=== PATIENT | female | born 1960 | race Caucasian/White ===

== ENCOUNTER 2017-06-11 21:09 | Emergency (ER) | payer MEDICAID, SELFPAY ==
[2017-06-11 21:12] VITALS: BP 141/75; PULSE 87; RESP 16; TEMP 37.1; O2SAT 95; BMI 35.2
--- NOTE | 2017-06-11 21:48 | ED.VISSUMM ---
- ER Visit Summary Date of Service: 06/11/17 Chief Complaint: [] Concern for allergic reaction History of Present Illness: The patient is a 56 F [] complaining of concern for allergic reaction to Lyrica for several days to weeks. Patient reports she takes it for fibromyalgia. She reports she is still taking it. She denies chest pain or difficulty swallowing. She has not intact tracheostomy tube that she reports has been in for 2 years. She is speaking full sentences. She has a bizarre affect. Physical Examination: [] Afebrile, vital signs stable. Morbidly obese female no acute distress. HEENT reveals moist mucous membranes without any oropharyngeal erythema or swelling. There is no rash or lesions around the neck or tracheostomy tube. Cardiovascular exam is regular rate and rhythm. Lungs are clear to auscultation. Abdomen is soft and nontender. Test Results: [] None. Emergency Department Course and Treatment: [] I encouraged the patient to discontinue Lyrica if she is concerned that she is allergic to it. She was given a albuterol and DuoNeb aerosol as well as an IM shot of Kenalog. I do not feel any diagnostic or laboratory testing was warranted and I encouraged the patient to follow-up with her primary care physician. Treatment Plan: [] See above. Disposition: [] Discharge, stable. Impression: [] Allergic reaction to medication This note was generated with [employer] dictation software. It may contain incorrect words, spelling, and punctuation that were not noted in review of the chart prior to signing ED Disposition - Plan for ED Patient: Chief Complaint: Allergic Reaction Referrals: Vivian Meyer MD [Primary Care Provider] -
--- NOTE | 2017-06-11 21:53 | ED.DEP ---
ED Disposition - Plan for ED Patient: Disposition: Home or Assisted Living Chief Complaint: Allergic Reaction Instructions: ED Drug React Allergic Referrals: Vivian Meyer MD [Primary Care Provider] -
[2017-06-11] MEDS: Triamcinolone Acetonide 40 MG/ML Vial 80 MG IM (21:58)
[2017-06-11] MEDS: Ipratropium/Albuterol Sulfate 3 ML AMPUL.NEB INHALATION (22:31)
[2017-06-11 22:32] VITALS: PULSE 80; RESP 18
[2017-06-11 22:45] VITALS: BP 115/64; PULSE 81; RESP 21; O2SAT 94
== END 2017-06-11 22:45 | disposition home or self-care (01) ==
PROVIDERS: Emergency Provider Emergency Medicine; Family Provider Internal Medicine; PCP Internal Medicine
DX: R06.00 Dyspnea, unspecified (principal); T42.6X5A Adverse effect of other antiepileptic and sedative-hypnotic drugs, initial encounter; Y92.9 Unspecified place or not applicable; M79.7 Fibromyalgia; E66.01 Morbid (severe) obesity due to excess calories; Z68.35 Body mass index [BMI] 35.0-35.9, adult; Z79.899 Other long term (current) drug therapy
CPT/HCPCS: 94640; 96372; 99282

== ENCOUNTER 2017-08-28 13:11 | Emergency (ER) | payer MEDICAID, SELFPAY ==
[2017-08-28 13:12] VITALS: BP 165/81; PULSE 93; RESP 18; TEMP 36.6; O2SAT 99; BMI 34.7
[2017-08-28 13:36] VITALS: BP 143/72; PULSE 88; RESP 14; O2SAT 95
[2017-08-28] MEDS: Albuterol 2.5 MG/3 ML VIAL.NEB. INHALATION (14:25)
[2017-08-28] MEDS: Ipratropium/Albuterol Sulfate 3 ML AMPUL.NEB INHALATION (14:25)
[2017-08-28 14:26] VITALS: PULSE 95; RESP 18
--- NOTE | 2017-08-28 14:46 | RAD_ITS ---
STUDY: X-RAY CHEST REASON FOR EXAM: Female, 56 years old. Persistent cough and wheezing. COPD. TECHNIQUE: PA and lateral views of the chest. COMPARISON: Comparison is made with prior study dated December 31, 2013. FINDINGS: There is mild elevation of the right hemidiaphragm. Stable blunting of the right costophrenic angle. No acute mouth is seen. There is no demonstrated pleural abnormality. Normal size heart. A loop recorder device is seen. Normal mediastinum and erick. Normal visualized pulmonary arteries. There is atherosclerotic tortuosity of the aortic arch and descending thoracic aorta. There is demineralization of the osseous structures. Increased kyphosis. Normal visualized ribs, clavicles, and shoulders. There is no demonstrated abnormality of the visualized soft tissue structures of the upper abdomen. RAD/Chest PA and Lateral IMPRESSION: No acute abnormality is seen. Electronically Signed: Joshua Cabral MD at 15:17 EDT Tel [phone], Service support ,
--- NOTE | 2017-08-28 15:25 | ED.VISSUMM ---
- ER Visit Summary Date of Service: 08/28/17 Chief Complaint: [cough, wheezing] History of Present Illness: The patient is a 56 F [that cough and wheezing for the last several weeks. She is currently on antibiotics from her [facility] physician. She had her tracheostomy removed 2 weeks ago. No difficulty breathing or shortness of breath. She denies any chest pain. No trach site drainage. She has a history of asthma and COPD. She appears well and in no acute distress. She has no other complaints.] Physical Examination: [General: The patient appears well and in no apparent distress. Patient is resting comfortably on cart. Skin: Warm, dry, no pallor noted. No rash. Head: Normocephalic, atraumatic Neck: Supple, nontender. ENT: Moist mucus membranes, pharynx within normal limits. Prior trach site benign. Cardiovascular: Regular Rate and Rhythm, no gallups or rubs Respiratory: Patient is in no distress, no accessory muscle use, lungs are clear to auscultation, no wheezing, rales or rhonchi Musculoskeletal: normal ROM, no deformity, no tenderness, no swelling. 2+ radial and DP pulses symmetric. GI: No tenderness to palpation, no masses appreciated. No rebound, guarding, or rigidity noted. Neurological: A&O, normal strength and sensation. Psychiatric: Cooperative] Test Results: [Chest x-ray no acute process] Emergency Department Course and Treatment: [She shows no acute process. She was ordered breathing treatments. She requested a decongestant and will be given a dose of Sudafed. I instructed her to finish her course of antibiotics and follow closely with her primary provider. I will write her a prescription for Mucinex. She was instructed to return with any new or worsening symptoms. Patient discharged home in stable condition.] Treatment Plan: [see above] Disposition: [discharge home] Impression: [URI, Cough] This note was generated with [employer] dictation software. It may contain incorrect words, spelling, and punctuation that were not noted in review of the chart prior to signing ED Disposition - Plan for ED Patient: Disposition: Home or Assisted Living Chief Complaint: Cold Sx Instructions: ED Upper Resp Infec Abx Tx Prescriptions: Guaifenesin [Mucinex] 600 mg PO BID #10 tab.er.12h Referrals: Vivian Meyer MD [Primary Care Provider] - Anthony Talavera MD [STAFF PHYSICIAN] -
[2017-08-28 15:37] VITALS: BP 145/77; PULSE 85; RESP 16
== END 2017-08-28 15:41 | disposition home or self-care (01) ==
PROVIDERS: Emergency Provider Emergency Medicine; Family Provider Internal Medicine; PCP Internal Medicine
DX: J06.9 Acute upper respiratory infection, unspecified (principal); J44.9 Chronic obstructive pulmonary disease, unspecified; Z87.891 Personal history of nicotine dependence
CPT/HCPCS: 71046; 94640; 99282

== ENCOUNTER → 2017-11-08 14:30 | Outpatient (CLI) | payer MEDICAID, SELFPAY | PROVIDERS: Family Provider Internal Medicine; PCP Internal Medicine; Visit Provider Internal Medicine Cardiovascular Disease | DX: Z01.810 Encounter for preprocedural cardiovascular examination (principal) | CPT/HCPCS: 93306; Q9957; A4216; C8929 ==

== ENCOUNTER 2017-12-04 06:42 | Day surgery (SDC) | payer MEDICAID, SELFPAY ==
[2017-11-28 15:16] VITALS: BP 140/64; PULSE 83; RESP 16; TEMP 36.5; O2SAT 95; BMI 36.3
[2017-11-28 17:50] LABS: Hematocrit 36.4 % (37-47); Hemoglobin 11.2 g/dl (12.0-15.0); Mean Corp Hgb Conc 30.8 g/gl (32-36); Mean Corpuscular Hgb 28.5 pg (27.0-32.0); Mean Corpuscular Volume 92.6 fL (81-99); Mean Platelet Vol. 10.4 fl (6.2-12.0); Platelet Count 187 K/mm3 (150-450); RBC Distribution Width CV 14.1 % (11.6-14.6); RBC Distribution Width SD 46.4 fl (35.1-43.9); Red Blood Count 3.93 M/mm3 (4.2-5.4); White Blood Count 6.4 K/mm3 (4.4-11.0)
[2017-11-28 17:52] LABS: Scan Indicated on CBC? Y/N NO
[2017-11-28 18:09] LABS: Anion Gap 8 (5-15); BUN 13 mg/dL (7-18); BUN/Creat Ratio 12.4 RATIO (10-20); Calcium,Total 8.7 mg/dL (8.5-10.1); Chloride 107 mmol/L (98-107); Creatinine, Serum 1.05 mg/dL (0.55-1.02); EST Glomerular Filtration Rate 57 mL/min (>60); Est Glom Filt Rate - Afr Amer 69 mL/min (>60); Estimated Creatinine Clearance 51.91 ml/min; Glucose 218 mg/dL (74-106); Potassium 3.9 mmol/L (3.5-5.1); Sodium Level 141 mmol/L (136-145)
--- NOTE | 2017-12-04 06:53 | EKG12_ITS ---
Test Reason : PREOP Blood Pressure : / mmHG Vent. Rate : 079 BPM Atrial Rate : 079 BPM P-R Int : 176 ms QRS Dur : 128 ms QT Int : 414 ms P-R-T Axes : 040 000 018 degrees QTc Int : 474 ms Normal sinus rhythm Right bundle branch block Abnormal ECG When compared with ECG of 16-NOV-2016 20:45, Right bundle branch block is now Present Confirmed by ELVA BLACKWELL, EVENS ([id number]), desk editor ABHISHEK GONZALES ([id number]) on 12/05/2017 2:58:56 PM Referred By: Anthony Talavera Confirmed By:EVENS STEVENSON MD
[2017-12-04 07:16] LABS: Bedside Glucose 333 mg/dL (70-110)
[2017-12-04 07:22] VITALS: BP 150/70; PULSE 81; RESP 16; TEMP 36.6; O2SAT 95; BMI 35.3
--- NOTE | 2017-12-04 09:15 | FIST_PTH ---
PATIENT: CHRISTOPHER HOBSON LOC: [facility] [place] U#:[id number] AGE/SX: 57/F ROOM: RE12/04/[address]: Dr. Anthony Talavera MD : [id number] BED: DIS: 12/04/2017 SPEC #: [id number] RECD: 12/04/17 12:36 STATUS: INA REBrittany #: [id number] PARADISE: 12/04/17 09:[address]: Anthony Talavera DEPT: SURGICAL PATHOLOGY RECD BY: Cristopher Goodson ENTERED: 12/04/17 12:54 SP TYPE: Fistula OTHR DR: Dr. 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 SJ:herman 12/05/17 MICROSCOPIC DESCRIPTION Slides are reviewed. GROSS DESCRIPTION Received in fixative is one container labeled with the patient's name and designated tracheocutaneous fistula. The specimen consists of a piece of pink soft tissue measuring 1.5 x 1 x 0.5 cm. The specimen is serially sectioned and submitted entirely in one cassette. / SJ:rg 12/04/17 TC:3 CPT: 58882
--- NOTE | 2017-12-04 11:37 | DCINST_ITS ---
You will use the following diet at home:: Regular Discharge Activity: May Shower Additional Activity Instructions:: Follow up tomorrow with Dr. Talavera for dressing removal. Keep dressing dry Allergies/Adverse Reactions: Allergies azithromycin Allergy (Verified 11/28/17 14:47) Rash Cephalosporins Allergy (Verified 11/28/17 14:47) Rash codeine Allergy (Verified 11/28/17 14:47) Rash diclofenac [Diclofenac] Allergy (Verified 11/28/17 14:47) Rash hydrocodone bitartrate [From Vicodin] Allergy (Verified 11/28/17 14:47) Rash hydromorphone HCl [From Dilaudid] Allergy (Verified 11/28/17 14:47) Rash Opioids - Morphine Analogues Allergy (Verified 11/28/17 14:47) Rash Penicillins Allergy (Verified 11/28/17 14:47) Anaphylaxis Sulfa (Sulfonamide Antibiotics) Allergy (Verified 11/28/17 14:47) Rash cherries Allergy (Uncoded 11/28/17 14:47) Angioedema philomena Allergy (Uncoded 11/28/17 14:47) Angioedema pears Adverse Reaction (Uncoded 11/28/17 14:47) Unknown soap Adverse Reaction (Uncoded 11/28/17 14:47) Unknown patient states i cannot use hand soap. I have to use body soap. Medications to take at Discharge Topiramate [Topamax] 100 mg PO BID 03/01/17 Guaifenesin [Mucinex] 600 mg PO BID #10 tab.er.12h 08/28/17 hydrocortisone 2.5 % topical cream 1 applic TOPICAL DAILY 30 Days #30 10/31/17 insulin glargine (U-100) 100 unit/mL (3 mL) subcutaneous pen 17 unit SC QHS 10/31/17 ipratropium-albuterol 0.5 mg-3 mg(2.5 mg base)/3 mL nebulization soln 3 ml INHALATION 4X/DAY 10/31/17 magnesium 64 mg (magnesium chloride) tablet,delayed release 64 mg PO BID 30 Days #60 10/31/17 thiothixene 2 mg capsule 2 mg PO DAILY 30 Days #30 10/31/17 trazodone 100 mg tablet 300 mg PO QHS 30 Days #90 10/31/17 glimepiride 4 mg tablet 4 mg PO DAILY 30 Days #30 11/01/17 Amitriptyline HCl [Elavil] 25 mg PO QHS 11/28/17 Melatonin/Pyridoxine [Melatonin 5 mg Tablet] 2 each PO QHS 11/28/17 Omeprazole [Prilosec] 20 mg PO DAILY 12/04/17 Primary Care Physician: Vivian Meyer MD [Primary Care Provider] - Test Results: Test results from this visit will be discussed in further detail at your follow- up appointment, if applicable.
[2017-12-04 11:38] VITALS: BP 150/70; BP 155/78; PULSE 107; RESP 16; TEMP 37; O2SAT 98
--- NOTE | 2017-12-04 11:43 | PCM.OPRPT ---
Report of Operation Date of Procedure: 12/04/17 Pre-Operative Diagnosis: tracheocutaneous fistula Post-Operative Diagnosis: same Surgery/Procedure Performed:: Closure tracheocutaneous fistula Description of Surgical Findings:: as above Type of Anesthesia:: General Anesthesiologist: Solo Sandoval Specimen's removed: fistula Drains: vascular loop Estimated Blood Loss (mL): minimal Description of Procedure: The patient was taken to the OR on 12/04/17. She was placed in the supine position on the OR table. She was given sufficient general endotracheal anesthesia. The neck was extended. The skin of the neck and stoma were prepped and draped steriley. 1% lidocaine with epinephrine (1:[id number]). was injected into the tissue around the skin. I then had anesthesia deflate the balloon to verify that ventilation with a deflated cuff caused air to leak from the stoma. This was indeed the case. Next, I made an elliptical incision with a 15 blade in a horizontal fashion. The incision as carried down through the skin. Hemostasis was achieved with monopolar cautery. I then used cautery and sharp dissection to establish a plane around the fistula tract. The tract was controlled with allis clamps and eventually the dissection was carried down to the front face of the trachea. Next, I dissected out the left and right strap muscles. The right strap muscles were much easier to skeletonize secondary to scarring. I also dissected scar and adipose in a plane superficial to the straps. Then, I placed 3, 3-0 silk retention sutures on the outer aspect of the fistula. Next, I placed a bowen tip suction through fistula and onto the endotracheal tube. The fistula tract was excised superficial to the retention sutures with a 15 blade. I then used 4-0 PDS suture to close the fistula. This was done in an interrupted, vertical mattress fashion to imbricate the lining toward the trachea. Once this was completed, I filled the wound with saline. We closed the patients mouth and nose and hand bagged (ventilated) the patient to a pressure of 30 cm of H2O. No bubbles were visualized in the wound. We repeated this and again saw no bubbles in the wound. Next, I swung the strap flaps medial and tacked them together with interrupted 4-0 vicryl. The retention sutures were removed. The leak test was then repeated with saline in the wound and again there were no bubbles visualized. I then closed the adipose over the midline with 4-0 vicryl. I placed a vascular loop beneath the adipose layer. The subcutaneous tissue was closed with 4-0 vicryl. The skin was closed with 5-0 interrupted Nylon. The drain was sewn to the skin with the nylon. A pressure dressing was applied. The patient was awoken and brought to the recovery room in stable condition. Blood loss minimal, replacement none. Sponge, needle and instrument count were correct at the end of the procedure.
[2017-12-04 11:45] VITALS: BP 150/70; BP 160/86; PULSE 103; RESP 16; O2SAT 96
[2017-12-04 11:57] VITALS: BP 150/70; BP 151/77; PULSE 102; RESP 16; TEMP 36.9; O2SAT 92
[2017-12-04 12:11] LABS: Bedside Glucose 285 mg/dL (70-110)
[2017-12-04 12:30] LABS: Bedside Glucose 267 mg/dL (70-110)
[2017-12-04 12:39] VITALS: BP 148/78; BP 150/70; PULSE 78; RESP 18; TEMP 36.6; O2SAT 97
== END 2017-12-04 12:45 | disposition home or self-care (01) ==
LOC: SDC 06:43 → AC 06:43
PROVIDERS: Family Provider Internal Medicine; PCP Internal Medicine; Visit Provider Otolaryngology
PROC: (CPT 31825; principal; 2017-12-04 09:00)
DX: J95.04 Tracheo-esophageal fistula following tracheostomy (principal); I10 Essential (primary) hypertension; E78.00 Pure hypercholesterolemia, unspecified; F20.9 Schizophrenia, unspecified; K21.9 Gastro-esophageal reflux disease without esophagitis; E11.9 Type 2 diabetes mellitus without complications; Z95.0 Presence of cardiac pacemaker; Z79.4 Long term (current) use of insulin; Z79.899 Other long term (current) drug therapy; Z87.891 Personal history of nicotine dependence
CPT/HCPCS: 31825; 36415; 80048; 82962; 85027; 88304; 93005; J7120; J2405

== ENCOUNTER → 2017-12-11 18:13 | Outpatient (CLI) | payer MEDICAID, SELFPAY | PROVIDERS: Family Provider Internal Medicine; PCP Internal Medicine; Referring Provider Otolaryngology Otolaryngology/Facial Plastic Surgery; Visit Provider Otolaryngology Otolaryngology/Facial Plastic Surgery | DX: J95.09 Other tracheostomy complication (principal) | CPT/HCPCS: 87070; 87186 ==

== ENCOUNTER → 2018-01-10 13:42 | Outpatient (CLI) | payer MEDICAID, SELFPAY ==
[2018-01-10 14:50] LABS: Amphetamine Urine VISTA NEGATIVE (<1000 ng/mL); Barbiturate Urine VISTA NEGATIVE (< 200 ng/mL); Benzodiazepine Urine VISTA NEGATIVE (< 200 ng/mL); Cocaine Urine VISTA NEGATIVE (< 300 ng/mL); Ecstacy Urine VISTA NEGATIVE (< 500 ng/mL); Methadone Urine VISTA NEGATIVE (< 300 ng/mL); PCP Urine VISTA NEGATIVE (< 25 ng/mL); THC Urine VISTA NEGATIVE (< 50 ng/mL); Vista UDS pH Range 6
== END ==
PROVIDERS: Family Provider Internal Medicine; PCP Internal Medicine; Referring Provider Anesthesiology Pain Medicine; Visit Provider Anesthesiology Pain Medicine
DX: F11.20 Opioid dependence, uncomplicated (principal)
CPT/HCPCS: 80307

== ENCOUNTER → 2018-02-22 20:00 | Outpatient (CLI) | payer MEDICAID, SELFPAY | PROVIDERS: Family Provider Internal Medicine; PCP Internal Medicine; Referring Provider Internal Medicine Pulmonary Disease; Visit Provider Internal Medicine Pulmonary Disease | DX: G47.33 Obstructive sleep apnea (adult) (pediatric) (principal) | CPT/HCPCS: 95811 ==

== ENCOUNTER → 2018-03-07 10:52 | Outpatient (CLI) | payer MEDICAID, SELFPAY ==
--- NOTE | 2018-03-07 11:30 | MRI_ITS ---
STUDY: MRI LUMBAR SPINE WITHOUT CONTRAST REASON FOR EXAM: Female, 57 years old. Back and leg pain. Pain all over x5-6 years. TECHNIQUE: Standardized fat and water weighted pulse sequences were obtained in the sagittal and axial planes. COMPARISON: CT abdomen and pelvis with contrast 09/19/2016. FINDINGS: T11-T12: (Sagittal only). Minimal anterior marginal spurs. Normal endplates. Mild disc space height narrowing. Tiny posterior bulging disc. Normal central canal and bilateral intervertebral neural foramina. T12-L1: (Sagittal only). Normal endplates. Normal disc height, hydration and morphology. Normal central canal and bilateral intervertebral neural foramina. Normal lumbar lordosis. There is no substantial scoliosis. Normal conus medullaris that terminates at the T12-L1 disc level. L1-2: Normal endplates. Normal disc height, hydration and morphology. Normal bilateral facet joints. Normal central canal and bilateral lateral recesses. Normal bilateral intervertebral neural foramina. L2-3: Normal endplates. Normal disc height and morphology. Small posterior bulging disc. Normal central canal and bilateral lateral recesses. Normal facet joints. Normal bilateral intervertebral neural foramina. L3-4: Normal endplates. Normal disc height, hydration and morphology. Normal bilateral facet joints. Normal central canal and bilateral lateral recesses. Normal bilateral intervertebral neural foramina. Bilateral renal cysts are visible at this level. L4-5: Normal endplates. Normal disc height. Small posterior bulging disc. Normal central canal and bilateral lateral recesses. Normal facet joints. Normal bilateral intervertebral neural foramina. L5-S1: Normal endplates. Mild disc space height narrowing. Small posterior bulging disc. Normal central canal and bilateral lateral recesses. Normal facet joints. Normal bilateral intervertebral neural foramina. Normal visualized sacral ala. Normal visualized paraspinous soft tissue structures. MRI/Spine Lumbar (Routine) IMPRESSION: 1. No MRI evidence of lumbar extruded disc fragment, spinal stenosis or nerve root displacement. 2. Small posterior bulging discs at T11-T12, L2-L3, L4-L5 and L5-S1 disc space levels. 3. No significant interval changes when compared to CT of the abdomen and pelvis dated 09/19/2016. Electronically Signed: Addi Collazo MD at 12:23 EST , Service support ,
--- OUTSIDE RECORDS SUMMARY | 2018-05-24 22:26 | XMS RPT_ITS ---
:1960 Author Organization OHIP Support Name Relationship Address Phone D Unavailable Unavailable Unavailable JOCE ALPHONSO Unavailable [id number] + [place] [address] D Unavailable Unavailable Unavailable JOCE ALPHONSO Unavailable [address] + [place] [address] D Unavailable Unavailable Unavailable JOCE, ALPHONSO Unavailable [address] +[phone] [place] [address] D Unavailable Unavailable Unavailable JOCE, ALPHONSO Unavailable [address] + [place] [address] D Unavailable Unavailable Unavailable JOCE, ALPHONSO Unavailable [address] + [place] [address] D Unavailable Unavailable Unavailable JOCE, ALPHONSO Unavailable [address] + [place] [address] D Unavailable Unavailable Unavailable JOCE, ALPHONSO Unavailable [address] + [place] [address] D Unavailable Unavailable Unavailable JOCE, ALPHONSO Unavailable [address] + [place] [address] D Unavailable Unavailable Unavailable JOCE, ALPHONSO Unavailable [address] + [place] [address] D Unavailable Unavailable Unavailable JOCE, ALPHONSO Unavailable [address] + [place] [address] D Unavailable Unavailable Unavailable JOCE, ALPHONSO Unavailable [address] + [place] [address] D Unavailable Unavailable Unavailable JOCE, ALPHONSO Unavailable [address] + [place] [address] D Unavailable Unavailable Unavailable JOCE, ALPHONSO Unavailable [address] + [place] [address] D Unavailable Unavailable Unavailable JOCE, ALPHONSO Unavailable [address] + [place] [address] Care Team Providers Name Role Phone Kg Smalls Attending Unavailable Kg Smalls Referring Unavailable Talampas, Tiff Primary Care Unavailable Basali, Bethanie Attending Unavailable Basali, Ayman Referring Unavailable Talampas, Tiff Primary Care Unavailable Elisabeth Chapman Attending Unavailable Talampas, Tiff Referring Unavailable Talampas, Tiff Primary Care Unavailable Carla Delcid Attending Unavailable Talampas, Tiff Primary Care Unavailable Markus Vega Attending Unavailable Gemini Ramirez Attending Unavailable Spring, Braden Attending Unavailable Talampas, Tiff Referring Unavailable Talampas, Tiff Primary Care Unavailable Spring, Braden Attending Unavailable Spring, Braden Referring Unavailable Talampas, Tiff Primary Care Unavailable Elisabeth Chapman Attending Unavailable Talampas, Tiff Referring Unavailable Talampas, Tiff Primary Care Unavailable SadafAnthony navarro Attending Unavailable Sadaf, Anthony Referring Unavailable Talampas, Tiff Primary Care Unavailable Spring, Braden Attending Unavailable Spring, Braden Referring Unavailable Sadaf, Keyur Attending Unavailable Talampas, Tiff Primary Care Unavailable SadafTenzinun Referring Unavailable BasaliBethanie Attending Unavailable Basali, Ayman Referring Unavailable Talampas, Tiff Primary Care Unavailable Spring, Braden Attending Unavailable Sadaf, Anthony Referring Unavailable KAREL MCNAIR ([place]) Referring Unavailable TARAKJIPROMISE Referring Unavailable SHANT ODELL Referring Unavailable SHEILA MATTHEW (HEAD MILLER) Attending Unavailable SHEILA MATTHEW (HEAD MILLER) Referring Unavailable KG ALVAREZ R Attending Unavailable KG ALVAREZ R Referring Unavailable GILDEKG Tafoya R Attending Unavailable WANDADEKG Tafoya R Referring Unavailable TALAMPAS, TIFF D Attending Unavailable OLDERSHEILA ([facility]) Attending Unavailable SHANT ODELL Referring Unavailable KG SMALLS Attending Unavailable KG SMALLS Referring Unavailable OLDERSHEILA (HEAD M[employer]ER) Attending Unavailable TALAMPAS, TIFF D Referring Unavailable TALAMPAS, TIFF D Referring Unavailable TALAMPAS, TIFF D Referring Unavailable TALAMPAS, TIFF D Referring Unavailable SUZANNA ESCALANTE Attending Unavailable SHEILA MATTHEW ([facility]) Referring Unavailable DEVEN QUINTANA Referring Unavailable MARBIN GRIMES ([facility]) Attending Unavailable TALAMPAS, TIFF D Attending Unavailable TIFF PEARSON Referring Unavailable FORTINO BARTHOLOMEW (PA) Referring Unavailable KG SMALLS Attending Unavailable FORTINO BARTHOLOMEW (PA) Referring Unavailable KG SMALLS Referring Unavailable SHANT ODELL Referring Unavailable PROBLEMS PROBLEMS DATE TYPE CONDITION / CODE ATTENDING STATUS SOURCE 02/01/2018 Active Chronic obstructive NA Active [facility] pulmonary disease, Clinic Main unspecified / [place] J44.9(ICD-10) Repository 01/29/2018 Unknown F11.20 - Opioid Basali, Ayman Active [facility] dependence, Community uncomplicated / Hospital F11.20(ICD-10) Repository 12/20/2017 Active Unknown / UNK(Unknown) TESTRAKE, Active [facility] Main [place] Repository 01/12/2018 Unknown I45.10 - Unspecified [place], [place] Active [facility] right bundle-branch Community block / I45.10(ICD-10) Hospital Repository 01/12/2018 Unknown R94.31 - Abnormal [place], [place] Active [facility] electrocardiogram Community [ECG] [EKG] / Hospital R94.31(ICD-10) Repository 11/15/2017 Active Mastodynia / NA Active [facility] N64.4(ICD-10) Clinic Main [place] Repository 11/14/2017 Active 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 Clinic Main / Z79.899(ICD-10) [place] Repository 11/14/2017 Active Abnormal level of NA Active [facility] blood mineral / Clinic Main R79.0(ICD-10) [place] Repository 11/01/2017 Unknown Z01.810 - Encounter [place], [place] Active [facility] for preprocedural [facility] cardiovascular Hospital examination / Repository Z01.810(ICD-10) 11/01/2017 Unknown Z95.0 - Presence of [place], [place] Active [facility] cardiac pacemaker / Community Z95.0(ICD-10) Hospital Repository 06/14/2017 Active Localized swelling, NA Active [facility] mass and lump, neck / Clinic Main R22.1(ICD-10) [place] Repository 07/06/2017 Unknown T42.6X5A - Adverse Ahmed, Rami Active [facility] effect of other Community antiepileptic and Hospital sedative-hypnotic Repository drugs, initial encounter / T42.6X5A(ICD-10) 06/02/2017 Active Encounter for NA Active [facility] examination for normal [facility] Main [facility] and control [place] in clinical research Repository program / Z00.6(ICD-10) PROCEDURES PROCEDURES No Procedure Records FoundRESULTS RESULTS OBSOLETE Observed: 03/21/2018 Status: COMPLETED Source: [place] 12:00 AM [facility] REPOSITORY Refill (INTMWS) CHRISTOPHER HOBSON ([id number]) 1960 F CHT Date Time Provider Department 03/21/18 TIFF PEARSON INTMWS During your visit today, we recorded the following information about you: Evelia Davison Psr 03/21/2018 1:40 PM Signed Patient has been identified by name and date of : Yes Pending Prescriptions Disp Refills GUAIFENESIN ER 600 MG TABLET, EXTENDED RELEASE 12 HR 60 tablet 1 Sig: Take by mouth twice daily. NUBIA: No RX INSTRUCTIONS: Patient aware RX will be sent to pharmacy. No need to notify patient. Evelia Davison Psr Susan Rosas RN 03/21/2018 1:56 PM Signed Patient has been identified by name and date of : Yes Patient phones for refill(s): Pending Prescriptions Disp Refills GUAIFENESIN ER 600 MG TABLET, EXTENDED RELEASE 12 HR 60 tablet 1 Sig: Take by mouth twice daily. NUBIA: No Date of last office visit in primary care: 01/24/18, future appt. 04/30/18 Last 2 Encounter Wt Readings: Date: Wt: 02/01/2018 100.7 kg (222 lb) 02/01/2018 99.8 kg (220 lb) Previous labs/tests for medication: Blood Pressure: BUN (mg/dL) Date Value 07/24/2017 13 Sodium (mmol/L) Date Value 07/24/2017 136 Last 1 Encounter BP Readings: Date: BP: 02/01/2018 132/68 Please advise. Thank you. Susan Pearson MD 03/21/2018 6:06 PM Signed lisa Murcia LPN 03/22/2018 9:14 AM Signed The following approved medication requests have been transmitted electronically. Signed Prescriptions Disp Refills guaiFENesin (MUCINEX) 600 mg 12 hr tablet 60 tablet 1 Sig: Take 1 tablet by mouth twice daily. NUBIA: No Authorizing Provider: TIFF PEARSON LPN Allergies As of Date: 03/21/2018 Noted Allergy Reaction CEPHALOSPORINS 04/03/2003 Comments: itching Cherries [Other] 04/03/2003 Comments: angioedema and tongue blisters CIPROFLOXACIN 09/11/2016 10 - Anaphylaxis Comments: It was used with flagyl at the same time so uknown which is the cause CODEINE 04/03/2003 Comments: rash swelling DICLOFENAC 08/28/2003 Comments: rash DILAUDID (HYDROMORPHONE (BULK)) 06/10/2015 9 - Itching FLAGYL (METRONIDAZOLE HCL) 09/11/2016 10 - Anaphylaxis Comments: It was used with flagyl at the same time so uknown which is the cause Philomena [Other] 04/03/2003 Comments: angioedematous tongue and blisters LYRICA (PREGABALIN) 07/04/2017 7 - Swelling OPIOIDS - MORPHINE ANALOGUES 08/28/2003 Comments: rash Pears [Other] 10/09/2003 PENICILLINS 04/03/2003 10 - Anaphylaxis Comments: ?anaphylaxis, patient tolerates zosyn PERCOCET (OXYCODONE-ACETAMINOPHEN)08/13/2004 9 - Itching SOAP 05/30/2006 VICODIN (HYDROCODONE-ACETAMINOPHE*05/21/2009 2 - Rash ZITHROMAX (AZITHROMYCIN) 03/24/2016 2 - Rash Date Reviewed: 02/08/2018 Reviewed by: Kg Smalls - Fully Assessed Reason for Visit: Refill Request [94] Order(s):guaiFENesin (MUCINEX) 600 mg 12 hr tabletTake 1 tablet by mouth twice daily.Disp: 60 tabletRfl: 1 Prescriptions as of 03/21/2018 Sig: GUAIFENESIN ER 600 MG TABLET,* Take 1 tablet by mouth twice * METRONIDAZOLE 500 MG TABLET Take 1 tablet by mouth three * COMPOUNDED PRESCRIPTION Diagnostic Polysomnogram. Luna* TAPENTADOL 75 MG TABLET Taking 1 twice a day per Dr B* COMPOUNDED PRESCRIPTION Overnight continuous pulse ox* GLIMEPIRIDE 4 MG TABLET Take 1 tablet by mouth daily * INSULIN GLARGINE (U-100) 100 * Inject 17 Units subcutaneousl* COMPOUNDED PRESCRIPTION Patient is to wear 2 L supple* COMPOUNDED PRESCRIPTION Provide nebulizer kit and becky* AMMONIUM LACTATE 12 % LOTION Apply 1 application to affect* LANCETS Test blood sugar(s) 4 times d* MOMETASONE-FORMOTEROL HFA 200* Inhale 2 Puffs as instructed * MAGNESIUM 71.5 MG (MAGNESIUM * Take 1 tablet by mouth twice * COMPOUNDED PRESCRIPTION Nocturnal oximetry on 2 L. DM* IPRATROPIUM-ALBUTEROL 0.5 MG-* Inhale 3 mL as instructed fou* HYDROCORTISONE 2.5 % TOPICAL * Apply 1 application to affect* TRIAMCINOLONE ACETONIDE 0.1 %* Apply 1 application to affect* ATORVASTATIN 40 MG TABLET Take 1 tablet by mouth once d* BLOOD SUGAR DIAGNOSTIC STRIPS Test blood sugar(s) 4 times d* PEN NEEDLE, DIABETIC 31 GAUGE* Use one needle per dose (Lant* OMEPRAZOLE 20 MG CAPSULE,DARREN* Take 1 capsule by mouth daily* ADHESIVE TAPE 2 X 10 YARD Use for dressings for healing* GUAIFENESIN ER 600 MG TABLET,* Take 1 tablet by mouth twice * MICONAZOLE NITRATE 2 % TOPICA* Apply 1 application to affect* BLOOD SUGAR DIAGNOSTIC STRIPS Test blood sugar(s) 4 times d* ALCOHOL SWABS Test blood sugars 4 x's daily* TRAZODONE 100 MG TABLET Take 3 tablets by mouth daily* TOPIRAMATE 100 MG TABLET Take 1 tablet by mouth once d* MELATONIN 3 MG TABLET Take 2 tablets by mouth daily* THIOTHIXENE 2 MG CAPSULE Take 1 capsule by mouth daily* VRAYLAR 3 MG CAPSULE Take 3 mg by mouth daily at b* WHITE PETROLATUM-MINERAL OIL * Apply 1 application to affect* TRIAMCINOLONE ACETONIDE 0.1 %* Apply 1 application to affect* SODIUM CHLORIDE 0.65 % NASAL * Use 1 [place] in the nose as ne* LUBRICANTS TOPICAL GEL Apply 1 application to affect* Problem List As Of Date 03/21/2018 Noted Resolved SCHIZOPHRENIA NEC [295.8] INVALID FOR* More... More... More... Tobacco use disorder [F17.200] INVALID FOR*11/18/2011 More... Routine general medical examination at a health*INVALID FOR*02/25/2013 More... MACULAR DEGENERATION NOS [H35.30] INVALID FOR* More... Diabetes mellitus type 2, uncontrolled, without*INVALID FOR* More... Class 2 obesity due to excess calories with bod*INVALID FOR*11/08/2016 More... More... Hyperlipidemia [E78.5] INVALID FOR* More... Sleep Apnea [G47.30] INVALID FOR* More... Asthma [J45.909] More... Ventral hernia [K43.9] INVALID FOR* Acute postoperative respiratory insufficiency [*INVALID FOR*07/19/2016 More... More... Electrolyte and fluid disorder [E87.8] INVALID FOR*03/03/2015 More... More... More... More... More... More... Septic shock due to Escherichia coli (HCC) [A41*INVALID FOR*07/19/2016 More... Altered mental status [R41.82] INVALID FOR*12/09/2015 More... Hyperbilirubinemia [E80.6] INVALID FOR*03/08/2015 More... Hypernatremia [E87.0] INVALID FOR*03/14/2015 More... More... More... Electrolyte imbalance [E87.8] INVALID FOR*07/19/2016 More... More... Metabolic acidosis [E87.2] INVALID FOR*03/19/2015 More... Acute kidney injury (HCC) [N17.9] INVALID FOR*03/19/2015 More... Small intestinal anastomotic leak [K91.89] INVALID FOR* More... Hypernatremia [E87.0] INVALID FOR*03/19/2015 More... 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 Medications Discontinued During This Encounter MUCINEX 600 mg 12 hr tablet 60 t* 1 01/09/2018 03/21/2018 Route: ORAL Sig: Take 1 tablet by mouth twice daily. Disc: Reason for discontinue is not on file. Encounter Status:Closed by ARTURO MURCIA LPN on 03/22/18 SPINE LUMBAR Observed: 03/07/2018 Status: F Source: [place] (ROUTINE) 11:13 AM [facility] REPOSITORY [facility] Imaging Services [address] [place] [id number] Spine Lumbar (Routine) MR#: [id number] Acct: [id number] Name: JOCECHRISTOPHER Michelet Rep #: [id number] : 1960 F 57 From: Addi Collazo MD PCP: Mitch BLACKWELL,Tiff Status: REG CLI Study: Spine Lumbar (Routine) Date of Exam: 03/07/18 Exam# [id number] Ordering Dr: Bethanie Trevizo MD STUDY: MRI LUMBAR SPINE WITHOUT CONTRAST REASON FOR EXAM: Female, 57 years old. Back and leg pain. Pain all over x5-6 years. TECHNIQUE: Standardized fat and water weighted pulse sequences were obtained in the sagittal and axial planes. COMPARISON: CT abdomen and pelvis with contrast 09/19/2016. FINDINGS: T11-T12: (Sagittal only). Minimal anterior marginal spurs. Normal endplates. Mild disc space height narrowing. Tiny posterior bulging disc. Normal central canal and bilateral intervertebral neural foramina. T12-L1: (Sagittal only). Normal endplates. Normal disc height, hydration and morphology. Normal central canal and bilateral intervertebral neural foramina. Normal lumbar lordosis. There is no substantial scoliosis. Normal conus medullaris that terminates at the T12-L1 disc level. L1-2: Normal endplates. Normal disc height, hydration and morphology. Normal bilateral facet joints. Normal central canal and bilateral lateral recesses. Normal bilateral intervertebral neural foramina. L2-3: Normal endplates. Normal disc height and morphology. Small posterior bulging disc. Normal central canal and bilateral lateral recesses. Normal facet joints. Normal bilateral intervertebral neural foramina. L3-4: Normal endplates. Normal disc height, hydration and morphology. Normal bilateral facet joints. Normal central canal and bilateral lateral recesses. Normal bilateral intervertebral neural foramina. Bilateral renal cysts are visible at this level. L4-5: Normal endplates. Normal disc height. Small posterior bulging disc. Normal central canal and bilateral lateral recesses. Normal facet joints. Normal bilateral intervertebral neural foramina. L5-S1: Normal endplates. Mild disc space height narrowing. Small posterior bulging disc. Normal central canal and bilateral lateral recesses. Normal facet joints. Normal bilateral intervertebral neural foramina. Normal visualized sacral ala. Normal visualized paraspinous soft tissue structures. MRI/Spine Lumbar (Routine) IMPRESSION: 1. No MRI evidence of lumbar extruded disc fragment, spinal stenosis or nerve root displacement. 2. Small posterior bulging discs at T11-T12, L2-L3, L4-L5 and L5-S1 disc space levels. 3. No significant interval changes when compared to CT of the abdomen and pelvis dated 09/19/2016. Electronically Signed: Addi Collazo MD at 12:23 EST , Service support , CC: Bethanie Trevizo MD; Tiff Pearson MD [employer] Machine Helper: Signed PING Observed: 02/23/2018 Status: COMPLETED Source: [place] 12:00 AM [facility] REPOSITORY Telephone (PULMWS) CHRISTOPHER HOBSON ([id number]) 1960 F T Date Time Provider Department 02/23/18 KG SMALLSWS During your visit today, we recorded the following information about you: Susan Forbes Ma 02/23/2018 11:36 AM Signed Pt's calling to report that pt had sleep study last night and they were told that it was abnormal. He is concerned that she will need Cpap machine CHOLO. Advised that we would route message to provider and nurse and they would contact them to let them know what the next step is. Susan Franklin LPN 02/23/2018 2:14 PM Signed Spoke at length to . Study not yet read, no information available in [facility]. Patient on speakerphone during conversation, it seems that she was never optimized (a split night was attempted) and would need to return for a PAP titration study. Explained to that until PAP titration takes place and her numbers are normalized, we cannot order any PAP for the patient. Patient also told during our phone conversation the nurse told me there that I would need to come back. No further questions at this time. Kendra Forbes Ma 02/28/2018 1:36 PM Signed Pt's calling back to report that he has still not gotten the results of his 's sleep study. Very frustrated. Explained that the [facility] nurse did speak to him Monday (the day after the sleep study) and explained that the results were still pending and that PAP titration would need to be done. did not seem to understand and would like another call back from [facility] nurse. Susan Franklin LPN 03/01/2018 8:35 AM Signed Results still not available in [facility]. Will contact sleep lab. Kendra Franklin LPN Allergies As of Date: 02/23/2018 Noted Allergy Reaction CEPHALOSPORINS 04/03/2003 Comments: itching Cherries [Other] 04/03/2003 Comments: angioedema and tongue blisters CIPROFLOXACIN 09/11/2016 10 - Anaphylaxis Comments: It was used with flagyl at the same time so uknown which is the cause CODEINE 04/03/2003 Comments: rash swelling DICLOFENAC 08/28/2003 Comments: rash DILAUDID (HYDROMORPHONE (BULK)) 06/10/2015 9 - Itching FLAGYL (METRONIDAZOLE HCL) 09/11/2016 10 - Anaphylaxis Comments: It was used with flagyl at the same time so uknown which is the cause Philomena [Other] 04/03/2003 Comments: angioedematous tongue and blisters LYRICA (PREGABALIN) 07/04/2017 7 - Swelling OPIOIDS - MORPHINE ANALOGUES 08/28/2003 Comments: rash Pears [Other] 10/09/2003 PENICILLINS 04/03/2003 10 - Anaphylaxis Comments: ?anaphylaxis, patient tolerates zosyn PERCOCET (OXYCODONE-ACETAMINOPHEN)08/13/2004 9 - Itching SOAP 05/30/2006 VICODIN (HYDROCODONE-ACETAMINOPHE*05/21/2009 2 - Rash ZITHROMAX (AZITHROMYCIN) 03/24/2016 2 - Rash Date Reviewed: 02/08/2018 Reviewed by: Kg Smalls - Fully Assessed Reason for Visit: Patient Update [1234] Prescriptions as of 02/23/2018 Sig: ADHESIVE TAPE 2 X 10 YARD Use for dressings for healing* ALCOHOL SWABS Test blood sugars 4 x's daily* AMMONIUM LACTATE 12 % LOTION Apply 1 application to affect* ATORVASTATIN 40 MG TABLET Take 1 tablet by mouth once d* BLOOD SUGAR DIAGNOSTIC STRIPS Test blood sugar(s) 4 times d* BLOOD SUGAR DIAGNOSTIC STRIPS Test blood sugar(s) 4 times d* COMPOUNDED PRESCRIPTION Nocturnal oximetry on 2 L. DM* COMPOUNDED PRESCRIPTION Patient is to wear 2 L supple* COMPOUNDED PRESCRIPTION Provide nebulizer kit and becky* COMPOUNDED PRESCRIPTION Overnight continuous pulse ox* COMPOUNDED PRESCRIPTION Diagnostic Polysomnogram. Luna* GLIMEPIRIDE 4 MG TABLET Take 1 tablet by mouth daily * GUAIFENESIN ER 600 MG TABLET,* Take 1 tablet by mouth twice * HYDROCORTISONE 2.5 % TOPICAL * Apply 1 application to affect* INSULIN GLARGINE (U-100) 100 * Inject 17 Units subcutaneousl* PEN NEEDLE, DIABETIC 31 GAUGE* Use one needle per dose (Lant* IPRATROPIUM-ALBUTEROL 0.5 MG-* Inhale 3 mL as instructed fou* LANCETS Test blood sugar(s) 4 times d* LUBRICANTS TOPICAL GEL Apply 1 application to affect* MAGNESIUM 71.5 MG (MAGNESIUM * Take 1 tablet by mouth twice * MELATONIN 3 MG TABLET Take 2 tablets by mouth daily* METRONIDAZOLE 500 MG TABLET Take 1 tablet by mouth three * MICONAZOLE NITRATE 2 % TOPICA* Apply 1 application to affect* MOMETASONE-FORMOTEROL HFA 200* Inhale 2 Puffs as instructed * MUCINEX 600 MG TABLET, EXTEND* Take 1 tablet by mouth twice * OMEPRAZOLE 20 MG CAPSULE,DARREN* Take 1 capsule by mouth daily* SODIUM CHLORIDE 0.65 % NASAL * Use 1 [place] in the nose as ne* TAPENTADOL 75 MG TABLET Taking 1 twice a day per Dr B* THIOTHIXENE 2 MG CAPSULE Take 1 capsule by mouth daily* TOPIRAMATE 100 MG TABLET Take 1 tablet by mouth once d* TRAZODONE 100 MG TABLET Take 3 tablets by mouth daily* TRIAMCINOLONE ACETONIDE 0.1 %* Apply 1 application to affect* TRIAMCINOLONE ACETONIDE 0.1 %* Apply 1 application to affect* VRAYLAR 3 MG CAPSULE Take 3 mg by mouth daily at b* WHITE PETROLATUM-MINERAL OIL * Apply 1 application to affect* Problem List As Of Date 02/23/2018 Noted Resolved SCHIZOPHRENIA NEC [295.8] INVALID FOR* More... More... More... Tobacco use disorder [F17.200] INVALID FOR*11/18/2011 More... Routine general medical examination at a health*INVALID FOR*02/25/2013 More... MACULAR DEGENERATION NOS [H35.30] INVALID FOR* More... Diabetes mellitus type 2, uncontrolled, without*INVALID FOR* More... Class 2 obesity due to excess calories with bod*INVALID FOR*11/08/2016 More... More... Hyperlipidemia [E78.5] INVALID FOR* More... Sleep Apnea [G47.30] INVALID FOR* More... Asthma [J45.909] More... Ventral hernia [K43.9] INVALID FOR* Acute postoperative respiratory insufficiency [*INVALID FOR*07/19/2016 More... More... Electrolyte and fluid disorder [E87.8] INVALID FOR*03/03/2015 More... More... More... More... More... More... Septic shock due to Escherichia coli (HCC) [A41*INVALID FOR*07/19/2016 More... Altered mental status [R41.82] INVALID FOR*12/09/2015 More... Hyperbilirubinemia [E80.6] INVALID FOR*03/08/2015 More... Hypernatremia [E87.0] INVALID FOR*03/14/2015 More... More... More... Electrolyte imbalance [E87.8] INVALID FOR*07/19/2016 More... More... Metabolic acidosis [E87.2] INVALID FOR*03/19/2015 More... Acute kidney injury (HCC) [N17.9] INVALID FOR*03/19/2015 More... Small intestinal anastomotic leak [K91.89] INVALID FOR* More... Hypernatremia [E87.0] INVALID FOR*03/19/2015 More... 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 [place] [address] Pacemaker Check Date of Service: 02/21/181513 MR#: [id number] Acct: [id number] Name: CHRISTOPHER HOBSON Rep #: [id number] : 1960 From: Elisabeth Chapman Age/Sex: 57/F [place] [facility] [place]: [place] Billing Codes PM Device Codes: PM Dev Interrogate (Remot 02/21/18 151 <Electronically signed by Elisabeth Chapman > Date Elisabeth Chapman 02/22/18 0727<Electronically signed by Bradne Londono MD> Cosigner Signature: Date (if applicable) Braden Londono MD CC: [email or web address] Observed: 02/20/2018 Status: COMPLETED Source: [place] 12:00 AM [facility] REPOSITORY Patient Outreach (INTMWS) CHRISTOPHER HOBSON ([id number]) 1960 F CHT Date Time Provider Department 02/20/18 ROMI GAONA During your visit today, we recorded the following information about you: Romi Montes RN 03/23/2018 3:01 AM Signed PRIMARY CARE COORDINATION FOLLOW-UP NOTE Provider Action/FYI Patient identified by name and date of . Spoke to Summary: LMOM to call with BS readings and update. 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: Signature Romi Montes RN February 20, 2018 Allergies As of Date: 02/20/2018 Noted Allergy Reaction CEPHALOSPORINS 04/03/2003 Comments: itching Cherries [Other] 04/03/2003 Comments: angioedema and tongue blisters CIPROFLOXACIN 09/11/2016 10 - Anaphylaxis Comments: It was used with flagyl at the same time so uknown which is the cause CODEINE 04/03/2003 Comments: rash swelling DICLOFENAC 08/28/2003 Comments: rash DILAUDID (HYDROMORPHONE (BULK)) 06/10/2015 9 - Itching FLAGYL (METRONIDAZOLE HCL) 09/11/2016 10 - Anaphylaxis Comments: It was used with flagyl at the same time so uknown which is the cause Philomena [Other] 04/03/2003 Comments: angioedematous tongue and blisters LYRICA (PREGABALIN) 07/04/2017 7 - Swelling OPIOIDS - MORPHINE ANALOGUES 08/28/2003 Comments: rash Pears [Other] 10/09/2003 PENICILLINS 04/03/2003 10 - Anaphylaxis Comments: ?anaphylaxis, patient tolerates zosyn PERCOCET (OXYCODONE-ACETAMINOPHEN)08/13/2004 9 - Itching SOAP 05/30/2006 VICODIN (HYDROCODONE-ACETAMINOPHE*05/21/2009 2 - Rash ZITHROMAX (AZITHROMYCIN) 03/24/2016 2 - Rash Date Reviewed: 02/08/2018 Reviewed by: Kg Smalls - Fully Assessed 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 Luna* TAPENTADOL 75 MG TABLET Taking 1 twice a day per Dr B* COMPOUNDED PRESCRIPTION Overnight continuous pulse ox* GLIMEPIRIDE 4 MG TABLET Take 1 tablet by mouth daily * INSULIN GLARGINE (U-100) 100 * Inject 17 Units subcutaneousl* X MUCINEX 600 MG TABLET, EXTEND* Take 1 tablet by mouth twice * COMPOUNDED PRESCRIPTION Patient is to wear 2 L supple* COMPOUNDED PRESCRIPTION Provide nebulizer kit and becky* AMMONIUM LACTATE 12 % LOTION Apply 1 application to affect* LANCETS Test blood sugar(s) 4 times d* MOMETASONE-FORMOTEROL HFA 200* Inhale 2 Puffs as instructed * MAGNESIUM 71.5 MG (MAGNESIUM * Take 1 tablet by mouth twice * COMPOUNDED PRESCRIPTION Nocturnal oximetry on 2 L. DM* IPRATROPIUM-ALBUTEROL 0.5 MG-* Inhale 3 mL as instructed fou* HYDROCORTISONE 2.5 % TOPICAL * Apply 1 application to affect* TRIAMCINOLONE ACETONIDE 0.1 %* Apply 1 application to affect* ATORVASTATIN 40 MG TABLET Take 1 tablet by mouth once d* BLOOD SUGAR DIAGNOSTIC STRIPS Test blood sugar(s) 4 times d* PEN NEEDLE, DIABETIC 31 GAUGE* Use one needle per dose (Lant* OMEPRAZOLE 20 MG CAPSULE,DARREN* Take 1 capsule by mouth daily* ADHESIVE TAPE 2 X 10 YARD Use for dressings for healing* GUAIFENESIN ER 600 MG TABLET,* Take 1 tablet by mouth twice * MICONAZOLE NITRATE 2 % TOPICA* Apply 1 application to affect* BLOOD SUGAR DIAGNOSTIC STRIPS Test blood sugar(s) 4 times d* ALCOHOL SWABS Test blood sugars 4 x's daily* TRAZODONE 100 MG TABLET Take 3 tablets by mouth daily* TOPIRAMATE 100 MG TABLET Take 1 tablet by mouth once d* MELATONIN 3 MG TABLET Take 2 tablets by mouth daily* THIOTHIXENE 2 MG CAPSULE Take 1 capsule by mouth daily* VRAYLAR 3 MG CAPSULE Take 3 mg by mouth daily at b* WHITE PETROLATUM-MINERAL OIL * Apply 1 application to affect* TRIAMCINOLONE ACETONIDE 0.1 %* Apply 1 application to affect* SODIUM CHLORIDE 0.65 % NASAL * Use 1 [place] in the nose as ne* LUBRICANTS TOPICAL GEL Apply 1 application to affect* Problem List As Of Date 02/20/2018 Noted Resolved SCHIZOPHRENIA NEC [295.8] INVALID FOR* More... More... More... Tobacco use disorder [F17.200] INVALID FOR*11/18/2011 More... Routine general medical examination at a health*INVALID FOR*02/25/2013 More... MACULAR DEGENERATION NOS [H35.30] INVALID FOR* More... Diabetes mellitus type 2, uncontrolled, without*INVALID FOR* More... Class 2 obesity due to excess calories with bod*INVALID FOR*11/08/2016 More... More... Hyperlipidemia [E78.5] INVALID FOR* More... Sleep Apnea [G47.30] INVALID FOR* More... Asthma [J45.909] More... Ventral hernia [K43.9] INVALID FOR* Acute postoperative respiratory insufficiency [*INVALID FOR*07/19/2016 More... More... Electrolyte and fluid disorder [E87.8] INVALID FOR*03/03/2015 More... More... More... More... More... More... Septic shock due to Escherichia coli (HCC) [A41*INVALID FOR*07/19/2016 More... Altered mental status [R41.82] INVALID FOR*12/09/2015 More... Hyperbilirubinemia [E80.6] INVALID FOR*03/08/2015 More... Hypernatremia [E87.0] INVALID FOR*03/14/2015 More... More... More... Electrolyte imbalance [E87.8] INVALID FOR*07/19/2016 More... More... Metabolic acidosis [E87.2] INVALID FOR*03/19/2015 More... Acute kidney injury (HCC) [N17.9] INVALID FOR*03/19/2015 More... Small intestinal anastomotic leak [K91.89] INVALID FOR* More... Hypernatremia [E87.0] INVALID FOR*03/19/2015 More... 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] INVALID FOR* Complete heart block (HCC) [I44.2] INVALID FOR* Cardiac pacemaker in situ [Z95.0] INVALID FOR* Right bundle branch block [I45.10] INVALID FOR* Hypoalbuminemia [E88.09] INVALID FOR* Hypoproteinemia (HCC) [E77.8] INVALID FOR* Class 1 obesity due to excess calories with ser*INVALID FOR* Obesity, Class II, BMI 35-39.9 [E66.9] INVALID FOR* Encounter Status:Closed by HiFiKiddo, PRODUSER on 03/23/18 PROGRESS Observed: 02/08/2018 Status: COMPLETED Source: [place] 3:16 PM [facility] [place] REPOSITORY HNO ID: [id number] Author: Kg Smalls Service: (none) Author Type: Physician Type: Progress Notes Filed: 02/08/2018 3:55 PM Note Text: [facility] [place], 02/01/2018: INTERVAL HISTORY: Since the last visit to Pulmonary clinic, [facility] has surgically closed prior tracheostomy site. Daily cough, minimal non-purulent sputum. No hemoptysis. +/- wheezing. Dyspneic with any activities of daily living, yet tries to be active. No local skin issues since closure of tracheostomy. Thus far unable to arrange for overnight oximetry at home. ROS: General: Generally feels poorly. Appetite good. Eyes, Ears, nose, throat: No post nasal drip, rhinorrhea, purulent nasal discharge, epistaxis, hoarseness. Vision stable. Notes increased snoring at night since trach removed Cardiac: D angina, edema, Denies orthopnea, but sleeps more comfortably on side than back. GI: Denies heartburn, dysphagia, diarrhea. Spouse assists with ostomy care. Uro/FOOD TESTER: denies dysuria. denies hesitancy. denies nocturia. Menses: post menopausal Musculoskeletal: denies pain. Neuro: Sleeps poorly, does not wake refreshed. Variable daytime hypersomnolence. Denies headache, focal weakness, tremor. Skin: denies rash. Otherwise negative. Reviewed with patient, confirmed as documented by Kendra Franklin LPN. TO Allergies reviewed and updated, and medications reconciled today. PMH, FAMH, SOCH: Updated with patient today. PHYSICAL EXAMINATION: BP 132/68 Resp 18 Ht 5' 4 (1.63m) Wt 220 lb (99.8kg) SpO2 95% BMI 37.74 kg/(m2). Gen: No acute distress. Cooperative with examination. Obese. Pear shaped torso. ENT: Sclerae clear. Nares clear. Oral hygeine good and pharynx clear. No halitosis. Tracheostomy site well healed in anterior neck. No erythema, induration, fistula. Resp: No stridor, accessory respiratory muscle use, supra- sternal or intercostal retractions. A-P diameter normal. No crackles, wheezes, rubs. CV: Regular rythm. Heart tones normal. Unable to visualize JVP, HJR. No carotid bruit. Radial pulses normal. Abd: Obese, nit distended. MSK: No kyphoscoliosis, joint deformities of the extremities. Ext: Warm and well perfused. No clubbing, cyanosis. Pitting edema both lower legs. Skin: Color normal. Texture normal. No rash, eczema, urticaria, ecchymoses. Lymph: Unable to appreciate adenopathy in neck, supra-clavicular fossae. Endo: Unable to appreciate goiter. No exophthalmos, onycholysis. Neuro: Mental status normal. Affect flat. Muscle strength symmetrically poor. No tremor. DATA REVIEW: Spirometry 02/01/2018 ? Pre ? Pre ? Post ?Post ?Post ? Ref? ? ? Sahil ?% Ref ? ? ? Sahil ?% Ref ? ? % Chg FVC ?Liters ? ? 3.35 ? ? ? 2.06 ? 61 ?2.25 ? 67 ?9 FEV1 ? ? ? Liters ? ? 2.60 ? ? ? 1.57 ? 61 ?1.71 ? 66 ?9 FEV1/FVC ? % ? ? ?0.78 ?0.77 ? 0.76 Ambulatory Oximetry 02/01/2018 InspO2* ? SpO2% ? ? HR Activity ?Feet ?Time ? MPH ?Flag RA ? 96 ? ? 85 resting RA ? 92 ? ? 97 walking, usual pace ? ?399 ?3.00 ?1.51 RA ? 94 ? ? 83 resting ? 1 min. post IMPRESSION AND RECOMMENDATIONS: In light of obesity and history of upper airway obstruction, will test for obstructive sleep apnea with Diagnostic Polysomnogram. Index of suspicion is high. - I am not confident of reliability of in home testing in this very obese patient with history of tracheostomy. - Diagnostic Polysomnogram at [facility]. - Further recommendations to follow. In light of smoking history, dyspnea and cough, test for COPD with Pulmonary Function Testing. - Further recommendations to follow these results. . I addressed questions of patient and spouse, and they expressed understanding of my answers. Kg Smalls MD, [facility] [place] [facility] [place] [id number] P: [phone] F: [phone] [email or web address] CNOV Observed: 02/01/2018 Status: COMPLETED Source: [place] 3:00 PM [facility] REPOSITORY Office Visit (PULMWS) CHRISTOPHER HOBSON ([id number]) 1960 F T Date Time Provider Department 02/01/18 3:00 PM KG SMALLS During your visit today, we recorded the following information about you: Respiration Blood pressure Weight Height 18/minute 132/68 99.8 kg 1.626 m Kendra Franklin LPN 02/01/2018 2:50 PM Signed Intake information documented in the prior visit with Rissa Smith, BIODIESEL PROCESSING TECHNICIAN today. Kendra Roberto KUMAR 02/01/2018 3:04 PM Addendum ROS: General: Generally feels well. Appetite good. Eyes, Ears, nose, throat: denies post nasal drip. denies rhinorrhea. denies purulent nasal discharge. denies epistaxis. denies hoarseness. Vision stable. Cardiac: denies angina, denies edema, denies orthopnea. Notes increased snoring at night since trach removed GI: denies heartburn. denies dysphagia. denies diarrhea. Uro/FOOD TESTER: denies dysuria. denies hesitancy. denies nocturia. Menses: post menopausal Musculoskeletal: denies pain. Neuro: denies headache, denies focal weakness. denies tremor. Skin: denies rash. Otherwise negative. Reviewed with patient, confirmed as documented by Kendra Franklin LPN. TO Kg Smalls MD 02/01/2018 3:19 PM Signed Will test for obstructive sleep apnea with Diagnostic Polysomnogram, usually 1 night stay in sleep lab at [facility]. Will test for COPD with Pulmonary Function Testing here at [facility]. Further recommendations to follow these results. Kg Smalls MD, [facility] [place] [facility] [address] [place], [place] [id number] P: [phone] F: [phone] [email or web address] Kg Smalls MD 02/08/2018 3:55 PM Signed [facility] [place], 02/01/2018: INTERVAL HISTORY: Since the last visit to Pulmonary clinic, [facility] has surgically closed prior tracheostomy site. Daily cough, minimal non-purulent sputum. No hemoptysis. +/- wheezing. Dyspneic with any activities of daily living, yet tries to be active. No local skin issues since closure of tracheostomy. Thus far unable to arrange for overnight oximetry at home. ROS: General: Generally feels poorly. Appetite good. Eyes, Ears, nose, throat: No post nasal drip, rhinorrhea, purulent nasal discharge, epistaxis, hoarseness. Vision stable. Notes increased snoring at night since trach removed Cardiac: D angina, edema, Denies orthopnea, but sleeps more comfortably on side than back. GI: Denies heartburn, dysphagia, diarrhea. Spouse assists with ostomy care. Uro/FOOD TESTER: denies dysuria. denies hesitancy. denies nocturia. Menses: post menopausal Musculoskeletal: denies pain. Neuro: Sleeps poorly, does not wake refreshed. Variable daytime hypersomnolence. Denies headache, focal weakness, tremor. Skin: denies rash. Otherwise negative. Reviewed with patient, confirmed as documented by Kendra Franklin LPN. TO Allergies reviewed and updated, and medications reconciled today. PMH, FAMH, SOCH: Updated with patient today. PHYSICAL EXAMINATION: BP 132/68 Resp 18 Ht 5' 4 (1.63m) Wt 220 lb (99.8kg) SpO2 95% BMI 37.74 kg/(m2). Gen: No acute distress. Cooperative with examination. Obese. Pear shaped torso. ENT: Sclerae clear. Nares clear. Oral hygeine good and pharynx clear. No halitosis. Tracheostomy site well healed in anterior neck. No erythema, induration, fistula. Resp: No stridor, accessory respiratory muscle use, supra- sternal or intercostal retractions. A-P diameter normal. No crackles, wheezes, rubs. CV: Regular rythm. Heart tones normal. Unable to visualize JVP, HJR. No carotid bruit. Radial pulses normal. Abd: Obese, nit distended. MSK: No kyphoscoliosis, joint deformities of the extremities. Ext: Warm and well perfused. No clubbing, cyanosis. Pitting edema both lower legs. Skin: Color normal. Texture normal. No rash, eczema, urticaria, ecchymoses. Lymph: Unable to appreciate adenopathy in neck, supra-clavicular fossae. Endo: Unable to appreciate goiter. No exophthalmos, onycholysis. Neuro: Mental status normal. Affect flat. Muscle strength symmetrically poor. No tremor. DATA REVIEW: Spirometry 02/01/2018 ? Pre ? Pre ? Post ?Post ?Post ? Ref? ? ? Sahil ?% Ref ? ? ? Sahil ?% Ref ? ? % Chg FVC ?Liters ? ? 3.35 ? ? ? 2.06 ? 61 ?2.25 ? 67 ?9 FEV1 ? ? ? Liters ? ? 2.60 ? ? ? 1.57 ? 61 ?1.71 ? 66 ?9 FEV1/FVC ? % ? ? ?0.78 ?0.77 ? 0.76 Ambulatory Oximetry 02/01/2018 InspO2* ? SpO2% ? ? HR Activity ?Feet ?Time ? MPH ?Flag RA ? 96 ? ? 85 resting RA ? 92 ? ? 97 walking, usual pace ? ?399 ?3.00 ?1.51 RA ? 94 ? ? 83 resting ? 1 min. post IMPRESSION AND RECOMMENDATIONS: In light of obesity and history of upper airway obstruction, will test for obstructive sleep apnea with Diagnostic Polysomnogram. Index of suspicion is high. - I am not confident of reliability of in home testing in this very obese patient with history of tracheostomy. - Diagnostic Polysomnogram at [facility]. - Further recommendations to follow. In light of smoking history, dyspnea and cough, test for COPD with Pulmonary Function Testing. - Further recommendations to follow these results. . I addressed questions of patient and spouse, and they expressed understanding of my answers. Kg Smalls MD, [facility] [place] [facility] [address] [place] [id number] P: [phone] F: [phone] Referring Provider: FORTINO BARTHOLOMEW [[id number]] Allergies As of Date: 02/01/2018 Noted Allergy Reaction CEPHALOSPORINS 04/03/2003 Comments: itching Cherries [Other] 04/03/2003 Comments: angioedema and tongue blisters CIPROFLOXACIN 09/11/2016 10 - Anaphylaxis Comments: It was used with flagyl at the same time so uknown which is the cause CODEINE 04/03/2003 Comments: rash swelling DICLOFENAC 08/28/2003 Comments: rash DILAUDID (HYDROMORPHONE (BULK)) 06/10/2015 9 - Itching FLAGYL (METRONIDAZOLE HCL) 09/11/2016 10 - Anaphylaxis Comments: It was used with flagyl at the same time so uknown which is the cause Philomena [Other] 04/03/2003 Comments: angioedematous tongue and blisters LYRICA (PREGABALIN) 07/04/2017 7 - Swelling OPIOIDS - MORPHINE ANALOGUES 08/28/2003 Comments: rash Pears [Other] 10/09/2003 PENICILLINS 04/03/2003 10 - Anaphylaxis Comments: ?anaphylaxis, patient tolerates zosyn PERCOCET (OXYCODONE-ACETAMINOPHEN)08/13/2004 9 - Itching SOAP 05/30/2006 VICODIN (HYDROCODONE-ACETAMINOPHE*05/21/2009 2 - Rash ZITHROMAX (AZITHROMYCIN) 03/24/2016 2 - Rash Date Reviewed: 02/01/2018 Reviewed by: Kendra Franklin LPN - Fully Assessed Reason for Visit: Established Patient [175] Cmt: COPD Primary Visit Diagnosis:YENY (obstructive sleep apnea) [G47.33] Other Visit Diagnoses:Chronic obstructive pulmonary disease, unspecified COPD type (HCC) [J44.9] Obesity, Class II, BMI 35-39.9 [E66.9] Order(s):SPIROMETRY - BASELINE AND POST DILATOR [8380844] Order #: [id number] FUTURE COMPOUNDED PRESCRIPTIONDiagnostic Pol[facility]om[facility]. [facility] EachRfl: 0 Prescriptions as of 02/01/2018 Sig: COMPOUNDED PRESCRIPTION Diagnostic Polysomnogram. Luna* TAPENTADOL 75 MG TABLET Taking 1 twice a day per Dr B* COMPOUNDED PRESCRIPTION Overnight continuous pulse ox* GLIMEPIRIDE 4 MG TABLET Take 1 tablet by mouth daily * INSULIN GLARGINE (U-100) 100 * Inject 17 Units subcutaneousl* MUCINEX 600 MG TABLET, EXTEND* Take 1 tablet by mouth twice * COMPOUNDED PRESCRIPTION Patient is to wear 2 L supple* COMPOUNDED PRESCRIPTION Provide nebulizer kit and becky* AMMONIUM LACTATE 12 % LOTION Apply 1 application to affect* LANCETS Test blood sugar(s) 4 times d* MOMETASONE-FORMOTEROL HFA 200* Inhale 2 Puffs as instructed * MAGNESIUM 71.5 MG (MAGNESIUM * Take 1 tablet by mouth twice * COMPOUNDED PRESCRIPTION Nocturnal oximetry on 2 L. DM* IPRATROPIUM-ALBUTEROL 0.5 MG-* Inhale 3 mL as instructed fou* HYDROCORTISONE 2.5 % TOPICAL * Apply 1 application to affect* TRIAMCINOLONE ACETONIDE 0.1 %* Apply 1 application to affect* BLOOD SUGAR DIAGNOSTIC STRIPS Test blood sugar(s) 4 times d* PEN NEEDLE, DIABETIC 31 GAUGE* Use one needle per dose (Lant* OMEPRAZOLE 20 MG CAPSULE,DARREN* Take 1 capsule by mouth daily* ADHESIVE TAPE 2 X 10 YARD Use for dressings for healing* GUAIFENESIN ER 600 MG TABLET,* Take 1 tablet by mouth twice * MICONAZOLE NITRATE 2 % TOPICA* Apply 1 application to affect* BLOOD SUGAR DIAGNOSTIC STRIPS Test blood sugar(s) 4 times d* ALCOHOL SWABS Test blood sugars 4 x's daily* TRAZODONE 100 MG TABLET Take 3 tablets by mouth daily* TOPIRAMATE 100 MG TABLET Take 1 tablet by mouth once d* MELATONIN 3 MG TABLET Take 2 tablets by mouth daily* THIOTHIXENE 2 MG CAPSULE Take 1 capsule by mouth daily* VRAYLAR 3 MG CAPSULE Take 3 mg by mouth daily at b* WHITE PETROLATUM-MINERAL OIL * Apply 1 application to affect* TRIAMCINOLONE ACETONIDE 0.1 %* Apply 1 application to affect* SODIUM CHLORIDE 0.65 % NASAL * Use 1 [place] in the nose as ne* LUBRICANTS TOPICAL GEL Apply 1 application to affect* ATORVASTATIN 40 MG TABLET Take 1 tablet by mouth once d* X METRONIDAZOLE 500 MG TABLET Take 1 tablet by mouth three * Problem List As Of Date 02/01/2018 Noted Resolved SCHIZOPHRENIA NEC [295.8] INVALID FOR* More... More... More... Tobacco use disorder [F17.200] INVALID FOR*11/18/2011 More... Routine general medical examination at a health*INVALID FOR*02/25/2013 More... MACULAR DEGENERATION NOS [H35.30] INVALID FOR* More... Diabetes mellitus type 2, uncontrolled, without*INVALID FOR* More... Class 2 obesity due to excess calories with bod*INVALID FOR*11/08/2016 More... More... Hyperlipidemia [E78.5] INVALID FOR* More... Sleep Apnea [G47.30] INVALID FOR* More... Asthma [J45.909] More... Ventral hernia [K43.9] INVALID FOR* Acute postoperative respiratory insufficiency [*INVALID FOR*07/19/2016 More... More... Electrolyte and fluid disorder [E87.8] INVALID FOR*03/03/2015 More... More... More... More... More... More... Septic shock due to Escherichia coli (HCC) [A41*INVALID FOR*07/19/2016 More... Altered mental status [R41.82] INVALID FOR*12/09/2015 More... Hyperbilirubinemia [E80.6] INVALID FOR*03/08/2015 More... Hypernatremia [E87.0] INVALID FOR*03/14/2015 More... More... More... Electrolyte imbalance [E87.8] INVALID FOR*07/19/2016 More... More... Metabolic acidosis [E87.2] INVALID FOR*03/19/2015 More... Acute kidney injury (HCC) [N17.9] INVALID FOR*03/19/2015 More... Small intestinal anastomotic leak [K91.89] INVALID FOR* More... Hypernatremia [E87.0] INVALID FOR*03/19/2015 More... 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 Will test for COPD with Pulmonary Function Testing here at [facility]. Further recommendations to follow these results. Kg Smalls MD, [facility] [place] [facility] [address] [place] [address] P: [phone] F: [phone] [email or web address] Visit Notes: >> Kendra Franklin LPN [facility] Feb 01, 2018 2:50 PM Status: Signed Intake information documented in the prior visit with Rissa Smith CRT today. >> Kendra Franklin LPN [facility] Feb 01, 2018 2:52 PM Status: Addendum ROS: General: Generally feels well. Appetite good. Eyes, Ears, nose, throat: denies post nasal drip. denies rhinorrhea. denies purulent nasal discharge. denies epistaxis. denies hoarseness. Vision stable. Cardiac: denies angina, denies edema, denies orthopnea. Notes increased snoring at night since trach removed GI: denies heartburn. denies dysphagia. denies diarrhea. Uro/FOOD TESTER: denies dysuria. denies hesitancy. denies nocturia. Menses: post menopausal Musculoskeletal: denies pain. Neuro: denies headache, denies focal weakness. denies tremor. Skin: denies rash. Otherwise negative. Reviewed with patient, confirmed as documented by Kendra Franklin LPN. TO Prescriptions ordered this encounter Disp Refills Start End COMPOUNDED PRESCRIPTION 1 Ea* 0 02/01/2018 Class: Print RX Sig: Diagnostic Polysomnogram. [facility] Follow Up: Discussed this visit Follow-up and Disposition History Recorded Encounter Status:Closed by KG SMALLS MD on 02/08/18 PROGRESS Observed: 01/24/2018 Status: COMPLETED Source: [place] 4:21 PM [facility] REPOSITORY HNO ID: [id number] Author: Tiff Pearson Service: (none) Author Type: Physician Type: Progress Notes Filed: 02/06/2018 8:13 AM Note Text: This note was created using [employer]. Subjective Christopher Hobson is a 57 year old female. Overall doing well. Hs some depression symptoms but improving. Still with chronic pain issues, Sees Dr. Trevizo. worried about trach site but they have been told that it would close on its own. Treated for respiratory infection a few days ago by [facility]. Improving with treatment with Doxy and Medrol dosepak. Patient Health Questionnaire (PHQ-9) PHQ-9 Levels: 0 - 4 Minimal depression 5 - 9 Mild depression 10-14 Moderate depression 15-19 Moderately severe depression 20-27 Severe depression PHQ-9 Score: 15 PHQ-2 Score: 4 (0-3) Daily difficulty level due to depression (0-3): 0 1. Little interest or pleasure in doing things?: Nearly every day 2. Feeling down, depressed, or hopeless?: Several days 3. Trouble falling or staying asleep, or sleeping too much?: More than half the days 4. Feeling tired or having little energy?: Nearly every day 5. Poor appetite or overeating?: Not at all 6. Feeling bad about yourself - or that you are a failure or have let yourself or your family down?: Not at all 7. Trouble concentrating on things, such as reading the newspaper or watching television?: Nearly every day 8. Moving or speaking so slowly that other people could have noticed. Or the opposite - being so fidgety or restless that you have been moving around a lot more than usual?: Nearly every day 9. Thoughts that you would be better off , or of hurting yourself in some way?: Not at all 10. If you checked off any problems, how difficult have these problems made it for you to do your work, take care of things at home, or get along with other people?: Not difficult at all Review of Systems Constitutional: Negative. Respiratory: Negative. Endocrine: Sugars running high Psychiatric/Behavioral: Noted depression symptoms but seems better than at prior appointments even though PHQ9 was 15. Objective BP 134/50 (BP Site: Left Arm, BP Position: Sitting, BP Cuff Size: Large Adult) Pulse 84 Temp 36.8 ?C (98.2 ?F) (Left Tympanic) Resp 12 Wt 99.8 kg (220 lb) SpO2 96% BMI 37.76 kg/m? Physical Exam Constitutional: She is oriented to person, place, and time. She appears well-developed and well-nourished. Obese HENT: Head: Normocephalic and atraumatic. Eyes: Conjunctivae are normal. No scleral icterus. Cardiovascular: Normal rate, regular rhythm and normal heart sounds. Pulmonary/Chest: Effort normal and breath sounds normal. Neurological: She is alert and oriented to person, place, and time. Skin: Skin is warm and dry. Psychiatric: Mildly depressed affect but reactive. Normal behavior Component Latest Ref Rng AND Units 11/14/2017 Creatinine, Ur Random (UCRR) 20 - 300 mg/dL 68.4 Albumin, Urine Random 0.0 - 23.0 mg/L <12.0 Albumin/Creat Ratio 0 - 30 mg/g Not calculated Hemoglobin A1C 4.3 - 5.6 % 9.2 (H) Estimated Average Glucose mg/dL 217 Magnesium 1.7 - 2.3 mg/dL 1.5 (L) Reviewed prior labs as well. Assessment and Plan Encounter Diagnosis ICD-10-CM 1. Uncontrolled type 2 diabetes mellitus without complication, with long-term current use of insulin (HCC) E11.65 glimepiride (AMARYL) 4 mg tablet Z79.4 HGB A1C COMP METABOLIC PANEL 2. Chronic, continuous use of opioids F11.90 tapentadol (NUCYNTA) 75 mg tab 3. Class 2 obesity due to excess calories without serious comorbidity with body mass index (BMI) of 37.0 to 37.9 in adult E66.09 Z68.37 4. Intermittent asthma without complication, unspecified asthma severity J45.20 5. Hypoalbuminemia E88.09 COMP METABOLIC PANEL 6. Hypomagnesemia E83.42 MAGNESIUM BLD 7. Encounter for long-term current use of medication Z79.899 COMP METABOLIC PANEL CBC 8. Diarrhea, unspecified type R19.7 metroNIDAZOLE (FLAGYL) 500 mg tablet 9. Recurrent major depressive disorder, in partial remission (HCC) F33.41 HgA1C high. Discussed adjusting meds and improving diet and activity level as able given chronic pain issues. Continues to follow up with Dr. Trevizo. Need to increase protein intake. Treating for asthma exacerbation as noted in HPI. Will see Dr. Smalls. Further evaluation and treatment as indicated. Continue following at [facility] for meds for anxiety, depression, etc. Though PHQ9 in moderate severe range of depression, clinically appears better than at prior appointments. Flagyl given for treating diarrhea issue--effective in the past as discussed. Above issues addressed with patient. Patient involved in shared decision making for management of medical issues. History and medications reviewed. Epic updated as needed Refills taken care of and meds adjusted as indicated after reviewed history, exam and labs. Health Maintenance reviewed. Updated record and/or ordered tests as recorded. Encouraged on efforts at healthy diet and regular exercise and adequate sleep. Needs to keep working on diet and exercise with lifestyle changes for effective weight loss. The majority of the visit was spent counseling and/or coordinating care for the patient. Hrem-ar-yjye time was at least 25 minutes. Tiff Pearson MD CNOV Observed: 01/24/2018 Status: COMPLETED Source: [place] 3:40 PM [facility] REPOSITORY Office Visit (INTMWS) CHRISTOPHER HOBSON ([id number]) 1960 F [facility] Date Time Provider Department 01/24/18 3:40 PM TIFF PEARSON INTMWS During your visit today, we recorded the following information about you: Temperature Pulse Respiration Blood pressure 98.2 degrees 84/minute 12/minute 134/50 Weight 99.8 kg Tiff Pearson MD 02/06/2018 8:13 AM Signed This note was created using NoteWriter. Subjective Christopher Hobson is a 57 year old female. Overall doing well. Hs some depression symptoms but improving. Still with chronic pain issues, Sees Dr. Trevizo. worried about trach site but they have been told that it would close on its own. Treated for respiratory infection a few days ago by [facility]. Improving with treatment with Doxy and Medrol dosepak. Patient Health Questionnaire (PHQ-9) PHQ-9 Levels: 0 - 4 Minimal depression 5 - 9 Mild depression 10-14 Moderate depression 15-19 Moderately severe depression 20-27 Severe depression PHQ-9 Score: 15 PHQ-2 Score: 4 (0-3) Daily difficulty level due to depression (0-3): 0 1. Little interest or pleasure in doing things?: Nearly every day 2. Feeling down, depressed, or hopeless?: Several days 3. Trouble falling or staying asleep, or sleeping too much?: More than half the days 4. Feeling tired or having little energy?: Nearly every day 5. Poor appetite or overeating?: Not at all 6. Feeling bad about yourself - or that you are a failure or have let yourself or your family down?: Not at all 7. Trouble concentrating on things, such as reading the newspaper or watching television?: Nearly every day 8. Moving or speaking so slowly that other people could have noticed. Or the opposite - being so fidgety or restless that you have been moving around a lot more than usual?: Nearly every day 9. Thoughts that you would be better off , or of hurting yourself in some way?: Not at all 10. If you checked off any problems, how difficult have these problems made it for you to do your work, take care of things at home, or get along with other people?: Not difficult at all Review of Systems Constitutional: Negative. Respiratory: Negative. Endocrine: Sugars running high Psychiatric/Behavioral: Noted depression symptoms but seems better than at prior appointments even though PHQ9 was 15. Objective BP 134/50 (BP Site: Left Arm, BP Position: Sitting, BP Cuff Size: Large Adult) Pulse 84 Temp 36.8 ?C (98.2 ?F) (Left Tympanic) Resp 12 Wt 99.8 kg (220 lb) SpO2 96% BMI 37.76 kg/m? Physical Exam Constitutional: She is oriented to person, place, and time. She appears well-developed and well-nourished. Obese HENT: Head: Normocephalic and atraumatic. Eyes: Conjunctivae are normal. No scleral icterus. Cardiovascular: Normal rate, regular rhythm and normal heart sounds. Pulmonary/Chest: Effort normal and breath sounds normal. Neurological: She is alert and oriented to person, place, and time. Skin: Skin is warm and dry. Psychiatric: Mildly depressed affect but reactive. Normal behavior Component Latest Ref Rng AND Units 11/14/2017 Creatinine, Ur Random (UCRR) 20 - 300 mg/dL 68.4 Albumin, Urine Random 0.0 - 23.0 mg/L <12.0 Albumin/Creat Ratio 0 - 30 mg/g Not calculated Hemoglobin A1C 4.3 - 5.6 % 9.2 (H) Estimated Average Glucose mg/dL 217 Magnesium 1.7 - 2.3 mg/dL 1.5 (L) Reviewed prior labs as well. Assessment and Plan Encounter Diagnosis ICD-10-CM 1. Uncontrolled type 2 diabetes mellitus without complication, with long-term current use of insulin ([facility]) E11.65 glimepiride (AMARYL) 4 mg tablet Z79.4 HGB A1C COMP METABOLIC PANEL 2. Chronic, continuous use of opioids F11.90 tapentadol (NUCYNTA) 75 mg tab 3. Class 2 obesity due to excess calories without serious comorbidity with body mass index (BMI) of 37.0 to 37.9 in adult E66.09 Z68.37 4. Intermittent asthma without complication, unspecified asthma severity J45.20 5. Hypoalbuminemia E88.09 COMP METABOLIC PANEL 6. Hypomagnesemia E83.42 MAGNESIUM BLD 7. Encounter for long-term current use of medication Z79.899 COMP METABOLIC PANEL CBC 8. Diarrhea, unspecified type R19.7 metroNIDAZOLE (FLAGYL) 500 mg tablet 9. Recurrent major depressive disorder, in partial remission ([facility]) F33.41 HgA1C high. Discussed adjusting meds and improving diet and activity level as able given chronic pain issues. Continues to follow up with Dr. Trevizo. Need to increase protein intake. Treating for asthma exacerbation as noted in HPI. Will see Dr. Smalls. Further evaluation and treatment as indicated. [facility] for [facility], depression, etc. Though PHQ9 in moderate severe range of depression, clinically appears better than at prior appointments. Flagyl given for treating diarrhea issue--effective in the past as discussed. Above issues addressed with patient. Patient involved in shared decision making for management of medical issues. History and medications reviewed. Epic updated as needed Refills taken care of and meds adjusted as indicated after reviewed history, exam and labs. Health Maintenance reviewed. Updated record and/or ordered tests as recorded. Encouraged on efforts at healthy diet and regular exercise and adequate sleep. Needs to keep working on diet and exercise with lifestyle changes for effective weight loss. The majority of the visit was spent counseling and/or coordinating care for the patient. Ndpf-gc-hhxj time was at least 25 minutes. MD Mariann Lara 01/24/2018 4:56 PM Signed Orders for overnight pulse ox faxed to [facility]. Referring Provider: TIFF PEARSON [[id number]] Allergies As of Date: 01/24/2018 Noted Allergy Reaction CEPHALOSPORINS 04/03/2003 Comments: itching Cherries [Other] 04/03/2003 Comments: angioedema and tongue blisters CIPROFLOXACIN 09/11/2016 10 - Anaphylaxis Comments: It was used with flagyl at the same time so uknown which is the cause CODEINE 04/03/2003 Comments: rash swelling DICLOFENAC 08/28/2003 Comments: rash DILAUDID (HYDROMORPHONE (BULK)) 06/10/2015 9 - Itching FLAGYL (METRONIDAZOLE HCL) 09/11/2016 10 - Anaphylaxis Comments: It was used with flagyl at the same time so uknown which is the cause Philomena [Other] 04/03/2003 Comments: angioedematous tongue and blisters LYRICA (PREGABALIN) 07/04/2017 7 - Swelling OPIOIDS - MORPHINE ANALOGUES 08/28/2003 Comments: rash Pears [Other] 10/09/2003 PENICILLINS 04/03/2003 10 - Anaphylaxis Comments: ?anaphylaxis, patient tolerates zosyn PERCOCET (OXYCODONE-ACETAMINOPHEN)08/13/2004 9 - Itching SOAP 05/30/2006 VICODIN (HYDROCODONE-ACETAMINOPHE*05/21/2009 2 - Rash ZITHROMAX (AZITHROMYCIN) 03/24/2016 2 - Rash Date Reviewed: 01/24/2018 Reviewed by: Mariann Bush - Fully Assessed Reason for Visit: Surgical Followup [104] Primary Visit Diagnosis:Uncontrolled type 2 diabetes mellitus without complication, with long-term current use of insulin (HCC) [E11.65, Z79.4] Other Visit Diagnoses:Chronic, continuous use of opioids [F11.90] Class 2 obesity due to excess calories without serious comorbidity with body mass index (BMI) of 37.0 to 37.9 in adult [E66.09, Z68.37] Intermittent asthma without complication, unspecified asthma severity [J45.20] Hypoalbuminemia [E88.09] Hypomagnesemia [E83.42] Encounter for long-term current use of medication [Z79.899] Diarrhea, unspecified type [R19.7] Recurrent major depressive disorder, in partial remission (HCC) [F33.41] Order(s):COMPOUNDED PRESCRIPTIONOvernight continuous pulse oximetry on room air. ([facility] supplier) Please do in the next weekDisp: 1 EachRfl: 0 glimepiride (AMARYL) 4 mg tabletTake 1 tablet by mouth daily with breakfast.Disp: 30 tabletRfl: 11 insulin glargine (BASAGLAR KWIKPEN U-100 INSULIN) 100 unit/mL (3 mL) inpnInject 17 Units subcutaneously daily at bedtime.Disp: 5 PenRfl: 11 HGB A1C [HWVSE9K] Order #: [id number] FUTURE COMP METABOLIC PANEL [SQCMP] Order #: [id number] FUTURE CBC [SQCBC] Order #: [id number] FUTURE MAGNESIUM BLD [SQMG1] Order #: [id number] FUTURE metroNIDAZOLE (FLAGYL) 500 mg tabletTake 1 tablet by mouth three times daily. Take for recurrent infectionDisp: 30 tabletRfl: 0 Prescriptions as of 01/24/2018 Sig: METRONIDAZOLE 500 MG TABLET Take 1 tablet by mouth three * INSULIN GLARGINE (U-100) 100 * Inject 17 Units subcutaneousl* METHYLPREDNISOLONE 4 MG TABLE* Follow dosing instructions, t* DOXYCYCLINE HYCLATE 100 MG TA* Take 1 tablet by mouth twice * MUCINEX 600 MG TABLET, EXTEND* Take 1 tablet by mouth twice * COMPOUNDED PRESCRIPTION Patient is to wear 2 L supple* COMPOUNDED PRESCRIPTION Provide nebulizer kit and becky* AMMONIUM LACTATE 12 % LOTION Apply 1 application to affect* LANCETS Test blood sugar(s) 4 times d* MOMETASONE-FORMOTEROL HFA 200* Inhale 2 Puffs as instructed * MAGNESIUM 71.5 MG (MAGNESIUM * Take 1 tablet by mouth twice * COMPOUNDED PRESCRIPTION Nocturnal oximetry on 2 L. DM* IPRATROPIUM-ALBUTEROL 0.5 MG-* Inhale 3 mL as instructed fou* HYDROCORTISONE 2.5 % TOPICAL * Apply 1 application to affect* TRIAMCINOLONE ACETONIDE 0.1 %* Apply 1 application to affect* ATORVASTATIN 40 MG TABLET Take 1 tablet by mouth once d* BLOOD SUGAR DIAGNOSTIC STRIPS Test blood sugar(s) 4 times d* PEN NEEDLE, DIABETIC 31 GAUGE* Use one needle per dose (Lant* OMEPRAZOLE 20 MG CAPSULE,DARREN* Take 1 capsule by mouth daily* ADHESIVE TAPE 2 X 10 YARD Use for dressings for healing* GUAIFENESIN ER 600 MG TABLET,* Take 1 tablet by mouth twice * MICONAZOLE NITRATE 2 % TOPICA* Apply 1 application to affect* BLOOD SUGAR DIAGNOSTIC STRIPS Test blood sugar(s) 4 times d* ALCOHOL SWABS Test blood sugars 4 x's daily* TRAZODONE 100 MG TABLET Take 3 tablets by mouth daily* TOPIRAMATE 100 MG TABLET Take 1 tablet by mouth once d* MELATONIN 3 MG TABLET Take 2 tablets by mouth daily* THIOTHIXENE 2 MG CAPSULE Take 1 capsule by mouth daily* VRAYLAR 3 MG CAPSULE Take 3 mg by mouth daily at b* WHITE PETROLATUM-MINERAL OIL * Apply 1 application to affect* TRIAMCINOLONE ACETONIDE 0.1 %* Apply 1 application to affect* SODIUM CHLORIDE 0.65 % NASAL * Use 1 [place] in the nose as ne* LUBRICANTS TOPICAL GEL Apply 1 application to affect* TAPENTADOL 75 MG TABLET Taking 1 twice a day per Dr B* COMPOUNDED PRESCRIPTION Overnight continuous pulse ox* GLIMEPIRIDE 4 MG TABLET Take 1 tablet by mouth daily * Medication notes this encounter MOMETASONE-FORMOTEROL HFA 200 MCG-5 MCG/ACTUATION AEROSOL INHALER >> Tiff Pearson MD 01/24/2018 4:45 PM >> TIFF PEARSON MD MonJan 24, 2018 4:45 PM Not using routinely MAGNESIUM 71.5 MG (MAGNESIUM CHLORIDE) TABLET,DELAYED RELEASE >> Mariann Bush 01/24/2018 3:34 PM >> MARIANN BUSH MonJan 24, 2018 3:34 PM Takes 2 per day GLIMEPIRIDE 4 MG TABLET >> Tiff Pearson MD 02/06/2018 8:01 AM >> TIFF PEARSON MD MonFeb 06, 2018 8:01 AM Taking 1 daily METRONIDAZOLE 500 MG TABLET >> Mariann Woodhall 01/24/2018 3:35 PM >> SAMSONL MARIANN MonJan 24, 2018 3:35 PM Finished. DULOXETINE 60 MG CAPSULE,DELAYED RELEASE >> Mariann Woodhall 01/24/2018 3:35 PM >> PATRICIOTREVONL MARIANN MonJan 24, 2018 3:35 PM No longer taking. BUTRANS 15 MCG/HOUR TRANSDERMAL PATCH >> Mariann Woodhall 01/24/2018 3:36 PM >> SAMSONL MARIANN MonJan 24, 2018 3:36 PM No longer using. Problem List As Of Date 01/24/2018 Noted Resolved SCHIZOPHRENIA NEC [295.8] INVALID FOR* More... More... More... Tobacco use disorder [F17.200] INVALID FOR*11/18/2011 More... Routine general medical examination at a [facility]*INVALID FOR*02/25/2013 More... MACULAR DEGENERATION NOS [H35.30] INVALID FOR* More... Diabetes mellitus type 2, uncontrolled, without*INVALID FOR* More... Class 2 obesity due to excess calories with bod*INVALID FOR*11/08/2016 More... More... Hyperlipidemia [E78.5] INVALID FOR* More... Sleep Apnea [G47.30] INVALID FOR* More... Asthma [J45.909] More... Ventral hernia [K43.9] INVALID FOR* Acute postoperative respiratory insufficiency [*INVALID FOR*07/19/2016 More... More... Electrolyte and fluid disorder [E87.8] INVALID FOR*03/03/2015 More... More... More... More... More... More... Septic shock due to Escherichia coli (HCC) [A41*INVALID FOR*07/19/2016 More... Altered mental status [R41.82] INVALID FOR*12/09/2015 More... Hyperbilirubinemia [E80.6] INVALID FOR*03/08/2015 More... Hypernatremia [E87.0] INVALID FOR*03/14/2015 More... More... More... Electrolyte imbalance [E87.8] INVALID FOR*07/19/2016 More... More... Metabolic acidosis [E87.2] INVALID FOR*03/19/2015 More... Acute kidney injury (HCC) [N17.9] INVALID FOR*03/19/2015 More... Small intestinal anastomotic leak [K91.89] INVALID FOR* More... Hypernatremia [E87.0] INVALID FOR*03/19/2015 More... 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 Prescriptions ordered this encounter Disp Refills Start End COMPOUNDED PRESCRIPTION 1 Ea* 0 01/24/2018 Class: Print RX Sig: Overnight continuous pulse oximetry on room air. ([facility] supplier) Please do in the next week GLIMEPIRIDE 4 MG TABLET 30 t* 11 01/24/2018 Route: ORAL Sig: Take 1 tablet by mouth daily with breakfast. INSULIN GLARGINE (U-100) 100 UNIT/ML* 5 Pen 01/24/2018 Route: SUBCUTANEOUS Sig: Inject 17 Units subcutaneously daily at bedtime. METRONIDAZOLE 500 MG TABLET 30 t* 0 02/06/2018 Route: ORAL Sig: Take 1 tablet by mouth three times daily. Take for recurrent infection Medications Discontinued During This Encounter DULoxetine (CYMBALTA) 60 mg capsule 07/04/2017 01/24/2018 Class: Historical Med Route: ORAL Sig: Take 1 capsule by mouth once daily. Disc: Reason for discontinue is not on file. glimepiride (AMARYL) 2 mg tablet 60 t* 11 10/23/2017 01/24/2018 Route: ORAL Sig: Take 2 tablets by mouth daily with breakfast. Disc: Reason for discontinue is not on file. insulin glargine (BASAGLAR KWIKPEN U* 5 Pen 5 09/05/2017 01/24/2018 Route: SUBCUTANEOUS Sig: Inject 17 Units subcutaneously daily at bedtime. Disc: Reason for discontinue is not on file. BUTRANS 15 mcg/hour ptwk 0 09/18/2016 01/24/2018 Class: Med Update Route: TRANSDERMAL Sig: Apply 1 Patch as directed every Monday. Per Dr. Trevizo Disc: Reason for discontinue is not on file. metroNIDAZOLE (FLAGYL) 500 mg tablet 30 t* 0 07/24/2017 02/06/2018 Route: ORAL Sig: Take 1 tablet by mouth three times daily. Disc: Reason for discontinue is not on file. Encounter Status:Closed by TIFF PEARSON MD on 02/06/18 PROGRESS Observed: 01/19/2018 Status: COMPLETED Source: [place] 2:06 PM [facility] [place] REPOSITORY HNO ID: [id number] Author: Marbin Grimes Service: (none) Author Type: Nurse Practitioner Type: Progress Notes Filed: 01/19/2018 2:43 PM Note Text: CC: Patient presents with: Cough: Cough and wheezing x 2 days HPI: Christopher Hobson is a 57 year old female who presents to the office with for complaint of sinus symptoms for 2 days. Symptoms started with rhinorrhea. Today associated symptoms includes sneezing, nasal congestion, rhinorrhea- described as scant amount of clear secretions, facial pain/pressure maxillary, headache, ear pain left , wheezing and fatigue. She denies sore throat, hoarse voice, swollen glands, fever, nausea, vomiting and diarrhea. Treatments tried include Acetaminophen and Guaifenesin/Mucinex with minor relief of symptoms. Also using breathing tx 4x a day. Oxygen at 2/L at night only. Pulse ox at home 97-100%. Recently had trach removal ~2 weeks ago with ENT. was concerned she might get worse if not seen today. Patient indicates that she didn't think she needed to be seen. Sick contacts: unknown. Patient confirms a history of asthma. Ex-smoker and without a history of seasonal allergies. The ROS is otherwise negative. The patient's pmh, medications, allergies, and past visits are reviewed. PHYSICAL EXAM: BP 138/80 Pulse 76 Temp 36.8 ?C (98.2 ?F) (Temporal Artery) Resp 16 Wt 101.2 kg (223 lb) SpO2 97% BMI 38.28 kg/m? General appearance: alert, cooperative, pleasant, in no acute distress Head: Normocephalic Eyes: conjunctiva pink and moist, no icterus, sclera white, non-injected Ears: Right ear: Normal, TM - clear with good landmarks. Left ear: Normal, TM - clear with good landmarks Nose: clear rhinorrhea, mild erythema, maxillary sinus tenderness. Oropharynx:moist without lesions Neck:supple and no adenopathy Heart: Negative. RRR without obvious murmur, gallop, or rubs. No ectopy. Lungs: clear to auscultation, good air exchange, pulse ox 97%, faint wheeze noted upper airway cleared with cough ASSESSMENT/PLAN: 1. Viral URI with cough - ICD9: 465.9, ICD10: J06.9, B97.89 - Discussed viral etiology and rationale for treatment. - Symptomatic treatment with prn analgesia - Supportive care with fluids and rest - The patient may also use OTC cough and cold meds as needed and nasal saline gtts and suction prn. - Follow up in 5 days if symptoms persist or sooner if worsening of symptoms - METHYLPREDNISOLONE 4 MG TABLETS IN A DOSE PACK- Now - DOXYCYCLINE HYCLATE 100 MG TABLET if no better in 3-5 days Prescription instructions reviewed with patient as applicable. Potential red flag symptoms discussed with the patient. Reviewed appropriate action plan to take if red flag symptoms occur. Patient agreeable to treatment plan. Marbin Grimes APRN.DORY CNOV Observed: 01/19/2018 Status: COMPLETED Source: [place] 2:00 PM [facility] REPOSITORY Office Visit (INTMWS) CHRISTOPHER HOBSON ([id number]) 1960 F [facility] Date Time Provider Department 01/19/18 2:00 PM MARBIN GRIMES ([facility]) INTMWS During your visit today, we recorded the following information about you: Temperature Pulse Respiration Blood pressure 98.2 degrees 76/minute 16/minute 138/80 Weight 101.2 kg Marbin Grimes APRN.CNP 01/19/2018 2:43 PM Signed CC: Patient presents with: Cough: Cough and wheezing x 2 days HPI: Christopher Hobson is a 57 year old female who presents to the office with for complaint of sinus symptoms for 2 days. Symptoms started with rhinorrhea. Today associated symptoms includes sneezing, nasal congestion, rhinorrhea- described as scant amount of clear secretions, facial pain/pressure maxillary, headache, ear pain left , wheezing and fatigue. She denies sore throat, hoarse voice, swollen glands, fever, nausea, vomiting and diarrhea. Treatments tried include Acetaminophen and Guaifenesin/Mucinex with minor relief of symptoms. Also using breathing tx 4x a day. Oxygen at 2/L at night only. Pulse ox at home 97-100%. Recently had trach removal ~2 weeks ago with ENT. was concerned she might get worse if not seen today. Patient indicates that she didn't think she needed to be seen. Sick contacts: unknown. Patient confirms a history of asthma. Ex-smoker and without a history of seasonal allergies. The ROS is otherwise negative. The patient's pmh, medications, allergies, and past visits are reviewed. PHYSICAL EXAM: BP 138/80 Pulse 76 Temp 36.8 ?C (98.2 ?F) (Temporal Artery) Resp 16 Wt 101.2 kg (223 lb) SpO2 97% BMI 38.28 kg/m? General appearance: alert, cooperative, pleasant, in no acute distress Head: Normocephalic Eyes: conjunctiva pink and moist, no icterus, sclera white, non-injected Ears: Right ear: Normal, TM - clear with good landmarks. Left ear: Normal, TM - clear with good landmarks Nose: clear rhinorrhea, mild erythema, maxillary sinus tenderness. Oropharynx:moist without lesions Neck:supple and no adenopathy Heart: Negative. RRR without obvious murmur, gallop, or rubs. No ectopy. Lungs: clear to auscultation, good air exchange, pulse ox 97%, faint wheeze noted upper airway cleared with cough ASSESSMENT/PLAN: 1. Viral URI with cough - ICD9: 465.9, ICD10: J06.9, B97.89 - Discussed viral etiology and rationale for treatment. - Symptomatic treatment with prn analgesia - Supportive care with fluids and rest - The patient may also use OTC cough and cold meds as needed and nasal saline gtts and suction prn. - Follow up in 5 days if symptoms persist or sooner if worsening of symptoms - METHYLPREDNISOLONE 4 MG TABLETS IN A DOSE PACK- Now - DOXYCYCLINE HYCLATE 100 MG TABLET if no better in 3-5 days Prescription instructions reviewed with patient as applicable. Potential red flag symptoms discussed with the patient. Reviewed appropriate action plan to take if red flag symptoms occur. Patient agreeable to treatment plan. Marbin Grimes APRN.[employer] Referring Provider: SELF [[id number]] Allergies As of Date: 01/19/2018 Noted Allergy Reaction CEPHALOSPORINS 04/03/2003 Comments: itching Cherries [Other] 04/03/2003 Comments: angioedema and tongue blisters CIPROFLOXACIN 09/11/2016 10 - Anaphylaxis Comments: It was used with flagyl at the same time so uknown which is the cause CODEINE 04/03/2003 Comments: rash swelling DICLOFENAC 08/28/2003 Comments: rash DILAUDID (HYDROMORPHONE (BULK)) 06/10/2015 9 - Itching FLAGYL (METRONIDAZOLE HCL) 09/11/2016 10 - Anaphylaxis Comments: It was used with flagyl at the same time so uknown which is the cause Philomena [Other] 04/03/2003 Comments: angioedematous tongue and blisters LYRICA (PREGABALIN) 07/04/2017 7 - Swelling OPIOIDS - MORPHINE ANALOGUES 08/28/2003 Comments: rash Pears [Other] 10/09/2003 PENICILLINS 04/03/2003 10 - Anaphylaxis Comments: ?anaphylaxis, patient tolerates zosyn PERCOCET (OXYCODONE-ACETAMINOPHEN)08/13/2004 9 - Itching SOAP 05/30/2006 VICODIN (HYDROCODONE-ACETAMINOPHE*05/21/2009 2 - Rash ZITHROMAX (AZITHROMYCIN) 03/24/2016 2 - Rash Date Reviewed: 01/19/2018 Reviewed by: Armida Bruce Ma - Fully Assessed Reason for Visit: Cough [28] Cmt: Cough and wheezing x 2 days Primary Visit Diagnosis:Viral URI with cough [J06.9, B97.89] Order(s):methylPREDNISolone (MEDROL, HARRIS,) 4 mg Dose-PackFollow dosing instructions, take with food.Disp: 1 PackageRfl: 0 [START ON 01/24/2018] doxycycline (VIBRA-TABS) 100 mg tabletTake 1 tablet by mouth twice daily for 7 days. Do not fill after 02/02/18Disp: 14 tabletRfl: 0 Prescriptions as of 01/19/2018 Sig: METHYLPREDNISOLONE 4 MG TABLE* Follow dosing instructions, t* DOXYCYCLINE HYCLATE 100 MG TA* Take 1 tablet by mouth twice * MUCINEX 600 MG TABLET, EXTEND* Take 1 tablet by mouth twice * COMPOUNDED PRESCRIPTION Patient is to wear 2 L supple* COMPOUNDED PRESCRIPTION Provide nebulizer kit and becky* AMMONIUM LACTATE 12 % LOTION Apply 1 application to affect* LANCETS Test blood sugar(s) 4 times d* MOMETASONE-FORMOTEROL HFA 200* Inhale 2 Puffs as instructed * MAGNESIUM 71.5 MG (MAGNESIUM * Take 1 tablet by mouth twice * COMPOUNDED PRESCRIPTION Nocturnal oximetry on 2 L. DM* GLIMEPIRIDE 2 MG TABLET Take 2 tablets by mouth daily* IPRATROPIUM-ALBUTEROL 0.5 MG-* Inhale 3 mL as instructed fou* INSULIN GLARGINE (U-100) 100 * Inject 17 Units subcutaneousl* HYDROCORTISONE 2.5 % TOPICAL * Apply 1 application to affect* TRIAMCINOLONE ACETONIDE 0.1 %* Apply 1 application to affect* ATORVASTATIN 40 MG TABLET Take 1 tablet by mouth once d* BLOOD SUGAR DIAGNOSTIC STRIPS Test blood sugar(s) 4 times d* PEN NEEDLE, DIABETIC 31 GAUGE* Use one needle per dose (Lant* OMEPRAZOLE 20 MG CAPSULE,DARREN* Take 1 capsule by mouth daily* ADHESIVE TAPE 2 X 10 YARD Use for dressings for healing* METRONIDAZOLE 500 MG TABLET Take 1 tablet by mouth three * DULOXETINE 60 MG CAPSULE,DARREN* Take 1 capsule by mouth once * GUAIFENESIN ER 600 MG TABLET,* Take 1 tablet by mouth twice * MICONAZOLE NITRATE 2 % TOPICA* Apply 1 application to affect* BLOOD SUGAR DIAGNOSTIC STRIPS Test blood sugar(s) 4 times d* ALCOHOL SWABS Test blood sugars 4 x's daily* TRAZODONE 100 MG TABLET Take 3 tablets by mouth daily* TOPIRAMATE 100 MG TABLET Take 1 tablet by mouth once d* BUTRANS 15 MCG/HOUR TRANSDERM* Apply 1 Patch as directed daniela* MELATONIN 3 MG TABLET Take 2 tablets by mouth daily* THIOTHIXENE 2 MG CAPSULE Take 1 capsule by mouth daily* VRAYLAR 3 MG CAPSULE Take 3 mg by mouth daily at b* WHITE PETROLATUM-MINERAL OIL * Apply 1 application to affect* TRIAMCINOLONE ACETONIDE 0.1 %* Apply 1 application to affect* SODIUM CHLORIDE 0.65 % NASAL * Use 1 [place] in the nose as ne* LUBRICANTS TOPICAL GEL Apply 1 application to affect* Problem List As Of Date 01/19/2018 Noted Resolved SCHIZOPHRENIA NEC [295.8] INVALID FOR* More... More... More... Tobacco use disorder [F17.200] INVALID FOR*11/18/2011 More... Routine general medical examination at a health*INVALID FOR*02/25/2013 More... MACULAR DEGENERATION NOS [H35.30] INVALID FOR* More... Diabetes mellitus type 2, uncontrolled, without*INVALID FOR* Priority: G More... Class 2 obesity due to excess calories with bod*INVALID FOR*11/08/2016 Priority: H More... More... Hyperlipidemia [E78.5] INVALID FOR* More... Sleep Apnea [G47.30] INVALID FOR* More... Asthma [J45.909] Priority: D More... Ventral hernia [K43.9] INVALID FOR* Acute postoperative respiratory insufficiency [*INVALID FOR*07/19/2016 Priority: C More... More... Electrolyte and fluid disorder [E87.8] INVALID FOR*03/03/2015 Priority: I More... More... More... More... More... More... Septic shock due to Escherichia coli (HCC) [A41*INVALID FOR*07/19/2016 Priority: B More... Altered mental status [R41.82] INVALID FOR*12/09/2015 Priority: D More... Hyperbilirubinemia [E80.6] INVALID FOR*03/08/2015 More... Hypernatremia [E87.0] INVALID FOR*03/14/2015 Priority: K More... More... More... Electrolyte imbalance [E87.8] INVALID FOR*07/19/2016 Priority: J More... More... Metabolic acidosis [E87.2] INVALID FOR*03/19/2015 More... Acute kidney injury (HCC) [N17.9] INVALID FOR*03/19/2015 More... Small intestinal anastomotic leak [K91.89] INVALID FOR* More... Hypernatremia [E87.0] INVALID FOR*03/19/2015 More... 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 DOXYCYCLINE HYCLATE 100 MG TABLET 14 t* 0 01/24/2018 01/19/2018 Class: Print RX Route: ORAL Sig: Take 1 tablet by mouth twice daily for 7 days. Do not fill after 02/02/18 DOXYCYCLINE HYCLATE 100 MG TABLET 14 t* 0 01/24/2018 01/31/2018 Route: ORAL Sig: Take 1 tablet by mouth twice daily for 7 days. Do not fill after 02/02/18 Medications Discontinued During This Encounter doxycycline (VIBRA-TABS) 100 mg tabl* 14 t* 0 01/24/2018 01/19/2018 Class: Print RX Route: ORAL Sig: Take 1 tablet by mouth twice daily for 7 days. Do not fill after 02/02/18 Disc: Reason for discontinue is not on file. Encounter Status:Closed by MARBIN GRIMES CNP on 01/19/18 URINE DRUG SCREEN Collected: 01/10/2018 Status: F Source: [place] ([place]) 1:46 PM [facility] REPOSITORY Order Comment: List of Drugs Taken or Suspected? UNK TYPE CODE TESTS RESULT OUT OF RANGE REFERENCE UNITS LAB L505.0075 TO BE Normal CONFIRMED Result Comment: CONFIRMATORY TESTING FOR ALL POSITIVE URINE DRUG SCREEN RESULTS WILL ONLY BE SENT OUT UPON PHYSICIAN ORDER. VISTA Urine Drug Screen methods provide only preliminary analytical test results. A more specific alternate chemical method must be used in order to obtain a confirmed analytical result. Gas chromatography/mass spectrometery (GC/MS) is the preferred confirmatory method. Clinical consideration and professional judgement should be applied to any drug of abuse test result, particularly when preliminary positive results are used. URINE TCA TESTING MUST BE ORDERED SEPARATELY. USE TEST MNEMONIC: [facility] LAB L505.5005 VISTA UDS PH 6 Normal LAB L505.5015 <1000 ng/mL AMPHETAMINES Normal NEGATIVE LAB L505.5025 < 200 ng/mL BARBITIURATES Normal NEGATIVE LAB L505.5035 < 200 ng/mL BENZODIAZIPINE Normal NEGATIVE LAB L505.5045 < 300 ng/mL COCAINE Normal NEGATIVE LAB L505.5055 < 500 ng/mL ECSTACY Normal NEGATIVE LAB L505.5065 < 300 ng/mL METHADONE Normal NEGATIVE LAB L505.5075 < 300 ng/mL OPIATES Normal NEGATIVE LAB L505.5085 < 25 ng/mL PCP Normal NEGATIVE LAB L505.5095 < 50 ng/mL THC Normal NEGATIVE Performed By: #### L505.5000 #### [facility] [address] [place], [address] [facility] Collected: 01/10/2018 Status: F Source: [place] PROCEDURE 2 1:46 PM [facility] REPOSITORY Order Comment: List Test(s) Ordered by Physician: [id number] TAPENTADOL TYPE CODE TESTS RESULT OUT OF RANGE REFERENCE UNITS LAB L801.[address] [facility] LAB TEST 2 Result Comment: TEST RESULT UNITS REFERENCE INTERVAL Tapentadol, Urine Tapentadol Positive Ppulkh=462 Tapentadol Confirm 74769 ng/mL Syfzhk=465 Tapentadol detected; this finding is consistent with use of medication Nucynta, or generic formulations. TESTING PERFORMED AT [facility]. ORIGINAL REPORT ON FILE IN LAB CONTAINS ADDITIONAL TEST SITE INFORMATION. Performed By: #### L801.1543 #### [facility] [address] [place], [address] [facility] Collected: 01/10/2018 Status: F Source: [place] PROCEDURE 1:46 PM [facility] REPOSITORY Order Comment: Test(s) Ordered: [id number] URINE DRUG SCREEN TYPE CODE TESTS RESULT OUT OF RANGE REFERENCE UNITS LAB L801.[address] [facility] LAB TEST Result Comment: TEST RESULT UNITS REF INTERVAL [id number] 6+OXYCODONE-BUND (ng/mL) DRUG RESULT SCREEN CUTOFF ____ Amphetamines,Urine Negative ng/mL 1000 Amphetamine test includes Amphetamine and Methamphetamine. Barbiturates Negative ng/mL 200 Benzodiazepines Negative ng/mL 200 Cannabinoid Negative ng/mL 20 Cocaine (Metab) Negative ng/mL 300 Opiates Negative ng/mL 300 Opiates test includes Codeine, Morphine, Hydromorphone, Hydrocodone. Oxycodone/Oxymorphone,Urine Negative ng/mL 300 Test includes Oxydodone and Oxymorphone. TESTING PERFORMED AT [facility]. ORIGINAL REPORT ON FILE IN LAB CONTAINS ADDITIONAL TEST SITE INFORMATION. Performed By: #### L801.1541 #### [facility] [address] [place], [address] PROGRESS Observed: 01/05/2018 Status: COMPLETED Source: [place] 2:50 PM [facility] [place] REPOSITORY O ID: [id number] Author: Zenaida Donnelly Ma Service: (none) Author Type: (none) Type: Progress Notes Filed: 01/05/2018 3:14 PM Note Text: 57 year old female here for INACTIVATED INFLUENZA VACCINE. 2949-1039 Season Patient is identified by name and date of : Yes [] CONTRAINDICATIONS color enhanced section Age less than 6 months? No Allergy to eggs, chicken, chicken feathers, or chicken dander? No Allergy to thimerosal (a preservative) or formaldehyde, gelatin? No History of severe reaction to any vaccine component or a previous dose of influenza vaccination? No History of Guillain-Wedowee Syndrome within 6 weeks after a previous influenza vaccine? No Patient is not moderately or severely ill? No Current temperature greater or equal to 100.4F? No History of Bone Marrow Transplant prior 6 months or solid organ transplant in the past 3 months ? No History of fainting after a prior injection or medical procedure? No- ? If patient has fainted in the past, the CDC recommends sitting or lying down for 15 minutes after the vaccination. [] VERIFICATION color enhanced section Was the answer Yes for any of the above contraindications? No contraindications present. Acceptable to proceed with vaccine. Patient/guardian agrees the above answers are true to the best of their knowledge? Yes Flu vaccine information sheet given? Yes See immunization activity in [facility] for details of immunizations adminstered today. Patient age: [age] year old For The 8928-6554 Flu Season 6-35 months old: Fluzone 0.25 ml - IM (Preservative Free) 3 years of age: Fluzone 0.5 ml - IM (Preservative Free) 3 years and older: Fluzone 0.5 ml- IM-(with Preservatives) 65+ years old: 2-49 years old Fluzone High-Dose 0.5 ml - IM (Preservative Free) FLUMIST- intranasal REMEMBER: If patient is less than 9 years of age and this is the first vaccine of Influenza to be received in any flu season, they should receive a second dose in one months time. CNNURSE Observed: 01/05/2018 Status: COMPLETED Source: [place] 2:50 PM [facility] REPOSITORY Nurse Visit (FAMPWS) CHRISTOPHER HOBSON ([id number]) 1960 F CHT Date Time Provider Department 01/05/18 2:50 PM [facility] NURSE FAMPWS During your visit today, we recorded the following information about you: Zenaida Donnelly Ma 01/05/2018 3:14 PM Signed 57 year old female here for INACTIVATED INFLUENZA VACCINE. Season Patient is identified by name and date of : Yes [] CONTRAINDICATIONS color enhanced section Age less than 6 months? No Allergy to eggs, chicken, chicken feathers, or chicken dander? No Allergy to thimerosal (a preservative) or formaldehyde, gelatin? No History of severe reaction to any vaccine component or a previous dose of influenza vaccination? No History of Guillain-Wedowee Syndrome within 6 weeks after a previous influenza vaccine? No Patient is not moderately or severely ill? No Current temperature greater or equal to 100.4F? No History of Bone Marrow Transplant prior 6 months or solid organ transplant in the past 3 months ? No History of fainting after a prior injection or medical procedure? No- ? If patient has fainted in the past, the CDC recommends sitting or lying down for 15 minutes after the vaccination. [] VERIFICATION color enhanced section Was the answer Yes for any of the above contraindications? No contraindications present. Acceptable to proceed with vaccine. Patient/guardian agrees the above answers are true to the best of their knowledge? Yes Flu vaccine information sheet given? Yes See immunization activity in [facility] for details of immunizations adminstered today. Patient age: [age] year old For The 2351-2548 Flu Season 6-35 months old: Fluzone 0.25 ml - IM (Preservative Free) 3 years of age: Fluzone 0.5 ml - IM (Preservative Free) 3 years and older: Fluzone 0.5 ml- IM-(with Preservatives) 65+ years old: 2-49 years old Fluzone High-Dose 0.5 ml - IM (Preservative Free) FLUMIST- intranasal REMEMBER: If patient is less than 9 years of age and this is the first vaccine of Influenza to be received in any flu season, they should receive a second dose in one months time. Referring Provider: DEVEN QUINTANA [[id number]] Allergies As of Date: 01/05/2018 Noted Allergy Reaction CEPHALOSPORINS 04/03/2003 Comments: itching Cherries [Other] 04/03/2003 Comments: angioedema and tongue blisters CIPROFLOXACIN 09/11/2016 10 - Anaphylaxis Comments: It was used with flagyl at the same time so uknown which is the cause CODEINE 04/03/2003 Comments: rash swelling DICLOFENAC 08/28/2003 Comments: rash DILAUDID (HYDROMORPHONE (BULK)) 06/10/2015 9 - Itching FLAGYL (METRONIDAZOLE HCL) 09/11/2016 10 - Anaphylaxis Comments: It was used with flagyl at the same time so uknown which is the cause Philomena [Other] 04/03/2003 Comments: angioedematous tongue and blisters LYRICA (PREGABALIN) 07/04/2017 7 - Swelling OPIOIDS - MORPHINE ANALOGUES 08/28/2003 Comments: rash Pears [Other] 10/09/2003 PENICILLINS 04/03/2003 10 - Anaphylaxis Comments: ?anaphylaxis, patient tolerates zosyn PERCOCET (OXYCODONE-ACETAMINOPHEN)08/13/2004 9 - Itching SOAP 05/30/2006 VICODIN (HYDROCODONE-ACETAMINOPHE*05/21/2009 2 - Rash ZITHROMAX (AZITHROMYCIN) 03/24/2016 2 - Rash Date Reviewed: 12/20/2017 Reviewed by: Samaria Gil RN - Fully Assessed Reason for Visit: Imm/Inj [58] Cmt: Flu Vaccine Primary Visit Diagnosis:Need for vaccination [Z23] Order(s):INFLUENZA VACCINE QUADRIVALENT AGE 3 YRS PLUS + IM [[id number]] Order #: [id number] Prescriptions as of 01/05/2018 Sig: COMPOUNDED PRESCRIPTION Patient is to wear 2 L supple* COMPOUNDED PRESCRIPTION Provide nebulizer kit and becky* AMMONIUM LACTATE 12 % LOTION Apply 1 application to affect* LANCETS Test blood sugar(s) 4 times d* MOMETASONE-FORMOTEROL HFA 200* Inhale 2 Puffs as instructed * MAGNESIUM 71.5 MG (MAGNESIUM * Take 1 tablet by mouth twice * COMPOUNDED PRESCRIPTION Nocturnal oximetry on 2 L. DM* DEXTROMETHORPHAN-GUAIFENESIN * Take 1 tablet by mouth twice * GLIMEPIRIDE 2 MG TABLET Take 2 tablets by mouth daily* IPRATROPIUM-ALBUTEROL 0.5 MG-* Inhale 3 mL as instructed fou* INSULIN GLARGINE (U-100) 100 * Inject 17 Units subcutaneousl* HYDROCORTISONE 2.5 % TOPICAL * Apply 1 application to affect* TRIAMCINOLONE ACETONIDE 0.1 %* Apply 1 application to affect* ATORVASTATIN 40 MG TABLET Take 1 tablet by mouth once d* BLOOD SUGAR DIAGNOSTIC STRIPS Test blood sugar(s) 4 times d* PEN NEEDLE, DIABETIC 31 GAUGE* Use one needle per dose (Lant* OMEPRAZOLE 20 MG CAPSULE,DARREN* Take 1 capsule by mouth daily* ADHESIVE TAPE 2 X 10 YARD Use for dressings for healing* METRONIDAZOLE 500 MG TABLET Take 1 tablet by mouth three * DULOXETINE 60 MG CAPSULE,DARREN* Take 1 capsule by mouth once * GUAIFENESIN ER 600 MG TABLET,* Take 1 tablet by mouth twice * MICONAZOLE NITRATE 2 % TOPICA* Apply 1 application to affect* BLOOD SUGAR DIAGNOSTIC STRIPS Test blood sugar(s) 4 times d* ALCOHOL SWABS Test blood sugars 4 x's daily* TRAZODONE 100 MG TABLET Take 3 tablets by mouth daily* TOPIRAMATE 100 MG TABLET Take 1 tablet by mouth once d* BUTRANS 15 MCG/HOUR TRANSDERM* Apply 1 Patch as directed daniela* MELATONIN 3 MG TABLET Take 2 tablets by mouth daily* THIOTHIXENE 2 MG CAPSULE Take 1 capsule by mouth daily* VRAYLAR 3 MG CAPSULE Take 3 mg by mouth daily at b* WHITE PETROLATUM-MINERAL OIL * Apply 1 application to affect* TRIAMCINOLONE ACETONIDE 0.1 %* Apply 1 application to affect* SODIUM CHLORIDE 0.65 % NASAL * Use 1 [place] in the nose as ne* LUBRICANTS TOPICAL GEL Apply 1 application to affect* Problem List As Of Date 01/05/2018 Noted Resolved SCHIZOPHRENIA NEC [295.8] INVALID FOR* More... More... More... Tobacco use disorder [F17.200] INVALID FOR*11/18/2011 More... Routine general medical examination at a [facility]*INVALID FOR*02/25/2013 More... MACULAR DEGENERATION NOS [H35.30] INVALID FOR* More... Diabetes mellitus type 2, uncontrolled, without*INVALID FOR* Priority: G More... Class 2 obesity due to excess calories with bod*INVALID FOR*11/08/2016 Priority: H More... More... Hyperlipidemia [E78.5] INVALID FOR* More... Sleep Apnea [G47.30] INVALID FOR* More... Asthma [J45.909] Priority: D More... Ventral hernia [K43.9] INVALID FOR* Acute postoperative respiratory insufficiency [*INVALID FOR*07/19/2016 Priority: C More... More... Electrolyte and fluid disorder [E87.8] INVALID FOR*03/03/2015 Priority: I More... More... More... More... More... More... Septic shock due to Escherichia coli (HCC) [A41*INVALID FOR*07/19/2016 Priority: B More... Altered mental status [R41.82] INVALID FOR*12/09/2015 Priority: D More... Hyperbilirubinemia [E80.6] INVALID FOR*03/08/2015 More... Hypernatremia [E87.0] INVALID FOR*03/14/2015 Priority: K More... More... More... Electrolyte imbalance [E87.8] INVALID FOR*07/19/2016 Priority: J More... More... Metabolic acidosis [E87.2] INVALID FOR*03/19/2015 More... Acute kidney injury (HCC) [N17.9] INVALID FOR*03/19/2015 More... Small intestinal anastomotic leak [K91.89] INVALID FOR* More... Hypernatremia [E87.0] INVALID FOR*03/19/2015 More... 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] INVALID FOR* Complete heart block (HCC) [I44.2] INVALID FOR* Cardiac pacemaker in situ [Z95.0] INVALID FOR* Right bundle branch block [I45.10] INVALID FOR* Hypoalbuminemia [E88.09] INVALID FOR* Hypoproteinemia (HCC) [E77.8] INVALID FOR* Class 1 obesity due to excess calories with ser*INVALID FOR* Follow-up and Disposition History Recorded Encounter Status:Closed by ZENAIDA DONNELLY MA on 01/05/18 PROGRESS Observed: 12/20/2017 Status: COMPLETED Source: [place] 1:42 PM [facility] REPOSITORY HNO ID: [id number] Author: Suzanna Escalante Service: (none) Author Type: Physician Type: Progress Notes Filed: 12/21/2017 1:26 PM Note Text: Initial Office Visit Subjective: This 57 year old female presents to clinic for diabetic foot check. Patient has the following complaints: burning in b/l feet. Patient states her feet have been burning for her the past 2-3 years. Patient admits to being diabetic for 20+ years now and states that their blood sugar was 300 mg/dL yesterday AM. Patient + B/T/N in feet at this time. Patient -pain in legs when walking. No other pedal complaints at this time. No change in medications or medical history since last visit. PAIN EVALUATION 12/20/2017 Pain Score: 10 Pain Location: Other: See Comment bilateral feet Description: Sore Duration Amount of Time: 1 Duration Units: Years Frequency: Continuous Intervention: Reposition;Relaxation;Other: See comment switching shoes Hemoglobin A1C (%) Date Value 11/14/2017 9.2 07/24/2017 9.0 08/26/2016 8.5 05/23/2016 8.9 02/09/2016 8.2 PCP: Tiff Pearson MD PAST MEDICAL HISTORY Diagnosis Date - Acute anaphylaxis 09/15/2016 - Acute peptic ulcer, unspecified site, without mention of hemorrhage, perforation, or obstruction 1999 - Asthma - Bowel disease Colon polyps - Bowel obstruction (HCC) 02/24/2015 Presented to hospital with obstruction, now status post exploratory laparotomy on Feb 23, 2015 with resection of small bowel, and ventral hernia repair, left with fascia open but skin closed History of multiple abdominal surgeries making case very difficult, now with 2 anastamosis sites, unable to close fascia Enteric contents from midline incision 03/06/2015 CT abd 03/[address] abd 03/11 unchanged, persistent but stable enteric leak -- continue medical management of leak with antibiotics, NPO, drain, and TPN on transfer to [facility] - Chronic obstructive pulmonary disease (COPD) ([facility]) - Dermatophytosis of nail 02/05/2010 - Diabetes ([facility]) 1999 On insulin 2015 - Dyslipidemia - Encephalopathy in sepsis 02/28/2015 CT head and EEG done to confirm - Hematoma 06/17/2016 - Hematuria, unspecified 04/09/2008 UA with blood in 04-14: need to repeat as cloudy with protein as well - Hypotension 02/25/2015 Hypotensive despite fluid resuscitation, remains on pressors. Secondary to E.coli bactremia -- continue norepinephrine and vasopressin to maintain MAP 65 - Lunate fracture, closed 11/22/2012 - MALIGNANT NEOPLASM COLON NOS(aka COLON) 10/09/2003 Ostomy in Q since surgical intervention in 2004 per pt Reviewed eval with Dr. Hunter in 07: suspected leakage through the rectal area - Mild protein-calorie malnutrition (HCC) 03/09/2015 Secondary to small bowel obstruction requiring surgical intervention, 2 anastomosis sites, with continued enteric leak and stool from incision -- NPO for enteric leak -- Nutrition via parenteral route with daily adjustment of lytes - On total parenteral nutrition (TPN) 04/22/2015 - Other specified disorders of pancreatic internal secretion 04/1999 Diabetes on metformin - Pain in limb 02/05/2010 - Paranoid schizophrenia, chronic condition ([facility]) 1985 - Peptic ulcer, unspecified site, unspecified as acute or chronic, without mention of hemorrhage, perforation, or obstruction 10/11/2004 - Personal history of colonic polyps 2000 - Physical deconditioning 03/14/2015 Due to prolonged ICU stay -- PT/OT consulted -- lift OOB today with lift team - Post-op pain 02/25/2015 Fentanyl PRN - Postoperative anemia due to acute blood loss 02/25/2015 Hgb 8.8 today, no active bleeding Last transfused 03/14 -- follow daily CBC and coags - S/P colostomy ([facility]) - SBO (small bowel obstruction) ([facility]) 09/11/2016 - Skin lesion 03/09/2015 Skin sloughing on LEs with blisters, indeterminate purple lesions on back -> now improving Per Dermatology consult: linear erosions are most likely irritant contact dermatitis or pressure induced erosions. In addition there are small edema bullae on the abdominal wall Both require gentle wound care and emollients such as aquaphor or petroleum jelly -- monitor - Tracheostomy in place (HCC) Placed 2015 after prolonged respiratory failure, unable to liberate from vent. - Unspecified migraine 1998 - Ventral hernia with bowel obstruction 09/10/2016 Added automatically from request for surgery [id number] - VRE bacteremia 09/29/2016 Current Outpatient Prescriptions: Lancets lancets Test blood sugar(s) 4 times daily as directed. Dx: Type 2 DM - Uncontrolled E11.65 Insulin: Yes mometasone-formoterol (DULERA) 200-5 mcg/actuation inhaler Inhale 2 Puffs as instructed twice daily. Magnesium Chloride (SLOW-MAG) 71.5 mg TbEC Take 1 tablet by mouth twice daily. COMPOUNDED PRESCRIPTION Nocturnal oximetry on 2 L. DME: [facility] ([place]) dextromethorphan-guaiFENesin (MUCINEX DM) 30-600 mg per tablet Take 1 tablet by mouth twice daily. glimepiride (AMARYL) 2 mg tablet Take 2 tablets by mouth daily with breakfast. ipratropium-albuterol (DUONEB) 0.5 mg-3 mg(2.5 mg base)/3 mL nebu Inhale 3 mL as instructed four times daily as needed (wheezing). Use over 5-15minutes per nebulizer. insulin glargine (BASAGLAR KWIKPEN U-100 INSULIN) 100 unit/mL (3 mL) inpn Inject 17 Units subcutaneously daily at bedtime. hydrocortisone 2.5 % cream Apply 1 application to affected area twice daily as needed. Location: neck (reaction to tape adhesive) May also use for poison tania. triamcinolone acetonide (KENALOG) 0.1 % cream Apply 1 application to affected area twice daily. Apply to affected area. Location: arms atorvastatin (LIPITOR) 40 mg tablet Take 1 tablet by mouth once daily. blood sugar diagnostic (FREESTYLE INSULINX) test strip Test blood sugar(s) 4 times daily and as needed. Dx: Type 2 DM - Uncontrolled E11.65 Insulin: Yes insulin needles, DISPOSABLE, (PEN NEEDLE) 31 gauge x 16 ndle Use one needle per dose (Lantus and Humalog). 5 per day. omeprazole (PRILOSEC) 20 mg capsule Take 1 capsule by mouth daily before breakfast. 1/2 hr before meal. Adhesive Tape (DURAPORE SURGICAL) 2 X 10 -yard tape Use for dressings for healing tracheostomy site. metroNIDAZOLE (FLAGYL) 500 mg tablet Take 1 tablet by mouth three times daily. DULoxetine (CYMBALTA) 60 mg capsule Take 1 capsule by mouth once daily. guaiFENesin (MUCINEX) 600 mg 12 hr tablet Take 1 tablet by mouth twice daily. miconazole (CADENCE ANTIFUNGAL) 2 % cream Apply 1 application to affected area twice daily. To perirectal and buttocks area blood sugar diagnostic (BLOOD GLUCOSE TEST) test strip Test blood sugar(s) 4 times daily and as needed as directed. Dx: Type 2 DM - Uncontrolled E11.65 Insulin: Yes alcohol swabs (SURE-PREP ALCHOLOL PREP PADS) padm Test blood sugars 4 x's daily. Dx: E11.65 Insulin: Yes traZODone (DESYREL) 100 mg tablet Take 3 tablets by mouth daily at bedtime. [facility] topiramate (TOPAMAX) 100 mg tablet Take 1 tablet by mouth once daily. Per psychiatrist MONIQUE 15 mcg/hour ptwk Apply 1 Patch as directed every Monday. Per Dr. Trevizo melatonin 3 mg Take 2 tablets by mouth daily at bedtime. thiothixene (NAVANE) 2 mg capsule Take 1 capsule by mouth daily at bedtime. Per psychiatryLorene NP VRAYLAR 3 mg cap Take 3 mg by mouth daily at bedtime. white petrolatum-mineral oil (EUCERIN) cream Apply 1 application to affected area as needed for Dry Skin (all dry skin areas). triamcinolone acetonide (KENALOG) 0.1 % cream Apply 1 application to affected area three times daily. Apply sparingly to area for rash/itching till rash resolves. For contact dermatitis sodium chloride (SALINE MIST) 0.65 % nasal spray Use 1 [place] in the nose as needed for Cold/Allergy Symptoms. Dispense 1 bottle (not 1 ml) Lubricants (K-Y LUBRICATING) gel Apply 1 application to affected area as needed (Use as needed for Tracheostomy changes). No current facility-administered medications for this visit. ALLERGIES Allergen Reactions - Cephalosporins itching - Cherries [Other] angioedema and tongue blisters - Ciprofloxacin Anaphylaxis It was used with flagyl at the same time so uknown which is the cause - Codeine rash swelling - Diclofenac rash - Dilaudid [Hydromorp* Itching - Flagyl [Metronidazo* Anaphylaxis It was used with flagyl at the same time so uknown which is the cause - Philomena [Other] angioedematous tongue and blisters - Lyrica [Pregabalin] Swelling - Opioids - Morphine * rash - Pears [Other] - Penicillins Anaphylaxis ?anaphylaxis, patient tolerates zosyn - Percocet [Oxycodone* Itching - Soap - Vicodin [Hydrocodon* Rash - Zithromax [Azithrom* Rash PAST SURGICAL HISTORY Procedure Laterality Date - ANESTH,VAGINAL DELIVERY 1977,1979,1985, 1986 w/ episiotomies - APPENDECTOMY - DANDC, DIAG AND/OR THERAPEUTIC 1977 Dilation AND curettage - INDUCED ABORTN BY DANDC - LIGATE FALLOPIAN TUBE Tubal ligation - PAST SURGICAL HISTORY OF 2004 Abdominal surgeries for hernia repairs - PAST SURGICAL HISTORY OF 2008 Ileostomy - PAST SURGICAL HISTORY OF 09/12/2016 Underwent ex lap, takedown of prior ostomy, RONEY and creation of new end ileostomy on 09/12/16 for parastomal hernia with closed loop hernia - PAST SURGICAL HISTORY OF 09/28/2016 Permanent Pacemaker Placement for complete heart block - REDUCE BOWEL OBSTRUCTION Late February 2015 acute bowel obstruction. SB resection. - REMOVAL OF TONSILS,10+ Y/O - [facility] N/CARPAL TUNNEL SURG 2006 Carpal tunnel decomp right - [facility] N/CARPAL TUNNEL SURG Carpal tunnel decomp left - REVISION OF COLOSTOMY,COMPLICATED 2000 3-4 surgeries - TRACHEOSTOMY HX 03/12/2015 protracted critical stay, failure to wean after bowel obtruction FAMILY HISTORY Problem Relation Age of Onset - other (Pneumonia) Mother - Heart Father - Thyroid Daughter - Thyroid Daughter - Asthma No Family History - Cancer No Family History No lung cancer. - COPD No Family History Social History Marital status: Spouse name: Alphonso Years of education: Number of children: 4 Social History Main Topics Smoking status: Former Smoker Packs/day: 2.00 Years: 45.00 Types: Cigarettes Start date: 1965 Quit date: 08/27/2010 Smokeless tobacco: Never Used Alcohol use: No Drug use: Yes Comment: Cocaine abuse, quit before 1999. Sexual activity: Yes Partners with: Male REVIEW OF SYSTEMS GENERAL: Negative for Malaise, significant weight loss, fever RESPIRATORY: Negative for cough, wheezing and shortness of breath CARDIOVASCULAR: Negative for chest pain, leg swelling and palpitations GI: Negative for abdominal discomfort, blood in stools or black stools and change in bowel habits : Negative for dysuria, frequency and incontinence MUSCULOSKELETAL: Negative for joint pain or swelling, back pain, and muscle pain. SKIN: Negative for lesions, rash, and itching. HEMATOLOGY/LYMPHOLOGY Negative for prolonged bleeding, bruising easily, and swollen nodes. ENDOCRINE: Negative for cold or heat intolerance, polyuria, polydipsia and goiter. NEURO: Positive for burning in b/l feet The remainder of the review of systems is noncontributory. Objective: Constitutional: Pt is a well developed 57 year old female who is alert, oriented, cooperative and in no apparent distress. Eyes: Following during examination. No redness or drainage. Respiratory: RR normal and nonlabored. Even breathing. No evidence of distress. Psychology: Patient is engaged during conversation. Normal affect and mood. Does not appear depressed or anxious. Vasc: DP and PT pulses are faintly palpable bilateral. CFT is less than 5 seconds bilateral. Skin temperature is warm to warm proximal to distal bilateral. There is mild edema or varicosities noted. Hair growth present. Neuro: Protective sensation is decreased to the foot and toes when tested with the 5.07 SWM bilateral. Vibratory sensation is absent at the hallux bilateral. + Significant neurological defecits. Derm: Inspection and palpation performed. Nails 1-5 b/l are normal in length and thickness. Skin is dry and scaly b/l. Hyperkeratosis noted to not present. NO ulcerations, scars, verruca or other lesions noted. Ortho: Ankle joint DF is full with the knee extended and full with knee flexed. No pain or crepitus noted. STJ, MTJ ROM are full and free of pain or crepitus. Muscle strength is 5/5 for dorsiflexors, plantarflexors, inverters, everters. Assessment: (E11.49) Other diabetic neurological complication associated with type 2 diabetes mellitus (HCC) (primary encounter diagnosis) (R09.89) Diminished pulses in lower extremity (L85.3) Xerosis cutis Plan: 1. Patient was seen and evaluated. 2. Patient was instructed on the continued importance of diabetic foot care along with proper diet and keeping their blood sugar under control to prevent complications. Instructions given both oral and written. 3. Discussed burning in feet. Likely that of neuropathy. Continue control of A1c. Diet and exercise discussed. 4. Discussed faint pulses in lower extremity. Recommend baseline pvr 5 . Discussed dryness of b/l feet. Recommend use of lotion to feet daily. 6 . F/u in 3 months Suzanna Escalante DPM CNOV Observed: 12/20/2017 Status: COMPLETED Source: [place] 1:40 PM [facility] REPOSITORY Office Visit (PODIWS) CHRISTOPHER HOBSON ([id number]) 1960 F T Date Time Provider Department 12/20/17 1:40 PM SUZANNA ESCALANTE PODSERGIO During your visit today, we recorded the following information about you: Samaria Gil RN 12/21/2017 1:26 PM Signed AMB ROOMING INTAKE FLOWSHEET DATA Risk Screening Do you have concerns about personal safety or safety in the home?: No Pain Pain Score: 10/10 Pain Location: Other: See Comment (bilateral feet) Description: Sore Duration Amount of Time: 1 Duration Units: Years Frequency: Continuous Intervention: Reposition, Relaxation, Other: See comment (switching shoes) New patient presents for a diabetic foot exam. Pt states her blood sugar was 300 mg/dL yesterday at bedtime. Pt c/o constant soreness to the bottoms of both feet. She has tried rest, elevation and even switching shoes but nothing so far has helped. She is also requesting an order for diabetic shoes. Suzanna Escalante DPM 12/21/2017 1:26 PM Signed Initial Office Visit Subjective: This 57 year old female presents to clinic for diabetic foot check. Patient has the following complaints: burning in b/l feet. Patient states her feet have been burning for her the past 2-3 years. Patient admits to being diabetic for 20+ years now and states that their blood sugar was 300 mg/dL yesterday AM. Patient + B/T/N in feet at this time. Patient -pain in legs when walking. No other pedal complaints at this time. No change in medications or medical history since last visit. PAIN EVALUATION 12/20/2017 Pain Score: 10 Pain Location: Other: See Comment bilateral feet Description: Sore Duration Amount of Time: 1 Duration Units: Years Frequency: Continuous Intervention: Reposition;Relaxation;Other: See comment switching shoes Hemoglobin A1C (%) Date Value 11/14/2017 9.2 07/24/2017 9.0 08/26/2016 8.5 05/23/2016 8.9 02/09/2016 8.2 PCP: Tiff Pearson MD PAST MEDICAL HISTORY Diagnosis Date - Acute anaphylaxis 09/15/2016 - Acute peptic ulcer, unspecified site, without mention of hemorrhage, perforation, or obstruction 1999 - Asthma - Bowel disease Colon polyps - Bowel obstruction (HCC) 02/24/2015 Presented to hospital with obstruction, now status post exploratory laparotomy on Feb 23, 2015 with resection of small bowel, and ventral hernia repair, left with fascia open but skin closed History of multiple abdominal surgeries making case very difficult, now with 2 anastamosis sites, unable to close fascia Enteric contents from midline incision 03/06/2015 CT abd 03/[address] abd 03/11 unchanged, persistent but stable enteric leak -- continue medical management of leak with antibiotics, NPO, drain, and TPN on transfer to [facility] - Chronic obstructive pulmonary disease (COPD) ([facility]) - Dermatophytosis of nail 02/05/2010 - Diabetes ([facility]) 2000 On insulin 2015 - Dyslipidemia - Encephalopathy in sepsis 02/28/2015 CT head and EEG done to confirm - Hematoma 06/17/2016 - Hematuria, unspecified 04/09/2008 UA with blood in 2-09: need to repeat as cloudy with protein as well - Hypotension 02/25/2015 Hypotensive despite fluid resuscitation, remains on pressors. Secondary to E.coli bactremia -- continue norepinephrine and vasopressin to maintain MAP 65 - Lunate fracture, closed 11/22/2012 - MALIGNANT NEOPLASM COLON NOS(aka COLON) 10/09/2003 Ostomy in LLQ since surgical intervention in 2004 per pt Reviewed eval with Dr. 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/1999 Diabetes on metformin - Pain in limb 02/05/2010 - Paranoid schizophrenia, chronic condition ([facility]) 1985 - Peptic ulcer, unspecified site, unspecified as acute or chronic, without mention of hemorrhage, perforation, or obstruction 10/11/2004 - Personal history of colonic polyps 2000 - Physical deconditioning 03/14/2015 Due to prolonged ICU stay -- PT/OT consulted -- lift OOB today with lift team - Post-op pain 02/25/2015 Fentanyl PRN - Postoperative anemia due to acute blood loss 02/25/2015 Hgb 8.8 today, no active bleeding Last transfused 03/14 -- follow daily CBC and coags - S/P colostomy ([facility]) - SBO (small bowel obstruction) ([facility]) 09/11/2016 - Skin lesion 03/09/2015 Skin sloughing on LEs with blisters, indeterminate purple lesions on back -> now improving Per Dermatology consult: linear erosions are most likely irritant contact dermatitis or pressure induced erosions. In addition there are small edema bullae on the abdominal wall Both require gentle wound care and emollients such as aquaphor or petroleum jelly -- monitor - Tracheostomy in place ([facility]) Placed 2015 after prolonged respiratory failure, unable to liberate from vent. - Unspecified migraine 1998 - Ventral hernia with bowel obstruction 09/10/2016 Added automatically from request for surgery [id number] - VRE bacteremia 09/29/2016 Current Outpatient Prescriptions: Lancets lancets Test blood sugar(s) 4 times daily as directed. Dx: Type 2 DM - Uncontrolled E11.65 Insulin: Yes mometasone-formoterol (DULERA) 200-5 mcg/actuation inhaler Inhale 2 Puffs as instructed twice daily. Magnesium Chloride (SLOW-MAG) 71.5 mg TbEC Take 1 tablet by mouth twice daily. COMPOUNDED PRESCRIPTION Nocturnal oximetry on 2 L. DME: [facility] ([place]) dextromethorphan-guaiFENesin (MUCINEX DM) 30-600 mg per tablet Take 1 tablet by mouth twice daily. glimepiride (AMARYL) 2 mg tablet Take 2 tablets by mouth daily with breakfast. ipratropium-albuterol (DUONEB) 0.5 mg-3 mg(2.5 mg base)/3 mL nebu Inhale 3 mL as instructed four times daily as needed (wheezing). Use over 5-15minutes per nebulizer. insulin glargine (BASAGLAR KWIKPEN U-100 INSULIN) 100 unit/mL (3 mL) inpn Inject 17 Units subcutaneously daily at bedtime. hydrocortisone 2.5 % cream Apply 1 application to affected area twice daily as needed. Location: neck (reaction to tape adhesive) May also use for poison tania. triamcinolone acetonide (KENALOG) 0.1 % cream Apply 1 application to affected area twice daily. Apply to affected area. Location: arms atorvastatin (LIPITOR) 40 mg tablet Take 1 tablet by mouth once daily. blood sugar diagnostic (FREESTYLE INSULINX) test strip Test blood sugar(s) 4 times daily and as needed. Dx: Type 2 DM - Uncontrolled E11.65 Insulin: Yes insulin needles, DISPOSABLE, (PEN NEEDLE) 31 gauge x 5/16 ndle Use one needle per dose (Lantus and Humalog). 5 per day. omeprazole (PRILOSEC) 20 mg capsule Take 1 capsule by mouth daily before breakfast. 1/2 hr before meal. Adhesive Tape (DURAPORE SURGICAL) 2 X 10 -yard tape Use for dressings for healing tracheostomy site. metroNIDAZOLE (FLAGYL) 500 mg tablet Take 1 tablet by mouth three times daily. DULoxetine (CYMBALTA) 60 mg capsule Take 1 capsule by mouth once daily. guaiFENesin (MUCINEX) 600 mg 12 hr tablet Take 1 tablet by mouth twice daily. miconazole (CADENCE ANTIFUNGAL) 2 % cream Apply 1 application to affected area twice daily. To perirectal and buttocks area blood sugar diagnostic (BLOOD GLUCOSE TEST) test strip Test blood sugar(s) 4 times daily and as needed as directed. Dx: Type 2 DM - Uncontrolled E11.65 Insulin: Yes alcohol swabs (SURE-PREP ALCHOLOL PREP PADS) padm Test blood sugars 4 x's daily. Dx: E11.65 Insulin: Yes traZODone (DESYREL) 100 mg tablet Take 3 tablets by mouth daily at bedtime. [facility] topiramate (TOPAMAX) 100 mg tablet Take 1 tablet by mouth once daily. Per psychiatrist MONIQUE 15 mcg/hour ptwk Apply 1 Patch as directed every Monday. Per Dr. Trevizo melatonin 3 mg Take 2 tablets by mouth daily at bedtime. thiothixene (NAVANE) 2 mg capsule Take 1 capsule by mouth daily at bedtime. Per psychiatry, Lorene Dupree NP VRAYLAR 3 mg cap Take 3 mg by mouth daily at bedtime. white petrolatum-mineral oil (EUCERIN) cream Apply 1 application to affected area as needed for Dry Skin (all dry skin areas). triamcinolone acetonide (KENALOG) 0.1 % cream Apply 1 application to affected area three times daily. Apply sparingly to area for rash/itching till rash resolves. For contact dermatitis sodium chloride (SALINE MIST) 0.65 % nasal spray Use 1 [place] in the nose as needed for Cold/Allergy Symptoms. Dispense 1 bottle (not 1 ml) Lubricants (K-Y LUBRICATING) gel Apply 1 application to affected area as needed (Use as needed for Tracheostomy changes). No current facility-administered medications for this visit. ALLERGIES Allergen Reactions - Cephalosporins itching - Cherries [Other] angioedema and tongue blisters - Ciprofloxacin Anaphylaxis It was used with flagyl at the same time so uknown which is the cause - Codeine rash swelling - Diclofenac rash - Dilaudid [Hydromorp* Itching - Flagyl [Metronidazo* Anaphylaxis It was used with flagyl at the same time so uknown which is the cause - Philomena [Other] angioedematous tongue and blisters - Lyrica [Pregabalin] Swelling - Opioids - Morphine * rash - Pears [Other] - Penicillins Anaphylaxis ?anaphylaxis, patient tolerates zosyn - Percocet [Oxycodone* Itching - Soap - Vicodin [Hydrocodon* Rash - Zithromax [Azithrom* Rash PAST SURGICAL HISTORY Procedure Laterality Date - ANESTH,VAGINAL DELIVERY 1977,1979,1985, 1986 w/ episiotomies - APPENDECTOMY - DANMARISA, DIAG AND/OR THERAPEUTIC 1977 Dilation AND curettage - INDUCED ABORTN BY GARCIA - LIGATE FALLOPIAN TUBE Tubal ligation - PAST SURGICAL HISTORY OF 2004 Abdominal surgeries for hernia repairs - PAST SURGICAL HISTORY OF 2008 Ileostomy - PAST SURGICAL HISTORY OF 09/12/2016 Underwent ex lap, takedown of prior ostomy, RONEY and creation of new end ileostomy on 09/12/16 for parastomal hernia with closed loop hernia - PAST SURGICAL HISTORY OF 09/28/2016 Permanent Pacemaker Placement for complete heart block - REDUCE BOWEL OBSTRUCTION Late February 2015 acute bowel obstruction. SB resection. - REMOVAL OF TONSILS,10+ Y/O - [facility] N/CARPAL TUNNEL SURG 2005 Carpal tunnel decomp right - [facility] N/CARPAL TUNNEL SURG Carpal tunnel decomp left - REVISION OF COLOSTOMY,COMPLICATED 2000 3-4 surgeries - TRACHEOSTOMY HX 03/12/2015 protracted critical stay, failure to wean after bowel obtruction FAMILY HISTORY Problem Relation Age of Onset - other (Pneumonia) Mother - Heart Father - Thyroid Daughter - Thyroid Daughter - Asthma No Family History - Cancer No Family History No lung cancer. - COPD No Family History Social History Marital status: Spouse name: Alphonso Years of education: Number of children: 4 Social History Main Topics Smoking status: Former Smoker Packs/day: 2.00 Years: 45.00 Types: Cigarettes Start date: 1965 Quit date: 08/27/2010 Smokeless tobacco: Never Used Alcohol use: No Drug use: Yes Comment: Cocaine abuse, quit before 1999. Sexual activity: Yes Partners with: Male REVIEW OF SYSTEMS GENERAL: Negative for Malaise, significant weight loss, fever RESPIRATORY: Negative for cough, wheezing and shortness of breath CARDIOVASCULAR: Negative for chest pain, leg swelling and palpitations GI: Negative for abdominal discomfort, blood in stools or black stools and change in bowel habits : Negative for dysuria, frequency and incontinence MUSCULOSKELETAL: Negative for joint pain or swelling, back pain, and muscle pain. SKIN: Negative for lesions, rash, and itching. HEMATOLOGY/LYMPHOLOGY Negative for prolonged bleeding, bruising easily, and swollen nodes. ENDOCRINE: Negative for cold or heat intolerance, polyuria, polydipsia and goiter. NEURO: Positive for burning in b/l feet The remainder of the review of systems is noncontributory. Objective: Constitutional: Pt is a well developed 57 year old female who is alert, oriented, cooperative and in no apparent distress. Eyes: Following during examination. No redness or drainage. Respiratory: RR normal and nonlabored. Even breathing. No evidence of distress. Psychology: Patient is engaged during conversation. Normal affect and mood. Does not appear depressed or anxious. Vasc: DP and PT pulses are faintly palpable bilateral. CFT is less than 5 seconds bilateral. Skin temperature is warm to warm proximal to distal bilateral. There is mild edema or varicosities noted. Hair growth present. Neuro: Protective sensation is decreased to the foot and toes when tested with the 5.07 SWM bilateral. Vibratory sensation is absent at the hallux bilateral. + Significant neurological defecits. Derm: Inspection and palpation performed. Nails 1-5 b/l are normal in length and thickness. Skin is dry and scaly b/l. Hyperkeratosis noted to not present. NO ulcerations, scars, verruca or other lesions noted. Ortho: Ankle joint DF is full with the knee extended and full with knee flexed. No pain or crepitus noted. STJ, MTJ ROM are full and free of pain or crepitus. Muscle strength is 5/5 for dorsiflexors, plantarflexors, inverters, everters. Assessment: (E11.49) Other diabetic neurological complication associated with type 2 diabetes mellitus (HCC) (primary encounter diagnosis) (R09.89) Diminished pulses in lower extremity (L85.3) Xerosis cutis Plan: 1. Patient was seen and evaluated. 2. Patient was instructed on the continued importance of diabetic foot care along with proper diet and keeping their blood sugar under control to prevent complications. Instructions given both oral and written. 3. Discussed burning in feet. Likely that of neuropathy. Continue control of A1c. Diet and exercise discussed. 4. Discussed faint pulses in lower extremity. Recommend baseline pvr 5 . Discussed dryness of b/l feet. Recommend use of lotion to feet daily. 6 . F/u in 3 months PETRA Richardson RN 12/20/2017 1:49 PM Signed FANCRU Please call to schedule appointment [place] [address], [facility] [address] PH: [phone] [place] [address], [place] [address] PH: [phone] [place] [address], [place] [address] PH: [phone] [place] [address], [place] [address] PH: [phone] or [phone] [place] [id number] Daryn Churchill, [facility] [address] PH: [phone] [place] [address], [facility] [address] PH: [phone] Referring Provider: SHEILA MATTHEW ([facility]) [[id number]] Allergies As of Date: 12/20/2017 Noted Allergy Reaction CEPHALOSPORINS 04/03/2003 Comments: itching Cherries [Other] 04/03/2003 Comments: angioedema and tongue blisters CIPROFLOXACIN 09/11/2016 10 - Anaphylaxis Comments: It was used with flagyl at the same time so uknown which is the cause CODEINE 04/03/2003 Comments: rash swelling DICLOFENAC 08/28/2003 Comments: rash DILAUDID (HYDROMORPHONE (BULK)) 06/10/2015 9 - Itching FLAGYL (METRONIDAZOLE HCL) 09/11/2016 10 - Anaphylaxis Comments: It was used with flagyl at the same time so uknown which is the cause Philomena [Other] 04/03/2003 Comments: angioedematous tongue and blisters LYRICA (PREGABALIN) 07/04/2017 7 - Swelling OPIOIDS - MORPHINE ANALOGUES 08/28/2003 Comments: rash Pears [Other] 10/09/2003 PENICILLINS 04/03/2003 10 - Anaphylaxis Comments: ?anaphylaxis, patient tolerates zosyn PERCOCET (OXYCODONE-ACETAMINOPHEN)08/13/2004 9 - Itching SOAP 05/30/2006 VICODIN (HYDROCODONE-ACETAMINOPHE*05/21/2009 2 - Rash ZITHROMAX (AZITHROMYCIN) 03/24/2016 2 - Rash Date Reviewed: 12/20/2017 Reviewed by: Samaria Gil RN - Fully Assessed Reason for Visit: New Patient [172] Primary Visit Diagnosis: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 DM* DEXTROMETHORPHAN-GUAIFENESIN * Take 1 tablet by mouth twice * GLIMEPIRIDE 2 MG TABLET Take 2 tablets by mouth daily* IPRATROPIUM-ALBUTEROL 0.5 MG-* Inhale 3 mL as instructed fou* INSULIN GLARGINE (U-100) 100 * Inject 17 Units subcutaneousl* HYDROCORTISONE 2.5 % TOPICAL * Apply 1 application to affect* TRIAMCINOLONE ACETONIDE 0.1 %* Apply 1 application to affect* ATORVASTATIN 40 MG TABLET Take 1 tablet by mouth once d* BLOOD SUGAR DIAGNOSTIC STRIPS Test blood sugar(s) 4 times d* PEN NEEDLE, DIABETIC 31 GAUGE* Use one needle per dose (Lant* OMEPRAZOLE 20 MG CAPSULE,DARREN* Take 1 capsule by mouth daily* ADHESIVE TAPE 2 X 10 YARD Use for dressings for healing* METRONIDAZOLE 500 MG TABLET Take 1 tablet by mouth three * DULOXETINE 60 MG CAPSULE,DARREN* Take 1 capsule by mouth once * GUAIFENESIN ER 600 MG TABLET,* Take 1 tablet by mouth twice * MICONAZOLE NITRATE 2 % TOPICA* Apply 1 application to affect* BLOOD SUGAR DIAGNOSTIC STRIPS Test blood sugar(s) 4 times d* ALCOHOL SWABS Test blood sugars 4 x's daily* TRAZODONE 100 MG TABLET Take 3 tablets by mouth daily* TOPIRAMATE 100 MG TABLET Take 1 tablet by mouth once d* BUTRANS 15 MCG/HOUR TRANSDERM* Apply 1 Patch as directed daniela* MELATONIN 3 MG TABLET Take 2 tablets by mouth daily* THIOTHIXENE 2 MG CAPSULE Take 1 capsule by mouth daily* VRAYLAR 3 MG CAPSULE Take 3 mg by mouth daily at b* WHITE PETROLATUM-MINERAL OIL * Apply 1 application to affect* TRIAMCINOLONE ACETONIDE 0.1 %* Apply 1 application to affect* SODIUM CHLORIDE 0.65 % NASAL * Use 1 [place] in the nose as ne* LUBRICANTS TOPICAL GEL Apply 1 application to affect* AMMONIUM LACTATE 12 % LOTION Apply 1 application to affect* Problem List As Of Date 12/20/2017 Noted Resolved SCHIZOPHRENIA NEC [295.8] INVALID FOR* More... More... More... Tobacco use disorder [F17.200] INVALID FOR*11/18/2011 More... Routine general medical examination at a [facility]*INVALID FOR*02/25/2013 More... MACULAR DEGENERATION NOS [H35.30] INVALID FOR* More... Diabetes mellitus type 2, uncontrolled, without*INVALID FOR* Priority: G More... Class 2 obesity due to excess calories with bod*INVALID FOR*11/08/2016 Priority: H More... More... Hyperlipidemia [E78.5] INVALID FOR* More... Sleep Apnea [G47.30] INVALID FOR* More... Asthma [J45.909] Priority: D More... Ventral hernia [K43.9] INVALID FOR* Acute postoperative respiratory insufficiency [*INVALID FOR*07/19/2016 Priority: C More... More... Electrolyte and fluid disorder [E87.8] INVALID FOR*03/03/2015 Priority: I More... More... More... More... More... More... Septic shock due to Escherichia coli (HCC) [A41*INVALID FOR*07/19/2016 Priority: B More... Altered mental status [R41.82] INVALID FOR*12/09/2015 Priority: D More... Hyperbilirubinemia [E80.6] INVALID FOR*03/08/2015 More... Hypernatremia [E87.0] INVALID FOR*03/14/2015 Priority: K More... More... More... Electrolyte imbalance [E87.8] INVALID FOR*07/19/2016 Priority: J More... More... Metabolic acidosis [E87.2] INVALID FOR*03/19/2015 More... Acute kidney injury (HCC) [N17.9] INVALID FOR*03/19/2015 More... Small intestinal anastomotic leak [K91.89] INVALID FOR* More... Hypernatremia [E87.0] INVALID FOR*03/19/2015 More... 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] INVALID FOR* Complete heart block (HCC) [I44.2] INVALID FOR* Cardiac pacemaker in situ [Z95.0] INVALID FOR* Right bundle branch block [I45.10] INVALID FOR* Hypoalbuminemia [E88.09] INVALID FOR* Hypoproteinemia (HCC) [E77.8] INVALID FOR* Class 1 obesity due to excess calories with ser*INVALID FOR* Other instructions from your clinician: [facility] [employer] Please call to schedule appointment [place] [address] [facility], [facility] [address] PH: [phone] [place] [address] [facility] [address] [address] PH: [phone] [place] [id number] [facility] [address] PH: [phone] [place] [address] [facility] [address] PH: [phone] or [phone] [place] [address] [facility] [address] PH: [phone] [place] [address] [facility] [address] PH: [phone] Prescriptions ordered this encounter Disp Refills Start End AMMONIUM LACTATE 12 % LOTION 500 g 5 12/20/2017 12/20/2018 Route: TOPICAL Sig: Apply 1 application to affected area as needed. Disposition: Return in about 3 months (around 03/22/2018) for nail care. Follow-up and Disposition History Recorded Encounter Status:Closed by SUZANNA ESCALANTE DPM on 12/21/17 PROGRESS Observed: 12/20/2017 Status: COMPLETED Source: [place] 1:28 PM [facility] RE[facility]IT[facility] HNO ID: [id number] Author: Samaria Gil RN Service: (none) Author Type: (none) Type: Progress Notes Filed: 12/21/2017 1:26 PM Note Text: AMB ROOMING INTAKE FLOWSHEET DATA Risk Screening Do you have concerns about personal safety or safety in the home?: No Pain Pain Score: 10/10 Pain Location: Other: See Comment (bilateral feet) Description: Sore Duration Amount of Time: 1 Duration Units: Years Frequency: Continuous Intervention: Reposition, Relaxation, Other: See comment (switching shoes) New patient presents for a diabetic foot exam. Pt states her blood sugar was 300 mg/dL yesterday at bedtime. Pt c/o constant soreness to the bottoms of both feet. She has tried rest, elevation and even switching shoes but nothing so far has helped. She is also requesting an order for diabetic shoes. Observed: 12/11/2017 Status: F Source: [place] CULTURE, THROAT 3:48 PM [facility] REPOSITORY [place] CLOSURE Culture, Throat ORGANISM 1: Staphylococcus aureus Amount Growth 3+ Staphylococcus aureus: REACTION Benzylpenicillin NF >=0.5 R Cefoxitin *NF - Clindamycin $$ >=8 R Inducable Clindamycin Resistan - Erythromycin $ >=8 R Gentamicin $ <=0.5 S Levofloxacin $ >=8 R Linezolid $$$$ 2 S Moxifloxicin *NF >=8 R Oxacillin NF <=0.25 S Tigecycline $$$$ 0.25 S Rifampin $$ <=0.5 S Tetracycline NF <=1 S Trimethoprim/Sulfametho $ <=10 S Vancomycin $ 1 S (NF) indicates non-formulary drug at [facility]. Approval by Infectious Disease Specialist required before non-formulary drugs may be ordered and/or dispensed. * CLSI guidelines does not recommend testing of cephalosporins. This interpretation is deduced from Beta-lactam/penicillin results. Performed By: #### M100.1000 #### [facility] [address] [place], [address] 12 LEAD ELECTROCARDIOGRAM Observed: 12/05/2017 Status: F Source: [place] 2:59 PM [facility] REPOSITORY [facility] Cardiovascular Services [address] [place] [address] 12 Lead EKG 12/04/17 0720 MR#: [id number] Acct: [id number] Name: CHRISTOPHER HOBSON Rep #: [id number] : 1960 57 From: Braden Londono MD Attending Dr: Anthony Talavera MD Status: DEP [facility] Ordering Dr: Anthony Talavera MD Date: 12/04/17 Location: [facility] Sex: F C Admitted: Test Reason : PREOP Blood Pressure : / mmHG Vent. Rate : 079 BPM Atrial Rate : 079 BPM P-R Int : 176 ms QRS Dur : 128 ms QT Int : 414 ms P-R-T Axes : 040 000 018 degrees QTc Int : 474 ms Normal sinus rhythm Right bundle branch block Abnormal ECG When compared with ECG of 16-NOV-2016 20:45, Right bundle branch block is now Present Confirmed by SPRING BLACKWELL, BRADEN ([id number]), non linear editor ABHISHEK GONZALES ([id number]) on 12/05/2017 2:58:56 PM Referred By: Anthony Talavera Confirmed By:BRADEN LONDONO MD 12/05/17 1459 Date Braden Londono MD CC: Anthony Talavera MD; Tiff Pearson MD Signed BEDSIDE GLUCOSE Collected: 12/04/2017 Status: F Source: [place] 12:24 PM [facility] REPOSITORY TYPE CODE TESTS RESULT OUT OF REFERENCE UNITS RANGE LAB L501.080 70-110 mg/dL High BEDSIDE GLU 267 Result Comment: MANAGEMENT OF PATIENT CARE PER NURSING PROTOCOL Performed By: #### L501.080 #### [facility] Point of Care [address] [place] [address] BEDSIDE GLUCOSE Collected: 12/04/2017 Status: F Source: [place] 12:06 PM [facility] REPOSITORY TYPE CODE TESTS RESULT OUT OF REFERENCE UNITS RANGE LAB L501.080 70-110 mg/dL High BEDSIDE GLU 285 Result Comment: MANAGEMENT OF PATIENT CARE PER NURSING PROTOCOL Performed By: #### L501.080 #### [facility] Point of Care [address] [place] [address] OPERATIVE REPORT Observed: 12/04/2017 Status: F Source: [place] 12:02 PM [facility] REPOSITORY [facility] Medical Records Department [address] [place] [address] Operative Report 12/04/17 1143 MR#: [id number] Acct: [id number] Name: CHRISTOPHER HOBSON Rep #: [id number] : 1960 57 From: Anthony Talavera MD PCP: Tiff Pearson MD Status: [facility] Y Location: [place] [address] Report of Operation Date of Procedure: 12/04/17 Pre-Operative Diagnosis: tracheocutaneous fistula Post-Operative Diagnosis: same Surgery/Procedure Performed:: Closure tracheocutaneous fistula Description of Surgical Findings:: as above Type of Anesthesia:: General Anesthesiologist: Solo Sandoval Specimen's removed: fistula Drains: vascular loop Estimated Blood Loss (mL): minimal Description of Procedure: The patient was taken to the OR on 12/04/17. She was placed in the supine position on the OR table. She was given sufficient general endotracheal anesthesia. The neck was extended. The skin of the neck and stoma were prepped and draped steriley. 1% lidocaine with epinephrine (1:152735). was injected into the tissue around the skin. I then had anesthesia deflate the balloon to verify that ventilation with a deflated cuff caused air to leak from the stoma. This was indeed the case. Next, I made an elliptical incision with a 15 blade in a horizontal fashion. The incision as carried down through the skin. Hemostasis was achieved with monopolar cautery. I then used cautery and sharp dissection to establish a plane around the fistula tract. The tract was controlled with allis clamps and eventually the dissection was carried down to the front face of the trachea. Next, I dissected out the left and right strap muscles. The right strap muscles were much easier to skeletonize secondary to scarring. I also dissected scar and adipose in a plane superficial to the straps. Then, I placed 3, 3-0 silk retention sutures on the outer aspect of the fistula. Next, I placed a bowen tip suction through fistula and onto the endotracheal tube. The fistula tract was excised superficial to the retention sutures with a 15 blade. I then used 4-0 PDS suture to close the fistula. This was done in an interrupted, vertical mattress fashion to imbricate the lining toward the trachea. Once this was completed, I filled the wound with saline. We closed the patients mouth and nose and hand bagged (ventilated) the patient to a pressure of 30 cm of H2O. No bubbles were visualized in the wound. We repeated this and again saw no bubbles in the wound. Next, I swung the strap flaps medial and tacked them together with interrupted 4-0 vicryl. The retention sutures were removed. The leak test was then repeated with saline in the wound and again there were no bubbles visualized. I then closed the adipose over the midline with 4-0 vicryl. I placed a vascular loop beneath the adipose layer. The subcutaneous tissue was closed with 4-0 vicryl. The skin was closed with 5-0 interrupted Nylon. The drain was sewn to the skin with the nylon. A pressure dressing was applied. The patient was awoken and brought to the recovery room in stable condition. Blood loss minimal, replacement none. Sponge, needle and instrument count were correct at the end of the procedure. 12/04/17 1202 <Electronically signed by Anthony Talavera MD> Date Anthony Talavera MD CC: Anthony Talavera MD; Tiff Pearson MD Signed DISCHARGE INSTRUCTION Observed: 12/04/2017 Status: F Source: [place] 11:37 AM [facility] REPOSITORY [facility] Medical Records Department [address] [place] [address] Instructions for Home/Discharge Instructions 12/04/17 1137 MR#: [id number] Acct: [id number] Name: CHRISTOPHER HOBSON Rep #: [id number] : 1960 57 From: Anthony Talavera MD PCP: Tiff Pearson MD Status: [place] [facility] You will use the following diet at home:: Regular Discharge Activity: May Shower Additional Activity Instructions:: Follow up tomorrow with Dr. Talavera for dressing removal. Keep dressing dry Allergies/Adverse Reactions: Allergies azithromycin Allergy (Verified 11/28/17 14:47) Rash Cephalosporins Allergy (Verified 11/28/17 14:47) Rash codeine Allergy (Verified 11/28/17 14:47) Rash diclofenac [Diclofenac] Allergy (Verified 11/28/17 14:47) Rash hydrocodone bitartrate [From Vicodin] Allergy (Verified 11/28/17 14:47) Rash hydromorphone HCl [From Dilaudid] Allergy (Verified 11/28/17 14:47) Rash Opioids - Morphine Analogues Allergy (Verified 11/28/17 14:47) Rash Penicillins Allergy (Verified 11/28/17 14:47) Anaphylaxis Sulfa (Sulfonamide Antibiotics) Allergy (Verified 11/28/17 14:47) Rash cherries Allergy (Uncoded 11/28/17 14:47) Angioedema philomena Allergy (Uncoded 11/28/17 14:47) Angioedema pears Adverse Reaction (Uncoded 11/28/17 14:47) Unknown soap Adverse Reaction (Uncoded 11/28/17 14:47) Unknown patient states i cannot use hand soap. I have to use body soap. Medications to take at Discharge Topiramate [Topamax] 100 mg PO BID 03/01/17 Guaifenesin [Mucinex] 600 mg PO BID #10 tab.er.12h 08/28/17 hydrocortisone 2.5 % topical cream 1 applic TOPICAL DAILY 30 Days #30 10/31/17 insulin glargine (U-100) 100 unit/mL (3 mL) subcutaneous pen 17 unit SC QHS 10/31/17 ipratropium-albuterol 0.5 mg-3 mg(2.5 mg base)/3 mL nebulization soln 3 ml INHALATION 4X/DAY 10/31/17 magnesium 64 mg (magnesium chloride) tablet,delayed release 64 mg PO BID 30 Days #60 10/31/17 thiothixene 2 mg capsule 2 mg PO DAILY 30 Days #30 10/31/17 trazodone 100 mg tablet 300 mg PO QHS 30 Days #90 10/31/17 glimepiride 4 mg tablet 4 mg PO DAILY 30 Days #30 11/01/17 Amitriptyline HCl [Elavil] 25 mg PO QHS 11/28/17 Melatonin/Pyridoxine [Melatonin 5 mg Tablet] 2 each PO QHS 11/28/17 Omeprazole [Prilosec] 20 mg PO DAILY 12/04/17 Primary Care Physician: Tiff Pearson MD [Primary Care Provider] - Test Results: Test results from this visit will be discussed in further detail at your follow-up appointment, if applicable. 12/04/17 1137 <Electronically signed by Anthony Talavera MD> Date Anthony Talavera MD CC: Tiff Pearson MD FISTULA Observed: 12/04/2017 Status: F Source: [place] 9:15 AM [facility] REPOSITORY Patient: CHRISTOPHER HOBSON : 1960 (57/F) Acct Num: [id number] Phys: Anthony Talavera MD Unit Num: [id number] Loc: [facility] Specimen: [id number] Received: 12/04/17 - 1236 Spec Type: Fistula TISSUES 1 TISSUES: Trachea, NOS GROSS DESCRIPTION Received in fixative is one container labeled with the patient's name and designated tracheocutaneous fistula. The specimen consists of a piece of pink soft tissue measuring 1.5 x 1 x 0.5 cm. The specimen is serially sectioned and submitted entirely in one cassette. / CHRISTO:herman 12/04/17 TC:3 CPT: 03547 HEADER OPERATION: Closure tracheocutaneous fistula PRE-OP DIAGNOSIS: Tracheocutaneous fistula TISSUE SUBMITTED: Tracheocutaneous fistula MICROSCOPIC DESCRIPTION Slides are reviewed. MICROSCOPIC DIAGNOSIS Tracheocutaneous fistula: A piece of skin with underlying tissue with mild chronic inflammation, clinically tracheocutaneous fistula. CHRISTO:herman 12/05/17 Signed Filemon Mcdowell 12/05/17 <signature on file> Performed By: #### PFIST #### [facility] [address] [place], [place], [address] BEDSIDE GLUCOSE Collected: 12/04/2017 Status: F Source: [place] 7:10 AM [facility] REPOSITORY TYPE CODE TESTS RESULT OUT OF REFERENCE UNITS RANGE LAB L501.080 70-110 mg/dL High BEDSIDE GLU 333 Result Comment: MANAGEMENT OF PATIENT CARE PER NURSING PROTOCOL Performed By: #### L501.080 #### [facility] Point of Care [address] [place], [place] [address] CBC-COMPLETE BLOOD CNT Collected: 11/28/2017 Status: F Source: [place] NO DIFF 3:34 PM [facility] REPOSITORY TYPE CODE TESTS RESULT OUT OF RANGE REFERENCE UNITS LAB L100.1000 4.4-11.0 K/mm3 Normal WBC 6.4 LAB L100.1200 4.2-5.4 M/mm3 Low RBC 3.93 LAB L100.1300 12.0-15.0 g/dl Low HGB 11.2 LAB L100.1400 37-47 % Low HCT 36.4 LAB L100.1500 81-99 fL Normal MCV 92.6 LAB L100.1600 27.0-32.0 pg Normal MCH 28.5 LAB L100.1700 32-36 g/gl Low MCHC 30.8 LAB L100.1810 11.6-14.6 % Normal RDW CV 14.1 LAB L100.1820 35.1-43.9 fl High RDW SD 46.4 LAB L100.1900 150-450 K/mm3 Normal PLT 187 LAB L100.2000 6.2-12.0 fl Normal MPV 10.4 Performed By: #### L100.0500 #### [facility] [address] [place], [place], [address] BASIC METABOLIC Collected: 11/28/2017 Status: F Source: [place] PROFILE (BMP) 3:34 PM [facility] REPOSITORY TYPE CODE TESTS RESULT OUT OF RANGE REFERENCE UNITS LAB L501.0100 74-106 mg/dL High GLU 218 Result Comment: Glucose result greater than or equal to 200 mg/dL suggests DIABETES MELLITUS per A.D.A. criteria. Please note revised GLUCOSE reference range effective 2017. LAB L501.1000 7-18 mg/dL Normal BUN 13 LAB L501.1100 0.55-1.02 mg/dL High CREAT,SERUM 1.05 Result Comment: The validity of the calculated GFR AND GFRAA in patients over 70 years has not been determined. Clinical correlation is essential. LAB L501.1110 >60 mL/min Low EST GFR 57 Result Comment: Non- GFR Calc LAB L501.1115 >60 mL/min Normal EST GFR - AA 69 Result Comment: GFR Calc LAB L501.1255 ml/min Normal Estimated CRCL 51.91 LAB L501.1300 10-20 RATIO Normal BUN/CRE 12.4 LAB L501.2200 8.5-10 mg/dL Normal .1 CA 8.7 LAB L501.5300 136-14 mmol/L Normal 5 NA 141 LAB L501.5600 3.5-5. mmol/L Normal 1 K 3.9 LAB L501.5900 98-107 mmol/L Normal CL 107 LAB L501.6100 21.0-3 mmol/L Normal 2.0 CO2 26.0 LAB L501.6200 5-15 Normal GAP 8 Performed By: #### L500.2500 #### [facility] [address] [facility] [place], [address] PACEMAKER CHECK Observed: 11/23/2017 Status: F Source: [place] 5:09 [facility] REPOSITORY [facility] [facility] [place] [address] Pacemaker Check Date of Service: 11/20/17 162 MR#: [id number] Acct: [id number] Name: JOCECHRISTOPHER DE LA CRUZ [place] Rep #: [id number] : 1960 From: Elisabeth Chapman Age/Sex: 57/F [place] [facility] [place]: Signed Billing Codes PM Device Codes: PM Dev Prog Eval, Single 11/20/17 1626 <Electronically signed by Elisabeth Chapman > Date Elisabeth Chapman 11/23/17 1709<Electronically signed by Braden Londono MD> Josafat Signature: Date (if applicable) Braden Londono MD CC: PROGRESS Observed: 11/17/2017 Status: COMPLETED Source: [place] 10:16 AM [facility] REPOSITORY HNO ID: [id number] Author: Romi Chavez Service: (none) Author Type: Registered Nurse Type: Progress Notes Filed: 11/20/2017 11:53 AM Note Text: PRIMARY CARE COORDINATION FOLLOW-UP NOTE Provider Action/FYI: Pt scheduled to see LDT 11/27 prior to surgery. Patient identified by name and date of . YES Spoke to spouse Summary: was concerned about pt not being seen by PCP prior to surgery on trach on Dec 04. I discussed at length with him and sched her prior to that. He was appreciative. Concerns: Pt has multiple issues and is sched for surgery early Dec and wants medical clearance from PCP prior. 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 plan for next outreach: Will follow up at appt Signature Romi Chavez medical legal investigator [employer] [facility] Observed: 11/17/2017 Status: COMPLETED Source: [place] 12:00 AM [facility] REPOSITORY Patient Outreach (INTMWS) CHRISTOPHER HOBSON ([id number]) 1960 F T Date Time Provider Department 11/17/17 ROMI GAONA During your visit today, we recorded the following information about you: Romi Montes RN 11/20/2017 11:53 AM Signed PRIMARY CARE COORDINATION FOLLOW-UP NOTE Provider Action/FYI: Pt scheduled to see LDT 11/27 prior to surgery. Patient identified by name and date of . YES Spoke to spouse Summary: was concerned about pt not being seen by PCP prior to surgery on trach on Dec 04. I discussed at length with him and sched her prior to that. He was appreciative. Concerns: Pt has multiple issues and is sched for surgery early Dec and wants medical clearance from PCP prior. 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 plan for next outreach: Will follow up at appt Signature Romi Chavez RN Ambulatory Wool Fleece Sorter Internal Medicine [facility] November 17, 2017 Allergies As of Date: 11/17/2017 Noted Allergy Reaction CEPHALOSPORINS 04/03/2003 Comments: itching Cherries [Other] 04/03/2003 Comments: angioedema and tongue blisters CIPROFLOXACIN 09/11/2016 10 - Anaphylaxis Comments: It was used with flagyl at the same time so uknown which is the cause CODEINE 04/03/2003 Comments: rash swelling DICLOFENAC 08/28/2003 Comments: rash DILAUDID (HYDROMORPHONE (BULK)) 06/10/2015 9 - Itching FLAGYL (METRONIDAZOLE HCL) 09/11/2016 10 - Anaphylaxis Comments: It was used with flagyl at the same time so uknown which is the cause Philomena [Other] 04/03/2003 Comments: angioedematous tongue and blisters LYRICA (PREGABALIN) 07/04/2017 7 - Swelling OPIOIDS - MORPHINE ANALOGUES 08/28/2003 Comments: rash Pears [Other] 10/09/2003 PENICILLINS 04/03/2003 10 - Anaphylaxis Comments: ?anaphylaxis, patient tolerates zosyn PERCOCET (OXYCODONE-ACETAMINOPHEN)08/13/2004 9 - Itching SOAP 05/30/2006 VICODIN (HYDROCODONE-ACETAMINOPHE*05/21/2009 2 - Rash ZITHROMAX (AZITHROMYCIN) 03/24/2016 2 - Rash Date Reviewed: 11/13/2017 Reviewed by: Francis Taylor Pneumatic Systems Operator - Fully Assessed Reason for Visit: Wool Fleece Sorter Chronic Care [5446] Prescriptions as of 11/17/2017 Sig: MAGNESIUM 71.5 MG (MAGNESIUM * Take 1 tablet by mouth twice * BUDESONIDE-FORMOTEROL HFA 160* Inhale 2 Puffs as instructed * COMPOUNDED PRESCRIPTION Nocturnal oximetry on 2 L. DM* DEXTROMETHORPHAN-GUAIFENESIN * Take 1 tablet by mouth twice * GLIMEPIRIDE 2 MG TABLET Take 2 tablets by mouth daily* IPRATROPIUM-ALBUTEROL 0.5 MG-* Inhale 3 mL as instructed fou* INSULIN GLARGINE (U-100) 100 * Inject 17 Units subcutaneousl* HYDROCORTISONE 2.5 % TOPICAL * Apply 1 application to affect* TRIAMCINOLONE ACETONIDE 0.1 %* Apply 1 application to affect* ATORVASTATIN 40 MG TABLET Take 1 tablet by mouth once d* BLOOD SUGAR DIAGNOSTIC STRIPS Test blood sugar(s) 4 times d* PEN NEEDLE, DIABETIC 31 GAUGE* Use one needle per dose (Lant* OMEPRAZOLE 20 MG CAPSULE,DARREN* Take 1 capsule by mouth daily* ADHESIVE TAPE 2 X 10 YARD Use for dressings for healing* METRONIDAZOLE 500 MG TABLET Take 1 tablet by mouth three * DULOXETINE 60 MG CAPSULE,DARREN* Take 1 capsule by mouth once * GUAIFENESIN ER 600 MG TABLET,* Take 1 tablet by mouth twice * MICONAZOLE NITRATE 2 % TOPICA* Apply 1 application to affect* BLOOD SUGAR DIAGNOSTIC STRIPS Test blood sugar(s) 4 times d* LANCETS Test blood sugar(s) 4 times d* ALCOHOL SWABS Test blood sugars 4 x's daily* TRAZODONE 100 MG TABLET Take 3 tablets by mouth daily* TOPIRAMATE 100 MG TABLET Take 1 tablet by mouth once d* BUTRANS 15 MCG/HOUR TRANSDERM* Apply 1 Patch as directed daniela* MELATONIN 3 MG TABLET Take 2 tablets by mouth daily* THIOTHIXENE 2 MG CAPSULE Take 1 capsule by mouth daily* VRAYLAR 3 MG CAPSULE Take 3 mg by mouth daily at b* WHITE PETROLATUM-MINERAL OIL * Apply 1 application to affect* TRIAMCINOLONE ACETONIDE 0.1 %* Apply 1 application to affect* SODIUM CHLORIDE 0.65 % NASAL * Use 1 [place] in the nose as ne* LUBRICANTS TOPICAL GEL Apply 1 application to affect* Problem List As Of Date 11/17/2017 Noted Resolved SCHIZOPHRENIA NEC [295.8] INVALID FOR* More... More... More... Tobacco use disorder [F17.200] INVALID FOR*11/18/2011 More... Routine general medical examination at a health*INVALID FOR*02/25/2013 More... MACULAR DEGENERATION NOS [H35.30] INVALID FOR* More... Diabetes mellitus type 2, uncontrolled, without*INVALID FOR* Priority: G More... Class 2 obesity due to excess calories with bod*INVALID FOR*11/08/2016 Priority: H More... More... Hyperlipidemia [E78.5] INVALID FOR* More... Sleep Apnea [G47.30] INVALID FOR* More... Asthma [J45.909] Priority: D More... Ventral hernia [K43.9] INVALID FOR* Acute postoperative respiratory insufficiency [*INVALID FOR*07/19/2016 Priority: C More... More... Electrolyte and fluid disorder [E87.8] INVALID FOR*03/03/2015 Priority: I More... More... More... More... More... More... Septic shock due to Escherichia coli (HCC) [A41*INVALID FOR*07/19/2016 Priority: B More... Altered mental status [R41.82] INVALID FOR*12/09/2015 Priority: D More... Hyperbilirubinemia [E80.6] INVALID FOR*03/08/2015 More... Hypernatremia [E87.0] INVALID FOR*03/14/2015 Priority: K More... More... More... Electrolyte imbalance [E87.8] INVALID FOR*07/19/2016 Priority: J More... More... Metabolic acidosis [E87.2] INVALID FOR*03/19/2015 More... Acute kidney injury (HCC) [N17.9] INVALID FOR*03/19/2015 More... Small intestinal anastomotic leak [K91.89] INVALID FOR* More... Hypernatremia [E87.0] INVALID FOR*03/19/2015 More... 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] INVALID FOR* Complete heart block (HCC) [I44.2] INVALID FOR* Cardiac pacemaker in situ [Z95.0] INVALID FOR* Right bundle branch block [I45.10] INVALID FOR* Hypoalbuminemia [E88.09] INVALID FOR* Hypoproteinemia (HCC) [E77.8] INVALID FOR* Class 1 obesity due to excess calories with ser*INVALID FOR* Encounter Status:Closed by ROMI CHAVEZ on 11/20/17 PROGRESS Observed: 11/15/2017 Status: COMPLETED Source: [place] 2:42 PM [facility] REPOSITORY HNO ID: [id number] Author: Thu Kessler Service: (none) Author Type: Electronic Warfare Operator Type: Progress Notes Filed: 11/15/2017 2:42 PM Note Text: Radiology Service Progress Note PATIENT NAME: Christopher Hobson DATE OF SERVICE: November 15, 2017 TIME: 2:42 PM PATIENT IDENTITY VERIFICATION COMPLETED USING TWO (2) METHODS: Patient confirmed name verbally and Date of . PATIENT GENDER DATA: Female. status: : No status: N/A PATIENT RELEVANT IMPLANT DATA REVIEWED: Not Applicable RADIOLOGY DEPARTMENT: Ultrasound PERIPHERAL IV DATA: Not applicable SIGNED BY: THU KESSLER RDMS RVBrandon November 15, 2017 2:42 PM CNCO Observed: 11/15/2017 Status: COMPLETED Source: [place] 2:39 PM [facility] REPOSITORY HNO ID: [id number] Author: Mammography Coordinator Service: (none) Author Type: Physician Type: Letter Filed: 11/16/2017 11:32 PM Note Text: November 15, 2017 PID: [id number] Christopher Hobson [address] [address] [place] [address] Dear Ms. Hobson, We are pleased to inform you that the results of your recent breast imaging exam on 11/15/2017 are normal and we recommend that you return to your annual screening Mammography schedule. Early detection of cancer is very important. We also understand recommendations regarding breast cancer screening are controversial. Please discuss with your primary care provider which strategy is best for you and whether a mammogram is right for you. Your imaging studies and report will be kept on file at [facility] as part of your permanent medical record and are available for your continuing care. Thank you for allowing us to help in meeting your health care needs. Sincerely, Dr. Delgado Interpreting Radiologist [facility] (Return to Annual Mammogram schedule) CNCO Observed: 11/15/2017 Status: COMPLETED Source: [place] 2:38 PM [facility] REPOSITORY HNO ID: [id number] Author: Mammography Coordinator Service: (none) Author Type: Physician Type: Letter Filed: 11/16/2017 11:32 PM Note Text: November 15, 2017 PID: [id number] Christopher Hobson [address] [address] [place] [address] Dear Ms. Hobson, We are pleased to inform you that the results of your recent breast imaging exam on 11/15/2017 are normal and we recommend that you return to your annual screening Mammography schedule. Early detection of cancer is very important. We also understand recommendations regarding breast cancer screening are controversial. Please discuss with your primary care provider which strategy is best for you and whether a mammogram is right for you. Your imaging studies and report will be kept on file at [facility] as part of your permanent medical record and are available for your continuing care. Thank you for allowing us to help in meeting your health care needs. Sincerely, Dr. Delgado Interpreting Radiologist [facility] (Return to Annual Mammogram schedule) CNCO Observed: 11/15/2017 Status: COMPLETED Source: [place] 2:38 PM [facility] REPOSITORY HNO ID: [id number] Author: Mammography Coordinator Service: (none) Author Type: Physician Type: Letter Filed: 11/16/2017 11:32 PM Note Text: November 15, 2017 PID: [id number] Christopher Hobson [address] [address] [place] [address] Dear Ms. Hobson, We are pleased to inform you that the results of your recent breast imaging exam on 11/15/2017 are normal and we recommend that you return to your annual screening Mammography schedule. Early detection of cancer is very important. We also understand recommendations regarding breast cancer screening are controversial. Please discuss with your primary care provider which strategy is best for you and whether a mammogram is right for you. Your imaging studies and report will be kept on file at [facility] as part of your permanent medical record and are available for your continuing care. Thank you for allowing us to help in meeting your health care needs. Sincerely, Dr. Delgado Interpreting Radiologist [facility] (Return to Annual Mammogram schedule) URI[facility] US BREAST LTD Observed: 11/15/2017 Status: F Source: [place] RT 2:34 PM [facility] REPOSITORY * * *Final Report* * * DATE OF EXAM: Nov 15 2017 2:34PM U [id number] - [facility] US BREAST LTD RT / PROCEDURE REASON: Mastodynia * * * * Physician Interpretation * * * * #[id number] - [facility] US BREAST LTD RT ULTRASOUND OF RIGHT BREAST: 11/15/2017 HISTORY: Mastodynia. RESULT: No prior exams were available for comparison. Real-time ultrasound of the right breast was performed. IMPRESSION: NEGATIVE There is no sonographic evidence of malignancy. There is no abnormality seen in the right breast to correspond with the pain, however, clinical correlation is recommended. Return to annual mammogram screening schedule is recommended. Chanel dowd/lara:11/15/2017 14:38:50 Beater Lead: Thu Kessler, [facility] letter sent: Return to Annual Ultrasound BI-RADS: 1 Negative Alodize Machine Helper: Lara Transcribe Date/Time: Nov 15 2017 1:52P Dictated by : CHANEL DELGADO MD This examination was interpreted and the report reviewed and electronically signed by: CHANEL DELGADO MD on Nov 15 2017 2:38PM EST [id number] URI[facility] US BREAST LTD Observed: 11/15/2017 Status: F Source: [place] LT 2:34 PM [facility] REPOSITORY * * *Final Report* * * DATE OF EXAM: Nov 15 2017 2:34PM WRU [id number] - [facility] US BREAST LTD LT / PROCEDURE REASON: Mastodynia * * * * Physician Interpretation * * * * #[id number] - [facility] US BREAST LTD LT ULTRASOUND OF LEFT BREAST: 11/15/2017 HISTORY: Mastodynia. RESULT: No prior exams were available for comparison. Real-time ultrasound of the left breast was performed. IMPRESSION: NEGATIVE There is no sonographic evidence of malignancy. There is no abnormality seen in the left breast to correspond with the pain, however, clinical correlation is recommended. Return to annual mammogram screening schedule is recommended. Chanel dowd/lara:11/15/2017 14:39:15 Beater Lead: Thu Kessler, [facility] letter sent: Return to Annual Ultrasound BI-RADS: 1 Negative Alodize Machine Helper: Lara Transcribe Date/Time: Nov 15 2017 1:52P Dictated by : CHANEL DELGADO MD This examination was interpreted and the report reviewed and electronically signed by: CHANEL DELGADO MD on Nov 15 2017 2:39PM EST [id number] PROGRESS Observed: 11/15/2017 Status: COMPLETED Source: [place] 2:01 PM [facility] REPOSIT[facility] HNO ID: [id number] Author: Pari Reno Service: (none) Author Type: (none) Type: Progress Notes Filed: 11/15/2017 2:01 PM Note Text: Radiology Service Progress Note PATIENT NAME: Christopher Hobson DATE OF SERVICE: November 15, 2017 TIME: 2:01 PM PATIENT IDENTITY VERIFICATION COMPLETED USING TWO (2) METHODS: Patient confirmed name verbally and Date of . PATIENT GENDER DATA: Female. status: : No status: NO. PATIENT RELEVANT IMPLANT DATA REVIEWED: Not Applicable RADIOLOGY DEPARTMENT: Women's Health bilateral diagnostic mammogram PERIPHERAL IV DATA: Not applicable SIGNED BY: Pari Reno November 15, 2017 2:01 PM [facility] DIAGNOSTIC [facility] Observed: 11/15/2017 Status: F Source: [place] 1:37 PM [facility] MAIN CAMP[facility] REPOSITORY * * *Final Report* * * DATE OF EXAM: Nov 15 2017 1:37PM [facility] 0620 - [facility] DIAGNOSTIC SCOTT / PROCEDURE REASON: Mastodynia * * * * Physician Interpretation * * * * RESULT: #[id number] - [facility] DIAGNOSTIC [facility] BILATERAL DIGITAL DIAGNOSTIC MAMMOGRAM WITH CAD: 11/15/2017 HISTORY: Mastodynia /Bilateral Diagnostic Mammogram /Focal pain bilateral breasts /Abnormal Mammogram. RESULT: TECHNIQUE: The study was acquired using full field digital technology and interpreted from soft copy. Current study was also evaluated with a Computer Aided Detection (CAD). Comparison is made to exams dated: 04/26/2016 mammogram - [facility] and 11/20/2014 mammogram - [facility]. There are scattered fibroglandular elements in both breasts. No significant masses, calcifications, or other findings are seen in either breast. IMPRESSION: NEGATIVE There is no abnormality seen in either breast to correspond with the pain, however, clinical correlation is recommended. There is no mammographic evidence of malignancy. Return to annual mammogram screening schedule is recommended. Chanel dowd/lara:11/15/2017 14:38:19 Beater Lead: Pari DENT (R)), [facility] letter sent: Return to Annual Mammogram BI-RADS: 1 Negative Alodize Machine Helper: Lara Transcribe Date/Time: Nov 15 2017 12:52P Dictated by: CHANEL DELGADO MD This examination was interpreted and the report reviewed and electronically signed by: CHANEL DELGADO MD on Nov 15 2017 2:38PM EST [id number] ALBUMIN/CREAT RATIO Collected: 11/14/2017 Status: F Source: [place] 3:08 PM [facility] REPOSITORY TYPE CODE TESTS RESULT OUT OF REFERENCE UNITS RANGE LAB UCRR 20-300 mg/dL 68.4 Creatinine,Ur ine,Ran LAB UALBR 0.0-23.0 mg/L <12.0 Albumin Urine Random LAB UALBCR 0-30 mg/g Not Albumin/Creat calculated Ratio Performed By: #### UACR #### [facility] [address] [place], [place] [address] HEMOGLOBIN A1C Collected: 11/14/2017 Status: F Source: [place] 3:04 PM [facility] REPOSITORY TYPE CODE TESTS RESULT OUT OF REFERENCE UNITS RANGE LAB HGBA1C 4.3-5.6 % High Hemoglobin A1c 9.2 LAB HBA0 mg/dL Est. Average Glucose 217 Result Comment: eAG: (Estimated average glucose) is a calculated value from HgbA1c and is dental sales representative of the average blood glucose level in the last 2-3 month period. Performed By: #### HBA1C #### [facility] [address] [place], [place] [address] MAGNESIUM Collected: 11/14/2017 Status: F Source: [place] 3:04 PM [facility] REPOSITORY TYPE CODE TESTS RESULT OUT OF REFERENCE UNITS RANGE LAB MG 1.7-2.3 mg/dL Low Magnesium 1.5 Performed By: #### MG1 #### [facility] [address] [place], [place] [address] PROGRESS Observed: 11/13/2017 Status: COMPLETED Source: [place] 11:05 AM [facility] REPOSITORY HNO ID: [id number] Author: Sheila (Sports Physician) Older Service: (none) Author Type: Nurse Practitioner Type: Progress Notes Filed: 11/13/2017 3:18 PM Note Text: CC: follow-up HPI Christopher Hobson is a 57 year old female who presents today for routine follow-up. Denies any concerns or issues today. Diabetes: She reports checking her glucose on a once a day schedule at night with sugars in the < 250 range. Hypoglycemia: No She is compliant with medication(s) and is tolerating med(s) without any side effects. Excessive thirst, urinary frequency, numbness, tingling or pain in extremities, new or unusual visual symptoms, weight loss/gain or fatigue: Yes burning pain bottom of both feet Last Ophthalmology exam was over 3 years ago Patient's last HgA1C was Hemoglobin A1C (%) Date Value 07/24/2017 9.0 08/26/2016 8.5 ) REVIEW OF SYSTEMS General: no fevers, no chills, no night sweats, no recurrent infections, no change in appetite, no change in energy and no significant changes in weight Respiratory: no hemoptysis. History of asthma and trach. Reports occasional cough with clear sputum and wheezing. Denies SOB. Using Duoneb aerosol 4 times daily. Needs refill on Symbicort, has not used in months Cardiovascular: no chest pain, no chest pressure, no palpitations and no swelling PAST MEDICAL HISTORY Diagnosis Date - Acute peptic ulcer, unspecified site, without mention of hemorrhage, perforation, or obstruction 1999 - Asthma - Bowel disease Colon polyps - Chronic obstructive pulmonary disease (COPD) ([facility]) - Diabetes ([facility]) 1999 On insulin 2015 - Dyslipidemia - Lunate fracture, closed 11/22/2012 - Other specified disorders of pancreatic internal secretion 04/1999 Diabetes on metformin - Paranoid schizophrenia, chronic condition ([facility]) 1985 - Personal history of colonic polyps 2000 - S/P colostomy ([facility]) - Tracheostomy in place ([facility]) Placed 2015 after prolonged respiratory failure, unable to liberate from vent. - Unspecified migraine 1998 PAST SURGICAL HISTORY Procedure Laterality Date - ANESTH,VAGINAL DELIVERY 1977,1979,1985, 1986 w/ episiotomies - APPENDECTOMY - DANMARISA, DIAG AND/OR THERAPEUTIC 1977 Dilation AND curettage - INDUCED ABORTN BY DANOR - LIGATE FALLOPIAN TUBE Tubal ligation - PAST SURGICAL HISTORY OF 2004 Abdominal surgeries for hernia repairs - PAST SURGICAL HISTORY OF 2008 Ileostomy - PAST SURGICAL HISTORY OF 09/12/2016 Underwent ex lap, takedown of prior ostomy, RONEY and creation of new end ileostomy on 09/12/16 for parastomal hernia with closed loop hernia - PAST SURGICAL HISTORY OF 09/28/2016 Permanent Pacemaker Placement for complete heart block - REDUCE BOWEL OBSTRUCTION Late February 2015 acute bowel obstruction. SB resection. - REMOVAL OF TONSILS,10+ Y/O - REVISE MEDIAN N/CARPAL TUNNEL SURG 2005 Carpal tunnel decomp right - REVISE MEDIAN N/CARPAL TUNNEL SURG Carpal tunnel decomp left - REVISION OF COLOSTOMY,COMPLICATED 2000 3-4 surgeries - TRACHEOSTOMY HX 03/12/2015 protracted critical stay, failure to wean after bowel obtruction ALLERGIES Cephalosporins; Cherries [Other]; Ciprofloxacin; Codeine; Diclofenac; Dilaudid [Hydromorphone (Bulk)]; Flagyl [Metronidazole Hcl]; Philomena [Other]; Lyrica [Pregabalin]; Opioids - Morphine Analogues; Pears [Other]; Penicillins; Percocet [Oxycodone-Acetaminophen]; Soap; Vicodin [Hydrocodone-Acetaminophen]; Zithromax [Azithromycin] MEDICATIONS Magnesium Chloride (SLOW-MAG) 71.5 mg TbEC Take 1 tablet by mouth twice daily. COMPOUNDED PRESCRIPTION Nocturnal oximetry on 2 L. DME: [facility] ([place]) dextromethorphan-guaiFENesin (MUCINEX DM) 30-600 mg per tablet Take 1 tablet by mouth twice daily. glimepiride (AMARYL) 2 mg tablet Take 2 tablets by mouth daily with breakfast. ipratropium-albuterol (DUONEB) 0.5 mg-3 mg(2.5 mg base)/3 mL nebu Inhale 3 mL as instructed four times daily as needed (wheezing). Use over 5-15minutes per nebulizer. insulin glargine (BASAGLAR KWIKPEN U-100 INSULIN) 100 unit/mL (3 mL) inpn Inject 17 Units subcutaneously daily at bedtime. hydrocortisone 2.5 % cream Apply 1 application to affected area twice daily as needed. Location: neck (reaction to tape adhesive) May also use for poison tania. triamcinolone acetonide (KENALOG) 0.1 % cream Apply 1 application to affected area twice daily. Apply to affected area. Location: arms atorvastatin (LIPITOR) 40 mg tablet Take 1 tablet by mouth once daily. blood sugar diagnostic (FREESTYLE INSULINX) test strip Test blood sugar(s) 4 times daily and as needed. Dx: Type 2 DM - Uncontrolled Insulin: Yes insulin needles, DISPOSABLE, (PEN NEEDLE) 31 gauge x 5/16 ndle Use one needle per dose (Lantus and Humalog). 5 per day. omeprazole (PRILOSEC) 20 mg capsule Take 1 capsule by mouth daily before breakfast. 1/2 hr before meal. Adhesive Tape (DURAPORE SURGICAL) 2 X 10 -yard tape Use for dressings for healing tracheostomy site. metroNIDAZOLE (FLAGYL) 500 mg tablet Take 1 tablet by mouth three times daily. DULoxetine (CYMBALTA) 60 mg capsule Take 1 capsule by mouth once daily. guaiFENesin (MUCINEX) 600 mg 12 hr tablet Take 1 tablet by mouth twice daily. miconazole (CADENCE ANTIFUNGAL) 2 % cream Apply 1 application to affected area twice daily. To perirectal and buttocks area blood sugar diagnostic (BLOOD GLUCOSE TEST) test strip Test blood sugar(s) 4 times daily and as needed as directed. Dx: Type 2 DM - Uncontrolled . Insulin: Yes Lancets lancets Test blood sugar(s) 4 times daily as directed. Dx: Type 2 DM - Uncontrolled . Insulin: Yes alcohol swabs (SURE-PREP ALCHOLOL PREP PADS) padm Test blood sugars 4 x's daily. Dx: E11.65 Insulin: Yes traZODone (DESYREL) 100 mg tablet Take 3 tablets by mouth daily at bedtime. ([facility]) topiramate (TOPAMAX) 100 mg tablet Take 1 tablet by mouth once daily. Per psychiatrist BUTRANS 15 mcg/hour ptwk Apply 1 Patch as directed every Monday. Per Dr. Trevizo melatonin 3 mg Take 2 tablets by mouth daily at bedtime. thiothixene (NAVANE) 2 mg capsule Take 1 capsule by mouth daily at bedtime. Per psychiatry, Lorene Dupree, ENTERER budesonide-formoterol (SYMBICORT) 160-4.5 mcg/actuation inhaler Inhale 2 Puffs as instructed twice daily. VRAYLAR 3 mg cap Take 3 mg by mouth daily at bedtime. white petrolatum-mineral oil (EUCERIN) cream Apply 1 application to affected area as needed for Dry Skin (all dry skin areas). triamcinolone acetonide (KENALOG) 0.1 % cream Apply 1 application to affected area three times daily. Apply sparingly to area for rash/itching till rash resolves. For contact dermatitis sodium chloride (SALINE MIST) 0.65 % nasal spray Use 1 [place] in the nose as needed for Cold/Allergy Symptoms. Dispense 1 bottle (not 1 ml) Lubricants (K-Y LUBRICATING) gel Apply 1 application to affected area as needed (Use as needed for Tracheostomy changes). amantadine HCl (SYMMETREL) 100 mg capsule Take 2 capsules by mouth twice daily. (Dr. Dupree) FAMILY HISTORY Problem Relation Age of Onset - other (Pneumonia) Mother - Heart Father - Thyroid Daughter - Thyroid Daughter - Asthma No Family History - Cancer No Family History No lung cancer. - COPD No Family History Social History Substance Use Topics - Smoking status: Former Smoker Packs/day: 2.00 Years: 45.00 Types: Cigarettes Start date: 1965 Quit date: 08/27/2010 - Smokeless tobacco: Never Used - Alcohol use No PHYSICAL EXAM BP 130/80 Pulse 76 Temp 36.7 ?C (98.1 ?F) (Temporal Artery) Wt 97.3 kg (214 lb 9.6 oz) SpO2 97% BMI 36.84 kg/m? General Appearance: well appearing, in no acute distress, alert Lungs: Lungs clear to auscultation. No wheezing, rhonchi, rales Heart: RRR without murmur, gallop, or rubs. No ectopy Feet:Shoes and socks removed, No deformities, ulcers, calluses, trace DP distal pulses, sensitive to 10 gm monofilament and vibratory perception normal ASSESSMENT/PLAN: 1. Diabetic peripheral neuropathy associated with type 2 diabetes mellitus (HCC) - ICD9: 250.60, 357.2, ICD10: E11.42 (primary diagnosis) Uncontrolled - Continue current medications - Check HgA1C and Urine for albumin/creatinine ratio - Blood glucose monitoring on a fasting and two hours after largest meal daily schedule - Ophthalmology referral for eval/management of diabetic eye changes - Podiatry referral for diabetic shoes per patient request - Encouraged regular aerobic exercise and weight loss - CONSULT TO PODIATRY 2. Intermittent asthma without complication, unspecified asthma severity - ICD9: 493.90, ICD10: J45.20 Mild intermittent Asthma stable - Continue current meds - Avoidance of triggers recommended 3. Magnesium deficiency - ICD9: 275.2, ICD10: E61.2 - MAGNESIUM 71.5 MG (MAGNESIUM CHLORIDE) TABLET,DELAYED RELEASE Prescription instructions reviewed with patient as applicable. Potential red flag symptoms discussed with the patient. Reviewed appropriate action plan to take if red flag symptoms occur. Patient agreeable to treatment plan. Sheila Matthew APRN.CNP CNOV Observed: 11/13/2017 Status: COMPLETED Source: [place] 11:00 AM [facility] REPOSITORY Office Visit (INTMWS) CHRISTOPHER HOBSON ([id number]) 1960 F T Date Time Provider Department 11/13/17 11:00 AM SHEILA MATTHEW (DORY) INTMWS During your visit today, we recorded the following information about you: Temperature Pulse Blood pressure Weight 98.1 degrees 76/minute 130/80 97.3 kg Sheila Matthew APRN.CNP 11/13/2017 3:18 PM Signed CC: follow-up HPI Christopher Hobson is a 57 year old female who presents today for routine follow-up. Denies any concerns or issues today. Diabetes: She reports checking her glucose on a once a day schedule at night with sugars in the < 250 range. Hypoglycemia: No She is compliant with medication(s) and is tolerating med(s) without any side effects. Excessive thirst, urinary frequency, numbness, tingling or pain in extremities, new or unusual visual symptoms, weight loss/gain or fatigue: Yes burning pain bottom of both feet Last Ophthalmology exam was over 3 years ago Patient's last HgA1C was Hemoglobin A1C (%) Date Value 07/24/2017 9.0 08/26/2016 8.5 ) REVIEW OF SYSTEMS General: no fevers, no chills, no night sweats, no recurrent infections, no change in appetite, no change in energy and no significant changes in weight Respiratory: no hemoptysis. History of asthma and trach. Reports occasional cough with clear sputum and wheezing. Denies SOB. Using Duoneb aerosol 4 times daily. Needs refill on Symbicort, has not used in months Cardiovascular: no chest pain, no chest pressure, no palpitations and no swelling PAST MEDICAL HISTORY Diagnosis Date - Acute peptic ulcer, unspecified site, without mention of hemorrhage, perforation, or obstruction 1999 - Asthma - Bowel disease Colon polyps - Chronic obstructive pulmonary disease (COPD) ([facility]) - Diabetes ([facility]) 1999 On insulin 2015 - Dyslipidemia - Lunate fracture, closed 11/22/2012 - Other specified disorders of pancreatic internal secretion 04/1999 Diabetes on metformin - Paranoid schizophrenia, chronic condition ([facility]) 1985 - Personal history of colonic polyps 2000 - S/P colostomy ([facility]) - Tracheostomy in place ([facility]) Placed 2015 after prolonged respiratory failure, unable to liberate from vent. 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 SB resection. - REMOVAL OF TONSILS,10+ Y/O - REVISE MEDIAN N/CARPAL TUNNEL SURG 2005 Carpal tunnel decomp right - REVISE MEDIAN N/CARPAL TUNNEL SURG Carpal tunnel decomp left - REVISION OF COLOSTOMY,COMPLICATED 2000 3-4 surgeries - TRACHEOSTOMY HX 03/12/2015 protracted critical stay, failure to wean after bowel obtruction ALLERGIES Cephalosporins; Cherries [Other]; Ciprofloxacin; Codeine; Diclofenac; Dilaudid [Hydromorphone (Bulk)]; Flagyl [Metronidazole Hcl]; Philomena [Other]; Lyrica [Pregabalin]; Opioids - Morphine Analogues; Pears [Other]; Penicillins; Percocet [Oxycodone-Acetaminophen]; Soap; Vicodin [Hydrocodone-Acetaminophen]; Zithromax [Azithromycin] MEDICATIONS Magnesium Chloride (SLOW-MAG) 71.5 mg TbEC Take 1 tablet by mouth twice daily. COMPOUNDED PRESCRIPTION Nocturnal oximetry on 2 L. DME: [facility] ([place]) dextromethorphan-guaiFENesin (MUCINEX DM) 30-600 mg per tablet Take 1 tablet by mouth twice daily. glimepiride (AMARYL) 2 mg tablet Take 2 tablets by mouth daily with breakfast. ipratropium-albuterol (DUONEB) 0.5 mg-3 mg(2.5 mg base)/3 mL nebu Inhale 3 mL as instructed four times daily as needed (wheezing). Use over 5-15minutes per nebulizer. insulin glargine (BASAGLAR KWIKPEN U-100 INSULIN) 100 unit/mL (3 mL) inpn Inject 17 Units subcutaneously daily at bedtime. hydrocortisone 2.5 % cream Apply 1 application to affected area twice daily as needed. Location: neck (reaction to tape adhesive) May also use for poison tania. triamcinolone acetonide (KENALOG) 0.1 % cream Apply 1 application to affected area twice daily. Apply to affected area. Location: arms atorvastatin (LIPITOR) 40 mg tablet Take 1 tablet by mouth once daily. blood sugar diagnostic (FREESTYLE INSULINX) test strip Test blood sugar(s) 4 times daily and as needed. Dx: Type 2 DM - Uncontrolled E11.65 Insulin: Yes insulin needles, DISPOSABLE, (PEN NEEDLE) 31 gauge x 5/16 ndle Use one needle per dose (Lantus and Humalog). 5 per day. omeprazole (PRILOSEC) 20 mg capsule Take 1 capsule by mouth daily before breakfast. 1/2 hr before meal. Adhesive Tape (DURAPORE SURGICAL) 2 X 10 -yard tape Use for dressings for healing tracheostomy site. metroNIDAZOLE (FLAGYL) 500 mg tablet Take 1 tablet by mouth three times daily. DULoxetine (CYMBALTA) 60 mg capsule Take 1 capsule by mouth once daily. guaiFENesin (MUCINEX) 600 mg 12 hr tablet Take 1 tablet by mouth twice daily. miconazole (CADENCE ANTIFUNGAL) 2 % cream Apply 1 application to affected area twice daily. To perirectal and buttocks area blood sugar diagnostic (BLOOD GLUCOSE TEST) test strip Test blood sugar(s) 4 times daily and as needed as directed. Dx: Type 2 DM - Uncontrolled E11.65 Insulin: Yes Lancets lancets Test blood sugar(s) 4 times daily as directed. Dx: Type 2 DM - Uncontrolled E11.65 Insulin: Yes alcohol swabs (SURE-PREP ALCHOLOL PREP PADS) padm Test blood sugars 4 x's daily. Dx: E11.65 Insulin: Yes traZODone (DESYREL) 100 mg tablet Take 3 tablets by mouth daily at bedtime. ([facility]) topiramate (TOPAMAX) 100 mg tablet Take 1 tablet by mouth once daily. Per psychiatrist MONIQUE 15 mcg/hour ptwk Apply 1 Patch as directed every Monday. Per Dr. Trevizo melatonin 3 mg Take 2 tablets by mouth daily at bedtime. thiothixene (NAVANE) 2 mg capsule Take 1 capsule by mouth daily at bedtime. Per psychiatryLorene NP budesonide-formoterol (SYMBICORT) 160-4.5 mcg/actuation inhaler Inhale 2 Puffs as instructed twice daily. VRAYLAR 3 mg cap Take 3 mg by mouth daily at bedtime. white petrolatum-mineral oil (EUCERIN) cream Apply 1 application to affected area as needed for Dry Skin (all dry skin areas). triamcinolone acetonide (KENALOG) 0.1 % cream Apply 1 application to affected area three times daily. Apply sparingly to area for rash/itching till rash resolves. For contact dermatitis sodium chloride (SALINE MIST) 0.65 % nasal spray Use 1 [place] in the nose as needed for Cold/Allergy Symptoms. Dispense 1 bottle (not 1 ml) Lubricants (K-Y LUBRICATING) gel Apply 1 application to affected area as needed (Use as needed for Tracheostomy changes). amantadine HCl (SYMMETREL) 100 mg capsule Take 2 capsules by mouth twice daily. (Dr. Dupree) FAMILY HISTORY Problem Relation Age of Onset - other (Pneumonia) Mother - Heart Father - Thyroid Daughter - Thyroid Daughter - Asthma No Family History - Cancer No Family History No lung cancer. - COPD No Family History Social History Substance Use Topics - Smoking status: Former Smoker Packs/day: 2.00 Years: 45.00 Types: Cigarettes Start date: 1965 Quit date: 08/27/2010 - Smokeless tobacco: Never Used - Alcohol use No PHYSICAL EXAM BP 130/80 Pulse 76 Temp 36.7 ?C (98.1 ?F) (Temporal Artery) Wt 97.3 kg (214 lb 9.6 oz) SpO2 97% BMI 36.84 kg/m? General Appearance: well appearing, in no acute distress, alert Lungs: Lungs clear to auscultation. No wheezing, rhonchi, rales Heart: RRR without murmur, gallop, or rubs. No ectopy Feet:Shoes and socks removed, No deformities, ulcers, calluses, trace DP distal pulses, sensitive to 10 gm monofilament and vibratory perception normal ASSESSMENT/PLAN: 1. Diabetic peripheral neuropathy associated with type 2 diabetes mellitus (HCC) - ICD9: 250.60, 357.2, ICD10: E11.42 (primary diagnosis) Uncontrolled - Continue current medications - Check HgA1C and Urine for albumin/creatinine ratio - Blood glucose monitoring on a fasting and two hours after largest meal daily schedule - Ophthalmology referral for eval/management of diabetic eye changes - Podiatry referral for diabetic shoes per patient request - Encouraged regular aerobic exercise and weight loss - CONSULT TO PODIATRY 2. Intermittent asthma without complication, unspecified asthma severity - ICD9: 493.90, ICD10: J45.20 Mild intermittent Asthma stable - Continue current meds - Avoidance of triggers recommended 3. Magnesium deficiency - ICD9: 275.2, ICD10: E61.2 - MAGNESIUM 71.5 MG (MAGNESIUM CHLORIDE) TABLET,DELAYED RELEASE Prescription instructions reviewed with patient as applicable. Potential red flag symptoms discussed with the patient. Reviewed appropriate action plan to take if red flag symptoms occur. Patient agreeable to treatment plan. ALICIA Shah APRN.CNP 11/13/2017 11:17 AM Signed Have labs done today Call [facility] to schedule for diabetic eye exam Referring Provider: TIFF PEARSON [[id number]] Allergies As of Date: 11/13/2017 Noted Allergy Reaction CEPHALOSPORINS 04/03/2003 Comments: itching Cherries [Other] 04/03/2003 Comments: angioedema and tongue blisters CIPROFLOXACIN 09/11/2016 10 - Anaphylaxis Comments: It was used with flagyl at the same time so uknown which is the cause CODEINE 04/03/2003 Comments: rash swelling DICLOFENAC 08/28/2003 Comments: rash DILAUDID (HYDROMORPHONE (BULK)) 06/10/2015 9 - Itching FLAGYL (METRONIDAZOLE HCL) 09/11/2016 10 - Anaphylaxis Comments: It was used with flagyl at the same time so uknown which is the cause Philomena [Other] 04/03/2003 Comments: angioedematous tongue and blisters LYRICA (PREGABALIN) 07/04/2017 7 - Swelling OPIOIDS - MORPHINE ANALOGUES 08/28/2003 Comments: rash Pears [Other] 10/09/2003 PENICILLINS 04/03/2003 10 - Anaphylaxis Comments: ?anaphylaxis, patient tolerates zosyn PERCOCET (OXYCODONE-ACETAMINOPHEN)08/13/2004 9 - Itching SOAP 05/30/2006 VICODIN (HYDROCODONE-ACETAMINOPHE*05/21/2009 2 - Rash ZITHROMAX (AZITHROMYCIN) 03/24/2016 2 - Rash Date Reviewed: 11/13/2017 Reviewed by: Francis Taylor Pneumatic Systems Operator - Fully Assessed Primary Visit Diagnosis:Diabetic peripheral neuropathy associated with type 2 diabetes mellitus (HCC) [E11.42] Other Visit Diagnoses:Intermittent asthma without complication, unspecified asthma severity [J45.20] Magnesium deficiency [E61.2] Order(s):Magnesium Chloride (SLOW-MAG) 71.5 mg TbECTake 1 tablet by mouth twice daily.Disp: 60 tabletRfl: 11 CONSULT TO PODIATRY [0093] Order #: [id number]: 1 budesonide-formoterol (SYMBICORT) 160-4.5 mcg/actuation inhalerInhale 2 Puffs as instructed twice daily.Disp: 1 InhalerRfl: 11 Prescriptions as of 11/13/2017 Sig: BUDESONIDE-FORMOTEROL HFA 160* Inhale 2 Puffs as instructed * COMPOUNDED PRESCRIPTION Nocturnal oximetry on 2 L. DM* DEXTROMETHORPHAN-GUAIFENESIN * Take 1 tablet by mouth twice * GLIMEPIRIDE 2 MG TABLET Take 2 tablets by mouth daily* IPRATROPIUM-ALBUTEROL 0.5 MG-* Inhale 3 mL as instructed fou* INSULIN GLARGINE (U-100) 100 * Inject 17 Units subcutaneousl* HYDROCORTISONE 2.5 % TOPICAL * Apply 1 application to affect* TRIAMCINOLONE ACETONIDE 0.1 %* Apply 1 application to affect* ATORVASTATIN 40 MG TABLET Take 1 tablet by mouth once d* BLOOD SUGAR DIAGNOSTIC STRIPS Test blood sugar(s) 4 times d* PEN NEEDLE, DIABETIC 31 GAUGE* Use one needle per dose (Lant* OMEPRAZOLE 20 MG CAPSULE,DARREN* Take 1 capsule by mouth daily* ADHESIVE TAPE 2 X 10 YARD Use for dressings for healing* METRONIDAZOLE 500 MG TABLET Take 1 tablet by mouth three * DULOXETINE 60 MG CAPSULE,DARREN* Take 1 capsule by mouth once * GUAIFENESIN ER 600 MG TABLET,* Take 1 tablet by mouth twice * MICONAZOLE NITRATE 2 % TOPICA* Apply 1 application to affect* BLOOD SUGAR DIAGNOSTIC STRIPS Test blood sugar(s) 4 times d* LANCETS Test blood sugar(s) 4 times d* ALCOHOL SWABS Test blood sugars 4 x's daily* TRAZODONE 100 MG TABLET Take 3 tablets by mouth daily* TOPIRAMATE 100 MG TABLET Take 1 tablet by mouth once d* BUTRANS 15 MCG/HOUR TRANSDERM* Apply 1 Patch as directed daniela* MELATONIN 3 MG TABLET Take 2 tablets by mouth daily* THIOTHIXENE 2 MG CAPSULE Take 1 capsule by mouth daily* VRAYLAR 3 MG CAPSULE Take 3 mg by mouth daily at b* WHITE PETROLATUM-MINERAL OIL * Apply 1 application to affect* TRIAMCINOLONE ACETONIDE 0.1 %* Apply 1 application to affect* SODIUM CHLORIDE 0.65 % NASAL * Use 1 [place] in the nose as ne* LUBRICANTS TOPICAL GEL Apply 1 application to affect* MAGNESIUM 71.5 MG (MAGNESIUM * Take 1 tablet by mouth twice * Problem List As Of Date 11/13/2017 Noted Resolved SCHIZOPHRENIA NEC [295.8] INVALID FOR* More... More... More... Tobacco use disorder [F17.200] INVALID FOR*11/18/2011 More... Routine general medical examination at [facility]*INVALID FOR*02/25/2013 More... MACULAR DEGENERATION NOS [H35.30] INVALID FOR* More... Diabetes mellitus type 2, uncontrolled, without*INVALID FOR* Priority: G More... Class 2 obesity due to excess calories with bod*INVALID FOR*11/08/2016 Priority: H More... More... Hyperlipidemia [E78.5] INVALID FOR* More... Sleep Apnea [G47.30] INVALID FOR* More... Asthma [J45.909] Priority: D More... Ventral hernia [K43.9] INVALID FOR* Acute postoperative respiratory insufficiency [*INVALID FOR*07/19/2016 Priority: C More... More... Electrolyte and fluid disorder [E87.8] INVALID FOR*03/03/2015 Priority: I More... More... More... More... More... More... Septic shock due to Escherichia coli (HCC) [A41*INVALID FOR*07/19/2016 Priority: B More... Altered mental status [R41.82] INVALID FOR*12/09/2015 Priority: D More... Hyperbilirubinemia [E80.6] INVALID FOR*03/08/2015 More... Hypernatremia [E87.0] INVALID FOR*03/14/2015 Priority: K More... More... More... Electrolyte imbalance [E87.8] INVALID FOR*07/19/2016 Priority: J More... More... Metabolic acidosis [E87.2] INVALID FOR*03/19/2015 More... Acute kidney injury (HCC) [N17.9] INVALID FOR*03/19/2015 More... Small intestinal anastomotic leak [K91.89] INVALID FOR* More... Hypernatremia [E87.0] INVALID FOR*03/19/2015 More... 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 BUDESONIDE-FORMOTEROL HFA 160 MCG-4.* 1 In* 11 11/13/2017 Route: INHALATION Sig: Inhale 2 Puffs as instructed twice daily. Medications Discontinued During This Encounter amantadine HCl (SYMMETREL) 100 mg ca* 06/10/2015 11/13/2017 Class: Med Update Route: ORAL Sig: Take 2 capsules by mouth twice daily. (Dr. Dupree) Disc: Discontinued by another Health Care Provider Magnesium Chloride (SLOW-MAG) 71.5 m* 10 t* 0 11/09/2017 11/13/2017 Route: ORAL Sig: Take 1 tablet by mouth twice daily. Disc: Reason for discontinue is not on file. budesonide-formoterol (SYMBICORT) 16* 1 In* 5 07/19/2016 11/13/2017 Route: INHALATION Sig: Inhale 2 Puffs as instructed twice daily. Disc: Reason for discontinue is not on file. Encounter Status:Closed by SHEILA MATTHEW CNP on 11/13/17 ECHO, COMPLETE W/ Observed: 11/13/2017 Status: F Source: [place] 8:41 AM [facility] REPOSITORY [facility] Cardiovascular Services [address] [place] [address] Echo Complete W/ Contrast 11/08/17 1441 MR#: [id number] Acct: [id number] Name: CHRISTOPHER HOBSNO Rep #: [id number] : 1960 57 From: Braden Londono MD Attending Dr: Braden Londono MD Status: REG CLI Ordering Dr: Barden Londono MD Date: 11/08/17 Location: [facility] Sex: F C Admitted: Reason For Study: Arrhythmia Procedure This was a 2D Doppler, Color Flow transthoracic echocardiogram. The study was technically difficult. Contrast injection was performed. Exam performed in department. Left Ventricle Normal LV size. Left ventricular systolic function is normal. The estimated ejection fraction is 65 %. Transmitral and pulmonary venous doppler flow suggestive of impaired relaxation of left ventricle. Stage 1 diastolic dysfunction. No regional wall motion abnormalities noted. Right Ventricle Normal RV size. Normal systolic function. Atria Normal left atrium. Normal right atrium. Mitral Valve Normal mitral valve. Tricuspid Valve The tricuspid valve is not well visualized. Mild to moderate (1-2+) tricuspid valve insufficiency. Pulmonary artery systolic pressure is 40 mmHg. Mild pulmonary hypertension. Aortic Valve The aortic valve is not well visualized. Pulmonic Valve The pulmonic valve is not well visualized. Great Vessels Normal aortic root. The pulmonary artery is normal size. Normal inferior vena cava. Pericardium/Pleural No pericardial effusion. Medication 22 gauge I.V. with prn adaptor inserted into right arm. Diluted definity 2ml given slow IV push to enhance endocardial definition. MMode/2D Measurements AND Calculations LVIDd: 4.2 cm IVSd: 1.8 cm Ao root diam: 3.5 cm LVIDs: 2.9 cm LVPWd: 1.2 cm LA dimension: 4.4 cm FS: 32.6 % LVAd ap4: 24.9 cm2 SV(MOD-sp4): 46.2 ml SV(sp4-el): 48.4 ml EDV(MOD-sp4): 73.0 ml EDV(sp4-el): 75.3 ml LVAs ap4: 13.3 cm2 ESV(MOD-sp4): 26.8 ml ESV(sp4-el): 26.9 ml EF(MOD-sp4): 63.2 % EF(sp4-el): 64.3 % Time Measurements MV dec time: 0.16 sec Doppler Measurements AND Calculations MV E max tesfaye: 76.8 cm/sec Lat Peak E' Tesfaye: 11.4 cm/sec Med Peak E' Tesfaye: 7.7 cm/sec MV A max tesfaye: 116.2 cm/sec E/E' lat: 6.7 E/E' med: 10.0 MV E/A: 0.66 MV V2 max: 123.3 cm/sec MV P1/2t max tesfaye: 80.9 cm/sec Ao V2 max: 167.6 cm/sec MV max P.1 mmHg MV P1/2t: 54.2 msec Ao max P.2 mmHg MV V2 mean: 66.6 cm/sec MV dec slope: 437.4 cm/sec2 Ao V2 mean: 108.9 cm/sec MV mean P.0 mmHg MVA(P1/2t): 4.1 cm2 Ao mean P.5 mmHg MV V2 VTI: 27.5 cm Ao V2 VTI: 31.4 cm LV V1 max: 111.8 cm/sec PA V2 max: 144.5 cm/sec TR max tesfaye: 298.1 cm/sec LV V1 max P.0 mmHg TR max P.5 mmHg LV V1 mean P.3 mmHg LV V1 mean: 68.4 cm/sec LV V1 VTI: 23.0 cm Interpretation Summary Normal LV size. Left ventricular systolic function is normal. The estimated ejection fraction is 65 %. Stage 1 diastolic dysfunction. Pulmonary artery systolic pressure is 40 mmHg. Mild pulmonary hypertension. Contrast injection was performed. Ordering Physician: Braden Londono Referring Physician: Braden Londono Performed By: Emiliano Griffin RCS 11/13/17839 Date Braden Londono MD CC: Braden Londono MD; Tiff Pearson MD Date Dictated: 11/08/17 1441 Date Transcribed: 11/13/17839 Alodize Machine Helper: Светлана FENG Observed: 11/09/2017 Status: COMPLETED Source: [place] 12:00 AM [facility] REPOSITORY Telephone (FAMPWS) CHRISTOPHER HOBSON ([id number]) 1960 F CHT Date Time Provider Department 11/09/17 TIFF PEARSON During your visit today, we recorded the following information about you: Gaye Eid LPN 11/09/2017 9:07 AM Signed Pt's calling regarding medication problem. Copied message from 11/01/17 phone encounter. Pt had appt scheduled 11/07/[address] Pearson but cancelled appt. Pt is seeing Sheila Matthew 11/13/17. Note Patient's is calling to see what dose she should be taking on her Magnesium Slow Mag. He has been giving her 1 in the am and 1 in the pm for for a while. Prescription reads 1 per day. Please review and advise the patient on what dose she should be taking and a new prescription to the pharmacy if 2 per day is correct. PH: [phone] Susan Freitas LPN states rx was originally prescribed as two times daily by Dr Pearson. States pt had labs done last time se saw Sheila (09/05/17) but they never heard the results. questioning if magnesium level is better and this is why rx now says only one tablet daily? Pt will need refills either way only has 4 tablets. Please advise and return call to . Sheila Matthew APRN.CNP 11/09/2017 9:36 AM Signed The only lab that was done at 09/05 visit was wound culture. They were not called with the results because the bacteria was sensitive to the antibiotic she was prescribed. No other labs were done. I don't have any recent magnesium levels, she has labs that need drawn and we can check then. Continue with once daily. Sheila Matthew APRN.CNP I am not sure why patient is scheduled with me, she is a [facility] patient and should be seeing Rupal Gabriel. She has plenty of openings on the . Francis Taylor Cma 11/09/2017 10:36 AM Signed Patient refuses to see Rupal Matthew CNP is aware. Left message for patient's to call office back and speak with a nurse. Nay Strange LPN 11/09/2017 12:45 PM Signed Pt.s calls back. reports pt needs her medication and it's the drWaynes fault that pt wasn't told earlier that pt needed a lab to check level. reports that no one told them the dose was changed from twice daily to once a day either. reports pt cannot go without medication. Pt has an appt 11/13 with Sheila Matthew cnp because pt cancelled 11/07 appt with pcp because of the heat. Nay Matthew PLANNER.DORY 11/09/2017 2:16 PM Signed I am not sure why they are almost out, this was refilled on 09/05/17 and prescription says once daily because this was how they reported she was taking. I will give them enough for her to take twice a day until her appointment 11/13 if that is what they would like to do. Sheila Matthew APRN.DORY Taylor Cma 11/09/2017 2:21 PM Signed Patient is notified of all information and verbalizes understanding. Francis Taylor Cma Allergies As of Date: 11/09/2017 Noted Allergy Reaction CEPHALOSPORINS 04/03/2003 Comments: itching Cherries [Other] 04/03/2003 Comments: angioedema and tongue blisters CIPROFLOXACIN 09/11/2016 10 - Anaphylaxis Comments: It was used with flagyl at the same time so uknown which is the cause CODEINE 04/03/2003 Comments: rash swelling DICLOFENAC 08/28/2003 Comments: rash DILAUDID (HYDROMORPHONE (BULK)) 06/10/2015 9 - Itching FLAGYL (METRONIDAZOLE HCL) 09/11/2016 10 - Anaphylaxis Comments: It was used with flagyl at the same time so uknown which is the cause Philomena [Other] 04/03/2003 Comments: angioedematous tongue and blisters LYRICA (PREGABALIN) 07/04/2017 7 - Swelling OPIOIDS - MORPHINE ANALOGUES 08/28/2003 Comments: rash Pears [Other] 10/09/2003 PENICILLINS 04/03/2003 10 - Anaphylaxis Comments: ?anaphylaxis, patient tolerates zosyn PERCOCET (OXYCODONE-ACETAMINOPHEN)08/13/2004 9 - Itching SOAP 05/30/2006 VICODIN (HYDROCODONE-ACETAMINOPHE*05/21/2009 2 - Rash ZITHROMAX (AZITHROMYCIN) 03/24/2016 2 - Rash Date Reviewed: 11/01/2017 Reviewed by: Kg Smalls - Fully Assessed Reason for Visit: Medication Problem [65] Primary Visit Diagnosis:Low magnesium level [R79.0] Other Visit Diagnosis:Magnesium deficiency [E61.2] Order(s):MAGNESIUM BLD [SQMG1] Order #: [id number] FUTURE Magnesium Chloride (SLOW-MAG) 71.5 mg TbECTake 1 tablet by mouth once daily.Disp: 10 tabletRfl: 0 Prescriptions as of 11/09/2017 Sig: MAGNESIUM 71.5 MG (MAGNESIUM * Take 1 tablet by mouth once d* COMPOUNDED PRESCRIPTION Nocturnal oximetry on 2 L. DM* DEXTROMETHORPHAN-GUAIFENESIN * Take 1 tablet by mouth twice * GLIMEPIRIDE 2 MG TABLET Take 2 tablets by mouth daily* IPRATROPIUM-ALBUTEROL 0.5 MG-* Inhale 3 mL as instructed fou* INSULIN GLARGINE (U-100) 100 * Inject 17 Units subcutaneousl* HYDROCORTISONE 2.5 % TOPICAL * Apply 1 application to affect* TRIAMCINOLONE ACETONIDE 0.1 %* Apply 1 application to affect* ATORVASTATIN 40 MG TABLET Take 1 tablet by mouth once d* BLOOD SUGAR DIAGNOSTIC STRIPS Test blood sugar(s) 4 times d* PEN NEEDLE, DIABETIC 31 GAUGE* Use one needle per dose (Lant* OMEPRAZOLE 20 MG CAPSULE,DARREN* Take 1 capsule by mouth daily* ADHESIVE TAPE 2 X 10 YARD Use for dressings for healing* METRONIDAZOLE 500 MG TABLET Take 1 tablet by mouth three * DULOXETINE 60 MG CAPSULE,DARREN* Take 1 capsule by mouth once * GUAIFENESIN ER 600 MG TABLET,* Take 1 tablet by mouth twice * MICONAZOLE NITRATE 2 % TOPICA* Apply 1 application to affect* BLOOD SUGAR DIAGNOSTIC STRIPS Test blood sugar(s) 4 times d* LANCETS Test blood sugar(s) 4 times d* ALCOHOL SWABS Test blood sugars 4 x's daily* TRAZODONE 100 MG TABLET Take 3 tablets by mouth daily* TOPIRAMATE 100 MG TABLET Take 1 tablet by mouth once d* BUTRANS 15 MCG/HOUR TRANSDERM* Apply 1 Patch as directed daniela* MELATONIN 3 MG TABLET Take 2 tablets by mouth daily* THIOTHIXENE 2 MG CAPSULE Take 1 capsule by mouth daily* BUDESONIDE-FORMOTEROL HFA 160* Inhale 2 Puffs as instructed * VRAYLAR 3 MG CAPSULE Take 3 mg by mouth daily at b* WHITE PETROLATUM-MINERAL OIL * Apply 1 application to affect* TRIAMCINOLONE ACETONIDE 0.1 %* Apply 1 application to affect* SODIUM CHLORIDE 0.65 % NASAL * Use 1 [place] in the nose as ne* LUBRICANTS TOPICAL GEL Apply 1 application to affect* AMANTADINE HCL 100 MG CAPSULE Take 2 capsules by mouth twic* Problem List As Of Date 11/09/2017 Noted Resolved DEPRESSIVE DISORDER NEC(aka DEPRESSION) [F32.9] INVALID FOR* SCHIZOPHRENIA NEC [295.8] INVALID FOR* More... MALIGNANT NEOPLASM COLON NOS(aka COLON) [C18.9] INVALID FOR* More... More... PEPTIC ULCER NOS [K27.9] INVALID FOR* Tobacco use disorder [F17.200] INVALID FOR*11/18/2011 More... Routine general medical examination at a health*INVALID FOR*02/25/2013 More... MACULAR DEGENERATION NOS [H35.30] INVALID FOR* More... Diabetes mellitus type 2, uncontrolled, without*INVALID FOR* Priority: G More... Class 2 obesity due to excess calories with bod*INVALID FOR*11/08/2016 Priority: H More... HEMATURIA NOS [R31.9] INVALID FOR* More... Hyperlipidemia [E78.5] INVALID FOR* More... HEADACHE [R51] INVALID FOR* Sleep Apnea [G47.30] INVALID FOR* More... Asthma [J45.909] Priority: D More... DM w/o complication type II [E11.9] INVALID FOR* Pain in soft tissues of limb [M79.609] INVALID FOR* Dermatophytosis of nail [B35.1] INVALID FOR* Ventral hernia [K43.9] INVALID FOR* Lunate fracture, closed [S62.123A] INVALID FOR* Acute postoperative respiratory insufficiency [*INVALID FOR*07/19/2016 Priority: C More... Bowel obstruction (HCC) [K56.609] INVALID FOR* Priority: A More... Electrolyte and fluid disorder [E87.8] INVALID FOR*03/03/2015 Priority: I More... Post-op pain [G89.18] INVALID FOR* Priority: G More... Postoperative anemia due to acute blood loss [D*INVALID FOR* Priority: F More... H/O schizophrenia [Z86.59] INVALID FOR* Priority: E More... Hypotension [I95.9] INVALID FOR* Priority: E More... Fever [R50.9] INVALID FOR* Priority: F More... Septic shock due to Escherichia coli (HCC) [A41*INVALID FOR*07/19/2016 Priority: B More... Altered mental status [R41.82] INVALID FOR*12/09/2015 Priority: D More... Hyperbilirubinemia [E80.6] INVALID FOR*03/08/2015 More... Hypernatremia [E87.0] INVALID FOR*03/14/2015 Priority: K More... Skin lesion [L98.9] INVALID FOR* Priority: I More... Mild protein-calorie malnutrition (HCC) [E44.1] INVALID FOR* Priority: K More... Electrolyte imbalance [E87.8] INVALID FOR*07/19/2016 Priority: J More... Physical deconditioning [R53.81] INVALID FOR* Priority: L More... Metabolic acidosis [E87.2] INVALID FOR*03/19/2015 Encephalopathy in sepsis [G93.41] INVALID FOR* More... Acute kidney injury (HCC) [N17.9] INVALID FOR*03/19/2015 More... Small intestinal anastomotic leak [K91.89] INVALID FOR* More... Hypernatremia [E87.0] INVALID FOR*03/19/2015 More... Fistula [L98.8] INVALID FOR* On total parenteral nutrition (TPN) [Z78.9] INVALID FOR* Scruggs catheter dysfunction (HCC) [T82.514A] INVALID FOR* Tracheostomy care (HCC) [Z43.0] INVALID FOR* Magnesium deficiency [E61.2] INVALID FOR* Tracheostomy present (HCC) [Z93.0] INVALID FOR*07/24/2017 Hypomagnesemia [E83.42] INVALID FOR* Hematoma [T14.8XXA] INVALID FOR* SBO (small bowel obstruction) (HCC) [K56.609] INVALID FOR* Ventral hernia with bowel obstruction [K43.6] INVALID FOR* More... 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 Medications Discontinued During This Encounter Magnesium Chloride (SLOW-MAG) 71.5 m* 30 t* 5 09/05/2017 11/09/2017 Route: ORAL Sig: Take 1 tablet by mouth once daily. Disc: Reason for discontinue is not on file. Encounter Status:Closed by FRANCIS TAYLOR CMA on 11/09/17 CARDIOLOGY VISIT Observed: 11/01/2017 Status: F Source: [place] RE[place] 11:41 AM [facility] REPOSITORY [facility] [address] [place] [address] OFFICE VISIT Date of Service: 11/01/17 MR#: [id number] Acct: [id number] Name: CHRISTOPHER HOBSON Rep #: [id number] : 1960 Provider: Braden Londono MD Age/Sex: 56/F [place] [facility] [place] Signed HPI HPI Chief Complaint: Initial evaluation Details: CHRISTOPHER HOBSON, is a 56 F who presents to the office today for an initial visit. 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 She tells me that she is here for preoperative evaluation to have her tracheostomy site closed. She has been using oxygen 2 L mostly at night as needed. She has not had any neck arm or jaw discomfort suggest angina no dizziness or diaphoresis no near syncope or syncope. She did have a permanent ventricular pacemaker placed in 2016 for reasons that are not entirely clear to me likely secondary to bradycardia arrhythmia. She does not appear to have had any further cardiac issues. Her physical exam demonstrates clear lung brown regular rate and rhythm and no pedal edema. Electrocardiogram from November 2016 demonstrated sinus rhythm with a rate of 71 bpm and no acute changes. Intake Vital Signs11/01/17 Height 5 ft 6 in 11/01/17 Weight: 218 lb 11/01/17 Body Mass Index (BMI) 35.2 11/01/17 Blood Pressure 140/80 11/01/17 Respiratory Rate 18 11/01/17 Pulse Rate 72 Intake Visit Reasons: ENT ref'd for surgery clearance, has pacemaker Allergies azithromycin Allergy (Verified 11/01/17 10:40) Rash Cephalosporins Allergy (Verified 11/01/17 10:40) Rash codeine Allergy (Verified 11/01/17 10:40) Rash diclofenac [Diclofenac] Allergy (Verified 11/01/17 10:40) Rash hydrocodone bitartrate [From Vicodin] Allergy (Verified 11/01/17 10:40) Rash hydromorphone HCl [From Dilaudid] Allergy (Verified 11/01/17 10:40) Rash Opioids - Morphine Analogues Allergy (Verified 11/01/17 10:40) Rash Penicillins Allergy (Verified 11/01/17 10:40) Anaphylaxis Sulfa (Sulfonamide Antibiotics) Allergy (Verified 11/01/17 10:40) Rash cherries Allergy (Uncoded 11/01/17 10:40) Angioedema philomena Allergy (Uncoded 11/01/17 10:40) Angioedema pears Adverse Reaction (Uncoded 11/01/17 10:40) Unknown soap Adverse Reaction (Uncoded 11/01/17 10:40) Unknown Medications Topiramate [Topamax] 100 mg PO DAILY 03/01/17 [History Confirmed 11/01/17] Guaifenesin [Mucinex] 600 mg PO BID #10 tab.er.12h 08/28/17 [Rx Confirmed 11/01/17] atorvastatin 40 mg tablet 40 mg PO QHS 30 Days #30 tab 10/31/17 [History Confirmed 11/01/17] budesonide-formoterol HFA 160 mcg-4.5 mcg/actuation aerosol inhaler 2 puff INHALATION BID 10/31/17 [History Confirmed 10/31/17] duloxetine 60 mg capsule,delayed release PO 30 Days #30 10/31/17 [History Confirmed 11/01/17] fluticasone 50 mcg/actuation nasal spray,suspension 2 spray INTRANASAL DAILY 10/31/17 [History Confirmed 10/31/17] hydrocortisone 2.5 % topical cream TOPICAL 30 Days #30 10/31/17 [History Confirmed 11/01/17] insulin glargine (U-100) 100 unit/mL (3 mL) subcutaneous pen 15 unit SC DAILY 10/31/17 [History Confirmed 11/01/17] ipratropium-albuterol 0.5 mg-3 mg(2.5 mg base)/3 mL nebulization soln 3 ml INHALATION Q8H 10/31/17 [History Confirmed 11/01/17] magnesium 64 mg (magnesium chloride) tablet,delayed release PO 30 Days #60 10/31/17 [History Confirmed 11/01/17] thiothixene 2 mg capsule PO 30 Days #30 10/31/17 [History Confirmed 11/01/17] trazodone 100 mg tablet PO 30 Days #90 10/31/17 [History Confirmed 11/01/17] triamcinolone acetonide 0.1 % topical cream TOPICAL 10 Days #15 10/31/17 [History Confirmed 10/31/17] cariprazine 3 mg capsule 3 mg PO DAILY 11/01/17 [History Confirmed 11/01/17] glimepiride 4 mg tablet PO 30 Days #30 11/01/17 [History Confirmed 11/01/17] omeprazole 20 mg capsule,delayed release 20 mg PO TID 30 Days #90 cap 11/01/17 [History Confirmed 11/01/17] [facility] Medical History Bradycardia (Chronic) Obesity (BMI 30.0-34.9) (Chronic) Type I diabetes mellitus (Chronic) Hyperlipidemia (Chronic) Hypertension (Chronic) Anemia (Chronic) Anxiety and depression (Chronic) Asthma (Chronic) COPD (chronic obstructive pulmonary disease) (Chronic) Colon cancer (Chronic) GERD (gastroesophageal reflux disease) (Chronic) Paranoid schizophrenia (Chronic) Tracheitis (Chronic) Surgical History Presence of cardiac pacemaker (Chronic 09/28/16) Colostomy in place (Chronic) History of colectomy (Resolved) Tracheostomy in place (Resolved) Family History Father Heart disease Other Thyroid disorder Social History Smoking Status: Former smoker quit date: 08/27/10 pack-years: 45 ROS Const Const: Negative for fatigue, weakness, difficulty sleeping, frequent falls, excessive sweating or headache(s) Eyes Eyes: Negative for loss of peripheral vision, transient loss of vision, blurry vision, tunnel vision or double vision ENT ENT: Negative for headache(s), dizziness, Nosebleed/epistaxis or balance problems Cardio Chest Pain: No Palpitations: No Edema: None Muscle aches with walking: None Resp Respiratory: Negative for SOB with activity, SOB at rest, SOB orthopnea\SOB lying down, paroxysmal nocturnal dyspnea or Cough GI GI: Negative nausea, heartburn, black,tarry stools or vomiting : Negative for hematuria Musc Musc: Negative for balance problems, muscle aches/ myalgia, muscle weakness or joint pain Skin Skin: Negative non-healing lesions, unusual bruising or rash Neuro Neuro: Negative for weakness, frequent falls, headache(s), blurry vision, double vision, dizziness, lightheadedness, orthostatic symptoms, near syncope, syncope or lack of coordination Andrew Hematologic/Lymphatic: Negative for easy bruising or easy bleeding Endo Endo: Negative for fatigue, excessive sweating or increased thirst/drinking Psych Psych: Negative for anxiety or depression Allergy Allergy/Immunology: Negative for hives, Negative for rash Cardiology Exam Const Appearance: cooperative, healthy appearing, well developed, well groomed and no acute distress Nutritional Appearance: well nourished and average body habitus Orientation: alert, awake and oriented x3 Head Head: normal to inspection, normocephalic and atraumatic Ears: hearing grossly normal bilaterally and external ears normal Nose: external nose normal, nasal mucous membranes and turbinates normal, nares normal, septum normal, no nasal discharge Face and Sinus: face symmetric Mouth: oral mucosae normal, tongue normal, oropharynx normal and moist mucous membranes Teeth and gingiva: dentition normal Throat: posterior oropharynx normal, tonsils normal and uvula midline Eyes General: appearance normal, both eyes and all related structures Eyelids: eyelids normal Conjunctivae: conjunctivae normal Pupils: PERRL, normal by confrontation and accommodation normal EOM: EOM intact bilaterally Neck Neck: normal visual inspection, trachea midline and no JVD JVD: +5 Carotids: normal carotid upstroke and bounding pulses tracheostomy site patent Chest Chest inspection: normal inspection of the chest, symmetric chest movement and normal respiratory effort Auscultation: Bilateral: Clear to Auscultation Cardio Palpation: normal PMI Rate: regular rate Rhythm: regular rhythm Heart sounds: S1 normal, S2 normal and normal, physiologic split S2; negative rub, gallop or murmur GI GI: normal to inspection, soft, no hepatosplenomegaly and bowel sounds present Neuro General: alert, awake, oriented x3, no focal sensory deficit, gait normal and moves all extremities Skin Skin: no rashes or lesions noted Extremities Pulses: Normal: Right Femoral Pulse, Left Femoral Pulse, Right Dorsalis Pedis Pulse, Left Dorsalis Pedis Pulse, Right Posterior Tibial Pulse, Left Posterior Tibial Pulse, Right Radial Pulse, Left Radial Pulse Lower Extremity Edema: None: Bilateral Musculoskel Musculoskeletal: No joint tenderness Psych Psychological: normal affect Assessment AND Plan 1. Preop cardiovascular exam Z01.810 Plan In terms of her preoperative cardiovascular exam she appears to be stable at this particular time I would only suggest that we obtain an echocardiogram to assess her left ventricular function. I would not make any medication changes in order no other testing. From my standpoint she can proceed with this surgery with no other cardiac precautions. Orders Orders: 2. Presence of cardiac pacemaker Z95.0 Medtronic Micra [id number] Plan She does have a Medtronic micro-which appears to be functioning well currently follow-up with the above at the [facility] I have offered them that we could potentially follow it up here this will be reconsidered after her surgery. Plan Detail Other Medications Discontinued: metronidazole Discontinued Reason: Discontinued by PCP/ot500 mg PO Q8H Gemini Ramirez her physicians Follow Up prn Coding Level of Care Code Off vis,new,level 4 Diagnoses Preop cardiovascular exam Z01.810 Presence of cardiac pacemaker Z95.0 Coding Level of Care Code Off vis,new,level 4 Diagnoses Preop cardiovascular exam Z01.810 Presence of cardiac pacemaker Z95.0 11/01/17 1141 <Electronically signed by Braden Londono MD> Date Braden Londono MD Cosigner Signature: Date (if applicable) CC: Anthony Talavera MD; Tiff Pearson MD CNCO Observed: 11/01/2017 Status: COMPLETED Source: [place] 12:00 AM [facility] [place] REPOSITORY Letter Text Christopher Hobson Kg Smalls MD, [facility] October 27, 2017 [place] [address] RE: Christopher Seamanire : 1960 CC#: [id number] Dear Dr. Talavera, It was my pleasure to evaluate your patient today in the [facility]. I have enclosed a copy of the visit summary for your review and records. If you have any questions regarding this report, please feel free to contact me. Sincerely, Kg Smalls MD, [facility] [address] [id number] P: [phone] F: [phone] [email or web address] Enclosure PROGRESS Observed: 10/27/2017 Status: COMPLETED Source: [place] 3:05 PM [facility] REPOSITORY HNO ID: [id number] Author: Kg Smalls Service: (none) Author Type: Physician Type: Progress Notes Filed: 11/01/2017 6:54 PM Note Text: [facility] [place], 10/27/17: HPI: The patient is here for follow up of COPD and subglottic stenosis, 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 The last Pulmonary Clinic visit was 07/10/[address] Alvarez. Since then the patient was evaluated by PCP office on 09/05/17 for COPD exacerbation. She was treated with Zithromax and Mucinex. Stoma culture positive for pseudomonas aeruginosa. There has been no hospital admission for exacerbation. Has not been treated with prednisone. Patient has not been compliant with Symbicort. She ran out and has not been able to have it refilled. Daily nebulizer treatments at 9 am, 12 pm, 5 pm, 9 pm. Taking Mucinex twice daily. Coughs after using nebulizer. Sputum yellow. No hemoptysis. No pleuritic chest pain. Wheezing well controlled if she is consistent with nebulizer. No dyspnea at rest. Exertional dyspnea with walking long distances, climbing stairs. No issues with ADLs. Currently wearing 2 L supplemental oxygen at night. Some nights she wears it for 1 hour, occasionally for 2-3 hours. Patient checks pulse ox. DME: [facility] ([place]) Patient snores at night since having trach placed. does not appreciate apneas, however, he also snores loudly. Wakes up feeling tired. Daytime fatigue. PMH: Updated with patient today. FAMH: Updated with patient today. SOCH: Updated with patient today. Immunization History Administered Date(s) Administered Influenza Seasonal Inj Age 3+ 12/13/2013 Influenza Seasonal Inj Quadrivalent Age 3+ 12/17/2014 12/15/2015 Influenza Vaccine, Split-Non Spec 01/05/2004 11/25/2008 01/13/2012 11/26/2012 Pneumovax 09/15/2010 TD Adult 12/05/2003 Tdap (Age 7+) 08/06/2012 ROS: General: Generally feels fine. Appetite good. Feels her Oxygen needs are decreasing. Eyes, Ears, nose, throat: denies post nasal drip. denies rhinorrhea. denies purulent nasal discharge. denies epistaxis. denies hoarseness. Vision stable. Cardiac: denies angina, denies edema, denies orthopnea. Notes increased snoring at night since trach removed GI: denies heartburn. denies dysphagia. denies diarrhea. Uro/FOOD TESTER: denies dysuria. denies hesitancy. denies nocturia. Menses: post menopausal Musculoskeletal: denies pain. Neuro: denies headache, denies focal weakness. denies tremor. Skin: denies rash. Otherwise negative. Reviewed with patient, confirmed as documented by Kendra Franklin LPN. TO Allergies were reviewed and updated, and medications were reconciled with the patient. PHYSICAL EXAMINATION: BP 138/80 Pulse 83 Resp 18 Ht 5' 4 (1.63m) Wt 216 lb (98.0kg) SpO2 97% BMI 37.06 kg/(m2). Gen: No acute distress. Cooperative with examination. ENT: Oral hygeine and dentition poor. Trach- dressing clean, dry, intact, though not completely closed. No induration, purulent secretion, odor at site. Resp: No stridor, accessory respiratory muscle use, supra- sternal or intercostal retractions. No wheezes, crackles. CV: Regular rythm. Heart tones normal. Radial pulses normal. Abd: Non distended. MSK: No kyphoscoliosis. Ext: Warm and well perfused. No clubbing, cyanosis, edema. Skin: No rash, ecchymoses. Neuro: Mental status normal. Affect normal. No tremor. DATA REVIEW: CXR, 09/29/16 RESULT: Lines, tubes, and devices: ?Interval removal of left IJ temporary pacemaker lead. ?Stable tracheostomy tube. ?Right IJ CVC noted with tip in the upper right atrium. Lungs and pleura: ?Mild diffuse perihilar reticular opacities in both lungs are most suggestive of pulmonary interstitial edema. ?No consolidations. ?No evidence of pulmonary alveolar edema. ?No pleural effusion or pneumothorax. Cardiomediastinal silhouette: ?Stable cardiomediastinal silhouette. Other: ?No acute chest wall abnormality. I have personally and independently reviewed these CXR images and I concur with the findings as described. TO IMPRESSION/RECOMMEND: 1. Tracheostomy removed. - Site looks very clean. Patient and spouse complimented on their good work keeping it that way. - Patient and spouse directed that large rectangle or Band Aid bandages provided today should be sufficient to protect site. - Change these bandages daily. 2. Agree with plan voiced by Anthony Talavera MD to surgically close tracheostomy. - There is no pulmonary contraindication to the surgery planned, or the use of general anesthesia. 3. After tracheostomy is closed and healed, we will need to do testing for obstructive sleep apnea and COPD. I addressed the questions of the patient and her spouse (the latter of whom told me he cannot read, and informed me he relies on his spouse to read for him), and they expressed understanding and acceptance of my verbal and written answers. Attending Note I have personally performed a face to face assessment of the patient and have reviewed the PA/WELLNESS SPECIALIST note. My serrato findings include: History is as recorded. Exam is as recorded. Assessment/Plan are as edited Other additions or changes: As edited. Signature: Kg Smalls MD Date: 10/27/2017 Kg Smalls MD, [facility] [address] [address] P: [phone] F: [phone] [email or web address] Observed: 10/27/2017 Status: COMPLETED Source: [place] 3:00 PM [facility] REPOSITORY Office Visit (PULMWS) CHRISTOPHER HOBSON ([id number]) 1960 F T Date Time Provider Department 10/27/17 3:00 PM KG SMALLS PULMWS During your visit today, we recorded the following information about you: Pulse Respiration Blood pressure Weight 83/minute 18/minute 138/80 98 kg Height 1.626 m Kendra Franklin STACY 10/27/2017 3:03 PM Addendum ROS: General: Generally feels fine. Appetite good. Oxygen needs decreasing. Eyes, Ears, nose, throat: denies post nasal drip. denies rhinorrhea. denies purulent nasal discharge. denies epistaxis. denies hoarseness. Vision stable. Cardiac: denies angina, denies edema, denies orthopnea. Notes increased snoring at night since trach removed GI: denies heartburn. denies dysphagia. denies diarrhea. Uro/FOOD TESTER: denies dysuria. denies hesitancy. denies nocturia. Menses: post menopausal Musculoskeletal: denies pain. Neuro: denies headache, denies focal weakness. denies tremor. Skin: denies rash. Otherwise negative. Reviewed with patient, confirmed as documented by Kendra Franklin LPN. 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 The last Pulmonary Clinic visit was 07/10/[address] Alvarez. Since then the patient was evaluated by PCP office on 09/05/17 for COPD exacerbation. She was treated with Zithromax and Mucinex. Stoma culture positive for pseudomonas aeruginosa. There has been no hospital admission for exacerbation. Has not been treated with prednisone. Patient has not been compliant with Symbicort. She ran out and has not been able to have it refilled. Daily nebulizer treatments at 9 am, 12 pm, 5 pm, 9 pm. Taking Mucinex twice daily. Coughs after using nebulizer. Sputum yellow. No hemoptysis. No pleuritic chest pain. Wheezing well controlled if she is consistent with nebulizer. No dyspnea at rest. Exertional dyspnea with walking long distances, climbing stairs. No issues with ADLs. Currently wearing 2 L supplemental oxygen at night. Some nights she wears it for 1 hour, occasionally for 2-3 hours. Patient checks pulse ox. DME: [facility] ([place]) Patient snores at night since having trach placed. does not appreciate apneas, however, he also snores loudly. Wakes up feeling tired. Daytime fatigue. PMH: Updated with patient today. FAMH: Updated with patient today. SOCH: Updated with patient today. Immunization History Administered Date(s) Administered Influenza Seasonal Inj Age 3+ 12/13/2013 Influenza Seasonal Inj Quadrivalent Age 3+ 12/17/2014 12/15/2015 Influenza Vaccine, Split-Non Spec 01/05/2004 11/25/2008 01/13/2012 11/26/2012 Pneumovax 09/15/2010 TD Adult 12/05/2003 Tdap (Age 7+) 08/06/2012 ROS: General: Generally feels fine. Appetite good. Feels her Oxygen needs are decreasing. Eyes, Ears, nose, throat: denies post nasal drip. denies rhinorrhea. denies purulent nasal discharge. denies epistaxis. denies hoarseness. Vision stable. Cardiac: denies angina, denies edema, denies orthopnea. Notes increased snoring at night since trach removed GI: denies heartburn. denies dysphagia. denies diarrhea. Uro/FOOD TESTER: denies dysuria. denies hesitancy. denies nocturia. Menses: post menopausal Musculoskeletal: denies pain. Neuro: denies headache, denies focal weakness. denies tremor. Skin: denies rash. Otherwise negative. Reviewed with patient, confirmed as documented by Kendra Franklin LPN. TO Allergies were reviewed and updated, and medications were reconciled with the patient. PHYSICAL EXAMINATION: BP 138/80 Pulse 83 Resp 18 Ht 5' 4 (1.63m) Wt 216 lb (98.0kg) SpO2 97% BMI 37.06 kg/(m2). Gen: No acute distress. Cooperative with examination. ENT: Oral hygeine and dentition poor. Trach- dressing clean, dry, intact, though not completely closed. No induration, purulent secretion, odor at site. Resp: No stridor, accessory respiratory muscle use, supra- sternal or intercostal retractions. No wheezes, crackles. CV: Regular rythm. Heart tones normal. Radial pulses normal. Abd: Non distended. MSK: No kyphoscoliosis. Ext: Warm and well perfused. No clubbing, cyanosis, edema. Skin: No rash, ecchymoses. Neuro: Mental status normal. Affect normal. No tremor. DATA REVIEW: CXR, 09/29/16 RESULT: Lines, tubes, and devices: ?Interval removal of left IJ temporary pacemaker lead. ?Stable tracheostomy tube. ?Right IJ CVC noted with tip in the upper right atrium. Lungs and pleura: ?Mild diffuse perihilar reticular opacities in both lungs are most suggestive of pulmonary interstitial edema. ?No consolidations. ?No evidence of pulmonary alveolar edema. ?No pleural effusion or pneumothorax. Cardiomediastinal silhouette: ?Stable cardiomediastinal silhouette. Other: ?No acute chest wall abnormality. I have personally and independently reviewed these CXR images and I concur with the findings as described. TO IMPRESSION/RECOMMEND: 1. Tracheostomy removed. - Site looks very clean. Patient and spouse complimented on their good work keeping it that way. - Patient and spouse directed that large rectangle or Band Aid bandages provided today should be sufficient to protect site. - Change these bandages daily. 2. Agree with plan voiced by Anthony Talavera MD to surgically close tracheostomy. - There is no pulmonary contraindication to the surgery planned, or the use of general anesthesia. 3. After tracheostomy is closed and healed, we will need to do testing for obstructive sleep apnea and COPD. I addressed the questions of the patient and her spouse (the latter of whom told me he cannot read, and informed me he relies on his spouse to read for him), and they expressed understanding and acceptance of my verbal and written answers. Attending Note I have personally performed a face to face assessment of the patient and have reviewed the PA/WELLNESS SPECIALIST note. My serrato findings include: History is as recorded. Exam is as recorded. Assessment/Plan are as edited Other additions or changes: As edited. Signature: Kg Smalls MD Date: 10/27/2017 Kg Smalls MD, [facility] [address] [place] [id number] P: [phone] F: [phone] [email or web address] Kg Smalls MD 10/27/2017 3:56 PM Signed 1. Tracheostomy site looks very clean. Good work keeping it that way. 2. Band Aid bandages provided today should be sufficient to protect site. - Change daily. 3. Agree with plan to surgically close tracheostomy. - I will send report to Dr. Talavera. 4. After tracheostomy is closed and healed, we will need to do testing for obstructive sleep apnea and COPD. Kg Smalls MD, [facility] [address] [place] [address] P: [phone] F: [phone] [email or web address] Referring Provider: KG SMALLS [[id number]] Allergies As of Date: 10/27/2017 Noted Allergy Reaction CEPHALOSPORINS 04/03/2003 Comments: itching Cherries [Other] 04/03/2003 Comments: angioedema and tongue blisters CIPROFLOXACIN 09/11/2016 10 - Anaphylaxis Comments: It was used with flagyl at the same time so uknown which is the cause CODEINE 04/03/2003 Comments: rash swelling DICLOFENAC 08/28/2003 Comments: rash DILAUDID (HYDROMORPHONE (BULK)) 06/10/2015 9 - Itching FLAGYL (METRONIDAZOLE HCL) 09/11/2016 10 - Anaphylaxis Comments: It was used with flagyl at the same time so uknown which is the cause Philomena [Other] 04/03/2003 Comments: angioedematous tongue and blisters LYRICA (PREGABALIN) 07/04/2017 7 - Swelling OPIOIDS - MORPHINE ANALOGUES 08/28/2003 Comments: rash Pears [Other] 10/09/2003 PENICILLINS 04/03/2003 10 - Anaphylaxis Comments: ?anaphylaxis, patient tolerates zosyn PERCOCET (OXYCODONE-ACETAMINOPHEN)08/13/2004 9 - Itching SOAP 05/30/2006 VICODIN (HYDROCODONE-ACETAMINOPHE*05/21/2009 2 - Rash ZITHROMAX (AZITHROMYCIN) 03/24/2016 2 - Rash Date Reviewed: 10/27/2017 Reviewed by: Kg Smalls - Fully Assessed Reason for Visit: Established Patient [175] Cmt: 3 month follow up- Dr. Alvarez Reason For Visit History Recorded Primary Visit Diagnosis:Mechanical complication of tracheostomy (HCC) [J95.03] Other Visit Diagnoses:Morbid obesity (HCC) [E66.01] YENY (obstructive sleep apnea) [G47.33] Chronic obstructive pulmonary disease, unspecified COPD type (HCC) [J44.9] Order(s):OXIMETRY WITH AMBULATION [[id number]] Order #: [id number] FUTURE COMPOUNDED PRESCRIPTIONNocturnal oximetry on 2 L. DME: [facility] ([place])Disp: 1 EachRfl: 0 Prescriptions as of 10/27/2017 Sig: DEXTROMETHORPHAN-GUAIFENESIN * Take 1 tablet by mouth twice * GLIMEPIRIDE 2 MG TABLET Take 2 tablets by mouth daily* IPRATROPIUM-ALBUTEROL 0.5 MG-* Inhale 3 mL as instructed fou* MAGNESIUM 71.5 MG (MAGNESIUM * Take 1 tablet by mouth once d* INSULIN GLARGINE (U-100) 100 * Inject 17 Units subcutaneousl* HYDROCORTISONE 2.5 % TOPICAL * Apply 1 application to affect* TRIAMCINOLONE ACETONIDE 0.1 %* Apply 1 application to affect* ATORVASTATIN 40 MG TABLET Take 1 tablet by mouth once d* OMEPRAZOLE 20 MG CAPSULE,DARREN* Take 1 capsule by mouth daily* METRONIDAZOLE 500 MG TABLET Take 1 tablet by mouth three * DULOXETINE 60 MG CAPSULE,DARREN* Take 1 capsule by mouth once * GUAIFENESIN ER 600 MG TABLET,* Take 1 tablet by mouth twice * TRAZODONE 100 MG TABLET Take 3 tablets by mouth daily* TOPIRAMATE 100 MG TABLET Take 1 tablet by mouth once d* MELATONIN 3 MG TABLET Take 2 tablets by mouth daily* THIOTHIXENE 2 MG CAPSULE Take 1 capsule by mouth daily* BUDESONIDE-FORMOTEROL HFA 160* Inhale 2 Puffs as instructed * VRAYLAR 3 MG CAPSULE Take 3 mg by mouth daily at b* WHITE PETROLATUM-MINERAL OIL * Apply 1 application to affect* TRIAMCINOLONE ACETONIDE 0.1 %* Apply 1 application to affect* COMPOUNDED PRESCRIPTION Nocturnal oximetry on 2 L. DM* BLOOD SUGAR DIAGNOSTIC STRIPS Test blood sugar(s) 4 times d* PEN NEEDLE, DIABETIC 31 GAUGE* Use one needle per dose (Lant* ADHESIVE TAPE 2 X 10 YARD Use for dressings for healing* MICONAZOLE NITRATE 2 % TOPICA* Apply 1 application to affect* BLOOD SUGAR DIAGNOSTIC STRIPS Test blood sugar(s) 4 times d* LANCETS Test blood sugar(s) 4 times d* ALCOHOL SWABS Test blood sugars 4 x's daily* BUTRANS 15 MCG/HOUR TRANSDERM* Apply 1 Patch as directed daniela* SODIUM CHLORIDE 0.65 % NASAL * Use 1 [place] in the nose as ne* LUBRICANTS TOPICAL GEL Apply 1 application to affect* AMANTADINE HCL 100 MG CAPSULE Take 2 capsules by mouth twic* Problem List As Of Date 10/27/2017 Noted Resolved DEPRESSIVE DISORDER NEC(aka DEPRESSION) [F32.9] INVALID FOR* SCHIZOPHRENIA NEC [295.8] INVALID FOR* More... MALIGNANT NEOPLASM COLON NOS(aka COLON) [C18.9] INVALID FOR* More... More... PEPTIC ULCER NOS [K27.9] INVALID FOR* Tobacco use disorder [F17.200] INVALID FOR*11/18/2011 More... Routine general medical examination at a [facility]*INVALID FOR*02/25/2013 More... MACULAR DEGENERATION NOS [H35.30] INVALID FOR* More... Diabetes mellitus type 2, uncontrolled, without*INVALID FOR* Priority: G More... Class 2 obesity due to excess calories with bod*INVALID FOR*11/08/2016 Priority: H More... HEMATURIA NOS [R31.9] INVALID FOR* More... Hyperlipidemia [E78.5] INVALID FOR* More... HEADACHE [R51] INVALID FOR* Sleep Apnea [G47.30] INVALID FOR* More... Asthma [J45.909] Priority: D More... DM w/o complication type II [E11.9] INVALID FOR* Pain in soft tissues of limb [M79.609] INVALID FOR* Dermatophytosis of nail [B35.1] INVALID FOR* Ventral hernia [K43.9] INVALID FOR* Lunate fracture, closed [S62.123A] INVALID FOR* Acute postoperative respiratory insufficiency [*INVALID FOR*07/19/2016 Priority: C More... Bowel obstruction (HCC) [K56.609] INVALID FOR* Priority: A More... Electrolyte and fluid disorder [E87.8] INVALID FOR*03/03/2015 Priority: I More... Post-op pain [G89.18] INVALID FOR* Priority: G More... Postoperative anemia due to acute blood loss [D*INVALID FOR* Priority: F More... H/O schizophrenia [Z86.59] INVALID FOR* Priority: E More... Hypotension [I95.9] INVALID FOR* Priority: E More... Fever [R50.9] INVALID FOR* Priority: F More... Septic shock due to Escherichia coli (HCC) [A41*INVALID FOR*07/19/2016 Priority: B More... Altered mental status [R41.82] INVALID FOR*12/09/2015 Priority: D More... Hyperbilirubinemia [E80.6] INVALID FOR*03/08/2015 More... Hypernatremia [E87.0] INVALID FOR*03/14/2015 Priority: K More... Skin lesion [L98.9] INVALID FOR* Priority: I More... Mild protein-calorie malnutrition (HCC) [E44.1] INVALID FOR* Priority: K More... Electrolyte imbalance [E87.8] INVALID FOR*07/19/2016 Priority: J More... Physical deconditioning [R53.81] INVALID FOR* Priority: L More... Metabolic acidosis [E87.2] INVALID FOR*03/19/2015 Encephalopathy in sepsis [G93.41] INVALID FOR* More... Acute kidney injury (HCC) [N17.9] INVALID FOR*03/19/2015 More... Small intestinal anastomotic leak [K91.89] INVALID FOR* More... Hypernatremia [E87.0] INVALID FOR*03/19/2015 More... Fistula [L98.8] INVALID FOR* On total parenteral nutrition (TPN) [Z78.9] INVALID FOR* Scruggs catheter dysfunction (HCC) [T82.514A] INVALID FOR* Tracheostomy care (HCC) [Z43.0] INVALID FOR* Magnesium deficiency [E61.2] INVALID FOR* Tracheostomy present (HCC) [Z93.0] INVALID FOR*07/24/2017 Hypomagnesemia [E83.42] INVALID FOR* Hematoma [T14.8XXA] INVALID FOR* SBO (small bowel obstruction) ([facility]) [K56.609] INVALID FOR* Ventral hernia with bowel obstruction [K43.6] INVALID FOR* More... 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 Tracheostomy site looks very clean. Good work keeping it that way. 2. Band Aid bandages provided today should be sufficient to protect site. - Change daily. 3. Agree with plan to surgically close tracheostomy. - I will send report to Dr. Talavera. 4. After tracheostomy is closed and healed, we will need to do testing for obstructive sleep apnea and COPD. Kg Smalls MD, [facility] [address] [place] [id number] P: [phone] F: [phone] [email or web address] Visit Notes: >> Kendra Franklin LPN MonOct 27, 2017 2:43 PM Status: Addendum ROS: General: Generally feels fine. Appetite good. Oxygen needs decreasing. Eyes, Ears, nose, throat: denies post nasal drip. denies rhinorrhea. denies purulent nasal discharge. denies epistaxis. denies hoarseness. Vision stable. Cardiac: denies angina, denies edema, denies orthopnea. Notes increased snoring at night since trach removed GI: denies heartburn. denies dysphagia. denies diarrhea. Uro/FOOD TESTER: denies dysuria. denies hesitancy. denies nocturia. Menses: post menopausal Musculoskeletal: denies pain. Neuro: denies headache, denies focal weakness. denies tremor. Skin: denies rash. Otherwise negative. Reviewed with patient, confirmed as documented by Kendar Franklin LPN. TO Prescriptions ordered this encounter Disp Refills Start End COMPOUNDED PRESCRIPTION 1 Ea* 0 10/27/2017 Class: Print RX Sig: Nocturnal oximetry on 2 L. DME: [facility]) Medications Discontinued During This Encounter meloxicam (MOBIC) 7.5 mg tablet 0 04/11/2017 10/27/2017 Class: Historical Med Sig: TAKE ONE TABLET BY MOUTH EVERY DAY ON a full stomach Disc: Course of therapy completed doxycycline monohydrate (MONODOX) 10* 20 c* 0 03/10/2017 10/27/2017 Route: ORAL Sig: Take 1 capsule by mouth twice daily. Disc: Course of therapy completed cetirizine (ZYRTEC) 10 mg tablet 30 t* 0 02/02/2017 10/27/2017 Route: ORAL Sig: Take 1 tablet by mouth once daily. Disc: Course of therapy completed fluticasone (FLONASE) 50 mcg/actuati* 1 Pj* 1 02/02/2017 10/27/2017 Route: EACH NOSTRIL Sig: Use 2 Sprays in each nostril once daily. Rinse mouth after use. Disc: Course of therapy completed COMPOUNDED PRESCRIPTION 1 Ea* 0 05/30/2015 10/27/2017 Class: Print RX Sig: Hand held shower. Needs to sit while showering and use hand held shower. (R53.81) Physical deconditioning; (R26.89) Difficulty balancing when reaching Disc: Course of therapy completed COMPOUNDED PRESCRIPTION 1 De* 0 06/30/2015 10/27/2017 Class: Med Update Sig: Back to previous mode of oxygen (LOX) 2L daytime, 3L at night. Disc: Course of therapy completed COMPOUNDED PRESCRIPTION 100 * 12 11/18/2015 10/27/2017 Class: Print RX Sig: ADHESIVE REMOVER FOR COLOSTOMY BAG REMOVAL DX Z93.3 Disc: Course of therapy completed COMPOUNDED PRESCRIPTION 1 Ea* 0 02/26/2016 10/27/2017 Class: Print RX Sig: Please perform nocturnal oximetry on 5 lpm O2 via trach mask. Please fax results to [phone]. DX: Chronic hypoxemic respiratory failure, J96.11. Disc: Course of therapy completed COMPOUNDED PRESCRIPTION 1 De* 0 03/17/2016 10/27/2017 Class: Print RX Sig: Bed childs (R26.2) Difficulty ambulating due to knee Disc: Course of therapy completed COMPOUNDED PRESCRIPTION 1 De* 0 03/17/2016 10/27/2017 Class: Print RX Sig: Wheel chair (R26.2) Difficulty ambulating due to knee Disc: Course of therapy completed COMPOUNDED PRESCRIPTION 1 Ea* 0 06/22/2016 10/27/2017 Class: Print RX Sig: Abdominal binder for ventral hernia K43.9 Disc: Course of therapy completed COMPOUNDED PRESCRIPTION 1 Ea* 0 08/26/2016 10/27/2017 Class: Print RX Sig: Home pulse ox J96.11 Disc: Course of therapy completed COMPOUNDED PRESCRIPTION 1 Ea* 0 01/20/2017 10/27/2017 Class: Print RX Sig: Stoma check by [facility] (Z93.2) Ileostomy in place (HCC) Disc: Course of therapy completed Follow Up: Discussed this visit Disposition: Return in about 3 months (around 01/27/2018). Follow-up and Disposition History Recorded Encounter Status:Closed by KG SMALLS MD on 11/01/17 ISIAH Observed: 10/24/2017 Status: COMPLETED Source: [place] 12:00 AM [facility] REPOSITORY Patient Outreach ([facility]AMP[facility]) CHRISTOPHER HOBSON ([id number]) 1960 F CHT Date Time Provider Department 10/24/17 [facility] During your visit today, we recorded the following information about you: Allergies As of Date: 10/24/2017 Noted Allergy Reaction CEPHALOSPORINS 04/03/2003 Comments: itching Cherries [Other] 04/03/2003 Comments: angioedema and tongue blisters CIPROFLOXACIN 09/11/2016 10 - Anaphylaxis Comments: It was used with flagyl at the same time so uknown which is the cause CODEINE 04/03/2003 Comments: rash swelling DICLOFENAC 08/28/2003 Comments: rash DILAUDID (HYDROMORPHONE (BULK)) 06/10/2015 9 - Itching FLAGYL (METRONIDAZOLE HCL) 09/11/2016 10 - Anaphylaxis Comments: It was used with flagyl at the same time so uknown which is the cause Philomena [Other] 04/03/2003 Comments: angioedematous tongue and blisters LYRICA (PREGABALIN) 07/04/2017 7 - Swelling OPIOIDS - MORPHINE ANALOGUES 08/28/2003 Comments: rash Pears [Other] 10/09/2003 PENICILLINS 04/03/2003 10 - Anaphylaxis Comments: ?anaphylaxis, patient tolerates zosyn PERCOCET (OXYCODONE-ACETAMINOPHEN)08/13/2004 9 - Itching SOAP 05/30/2006 VICODIN (HYDROCODONE-ACETAMINOPHE*05/21/2009 2 - Rash ZITHROMAX (AZITHROMYCIN) 03/24/2016 2 - Rash Date Reviewed: 09/05/2017 Reviewed by: Janet Keane Ma - Fully Assessed Visit Diagnosis:Medication management [Z79.899] Order(s):ALBUMIN/CREAT RATIO RND UR [SQUACR] Order #: [id number] FUTURE HGB A1C [DJUHE6A] Order #: [id number] FUTURE Prescriptions as of 10/24/2017 Sig: DEXTROMETHORPHAN-GUAIFENESIN * Take 1 tablet by mouth twice * GLIMEPIRIDE 2 MG TABLET Take 2 tablets by mouth daily* IPRATROPIUM-ALBUTEROL 0.5 MG-* Inhale 3 mL as instructed fou* INSULIN GLARGINE (U-100) 100 * Inject 17 Units subcutaneousl* X MAGNESIUM 71.5 MG (MAGNESIUM * Take 1 tablet by mouth once d* HYDROCORTISONE 2.5 % TOPICAL * Apply 1 application to affect* TRIAMCINOLONE ACETONIDE 0.1 %* Apply 1 application to affect* ATORVASTATIN 40 MG TABLET Take 1 tablet by mouth once d* BLOOD SUGAR DIAGNOSTIC STRIPS Test blood sugar(s) 4 times d* PEN NEEDLE, DIABETIC 31 GAUGE* Use one needle per dose (Lant* OMEPRAZOLE 20 MG CAPSULE,DARREN* Take 1 capsule by mouth daily* ADHESIVE TAPE 2 X 10 YARD Use for dressings for healing* METRONIDAZOLE 500 MG TABLET Take 1 tablet by mouth three * DULOXETINE 60 MG CAPSULE,DARREN* Take 1 capsule by mouth once * X MELOXICAM 7.5 MG TABLET TAKE ONE TABLET BY MOUTH EVER* GUAIFENESIN ER 600 MG TABLET,* Take 1 tablet by mouth twice * X DOXYCYCLINE MONOHYDRATE 100 M* Take 1 capsule by mouth twice* X CETIRIZINE 10 MG TABLET Take 1 tablet by mouth once d* X FLUTICASONE 50 MCG/ACTUATION * Use 2 Sprays in each nostril * X COMPOUNDED PRESCRIPTION Stoma check by [facility] (Z93.2) * MICONAZOLE NITRATE 2 % TOPICA* Apply 1 application to affect* BLOOD SUGAR DIAGNOSTIC STRIPS Test blood sugar(s) 4 times d* ALCOHOL SWABS Test blood sugars 4 x's daily* X LANCETS Test blood sugar(s) 4 times d* TRAZODONE 100 MG TABLET Take 3 tablets by mouth daily* TOPIRAMATE 100 MG TABLET Take 1 tablet by mouth once d* BUTRANS 15 MCG/HOUR TRANSDERM* Apply 1 Patch as directed daniela* MELATONIN 3 MG TABLET Take 2 tablets by mouth daily* THIOTHIXENE 2 MG CAPSULE Take 1 capsule by mouth daily* X COMPOUNDED PRESCRIPTION Home pulse ox J96.11 X BUDESONIDE-FORMOTEROL HFA 160* Inhale 2 Puffs as instructed * X COMPOUNDED PRESCRIPTION Abdominal binder for ventral * VRAYLAR 3 MG CAPSULE Take 3 mg by mouth daily at b* WHITE PETROLATUM-MINERAL OIL * Apply 1 application to affect* X COMPOUNDED PRESCRIPTION Bed childs (R26.2) Difficulty * X COMPOUNDED PRESCRIPTION Wheel chair (R26.2) Difficul* X COMPOUNDED PRESCRIPTION Please perform nocturnal oxim* TRIAMCINOLONE ACETONIDE 0.1 %* Apply 1 application to affect* SODIUM CHLORIDE 0.65 % NASAL * Use 1 [place] in the nose as ne* X COMPOUNDED PRESCRIPTION ADHESIVE REMOVER FOR COLOSTOM* X COMPOUNDED PRESCRIPTION Back to previous mode of oxyg* LUBRICANTS TOPICAL GEL Apply 1 application to affect* X AMANTADINE HCL 100 MG CAPSULE Take 2 capsules by mouth twic* X COMPOUNDED PRESCRIPTION Hand held shower. Needs to s* Problem List As Of Date 10/24/2017 Noted Resolved DEPRESSIVE DISORDER NEC(aka DEPRESSION) [F32.9] INVALID FOR* SCHIZOPHRENIA NEC [295.8] INVALID FOR* More... MALIGNANT NEOPLASM COLON NOS(aka COLON) [C18.9] INVALID FOR* More... More... PEPTIC ULCER NOS [K27.9] INVALID FOR* Tobacco use disorder [F17.200] INVALID FOR*11/18/2011 More... Routine general medical examination at a health*INVALID FOR*02/25/2013 More... MACULAR DEGENERATION NOS [H35.30] INVALID FOR* More... Diabetes mellitus type 2, uncontrolled, without*INVALID FOR* Priority: G More... Class 2 obesity due to excess calories with bod*INVALID FOR*11/08/2016 Priority: H More... HEMATURIA NOS [R31.9] INVALID FOR* More... Hyperlipidemia [E78.5] INVALID FOR* More... HEADACHE [R51] INVALID FOR* Sleep Apnea [G47.30] INVALID FOR* More... Asthma [J45.909] Priority: D More... DM w/o complication type II [E11.9] INVALID FOR* Pain in soft tissues of limb [M79.609] INVALID FOR* Dermatophytosis of nail [B35.1] INVALID FOR* Ventral hernia [K43.9] INVALID FOR* Lunate fracture, closed [S62.123A] INVALID FOR* Acute postoperative respiratory insufficiency [*INVALID FOR*07/19/2016 Priority: C More... Bowel obstruction (HCC) [K56.609] INVALID FOR* Priority: A More... Electrolyte and fluid disorder [E87.8] INVALID FOR*03/03/2015 Priority: I More... Post-op pain [G89.18] INVALID FOR* Priority: G More... Postoperative anemia due to acute blood loss [D*INVALID FOR* Priority: F More... H/O schizophrenia [Z86.59] INVALID FOR* Priority: E More... Hypotension [I95.9] INVALID FOR* Priority: E More... Fever [R50.9] INVALID FOR* Priority: F More... Septic shock due to Escherichia coli (HCC) [A41*INVALID FOR*07/19/2016 Priority: B More... Altered mental status [R41.82] INVALID FOR*12/09/2015 Priority: D More... Hyperbilirubinemia [E80.6] INVALID FOR*03/08/2015 More... Hypernatremia [E87.0] INVALID FOR*03/14/2015 Priority: K More... Skin lesion [L98.9] INVALID FOR* Priority: I More... Mild protein-calorie malnutrition (HCC) [E44.1] INVALID FOR* Priority: K More... Electrolyte imbalance [E87.8] INVALID FOR*07/19/2016 Priority: J More... Physical deconditioning [R53.81] INVALID FOR* Priority: L More... Metabolic acidosis [E87.2] INVALID FOR*03/19/2015 Encephalopathy in sepsis [G93.41] INVALID FOR* More... Acute kidney injury (HCC) [N17.9] INVALID FOR*03/19/2015 More... Small intestinal anastomotic leak [K91.89] INVALID FOR* More... Hypernatremia [E87.0] INVALID FOR*03/19/2015 More... Fistula [L98.8] INVALID FOR* On total parenteral nutrition (TPN) [Z78.9] INVALID FOR* Scruggs catheter dysfunction (HCC) [T82.514A] INVALID FOR* Tracheostomy care (HCC) [Z43.0] INVALID FOR* Magnesium deficiency [E61.2] INVALID FOR* Tracheostomy present (HCC) [Z93.0] INVALID FOR*07/24/2017 Hypomagnesemia [E83.42] INVALID FOR* Hematoma [T14.8XXA] INVALID FOR* SBO (small bowel obstruction) (HCC) [K56.609] INVALID FOR* Ventral hernia with bowel obstruction [K43.6] INVALID FOR* More... 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] INVALID FOR* Complete heart block (HCC) [I44.2] INVALID FOR* Cardiac pacemaker in situ [Z95.0] INVALID FOR* Right bundle branch block [I45.10] INVALID FOR* Hypoalbuminemia [E88.09] INVALID FOR* Hypoproteinemia (HCC) [E77.8] INVALID FOR* VRE bacteremia [R78.81, Z16.21] INVALID FOR* Class 1 obesity due to excess calories with ser*INVALID FOR* Encounter Status:Closed by ISSAC, PRODUSER on 12/15/17 PROGRESS Observed: 09/05/2017 Status: COMPLETED Source: [place] 2:26 PM [facility] REPOSITORY HNO ID: [id number] Author: Sheila (Dory) Older Service: (none) Author Type: Nurse Practitioner Type: Progress Notes Filed: 09/07/2017 7:48 AM Note Text: CC: Patient presents with: Chest Congestion HPI: Christopher Hobson is a 56 year old female who presents to the office with complaint of respiratory symptoms for 2.5 weeks. Symptoms are worsening Associated symptoms includes nasal congestion, facial pain/pressure, tactile temperature elevation, left ear pressure . Worsening cough with dark green sputum, wheezing, dyspnea. Denies nausea, vomiting and diarrhea. Treatments tried include Mucinex with no relief of symptoms. Has also been treated with 10 day course of doxycycline without any improvement. Sick contacts: no. History of asthma, frequent episodes of bronchitis, chronic bronchitis, bronchiectasis or COPD: Yes COPD. Patient also had trach that was removed. Reports hole has not closed up yet and has a lot of thick, green drainage from stoma. Denies redness, swelling or pain. She was told by surgeon if hole doesn't close she will need to have it sutured. She does report it is getting smaller though. Smoker: No, quit in 2010 Seasonal/environmental allergies: Yes REVIEW OF SYSTEMS Cardiovascular: no chest pain, no chest pressure, no palpitations and no swelling PAST MEDICAL HISTORY Diagnosis Date - Acute peptic ulcer, unspecified site, without mention of hemorrhage, perforation, or obstruction 1999 - Asthma - Bowel disease Colon polyps - Chronic obstructive pulmonary disease (COPD) ([facility]) - Diabetes ([facility]) 1999 On insulin 2015 - Dyslipidemia - Lunate fracture, closed 11/22/2012 - Other specified disorders of pancreatic internal secretion 04/1999 Diabetes on metformin - Paranoid schizophrenia, chronic condition ([facility]) 1985 - Personal history of colonic polyps 2000 - S/P colostomy ([facility]) - Tracheostomy in place ([facility]) Placed 2015 after prolonged respiratory failure, unable to liberate from vent. - Unspecified migraine 1998 PAST SURGICAL HISTORY Procedure Laterality Date - ANESTH,VAGINAL DELIVERY 1977,1979,1985, 1986 w/ episiotomies - APPENDECTOMY - DANDC, DIAG AND/OR THERAPEUTIC 1977 Dilation AND curettage - INDUCED ABORTN BY DANDC - LIGATE FALLOPIAN TUBE Tubal ligation - PAST SURGICAL HISTORY OF 2004 Abdominal surgeries for hernia repairs - PAST SURGICAL HISTORY OF 2008 Ileostomy - PAST SURGICAL HISTORY OF 09/12/2016 Underwent ex lap, takedown of prior ostomy, RONEY and creation of new end ileostomy on 09/12/16 for parastomal hernia with closed loop hernia - PAST SURGICAL HISTORY OF 09/28/2016 Permanent Pacemaker Placement for complete heart block - REDUCE BOWEL OBSTRUCTION Late February 2015 acute bowel obstruction. SB resection. - REMOVAL OF TONSILS,10+ Y/O - REVISE MEDIAN N/CARPAL TUNNEL SURG 2005 Carpal tunnel decomp right - REVISE MEDIAN N/CARPAL TUNNEL SURG Carpal tunnel decomp left - REVISION OF COLOSTOMY,COMPLICATED 2000 3-4 surgeries - TRACHEOSTOMY HX 03/12/2015 protracted critical stay, failure to wean after bowel obtruction ALLERGIES Cephalosporins; Cherries [Other]; Ciprofloxacin; Codeine; Diclofenac; Dilaudid [Hydromorphone (Bulk)]; Flagyl [Metronidazole Hcl]; Philomena [Other]; Lyrica [Pregabalin]; Opioids - Morphine Analogues; Pears [Other]; Penicillins; Percocet [Oxycodone-Acetaminophen]; Soap; Vicodin [Hydrocodone-Acetaminophen]; Zithromax [Azithromycin] MEDICATIONS Magnesium Chloride (SLOW-MAG) 71.5 mg TbEC Take 1 tablet by mouth once daily. hydrocortisone 2.5 % cream Apply 1 application to affected area twice daily as needed. Location: neck (reaction to tape adhesive) May also use for poison tania. triamcinolone acetonide (KENALOG) 0.1 % cream Apply 1 application to affected area twice daily. Apply to affected area. Location: arms atorvastatin (LIPITOR) 40 mg tablet Take 1 tablet by mouth once daily. omeprazole (PRILOSEC) 20 mg capsule Take 1 capsule by mouth daily before breakfast. 1/2 hr before meal. metroNIDAZOLE (FLAGYL) 500 mg tablet Take 1 tablet by mouth three times daily. DULoxetine (CYMBALTA) 60 mg capsule Take 1 capsule by mouth once daily. meloxicam (MOBIC) 7.5 mg tablet TAKE ONE TABLET BY MOUTH EVERY DAY ON a full stomach guaiFENesin (MUCINEX) 600 mg 12 hr tablet Take 1 tablet by mouth twice daily. doxycycline monohydrate (MONODOX) 100 mg capsule Take 1 capsule by mouth twice daily. cetirizine (ZYRTEC) 10 mg tablet Take 1 tablet by mouth once daily. fluticasone (FLONASE) 50 mcg/actuation nasal spray Use 2 Sprays in each nostril once daily. Rinse mouth after use. miconazole (CADENCE ANTIFUNGAL) 2 % cream Apply 1 application to affected area twice daily. To perirectal and buttocks area glimepiride (AMARYL) 2 mg tablet Take 2 tablets by mouth daily with breakfast. traZODone (DESYREL) 100 mg tablet Take 3 tablets by mouth daily at bedtime. [facility] topiramate (TOPAMAX) 100 mg tablet Take 1 tablet by mouth once daily. Per psychiatrist melatonin 3 mg Take 2 tablets by mouth daily at bedtime. thiothixene (NAVANE) 2 mg capsule Take 1 capsule by mouth daily at bedtime. Per psychiatry, Lorene Dupree, MARY ipratropium-albuterol (DUONEB) 0.5 mg-3 mg(2.5 mg base)/3 mL nebu Inhale 3 mL as instructed four times daily as needed (wheezing). Use over 5-15minutes per nebulizer. budesonide-formoterol (SYMBICORT) 160-4.5 mcg/actuation inhaler Inhale 2 Puffs as instructed twice daily. VRAYLAR 3 mg cap Take 3 mg by mouth daily at bedtime. white petrolatum-mineral oil (EUCERIN) cream Apply 1 application to affected area as needed for Dry Skin (all dry skin areas). triamcinolone acetonide (KENALOG) 0.1 % cream Apply 1 application to affected area three times daily. Apply sparingly to area for rash/itching till rash resolves. For contact dermatitis sodium chloride (SALINE MIST) 0.65 % nasal spray Use 1 [place] in the nose as needed for Cold/Allergy Symptoms. Dispense 1 bottle (not 1 ml) Lubricants (K-Y LUBRICATING) gel Apply 1 application to affected area as needed (Use as needed for Tracheostomy changes). azithromycin (ZITHROMAX Z-HARRIS) 250 mg tablet Take 2 tablets day one, then, 1 tablet daily until gone. dextromethorphan-guaiFENesin (MUCINEX DM) 30-600 mg per tablet Take 1 tablet by mouth twice daily. insulin glargine (BASAGLAR KWIKPEN U-100 INSULIN) 100 unit/mL (3 mL) inpn Inject 17 Units subcutaneously daily at bedtime. blood sugar diagnostic (FREESTYLE INSULINX) test strip Test blood sugar(s) 4 times daily and as needed. Dx: Type 2 DM - Uncontrolled Insulin: Yes insulin needles, DISPOSABLE, (PEN NEEDLE) 31 gauge x 5/16 ndle Use one needle per dose (Lantus and Humalog). 5 per day. Adhesive Tape (DURAPORE SURGICAL) 2 X 10 -yard tape Use for dressings for healing tracheostomy site. COMPOUNDED PRESCRIPTION Stoma check by [facility] (Z93.2) Ileostomy in place (HCC) blood sugar diagnostic (BLOOD GLUCOSE TEST) test strip Test blood sugar(s) 4 times daily and as needed as directed. Dx: Type 2 DM - Uncontrolled Insulin: Yes Lancets lancets Test blood sugar(s) 4 times daily as directed. Dx: Type 2 DM - Uncontrolled Insulin: Yes alcohol swabs (SURE-PREP ALCHOLOL PREP PADS) padm Test blood sugars 4 x's daily. Dx: Insulin: Yes BUTRANS 15 mcg/hour ptwk Apply 1 Patch as directed every Monday. Per Dr. Trevizo COMPOUNDED PRESCRIPTION Home pulse ox J96.11 COMPOUNDED PRESCRIPTION Abdominal binder for ventral hernia K43.9 COMPOUNDED PRESCRIPTION Bed childs (R26.2) Difficulty ambulating due to knee COMPOUNDED PRESCRIPTION Wheel chair (R26.2) Difficulty ambulating due to knee COMPOUNDED PRESCRIPTION Please perform nocturnal oximetry on 5 lpm O2 via trach mask. Please fax results to [phone]. DX: Chronic hypoxemic respiratory failure, J96.11. COMPOUNDED PRESCRIPTION ADHESIVE REMOVER FOR COLOSTOMY BAG REMOVAL DX Z93.3 COMPOUNDED PRESCRIPTION Back to previous mode of oxygen (LOX) 2L daytime, 3L at night. amantadine HCl (SYMMETREL) 100 mg capsule Take 2 capsules by mouth twice daily. (Dr. Dupree) COMPOUNDED PRESCRIPTION Hand held shower. Needs to sit while showering and use hand held shower. (R53.81) Physical deconditioning; (R26.89) Difficulty balancing when reaching FAMILY HISTORY Problem Relation Age of Onset - Pneumonia [OTHER] Mother - Heart Father - Thyroid Daughter - Thyroid Daughter Social History Substance Use Topics - Smoking status: Former Smoker Packs/day: 2.00 Years: 45.00 Types: Cigarettes Start date: 1965 Quit date: 08/27/2010 - Smokeless tobacco: Never Used - Alcohol use No PHYSICAL EXAM: BP 132/80 Pulse 72 Temp 36.1 ?C (96.9 ?F) (Temporal Artery) Resp 10 Wt 95.3 kg (210 lb) SpO2 96% BMI 38.41 kg/m? General appearance: alert, cooperative, pleasant, in no acute distress Head: Normocephalic Eyes: conjunctiva pink and moist, no icterus, sclera white, non-injected Ears: Right ear: External ear/canal- Normal, TM - clear with good landmarks. Left ear: External ear/canal- Normal, TM - clear with good landmarks Nose: mucosa erythematous and swollen, no sinus tenderness Oropharynx :moist without lesions Neck: Trach stoma- dressing removed, small opening without any surrounding erythema or edema. Light yellow mucus from inside stoma. Culture obtained and redressed. Neck supple and no adenopathy Heart: Negative. RRR without obvious murmur, gallop, or rubs. No ectopy. Lungs: clear to auscultation, without rales or wheeze, diminished breath sounds ASSESSMENT/PLAN: 1. COPD with exacerbation ([facility]) - ICD9: 491.21, ICD10: J44.1 (primary diagnosis) No alarm symptoms or exam findings today. Patient has multiple antibiotic allergies. Start Zithromax Can also use Mucinex DM as needed for cough Follow-up in 3-5 days if no improvement in symptoms 2. History of tracheostomy - ICD9: V44.0, ICD10: Z98.890 No signs of infection at stoma. No drainage from stoma but does have yellow mucus. - WOUND CULTURE AND GRAM STAIN of sputum from stoma per patient request Rest of plan as above 3. Uncontrolled type 2 diabetes mellitus without complication, with long-term current use of insulin ([facility]) - ICD9: 250.02, V58.67, ICD10: E11.65, Z79.4 - INSULIN GLARGINE (U-100) 100 UNIT/ML (3 ML) SUBCUTANEOUS PEN refilled 4. Magnesium deficiency - ICD9: 275.2, ICD10: E61.2 - MAGNESIUM 71.5 MG (MAGNESIUM CHLORIDE) TABLET,DELAYED RELEASE refilled Prescription instructions reviewed with patient as applicable. Potential red flag symptoms discussed with the patient. Reviewed appropriate action plan to take if red flag symptoms occur. Patient agreeable to treatment plan. ALICIA ShahOV Observed: 09/05/2017 Status: COMPLETED Source: [place] 2:00 PM [facility] REPOSITORY Office Visit ([facility]) CHRISTOPHER HOBSON ([id number]) 1960 F T Date Time Provider Department 09/05/17 2:00 PM SHEILA MATTHEW (DORY) [facility] During your visit today, we recorded the following information about you: Temperature Pulse Respiration Blood pressure 96.9 degrees 72/minute 10/minute 132/80 Weight 95.3 kg Sheila Matthew APRN.CNP 09/07/2017 7:48 AM Signed CC: Patient presents with: Chest Congestion HPI: Christopher Hobson is a 56 year old female who presents to the office with complaint of respiratory symptoms for 2.5 weeks. Symptoms are worsening Associated symptoms includes nasal congestion, facial pain/pressure, tactile temperature elevation, left ear pressure . Worsening cough with dark green sputum, wheezing, dyspnea. Denies nausea, vomiting and diarrhea. Treatments tried include Mucinex with no relief of symptoms. Has also been treated with 10 day course of doxycycline without any improvement. Sick contacts: no. History of asthma, frequent episodes of bronchitis, chronic bronchitis, bronchiectasis or COPD: Yes COPD. Patient also had trach that was removed. Reports hole has not closed up yet and has a lot of thick, green drainage from stoma. Denies redness, swelling or pain. She was told by surgeon if hole doesn't close she will need to have it sutured. She does report it is getting smaller though. Smoker: No, quit in 2010 Seasonal/environmental allergies: Yes REVIEW OF SYSTEMS Cardiovascular: no chest pain, no chest pressure, no palpitations and no swelling PAST MEDICAL HISTORY Diagnosis Date - Acute peptic ulcer, unspecified site, without mention of hemorrhage, perforation, or obstruction 1999 - Asthma - Bowel disease Colon polyps - Chronic obstructive pulmonary disease (COPD) ([facility]) - Diabetes ([facility]) 1999 On insulin 2015 - Dyslipidemia - Lunate fracture, closed 11/22/2012 - Other specified disorders of pancreatic internal secretion 04/1999 Diabetes on metformin - Paranoid schizophrenia, chronic condition ([facility]) 1985 - Personal history of colonic polyps 2000 - S/P colostomy ([facility]) - Tracheostomy in place ([facility]) Placed 2015 after prolonged respiratory failure, unable to liberate from vent. - Unspecified migraine 1998 PAST SURGICAL HISTORY Procedure Laterality Date - ANESTH,VAGINAL DELIVERY 1977,1979,1985, 1986 w/ episiotomies - APPENDECTOMY - DANMARISA, DIAG AND/OR THERAPEUTIC 1977 Dilation AND curettage - INDUCED ABORTN BY TEODORAOR - LIGATE FALLOPIAN TUBE Tubal ligation - PAST SURGICAL HISTORY OF 2004 Abdominal surgeries for hernia repairs - PAST SURGICAL HISTORY OF 2008 Ileostomy - PAST SURGICAL HISTORY OF 09/12/2016 Underwent ex lap, takedown of prior ostomy, RONEY and creation of new end ileostomy on 09/12/16 for parastomal hernia with closed loop hernia - PAST SURGICAL HISTORY OF 09/28/2016 Permanent Pacemaker Placement for complete heart block - REDUCE BOWEL OBSTRUCTION Late February 2015 acute bowel obstruction. SB resection. - REMOVAL OF TONSILS,10+ Y/O - REVISE MEDIAN N/CARPAL TUNNEL SURG 2005 Carpal tunnel decomp right - REVISE MEDIAN N/CARPAL TUNNEL SURG Carpal tunnel decomp left - REVISION OF COLOSTOMY,COMPLICATED 2000 3-4 surgeries - TRACHEOSTOMY HX 03/12/2015 protracted critical stay, failure to wean after bowel obtruction ALLERGIES Cephalosporins; Cherries [Other]; Ciprofloxacin; Codeine; Diclofenac; Dilaudid [Hydromorphone (Bulk)]; Flagyl [Metronidazole Hcl]; Philomena [Other]; Lyrica [Pregabalin]; Opioids - Morphine Analogues; Pears [Other]; Penicillins; Percocet [Oxycodone-Acetaminophen]; Soap; Vicodin [Hydrocodone-Acetaminophen]; Zithromax [Azithromycin] MEDICATIONS Magnesium Chloride (SLOW-MAG) 71.5 mg TbEC Take 1 tablet by mouth once daily. hydrocortisone 2.5 % cream Apply 1 application to affected area twice daily as needed. Location: neck (reaction to tape adhesive) May also use for poison tania. triamcinolone acetonide (KENALOG) 0.1 % cream Apply 1 application to affected area twice daily. Apply to affected area. Location: arms atorvastatin (LIPITOR) 40 mg tablet Take 1 tablet by mouth once daily. omeprazole (PRILOSEC) 20 mg capsule Take 1 capsule by mouth daily before breakfast. 1/2 hr before meal. metroNIDAZOLE (FLAGYL) 500 mg tablet Take 1 tablet by mouth three times daily. DULoxetine (CYMBALTA) 60 mg capsule Take 1 capsule by mouth once daily. meloxicam (MOBIC) 7.5 mg tablet TAKE ONE TABLET BY MOUTH EVERY DAY ON a full stomach guaiFENesin (MUCINEX) 600 mg 12 hr tablet Take 1 tablet by mouth twice daily. doxycycline monohydrate (MONODOX) 100 mg capsule Take 1 capsule by mouth twice daily. cetirizine (ZYRTEC) 10 mg tablet Take 1 tablet by mouth once daily. fluticasone (FLONASE) 50 mcg/actuation nasal spray Use 2 Sprays in each nostril once daily. Rinse mouth after use. miconazole (CADENCE ANTIFUNGAL) 2 % cream Apply 1 application to affected area twice daily. To perirectal and buttocks area glimepiride (AMARYL) 2 mg tablet Take 2 tablets by mouth daily with breakfast. traZODone (DESYREL) 100 mg tablet Take 3 tablets by mouth daily at bedtime. ([facility]) topiramate (TOPAMAX) 100 mg tablet Take 1 tablet by mouth once daily. Per psychiatrist melatonin 3 mg Take 2 tablets by mouth daily at bedtime. thiothixene (NAVANE) 2 mg capsule Take 1 capsule by mouth daily at bedtime. Per psychiatryLorene NP ipratropium-albuterol (DUONEB) 0.5 mg-3 mg(2.5 mg base)/3 mL nebu Inhale 3 mL as instructed four times daily as needed (wheezing). Use over 5-15minutes per nebulizer. budesonide-formoterol (SYMBICORT) 160-4.5 mcg/actuation inhaler Inhale 2 Puffs as instructed twice daily. VRAYLAR 3 mg cap Take 3 mg by mouth daily at bedtime. white petrolatum-mineral oil (EUCERIN) cream Apply 1 application to affected area as needed for Dry Skin (all dry skin areas). triamcinolone acetonide (KENALOG) 0.1 % cream Apply 1 application to affected area three times daily. Apply sparingly to area for rash/itching till rash resolves. For contact dermatitis sodium chloride (SALINE MIST) 0.65 % nasal spray Use 1 [place] in the nose as needed for Cold/Allergy Symptoms. Dispense 1 bottle (not 1 ml) Lubricants (K-Y LUBRICATING) gel Apply 1 application to affected area as needed (Use as needed for Tracheostomy changes). azithromycin (ZITHROMAX Z-HARRIS) 250 mg tablet Take 2 tablets day one, then, 1 tablet daily until gone. dextromethorphan-guaiFENesin (MUCINEX DM) 30-600 mg per tablet Take 1 tablet by mouth twice daily. insulin glargine (BASAGLAR KWIKPEN U-100 INSULIN) 100 unit/mL (3 mL) inpn Inject 17 Units subcutaneously daily at bedtime. blood sugar diagnostic (FREESTYLE INSULINX) test strip Test blood sugar(s) 4 times daily and as needed. Dx: Type 2 DM - Uncontrolled Insulin: Yes insulin needles, DISPOSABLE, (PEN NEEDLE) 31 gauge x 5/16 ndle Use one needle per dose (Lantus and Humalog). 5 per day. Adhesive Tape (DURAPORE SURGICAL) 2 X 10 -yard tape Use for dressings for healing tracheostomy site. COMPOUNDED PRESCRIPTION Stoma check by [facility] (Z93.2) Ileostomy in place (HCC) blood sugar diagnostic (BLOOD GLUCOSE TEST) test strip Test blood sugar(s) 4 times daily and as needed as directed. Dx: Type 2 DM - Uncontrolled Insulin: Yes Lancets lancets Test blood sugar(s) 4 times daily as directed. Dx: Type 2 DM - Uncontrolled Insulin: Yes alcohol swabs (SURE-PREP ALCHOLOL PREP PADS) padm Test blood sugars 4 x's daily. Dx: Insulin: Yes BUTRANS 15 mcg/hour ptwk Apply 1 Patch as directed every Monday. Per Dr. Trevizo COMPOUNDED PRESCRIPTION Home pulse ox J96.11 COMPOUNDED PRESCRIPTION Abdominal binder for ventral hernia K43.9 COMPOUNDED PRESCRIPTION Bed childs (R26.2) Difficulty ambulating due to knee COMPOUNDED PRESCRIPTION Wheel chair (R26.2) Difficulty ambulating due to knee COMPOUNDED PRESCRIPTION Please perform nocturnal oximetry on 5 lpm O2 via trach mask. Please fax results to [phone]. DX: Chronic hypoxemic respiratory failure, J96.11. COMPOUNDED PRESCRIPTION ADHESIVE REMOVER FOR COLOSTOMY BAG REMOVAL DX Z93.3 COMPOUNDED PRESCRIPTION Back to previous mode of oxygen (LOX) 2L daytime, 3L at night. amantadine HCl (SYMMETREL) 100 mg capsule Take 2 capsules by mouth twice daily. (Dr. Dupree) COMPOUNDED PRESCRIPTION Hand held shower. Needs to sit while showering and use hand held shower. (R53.81) Physical deconditioning; (R26.89) Difficulty balancing when reaching FAMILY HISTORY Problem Relation Age of Onset - Pneumonia [OTHER] Mother - Heart Father - Thyroid Daughter - Thyroid Daughter Social History Substance Use Topics - Smoking status: Former Smoker Packs/day: 2.00 Years: 45.00 Types: Cigarettes Start date: 1965 Quit date: 08/27/2010 - Smokeless tobacco: Never Used - Alcohol use No PHYSICAL EXAM: BP 132/80 Pulse 72 Temp 36.1 ?C (96.9 ?F) (Temporal Artery) Resp 10 Wt 95.3 kg (210 lb) SpO2 96% BMI 38.41 kg/m? General appearance: alert, cooperative, pleasant, in no acute distress Head: Normocephalic Eyes: conjunctiva pink and moist, no icterus, sclera white, non-injected Ears: Right ear: External ear/canal- Normal, TM - clear with good landmarks. Left ear: External ear/canal- Normal, TM - clear with good landmarks Nose: mucosa erythematous and swollen, no sinus tenderness Oropharynx :moist without lesions Neck: Trach stoma- dressing removed, small opening without any surrounding erythema or edema. Light yellow mucus from inside stoma. Culture obtained and redressed. Neck supple and no adenopathy Heart: Negative. RRR without obvious murmur, gallop, or rubs. No ectopy. Lungs: clear to auscultation, without rales or wheeze, diminished breath sounds ASSESSMENT/PLAN: 1. COPD with exacerbation (HCC) - ICD9: 491.21, ICD10: J44.1 (primary diagnosis) No alarm symptoms or exam findings today. Patient has multiple antibiotic allergies. Start Zithromax Can also use Mucinex DM as needed for cough Follow-up in 3-5 days if no improvement in symptoms 2. History of tracheostomy - ICD9: V44.0, ICD10: Z98.890 No signs of infection at stoma. No drainage from stoma but does have yellow mucus. - WOUND CULTURE AND GRAM STAIN of sputum from stoma per patient request Rest of plan as above 3. Uncontrolled type 2 diabetes mellitus without complication, with long-term current use of insulin (HCC) - ICD9: 250.02, V58.67, ICD10: E11.65, Z79.4 - INSULIN GLARGINE (U-100) 100 UNIT/ML (3 ML) SUBCUTANEOUS PEN refilled 4. Magnesium deficiency - ICD9: 275.2, ICD10: E61.2 - MAGNESIUM 71.5 MG (MAGNESIUM CHLORIDE) TABLET,DELAYED RELEASE refilled Prescription instructions reviewed with patient as applicable. Potential red flag symptoms discussed with the patient. Reviewed appropriate action plan to take if red flag symptoms occur. Patient agreeable to treatment plan. Sheila Matthew APRN.HEAD MILLER Referring Provider: SELF [[id number]] Allergies As of Date: 09/05/2017 Noted Allergy Reaction CEPHALOSPORINS 04/03/2003 Comments: itching Cherries [Other] 04/03/2003 Comments: angioedema and tongue blisters CIPROFLOXACIN 09/11/2016 10 - Anaphylaxis Comments: It was used with flagyl at the same time so uknown which is the cause CODEINE 04/03/2003 Comments: rash swelling DICLOFENAC 08/28/2003 Comments: rash DILAUDID (HYDROMORPHONE (BULK)) 06/10/2015 9 - Itching FLAGYL (METRONIDAZOLE HCL) 09/11/2016 10 - Anaphylaxis Comments: It was used with flagyl at the same time so uknown which is the cause Philomena [Other] 04/03/2003 Comments: angioedematous tongue and blisters LYRICA (PREGABALIN) 07/04/2017 7 - Swelling OPIOIDS - MORPHINE ANALOGUES 08/28/2003 Comments: rash Pears [Other] 10/09/2003 PENICILLINS 04/03/2003 10 - Anaphylaxis Comments: ?anaphylaxis, patient tolerates zosyn PERCOCET (OXYCODONE-ACETAMINOPHEN)08/13/2004 9 - Itching SOAP 05/30/2006 VICODIN (HYDROCODONE-ACETAMINOPHE*05/21/2009 2 - Rash ZITHROMAX (AZITHROMYCIN) 03/24/2016 2 - Rash Date Reviewed: 09/05/2017 Reviewed by: Janet Keane Ma - Fully Assessed Reason for Visit: Chest Congestion [[id number]] Primary Visit Diagnosis:COPD with exacerbation (HCC) [J44.1] Other Visit Diagnoses:History of tracheostomy [Z98.890] Uncontrolled type 2 diabetes mellitus without complication, with long-term current use of insulin (HCC) [E11.65, Z79.4] Magnesium deficiency [E61.2] Order(s):Magnesium Chloride (SLOW-MAG) 71.5 mg TbECTake 1 tablet by mouth once daily.Disp: 30 tabletRfl: 5 azithromycin (ZITHROMAX Z-HARRIS) 250 mg tabletTake 2 tablets day one, then, 1 tablet daily until gone.Disp: 1 PackageRfl: 0 dextromethorphan-guaiFENesin (MUCINEX DM) 30-600 mg per tabletTake 1 tablet by mouth twice daily.Disp: 60 tabletRfl: 2 WOUND CULTURE AND GRAM STAIN [SQWCUL] Order #: [id number]. #:[id number] Prescriptions as of 09/05/2017 Sig: MAGNESIUM 71.5 MG (MAGNESIUM * Take 1 tablet by mouth once d* X INSULIN GLARGINE (U-100) 100 * Inject 17 Units subcutaneousl* HYDROCORTISONE 2.5 % TOPICAL * Apply 1 application to affect* TRIAMCINOLONE ACETONIDE 0.1 %* Apply 1 application to affect* ATORVASTATIN 40 MG TABLET Take 1 tablet by mouth once d* OMEPRAZOLE 20 MG CAPSULE,DARREN* Take 1 capsule by mouth daily* METRONIDAZOLE 500 MG TABLET Take 1 tablet by mouth three * DULOXETINE 60 MG CAPSULE,DARREN* Take 1 capsule by mouth once * MELOXICAM 7.5 MG TABLET TAKE ONE TABLET BY MOUTH EVER* GUAIFENESIN ER 600 MG TABLET,* Take 1 tablet by mouth twice * DOXYCYCLINE MONOHYDRATE 100 M* Take 1 capsule by mouth twice* CETIRIZINE 10 MG TABLET Take 1 tablet by mouth once d* FLUTICASONE 50 MCG/ACTUATION * Use 2 Sprays in each nostril * MICONAZOLE NITRATE 2 % TOPICA* Apply 1 application to affect* GLIMEPIRIDE 2 MG TABLET Take 2 tablets by mouth daily* TRAZODONE 100 MG TABLET Take 3 tablets by mouth daily* TOPIRAMATE 100 MG TABLET Take 1 tablet by mouth once d* MELATONIN 3 MG TABLET Take 2 tablets by mouth daily* THIOTHIXENE 2 MG CAPSULE Take 1 capsule by mouth daily* IPRATROPIUM-ALBUTEROL 0.5 MG-* Inhale 3 mL as instructed fou* BUDESONIDE-FORMOTEROL HFA 160* Inhale 2 Puffs as instructed * VRAYLAR 3 MG CAPSULE Take 3 mg by mouth daily at b* WHITE PETROLATUM-MINERAL OIL * Apply 1 application to affect* TRIAMCINOLONE ACETONIDE 0.1 %* Apply 1 application to affect* SODIUM CHLORIDE 0.65 % NASAL * Use 1 [place] in the nose as ne* LUBRICANTS TOPICAL GEL Apply 1 application to affect* AZITHROMYCIN 250 MG TABLET Take 2 tablets day one, then,* DEXTROMETHORPHAN-GUAIFENESIN * Take 1 tablet by mouth twice * BLOOD SUGAR DIAGNOSTIC STRIPS Test blood sugar(s) 4 times d* PEN NEEDLE, DIABETIC 31 GAUGE* Use one needle per dose (Lant* ADHESIVE TAPE 2 X 10 YARD Use for dressings for healing* COMPOUNDED PRESCRIPTION Stoma check by [facility] (Z93.2) * BLOOD SUGAR DIAGNOSTIC STRIPS Test blood sugar(s) 4 times d* LANCETS Test blood sugar(s) 4 times d* ALCOHOL SWABS Test blood sugars 4 x's daily* BUTRANS 15 MCG/HOUR TRANSDERM* Apply 1 Patch as directed daniela* COMPOUNDED PRESCRIPTION Home pulse ox J96.11 COMPOUNDED PRESCRIPTION Abdominal binder for ventral * COMPOUNDED PRESCRIPTION Bed childs (R26.2) Difficulty * COMPOUNDED PRESCRIPTION Wheel chair (R26.2) Difficul* COMPOUNDED PRESCRIPTION Please perform nocturnal oxim* COMPOUNDED PRESCRIPTION ADHESIVE REMOVER FOR COLOSTOM* COMPOUNDED PRESCRIPTION Back to previous mode of oxyg* AMANTADINE HCL 100 MG CAPSULE Take 2 capsules by mouth twic* COMPOUNDED PRESCRIPTION Hand held shower. Needs to s* Problem List As Of Date 09/05/2017 Noted Resolved DEPRESSIVE DISORDER NEC(aka DEPRESSION) [F32.9] INVALID FOR* SCHIZOPHRENIA NEC [295.8] INVALID FOR* More... MALIGNANT NEOPLASM COLON NOS(aka COLON) [C18.9] INVALID FOR* More... More... PEPTIC ULCER NOS [K27.9] INVALID FOR* Tobacco use disorder [F17.200] INVALID FOR*11/18/2011 More... Routine general medical examination at a health*INVALID FOR*02/25/2013 More... MACULAR DEGENERATION NOS [H35.30] INVALID FOR* More... Diabetes mellitus type 2, uncontrolled, without*INVALID FOR* Priority: G More... Class 2 obesity due to excess calories with bod*INVALID FOR*11/08/2016 Priority: H More... HEMATURIA NOS [R31.9] INVALID FOR* More... Hyperlipidemia [E78.5] INVALID FOR* More... HEADACHE [R51] INVALID FOR* Sleep Apnea [G47.30] INVALID FOR* More... Asthma [J45.909] Priority: D More... DM w/o complication type II [E11.9] INVALID FOR* Pain in soft tissues of limb [M79.609] INVALID FOR* Dermatophytosis of nail [B35.1] INVALID FOR* Ventral hernia [K43.9] INVALID FOR* Lunate fracture, closed [S62.123A] INVALID FOR* Acute postoperative respiratory insufficiency [*INVALID FOR*07/19/2016 Priority: C More... Bowel obstruction (HCC) [K56.609] INVALID FOR* Priority: A More... Electrolyte and fluid disorder [E87.8] INVALID FOR*03/03/2015 Priority: I More... Post-op pain [G89.18] INVALID FOR* Priority: G More... Postoperative anemia due to acute blood loss [D*INVALID FOR* Priority: F More... H/O schizophrenia [Z86.59] INVALID FOR* Priority: E More... Hypotension [I95.9] INVALID FOR* Priority: E More... Fever [R50.9] INVALID FOR* Priority: F More... Septic shock due to Escherichia coli (HCC) [A41*INVALID FOR*07/19/2016 Priority: B More... Altered mental status [R41.82] INVALID FOR*12/09/2015 Priority: D More... Hyperbilirubinemia [E80.6] INVALID FOR*03/08/2015 More... Hypernatremia [E87.0] INVALID FOR*03/14/2015 Priority: K More... Skin lesion [L98.9] INVALID FOR* Priority: I More... Mild protein-calorie malnutrition (HCC) [E44.1] INVALID FOR* Priority: K More... Electrolyte imbalance [E87.8] INVALID FOR*07/19/2016 Priority: J More... Physical deconditioning [R53.81] INVALID FOR* Priority: L More... Metabolic acidosis [E87.2] INVALID FOR*03/19/2015 Encephalopathy in sepsis [G93.41] INVALID FOR* More... Acute kidney injury (HCC) [N17.9] INVALID FOR*03/19/2015 More... Small intestinal anastomotic leak [K91.89] INVALID FOR* More... Hypernatremia [E87.0] INVALID FOR*03/19/2015 More... Fistula [L98.8] INVALID FOR* On total parenteral nutrition (TPN) [Z78.9] INVALID FOR* Scruggs catheter dysfunction ([facility]) [T82.514A] INVALID FOR* Tracheostomy care ([facility]) [Z43.0] INVALID FOR* Magnesium deficiency [E61.2] INVALID FOR* Tracheostomy present ([facility]) [Z93.0] INVALID FOR*07/24/2017 Hypomagnesemia [E83.42] INVALID FOR* Hematoma [T14.8XXA] INVALID FOR* SBO (small bowel obstruction) ([facility]) [K56.609] INVALID FOR* Ventral hernia with bowel obstruction [K43.6] INVALID FOR* More... 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 MAGNESIUM 71.5 MG (MAGNESIUM CHLORID* 30 t* 5 09/05/2017 Route: ORAL Sig: Take 1 tablet by mouth once daily. AZITHROMYCIN 250 MG TABLET 1 Pa* 0 09/05/2017 09/10/2017 Sig: Take 2 tablets day one, then, 1 tablet daily until gone. DEXTROMETHORPHAN-GUAIFENESIN 30 MG-6* 60 t* 2 09/05/2017 Route: ORAL Sig: Take 1 tablet by mouth twice daily. Medications Discontinued During This Encounter benzonatate (TESSALON PERLES) 100 mg* 30 c* 0 09/04/2017 09/05/2017 Route: ORAL Sig: Take 1 capsule by mouth three times daily as needed for Cough. Disc: Reason for discontinue is not on file. insulin glargine (LANTUS SOLOSTAR) 1* 0 10/17/2016 09/05/2017 Class: Med Update Route: SUBCUTANEOUS Sig: Inject 17 Units subcutaneously daily at bedtime. (patient instructed to increase dose, but as of October 17, 2016, had not yet increased) Disc: Reason for discontinue is not on file. Magnesium Chloride (SLOW-MAG) 71.5 m* 10/21/2016 09/05/2017 Class: Med Update Cmt: This replaces previous Mg dose Route: ORAL Sig: Take 1 tablet by mouth once daily. Disc: Reason for discontinue is not on file. Encounter Status:Closed by SHEILA MATTHEW CNP on 09/07/17 WOUND Observed: 09/05/2017 Status: F Source: [place] CULTURE/STAIN 2:16 AM [facility] REPOSITORY Sp. Request/Comment: - Swab Smear Result - Rare Gram positive cocci --> ABNORMAL ALERT Rare --> ABNORMAL ALERT Gram negative bacilli --> ABNORMAL ALERT No Polymorphonuclear leukocytes Culture Result - Moderate Pseudomonas aeruginosa --> ABNORMAL ALERT Rare skin maryanne ORGANISM: Pseudomonas aeruginosa METHOD: Minimum inhibitory concentration(Vitek) Antibiotic Interp AURELIA Status Gentamicin SUSCEPTIBLE <=1 F Ciprofloxacin SUSCEPTIBLE <=0.25 F Cefepime SUSCEPTIBLE 2 F Piperacillin/Tazobac SUSCEPTIBLE 8 F Meropenem SUSCEPTIBLE <=0.25 F Performed By: #### WCUL #### [facility] [address] [place], [place] [address] EMERGENCY DEPARTMENT Observed: 08/28/2017 Status: F Source: [place] SUMMARY 3:29 PM [facility] REPOSITORY [facility] Medical Records Department [address] [place] [address] Emergency Department Summary 08/28/17 1525 MR#: [id number] Acct: [id number] Name: CHRISTOPHER HOBSON Rep #: [id number] : 1960 56 From: Grant Vega MD PCP: Tiff Pearson MD Status: REG ER - ER Visit Summary Date of Service: 08/28/17 Chief Complaint: [cough, wheezing] History of Present Illness: The patient is a 56 F [that cough and wheezing for the last several weeks. She is currently on antibiotics from her [facility] physician. She had her tracheostomy removed 2 weeks ago. No difficulty breathing or shortness of breath. She denies any chest pain. No trach site drainage. She has a history of asthma and COPD. She appears well and in no acute distress. She has no other complaints.] Physical Examination: [General: The patient appears well and in no apparent distress. Patient is resting comfortably on cart. Skin: Warm, dry, no pallor noted. No rash. Head: Normocephalic, atraumatic Neck: Supple, nontender. ENT: Moist mucus membranes, pharynx within normal limits. Prior trach site benign. Cardiovascular: Regular Rate and Rhythm, no gallups or rubs Respiratory: Patient is in no distress, no accessory muscle use, lungs are clear to auscultation, no wheezing, rales or rhonchi Musculoskeletal: normal ROM, no deformity, no tenderness, no swelling. 2+ radial and DP pulses symmetric. GI: No tenderness to palpation, no masses appreciated. No rebound, guarding, or rigidity noted. Neurological: A AND O, normal strength and sensation. Psychiatric: Cooperative] Test Results: [Chest x-ray no acute process] Emergency Department Course and Treatment: [She shows no acute process. She was ordered breathing treatments. She requested a decongestant and will be given a dose of Sudafed. I instructed her to finish her course of antibiotics and follow closely with her primary provider. I will write her a prescription for Mucinex. She was instructed to return with any new or worsening symptoms. Patient discharged home in stable condition.] Treatment Plan: [see above] Disposition: [discharge home] Impression: [URI, Cough] This note was generated with [employer] dictation software. It may contain incorrect words, spelling, and punctuation that were not noted in review of the chart prior to signing ED Disposition - Plan for ED Patient: Disposition: Home or Assisted Living Chief Complaint: Cold Sx Instructions: ED Upper Resp Infec Abx Tx Prescriptions: Guaifenesin [Mucinex] 600 mg PO BID #10 [id number] Referrals: Tiff Pearson MD [Primary Care Provider] - Anthony Talavera MD [STAFF PHYSICIAN] - What to do if you have Problems For any increased pain, shortness of breath, bleeding, nausea or vomiting, chest pain, or any unexpected problems, contact your Primary Care Provider. Call [facility] ([phone]) or report to the closest Emergency Room. Call 911 if necessary. 08/28/17 1529 <Electronically signed by Grant Vega MD> Date Grant Vega MD Cosigner Signature (If Indicated): Date CC: Tiff Pearson MD CHEST PA AND LATERAL Observed: 08/28/2017 Status: F Source: [place] 2:14 PM [facility] REPOSITORY [facility] Imaging Services [facility] [place] [address] Chest PA and Lateral MR#: [id number] Acct: [id number] Name: CHRISTOPHER HOBSON Michelet Rep #: [id number] : 1960 F 56 From: Joshua Cabral MD PCP: Tiff Pearson MD Status: REG ER Study: Chest PA and Lateral Date of Exam: 08/28/17 Exam# [id number] Ordering Dr: Grant Vega MD STUDY: X-RAY CHEST REASON FOR EXAM: Female, 56 years old. Persistent cough and wheezing. COPD. TECHNIQUE: PA and lateral views of the chest. COMPARISON: Comparison is made with prior study dated December 31, 2013. FINDINGS: There is mild elevation of the right hemidiaphragm. Stable blunting of the right costophrenic angle. No acute mouth is seen. There is no demonstrated pleural abnormality. Normal size heart. A loop recorder device is seen. Normal mediastinum and erick. Normal visualized pulmonary arteries. There is atherosclerotic tortuosity of the aortic arch and descending thoracic aorta. There is demineralization of the osseous structures. Increased kyphosis. Normal visualized ribs, clavicles, and shoulders. There is no demonstrated abnormality of the visualized soft tissue structures of the upper abdomen. RAD/Chest PA and Lateral IMPRESSION: No acute abnormality is seen. Electronically Signed: Joshua Cabral MD at 15:17 EDT Tel [phone], Service support , CC: Markus Vega MD; Tiff Pearson MD Alodize Machine Helper: Signed GROUP A STREP BY Collected: 08/23/2017 Status: F Source: [place] PCR 10:15 PM [facility] REPOSITORY TYPE CODE TESTS RESULT OUT OF REFERENCE UNITS RANGE LAB GASSRC Throat Swab GAS Specimen Source LAB PCRGAS Negative for Group A Strep Group A PCR Streptococcus by PCR. Result Comment: This test was developed and its performance characteristics determined by [facility] Alphonso [facility] [place] ([facility]). It has not been cleared or approved by the FDA. -[facility] is regulated under CLIA as qualified to perform high-complexity testing. This test is used for clinical purposes. It should not be regarded as inv estigational or for research. Performed By: #### GASPCR #### [facility] [address] [place], [place] [address] PROGRESS Observed: 08/23/2017 Status: COMPLETED Source: [place] 10:09 AM [facility] REPOSITORY HNO ID: [id number] Author: Lisa Sotomayor) Zena Service: (none) Author Type: Physician Hay Rake Operator Type: Progress Notes Filed: 08/23/2017 11:40 AM Note Text: Subjective HPI Pt presents with a sore throat and congestion for 2 days. Her has similar symptoms. No fever or chills. Slight cough. No CP or SOB. She had her trach removed 2-3 months ago per the patient and it is healing up. No fever. No nvd. Review of Systems Constitutional: Negative. HENT: Positive for congestion and sore throat. Eyes: Negative. Respiratory: Positive for cough. Negative for sputum production, shortness of breath and wheezing. Cardiovascular: Negative. Gastrointestinal: Negative. Genitourinary: Negative. Musculoskeletal: Negative. Skin: Negative. All other systems reviewed and are negative. 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 - Unspecified migraine 1998 Current Outpatient Prescriptions: hydrocortisone 2.5 % cream Apply 1 application to affected area twice daily as needed. Location: neck (reaction to tape adhesive) May also use for poison tania. Disp: 28 g Rfl: 0 triamcinolone acetonide (KENALOG) 0.1 % cream Apply 1 application to affected area twice daily. Apply to affected area. Location: arms Disp: 30 g Rfl: 0 atorvastatin (LIPITOR) 40 mg tablet Take 1 tablet by mouth once daily. Disp: 30 tablet Rfl: 11 blood sugar diagnostic (FREESTYLE INSULINX) test strip Test blood sugar(s) 4 times daily and as needed. Dx: Type 2 DM - Uncontrolled E11.65 Insulin: Yes Disp: 150 Strip Rfl: 11 insulin needles, DISPOSABLE, (PEN NEEDLE) 31 gauge x 5/16 ndle Use one needle per dose (Lantus and Humalog). 5 per day. Disp: 150 Each Rfl: 11 omeprazole (PRILOSEC) 20 mg capsule Take 1 capsule by mouth daily before breakfast. 1/2 hr before meal. Disp: 90 capsule Rfl: 3 Adhesive Tape (DURAPORE SURGICAL) 2 X 10 -yard tape Use for dressings for healing tracheostomy site. Disp: 1 Each Rfl: 1 metroNIDAZOLE (FLAGYL) 500 mg tablet Take 1 tablet by mouth three times daily. Disp: 30 tablet Rfl: 0 DULoxetine (CYMBALTA) 60 mg capsule Take 1 capsule by mouth once daily. Disp: Rfl: meloxicam (MOBIC) 7.5 mg tablet TAKE ONE TABLET BY MOUTH EVERY DAY ON a full stomach Disp: Rfl: 0 guaiFENesin (MUCINEX) 600 mg 12 hr tablet Take 1 tablet by mouth twice daily. Disp: 60 tablet Rfl: 5 doxycycline monohydrate (MONODOX) 100 mg capsule Take 1 capsule by mouth twice daily. Disp: 20 capsule Rfl: 0 Benzonatate (TESSALON) 200 mg capsule Take 1 capsule by mouth twice daily as needed for Cough. Disp: 30 capsule Rfl: 0 cetirizine (ZYRTEC) 10 mg tablet Take 1 tablet by mouth once daily. Disp: 30 tablet Rfl: 0 fluticasone (FLONASE) 50 mcg/actuation nasal spray Use 2 Sprays in each nostril once daily. Rinse mouth after use. Disp: 1 Bottle Rfl: 1 COMPOUNDED PRESCRIPTION Stoma check by [facility] (Z93.2) Ileostomy in place (HCC) Disp: 1 Each Rfl: 0 miconazole (CADENCE ANTIFUNGAL) 2 % cream Apply 1 application to affected area twice daily. To perirectal and buttocks area Disp: 92 g Rfl: 2 blood sugar diagnostic (BLOOD GLUCOSE TEST) test strip Test blood sugar(s) 4 times daily and as needed as directed. Dx: Type 2 DM - Uncontrolled E11.65 Insulin: Yes Disp: 150 Strip Rfl: 11 Lancets lancets Test blood sugar(s) 4 times daily as directed. Dx: Type 2 DM - Uncontrolled E11.65 Insulin: Yes Disp: 100 Each Rfl: 11 alcohol swabs (SURE-PREP ALCHOLOL PREP PADS) padm Test blood sugars 4 x's daily. Dx: E11.65 Insulin: Yes Disp: 200 Each Rfl: 11 glimepiride (AMARYL) 2 mg tablet Take 2 tablets by mouth daily with breakfast. Disp: 60 tablet Rfl: 11 traZODone (DESYREL) 100 mg tablet Take 3 tablets by mouth daily at bedtime. ([facility]) Disp: Rfl: Magnesium Chloride (SLOW-MAG) 71.5 mg TbEC Take 1 tablet by mouth once daily. Disp: Rfl: insulin glargine (LANTUS SOLOSTAR) 100 unit/mL (3 mL) inpn Inject 17 Units subcutaneously daily at bedtime. (patient instructed to increase dose, but as of October 17, 2016, had not yet increased) Disp: Rfl: 0 topiramate (TOPAMAX) 100 mg tablet Take 1 tablet by mouth once daily. Per psychiatrist Disp: Rfl: BUTRANS 15 mcg/hour ptwk Apply 1 Patch as directed every Monday. Per Dr. Trevizo Disp: Rfl: 0 melatonin 3 mg Take 2 tablets by mouth daily at bedtime. Disp: Rfl: 0 thiothixene (NAVANE) 2 mg capsule Take 1 capsule by mouth daily at bedtime. Per psychiatryLorene, MARY Disp: Rfl: ipratropium-albuterol (DUONEB) 0.5 mg-3 mg(2.5 mg base)/3 mL nebu Inhale 3 mL as instructed four times daily as needed (wheezing). Use over 5-15minutes per nebulizer. Disp: 120 Vial Rfl: 11 COMPOUNDED PRESCRIPTION Home pulse ox J96.11 Disp: 1 Each Rfl: 0 budesonide-formoterol (SYMBICORT) 160-4.5 mcg/actuation inhaler Inhale 2 Puffs as instructed twice daily. Disp: 1 Inhaler Rfl: 5 COMPOUNDED PRESCRIPTION Abdominal binder for ventral hernia K43.9 Disp: 1 Each Rfl: 0 VRAYLAR 3 mg cap Take 3 mg by mouth daily at bedtime. Disp: Rfl: white petrolatum-mineral oil (EUCERIN) cream Apply 1 application to affected area as needed for Dry Skin (all dry skin areas). Disp: 120 g Rfl: 1 COMPOUNDED PRESCRIPTION Bed childs (R26.2) Difficulty ambulating due to knee Disp: 1 Device Rfl: 0 COMPOUNDED PRESCRIPTION Wheel chair (R26.2) Difficulty ambulating due to knee Disp: 1 Device Rfl: 0 COMPOUNDED PRESCRIPTION Please perform nocturnal oximetry on 5 lpm O2 via trach mask. Please fax results to [phone]. DX: Chronic hypoxemic respiratory failure, J96.11. Disp: 1 Each Rfl: 0 triamcinolone acetonide (KENALOG) 0.1 % cream Apply 1 application to affected area three times daily. Apply sparingly to area for rash/itching till rash resolves. For contact dermatitis Disp: 15 g Rfl: 1 sodium chloride (SALINE MIST) 0.65 % nasal spray Use 1 [place] in the nose as needed for Cold/Allergy Symptoms. Dispense 1 bottle (not 1 ml) Disp: 1 mL Rfl: 11 COMPOUNDED PRESCRIPTION ADHESIVE REMOVER FOR COLOSTOMY BAG REMOVAL DX Z93.3 Disp: 100 Box Rfl: 12 COMPOUNDED PRESCRIPTION Back to previous mode of oxygen (LOX) 2L daytime, 3L at night. Disp: 1 Device Rfl: 0 Lubricants (K-Y LUBRICATING) gel Apply 1 application to affected area as needed (Use as needed for Tracheostomy changes). Disp: 1 Tube Rfl: 11 amantadine HCl (SYMMETREL) 100 mg capsule Take 2 capsules by mouth twice daily. (Dr. Dupree) Disp: Rfl: COMPOUNDED PRESCRIPTION Hand held shower. Needs to sit while showering and use hand held shower. (R53.81) Physical deconditioning; (R26.89) Difficulty balancing when reaching Disp: 1 Each Rfl: 0 benzonatate (TESSALON PERLES) 100 mg capsule Take 2 capsules by mouth three times daily as needed. Disp: 30 capsule Rfl: 0 No current facility-administered medications for this visit. PAST SURGICAL HISTORY Procedure Laterality Date - ANESTH,VAGINAL DELIVERY 1977,1979,1985, 1986 w/ episiotomies - APPENDECTOMY - [facility], DIAG AND/OR THERAPEUTIC 1977 Dilation AND curettage - INDUCED ABORTN BY [facility] - LIGATE FALLOPIAN TUBE Tubal ligation - PAST SURGICAL HISTORY OF 2004 Abdominal surgeries for hernia repairs - PAST SURGICAL HISTORY OF 2008 Ileostomy - PAST SURGICAL HISTORY OF 09/12/2016 Underwent ex lap, takedown of prior ostomy, RONEY and creation of new end ileostomy on 09/12/16 for parastomal hernia with closed loop hernia - PAST SURGICAL HISTORY OF 09/28/2016 Permanent Pacemaker Placement for complete heart block - REDUCE BOWEL OBSTRUCTION Late February 2015 acute bowel obstruction. SB resection. - REMOVAL OF TONSILS,10+ Y/O - REVISE MEDIAN N/CARPAL TUNNEL SURG 2006 Carpal tunnel decomp right - REVISE MEDIAN N/CARPAL TUNNEL SURG Carpal tunnel decomp left - REVISION OF COLOSTOMY,COMPLICATED 2000 3-4 surgeries - TRACHEOSTOMY HX 03/12/2015 protracted critical stay, failure to wean after bowel obtruction FAMILY HISTORY Problem Relation Age of Onset - Pneumonia [OTHER] Mother - Heart Father - Thyroid Daughter - Thyroid Daughter Social History Substance Use Topics - Smoking status: Former Smoker Packs/day: 2.00 Years: 45.00 Types: Cigarettes Start date: 1965 Quit date: 08/27/2010 - Smokeless tobacco: Never Used - Alcohol use No BP 130/80 Pulse 74 Temp 36.3 ?C (97.3 ?F) (Tympanic) Resp 16 Wt 95.5 kg (210 lb 9.6 oz) BMI 38.52 kg/m? Pulse ox 96% Objective Physical Exam Constitutional: She is oriented to person, place, and time and well-developed, well-nourished, and in no distress. HENT: Head: Normocephalic and atraumatic. Right Ear: Tympanic membrane, external ear and ear canal normal. Left Ear: Tympanic membrane, external ear and ear canal normal. Nose: Rhinorrhea present. Mouth/Throat: Uvula is midline and mucous membranes are normal. No oropharyngeal exudate, posterior oropharyngeal edema, posterior oropharyngeal erythema or tonsillar abscesses. Eyes: Conjunctivae are normal. Neck: Normal range of motion. Neck supple. Cardiovascular: Normal rate, regular rhythm and normal heart sounds. Pulmonary/Chest: Effort normal and breath sounds normal. Neurological: She is alert and oriented to person, place, and time. Skin: Skin is warm and dry. Psychiatric: Affect and judgment normal. Nursing note and vitals reviewed. ASSESSMENT/PLAN: 1. Sore throat - ICD9: 462, ICD10: J02.9 - Rapid Strep negative in the office today and Throat culture pending - Discussed supportive care treatment with fluids, rest and analgesia. - The patient should follow up in one week if symptoms persist or worsen - Call back if drooling, increased temperature, symptoms of dehydration and/or still sick in one week - RAPID STREP TEST B/O - GROUP A STREPTOCOCCUS BY PCR Lisa Tinoco PA-C CNOV Observed: 08/23/2017 Status: COMPLETED Source: [place] 9:45 AM [facility] REPOSITORY Office Visit (WSTR) CHRISTOPHER HOBSON ([id number]) 1960 F CHT Date Time Provider Department 08/23/17 9:45 AM LISA TINOCO) [facility] During your visit today, we recorded the following information about you: Temperature Pulse Respiration Blood pressure 97.3 degrees 74/minute 16/minute 130/80 Weight 95.5 kg Lisa Tinoco PA-C 08/23/2017 11:40 AM Addendum Subjective HPI Pt presents with a sore throat and congestion for 2 days. Her has similar symptoms. No fever or chills. Slight cough. No CP or SOB. She had her trach removed 2-3 months ago per the patient and it is healing up. No fever. No nvd. Review of Systems Constitutional: Negative. HENT: Positive for congestion and sore throat. Eyes: Negative. Respiratory: Positive for cough. Negative for sputum production, shortness of breath and wheezing. Cardiovascular: Negative. Gastrointestinal: Negative. Genitourinary: Negative. Musculoskeletal: Negative. Skin: Negative. All other systems reviewed and are negative. 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 - Unspecified migraine 1998 Current Outpatient Prescriptions: hydrocortisone 2.5 % cream Apply 1 application to affected area twice daily as needed. Location: neck (reaction to tape adhesive) May also use for poison tania. Disp: 28 g Rfl: 0 triamcinolone acetonide (KENALOG) 0.1 % cream Apply 1 application to affected area twice daily. Apply to affected area. Location: arms Disp: 30 g Rfl: 0 atorvastatin (LIPITOR) 40 mg tablet Take 1 tablet by mouth once daily. Disp: 30 tablet Rfl: 11 blood sugar diagnostic (FREESTYLE INSULINX) test strip Test blood sugar(s) 4 times daily and as needed. Dx: Type 2 DM - Uncontrolled E11.65 Insulin: Yes Disp: 150 Strip Rfl: 11 insulin needles, DISPOSABLE, (PEN NEEDLE) 31 gauge x 5/16 ndle Use one needle per dose (Lantus and Humalog). 5 per day. Disp: 150 Each Rfl: 11 omeprazole (PRILOSEC) 20 mg capsule Take 1 capsule by mouth daily before breakfast. 1/2 hr before meal. Disp: 90 capsule Rfl: 3 Adhesive Tape (DURAPORE SURGICAL) 2 X 10 -yard tape Use for dressings for healing tracheostomy site. Disp: 1 Each Rfl: 1 metroNIDAZOLE (FLAGYL) 500 mg tablet Take 1 tablet by mouth three times daily. Disp: 30 tablet Rfl: 0 DULoxetine (CYMBALTA) 60 mg capsule Take 1 capsule by mouth once daily. Disp: Rfl: meloxicam (MOBIC) 7.5 mg tablet TAKE ONE TABLET BY MOUTH EVERY DAY ON a full stomach Disp: Rfl: 0 guaiFENesin (MUCINEX) 600 mg 12 hr tablet Take 1 tablet by mouth twice daily. Disp: 60 tablet Rfl: 5 doxycycline monohydrate (MONODOX) 100 mg capsule Take 1 capsule by mouth twice daily. Disp: 20 capsule Rfl: 0 Benzonatate (TESSALON) 200 mg capsule Take 1 capsule by mouth twice daily as needed for Cough. Disp: 30 capsule Rfl: 0 cetirizine (ZYRTEC) 10 mg tablet Take 1 tablet by mouth once daily. Disp: 30 tablet Rfl: 0 fluticasone (FLONASE) 50 mcg/actuation nasal spray Use 2 Sprays in each nostril once daily. Rinse mouth after use. Disp: 1 Bottle Rfl: 1 COMPOUNDED PRESCRIPTION Stoma check by [facility] (Z93.2) Ileostomy in place (HCC) Disp: 1 Each Rfl: 0 miconazole (CADENCE ANTIFUNGAL) 2 % cream Apply 1 application to affected area twice daily. To perirectal and buttocks area Disp: 92 g Rfl: 2 blood sugar diagnostic (BLOOD GLUCOSE TEST) test strip Test blood sugar(s) 4 times daily and as needed as directed. Dx: Type 2 DM - Uncontrolled E11.65 Insulin: Yes Disp: 150 Strip Rfl: 11 Lancets lancets Test blood sugar(s) 4 times daily as directed. Dx: Type 2 DM - Uncontrolled E11.65 Insulin: Yes Disp: 100 Each Rfl: 11 alcohol swabs (SURE-PREP ALCHOLOL PREP PADS) padm Test blood sugars 4 x's daily. Dx: E11.65 Insulin: Yes Disp: 200 Each Rfl: 11 glimepiride (AMARYL) 2 mg tablet Take 2 tablets by mouth daily with breakfast. Disp: 60 tablet Rfl: 11 traZODone (DESYREL) 100 mg tablet Take 3 tablets by mouth daily at bedtime. ([facility]) Disp: Rfl: Magnesium Chloride (SLOW-MAG) 71.5 mg TbEC Take 1 tablet by mouth once daily. Disp: Rfl: insulin glargine (LANTUS SOLOSTAR) 100 unit/mL (3 mL) inpn Inject 17 Units subcutaneously daily at bedtime. (patient instructed to increase dose, but as of October 17, 2016, had not yet increased) Disp: Rfl: 0 topiramate (TOPAMAX) 100 mg tablet Take 1 tablet by mouth once daily. Per psychiatrist Disp: Rfl: BUTRANS 15 mcg/hour ptwk Apply 1 Patch as directed every Monday. Per Dr. Trevizo Disp: Rfl: 0 melatonin 3 mg Take 2 tablets by mouth daily at bedtime. Disp: Rfl: 0 thiothixene (NAVANE) 2 mg capsule Take 1 capsule by mouth daily at bedtime. Per psychiatryLorene NP Disp: Rfl: ipratropium-albuterol (DUONEB) 0.5 mg-3 mg(2.5 mg base)/3 mL nebu Inhale 3 mL as instructed four times daily as needed (wheezing). Use over 5-15minutes per nebulizer. Disp: 120 Vial Rfl: 11 COMPOUNDED PRESCRIPTION Home pulse ox J96.11 Disp: 1 Each Rfl: 0 budesonide-formoterol (SYMBICORT) 160-4.5 mcg/actuation inhaler Inhale 2 Puffs as instructed twice daily. Disp: 1 Inhaler Rfl: 5 COMPOUNDED PRESCRIPTION Abdominal binder for ventral hernia K43.9 Disp: 1 Each Rfl: 0 VRAYLAR 3 mg cap Take 3 mg by mouth daily at bedtime. Disp: Rfl: white petrolatum-mineral oil (EUCERIN) cream Apply 1 application to affected area as needed for Dry Skin (all dry skin areas). Disp: 120 g Rfl: 1 COMPOUNDED PRESCRIPTION Bed childs (R26.2) Difficulty ambulating due to knee Disp: 1 Device Rfl: 0 COMPOUNDED PRESCRIPTION Wheel chair (R26.2) Difficulty ambulating due to knee Disp: 1 Device Rfl: 0 COMPOUNDED PRESCRIPTION Please perform nocturnal oximetry on 5 lpm O2 via trach mask. Please fax results to [phone]. DX: Chronic hypoxemic respiratory failure, J96.11. Disp: 1 Each Rfl: 0 triamcinolone acetonide (KENALOG) 0.1 % cream Apply 1 application to affected area three times daily. Apply sparingly to area for rash/itching till rash resolves. For contact dermatitis Disp: 15 g Rfl: 1 sodium chloride (SALINE MIST) 0.65 % nasal spray Use 1 [place] in the nose as needed for Cold/Allergy Symptoms. Dispense 1 bottle (not 1 ml) Disp: 1 mL Rfl: 11 COMPOUNDED PRESCRIPTION ADHESIVE REMOVER FOR COLOSTOMY BAG REMOVAL DX Z93.3 Disp: 100 Box Rfl: 12 COMPOUNDED PRESCRIPTION Back to previous mode of oxygen (LOX) 2L daytime, 3L at night. Disp: 1 Device Rfl: 0 Lubricants (K-Y LUBRICATING) gel Apply 1 application to affected area as needed (Use as needed for Tracheostomy changes). Disp: 1 Tube Rfl: 11 amantadine HCl (SYMMETREL) 100 mg capsule Take 2 capsules by mouth twice daily. (Dr. Dupree) Disp: Rfl: COMPOUNDED PRESCRIPTION Hand held shower. Needs to sit while showering and use hand held shower. (R53.81) Physical deconditioning; (R26.89) Difficulty balancing when reaching Disp: 1 Each Rfl: 0 benzonatate (TESSALON PERLES) 100 mg capsule Take 2 capsules by mouth three times daily as needed. Disp: 30 capsule Rfl: 0 No current facility-administered medications for this visit. PAST SURGICAL HISTORY Procedure Laterality Date - ANESTH,VAGINAL DELIVERY 1977,1979,1985, 1986 w/ episiotomies - APPENDECTOMY - DANDC, DIAG AND/OR THERAPEUTIC 1977 Dilation AND curettage - INDUCED ABORTN BY GARCIA - LIGATE FALLOPIAN TUBE Tubal ligation - PAST SURGICAL HISTORY OF 2004 Abdominal surgeries for hernia repairs - PAST SURGICAL HISTORY OF 2008 Ileostomy - PAST SURGICAL HISTORY OF 09/12/2016 Underwent ex lap, takedown of prior ostomy, RONEY and creation of new end ileostomy on 09/12/16 for parastomal hernia with closed loop hernia - PAST SURGICAL HISTORY OF 09/28/2016 Permanent Pacemaker Placement for complete heart block - REDUCE BOWEL OBSTRUCTION Late February 2015 acute bowel obstruction. SB resection. - REMOVAL OF TONSILS,10+ Y/O - REVISE MEDIAN N/CARPAL TUNNEL SURG 2006 Carpal tunnel decomp right - REVISE MEDIAN N/CARPAL TUNNEL SURG Carpal tunnel decomp left - REVISION OF COLOSTOMY,COMPLICATED 2000 3-4 surgeries - TRACHEOSTOMY HX 03/12/2015 protracted critical stay, failure to wean after bowel obtruction FAMILY HISTORY Problem Relation Age of Onset - Pneumonia [OTHER] Mother - Heart Father - Thyroid Daughter - Thyroid Daughter Social History Substance Use Topics - Smoking status: Former Smoker Packs/day: 2.00 Years: 45.00 Types: Cigarettes Start date: 1965 Quit date: 08/27/2010 - Smokeless tobacco: Never Used - Alcohol use No BP 130/80 Pulse 74 Temp 36.3 ?C (97.3 ?F) (Tympanic) Resp 16 Wt 95.5 kg (210 lb 9.6 oz) BMI 38.52 kg/m? Pulse ox 96% Objective Physical Exam Constitutional: She is oriented to person, place, and time and well-developed, well-nourished, and in no distress. HENT: Head: Normocephalic and atraumatic. Right Ear: Tympanic membrane, external ear and ear canal normal. Left Ear: Tympanic membrane, external ear and ear canal normal. Nose: Rhinorrhea present. Mouth/Throat: Uvula is midline and mucous membranes are normal. No oropharyngeal exudate, posterior oropharyngeal edema, posterior oropharyngeal erythema or tonsillar abscesses. Eyes: Conjunctivae are normal. Neck: Normal range of motion. Neck supple. Cardiovascular: Normal rate, regular rhythm and normal heart sounds. Pulmonary/Chest: Effort normal and breath sounds normal. Neurological: She is alert and oriented to person, place, and time. Skin: Skin is warm and dry. Psychiatric: Affect and judgment normal. Nursing note and vitals reviewed. ASSESSMENT/PLAN: 1. Sore throat - ICD9: 462, ICD10: J02.9 - Rapid Strep negative in the office today and Throat culture pending - Discussed supportive care treatment with fluids, rest and analgesia. - The patient should follow up in one week if symptoms persist or worsen - Call back if drooling, increased temperature, symptoms of dehydration and/or still sick in one week - RAPID STREP TEST B/O - GROUP A STREPTOCOCCUS BY PCR Lisa Tinoco PA-C Referring Provider: SELF [200] Allergies As of Date: 08/23/2017 Noted Allergy Reaction CEPHALOSPORINS 04/03/2003 Comments: itching Cherries [Other] 04/03/2003 Comments: angioedema and tongue blisters CIPROFLOXACIN 09/11/2016 10 - Anaphylaxis Comments: It was used with flagyl at the same time so uknown which is the cause CODEINE 04/03/2003 Comments: rash swelling DICLOFENAC 08/28/2003 Comments: rash DILAUDID (HYDROMORPHONE (BULK)) 06/10/2015 9 - Itching FLAGYL (METRONIDAZOLE HCL) 09/11/2016 10 - Anaphylaxis Comments: It was used with flagyl at the same time so uknown which is the cause Philomena [Other] 04/03/2003 Comments: angioedematous tongue and blisters LYRICA (PREGABALIN) 07/04/2017 7 - Swelling OPIOIDS - MORPHINE ANALOGUES 08/28/2003 Comments: rash Pears [Other] 10/09/2003 PENICILLINS 04/03/2003 10 - Anaphylaxis Comments: ?anaphylaxis, patient tolerates zosyn PERCOCET (OXYCODONE-ACETAMINOPHEN)08/13/2004 9 - Itching SOAP 05/30/2006 VICODIN (HYDROCODONE-ACETAMINOPHE*05/21/2009 2 - Rash ZITHROMAX (AZITHROMYCIN) 03/24/2016 2 - Rash Date Reviewed: 08/23/2017 Reviewed by: Zenaida Donnelly Ma - Fully Assessed Reason for Visit: Sore Throat [200] Primary Visit Diagnosis:Sore throat [J02.9] Order(s):RAPID STREP TEST B/O [[id number]] Order #: [id number] GROUP A STREPTOCOCCUS BY PCR [SQGASPCR] Order #: [id number] benzonatate (TESSALON PERLES) 100 mg capsuleTake 2 capsules by mouth three times daily as needed.Disp: 30 capsuleRfl: 0 Prescriptions as of 08/23/2017 Sig: HYDROCORTISONE 2.5 % TOPICAL * Apply 1 application to affect* TRIAMCINOLONE ACETONIDE 0.1 %* Apply 1 application to affect* ATORVASTATIN 40 MG TABLET Take 1 tablet by mouth once d* BLOOD SUGAR DIAGNOSTIC STRIPS Test blood sugar(s) 4 times d* PEN NEEDLE, DIABETIC 31 GAUGE* Use one needle per dose (Lant* OMEPRAZOLE 20 MG CAPSULE,DARREN* Take 1 capsule by mouth daily* ADHESIVE TAPE 2 X 10 YARD Use for dressings for healing* METRONIDAZOLE 500 MG TABLET Take 1 tablet by mouth three * DULOXETINE 60 MG CAPSULE,DARREN* Take 1 capsule by mouth once * MELOXICAM 7.5 MG TABLET TAKE ONE TABLET BY MOUTH EVER* GUAIFENESIN ER 600 MG TABLET,* Take 1 tablet by mouth twice * DOXYCYCLINE MONOHYDRATE 100 M* Take 1 capsule by mouth twice* BENZONATATE 200 MG CAPSULE Take 1 capsule by mouth twice* CETIRIZINE 10 MG TABLET Take 1 tablet by mouth once d* FLUTICASONE 50 MCG/ACTUATION * Use 2 Sprays in each nostril * COMPOUNDED PRESCRIPTION Stoma check by [facility] (Z93.2) * MICONAZOLE NITRATE 2 % TOPICA* Apply 1 application to affect* BLOOD SUGAR DIAGNOSTIC STRIPS Test blood sugar(s) 4 times d* LANCETS Test blood sugar(s) 4 times d* ALCOHOL SWABS Test blood sugars 4 x's daily* GLIMEPIRIDE 2 MG TABLET Take 2 tablets by mouth daily* TRAZODONE 100 MG TABLET Take 3 tablets by mouth daily* MAGNESIUM 71.5 MG (MAGNESIUM * Take 1 tablet by mouth once d* INSULIN GLARGINE (U-100) 100 * Inject 17 Units subcutaneousl* TOPIRAMATE 100 MG TABLET Take 1 tablet by mouth once d* BUTRANS 15 MCG/HOUR TRANSDERM* Apply 1 Patch as directed daniela* MELATONIN 3 MG TABLET Take 2 tablets by mouth daily* THIOTHIXENE 2 MG CAPSULE Take 1 capsule by mouth daily* IPRATROPIUM-ALBUTEROL 0.5 MG-* Inhale 3 mL as instructed fou* COMPOUNDED PRESCRIPTION Home pulse ox J96.11 BUDESONIDE-FORMOTEROL HFA 160* Inhale 2 Puffs as instructed * COMPOUNDED PRESCRIPTION Abdominal binder for ventral * VRAYLAR 3 MG CAPSULE Take 3 mg by mouth daily at b* WHITE PETROLATUM-MINERAL OIL * Apply 1 application to affect* COMPOUNDED PRESCRIPTION Bed childs (R26.2) Difficulty * COMPOUNDED PRESCRIPTION Wheel chair (R26.2) Difficul* COMPOUNDED PRESCRIPTION Please perform nocturnal oxim* TRIAMCINOLONE ACETONIDE 0.1 %* Apply 1 application to affect* SODIUM CHLORIDE 0.65 % NASAL * Use 1 [place] in the nose as ne* COMPOUNDED PRESCRIPTION ADHESIVE REMOVER FOR COLOSTOM* COMPOUNDED PRESCRIPTION Back to previous mode of oxyg* LUBRICANTS TOPICAL GEL Apply 1 application to affect* AMANTADINE HCL 100 MG CAPSULE Take 2 capsules by mouth twic* COMPOUNDED PRESCRIPTION Hand held shower. Needs to s* BENZONATATE 100 MG CAPSULE Take 2 capsules by mouth thre* Problem List As Of Date 08/23/2017 Noted Resolved DEPRESSIVE DISORDER NEC(aka DEPRESSION) [F32.9] INVALID FOR* SCHIZOPHRENIA NEC [295.8] INVALID FOR* More... MALIGNANT NEOPLASM COLON NOS(aka COLON) [C18.9] INVALID FOR* More... More... PEPTIC ULCER NOS [K27.9] INVALID FOR* Tobacco use disorder [F17.200] INVALID FOR*11/18/2011 More... Routine general medical examination at a health*INVALID FOR*02/25/2013 More... MACULAR DEGENERATION NOS [H35.30] INVALID FOR* More... Diabetes mellitus type 2, uncontrolled, without*INVALID FOR* Priority: G More... Class 2 obesity due to excess calories with bod*INVALID FOR*11/08/2016 Priority: H More... HEMATURIA NOS [R31.9] INVALID FOR* More... Hyperlipidemia [E78.5] INVALID FOR* More... HEADACHE [R51] INVALID FOR* Sleep Apnea [G47.30] INVALID FOR* More... Asthma [J45.909] Priority: D More... DM w/o complication type II [E11.9] INVALID FOR* Pain in soft tissues of limb [M79.609] INVALID FOR* Dermatophytosis of nail [B35.1] INVALID FOR* Ventral hernia [K43.9] INVALID FOR* Lunate fracture, closed [S62.123A] INVALID FOR* Acute postoperative respiratory insufficiency [*INVALID FOR*07/19/2016 Priority: C More... Bowel obstruction (HCC) [K56.609] INVALID FOR* Priority: A More... Electrolyte and fluid disorder [E87.8] INVALID FOR*03/03/2015 Priority: I More... Post-op pain [G89.18] INVALID FOR* Priority: G More... Postoperative anemia due to acute blood loss [D*INVALID FOR* Priority: F More... H/O schizophrenia [Z86.59] INVALID FOR* Priority: E More... Hypotension [I95.9] INVALID FOR* Priority: E More... Fever [R50.9] INVALID FOR* Priority: F More... Septic shock due to Escherichia coli (HCC) [A41*INVALID FOR*07/19/2016 Priority: B More... Altered mental status [R41.82] INVALID FOR*12/09/2015 Priority: D More... Hyperbilirubinemia [E80.6] INVALID FOR*03/08/2015 More... Hypernatremia [E87.0] INVALID FOR*03/14/2015 Priority: K More... Skin lesion [L98.9] INVALID FOR* Priority: I More... Mild protein-calorie malnutrition (HCC) [E44.1] INVALID FOR* Priority: K More... Electrolyte imbalance [E87.8] INVALID FOR*07/19/2016 Priority: J More... Physical deconditioning [R53.81] INVALID FOR* Priority: L More... Metabolic acidosis [E87.2] INVALID FOR*03/19/2015 Encephalopathy in sepsis [G93.41] INVALID FOR* More... Acute kidney injury (HCC) [N17.9] INVALID FOR*03/19/2015 More... Small intestinal anastomotic leak [K91.89] INVALID FOR* More... Hypernatremia [E87.0] INVALID FOR*03/19/2015 More... Fistula [L98.8] INVALID FOR* On total parenteral nutrition (TPN) [Z78.9] INVALID FOR* Scruggs catheter dysfunction (HCC) [T82.514A] INVALID FOR* Tracheostomy care (HCC) [Z43.0] INVALID FOR* Magnesium deficiency [E61.2] INVALID FOR* Tracheostomy present (HCC) [Z93.0] INVALID FOR*07/24/2017 Hypomagnesemia [E83.42] INVALID FOR* Hematoma [T14.8XXA] INVALID FOR* SBO (small bowel obstruction) (HCC) [K56.609] INVALID FOR* Ventral hernia with bowel obstruction [K43.6] INVALID FOR* More... 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 Encounter Status:Closed by LISA TINOCO PA-C on 08/23/17 PING Observed: 08/23/2017 Status: COMPLETED Source: [place] 12:00 AM [facility] REPOSITORY Telephone ([place]) JOCECHRISTOPHER DE LA CRUZ ([id number]) 1960 F [facility] Date Time Provider Department 08/23/17 QUIANA ADAME (PA) During your visit today, we recorded the following information about you: Mirna Moreno [facility] 08/23/2017 10:54 AM Signed Pt has a horrible sore throat, bringing up green stuff. Would like something prescribed for sore throat. Can be reached at: [phone] Mirna Moreno [facility] [place] 08/23/2017 11:42 AM Signed Pt called back asking if someone tried to reach them, they missed the call. He is very anxious to get some relief for her sore throat. They can be reached at: [phone] Quiana Adame PA-C 08/23/2017 1:53 PM Signed Patient seen by local [facility] earlier today. Strep test was negative. They were attempting to contact patient but no answer and no room on VM. Recommendations for care were dispensed and other provider is will to give something for cough as well. [place] Garcia [facility] 08/24/2017 8:14 AM Signed Pt called again for something for her throat. I told her that Quiana will call them later today. No message can be left, their box is full and they don't know how to empty it. She would a call back on her cell: [phone]. Quiana Adame PA-C 08/24/2017 12:33 PM Addendum Called both numbers as left in encounters below multiple times. The first has a VM that is full, the second has a VM that has not been set up yet. Called again with success. Pt diagnosed per Lambert with virus. She and her are feeling ill (he has fever, chills, aches, pains, cough while she has sore throat, rapid strep was neg) Would recommend saline rinse for sore throat. May use OTC numbing spray or lozenges. May take OTC NSAID. Pt and state she has green discharge from trach stoma that has not yet closed. Doxycycline x 10 day e-scripted and recommendation to see local surgeon for closure of tracheostomy stoma. [place] [facility] 2[facility]13 PM Signed called back about Christopher's symptoms. Hard time coughing up the phlegm Allergies As of Date: 08/23/2017 Noted Allergy Reaction CEPHALOSPORINS 04/03/2003 Comments: itching Cherries [Other] 04/03/2003 Comments: angioedema and tongue blisters CIPROFLOXACIN 09/11/2016 10 - Anaphylaxis Comments: It was used with flagyl at the same time so uknown which is the cause CODEINE 04/03/2003 Comments: rash swelling DICLOFENAC 08/28/2003 Comments: rash DILAUDID (HYDROMORPHONE (BULK)) 06/10/2015 9 - Itching FLAGYL (METRONIDAZOLE HCL) 09/11/2016 10 - Anaphylaxis Comments: It was used with flagyl at the same time so uknown which is the cause Philomena [Other] 04/03/2003 Comments: angioedematous tongue and blisters LYRICA (PREGABALIN) 07/04/2017 7 - Swelling OPIOIDS - MORPHINE ANALOGUES 08/28/2003 Comments: rash Pears [Other] 10/09/2003 PENICILLINS 04/03/2003 10 - Anaphylaxis Comments: ?anaphylaxis, patient tolerates zosyn PERCOCET (OXYCODONE-ACETAMINOPHEN)08/13/2004 9 - Itching SOAP 05/30/2006 VICODIN (HYDROCODONE-ACETAMINOPHE*05/21/2009 2 - Rash ZITHROMAX (AZITHROMYCIN) 03/24/2016 2 - Rash Date Reviewed: 08/23/2017 Reviewed by: Zenaida Donnelly Ma - Fully Assessed Reason for Visit: Cough [28] Order(s):[] doxycycline (VIBRA-TABS) 100 mg tabletTake 1 tablet by mouth twice daily for 10 days.Disp: 20 tabletRfl: 0 Prescriptions as of 08/23/2017 Sig: DOXYCYCLINE HYCLATE 100 MG TA* Take 1 tablet by mouth twice * BENZONATATE 100 MG CAPSULE Take 2 capsules by mouth thre* HYDROCORTISONE 2.5 % TOPICAL * Apply 1 application to affect* TRIAMCINOLONE ACETONIDE 0.1 %* Apply 1 application to affect* ATORVASTATIN 40 MG TABLET Take 1 tablet by mouth once d* BLOOD SUGAR DIAGNOSTIC STRIPS Test blood sugar(s) 4 times d* PEN NEEDLE, DIABETIC 31 GAUGE* Use one needle per dose (Lant* OMEPRAZOLE 20 MG CAPSULE,DARREN* Take 1 capsule by mouth daily* ADHESIVE TAPE 2 X 10 YARD Use for dressings for healing* METRONIDAZOLE 500 MG TABLET Take 1 tablet by mouth three * DULOXETINE 60 MG CAPSULE,DARREN* Take 1 capsule by mouth once * MELOXICAM 7.5 MG TABLET TAKE ONE TABLET BY MOUTH EVER* GUAIFENESIN ER 600 MG TABLET,* Take 1 tablet by mouth twice * DOXYCYCLINE MONOHYDRATE 100 M* Take 1 capsule by mouth twice* BENZONATATE 200 MG CAPSULE Take 1 capsule by mouth twice* CETIRIZINE 10 MG TABLET Take 1 tablet by mouth once d* FLUTICASONE 50 MCG/ACTUATION * Use 2 Sprays in each nostril * COMPOUNDED PRESCRIPTION Stoma check by [facility] (Z93.2) * MICONAZOLE NITRATE 2 % TOPICA* Apply 1 application to affect* BLOOD SUGAR DIAGNOSTIC STRIPS Test blood sugar(s) 4 times d* LANCETS Test blood sugar(s) 4 times d* ALCOHOL SWABS Test blood sugars 4 x's daily* GLIMEPIRIDE 2 MG TABLET Take 2 tablets by mouth daily* TRAZODONE 100 MG TABLET Take 3 tablets by mouth daily* MAGNESIUM 71.5 MG (MAGNESIUM * Take 1 tablet by mouth once d* INSULIN GLARGINE (U-100) 100 * Inject 17 Units subcutaneousl* TOPIRAMATE 100 MG TABLET Take 1 tablet by mouth once d* BUTRANS 15 MCG/HOUR TRANSDERM* Apply 1 Patch as directed daniela* MELATONIN 3 MG TABLET Take 2 tablets by mouth daily* THIOTHIXENE 2 MG CAPSULE Take 1 capsule by mouth daily* IPRATROPIUM-ALBUTEROL 0.5 MG-* Inhale 3 mL as instructed fou* COMPOUNDED PRESCRIPTION Home pulse ox J96.11 BUDESONIDE-FORMOTEROL HFA 160* Inhale 2 Puffs as instructed * COMPOUNDED PRESCRIPTION Abdominal binder for ventral * VRAYLAR 3 MG CAPSULE Take 3 mg by mouth daily at b* WHITE PETROLATUM-MINERAL OIL * Apply 1 application to affect* COMPOUNDED PRESCRIPTION Bed childs (R26.2) Difficulty * COMPOUNDED PRESCRIPTION Wheel chair (R26.2) Difficul* COMPOUNDED PRESCRIPTION Please perform nocturnal oxim* TRIAMCINOLONE ACETONIDE 0.1 %* Apply 1 application to affect* SODIUM CHLORIDE 0.65 % NASAL * Use 1 [place] in the nose as ne* COMPOUNDED PRESCRIPTION ADHESIVE REMOVER FOR COLOSTOM* COMPOUNDED PRESCRIPTION Back to previous mode of oxyg* LUBRICANTS TOPICAL GEL Apply 1 application to affect* AMANTADINE HCL 100 MG CAPSULE Take 2 capsules by mouth twic* COMPOUNDED PRESCRIPTION Hand held shower. Needs to s* Problem List As Of Date 08/23/2017 Noted Resolved DEPRESSIVE DISORDER NEC(aka DEPRESSION) [F32.9] INVALID FOR* SCHIZOPHRENIA NEC [295.8] INVALID FOR* More... MALIGNANT NEOPLASM COLON NOS(aka COLON) [C18.9] INVALID FOR* More... More... PEPTIC ULCER NOS [K27.9] INVALID FOR* Tobacco use disorder [F17.200] INVALID FOR*11/18/2011 More... Routine general medical examination at a health*INVALID FOR*02/25/2013 More... MACULAR DEGENERATION NOS [H35.30] INVALID FOR* More... Diabetes mellitus type 2, uncontrolled, without*INVALID FOR* Priority: G More... Class 2 obesity due to excess calories with bod*INVALID FOR*11/08/2016 Priority: H More... HEMATURIA NOS [R31.9] INVALID FOR* More... Hyperlipidemia [E78.5] INVALID FOR* More... HEADACHE [R51] INVALID FOR* Sleep Apnea [G47.30] INVALID FOR* More... Asthma [J45.909] Priority: D More... DM w/o complication type II [E11.9] INVALID FOR* Pain in soft tissues of limb [M79.609] INVALID FOR* Dermatophytosis of nail [B35.1] INVALID FOR* Ventral hernia [K43.9] INVALID FOR* Lunate fracture, closed [S62.123A] INVALID FOR* Acute postoperative respiratory insufficiency [*INVALID FOR*07/19/2016 Priority: C More... Bowel obstruction (HCC) [K56.609] INVALID FOR* Priority: A More... Electrolyte and fluid disorder [E87.8] INVALID FOR*03/03/2015 Priority: I More... Post-op pain [G89.18] INVALID FOR* Priority: G More... Postoperative anemia due to acute blood loss [D*INVALID FOR* Priority: F More... H/O schizophrenia [Z86.59] INVALID FOR* Priority: E More... Hypotension [I95.9] INVALID FOR* Priority: E More... Fever [R50.9] INVALID FOR* Priority: F More... Septic shock due to Escherichia coli (HCC) [A41*INVALID FOR*07/19/2016 Priority: B More... Altered mental status [R41.82] INVALID FOR*12/09/2015 Priority: D More... Hyperbilirubinemia [E80.6] INVALID FOR*03/08/2015 More... Hypernatremia [E87.0] INVALID FOR*03/14/2015 Priority: K More... Skin lesion [L98.9] INVALID FOR* Priority: I More... Mild protein-calorie malnutrition (HCC) [E44.1] INVALID FOR* Priority: K More... Electrolyte imbalance [E87.8] INVALID FOR*07/19/2016 Priority: J More... Physical deconditioning [R53.81] INVALID FOR* Priority: L More... Metabolic acidosis [E87.2] INVALID FOR*03/19/2015 Encephalopathy in sepsis [G93.41] INVALID FOR* More... Acute kidney injury (HCC) [N17.9] INVALID FOR*03/19/2015 More... Small intestinal anastomotic leak [K91.89] INVALID FOR* More... Hypernatremia [E87.0] INVALID FOR*03/19/2015 More... Fistula [L98.8] INVALID FOR* On total parenteral nutrition (TPN) [Z78.9] INVALID FOR* Scruggs catheter dysfunction (HCC) [T82.514A] INVALID FOR* Tracheostomy care (HCC) [Z43.0] INVALID FOR* Magnesium deficiency [E61.2] INVALID FOR* Tracheostomy present (HCC) [Z93.0] INVALID FOR*07/24/2017 Hypomagnesemia [E83.42] INVALID FOR* Hematoma [T14.8XXA] INVALID FOR* SBO (small bowel obstruction) (HCC) [K56.609] INVALID FOR* Ventral hernia with bowel obstruction [K43.6] INVALID FOR* More... 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 Encounter Status:Closed by QUIANA ADAME PA-C on 08/24/17 PROGRESS Observed: 08/15/2017 Status: COMPLETED Source: [place] 5:41 PM [facility] REPOSITORY O ID: [id number] Author: Lisa Tinoco (Pa) Service: (none) Author Type: Physician Hay Rake Operator Type: Progress Notes Filed: 08/15/2017 5:44 PM Note Text: Subjective HPI Pt presents with a rash for 3-4 days. Her is here for poison tania and she thinks she has it as well. No fever or chills. No new soaps or detergents. She has been picking and scratching at the pool on her arms. Review of Systems Skin: Positive for itching and rash. All other systems reviewed and are negative. PAST MEDICAL HISTORY Diagnosis Date - Acute peptic ulcer, unspecified site, without mention of hemorrhage, perforation, or obstruction 1999 - Asthma - Bowel disease Colon polyps - Chronic obstructive pulmonary disease (COPD) (HCC) - Diabetes (HCC) 1999 On insulin 2015 - Dyslipidemia - Lunate fracture, closed 11/22/2012 - Other specified disorders of pancreatic internal secretion 04/1999 Diabetes on metformin - Paranoid schizophrenia, chronic condition ([facility]) 1985 - Personal history of colonic polyps 2000 - S/P colostomy ([facility]) - Tracheostomy in place ([facility]) Placed 2015 after prolonged respiratory failure, unable to liberate from vent. - Unspecified migraine 1998 Current Outpatient Prescriptions: atorvastatin (LIPITOR) 40 mg tablet Take 1 tablet by mouth once daily. Disp: 30 tablet Rfl: 11 blood sugar diagnostic (FREESTYLE INSULINX) test strip Test blood sugar(s) 4 times daily and as needed. Dx: Type 2 DM - Uncontrolled E11.65 Insulin: Yes Disp: 150 Strip Rfl: 11 insulin needles, DISPOSABLE, (PEN NEEDLE) 31 gauge x 5/16 ndle Use one needle per dose (Lantus and Humalog). 5 per day. Disp: 150 Each Rfl: 11 Adhesive Tape (DURAPORE SURGICAL) 2 X 10 -yard tape Use for dressings for healing tracheostomy site. Disp: 1 Each Rfl: 1 metroNIDAZOLE (FLAGYL) 500 mg tablet Take 1 tablet by mouth three times daily. Disp: 30 tablet Rfl: 0 DULoxetine (CYMBALTA) 60 mg capsule Take 1 capsule by mouth once daily. Disp: Rfl: meloxicam (MOBIC) 7.5 mg tablet TAKE ONE TABLET BY MOUTH EVERY DAY ON a full stomach Disp: Rfl: 0 guaiFENesin (MUCINEX) 600 mg 12 hr tablet Take 1 tablet by mouth twice daily. Disp: 60 tablet Rfl: 5 COMPOUNDED PRESCRIPTION Stoma check by [facility] (Z93.2) Ileostomy in place ([facility]) Disp: 1 Each Rfl: 0 blood sugar diagnostic (BLOOD GLUCOSE TEST) test strip Test blood sugar(s) 4 times daily and as needed as directed. Dx: Type 2 DM - Uncontrolled E11.65 Insulin: Yes Disp: 150 Strip Rfl: 11 Lancets lancets Test blood sugar(s) 4 times daily as directed. Dx: Type 2 DM - Uncontrolled E11.65 Insulin: Yes Disp: 100 Each Rfl: 11 alcohol swabs (SURE-PREP ALCHOLOL PREP PADS) padm Test blood sugars 4 x's daily. Dx: E11.65 Insulin: Yes Disp: 200 Each Rfl: 11 glimepiride (AMARYL) 2 mg tablet Take 2 tablets by mouth daily with breakfast. Disp: 60 tablet Rfl: 11 Magnesium Chloride (SLOW-MAG) 71.5 mg TbEC Take 1 tablet by mouth once daily. Disp: Rfl: insulin glargine (LANTUS SOLOSTAR) 100 unit/mL (3 mL) inpn Inject 17 Units subcutaneously daily at bedtime. (patient instructed to increase dose, but as of October 17, 2016, had not yet increased) Disp: Rfl: 0 melatonin 3 mg Take 2 tablets by mouth daily at bedtime. Disp: Rfl: 0 ipratropium-albuterol (DUONEB) 0.5 mg-3 mg(2.5 mg base)/3 mL nebu Inhale 3 mL as instructed four times daily as needed (wheezing). Use over 5-15minutes per nebulizer. Disp: 120 Vial Rfl: 11 COMPOUNDED PRESCRIPTION Home pulse ox J96.11 Disp: 1 Each Rfl: 0 budesonide-formoterol (SYMBICORT) 160-4.5 mcg/actuation inhaler Inhale 2 Puffs as instructed twice daily. Disp: 1 Inhaler Rfl: 5 COMPOUNDED PRESCRIPTION Abdominal binder for ventral hernia K43.9 Disp: 1 Each Rfl: 0 VRAYLAR 3 mg cap Take 3 mg by mouth daily at bedtime. Disp: Rfl: COMPOUNDED PRESCRIPTION Bed childs (R26.2) Difficulty ambulating due to knee Disp: 1 Device Rfl: 0 COMPOUNDED PRESCRIPTION Wheel chair (R26.2) Difficulty ambulating due to knee Disp: 1 Device Rfl: 0 COMPOUNDED PRESCRIPTION Please perform nocturnal oximetry on 5 lpm O2 via trach mask. Please fax results to [phone]. DX: Chronic hypoxemic respiratory failure, J96.11. Disp: 1 Each Rfl: 0 triamcinolone acetonide (KENALOG) 0.1 % cream Apply 1 application to affected area three times daily. Apply sparingly to area for rash/itching till rash resolves. For contact dermatitis Disp: 15 g Rfl: 1 COMPOUNDED PRESCRIPTION ADHESIVE REMOVER FOR COLOSTOMY BAG REMOVAL DX Z93.3 Disp: 100 Box Rfl: 12 COMPOUNDED PRESCRIPTION Back to previous mode of oxygen (LOX) 2L daytime, 3L at night. Disp: 1 Device Rfl: 0 Lubricants (K-Y LUBRICATING) gel Apply 1 application to affected area as needed (Use as needed for Tracheostomy changes). Disp: 1 Tube Rfl: 11 COMPOUNDED PRESCRIPTION Hand held shower. Needs to sit while showering and use hand held shower. (R53.81) Physical deconditioning; (R26.89) Difficulty balancing when reaching Disp: 1 Each Rfl: 0 hydrocortisone 2.5 % cream Apply 1 application to affected area twice daily as needed. Location: neck (reaction to tape adhesive) May also use for poison tania. (Patient not taking: Reported on 08/15/2017 ) Disp: 28 g Rfl: 0 triamcinolone acetonide (KENALOG) 0.1 % cream Apply 1 application to affected area twice daily. Apply to affected area. Location: arms Disp: 30 g Rfl: 0 omeprazole (PRILOSEC) 20 mg capsule Take 1 capsule by mouth daily before breakfast. 1/2 hr before meal. Disp: 90 capsule Rfl: 3 doxycycline monohydrate (MONODOX) 100 mg capsule Take 1 capsule by mouth twice daily. (Patient not taking: Reported on 08/15/2017 ) Disp: 20 capsule Rfl: 0 Benzonatate (TESSALON) 200 mg capsule Take 1 capsule by mouth twice daily as needed for Cough. (Patient not taking: Reported on 08/15/2017 ) Disp: 30 capsule Rfl: 0 cetirizine (ZYRTEC) 10 mg tablet Take 1 tablet by mouth once daily. (Patient not taking: Reported on 08/15/2017 ) Disp: 30 tablet Rfl: 0 fluticasone (FLONASE) 50 mcg/actuation nasal spray Use 2 Sprays in each nostril once daily. Rinse mouth after use. (Patient not taking: Reported on 08/15/2017 ) Disp: 1 Bottle Rfl: 1 miconazole (CADENCE ANTIFUNGAL) 2 % cream Apply 1 application to affected area twice daily. To perirectal and buttocks area (Patient not taking: Reported on 08/15/2017 ) Disp: 92 g Rfl: 2 traZODone (DESYREL) 100 mg tablet Take 3 tablets by mouth daily at bedtime. ([facility]) Disp: Rfl: topiramate (TOPAMAX) 100 mg tablet Take 1 tablet by mouth once daily. Per psychiatrist Disp: Rfl: BUTRANS 15 mcg/hour ptwk Apply 1 Patch as directed every Monday. Per Dr. Trevizo (Patient not taking: Reported on 08/15/2017 ) Disp: Rfl: 0 thiothixene (NAVANE) 2 mg capsule Take 1 capsule by mouth daily at bedtime. Per psychiatry, Lorene Dupree NP Disp: Rfl: white petrolatum-mineral oil (EUCERIN) cream Apply 1 application to affected area as needed for Dry Skin (all dry skin areas). (Patient not taking: Reported on 08/15/2017 ) Disp: 120 g Rfl: 1 sodium chloride (SALINE MIST) 0.65 % nasal spray Use 1 [place] in the nose as needed for Cold/Allergy Symptoms. Dispense 1 bottle (not 1 ml) Disp: 1 mL Rfl: 11 amantadine HCl (SYMMETREL) 100 mg capsule Take 2 capsules by mouth twice daily. (Dr. Dupree) Disp: Rfl: No current facility-administered medications for this visit. PAST SURGICAL HISTORY Procedure Laterality Date - ANESTH,VAGINAL DELIVERY 1977,1979,1985, 1986 w/ episiotomies - APPENDECTOMY - DANMARISA, DIAAntonette AND/OR THERAPEUTIC 1977 Dilation AND curettage - INDUCED ABORTN BY [facility] - LIGATE FALLOPIAN TUBE Tubal ligation - PAST SURGICAL HISTORY OF 2004 Abdominal surgeries for hernia repairs - PAST SURGICAL HISTORY OF 2008 Ileostomy - PAST SURGICAL HISTORY OF 09/12/2016 Underwent ex lap, takedown of prior ostomy, RONEY and creation of new end ileostomy on 09/12/16 for parastomal hernia with closed loop hernia - PAST SURGICAL HISTORY OF 09/28/2016 Permanent Pacemaker Placement for complete heart block - REDUCE BOWEL OBSTRUCTION Late February 2015 acute bowel obstruction. SB resection. - REMOVAL OF TONSILS,10+ Y/O - [facility] N/CARPAL TUNNEL SURG 2005 Carpal tunnel decomp right - [facility] N/CARPAL TUNNEL SURG Carpal tunnel decomp left - REVISION OF COLOSTOMY,COMPLICATED 2000 3-4 surgeries - TRACHEOSTOMY HX 03/12/2015 protracted critical stay, failure to wean after bowel obtruction FAMILY HISTORY Problem Relation Age of Onset - Pneumonia [OTHER] Mother - Heart Father - Thyroid Daughter - Thyroid Daughter Social History Substance Use Topics - Smoking status: Former Smoker Packs/day: 2.00 Years: 45.00 Types: Cigarettes Start date: 1965 Quit date: 08/27/2010 - Smokeless tobacco: Never Used - Alcohol use No BP 122/68 Pulse 88 Temp 36.5 ?C (97.7 ?F) (Tympanic) Resp 18 Wt 95.3 kg (210 lb) BMI 38.41 kg/m? Objective Physical Exam Constitutional: She is oriented to person, place, and time and well-developed, well-nourished, and in no distress. HENT: Head: Normocephalic and atraumatic. Cardiovascular: Normal rate and regular rhythm. Pulmonary/Chest: Effort normal and breath sounds normal. Neurological: She is alert and oriented to person, place, and time. Skin: Pt has a few small scattered scabs on her forearms. No vesicles or signs of infection. No petechiae or purpura. Nursing note and vitals reviewed. ASSESSMENT/PLAN: 1. Contact dermatitis, unspecified contact dermatitis type, unspecified trigger - ICD9: 692.9, ICD10: L25.9 - Topical steriod tx with triamcinolone - Anti itch therapy of Oral Benydryl recommended prn - discussed skin care of rash - follow up if symptoms persist or worsen. Lisa Tinoco PA-C CNOV Observed: 08/15/2017 Status: COMPLETED Source: [place] 5:00 PM [facility] REPOSITORY Office Visit ([facility]) CHRISTOPHER HOBSON ([id number]) 1960 F T Date Time Provider Department 08/15/17 5:00 PM LISA TINOCO) [facility] During your visit today, we recorded the following information about you: Temperature Pulse Respiration Blood pressure 97.7 degrees 88/minute 18/minute 122/68 Weight 95.3 kg Lisa Tinoco PA-C 08/15/2017 5:44 PM Signed Subjective HPI Pt presents with a rash for 3-4 days. Her is here for poison tania and she thinks she has it as well. No fever or chills. No new soaps or detergents. She has been picking and scratching at the pool on her arms. Review of Systems Skin: Positive for itching and rash. All other systems reviewed and are negative. 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 - Unspecified migraine 1998 Current Outpatient Prescriptions: atorvastatin (LIPITOR) 40 mg tablet Take 1 tablet by mouth once daily. Disp: 30 tablet Rfl: 11 blood sugar diagnostic (FREESTYLE INSULINX) test strip Test blood sugar(s) 4 times daily and as needed. Dx: Type 2 DM - Uncontrolled E11.65 Insulin: Yes Disp: 150 Strip Rfl: 11 insulin needles, DISPOSABLE, (PEN NEEDLE) 31 gauge x 5/16 ndle Use one needle per dose (Lantus and Humalog). 5 per day. Disp: 150 Each Rfl: 11 Adhesive Tape (DURAPORE SURGICAL) 2 X 10 -yard tape Use for dressings for healing tracheostomy site. Disp: 1 Each Rfl: 1 metroNIDAZOLE (FLAGYL) 500 mg tablet Take 1 tablet by mouth three times daily. Disp: 30 tablet Rfl: 0 DULoxetine (CYMBALTA) 60 mg capsule Take 1 capsule by mouth once daily. Disp: Rfl: meloxicam (MOBIC) 7.5 mg tablet TAKE ONE TABLET BY MOUTH EVERY DAY ON a full stomach Disp: Rfl: 0 guaiFENesin (MUCINEX) 600 mg 12 hr tablet Take 1 tablet by mouth twice daily. Disp: 60 tablet Rfl: 5 COMPOUNDED PRESCRIPTION Stoma check by [facility] (Z93.2) Ileostomy in place ([facility]) Disp: 1 Each Rfl: 0 blood sugar diagnostic (BLOOD GLUCOSE TEST) test strip Test blood sugar(s) 4 times daily and as needed as directed. Dx: Type 2 DM - Uncontrolled E11.65 Insulin: Yes Disp: 150 Strip Rfl: 11 Lancets lancets Test blood sugar(s) 4 times daily as directed. Dx: Type 2 DM - Uncontrolled E11.65 Insulin: Yes Disp: 100 Each Rfl: 11 alcohol swabs (SURE-PREP ALCHOLOL PREP PADS) padm Test blood sugars 4 x's daily. Dx: E11.65 Insulin: Yes Disp: 200 Each Rfl: 11 glimepiride (AMARYL) 2 mg tablet Take 2 tablets by mouth daily with breakfast. Disp: 60 tablet Rfl: 11 Magnesium Chloride (SLOW-MAG) 71.5 mg TbEC Take 1 tablet by mouth once daily. Disp: Rfl: insulin glargine (LANTUS SOLOSTAR) 100 unit/mL (3 mL) inpn Inject 17 Units subcutaneously daily at bedtime. (patient instructed to increase dose, but as of October 17, 2016, had not yet increased) Disp: Rfl: 0 melatonin 3 mg Take 2 tablets by mouth daily at bedtime. Disp: Rfl: 0 ipratropium-albuterol (DUONEB) 0.5 mg-3 mg(2.5 mg base)/3 mL nebu Inhale 3 mL as instructed four times daily as needed (wheezing). Use over 5-15minutes per nebulizer. Disp: 120 Vial Rfl: 11 COMPOUNDED PRESCRIPTION Home pulse ox J96.11 Disp: 1 Each Rfl: 0 budesonide-formoterol (SYMBICORT) 160-4.5 mcg/actuation inhaler Inhale 2 Puffs as instructed twice daily. Disp: 1 Inhaler Rfl: 5 COMPOUNDED PRESCRIPTION Abdominal binder for ventral hernia K43.9 Disp: 1 Each Rfl: 0 VRAYLAR 3 mg cap Take 3 mg by mouth daily at bedtime. Disp: Rfl: COMPOUNDED PRESCRIPTION Bed childs (R26.2) Difficulty ambulating due to knee Disp: 1 Device Rfl: 0 COMPOUNDED PRESCRIPTION Wheel chair (R26.2) Difficulty ambulating due to knee Disp: 1 Device Rfl: 0 COMPOUNDED PRESCRIPTION Please perform nocturnal oximetry on 5 lpm O2 via trach mask. Please fax results to [phone]. DX: Chronic hypoxemic respiratory failure, J96.11. Disp: 1 Each Rfl: 0 triamcinolone acetonide (KENALOG) 0.1 % cream Apply 1 application to affected area three times daily. Apply sparingly to area for rash/itching till rash resolves. For contact dermatitis Disp: 15 g Rfl: 1 COMPOUNDED PRESCRIPTION ADHESIVE REMOVER FOR COLOSTOMY BAG REMOVAL DX Z93.3 Disp: 100 Box Rfl: 12 COMPOUNDED PRESCRIPTION Back to previous mode of oxygen (LOX) 2L daytime, 3L at night. Disp: 1 Device Rfl: 0 Lubricants (K-Y LUBRICATING) gel Apply 1 application to affected area as needed (Use as needed for Tracheostomy changes). Disp: 1 Tube Rfl: 11 COMPOUNDED PRESCRIPTION Hand held shower. Needs to sit while showering and use hand held shower. (R53.81) Physical deconditioning; (R26.89) Difficulty balancing when reaching Disp: 1 Each Rfl: 0 hydrocortisone 2.5 % cream Apply 1 application to affected area twice daily as needed. Location: neck (reaction to tape adhesive) May also use for poison tania. (Patient not taking: Reported on 08/15/2017 ) Disp: 28 g Rfl: 0 triamcinolone acetonide (KENALOG) 0.1 % cream Apply 1 application to affected area twice daily. Apply to affected area. Location: arms Disp: 30 g Rfl: 0 omeprazole (PRILOSEC) 20 mg capsule Take 1 capsule by mouth daily before breakfast. 1/2 hr before meal. Disp: 90 capsule Rfl: 3 doxycycline monohydrate (MONODOX) 100 mg capsule Take 1 capsule by mouth twice daily. (Patient not taking: Reported on 08/15/2017 ) Disp: 20 capsule Rfl: 0 Benzonatate (TESSALON) 200 mg capsule Take 1 capsule by mouth twice daily as needed for Cough. (Patient not taking: Reported on 08/15/2017 ) Disp: 30 capsule Rfl: 0 cetirizine (ZYRTEC) 10 mg tablet Take 1 tablet by mouth once daily. (Patient not taking: Reported on 08/15/2017 ) Disp: 30 tablet Rfl: 0 fluticasone (FLONASE) 50 mcg/actuation nasal spray Use 2 Sprays in each nostril once daily. Rinse mouth after use. (Patient not taking: Reported on 08/15/2017 ) Disp: 1 Bottle Rfl: 1 miconazole (CADENCE ANTIFUNGAL) 2 % cream Apply 1 application to affected area twice daily. To perirectal and buttocks area (Patient not taking: Reported on 08/15/2017 ) Disp: 92 g Rfl: 2 traZODone (DESYREL) 100 mg tablet Take 3 tablets by mouth daily at bedtime. ([facility]) Disp: Rfl: topiramate (TOPAMAX) 100 mg tablet Take 1 tablet by mouth once daily. Per psychiatrist Disp: Rfl: BUTRANS 15 mcg/hour ptwk Apply 1 Patch as directed every Monday. Per Dr. Trevizo (Patient not taking: Reported on 08/15/2017 ) Disp: Rfl: 0 thiothixene (NAVANE) 2 mg capsule Take 1 capsule by mouth daily at bedtime. Per psychiatryLorene NP Disp: Rfl: white petrolatum-mineral oil (EUCERIN) cream Apply 1 application to affected area as needed for Dry Skin (all dry skin areas). (Patient not taking: Reported on 08/15/2017 ) Disp: 120 g Rfl: 1 sodium chloride (SALINE MIST) 0.65 % nasal spray Use 1 [place] in the nose as needed for Cold/Allergy Symptoms. Dispense 1 bottle (not 1 ml) Disp: 1 mL Rfl: 11 amantadine HCl (SYMMETREL) 100 mg capsule Take 2 capsules by mouth twice daily. (Dr. Dupree) Disp: Rfl: No current facility-administered medications for this visit. PAST SURGICAL HISTORY Procedure Laterality Date - ANESTH,VAGINAL DELIVERY 1977,1979,1985, 1986 w/ episiotomies - APPENDECTOMY - DANOR, DIA AND/OR THERAPEUTIC 1977 Dilation AND curettage - INDUCED ABORTN BY [facility] - LIGATE FALLOPIAN TUBE Tubal ligation - PAST SURGICAL HISTORY OF 2004 Abdominal surgeries for hernia repairs - PAST SURGICAL HISTORY OF 2008 Ileostomy - PAST SURGICAL HISTORY OF 09/12/2016 Underwent ex lap, takedown of prior ostomy, RONEY and creation of new end ileostomy on 09/12/16 for parastomal hernia with closed loop hernia - PAST SURGICAL HISTORY OF 09/28/2016 Permanent Pacemaker Placement for complete heart block - REDUCE BOWEL OBSTRUCTION Late February 2015 acute bowel obstruction. SB resection. - REMOVAL OF TONSILS,10+ Y/O - [facility] N/CARPAL TUNNEL SURG 2006 Carpal tunnel decomp right - [facility] N/CARPAL TUNNEL SURG Carpal tunnel decomp left - REVISION OF COLOSTOMY,COMPLICATED 2000 3-4 surgeries - TRACHEOSTOMY HX 03/12/2015 protracted critical stay, failure to wean after bowel obtruction FAMILY HISTORY Problem Relation Age of Onset - Pneumonia [OTHER] Mother - Heart Father - Thyroid Daughter - Thyroid Daughter Social History Substance Use Topics - Smoking status: Former Smoker Packs/day: 2.00 Years: 45.00 Types: Cigarettes Start date: 1965 Quit date: 08/27/2010 - Smokeless tobacco: Never Used - Alcohol use No BP 122/68 Pulse 88 Temp 36.5 ?C (97.7 ?F) (Tympanic) Resp 18 Wt 95.3 kg (210 lb) BMI 38.41 kg/m? Objective Physical Exam Constitutional: She is oriented to person, place, and time and well-developed, well-nourished, and in no distress. HENT: Head: Normocephalic and atraumatic. Cardiovascular: Normal rate and regular rhythm. Pulmonary/Chest: Effort normal and breath sounds normal. Neurological: She is alert and oriented to person, place, and time. Skin: Pt has a few small scattered scabs on her forearms. No vesicles or signs of infection. No petechiae or purpura. Nursing note and vitals reviewed. ASSESSMENT/PLAN: 1. Contact dermatitis, unspecified contact dermatitis type, unspecified trigger - ICD9: 692.9, ICD10: L25.9 - Topical steriod tx with triamcinolone - Anti itch therapy of Oral Benydryl recommended prn - discussed skin care of rash - follow up if symptoms persist or worsen. Lisa Tinoco PA-C Referring Provider: SELF [[id number]] Allergies As of Date: 08/15/2017 Noted Allergy Reaction CEPHALOSPORINS 04/03/2003 Comments: itching Cherries [Other] 04/03/2003 Comments: angioedema and tongue blisters CIPROFLOXACIN 09/11/2016 10 - Anaphylaxis Comments: It was used with flagyl at the same time so uknown which is the cause CODEINE 04/03/2003 Comments: rash swelling DICLOFENAC 08/28/2003 Comments: rash DILAUDID (HYDROMORPHONE (BULK)) 06/10/2015 9 - Itching FLAGYL (METRONIDAZOLE HCL) 09/11/2016 10 - Anaphylaxis Comments: It was used with flagyl at the same time so uknown which is the cause Philomena [Other] 04/03/2003 Comments: angioedematous tongue and blisters LYRICA (PREGABALIN) 07/04/2017 7 - Swelling OPIOIDS - MORPHINE ANALOGUES 08/28/2003 Comments: rash Pears [Other] 10/09/2003 PENICILLINS 04/03/2003 10 - Anaphylaxis Comments: ?anaphylaxis, patient tolerates zosyn PERCOCET (OXYCODONE-ACETAMINOPHEN)08/13/2004 9 - Itching SOAP 05/30/2006 VICODIN (HYDROCODONE-ACETAMINOPHE*05/21/2009 2 - Rash ZITHROMAX (AZITHROMYCIN) 03/24/2016 2 - Rash Date Reviewed: 07/24/2017 Reviewed by: Nargis Jennings Pneumatic Systems Operator - Fully Assessed Reason for Visit: Rash [1087] Cmt: on chest AND arms X 2 days Primary Visit Diagnosis:Contact dermatitis, unspecified contact dermatitis type, unspecified trigger [L25.9] Order(s):triamcinolone acetonide (KENALOG) 0.1 % creamApply 1 application to affected area twice daily. Apply to affected area. Location: armsDisp: 30 gRfl: 0 Prescriptions as of 08/15/2017 Sig: ATORVASTATIN 40 MG TABLET Take 1 tablet by mouth once d* BLOOD SUGAR DIAGNOSTIC STRIPS Test blood sugar(s) 4 times d* PEN NEEDLE, DIABETIC 31 GAUGE* Use one needle per dose (Lant* ADHESIVE TAPE 2 X 10 YARD Use for dressings for healing* METRONIDAZOLE 500 MG TABLET Take 1 tablet by mouth three * DULOXETINE 60 MG CAPSULE,DARREN* Take 1 capsule by mouth once * MELOXICAM 7.5 MG TABLET TAKE ONE TABLET BY MOUTH EVER* GUAIFENESIN ER 600 MG TABLET,* Take 1 tablet by mouth twice * COMPOUNDED PRESCRIPTION Stoma check by [facility] (Z93.2) * BLOOD SUGAR DIAGNOSTIC STRIPS Test blood sugar(s) 4 times d* LANCETS Test blood sugar(s) 4 times d* ALCOHOL SWABS Test blood sugars 4 x's daily* GLIMEPIRIDE 2 MG TABLET Take 2 tablets by mouth daily* MAGNESIUM 71.5 MG (MAGNESIUM * Take 1 tablet by mouth once d* INSULIN GLARGINE (U-100) 100 * Inject 17 Units subcutaneousl* MELATONIN 3 MG TABLET Take 2 tablets by mouth daily* IPRATROPIUM-ALBUTEROL 0.5 MG-* Inhale 3 mL as instructed fou* COMPOUNDED PRESCRIPTION Home pulse ox J96.11 BUDESONIDE-FORMOTEROL HFA 160* Inhale 2 Puffs as instructed * COMPOUNDED PRESCRIPTION Abdominal binder for ventral * VRAYLAR 3 MG CAPSULE Take 3 mg by mouth daily at b* COMPOUNDED PRESCRIPTION Bed childs (R26.2) Difficulty * COMPOUNDED PRESCRIPTION Wheel chair (R26.2) Difficul* COMPOUNDED PRESCRIPTION Please perform nocturnal oxim* TRIAMCINOLONE ACETONIDE 0.1 %* Apply 1 application to affect* COMPOUNDED PRESCRIPTION ADHESIVE REMOVER FOR COLOSTOM* COMPOUNDED PRESCRIPTION Back to previous mode of oxyg* LUBRICANTS TOPICAL GEL Apply 1 application to affect* COMPOUNDED PRESCRIPTION Hand held shower. Needs to s* TRIAMCINOLONE ACETONIDE 0.1 %* Apply 1 application to affect* OMEPRAZOLE 20 MG CAPSULE,DARREN* Take 1 capsule by mouth daily* DOXYCYCLINE MONOHYDRATE 100 M* Take 1 capsule by mouth twice* Patient not taking: Reported on 08/15/2017 BENZONATATE 200 MG CAPSULE Take 1 capsule by mouth twice* Patient not taking: Reported on 08/15/2017 CETIRIZINE 10 MG TABLET Take 1 tablet by mouth once d* Patient not taking: Reported on 08/15/2017 FLUTICASONE 50 MCG/ACTUATION * Use 2 Sprays in each nostril * Patient not taking: Reported on 08/15/2017 MICONAZOLE NITRATE 2 % TOPICA* Apply 1 application to affect* Patient not taking: Reported on 08/15/2017 TRAZODONE 100 MG TABLET Take 3 tablets by mouth daily* TOPIRAMATE 100 MG TABLET Take 1 tablet by mouth once d* BUTRANS 15 MCG/HOUR TRANSDERM* Apply 1 Patch as directed daniela* Patient not taking: Reported on 08/15/2017 THIOTHIXENE 2 MG CAPSULE Take 1 capsule by mouth daily* WHITE PETROLATUM-MINERAL OIL * Apply 1 application to affect* Patient not taking: Reported on 08/15/2017 SODIUM CHLORIDE 0.65 % NASAL * Use 1 [place] in the nose as ne* AMANTADINE HCL 100 MG CAPSULE Take 2 capsules by mouth twic* Problem List As Of Date 08/15/2017 Noted Resolved DEPRESSIVE DISORDER NEC(aka DEPRESSION) [F32.9] INVALID FOR* SCHIZOPHRENIA NEC [295.8] INVALID FOR* More... MALIGNANT NEOPLASM COLON NOS(aka COLON) [C18.9] INVALID FOR* More... More... PEPTIC ULCER NOS [K27.9] INVALID FOR* Tobacco use disorder [F17.200] INVALID FOR*11/18/2011 More... Routine general medical examination at a health*INVALID FOR*02/25/2013 More... MACULAR DEGENERATION NOS [H35.30] INVALID FOR* More... Diabetes mellitus type 2, uncontrolled, without*INVALID FOR* Priority: G More... Class 2 obesity due to excess calories with bod*INVALID FOR*11/08/2016 Priority: H More... HEMATURIA NOS [R31.9] INVALID FOR* More... Hyperlipidemia [E78.5] INVALID FOR* More... HEADACHE [R51] INVALID FOR* Sleep Apnea [G47.30] INVALID FOR* More... Asthma [J45.909] Priority: D More... DM w/o complication type II [E11.9] INVALID FOR* Pain in soft tissues of limb [M79.609] INVALID FOR* Dermatophytosis of nail [B35.1] INVALID FOR* Ventral hernia [K43.9] INVALID FOR* Lunate fracture, closed [S62.123A] INVALID FOR* Acute postoperative respiratory insufficiency [*INVALID FOR*07/19/2016 Priority: C More... Bowel obstruction (HCC) [K56.609] INVALID FOR* Priority: A More... Electrolyte and fluid disorder [E87.8] INVALID FOR*03/03/2015 Priority: I More... Post-op pain [G89.18] INVALID FOR* Priority: G More... Postoperative anemia due to acute blood loss [D*INVALID FOR* Priority: F More... H/O schizophrenia [Z86.59] INVALID FOR* Priority: E More... Hypotension [I95.9] INVALID FOR* Priority: E More... Fever [R50.9] INVALID FOR* Priority: F More... Septic shock due to Escherichia coli (HCC) [A41*INVALID FOR*07/19/2016 Priority: B More... Altered mental status [R41.82] INVALID FOR*12/09/2015 Priority: D More... Hyperbilirubinemia [E80.6] INVALID FOR*03/08/2015 More... Hypernatremia [E87.0] INVALID FOR*03/14/2015 Priority: K More... Skin lesion [L98.9] INVALID FOR* Priority: I More... Mild protein-calorie malnutrition (HCC) [E44.1] INVALID FOR* Priority: K More... Electrolyte imbalance [E87.8] INVALID FOR*07/19/2016 Priority: J More... Physical deconditioning [R53.81] INVALID FOR* Priority: L More... Metabolic acidosis [E87.2] INVALID FOR*03/19/2015 Encephalopathy in sepsis [G93.41] INVALID FOR* More... Acute kidney injury (HCC) [N17.9] INVALID FOR*03/19/2015 More... Small intestinal anastomotic leak [K91.89] INVALID FOR* More... Hypernatremia [E87.0] INVALID FOR*03/19/2015 More... Fistula [L98.8] INVALID FOR* On total parenteral nutrition (TPN) [Z78.9] INVALID FOR* Scruggs catheter dysfunction (HCC) [T82.514A] INVALID FOR* Tracheostomy care (HCC) [Z43.0] INVALID FOR* Magnesium deficiency [E61.2] INVALID FOR* Tracheostomy present (HCC) [Z93.0] INVALID FOR*07/24/2017 Hypomagnesemia [E83.42] INVALID FOR* Hematoma [T14.8XXA] INVALID FOR* SBO (small bowel obstruction) (HCC) [K56.609] INVALID FOR* Ventral hernia with bowel obstruction [K43.6] INVALID FOR* More... 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 Apply to affected area. Location: arms TRIAMCINOLONE ACETONIDE 0.1 % TOPICA* 30 g 0 08/15/2017 Route: TOPICAL Sig: Apply 1 application to affected area twice daily. Apply to affected area. Location: arms Medications Discontinued During This Encounter triamcinolone acetonide (KENALOG) 0.* 15 g 0 08/15/2017 08/15/2017 Route: TOPICAL Sig: Apply 1 application to affected area twice daily. Apply to affected area. Location: arms Disc: Reason for discontinue is not on file. Encounter Status:Closed by LISA TINOCO PA-C on 08/15/17 DORYN Observed: 08/10/2017 Status: COMPLETED Source: [place] 12:00 AM [facility] REPOSITORY Telephone (PULMMN) CHRISTOPHER HOBSON ([id number]) 1960 F [facility] Date Time Provider Department 08/10/17 KAREL MCNAIR) CHACE During your visit today, we recorded the following information about you: Karel Mcnair PA-C 08/10/2017 12:04 PM Signed I spoke with the patient. She continues to do well s/p decannulation of tracheostomy tube. The stoma continues to heal and is now the size of the the tip of a pen per patient. She denies any SOB or wheezing. She notes having occasional green mucous from opening at the stoma. Plan: Recommend sleep study to assess for YENY. Patient with difficulty with travel/financial hardship. Dr. Alvarez and I suggest she re-establish with a pulmonary provider closer to her residence (seen by Dr. Smalls in the past) for followup. We can still see her for any airway issues that arise. Patient agreeable to this plan. Janel Weathers 10/04/2017 2:17 PM Signed Pt scheduled 10/27/17.Janel Weathers Allergies As of Date: 08/10/2017 Noted Allergy Reaction CEPHALOSPORINS 04/03/2003 Comments: itching Cherries [Other] 04/03/2003 Comments: angioedema and tongue blisters CIPROFLOXACIN 09/11/2016 10 - Anaphylaxis Comments: It was used with flagyl at the same time so uknown which is the cause CODEINE 04/03/2003 Comments: rash swelling DICLOFENAC 08/28/2003 Comments: rash DILAUDID (HYDROMORPHONE (BULK)) 06/10/2015 9 - Itching FLAGYL (METRONIDAZOLE HCL) 09/11/2016 10 - Anaphylaxis Comments: It was used with flagyl at the same time so uknown which is the cause Philomena [Other] 04/03/2003 Comments: angioedematous tongue and blisters LYRICA (PREGABALIN) 07/04/2017 7 - Swelling OPIOIDS - MORPHINE ANALOGUES 08/28/2003 Comments: rash Pears [Other] 10/09/2003 PENICILLINS 04/03/2003 10 - Anaphylaxis Comments: ?anaphylaxis, patient tolerates zosyn PERCOCET (OXYCODONE-ACETAMINOPHEN)08/13/2004 9 - Itching SOAP 05/30/2006 VICODIN (HYDROCODONE-ACETAMINOPHE*05/21/2009 2 - Rash ZITHROMAX (AZITHROMYCIN) 03/24/2016 2 - Rash Date Reviewed: 07/24/2017 Reviewed by: Nargis Jennings Pneumatic Systems Operator - Fully Assessed Reason for Visit: Recheck [92] Prescriptions as of 08/10/2017 Sig: ATORVASTATIN 40 MG TABLET Take 1 tablet by mouth once d* BLOOD SUGAR DIAGNOSTIC STRIPS Test blood sugar(s) 4 times d* PEN NEEDLE, DIABETIC 31 GAUGE* Use one needle per dose (Lant* OMEPRAZOLE 20 MG CAPSULE,DARREN* Take 1 capsule by mouth daily* ADHESIVE TAPE 2 X 10 YARD Use for dressings for healing* METRONIDAZOLE 500 MG TABLET Take 1 tablet by mouth three * X HYDROCORTISONE 2.5 % TOPICAL * Apply 1 application to affect* DULOXETINE 60 MG CAPSULE,DARREN* Take 1 capsule by mouth once * MELOXICAM 7.5 MG TABLET TAKE ONE TABLET BY MOUTH EVER* GUAIFENESIN ER 600 MG TABLET,* Take 1 tablet by mouth twice * DOXYCYCLINE MONOHYDRATE 100 M* Take 1 capsule by mouth twice* X BENZONATATE 200 MG CAPSULE Take 1 capsule by mouth twice* CETIRIZINE 10 MG TABLET Take 1 tablet by mouth once d* FLUTICASONE 50 MCG/ACTUATION * Use 2 Sprays in each nostril * COMPOUNDED PRESCRIPTION Stoma check by [facility] (Z93.2) * MICONAZOLE NITRATE 2 % TOPICA* Apply 1 application to affect* BLOOD SUGAR DIAGNOSTIC STRIPS Test blood sugar(s) 4 times d* LANCETS Test blood sugar(s) 4 times d* ALCOHOL SWABS Test blood sugars 4 x's daily* GLIMEPIRIDE 2 MG TABLET Take 2 tablets by mouth daily* TRAZODONE 100 MG TABLET Take 3 tablets by mouth daily* X MAGNESIUM 71.5 MG (MAGNESIUM * Take 1 tablet by mouth once d* X INSULIN GLARGINE (U-100) 100 * Inject 17 Units subcutaneousl* TOPIRAMATE 100 MG TABLET Take 1 tablet by mouth once d* BUTRANS 15 MCG/HOUR TRANSDERM* Apply 1 Patch as directed daniela* MELATONIN 3 MG TABLET Take 2 tablets by mouth daily* THIOTHIXENE 2 MG CAPSULE Take 1 capsule by mouth daily* COMPOUNDED PRESCRIPTION Home pulse ox J96.11 X IPRATROPIUM-ALBUTEROL 0.5 MG-* Inhale 3 mL as instructed fou* BUDESONIDE-FORMOTEROL HFA 160* Inhale 2 Puffs as instructed * COMPOUNDED PRESCRIPTION Abdominal binder for ventral * VRAYLAR 3 MG CAPSULE Take 3 mg by mouth daily at b* WHITE PETROLATUM-MINERAL OIL * Apply 1 application to affect* COMPOUNDED PRESCRIPTION Bed childs (R26.2) Difficulty * COMPOUNDED PRESCRIPTION Wheel chair (R26.2) Difficul* COMPOUNDED PRESCRIPTION Please perform nocturnal oxim* TRIAMCINOLONE ACETONIDE 0.1 %* Apply 1 application to affect* SODIUM CHLORIDE 0.65 % NASAL * Use 1 [place] in the nose as ne* COMPOUNDED PRESCRIPTION ADHESIVE REMOVER FOR COLOSTOM* COMPOUNDED PRESCRIPTION Back to previous mode of oxyg* LUBRICANTS TOPICAL GEL Apply 1 application to affect* AMANTADINE HCL 100 MG CAPSULE Take 2 capsules by mouth twic* COMPOUNDED PRESCRIPTION Hand held shower. Needs to s* Problem List As Of Date 08/10/2017 Noted Resolved DEPRESSIVE DISORDER NEC(aka DEPRESSION) [F32.9] INVALID FOR* SCHIZOPHRENIA NEC [295.8] INVALID FOR* More... MALIGNANT NEOPLASM COLON NOS(aka COLON) [C18.9] INVALID FOR* More... More... PEPTIC ULCER NOS [K27.9] INVALID FOR* Tobacco use disorder [F17.200] INVALID FOR*11/18/2011 More... Routine general medical examination at a health*INVALID FOR*02/25/2013 More... MACULAR DEGENERATION NOS [H35.30] INVALID FOR* More... Diabetes mellitus type 2, uncontrolled, without*INVALID FOR* Priority: G More... Class 2 obesity due to excess calories with bod*INVALID FOR*11/08/2016 Priority: H More... HEMATURIA NOS [R31.9] INVALID FOR* More... Hyperlipidemia [E78.5] INVALID FOR* More... HEADACHE [R51] INVALID FOR* Sleep Apnea [G47.30] INVALID FOR* More... Asthma [J45.909] Priority: D More... DM w/o complication type II [E11.9] INVALID FOR* Pain in soft tissues of limb [M79.609] INVALID FOR* Dermatophytosis of nail [B35.1] INVALID FOR* Ventral hernia [K43.9] INVALID FOR* Lunate fracture, closed [S62.123A] INVALID FOR* Acute postoperative respiratory insufficiency [*INVALID FOR*07/19/2016 Priority: C More... Bowel obstruction (HCC) [K56.609] INVALID FOR* Priority: A More... Electrolyte and fluid disorder [E87.8] INVALID FOR*03/03/2015 Priority: I More... Post-op pain [G89.18] INVALID FOR* Priority: G More... Postoperative anemia due to acute blood loss [D*INVALID FOR* Priority: F More... H/O schizophrenia [Z86.59] INVALID FOR* Priority: E More... Hypotension [I95.9] INVALID FOR* Priority: E More... Fever [R50.9] INVALID FOR* Priority: F More... Septic shock due to Escherichia coli (HCC) [A41*INVALID FOR*07/19/2016 Priority: B More... Altered mental status [R41.82] INVALID FOR*12/09/2015 Priority: D More... Hyperbilirubinemia [E80.6] INVALID FOR*03/08/2015 More... Hypernatremia [E87.0] INVALID FOR*03/14/2015 Priority: K More... Skin lesion [L98.9] INVALID FOR* Priority: I More... Mild protein-calorie malnutrition (HCC) [E44.1] INVALID FOR* Priority: K More... Electrolyte imbalance [E87.8] INVALID FOR*07/19/2016 Priority: J More... Physical deconditioning [R53.81] INVALID FOR* Priority: L More... Metabolic acidosis [E87.2] INVALID FOR*03/19/2015 Encephalopathy in sepsis [G93.41] INVALID FOR* More... Acute kidney injury (HCC) [N17.9] INVALID FOR*03/19/2015 More... Small intestinal anastomotic leak [K91.89] INVALID FOR* More... Hypernatremia [E87.0] INVALID FOR*03/19/2015 More... Fistula [L98.8] INVALID FOR* On total parenteral nutrition (TPN) [Z78.9] INVALID FOR* Scruggs catheter dysfunction (HCC) [T82.514A] INVALID FOR* Tracheostomy care (HCC) [Z43.0] INVALID FOR* Magnesium deficiency [E61.2] INVALID FOR* Tracheostomy present ([facility]) [Z93.0] INVALID FOR*07/24/2017 Hypomagnesemia [E83.42] INVALID FOR* Hematoma [T14.8XXA] INVALID FOR* SBO (small bowel obstruction) ([facility]) [K56.609] INVALID FOR* Ventral hernia with bowel obstruction [K43.6] INVALID FOR* More... 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] INVALID FOR* Complete heart block (HCC) [I44.2] INVALID FOR* Cardiac pacemaker in situ [Z95.0] INVALID FOR* Right bundle branch block [I45.10] INVALID FOR* Hypoalbuminemia [E88.09] INVALID FOR* Hypoproteinemia (HCC) [E77.8] INVALID FOR* VRE bacteremia [R78.81, Z16.21] INVALID FOR* Class 1 obesity due to excess calories with ser*INVALID FOR* Follow-up and Disposition History Recorded Encounter Status:Closed by KAREL MCNAIR PA-C on 08/10/17 CNPN Observed: 07/28/2017 Status: COMPLETED Source: [place] 12:00 AM [facility] REPOSITORY Telephone (PULMMN) CHRISTOPHER HOBSON ([id number]) 1960 F T Date Time Provider Department 07/28/17 KAREL MCNAIR) PULN During your visit today, we recorded the following information about you: Karel Mcnair PA-C 07/28/2017 10:17 AM Signed All of the patient's and husbands questions answered (see previous phone encounters, same questions being asked) since his office visit on 07/10/17 Allergies As of Date: 07/28/2017 Noted Allergy Reaction CEPHALOSPORINS 04/03/2003 Comments: itching Cherries [Other] 04/03/2003 Comments: angioedema and tongue blisters CIPROFLOXACIN 09/11/2016 10 - Anaphylaxis Comments: It was used with flagyl at the same time so uknown which is the cause CODEINE 04/03/2003 Comments: rash swelling DICLOFENAC 08/28/2003 Comments: rash DILAUDID (HYDROMORPHONE (BULK)) 06/10/2015 9 - Itching FLAGYL (METRONIDAZOLE HCL) 09/11/2016 10 - Anaphylaxis Comments: It was used with flagyl at the same time so uknown which is the cause Philomena [Other] 04/03/2003 Comments: angioedematous tongue and blisters LYRICA (PREGABALIN) 07/04/2017 7 - Swelling OPIOIDS - MORPHINE ANALOGUES 08/28/2003 Comments: rash Pears [Other] 10/09/2003 PENICILLINS 04/03/2003 10 - Anaphylaxis Comments: ?anaphylaxis, patient tolerates zosyn PERCOCET (OXYCODONE-ACETAMINOPHEN)08/13/2004 9 - Itching SOAP 05/30/2006 VICODIN (HYDROCODONE-ACETAMINOPHE*05/21/2009 2 - Rash ZITHROMAX (AZITHROMYCIN) 03/24/2016 2 - Rash Date Reviewed: 07/24/2017 Reviewed by: Nargis Jennings Pneumatic Systems Operator - Fully Assessed Reason for Visit: Question [1327] Prescriptions as of 07/28/2017 Sig: ATORVASTATIN 40 MG TABLET Take 1 tablet by mouth once d* BLOOD SUGAR DIAGNOSTIC STRIPS Test blood sugar(s) 4 times d* PEN NEEDLE, DIABETIC 31 GAUGE* Use one needle per dose (Lant* OMEPRAZOLE 20 MG CAPSULE,DARREN* Take 1 capsule by mouth daily* ADHESIVE TAPE 2 X 10 YARD Use for dressings for healing* HYDROCORTISONE 2.5 % TOPICAL * Apply 1 application to affect* METRONIDAZOLE 500 MG TABLET Take 1 tablet by mouth three * DULOXETINE 60 MG CAPSULE,DARREN* Take 1 capsule by mouth once * MELOXICAM 7.5 MG TABLET TAKE ONE TABLET BY MOUTH EVER* GUAIFENESIN ER 600 MG TABLET,* Take 1 tablet by mouth twice * DOXYCYCLINE MONOHYDRATE 100 M* Take 1 capsule by mouth twice* BENZONATATE 200 MG CAPSULE Take 1 capsule by mouth twice* CETIRIZINE 10 MG TABLET Take 1 tablet by mouth once d* FLUTICASONE 50 MCG/ACTUATION * Use 2 Sprays in each nostril * COMPOUNDED PRESCRIPTION Stoma check by [facility] (Z93.2) * MICONAZOLE NITRATE 2 % TOPICA* Apply 1 application to affect* BLOOD SUGAR DIAGNOSTIC STRIPS Test blood sugar(s) 4 times d* LANCETS Test blood sugar(s) 4 times d* ALCOHOL SWABS Test blood sugars 4 x's daily* GLIMEPIRIDE 2 MG TABLET Take 2 tablets by mouth daily* TRAZODONE 100 MG TABLET Take 3 tablets by mouth daily* MAGNESIUM 71.5 MG (MAGNESIUM * Take 1 tablet by mouth once d* INSULIN GLARGINE (U-100) 100 * Inject 17 Units subcutaneousl* TOPIRAMATE 100 MG TABLET Take 1 tablet by mouth once d* BUTRANS 15 MCG/HOUR TRANSDERM* Apply 1 Patch as directed daniela* MELATONIN 3 MG TABLET Take 2 tablets by mouth daily* THIOTHIXENE 2 MG CAPSULE Take 1 capsule by mouth daily* IPRATROPIUM-ALBUTEROL 0.5 MG-* Inhale 3 mL as instructed fou* COMPOUNDED PRESCRIPTION Home pulse ox J96.11 BUDESONIDE-FORMOTEROL HFA 160* Inhale 2 Puffs as instructed * COMPOUNDED PRESCRIPTION Abdominal binder for ventral * VRAYLAR 3 MG CAPSULE Take 3 mg by mouth daily at b* WHITE PETROLATUM-MINERAL OIL * Apply 1 application to affect* COMPOUNDED PRESCRIPTION Bed childs (R26.2) Difficulty * COMPOUNDED PRESCRIPTION Wheel chair (R26.2) Difficul* COMPOUNDED PRESCRIPTION Please perform nocturnal oxim* TRIAMCINOLONE ACETONIDE 0.1 %* Apply 1 application to affect* SODIUM CHLORIDE 0.65 % NASAL * Use 1 [place] in the nose as ne* COMPOUNDED PRESCRIPTION ADHESIVE REMOVER FOR COLOSTOM* COMPOUNDED PRESCRIPTION Back to previous mode of oxyg* LUBRICANTS TOPICAL GEL Apply 1 application to affect* AMANTADINE HCL 100 MG CAPSULE Take 2 capsules by mouth twic* COMPOUNDED PRESCRIPTION Hand held shower. Needs to s* Problem List As Of Date 07/28/2017 Noted Resolved DEPRESSIVE DISORDER NEC(aka DEPRESSION) [F32.9] INVALID FOR* SCHIZOPHRENIA NEC [295.8] INVALID FOR* More... MALIGNANT NEOPLASM COLON NOS(aka COLON) [C18.9] INVALID FOR* More... More... PEPTIC ULCER NOS [K27.9] INVALID FOR* Tobacco use disorder [F17.200] INVALID FOR*11/18/2011 More... Routine general medical examination at a health*INVALID FOR*02/25/2013 More... MACULAR DEGENERATION NOS [H35.30] INVALID FOR* More... Diabetes mellitus type 2, uncontrolled, without*INVALID FOR* Priority: G More... Class 2 obesity due to excess calories with bod*INVALID FOR*11/08/2016 Priority: H More... HEMATURIA NOS [R31.9] INVALID FOR* More... Hyperlipidemia [E78.5] INVALID FOR* More... HEADACHE [R51] INVALID FOR* Sleep Apnea [G47.30] INVALID FOR* More... Asthma [J45.909] Priority: D More... DM w/o complication type II [E11.9] INVALID FOR* Pain in soft tissues of limb [M79.609] INVALID FOR* Dermatophytosis of nail [B35.1] INVALID FOR* Ventral hernia [K43.9] INVALID FOR* Lunate fracture, closed [S62.123A] INVALID FOR* Acute postoperative respiratory insufficiency [*INVALID FOR*07/19/2016 Priority: C More... Bowel obstruction (HCC) [K56.609] INVALID FOR* Priority: A More... Electrolyte and fluid disorder [E87.8] INVALID FOR*03/03/2015 Priority: I More... Post-op pain [G89.18] INVALID FOR* Priority: G More... Postoperative anemia due to acute blood loss [D*INVALID FOR* Priority: F More... H/O schizophrenia [Z86.59] INVALID FOR* Priority: E More... Hypotension [I95.9] INVALID FOR* Priority: E More... Fever [R50.9] INVALID FOR* Priority: F More... Septic shock due to Escherichia coli (HCC) [A41*INVALID FOR*07/19/2016 Priority: B More... Altered mental status [R41.82] INVALID FOR*12/09/2015 Priority: D More... Hyperbilirubinemia [E80.6] INVALID FOR*03/08/2015 More... Hypernatremia [E87.0] INVALID FOR*03/14/2015 Priority: K More... Skin lesion [L98.9] INVALID FOR* Priority: I More... Mild protein-calorie malnutrition (HCC) [E44.1] INVALID FOR* Priority: K More... Electrolyte imbalance [E87.8] INVALID FOR*07/19/2016 Priority: J More... Physical deconditioning [R53.81] INVALID FOR* Priority: L More... Metabolic acidosis [E87.2] INVALID FOR*03/19/2015 Encephalopathy in sepsis [G93.41] INVALID FOR* More... Acute kidney injury (HCC) [N17.9] INVALID FOR*03/19/2015 More... Small intestinal anastomotic leak [K91.89] INVALID FOR* More... Hypernatremia [E87.0] INVALID FOR*03/19/2015 More... Fistula [L98.8] INVALID FOR* On total parenteral nutrition (TPN) [Z78.9] INVALID FOR* Scruggs catheter dysfunction (HCC) [T82.514A] INVALID FOR* Tracheostomy care (HCC) [Z43.0] INVALID FOR* Magnesium deficiency [E61.2] INVALID FOR* Tracheostomy present (HCC) [Z93.0] INVALID FOR*07/24/2017 Hypomagnesemia [E83.42] INVALID FOR* Hematoma [T14.8XXA] INVALID FOR* SBO (small bowel obstruction) (HCC) [K56.609] INVALID FOR* Ventral hernia with bowel obstruction [K43.6] INVALID FOR* More... 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] INVALID FOR* Complete heart block (HCC) [I44.2] INVALID FOR* Cardiac pacemaker in situ [Z95.0] INVALID FOR* Right bundle branch block [I45.10] INVALID FOR* Hypoalbuminemia [E88.09] INVALID FOR* Hypoproteinemia (HCC) [E77.8] INVALID FOR* VRE bacteremia [R78.81, Z16.21] INVALID FOR* Class 1 obesity due to excess calories with ser*INVALID FOR* Follow-up and Disposition History Recorded Encounter Status:Closed by KAREL MCNAIR PA-C on 07/28/17 BASIC METABOLIC PANL Collected: 07/24/2017 Status: F Source: [facility] 1:46 PM [facility] REPOSITORY TYPE CODE TESTS RESULT OUT OF REFERENCE UNITS RANGE LAB GLU 74-99 mg/dL High Glucose 202 Result Comment: The [place] [employer] (ADA) provides guidance for cutoff values for fasting glucose and random glucose. The ADA defines fasting as no caloric intake for at least 8 hours. Fas ting plasma glucose results between 100 to 125 mg/dL indicate increased risk for diabetes (prediabetes). Fasting plasma glucose results greater than or equal to 126 mg/dL meet the criteria for diagnosis of diabetes. In the absence of unequivocal hyperglycemia, results should be confirmed by repeat testing. In a patient with classic symptoms of hyperglycemia or hyperglycemic crisis, random plasma glucose results greater than or equal to 200 mg/dL meet the criteria for diagnosis of diabetes. Reference: Standards of Medical Care in Diabetes 2016, [place] [employer]. Diabetes Care. 2016.39(Suppl 1). LAB BUN 7-21 mg/dL BUN 13 LAB CRET 0.58-0.96 mg/dL Creatinine 0.95 LAB NA 136-144 mmol/L Sodium 136 LAB K 3.7-5.1 mmol/L Potassium 4.8 LAB CL 97-105 mmol/L Chloride 99 LAB CO2 22-30 mmol/L CO2 Low 20 LAB AGAP 9-18 mmol/L Anion Gap 17 LAB CA 8.5-10.2 mg/dL Calcium, Total 9.2 LAB GFRAA eGFR- Amer. >60 LAB GFRNAA . eGFR-All Other Races >60 Result Comment: eGFR (Estimated GFR) Units of measure: mL/min/1.73 meters squared eGFR is derived from the reexpressed MDRD Study equation using the following parameters: serum creatinine, age, gender and race. The creatinine assay has been calibrated to be traceable to IDMS. An eGFR <60 mL/min/1.73m2 for >3 months is consistent with chronic kidney disease. Refer to KDOQI guidelines for clinical interpretation. In patients with unstable renal function, e.g. those with acute kidney injury, the eGFR may not accurately reflect actual GFR. Performed By: #### BMP, LIPB, HBA1C #### [facility] [address] [address] LIPID PANEL, BASIC Collected: 07/24/2017 Status: F Source: [facility] 1:46 PM [facility] REPOSITORY TYPE CODE TESTS RESULT OUT OF REFERENCE UNITS RANGE LAB CHOL <200 mg/dL Cholesterol 136 Result Comment: <200 mg/dL, Desirable 200-239 mg/dL, Borderline high >239 mg/dL, High LAB TRIGLY <150 mg/dL Triglyceride 99 Result Comment: <150 mg/dL, Normal 150-199 mg/dL, Borderline high 200-499 mg/dL, High >499 mg/dL, Very high LAB HDL >39 mg/dL HDL-Cholesterol 77 Result Comment: 40-59 mg/dL, Acceptable >59 mg/dL, High: Negative risk factor for coronary heart disease <40 mg/dL, Low: Positive risk factor for coronary heart disease LAB LDL <100 mg/dL LDL-Cholesterol 39 Result Comment: <100 mg/dL, Optimal 100-129 mg/dL, Near optimal/above optimal 130-159 mg/dL, Borderline high 160-189 mg/dL, High >189 mg/dL, Very high Secondary prevention optimal LDL Cholesterol levels are recommended to be < 70 mg/dL LAB NONHDL <130 mg/dL Non HDL Cholesterol 59 Result Comment: <130 mg/dL, Optimal 130-159 mg/dL, Near optimal/above optimal 160-189 mg/dL, Borderline high 190-219 mg/dL, High >219 mg/dL, Very high Secondary prevention optimal non HDL Cholesterol levels are recommended to be < 100 mg/dL LAB FT hrs Fasting Time 18 LAB VLDL <30 mg/dL VLDL Cholesterol 20 LAB TCHDL <5.10 TC:HDL Ratio 1.77 LAB LDLHDL <2.54 LDL:HDL Ratio 0.51 Result Comment: Reference: 1. National Cholesterol Education Program ATP III Guideline At-A-Glance Quick Desk Reference: National Heart, Lung, and Blood [place]. National Institutes of Health. 2001: NIH Publication No. 01-3305. 2. An International Atherosclerosis Society position paper: global recommendations for the management of dyslipidemia: executive summary, Atherosclerosis. 2014: 232(2):410-413. Performed By: #### BMP, LIPB, HBA1C #### [facility] [address], [place] [address] HEMOGLOBIN A1C Collected: 07/24/2017 Status: F Source: [facility] 1:46 PM [facility] REPOSITORY TYPE CODE TESTS RESULT OUT OF REFERENCE UNITS RANGE LAB HGBA1C 4.3-5.6 % High Hemoglobin A1c 9.0 LAB HBA0 mg/dL Est. Average Glucose 212 Result Comment: eAG: (Estimated average glucose) is a calculated value from HgbA1c and is dental sales representative of the average blood glucose level in the last 2-3 month period. Performed By: #### BMP, LIPB, HBA1C #### [facility] [address] [place], [place] [address] PROGRESS Observed: 07/24/2017 Status: COMPLETED Source: [facility] 12:52 PM [facility] REPOSITORY HNO ID: [id number] Author: Tiff Pearson Service: (none) Author Type: Physician Type: Progress Notes Filed: 08/05/2017 8:32 PM Note Text: Patient presents with: Recheck SUBJECTIVE: Christopher Hobson is a 56 year old year old lady here today for follow up appointment for review of medical conditions. Was booked for follow up on removal of trach but had several concerns to address. S/p trach removal. healing well. Not needing oxygen. Sore from tape. Using paper tape now. Had tried a different tape at [facility]--had tolerated well. Told to keep covered till hole closed. Need for refill of Flagyl for recurrence of diarrhea and vaginal irritation discussed. 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 - Unspecified migraine 1998 Current Outpatient Prescriptions: atorvastatin (LIPITOR) 40 mg tablet Take 1 tablet by mouth once daily. blood sugar diagnostic (FREESTYLE INSULINX) test strip Test blood sugar(s) 4 times daily and as needed. Dx: Type 2 DM - Uncontrolled E11.65 Insulin: Yes insulin needles, DISPOSABLE, (PEN NEEDLE) 31 gauge x 5/16 ndle Use one needle per dose (Lantus and Humalog). 5 per day. omeprazole (PRILOSEC) 20 mg capsule Take 1 capsule by mouth daily before breakfast. 1/2 hr before meal. Adhesive Tape (DURAPORE SURGICAL) 2 X 10 -yard tape Use for dressings for healing tracheostomy site. hydrocortisone 2.5 % cream Apply 1 application to affected area twice daily as needed. Location: neck (reaction to tape adhesive) metroNIDAZOLE (FLAGYL) 500 mg tablet Take 1 tablet by mouth three times daily. DULoxetine (CYMBALTA) 60 mg capsule Take 1 capsule by mouth once daily. meloxicam (MOBIC) 7.5 mg tablet TAKE ONE TABLET BY MOUTH EVERY DAY ON a full stomach guaiFENesin (MUCINEX) 600 mg 12 hr tablet Take 1 tablet by mouth twice daily. doxycycline monohydrate (MONODOX) 100 mg capsule Take 1 capsule by mouth twice daily. Benzonatate (TESSALON) 200 mg capsule Take 1 capsule by mouth twice daily as needed for Cough. cetirizine (ZYRTEC) 10 mg tablet Take 1 tablet by mouth once daily. fluticasone (FLONASE) 50 mcg/actuation nasal spray Use 2 Sprays in each nostril once daily. Rinse mouth after use. COMPOUNDED PRESCRIPTION Stoma check by [facility] (Z93.2) Ileostomy in place ([facility]) miconazole (CADENCE ANTIFUNGAL) 2 % cream Apply 1 application to affected area twice daily. To perirectal and buttocks area blood sugar diagnostic (BLOOD GLUCOSE TEST) test strip Test blood sugar(s) 4 times daily and as needed as directed. Dx: Type 2 DM - Uncontrolled E11.65 Insulin: Yes Lancets lancets Test blood sugar(s) 4 times daily as directed. Dx: Type 2 DM - Uncontrolled E11.65 Insulin: Yes alcohol swabs (SURE-PREP ALCHOLOL PREP PADS) padm Test blood sugars 4 x's daily. Dx: E11.65 Insulin: Yes glimepiride (AMARYL) 2 mg tablet Take 2 tablets by mouth daily with breakfast. traZODone (DESYREL) 100 mg tablet Take 3 tablets by mouth daily at bedtime. ([facility]) Magnesium Chloride (SLOW-MAG) 71.5 mg TbEC Take 1 tablet by mouth once daily. insulin glargine (LANTUS SOLOSTAR) 100 unit/mL (3 mL) inpn Inject 17 Units subcutaneously daily at bedtime. (patient instructed to increase dose, but as of October 17, 2016, had not yet increased) topiramate (TOPAMAX) 100 mg tablet Take 1 tablet by mouth once daily. Per psychiatrist MONIQUE 15 mcg/hour ptwk Apply 1 Patch as directed every Monday. Per Dr. Trevizo melatonin 3 mg Take 2 tablets by mouth daily at bedtime. thiothixene (NAVANE) 2 mg capsule Take 1 capsule by mouth daily at bedtime. Per psychiatryLorene NP ipratropium-albuterol (DUONEB) 0.5 mg-3 mg(2.5 mg base)/3 mL nebu Inhale 3 mL as instructed four times daily as needed (wheezing). Use over 5-15minutes per nebulizer. COMPOUNDED PRESCRIPTION Home pulse ox J96.11 budesonide-formoterol (SYMBICORT) 160-4.5 mcg/actuation inhaler Inhale 2 Puffs as instructed twice daily. COMPOUNDED PRESCRIPTION Abdominal binder for ventral hernia K43.9 VRAYLAR 3 mg cap Take 3 mg by mouth daily at bedtime. white petrolatum-mineral oil (EUCERIN) cream Apply 1 application to affected area as needed for Dry Skin (all dry skin areas). COMPOUNDED PRESCRIPTION Bed childs (R26.2) Difficulty ambulating due to knee COMPOUNDED PRESCRIPTION Wheel chair (R26.2) Difficulty ambulating due to knee COMPOUNDED PRESCRIPTION Please perform nocturnal oximetry on 5 lpm O2 via trach mask. Please fax results to [phone]. DX: Chronic hypoxemic respiratory failure, J96.11. triamcinolone acetonide (KENALOG) 0.1 % cream Apply 1 application to affected area three times daily. Apply sparingly to area for rash/itching till rash resolves. For contact dermatitis sodium chloride (SALINE MIST) 0.65 % nasal spray Use 1 [place] in the nose as needed for Cold/Allergy Symptoms. Dispense 1 bottle (not 1 ml) COMPOUNDED PRESCRIPTION ADHESIVE REMOVER FOR COLOSTOMY BAG REMOVAL DX Z93.3 COMPOUNDED PRESCRIPTION Back to previous mode of oxygen (LOX) 2L daytime, 3L at night. Lubricants (K-Y LUBRICATING) gel Apply 1 application to affected area as needed (Use as needed for Tracheostomy changes). amantadine HCl (SYMMETREL) 100 mg capsule Take 2 capsules by mouth twice daily. (Dr. Dupree) COMPOUNDED PRESCRIPTION Hand held shower. Needs to sit while showering and use hand held shower. (R53.81) Physical deconditioning; (R26.89) Difficulty balancing when reaching No current facility-administered medications for this visit. OBJECTIVE: BP 138/80 Pulse 77 Resp 16 Wt 93 kg (205 lb) SpO2 97% BMI 37.49 kg/m? Patient is alert, oriented times 3, no apparent distress, affect is bright, reactive. Neck: trach site clean and no signs of infection; tiny amount of drainage on the gauze; just a little bit of clear drainage noted in site; dressing with gauze and [place] tape used instead of paper tape. Skin red where tape applied. Some signs of contact dermatitis but also skin irritation from pulling of tape Heart: Regular rate, rhythm, no murmurs, gallops, rubs. Lungs: Clear to auscultation, bilaterally, breathing non labored. Ext: No cyanosis, clubbing, or edema. Component Latest Ref Rng AND Units 06/14/2017 WBC 3.70 - 11.00 k/uL 7.01 RBC 3.90 - 5.20 m/uL 4.28 Hemoglobin 11.5 - 15.5 g/dL 11.8 Hematocrit 36.0 - 46.0 % 39.6 MCV 80.0 - 100.0 fL 92.5 MCH 26.0 - 34.0 pG 27.6 MCHC 30.5 - 36.0 g/dL 29.8 (L) RDW-CV 11.5 - 15.0 % 14.4 Platelet Count 150 - 400 k/uL 162 MPV 9.0 - 12.7 fL 11.6 Neut% % 72.9 Abs Neut (ANC) 1.45 - 7.50 k/uL 5.11 Lymph% % 20.5 Abs Lymph 1.00 - 4.00 k/uL 1.44 Clare% % 5.0 Abs Clare <0.87 k/uL 0.35 Eosin% % 1.3 Abs Eosin <0.46 k/uL 0.09 Baso% % 0.3 Abs Baso <0.11 k/uL <0.03 Nucleated Reds 0 /100 WBC 0.0 Absolute nRBC <0.01 k/uL <0.01 Diff Type Auto Diff Protein, Total 6.3 - 8.0 g/dL 7.4 Albumin 3.9 - 4.9 g/dL 4.2 Calcium 8.5 - 10.2 mg/dL 9.9 Bilirubin, Total 0.2 - 1.3 mg/dL 0.5 Alkaline Phosphatase 32 - 117 U/L 85 AST 13 - 35 U/L 22 Glucose 74 - 99 mg/dL 335 (H) BUN 7 - 21 mg/dL 21 Creatinine 0.58 - 0.96 mg/dL 0.93 Sodium 136 - 144 mmol/L 136 Potassium 3.7 - 5.1 mmol/L 4.3 Chloride 97 - 105 mmol/L 100 CO2 22 - 30 mmol/L 20 (L) Anion Gap 9 - 18 mmol/L 16 ALT 7 - 38 U/L 23 eGFR- >60 eGFR-All Other Races . >60 TSH 0.400 - 5.500 uU/mL 2.980 Component Latest Ref Rng AND Units 06/09/2015 10/14/2015 02/09/2016 05/23/2016 08/26/2016 Hemoglobin A1C 4.3 - 5.6 % 7.3 (H) 6.9 (H) 8.2 (H) 8.9 (H) 8.5 (H) Estimated Average Glucose mg/dL 163 151 189 209 197 ASSESSMENT AND PLAN: Encounter Diagnosis ICD-10-CM 1. Contact dermatitis due to adhesive bandage L25.8 hydrocortisone 2.5 % cream 2. History of tracheostomy Z98.890 3. Snoring R06.83 since trach removed; sleep study after tracheostomy closed 4. Uncontrolled type 2 diabetes mellitus without complication, with long-term current use of insulin (HCC) E11.65 LIPID PANEL BASIC Z79.4 HGB A1C blood sugar diagnostic (FREESTYLE INSULINX) test strip insulin needles, DISPOSABLE, (PEN NEEDLE) 31 gauge x 5/16 ndle BASIC METABOLIC PNL 5. Diarrhea, unspecified type R19.7 metroNIDAZOLE (FLAGYL) 500 mg tablet 6. Visit for screening mammogram Z12.31 URIEL SCREENING Doing well s/p removal of trach tube. Hole closing without signs of infection. Just has contact dermatitis to adhesive used for holding dressing in place to help seal trach site. Bandage placed with silk tape in office and tape given since cannot afford out of pocket expense. Will follow up at main campus as instructed. Continue present management. Need RX for test strips and pen needles. Flagyl still effective if gets recurrent infection (vaginitis and bowels). Requested for recurrence of symptoms. Above issues addressed with patient. Patient involved in shared decision making for management of her medical issues. History and medications reviewed. Epic updated as needed Refills taken care of and meds adjusted as indicated after reviewed history, exam and labs. Health Maintenance reviewed. Updated record and/or ordered tests as recorded. Encouraged on efforts at healthy diet and regular exercise and adequate sleep. The majority of the visit was spent counseling and/or coordinating care for the patient. [id number] time was at least minutes. Tiff Pearson MD CNOV Observed: 07/24/2017 Status: COMPLETED Source: [facility] 11:20 AM [facility] REPOSITORY Office Visit ([facility]) CHRISTOPHER HOBSON ([id number]) 1960 F [facility] Date Time Provider Department 07/24/17 11:20 AM [facility] During your visit today, we recorded the following information about you: Pulse Respiration Blood pressure Weight 77/minute 16/minute 138/80 93 kg Tiff Pearson MD 08/05/2017 8:32 PM Signed Patient presents with: Recheck SUBJECTIVE: Christopher Hobson is a 56 year old year old lady here today for follow up appointment for review of medical conditions. Was booked for follow up on removal of trach but had several concerns to address. S/p trach removal. healing well. Not needing oxygen. Sore from tape. Using paper tape now. Had tried a different tape at [facility]--had tolerated well. Told to keep covered till hole closed. Need for refill of Flagyl for recurrence of diarrhea and vaginal irritation discussed. 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 - Unspecified migraine 1998 Current Outpatient Prescriptions: atorvastatin (LIPITOR) 40 mg tablet Take 1 tablet by mouth once daily. blood sugar diagnostic (FREESTYLE INSULINX) test strip Test blood sugar(s) 4 times daily and as needed. Dx: Type 2 DM - Uncontrolled . Insulin: Yes insulin needles, DISPOSABLE, (PEN NEEDLE) 31 gauge x 5/16 ndle Use one needle per dose (Lantus and Humalog). 5 per day. omeprazole (PRILOSEC) 20 mg capsule Take 1 capsule by mouth daily before breakfast. 1/2 hr before meal. Adhesive Tape (DURAPORE SURGICAL) 2 X 10 -yard tape Use for dressings for healing tracheostomy site. hydrocortisone 2.5 % cream Apply 1 application to affected area twice daily as needed. Location: neck (reaction to tape adhesive) metroNIDAZOLE (FLAGYL) 500 mg tablet Take 1 tablet by mouth three times daily. DULoxetine (CYMBALTA) 60 mg capsule Take 1 capsule by mouth once daily. meloxicam (MOBIC) 7.5 mg tablet TAKE ONE TABLET BY MOUTH EVERY DAY ON a full stomach guaiFENesin (MUCINEX) 600 mg 12 hr tablet Take 1 tablet by mouth twice daily. doxycycline monohydrate (MONODOX) 100 mg capsule Take 1 capsule by mouth twice daily. Benzonatate (TESSALON) 200 mg capsule Take 1 capsule by mouth twice daily as needed for Cough. cetirizine (ZYRTEC) 10 mg tablet Take 1 tablet by mouth once daily. fluticasone (FLONASE) 50 mcg/actuation nasal spray Use 2 Sprays in each nostril once daily. Rinse mouth after use. COMPOUNDED PRESCRIPTION Stoma check by [facility] (Z93.2) Ileostomy in place (HCC) miconazole (CADENCE ANTIFUNGAL) 2 % cream Apply 1 application to affected area twice daily. To perirectal and buttocks area blood sugar diagnostic (BLOOD GLUCOSE TEST) test strip Test blood sugar(s) 4 times daily and as needed as directed. Dx: Type 2 DM - Uncontrolled . Insulin: Yes Lancets lancets Test blood sugar(s) 4 times daily as directed. Dx: Type 2 DM - Uncontrolled .65 Insulin: Yes alcohol swabs (SURE-PREP ALCHOLOL PREP PADS) padm Test blood sugars 4 x's daily. Dx: E11.65 Insulin: Yes glimepiride (AMARYL) 2 mg tablet Take 2 tablets by mouth daily with breakfast. traZODone (DESYREL) 100 mg tablet Take 3 tablets by mouth daily at bedtime. ([facility]) Magnesium Chloride (SLOW-MAG) 71.5 mg TbEC Take 1 tablet by mouth once daily. insulin glargine (LANTUS SOLOSTAR) 100 unit/mL (3 mL) inpn Inject 17 Units subcutaneously daily at bedtime. (patient instructed to increase dose, but as of October 17, 2016, had not yet increased) topiramate (TOPAMAX) 100 mg tablet Take 1 tablet by mouth once daily. Per psychiatrist MONIQUE 15 mcg/hour ptwk Apply 1 Patch as directed every Monday. Per Dr. Trevizo melatonin 3 mg Take 2 tablets by mouth daily at bedtime. thiothixene (NAVANE) 2 mg capsule Take 1 capsule by mouth daily at bedtime. Per psychiatry, Lorene Dupree, MARY ipratropium-albuterol (DUONEB) 0.5 mg-3 mg(2.5 mg base)/3 mL nebu Inhale 3 mL as instructed four times daily as needed (wheezing). Use over 5-15minutes per nebulizer. COMPOUNDED PRESCRIPTION Home pulse ox J96.11 budesonide-formoterol (SYMBICORT) 160-4.5 mcg/actuation inhaler Inhale 2 Puffs as instructed twice daily. COMPOUNDED PRESCRIPTION Abdominal binder for ventral hernia K43.9 VRAYLAR 3 mg cap Take 3 mg by mouth daily at bedtime. white petrolatum-mineral oil (EUCERIN) cream Apply 1 application to affected area as needed for Dry Skin (all dry skin areas). COMPOUNDED PRESCRIPTION Bed childs (R26.2) Difficulty ambulating due to knee COMPOUNDED PRESCRIPTION Wheel chair (R26.2) Difficulty ambulating due to knee COMPOUNDED PRESCRIPTION Please perform nocturnal oximetry on 5 lpm O2 via trach mask. Please fax results to [phone]. DX: Chronic hypoxemic respiratory failure, J96.11. triamcinolone acetonide (KENALOG) 0.1 % cream Apply 1 application to affected area three times daily. Apply sparingly to area for rash/itching till rash resolves. For contact dermatitis sodium chloride (SALINE MIST) 0.65 % nasal spray Use 1 [place] in the nose as needed for Cold/Allergy Symptoms. Dispense 1 bottle (not 1 ml) COMPOUNDED PRESCRIPTION ADHESIVE REMOVER FOR COLOSTOMY BAG REMOVAL DX Z93.3 COMPOUNDED PRESCRIPTION Back to previous mode of oxygen (LOX) 2L daytime, 3L at night. Lubricants (K-Y LUBRICATING) gel Apply 1 application to affected area as needed (Use as needed for Tracheostomy changes). amantadine HCl (SYMMETREL) 100 mg capsule Take 2 capsules by mouth twice daily. (Dr. Dupree) COMPOUNDED PRESCRIPTION Hand held shower. Needs to sit while showering and use hand held shower. (R53.81) Physical deconditioning; (R26.89) Difficulty balancing when reaching No current facility-administered medications for this visit. OBJECTIVE: BP 138/80 Pulse 77 Resp 16 Wt 93 kg (205 lb) SpO2 97% BMI 37.49 kg/m? Patient is alert, oriented times 3, no apparent distress, affect is bright, reactive. Neck: trach site clean and no signs of infection; tiny amount of drainage on the gauze; just a little bit of clear drainage noted in site; dressing with gauze and [place] tape used instead of paper tape. Skin red where tape applied. Some signs of contact dermatitis but also skin irritation from pulling of tape Heart: Regular rate, rhythm, no murmurs, gallops, rubs. Lungs: Clear to auscultation, bilaterally, breathing non labored. Ext: No cyanosis, clubbing, or edema. Component Latest Ref Rng AND Units 06/14/2017 WBC 3.70 - 11.00 k/uL 7.01 RBC 3.90 - 5.20 m/uL 4.28 Hemoglobin 11.5 - 15.5 g/dL 11.8 Hematocrit 36.0 - 46.0 % 39.6 MCV 80.0 - 100.0 fL 92.5 MCH 26.0 - 34.0 pG 27.6 MCHC 30.5 - 36.0 g/dL 29.8 (L) RDW-CV 11.5 - 15.0 % 14.4 Platelet Count 150 - 400 k/uL 162 MPV 9.0 - 12.7 fL 11.6 Neut% % 72.9 Abs Neut (ANC) 1.45 - 7.50 k/uL 5.11 Lymph% % 20.5 Abs Lymph 1.00 - 4.00 k/uL 1.44 Clare% % 5.0 Abs Clare <0.87 k/uL 0.35 Eosin% % 1.3 Abs Eosin <0.46 k/uL 0.09 Baso% % 0.3 Abs Baso <0.11 k/uL <0.03 Nucleated Reds 0 /100 WBC 0.0 Absolute nRBC <0.01 k/uL <0.01 Diff Type Auto Diff Protein, Total 6.3 - 8.0 g/dL 7.4 Albumin 3.9 - 4.9 g/dL 4.2 Calcium 8.5 - 10.2 mg/dL 9.9 Bilirubin, Total 0.2 - 1.3 mg/dL 0.5 Alkaline Phosphatase 32 - 117 U/L 85 AST 13 - 35 U/L 22 Glucose 74 - 99 mg/dL 335 (H) BUN 7 - 21 mg/dL 21 Creatinine 0.58 - 0.96 mg/dL 0.93 Sodium 136 - 144 mmol/L 136 Potassium 3.7 - 5.1 mmol/L 4.3 Chloride 97 - 105 mmol/L 100 CO2 22 - 30 mmol/L 20 (L) Anion Gap 9 - 18 mmol/L 16 ALT 7 - 38 U/L 23 eGFR- >60 eGFR-All Other Races . >60 TSH 0.400 - 5.500 uU/mL 2.980 Component Latest Ref Rng AND Units 06/09/2015 10/14/2015 02/09/2016 05/23/2016 08/26/2016 Hemoglobin A1C 4.3 - 5.6 % 7.3 (H) 6.9 (H) 8.2 (H) 8.9 (H) 8.5 (H) Estimated Average Glucose mg/dL 163 151 189 209 197 ASSESSMENT AND PLAN: Encounter Diagnosis ICD-10-CM 1. Contact dermatitis due to adhesive bandage L25.8 hydrocortisone 2.5 % cream 2. History of tracheostomy Z98.890 3. Snoring R06.83 since trach removed; sleep study after tracheostomy closed 4. Uncontrolled type 2 diabetes mellitus without complication, with long-term current use of insulin (HCC) E11.65 LIPID PANEL BASIC Z79.4 HGB A1C blood sugar diagnostic (FREESTYLE INSULINX) test strip insulin needles, DISPOSABLE, (PEN NEEDLE) 31 gauge x 5/16 ndle BASIC METABOLIC PNL 5. Diarrhea, unspecified type R19.7 metroNIDAZOLE (FLAGYL) 500 mg tablet 6. Visit for screening mammogram Z12.31 URIEL SCREENING Doing well s/p removal of trach tube. Hole closing without signs of infection. Just has contact dermatitis to adhesive used for holding dressing in place to help seal trach site. Bandage placed with silk tape in office and tape given since cannot afford out of pocket expense. Will follow up at main campus as instructed. Continue present management. Need RX for test strips and pen needles. Flagyl still effective if gets recurrent infection (vaginitis and bowels). Requested for recurrence of symptoms. Above issues addressed with patient. Patient involved in shared decision making for management of her medical issues. History and medications reviewed. Epic updated as needed Refills taken care of and meds adjusted as indicated after reviewed history, exam and labs. Health Maintenance reviewed. Updated record and/or ordered tests as recorded. Encouraged on efforts at healthy diet and regular exercise and adequate sleep. The majority of the visit was spent counseling and/or coordinating care for the patient. Lvdt-[id number] time was at least minutes. Tiff Pearson MD Referring Provider: SELF [[id number]] Allergies As of Date: 07/24/2017 Noted Allergy Reaction CEPHALOSPORINS 04/03/2003 Comments: itching Cherries [Other] 04/03/2003 Comments: angioedema and tongue blisters CIPROFLOXACIN 09/11/2016 10 - Anaphylaxis Comments: It was used with flagyl at the same time so uknown which is the cause CODEINE 04/03/2003 Comments: rash swelling DICLOFENAC 08/28/2003 Comments: rash DILAUDID (HYDROMORPHONE (BULK)) 06/10/2015 9 - Itching FLAGYL (METRONIDAZOLE HCL) 09/11/2016 10 - Anaphylaxis Comments: It was used with flagyl at the same time so uknown which is the cause Philomena [Other] 04/03/2003 Comments: angioedematous tongue and blisters LYRICA (PREGABALIN) 07/04/2017 7 - Swelling OPIOIDS - MORPHINE ANALOGUES 08/28/2003 Comments: rash Pears [Other] 10/09/2003 PENICILLINS 04/03/2003 10 - Anaphylaxis Comments: ?anaphylaxis, patient tolerates zosyn PERCOCET (OXYCODONE-ACETAMINOPHEN)08/13/2004 9 - Itching SOAP 05/30/2006 VICODIN (HYDROCODONE-ACETAMINOPHE*05/21/2009 2 - Rash ZITHROMAX (AZITHROMYCIN) 03/24/2016 2 - Rash Date Reviewed: 07/24/2017 Reviewed by: Nargis Jennings Pneumatic Systems Operator - Fully Assessed Reason for Visit: Recheck [92] Primary Visit Diagnosis:Contact dermatitis due to adhesive bandage [L25.8] Other Visit Diagnoses:History of tracheostomy [Z98.890] Snoring [R06.83] Comment:since trach removed; sleep study after tracheostomy closed Uncontrolled type 2 diabetes mellitus without complication, with long-term current use of insulin (HCC) [E11.65, Z79.4] Diarrhea, unspecified type [R19.7] Visit for screening mammogram [Z12.31] Order(s):LIPID PANEL BASIC [SQLIPB] Order #: [id number]. #:[id number] HGB A1C [ESNQA8R] Order #: [id number]. #:[id number] URIEL SCREENING [[id number]] Order #: [id number] FUTURE atorvastatin (LIPITOR) 40 mg tabletTake 1 tablet by mouth once daily.Disp: 30 tabletRfl: 11 blood sugar diagnostic (FREESTYLE INSULINX) test stripTest blood sugar(s) 4 times daily and as needed. Dx: Type 2 DM - Uncontrolled E11.65 Insulin: YesDisp: 150 StripRfl: 11 insulin needles, DISPOSABLE, (PEN NEEDLE) 31 gauge x 5/16 ndleUse one needle per dose (Lantus and Humalog). 5 per day.Disp: 150 EachRfl: 11 omeprazole (PRILOSEC) 20 mg capsuleTake 1 capsule by mouth daily before breakfast. 1/2 hr before meal.Disp: 90 capsuleRfl: 3 Adhesive Tape ([employer]) 2 X 10 -yard tapeUse for dressings for healing tracheostomy site.Disp: 1 EachRfl: 1 BASIC METABOLIC PNL [SQBMP] Order #: [id number]. #:[id number] hydrocortisone 2.5 % creamApply 1 application to affected area twice daily as needed. Location: neck (reaction to tape adhesive)Disp: 28 gRfl: 0 metroNIDAZOLE (FLAGYL) 500 mg tabletTake 1 tablet by mouth three times daily.Disp: 30 tabletRfl: 0 Prescriptions as of 07/24/2017 Sig: ATORVASTATIN 40 MG TABLET Take 1 tablet by mouth once d* BLOOD SUGAR DIAGNOSTIC STRIPS Test blood sugar(s) 4 times d* PEN NEEDLE, DIABETIC 31 GAUGE* Use one needle per dose (Lant* OMEPRAZOLE 20 MG CAPSULE,DARREN* Take 1 capsule by mouth daily* ADHESIVE TAPE 2 X 10 YARD Use for dressings for healing* HYDROCORTISONE 2.5 % TOPICAL * Apply 1 application to affect* METRONIDAZOLE 500 MG TABLET Take 1 tablet by mouth three * DULOXETINE 60 MG CAPSULE,DARREN* Take 1 capsule by mouth once * MELOXICAM 7.5 MG TABLET TAKE ONE TABLET BY MOUTH EVER* GUAIFENESIN ER 600 MG TABLET,* Take 1 tablet by mouth twice * DOXYCYCLINE MONOHYDRATE 100 M* Take 1 capsule by mouth twice* BENZONATATE 200 MG CAPSULE Take 1 capsule by mouth twice* CETIRIZINE 10 MG TABLET Take 1 tablet by mouth once d* FLUTICASONE 50 MCG/ACTUATION * Use 2 Sprays in each nostril * COMPOUNDED PRESCRIPTION Stoma check by [facility] (Z93.2) * MICONAZOLE NITRATE 2 % TOPICA* Apply 1 application to affect* BLOOD SUGAR DIAGNOSTIC STRIPS Test blood sugar(s) 4 times d* LANCETS Test blood sugar(s) 4 times d* ALCOHOL SWABS Test blood sugars 4 x's daily* GLIMEPIRIDE 2 MG TABLET Take 2 tablets by mouth daily* TRAZODONE 100 MG TABLET Take 3 tablets by mouth daily* MAGNESIUM 71.5 MG (MAGNESIUM * Take 1 tablet by mouth once d* INSULIN GLARGINE (U-100) 100 * Inject 17 Units subcutaneousl* TOPIRAMATE 100 MG TABLET Take 1 tablet by mouth once d* BUTRANS 15 MCG/HOUR TRANSDERM* Apply 1 Patch as directed daniela* MELATONIN 3 MG TABLET Take 2 tablets by mouth daily* THIOTHIXENE 2 MG CAPSULE Take 1 capsule by mouth daily* IPRATROPIUM-ALBUTEROL 0.5 MG-* Inhale 3 mL as instructed fou* COMPOUNDED PRESCRIPTION Home pulse ox J96.11 BUDESONIDE-FORMOTEROL HFA 160* Inhale 2 Puffs as instructed * COMPOUNDED PRESCRIPTION Abdominal binder for ventral * VRAYLAR 3 MG CAPSULE Take 3 mg by mouth daily at b* WHITE PETROLATUM-MINERAL OIL * Apply 1 application to affect* COMPOUNDED PRESCRIPTION Bed childs (R26.2) Difficulty * COMPOUNDED PRESCRIPTION Wheel chair (R26.2) Difficul* COMPOUNDED PRESCRIPTION Please perform nocturnal oxim* TRIAMCINOLONE ACETONIDE 0.1 %* Apply 1 application to affect* SODIUM CHLORIDE 0.65 % NASAL * Use 1 [place] in the nose as ne* COMPOUNDED PRESCRIPTION ADHESIVE REMOVER FOR COLOSTOM* COMPOUNDED PRESCRIPTION Back to previous mode of oxyg* LUBRICANTS TOPICAL GEL Apply 1 application to affect* AMANTADINE HCL 100 MG CAPSULE Take 2 capsules by mouth twic* COMPOUNDED PRESCRIPTION Hand held shower. Needs to s* Problem List As Of Date 07/24/2017 Noted Resolved DEPRESSIVE DISORDER NEC(aka DEPRESSION) [F32.9] INVALID FOR* SCHIZOPHRENIA NEC [295.8] INVALID FOR* More... MALIGNANT NEOPLASM COLON NOS(aka COLON) [C18.9] INVALID FOR* More... More... PEPTIC ULCER NOS [K27.9] INVALID FOR* Tobacco use disorder [F17.200] INVALID FOR*11/18/2011 More... Routine general medical examination at a health*INVALID FOR*02/25/2013 More... MACULAR DEGENERATION NOS [H35.30] INVALID FOR* More... Diabetes mellitus type 2, uncontrolled, without*INVALID FOR* Priority: G More... Class 2 obesity due to excess calories with bod*INVALID FOR*11/08/2016 Priority: H More... HEMATURIA NOS [R31.9] INVALID FOR* More... Hyperlipidemia [E78.5] INVALID FOR* More... HEADACHE [R51] INVALID FOR* Sleep Apnea [G47.30] INVALID FOR* More... Asthma [J45.909] Priority: D More... DM w/o complication type II [E11.9] INVALID FOR* Pain in soft tissues of limb [M79.609] INVALID FOR* Dermatophytosis of nail [B35.1] INVALID FOR* Ventral hernia [K43.9] INVALID FOR* Lunate fracture, closed [S62.123A] INVALID FOR* Acute postoperative respiratory insufficiency [*INVALID FOR*07/19/2016 Priority: C More... Bowel obstruction (HCC) [K56.609] INVALID FOR* Priority: A More... Electrolyte and fluid disorder [E87.8] INVALID FOR*03/03/2015 Priority: I More... Post-op pain [G89.18] INVALID FOR* Priority: G More... Postoperative anemia due to acute blood loss [D*INVALID FOR* Priority: F More... H/O schizophrenia [Z86.59] INVALID FOR* Priority: E More... Hypotension [I95.9] INVALID FOR* Priority: E More... Fever [R50.9] INVALID FOR* Priority: F More... Septic shock due to Escherichia coli (HCC) [A41*INVALID FOR*07/19/2016 Priority: B More... Altered mental status [R41.82] INVALID FOR*12/09/2015 Priority: D More... Hyperbilirubinemia [E80.6] INVALID FOR*03/08/2015 More... Hypernatremia [E87.0] INVALID FOR*03/14/2015 Priority: K More... Skin lesion [L98.9] INVALID FOR* Priority: I More... Mild protein-calorie malnutrition (HCC) [E44.1] INVALID FOR* Priority: K More... Electrolyte imbalance [E87.8] INVALID FOR*07/19/2016 Priority: J More... Physical deconditioning [R53.81] INVALID FOR* Priority: L More... Metabolic acidosis [E87.2] INVALID FOR*03/19/2015 Encephalopathy in sepsis [G93.41] INVALID FOR* More... Acute kidney injury (HCC) [N17.9] INVALID FOR*03/19/2015 More... Small intestinal anastomotic leak [K91.89] INVALID FOR* More... Hypernatremia [E87.0] INVALID FOR*03/19/2015 More... Fistula [L98.8] INVALID FOR* On total parenteral nutrition (TPN) [Z78.9] INVALID FOR* Scruggs catheter dysfunction (HCC) [T82.514A] INVALID FOR* Tracheostomy care (HCC) [Z43.0] INVALID FOR* Magnesium deficiency [E61.2] INVALID FOR* Tracheostomy present (HCC) [Z93.0] INVALID FOR*07/24/2017 Hypomagnesemia [E83.42] INVALID FOR* Hematoma [T14.8XXA] INVALID FOR* SBO (small bowel obstruction) (HCC) [K56.609] INVALID FOR* Ventral hernia with bowel obstruction [K43.6] INVALID FOR* More... 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 BLOOD SUGAR DIAGNOSTIC STRIPS 150 * 11 07/24/2017 Sig: Test blood sugar(s) 4 times daily and as needed. Dx: Type 2 DM - Uncontrolled E11.65 Insulin: Yes PEN NEEDLE, DIABETIC 31 GAUGE X 5/16 150 * 11 07/24/2017 Sig: Use one needle per dose (Lantus and Humalog). 5 per day. OMEPRAZOLE 20 MG CAPSULE,DELAYED REL* 90 c* 3 07/24/2017 Route: ORAL Sig: Take 1 capsule by mouth daily before breakfast. 1/2 hr before meal. ADHESIVE TAPE 2 X 10 YARD 1 Ea* 1 07/24/2017 Class: Print RX Sig: Use for dressings for healing tracheostomy site. HYDROCORTISONE 2.5 % TOPICAL CREAM 28 g 0 07/24/2017 Route: TOPICAL Sig: Apply 1 application to affected area twice daily as needed. Location: neck (reaction to tape adhesive) METRONIDAZOLE 500 MG TABLET 30 t* 0 07/24/2017 Route: ORAL Sig: Take 1 tablet by mouth three times daily. Medications Discontinued During This Encounter atorvastatin (LIPITOR) 40 mg tablet 30 t* 11 08/26/2016 07/24/2017 Route: ORAL Sig: Take 1 tablet by mouth once daily. Disc: Reason for discontinue is not on file. blood sugar diagnostic (FREESTYLE IN* 150 * 11 05/23/2016 07/24/2017 Sig: Test blood sugar(s) 4 times daily and as needed. Dx: Type 2 DM - Uncontrolled E11.65 Insulin: Yes Disc: Reason for discontinue is not on file. insulin needles, DISPOSABLE, (PEN NE* 150 * 11 05/23/2016 07/24/2017 Sig: Use one needle per dose (Lantus and Humalog). 5 per day. Disc: Reason for discontinue is not on file. omeprazole (PRILOSEC) 20 mg capsule 90 c* 3 05/12/2016 07/24/2017 Route: ORAL Sig: Take 1 capsule by mouth daily before breakfast. 1/2 hr before meal. Disc: Reason for discontinue is not on file. metroNIDAZOLE (FLAGYL) 500 mg tablet 30 t* 0 03/17/2017 07/24/2017 Route: ORAL Sig: Take 1 tablet by mouth three times daily. Disc: Reason for discontinue is not on file. COMPOUNDED PRESCRIPTION 1 Ea* 0 08/26/2016 07/24/2017 Class: Print RX Sig: Please perform nocturnal oximetry on 6 lpm trach mask. Dx: chronic hypoxemic respiratory failure J96.11. Please fax results to [phone]. Disc: Reason for discontinue is not on file. COMPOUNDED PRESCRIPTION 1 Kit 0 02/11/2016 07/24/2017 Class: Print RX Sig: Please perform nocturnal pulse oximetry on 3 lpm O2 via trach collar. DX: Chronic hypoxemic respiratory failure, trach dependence Disc: Reason for discontinue is not on file. COMPOUNDED PRESCRIPTION 1 De* 0 09/11/2015 07/24/2017 Class: Print RX Sig: Portable suction device Diagnoses: (Z93.0) Tracheostomy status (HCC);(Z43.0) Tracheostomy care (HCC); (J39.8) Increased tracheal secretions Disc: Reason for discontinue is not on file. COMPOUNDED PRESCRIPTION 1 Ea* 0 06/03/2015 07/24/2017 Class: Print RX Sig: Perform Tracheostomy Care with provided Tracheostomy Kit once daily or as needed for irritated stoma. May change split guaze sponge dressing as needed. Disc: Reason for discontinue is not on file. Foam Bandage (ALLEVYN TRACHEOSTOMY D* 100 * 0 05/28/2015 07/24/2017 Route: TOPICAL Sig: Apply 1 application to affected area twice daily. Disc: Reason for discontinue is not on file. Encounter Status:Closed by TIFF PEARSON MD on 08/05/17 CNPN Observed: 07/24/2017 Status: COMPLETED Source: [place] 12:00 AM [facility] REPOSITORY Telephone ([facility]) CHRISTOPHER HOBSON ([id number]) 1960 F CHT Date Time Provider Department 07/24/17 [facility] During your visit today, we recorded the following information about you: Nick Wright RN 07/24/2017 8:58 AM Signed Patient's calls stating patient got her trach removed 2 weeks ago and is to follow up with you. Would like you to see her for follow- up today or in the next few days. States patient is not on O2 anymore and she needs evaluated to see how she is tolerating that. Please advise. Nick Wright RN Anny Vazquez, RN, RN 07/24/2017 10:48 AM Signed Pt's calling back to check the status of request below. Informed that provider was seeing pts and that he might not receive a call until the end of the day. Tried to make appt with [facility] but insisted that pt see PCP. Mariann Bush 07/24/2017 11:08 AM Signed Same day appointment scheduled. Tiff Pearson MD 07/24/2017 11:32 AM Signed Noted Allergies As of Date: 07/24/2017 Noted Allergy Reaction CEPHALOSPORINS 04/03/2003 Comments: itching Cherries [Other] 04/03/2003 Comments: angioedema and tongue blisters CIPROFLOXACIN 09/11/2016 10 - Anaphylaxis Comments: It was used with flagyl at the same time so uknown which is the cause CODEINE 04/03/2003 Comments: rash swelling DICLOFENAC 08/28/2003 Comments: rash DILAUDID (HYDROMORPHONE (BULK)) 06/10/2015 9 - Itching FLAGYL (METRONIDAZOLE HCL) 09/11/2016 10 - Anaphylaxis Comments: It was used with flagyl at the same time so uknown which is the cause Philomena [Other] 04/03/2003 Comments: angioedematous tongue and blisters LYRICA (PREGABALIN) 07/04/2017 7 - Swelling OPIOIDS - MORPHINE ANALOGUES 08/28/2003 Comments: rash Pears [Other] 10/09/2003 PENICILLINS 04/03/2003 10 - Anaphylaxis Comments: ?anaphylaxis, patient tolerates zosyn PERCOCET (OXYCODONE-ACETAMINOPHEN)08/13/2004 9 - Itching SOAP 05/30/2006 VICODIN (HYDROCODONE-ACETAMINOPHE*05/21/2009 2 - Rash ZITHROMAX (AZITHROMYCIN) 03/24/2016 2 - Rash Date Reviewed: 07/24/2017 Reviewed by: Nargis Jennings Pneumatic Systems Operator - Fully Assessed Reason for Visit: Appointment [186] Prescriptions as of 07/24/2017 Sig: DULOXETINE 60 MG CAPSULE,DARREN* Take 1 capsule by mouth once * MELOXICAM 7.5 MG TABLET TAKE ONE TABLET BY MOUTH EVER* GUAIFENESIN ER 600 MG TABLET,* Take 1 tablet by mouth twice * X METRONIDAZOLE 500 MG TABLET Take 1 tablet by mouth three * DOXYCYCLINE MONOHYDRATE 100 M* Take 1 capsule by mouth twice* BENZONATATE 200 MG CAPSULE Take 1 capsule by mouth twice* CETIRIZINE 10 MG TABLET Take 1 tablet by mouth once d* FLUTICASONE 50 MCG/ACTUATION * Use 2 Sprays in each nostril * COMPOUNDED PRESCRIPTION Stoma check by [facility] (Z93.2) * MICONAZOLE NITRATE 2 % TOPICA* Apply 1 application to affect* BLOOD SUGAR DIAGNOSTIC STRIPS Test blood sugar(s) 4 times d* LANCETS Test blood sugar(s) 4 times d* ALCOHOL SWABS Test blood sugars 4 x's daily* GLIMEPIRIDE 2 MG TABLET Take 2 tablets by mouth daily* TRAZODONE 100 MG TABLET Take 3 tablets by mouth daily* MAGNESIUM 71.5 MG (MAGNESIUM * Take 1 tablet by mouth once d* INSULIN GLARGINE (U-100) 100 * Inject 17 Units subcutaneousl* TOPIRAMATE 100 MG TABLET Take 1 tablet by mouth once d* BUTRANS 15 MCG/HOUR TRANSDERM* Apply 1 Patch as directed daniela* MELATONIN 3 MG TABLET Take 2 tablets by mouth daily* THIOTHIXENE 2 MG CAPSULE Take 1 capsule by mouth daily* IPRATROPIUM-ALBUTEROL 0.5 MG-* Inhale 3 mL as instructed fou* COMPOUNDED PRESCRIPTION Home pulse ox J96.11 X ATORVASTATIN 40 MG TABLET Take 1 tablet by mouth once d* X COMPOUNDED PRESCRIPTION Please perform nocturnal oxim* BUDESONIDE-FORMOTEROL HFA 160* Inhale 2 Puffs as instructed * COMPOUNDED PRESCRIPTION Abdominal binder for ventral * X PEN NEEDLE, DIABETIC 31 GAUGE* Use one needle per dose (Lant* X BLOOD SUGAR DIAGNOSTIC STRIPS Test blood sugar(s) 4 times d* X OMEPRAZOLE 20 MG CAPSULE,DARREN* Take 1 capsule by mouth daily* VRAYLAR 3 MG CAPSULE Take 3 mg by mouth daily at b* WHITE PETROLATUM-MINERAL OIL * Apply 1 application to affect* COMPOUNDED PRESCRIPTION Bed childs (R26.2) Difficulty * COMPOUNDED PRESCRIPTION Wheel chair (R26.2) Difficul* COMPOUNDED PRESCRIPTION Please perform nocturnal oxim* X COMPOUNDED PRESCRIPTION Please perform nocturnal puls* TRIAMCINOLONE ACETONIDE 0.1 %* Apply 1 application to affect* SODIUM CHLORIDE 0.65 % NASAL * Use 1 [place] in the nose as ne* COMPOUNDED PRESCRIPTION ADHESIVE REMOVER FOR COLOSTOM* X COMPOUNDED PRESCRIPTION Portable suction device Diag* COMPOUNDED PRESCRIPTION Back to previous mode of oxyg* LUBRICANTS TOPICAL GEL Apply 1 application to affect* AMANTADINE HCL 100 MG CAPSULE Take 2 capsules by mouth twic* X COMPOUNDED PRESCRIPTION Perform Tracheostomy Care wit* COMPOUNDED PRESCRIPTION Hand held shower. Needs to s* X FOAM BANDAGE 3.5 X 3.5 Apply 1 application to affect* Problem List As Of Date 07/24/2017 Noted Resolved DEPRESSIVE DISORDER NEC(aka DEPRESSION) [F32.9] INVALID FOR* SCHIZOPHRENIA NEC [295.8] INVALID FOR* More... MALIGNANT NEOPLASM COLON NOS(aka COLON) [C18.9] INVALID FOR* More... More... PEPTIC ULCER NOS [K27.9] INVALID FOR* Tobacco use disorder [F17.200] INVALID FOR*11/18/2011 More... Routine general medical examination at a health*INVALID FOR*02/25/2013 More... MACULAR DEGENERATION NOS [H35.30] INVALID FOR* More... Diabetes mellitus type 2, uncontrolled, without*INVALID FOR* Priority: G More... Class 2 obesity due to excess calories with bod*INVALID FOR*11/08/2016 Priority: H More... HEMATURIA NOS [R31.9] INVALID FOR* More... Hyperlipidemia [E78.5] INVALID FOR* More... HEADACHE [R51] INVALID FOR* Sleep Apnea [G47.30] INVALID FOR* More... Asthma [J45.909] Priority: D More... DM w/o complication type II [E11.9] INVALID FOR* Pain in soft tissues of limb [M79.609] INVALID FOR* Dermatophytosis of nail [B35.1] INVALID FOR* Ventral hernia [K43.9] INVALID FOR* Lunate fracture, closed [S62.123A] INVALID FOR* Acute postoperative respiratory insufficiency [*INVALID FOR*07/19/2016 Priority: C More... Bowel obstruction (HCC) [K56.609] INVALID FOR* Priority: A More... Electrolyte and fluid disorder [E87.8] INVALID FOR*03/03/2015 Priority: I More... Post-op pain [G89.18] INVALID FOR* Priority: G More... Postoperative anemia due to acute blood loss [D*INVALID FOR* Priority: F More... H/O schizophrenia [Z86.59] INVALID FOR* Priority: E More... Hypotension [I95.9] INVALID FOR* Priority: E More... Fever [R50.9] INVALID FOR* Priority: F More... Septic shock due to Escherichia coli (HCC) [A41*INVALID FOR*07/19/2016 Priority: B More... Altered mental status [R41.82] INVALID FOR*12/09/2015 Priority: D More... Hyperbilirubinemia [E80.6] INVALID FOR*03/08/2015 More... Hypernatremia [E87.0] INVALID FOR*03/14/2015 Priority: K More... Skin lesion [L98.9] INVALID FOR* Priority: I More... Mild protein-calorie malnutrition (HCC) [E44.1] INVALID FOR* Priority: K More... Electrolyte imbalance [E87.8] INVALID FOR*07/19/2016 Priority: J More... Physical deconditioning [R53.81] INVALID FOR* Priority: L More... Metabolic acidosis [E87.2] INVALID FOR*03/19/2015 Encephalopathy in sepsis [G93.41] INVALID FOR* More... Acute kidney injury (HCC) [N17.9] INVALID FOR*03/19/2015 More... Small intestinal anastomotic leak [K91.89] INVALID FOR* More... Hypernatremia [E87.0] INVALID FOR*03/19/2015 More... Fistula [L98.8] INVALID FOR* On total parenteral nutrition (TPN) [Z78.9] INVALID FOR* Scruggs catheter dysfunction ([facility]) [T82.514A] INVALID FOR* Tracheostomy care ([facility]) [Z43.0] INVALID FOR* Magnesium deficiency [E61.2] INVALID FOR* Tracheostomy present ([facility]) [Z93.0] INVALID FOR*07/24/2017 Hypomagnesemia [E83.42] INVALID FOR* Hematoma [T14.8XXA] INVALID FOR* SBO (small bowel obstruction) ([facility]) [K56.609] INVALID FOR* Ventral hernia with bowel obstruction [K43.6] INVALID FOR* More... 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] INVALID FOR* Complete heart block (HCC) [I44.2] INVALID FOR* Cardiac pacemaker in situ [Z95.0] INVALID FOR* Right bundle branch block [I45.10] INVALID FOR* Hypoalbuminemia [E88.09] INVALID FOR* Hypoproteinemia (HCC) [E77.8] INVALID FOR* VRE bacteremia [R78.81, Z16.21] INVALID FOR* Class 1 obesity due to excess calories with ser*INVALID FOR* Encounter Status:Closed by TIFF PEARSON MD on 07/24/17 DORYN Observed: 07/20/2017 Status: COMPLETED Source: [place] 12:00 AM [facility] REPOSITORY Telephone ([place]) CHRISTOPHER HOBSON ([id number]) 1960 F CHT Date Time Provider Department 07/20/17 KAREL MCNAIR) [place] During your visit today, we recorded the following information about you: Mirna Moreno [facility] 07/20/2017 2:18 PM Signed called asking about some kind of tesst that the pt is supposed to be scheduled to do and he is not quite sure what it is all about. He would like a call back at: [phone] to discuss the test. Karel Mcnair PA-C 07/20/2017 2:32 PM Signed I spoke with him about this issue several times already. Plan for home sleep study once her stoma has healed up in the next few weeks. Allergies As of Date: 07/20/2017 Noted Allergy Reaction CEPHALOSPORINS 04/03/2003 Comments: itching Cherries [Other] 04/03/2003 Comments: angioedema and tongue blisters CIPROFLOXACIN 09/11/2016 10 - Anaphylaxis Comments: It was used with flagyl at the same time so uknown which is the cause CODEINE 04/03/2003 Comments: rash swelling DICLOFENAC 08/28/2003 Comments: rash DILAUDID (HYDROMORPHONE (BULK)) 06/10/2015 9 - Itching FLAGYL (METRONIDAZOLE HCL) 09/11/2016 10 - Anaphylaxis Comments: It was used with flagyl at the same time so uknown which is the cause Philomena [Other] 04/03/2003 Comments: angioedematous tongue and blisters LYRICA (PREGABALIN) 07/04/2017 7 - Swelling OPIOIDS - MORPHINE ANALOGUES 08/28/2003 Comments: rash Pears [Other] 10/09/2003 PENICILLINS 04/03/2003 10 - Anaphylaxis Comments: ?anaphylaxis, patient tolerates zosyn PERCOCET (OXYCODONE-ACETAMINOPHEN)08/13/2004 9 - Itching SOAP 05/30/2006 VICODIN (HYDROCODONE-ACETAMINOPHE*05/21/2009 2 - Rash ZITHROMAX (AZITHROMYCIN) 03/24/2016 2 - Rash Date Reviewed: 07/10/2017 Reviewed by: Karel Deal) Tracee - Fully Assessed Reason for Visit: O2 study [Other] Prescriptions as of 07/20/2017 Sig: DULOXETINE 60 MG CAPSULE,DARREN* Take 1 capsule by mouth once * MELOXICAM 7.5 MG TABLET TAKE ONE TABLET BY MOUTH EVER* GUAIFENESIN ER 600 MG TABLET,* Take 1 tablet by mouth twice * METRONIDAZOLE 500 MG TABLET Take 1 tablet by mouth three * DOXYCYCLINE MONOHYDRATE 100 M* Take 1 capsule by mouth twice* BENZONATATE 200 MG CAPSULE Take 1 capsule by mouth twice* CETIRIZINE 10 MG TABLET Take 1 tablet by mouth once d* FLUTICASONE 50 MCG/ACTUATION * Use 2 Sprays in each nostril * COMPOUNDED PRESCRIPTION Stoma check by [facility] (Z93.2) * MICONAZOLE NITRATE 2 % TOPICA* Apply 1 application to affect* BLOOD SUGAR DIAGNOSTIC STRIPS Test blood sugar(s) 4 times d* LANCETS Test blood sugar(s) 4 times d* ALCOHOL SWABS Test blood sugars 4 x's daily* GLIMEPIRIDE 2 MG TABLET Take 2 tablets by mouth daily* TRAZODONE 100 MG TABLET Take 3 tablets by mouth daily* MAGNESIUM 71.5 MG (MAGNESIUM * Take 1 tablet by mouth once d* INSULIN GLARGINE (U-100) 100 * Inject 17 Units subcutaneousl* TOPIRAMATE 100 MG TABLET Take 1 tablet by mouth once d* BUTRANS 15 MCG/HOUR TRANSDERM* Apply 1 Patch as directed daniela* MELATONIN 3 MG TABLET Take 2 tablets by mouth daily* THIOTHIXENE 2 MG CAPSULE Take 1 capsule by mouth daily* ATORVASTATIN 40 MG TABLET Take 1 tablet by mouth once d* IPRATROPIUM-ALBUTEROL 0.5 MG-* Inhale 3 mL as instructed fou* COMPOUNDED PRESCRIPTION Please perform nocturnal oxim* COMPOUNDED PRESCRIPTION Home pulse ox J96.11 BUDESONIDE-FORMOTEROL HFA 160* Inhale 2 Puffs as instructed * COMPOUNDED PRESCRIPTION Abdominal binder for ventral * PEN NEEDLE, DIABETIC 31 GAUGE* Use one needle per dose (Lant* BLOOD SUGAR DIAGNOSTIC STRIPS Test blood sugar(s) 4 times d* OMEPRAZOLE 20 MG CAPSULE,DARREN* Take 1 capsule by mouth daily* VRAYLAR 3 MG CAPSULE Take 3 mg by mouth daily at b* WHITE PETROLATUM-MINERAL OIL * Apply 1 application to affect* COMPOUNDED PRESCRIPTION Bed childs (R26.2) Difficulty * COMPOUNDED PRESCRIPTION Wheel chair (R26.2) Difficul* COMPOUNDED PRESCRIPTION Please perform nocturnal oxim* COMPOUNDED PRESCRIPTION Please perform nocturnal puls* TRIAMCINOLONE ACETONIDE 0.1 %* Apply 1 application to affect* SODIUM CHLORIDE 0.65 % NASAL * Use 1 [place] in the nose as ne* COMPOUNDED PRESCRIPTION ADHESIVE REMOVER FOR COLOSTOM* COMPOUNDED PRESCRIPTION Portable suction device Diag* COMPOUNDED PRESCRIPTION Back to previous mode of oxyg* LUBRICANTS TOPICAL GEL Apply 1 application to affect* AMANTADINE HCL 100 MG CAPSULE Take 2 capsules by mouth twic* COMPOUNDED PRESCRIPTION Perform Tracheostomy Care wit* COMPOUNDED PRESCRIPTION Hand held shower. Needs to s* FOAM BANDAGE 3.5 X 3.5 Apply 1 application to affect* Problem List As Of Date 07/20/2017 Noted Resolved DEPRESSIVE DISORDER NEC(aka DEPRESSION) [F32.9] INVALID FOR* SCHIZOPHRENIA NEC [295.8] INVALID FOR* More... MALIGNANT NEOPLASM COLON NOS(aka COLON) [C18.9] INVALID FOR* More... More... PEPTIC ULCER NOS [K27.9] INVALID FOR* Tobacco use disorder [F17.200] INVALID FOR*11/18/2011 More... Routine general medical examination at a health*INVALID FOR*02/25/2013 More... MACULAR DEGENERATION NOS [H35.30] INVALID FOR* More... Diabetes mellitus type 2, uncontrolled, without*INVALID FOR* Priority: G More... Class 2 obesity due to excess calories with bod*INVALID FOR*11/08/2016 Priority: H More... HEMATURIA NOS [R31.9] INVALID FOR* More... Hyperlipidemia [E78.5] INVALID FOR* More... HEADACHE [R51] INVALID FOR* Sleep Apnea [G47.30] INVALID FOR* More... Asthma [J45.909] Priority: D More... DM w/o complication type II [E11.9] INVALID FOR* Pain in soft tissues of limb [M79.609] INVALID FOR* Dermatophytosis of nail [B35.1] INVALID FOR* Ventral hernia [K43.9] INVALID FOR* Lunate fracture, closed [S62.123A] INVALID FOR* Acute postoperative respiratory insufficiency [*INVALID FOR*07/19/2016 Priority: C More... Bowel obstruction (HCC) [K56.609] INVALID FOR* Priority: A More... Electrolyte and fluid disorder [E87.8] INVALID FOR*03/03/2015 Priority: I More... Post-op pain [G89.18] INVALID FOR* Priority: G More... Postoperative anemia due to acute blood loss [D*INVALID FOR* Priority: F More... H/O schizophrenia [Z86.59] INVALID FOR* Priority: E More... Hypotension [I95.9] INVALID FOR* Priority: E More... Fever [R50.9] INVALID FOR* Priority: F More... Septic shock due to Escherichia coli (HCC) [A41*INVALID FOR*07/19/2016 Priority: B More... Altered mental status [R41.82] INVALID FOR*12/09/2015 Priority: D More... Hyperbilirubinemia [E80.6] INVALID FOR*03/08/2015 More... Hypernatremia [E87.0] INVALID FOR*03/14/2015 Priority: K More... Skin lesion [L98.9] INVALID FOR* Priority: I More... Mild protein-calorie malnutrition (HCC) [E44.1] INVALID FOR* Priority: K More... Electrolyte imbalance [E87.8] INVALID FOR*07/19/2016 Priority: J More... Physical deconditioning [R53.81] INVALID FOR* Priority: L More... Metabolic acidosis [E87.2] INVALID FOR*03/19/2015 Encephalopathy in sepsis [G93.41] INVALID FOR* More... Acute kidney injury (HCC) [N17.9] INVALID FOR*03/19/2015 More... Small intestinal anastomotic leak [K91.89] INVALID FOR* More... Hypernatremia [E87.0] INVALID FOR*03/19/2015 More... Fistula [L98.8] INVALID FOR* On total parenteral nutrition (TPN) [Z78.9] INVALID FOR* Scruggs catheter dysfunction (HCC) [T82.514A] INVALID FOR* Tracheostomy care (HCC) [Z43.0] INVALID FOR* Magnesium deficiency [E61.2] INVALID FOR* Tracheostomy present (HCC) [Z93.0] INVALID FOR* Hypomagnesemia [E83.42] INVALID FOR* Hematoma [T14.8XXA] INVALID FOR* SBO (small bowel obstruction) (HCC) [K56.609] INVALID FOR* Ventral hernia with bowel obstruction [K43.6] INVALID FOR* More... 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] INVALID FOR* Complete heart block (HCC) [I44.2] INVALID FOR* Cardiac pacemaker in situ [Z95.0] INVALID FOR* Right bundle branch block [I45.10] INVALID FOR* Hypoalbuminemia [E88.09] INVALID FOR* Hypoproteinemia (HCC) [E77.8] INVALID FOR* VRE bacteremia [R78.81, Z16.21] INVALID FOR* Class 1 obesity due to excess calories with ser*INVALID FOR* Follow-up and Disposition History Recorded Encounter Status:Closed by KAREL MCNAIR PA-C on 07/20/17 PROGRESS Observed: 07/10/2017 Status: COMPLETED Source: [place] 1:41 PM [facility] [place] REPOSITORY O ID: [id number] Author: Karel Mcnair ([place]) Service: (none) Author Type: Physician Hay Rake Operator Type: Progress Notes Filed: 07/10/2017 3:58 PM Note Text: Pulmonary Medicine Progress Note: Christopher Hobson [id number] Chief Complaint: Subglottic stenosis, tracheal malacia s/p tracheostomy tube placement. Reason for Visit: Subglottic stenosis, tracheal malacia s/p tracheostomy tube placement. HPI: Christopher Hobson is a 56 year old female former smoker with a history of subglottic stenosis, tracheal malacia s/p tracheostomy tube placement, who presents today for follow-up. Interval Events: -Seen on 07/04/17 and her tracheostomy tube was downsized to a #4 Airlon tracheostomy tube. -She endorses doing well since she the #4 airlon was placed. -She endorses having a cough producing yellow/clear sputum with occasional blood tinged secretions. -She keeps the tracheostomy capped during the day. She is uncapping at night, for humidification. Using 2-3 liters of home oxygen via nasal cannula as needed. -Denies any pain or edema at the stoma site. 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 - Unspecified migraine 1998 FAMILY HISTORY Problem Relation Age of Onset - Pneumonia [OTHER] Mother - Heart Father - Thyroid Daughter - Thyroid Daughter ALLERGIES Allergen Reactions - Cephalosporins itching - Cherries [Other] angioedema and tongue blisters - Ciprofloxacin Anaphylaxis It was used with flagyl at the same time so uknown which is the cause - Codeine rash swelling - Diclofenac rash - Dilaudid [Hydromorp* Itching - Flagyl [Metronidazo* Anaphylaxis It was used with flagyl at the same time so uknown which is the cause - Philomena [Other] angioedematous tongue and blisters - Lyrica [Pregabalin] Swelling - Opioids - Morphine * rash - Pears [Other] - Penicillins Anaphylaxis ?anaphylaxis, patient tolerates zosyn - Percocet [Oxycodone* Itching - Soap - Vicodin [Hydrocodon* Rash - Zithromax [Azithrom* Rash Social History Marital status: Spouse name: Alphonso Years of education: Number of children: 4 Social History Main Topics Smoking status: Former Smoker Packs/day: 2.00 Years: 45.00 Types: Cigarettes Start date: 1965 Quit date: 08/27/2010 Smokeless tobacco: Never Used Alcohol use: No Drug use: Yes Comment: Cocaine abuse, quit before 1999. Sexual activity: Yes Partners with: Male DULoxetine (CYMBALTA) 60 mg capsule Take 1 capsule by mouth once daily. meloxicam (MOBIC) 7.5 mg tablet TAKE ONE TABLET BY MOUTH EVERY DAY ON a full stomach guaiFENesin (MUCINEX) 600 mg 12 hr tablet Take 1 tablet by mouth twice daily. metroNIDAZOLE (FLAGYL) 500 mg tablet Take 1 tablet by mouth three times daily. doxycycline monohydrate (MONODOX) 100 mg capsule Take 1 capsule by mouth twice daily. Benzonatate (TESSALON) 200 mg capsule Take 1 capsule by mouth twice daily as needed for Cough. cetirizine (ZYRTEC) 10 mg tablet Take 1 tablet by mouth once daily. fluticasone (FLONASE) 50 mcg/actuation nasal spray Use 2 Sprays in each nostril once daily. Rinse mouth after use. COMPOUNDED PRESCRIPTION Stoma check by [facility] (Z93.2) Ileostomy in place (HCC) miconazole (CADENCE ANTIFUNGAL) 2 % cream Apply 1 application to affected area twice daily. To perirectal and buttocks area blood sugar diagnostic (BLOOD GLUCOSE TEST) test strip Test blood sugar(s) 4 times daily and as needed as directed. Dx: Type 2 DM - Uncontrolled E11.65 Insulin: Yes Lancets lancets Test blood sugar(s) 4 times daily as directed. Dx: Type 2 DM - Uncontrolled E11.65 Insulin: Yes alcohol swabs (SURE-PREP ALCHOLOL PREP PADS) padm Test blood sugars 4 x's daily. Dx: E11.65 Insulin: Yes glimepiride (AMARYL) 2 mg tablet Take 2 tablets by mouth daily with breakfast. traZODone (DESYREL) 100 mg tablet Take 3 tablets by mouth daily at bedtime. ([facility]) Magnesium Chloride (SLOW-MAG) 71.5 mg TbEC Take 1 tablet by mouth once daily. insulin glargine (LANTUS SOLOSTAR) 100 unit/mL (3 mL) inpn Inject 17 Units subcutaneously daily at bedtime. (patient instructed to increase dose, but as of October 17, 2016, had not yet increased) topiramate (TOPAMAX) 100 mg tablet Take 1 tablet by mouth once daily. Per psychiatrist BUTRANAmilcar 15 mcg/hour ptwk Apply 1 Patch as directed every Monday. Per Dr. Trevizo melatonin 3 mg Take 2 tablets by mouth daily at bedtime. thiothixene (NAVANE) 2 mg capsule Take 1 capsule by mouth daily at bedtime. Per psychiatry, Lorene Dupree NP atorvastatin (LIPITOR) 40 mg tablet Take 1 tablet by mouth once daily. ipratropium-albuterol (DUONEB) 0.5 mg-3 mg(2.5 mg base)/3 mL nebu Inhale 3 mL as instructed four times daily as needed (wheezing). Use over 5-15minutes per nebulizer. COMPOUNDED PRESCRIPTION Please perform nocturnal oximetry on 6 lpm trach mask. Dx: chronic hypoxemic respiratory failure J96.11. Please fax results to [phone]. COMPOUNDED PRESCRIPTION Home pulse ox J96.11 budesonide-formoterol (SYMBICORT) 160-4.5 mcg/actuation inhaler Inhale 2 Puffs as instructed twice daily. COMPOUNDED PRESCRIPTION Abdominal binder for ventral hernia K43.9 insulin needles, DISPOSABLE, (PEN NEEDLE) 31 gauge x 5/16 ndle Use one needle per dose (Lantus and Humalog). 5 per day. blood sugar diagnostic (FREESTYLE INSULINX) test strip Test blood sugar(s) 4 times daily and as needed. Dx: Type 2 DM - Uncontrolled E11.65 Insulin: Yes omeprazole (PRILOSEC) 20 mg capsule Take 1 capsule by mouth daily before breakfast. 1/2 hr before meal. VRAYLAR 3 mg cap Take 3 mg by mouth daily at bedtime. white petrolatum-mineral oil (EUCERIN) cream Apply 1 application to affected area as needed for Dry Skin (all dry skin areas). COMPOUNDED PRESCRIPTION Bed childs (R26.2) Difficulty ambulating due to knee COMPOUNDED PRESCRIPTION Wheel chair (R26.2) Difficulty ambulating due to knee COMPOUNDED PRESCRIPTION Please perform nocturnal oximetry on 5 lpm O2 via trach mask. Please fax results to [phone]. DX: Chronic hypoxemic respiratory failure, J96.11. COMPOUNDED PRESCRIPTION Please perform nocturnal pulse oximetry on 3 lpm O2 via trach collar.DX: Chronic hypoxemic respiratory failure, trach dependence triamcinolone acetonide (KENALOG) 0.1 % cream Apply 1 application to affected area three times daily. Apply sparingly to area for rash/itching till rash resolves. For contact dermatitis sodium chloride (SALINE MIST) 0.65 % nasal spray Use 1 [place] in the nose as needed for Cold/Allergy Symptoms. Dispense 1 bottle (not 1 ml) COMPOUNDED PRESCRIPTION ADHESIVE REMOVER FOR COLOSTOMY BAG REMOVAL DX Z93.3 COMPOUNDED PRESCRIPTION Portable suction device Diagnoses: (Z93.0) Tracheostomy status (HCC);(Z43.0) Tracheostomy care (HCC);(J39.8) Increased tracheal secretions COMPOUNDED PRESCRIPTION Back to previous mode of oxygen (LOX) 2L daytime, 3L at night. Lubricants (K-Y LUBRICATING) gel Apply 1 application to affected area as needed (Use as needed for Tracheostomy changes). amantadine HCl (SYMMETREL) 100 mg capsule Take 2 capsules by mouth twice daily. (Dr. Dupree) COMPOUNDED PRESCRIPTION Perform Tracheostomy Care with provided Tracheostomy Kit once daily or as needed for irritated stoma. May change split guaze sponge dressing as needed. COMPOUNDED PRESCRIPTION Hand held shower. Needs to sit while showering and use hand held shower. (R53.81) Physical deconditioning; (R26.89) Difficulty balancing when reaching Foam Bandage (ALLEVYN TRACHEOSTOMY DRESSING) 3.5 X 3.5 bndg Apply 1 application to affected area twice daily. Labs: Hemoglobin (g/dL) Date Value 06/14/2017 11.8 Hematocrit (%) Date Value 06/14/2017 39.6 WBC (k/uL) Date Value 06/14/2017 7.01 Platelet Count (k/uL) Date Value 06/14/2017 162 CMP: Glucose 335 06/14/2017 BUN 21 06/14/2017 Creatinine, Whole Blood (iSTAT) 0.93 06/14/2017 Sodium 136 06/14/2017 Potassium 4.3 06/14/2017 Chloride 100 06/14/2017 CO2 Content, Venous 20 06/14/2017 Protein, Total 7.4 06/14/2017 Albumin 4.2 06/14/2017 Calcium 9.9 06/14/2017 Alkaline Phosphatase 85 06/14/2017 Bilirubin, Total 0.5 06/14/2017 AST 22 06/14/2017 ALT 23 06/14/2017 This SmartLink requires a parameter for processing. Parameters are variables which can be added to the original SmartLink name. This allows the user to request specific information by giving the SmartLink precise direction. The procedure result smartlink accepts one parameter. This parameter tells the SmartLink how many results to return. Example: .linkname[3 will return the last three results for a given procedure. Imaging: no imaging to review REVIEW OF SYSTEMS PAIN ASSESSMENT: Negative for pain, history of chronic pain, or current treatment for a chronic pain condition. GENERAL: No weight loss, malaise or fevers HEENT: Negative for frequent or significant headaches, No changes in hearing or vision, no nose bleeds or other nasal problems NECK: Negative for lumps, goiter, pain and significant neck swelling RESPIRATORY: See HPI CARDIOVASCULAR: Negative for chest pain, leg swelling, hypertension, CHF or palpitations GI: No nausea, vomiting, or diarrhea MUSCULOSKELETAL: Negative for joint pain or swelling, back pain or muscle pain SKIN: Negative for lesions, rash, and itching HEMATOLOGY/LYMPHOLOGY: Negative for prolonged bleeding, bruising easily or swollen nodes ENDOCRINE: Negative for cold or heat intolerance, polyuria, polydipsia and goiter NEURO: No history of headaches, syncope, paralysis, seizures or tremors BP 138/64 Pulse 82 Temp 36.7 ?C (98 ?F) (Oral) Resp 20 SpO2 95% General Appearance: Well appearing, alert, in no acute distress, well-hydrated, well nourished., Overweight. Skin: Pale appearing female in NAD. Head: Normocephalic, no masses, lesions, tenderness or abnormalities. Eyes: Anicteric sclera. Pupils are equally round and reactive to light. Extraocular movements are intact. . Nose/Sinuses: Nares normal, septum midline, mucosa normal, no drainage or sinus tenderness. Oropharynx: Lips, mucosa, and tongue normal, teeth and gums normal, oropharynx normal. Neck: Supple, no adenopathy; thyroid symmetric, normal size, no bruits. Lungs: Lungs clear to auscultation. No wheezing, rhonchi, rales. Heart: RRR without murmur, gallop, or rubs. No ectopy. Abdomen: Normal abdominal exam, Abdomen soft, non-tender. Bowel sounds normal. No masses, organomegaly. Extremities: No deformities, edema, skin discoloration, clubbing or cyanosis. Good capillary refill. . Musculoskeletal: No joint swelling, deformity, or tenderness. Peripheral Pulses: Normal. Neurologic: Patient sitting in a wheelchair. She is able to walk to the exam table without assistance. Oriented X 3. Impression/Plan: (Z93.0) Tracheostomy tube present (HCC) (primary encounter diagnosis) Comment: The patient tolerated downsizing and capping of a number 4 Airlon tracheostomy tube since 07/04/2017. She denies any increased shortness of breath, cough or wheezing. Saturating well on room air. Plan: the tracheostomy tube was decannulated in the office today. Patient was observed and her SPO2 in percent on room air in a position and lying flat. Once the stoma site is closed, plan to obtain home sleep study to assess for nocturnal desaturation/YENY. For now, use the home oxygen on a when necessary basis. They stated that they had a home pulse oximeter, and they will continue to monitor her SPO2. Patient was advised to present to her local emergency department if she developed worsening pulmonary signs or symptoms. Patient and were agreeable to this plan. 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 The patient is tolerating current trach well able to cap the tracheostomy tube throughout the day. We'll follow up with a home sleep study. Procedure note: The old tracheostomy tube was removed. Dry secretions were removed. Steri-Strips were applied over the stoma. Gauze and silk tape used as dressing. Patient able to phonate well. Assessment and plan were discussed with Dr. Alvarez Signature: Karel Mcnair PA-C Date: July 10, 2017 Time: 1:41 PM CNOV Observed: 07/10/2017 Status: COMPLETED Source: [place] 1:30 PM [facility] REPOSITORY Office Visit ([place]) CHRISTOPHER HOBSON ([id number]) 1960 F [facility] Date Time Provider Department 07/10/17 1:30 PM KG ALVAREZ During your visit today, we recorded the following information about you: Temperature Pulse Respiration Blood pressure 98 degrees 82/minute 20/minute 138/64 Karel Mcnair ([place]) 07/10/2017 3:58 PM Signed Pulmonary Medicine Progress Note: Christopher Hobson [id number] Chief Complaint: Subglottic stenosis, tracheal malacia s/p tracheostomy tube placement. Reason for Visit: Subglottic stenosis, tracheal malacia s/p tracheostomy tube placement. HPI: Christopher Hobson is a 56 year old female former smoker with a history of subglottic stenosis, tracheal malacia s/p tracheostomy tube placement, who presents today for follow-up. Interval Events: -Seen on 07/04/17 and her tracheostomy tube was downsized to a #4 Airlon tracheostomy tube. -She endorses doing well since she the #4 airlon was placed. -She endorses having a cough producing yellow/clear sputum with occasional blood tinged secretions. -She keeps the tracheostomy capped during the day. She is uncapping at night, for humidification. Using 2-3 liters of home oxygen via nasal cannula as needed. -Denies any pain or edema at the stoma site. 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 - Unspecified migraine 1998 FAMILY HISTORY Problem Relation Age of Onset - Pneumonia [OTHER] Mother - Heart Father - Thyroid Daughter - Thyroid Daughter ALLERGIES Allergen Reactions - Cephalosporins itching - Cherries [Other] angioedema and tongue blisters - Ciprofloxacin Anaphylaxis It was used with flagyl at the same time so uknown which is the cause - Codeine rash swelling - Diclofenac rash - Dilaudid [Hydromorp* Itching - Flagyl [Metronidazo* Anaphylaxis It was used with flagyl at the same time so uknown which is the cause - Philomena [Other] angioedematous tongue and blisters - Lyrica [Pregabalin] Swelling - Opioids - Morphine * rash - Pears [Other] - Penicillins Anaphylaxis ?anaphylaxis, patient tolerates zosyn - Percocet [Oxycodone* Itching - Soap - Vicodin [Hydrocodon* Rash - Zithromax [Azithrom* Rash Social History Marital status: Spouse name: Alphonso Years of education: Number of children: 4 Social History Main Topics Smoking status: Former Smoker Packs/day: 2.00 Years: 45.00 Types: Cigarettes Start date: 1965 Quit date: 08/27/2010 Smokeless tobacco: Never Used Alcohol use: No Drug use: Yes Comment: Cocaine abuse, quit before 1999. Sexual activity: Yes Partners with: Male DULoxetine (CYMBALTA) 60 mg capsule Take 1 capsule by mouth once daily. meloxicam (MOBIC) 7.5 mg tablet TAKE ONE TABLET BY MOUTH EVERY DAY ON a full stomach guaiFENesin (MUCINEX) 600 mg 12 hr tablet Take 1 tablet by mouth twice daily. metroNIDAZOLE (FLAGYL) 500 mg tablet Take 1 tablet by mouth three times daily. doxycycline monohydrate (MONODOX) 100 mg capsule Take 1 capsule by mouth twice daily. Benzonatate (TESSALON) 200 mg capsule Take 1 capsule by mouth twice daily as needed for Cough. cetirizine (ZYRTEC) 10 mg tablet Take 1 tablet by mouth once daily. fluticasone (FLONASE) 50 mcg/actuation nasal spray Use 2 Sprays in each nostril once daily. Rinse mouth after use. COMPOUNDED PRESCRIPTION Stoma check by [facility] (Z93.2) Ileostomy in place (HCC) miconazole (CADENCE ANTIFUNGAL) 2 % cream Apply 1 application to affected area twice daily. To perirectal and buttocks area blood sugar diagnostic (BLOOD GLUCOSE TEST) test strip Test blood sugar(s) 4 times daily and as needed as directed. Dx: Type 2 DM - Uncontrolled E11. Insulin: Yes Lancets lancets Test blood sugar(s) 4 times daily as directed. Dx: Type 2 DM - Uncontrolled . Insulin: Yes alcohol swabs (SURE-PREP ALCHOLOL PREP PADS) padm Test blood sugars 4 x's daily. Dx: E11. Insulin: Yes glimepiride (AMARYL) 2 mg tablet Take 2 tablets by mouth daily with breakfast. traZODone (DESYREL) 100 mg tablet Take 3 tablets by mouth daily at bedtime. ([facility] Magnesium Chloride (SLOW-MAG) 71.5 mg TbEC Take 1 tablet by mouth once daily. insulin glargine (LANTUS SOLOSTAR) 100 unit/mL (3 mL) inpn Inject 17 Units subcutaneously daily at bedtime. (patient instructed to increase dose, but as of October 17, 2016, had not yet increased) topiramate (TOPAMAX) 100 mg tablet Take 1 tablet by mouth once daily. Per psychiatrist KACIERANAmilcar 15 mcg/hour ptwk Apply 1 Patch as directed every Monday. Per Dr. Trevizo melatonin 3 mg Take 2 tablets by mouth daily at bedtime. thiothixene (NAVANE) 2 mg capsule Take 1 capsule by mouth daily at bedtime. Per psychiatryLorene, MARY atorvastatin (LIPITOR) 40 mg tablet Take 1 tablet by mouth once daily. ipratropium-albuterol (DUONEB) 0.5 mg-3 mg(2.5 mg base)/3 mL nebu Inhale 3 mL as instructed four times daily as needed (wheezing). Use over 5-15minutes per nebulizer. COMPOUNDED PRESCRIPTION Please perform nocturnal oximetry on 6 lpm trach mask. Dx: chronic hypoxemic respiratory failure J96.11. Please fax results to [phone]. COMPOUNDED PRESCRIPTION Home pulse ox J96.11 budesonide-formoterol (SYMBICORT) 160-4.5 mcg/actuation inhaler Inhale 2 Puffs as instructed twice daily. COMPOUNDED PRESCRIPTION Abdominal binder for ventral hernia K43.9 insulin needles, DISPOSABLE, (PEN NEEDLE) 31 gauge x 5/16 ndle Use one needle per dose (Lantus and Humalog). 5 per day. blood sugar diagnostic (FREESTYLE INSULINX) test strip Test blood sugar(s) 4 times daily and as needed. Dx: Type 2 DM - Uncontrolled E11.65 Insulin: Yes omeprazole (PRILOSEC) 20 mg capsule Take 1 capsule by mouth daily before breakfast. 1/2 hr before meal. VRAYLAR 3 mg cap Take 3 mg by mouth daily at bedtime. white petrolatum-mineral oil (EUCERIN) cream Apply 1 application to affected area as needed for Dry Skin (all dry skin areas). COMPOUNDED PRESCRIPTION Bed childs (R26.2) Difficulty ambulating due to knee COMPOUNDED PRESCRIPTION Wheel chair (R26.2) Difficulty ambulating due to knee COMPOUNDED PRESCRIPTION Please perform nocturnal oximetry on 5 lpm O2 via trach mask. Please fax results to [phone]. DX: Chronic hypoxemic respiratory failure, J96.11. COMPOUNDED PRESCRIPTION Please perform nocturnal pulse oximetry on 3 lpm O2 via trach collar.DX: Chronic hypoxemic respiratory failure, trach dependence triamcinolone acetonide (KENALOG) 0.1 % cream Apply 1 application to affected area three times daily. Apply sparingly to area for rash/itching till rash resolves. For contact dermatitis sodium chloride (SALINE MIST) 0.65 % nasal spray Use 1 [place] in the nose as needed for Cold/Allergy Symptoms. Dispense 1 bottle (not 1 ml) COMPOUNDED PRESCRIPTION ADHESIVE REMOVER FOR COLOSTOMY BAG REMOVAL DX Z93.3 COMPOUNDED PRESCRIPTION Portable suction device Diagnoses: (Z93.0) Tracheostomy status (HCC);(Z43.0) Tracheostomy care (HCC);(J39.8) Increased tracheal secretions COMPOUNDED PRESCRIPTION Back to previous mode of oxygen (LOX) 2L daytime, 3L at night. Lubricants (K-Y LUBRICATING) gel Apply 1 application to affected area as needed (Use as needed for Tracheostomy changes). amantadine HCl (SYMMETREL) 100 mg capsule Take 2 capsules by mouth twice daily. (Dr. Dupree) COMPOUNDED PRESCRIPTION Perform Tracheostomy Care with provided Tracheostomy Kit once daily or as needed for irritated stoma. May change split guaze sponge dressing as needed. COMPOUNDED PRESCRIPTION Hand held shower. Needs to sit while showering and use hand held shower. (R53.81) Physical deconditioning; (R26.89) Difficulty balancing when reaching Foam Bandage (ALLEVYN TRACHEOSTOMY DRESSING) 3.5 X 3.5 bndg Apply 1 application to affected area twice daily. Labs: Hemoglobin (g/dL) Date Value 06/14/2017 11.8 Hematocrit (%) Date Value 06/14/2017 39.6 WBC (k/uL) Date Value 06/14/2017 7.01 Platelet Count (k/uL) Date Value 06/14/2017 162 CMP: Glucose 335 06/14/2017 BUN 21 06/14/2017 Creatinine, Whole Blood (iSTAT) 0.93 06/14/2017 Sodium 136 06/14/2017 Potassium 4.3 06/14/2017 Chloride 100 06/14/2017 CO2 Content, Venous 20 06/14/2017 Protein, Total 7.4 06/14/2017 Albumin 4.2 06/14/2017 Calcium 9.9 06/14/2017 Alkaline Phosphatase 85 06/14/2017 Bilirubin, Total 0.5 06/14/2017 AST 22 06/14/2017 ALT 23 06/14/2017 This SmartLink requires a parameter for processing. Parameters are variables which can be added to the original SmartLink name. This allows the user to request specific information by giving the SmartLink precise direction. The procedure result smartlink accepts one parameter. This parameter tells the SmartLink how many results to return. Example: .linkname[3 will return the last three results for a given procedure. Imaging: no imaging to review REVIEW OF SYSTEMS PAIN ASSESSMENT: Negative for pain, history of chronic pain, or current treatment for a chronic pain condition. GENERAL: No weight loss, malaise or fevers HEENT: Negative for frequent or significant headaches, No changes in hearing or vision, no nose bleeds or other nasal problems NECK: Negative for lumps, goiter, pain and significant neck swelling RESPIRATORY: See HPI CARDIOVASCULAR: Negative for chest pain, leg swelling, hypertension, CHF or palpitations GI: No nausea, vomiting, or diarrhea MUSCULOSKELETAL: Negative for joint pain or swelling, back pain or muscle pain SKIN: Negative for lesions, rash, and itching HEMATOLOGY/LYMPHOLOGY: Negative for prolonged bleeding, bruising easily or swollen nodes ENDOCRINE: Negative for cold or heat intolerance, polyuria, polydipsia and goiter NEURO: No history of headaches, syncope, paralysis, seizures or tremors BP 138/64 Pulse 82 Temp 36.7 ?C (98 ?F) (Oral) Resp 20 SpO2 95% General Appearance: Well appearing, alert, in no acute distress, well-hydrated, well nourished., Overweight. Skin: Pale appearing female in NAD. Head: Normocephalic, no masses, lesions, tenderness or abnormalities. Eyes: Anicteric sclera. Pupils are equally round and reactive to light. Extraocular movements are intact. . Nose/Sinuses: Nares normal, septum midline, mucosa normal, no drainage or sinus tenderness. Oropharynx: Lips, mucosa, and tongue normal, teeth and gums normal, oropharynx normal. Neck: Supple, no adenopathy; thyroid symmetric, normal size, no bruits. Lungs: Lungs clear to auscultation. No wheezing, rhonchi, rales. Heart: RRR without murmur, gallop, or rubs. No ectopy. Abdomen: Normal abdominal exam, Abdomen soft, non-tender. Bowel sounds normal. No masses, organomegaly. Extremities: No deformities, edema, skin discoloration, clubbing or cyanosis. Good capillary refill. . Musculoskeletal: No joint swelling, deformity, or tenderness. Peripheral Pulses: Normal. Neurologic: Patient sitting in a wheelchair. She is able to walk to the exam table without assistance. Oriented X 3. Impression/Plan: (Z93.0) Tracheostomy tube present ([facility]) (primary encounter diagnosis) Comment: The patient tolerated downsizing and capping of a number 4 Airlon tracheostomy tube since 07/04/2017. She denies any increased shortness of breath, cough or wheezing. Saturating well on room air. Plan: the tracheostomy tube was decannulated in the office today. Patient was observed and her SPO2 in percent on room air in a position and lying flat. Once the stoma site is closed, plan to obtain home sleep study to assess for nocturnal desaturation/YENY. For now, use the home oxygen on a when necessary basis. They stated that they had a home pulse oximeter, and they will continue to monitor her SPO2. Patient was advised to present to her local emergency department if she developed worsening pulmonary signs or symptoms. Patient and were agreeable to this plan. 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 The patient is tolerating current trach well able to cap the tracheostomy tube throughout the day. We'll follow up with a home sleep study. Procedure note: The old tracheostomy tube was removed. Dry secretions were removed. Steri-Strips were applied over the stoma. Gauze and silk tape used as dressing. Patient able to phonate well. Assessment and plan were discussed with Dr. Alvarez Signature: Karel Mcnair PA-C Date: July 10, 2017 Time: 1:41 PM Karel Mcnair ([place]) 07/10/2017 2:09 PM Signed Keep the dressing dry for the first 24 hours. Then change the outside dressing every day with gauze and tape. Home pulse oximetry should read 92% or higher. Use home oxgen via nasal cannula at 2 liters if pulse oximetry is less than 92%. Will send order for home sleep study to [facility] in [place] per patient request. Referring Provider: KG ALVAREZ [[id number]] Allergies As of Date: 07/10/2017 Noted Allergy Reaction CEPHALOSPORINS 04/03/2003 Comments: itching Cherries [Other] 04/03/2003 Comments: angioedema and tongue blisters CIPROFLOXACIN 09/11/2016 10 - Anaphylaxis Comments: It was used with flagyl at the same time so uknown which is the cause CODEINE 04/03/2003 Comments: rash swelling DICLOFENAC 08/28/2003 Comments: rash DILAUDID (HYDROMORPHONE (BULK)) 06/10/2015 9 - Itching FLAGYL (METRONIDAZOLE HCL) 09/11/2016 10 - Anaphylaxis Comments: It was used with flagyl at the same time so uknown which is the cause Philomena [Other] 04/03/2003 Comments: angioedematous tongue and blisters LYRICA (PREGABALIN) 07/04/2017 7 - Swelling OPIOIDS - MORPHINE ANALOGUES 08/28/2003 Comments: rash Pears [Other] 10/09/2003 PENICILLINS 04/03/2003 10 - Anaphylaxis Comments: ?anaphylaxis, patient tolerates zosyn PERCOCET (OXYCODONE-ACETAMINOPHEN)08/13/2004 9 - Itching SOAP 05/30/2006 VICODIN (HYDROCODONE-ACETAMINOPHE*05/21/2009 2 - Rash ZITHROMAX (AZITHROMYCIN) 03/24/2016 2 - Rash Date Reviewed: 07/10/2017 Reviewed by: Karel Mcnair ([place]) - Fully Assessed Primary Visit Diagnosis:Tracheostomy tube present ([facility]) [Z93.0] Other Visit Diagnosis: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] Prescriptions as of 07/10/2017 Sig: DULOXETINE 60 MG CAPSULE,DARREN* Take 1 capsule by mouth once * MELOXICAM 7.5 MG TABLET TAKE ONE TABLET BY MOUTH EVER* GUAIFENESIN ER 600 MG TABLET,* Take 1 tablet by mouth twice * METRONIDAZOLE 500 MG TABLET Take 1 tablet by mouth three * DOXYCYCLINE MONOHYDRATE 100 M* Take 1 capsule by mouth twice* BENZONATATE 200 MG CAPSULE Take 1 capsule by mouth twice* CETIRIZINE 10 MG TABLET Take 1 tablet by mouth once d* FLUTICASONE 50 MCG/ACTUATION * Use 2 Sprays in each nostril * COMPOUNDED PRESCRIPTION Stoma check by [facility] (Z93.2) * MICONAZOLE NITRATE 2 % TOPICA* Apply 1 application to affect* BLOOD SUGAR DIAGNOSTIC STRIPS Test blood sugar(s) 4 times d* LANCETS Test blood sugar(s) 4 times d* ALCOHOL SWABS Test blood sugars 4 x's daily* GLIMEPIRIDE 2 MG TABLET Take 2 tablets by mouth daily* TRAZODONE 100 MG TABLET Take 3 tablets by mouth daily* MAGNESIUM 71.5 MG (MAGNESIUM * Take 1 tablet by mouth once d* INSULIN GLARGINE (U-100) 100 * Inject 17 Units subcutaneousl* TOPIRAMATE 100 MG TABLET Take 1 tablet by mouth once d* BUTRANS 15 MCG/HOUR TRANSDERM* Apply 1 Patch as directed daniela* MELATONIN 3 MG TABLET Take 2 tablets by mouth daily* THIOTHIXENE 2 MG CAPSULE Take 1 capsule by mouth daily* ATORVASTATIN 40 MG TABLET Take 1 tablet by mouth once d* IPRATROPIUM-ALBUTEROL 0.5 MG-* Inhale 3 mL as instructed fou* COMPOUNDED PRESCRIPTION Please perform nocturnal oxim* COMPOUNDED PRESCRIPTION Home pulse ox J96.11 BUDESONIDE-FORMOTEROL HFA 160* Inhale 2 Puffs as instructed * COMPOUNDED PRESCRIPTION Abdominal binder for ventral * PEN NEEDLE, DIABETIC 31 GAUGE* Use one needle per dose (Lant* BLOOD SUGAR DIAGNOSTIC STRIPS Test blood sugar(s) 4 times d* OMEPRAZOLE 20 MG CAPSULE,DARREN* Take 1 capsule by mouth daily* VRAYLAR 3 MG CAPSULE Take 3 mg by mouth daily at b* WHITE PETROLATUM-MINERAL OIL * Apply 1 application to affect* COMPOUNDED PRESCRIPTION Bed childs (R26.2) Difficulty * COMPOUNDED PRESCRIPTION Wheel chair (R26.2) Difficul* COMPOUNDED PRESCRIPTION Please perform nocturnal oxim* COMPOUNDED PRESCRIPTION Please perform nocturnal puls* TRIAMCINOLONE ACETONIDE 0.1 %* Apply 1 application to affect* SODIUM CHLORIDE 0.65 % NASAL * Use 1 [place] in the nose as ne* COMPOUNDED PRESCRIPTION ADHESIVE REMOVER FOR COLOSTOM* COMPOUNDED PRESCRIPTION Portable suction device Diag* COMPOUNDED PRESCRIPTION Back to previous mode of oxyg* LUBRICANTS TOPICAL GEL Apply 1 application to affect* AMANTADINE HCL 100 MG CAPSULE Take 2 capsules by mouth twic* COMPOUNDED PRESCRIPTION Perform Tracheostomy Care wit* COMPOUNDED PRESCRIPTION Hand held shower. Needs to s* FOAM BANDAGE 3.5 X 3.5 Apply 1 application to affect* Problem List As Of Date 07/10/2017 Noted Resolved DEPRESSIVE DISORDER NEC(aka DEPRESSION) [F32.9] INVALID FOR* SCHIZOPHRENIA NEC [295.8] INVALID FOR* More... MALIGNANT NEOPLASM COLON NOS(aka COLON) [C18.9] INVALID FOR* More... More... PEPTIC ULCER NOS [K27.9] INVALID FOR* Tobacco use disorder [F17.200] INVALID FOR*11/18/2011 More... Routine general medical examination at a health*INVALID FOR*02/25/2013 More... MACULAR DEGENERATION NOS [H35.30] INVALID FOR* More... Diabetes mellitus type 2, uncontrolled, without*INVALID FOR* Priority: G More... Class 2 obesity due to excess calories with bod*INVALID FOR*11/08/2016 Priority: H More... HEMATURIA NOS [R31.9] INVALID FOR* More... Hyperlipidemia [E78.5] INVALID FOR* More... HEADACHE [R51] INVALID FOR* Sleep Apnea [G47.30] INVALID FOR* More... Asthma [J45.909] Priority: D More... DM w/o complication type II [E11.9] INVALID FOR* Pain in soft tissues of limb [M79.609] INVALID FOR* Dermatophytosis of nail [B35.1] INVALID FOR* Ventral hernia [K43.9] INVALID FOR* Lunate fracture, closed [S62.123A] INVALID FOR* Acute postoperative respiratory insufficiency [*INVALID FOR*07/19/2016 Priority: C More... Bowel obstruction (HCC) [K56.609] INVALID FOR* Priority: A More... Electrolyte and fluid disorder [E87.8] INVALID FOR*03/03/2015 Priority: I More... Post-op pain [G89.18] INVALID FOR* Priority: G More... Postoperative anemia due to acute blood loss [D*INVALID FOR* Priority: F More... H/O schizophrenia [Z86.59] INVALID FOR* Priority: E More... Hypotension [I95.9] INVALID FOR* Priority: E More... Fever [R50.9] INVALID FOR* Priority: F More... Septic shock due to Escherichia coli (HCC) [A41*INVALID FOR*07/19/2016 Priority: B More... Altered mental status [R41.82] INVALID FOR*12/09/2015 Priority: D More... Hyperbilirubinemia [E80.6] INVALID FOR*03/08/2015 More... Hypernatremia [E87.0] INVALID FOR*03/14/2015 Priority: K More... Skin lesion [L98.9] INVALID FOR* Priority: I More... Mild protein-calorie malnutrition (HCC) [E44.1] INVALID FOR* Priority: K More... Electrolyte imbalance [E87.8] INVALID FOR*07/19/2016 Priority: J More... Physical deconditioning [R53.81] INVALID FOR* Priority: L More... Metabolic acidosis [E87.2] INVALID FOR*03/19/2015 Encephalopathy in sepsis [G93.41] INVALID FOR* More... Acute kidney injury (HCC) [N17.9] INVALID FOR*03/19/2015 More... Small intestinal anastomotic leak [K91.89] INVALID FOR* More... Hypernatremia [E87.0] INVALID FOR*03/19/2015 More... Fistula [L98.8] INVALID FOR* On total parenteral nutrition (TPN) [Z78.9] INVALID FOR* Scruggs catheter dysfunction (HCC) [T82.514A] INVALID FOR* Tracheostomy care (HCC) [Z43.0] INVALID FOR* Magnesium deficiency [E61.2] INVALID FOR* Tracheostomy present (HCC) [Z93.0] INVALID FOR* Hypomagnesemia [E83.42] INVALID FOR* Hematoma [T14.8XXA] INVALID FOR* SBO (small bowel obstruction) ([facility]) [K56.609] INVALID FOR* Ventral hernia with bowel obstruction [K43.6] INVALID FOR* More... 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 Then change the outside dressing every day with gauze and tape. Home pulse oximetry should read 92% or higher. Use home oxgen via nasal cannula at 2 liters if pulse oximetry is less than 92%. Will send order for home sleep study to [facility] in [place] per patient request. Follow-up and Disposition History Recorded Encounter Status:Closed by KAREL MCNAIR PA-C on 07/10/17 PING Observed: 07/05/2017 Status: COMPLETED Source: [facility] 12:00 AM [facility] REPOSITORY Telephone ([place]) CHRISTOPHER HOBSON ([id number]) 1960 F CHT Date Time Provider Department 07/05/17 KAREL MCNAIR PA-C During your visit today, we recorded the following information about you: Hanny Loydgraciela [facility] 07/05/2017 3:49 PM Signed called asking how to clean her new smaller placement PH: [phone] Karel Mcnair PA-C 07/05/2017 3:55 PM Signed Justus Vinesty, Please let him know I'm in clinic today and not able to call back. He should clean it the same way they cleaned the prior tracheostomy, with sterile water/saline using the tracheostomy care kits. Hanny Marcano [facility] [place] 07/06/2017 8:49 AM Signed Patient notified. Allergies As of Date: 07/05/2017 Noted Allergy Reaction CEPHALOSPORINS 04/03/2003 Comments: itching Cherries [Other] 04/03/2003 Comments: angioedema and tongue blisters CIPROFLOXACIN 09/11/2016 10 - Anaphylaxis Comments: It was used with flagyl at the same time so uknown which is the cause CODEINE 04/03/2003 Comments: rash swelling DICLOFENAC 08/28/2003 Comments: rash DILAUDID (HYDROMORPHONE (BULK)) 06/10/2015 9 - Itching FLAGYL (METRONIDAZOLE HCL) 09/11/2016 10 - Anaphylaxis Comments: It was used with flagyl at the same time so uknown which is the cause Philomena [Other] 04/03/2003 Comments: angioedematous tongue and blisters LYRICA (PREGABALIN) 07/04/2017 7 - Swelling OPIOIDS - MORPHINE ANALOGUES 08/28/2003 Comments: rash Pears [Other] 10/09/2003 PENICILLINS 04/03/2003 10 - Anaphylaxis Comments: ?anaphylaxis, patient tolerates zosyn PERCOCET (OXYCODONE-ACETAMINOPHEN)08/13/2004 9 - Itching SOAP 05/30/2006 VICODIN (HYDROCODONE-ACETAMINOPHE*05/21/2009 2 - Rash ZITHROMAX (AZITHROMYCIN) 03/24/2016 2 - Rash Date Reviewed: 07/04/2017 Reviewed by: Karel Deal) Tracee - Fully Assessed Reason for Visit: Question [1327] Prescriptions as of 07/05/2017 Sig: DULOXETINE 60 MG CAPSULE,DARREN* Take 1 capsule by mouth once * MELOXICAM 7.5 MG TABLET TAKE ONE TABLET BY MOUTH EVER* GUAIFENESIN ER 600 MG TABLET,* Take 1 tablet by mouth twice * METRONIDAZOLE 500 MG TABLET Take 1 tablet by mouth three * DOXYCYCLINE MONOHYDRATE 100 M* Take 1 capsule by mouth twice* BENZONATATE 200 MG CAPSULE Take 1 capsule by mouth twice* CETIRIZINE 10 MG TABLET Take 1 tablet by mouth once d* FLUTICASONE 50 MCG/ACTUATION * Use 2 Sprays in each nostril * COMPOUNDED PRESCRIPTION Stoma check by [facility] (Z93.2) * MICONAZOLE NITRATE 2 % TOPICA* Apply 1 application to affect* BLOOD SUGAR DIAGNOSTIC STRIPS Test blood sugar(s) 4 times d* LANCETS Test blood sugar(s) 4 times d* ALCOHOL SWABS Test blood sugars 4 x's daily* GLIMEPIRIDE 2 MG TABLET Take 2 tablets by mouth daily* TRAZODONE 100 MG TABLET Take 3 tablets by mouth daily* MAGNESIUM 71.5 MG (MAGNESIUM * Take 1 tablet by mouth once d* INSULIN GLARGINE (U-100) 100 * Inject 17 Units subcutaneousl* TOPIRAMATE 100 MG TABLET Take 1 tablet by mouth once d* BUTRANS 15 MCG/HOUR TRANSDERM* Apply 1 Patch as directed daniela* MELATONIN 3 MG TABLET Take 2 tablets by mouth daily* THIOTHIXENE 2 MG CAPSULE Take 1 capsule by mouth daily* ATORVASTATIN 40 MG TABLET Take 1 tablet by mouth once d* IPRATROPIUM-ALBUTEROL 0.5 MG-* Inhale 3 mL as instructed fou* COMPOUNDED PRESCRIPTION Please perform nocturnal oxim* COMPOUNDED PRESCRIPTION Home pulse ox J96.11 BUDESONIDE-FORMOTEROL HFA 160* Inhale 2 Puffs as instructed * COMPOUNDED PRESCRIPTION Abdominal binder for ventral * PEN NEEDLE, DIABETIC 31 GAUGE* Use one needle per dose (Lant* BLOOD SUGAR DIAGNOSTIC STRIPS Test blood sugar(s) 4 times d* OMEPRAZOLE 20 MG CAPSULE,DARREN* Take 1 capsule by mouth daily* VRAYLAR 3 MG CAPSULE Take 3 mg by mouth daily at b* WHITE PETROLATUM-MINERAL OIL * Apply 1 application to affect* COMPOUNDED PRESCRIPTION Bed childs (R26.2) Difficulty * COMPOUNDED PRESCRIPTION Wheel chair (R26.2) Difficul* COMPOUNDED PRESCRIPTION Please perform nocturnal oxim* COMPOUNDED PRESCRIPTION Please perform nocturnal puls* TRIAMCINOLONE ACETONIDE 0.1 %* Apply 1 application to affect* SODIUM CHLORIDE 0.65 % NASAL * Use 1 [place] in the nose as ne* COMPOUNDED PRESCRIPTION ADHESIVE REMOVER FOR COLOSTOM* COMPOUNDED PRESCRIPTION Portable suction device Diag* COMPOUNDED PRESCRIPTION Back to previous mode of oxyg* LUBRICANTS TOPICAL GEL Apply 1 application to affect* AMANTADINE HCL 100 MG CAPSULE Take 2 capsules by mouth twic* COMPOUNDED PRESCRIPTION Perform Tracheostomy Care wit* COMPOUNDED PRESCRIPTION Hand held shower. Needs to s* FOAM BANDAGE 3.5 X 3.5 Apply 1 application to affect* Problem List As Of Date 07/05/2017 Noted Resolved DEPRESSIVE DISORDER NEC(aka DEPRESSION) [F32.9] INVALID FOR* SCHIZOPHRENIA NEC [295.8] INVALID FOR* More... MALIGNANT NEOPLASM COLON NOS(aka COLON) [C18.9] INVALID FOR* More... More... PEPTIC ULCER NOS [K27.9] INVALID FOR* Tobacco use disorder [F17.200] INVALID FOR*11/18/2011 More... Routine general medical examination at a health*INVALID FOR*02/25/2013 More... MACULAR DEGENERATION NOS [H35.30] INVALID FOR* More... Diabetes mellitus type 2, uncontrolled, without*INVALID FOR* Priority: G More... Class 2 obesity due to excess calories with bod*INVALID FOR*11/08/2016 Priority: H More... HEMATURIA NOS [R31.9] INVALID FOR* More... Hyperlipidemia [E78.5] INVALID FOR* More... HEADACHE [R51] INVALID FOR* Sleep Apnea [G47.30] INVALID FOR* More... Asthma [J45.909] Priority: D More... DM w/o complication type II [E11.9] INVALID FOR* Pain in soft tissues of limb [M79.609] INVALID FOR* Dermatophytosis of nail [B35.1] INVALID FOR* Ventral hernia [K43.9] INVALID FOR* Lunate fracture, closed [S62.123A] INVALID FOR* Acute postoperative respiratory insufficiency [*INVALID FOR*07/19/2016 Priority: C More... Bowel obstruction (HCC) [K56.609] INVALID FOR* Priority: A More... Electrolyte and fluid disorder [E87.8] INVALID FOR*03/03/2015 Priority: I More... Post-op pain [G89.18] INVALID FOR* Priority: G More... Postoperative anemia due to acute blood loss [D*INVALID FOR* Priority: F More... H/O schizophrenia [Z86.59] INVALID FOR* Priority: E More... Hypotension [I95.9] INVALID FOR* Priority: E More... Fever [R50.9] INVALID FOR* Priority: F More... Septic shock due to Escherichia coli (HCC) [A41*INVALID FOR*07/19/2016 Priority: B More... Altered mental status [R41.82] INVALID FOR*12/09/2015 Priority: D More... Hyperbilirubinemia [E80.6] INVALID FOR*03/08/2015 More... Hypernatremia [E87.0] INVALID FOR*03/14/2015 Priority: K More... Skin lesion [L98.9] INVALID FOR* Priority: I More... Mild protein-calorie malnutrition (HCC) [E44.1] INVALID FOR* Priority: K More... Electrolyte imbalance [E87.8] INVALID FOR*07/19/2016 Priority: J More... Physical deconditioning [R53.81] INVALID FOR* Priority: L More... Metabolic acidosis [E87.2] INVALID FOR*03/19/2015 Encephalopathy in sepsis [G93.41] INVALID FOR* More... Acute kidney injury (HCC) [N17.9] INVALID FOR*03/19/2015 More... Small intestinal anastomotic leak [K91.89] INVALID FOR* More... Hypernatremia [E87.0] INVALID FOR*03/19/2015 More... Fistula [L98.8] INVALID FOR* On total parenteral nutrition (TPN) [Z78.9] INVALID FOR* Scruggs catheter dysfunction (HCC) [T82.514A] INVALID FOR* Tracheostomy care (HCC) [Z43.0] INVALID FOR* Magnesium deficiency [E61.2] INVALID FOR* Tracheostomy present (HCC) [Z93.0] INVALID FOR* Hypomagnesemia [E83.42] INVALID FOR* Hematoma [T14.8XXA] INVALID FOR* SBO (small bowel obstruction) (HCC) [K56.609] INVALID FOR* Ventral hernia with bowel obstruction [K43.6] INVALID FOR* More... 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] INVALID FOR* Complete heart block (HCC) [I44.2] INVALID FOR* Cardiac pacemaker in situ [Z95.0] INVALID FOR* Right bundle branch block [I45.10] INVALID FOR* Hypoalbuminemia [E88.09] INVALID FOR* Hypoproteinemia (HCC) [E77.8] INVALID FOR* VRE bacteremia [R78.81, Z16.21] INVALID FOR* Class 1 obesity due to excess calories with ser*INVALID FOR* Follow-up and Disposition History Recorded Encounter Status:Closed by KAREL MCNAIR PA-C on 07/05/17 PROGRESS Observed: 07/04/2017 Status: COMPLETED Source: [place] 10:20 AM [facility] REPOSITORY O ID: [id number] Author: Kg Alvarez Service: (none) Author Type: Physician Type: Progress Notes Filed: 07/05/2017 12:22 PM Note Text: Pulmonary Medicine Progress Note: Christopher Hobson [id number] Chief Complaint: Tracheostomy tube. Reason for Visit: Tracheostomy tube. HPI: Christopher Hobson is a 56 year old female former smoker with a history of tracheostomy tube, who presents today for follow-up. Past medical history of obesity, abdominal surgery status post colostomy bag, paranoid schizophrenia, dyslipidemia, diabetes, peptic ulcer disease, respiratory failure status post tracheostomy placement, subglottic stenosis, tracheal malacia. At the last office visit on 04/17/2017, the plan was to have the patient cap her #4 cuffless Shiley tracheostomy tube as tolerated throughout the day. Interval Events: She endorses having an overall p improvement in her pulmonary signs/symptoms. For example, she is now able to perform light housework. She has been capping her tracheostomy tube everyday from morning until nighttime. She has been requiring less suctioning. Endorses having occasional brown secretions had stoma. Denies increased redness or pain at the stoma site at this time. She notes having swelling of her neck approximately two weeks ago, now resolved which she attributes to Lyrica-discontinued by patient. She denies any CP, palpitations or lower extremity edema. She has a pacemaker in place. Patient using home oxygen only on a when necessary basis. 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 - Unspecified migraine 1998 FAMILY HISTORY Problem Relation Age of Onset - Pneumonia [OTHER] Mother - Heart Father - Thyroid Daughter - Thyroid Daughter ALLERGIES Allergen Reactions - Cephalosporins itching - Cherries [Other] angioedema and tongue blisters - Ciprofloxacin Anaphylaxis It was used with flagyl at the same time so uknown which is the cause - Codeine rash swelling - Diclofenac rash - Dilaudid [Hydromorp* Itching - Flagyl [Metronidazo* Anaphylaxis It was used with flagyl at the same time so uknown which is the cause - Philomena [Other] angioedematous tongue and blisters - Lyrica [Pregabalin] Swelling - Opioids - Morphine * rash - Pears [Other] - Penicillins Anaphylaxis ?anaphylaxis, patient tolerates zosyn - Percocet [Oxycodone* Itching - Soap - Vicodin [Hydrocodon* Rash - Zithromax [Azithrom* Rash Social History Marital status: Spouse name: Alphonso Years of education: Number of children: 4 Social History Main Topics Smoking status: Former Smoker Packs/day: 2.00 Years: 45.00 Types: Cigarettes Start date: 1965 Quit date: 08/27/2010 Smokeless tobacco: Never Used Alcohol use: No Drug use: Yes Comment: Cocaine abuse, quit before 1999. Sexual activity: Yes Partners with: Male DULoxetine (CYMBALTA) 60 mg capsule Take 1 capsule by mouth once daily. meloxicam (MOBIC) 7.5 mg tablet TAKE ONE TABLET BY MOUTH EVERY DAY ON a full stomach guaiFENesin (MUCINEX) 600 mg 12 hr tablet Take 1 tablet by mouth twice daily. metroNIDAZOLE (FLAGYL) 500 mg tablet Take 1 tablet by mouth three times daily. doxycycline monohydrate (MONODOX) 100 mg capsule Take 1 capsule by mouth twice daily. Benzonatate (TESSALON) 200 mg capsule Take 1 capsule by mouth twice daily as needed for Cough. cetirizine (ZYRTEC) 10 mg tablet Take 1 tablet by mouth once daily. fluticasone (FLONASE) 50 mcg/actuation nasal spray Use 2 Sprays in each nostril once daily. Rinse mouth after use. COMPOUNDED PRESCRIPTION Stoma check by [facility] (Z93.2) Ileostomy in place (HCC) miconazole (CADENCE ANTIFUNGAL) 2 % cream Apply 1 application to affected area twice daily. To perirectal and buttocks area blood sugar diagnostic (BLOOD GLUCOSE TEST) test strip Test blood sugar(s) 4 times daily and as needed as directed. Dx: Type 2 DM - Uncontrolled E11.65 Insulin: Yes Lancets lancets Test blood sugar(s) 4 times daily as directed. Dx: Type 2 DM - Uncontrolled E11.65 Insulin: Yes alcohol swabs (SURE-PREP ALCHOLOL PREP PADS) padm Test blood sugars 4 x's daily. Dx: E11.65 Insulin: Yes glimepiride (AMARYL) 2 mg tablet Take 2 tablets by mouth daily with breakfast. traZODone (DESYREL) 100 mg tablet Take 3 tablets by mouth daily at bedtime. ([facility]) Magnesium Chloride (SLOW-MAG) 71.5 mg TbEC Take 1 tablet by mouth once daily. insulin glargine (LANTUS SOLOSTAR) 100 unit/mL (3 mL) inpn Inject 17 Units subcutaneously daily at bedtime. (patient instructed to increase dose, but as of October 17, 2016, had not yet increased) topiramate (TOPAMAX) 100 mg tablet Take 1 tablet by mouth once daily. Per psychiatrist BUTRANS 15 mcg/hour ptwk Apply 1 Patch as directed every Monday. Per Dr. Trevizo melatonin 3 mg Take 2 tablets by mouth daily at bedtime. thiothixene (NAVANE) 2 mg capsule Take 1 capsule by mouth daily at bedtime. Per psychiatry, Lorene Dupree NP atorvastatin (LIPITOR) 40 mg tablet Take 1 tablet by mouth once daily. ipratropium-albuterol (DUONEB) 0.5 mg-3 mg(2.5 mg base)/3 mL nebu Inhale 3 mL as instructed four times daily as needed (wheezing). Use over 5-15minutes per nebulizer. COMPOUNDED PRESCRIPTION Please perform nocturnal oximetry on 6 lpm trach mask. Dx: chronic hypoxemic respiratory failure J96.11. Please fax results to [phone]. COMPOUNDED PRESCRIPTION Home pulse ox J96.11 budesonide-formoterol (SYMBICORT) 160-4.5 mcg/actuation inhaler Inhale 2 Puffs as instructed twice daily. COMPOUNDED PRESCRIPTION Abdominal binder for ventral hernia K43.9 insulin needles, DISPOSABLE, (PEN NEEDLE) 31 gauge x 5/16 ndle Use one needle per dose (Lantus and Humalog). 5 per day. blood sugar diagnostic (FREESTYLE INSULINX) test strip Test blood sugar(s) 4 times daily and as needed. Dx: Type 2 DM - Uncontrolled E11.65 Insulin: Yes omeprazole (PRILOSEC) 20 mg capsule Take 1 capsule by mouth daily before breakfast. 1/2 hr before meal. VRAYLAR 3 mg cap Take 3 mg by mouth daily at bedtime. white petrolatum-mineral oil (EUCERIN) cream Apply 1 application to affected area as needed for Dry Skin (all dry skin areas). COMPOUNDED PRESCRIPTION Bed childs (R26.2) Difficulty ambulating due to knee COMPOUNDED PRESCRIPTION Wheel chair (R26.2) Difficulty ambulating due to knee COMPOUNDED PRESCRIPTION Please perform nocturnal oximetry on 5 lpm O2 via trach mask. Please fax results to [phone]. DX: Chronic hypoxemic respiratory failure, J96.11. COMPOUNDED PRESCRIPTION Please perform nocturnal pulse oximetry on 3 lpm O2 via trach collar.DX: Chronic hypoxemic respiratory failure, trach dependence triamcinolone acetonide (KENALOG) 0.1 % cream Apply 1 application to affected area three times daily. Apply sparingly to area for rash/itching till rash resolves. For contact dermatitis sodium chloride (SALINE MIST) 0.65 % nasal spray Use 1 [place] in the nose as needed for Cold/Allergy Symptoms. Dispense 1 bottle (not 1 ml) COMPOUNDED PRESCRIPTION ADHESIVE REMOVER FOR COLOSTOMY BAG REMOVAL DX Z93.3 COMPOUNDED PRESCRIPTION Portable suction device Diagnoses: (Z93.0) Tracheostomy status (HCC);(Z43.0) Tracheostomy care (HCC);(J39.8) Increased tracheal secretions COMPOUNDED PRESCRIPTION Back to previous mode of oxygen (LOX) 2L daytime, 3L at night. Lubricants (K-Y LUBRICATING) gel Apply 1 application to affected area as needed (Use as needed for Tracheostomy changes). amantadine HCl (SYMMETREL) 100 mg capsule Take 2 capsules by mouth twice daily. (Dr. Dupree) COMPOUNDED PRESCRIPTION Perform Tracheostomy Care with provided Tracheostomy Kit once daily or as needed for irritated stoma. May change split guaze sponge dressing as needed. COMPOUNDED PRESCRIPTION Hand held shower. Needs to sit while showering and use hand held shower. (R53.81) Physical deconditioning; (R26.89) Difficulty balancing when reaching Foam Bandage (ALLEVYN TRACHEOSTOMY DRESSING) 3.5 X 3.5 bndg Apply 1 application to affected area twice daily. Labs: Hemoglobin (g/dL) Date Value 06/14/2017 11.8 Hematocrit (%) Date Value 06/14/2017 39.6 WBC (k/uL) Date Value 06/14/2017 7.01 Platelet Count (k/uL) Date Value 06/14/2017 162 CMP: Glucose 335 06/14/2017 BUN 21 06/14/2017 Creatinine, Whole Blood (iSTAT) 0.93 06/14/2017 Sodium 136 06/14/2017 Potassium 4.3 06/14/2017 Chloride 100 06/14/2017 CO2 Content, Venous 20 06/14/2017 Protein, Total 7.4 06/14/2017 Albumin 4.2 06/14/2017 Calcium 9.9 06/14/2017 Alkaline Phosphatase 85 06/14/2017 Bilirubin, Total 0.5 06/14/2017 AST 22 06/14/2017 ALT 23 06/14/2017 Imaging: No recent imaging to review. REVIEW OF SYSTEMS PAIN ASSESSMENT: Positive for chronic lower back pain GENERAL: See history of present illness HEENT: Negative for frequent or significant headaches, No changes in hearing or vision, no nose bleeds or other nasal problems NECK: See HPI RESPIRATORY: See HPI CARDIOVASCULAR: Negative for chest pain, leg swelling, hypertension, CHF or palpitations GI: No nausea, vomiting, or diarrhea MUSCULOSKELETAL: Positive for chronic back pain SKIN: Negative for lesions, rash, and itching HEMATOLOGY/LYMPHOLOGY: Negative for prolonged bleeding, bruising easily or swollen nodes ENDOCRINE: Negative for cold or heat intolerance, polyuria, polydipsia and goiter NEURO: No history of headaches, syncope, paralysis, seizures or tremors Pulse 79 Temp 37 ?C (98.6 ?F) (Oral) Resp 20 SpO2 96% General Appearance: Well appearing, alert, in no acute distress, well-hydrated, well nourished., Obese. Skin: Pale skin noted. Head: Normocephalic, no masses, lesions, tenderness or abnormalities. Eyes: Anicteric sclera. Pupils are equally round and reactive to light. Extraocular movements are intact. . Nose/Sinuses: Nares normal, septum midline, mucosa normal, no drainage or sinus tenderness. Oropharynx: Lips, mucosa, and tongue normal, teeth and gums normal, oropharynx normal. Neck: #4 cuffless Shiley tracheostomy tube in place. No erythema or calor at stoma. Lungs: Lungs clear to auscultation. No wheezing, rhonchi, rales. Heart: RRR without murmur, gallop, or rubs. No ectopy. Abdomen: Obese. Ostomy bag in place.. Extremities: No deformities, edema, skin discoloration, clubbing or cyanosis. Good capillary refill. . Musculoskeletal: No joint swelling, deformity, or tenderness. Peripheral Pulses: Normal. Neurologic: Oriented X 3. Patient sitting in wheelchair distress. Procedure note: The old tracheostomy tube was removed without difficulty. A new #4 Airlon. tracheostomy was placed using inner obturator. This was secured with a velcro tracheostomy tube snell. The tracheostomy tube was capped. Patient tolerated this change and was able to phonate well. Impression/Plan: (Z93.0) Tracheostomy present ([facility]) (primary encounter diagnosis) Comment: Patient has tolerated capping the #4 cuffless Shiley very well over the last 2 months. Plan: Her tracheostomy tube was downsized to a #4 Airlon. She tolerated this well and this was In the office without any respiratory distress. Plan to have the patient return in approximately 1 week, and if doing well would consider decannulation. There was sent home with a prescription for a backup #4 Airlon tracheostomy tube to be filled with their c home care provider. 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 Plan: We'll see the patient back in approximately 1 week time to evaluate for possible decannulation. If able to decannulate, we may need to do a home nocturnal oximetry study as well as a resting and ambulatory oximetry study to see if she still requires home oxygen. She does have obesity, and suspect undiagnosed YENY. Please see Dr. Alvarez's note below for further impression and plan Signature: Karel Mcnair PA-C Date: July 04, 2017 Time: 10:20 AM I have reviewed and verified the serrato elements of the Mr. Mcnair's findings. I have personally performed a face to face diagnostic evaluation on this patient. I have reviewed and agree with the care plan. History and exam by me shows: pt doing very well capped and seems to be ready to progress to decannulation, less secretions, tolerating capping etc. Will down-size today and reassess O2 requirements- little need for supplemental oxygen during the day. Kg Alvarez MD CNOV Observed: 07/04/2017 Status: COMPLETED Source: [place] 10:00 AM [facility] REPOSITORY Office Visit ([place]) CHRISTOPHER HOBSON ([id number]) 1960 F [facility] Date Time Provider Department 07/04/17 10:00 AM KG ALVAREZ During your visit today, we recorded the following information about you: Temperature Pulse Respiration 98.6 degrees 79/minute 20/minute Kg Alvarez MD 07/05/2017 12:22 PM Signed Pulmonary Medicine Progress Note: Christopher Hobson [id number] Chief Complaint: Tracheostomy tube. Reason for Visit: Tracheostomy tube. HPI: Christopher Hobson is a 56 year old female former smoker with a history of tracheostomy tube, who presents today for follow-up. Past medical history of obesity, abdominal surgery status post colostomy bag, paranoid schizophrenia, dyslipidemia, diabetes, peptic ulcer disease, respiratory failure status post tracheostomy placement, subglottic stenosis, tracheal malacia. At the last office visit on 04/17/2017, the plan was to have the patient cap her #4 cuffless Shiley tracheostomy tube as tolerated throughout the day. Interval Events: She endorses having an overall p improvement in her pulmonary signs/symptoms. For example, she is now able to perform light housework. She has been capping her tracheostomy tube everyday from morning until nighttime. She has been requiring less suctioning. Endorses having occasional brown secretions had stoma. Denies increased redness or pain at the stoma site at this time. She notes having swelling of her neck approximately two weeks ago, now resolved which she attributes to Lyrica-discontinued by patient. She denies any CP, palpitations or lower extremity edema. She has a pacemaker in place. Patient using home oxygen only on a when necessary basis. 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 - Unspecified migraine 1998 FAMILY HISTORY Problem Relation Age of Onset - Pneumonia [OTHER] Mother - Heart Father - Thyroid Daughter - Thyroid Daughter ALLERGIES Allergen Reactions - Cephalosporins itching - Cherries [Other] angioedema and tongue blisters - Ciprofloxacin Anaphylaxis It was used with flagyl at the same time so uknown which is the cause - Codeine rash swelling - Diclofenac rash - Dilaudid [Hydromorp* Itching - Flagyl [Metronidazo* Anaphylaxis It was used with flagyl at the same time so uknown which is the cause - Philomena [Other] angioedematous tongue and blisters - Lyrica [Pregabalin] Swelling - Opioids - Morphine * rash - Pears [Other] - Penicillins Anaphylaxis ?anaphylaxis, patient tolerates zosyn - Percocet [Oxycodone* Itching - Soap - Vicodin [Hydrocodon* Rash - Zithromax [Azithrom* Rash Social History Marital status: Spouse name: Alphonso Years of education: Number of children: 4 Social History Main Topics Smoking status: Former Smoker Packs/day: 2.00 Years: 45.00 Types: Cigarettes Start date: 1965 Quit date: 08/27/2010 Smokeless tobacco: Never Used Alcohol use: No Drug use: Yes Comment: Cocaine abuse, quit before 1999. Sexual activity: Yes Partners with: Male DULoxetine (CYMBALTA) 60 mg capsule Take 1 capsule by mouth once daily. meloxicam (MOBIC) 7.5 mg tablet TAKE ONE TABLET BY MOUTH EVERY DAY ON a full stomach guaiFENesin (MUCINEX) 600 mg 12 hr tablet Take 1 tablet by mouth twice daily. metroNIDAZOLE (FLAGYL) 500 mg tablet Take 1 tablet by mouth three times daily. doxycycline monohydrate (MONODOX) 100 mg capsule Take 1 capsule by mouth twice daily. Benzonatate (TESSALON) 200 mg capsule Take 1 capsule by mouth twice daily as needed for Cough. cetirizine (ZYRTEC) 10 mg tablet Take 1 tablet by mouth once daily. fluticasone (FLONASE) 50 mcg/actuation nasal spray Use 2 Sprays in each nostril once daily. Rinse mouth after use. COMPOUNDED PRESCRIPTION Stoma check by [facility] (Z93.2) Ileostomy in place (HCC) miconazole (CADENCE ANTIFUNGAL) 2 % cream Apply 1 application to affected area twice daily. To perirectal and buttocks area blood sugar diagnostic (BLOOD GLUCOSE TEST) test strip Test blood sugar(s) 4 times daily and as needed as directed. Dx: Type 2 DM - Uncontrolled Insulin: Yes Lancets lancets Test blood sugar(s) 4 times daily as directed. Dx: Type 2 DM - Uncontrolled Insulin: Yes alcohol swabs (SURE-PREP ALCHOLOL PREP PADS) padm Test blood sugars 4 x's daily. Dx: Insulin: Yes glimepiride (AMARYL) 2 mg tablet Take 2 tablets by mouth daily with breakfast. traZODone (DESYREL) 100 mg tablet Take 3 tablets by mouth daily at bedtime. ([facility]) Magnesium Chloride (SLOW-MAG) 71.5 mg TbEC Take 1 tablet by mouth once daily. insulin glargine (LANTUS SOLOSTAR) 100 unit/mL (3 mL) inpn Inject 17 Units subcutaneously daily at bedtime. (patient instructed to increase dose, but as of October 17, 2016, had not yet increased) topiramate (TOPAMAX) 100 mg tablet Take 1 tablet by mouth once daily. Per psychiatrist MONIQUE 15 mcg/hour ptwk Apply 1 Patch as directed every Monday. Per Dr. Trevizo melatonin 3 mg Take 2 tablets by mouth daily at bedtime. thiothixene (NAVANE) 2 mg capsule Take 1 capsule by mouth daily at bedtime. Per psychiatryLorene NP atorvastatin (LIPITOR) 40 mg tablet Take 1 tablet by mouth once daily. ipratropium-albuterol (DUONEB) 0.5 mg-3 mg(2.5 mg base)/3 mL nebu Inhale 3 mL as instructed four times daily as needed (wheezing). Use over 5-15minutes per nebulizer. COMPOUNDED PRESCRIPTION Please perform nocturnal oximetry on 6 lpm trach mask. Dx: chronic hypoxemic respiratory failure J96.11. Please fax results to [phone]. COMPOUNDED PRESCRIPTION Home pulse ox J96.11 budesonide-formoterol (SYMBICORT) 160-4.5 mcg/actuation inhaler Inhale 2 Puffs as instructed twice daily. COMPOUNDED PRESCRIPTION Abdominal binder for ventral hernia K43.9 insulin needles, DISPOSABLE, (PEN NEEDLE) 31 gauge x 5/16 ndle Use one needle per dose (Lantus and Humalog). 5 per day. blood sugar diagnostic (FREESTYLE INSULINX) test strip Test blood sugar(s) 4 times daily and as needed. Dx: Type 2 DM - Uncontrolled E11.65 Insulin: Yes omeprazole (PRILOSEC) 20 mg capsule Take 1 capsule by mouth daily before breakfast. 1/2 hr before meal. VRAYLAR 3 mg cap Take 3 mg by mouth daily at bedtime. white petrolatum-mineral oil (EUCERIN) cream Apply 1 application to affected area as needed for Dry Skin (all dry skin areas). COMPOUNDED PRESCRIPTION Bed childs (R26.2) Difficulty ambulating due to knee COMPOUNDED PRESCRIPTION Wheel chair (R26.2) Difficulty ambulating due to knee COMPOUNDED PRESCRIPTION Please perform nocturnal oximetry on 5 lpm O2 via trach mask. Please fax results to [phone]. DX: Chronic hypoxemic respiratory failure, J96.11. COMPOUNDED PRESCRIPTION Please perform nocturnal pulse oximetry on 3 lpm O2 via trach collar.DX: Chronic hypoxemic respiratory failure, trach dependence triamcinolone acetonide (KENALOG) 0.1 % cream Apply 1 application to affected area three times daily. Apply sparingly to area for rash/itching till rash resolves. For contact dermatitis sodium chloride (SALINE MIST) 0.65 % nasal spray Use 1 [place] in the nose as needed for Cold/Allergy Symptoms. Dispense 1 bottle (not 1 ml) COMPOUNDED PRESCRIPTION ADHESIVE REMOVER FOR COLOSTOMY BAG REMOVAL DX Z93.3 COMPOUNDED PRESCRIPTION Portable suction device Diagnoses: (Z93.0) Tracheostomy status (HCC);(Z43.0) Tracheostomy care (HCC);(J39.8) Increased tracheal secretions COMPOUNDED PRESCRIPTION Back to previous mode of oxygen (LOX) 2L daytime, 3L at night. Lubricants (K-Y LUBRICATING) gel Apply 1 application to affected area as needed (Use as needed for Tracheostomy changes). amantadine HCl (SYMMETREL) 100 mg capsule Take 2 capsules by mouth twice daily. (Dr. Dupree) COMPOUNDED PRESCRIPTION Perform Tracheostomy Care with provided Tracheostomy Kit once daily or as needed for irritated stoma. May change split guaze sponge dressing as needed. COMPOUNDED PRESCRIPTION Hand held shower. Needs to sit while showering and use hand held shower. (R53.81) Physical deconditioning; (R26.89) Difficulty balancing when reaching Foam Bandage (ALLEVYN TRACHEOSTOMY DRESSING) 3.5 X 3.5 bndg Apply 1 application to affected area twice daily. Labs: Hemoglobin (g/dL) Date Value 06/14/2017 11.8 Hematocrit (%) Date Value 06/14/2017 39.6 WBC (k/uL) Date Value 06/14/2017 7.01 Platelet Count (k/uL) Date Value 06/14/2017 162 CMP: Glucose 335 06/14/2017 BUN 21 06/14/2017 Creatinine, Whole Blood (iSTAT) 0.93 06/14/2017 Sodium 136 06/14/2017 Potassium 4.3 06/14/2017 Chloride 100 06/14/2017 CO2 Content, Venous 20 06/14/2017 Protein, Total 7.4 06/14/2017 Albumin 4.2 06/14/2017 Calcium 9.9 06/14/2017 Alkaline Phosphatase 85 06/14/2017 Bilirubin, Total 0.5 06/14/2017 AST 22 06/14/2017 ALT 23 06/14/2017 Imaging: No recent imaging to review. REVIEW OF SYSTEMS PAIN ASSESSMENT: Positive for chronic lower back pain GENERAL: See history of present illness HEENT: Negative for frequent or significant headaches, No changes in hearing or vision, no nose bleeds or other nasal problems NECK: See HPI RESPIRATORY: See HPI CARDIOVASCULAR: Negative for chest pain, leg swelling, hypertension, CHF or palpitations GI: No nausea, vomiting, or diarrhea MUSCULOSKELETAL: Positive for chronic back pain SKIN: Negative for lesions, rash, and itching HEMATOLOGY/LYMPHOLOGY: Negative for prolonged bleeding, bruising easily or swollen nodes ENDOCRINE: Negative for cold or heat intolerance, polyuria, polydipsia and goiter NEURO: No history of headaches, syncope, paralysis, seizures or tremors Pulse 79 Temp 37 ?C (98.6 ?F) (Oral) Resp 20 SpO2 96% General Appearance: Well appearing, alert, in no acute distress, well-hydrated, well nourished., Obese. Skin: Pale skin noted. Head: Normocephalic, no masses, lesions, tenderness or abnormalities. Eyes: Anicteric sclera. Pupils are equally round and reactive to light. Extraocular movements are intact. . Nose/Sinuses: Nares normal, septum midline, mucosa normal, no drainage or sinus tenderness. Oropharynx: Lips, mucosa, and tongue normal, teeth and gums normal, oropharynx normal. Neck: #4 cuffless Shiley tracheostomy tube in place. No erythema or calor at stoma. Lungs: Lungs clear to auscultation. No wheezing, rhonchi, rales. Heart: RRR without murmur, gallop, or rubs. No ectopy. Abdomen: Obese. Ostomy bag in place.. Extremities: No deformities, edema, skin discoloration, clubbing or cyanosis. Good capillary refill. . Musculoskeletal: No joint swelling, deformity, or tenderness. Peripheral Pulses: Normal. Neurologic: Oriented X 3. Patient sitting in wheelchair distress. Procedure note: The old tracheostomy tube was removed without difficulty. A new #4 Airlon. tracheostomy was placed using inner obturator. This was secured with a velcro tracheostomy tube snell. The tracheostomy tube was capped. Patient tolerated this change and was able to phonate well. Impression/Plan: (Z93.0) Tracheostomy present (HCC) (primary encounter diagnosis) Comment: Patient has tolerated capping the #4 cuffless Shiley very well over the last 2 months. Plan: Her tracheostomy tube was downsized to a #4 Airlon. She tolerated this well and this was In the office without any respiratory distress. Plan to have the patient return in approximately 1 week, and if doing well would consider decannulation. There was sent home with a prescription for a backup #4 Airlon tracheostomy tube to be filled with their c home care provider. 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 Plan: We'll see the patient back in approximately 1 week time to evaluate for possible decannulation. If able to decannulate, we may need to do a home nocturnal oximetry study as well as a resting and ambulatory oximetry study to see if she still requires home oxygen. She does have obesity, and suspect undiagnosed YENY. Please see Dr. Alvarez's note below for further impression and plan Signature: Karel Mcnair PA-C Date: July 04, 2017 Time: 10:20 AM I have reviewed and verified the serrato elements of the Mr. Mcnair's findings. I have personally performed a face to face diagnostic evaluation on this patient. I have reviewed and agree with the care plan. History and exam by me shows: pt doing very well capped and seems to be ready to progress to decannulation, less secretions, tolerating capping etc. Will down-size today and reassess O2 requirements- little need for supplemental oxygen during the day. Kg Alvarez MD Referring Provider: KG ALVAREZ [[id number]] Allergies As of Date: 07/04/2017 Noted Allergy Reaction CEPHALOSPORINS 04/03/2003 Comments: itching Cherries [Other] 04/03/2003 Comments: angioedema and tongue blisters CIPROFLOXACIN 09/11/2016 10 - Anaphylaxis Comments: It was used with flagyl at the same time so uknown which is the cause CODEINE 04/03/2003 Comments: rash swelling DICLOFENAC 08/28/2003 Comments: rash DILAUDID (HYDROMORPHONE (BULK)) 06/10/2015 9 - Itching FLAGYL (METRONIDAZOLE HCL) 09/11/2016 10 - Anaphylaxis Comments: It was used with flagyl at the same time so uknown which is the cause Philomena [Other] 04/03/2003 Comments: angioedematous tongue and blisters LYRICA (PREGABALIN) 07/04/2017 7 - Swelling OPIOIDS - MORPHINE ANALOGUES 08/28/2003 Comments: rash Pears [Other] 10/09/2003 PENICILLINS 04/03/2003 10 - Anaphylaxis Comments: ?anaphylaxis, patient tolerates zosyn PERCOCET (OXYCODONE-ACETAMINOPHEN)08/13/2004 9 - Itching SOAP 05/30/2006 VICODIN (HYDROCODONE-ACETAMINOPHE*05/21/2009 2 - Rash ZITHROMAX (AZITHROMYCIN) 03/24/2016 2 - Rash Date Reviewed: 07/04/2017 Reviewed by: Karel Mcnair - Fully Assessed Reason for Visit: Breathing Problem [17] Primary Visit Diagnosis:Tracheostomy present (HCC) [Z93.0] Other Visit Diagnosis: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] Prescriptions as of 07/04/2017 Sig: DULOXETINE 60 MG CAPSULE,DARREN* Take 1 capsule by mouth once * MELOXICAM 7.5 MG TABLET TAKE ONE TABLET BY MOUTH EVER* GUAIFENESIN ER 600 MG TABLET,* Take 1 tablet by mouth twice * METRONIDAZOLE 500 MG TABLET Take 1 tablet by mouth three * DOXYCYCLINE MONOHYDRATE 100 M* Take 1 capsule by mouth twice* BENZONATATE 200 MG CAPSULE Take 1 capsule by mouth twice* CETIRIZINE 10 MG TABLET Take 1 tablet by mouth once d* FLUTICASONE 50 MCG/ACTUATION * Use 2 Sprays in each nostril * COMPOUNDED PRESCRIPTION Stoma check by [facility] (Z93.2) * MICONAZOLE NITRATE 2 % TOPICA* Apply 1 application to affect* BLOOD SUGAR DIAGNOSTIC STRIPS Test blood sugar(s) 4 times d* LANCETS Test blood sugar(s) 4 times d* ALCOHOL SWABS Test blood sugars 4 x's daily* GLIMEPIRIDE 2 MG TABLET Take 2 tablets by mouth daily* TRAZODONE 100 MG TABLET Take 3 tablets by mouth daily* MAGNESIUM 71.5 MG (MAGNESIUM * Take 1 tablet by mouth once d* INSULIN GLARGINE (U-100) 100 * Inject 17 Units subcutaneousl* TOPIRAMATE 100 MG TABLET Take 1 tablet by mouth once d* BUTRANS 15 MCG/HOUR TRANSDERM* Apply 1 Patch as directed daniela* MELATONIN 3 MG TABLET Take 2 tablets by mouth daily* THIOTHIXENE 2 MG CAPSULE Take 1 capsule by mouth daily* ATORVASTATIN 40 MG TABLET Take 1 tablet by mouth once d* IPRATROPIUM-ALBUTEROL 0.5 MG-* Inhale 3 mL as instructed fou* COMPOUNDED PRESCRIPTION Please perform nocturnal oxim* COMPOUNDED PRESCRIPTION Home pulse ox J96.11 BUDESONIDE-FORMOTEROL HFA 160* Inhale 2 Puffs as instructed * COMPOUNDED PRESCRIPTION Abdominal binder for ventral * PEN NEEDLE, DIABETIC 31 GAUGE* Use one needle per dose (Lant* BLOOD SUGAR DIAGNOSTIC STRIPS Test blood sugar(s) 4 times d* OMEPRAZOLE 20 MG CAPSULE,DARREN* Take 1 capsule by mouth daily* VRAYLAR 3 MG CAPSULE Take 3 mg by mouth daily at b* WHITE PETROLATUM-MINERAL OIL * Apply 1 application to affect* COMPOUNDED PRESCRIPTION Bed childs (R26.2) Difficulty * COMPOUNDED PRESCRIPTION Wheel chair (R26.2) Difficul* COMPOUNDED PRESCRIPTION Please perform nocturnal oxim* COMPOUNDED PRESCRIPTION Please perform nocturnal puls* TRIAMCINOLONE ACETONIDE 0.1 %* Apply 1 application to affect* SODIUM CHLORIDE 0.65 % NASAL * Use 1 [place] in the nose as ne* COMPOUNDED PRESCRIPTION ADHESIVE REMOVER FOR COLOSTOM* COMPOUNDED PRESCRIPTION Portable suction device Diag* COMPOUNDED PRESCRIPTION Back to previous mode of oxyg* LUBRICANTS TOPICAL GEL Apply 1 application to affect* AMANTADINE HCL 100 MG CAPSULE Take 2 capsules by mouth twic* COMPOUNDED PRESCRIPTION Perform Tracheostomy Care wit* COMPOUNDED PRESCRIPTION Hand held shower. Needs to s* FOAM BANDAGE 3.5 X 3.5 Apply 1 application to affect* Problem List As Of Date 07/04/2017 Noted Resolved DEPRESSIVE DISORDER NEC(aka DEPRESSION) [F32.9] INVALID FOR* SCHIZOPHRENIA NEC [295.8] INVALID FOR* More... MALIGNANT NEOPLASM COLON NOS(aka COLON) [C18.9] INVALID FOR* More... More... PEPTIC ULCER NOS [K27.9] INVALID FOR* Tobacco use disorder [F17.200] INVALID FOR*11/18/2011 More... Routine general medical examination at a [facility]*INVALID FOR*02/25/2013 More... MACULAR DEGENERATION NOS [H35.30] INVALID FOR* More... Diabetes mellitus type 2, uncontrolled, without*INVALID FOR* Priority: G More... Class 2 obesity due to excess calories with bod*INVALID FOR*11/08/2016 Priority: H More... HEMATURIA NOS [R31.9] INVALID FOR* More... Hyperlipidemia [E78.5] INVALID FOR* More... HEADACHE [R51] INVALID FOR* Sleep Apnea [G47.30] INVALID FOR* More... Asthma [J45.909] Priority: D More... DM w/o complication type II [E11.9] INVALID FOR* Pain in soft tissues of limb [M79.609] INVALID FOR* Dermatophytosis of nail [B35.1] INVALID FOR* Ventral hernia [K43.9] INVALID FOR* Lunate fracture, closed [S62.123A] INVALID FOR* Acute postoperative respiratory insufficiency [*INVALID FOR*07/19/2016 Priority: C More... Bowel obstruction (HCC) [K56.609] INVALID FOR* Priority: A More... Electrolyte and fluid disorder [E87.8] INVALID FOR*03/03/2015 Priority: I More... Post-op pain [G89.18] INVALID FOR* Priority: G More... Postoperative anemia due to acute blood loss [D*INVALID FOR* Priority: F More... H/O schizophrenia [Z86.59] INVALID FOR* Priority: E More... Hypotension [I95.9] INVALID FOR* Priority: E More... Fever [R50.9] INVALID FOR* Priority: F More... Septic shock due to Escherichia coli (HCC) [A41*INVALID FOR*07/19/2016 Priority: B More... Altered mental status [R41.82] INVALID FOR*12/09/2015 Priority: D More... Hyperbilirubinemia [E80.6] INVALID FOR*03/08/2015 More... Hypernatremia [E87.0] INVALID FOR*03/14/2015 Priority: K More... Skin lesion [L98.9] INVALID FOR* Priority: I More... Mild protein-calorie malnutrition (HCC) [E44.1] INVALID FOR* Priority: K More... Electrolyte imbalance [E87.8] INVALID FOR*07/19/2016 Priority: J More... Physical deconditioning [R53.81] INVALID FOR* Priority: L More... Metabolic acidosis [E87.2] INVALID FOR*03/19/2015 Encephalopathy in sepsis [G93.41] INVALID FOR* More... Acute kidney injury (HCC) [N17.9] INVALID FOR*03/19/2015 More... Small intestinal anastomotic leak [K91.89] INVALID FOR* More... Hypernatremia [E87.0] INVALID FOR*03/19/2015 More... Fistula [L98.8] INVALID FOR* On total parenteral nutrition (TPN) [Z78.9] INVALID FOR* Scruggs catheter dysfunction (HCC) [T82.514A] INVALID FOR* Tracheostomy care (HCC) [Z43.0] INVALID FOR* Magnesium deficiency [E61.2] INVALID FOR* Tracheostomy present (HCC) [Z93.0] INVALID FOR* Hypomagnesemia [E83.42] INVALID FOR* Hematoma [T14.8XXA] INVALID FOR* SBO (small bowel obstruction) ([facility]) [K56.609] INVALID FOR* Ventral hernia with bowel obstruction [K43.6] INVALID FOR* More... 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 Trevizo Disc: Reason for discontinue is not on file. Follow-up and Disposition History Recorded Encounter Status:Closed by KG ALVAREZ MD on 07/05/17 PING Observed: 07/03/2017 Status: COMPLETED Source: [place] 12:00 AM [facility] REPOSITORY Telephone ([place]) CHRISTOPHER HOBSON ([id number]) 1960 F T Date Time Provider Department 07/03/17 KAREL MCNAIR) VAN During your visit today, we recorded the following information about you: [facility] 07/03/2017 10:26 AM Signed Pt would like a call back. 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 has a question regarding pt's trach. He can be reached at: [phone] Karel Mcnair PA-C 07/03/2017 4:19 PM Signed I spoke with Mr Hobson. Allergies As of Date: 07/03/2017 Noted Allergy Reaction CEPHALOSPORINS 04/03/2003 Comments: itching Cherries [Other] 04/03/2003 Comments: angioedema and tongue blisters CIPROFLOXACIN 09/11/2016 10 - Anaphylaxis Comments: It was used with flagyl at the same time so uknown which is the cause CODEINE 04/03/2003 Comments: rash swelling DICLOFENAC 08/28/2003 Comments: rash DILAUDID (HYDROMORPHONE (BULK)) 06/10/2015 9 - Itching FLAGYL (METRONIDAZOLE HCL) 09/11/2016 10 - Anaphylaxis Comments: It was used with flagyl at the same time so uknown which is the cause Philomena [Other] 04/03/2003 Comments: angioedematous tongue and blisters OPIOIDS - MORPHINE ANALOGUES 08/28/2003 Comments: rash Pears [Other] 10/09/2003 PENICILLINS 04/03/2003 10 - Anaphylaxis Comments: ?anaphylaxis, patient tolerates zosyn PERCOCET (OXYCODONE-ACETAMINOPHEN)08/13/2004 9 - Itching SOAP 05/30/2006 VICODIN (HYDROCODONE-ACETAMINOPHE*05/21/2009 2 - Rash ZITHROMAX (AZITHROMYCIN) 03/24/2016 2 - Rash Date Reviewed: 06/14/2017 Reviewed by: Francis Taylor Pneumatic Systems Operator - Fully Assessed Reason for Visit: Please return [Other] Prescriptions as of 07/03/2017 Sig: PREGABALIN 75 MG CAPSULE 1 capsule every [address]* MELOXICAM 7.5 MG TABLET TAKE ONE TABLET BY MOUTH EVER* GUAIFENESIN ER 600 MG TABLET,* Take 1 tablet by mouth twice * METRONIDAZOLE 500 MG TABLET Take 1 tablet by mouth three * DOXYCYCLINE MONOHYDRATE 100 M* Take 1 capsule by mouth twice* BENZONATATE 200 MG CAPSULE Take 1 capsule by mouth twice* CETIRIZINE 10 MG TABLET Take 1 tablet by mouth once d* FLUTICASONE 50 MCG/ACTUATION * Use 2 Sprays in each nostril * COMPOUNDED PRESCRIPTION Stoma check by [facility] (Z93.2) * MICONAZOLE NITRATE 2 % TOPICA* Apply 1 application to affect* BLOOD SUGAR DIAGNOSTIC STRIPS Test blood sugar(s) 4 times d* LANCETS Test blood sugar(s) 4 times d* ALCOHOL SWABS Test blood sugars 4 x's daily* GLIMEPIRIDE 2 MG TABLET Take 2 tablets by mouth daily* TRAZODONE 100 MG TABLET Take 3 tablets by mouth daily* MAGNESIUM 71.5 MG (MAGNESIUM * Take 1 tablet by mouth once d* INSULIN GLARGINE (U-100) 100 * Inject 17 Units subcutaneousl* TOPIRAMATE 100 MG TABLET Take 1 tablet by mouth once d* BUTRANS 15 MCG/HOUR TRANSDERM* Apply 1 Patch as directed daniela* MELATONIN 3 MG TABLET Take 2 tablets by mouth daily* THIOTHIXENE 2 MG CAPSULE Take 1 capsule by mouth daily* ATORVASTATIN 40 MG TABLET Take 1 tablet by mouth once d* IPRATROPIUM-ALBUTEROL 0.5 MG-* Inhale 3 mL as instructed fou* COMPOUNDED PRESCRIPTION Please perform nocturnal oxim* COMPOUNDED PRESCRIPTION Home pulse ox J96.11 BUDESONIDE-FORMOTEROL HFA 160* Inhale 2 Puffs as instructed * COMPOUNDED PRESCRIPTION Abdominal binder for ventral * PEN NEEDLE, DIABETIC 31 GAUGE* Use one needle per dose (Lant* BLOOD SUGAR DIAGNOSTIC STRIPS Test blood sugar(s) 4 times d* OMEPRAZOLE 20 MG CAPSULE,DARREN* Take 1 capsule by mouth daily* VRAYLAR 3 MG CAPSULE Take 3 mg by mouth daily at b* WHITE PETROLATUM-MINERAL OIL * Apply 1 application to affect* COMPOUNDED PRESCRIPTION Bed childs (R26.2) Difficulty * COMPOUNDED PRESCRIPTION Wheel chair (R26.2) Difficul* COMPOUNDED PRESCRIPTION Please perform nocturnal oxim* COMPOUNDED PRESCRIPTION Please perform nocturnal puls* TRIAMCINOLONE ACETONIDE 0.1 %* Apply 1 application to affect* SODIUM CHLORIDE 0.65 % NASAL * Use 1 [place] in the nose as ne* COMPOUNDED PRESCRIPTION ADHESIVE REMOVER FOR COLOSTOM* COMPOUNDED PRESCRIPTION Portable suction device Diag* COMPOUNDED PRESCRIPTION Back to previous mode of oxyg* LUBRICANTS TOPICAL GEL Apply 1 application to affect* AMANTADINE HCL 100 MG CAPSULE Take 2 capsules by mouth twic* COMPOUNDED PRESCRIPTION Perform Tracheostomy Care wit* COMPOUNDED PRESCRIPTION Hand held shower. Needs to s* FOAM BANDAGE 3.5 X 3.5 Apply 1 application to affect* Problem List As Of Date 07/03/2017 Noted Resolved DEPRESSIVE DISORDER NEC(aka DEPRESSION) [F32.9] INVALID FOR* SCHIZOPHRENIA NEC [295.8] INVALID FOR* More... MALIGNANT NEOPLASM COLON NOS(aka COLON) [C18.9] INVALID FOR* More... More... PEPTIC ULCER NOS [K27.9] INVALID FOR* Tobacco use disorder [F17.200] INVALID FOR*11/18/2011 More... Routine general medical examination at a [facility]*INVALID FOR*02/25/2013 More... MACULAR DEGENERATION NOS [H35.30] INVALID FOR* More... Diabetes mellitus type 2, uncontrolled, without*INVALID FOR* Priority: G More... Class 2 obesity due to excess calories with bod*INVALID FOR*11/08/2016 Priority: H More... HEMATURIA NOS [R31.9] INVALID FOR* More... Hyperlipidemia [E78.5] INVALID FOR* More... HEADACHE [R51] INVALID FOR* Sleep Apnea [G47.30] INVALID FOR* More... Asthma [J45.909] Priority: D More... DM w/o complication type II [E11.9] INVALID FOR* Pain in soft tissues of limb [M79.609] INVALID FOR* Dermatophytosis of nail [B35.1] INVALID FOR* Ventral hernia [K43.9] INVALID FOR* Lunate fracture, closed [S62.123A] INVALID FOR* Acute postoperative respiratory insufficiency [*INVALID FOR*07/19/2016 Priority: C More... Bowel obstruction (HCC) [K56.609] INVALID FOR* Priority: A More... Electrolyte and fluid disorder [E87.8] INVALID FOR*03/03/2015 Priority: I More... Post-op pain [G89.18] INVALID FOR* Priority: G More... Postoperative anemia due to acute blood loss [D*INVALID FOR* Priority: F More... H/O schizophrenia [Z86.59] INVALID FOR* Priority: E More... Hypotension [I95.9] INVALID FOR* Priority: E More... Fever [R50.9] INVALID FOR* Priority: F More... Septic shock due to Escherichia coli (HCC) [A41*INVALID FOR*07/19/2016 Priority: B More... Altered mental status [R41.82] INVALID FOR*12/09/2015 Priority: D More... Hyperbilirubinemia [E80.6] INVALID FOR*03/08/2015 More... Hypernatremia [E87.0] INVALID FOR*03/14/2015 Priority: K More... Skin lesion [L98.9] INVALID FOR* Priority: I More... Mild protein-calorie malnutrition (HCC) [E44.1] INVALID FOR* Priority: K More... Electrolyte imbalance [E87.8] INVALID FOR*07/19/2016 Priority: J More... Physical deconditioning [R53.81] INVALID FOR* Priority: L More... Metabolic acidosis [E87.2] INVALID FOR*03/19/2015 Encephalopathy in sepsis [G93.41] INVALID FOR* More... Acute kidney injury (HCC) [N17.9] INVALID FOR*03/19/2015 More... Small intestinal anastomotic leak [K91.89] INVALID FOR* More... Hypernatremia [E87.0] INVALID FOR*03/19/2015 More... Fistula [L98.8] INVALID FOR* On total parenteral nutrition (TPN) [Z78.9] INVALID FOR* Scruggs catheter dysfunction ([facility]) [T82.514A] INVALID FOR* Tracheostomy care ([facility]) [Z43.0] INVALID FOR* Magnesium deficiency [E61.2] INVALID FOR* Tracheostomy present ([facility]) [Z93.0] INVALID FOR* Hypomagnesemia [E83.42] INVALID FOR* Hematoma [T14.8XXA] INVALID FOR* SBO (small bowel obstruction) ([facility]) [K56.609] INVALID FOR* Ventral hernia with bowel obstruction [K43.6] INVALID FOR* More... 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] INVALID FOR* Complete heart block (HCC) [I44.2] INVALID FOR* Cardiac pacemaker in situ [Z95.0] INVALID FOR* Right bundle branch block [I45.10] INVALID FOR* Hypoalbuminemia [E88.09] INVALID FOR* Hypoproteinemia (HCC) [E77.8] INVALID FOR* VRE bacteremia [R78.81, Z16.21] INVALID FOR* Class 1 obesity due to excess calories with ser*INVALID FOR* Follow-up and Disposition History Recorded Encounter Status:Closed by KAREL MCNAIR PA-C on 07/03/17 PROGRESS Observed: 06/14/2017 Status: COMPLETED Source: [place] 1:47 PM [facility] [place] REPOSITORY HNO ID: [id number] Author: Sheila Howell) Older Service: (none) Author Type: Nurse Practitioner Type: Progress Notes Filed: 06/14/2017 2:04 PM Note Text: CC: Patient presents with: [facility] ER Follow Up HPI Christopher Hobson is a 56 year old female who presents today for ER follow-up. Reason for visit: possible allergic reaction to Lyrica Which facility: [facility] Date of visit: 06/11 Diagnosis: Allergic reaction to medication undetermined Testing done: None indicated per ER report Treatment given: Albuterol nebulizer and Kenalog IM Current symptoms: Patient reports ever since she started Lyrica 5 months ago she feels that her throat has been swollen. Has continued to take Lyrica and has not gotten any worse. She addressed these concerns with pain management and he recommended she go down to one capsule every 3 days. Patient states last dose was Monday, still feels as if throat is swollen. Denies dysphagia, odynophagia, drooling/trouble handling secretions, vomiting, heartburn/reflux symptoms. Also reports lately she has to sleep in recliner because she feels SOB when she lays back all the way. Has tracheostomy, denies any issues. Suctioned a few times a day, mucus is clear to white. No drainage from around trach, just moist all the time. REVIEW OF SYSTEMS General: no fevers, no chills, no night sweats, no change in appetite, no change in energy. 15 lb weight gain since starting Lyrica HEENT: no frequent or significant headaches, no sinus or nasal problems Respiratory: no cough, no wheezing, no hemoptysis Cardiovascular: no chest pain, no chest pressure, no palpitations, no swelling and no decrease in exercise tolerance PAST MEDICAL HISTORY Diagnosis Date - Acute peptic ulcer, unspecified site, without mention of hemorrhage, perforation, or obstruction 1999 - Asthma - Bowel disease Colon polyps - Chronic obstructive pulmonary disease (COPD) ([facility]) - Diabetes ([facility]) 1999 On insulin 2015 - Dyslipidemia - Lunate fracture, closed 11/22/2012 - Other specified disorders of pancreatic internal secretion 04/1999 Diabetes on metformin - Paranoid schizophrenia, chronic condition ([facility]) 1985 - Personal history of colonic polyps 2000 - S/P colostomy ([facility]) - Tracheostomy in place ([facility]) Placed 2015 after prolonged respiratory failure, unable to liberate from vent. - Unspecified migraine 1998 PAST SURGICAL HISTORY Procedure Laterality Date - ANESTH,VAGINAL DELIVERY 1977,1979,1985, 1986 w/ episiotomies - APPENDECTOMY - GARCIA, TANGELA AND/OR THERAPEUTIC 1977 Dilation AND curettage - INDUCED ABORTN BY TEODORAOR - LIGATE FALLOPIAN TUBE Tubal ligation - PAST SURGICAL HISTORY OF 2004 Abdominal surgeries for hernia repairs - PAST SURGICAL HISTORY OF 2008 Ileostomy - PAST SURGICAL HISTORY OF 09/12/2016 Underwent ex lap, takedown of prior ostomy, RONEY and creation of new end ileostomy on 09/12/16 for parastomal hernia with closed loop hernia - PAST SURGICAL HISTORY OF 09/28/2016 Permanent Pacemaker Placement for complete heart block - REDUCE BOWEL OBSTRUCTION Late February 2015 acute bowel obstruction. SB resection. - REMOVAL OF TONSILS,10+ Y/O - REVISE MEDIAN N/CARPAL TUNNEL SURG 2006 Carpal tunnel decomp right - REVISE MEDIAN N/CARPAL TUNNEL SURG Carpal tunnel decomp left - REVISION OF COLOSTOMY,COMPLICATED 2000 3-4 surgeries - TRACHEOSTOMY HX 03/12/2015 protracted critical stay, failure to wean after bowel obtruction ALLERGIES Cephalosporins; Ciprofloxacin; Codeine; Cherries [Other]; Diclofenac; Dilaudid [Hydromorphone (Bulk)]; Flagyl [Metronidazole Hcl]; Philomena [Other]; Opioids - Morphine Analogues; Penicillins; Percocet [Oxycodone-Acetaminophen]; Pears [Other]; Soap; Vicodin [Hydrocodone-Acetaminophen]; Zithromax [Azithromycin] MEDICATIONS pregabalin (LYRICA) 75 mg capsule 1 capsule every [address] Trevizo meloxicam (MOBIC) 7.5 mg tablet TAKE ONE TABLET BY MOUTH EVERY DAY ON a full stomach guaiFENesin (MUCINEX) 600 mg 12 hr tablet Take 1 tablet by mouth twice daily. metroNIDAZOLE (FLAGYL) 500 mg tablet Take 1 tablet by mouth three times daily. doxycycline monohydrate (MONODOX) 100 mg capsule Take 1 capsule by mouth twice daily. Benzonatate (TESSALON) 200 mg capsule Take 1 capsule by mouth twice daily as needed for Cough. cetirizine (ZYRTEC) 10 mg tablet Take 1 tablet by mouth once daily. fluticasone (FLONASE) 50 mcg/actuation nasal spray Use 2 Sprays in each nostril once daily. Rinse mouth after use. COMPOUNDED PRESCRIPTION Stoma check by [facility] (Z93.2) Ileostomy in place (HCC) miconazole (CADENCE ANTIFUNGAL) 2 % cream Apply 1 application to affected area twice daily. To perirectal and buttocks area blood sugar diagnostic (BLOOD GLUCOSE TEST) test strip Test blood sugar(s) 4 times daily and as needed as directed. Dx: Type 2 DM - Uncontrolled E11.65 Insulin: Yes Lancets lancets Test blood sugar(s) 4 times daily as directed. Dx: Type 2 DM - Uncontrolled E11.65 Insulin: Yes alcohol swabs (SURE-PREP ALCHOLOL PREP PADS) padm Test blood sugars 4 x's daily. Dx: E11.65 Insulin: Yes glimepiride (AMARYL) 2 mg tablet Take 2 tablets by mouth daily with breakfast. Magnesium Chloride (SLOW-MAG) 71.5 mg TbEC Take 1 tablet by mouth once daily. insulin glargine (LANTUS SOLOSTAR) 100 unit/mL (3 mL) inpn Inject 17 Units subcutaneously daily at bedtime. (patient instructed to increase dose, but as of October 17, 2016, had not yet increased) topiramate (TOPAMAX) 100 mg tablet Take 1 tablet by mouth once daily. Per psychiatrist MONIQUE 15 mcg/hour ptwk Apply 1 Patch as directed every Monday. Per Dr. Trevizo melatonin 3 mg Take 2 tablets by mouth daily at bedtime. thiothixene (NAVANE) 2 mg capsule Take 1 capsule by mouth daily at bedtime. Per psychiatry, Lorene Dupree NP atorvastatin (LIPITOR) 40 mg tablet Take 1 tablet by mouth once daily. ipratropium-albuterol (DUONEB) 0.5 mg-3 mg(2.5 mg base)/3 mL nebu Inhale 3 mL as instructed four times daily as needed (wheezing). Use over 5-15minutes per nebulizer. COMPOUNDED PRESCRIPTION Please perform nocturnal oximetry on 6 lpm trach mask. Dx: chronic hypoxemic respiratory failure J96.11. Please fax results to [phone]. COMPOUNDED PRESCRIPTION Home pulse ox J96.11 budesonide-formoterol (SYMBICORT) 160-4.5 mcg/actuation inhaler Inhale 2 Puffs as instructed twice daily. COMPOUNDED PRESCRIPTION Abdominal binder for ventral hernia K43.9 insulin needles, DISPOSABLE, (PEN NEEDLE) 31 gauge x 5/16 ndle Use one needle per dose (Lantus and Humalog). 5 per day. blood sugar diagnostic (FREESTYLE INSULINX) test strip Test blood sugar(s) 4 times daily and as needed. Dx: Type 2 DM - Uncontrolled E11.65 Insulin: Yes omeprazole (PRILOSEC) 20 mg capsule Take 1 capsule by mouth daily before breakfast. 1/2 hr before meal. VRAYLAR 3 mg cap Take 3 mg by mouth daily at bedtime. white petrolatum-mineral oil (EUCERIN) cream Apply 1 application to affected area as needed for Dry Skin (all dry skin areas). COMPOUNDED PRESCRIPTION Bed childs (R26.2) Difficulty ambulating due to knee COMPOUNDED PRESCRIPTION Wheel chair (R26.2) Difficulty ambulating due to knee COMPOUNDED PRESCRIPTION Please perform nocturnal oximetry on 5 lpm O2 via trach mask. Please fax results to [phone]. DX: Chronic hypoxemic respiratory failure, J96.11. COMPOUNDED PRESCRIPTION Please perform nocturnal pulse oximetry on 3 lpm O2 via trach collar.DX: Chronic hypoxemic respiratory failure, trach dependence triamcinolone acetonide (KENALOG) 0.1 % cream Apply 1 application to affected area three times daily. Apply sparingly to area for rash/itching till rash resolves. For contact dermatitis sodium chloride (SALINE MIST) 0.65 % nasal spray Use 1 [place] in the nose as needed for Cold/Allergy Symptoms. Dispense 1 bottle (not 1 ml) COMPOUNDED PRESCRIPTION ADHESIVE REMOVER FOR COLOSTOMY BAG REMOVAL DX Z93.3 COMPOUNDED PRESCRIPTION Portable suction device Diagnoses: (Z93.0) Tracheostomy status (HCC);(Z43.0) Tracheostomy care (HCC);(J39.8) Increased tracheal secretions COMPOUNDED PRESCRIPTION Back to previous mode of oxygen (LOX) 2L daytime, 3L at night. Lubricants (K-Y LUBRICATING) gel Apply 1 application to affected area as needed (Use as needed for Tracheostomy changes). amantadine HCl (SYMMETREL) 100 mg capsule Take 2 capsules by mouth twice daily. (Dr. Dupree) COMPOUNDED PRESCRIPTION Perform Tracheostomy Care with provided Tracheostomy Kit once daily or as needed for irritated stoma. May change split guaze sponge dressing as needed. COMPOUNDED PRESCRIPTION Hand held shower. Needs to sit while showering and use hand held shower. (R53.81) Physical deconditioning; (R26.89) Difficulty balancing when reaching Foam Bandage (ALLEVYN TRACHEOSTOMY DRESSING) 3.5 X 3.5 bndg Apply 1 application to affected area twice daily. traZODone (DESYREL) 100 mg tablet Take 3 tablets by mouth daily at bedtime. ([facility]) FAMILY HISTORY Problem Relation Age of Onset - Pneumonia [OTHER] Mother - Heart Father - Thyroid Daughter - Thyroid Daughter Social History Substance Use Topics - Smoking status: Former Smoker Packs/day: 2.00 Years: 45.00 Types: Cigarettes Start date: 1965 Quit date: 08/27/2010 - Smokeless tobacco: Never Used - Alcohol use No PHYSICAL EXAM BP 120/80 Pulse 75 Temp 37.3 ?C (99.1 ?F) (Temporal Artery) Resp 16 Wt 95.3 kg (210 lb) SpO2 94% BMI 38.41 kg/m2 General Appearance: in no acute distress, alert, obese Pysch: Flat affect Ears: external ears normal to inspection and palpation, canals clear, Left tympanic membrane normal. , Right tympanic membrane normal Nose/sinus: Nares normal. Septum midline. Mucosa normal. No drainage., No sinus tenderness Neck: Thyroid normal size and symmetric without palpable nodules, Neck supple, No adenopathy, Trach in place. No swelling, redness or drainage around insertion Oropharynx: lips normal without lesions, tongue midline and normal, soft palate, uvula, and tonsils normal Lungs: Lungs clear to auscultation. No wheezing, rhonchi, rales Heart: RRR without murmur, gallop, or rubs. No ectopy Abdomen: Abdomen soft, non-tender. Bowel sounds normal. Ext: no edema in LE bilaterally, good distal pulses ASSESSMENT/PLAN: 1. Neck swelling - ICD9: 784.2, ICD10: R22.1 (primary diagnosis) Patient advised this is likely not due to Lyrica since she has been taking consistently despite neck swelling and it has not gotten any worse. Reassurance given. No improvement since last dose on Monday. No alarm symptoms or exam findings. Will work-up with labs for other causes: - CBC + DIFF - TSH BLD - COMP METABOLIC PANEL Patient requesting sales promotion manager be made aware of issues and ER visit. Will forward chart. Follow-up pending recommendations 2. Tracheostomy present (HCC) - ICD9: V44.0, ICD10: Z93.0 As above 3. Fibromyalgia - ICD9: 729.1, ICD10: M79.7 Follow pain management instructions to continue with Lyrica but decrease to one every 3 days. Patient has appointment on 06/20 with pain management and can discuss further whether to continue Lyrica or change to another medication at that time. - PREGABALIN 75 MG CAPSULE Prescription instructions reviewed with patient as applicable. Potential red flag symptoms discussed with the patient. Reviewed appropriate action plan to take if red flag symptoms occur. Patient agreeable to treatment plan. Sheila Matthew APRN.HEAD M[employer]ER CBC AND DIFFERENTIAL Collected: 06/14/2017 Status: F Source: [place] 12:02 PM [facility] [place] REPOSITORY TYPE CODE TESTS RESULT OUT OF REFERENCE UNITS RANGE LAB WBC 3.70-11.00 k/uL WBC 7.01 LAB RBC 3.90-5.20 m/uL RBC 4.28 LAB HGB 11.5-15.5 g/dL Hemoglobin 11.8 LAB HCT 36.0-46.0 % Hematocrit 39.6 LAB MCV 80.0-100.0 fL MCV 92.5 LAB MCH 26.0-34.0 pG MCH 27.6 LAB MCHC 30.5-36.0 g/dL Low MCHC 29.8 LAB RDWCV 11.5-15.0 % RDW-CV 14.4 LAB PLTCT 150-400 k/uL Platelet Count 162 LAB MPV 9.0-12.7 fL MPV 11.6 LAB ANEUT % Neut% 72.9 LAB AANEUT 1.45-7.50 k/uL Abs Neut 5.11 LAB ALYMP % Lymph% 20.5 LAB AALYMP 1.00-4.00 k/uL Abs Lymph 1.44 LAB AMONO % Clare% 5.0 LAB AAMONO <0.87 k/uL Abs Clare 0.35 LAB AEOS % Eosin% 1.3 LAB AAEOS <0.46 k/uL Abs Eosin 0.09 LAB ABASO % Baso% 0.3 LAB AABASO <0.11 k/uL Abs Baso <0.03 LAB AUNRBC 0 /100 WBC NRBCs 0.0 LAB ABNRBC <0.01 k/uL Absolute nRBC <0.01 LAB DTYP DTYPE Auto Diff Performed By: #### CBCDIF, CMP, TSH #### [facility] [address] [place], [place] [address] COMP METABOLIC PANEL Collected: 06/14/2017 Status: F Source: [place] 12:02 [facility] MA[facility] [place] REPOSITORY TYPE CODE TESTS RESULT OUT OF REFERENCE UNITS RANGE LAB TP 6.3-8.0 g/dL Protein, Total 7.4 LAB ALB 3.9-4.9 g/dL Albumin 4.2 LAB CA 8.5-10.2 mg/dL Calcium, Total 9.9 LAB TBIL 0.2-1.3 mg/dL Bilirubin, Total 0.5 LAB ALKP 32-117 U/L Alkaline Phosphatase 85 LAB AST 13-35 U/L AST 22 LAB GLU 74-99 mg/dL Glucose High 335 Result Comment: The [place] [employer] (ADA) provides guidance for cutoff values for fasting glucose and random glucose. The ADA defines fasting as no caloric intake for at least 8 hours. Fas ting plasma glucose results between 100 to 125 mg/dL indicate increased risk for diabetes (prediabetes). Fasting plasma glucose results greater than or equal to 126 mg/dL meet the criteria for diagnosis of diabetes. In the absence of unequivocal hyperglycemia, results should be confirmed by repeat testing. In a patient with classic symptoms of hyperglycemia or hyperglycemic crisis, random plasma glucose results greater than or equal to 200 mg/dL meet the criteria for diagnosis of diabetes. Reference: Standards of Medical Care in Diabetes 2016, [place] [employer]. Diabetes Care. 2016.39(Suppl 1). LAB BUN 7-21 mg/dL BUN 21 LAB CRET 0.58-0.96 mg/dL Creatinine 0.93 LAB NA 136-144 mmol/L Sodium 136 LAB K 3.7-5.1 mmol/L Potassium 4.3 LAB CL 97-105 mmol/L Chloride 100 LAB CO2 22-30 mmol/L CO2 Low 20 LAB AGAP 9-18 mmol/L Anion Gap 16 LAB ALT 7-38 U/L ALT 23 LAB GFRAA eGFR- Amer. >60 LAB GFRNAA . eGFR-All Other Races >60 Result Comment: eGFR (Estimated GFR) Units of measure: mL/min/1.73 meters squared eGFR is derived from the reexpressed MDRD Study equation using the following parameters: serum creatinine, age, gender and race. The creatinine assay has been calibrated to be traceable to IDMS. An eGFR <60 mL/min/1.73m2 for >3 months is consistent with chronic kidney disease. Refer to KDOQI guidelines for clinical interpretation. In patients with unstable renal function, e.g. those with acute kidney injury, the eGFR may not accurately reflect actual GFR. Performed By: #### CBCDIF, CMP, TSH #### [facility] [address] [place] [id number] TSH Collected: 06/14/2017 Status: F Source: [place] 12:02 PM [facility] REPOSITORY TYPE CODE TESTS RESULT OUT OF RANGE REFERENCE UNITS LAB TSH 0.400-5.500 uU/mL TSH 2.980 Performed By: #### CBCDIF, CMP, TSH #### [facility] [address] [place] [id number] CNOV Observed: 06/14/2017 Status: COMPLETED Source: [place] 11:20 AM [facility] REPOSITORY Office Visit (INTMWS) CHRISTOPHER HOBSON ([id number]) 1960 F [facility] Date Time Provider Department 06/14/17 11:20 AM OLDER, SHEILA (DORY) INTMWS During your visit today, we recorded the following information about you: Temperature Pulse Respiration Blood pressure 99.1 degrees 75/minute 16/minute 120/80 Weight 95.3 kg Sheila Matthew, PLANNERARI 06/14/2017 2:04 PM Signed CC: Patient presents with: [facility] ER Follow Up HPI Christopher Hobson is a 56 year old female who presents today for ER follow-up. Reason for visit: possible allergic reaction to Lyrica Which facility: [facility] Date of visit: 06/11 Diagnosis: Allergic reaction to medication undetermined Testing done: None indicated per ER report Treatment given: Albuterol nebulizer and Kenalog IM Current symptoms: Patient reports ever since she started Lyrica 5 months ago she feels that her throat has been swollen. Has continued to take Lyrica and has not gotten any worse. She addressed these concerns with pain management and he recommended she go down to one capsule every 3 days. Patient states last dose was Monday, still feels as if throat is swollen. Denies dysphagia, odynophagia, drooling/trouble handling secretions, vomiting, heartburn/reflux symptoms. Also reports lately she has to sleep in recliner because she feels SOB when she lays back all the way. Has tracheostomy, denies any issues. Suctioned a few times a day, mucus is clear to white. No drainage from around trach, just moist all the time. REVIEW OF SYSTEMS General: no fevers, no chills, no night sweats, no change in appetite, no change in energy. 15 lb weight gain since starting Lyrica HEENT: no frequent or significant headaches, no sinus or nasal problems Respiratory: no cough, no wheezing, no hemoptysis Cardiovascular: no chest pain, no chest pressure, no palpitations, no swelling and no decrease in exercise tolerance PAST MEDICAL HISTORY Diagnosis Date - Acute peptic ulcer, unspecified site, without mention of hemorrhage, perforation, or obstruction 1999 - Asthma - Bowel disease Colon polyps - Chronic obstructive pulmonary disease (COPD) ([facility]) - Diabetes ([facility]) 1999 On insulin 2015 - Dyslipidemia - Lunate fracture, closed 11/22/2012 - Other specified disorders of pancreatic internal secretion 04/1999 Diabetes on metformin - Paranoid schizophrenia, chronic condition ([facility]) 1985 - Personal history of colonic polyps 2000 - S/P colostomy ([facility]) - Tracheostomy in place ([facility]) Placed 2015 after prolonged respiratory failure, unable to liberate from vent. - Unspecified migraine 1998 PAST SURGICAL HISTORY Procedure Laterality Date - ANESTH,VAGINAL DELIVERY 1977,1979,1985, 1986 w/ episiotomies - APPENDECTOMY - DANDamp;C, DIAG AND/OR THERAPEUTIC 1977 Dilation ANDamp; curettage - INDUCED ABORTN BY DANDamp;C - LIGATE FALLOPIAN TUBE Tubal ligation - PAST SURGICAL HISTORY OF 2004 Abdominal surgeries for hernia repairs - PAST SURGICAL HISTORY OF 2008 Ileostomy - PAST SURGICAL HISTORY OF 09/12/2016 Underwent ex lap, takedown of prior ostomy, RONEY and creation of new end ileostomy on 09/12/16 for parastomal hernia with closed loop hernia - PAST SURGICAL HISTORY OF 09/28/2016 Permanent Pacemaker Placement for complete heart block - REDUCE BOWEL OBSTRUCTION Late February 2015 acute bowel obstruction. SB resection. - REMOVAL OF TONSILS,10+ Y/O - REVISE MEDIAN N/CARPAL TUNNEL SURG 2005 Carpal tunnel decomp right - REVISE MEDIAN N/CARPAL TUNNEL SURG Carpal tunnel decomp left - REVISION OF COLOSTOMY,COMPLICATED 2000 3-4 surgeries - TRACHEOSTOMY HX 03/12/2015 protracted critical stay, failure to wean after bowel obtruction ALLERGIES Cephalosporins; Ciprofloxacin; Codeine; Cherries [Other]; Diclofenac; Dilaudid [Hydromorphone (Bulk)]; Flagyl [Metronidazole Hcl]; Philomena [Other]; Opioids - Morphine Analogues; Penicillins; Percocet [Oxycodone-Acetaminophen]; Pears [Other]; Soap; Vicodin [Hydrocodone-Acetaminophen]; Zithromax [Azithromycin] MEDICATIONS pregabalin (LYRICA) 75 mg capsule 1 capsule every [address] Trevizo meloxicam (MOBIC) 7.5 mg tablet TAKE ONE TABLET BY MOUTH EVERY DAY ON a full stomach guaiFENesin (MUCINEX) 600 mg 12 hr tablet Take 1 tablet by mouth twice daily. metroNIDAZOLE (FLAGYL) 500 mg tablet Take 1 tablet by mouth three times daily. doxycycline monohydrate (MONODOX) 100 mg capsule Take 1 capsule by mouth twice daily. Benzonatate (TESSALON) 200 mg capsule Take 1 capsule by mouth twice daily as needed for Cough. cetirizine (ZYRTEC) 10 mg tablet Take 1 tablet by mouth once daily. fluticasone (FLONASE) 50 mcg/actuation nasal spray Use 2 Sprays in each nostril once daily. Rinse mouth after use. COMPOUNDED PRESCRIPTION Stoma check by [facility] (Z93.2) Ileostomy in place (HCC) miconazole (CADENCE ANTIFUNGAL) 2 % cream Apply 1 application to affected area twice daily. To perirectal and buttocks area blood sugar diagnostic (BLOOD GLUCOSE TEST) test strip Test blood sugar(s) 4 times daily and as needed as directed. Dx: Type 2 DM - Uncontrolled E11.65 Insulin: Yes Lancets lancets Test blood sugar(s) 4 times daily as directed. Dx: Type 2 DM - Uncontrolled E11.65 Insulin: Yes alcohol swabs (SURE-PREP ALCHOLOL PREP PADS) padm Test blood sugars 4 x's daily. Dx: E11.65 Insulin: Yes glimepiride (AMARYL) 2 mg tablet Take 2 tablets by mouth daily with breakfast. Magnesium Chloride (SLOW-MAG) 71.5 mg TbEC Take 1 tablet by mouth once daily. insulin glargine (LANTUS SOLOSTAR) 100 unit/mL (3 mL) inpn Inject 17 Units subcutaneously daily at bedtime. (patient instructed to increase dose, but as of October 17, 2016, had not yet increased) topiramate (TOPAMAX) 100 mg tablet Take 1 tablet by mouth once daily. Per psychiatrist MONIQUE 15 mcg/hour ptwk Apply 1 Patch as directed every Monday. Per Dr. Trevizo melatonin 3 mg Take 2 tablets by mouth daily at bedtime. thiothixene (NAVANE) 2 mg capsule Take 1 capsule by mouth daily at bedtime. Per psychiatryLorene NP atorvastatin (LIPITOR) 40 mg tablet Take 1 tablet by mouth once daily. ipratropium-albuterol (DUONEB) 0.5 mg-3 mg(2.5 mg base)/3 mL nebu Inhale 3 mL as instructed four times daily as needed (wheezing). Use over 5-15minutes per nebulizer. COMPOUNDED PRESCRIPTION Please perform nocturnal oximetry on 6 lpm trach mask. Dx: chronic hypoxemic respiratory failure J96.11. Please fax results to [phone]. COMPOUNDED PRESCRIPTION Home pulse ox J96.11 budesonide-formoterol (SYMBICORT) 160-4.5 mcg/actuation inhaler Inhale 2 Puffs as instructed twice daily. COMPOUNDED PRESCRIPTION Abdominal binder for ventral hernia K43.9 insulin needles, DISPOSABLE, (PEN NEEDLE) 31 gauge x 5/16ANDquot; ndle Use one needle per dose (Lantus and Humalog). 5 per day. blood sugar diagnostic (FREESTYLE INSULINX) test strip Test blood sugar(s) 4 times daily and as needed. Dx: Type 2 DM - Uncontrolled E11.65 Insulin: Yes omeprazole (PRILOSEC) 20 mg capsule Take 1 capsule by mouth daily before breakfast. 1/2 hr before meal. VRAYLAR 3 mg cap Take 3 mg by mouth daily at bedtime. white petrolatum-mineral oil (EUCERIN) cream Apply 1 application to affected area as needed for Dry Skin (all dry skin areas). COMPOUNDED PRESCRIPTION Bed childs (R26.2) Difficulty ambulating due to knee COMPOUNDED PRESCRIPTION Wheel chair (R26.2) Difficulty ambulating due to knee COMPOUNDED PRESCRIPTION Please perform nocturnal oximetry on 5 lpm O2 via trach mask. Please fax results to [phone]. DX: Chronic hypoxemic respiratory failure, J96.11. COMPOUNDED PRESCRIPTION Please perform nocturnal pulse oximetry on 3 lpm O2 via trach collar.DX: Chronic hypoxemic respiratory failure, trach dependence triamcinolone acetonide (KENALOG) 0.1 % cream Apply 1 application to affected area three times daily. Apply sparingly to area for rash/itching till rash resolves. For contact dermatitis sodium chloride (SALINE MIST) 0.65 % nasal spray Use 1 [place] in the nose as needed for Cold/Allergy Symptoms. Dispense 1 bottle (not 1 ml) COMPOUNDED PRESCRIPTION ADHESIVE REMOVER FOR COLOSTOMY BAG REMOVAL DX Z93.3 COMPOUNDED PRESCRIPTION Portable suction device Diagnoses: (Z93.0) Tracheostomy status (HCC);(Z43.0) Tracheostomy care (HCC);(J39.8) Increased tracheal secretions COMPOUNDED PRESCRIPTION Back to previous mode of oxygen (LOX) 2L daytime, 3L at night. Lubricants (K-Y LUBRICATING) gel Apply 1 application to affected area as needed (Use as needed for Tracheostomy changes). amantadine HCl (SYMMETREL) 100 mg capsule Take 2 capsules by mouth twice daily. (Dr. Dupree) COMPOUNDED PRESCRIPTION Perform Tracheostomy Care with provided Tracheostomy Kit once daily or as needed for irritated stoma. May change split guaze sponge dressing as needed. COMPOUNDED PRESCRIPTION Hand held shower. Needs to sit while showering and use hand held shower. (R53.81) Physical deconditioning; (R26.89) Difficulty balancing when reaching Foam Bandage (ALLEVYN TRACHEOSTOMY DRESSING) 3.5 X 3.5 ANDquot; bndg Apply 1 application to affected area twice daily. traZODone (DESYREL) 100 mg tablet Take 3 tablets by mouth daily at bedtime. ([facility]) FAMILY HISTORY Problem Relation Age of Onset - Pneumonia [OTHER] Mother - Heart Father - Thyroid Daughter - Thyroid Daughter Social History Substance Use Topics - Smoking status: Former Smoker Packs/day: 2.00 Years: 45.00 Types: Cigarettes Start date: 1965 Quit date: 08/27/2010 - Smokeless tobacco: Never Used - Alcohol use No PHYSICAL EXAM BP 120/80 Pulse 75 Temp 37.3 ?C (99.1 ?F) (Temporal Artery) Resp 16 Wt 95.3 kg (210 lb) SpO2 94% BMI 38.41 kg/m2 General Appearance: in no acute distress, alert, obese Pysch: Flat affect Ears: external ears normal to inspection and palpation, canals clear, Left tympanic membrane normal. , Right tympanic membrane normal Nose/sinus: Nares normal. Septum midline. Mucosa normal. No drainage., No sinus tenderness Neck: Thyroid normal size and symmetric without palpable nodules, Neck supple, No adenopathy, Trach in place. No swelling, redness or drainage around insertion Oropharynx: lips normal without lesions, tongue midline and normal, soft palate, uvula, and tonsils normal Lungs: Lungs clear to auscultation. No wheezing, rhonchi, rales Heart: RRR without murmur, gallop, or rubs. No ectopy Abdomen: Abdomen soft, non-tender. Bowel sounds normal. Ext: no edema in LE bilaterally, good distal pulses ASSESSMENT/PLAN: 1. Neck swelling - ICD9: 784.2, ICD10: R22.1 (primary diagnosis) Patient advised this is likely not due to Lyrica since she has been taking consistently despite neck swelling and it has not gotten any worse. Reassurance given. No improvement since last dose on Monday. No alarm symptoms or exam findings. Will work-up with labs for other causes: - CBC + DIFF - TSH BLD - COMP METABOLIC PANEL Patient requesting sales promotion manager be made aware of issues and ER visit. Will forward chart. Follow-up pending recommendations 2. Tracheostomy present (HCC) - ICD9: V44.0, ICD10: Z93.0 As above 3. Fibromyalgia - ICD9: 729.1, ICD10: M79.7 Follow pain management instructions to continue with Lyrica but decrease to one every 3 days. Patient has appointment on 06/20 with pain management and can discuss further whether to continue Lyrica or change to another medication at that time. - PREGABALIN 75 MG CAPSULE Prescription instructions reviewed with patient as applicable. Potential red flag symptoms discussed with the patient. Reviewed appropriate action plan to take if red flag symptoms occur. Patient agreeable to treatment plan. Sheila Matthew APRN.HEAD MILLER Referring Provider: SELF [[id number]] Allergies As of Date: 06/14/2017 Noted Allergy Reaction CEPHALOSPORINS 04/03/2003 Comments: itching CIPROFLOXACIN 09/11/2016 10 - Anaphylaxis Comments: It was used with flagyl at the same time so uknown which is the cause CODEINE 04/03/2003 Comments: rash swelling Cherries [Other] 04/03/2003 Comments: angioedema and tongue blisters DICLOFENAC 08/28/2003 Comments: rash DILAUDID (HYDROMORPHONE (BULK)) 06/10/2015 9 - Itching FLAGYL (METRONIDAZOLE HCL) 09/11/2016 10 - Anaphylaxis Comments: It was used with flagyl at the same time so uknown which is the cause Philomena [Other] 04/03/2003 Comments: angioedematous tongue and blisters OPIOIDS - MORPHINE ANALOGUES 08/28/2003 Comments: rash PENICILLINS 04/03/2003 10 - Anaphylaxis Comments: ?anaphylaxis, patient tolerates zosyn PERCOCET (OXYCODONE-ACETAMINOPHEN)08/13/2004 9 - Itching Pears [Other] 10/09/2003 SOAP 05/30/2006 VICODIN (HYDROCODONE-ACETAMINOPHE*05/21/2009 2 - Rash ZITHROMAX (AZITHROMYCIN) 03/24/2016 2 - Rash Date Reviewed: 06/14/2017 Reviewed by: Francis Taylor Pneumatic Systems Operator - Fully Assessed Reason for Visit: [facility] ER Follow Up [Other] Primary Visit Diagnosis:Neck swelling [R22.1] Other Visit Diagnoses:Tracheostomy present (HCC) [Z93.0] Fibromyalgia [M79.7] Order(s):CBC + DIFF [SQCBCDIF] Order #: [id number] FUTURE TSH BLD [SQTS] Order #: [id number] FUTURE COMP METABOLIC PANEL [SQCMP] Order #: [id number] FUTURE Prescriptions as of 06/14/2017 Sig: PREGABALIN 75 MG CAPSULE 1 capsule every [address]* MELOXICAM 7.5 MG TABLET TAKE ONE TABLET BY MOUTH EVER* GUAIFENESIN ER 600 MG TABLET,* Take 1 tablet by mouth twice * METRONIDAZOLE 500 MG TABLET Take 1 tablet by mouth three * DOXYCYCLINE MONOHYDRATE 100 M* Take 1 capsule by mouth twice* BENZONATATE 200 MG CAPSULE Take 1 capsule by mouth twice* CETIRIZINE 10 MG TABLET Take 1 tablet by mouth once d* FLUTICASONE 50 MCG/ACTUATION * Use 2 Sprays in each nostril * COMPOUNDED PRESCRIPTION Stoma check by [facility] (Z93.2) * MICONAZOLE NITRATE 2 % TOPICA* Apply 1 application to affect* BLOOD SUGAR DIAGNOSTIC STRIPS Test blood sugar(s) 4 times d* LANCETS Test blood sugar(s) 4 times d* ALCOHOL SWABS Test blood sugars 4 x's daily* GLIMEPIRIDE 2 MG TABLET Take 2 tablets by mouth daily* MAGNESIUM 71.5 MG (MAGNESIUM * Take 1 tablet by mouth once d* INSULIN GLARGINE (U-100) 100 * Inject 17 Units subcutaneousl* TOPIRAMATE 100 MG TABLET Take 1 tablet by mouth once d* BUTRANS 15 MCG/HOUR TRANSDERM* Apply 1 Patch as directed daniela* MELATONIN 3 MG TABLET Take 2 tablets by mouth daily* THIOTHIXENE 2 MG CAPSULE Take 1 capsule by mouth daily* ATORVASTATIN 40 MG TABLET Take 1 tablet by mouth once d* IPRATROPIUM-ALBUTEROL 0.5 MG-* Inhale 3 mL as instructed fou* COMPOUNDED PRESCRIPTION Please perform nocturnal oxim* COMPOUNDED PRESCRIPTION Home pulse ox J96.11 BUDESONIDE-FORMOTEROL HFA 160* Inhale 2 Puffs as instructed * COMPOUNDED PRESCRIPTION Abdominal binder for ventral * PEN NEEDLE, DIABETIC 31 GAUGE* Use one needle per dose (Lant* BLOOD SUGAR DIAGNOSTIC STRIPS Test blood sugar(s) 4 times d* OMEPRAZOLE 20 MG CAPSULE,DARREN* Take 1 capsule by mouth daily* VRAYLAR 3 MG CAPSULE Take 3 mg by mouth daily at b* WHITE PETROLATUM-MINERAL OIL * Apply 1 application to affect* COMPOUNDED PRESCRIPTION Bed childs (R26.2) Difficulty * COMPOUNDED PRESCRIPTION Wheel chair (R26.2) Difficul* COMPOUNDED PRESCRIPTION Please perform nocturnal oxim* COMPOUNDED PRESCRIPTION Please perform nocturnal puls* TRIAMCINOLONE ACETONIDE 0.1 %* Apply 1 application to affect* SODIUM CHLORIDE 0.65 % NASAL * Use 1 [place] in the nose as ne* COMPOUNDED PRESCRIPTION ADHESIVE REMOVER FOR COLOSTOM* COMPOUNDED PRESCRIPTION Portable suction device Diag* COMPOUNDED PRESCRIPTION Back to previous mode of oxyg* LUBRICANTS TOPICAL GEL Apply 1 application to affect* AMANTADINE HCL 100 MG CAPSULE Take 2 capsules by mouth twic* COMPOUNDED PRESCRIPTION Perform Tracheostomy Care wit* COMPOUNDED PRESCRIPTION Hand held shower. Needs to s* FOAM BANDAGE 3.5 X 3.5 Apply 1 application to affect* TRAZODONE 100 MG TABLET Take 3 tablets by mouth daily* Problem List As Of Date 06/14/2017 Noted Resolved DEPRESSIVE DISORDER NEC(aka DEPRESSION) [F32.9] INVALID FOR* SCHIZOPHRENIA NEC [295.8] INVALID FOR* More... MALIGNANT NEOPLASM COLON NOS(aka COLON) [C18.9] INVALID FOR* More... More... PEPTIC ULCER NOS [K27.9] INVALID FOR* Tobacco use disorder [F17.200] INVALID FOR*11/18/2011 More... Routine general medical examination at a health*INVALID FOR*02/25/2013 More... MACULAR DEGENERATION NOS [H35.30] INVALID FOR* More... Diabetes mellitus type 2, uncontrolled, without*INVALID FOR* Priority: G More... Class 2 obesity due to excess calories with bod*INVALID FOR*11/08/2016 Priority: H More... HEMATURIA NOS [R31.9] INVALID FOR* More... Hyperlipidemia [E78.5] INVALID FOR* More... HEADACHE [R51] INVALID FOR* Sleep Apnea [G47.30] INVALID FOR* More... Asthma [J45.909] Priority: D More... DM w/o complication type II [E11.9] INVALID FOR* Pain in soft tissues of limb [M79.609] INVALID FOR* Dermatophytosis of nail [B35.1] INVALID FOR* Ventral hernia [K43.9] INVALID FOR* Lunate fracture, closed [S62.123A] INVALID FOR* Acute postoperative respiratory insufficiency [*INVALID FOR*07/19/2016 Priority: C More... Bowel obstruction (HCC) [K56.609] INVALID FOR* Priority: A More... Electrolyte and fluid disorder [E87.8] INVALID FOR*03/03/2015 Priority: I More... Post-op pain [G89.18] INVALID FOR* Priority: G More... Postoperative anemia due to acute blood loss [D*INVALID FOR* Priority: F More... H/O schizophrenia [Z86.59] INVALID FOR* Priority: E More... Hypotension [I95.9] INVALID FOR* Priority: E More... Fever [R50.9] INVALID FOR* Priority: F More... Septic shock due to Escherichia coli (HCC) [A41*INVALID FOR*07/19/2016 Priority: B More... Altered mental status [R41.82] INVALID FOR*12/09/2015 Priority: D More... Hyperbilirubinemia [E80.6] INVALID FOR*03/08/2015 More... Hypernatremia [E87.0] INVALID FOR*03/14/2015 Priority: K More... Skin lesion [L98.9] INVALID FOR* Priority: I More... Mild protein-calorie malnutrition (HCC) [E44.1] INVALID FOR* Priority: K More... Electrolyte imbalance [E87.8] INVALID FOR*07/19/2016 Priority: J More... Physical deconditioning [R53.81] INVALID FOR* Priority: L More... Metabolic acidosis [E87.2] INVALID FOR*03/19/2015 Encephalopathy in sepsis [G93.41] INVALID FOR* More... Acute kidney injury (HCC) [N17.9] INVALID FOR*03/19/2015 More... Small intestinal anastomotic leak [K91.89] INVALID FOR* More... Hypernatremia [E87.0] INVALID FOR*03/19/2015 More... Fistula [L98.8] INVALID FOR* On total parenteral nutrition (TPN) [Z78.9] INVALID FOR* Scruggs catheter dysfunction (HCC) [T82.514A] INVALID FOR* Tracheostomy care ([facility]) [Z43.0] INVALID FOR* Magnesium deficiency [E61.2] INVALID FOR* Tracheostomy present ([facility]) [Z93.0] INVALID FOR* Hypomagnesemia [E83.42] INVALID FOR* Hematoma [T14.8XXA] INVALID FOR* SBO (small bowel obstruction) ([facility]) [K56.609] INVALID FOR* Ventral hernia with bowel obstruction [K43.6] INVALID FOR* More... 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 Follow-up and Disposition History Recorded Encounter Status:Closed by SHEILA MATTHEW CNP on 06/14/17 EMERGENCY DEPARTMENT Observed: 06/11/2017 Status: F Source: [place] SUMMARY 11:10 PM [facility] REPOSITORY [facility] Medical Records Department [address] [place] [address] Emergency Department Summary 06/11/17 2148 MR#: [id number] Acct: [id number] Name: CHRISTOPHER HOBSON Rep #: [id number] : 1960 56 From: Carla Delcid DO PCP: Tiff Pearson MD Status: DEP ER - ER Visit Summary Date of Service: 06/11/17 Chief Complaint: [] Concern for allergic reaction History of Present Illness: The patient is a 56 F [] complaining of concern for allergic reaction to Lyrica for several days to weeks. Patient reports she takes it for fibromyalgia. She reports she is still taking it. She denies chest pain or difficulty swallowing. She has not intact tracheostomy tube that she reports has been in for 2 years. She is speaking full sentences. She has a bizarre affect. Physical Examination: [] Afebrile, vital signs stable. Morbidly obese female no acute distress. HEENT reveals moist mucous membranes without any oropharyngeal erythema or swelling. There is no rash or lesions around the neck or tracheostomy tube. Cardiovascular exam is regular rate and rhythm. Lungs are clear to auscultation. Abdomen is soft and nontender. Test Results: [] None. Emergency Department Course and Treatment: [] I encouraged the patient to discontinue Lyrica if she is concerned that she is allergic to it. She was given a albuterol and DuoNeb aerosol as well as an IM shot of Kenalog. I do not feel any diagnostic or laboratory testing was warranted and I encouraged the patient to follow-up with her primary care physician. Treatment Plan: [] See above. Disposition: [] Discharge, stable. Impression: [] Allergic reaction to medication This note was generated with [employer] dictation software. It may contain incorrect words, spelling, and punctuation that were not noted in review of the chart prior to signing ED Disposition - Plan for ED Patient: Chief Complaint: Allergic Reaction Referrals: Tiff Pearson MD [Primary Care Provider] - What to do if you have Problems For any increased pain, shortness of breath, bleeding, nausea or vomiting, chest pain, or any unexpected problems, contact your Primary Care Provider. Call [facility] ([phone]) or report to the closest Emergency Room. Call 911 if necessary. 06/11/17 2310 <Electronically signed by Carla Delcid DO> Date Carla Delcid DO Cosigner Signature (If Indicated): Date CC: Tiff Pearson MD DISCHARGE INSTRUCTION Observed: 06/11/2017 Status: F Source: [place] 9:53 PM [facility] REPOSITORY [facility] Medical Records Department [address] [place] [id number] Discharge Instruction 06/11/172152 MR#: [id number] Acct: [id number] Name: JOCECHRISTOPHER A Rep #: [id number] : 1960 56 From: Carla Delcid DO PCP: Tiff Pearson MD Status: REG ER ED Disposition - Plan for ED Patient: Disposition: Home or Assisted Living Chief Complaint: Allergic Reaction Instructions: ED Drug React Allergic Referrals: Tiff Pearson MD [Primary Care Provider] - What to do if you have Problems For any increased pain, shortness of breath, bleeding, nausea or vomiting, chest pain, or any unexpected problems, contact your Primary Care Provider. Call [facility] ([phone]) or report to the closest Emergency Room. Call 911 if necessary. 06/11/172152 <Electronically signed by Carla Delcid DO> Date Carla Delcid DO Cosigner Signature (If Indicated): Date CC: Tiff Pearson MD PROGRESS Observed: 06/02/2017 Status: COMPLETED Source: [place] 10:57 AM [facility] REPOSITORY HNO ID: [id number] Author: Sylvester Holcomb Service: (none) Author Type: (none) Type: Progress Notes Filed: 06/02/2017 10:59 AM Note Text: IRB # [id number]: [employer] SLS Registry (System Longevity Study) PI: Shant Odell MD Chart review done today through last study visit / chart review on [id number]. Sylvester Holcomb Pager: [phone] CNNURSE Observed: 06/02/2017 Status: COMPLETED Source: [place] 7:00 AM [facility] REPOSITORY Nurse Visit (CARDMN) CHRISTOPHER HOBSON ([id number]) 1960 F T Date Time Provider Department 06/02/17 7:00 AM [facility]EARCH NURSE CARD SHANIA WILLIS During your visit today, we recorded the following information about you: Sylvester Holcomb 06/02/2017 10:59 AM Signed IRB # [id number]: [employer] SLS Registry (System Longevity Study) PI: Shant Odell MD Chart review done today through last study visit / chart review on [id number]. Sylvester Holcomb Pager: [phone] Referring Provider: SHANT ODELL [[id number]] Allergies As of Date: 06/02/2017 Noted Allergy Reaction CEPHALOSPORINS 04/03/2003 Comments: itching CIPROFLOXACIN 09/11/2016 10 - Anaphylaxis Comments: It was used with flagyl at the same time so uknown which is the cause CODEINE 04/03/2003 Comments: rash swelling Cherries [Other] 04/03/2003 Comments: angioedema and tongue blisters DICLOFENAC 08/28/2003 Comments: rash DILAUDID (HYDROMORPHONE (BULK)) 06/10/2015 9 - Itching FLAGYL (METRONIDAZOLE HCL) 09/11/2016 10 - Anaphylaxis Comments: It was used with flagyl at the same time so uknown which is the cause Philomena [Other] 04/03/2003 Comments: angioedematous tongue and blisters OPIOIDS - MORPHINE ANALOGUES 08/28/2003 Comments: rash PENICILLINS 04/03/2003 10 - Anaphylaxis Comments: ?anaphylaxis, patient tolerates zosyn PERCOCET (OXYCODONE-ACETAMINOPHEN)08/13/2004 9 - Itching Pears [Other] 10/09/2003 SOAP 05/30/2006 VICODIN (HYDROCODONE-ACETAMINOPHE*05/21/2009 2 - Rash ZITHROMAX (AZITHROMYCIN) 03/24/2016 2 - Rash Date Reviewed: 04/17/2017 Reviewed by: Karel Tafoya ([place]) Tracee - Fully Assessed Reason for Visit: Research F/U [778] Cmt: [facility] [id number] [facility] Registry Primary Visit Diagnosis:IRB [id number] [facility] Registry [Z00.6] Prescriptions as of 06/02/2017 Sig: MELOXICAM 7.5 MG TABLET TAKE ONE TABLET BY MOUTH EVER* GUAIFENESIN ER 600 MG TABLET,* Take 1 tablet by mouth twice * PREGABALIN 75 MG CAPSULE 1 in the morning and 2 in the* METRONIDAZOLE 500 MG TABLET Take 1 tablet by mouth three * DOXYCYCLINE MONOHYDRATE 100 M* Take 1 capsule by mouth twice* BENZONATATE 200 MG CAPSULE Take 1 capsule by mouth twice* CETIRIZINE 10 MG TABLET Take 1 tablet by mouth once d* FLUTICASONE 50 MCG/ACTUATION * Use 2 Sprays in each nostril * COMPOUNDED PRESCRIPTION Stoma check by [facility] (Z93.2) * MICONAZOLE NITRATE 2 % TOPICA* Apply 1 application to affect* BLOOD SUGAR DIAGNOSTIC STRIPS Test blood sugar(s) 4 times d* LANCETS Test blood sugar(s) 4 times d* ALCOHOL SWABS Test blood sugars 4 x's daily* GLIMEPIRIDE 2 MG TABLET Take 2 tablets by mouth daily* TRAZODONE 100 MG TABLET Take 3 tablets by mouth daily* MAGNESIUM 71.5 MG (MAGNESIUM * Take 1 tablet by mouth once d* INSULIN GLARGINE (U-100) 100 * Inject 17 Units subcutaneousl* TOPIRAMATE 100 MG TABLET Take 1 tablet by mouth once d* BUTRANS 15 MCG/HOUR TRANSDERM* Apply 1 Patch as directed daniela* MELATONIN 3 MG TABLET Take 2 tablets by mouth daily* THIOTHIXENE 2 MG CAPSULE Take 1 capsule by mouth daily* ATORVASTATIN 40 MG TABLET Take 1 tablet by mouth once d* IPRATROPIUM-ALBUTEROL 0.5 MG-* Inhale 3 mL as instructed fou* COMPOUNDED PRESCRIPTION Please perform nocturnal oxim* COMPOUNDED PRESCRIPTION Home pulse ox J96.11 BUDESONIDE-FORMOTEROL HFA 160* Inhale 2 Puffs as instructed * COMPOUNDED PRESCRIPTION Abdominal binder for ventral * PEN NEEDLE, DIABETIC 31 GAUGE* Use one needle per dose (Lant* BLOOD SUGAR DIAGNOSTIC STRIPS Test blood sugar(s) 4 times d* OMEPRAZOLE 20 MG CAPSULE,DARREN* Take 1 capsule by mouth daily* VRAYLAR 3 MG CAPSULE Take 3 mg by mouth daily at b* WHITE PETROLATUM-MINERAL OIL * Apply 1 application to affect* COMPOUNDED PRESCRIPTION Bed childs (R26.2) Difficulty * COMPOUNDED PRESCRIPTION Wheel chair (R26.2) Difficul* COMPOUNDED PRESCRIPTION Please perform nocturnal oxim* COMPOUNDED PRESCRIPTION Please perform nocturnal puls* TRIAMCINOLONE ACETONIDE 0.1 %* Apply 1 application to affect* SODIUM CHLORIDE 0.65 % NASAL * Use 1 [place] in the nose as ne* COMPOUNDED PRESCRIPTION ADHESIVE REMOVER FOR COLOSTOM* COMPOUNDED PRESCRIPTION Portable suction device Diag* COMPOUNDED PRESCRIPTION Back to previous mode of oxyg* LUBRICANTS TOPICAL GEL Apply 1 application to affect* AMANTADINE HCL 100 MG CAPSULE Take 2 capsules by mouth twic* COMPOUNDED PRESCRIPTION Perform Tracheostomy Care wit* COMPOUNDED PRESCRIPTION Hand held shower. Needs to s* FOAM BANDAGE 3.5 X 3.5 Apply 1 application to affect* Problem List As Of Date 06/02/2017 Noted Resolved DEPRESSIVE DISORDER NEC(aka DEPRESSION) [F32.9] INVALID FOR* SCHIZOPHRENIA NEC [295.8] INVALID FOR* More... MALIGNANT NEOPLASM COLON NOS(aka COLON) [C18.9] INVALID FOR* More... More... PEPTIC ULCER NOS [K27.9] INVALID FOR* Tobacco use disorder [F17.200] INVALID FOR*11/18/2011 More... Routine general medical examination at a health*INVALID FOR*02/25/2013 More... MACULAR DEGENERATION NOS [H35.30] INVALID FOR* More... Diabetes mellitus type 2, uncontrolled, without*INVALID FOR* Priority: G More... Class 2 obesity due to excess calories with bod*INVALID FOR*11/08/2016 Priority: H More... HEMATURIA NOS [R31.9] INVALID FOR* More... Hyperlipidemia [E78.5] INVALID FOR* More... HEADACHE [R51] INVALID FOR* Sleep Apnea [G47.30] INVALID FOR* More... Asthma [J45.909] Priority: D More... DM w/o complication type II [E11.9] INVALID FOR* Pain in soft tissues of limb [M79.609] INVALID FOR* Dermatophytosis of nail [B35.1] INVALID FOR* Ventral hernia [K43.9] INVALID FOR* Lunate fracture, closed [S62.123A] INVALID FOR* Acute postoperative respiratory insufficiency [*INVALID FOR*07/19/2016 Priority: C More... Bowel obstruction (HCC) [K56.609] INVALID FOR* Priority: A More... Electrolyte and fluid disorder [E87.8] INVALID FOR*03/03/2015 Priority: I More... Post-op pain [G89.18] INVALID FOR* Priority: G More... Postoperative anemia due to acute blood loss [D*INVALID FOR* Priority: F More... H/O schizophrenia [Z86.59] INVALID FOR* Priority: E More... Hypotension [I95.9] INVALID FOR* Priority: E More... Fever [R50.9] INVALID FOR* Priority: F More... Septic shock due to Escherichia coli (HCC) [A41*INVALID FOR*07/19/2016 Priority: B More... Altered mental status [R41.82] INVALID FOR*12/09/2015 Priority: D More... Hyperbilirubinemia [E80.6] INVALID FOR*03/08/2015 More... Hypernatremia [E87.0] INVALID FOR*03/14/2015 Priority: K More... Skin lesion [L98.9] INVALID FOR* Priority: I More... Mild protein-calorie malnutrition (HCC) [E44.1] INVALID FOR* Priority: K More... Electrolyte imbalance [E87.8] INVALID FOR*07/19/2016 Priority: J More... Physical deconditioning [R53.81] INVALID FOR* Priority: L More... Metabolic acidosis [E87.2] INVALID FOR*03/19/2015 Encephalopathy in sepsis [G93.41] INVALID FOR* More... Acute kidney injury (HCC) [N17.9] INVALID FOR*03/19/2015 More... Small intestinal anastomotic leak [K91.89] INVALID FOR* More... Hypernatremia [E87.0] INVALID FOR*03/19/2015 More... Fistula [L98.8] INVALID FOR* On total parenteral nutrition (TPN) [Z78.9] INVALID FOR* Scruggs catheter dysfunction (HCC) [T82.514A] INVALID FOR* Tracheostomy care (HCC) [Z43.0] INVALID FOR* Magnesium deficiency [E61.2] INVALID FOR* Tracheostomy present (HCC) [Z93.0] INVALID FOR* Hypomagnesemia [E83.42] INVALID FOR* Hematoma [T14.8XXA] INVALID FOR* SBO (small bowel obstruction) (HCC) [K56.609] INVALID FOR* Ventral hernia with bowel obstruction [K43.6] INVALID FOR* More... 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] INVALID FOR* Complete heart block (HCC) [I44.2] INVALID FOR* Cardiac pacemaker in situ [Z95.0] INVALID FOR* Right bundle branch block [I45.10] INVALID FOR* Hypoalbuminemia [E88.09] INVALID FOR* Hypoproteinemia (HCC) [E77.8] INVALID FOR* VRE bacteremia [R78.81, Z16.21] INVALID FOR* Class 1 obesity due to excess calories with ser*INVALID FOR* Encounter Status:Closed by SYLVESTER HOLCOMB on 06/02/17 PROGRESS Observed: 04/17/2017 Status: COMPLETED Source: [place] 9:44 AM [facility] [place] REPOSITORY O ID: [id number] Author: Karel Mcnair Service: (none) Author Type: Physician Hay Rake Operator Type: Progress Notes Filed: 04/17/2017 1:56 PM Note Text: Pulmonary Medicine Progress Note: Christopher Hobson [id number] Chief Complaint: Subglottic stenosis, tracheal malacia. Reason for Visit: Subglottic stenosis, tracheal malacia. HPI: Christopher Hobson is a 56 year old female former smoker with a history of subglottic stenosis, tracheal malacia, who presents today for follow-up. Past medical history of obesity, abdominal surgery status post colostomy, paranoid schizophrenia, dyslipidemia, diabetes, peptic ulcer disease, respiratory failure status post tracheostomy, subglottic stenosis, tracheal malacia. Last bronchoscopy on 07/07/15: Findings: ? ? ?GA onset via trach- one under GA a iGel LMA was place. Bronchoscopy ? ? ?performed via the LMA. The larynx is normal once below the cords there ? ? ?was only mild stenosis of the subglottic space but more malacia and some ? ? ?beefy red inflammation but no exudates/secretions- the fenstration was ? ? ?in good positon and not causing granulation. Below the trach tube- ? ? ?(scope easily passed the trach while in place) there was some mild ? ? ?scaring associated with the distal end of the tracheostomy tube. ? ? ?Down sized to a 4 Aerlon with ease and ventilating from above with the ? ? ?tube capped but already noted some malacia meeting the outside of the ? ? ?smaller tube.Lower airways normal. ? ? ?Will assess if this is tolerable- Will likely need surgical evaluation ? ? ?for resection of malacia or t-tube as retirement stratedgy. Impression: ? - No specimens collected. ? - Trach downsized to #4 Aerlon ? - consider steroid and surgical eval Recommendation: ? ? ? - Discharge patient to home (via wheelchair). Interval Events: -Now using [employer] for tracheostomy home supplies. Requesting new tracheostomy supply orders to be sent. They will call the office with contact phone/fax number. -Currently the patient has a #4 CFS shiley (this was placed approximately [address] Hernandez-local ENT). -Overall improved. Capping tracheostomy tube for majority of the day over the last few weeks. For example, on 04/12/17-2 hours, 04/13/17- 7 hours, 04/14/17-10 hours, 04/15/17-15 hours capped. -The patient requires suctioning approximately 8 times a day. Not able to cough up all of her secretions. Due to insurance/out of pocket costs the patient is re-using suction catheters (on average each catheter is used for 3-4 days per patient/). Not using saline lavage-insurance. Pulmonary secretions are occasionally brown/green in color. Pseudomonas Aeroginosa was cultured at stoma site on 03/09/17. This was sensitive to Cefepime, Ceftazidime, Gentamicin, Peperacillin/Tazobactam and Tobramycin. Patient wasn't treated with antibiotics. Performing tracheostomy care with hydrogen peroxide/saline BID and alcohol swabs in-between. -Patient doesn't require supplemental oxygen therapy. Likely has YENY, but hasn't undergone a sleep study. Not sleeping well at night. She has been diagnosed with Fibromylagia, and notes having generalized arthralgia/myalgia. -Able to walk approximately 50 feet on a flat surface. Has intermittent wheezing. -No recent fever, chills or night sweats. -Appetite and weight are stable. Patient taking glycerna three times a day. -Denies any CP, palpitations or lower extremity edema. Patient to have pacemaker check today. 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 - Unspecified migraine 1998 FAMILY HISTORY Problem Relation Age of Onset - Pneumonia [OTHER] Mother - Heart Father - Thyroid Daughter - Thyroid Daughter ALLERGIES Allergen Reactions - Cephalosporins itching - Ciprofloxacin Anaphylaxis It was used with flagyl at the same time so uknown which is the cause - Codeine rash swelling - Cherries [Other] angioedema and tongue blisters - Diclofenac rash - Dilaudid [H[employer]romorp* Itching - Flagyl [Metronidazo* Anaphylaxis It was used with flagyl at the same time so uknown which is the cause - Philomena [Other] angioedematous tongue and blisters - Opioids - Morphine * rash - Penicillins Anaphylaxis ?anaphylaxis, patient tolerates zosyn - Percocet [Oxycodone* Itching - Pears [Other] - Soap - Vicodin [Hydrocodon* Rash - Zithromax [Azithrom* Rash Social History Marital status: Spouse name: Alphonso Years of education: Number of children: 4 Social History Main Topics Smoking status: Former Smoker Packs/day: 2.00 Years: 45.00 Types: Cigarettes Start date: 1965 Quit date: 08/27/2010 Smokeless status: Never Used Alcohol use: No Drug use: Yes Comment: Cocaine abuse, quit before 1999. Sexual activity: Yes Partners with: Male meloxicam (MOBIC) 7.5 mg tablet TAKE ONE TABLET BY MOUTH EVERY DAY ON a full stomach guaiFENesin (MUCINEX) 600 mg 12 hr tablet Take 1 tablet by mouth twice daily. pregabalin (LYRICA) 75 mg capsule 1 in the morning and 2 in the evening metroNIDAZOLE (FLAGYL) 500 mg tablet Take 1 tablet by mouth three times daily. doxycycline monohydrate (MONODOX) 100 mg capsule Take 1 capsule by mouth twice daily. Benzonatate (TESSALON) 200 mg capsule Take 1 capsule by mouth twice daily as needed for Cough. cetirizine (ZYRTEC) 10 mg tablet Take 1 tablet by mouth once daily. fluticasone (FLONASE) 50 mcg/actuation nasal spray Use 2 Sprays in each nostril once daily. Rinse mouth after use. COMPOUNDED PRESCRIPTION Stoma check by [facility] (Z93.2) Ileostomy in place (HCC) miconazole (CADENCE ANTIFUNGAL) 2 % cream Apply 1 application to affected area twice daily. To perirectal and buttocks area blood sugar diagnostic (BLOOD GLUCOSE TEST) test strip Test blood sugar(s) 4 times daily and as needed as directed. Dx: Type 2 DM - Uncontrolled E11.65 Insulin: Yes Lancets lancets Test blood sugar(s) 4 times daily as directed. Dx: Type 2 DM - Uncontrolled E11.65 Insulin: Yes alcohol swabs (SURE-PREP ALCHOLOL PREP PADS) padm Test blood sugars 4 x's daily. Dx: E11.65 Insulin: Yes glimepiride (AMARYL) 2 mg tablet Take 2 tablets by mouth daily with breakfast. traZODone (DESYREL) 100 mg tablet Take 3 tablets by mouth daily at bedtime. ([facility]) Magnesium Chloride (SLOW-MAG) 71.5 mg TbEC Take 1 tablet by mouth once daily. insulin glargine (LANTUS SOLOSTAR) 100 unit/mL (3 mL) inpn Inject 17 Units subcutaneously daily at bedtime. (patient instructed to increase dose, but as of October 17, 2016, had not yet increased) topiramate (TOPAMAX) 100 mg tablet Take 1 tablet by mouth once daily. Per psychiatrist MONIQUE 15 mcg/hour ptwk Apply 1 Patch as directed every Monday. Per Dr. Trevizo melatonin 3 mg Take 2 tablets by mouth daily at bedtime. thiothixene (NAVANE) 2 mg capsule Take 1 capsule by mouth daily at bedtime. Per psychiatryLorene, MARY atorvastatin (LIPITOR) 40 mg tablet Take 1 tablet by mouth once daily. ipratropium-albuterol (DUONEB) 0.5 mg-3 mg(2.5 mg base)/3 mL nebu Inhale 3 mL as instructed four times daily as needed (wheezing). Use over 5-15minutes per nebulizer. COMPOUNDED PRESCRIPTION Please perform nocturnal oximetry on 6 lpm trach mask. Dx: chronic hypoxemic respiratory failure J96.11. Please fax results to [phone]. COMPOUNDED PRESCRIPTION Home pulse ox J96.11 budesonide-formoterol (SYMBICORT) 160-4.5 mcg/actuation inhaler Inhale 2 Puffs as instructed twice daily. COMPOUNDED PRESCRIPTION Abdominal binder for ventral hernia K43.9 insulin needles, DISPOSABLE, (PEN NEEDLE) 31 gauge x 5/16 ndle Use one needle per dose (Lantus and Humalog). 5 per day. blood sugar diagnostic (FREESTYLE INSULINX) test strip Test blood sugar(s) 4 times daily and as needed. Dx: Type 2 DM - Uncontrolled E11.65 Insulin: Yes omeprazole (PRILOSEC) 20 mg capsule Take 1 capsule by mouth daily before breakfast. 1/2 hr before meal. VRAYLAR 3 mg cap Take 3 mg by mouth daily at bedtime. white petrolatum-mineral oil (EUCERIN) cream Apply 1 application to affected area as needed for Dry Skin (all dry skin areas). COMPOUNDED PRESCRIPTION Bed childs (R26.2) Difficulty ambulating due to knee COMPOUNDED PRESCRIPTION Wheel chair (R26.2) Difficulty ambulating due to knee COMPOUNDED PRESCRIPTION Please perform nocturnal oximetry on 5 lpm O2 via trach mask. Please fax results to [phone]. DX: Chronic hypoxemic respiratory failure, J96.11. COMPOUNDED PRESCRIPTION Please perform nocturnal pulse oximetry on 3 lpm O2 via trach collar.DX: Chronic hypoxemic respiratory failure, trach dependence triamcinolone acetonide (KENALOG) 0.1 % cream Apply 1 application to affected area three times daily. Apply sparingly to area for rash/itching till rash resolves. For contact dermatitis sodium chloride (SALINE MIST) 0.65 % nasal spray Use 1 [place] in the nose as needed for Cold/Allergy Symptoms. Dispense 1 bottle (not 1 ml) COMPOUNDED PRESCRIPTION ADHESIVE REMOVER FOR COLOSTOMY BAG REMOVAL DX Z93.3 COMPOUNDED PRESCRIPTION Portable suction device Diagnoses: (Z93.0) Tracheostomy status (HCC);(Z43.0) Tracheostomy care (HCC);(J39.8) Increased tracheal secretions COMPOUNDED PRESCRIPTION Back to previous mode of oxygen (LOX) 2L daytime, 3L at night. Lubricants (K-Y LUBRICATING) gel Apply 1 application to affected area as needed (Use as needed for Tracheostomy changes). amantadine HCl (SYMMETREL) 100 mg capsule Take 2 capsules by mouth twice daily. (Dr. Dupree) COMPOUNDED PRESCRIPTION Perform Tracheostomy Care with provided Tracheostomy Kit once daily or as needed for irritated stoma. May change split guaze sponge dressing as needed. COMPOUNDED PRESCRIPTION Hand held shower. Needs to sit while showering and use hand held shower. (R53.81) Physical deconditioning; (R26.89) Difficulty balancing when reaching Foam Bandage (ALLEVYN TRACHEOSTOMY DRESSING) 3.5 X 3.5 bndg Apply 1 application to affected area twice daily. Labs: Hemoglobin (g/dL) Date Value 09/29/2016 8.7 Hematocrit (%) Date Value 09/29/2016 28.2 WBC (k/uL) Date Value 09/29/2016 7.81 Platelet Count (k/uL) Date Value 09/29/2016 269 CMP: Glucose 243 09/29/2016 BUN 18 09/29/2016 Creatinine, Whole Blood (iSTAT) 1.22 09/29/2016 Sodium 136 09/29/2016 Potassium 4.2 09/29/2016 Chloride 99 09/29/2016 CO2 Content, Venous 25 09/29/2016 Protein, Total 6.2 09/22/2016 Albumin 3.3 09/22/2016 Calcium 9.2 09/29/2016 Alkaline Phosphatase 63 09/22/2016 Bilirubin, Total 0.6 09/22/2016 AST 9 09/22/2016 ALT 6 09/22/2016 Imaging: No recent imaging is available for review. REVIEW OF SYSTEMS PAIN ASSESSMENT: Negative for pain, history of chronic pain, or current treatment for a chronic pain condition. GENERAL: No weight loss, malaise or fevers HEENT: Negative for frequent or significant headaches, No changes in hearing or vision, no nose bleeds or other nasal problems NECK: See HPI RESPIRATORY: See HPI CARDIOVASCULAR: Negative for chest pain, leg swelling, hypertension, CHF or palpitations GI: Positive for colostomy bag in place. MUSCULOSKELETAL: See HPI SKIN: Negative for lesions, rash, and itching HEMATOLOGY/LYMPHOLOGY: Negative for prolonged bleeding, bruising easily or swollen nodes ENDOCRINE: Negative for cold or heat intolerance, polyuria, polydipsia and goiter NEURO: No history of headaches, syncope, paralysis, seizures or tremors BP 134/61 Pulse 83 Temp 36.8 ?C (98.2 ?F) (Oral) Resp 20 SpO2 95% General Appearance: Well appearing, alert, in no acute distress, well-hydrated, well nourished. Sitting in a wheelchair. Skin: Skin color, texture, turgor normal, no suspicious rashes or lesions. Head: Normocephalic, no masses, lesions, tenderness or abnormalities. Eyes: Anicteric sclera. Pupils are equally round and reactive to light. Extraocular movements are intact. . Nose/Sinuses: Nares normal, septum midline, mucosa normal, no drainage or sinus tenderness. Oropharynx: Lips, mucosa, and tongue normal, teeth and gums normal, oropharynx normal. Neck: #[address] Lungs: Lungs clear to auscultation. Diminished bilateral. Heart: RRR without murmur, gallop, or rubs. No ectopy. Abdomen: Normal abdominal exam, Abdomen soft, non-tender. Bowel sounds normal. No masses, organomegaly. Extremities: No deformities, edema, skin discoloration, clubbing or cyanosis. Good capillary refill. . Musculoskeletal: No joint swelling, deformity, or tenderness. Peripheral Pulses: Normal. Neurologic: Oriented X 3. Impression/Plan: The patient is a 56-year-old female with a past medical history of obesity, small bowel resection status post colostomy, paranoid schizophrenia, dyslipidemia, diabetes, peptic ulcer disease, respiratory failure status post tracheostomy placement, subglottic stenosis, tracheomalacia, likely obstructive sleep apnea. (Z93.0) Tracheostomy present (HCC) (primary encounter diagnosis) Comment: Patient has been capping her tracheostomy for up to 15 hours a day. Currently has a #4 CFS Shiley tracheostomy. Plan: I asked her to continue capping the tracheostomy during the day for as long as tolerated. She can uncap her tracheostomy tube at night, to apply humidified oxygen. I asked her to try to cough/mobilize her secretions and to use normal saline lavage to help thin and loosen secretions. I suggested that the patient follow-up with Dr. Alvarez in approximately 2-3 months for a tracheostomy tube change/consider changing to #4 Airlon tracheostomy if she continues to tolerate capping and able to manage/mobilize her secretions. She also is seen by Dr. Hernandez- [facility] who had changed her tracheostomy in the past. The patient resides in [place], [place] and has difficulty with transportation. (J39.8) Tracheal stenosis Comment: Patient phonating well with tracheostomy capped. Up to 15 hours daily. No SOB in office. Not on home oxygen. Plan: See above. (J39.8) Tracheomalacia, acquired Comment: She likely has YENY based on BMI, body habitus and patient complaint of insomnia. No sleep study has been performed. Plan: Discussed plan for weight loss and increase exercise as tolerated to help with tracheomalacia. (A49.8) Pseudomonas aeruginosa infection Comment: Pseudomonas was cultured from the stoma site in March of this year. Plan: No evidence of active infection at this time. Upon further questioning, the patient was reusing suction catheters for approximately 32 uses before disposing of it. I asked the patient to try to mobilize her own secretions, using saline lavage (some were given to patient/), and to prevent infection, use new suction catheter kits everytime she requires suctioning. Signature: Karel Mcnair PA-C Date: April 17, 2017 Time: 9:44 AM OBSOLETE Observed: 03/31/2017 Status: COMPLETED Source: [place] 12:00 AM [facility] REPOSITORY Refill (INTMWS) CHRISTOPHER HOBSON ([id number]) 1960 F [facility] Date Time Provider Department 03/31/17 TIFF PEARSON INTMWS During your visit today, we recorded the following information about you: Linda Platt LPN 03/31/2017 4:52 PM Signed Patient is completely out of medication. Asking for this to be done today. Also requesting a call when it is completed. Patient has been identified by name and date of : Yes Patient phones for refill(s): Pending Prescriptions Disp Refills PSEUDOEPHEDRINE-GUAIFENESIN ER 120 MG-1,200 MG TAB,EXTEND RELEASE 12HR 20 tablet 0 Sig: Take 1 tablet by mouth twice daily as needed (congestion) for up to 10 days. NUBIA: No Date of last office visit in primary care: 03/03/17 Last 2 Encounter Wt Readings: Date: Wt: 03/10/2017 88 kg (194 lb) 02/02/2017 86.9 kg (191 lb 9.6 oz) Previous labs/tests for medication: Not applicable Please advise. Thank you. Linda Pearson MD 03/31/2017 8:14 PM Signed Okayed Allergies As of Date: 03/31/2017 Noted Allergy Reaction CEPHALOSPORINS 04/03/2003 Comments: itching CIPROFLOXACIN 09/11/2016 10 - Anaphylaxis Comments: It was used with flagyl at the same time so uknown which is the cause CODEINE 04/03/2003 Comments: rash swelling Cherries [Other] 04/03/2003 Comments: angioedema and tongue blisters DICLOFENAC 08/28/2003 Comments: rash DILAUDID (HYDROMORPHONE (BULK)) 06/10/2015 9 - Itching FLAGYL (METRONIDAZOLE HCL) 09/11/2016 10 - Anaphylaxis Comments: It was used with flagyl at the same time so uknown which is the cause Philomena [Other] 04/03/2003 Comments: angioedematous tongue and blisters OPIOIDS - MORPHINE ANALOGUES 08/28/2003 Comments: rash PENICILLINS 04/03/2003 10 - Anaphylaxis Comments: ?anaphylaxis, patient tolerates zosyn PERCOCET (OXYCODONE-ACETAMINOPHEN)08/13/2004 9 - Itching Pears [Other] 10/09/2003 SOAP 05/30/2006 VICODIN (HYDROCODONE-ACETAMINOPHE*05/21/2009 2 - Rash ZITHROMAX (AZITHROMYCIN) 03/24/2016 2 - Rash Date Reviewed: 03/16/2017 Reviewed by: Lorena (Enrique) Wren - Fully Assessed Reason for Visit: Refill Request [94] Visit Diagnosis:Nasal congestion [R09.81] Order(s):Pseudoephedrine-guaiFENesin (MUCINEX D MAXIMUM STRENGTH) 120-1,200 mg [id number] 1 tablet by mouth twice daily as needed (congestion) for up to 10 days.Disp: 20 tabletRfl: 0 Prescriptions as of 03/31/2017 Sig: PSEUDOEPHEDRINE-GUAIFENESIN E* Take 1 tablet by mouth twice * PREGABALIN 75 MG CAPSULE 1 in the morning and 2 in the* METRONIDAZOLE 500 MG TABLET Take 1 tablet by mouth three * DOXYCYCLINE MONOHYDRATE 100 M* Take 1 capsule by mouth twice* BENZONATATE 200 MG CAPSULE Take 1 capsule by mouth twice* CETIRIZINE 10 MG TABLET Take 1 tablet by mouth once d* FLUTICASONE 50 MCG/ACTUATION * Use 2 Sprays in each nostril * COMPOUNDED PRESCRIPTION Stoma check by [facility] (Z93.2) * MICONAZOLE NITRATE 2 % TOPICA* Apply 1 application to affect* BLOOD SUGAR DIAGNOSTIC STRIPS Test blood sugar(s) 4 times d* LANCETS Test blood sugar(s) 4 times d* ALCOHOL SWABS Test blood sugars 4 x's daily* GLIMEPIRIDE 2 MG TABLET Take 2 tablets by mouth daily* TRAZODONE 100 MG TABLET Take 3 tablets by mouth daily* MAGNESIUM 71.5 MG (MAGNESIUM * Take 1 tablet by mouth once d* INSULIN GLARGINE 100 UNIT/ML * Inject 17 Units subcutaneousl* TOPIRAMATE 100 MG TABLET Take 1 tablet by mouth once d* BUTRANS 15 MCG/HOUR TRANSDERM* Apply 1 Patch as directed daniela* MELATONIN 3 MG TABLET Take 2 tablets by mouth daily* THIOTHIXENE 2 MG CAPSULE Take 1 capsule by mouth daily* ATORVASTATIN 40 MG TABLET Take 1 tablet by mouth once d* IPRATROPIUM-ALBUTEROL 0.5 MG-* Inhale 3 mL as instructed fou* COMPOUNDED PRESCRIPTION Please perform nocturnal oxim* COMPOUNDED PRESCRIPTION Home pulse ox J96.11 BUDESONIDE-FORMOTEROL HFA 160* Inhale 2 Puffs as instructed * COMPOUNDED PRESCRIPTION Abdominal binder for ventral * PEN NEEDLE, DIABETIC 31 GAUGE* Use one needle per dose (Lant* BLOOD SUGAR DIAGNOSTIC STRIPS Test blood sugar(s) 4 times d* OMEPRAZOLE 20 MG CAPSULE,DARREN* Take 1 capsule by mouth daily* VRAYLAR 3 MG CAPSULE Take 3 mg by mouth daily at b* WHITE PETROLATUM-MINERAL OIL * Apply 1 application to affect* COMPOUNDED PRESCRIPTION Bed childs (R26.2) Difficulty * COMPOUNDED PRESCRIPTION Wheel chair (R26.2) Difficul* COMPOUNDED PRESCRIPTION Please perform nocturnal oxim* COMPOUNDED PRESCRIPTION Please perform nocturnal puls* TRIAMCINOLONE ACETONIDE 0.1 %* Apply 1 application to affect* SODIUM CHLORIDE 0.65 % NASAL * Use 1 [place] in the nose as ne* COMPOUNDED PRESCRIPTION ADHESIVE REMOVER FOR COLOSTOM* COMPOUNDED PRESCRIPTION Portable suction device Diag* COMPOUNDED PRESCRIPTION Back to previous mode of oxyg* LUBRICANTS TOPICAL GEL Apply 1 application to affect* AMANTADINE HCL 100 MG CAPSULE Take 2 capsules by mouth twic* COMPOUNDED PRESCRIPTION Perform Tracheostomy Care wit* COMPOUNDED PRESCRIPTION Hand held shower. Needs to s* FOAM BANDAGE 3.5 X 3.5 Apply 1 application to affect* Problem List As Of Date 03/31/2017 Noted Resolved DEPRESSIVE DISORDER NEC(aka DEPRESSION) [F32.9] INVALID FOR* SCHIZOPHRENIA NEC [295.8] INVALID FOR* More... MALIGNANT NEOPLASM COLON NOS(aka COLON) [C18.9] INVALID FOR* More... More... PEPTIC ULCER NOS [K27.9] INVALID FOR* Tobacco use disorder [F17.200] INVALID FOR*11/18/2011 More... Routine general medical examination at a [facility]*INVALID FOR*02/25/2013 More... MACULAR DEGENERATION NOS [H35.30] INVALID FOR* More... Diabetes mellitus type 2, uncontrolled, without*INVALID FOR* Priority: G More... Class 2 obesity due to excess calories with bod*INVALID FOR*11/08/2016 Priority: H More... HEMATURIA NOS [R31.9] INVALID FOR* More... Hyperlipidemia [E78.5] INVALID FOR* More... HEADACHE [R51] INVALID FOR* Sleep Apnea [G47.30] INVALID FOR* More... Asthma [J45.909] Priority: D More... DM w/o complication type II [E11.9] INVALID FOR* Pain in soft tissues of limb [M79.609] INVALID FOR* Dermatophytosis of nail [B35.1] INVALID FOR* Ventral hernia [K43.9] INVALID FOR* Lunate fracture, closed [S62.123A] INVALID FOR* Acute postoperative respiratory insufficiency [*INVALID FOR*07/19/2016 Priority: C More... Bowel obstruction (HCC) [K56.609] INVALID FOR* Priority: A More... Electrolyte and fluid disorder [E87.8] INVALID FOR*03/03/2015 Priority: I More... Post-op pain [G89.18] INVALID FOR* Priority: G More... Postoperative anemia due to acute blood loss [D*INVALID FOR* Priority: F More... H/O schizophrenia [Z86.59] INVALID FOR* Priority: E More... Hypotension [I95.9] INVALID FOR* Priority: E More... Fever [R50.9] INVALID FOR* Priority: F More... Septic shock due to Escherichia coli (HCC) [A41*INVALID FOR*07/19/2016 Priority: B More... Altered mental status [R41.82] INVALID FOR*12/09/2015 Priority: D More... Hyperbilirubinemia [E80.6] INVALID FOR*03/08/2015 More... Hypernatremia [E87.0] INVALID FOR*03/14/2015 Priority: K More... Skin lesion [L98.9] INVALID FOR* Priority: I More... Mild protein-calorie malnutrition (HCC) [E44.1] INVALID FOR* Priority: K More... Electrolyte imbalance [E87.8] INVALID FOR*07/19/2016 Priority: J More... Physical deconditioning [R53.81] INVALID FOR* Priority: L More... Metabolic acidosis [E87.2] INVALID FOR*03/19/2015 Encephalopathy in sepsis [G93.41] INVALID FOR* More... Acute kidney injury (HCC) [N17.9] INVALID FOR*03/19/2015 More... Small intestinal anastomotic leak [K91.89] INVALID FOR* More... Hypernatremia [E87.0] INVALID FOR*03/19/2015 More... Fistula [L98.8] INVALID FOR* On total parenteral nutrition (TPN) [Z78.9] INVALID FOR* Scruggs catheter dysfunction ([facility]) [T82.514A] INVALID FOR* Tracheostomy care ([facility]) [Z43.0] INVALID FOR* Magnesium deficiency [E61.2] INVALID FOR* Tracheostomy present ([facility]) [Z93.0] INVALID FOR* Hypomagnesemia [E83.42] INVALID FOR* Hematoma [T14.8XXA] INVALID FOR* SBO (small bowel obstruction) ([facility]) [K56.609] INVALID FOR* Ventral hernia with bowel obstruction [K43.6] INVALID FOR* More... 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 Medications Discontinued During This Encounter Pseudoephedrine-guaiFENesin (MUCINEX* 20 t* 0 03/17/2017 03/31/2017 Route: ORAL Sig: Take 1 tablet by mouth twice daily as needed (congestion) for up to 10 days. Disc: Reason for discontinue is not on file. Encounter Status:Closed by NARGIS JENNINGS CMA on 04/03/17 ALLERGIES ALLERGIES DATE TYPE / CODE NAME / CODE REACTION SEVERITY SOURCE Drug hydromorphone Rash Unknown [place] 8 Allergy/[id number] HCl/[id number](RXN [facility] (SNOMED [facility]) ORM) [facility] Repository Drug hydrocodone Rash Unknown [place] 8 Allergy/[id number] bitartrate/T777470 [facility] (SNOMED [facility]) 555(RXNORM) Hospital Repository Drug Opioids - Morphine Rash Unknown [place] Allergy/038885790 Analogues/Z2553112 [facility] (SNOMED CT) 68(RXNORM) Hospital Repository Drug Penicillins/E21176 Anaphylaxis Unknown [place] 8 Allergy/075429508 0476(RXNORM) [facility]SNOM[facility] Repository Drug Cephalosporins/F00 Rash Unknown [place] Allergy/107657451 7855445(RXNORM) [facility] (SNOMED [facility] Hospital Repository Drug Sulfa (Sulfonamide Rash Unknown [place] Allergy/878757142 Antibiotics)/F0010 [facility] (SNOMED CT) 96313(RXNORM) Hospital Repository Drug codeine/[id number] Rash Unknown [place] 8 Allergy/251138999 (RXNORM) [facility] (SNOMED [facility] Hospital Repository Drug azithromycin/F0060 Rash Unknown [place] 8 Allergy/275013570 20792(RXNORM) [facility] (SNOMED [facility] Hospital Repository Drug diclofenac/D285885 Rash Unknown [place] 8 Allergy/058229990 409(RXNORM) [facility] (SNOMED [facility] Hospital Repository Miscellaneous cherries Angioedema Unknown [place] [facility] Allergy/325209207 [facility] (SNOMED CT) Hospital Repository Miscellaneous philomena Angioedema Unknown [place] 8 Allergy/649003433 [facility] (SNOMED [facility]) Hospital Repository Miscellaneous pears Unknown Unknown [place] 8 Allergy/546833701 [facility] (SNOMED [facility]) Hospital Repository Miscellaneous soap Unknown Unknown [place] 8 Allergy/406477845 [facility] (SNOMED CT) Hospital Repository DRUG PREGABALIN SWELLING [place] INGREDI/503935164 [facility] (SNOMED CT) [place] Repository DRUG CIPROFLOXACIN ANAPHYLAXIS [place] INGREDI/293342548 [facility] (SNOMED CT) [place] Repository DRUG METRONIDAZOLE HCL ANAPHYLAXIS [place] INGREDI/562642232 [facility] (SNOMED CT) [place] Repository DRUG AZITHROMYCIN RASH [place] INGREDI/553747000 [facility] (SNOMED CT) [place] Repository DRUG/[id number](SN HYDROMORPHONE ITCHING [place] [address]) (BULK) Clinic Main [place] Repository DRUG/[id number](SN HYDROCODONE-ACETAM RASH [place] [address]) INOPHEN [facility] [place] Repository DRUG SOAP [place] INGREDI/092163590 [facility] (SNOMED CT) [place] Repository DRUG/[id number](SN OXYCODONE-ACETAMIN ITCHING [place] [address]) OPHEN [facility] Main [place] Repository Miscellaneous OTHER [place] 4 Allergy/933436826 [facility] (SNOMED CT) [place] Repository DRUG DICLOFENAC [place] INGREDI/533825991 [facility] (SNOMED CT) [place] Repository Drug OPIOIDS - MORPHINE [place] Class/886855394(S ANALOGUES [facility] NOMED [facility]) [place] Repository Drug CEPHALOSPORINS [place] 4 Class/301625282(S [facility] NOMED [facility]) [place] Repository DRUG CODEINE [place] 4 INGREDI/812774247 [facility] (SNOMED CT) [place] Repository Drug PENICILLINS ANAPHYLAXIS [place] 4 Class/958943518(S [facility] Main NOMED CT) [place] Repository ENCOUNTERS ENCOUNTERS ADMIT/DISCHARGE ACCOUNT ADMITTING ENCOUNTER LOCATION SOURCE NUMBER CLASS 03/15/2018/03/15/19 [id number] Ambulatory [address] [place] Repository 03/07/2018 [id number] [facility] ing:MRI Repository 02/22/2018 [id number] [facility] ing:SL Repository 02/21/2018/02/22/20 [id number] Ambulatory BMSBuilding:B [place] [address] [place].[facility] Repository 02/01/2018/02/13/20 [id number] Ambulatory [address] [place] Repository 02/01/2018/02/06/20 [id number] Ambulatory [address] [place] Repository 02/01/2018/02/06/20 [id number] Ambulatory [address] [place] Repository 01/24/2018/02/08/20 [id number] Ambulatory [address] Main [place] Repository 01/19/2018/01/23/20 [id number] Ambulatory [address] [place] Repository 01/10/2018 [id number] [facility] ing:LAB Repository 01/05/2018/03/28/19 [id number] Ambulatory [address] Main [place] Repository 12/20/2017/12/21/19 [id number] Ambulatory [address] [place] Repository 12/11/2017 [id number] [facility] Repository 12/04/2017/12/05/19 [id number] Ambulatory [address] [facility] ing:SDCRoom: Repository AC01 12/04/2017 [id number] Ambulatory BMSBuilding:W [facility] Repository 11/20/2017/11/21/19 [id number] Ambulatory BMSBuilding:Carie Shafer 18 [place].[facility] Repository 11/15/2017/11/16/19 [id number] Ambulatory [address] Repository 11/15/2017/11/16/19 [id number] Ambulatory [address] Repository 11/14/2017/11/15/19 [id number] Ambulatory [address] Repository 11/13/2017/11/15/19 [id number] Ambulatory [address] Repository 11/08/2017 [id number] [facility] 11/08/2017 [id number] Ambulatory BMSBuilding:W [facility] Repository 11/01/2017/11/02/19 [id number] Ambulatory BMSBuilding:B [place] [address] [place] Repository 10/31/2017 [id number] Ambulatory BMSBuilding:Carie Shafer MS.[facility] Repository 10/27/2017/11/03/19 [id number] Ambulatory [address] Repository 09/27/2017/09/28/19 [id number] Ambulatory [address] Repository 09/05/2017/09/09/19 [id number] Ambulatory [address] Repository 08/28/2017/08/29/19 [id number] Emergency [address] [facility] ing:ED Repository 08/23/2017/08/26/19 [id number] Ambulatory [address] Repository 08/15/2017/08/17/19 [id number] Ambulatory [address] Repository 07/24/2017/08/09/19 [id number] Ambulatory [address] [place] Repository 07/10/2017/07/12/19 [id number] Ambulatory [address] Repository 07/04/2017/07/05/19 [id number] Ambulatory [address] Repository 06/14/2017 [id number] Ambulatory [facility] Repository 06/14/2017/06/17/19 [id number] Ambulatory [address] Repository 06/11/2017/06/12/19 [id number] Emergency [place] [facility] [address] [place] [address] ing:ED Repository 06/02/2017/06/03/19 [id number] Ambulatory [address] Repository 04/17/2017/04/17/19 [id number] Ambulatory [address] Repository 04/17/2017/04/18/19 [id number] Ambulatory [address] Repository PAYERS PAYERS ENCOUNTER GUARANTOR PAYER SUBSCRIBER SOURCE 03/07/2018 CHRISTOPHER A Primary CHRISTOPHER A [place] [id number] TR Insurance:CARESOURCEP MCINTIREDOB: [address] Number: [id number] [facility] [address]Kiv: 330 [id number] Repository [phone] () Date:2018-02-13 [address]ATTN: [place] [address]JI: 03/07/2018 Secondary NOT GIVENUNK [place] Insurance:SELF PAY [facility] Number: Effective Repository Date:2018-02-20 02/22/2018 CHRISTOPHER A Primary CHRISTOPHER A [place] [id number] TR Insurance:CARESOURCEP MCINTIREDOB: [address] Number: [id number] [facility] [address]Rrm: 330 [id number] Repository [phone] () Date:2018-02-02[address]ATTN: [place] [address]OZ: 02/22/2018 Secondary NOT GIVENUNK [place] Insurance:SELF PAY [facility] Number: Effective Repository Date:2018-02-02 02/21/2018 CHRISTOPHER A Primary CHRISTOPHER A [place] [id number] TR Insurance:CARESOURCEP MCINTIREDOB: [address] Number: [id number] Hospital [address]Nyr: [phone]) [id number] Repository [phone] () Date:2018-01-29P [address]ATTN: [place] [address]CS: 02/21/2018 Secondary NOT GIVENUNK [place] Insurance:SELF PAY [facility] Number: Effective Repository Date:2018-02-21 01/10/2018 CHRISTOPHER A Primary CHRISTOPHER A [place] [id number] TR Insurance:CARESOURCEP MCINTIREDOB: [address] Number: [id number] Hospital [address]Izw: [phone]) [id number] Repository [phone] () Date:2018-01-10[address]ATTN: [place] [address]CF: 01/10/2018 Secondary NOT GIVENUNK [place] Insurance:SELF PAY [facility] Number: Effective Repository Date:2018-01-10 12/11/2017 CHRISTOPHER A Primary CHRISTOPHER A [place] [id number] TR Insurance:CARESOURCEP MCINTIREDOB: [address] Number: [id number] [facility] [address]Ytb: [phone]) [id number] Repository [phone] () Date:2017-12-11[address]ATTN: [place] [address]IL: 12/11/2017 Secondary NOT GIVENUNK [place] Insurance:SELF PAY [facility] Number: Effective Repository Date:2017-12-11 12/04/2017 CHRISTOPHER A Primary CHRISTOPHER A [place] [id number] TR Insurance:CARESOURCEP MCINTIREDOB: [address] Number: [id number] Hospital [address]Jhf: [phone] [id number] Repository [phone] () Date:2017-10-12P [address]ATTN: [place] [address]MA: 12/04/2017 Secondary NOT GIVENUNK [place] Insurance:SELF PAY [facility] Number: Effective Repository Date:2017-10-12 12/04/2017 CHRISTOPHER A Primary CHRISTOPHER A [place] [id number] TR Insurance:CARESOURCEP MCINTIREDOB: [address] Number: [id number] Hospital [address]Wch: 330 [id number] Repository [phone] () Date:2017-10-12P [address]ATTN: [place] [address]BJ: 12/04/2017 Secondary NOT GIVENUNK [place] Insurance:SELF PAY [facility] Number: Effective Repository Date:2017-12-04 11/20/2017 CHRISTOPHER A Primary CHRISTOPHER A [place] [id number] TR Insurance:CARESOURCEP MCINTIREDOB: [address] Number: [id number] [facility] [address]Sma: ([phone]) [id number] Repository [phone] () Date:2017-10-25P [address]ATTN: [place] [address]II: 11/20/2017 Secondary NOT GIVENUNK [place] Insurance:SELF PAY [facility] Number: Effective Repository Date:2017-11-17 11/08/2017 CHRISTOPHER A Primary CHRISTOPHER A [place] [id number] TR Insurance:CARESOURCEP MCINTIREDOB: [address] Number: [id number] Hospital [address]Hsi: [phone]) [id number] Repository [phone] () Date:2017-11-01P [address]ATTN: [place] [address]CS: 11/08/2017 Secondary NOT GIVENUNK [place] Insurance:SELF PAY [facility] Number: Effective Repository Date:2017-11-01 11/08/2017 CHRISTOPHER A Primary CHRISTOPHER A [place] [id number] TR Insurance:CARESOURCEP [address]OB: [address] Number: [id number] Hospital [address]Qln: [phone]) [id number] Repository [phone] () Date:2017-11-01P [address]ATTN: [place] [address]QT: 11/08/2017 Secondary NOT GIVENUNK [place] Insurance:SELF PAY [facility] Number: Effective Repository Date:2017-11-08 11/01/2017 CHRISTOPHER A Primary CHRISTOPHER A [place] [id number] Insurance:CARESOURCEP MCINTIREDOB: [facility] Number: [id number] [id number] Repository [phone]: [phone]) Date:2017-10-25P O [phone] () [address]ATTN: [place] [address]WK: 11/01/2017 Secondary NOT GIVENUNK [place] Insurance:SELF PAY [facility] Number: Effective Repository Date:2017-11-01 10/31/2017 CHRISTOPHER A Primary NOT GIVENUNK [place] [id number] Insurance:SELF PAY [address] Number: Effective Repository [phone]: ([phone]) Date:2017-10-31 [phone] () 08/28/2017 CHRISTOPHER A Primary CHRISTOPHER A [place] [id number] TR Insurance:CARESOURCEP MCINTIREDOB: [address] Number: [id number] Hospital [address]Fkc: [phone]) [id number] Repository [phone] () Date:2017-08-28[address]ATTN: [place] [address]RB: 08/28/2017 Secondary NOT GIVENUNK [place] Insurance:SELF PAY [facility] Number: Effective Repository Date:2017-08-28 06/11/2017 CHRISTOPHER A Primary CHRISTOPHER A [place] [id number] TR [facility] [address] Number: [id number] Hospital [address]Rzq: [phone]) [id number] Repository [phone] () Date:2017-06-11P [address]ATTN: [place] [address]UQ: 06/11/2017 Secondary NOT GIVENUNK [place] Insurance:SELF PAY [facility] Number: Effective Repository Date:2017-06-11
== END ==
PROVIDERS: Family Provider Internal Medicine; PCP Internal Medicine; Referring Provider Anesthesiology Pain Medicine; Visit Provider Anesthesiology Pain Medicine
DX: M54.9 Dorsalgia, unspecified (principal); M79.606 Pain in leg, unspecified
CPT/HCPCS: 72148

== ENCOUNTER 2018-04-27 15:14 | Emergency (ER) | payer MEDICAID, SELFPAY ==
[2018-04-27 15:14] VITALS: BP 168/84; PULSE 97; RESP 16; TEMP 37.2; O2SAT 97; BMI 35.2
--- NOTE | 2018-04-27 15:30 | CT_ITS ---
We are attempting to reach Joseph Ramesh to discuss findings. An addendum with communication details will be sent when the communication is complete. STUDY: CT ABDOMEN AND PELVIS WITHOUT CONTRAST REASON FOR EXAM: Female, 57 years old. Abdominal pain, poor output. Colostomy, history of cancer RADIATION DOSAGE (If Supplied By Facility): CTDIvol = ( 26.29 ) mGy, DLP = ( 1418.95 ) mGycm TECHNIQUE: Transaxial images were obtained from the dome of the diaphragm to the symphysis pubis without oral contrast, and without intravenous contrast. Sagittal and coronal images were reconstructed. Individualized dose optimization techniques were used for this CT. COMPARISON: September 19, 2016 CT scan abdomen and pelvis FINDINGS: There is a small focus of scarring right lower lobe atelectasis. Is a focus of radiopaque material within the anterior aspect of the chest which on maintenance mechanic view appears to be a quality assurance monitor chassis device. Normal liver. Normal gallbladder and extrahepatic biliary system. Is a well-circumscribed partially calcified cystic structure within the spleen stable since prior study measuring 2.7 x 2.4 cm. Normal pancreas. Normal bilateral adrenal glands. There is a right renal cyst measuring 2.3 x 2.3 cm. Is stable when compared to prior study. There is a left renal cyst measuring 1.6 x 1.8 cm. Normal left kidney. Normal visualized stomach. The small bowel is mildly distended and may be adhesed to the underside of the fascia or the failed hernia mesh. There is a visualize colostomy with a small amount of stool within the exiting bowel. Proximal to that there is a herniation or bulge into the subcutaneous tissue where a prior fistula was on the prior. Peripheral to this there is a small amount of material which may be leaking from the colostomy or potentially extending out of the skin covered bowel image #137 axial views. There is a wide diastases of the rectus muscle with atrophy fat covered with what appears to be a large failed hernia mesh into which there are multiple pockets of fat and pinched off areas of herniation. To the right to midline there is a focus of distended bowel in the anastomosis also coming in close proximity to this scan without herniation but there is peripheral clips that may be adhesed to the underside of the fascia or mesh. On the left of midline side, at the level of the pelvis there is a loop of bowel within a herniation. Centrally there is a distended fluid filled loop of bowel with peripheral gas which appears to be the remaining featureless bowel which has an anastomosis in the right lower quadrant. The aorta partially calcified. Normal inferior vena cava. Normal retroperitoneum. Normal urinary bladder. Normal visualized uterus. There are diffuse degenerative changes of the visualized lumbar spine. CT/Abdomen/Pelvis without Cont IMPRESSION: There is a wide diastases of the abdominal wall into which relatively featureless bowel and small bowel herniate into multiple pockets of fat. In left to midline abdomen there is a colostomy. There appears to be exiting fecal matter however approximately 6 to 10 cm proximal to that area the bowel herniates into a opening that may or may not have a true opening to the outside. Recommend direct visualization. There is external matter adjacent to this area. There is no visualized tract through the minimal skin covering the area. This is an area where there is a prior fistula or infection on prior study. In addition there are multiple areas of herniation probable adhesions about to the underside of the fascia. There are multiple areas of anastomosis. Centrally, There is a atypical appearing bowel loop which appears to be distended featureless and appears to represent a loop of bowel extending to the rectum. This this is likely from a re-anastomosis procedure. The bowel loop appears distended, partially obstructed and potentially necrotic pending on symptoms. Potentially an oral contrast study may be helpful. Stable splenic cyst. Electronically Signed: Fernanda Morris MD at 18:18 EST Tel , Service support ,
--- NOTE | 2018-04-27 15:36 | ED.DCSUM_ITS ---
- ER Visit Summary Date of Service: 04/27/18 Chief Complaint: Abdominal pain History of Present Illness: The patient is a 57 F who presents with lower abdominal pain that began last night. Patient states the pain is gradually gotten worse. Patient states pain is worse over her lower abdomen. Patient states nothing makes it better or worse. Patient states she has not had any stool in her colostomy bag today. Patient admits to some nausea but denies any vomiting. Patient denies any melena or hematochezia. Patient denies any urinary complaints. Patient states her pain does radiate into her back a little bit. Physical Examination: Vital signs are stable. Patient is afebrile. Patient is in no acute distress. Oral mucosa is pink and moist. Neck is supple. Trachea is midline. There is no JVD noted. Heart was regular rate and rhythm. Lungs are clear and equal bilateral. He is not abdomen is soft. There is mild diffuse tenderness. There is no rebound or guarding noted. Cranial nerves II through XII are intact. There are no focal motor or sensory deficits noted. The remaining physical exam is within normal limits. Test Results: CBC, comprehensive metabolic profile, lipase, and urinalysis were obtained and were all essentially within normal limits. CT scan of the abdomen and pelvis was obtained. There were adhesions but no definite bowel obstruction. Emergency Department Course and Treatment: Patient states she was able to have a bowel movement into her colostomy bag while she was here in the emergency department. I discussed the possibility of transfer to [facility] for francisco javier luation by her surgeons with the patient and her . They do not want to be transferred at this time. They want to go home. Since the patient is now having bowel movements, and she is not having any nausea or vomiting, I feel that the patient is safe to go home. Patient was instructed to follow-up with her primary care physician in 5-7 days. Patient was instructed to return if worse in any way. Patient and her understood and were agreeable with the plan. All questions were answered. Disposition: Discharge home Impression: Abdominal pain This note was generated with [employer] dictation software. It may contain incorrect words, spelling, and punctuation that were not noted in review of the chart prior to signing ED Disposition - Plan for ED Patient: Disposition: Home or Assisted Living Diagnosis: Abdominal pain Instructions: ED Abdominal Pain Unkn Cause Referrals: Vivian Meyer MD [Primary Care Provider] -
[2018-04-27 16:01] VITALS: BP 148/68; PULSE 87; RESP 16; O2SAT 95
[2018-04-27] MEDS: 0.9% Normal Saline 1,000 ML 1000 ML IV (16:02)
[2018-04-27 16:08] LABS: Absolute Neutrophil Count 2.8 X10^3/uL (2.0-7.7); Basophil# 0.01 X10^3/uL; Basophil% 0.2 % (0-1); Eosinophil# 0.03 X10^3/uL; Eosinophils% 0.7 % (0-5); Hematocrit 39.4 % (37-47); Hemoglobin 11.8 g/dl (12.0-15.0); Mean Corp Hgb Conc 29.9 g/gl (32-36); Mean Corpuscular Hgb 28.2 pg (27.0-32.0); Mean Corpuscular Volume 94.3 fL (81-99); Mean Platelet Vol. 9.6 fl (6.2-12.0); Monocyte# 0.58 X10^3/uL; Monocyte% 14.1 % (0-10); Neutrophil # 2.79 X10^3/uL (2.7-7.7); Neutrophil % 67.8 % (47-70); Platelet Count 170 K/mm3 (150-450); RBC Distribution Width CV 14.1 % (11.6-14.6); RBC Distribution Width SD 48.5 fl (35.1-43.9); Red Blood Count 4.18 M/mm3 (4.2-5.4); White Blood Count 4.1 K/mm3 (4.4-11.0)
[2018-04-27 16:10] LABS: POSITIVE COUNT NO; POSITIVE DIFFERENTIAL NO; POSITIVE MORPHOLOGY NO
[2018-04-27 16:13] LABS: ALB/GLOB Ratio 0.9 RATIO (0.9-2.4); AST(SGOT) 12 U/L (15-37); Alanine Aminotransfer ALT/SGPT 19 U/L (13-56); Albumin, Serum 3.3 g/dL (3.2-5.0); Alkaline Phosphatase 106 U/L (45-117); Anion Gap 8 (5-15); BUN 10 mg/dL (7-18); BUN/Creat Ratio 9.2 RATIO (10-20); Calcium,Total 8.5 mg/dL (8.5-10.1); Chloride 106 mmol/L (98-107); Creatinine, Serum 1.09 mg/dL (0.55-1.02); EST Glomerular Filtration Rate 55 mL/min (>60); Est Glom Filt Rate - Afr Amer 66 mL/min (>60); Estimated Creatinine Clearance 52.02 ml/min; Globulin 3.8 g/dL (2.2-4.2); Glucose 337 mg/dL (74-106); Lipase 55 U/L (73-393); Potassium 3.9 mmol/L (3.5-5.1); Protein, Total 7.1 g/dL (6.4-8.2); Sodium Level 137 mmol/L (136-145)
[2018-04-27 16:46] LABS: Bacteria 0 SEEN /hpf (None Seen); Mucous, Urine 0 SEEN /hpf (<or=2+); Red Blood Cells-Urine 0 SEEN /hpf (0-5); White Blood Cells 0 SEEN /hpf (0-5)
[2018-04-27 16:53] LABS: Color, Urine Yellow (Yellow); Glucose, Dipstick 1000 mg/dl (Normal); Ketone-Dipstick Negative (Negative); Leukocyte Esterase-Dipstick Negative /ul (Negative); Nitrite-Dipstick Negative (Negative); Occult Blood-Urine Negative /ul (Negative); Protein-Dipstick Negative (Negative); Urine Bilirubin Dipstick Negative (Negative); Urine Clarity Clear (Clear); Urine Urobilinogen Normal (Normal)
[2018-04-27 17:03] LABS: Squamous Epithelial Cells - UA 0-5 SEEN /hpf (5-10)
[2018-04-27 18:07] VITALS: BP 148/53; PULSE 85; RESP 17; O2SAT 96
[2018-04-27] MEDS: Morphine 2 MG/ML Syringe IV (20:09)
[2018-04-27 20:11] VITALS: BP 139/95; PULSE 94; RESP 16; O2SAT 99
== END 2018-04-27 20:50 | disposition home or self-care (01) ==
PROVIDERS: Emergency Provider Emergency Medicine; Family Provider Internal Medicine; PCP Internal Medicine
DX: R10.9 Unspecified abdominal pain (principal)
CPT/HCPCS: 74176; 80053; 81001; 83690; 85025; 96361; 96374; 99283; J7030; A4216

== ENCOUNTER 2018-05-03 12:47 | Emergency (ER) | payer MEDICAID, SELFPAY ==
[2018-05-03 12:48] VITALS: BP 147/87; PULSE 95; RESP 17; TEMP 36.7; O2SAT 92; BMI 40.3
--- NOTE | 2018-05-03 13:23 | RAD_ITS ---
STUDY: X-RAY CHEST REASON FOR EXAM: Female, 57 years old. SOBSShort of Breath/DyspneaSRAD - Chest TECHNIQUE: PA and lateral views of the chest. COMPARISON: August 28, 2017 FINDINGS: There is a loop recorder projecting over the heart. There is new mild atelectasis in the periphery of the right lower lobe since prior study otherwise lungs are clear. There is no demonstrated pleural abnormality. Heart size is top normal, stable in size. Normal mediastinum and erick. Normal visualized pulmonary arteries. Normal visualized aortic arch and descending thoracic aorta. Normal visualized thoracic spine. Normal visualized ribs, clavicles, and shoulders. There is no demonstrated abnormality of the visualized soft tissue structures of the upper abdomen. RAD/Chest PA and Lateral IMPRESSION: Mild but new platelike atelectasis inferior and lateral in association with the right lung otherwise no acute intrathoracic process or interval change. Electronically Signed: Jami Phillips MD at 13:49 EST , Service support ,
[2018-05-03 13:47] VITALS: BP 150/93; PULSE 73; RESP 18; O2SAT 92
[2018-05-03 13:48] VITALS: O2SAT 92
--- NOTE | 2018-05-03 15:00 | ED.DCSUM_ITS ---
- ER Visit Summary Date of Service: 05/03/18 Chief Complaint: Cold History of Present Illness: The patient is a 57 F with cold symptoms. They have been going on for about 3 days. She reports runny nose and dry cough. She denies fevers or chills. Denies sore throat. Denies chest pain or GI symptoms. Denies urinary symptoms. Physical Examination: Afebrile and vital signs unremarkable. 92% on room air. HEENT exam unremarkable. Neck is nontender. Lungs show wheezing in all brown. Abdomen soft and nontender. Extremities nontender with no edema. Skin appears normal. Test Results: Patient had an x-ray which showed atelectasis but no other acute issues. Emergency Department Course and Treatment: Patient treated with DuoNeb and doxycycline. Her chest x-ray was reassuring. Oxygen 94% on room air. Patient will be discharged to follow-up as an outpatient. She has breathing treatments at home. We will not treat with prednisone because of her history of diabetes. All questions were answered. Patient is tolerating p.o. Discharged home. Treatment Plan: As above Disposition: Discharge Impression: 1. Acute bronchitis This note was generated with [employer] dictation software. It may contain incorrect words, spelling, and punctuation that were not noted in review of the chart prior to signing ED Disposition - Plan for ED Patient: Referrals: Vivian Meyer MD [Primary Care Provider] -
--- NOTE | 2018-05-03 15:00 | ED.DEP ---
ED Disposition - Plan for ED Patient: Instructions: ED Bronchitis Asthmatic Prescriptions: Doxycycline 100 mg PO BID 10 Days #20 cap Referrals: Vivian Meyer MD [Primary Care Provider] -
[2018-05-03] MEDS: Ipratropium/Albuterol Sulfate 3 ML AMPUL.NEB INHALATION (15:05)
[2018-05-03 15:06] VITALS: PULSE 88; RESP 22
[2018-05-03 15:27] VITALS: BP 141/48; PULSE 92; RESP 16; RESP 17; O2SAT 94
[2018-05-03] MEDS: Doxycycline 100 MG CAPSULE PO (15:27)
== END 2018-05-03 15:32 | disposition home or self-care (01) ==
LOC: ED 14:12
PROVIDERS: Emergency Provider Emergency Medicine; Family Provider Internal Medicine; PCP Internal Medicine
DX: J20.9 Acute bronchitis, unspecified (principal); I10 Essential (primary) hypertension; E11.9 Type 2 diabetes mellitus without complications; Z79.4 Long term (current) use of insulin; Z99.81 Dependence on supplemental oxygen; Z79.899 Other long term (current) drug therapy; Z87.891 Personal history of nicotine dependence
CPT/HCPCS: 71046; 94640; 94760; 99282

== ENCOUNTER 2018-11-07 10:24 | Emergency (ER) | payer MEDICAID, SELFPAY ==
[2018-11-07 10:25] VITALS: BP 104/71; PULSE 100; RESP 20; TEMP 36.4; O2SAT 96; BMI 37.1
[2018-11-07 10:53] VITALS: BP 106/56; PULSE 90; RESP 16; O2SAT 94
[2018-11-07 12:00] LABS: Absolute Lymphocyte Count 0.44 X10^3/uL (0.83-4.51); Absolute Neutrophil Count 4.3 X10^3/uL (2.0-7.7); Basophil# 0.02 X10^3/uL; Basophil% 0.4 % (0-1); Eosinophil# 0.04 X10^3/uL; Eosinophils% 0.8 % (0-5); Hematocrit 41.9 % (37-47); Hemoglobin 13.2 g/dL (12.0-15.0); Lymphocyte # 0.44 X10^3/ul (4.0); Lymphocyte % 8.8 % (19-41); Mean Corp Hgb Conc 31.5 g/dL (32-36); Mean Corpuscular Hgb 28.3 pg (27.0-32.0); Mean Corpuscular Volume 89.7 fL (81-99); Mean Platelet Vol. 9.4 fl (6.2-12.0); Monocyte# 0.15 X10^3/uL; NRBC Flagged by Analyzer 0 % (0-5); Neutrophil # 4.34 X10^3/uL (2.7-7.7); Neutrophil % 86.4 % (47-70); POSITIVE DIFFERENTIAL YES; Platelet Count 171 K/mm3 (150-450); RBC Distribution Width CV 13.6 % (11.6-14.6); RBC Distribution Width SD 44.4 fl (35.1-43.9); Red Blood Count 4.67 M/mm3 (4.2-5.4)
[2018-11-07] MEDS: 0.9% Normal Saline 1,000 ML 1000 ML IV (12:00)
[2018-11-07] MEDS: Ondansetron 4 MG/2 ML Vial IV (12:00)
[2018-11-07 12:03] LABS: Differential Indicated SCAN CRITERIA MET
[2018-11-07 12:11] LABS: ALB/GLOB Ratio 0.9 RATIO (0.9-2.4); AST(SGOT) 21 U/L (15-37); Alanine Aminotransfer ALT/SGPT 21 U/L (13-56); Albumin, Serum 3.5 g/dL (3.2-5.0); Alkaline Phosphatase 84 U/L (45-117); Anion Gap 6 (5-15); BUN 17 mg/dL (7-18); BUN/Creat Ratio 13.1 RATIO (10-20); Calcium,Total 8.4 mg/dL (8.5-10.1); Chloride 106 mmol/L (98-107); EST Glomerular Filtration Rate 44 mL/min (>60); Est Glom Filt Rate - Afr Amer 54 mL/min (>60); Estimated Creatinine Clearance 43.08 ml/min; Globulin 3.9 g/dL (2.2-4.2); Glucose 273 mg/dL (74-106); Potassium 4.1 mmol/L (3.5-5.1); Protein, Total 7.4 g/dL (6.4-8.2); Sodium Level 137 mmol/L (136-145)
--- NOTE | 2018-11-07 13:32 | ED.VIS.GI ---
History of Present Illness Chief Complaint: Nausea/Vomiting/Diarrhea Narrative: Patient presenting for evaluation secondary to concern for a food poisoning episode. Patient states that for the last 3 days she has had profuse nausea vomiting and diarrhea. Patient states that she ate a hamburger at a restaurant, and she and her came down with the similar illness of the similar time. Patient states that she has had significant nausea and vomiting with difficulty with keeping down fluids. She has a colostomy, and states that she has been having profuse watery output from this. She endorses that she has been having generalized body aches and myalgias and subjective fevers associated with this. No blood in her vomit no blood in her stool. Review of systems otherwise negative. Past Medical History - Allergies and Home Meds Allergies/Adverse Reactions: Allergies azithromycin Allergy (Verified 11/07/18 10:27) Rash Cephalosporins Allergy (Verified 11/07/18 10:27) Rash codeine Allergy (Verified 11/07/18 10:27) Rash diclofenac [Diclofenac] Allergy (Verified 11/07/18 10:27) Rash hydrocodone bitartrate [From Vicodin] Allergy (Verified 11/07/18 10:27) Rash hydromorphone HCl [From Dilaudid] Allergy (Verified 11/07/18 10:27) Rash Opioids - Morphine Analogues Allergy (Verified 11/07/18 10:27) Rash Penicillins Allergy (Verified 11/07/18 10:27) Anaphylaxis Sulfa (Sulfonamide Antibiotics) Allergy (Verified 11/07/18 10:27) Rash cherries Allergy (Uncoded 11/07/18 10:27) Angioedema philomena Allergy (Uncoded 11/07/18 10:27) Angioedema pears Adverse Reaction (Uncoded 11/07/18 10:27) Unknown soap Adverse Reaction (Uncoded 11/07/18 10:27) Unknown patient states i cannot use hand soap. I have to use body soap. Primary Care Physician: Vivian Meyer MD [Primary Care Provider] - Past Medical History: - - Type 1 diabetes, COPD, hypertension Surgical History: appendectomy, tonsillectomy, - - Cataract surgery colon surgery for colon cancer, ileostomy, hernia repair. Smoking Status: Former smoker - Family History Maternal Family History: Family History (Last Reviewed 11/01/17 @ 11:34 by Braden Londono MD) Father Heart disease Other Thyroid disorder Family History: Reports: No pertinent history Paternal Family History: Family History (Last Reviewed 11/01/17 @ 11:34 by Braden Londono MD) Father Heart disease Other Thyroid disorder Family History: Reports: No pertinent history Review of Systems All systems negative except as indicated General: Reports: Fever, Malaise, Subjective Cardiovascular: Denies: Chest pain Respiratory: Denies: Dyspnea Gastrointestinal: Reports: Abdominal pain, Nausea, Vomiting, Diarrhea Musculoskeletal: Reports: Myalgias Physical Exam Vital Signs/Narrative: Vital Signs Temp Pulse Resp BP Pulse Ox 11/07/18 10:53 90 16 106/56 L 94 11/07/18 10:25 97.6 F L 100 20 H 104/71 96 Inital Vital Signs reviewed: Yes General: Well nourished, Well developed, No Acute Distress Head: Normocephalic, Atraumatic Eyes: Perrl, EOMI. Negative for: Pale conjunctiva, Scleral icterus ENT: Moist mucous membranes, No rhinorrhea Neck: Supple, Nontender Cardiovascular: Regular rate, Regular rhythm, No murmurs Respiratory: No distress, CTA bilaterally, Chest nontender Abdomen: - - Abdomen is nondistended. Ostomy appears pink and nontender. Normal bowel sounds. Mild diffuse nonlocalizing tenderness. Back: Nontender, Normal Inspection Extremities: Nontender Skin: Normal color, No rash Neurological: Alert, Oriented x3, Cranial nerves II-XII grossly intact, Normal Strength, Normal Sensation Psychological: Normal affect, Normal Mood Diagnostic/Tx/Re-eval - Medical Decision Making Patient presented for evaluation due to a GI illness. IV was established patient was given Zofran and fluids. CBC unremarkable, chemistry shows mild elevation of the patient's baseline creatinine from 1.0-1.3. Patient had symptomatic improvement on repeat evaluation. At this point the patient likely has an element of gastroenteritis, she has no evidence of acidosis or elevated anion gap. She was mildly hyperglycemic. Patient at this point I believe is stable and appropriate for discharge with outpatient treatment with Zofran. She was recommended aggressive hydration. All questions were answered and the patient was discharged. Disposition: Home ED Disposition - Plan for ED Patient: Disposition: Home or Assisted Living Diagnosis: Gastroenteritis Instructions: GASTROENTERITIS, Viral (4y-Adult) Prescriptions: Ondansetron [Zofran Odt] 4 mg PO Q8H PRN PRN #10 tab PRN Reason: Nausea Prescription Printed Referrals: Vivian Meyer MD [Primary Care Provider] -
[2018-11-07 13:44] VITALS: BP 125/64; PULSE 83; RESP 19; O2SAT 100
== END 2018-11-07 13:45 | disposition home or self-care (01) ==
PROVIDERS: Emergency Provider Emergency Medicine; Family Provider Internal Medicine; PCP Internal Medicine
DX: K52.9 Noninfective gastroenteritis and colitis, unspecified (principal); E10.9 Type 1 diabetes mellitus without complications; J44.9 Chronic obstructive pulmonary disease, unspecified; I10 Essential (primary) hypertension; Z87.891 Personal history of nicotine dependence
CPT/HCPCS: 80053; 85025; 96361; 96374; 99283; J7030; A4216; J2405

== ENCOUNTER 2018-12-06 11:57 | Day surgery (SDC) | payer MEDICAID, SELFPAY ==
[2018-12-06 13:31] VITALS: BP 134/48; PULSE 65; RESP 16; TEMP 36.8; O2SAT 92; BMI 39.2
[2018-12-06] MEDS: Lactated Ringers 1,000 ML 100 ML IV (13:45)
[2018-12-06 14:06] LABS: Bedside Glucose 183 mg/dL (70-110)
--- NOTE | 2018-12-06 15:10 | RAD_ITS ---
STUDY: X-RAY - CERVICAL SPINE REASON FOR EXAM: Female, 58 years old. EPIDURAL, BLOCK C6-C7 TECHNIQUE: Single frontal C-arm view from the OR. 4.7 seconds fluoroscopy time. COMPARISON: None FINDINGS: The single image shows a needle positioned in the midline at appears to be the C7-T1 level. Correlate with procedure note. Electronically Signed: Jerson Ríos MD at 16:19 EDT , Service support , RAD/Spine 1 View Any Level
[2018-12-06] MEDS: Triamcinolone Acetonide 40 MG/ML Vial (15:14)
[2018-12-06 15:24] VITALS: BP 119/47; BP 134/48; PULSE 62; RESP 16; TEMP 36.7; O2SAT 95
[2018-12-06 15:29] VITALS: BP 124/60; BP 134/48; PULSE 61; RESP 16; O2SAT 93
[2018-12-06 15:34] VITALS: BP 119/57; BP 134/48; PULSE 63; RESP 16; O2SAT 92
[2018-12-06 15:39] VITALS: BP 134/47; BP 134/48; PULSE 63; RESP 16; TEMP 36.7; O2SAT 95
[2018-12-06 16:09] VITALS: BP 134/48
== END 2018-12-06 16:11 | disposition home or self-care (01) ==
LOC: SDC 11:58 → AC 12:32
PROVIDERS: Family Provider Internal Medicine; PCP Internal Medicine; Referring Provider Anesthesiology Pain Medicine; Visit Provider Anesthesiology Pain Medicine
PROC: 3E0S3BZ Introduction of Anesthetic Agent into Epidural Space, Percutaneous Approach (ICD-10-PCS; CPT 62320; principal; 2018-12-06 13:45)
DX: M54.13 Radiculopathy, cervicothoracic region (principal); M47.812 Spondylosis without myelopathy or radiculopathy, cervical region; G89.4 Chronic pain syndrome; I10 Essential (primary) hypertension; I45.10 Unspecified right bundle-branch block; E11.9 Type 2 diabetes mellitus without complications; K21.9 Gastro-esophageal reflux disease without esophagitis; F20.9 Schizophrenia, unspecified; F31.9 Bipolar disorder, unspecified; F44.81 Dissociative identity disorder; J44.9 Chronic obstructive pulmonary disease, unspecified; Z99.81 Dependence on supplemental oxygen; Z79.4 Long term (current) use of insulin; Z79.84 Long term (current) use of oral hypoglycemic drugs; Z79.899 Other long term (current) drug therapy; Z87.891 Personal history of nicotine dependence
CPT/HCPCS: 62321; 64490; 72020; 72040; 82962; J7120; J3490

== ENCOUNTER 2019-01-01 15:59 | Emergency (ER) | payer MEDICAID, SELFPAY ==
[2019-01-01 16:00] VITALS: BP 109/61; PULSE 88; RESP 16; TEMP 36.7; O2SAT 98; BMI 40.6
--- NOTE | 2019-01-01 17:02 | ED.DEP ---
ED Disposition - Plan for ED Patient: Instructions: Treating Insomnia Referrals: Vivian Meyer MD [Primary Care Provider] -
--- NOTE | 2019-01-01 17:08 | ED.DCSUM_ITS ---
- ER Visit Summary Date of Service: 01/01/19 Chief Complaint: Insomnia History of Present Illness: The patient is a 58 F presenting with insomnia. Patient states she has not been able to sleep for the past 5 days. She states she is having difficulty falling asleep. She feels tired. She takes trazodone and melatonin. She denies suicidal thoughts or plan. She has a history of schizophrenia and bipolar disorder. She states she has had insomnia in the past. She denies manic symptoms. Denies other complaints. Physical Examination: Vitals are stable. Patient is afebrile. Alert no acute distress. HEENT exam is unremarkable. Neck is supple. Lungs are clear and equal bilaterally. Heart is regular rate and rhythm. Abdomen is soft nontender nondistended. Extremities are unremarkable. Skin is warm and dry. No focal neurologic deficit. Remainder of exam is unremarkable. Emergency Department Course and Treatment: Patient states she has been to the ED before for insomnia and was given IM medication which helped. She does not recall what medication she was given. She was given 1 dose of p.o. Ativan. She will follow-up with her psychiatrist. She is advised to return to ED if worsening complaints. Disposition: Discharge home Impression: Insomnia This note was generated with [employer] dictation software. It may contain incorrect words, spelling, and punctuation that were not noted in review of the chart prior to signing ED Disposition - Plan for ED Patient: Disposition: Home or Assisted Living Instructions: Treating Insomnia Referrals: Vivian Meyer MD [Primary Care Provider] -
[2019-01-01 17:14] VITALS: PULSE 82; RESP 17; O2SAT 98
[2019-01-01] MEDS: LORazepam 1 MG Tablet PO (17:16)
[2019-01-01 18:08] VITALS: BP 124/73; PULSE 61; RESP 15; O2SAT 97
== END 2019-01-01 18:09 | disposition home or self-care (01) ==
PROVIDERS: Emergency Provider Emergency Medicine; Family Provider Internal Medicine; PCP Internal Medicine
DX: G47.00 Insomnia, unspecified (principal); F31.9 Bipolar disorder, unspecified; F20.9 Schizophrenia, unspecified; E11.9 Type 2 diabetes mellitus without complications; Z79.4 Long term (current) use of insulin; Z79.84 Long term (current) use of oral hypoglycemic drugs; Z79.899 Other long term (current) drug therapy
CPT/HCPCS: 99283

== ENCOUNTER 2019-04-16 12:56 | Emergency (ER) | payer MEDICAID, SELFPAY ==
[2019-04-16 12:56] VITALS: BP 148/70; PULSE 71; RESP 16; TEMP 36.8; O2SAT 98; BMI 39.5
--- NOTE | 2019-04-16 13:03 | EKG12_ITS ---
Test Reason : REPEAT EKG Blood Pressure : / mmHG Vent. Rate : 083 BPM Atrial Rate : 083 BPM P-R Int : 196 ms QRS Dur : 130 ms QT Int : 428 ms P-R-T Axes : 037 -03 008 degrees QTc Int : 502 ms Normal sinus rhythm Right bundle branch block Abnormal ECG Confirmed by GUERLINE CALDERON ([id number]), videotape editor ABHISHEK GONZALES ([id number]) on 04/18/2019 3:16:34 PM Referred By: APOLINAR Confirmed By:GUERLINE CALDERON
--- NOTE | 2019-04-16 13:05 | RAD_ITS ---
STUDY: X-RAY CHEST REASON FOR EXAM: Female, 58 years old. CHEST PAIN TECHNIQUE: Single AP portable view of the chest. COMPARISON: Comparison is made with prior study dated May 03, 2018. FINDINGS: EKG electrodes are seen. The lungs are clear and expanded. There is no demonstrated pleural abnormality. Normal size heart. Normal mediastinum and erick. Normal visualized pulmonary arteries. Normal visualized aortic arch and descending thoracic aorta. Normal visualized thoracic spine. Normal visualized ribs, clavicles, and shoulders. There is no demonstrated abnormality of the visualized soft tissue structures of the upper abdomen. RAD/Chest 1 View (Portable) IMPRESSION: Normal x-ray examination of the chest. Electronically Signed: Joshua Cabral, at 13:38 EST , Service support ,
[2019-04-16] MEDS: Aspirin 81 MG TAB.CHEW 324 MG PO (13:15)
[2019-04-16 13:17] LABS: Absolute Lymphocyte Count 1.04 X10^3/uL (0.83-4.51); Absolute Neutrophil Count 3.7 X10^3/uL (2.0-7.7); Basophil# 0.02 X10^3/uL; Basophil% 0.4 % (0-1); Eosinophil# 0.11 X10^3/uL; Eosinophils% 2.2 % (0-5); Hematocrit 36.2 % (37-47); Hemoglobin 11.2 g/dL (12.0-15.0); Lymphocyte # 1.04 X10^3/ul (4.0); Lymphocyte % 20.4 % (19-41); Mean Corp Hgb Conc 30.9 g/dL (32-36); Mean Corpuscular Hgb 26.9 pg (27.0-32.0); Mean Corpuscular Volume 86.8 fL (81-99); Mean Platelet Vol. 9.2 fl (6.2-12.0); Monocyte# 0.24 X10^3/uL; Monocyte% 4.7 % (0-10); NRBC Flagged by Analyzer 0 % (0-5); Neutrophil # 3.67 X10^3/uL (2.7-7.7); Neutrophil % 71.9 % (47-70); Platelet Count 189 K/mm3 (150-450); RBC Distribution Width CV 13.4 % (11.6-14.6); RBC Distribution Width SD 42.5 fl (35.1-43.9); Red Blood Count 4.17 M/mm3 (4.2-5.4); White Blood Count 5.1 K/mm3 (4.4-11.0)
--- NOTE | 2019-04-16 13:26 | ED.VISSUMM ---
- ER Visit Summary Date of Service: 04/16/19 Chief Complaint: Sternal chest pain History of Present Illness: The patient is a 58 F history of diabetes, chronic back pain, pacemaker for bradycardia placed 2 years ago. Prior colon cancer with colectomy and colostomy. Patient states around 10 AM this morning after getting up she had sternal chest pain. At times dull and aching and no times it stabbing. She denies any associated diaphoresis, nausea or shortness of breath. Not exertional. She has had no recent exertional chest pain or shortness of breath. She denies any known coronary disease. Denies any prior heart cath. No recent travel, surgery or immobilization. Is not pleuritic. No hemoptysis. No leg pain or swelling. Physical Examination: Next middle-aged female no acute distress. Vital signs stable afebrile. H EENT exam unremarkable. Neck nontender no JVD. No lymphadenopathy. Lungs clear to auscultation bilaterally. Heart regular rhythm no murmur. Chest wall mild reproducible sternal tenderness. No redness or warmth. No bruising. No signs of trauma. No crepitance. Abdomen soft nontender normal bowel sounds no peritoneal signs. Patient moving all 4 extremities. Neurovascular intact. Calves are nontender without edema or cords. Back nontender. Neurologically she is awake alert with no focal motor deficits. Test Results: EKG shows a normal sinus rhythm rate of 72 with a right bundle branch block. No signs of OH or ischemia. Unchanged from prior EKG from December 2017. CBC shows normal white count of 5. Hemoglobin 11 which is her baseline chronic anemia. Chemistries unremarkable normal creatinine and gap. Glucose of 215. Troponin normal at 0.015. Chest x-ray portable 1 view shows no acute abnormality. Normal cardiac silhouette mediastinum. Read both myself and radiologist. A repeat EKG was done at 1551 and showed a normal sinus rhythm rate of 83 with the same right bundle branch block and no change from the previous today or prior. Emergency Department Course and Treatment: Patient with sternal chest pain. Cardiac work-up with p.o. aspirin. Repeat exam patient is doing well at 1548. I discussed with her and her I did not feel this was cardiac. I did recommend to do a second troponin III hours after the first which they both deferred. states they are hungry and ages 1 to go home. Treatment Plan: Follow-up with her primary care physician. Return if she is feeling worse. Disposition: Discharge Impression: Acute chest pain of uncertain etiology This note was generated with [employer] dictation software. It may contain incorrect words, spelling, and punctuation that were not noted in review of the chart prior to signing ED Disposition - Plan for ED Patient: Referrals: Vivian Meyer MD [Primary Care Provider] -
[2019-04-16 13:28] VITALS: O2SAT 97
[2019-04-16 13:33] LABS: Anion Gap 4 (5-15); BUN 15 mg/dL (7-18); BUN/Creat Ratio 12.8 RATIO (10-20); Chloride 106 mmol/L (98-107); Creatinine, Serum 1.17 mg/dL (0.55-1.02); EST Glomerular Filtration Rate 50 mL/min (>60); Est Glom Filt Rate - Afr Amer 61 mL/min (>60); Estimated Creatinine Clearance 36.73 ml/min; Glucose 215 mg/dL (74-106); Potassium 3.9 mmol/L (3.5-5.1); Sodium Level 138 mmol/L (136-145)
[2019-04-16 13:56] VITALS: PULSE 75; RESP 16; O2SAT 98
[2019-04-16 14:00] VITALS: PULSE 75; RESP 20; O2SAT 97
[2019-04-16 15:00] VITALS: PULSE 81; RESP 20; O2SAT 93
--- NOTE | 2019-04-16 15:44 | EKG12_ITS ---
Test Reason : CP Blood Pressure : / mmHG Vent. Rate : 072 BPM Atrial Rate : 072 BPM P-R Int : 188 ms QRS Dur : 128 ms QT Int : 450 ms P-R-T Axes : 033 -09 006 degrees QTc Int : 492 ms Normal sinus rhythm Right bundle branch block Abnormal ECG Confirmed by GUERLINE CALDERON ([id number]), tape editor ABHISHEK GONZALES ([id number]) on 04/18/2019 3:16:48 PM Referred By: GLORIA Confirmed By:GUERLINE CALDERON
--- NOTE | 2019-04-16 15:56 | ED.DEP ---
ED Disposition - Plan for ED Patient: Disposition: Home or Assisted Living Instructions: CHEST PAIN, Uncertain Cause Referrals: Vivian Meyer MD [Primary Care Provider] - 3-5 Days if not improving Additional Instructions: Return if feeling worse. Follow-up with your doctor if not improving.
[2019-04-16 16:02] VITALS: BP 167/77; PULSE 76; RESP 16; O2SAT 94
--- NOTE | 2019-04-16 16:03 | ED.RN ---
REVIEWED D/C INSTRUCTIONS, FOLLOW UP CARE, AND S/S THAT WOULD WARRANT A RETURN TO THE ED WITH PT. PT VERBALIZED AN UNDERSTANDING AND DENIES FURTHER QUESTIONS FOR THIS RN. PT SKIN P/W/D, RESP EVEN AND UNLABORED, PT A&O X 3, NO DISTRESS NOTED. PT AMBULATED OUT OF ED, GAIT STEADY.
== END 2019-04-16 16:04 | disposition home or self-care (01) ==
PROVIDERS: Emergency Provider Emergency Medicine; PCP Internal Medicine
DX: R07.9 Chest pain, unspecified (principal); I45.10 Unspecified right bundle-branch block; E11.9 Type 2 diabetes mellitus without complications; Z85.038 Personal history of other malignant neoplasm of large intestine; Z93.3 Colostomy status; Z95.0 Presence of cardiac pacemaker; Z79.4 Long term (current) use of insulin; Z79.84 Long term (current) use of oral hypoglycemic drugs
CPT/HCPCS: 71045; 80048; 84484; 85025; 93005; 99285

== ENCOUNTER → 2019-05-06 15:53 | Outpatient (CLI) | payer MEDICAID, SELFPAY ==
[2019-04-16 12:56] VITALS: BMI 39.5
[2019-05-06 17:36] LABS: Amphetamine Urine VISTA NEGATIVE (<1000 ng/mL); Barbiturate Urine VISTA NEGATIVE (< 200 ng/mL); Benzodiazepine Urine VISTA NEGATIVE (< 200 ng/mL); Cocaine Urine VISTA NEGATIVE (< 300 ng/mL); Ecstacy Urine VISTA NEGATIVE (< 500 ng/mL); Methadone Urine VISTA NEGATIVE (< 300 ng/mL); PCP Urine VISTA NEGATIVE (< 25 ng/mL); THC Urine VISTA NEGATIVE (< 50 ng/mL); Vista UDS pH Range 6
== END ==
PROVIDERS: PCP Internal Medicine; Referring Provider Anesthesiology Pain Medicine; Visit Provider Anesthesiology Pain Medicine
DX: F11.20 Opioid dependence, uncomplicated (principal)
CPT/HCPCS: 80307

== ENCOUNTER 2021-01-05 01:35 | Emergency (ER) | payer MEDICAID, SELFPAY ==
[2021-01-05 01:37] VITALS: BP 178/74; PULSE 92; RESP 16; TEMP 36; O2SAT 95; BMI 32.5
--- NOTE | 2021-01-05 01:47 | EKG12_ITS ---
Test Reason : WEAKNESS Blood Pressure : / mmHG Vent. Rate : 080 BPM Atrial Rate : 080 BPM P-R Int : 192 ms QRS Dur : 146 ms QT Int : 436 ms P-R-T Axes : 042 005 015 degrees QTc Int : 502 ms Normal sinus rhythm Right bundle branch block Abnormal ECG Confirmed by ZAIDA BLACKWELL, STACEY ([id number]), metropolitan editor MICHAEL MAURER ([id number]) on 01/06/2021 8:46:12 AM Referred By: Confirmed By:STACEY CERDA MD
--- NOTE | 2021-01-05 01:47 | RAD_ITS ---
STUDY: X-RAY CHEST REASON FOR EXAM: Female, 60 years old. chest pain TECHNIQUE: Single AP portable view of the chest. COMPARISON: 04/16/2019. FINDINGS: The lungs are clear and expanded. There is no demonstrated pleural abnormality. Normal size heart. Normal mediastinum and erick. Normal visualized pulmonary arteries. Normal visualized aortic arch and descending thoracic aorta. Normal visualized thoracic spine. Normal visualized ribs, clavicles, and shoulders. There is no demonstrated abnormality of the visualized soft tissue structures of the upper abdomen. IMPRESSION:. No acute cardiopulmonary disease. Electronically Signed: Lesa Dodson MD at 2:23 EDT , Service support , RAD/Chest 1 View (Portable)
--- NOTE | 2021-01-05 01:47 | EDS_ITS ---
HPI History of Present Illness Chief Complaint: Upper Extremity Injury Informant: patient and spouse/S.O. Narrative Narrative: 60-year-old female presents the emergency department with left shoulder pain. States sometimes it hurts in her shoulder sometimes it hurts the left side of her chest and radiates down into her hand. She notes that she can reproduce the pain by rubbing the anterior aspect of the left shoulder. Patient has a history of diabetes hypertension and hyperlipidemia. States that she has a pacemaker due to a slow heart rate. States she has not been to a diamond grinder in over 2 years because he has not made an appointment for me. She has also not called the diamond grinder office to see when she is to be seen. Patient states that she is here just to make sure I am okay. [facility] Medical History Anemia Anxiety and depression Asthma Bradycardia Colon cancer COPD (chronic obstructive pulmonary disease) GERD (gastroesophageal reflux disease) Hyperlipidemia Hypertension Obesity (BMI 30.0-34.9) Paranoid schizophrenia Secondary pulmonary arterial hypertension Tracheitis Type I diabetes mellitus Home Medications topiramate 100 mg PO BID 03/01/17 [History Last Taken 12/06/18 09:00] hydrocortisone 2.5 % topical cream 1 applic TOPICAL DAILY 30 Days #30 10/31/17 [History Last Taken Unknown] insulin glargine 100 unit/mL (3 mL) subcutaneous pen 17 unit SC QHS 10/31/17 [History Last Taken Unknown] ipratropium 0.5 mg-albuterol 3 mg (2.5 mg base)/3 mL nebulization soln 3 ml INHALATION 4X/DAY 10/31/17 [History Last Taken Unknown] thiothixene 2 mg capsule 2 mg PO DAILY 30 Days #30 10/31/17 [History Last Taken 12/04/17 05:30] trazodone 100 mg tablet 300 mg PO QHS 30 Days #90 10/31/17 [History Last Taken Unknown] glimepiride 4 mg tablet 4 mg PO DAILY 30 Days #30 11/01/17 [History Last Taken Unknown] amitriptyline 25 mg PO QHS 11/28/17 [History Last Taken Unknown] melatonin-pyridoxine (vit B6) [Melatonin 5 mg Tablet] 2 ea PO QHS 11/28/17 [History Last Taken Unknown] omeprazole 20 mg PO DAILY 12/04/17 [History Last Taken 12/06/18 09:00] cariprazine 3 mg PO QHS 12/04/18 [History Last Taken Unknown] fluphenazine HCl 1 mg PO QHS 12/04/18 [History Last Taken Unknown] guaifenesin 600 mg PO TID 12/04/18 [History Last Taken 12/06/18 09:00] pravastatin 40 mg PO DAILY 12/04/18 [History Last Taken Unknown] tapentadol 75 mg PO TID 12/04/18 [History Last Taken 12/06/18 09:00] magnesium oxide 400 mg PO DAILY 04/16/19 [History Last Taken Unknown] Allergy/AdvReac Type Severity Reaction Status Date / Time azithromycin Allergy Rash Verified 01/05/21 01:39 Cephalosporins Allergy Rash Verified 01/05/21 01:39 codeine Allergy Rash Verified 01/05/21 01:39 diclofenac [Diclofenac] Allergy Rash Verified 01/05/21 01:39 hydrocodone bitartrate Allergy Rash Verified 01/05/21 01:39 [From Vicodin] hydromorphone HCl Allergy Rash Verified 01/05/21 01:39 [From Dilaudid] Opioids - Morphine Analogues Allergy Rash Verified 01/05/21 01:39 Penicillins Allergy Anaphylaxis Verified 01/05/21 01:39 Sulfa (Sulfonamide Allergy Rash Verified 01/05/21 01:39 Antibiotics) cherries Allergy Angioedema Uncoded 01/05/21 01:39 philomena Allergy Angioedema Uncoded 01/05/21 01:39 pears AdvReac Unknown Uncoded 01/05/21 01:39 soap AdvReac Unknown Uncoded 01/05/21 01:39 Family History Father Heart disease Other Thyroid disorder Surgical History Colostomy in place History of colectomy Presence of cardiac pacemaker (09/28/16) Tracheostomy in place Social History (Updated 01/05/21 @ 01:[address] Artem Dinero DO) Smoking Status: Former smoker quit date: 08/27/10 pack-years: 45 substance use type: does not use ROS ROS ED Constitutional Constitutional ED: Denies chills or weight loss Eyes Eyes: Denies change in vision or diplopia ENT ENT ED: Denies ear pain, rhinorrhea or sore throat Cardiovascular Cardiovascular: Reports chest pain; Denies orthopnea, palpitations or racing heartbeat Respiratory/Chest Respiratory/Chest: Denies cough, dyspnea or orthopnea Gastrointestinal Gastrointestinal: Denies abdominal pain, diarrhea, nausea or vomiting Genitourinary Genitourinary ED: Denies dysuria, hematuria or urinary frequency Musculoskeletal Musculoskeletal: Reports other Details: Left shoulder pain ; Denies arthralgias, back pain, myalgias or neck pain Integumentary Denies abscess or rash Neurologic Neurologic: Denies headache(s) or weakness Psychiatric Psychiatric: Denies anxiety, depression, suicidal ideation or suicidal thoughts Endocrine Endocrinology: Denies polydipsia, polyphagia or polyuria Allergic/Immunologic Allergic/Immunologic ED: Denies mouth swelling, tongue swelling or urticaria EXAM Physical Exam Const Vital Signs: 01/05/21 01:37 Temperature 96.8 F L Temperature Source Temporal Pulse Rate 92 Respiratory Rate 16 Blood Pressure 178/74 H Blood Pressure Mean 108 Pulse Ox 95 Positive well nourished, well developed and obese General Appearance ED: well developed Nutritional Appearance: obese HEENT Reports normocephalic, head/scalp atraumatic and moist mucous membranes normocephalic and atraumatic Eyes PERRL and EOMs intact bilaterally Neck no lymphadenopathy, supple and no JVD Resp normal respiratory effort and clear to auscultation bilaterally Cardio regular rate, regular rhythm and no murmurs GI normal to inspection, nondistended, normoactive bowel sounds and non-tender Palpation: soft Back/Spine no CVA tenderness and normal ROM Extremity Extremity Narrative: Patient has tenderness to palpation over the biceps tendon in the left shoulder General Extremety ED: Negative for edema General Extremity: Negative for edema Neuro oriented x3 and CN's II-XII intact bilaterally Sensorium / Orientation: alert Motor Exam: strength 5/5 throughout Psych mental status grossly normal Mood & Affect: Negative for depressed or tearful Skin no rashes or lesions noted and no wounds MDM MDM MDM Narrative Medical decision making narrative: My interpretation of the chest x-ray is no acute process. Patient's troponin is within normal limits. She had no events on the monitor. I do not think this represents ACS or coronary artery disease. The patient should follow-up with cardiology and their primary care physician. Lab Data Attestation: I reviewed the patient's lab results. EKG Initial EKG: Attestation: I personally reviewed and interpreted this EKG as follows: Comments: Normal sinus rhythm with a ventricular rate of 80 bpm. Noted right bundle branch block Discharge Plan Triage Chief Complaint: Upper Extremity Injury ED Provider: Artem Dinero Dx/Rx/DC Orders Clinical Impression: Chest pain, Acute pain of left shoulder Instructions: ED Chest Pain, Uncertain Cause Prescriptions: No Action glimepiride 4 mg tablet 4 mg PO DAILY 30 Days Qty: 30 RF: 0 hydrocortisone 2.5 % cream 1 applic TOPICAL DAILY 30 Days Qty: 30 RF: 0 thiothixene 2 mg capsule 2 mg PO DAILY 30 Days Qty: 30 RF: 0 trazodone 100 mg tablet 300 mg PO QHS 30 Days Qty: 90 RF: 0 insulin glargine [Lantus Solostar U-100 Insulin] 100 unit/mL (3 mL) insulin pen 17 unit SC QHS RF: 0 ipratropium-albuterol 0.5 mg-3 mg(2.5 mg base)/3 mL solution for nebulization 3 ml INHALATION 4X/DAY RF: 0 topiramate 100 mg tablet 100 mg PO BID RF: 0 melatonin-pyridoxine (vit B6) [Melatonin (with B6)] 1 EACH tablet 2 ea PO QHS RF: 0 amitriptyline 25 MG tablet 25 mg PO QHS RF: 0 omeprazole 20 MG capsule 20 mg PO DAILY RF: 0 pravastatin 40 MG tablet 40 mg PO DAILY RF: 0 fluphenazine HCl 1 MG tablet 1 mg PO QHS RF: 0 tapentadol 75 MG tablet 75 mg PO TID RF: 0 cariprazine 3 MG capsule 3 mg PO QHS RF: 0 guaifenesin 600 MG tablet extended release 12hr 600 mg PO TID RF: 0 magnesium oxide 400 MG tablet 400 mg PO DAILY RF: 0 Primary Care Provider: Vivian Meyer Referrals: Vivian Meyer MD [Primary Care Provider] - As soon as possible Activity Restrictions/Additional Instructions: If it has been a couple years since you have last seen your diamond grinder I think you should call the office and arrange a follow-up appointment. Disposition Disposition: Home, Self Care
[2021-01-05 02:24] LABS: Absolute Lymphocyte Count 1.08 X10^3/uL (0.83-4.51); Absolute Neutrophil Count 3.3 X10^3/uL (2.0-7.7); Basophil# 0.02 X10^3/uL; Basophil% 0.4 % (0-1); Eosinophil# 0.17 X10^3/uL; Eosinophils% 3.4 % (0-5); Hematocrit 35.4 % (37-47); Hemoglobin 10.7 g/dL (12.0-15.0); Lymphocyte # 1.08 X10^3/ul (0.83-4.51); Lymphocyte % 21.7 % (19-41); Mean Corp Hgb Conc 30.2 g/dL (32-36); Mean Corpuscular Hgb 26.7 pg (27.0-32.0); Mean Corpuscular Volume 88.3 fL (81-99); Mean Platelet Vol. 10.1 fl (6.2-12.0); Monocyte# 0.42 X10^3/uL; Monocyte% 8.4 % (0-10); NRBC Flagged by Analyzer 0 % (0-5); Neutrophil # 3.27 X10^3/uL (2.7-7.7); Neutrophil % 65.7 % (47-70); Platelet Count 179 K/mm3 (150-450); RBC Distribution Width CV 14.1 % (11.6-14.6); RBC Distribution Width SD 45.2 fl (35.1-43.9); Red Blood Count 4.01 M/mm3 (4.2-5.4)
[2021-01-05 02:48] LABS: Anion Gap 3 (5-15); BUN 10 mg/dL (7-18); BUN/Creat Ratio 8.2 RATIO (10-20); Calcium,Total 8.7 mg/dL (8.5-10.1); Chloride 99 mmol/L (98-107); Creatinine, Serum 1.22 mg/dL (0.55-1.02); EST Glomerular Filtration Rate 47 mL/min (>60); Est Glom Filt Rate - Afr Amer 57 mL/min (>60); Estimated Creatinine Clearance 44.76 ml/min; Glucose 275 mg/dL (74-106); Potassium 4.9 mmol/L (3.5-5.1); Sodium Level 126 mmol/L (136-145); Troponin-I HS 8 pg/mL (3.0-54.0)
[2021-01-05 03:03] VITALS: PULSE 75; RESP 17; O2SAT 98
== END 2021-01-05 03:12 | disposition home or self-care (01) ==
PROVIDERS: Emergency Provider Emergency Medicine; PCP Internal Medicine
DX: M25.512 Pain in left shoulder (principal); R07.9 Chest pain, unspecified; I10 Essential (primary) hypertension; I27.21 Secondary pulmonary arterial hypertension; J44.9 Chronic obstructive pulmonary disease, unspecified; E10.9 Type 1 diabetes mellitus without complications; E78.5 Hyperlipidemia, unspecified; K21.9 Gastro-esophageal reflux disease without esophagitis; E66.9 Obesity, unspecified; Z68.32 Body mass index [BMI] 32.0-32.9, adult; Z95.0 Presence of cardiac pacemaker; Z79.84 Long term (current) use of oral hypoglycemic drugs; Z79.4 Long term (current) use of insulin; Z79.899 Other long term (current) drug therapy; Z87.891 Personal history of nicotine dependence
CPT/HCPCS: 71045; 80048; 84484; 85025; 93005; 99285

== ENCOUNTER 2021-03-09 13:06 | Outpatient (CLI) | payer MEDICAID, SELFPAY ==
[2021-03-09 14:31] LABS: Amphetamine Urine VISTA NEGATIVE (<1000 ng/mL); Barbiturate Urine VISTA NEGATIVE (< 200 ng/mL); Benzodiazepine Urine VISTA NEGATIVE (< 200 ng/mL); Cocaine Urine VISTA NEGATIVE (< 300 ng/mL); Ecstacy Urine VISTA POSITIVE (< 500 ng/mL); Methadone Urine VISTA NEGATIVE (< 300 ng/mL); PCP Urine VISTA NEGATIVE (< 25 ng/mL); THC Urine VISTA NEGATIVE (< 50 ng/mL); Vista UDS pH Range 6
== END 2021-03-09 23:59 | disposition short-term general hospital (02) ==
PROVIDERS: PCP Internal Medicine; Referring Provider Anesthesiology Pain Medicine; Visit Provider Anesthesiology Pain Medicine
DX: F11.20 Opioid dependence, uncomplicated (principal)
CPT/HCPCS: 80307

== ENCOUNTER 2021-05-16 23:18 | Emergency (ER) | payer MEDICAID, SELFPAY ==
[2021-05-16 23:19] VITALS: BP 151/61; PULSE 80; RESP 16; TEMP 36.6; O2SAT 98; BMI 34.7
[2021-05-17] MEDS: fentaNYL 100 MCG/2 ML Ampul IM (00:35)
--- NOTE | 2021-05-17 01:41 | EDS_ITS ---
HPI History of Present Illness Chief Complaint: Other, Pain/Inj Narrative Narrative: Patient is a 60-year-old female with past medical history of multiple abdominal surgeries and hernias leading to need for colostomy. She also states that she has a history of fistulas. She reports that over the last few weeks she has felt like down in the rectal region there is been small lumps that are related to her fistula formation and this has been causing increased pain. She states she is talked to her general surgeon who prescribed her topical cream. She states she has been using this along with her other medication without symptom improvement and therefore comes in for evaluation [facility] Medical History Anemia Anxiety and depression Asthma Bradycardia Colon cancer COPD (chronic obstructive pulmonary disease) GERD (gastroesophageal reflux disease) Hyperlipidemia Hypertension Obesity (BMI 30.0-34.9) Paranoid schizophrenia Secondary pulmonary arterial hypertension Tracheitis Type I diabetes mellitus Home Medications topiramate 100 mg PO BID 03/01/17 [History Last Taken 12/06/18 09:00] hydrocortisone 2.5 % topical cream 1 applic TOPICAL DAILY 30 Days #30 10/31/17 [History Last Taken Unknown] insulin glargine 100 unit/mL (3 mL) subcutaneous pen 17 unit SC QHS 10/31/17 [History Last Taken Unknown] ipratropium 0.5 mg-albuterol 3 mg (2.5 mg base)/3 mL nebulization soln 3 ml INHALATION 4X/DAY 10/31/17 [History Last Taken Unknown] thiothixene 2 mg capsule 2 mg PO DAILY 30 Days #30 10/31/17 [History Last Taken 12/04/17 05:30] trazodone 100 mg tablet 300 mg PO QHS 30 Days #90 10/31/17 [History Last Taken Unknown] glimepiride 4 mg tablet 4 mg PO DAILY 30 Days #30 11/01/17 [History Last Taken Unknown] amitriptyline 25 mg PO QHS 11/28/17 [History Last Taken Unknown] melatonin-pyridoxine (vit B6) [Melatonin 5 mg Tablet] 2 ea PO QHS 11/28/17 [History Last Taken Unknown] omeprazole 20 mg PO DAILY 12/04/17 [History Last Taken 12/06/18 09:00] cariprazine 3 mg PO QHS 12/04/18 [History Last Taken Unknown] fluphenazine HCl 1 mg PO QHS 12/04/18 [History Last Taken Unknown] guaifenesin 600 mg PO TID 12/04/18 [History Last Taken 12/06/18 09:00] pravastatin 40 mg PO DAILY 12/04/18 [History Last Taken Unknown] tapentadol 75 mg PO TID 12/04/18 [History Last Taken 12/06/18 09:00] magnesium oxide 400 mg PO DAILY 04/16/19 [History Last Taken Unknown] hydrocortisone-pramoxine [Proctofoam HC] 1 applic [place] DAILY 14 Days #10 g 05/17/21 [Rx Last Taken Unknown] Allergy/AdvReac Type Severity Reaction Status Date / Time azithromycin Allergy Rash Verified 01/05/21 01:39 Cephalosporins Allergy Rash Verified 01/05/21 01:39 codeine Allergy Rash Verified 01/05/21 01:39 diclofenac [Diclofenac] Allergy Rash Verified 01/05/21 01:39 hydrocodone bitartrate Allergy Rash Verified 01/05/21 01:39 [From Vicodin] hydromorphone HCl Allergy Rash Verified 01/05/21 01:39 [From Dilaudid] Opioids - Morphine Analogues Allergy Rash Verified 01/05/21 01:39 Penicillins Allergy Anaphylaxis Verified 01/05/21 01:39 Sulfa (Sulfonamide Allergy Rash Verified 01/05/21 01:39 Antibiotics) cherries Allergy Angioedema Uncoded 01/05/21 01:39 philomena Allergy Angioedema Uncoded 01/05/21 01:39 pears AdvReac Unknown Uncoded 01/05/21 01:39 soap AdvReac Unknown Uncoded 01/05/21 01:39 Family History Father Heart disease Other Thyroid disorder Surgical History Colostomy in place History of colectomy Presence of cardiac pacemaker (09/28/16) Tracheostomy in place Social History (Updated 01/05/21 @ 01:[address] Artem Dinero DO) Smoking Status: Former smoker quit date: 08/27/10 pack-years: 45 substance use type: does not use ROS ROS ED Constitutional Constitutional ED: Denies chills or fever(s) ENT ENT ED: Denies sore throat Cardiovascular Cardiovascular: Denies chest pain Respiratory/Chest Respiratory/Chest: Denies cough or dyspnea Gastrointestinal Gastrointestinal: Denies abdominal pain, nausea or vomiting Genitourinary Genitourinary ED: Reports other Details: Positive rectal pain ; Denies dysuria Musculoskeletal Musculoskeletal: Denies myalgias Integumentary Denies rash Neurologic Neurologic: Denies headache(s) Hematologic/Lymphatic Hematologic/Lymphatic: Denies easy bleeding or easy bruising EXAM Physical Exam Const Vital Signs: 05/16/21 23:19 05/17/21 02:19 Temperature 98 F Temperature Source Temporal Pulse Rate 80 78 Respiratory Rate 16 18 Blood Pressure 151/61 H Blood Pressure Mean 91 Pulse Ox 98 98 Oxygen Delivery Method Room Air Positive well nourished, well developed and obese General Appearance ED: well developed Nutritional Appearance: obese HEENT Reports dry mucous membranes Mouth ED: Yes dry mucous membranes Mouth: dry mucous membranes Eyes PERRL and EOMs intact bilaterally Neck supple Resp normal respiratory effort and clear to auscultation bilaterally Cardio regular rate and regular rhythm Rate: other Other Details: Radial pulses are +2-4 bilaterally are equal and symmetric GI non-tender and non-distended GI Narrative: Patient has colostomy in place in the left mid abdomen. She has chronic abdominal wall hernias all which are reducible in nature. There is no pain on palpation over top the abdomen no voluntary guarding or rigidity. No pulsatile mass. No secondary soft tissue changes to suggest infection around the colostomy site Auscultation: normoactive bowel sounds Palpation: soft Narrative: Rectal exam shows nonbleeding nonthrombosed external hemorrhoid that are painful to palpation. No obvious perirectal abscess formation noted Extremity normal to inspection Neuro oriented x3 and CN's II-XII intact bilaterally Sensorium / Orientation: alert Motor Exam: strength 5/5 throughout Psych mental status grossly normal Skin Skin Narrative: Soft tissue changes around the rectum consistent with thrombosed hemorrhoid as documented below MDM MDM MDM Narrative Medical decision making narrative: Patient presented to the ER afebrile and complained of pain in the rectal region. On exam she has 2 areas that appear to be thrombosed hemorrhoids. There is no obvious surrounding secondary changes to suggest infection such as peritonsillar abscess or cellulitis. Her abdomen has chronic changes but no secondary findings to suggest underlying intestinal infection or incarcerated hernia or bowel obstruction. Therefore do not feel there is need for imaging or laboratory studies. The patient underwent incision and drainage of the thrombosed hemorrhoids as documented below. Following this she can be kept on Proctofoam to help further prevent any return of the hemorrhoid and is otherwise safe for discharge Patient had the rectum cleaned with chlorhexidine. The thrombosed hemorrhoids were anesthetized using 2% lidocaine with epinephrine in local fashion. A #11 blade was then used to make a 1 cm incision over top each thrombosed hemorrhoid for a total of 2 incision. Pressure was applied and there was a moderate amount of blood expressed. No purulent material noted to suggest underlying abscess. Patient tolerated procedure well without complication. Discharge Plan Triage Chief Complaint: Other, Pain/Inj ED Provider: Emerson Bhatia Dx/Rx/DC Orders Clinical Impression: External thrombosed hemorrhoids Instructions: Thrombosed Hemorrhoids, ED Hemorrhoids Prescriptions: New Proctofoam HC 1-1 % foam 1 applic [place] DAILY 14 Days Qty: 10 RF: 0 No Action glimepiride 4 mg tablet 4 mg PO DAILY 30 Days Qty: 30 RF: 0 hydrocortisone 2.5 % cream 1 applic TOPICAL DAILY 30 Days Qty: 30 RF: 0 thiothixene 2 mg capsule 2 mg PO DAILY 30 Days Qty: 30 RF: 0 trazodone 100 mg tablet 300 mg PO QHS 30 Days Qty: 90 RF: 0 insulin glargine [Lantus Solostar U-100 Insulin] 100 unit/mL (3 mL) insulin pen 17 unit SC QHS RF: 0 ipratropium-albuterol 0.5 mg-3 mg(2.5 mg base)/3 mL solution for nebulization 3 ml INHALATION 4X/DAY RF: 0 topiramate 100 mg tablet 100 mg PO BID RF: 0 melatonin-pyridoxine (vit B6) [Melatonin (with B6)] 1 EACH tablet 2 ea PO QHS RF: 0 amitriptyline 25 MG tablet 25 mg PO QHS RF: 0 omeprazole 20 MG capsule 20 mg PO DAILY RF: 0 pravastatin 40 MG tablet 40 mg PO DAILY RF: 0 fluphenazine HCl 1 MG tablet 1 mg PO QHS RF: 0 tapentadol 75 MG tablet 75 mg PO TID RF: 0 cariprazine 3 MG capsule 3 mg PO QHS RF: 0 guaifenesin 600 MG tablet extended release 12hr 600 mg PO TID RF: 0 magnesium oxide 400 MG tablet 400 mg PO DAILY RF: 0 Primary Care Provider: Vivian Meyer Referrals: Vivian Meyer MD [Primary Care Provider] - Activity Restrictions/Additional Instructions: Please use the Proctofoam once daily as directed to help resolve any further hemorrhoids and continue to use the [id number] cream to help with irritation as well Disposition Disposition: Home, Self Care Discharge Date/Time: 05/17/21 02:19
[2021-05-17] MEDS: Lidocaine 2% /Epi 1:100 (20ml) 20 ML VIAL INFILT (02:13)
[2021-05-17 02:19] VITALS: PULSE 78; RESP 18; O2SAT 98
== END 2021-05-17 02:19 | disposition home or self-care (01) ==
PROVIDERS: Emergency Provider Emergency Medicine; PCP Internal Medicine; Visit Provider Emergency Medicine
DX: K64.5 Perianal venous thrombosis (principal); Z93.3 Colostomy status; Z79.4 Long term (current) use of insulin; K21.9 Gastro-esophageal reflux disease without esophagitis; F32.A Depression, unspecified; F41.9 Anxiety disorder, unspecified; E66.9 Obesity, unspecified; Z68.34 Body mass index [BMI] 34.0-34.9, adult; Z79.84 Long term (current) use of oral hypoglycemic drugs; Z79.899 Other long term (current) drug therapy; Z87.891 Personal history of nicotine dependence
CPT/HCPCS: 46083 ×2; 96372; 99283; A4216

== ENCOUNTER 2021-06-10 17:18 | Emergency (ER) | payer MEDICAID, SELFPAY ==
[2021-06-10 17:20] VITALS: BP 123/58; PULSE 100; RESP 18; TEMP 36.3; O2SAT 98; BMI 32.3
--- NOTE | 2021-06-10 17:42 | CT_ITS ---
INDICATION: rectal abscess/ fistula EXAMINATION: CT Abdomen And Pelvis W/ Contrast Injection TECHNIQUE: Helically acquired images were obtained of the abdomen and pelvis after IV contrast. A radiation dose optimization technique was used for this scan. IV Contrast dosage and agent: IV 100mL [id number]-370 Oral contrast: None. COMPARISON: 04/27/2018. FINDINGS: Visualized lung bases: Unremarkable Liver: Unremarkable Gallbladder: Unremarkable Spleen: Well-circumscribed partially calcified cystic structure within the spleen stable since prior study measuring 2.5 x 2.5 cm. Pancreas: Unremarkable Adrenal Glands: Unremarkable Kidneys: Stable bilateral renal cysts. Vasculature: Moderate aortoiliac atherosclerotic disease. GI Tract: There are postsurgical changes of the bowel with a left lower quadrant colostomy. There is fat stranding surrounding the rectum. No focal fluid collection. Lymphadenopathy: None Peritoneum: No ascites. Bladder: Unremarkable Reproductive organs: Unremarkable Bones/Soft tissues: Wide diastases of the abdominal wall. Multiple fat and bowel containing anterior abdominal wall hernias. CT/Abdomen/Pelvis W IV Cont ONLY IMPRESSION: Inflammatory changes surrounding the rectum could represent proctitis. No evidence of abscess or fistula. Wide diastases of the abdominal wall with multiple fat and bowel containing anterior abdominal wall hernias. Stable splenic cyst. Electronically Signed: Markus Adrian MD at 19:23 EDT ,
--- NOTE | 2021-06-10 17:43 | EDS_ITS ---
HPI History of Present Illness Chief Complaint: Other, Pain/Inj Detail of Chief Complaint: Rectal pain x3 months Informant: patient Narrative Narrative: Patient presents to the emergency department complaint of rectal pain x3 months. Patient states that she saw a surgeon Dr. Hunter who is treating her for a rectal fissure. Patient states that once a day she has purulent drainage it comes out her vagina and out of her rectum. 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 Patient denies any fevers or chills or sweats. She denies dysuria. Patient was treated with lidocaine topical as well as Butt paste. [facility] Medical History Anemia Anxiety and depression Asthma Bradycardia Colon cancer COPD (chronic obstructive pulmonary disease) GERD (gastroesophageal reflux disease) Hyperlipidemia Hypertension Obesity (BMI 30.0-34.9) Paranoid schizophrenia Secondary pulmonary arterial hypertension Tracheitis Type I diabetes mellitus Home Medications topiramate 100 mg PO BID 03/01/17 [History Last Taken 12/06/18 09:00] hydrocortisone 2.5 % topical cream 1 applic TOPICAL DAILY 30 Days #30 10/31/17 [History Last Taken Unknown] insulin glargine 100 unit/mL (3 mL) subcutaneous pen 12 unit SC QHS 10/31/17 [History Last Taken Unknown] ipratropium 0.5 mg-albuterol 3 mg (2.5 mg base)/3 mL nebulization soln 3 ml INHALATION 4X/DAY 10/31/17 [History Last Taken Unknown] thiothixene 2 mg capsule 2 mg PO DAILY 30 Days #30 10/31/17 [History Last Taken 12/04/17 05:30] trazodone 100 mg tablet 300 mg PO QHS 30 Days #90 10/31/17 [History Last Taken Unknown] glimepiride 4 mg tablet 4 mg PO DAILY 30 Days #30 11/01/17 [History Last Taken Unknown] amitriptyline 25 mg PO QHS 11/28/17 [History Last Taken Unknown] melatonin-pyridoxine (vit B6) [Melatonin 5 mg Tablet] 2 ea PO QHS 11/28/17 [History Last Taken Unknown] omeprazole 20 mg PO DAILY 12/04/17 [History Last Taken 12/06/18 09:00] cariprazine 3 mg PO QHS 12/04/18 [History Last Taken Unknown] fluphenazine HCl 1 mg PO QHS 12/04/18 [History Last Taken Unknown] guaifenesin 600 mg PO TID 12/04/18 [History Last Taken 12/06/18 09:00] pravastatin 40 mg PO DAILY 12/04/18 [History Last Taken Unknown] tapentadol 75 mg PO TID 12/04/18 [History Last Taken 12/06/18 09:00] magnesium oxide 400 mg PO DAILY 04/16/19 [History Last Taken Unknown] hydrocortisone 1 applic [place] QHS PRN #30 g 05/17/21 [Rx Last Taken Unknown] ciprofloxacin HCl 500 mg PO BID #14 tablet 06/10/21 [Rx Last Taken Unknown] Allergy/AdvReac Type Severity Reaction Status Date / Time azithromycin Allergy Rash Verified 06/10/21 17:22 Cephalosporins Allergy Rash Verified 06/10/21 17:22 codeine Allergy Rash Verified 06/10/21 17:22 diclofenac [Diclofenac] Allergy Rash Verified 06/10/21 17:22 hydrocodone bitartrate Allergy Rash Verified 06/10/21 17:22 [From Vicodin] hydromorphone HCl Allergy Rash Verified 06/10/21 17:22 [From Dilaudid] Opioids - Morphine Analogues Allergy Rash Verified 06/10/21 17:22 Penicillins Allergy Anaphylaxis Verified 06/10/21 17:22 Sulfa (Sulfonamide Allergy Rash Verified 06/10/21 17:22 Antibiotics) cherries Allergy Angioedema Uncoded 06/10/21 17:22 philomena Allergy Angioedema Uncoded 06/10/21 17:22 pears AdvReac Unknown Uncoded 06/10/21 17:22 soap AdvReac Unknown Uncoded 06/10/21 17:22 Family History Father Heart disease Other Thyroid disorder Surgical History Colostomy in place History of colectomy Presence of cardiac pacemaker (09/28/16) Tracheostomy in place Social History (Updated 01/05/21 @ 01:[address] Artem Dinero DO) Smoking Status: Former smoker quit date: 08/27/10 pack-years: 45 substance use type: does not use ROS ROS ED Constitutional Constitutional ED: Reports systems reviewed and no addt'l complaints, except as documented; Denies body ache(s), change in weight or chills Eyes Eyes: Denies acute decrease in peripheral vision, change in vision, double vision or loss of vision ENT ENT ED: Reports none; Denies ear pain, lip swelling, loss taste/smell, neck pain, otalgia or sore throat Cardiovascular Cardiovascular: Reports none; Denies abdominal pain, chest pain with activity, leg edema, lightheadedness, palpitations, rapid heart rate or syncope Respiratory/Chest Respiratory/Chest: Reports none; Denies change in mental status, dry cough, dyspnea, hemoptysis, shortness of breath at rest or shortness of breath with exertion Gastrointestinal Gastrointestinal: Reports none; Denies abdominal pain, change in stool character, diarrhea, hematemesis, hematochezia, melena, rectal bleeding or vomiting Genitourinary Genitourinary ED: Reports none and other Details: Rectal pain ; Denies abdominal discomfort, anuria, dysuria, genital pain or polyuria Musculoskeletal Musculoskeletal: Reports none; Denies arthralgias, back pain, difficulty walking, extremity pain, muscle weakness or myalgias Integumentary Reports none; Denies abscess or rash Neurologic Neurologic: Reports none; Denies abnormal gait, confusion, focal weakness, frequent falls, headache(s), loss of vision, numbness, paresthesias, radicular pain, vertigo or weakness Psychiatric Psychiatric: Reports systems reviewed and no addt'l complaints, except as documented and none; Denies behavioral changes, confusion, difficulty concentrating, hallucinations, suicidal ideation, tactile hallucinations or visual hallucinations Endocrine Endocrinology: Denies none, cold intolerance, excessive sweating, fatigue or heat intolerance Hematologic/Lymphatic Hematologic/Lymphatic: Reports none; Denies anemia, easy bleeding or easy bruising Allergic/Immunologic Allergic/Immunologic ED: Denies as per HPI, none, lip swelling, mouth swelling, throat swelling, tongue swelling or hives EXAM Physical Exam Const Vital Signs: 06/10/21 17:20 06/10/21 20:17 Temperature 97.3 F L Temperature Source Temporal Pulse Rate 100 Respiratory Rate 18 Blood Pressure 123/58 H 151/65 H Blood Pressure Mean 79 Pulse Ox 98 Oxygen Delivery Method Room Air Positive well nourished and well developed General Appearance ED: well developed and NAD HEENT Reports TM's clear and moist mucous membranes normocephalic and atraumatic; Negative for trauma or tenderness Tympanic Membrane ED: Yes TM's clear Eyes PERRL and EOMs intact bilaterally General Eye ED: Negative for pale conjunctiva or scleral icterus Neck no lymphadenopathy, supple and no JVD General: Negative for tenderness Chest Wall inspection of chest normal and palpation of chest normal Chest: Negative for tenderness Resp normal respiratory effort and clear to auscultation bilaterally Effort and Inspection: Negative for respiratory distress or pain with movement Auscultation: Negative for rhonchi, wheezes or diminished lung sounds Cardio regular rate, regular rhythm, S1 normal heart sound, S2 normal heart sound and no murmurs Peripheral Pulses: pulses 2+ throughout GI normal to inspection, nondistended, normoactive bowel sounds, soft to palpation, non-tender, non-distended and no masses GI Narrative: Patient has purulent drainage from her rectum. Do not appreciate any bleeding or hemorrhoids or fissures. Back/Spine no CVA tenderness and no thoracic nor lumbar tenderness Extremity normal to inspection General Extremety ED: Negative for edema General Extremity: Negative for edema Neuro oriented x3, CN's II-XII intact bilaterally, no sensory deficits noted and gait normal Sensorium / Orientation: awake, alert, oriented to person, oriented to place and oriented to time Motor Exam: strength 5/5 throughout and strength abnormal Psych mental status grossly normal Skin no rashes or lesions noted and no wounds MDM MDM MDM Narrative Medical decision making narrative: After examination patient I was concerned might have a fistula from the rectum to the vagina. An IV line established. Lab work obtained was unremarkable. Lactate was normal. Urine Alysis was deferred fracture. Urine culture was sent. Patient was started on Cipro p.o. I did do a CT scan of the abdomen pelvis with IV contrast that showed some inflammatory changes around the rectum but they did not see any obvious fistula. I discussed case with general surgeon on-call Dr. Sabina Hernandez who asked that patient follow-up with Dr. Hunter in the office as she does have an appointment in 5 days. I will start patient on Cipro. I will give patient a Duragesic patch. Patient also was given fentanyl 25 mcg IV x2 in the department she had did have good pain relief with that. Lab Data Attestation: I reviewed the patient's lab results. Labs: Laboratory Results - last 24 hr 06/10/21 06/10/21 06/10/21 17:55 17:55 17:55 WBC 6.6 RBC 3.61 L Hgb 9.3 L Hct 31.2 L MCV 86.4 MCH 25.8 L MCHC 29.8 L RDW Std Deviation 51.9 H RDW Coeff of Gali 16.5 H Plt Count 359 MPV 9.0 Immature Gran % (Auto) 0.300 Neut % (Auto) 76.2 H Lymph % (Auto) 14.9 L [place] % (Auto) 7.6 Eos % (Auto) 0.5 Baso % (Auto) 0.5 Absolute Neuts (auto) 5.0 Absolute Lymphs (auto) 0.98 Nucleated RBC % 0 Sodium 134 L Potassium 4.0 Chloride 106 Carbon Dioxide 21.0 Anion Gap 7 BUN 15 Creatinine 1.28 H Estim Creat Clear Calc 42.66 Est GFR (MDRD) Af Amer 54 L Est GFR (MDRD) Non-Af 45 L BUN/Creatinine Ratio 11.7 Glucose 274 H Lactic Acid 1.1 Calcium 8.2 L Urine Color Urine Clarity Urine pH Ur Specific [place] Urine Protein Urine Glucose (UA) Urine Ketones Urine Occult Blood Urine Nitrite Urine Bilirubin Urine Urobilinogen Ur Leukocyte Esterase Urine RBC Urine WBC Ur Squamous Epith Cells Urine Bacteria Urine Mucus 06/10/21 18:30 WBC RBC Hgb Hct MCV MCH MCHC RDW Std Deviation RDW Coeff of Gali Plt Count MPV Immature Gran % (Auto) Neut % (Auto) Lymph % (Auto) [place] % (Auto) Eos % (Auto) Baso % (Auto) Absolute Neuts (auto) Absolute Lymphs (auto) Nucleated RBC % Sodium Potassium Chloride Carbon Dioxide Anion Gap BUN Creatinine Estim Creat Clear Calc Est GFR (MDRD) Af Amer Est GFR (MDRD) Non-Af BUN/Creatinine Ratio Glucose Lactic Acid Calcium Urine Color Yellow Urine Clarity Sl. Cloudy Urine pH 5.0 Ur Specific [place] 1.010 Urine Protein 30 H Urine Glucose (UA) Normal Urine Ketones Negative Urine Occult Blood 25 H Urine Nitrite Negative Urine Bilirubin Negative Urine Urobilinogen Normal Ur Leukocyte Esterase 500 H Urine RBC 0-5 SEEN Urine WBC >100 SEEN Ur Squamous Epith Cells 0-5 SEEN Urine Bacteria 1+ Urine Mucus 0 SEEN Radiography Diagnostic Testing: Clinical Impression(s) from Imaging Studies Abdomen/Pelvis CT 06/10/21 17:42 IMPRESSION: Inflammatory changes surrounding the rectum could represent proctitis. No evidence of abscess or fistula. Wide diastases of the abdominal wall with multiple fat and bowel containing anterior abdominal wall hernias. Stable splenic cyst. Electronically Signed: Markus Adrian MD at 19:23 EDT , Discharge Plan Triage Chief Complaint: Other, Pain/Inj ED Provider: Bouchra Vidal Dx/Rx/DC Orders Clinical Impression: Anal or rectal pain, UTI (urinary tract infection) Instructions: ED Understanding Anal Fissures, Taking a Sitz Bath, ED Pain, Acute, Uncertain Cause, ED CYSTITIS Female Adult Prescriptions: New ciprofloxacin HCl [ciprofloxacin HCl] 500 MG tablet 500 mg PO BID Qty: 14 RF: 0 No Action glimepiride 4 mg tablet 4 mg PO DAILY 30 Days Qty: 30 RF: 0 hydrocortisone 2.5 % cream 1 applic TOPICAL DAILY 30 Days Qty: 30 RF: 0 thiothixene 2 mg capsule 2 mg PO DAILY 30 Days Qty: 30 RF: 0 trazodone 100 mg tablet 300 mg PO QHS 30 Days Qty: 90 RF: 0 insulin glargine [Lantus Solostar U-100 Insulin] 100 unit/mL (3 mL) insulin pen 12 unit SC QHS RF: 0 ipratropium-albuterol 0.5 mg-3 mg(2.5 mg base)/3 mL solution for nebulization 3 ml INHALATION 4X/DAY RF: 0 topiramate 100 mg tablet 100 mg PO BID RF: 0 melatonin-pyridoxine (vit B6) [Melatonin (with B6)] 1 EACH tablet 2 ea PO QHS RF: 0 amitriptyline 25 MG tablet 25 mg PO QHS RF: 0 omeprazole 20 MG capsule 20 mg PO DAILY RF: 0 pravastatin 40 MG tablet 40 mg PO DAILY RF: 0 fluphenazine HCl 1 MG tablet 1 mg PO QHS RF: 0 tapentadol 75 MG tablet 75 mg PO TID RF: 0 cariprazine 3 MG capsule 3 mg PO QHS RF: 0 guaifenesin 600 MG tablet extended release 12hr 600 mg PO TID RF: 0 magnesium oxide 400 MG tablet 400 mg PO DAILY RF: 0 hydrocortisone 2.5 % cream with perineal applicator 1 applic [place] QHS PRN (Reason: hemorrhoids) Qty: 30 RF: 0 Primary Care Provider: Vivian Meyer Referrals: Artem Hunter MD [STAFF PHYSICIAN] - 3-5 Days Vivian Meyer MD [Primary Care Provider] - Disposition Disposition: Home, Self Care Discharge Date/Time: 06/10/21 20:23
[2021-06-10 18:02] LABS: Absolute Lymphocyte Count 0.98 X10^3/uL (0.83-4.51); Basophil# 0.03 X10^3/uL; Basophil% 0.5 % (0-1); Eosinophil# 0.03 X10^3/uL; Eosinophils% 0.5 % (0-5); Hematocrit 31.2 % (37-47); Hemoglobin 9.3 g/dL (12.0-15.0); Lymphocyte # 0.98 X10^3/ul (0.83-4.51); Lymphocyte % 14.9 % (19-41); Mean Corp Hgb Conc 29.8 g/dL (32-36); Mean Corpuscular Hgb 25.8 pg (27.0-32.0); Mean Corpuscular Volume 86.4 fL (81-99); Monocyte% 7.6 % (0-10); NRBC Flagged by Analyzer 0 % (0-5); Neutrophil # 5.02 X10^3/uL (2.7-7.7); Neutrophil % 76.2 % (47-70); Platelet Count 359 K/mm3 (150-450); RBC Distribution Width CV 16.5 % (11.6-14.6); RBC Distribution Width SD 51.9 fl (35.1-43.9); Red Blood Count 3.61 M/mm3 (4.2-5.4); White Blood Count 6.6 K/mm3 (4.4-11.0)
[2021-06-10] MEDS: fentaNYL 100 MCG/2 ML Ampul 25 MCG IV ×2 (18:04→19:28)
[2021-06-10] MEDS: Ondansetron 4 MG/2 ML Vial IV (18:04)
[2021-06-10] MEDS: 0.9% Normal Saline 1,000 ML 150 ML IV (18:05)
[2021-06-10 18:17] LABS: Anion Gap 7 (5-15); BUN 15 mg/dL (7-18); BUN/Creat Ratio 11.7 RATIO (10-20); Calcium,Total 8.2 mg/dL (8.5-10.1); Chloride 106 mmol/L (98-107); Creatinine, Serum 1.28 mg/dL (0.55-1.02); EST Glomerular Filtration Rate 45 mL/min (>60); Est Glom Filt Rate - Afr Amer 54 mL/min (>60); Estimated Creatinine Clearance 42.66 ml/min; Glucose 274 mg/dL (74-106); Sodium Level 134 mmol/L (136-145)
[2021-06-10 18:30] LABS: Lactic Acid 1.1 mmol/L (0.4-1.9)
[2021-06-10 18:41] LABS: Mucous, Urine 0 SEEN /hpf (<or=2+)
[2021-06-10 18:42] LABS: Color, Urine Yellow (Yellow); Glucose, Dipstick Normal (Normal); Ketone-Dipstick Negative (Negative); Leukocyte Esterase-Dipstick 500 /ul (Negative); Nitrite-Dipstick Negative (Negative); Occult Blood-Urine 25 /ul (Negative); Protein-Dipstick 30 mg/dl (Negative); Urine Bilirubin Dipstick Negative (Negative); Urine Clarity Sl. Cloudy (Clear); Urine Urobilinogen Normal (Normal)
[2021-06-10 18:50] LABS: White Blood Cells >100 SEEN /hpf (0-5)
[2021-06-10 18:51] LABS: Bacteria 1+ /hpf (None Seen); Red Blood Cells-Urine 0-5 SEEN /hpf (0-5); Squamous Epithelial Cells - UA 0-5 SEEN /hpf (5-10)
[2021-06-10] MEDS: Ciprofloxacin 500 MG Tablet PO (20:10)
[2021-06-10 20:17] VITALS: BP 151/65
== END 2021-06-10 20:23 | disposition home or self-care (01) ==
PROVIDERS: Emergency Provider Emergency Medicine; PCP Internal Medicine; Visit Provider Emergency Medicine
DX: K62.89 Other specified diseases of anus and rectum (principal); Z93.0 Tracheostomy status; J44.9 Chronic obstructive pulmonary disease, unspecified; E10.9 Type 1 diabetes mellitus without complications; Z79.4 Long term (current) use of insulin; N39.0 Urinary tract infection, site not specified; I10 Essential (primary) hypertension; E78.5 Hyperlipidemia, unspecified; K21.9 Gastro-esophageal reflux disease without esophagitis; F32.A Depression, unspecified; F41.9 Anxiety disorder, unspecified; E66.9 Obesity, unspecified; Z68.32 Body mass index [BMI] 32.0-32.9, adult; Z95.0 Presence of cardiac pacemaker; Z79.84 Long term (current) use of oral hypoglycemic drugs; Z79.899 Other long term (current) drug therapy; Z87.891 Personal history of nicotine dependence
CPT/HCPCS: 74177; 80048; 81001; 83605; 85025; 96361; 96374; 96375; 96376; 99285; J7030; Q9967; A4216; J2405

== ENCOUNTER 2021-06-12 12:56 | Emergency (ER) | payer MEDICAID, SELFPAY ==
[2021-06-12 12:58] VITALS: BP 114/61; PULSE 103; RESP 17; TEMP 36.4; O2SAT 95; BMI 29.7
--- NOTE | 2021-06-12 13:23 | ED.RN ---
patient and have vocalized there expectation for pain medication. pt was given fentanyl in multiple dosed last visit and sent home with a fentanyl patch per pt. pt and family were educated that the medications that the patient would receive today are based on dr judgement and evaluation. pt was asked what her expectations of care were and her response was to be pain free. dr informed about patient expectations and communication while in the patient room. jr sims rn [id number]
--- NOTE | 2021-06-12 13:45 | EDS_ITS ---
HPI History of Present Illness Chief Complaint: Other, Pain/Inj Narrative Narrative: Patient presents with because of rectal pain. She was seen in the emergency department on June 10, 3 days ago, because of rectal pain. She has a known rectal fissure for which she has been applying lidocaine cream without relief. She states she has an appointment with her surgeon, Dr. Hunter on the , 3 days from now. 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 She has a colostomy bag that she states she recently emptied this morning. Her states that she was crying because she was having rectal pain so he presents her to the emergency department for pain control. [facility] Medical History Anxiety and depression Asthma Bradycardia Colon cancer COPD (chronic obstructive pulmonary disease) GERD (gastroesophageal reflux disease) Hyperlipidemia Hypertension Obesity (BMI 30.0-34.9) Paranoid schizophrenia Secondary pulmonary arterial hypertension Tracheitis Type I diabetes mellitus Home Medications topiramate 100 mg PO BID 03/01/17 [History Last Taken 12/06/18 09:00] hydrocortisone 2.5 % topical cream 1 applic TOPICAL DAILY 30 Days #30 10/31/17 [History Last Taken Unknown] insulin glargine 100 unit/mL (3 mL) subcutaneous pen 12 unit SC QHS 10/31/17 [History Last Taken Unknown] ipratropium 0.5 mg-albuterol 3 mg (2.5 mg base)/3 mL nebulization soln 3 ml INHALATION 4X/DAY 10/31/17 [History Last Taken Unknown] thiothixene 2 mg capsule 2 mg PO DAILY 30 Days #30 10/31/17 [History Last Taken 12/04/17 05:30] trazodone 100 mg tablet 300 mg PO QHS 30 Days #90 10/31/17 [History Last Taken Unknown] glimepiride 4 mg tablet 4 mg PO DAILY 30 Days #30 11/01/17 [History Last Taken Unknown] amitriptyline 25 mg PO QHS 11/28/17 [History Last Taken Unknown] melatonin-pyridoxine (vit B6) [Melatonin 5 mg Tablet] 2 ea PO QHS 11/28/17 [History Last Taken Unknown] omeprazole 20 mg PO DAILY 12/04/17 [History Last Taken 12/06/18 09:00] cariprazine 3 mg PO QHS 12/04/18 [History Last Taken Unknown] fluphenazine HCl 1 mg PO QHS 12/04/18 [History Last Taken Unknown] guaifenesin 600 mg PO TID 12/04/18 [History Last Taken 12/06/18 09:00] pravastatin 40 mg PO DAILY 12/04/18 [History Last Taken Unknown] tapentadol 75 mg PO TID 12/04/18 [History Last Taken 12/06/18 09:00] magnesium oxide 400 mg PO DAILY 04/16/19 [History Last Taken Unknown] hydrocortisone 1 applic [place] QHS PRN #30 g 05/17/21 [Rx Last Taken Unknown] ciprofloxacin HCl 500 mg PO BID #14 tablet 06/10/21 [Rx Last Taken Unknown] Allergy/AdvReac Type Severity Reaction Status Date / Time azithromycin Allergy Rash Verified 06/12/21 12:57 Cephalosporins Allergy Rash Verified 06/12/21 12:57 codeine Allergy Rash Verified 06/12/21 12:57 diclofenac [Diclofenac] Allergy Rash Verified 06/12/21 12:57 hydrocodone bitartrate Allergy Rash Verified 06/12/21 12:57 [From Vicodin] hydromorphone HCl Allergy Rash Verified 06/12/21 12:57 [From Dilaudid] Opioids - Morphine Analogues Allergy Rash Verified 06/12/21 12:57 Penicillins Allergy Anaphylaxis Verified 06/12/21 12:57 Sulfa (Sulfonamide Allergy Rash Verified 06/12/21 12:57 Antibiotics) cherries Allergy Angioedema Uncoded 06/12/21 12:57 philomena Allergy Angioedema Uncoded 06/12/21 12:57 pears AdvReac Unknown Uncoded 06/12/21 12:57 soap AdvReac Unknown Uncoded 06/12/21 12:57 Family History Father Heart disease Other Thyroid disorder Surgical History Colostomy in place History of colectomy Presence of cardiac pacemaker (09/28/16) Tracheostomy in place Social History Smoking Status: Former smoker quit date: 08/27/10 pack-years: 45 substance use type: does not use ROS ROS ED ROS Narrative Constitutional: No fever, no chills. HEENT: No sore throat. No neck pain. No loss of vision. No rhinorrhea. Cardiovascular: No chest pain. No palpitations. No pedal edema. Respiratory: No cough, no shortness of breath. Abdominal: No abdominal pain. No nausea. No vomiting. Rectal pain from fissure. Genitourinary: No dysuria. No hematuria. Musculoskeletal: No myalgias. No arthralgias. Neurologic: No headaches. No dizziness. No lightheadedness. Skin: No rash. No change in color. Psychiatric: No depression. No anxiety. EXAM Physical Exam Narrative Exam Narrative: Afebrile. Vital signs noted. HEENT: Normocephalic. Atraumatic. PERRL, EOMI. Neck soft and supple. No point tenderness or step off. Cardiovascular: Regular rate and rhythm. No murmurs, rubs, or gallops appreciated. Respiratory: No tachypnea. Lungs clear to auscultation bilaterally. Gastrointestinal: Abdomen obese, soft, nontender, with normoactive bowel sounds. Positive colostomy bag with air and closed within. No rebound or guarding. Neurological: Awake. Alert. Nonfocal, nonlateralizing. Skin: No rash. Normal color. No pallor. Musculoskeletal: No pedal edema. Full range of motion extremities. Const Vital Signs: 06/12/21 12:58 06/12/21 13:11 Temperature 97.5 F L Temperature Source Temporal Pulse Rate 103 H Respiratory Rate 17 Respiratory Effort Normal Respiratory Pattern Normal Blood Pressure 114/61 Blood Pressure Mean 78 Pulse Ox 95 Oxygen Delivery Method Room Air MDM MDM MDM Narrative Medical decision making narrative: I reviewed her prior records from 3 days ago. She had a CT scan which did not show fistula. She had normal white count. I do not feel any laboratory work or imaging bears repeating. I did discuss patient with Dr. Hernandez on-call for Dr. Hunter. She agrees with Duragesic patch for pain control. I am hesitant to give her a large amount of narcotic pain medication so as to cause constipation or opiate bowel syndrome. At this point in time, she was given a Duragesic 25 mcg patch from the emergency department and told to keep her follow-up appointment with her surgeon in 3 days. I feel she be discharged safely home with follow-up. They will continue lidocaine ointment to the area to her rectal fissure. Disposition is discharged home in stable condition. Discharge Plan Triage Chief Complaint: Other, Pain/Inj ED Provider: Addi Catherine Dx/Rx/DC Orders Clinical Impression: History of rectal fissure, Anal or rectal pain Instructions: ED Pain Management: Chronic Prescriptions: No Action glimepiride 4 mg tablet 4 mg PO DAILY 30 Days Qty: 30 RF: 0 hydrocortisone 2.5 % cream 1 applic TOPICAL DAILY 30 Days Qty: 30 RF: 0 thiothixene 2 mg capsule 2 mg PO DAILY 30 Days Qty: 30 RF: 0 trazodone 100 mg tablet 300 mg PO QHS 30 Days Qty: 90 RF: 0 insulin glargine [Lantus Solostar U-100 Insulin] 100 unit/mL (3 mL) insulin pen 12 unit SC QHS RF: 0 ipratropium-albuterol 0.5 mg-3 mg(2.5 mg base)/3 mL solution for nebulization 3 ml INHALATION 4X/DAY RF: 0 topiramate 100 mg tablet 100 mg PO BID RF: 0 melatonin-pyridoxine (vit B6) [Melatonin (with B6)] 1 EACH tablet 2 ea PO QHS RF: 0 amitriptyline 25 MG tablet 25 mg PO QHS RF: 0 omeprazole 20 MG capsule 20 mg PO DAILY RF: 0 pravastatin 40 MG tablet 40 mg PO DAILY RF: 0 fluphenazine HCl 1 MG tablet 1 mg PO QHS RF: 0 tapentadol 75 MG tablet 75 mg PO TID RF: 0 cariprazine 3 MG capsule 3 mg PO QHS RF: 0 guaifenesin 600 MG tablet extended release 12hr 600 mg PO TID RF: 0 magnesium oxide 400 MG tablet 400 mg PO DAILY RF: 0 hydrocortisone 2.5 % cream with perineal applicator 1 applic [place] QHS PRN (Reason: hemorrhoids) Qty: 30 RF: 0 ciprofloxacin HCl [ciprofloxacin HCl] 500 MG tablet 500 mg PO BID Qty: 14 RF: 0 Primary Care Provider: Vivian Meyer Referrals: Vivian Meyer MD [Primary Care Provider] - Activity Restrictions/Additional Instructions: Follow-up with Dr. Hunter as scheduled on 15 June. Disposition Disposition: Home, Self Care
[2021-06-12] MEDS: fentaNYL 25 MCG Patch TD (14:24)
[2021-06-12 14:32] VITALS: PULSE 97; RESP 17; O2SAT 95
--- NOTE | 2021-06-12 14:35 | ED.RN ---
While discharging the patient this nurse attempted to educate the patient and on pain management. This nurse suggested that if her pain continued to be a problem even after her scheduled appointment with the surgeon this week to reach out to her PCP. kept repeating himself and becoming upset regarding coming back for another pain patch. This nurse stated that she can not speak for the previous MD that saw them but reinforced that the ED can not be used for chronic pain management and once again made the suggestion that if the patient's pain continues follow up with her PCP.
--- NOTE | 2021-06-12 14:45 | ED.RN ---
upset with nurse that discharged them. He stated that they were told by the dr to come back in 3 days to get more pain medication to get through until they see the dr on the . stated that the nurse told them that they couldn't keep using the ER for pain medication and that they should look into getting set up with pain management. stated that he has been dealing with her pain and trying to take care of her at home. He stated that he doesn't want to be here because he is tired but they were following drs orders. Pt and felt like they were being accused of misusing the ER to manage her pain. and pt were apologized to and they were offered the patient advocates card. declined to take the card as long as I agreed to speak to the nurse. had lost his phone and was looking for it. I went back to the room and spoke to the discharging nurse on the way out. Nurse stated that she did tell them not to use the ER for pain management and to follow up with them. I told the that I spoke to the nurse and they were ok and going home. Pt and ambulated out of the department without diffiuculty.
--- NOTE | 2021-06-12 16:48 | ED.RN ---
Pt called and stated that she is having a lot of pain. Pt wanted to know what the patch was that we gave her and why it wasn't working. Pt also wanted to know what they gave her 3 days ago that worked so well. Pt was advised that she had a 25mcg fentanyl patch on and that she had a 12 mcg patch along with 2 does of 25mcg of iv fentanyl. Pt asked what she was supposed to do because she is having so much pain. She was advised to take tylenol 650mg along with it. Pt stated that Dr Hunter told her to take 3 650mg tabs. I told her if thats what Dr Hunter said than take what he said.
== END 2021-06-12 14:53 | disposition home or self-care (01) ==
PROVIDERS: Emergency Provider Emergency Medicine; PCP Internal Medicine; Visit Provider Emergency Medicine
DX: K60.2 Anal fissure, unspecified (principal); Z93.3 Colostomy status; J44.9 Chronic obstructive pulmonary disease, unspecified; E10.9 Type 1 diabetes mellitus without complications; Z79.4 Long term (current) use of insulin; I10 Essential (primary) hypertension; K21.9 Gastro-esophageal reflux disease without esophagitis; E78.5 Hyperlipidemia, unspecified; E66.9 Obesity, unspecified; Z68.29 Body mass index [BMI] 29.0-29.9, adult; Z79.84 Long term (current) use of oral hypoglycemic drugs; Z79.899 Other long term (current) drug therapy; Z87.891 Personal history of nicotine dependence
CPT/HCPCS: 99283

== ENCOUNTER 2021-08-01 05:07 | Emergency (ER) | payer MEDICAID, SELFPAY ==
[2021-08-01 05:10] VITALS: BP 182/60; PULSE 74; RESP 16; TEMP 37.1; O2SAT 98; BMI 29.2
--- NOTE | 2021-08-01 05:29 | EX.ED.VIS.EY ---
HPI <Dr. Han Hooks MD - Last Filed: 08/01/21 07:09> History of Present Illness Chief Complaint: Eye Problem Informant: patient and spouse/S.O. Narrative Narrative: Patient's been having a little over 2 weeks of right eye symptoms. She states it is red. It itches reyes. Its been matting and crusting and having more discharge. She states the vision is getting progressively worse. She is to the point she cannot see much out of it. She also has been developing a headache. But she states it is all around the eye. She does have a history of migraines. She has not been having nausea and vomiting. She has been eating normally. She denies anything makes it better or worse. When I specifically asked if light bothers her, she states that it does. She denies any history of glaucoma. She does not wear contact lenses. She has not had any numbness tingling weakness or neurologic symptoms other than the visual loss. [facility] <Dr. Han Hooks MD - Last Filed: 08/01/21 07:09> [facility] Medical History Anxiety Anxiety and depression Asthma Bradycardia Colon cancer COPD (chronic obstructive pulmonary disease) Depression Diabetes Former smoker GERD (gastroesophageal reflux disease) Hyperlipidemia Hypertension Migraines Obesity (BMI 30.0-34.9) Paranoid schizophrenia Schizophrenia Secondary pulmonary arterial hypertension Tracheitis Type I diabetes mellitus Home Medications topiramate 100 mg PO BID 03/01/17 [History Last Taken 12/06/18 09:00] hydrocortisone 2.5 % topical cream 1 applic TOPICAL DAILY 30 Days #30 10/31/17 [History Last Taken Unknown] insulin glargine 100 unit/mL (3 mL) subcutaneous pen 12 unit SC QHS 10/31/17 [History Last Taken Unknown] thiothixene 2 mg capsule 2 mg PO DAILY 30 Days #30 10/31/17 [History Last Taken 12/04/17 05:30] trazodone 100 mg tablet 300 mg PO QHS 30 Days #90 10/31/17 [History Last Taken Unknown] glimepiride 4 mg tablet 4 mg PO DAILY 30 Days #30 11/01/17 [History Last Taken Unknown] amitriptyline 25 mg PO QHS 11/28/17 [History Last Taken Unknown] melatonin-pyridoxine (vit B6) [Melatonin 5 mg Tablet] 2 ea PO QHS 11/28/17 [History Last Taken Unknown] omeprazole 20 mg PO DAILY 12/04/17 [History Last Taken 12/06/18 09:00] cariprazine 3 mg PO QHS 12/04/18 [History Last Taken Unknown] fluphenazine HCl 1 mg PO QHS 12/04/18 [History Last Taken Unknown] guaifenesin 600 mg PO TID 12/04/18 [History Last Taken 12/06/18 09:00] pravastatin 40 mg PO DAILY 12/04/18 [History Last Taken Unknown] tapentadol 75 mg PO TID 12/04/18 [History Last Taken 12/06/18 09:00] magnesium oxide 400 mg PO DAILY 04/16/19 [History Last Taken Unknown] hydrocortisone 1 applic [place] QHS PRN #30 g 05/17/21 [Rx Last Taken Unknown] Allergy/AdvReac Type Severity Reaction Status Date / Time azithromycin Allergy Rash Verified 06/12/21 12:57 Cephalosporins Allergy Rash Verified 06/12/21 12:57 codeine Allergy Rash Verified 06/12/21 12:57 diclofenac [Diclofenac] Allergy Rash Verified 06/12/21 12:57 hydrocodone bitartrate Allergy Rash Verified 06/12/21 12:57 [From Vicodin] hydromorphone HCl Allergy Rash Verified 06/12/21 12:57 [From Dilaudid] Opioids - Morphine Analogues Allergy Rash Verified 06/12/21 12:57 Penicillins Allergy Anaphylaxis Verified 06/12/21 12:57 Sulfa (Sulfonamide Allergy Rash Verified 06/12/21 12:57 Antibiotics) cherries Allergy Angioedema Uncoded 06/12/21 12:57 philomena Allergy Angioedema Uncoded 06/12/21 12:57 pears AdvReac Unknown Uncoded 06/12/21 12:57 soap AdvReac Unknown Uncoded 06/12/21 12:57 Family History Father Heart disease Other Thyroid disorder Surgical History Colostomy in place History of appendectomy History of colectomy History of partial colectomy Presence of cardiac pacemaker (07/26/17) Tracheostomy in place Social History Smoking Status: Former smoker quit date: 08/27/10 pack-years: 45 substance use type: does not use ROS <Dr. Han Hooks MD - Last Filed: 08/01/21 07:09> ROS ED Constitutional Constitutional ED: Denies fever(s) or subjective Eyes Eyes: Reports blurry vision, change in vision and other Details: See history of present ; Denies diplopia ENT ENT ED: Denies ear pain, rhinorrhea or sore throat Cardiovascular Cardiovascular: Denies chest pain or palpitations Respiratory/Chest Respiratory/Chest: Denies cough or dyspnea Gastrointestinal Gastrointestinal: Denies nausea or vomiting Musculoskeletal Musculoskeletal: Denies arthralgias or neck pain Integumentary Denies rash Neurologic Neurologic: Reports headache(s); Denies paresthesias or weakness Psychiatric Psychiatric: Reports other Details: History of schizophrenia Endocrine Endocrinology: Denies polydipsia or polyuria Hematologic/Lymphatic Hematologic/Lymphatic: Denies easy bleeding or easy bruising Allergic/Immunologic Allergic/Immunologic ED: Denies urticaria EXAM <Dr. Han Hooks MD - Last Filed: 08/01/21 07:09> Physical Exam Const Vital Signs: 08/01/21 05:10 Temperature 98.7 F Temperature Source Oral Pulse Rate 74 Respiratory Rate 16 Blood Pressure 182/60 H Blood Pressure Mean 100 Pulse Ox 98 Oxygen Delivery Method Room Air Positive well nourished and well developed General Appearance ED: well developed and NAD HEENT HEENT Narrative: No facial rash. No notable temporal artery tenderness. atraumatic Eyes Eyes Narrative: Eyelids are not notably swollen. The eye obviously is injected on that side. She has crusting and matting and discharge in the eye. Range of motion is actually preserved. No pain with range of motion. No notable pain with light from ophthalmoscope. Neck supple Resp normal respiratory effort Cardio regular rate GI non-tender Palpation: soft Neuro Sensorium / Orientation: alert Psych Mood & Affect: Negative for depressed or tearful Skin Skin Narrative: No vesicles or facial rash Rashes: no rashes MDM <Dr. Han Hooks MD - Last Filed: 08/01/21 07:09> MDM MDM Narrative Medical decision making narrative: Slit-lamp exam shows a little haziness toward the lateral aspect of the cornea. We did do fluorescein staining that shows what appears to be a corneal ulcer over that area. Negative Rowena sign. We attempted to use the Toan-Pen. However, we are not able to get it to function. We went through its checks. We tried compressed clean air. We changed its batteries. We cannot get it to calibrate or to read at all. Patient has a visual acuity of 2070 OU. But she states she cannot see at all out of the right eye. We then find out she does also have a history of macular degeneration and has had this for years slowly worsening. However, she states her eyes are equally affected. She has had intraocular lens implants somewhere in the past but she cannot recall exactly when. Patient could see a motion and light out of her right eye. She could tell I had a hand in front of her but could not count or see distinct finger numbers. Therefore, I do believe she has significant reduction of vision. This is occurred over 2-week period. I discussed the case with Dr. Mars. I find out that the patient had actually called him this morning about 4:00 about coming in. She does have an appointment with them on Monday. He is going to come in and take a look at her. Disposition is pending that. <Dr. Lyndsey Josue MD - Last Filed: 08/01/21 09:42> [facility] Treatment and Re-Evaluation Narrative: Addendum: Patient signed out to me pending ophthalmology exam. Ophthalmology feels there is an eyelash that is embedded in the eye and that caused the ulcer. At this time he is unable to remove the eyelash. Patient has evidence of diffuse inflammation consistent with endophthalmitis. He spoke with the retina specialist in [place] who feels patient should probably be treated at [facility]. Lab work has been ordered and a dose of IV Levaquin has been ordered. I spoke with the transfer line at [facility] along with hospitalist and ophthalmology resident. Patient will be transferred to the ER for good eye exam and determination will be made at that time whether this can be treated inpatient or outpatient. Discharge Plan Triage Chief Complaint: Eye Problem ED Provider: Han Hooks Dx/Rx/DC Orders Clinical Impression: Corneal ulcer of right eye, Visual loss, right eye, Acute endophthalmitis Instructions: ED Corneal Ulcer Prescriptions: No Action glimepiride 4 mg tablet 4 mg PO DAILY 30 Days Qty: 30 RF: 0 hydrocortisone 2.5 % cream 1 applic TOPICAL DAILY 30 Days Qty: 30 RF: 0 thiothixene 2 mg capsule 2 mg PO DAILY 30 Days Qty: 30 RF: 0 trazodone 100 mg tablet 300 mg PO QHS 30 Days Qty: 90 RF: 0 insulin glargine [Lantus Solostar U-100 Insulin] 100 unit/mL (3 mL) insulin pen 12 unit SC QHS RF: 0 topiramate 100 mg tablet 100 mg PO BID RF: 0 melatonin-pyridoxine (vit B6) [Melatonin (with B6)] 1 EACH tablet 2 ea PO QHS RF: 0 amitriptyline 25 MG tablet 25 mg PO QHS RF: 0 omeprazole 20 MG capsule 20 mg PO DAILY RF: 0 pravastatin 40 MG tablet 40 mg PO DAILY RF: 0 fluphenazine HCl 1 MG tablet 1 mg PO QHS RF: 0 tapentadol 75 MG tablet 75 mg PO TID RF: 0 cariprazine 3 MG capsule 3 mg PO QHS RF: 0 guaifenesin 600 MG tablet extended release 12hr 600 mg PO TID RF: 0 magnesium oxide 400 MG tablet 400 mg PO DAILY RF: 0 hydrocortisone 2.5 % cream with perineal applicator 1 applic [place] QHS PRN (Reason: hemorrhoids) Qty: 30 RF: 0 Primary Care Provider: Vivian Meyer Referrals: Vivian Meyer MD [Primary Care Provider] - Cristopher Mars MD [STAFF PHYSICIAN] - [facility] appointment Disposition Disposition: Acute Care Hospital Discharge Location: [facility]
[2021-08-01] MEDS: Tetracaine 0.5% Ophthalmic Bottle OPHTHALMIC (06:15)
[2021-08-01] MEDS: Fluorescein 1 MG STRIP 1 STRIP OPHTHALMIC (06:16)
[2021-08-01] MEDS: Acetaminophen 325 MG Tablet 650 MG PO (07:09)
--- NOTE | 2021-08-01 08:26 | ED.RN ---
pt aware dr ellis is making calls to [place] to see if pt needs to go there to have the eye lash removed emergently. Pt and very anxious to get out of here. Both pt and have been told multiple times what they are waiting on
--- NOTE | 2021-08-01 08:47 | NURSING ---
CALLED [facility] TRANSFER LINE, TALKED TO MONICA. FAXED FACESHEET
--- NOTE | 2021-08-01 09:47 | NURSING ---
CALLED [facility], ETA IS WITHIN THE HOUR
[2021-08-01 09:50] LABS: Erythrocyte Sedimentation Rate 72 mm/hr (0-30)
[2021-08-01 09:51] LABS: Absolute Lymphocyte Count 0.96 X10^3/uL (0.83-4.51); Absolute Neutrophil Count 7.4 X10^3/uL (2.0-7.7); Basophil# 0.02 X10^3/uL; Basophil% 0.2 % (0-1); Eosinophil# 0.05 X10^3/uL; Eosinophils% 0.6 % (0-5); Hematocrit 32.4 % (37-47); Hemoglobin 9.6 g/dL (12.0-15.0); Lymphocyte # 0.96 X10^3/ul (0.83-4.51); Lymphocyte % 10.8 % (19-41); Mean Corp Hgb Conc 29.6 g/dL (32-36); Mean Corpuscular Hgb 26.7 pg (27.0-32.0); Mean Corpuscular Volume 90.3 fL (81-99); Mean Platelet Vol. 9.3 fl (6.2-12.0); Monocyte# 0.37 X10^3/uL; Monocyte% 4.2 % (0-10); NRBC Flagged by Analyzer 0 % (0-5); Neutrophil # 7.43 X10^3/uL (2.7-7.7); Platelet Count 245 K/mm3 (150-450); RBC Distribution Width SD 53.2 fl (35.1-43.9); Red Blood Count 3.59 M/mm3 (4.2-5.4); White Blood Count 8.9 K/mm3 (4.4-11.0)
[2021-08-01] MEDS: levoFLOXacin IV 500 MG/100 ML BAG 100 MG IV (09:51)
[2021-08-01 09:55] VITALS: BP 148/56; PULSE 75; RESP 18; TEMP 36.4; O2SAT 95
[2021-08-01 10:03] LABS: Anion Gap 6 (5-15); BUN 11 mg/dL (7-18); BUN/Creat Ratio 10.3 RATIO (10-20); Calcium,Total 8.6 mg/dL (8.5-10.1); Chloride 108 mmol/L (98-107); Creatinine, Serum 1.07 mg/dL (0.55-1.02); EST Glomerular Filtration Rate 55 mL/min (>60); Est Glom Filt Rate - Afr Amer 67 mL/min (>60); Estimated Creatinine Clearance 51.03 ml/min; Glucose 305 mg/dL (74-106); Potassium 3.9 mmol/L (3.5-5.1); Sodium Level 138 mmol/L (136-145)
--- NOTE | 2021-08-01 10:28 | ED.RN ---
attempted to call report on pt. phone busy
[2021-08-01 10:38] VITALS: BP 146/47; PULSE 78; RESP 16; O2SAT 95
== END 2021-08-01 11:21 | disposition short-term general hospital (02) ==
PROVIDERS: Emergency Medicine; Emergency Provider Emergency Medicine; PCP Internal Medicine; Visit Provider Emergency Medicine
DX: H16.001 Unspecified corneal ulcer, right eye (principal); Z93.0 Tracheostomy status; F20.9 Schizophrenia, unspecified; J44.9 Chronic obstructive pulmonary disease, unspecified; E10.9 Type 1 diabetes mellitus without complications; Z79.4 Long term (current) use of insulin; H44.001 Unspecified purulent endophthalmitis, right eye; H35.30 Unspecified macular degeneration; X58.XXXA Exposure to other specified factors, initial encounter; I10 Essential (primary) hypertension; E78.5 Hyperlipidemia, unspecified; E66.9 Obesity, unspecified; K21.9 Gastro-esophageal reflux disease without esophagitis; F32.A Depression, unspecified; F41.9 Anxiety disorder, unspecified; Z68.29 Body mass index [BMI] 29.0-29.9, adult; Z79.84 Long term (current) use of oral hypoglycemic drugs; Z79.899 Other long term (current) drug therapy; Z87.891 Personal history of nicotine dependence
CPT/HCPCS: 80048; 85025; 85652; 86140; 96365; 99285; J7050; A4216

== ENCOUNTER 2021-08-08 19:31 | Emergency (ER) | payer MEDICAID, SELFPAY ==
--- NOTE | 2021-08-08 19:34 | ED.RN ---
AND WANTED TO BE NEAR EACH OTHER AND WAS UNABLE SO LEFT WITHOUT BEING SEEN.
== END 2021-08-08 19:52 | disposition left against medical advice (07) ==
LOC: ED 19:40
PROVIDERS: PCP Internal Medicine
DX: J02.9 Acute pharyngitis, unspecified (principal); Z53.21 Procedure and treatment not carried out due to patient leaving prior to being seen by health care provider

== ENCOUNTER 2021-10-26 02:49 | Emergency (ER) | payer MEDICAID, SELFPAY ==
[2021-10-26 02:49] VITALS: BP 153/89; PULSE 85; RESP 16; TEMP 36.6; O2SAT 96; BMI 28.2
--- NOTE | 2021-10-26 03:38 | EDS_ITS ---
HPI History of Present Illness Chief Complaint: Other, Pain/Inj Informant: patient Onset/Context/Timing Onset: Weeks (2) Context: Gradual Onset Timing: Continuous Quality: Sharp Location: Generalized Worsened by: Nothing Relieved by: Nothing Narrative Narrative: Patient presents with flareup of her chronic fibromyalgia pain that has been constant for the past 2 weeks. Patient states she saw her pain management physician earlier today but she was unable to get her pain medication refilled because it requires a prior authorization. Patient states her pain is generalized. Patient states it is sharp. Patient states nothing makes it worse. Patient states nothing makes it better. Patient states it is constant. [facility] Medical History Anxiety Anxiety and depression Asthma Bradycardia Colon cancer COPD (chronic obstructive pulmonary disease) Depression Diabetes Former smoker GERD (gastroesophageal reflux disease) Hyperlipidemia Hypertension Migraines Obesity (BMI 30.0-34.9) Paranoid schizophrenia Schizophrenia Secondary pulmonary arterial hypertension Tracheitis Type I diabetes mellitus Home Medications topiramate 100 mg tablet 100 mg PO BID 03/01/17 [History Last Taken 12/06/18 09:00] hydrocortisone 2.5 % topical cream 1 applic topical DAILY 30 days ##30 10/31/17 [History Last Taken Unknown] insulin glargine 100 unit/mL (3 mL) subcutaneous pen (Lantus Solostar U-100 Insulin) 12 unit subcut QHS 10/31/17 [History Last Taken Unknown] thiothixene 2 mg capsule 2 mg PO DAILY 30 days ##30 10/31/17 [History Last Taken 12/04/17 05:30] trazodone 100 mg tablet 300 mg PO QHS 30 days ##90 10/31/17 [History Last Taken Unknown] glimepiride 4 mg tablet 4 mg PO DAILY 30 days ##30 11/01/17 [History Last Taken Unknown] amitriptyline 25 mg tablet 25 mg PO QHS 11/28/17 [History Last Taken Unknown] melatonin 5 mg-pyridoxine (vitamin B6) 1 mg tablet (Melatonin (with B6)) 2 ea PO QHS 11/28/17 [History Last Taken Unknown] omeprazole 20 mg capsule,delayed release 20 mg PO DAILY 12/04/17 [History Last Taken 12/06/18 09:00] cariprazine 3 mg capsule 3 mg PO QHS mental status 12/04/18 [History Last Taken Unknown] fluphenazine HCl 1 mg tablet 1 mg PO QHS 12/04/18 [History Last Taken Unknown] guaifenesin 600 mg tablet, extended release 12 hr 600 mg PO TID 12/04/18 [History Last Taken 12/06/18 09:00] pravastatin 40 mg tablet 40 mg PO DAILY 12/04/18 [History Last Taken Unknown] tapentadol 75 mg tablet 75 mg PO TID pain 12/04/18 [History Last Taken 12/06/18 09:00] magnesium oxide 400 mg (241.3 mg magnesium) tablet 400 mg PO DAILY 04/16/19 [History Last Taken Unknown] hydrocortisone 2.5 % topical cream with perineal applicator 1 applic [place] QHS PRN hemorrhoids #30 grams 05/17/21 [Rx Last Taken Unknown] Allergy/AdvReac Type Severity Reaction Status Date / Time azithromycin Allergy Rash Verified 06/12/21 12:57 Cephalosporins Allergy Rash Verified 06/12/21 12:57 codeine Allergy Rash Verified 06/12/21 12:57 diclofenac [Diclofenac] Allergy Rash Verified 06/12/21 12:57 hydrocodone bitartrate Allergy Rash Verified 06/12/21 12:57 [From Vicodin] hydromorphone HCl Allergy Rash Verified 06/12/21 12:57 [From Dilaudid] Opioids - Morphine Analogues Allergy Rash Verified 06/12/21 12:57 Penicillins Allergy Anaphylaxis Verified 06/12/21 12:57 Sulfa (Sulfonamide Allergy Rash Verified 06/12/21 12:57 Antibiotics) cherries Allergy Angioedema Uncoded 06/12/21 12:57 philomena Allergy Angioedema Uncoded 06/12/21 12:57 pears AdvReac Unknown Uncoded 06/12/21 12:57 soap AdvReac Unknown Uncoded 06/12/21 12:57 Family History Father Heart disease Other Thyroid disorder Surgical History Colostomy in place History of appendectomy History of colectomy History of partial colectomy Presence of cardiac pacemaker (09/28/16) Tracheostomy in place Social History Smoking Status: Former smoker quit date: 08/27/10 pack-years: 45 substance use type: does not use ROS ROS ED Constitutional Constitutional ED: Denies chills or fever(s) Eyes Eyes: Denies blurry vision or change in vision ENT ENT ED: Reports rhinorrhea; Denies sore throat Cardiovascular Cardiovascular: Denies chest pain or palpitations Respiratory/Chest Respiratory/Chest: Denies cough or dyspnea Gastrointestinal Gastrointestinal: Denies nausea or vomiting Genitourinary Genitourinary ED: Denies dysuria or hematuria Musculoskeletal Musculoskeletal: Reports back pain and myalgias Integumentary Denies abscess or rash Neurologic Neurologic: Denies headache(s) or weakness Allergic/Immunologic Allergic/Immunologic ED: Denies mouth swelling or urticaria EXAM Physical Exam Const Vital Signs: 10/26/21 02:49 Temperature 97.8 F Temperature Source Temporal Pulse Rate 85 Respiratory Rate 16 Blood Pressure 153/89 H Blood Pressure Mean 110 Pulse Ox 96 Oxygen Delivery Method Room Air Positive well nourished and well developed General Appearance ED: well developed and NAD HEENT Reports moist mucous membranes Neck supple and no JVD Resp normal respiratory effort and clear to auscultation bilaterally Cardio regular rate, regular rhythm and no murmurs GI normal to inspection, nondistended, normoactive bowel sounds and non-tender Palpation: soft Extremity normal to inspection General Extremety ED: Negative for edema General Extremity: Negative for edema Neuro oriented x3, CN's II-XII intact bilaterally and no sensory deficits noted Sensorium / Orientation: alert Motor Exam: strength 5/5 throughout Psych mental status grossly normal Skin no rashes or lesions noted MDM MDM MDM Narrative Medical decision making narrative: Patient was given an injection of fentanyl here. Patient was instructed to follow-up with her pain management physician for further management of her chronic pain. Patient understood and was agreeable with the plan. All questions were answered. Discharge Plan Triage Chief Complaint: Other, Pain/Inj ED Provider: Joseph Ramesh Dx/Rx/DC Orders Clinical Impression: Chronic pain, History of fibromyalgia Instructions: ED Chronic Pain, ED Pain Management: Chronic Prescriptions: No Action glimepiride 4 mg tablet 4 mg PO DAILY 30 Days Qty: 30 Label Comments: hydrocortisone 2.5 % cream 1 applic TOPICAL DAILY 30 Days Qty: 30 Label Comments: thiothixene 2 mg capsule 2 mg PO DAILY 30 Days Qty: 30 Label Comments: trazodone 100 mg tablet 300 mg PO QHS 30 Days Qty: 90 Label Comments: insulin glargine [Lantus Solostar U-100 Insulin] 100 unit/mL (3 mL) insulin pen 12 unit SC QHS topiramate 100 mg tablet 100 mg PO BID Label Comments: 1 tablet every morning melatonin-pyridoxine (vit B6) [Melatonin (with B6)] 1 EACH tablet 2 ea PO QHS amitriptyline 25 MG tablet 25 mg PO QHS omeprazole 20 MG capsule 20 mg PO DAILY pravastatin 40 MG tablet 40 mg PO DAILY fluphenazine HCl 1 MG tablet 1 mg PO QHS tapentadol 75 MG tablet 75 mg PO TID cariprazine 3 MG capsule 3 mg PO QHS guaifenesin 600 MG tablet extended release 12hr 600 mg PO TID magnesium oxide 400 MG tablet 400 mg PO DAILY Label Comments: TAKE 1 TABLET BY MOUTH EVERY DAY hydrocortisone 2.5 % cream with perineal applicator 1 applic [place] QHS PRN (Reason: hemorrhoids) Qty: 30 0RF Primary Care Provider: Vivian Meyer Referrals: Bethanie Trevizo MD [Med Staff - Active Staff] - As soon as possible Vivian Meyer MD [Primary Care Provider] - 3-5 Days Disposition Disposition: Home, Self Care
[2021-10-26] MEDS: fentaNYL 100 MCG/2 ML Ampul 25 MCG IM (03:46)
[2021-10-26 04:09] VITALS: RESP 18
== END 2021-10-26 04:10 | disposition home or self-care (01) ==
PROVIDERS: Emergency Provider Emergency Medicine; PCP Internal Medicine; Visit Provider Emergency Medicine
DX: M79.7 Fibromyalgia (principal); J44.9 Chronic obstructive pulmonary disease, unspecified; E10.9 Type 1 diabetes mellitus without complications; Z79.4 Long term (current) use of insulin; G89.29 Other chronic pain; I10 Essential (primary) hypertension; E78.5 Hyperlipidemia, unspecified; Z79.84 Long term (current) use of oral hypoglycemic drugs; Z79.899 Other long term (current) drug therapy; Z87.891 Personal history of nicotine dependence
CPT/HCPCS: 96372; 99282

== ENCOUNTER → 2021-11-18 | Outpatient (CLI) | payer MEDICAID, SELFPAY ==
[2021-11-18 15:54] LABS: Amphetamine Urine VISTA NEGATIVE (<1000 ng/mL); Barbiturate Urine VISTA NEGATIVE (< 200 ng/mL); Benzodiazepine Urine VISTA NEGATIVE (< 200 ng/mL); Cocaine Urine VISTA NEGATIVE (< 300 ng/mL); Ecstacy Urine VISTA NEGATIVE (< 500 ng/mL); Methadone Urine VISTA NEGATIVE (< 300 ng/mL); PCP Urine VISTA NEGATIVE (< 25 ng/mL); THC Urine VISTA NEGATIVE (< 50 ng/mL); Vista UDS pH Range 5
== END | disposition home or self-care (01) ==
PROVIDERS: PCP Internal Medicine; Referring Provider Anesthesiology Pain Medicine; Visit Provider Anesthesiology Pain Medicine
DX: F11.20 Opioid dependence, uncomplicated (principal)
CPT/HCPCS: 80307

== ENCOUNTER 2022-03-02 17:16 | Emergency (ER) | payer MEDICAID, SELFPAY ==
[2022-03-02 17:17] VITALS: BP 132/56; PULSE 68; RESP 16; TEMP 36.4; O2SAT 98; BMI 30.4
--- NOTE | 2022-03-02 17:21 | RAD_ITS ---
STUDY: X-RAY - LEFT HAND REASON FOR EXAM: Female, 61 years old. Pain in left hand beginning when she woke up. TECHNIQUE: 3 view(s) of the hand. COMPARISON: None. FINDINGS: There is mild joint space narrowing of the radiocarpal articulation consistent with degenerative arthrosis. Normal distal radioulnar joint. Small cyst within the body of the scaphoid. Otherwise normal visualized carpal bones. Normal carpal articulations There is minimal degenerative arthrosis of the carpometacarpal (CMC) articulation of the thumb. Normal second through fifth carpometacarpal joints. Normal metacarpi. Normal metacarpophalangeal joint of the thumb. Normal interphalangeal joint of the thumb. Normal proximal and distal phalanges of the thumb. Normal metacarpophalangeal joints of the second through fifth fingers. Normal proximal and distal interphalangeal joints of the second through fifth fingers. Normal phalanges of the second through fifth fingers. The soft tissue structures are unremarkable. RAD/Hand Min 3 Views IMPRESSION: Minimal arthrosis of the wrist. There is no acute abnormality. Electronically Signed: Kings Rivas DO at 18:04 EST ,
--- NOTE | 2022-03-02 19:14 | EDS_ITS ---
HPI History of Present Illness HPI Narrative: Patient presents with left wrist pain that began 3 days ago. Patient states she woke up and had pain in her left wrist. Patient denies any trauma or injury. Patient denies any fevers or chills. Patient denies any paresthesias or weakness. Patient describes her pain as sharp. Patient states it is worse with certain movements. Patient states the pain radiates up her arm. Patient states nothing seems to help with the pain. Chief Complaint: Upper Extremity Injury Informant: patient Onset/Context/Timing Onset: Days (3) Context: Sudden Onset Timing: Continuous Quality of Pain: Sharp Location: Left wrist Worsened by: Movement Relieved by: Rest Associated Symptoms Associated Symptoms: Negative for Parasthesia, Weakness or Loss of Funtion PFSH [facility] Medical History Anxiety Anxiety and depression Asthma Bradycardia Colon cancer COPD (chronic obstructive pulmonary disease) Depression Diabetes Former smoker GERD (gastroesophageal reflux disease) Hyperlipidemia Hypertension Migraines Obesity (BMI 30.0-34.9) Paranoid schizophrenia Schizophrenia Secondary pulmonary arterial hypertension Tracheitis Type I diabetes mellitus Home Medications topiramate 100 mg tablet 100 mg PO BID 03/01/17 [History Last Taken 12/06/18 09:00] hydrocortisone 2.5 % topical cream 1 applic topical DAILY 30 days ##30 10/31/17 [History Last Taken Unknown] insulin glargine 100 unit/mL (3 mL) subcutaneous pen (Lantus Solostar U-100 Insulin) 12 unit subcut QHS 10/31/17 [History Last Taken Unknown] thiothixene 2 mg capsule 2 mg PO DAILY 30 days ##30 10/31/17 [History Last Taken 12/04/17 05:30] trazodone 100 mg tablet 300 mg PO QHS 30 days ##90 10/31/17 [History Last Taken Unknown] glimepiride 4 mg tablet 4 mg PO DAILY 30 days ##30 11/01/17 [History Last Taken Unknown] amitriptyline 25 mg tablet 25 mg PO QHS 11/28/17 [History Last Taken Unknown] melatonin 5 mg-pyridoxine (vitamin B6) 1 mg tablet (Melatonin (with B6)) 2 ea PO QHS 11/28/17 [History Last Taken Unknown] omeprazole 20 mg capsule,delayed release 20 mg PO DAILY 12/04/17 [History Last Taken 12/06/18 09:00] cariprazine 3 mg capsule 3 mg PO QHS mental status 12/04/18 [History Last Taken Unknown] fluphenazine HCl 1 mg tablet 1 mg PO QHS 12/04/18 [History Last Taken Unknown] guaifenesin 600 mg tablet, extended release 12 hr 600 mg PO TID 12/04/18 [History Last Taken 12/06/18 09:00] pravastatin 40 mg tablet 40 mg PO DAILY 12/04/18 [History Last Taken Unknown] tapentadol 75 mg tablet 75 mg PO TID pain 12/04/18 [History Last Taken 12/06/18 09:00] magnesium oxide 400 mg (241.3 mg magnesium) tablet 400 mg PO DAILY 04/16/19 [History Last Taken Unknown] hydrocortisone 2.5 % topical cream with perineal applicator 1 applic ID QHS PRN hemorrhoids #30 grams 05/17/21 [Rx Last Taken Unknown] Allergy/AdvReac Type Severity Reaction Status Date / Time azithromycin Allergy Rash Verified 03/02/22 17:20 Cephalosporins Allergy Rash Verified 03/02/22 17:20 mahoney [cherries] Allergy Angioedema Verified 03/02/22 17:20 codeine Allergy Rash Verified 03/02/22 17:20 diclofenac [Diclofenac] Allergy Rash Verified 03/02/22 17:20 hydrocodone bitartrate Allergy Rash Verified 03/02/22 17:20 [From Vicodin] hydromorphone HCl Allergy Rash Verified 03/02/22 17:20 [From Dilaudid] lemon Allergy Angioedema Verified 03/02/22 17:20 Opioids - Morphine Analogues Allergy Rash Verified 03/02/22 17:20 Penicillins Allergy Anaphylaxis Verified 03/02/22 17:20 Sulfa (Sulfonamide Allergy Rash Verified 03/02/22 17:20 Antibiotics) pear AdvReac NEEDS Verified 03/02/22 17:20 FOLLOW-UP soap AdvReac NEEDS Verified 03/02/22 17:20 FOLLOW-UP Family History Father Heart disease Other Thyroid disorder Surgical History Colostomy in place History of appendectomy History of colectomy History of partial colectomy Presence of cardiac pacemaker (09/28/16) Tracheostomy in place Social History Smoking Status: Former smoker quit date: 08/27/10 pack-years: 45 substance use type: does not use ROS ROS ED Constitutional Constitutional ED: Denies chills or fever(s) Eyes Eyes: Denies blurry vision or change in vision ENT ENT ED: Denies rhinorrhea or sore throat Cardiovascular Cardiovascular: Denies chest pain or palpitations Respiratory/Chest Respiratory/Chest: Reports cough; Denies dyspnea Gastrointestinal Gastrointestinal: Denies nausea or vomiting Genitourinary Genitourinary ED: Denies dysuria or hematuria Musculoskeletal Musculoskeletal: Denies back pain or neck pain Integumentary Denies abscess or rash Neurologic Neurologic: Denies headache(s) or weakness Allergic/Immunologic Allergic/Immunologic ED: Denies mouth swelling or urticaria EXAM Physical Exam Const Vital Signs: 03/02/22 17:17 Temperature 97.6 F L Temperature Source Temporal Pulse Rate 68 Respiratory Rate 16 Blood Pressure 132/56 H Blood Pressure Mean 81 Pulse Ox 98 Oxygen Delivery Method Room Air Positive well nourished, well developed and obese General Appearance ED: well developed and NAD Nutritional Appearance: obese HEENT Reports moist mucous membranes Extremity Extremity Narrative: There is diffuse tenderness over the left wrist. There is some mild edema. There is no ecchymosis. There is no bony crepitance or step-off. There is no deformity noted. Range of motion was limited in all motions of the left wrist secondary to pain. There is a positive Catarino's test. Radial pulses are equal bilaterally. Sensation was intact to light touch in the radial, median, and ulnar areas. Strength is 5/5 in the radial, median, and ulnar areas. Neuro oriented x3, CN's II-XII intact bilaterally, moves all extremities, no focal motor deficits and no sensory deficits noted Sensorium / Orientation: alert Motor Exam: strength 5/5 throughout MDM MDM MDM Narrative Medical decision making narrative: X-rays of the left hand were obtained. There are 3 views. On my interpretation, there is no acute fracture. There is no dislocation. There is no soft tissue swelling. Radiologist also interpreted the x-rays and agrees. Patient was given a thumb spica splint. Patient was instructed to ice and elevate the left wrist. Patient was instructed to take Tylenol or ibuprofen as needed for any pain. Patient was instructed to follow-up with her primary care physician in 5 to 7 days. Patient understood and was agreeable with the plan. All questions were answered. Radiography Diagnostic Testing: Clinical Impression(s) from Imaging Studies Hand X-Ray 03/02/22 17:21 IMPRESSION: Minimal arthrosis of the wrist. There is no acute abnormality. Electronically Signed: Kings Rivas DO at 18:04 EST Reading Location ID and State: [address] [place] [address] Tel [phone], Service support , Discharge Plan Triage Chief Complaint: Upper Extremity Injury ED Provider: Joseph Ramesh Dx/Rx/DC Orders Clinical Impression: Left wrist tendinitis, Hypertension, Obesity (BMI 30.0-34.9) Instructions: ED Tendonitis Prescriptions: No Action glimepiride 4 mg tablet 4 mg PO DAILY 30 Days Qty: 30 Label Comments: hydrocortisone 2.5 % cream 1 applic TOPICAL DAILY 30 Days Qty: 30 Label Comments: thiothixene 2 mg capsule 2 mg PO DAILY 30 Days Qty: 30 Label Comments: trazodone 100 mg tablet 300 mg PO QHS 30 Days Qty: 90 Label Comments: insulin glargine [Lantus Solostar U-100 Insulin] 100 unit/mL (3 mL) insulin pen 12 unit SC QHS topiramate 100 mg tablet 100 mg PO BID Label Comments: 1 tablet every morning melatonin-pyridoxine (vit B6) [Melatonin (with B6)] 1 EACH tablet 2 ea PO QHS amitriptyline 25 MG tablet 25 mg PO QHS omeprazole 20 MG capsule 20 mg PO DAILY pravastatin 40 MG tablet 40 mg PO DAILY fluphenazine HCl 1 MG tablet 1 mg PO QHS tapentadol 75 MG tablet 75 mg PO TID cariprazine 3 MG capsule 3 mg PO QHS guaifenesin 600 MG tablet extended release 12hr 600 mg PO TID magnesium oxide 400 MG tablet 400 mg PO DAILY Label Comments: TAKE 1 TABLET BY MOUTH EVERY DAY hydrocortisone 2.5 % cream with perineal applicator 1 applic ID QHS PRN (Reason: hemorrhoids) Qty: 30 0RF Primary Care Provider: Vivian Meyer Referrals: Vivian Meyer MD [Primary Care Provider] - 5-7 Days Disposition Disposition: Home, Self Care
== END 2022-03-02 19:30 | disposition home or self-care (01) ==
PROVIDERS: Emergency Provider Emergency Medicine; PCP Internal Medicine; Visit Provider Emergency Medicine
DX: M77.9 Enthesopathy, unspecified (principal); I10 Essential (primary) hypertension; E66.9 Obesity, unspecified; Z95.0 Presence of cardiac pacemaker; Z87.891 Personal history of nicotine dependence
CPT/HCPCS: 73130; 99283

== ENCOUNTER 2022-06-01 15:49 | Emergency (ER) | payer MEDICAID, SELFPAY ==
[2022-06-01 15:50] VITALS: BP 159/71; PULSE 99; RESP 18; TEMP 36.6; O2SAT 77; BMI 33.4
--- NOTE | 2022-06-01 16:40 | EDS_ITS ---
HPI History of Present Illness Chief Complaint: Other, Pain/Inj Detail of Chief Complaint: Pain preventing me from sleeping and I need fentanyl Informant: patient, spouse/S.O. and other (Spoke with Dr. Paz since she just left his office.) Onset/Context/Timing Onset: Days (4 days) Context: Sudden Onset Timing: Continuous Quality: Patient states he has not slept in 4 days because of pain. Location: Generalized total body Current Severity: Severe Maximum Severity: Severe Worsened by: Nothing specific Relieved by: Nothing Associated Symptoms Associated Symptoms: Change in appetite as well as sleep. There is a difference regarding may Narrative Narrative: Patient is a 61-year-old woman. She has history of fibromyalgia, secondary pulmonary hypertension, type 1 diabetes, hyperlipidemia and hypertension who presented from Dr. Trevizo's office requesting fentanyl because she has not slept for the past 4 days. I informed the patient that fentanyl is not used for sleep.. The states she has received fentanyl in the past when she is come to the emergency department. I question if she was given fentanyl for sleep and his response was she has received fentanyl last time she was here. I informed patient and her that fentanyl is not used for sleep and that she would not receive fentanyl. His response was that does not seem to be fair . I informed it is a pain medicine. And the patient informing that she is not sleeping because she is in pain. I informed her that is why she sees Dr. Feldman and was this addressed with Dr. Feldman since she came from his office. Their response was no. Patient denies depression. Patient denies being sad. She states there has been a change in her appetite. She states she is not eating. states she eats everything. They both agree that she is not sleeping. They both states she has not slept in 4 days. Patient has no constitutional, ocular, visual, auditory, cardiac, respiratory, GI or neurologic symptoms. Since they presented from Dr. Paz's office he was contacted. He informed me that did ask unusual questions during her office visit. He does see her for chronic pain. Prior similar symptoms: Yes Recent Illness/Hospitalization: No [facility] Medical History Anxiety Anxiety and depression Asthma Bradycardia Colon cancer COPD (chronic obstructive pulmonary disease) Depression Diabetes Former smoker GERD (gastroesophageal reflux disease) Hyperlipidemia Hypertension Migraines Obesity (BMI 30.0-34.9) Paranoid schizophrenia Schizophrenia Secondary pulmonary arterial hypertension Tracheitis Type I diabetes mellitus Home Medications topiramate 100 mg tablet 100 mg PO BID 03/01/17 [History Last Taken 12/06/18 09 :00] hydrocortisone 2.5 % topical cream 1 applic topical DAILY 30 days ##30 10/31/17 [History Last Taken Unknown] insulin glargine 100 unit/mL (3 mL) subcutaneous pen (Lantus Solostar U-100 Insulin) 12 unit subcut QHS 10/31/17 [History Last Taken Unknown] thiothixene 2 mg capsule 2 mg PO DAILY 30 days ##30 10/31/17 [History Last Taken 12/04/17 05:30] trazodone 100 mg tablet 300 mg PO QHS 30 days ##90 10/31/17 [History Last Taken Unknown] glimepiride 4 mg tablet 4 mg PO DAILY 30 days ##30 11/01/17 [History Last Taken Unknown] amitriptyline 25 mg tablet 25 mg PO QHS 11/28/17 [History Last Taken Unknown] melatonin 5 mg-pyridoxine (vitamin B6) 1 mg tablet (Melatonin (with B6)) 2 ea PO QHS 11/28/17 [History Last Taken Unknown] omeprazole 20 mg capsule,delayed release 20 mg PO DAILY 12/04/17 [History Last Taken 12/06/18 09:00] cariprazine 3 mg capsule 3 mg PO QHS mental status 12/04/18 [History Last Taken Unknown] fluphenazine HCl 1 mg tablet 1 mg PO QHS 12/04/18 [History Last Taken Unknown] guaifenesin 600 mg tablet, extended release 12 hr 600 mg PO TID 12/04/18 [History Last Taken 12/06/18 09:00] pravastatin 40 mg tablet 40 mg PO DAILY 12/04/18 [History Last Taken Unknown] tapentadol 75 mg tablet 75 mg PO TID pain 12/04/18 [History Last Taken 12/06/18 09:00] magnesium oxide 400 mg (241.3 mg magnesium) tablet 400 mg PO DAILY 04/16/19 [History Last Taken Unknown] hydrocortisone 2.5 % topical cream with perineal applicator 1 applic [place] QHS PRN hemorrhoids #30 grams 05/17/21 [Rx Last Taken Unknown] Allergy/AdvReac Type Severity Reaction Status Date / Time azithromycin Allergy Rash Verified 06/01/22 15:53 Cephalosporins Allergy Rash Verified 06/01/22 15:53 mahoney [cherries] Allergy Angioedema Verified 06/01/22 15:53 codeine Allergy Rash Verified 06/01/22 15:53 diclofenac [Diclofenac] Allergy Rash Verified 06/01/22 15:53 hydrocodone bitartrate Allergy Rash Verified 06/01/22 15:53 [From Vicodin] hydromorphone HCl Allergy Rash Verified 06/01/22 15:53 [From Dilaudid] lemon Allergy Angioedema Verified 06/01/22 15:53 Penicillins Allergy Anaphylaxis Verified 06/01/22 15:53 Sulfa (Sulfonamide Allergy Rash Verified 06/01/22 15:53 Antibiotics) pear AdvReac NEEDS Verified 06/01/22 15:53 FOLLOW-UP soap AdvReac NEEDS Verified 06/01/22 15:53 FOLLOW-UP Family History Father Heart disease Other Thyroid disorder Surgical History Colostomy in place History of appendectomy History of colectomy History of partial colectomy Presence of cardiac pacemaker (09/28/16) Tracheostomy in place Social History (Updated 06/01/22 @ 16:[address] Jas Nunez MD) household members: spouse Smoking Status: Former smoker quit date: 08/27/10 pack-years: 45 substance use type: does not use and marijuana ROS ROS ED Constitutional Constitutional ED: Denies chills, fever(s), subjective or sweats Eyes Eyes: Denies blurry vision, change in vision or diplopia ENT ENT ED: Denies ear pain, rhinorrhea or sore throat Cardiovascular Cardiovascular: Denies chest pain or palpitations Respiratory/Chest Respiratory/Chest: Denies cough, dyspnea or dyspnea on exertion Gastrointestinal Gastrointestinal: Denies abdominal pain, nausea or vomiting Genitourinary Genitourinary ED: Denies dysuria, hematuria or urinary frequency Musculoskeletal Musculoskeletal: Denies arthralgias, back pain, myalgias or neck pain Integumentary Reports rash; Denies Abrasions Neurologic Neurologic: Denies headache(s), paresthesias or weakness Psychiatric Psychiatric: Denies anxiety or depression Endocrine Endocrinology: Reports cold intolerance and heat intolerance Hematologic/Lymphatic Hematologic/Lymphatic: Reports systems reviewed and no addt'l complaints, except as documented EXAM Physical Exam Const Vital Signs: 06/01/22 15:50 06/01/22 16:30 Temperature 98 F Temperature Source Temporal Pulse Rate 99 Respiratory Rate 18 Respiratory Effort Normal Respiratory Pattern Normal Blood Pressure 159/71 H Blood Pressure Mean 100 Pulse Ox 77 Oxygen Delivery Method Room Air Positive well nourished, well developed, obese and unkempt General Appearance ED: unkempt, well developed and NAD; Negative for cyanotic or diaphoretic Nutritional Appearance: obese HEENT Reports moist mucous membranes HEENT Narrative: Atraumatic normocephalic. Ears normal. Posterior pharynx normal. Eyes PERRL and EOMs intact bilaterally Neck no lymphadenopathy, supple and no JVD Chest Wall inspection of chest normal and palpation of chest normal Resp normal respiratory effort and clear to auscultation bilaterally Cardio regular rate, regular rhythm, S1 normal heart sound, S2 normal heart sound and no murmurs GI normal to inspection, nondistended, normoactive bowel sounds Extremity normal to inspection Neuro oriented x3, CN's II-XII intact bilaterally and no sensory deficits noted Sensorium / Orientation: alert Psych Appearance: unkempt Mood & Affect: depressed Skin Skin Narrative: There is a correlation. 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 MDM MDM MDM Narrative Medical decision making narrative: We will assess if patient has hypothyroidism. Suspect patient's chronic pain is related to affective disorder, depression. History & Record Review Discussion w/independent historian: Patient Additional record(s) reviewed:: Prior ED visit and Prior labs Lab Data Attestation: I reviewed the patient's lab results. Lab results narrative: CBC is unremarkable. Basic metabolic panel is marked for sodium of 131. Potassium is 5.9. Creatinine is 1.09. With a GFR of 54. Glucose is elevated 243 with a CO2 and anion gap. Comment noted regarding elevated potassium. There was moderate hemolysis. Therefore no further testing is warranted. TSH is normal. Labs: Laboratory Results - last 24 hr 06/01/22 06/01/22 16:30 16:30 WBC 7.4 RBC 4.58 Hgb 12.6 Hct 43.1 MCV 94.1 MCH 27.5 MCHC 29.2 L RDW Std Deviation 47.3 H RDW Coeff of Gali 13.7 Plt Count 124 L MPV 10.3 Immature Gran % (Auto) 0.500 Neut % (Auto) 76.9 H Lymph % (Auto) 14.2 L Jackson % (Auto) 7.2 Eos % (Auto) 0.9 Baso % (Auto) 0.3 Absolute Neuts (auto) 5.7 Absolute Lymphs (auto) 1.05 Nucleated RBC % 0 Sodium 131 L Potassium 5.9 H Chloride 106 Carbon Dioxide 22.0 Anion Gap 3 L BUN 14 Creatinine 1.09 H Estim Creat Clear Calc 47.54 Est GFR (MDRD) Af Amer 65 Est GFR (MDRD) Non-Af 54 L BUN/Creatinine Ratio 12.8 Glucose 243 H Calcium 8.8 TSH 2.37 Management Discussion w/another healthcare provider: corrections caseworker/Case management (Talked with patient regarding her chronic pain and depression and care plan for administration of opiates. Case management informed me that she does not wish to talk to her regarding any affective disorder. I have been told by several nurses that wants to leave because the pharmacy her pre) Discharge Plan Triage Chief Complaint: Other, Pain/Inj ED Provider: Jas Nunez Dx/Rx/DC Orders Clinical Impression: Chronic pain disorder, Hypertension, History of fibromyalgia, Type 1 diabetes mellitus with hyperglycemia, Depression Instructions: Managing Chronic Pain Prescriptions: No Action glimepiride 4 mg tablet 4 mg PO DAILY 30 Days Qty: 30 Label Comments: hydrocortisone 2.5 % cream 1 applic TOPICAL DAILY 30 Days Qty: 30 Label Comments: thiothixene 2 mg capsule 2 mg PO DAILY 30 Days Qty: 30 Label Comments: trazodone 100 mg tablet 300 mg PO QHS 30 Days Qty: 90 Label Comments: insulin glargine [Lantus Solostar U-100 Insulin] 100 unit/mL (3 mL) insulin pen 12 unit SC QHS topiramate 100 mg tablet 100 mg PO BID Label Comments: 1 tablet every morning melatonin-pyridoxine (vit B6) [Melatonin (with B6)] 1 EACH tablet 2 ea PO QHS amitriptyline 25 MG tablet 25 mg PO QHS omeprazole 20 MG capsule 20 mg PO DAILY pravastatin 40 MG tablet 40 mg PO DAILY fluphenazine HCl 1 MG tablet 1 mg PO QHS tapentadol 75 MG tablet 75 mg PO TID cariprazine 3 MG capsule 3 mg PO QHS guaifenesin 600 MG tablet extended release 12hr 600 mg PO TID magnesium oxide 400 MG tablet 400 mg PO DAILY Label Comments: TAKE 1 TABLET BY MOUTH EVERY DAY hydrocortisone 2.5 % cream with perineal applicator 1 applic [place] QHS PRN (Reason: hemorrhoids) Qty: 30 0RF Primary Care Provider: Vivian Meyer Referrals: Vivian Meyer MD [Primary Care Provider] - 3-5 Days Disposition Disposition: Home, Self Care
[2022-06-01 16:43] LABS: Absolute Lymphocyte Count 1.05 X10^3/uL (0.83-4.51); Absolute Neutrophil Count 5.7 X10^3/uL (2.0-7.7); Basophil# 0.02 X10^3/uL; Basophil% 0.3 % (0-1); Eosinophil# 0.07 X10^3/uL; Eosinophils% 0.9 % (0-5); Hematocrit 43.1 % (37-47); Hemoglobin 12.6 g/dL (12.0-15.0); Lymphocyte # 1.05 X10^3/ul (0.83-4.51); Lymphocyte % 14.2 % (19-41); Mean Corp Hgb Conc 29.2 g/dL (32-36); Mean Corpuscular Hgb 27.5 pg (27.0-32.0); Mean Corpuscular Volume 94.1 fL (81-99); Mean Platelet Vol. 10.3 fl (6.2-12.0); Monocyte# 0.53 X10^3/uL; Monocyte% 7.2 % (0-10); NRBC Flagged by Analyzer 0 % (0-5); Neutrophil # 5.67 X10^3/uL (2.7-7.7); Neutrophil % 76.9 % (47-70); Platelet Count 124 K/mm3 (150-450); RBC Distribution Width CV 13.7 % (11.6-14.6); RBC Distribution Width SD 47.3 fl (35.1-43.9); Red Blood Count 4.58 M/mm3 (4.2-5.4); White Blood Count 7.4 K/mm3 (4.4-11.0)
[2022-06-01 17:03] LABS: Anion Gap 3 (5-15); BUN 14 mg/dL (7-18); BUN/Creat Ratio 12.8 RATIO (10-20); Calcium,Total 8.8 mg/dL (8.5-10.1); Chloride 106 mmol/L (98-107); Creatinine, Serum 1.09 mg/dL (0.55-1.02); EST Glomerular Filtration Rate 54 mL/min (>60); Est Glom Filt Rate - Afr Amer 65 mL/min (>60); Estimated Creatinine Clearance 47.54 ml/min; Glucose 243 mg/dL (74-106); Potassium 5.9 mmol/L (3.5-5.1); Sodium Level 131 mmol/L (136-145); Thyroid Stim Hormone (TSH) 2.37 uIU/mL (0.358-3.74)
--- NOTE | 2022-06-01 17:20 | CM.ED ---
Social Work Note Referral Source: MD Nunez Referral Reason: care plan/ MH concerns MD Nunez met with SW and reviewed concerns as patient/patient's is requesting fentanyl for patient's pain and reports patient has been given it previously. MD Nunez reports patient would not make eye contact and appears depressed. SW to follow up with patient and lead SW regarding possible care plan. SW met with patient and patient's and introduced herself and role as [facility] SW. Patient's states why does she need social work. SW explained MD Nunez was consulting with SW to discuss current needs and assist with care. Patient's reports patient doesn't need social service assistant, patient needs something to help her sleep as she hasn't slept in four days. SW looked directly at the patient and inquired if SW would have a conversation with her to get to know her and how she might be able to help. Patient shakes her head no. Patient's states patient doesn't need to talk with social work but the doctor needs to get in here and do his job or we can go somewhere else for help. SW informed patient was declining to speak with SW and patient's was requesting the MD return to the room to assist patient with pain. MD to follow up. Carlotta Aragon CHIEF RELAY TESTER, [place]
== END 2022-06-01 17:38 | disposition home or self-care (01) ==
PROVIDERS: Emergency Provider Emergency Medicine; PCP Internal Medicine; Visit Provider Emergency Medicine
DX: M79.7 Fibromyalgia (principal); J44.9 Chronic obstructive pulmonary disease, unspecified; E10.65 Type 1 diabetes mellitus with hyperglycemia; Z79.4 Long term (current) use of insulin; G89.4 Chronic pain syndrome; E78.5 Hyperlipidemia, unspecified; I10 Essential (primary) hypertension; F32.A Depression, unspecified; E66.9 Obesity, unspecified; Z68.33 Body mass index [BMI] 33.0-33.9, adult; Z79.84 Long term (current) use of oral hypoglycemic drugs; Z79.899 Other long term (current) drug therapy; Z87.891 Personal history of nicotine dependence
CPT/HCPCS: 80048; 84443; 85025; 99283; A4216

== ENCOUNTER 2022-06-06 02:47 | Emergency (ER) | payer MEDICAID, SELFPAY ==
[2022-06-06 02:48] VITALS: BP 144/56; PULSE 77; RESP 19; TEMP 36.4; O2SAT 94; BMI 33.0
--- NOTE | 2022-06-06 03:05 | EDS_ITS ---
HPI History of Present Illness Chief Complaint: Other, Pain/Inj Detail of Chief Complaint: Acute on chronic pain. Informant: patient Onset/Context/Timing Onset: Days Context: Gradual Onset Timing: Continuous Current Severity: Mild Maximum Severity: Mild Narrative Narrative: 61-year-old female history of chronic pain, anxiety and depression, COPD, diabetes, hypertension, schizophrenia. She sees Dr. Paz for pain management. He has her on chronic pain meds. Recently decreased the dose and they had increased again to help control her pain. She is complaining of diffuse joint pain. Denies any fever or chills. Denies any nausea, vomiting, diarrhea or dysuria. Denies any recent hospitalization. Denies any falls or trauma. She was actually seen in the emergency department 4 days ago or so. Was requesting pain medication at that time. She is screening labs are unremarkable. Prior similar symptoms: Yes Recent Illness/Hospitalization: No [facility] Medical History Anxiety Anxiety and depression Asthma Bradycardia Colon cancer COPD (chronic obstructive pulmonary disease) Depression Diabetes Former smoker GERD (gastroesophageal reflux disease) Hyperlipidemia Hypertension Migraines Obesity (BMI 30.0-34.9) Paranoid schizophrenia Schizophrenia Secondary pulmonary arterial hypertension Tracheitis Type I diabetes mellitus Home Medications topiramate 100 mg tablet 100 mg PO BID 03/01/17 [History Last Taken 12/06/18 09:00] hydrocortisone 2.5 % topical cream 1 applic topical DAILY 30 days ##30 10/31/17 [History Last Taken Unknown] insulin glargine 100 unit/mL (3 mL) subcutaneous pen (Lantus Solostar U-100 Insulin) 12 unit subcut QHS 10/31/17 [History Last Taken Unknown] thiothixene 2 mg capsule 2 mg PO DAILY 30 days ##30 10/31/17 [History Last Taken 12/04/17 05:30] trazodone 100 mg tablet 300 mg PO QHS 30 days ##90 10/31/17 [History Last Taken Unknown] glimepiride 4 mg tablet 4 mg PO DAILY 30 days ##30 11/01/17 [History Last Taken Unknown] amitriptyline 25 mg tablet 25 mg PO QHS 11/28/17 [History Last Taken Unknown] melatonin 5 mg-pyridoxine (vitamin B6) 1 mg tablet (Melatonin (with B6)) 2 ea PO QHS 11/28/17 [History Last Taken Unknown] omeprazole 20 mg capsule,delayed release 20 mg PO DAILY 12/04/17 [History Last Taken 12/06/18 09:00] cariprazine 3 mg capsule 3 mg PO QHS mental status 12/04/18 [History Last Taken Unknown] fluphenazine HCl 1 mg tablet 1 mg PO QHS 12/04/18 [History Last Taken Unknown] guaifenesin 600 mg tablet, extended release 12 hr 600 mg PO TID 12/04/18 [History Last Taken 12/06/18 09:00] pravastatin 40 mg tablet 40 mg PO DAILY 12/04/18 [History Last Taken Unknown] tapentadol 75 mg tablet 75 mg PO TID pain 12/04/18 [History Last Taken 12/06/18 09:00] magnesium oxide 400 mg (241.3 mg magnesium) tablet 400 mg PO DAILY 04/16/19 [History Last Taken Unknown] hydrocortisone 2.5 % topical cream with perineal applicator 1 applic NC QHS PRN hemorrhoids #30 grams 05/17/21 [Rx Last Taken Unknown] Allergy/AdvReac Type Severity Reaction Status Date / Time azithromycin Allergy Rash Verified 06/06/22 02:52 Cephalosporins Allergy Rash Verified 06/06/22 02:52 mahoney [cherries] Allergy Angioedema Verified 06/06/22 02:52 codeine Allergy Rash Verified 06/06/22 02:52 diclofenac [Diclofenac] Allergy Rash Verified 06/06/22 02:52 hydrocodone bitartrate Allergy Rash Verified 06/06/22 02:52 [From Vicodin] hydromorphone HCl Allergy Rash Verified 06/06/22 02:52 [From Dilaudid] lemon Allergy Angioedema Verified 06/06/22 02:52 Penicillins Allergy Anaphylaxis Verified 06/06/22 02:52 Sulfa (Sulfonamide Allergy Rash Verified 06/06/22 02:52 Antibiotics) pear AdvReac NEEDS Verified 06/06/22 02:52 FOLLOW-UP soap AdvReac NEEDS Verified 06/06/22 02:52 FOLLOW-UP Family History Father Heart disease Other Thyroid disorder Surgical History Colostomy in place History of appendectomy History of colectomy History of partial colectomy Presence of cardiac pacemaker (09/28/16) Tracheostomy in place Social History household members: spouse Smoking Status: Former smoker quit date: 08/27/10 pack-years: 45 substance use type: does not use and marijuana ROS ROS ED ROS Narrative History of chronic pain. Denies recent illness. Denies fever. Denies cough. Denies nausea, vomiting, diarrhea or dysuria. Review of Systems ROS Unobtainable: Denies due to encephalopathy Constitutional Constitutional ED: Denies chills or fever(s) Eyes Eyes: Denies blurry vision ENT ENT ED: Denies ear pain Cardiovascular Cardiovascular: Denies chest pain Respiratory/Chest Respiratory/Chest: Denies cough or dyspnea Gastrointestinal Gastrointestinal: Denies abdominal pain Genitourinary Genitourinary ED: Denies dysuria or hematuria Musculoskeletal Musculoskeletal: Reports arthralgias Integumentary Denies abscess or Abrasions Neurologic Neurologic: Denies headache(s) Psychiatric Psychiatric: Denies anxiety Endocrine Endocrinology: Denies cold intolerance Hematologic/Lymphatic Hematologic/Lymphatic: Reports none Allergic/Immunologic Allergic/Immunologic ED: Denies mouth swelling or tongue swelling EXAM Physical Exam Narrative Exam Narrative: 61-year-old female vital signs are stable afebrile. She does not look septic or toxic or in any distress. at bedside. H EENT exam unremarkable atraumatic. Pupils round reactive light. Moist mucous membranes. Neck nontender. No lymphadenopathy. Lungs clear to auscultation bilaterally. Heart regular rhythm no murmur. Abdomen soft nontender. Morbidly obese. No peritoneal signs. Moving all 4 extremities. Nontender. No deformity. No edema. No bruising. Normal hospice volunteer coordinator strength bilaterally. Normal dorsi plantarflexion. Nontender. No ecchymosis or bruising. Neurologically patient is awake and alert without focal motor deficits. Const Vital Signs: 06/06/22 02:48 Temperature 97.5 F L Temperature Source Temporal Pulse Rate 77 Respiratory Rate 19 H Blood Pressure 144/56 H Blood Pressure Mean 85 Pulse Ox 94 Oxygen Delivery Method Room Air Positive well nourished, well developed and obese; Negative for cachectic, contractures or unkempt General Appearance ED: well developed and NAD; Negative for unkempt, cachectic, contractures, cyanotic, diaphoretic or pallor Nutritional Appearance: obese; Negative for cachectic HEENT Reports moist mucous membranes; Denies dry mucous membranes Negative for trauma or tenderness Mouth ED: No dry mucous membranes Mouth: No dry mucous membranes Eyes PERRL and EOMs intact bilaterally General Eye ED: Negative for pale conjunctiva or scleral icterus Neck no lymphadenopathy, supple and no JVD General: Negative for tenderness Lymph Lymphatic: Negative for other Chest Wall inspection of chest normal and palpation of chest normal Chest: Negative for other Resp normal respiratory effort and clear to auscultation bilaterally Effort and Inspection: Negative for retractions Auscultation: Negative for rales, rhonchi or wheezes Cardio regular rate, regular rhythm, S1 normal heart sound, S2 normal heart sound and no murmurs Rhythm: Negative for abnormal rhythm GI normal to inspection, nondistended, normoactive bowel sounds, non-tender, non- distended and no masses Inspection: Negative for abdominal distention Auscultation: normoactive bowel sounds Palpation: soft; Negative for tender or guarding Back/Spine no CVA tenderness General Back: Negative for CVA tenderness Cervical Spine: Negative for cervical spine tenderness Thoracic Spine / Upper Back: Negative for thoracic spinal tenderness Lumbar Spine / Lower Back: Negative for lumbar spinal tenderness Extremity normal to inspection General Extremety ED: Negative for edema or tenderness General Extremity: Negative for edema Neuro oriented x3 and CN's II-XII intact bilaterally Sensorium / Orientation: alert; Negative for orientation impaired, lethargic or stuporous Motor Exam: strength 5/5 throughout; Negative for general weakness or strength abnormal Psych Appearance: Negative for unkempt Attitude: No agitated Mood & Affect: Negative for depressed, anxious or tearful Skin no rashes or lesions noted, no wounds and skin turgor normal General Skin Exam: elasticity normal; Negative for jaundice or pallor Lesions: No lesion noted Rashes: No rashes noted Trauma: Negative for abrasion Wounds: Negative for wounds noted MDM MDM MDM Narrative Medical decision making narrative: 61-year-old female chronic pain. Exam benign. Was seen 4 days ago had unremarkable labs at that time. She has normal vital signs. She is not complaining of any illness. I do not think she needs any further testing or imaging. She has had no falls or trauma. I explained to both her and her that we do not really give narcotic pain medication for chronic pain through the emergency department. This is not verifiable pain. Her exam is benign. She was offered an IM injection of Toradol which she will do. And she will be discharged home to follow-up with her pain management doctor for medication adjustments. As needed. History & Record Review Discussion w/independent historian: Patient and Family Discharge Plan Triage Chief Complaint: Other, Pain/Inj ED Provider: Gaetano Doyle Dx/Rx/DC Orders Clinical Impression: Chronic pain, Type I diabetes mellitus, Chronic pain disorder, History of fibromyalgia Instructions: ED Chronic Pain Prescriptions: No Action glimepiride 4 mg tablet 4 mg PO DAILY 30 Days Qty: 30 Label Comments: hydrocortisone 2.5 % cream 1 applic TOPICAL DAILY 30 Days Qty: 30 Label Comments: thiothixene 2 mg capsule 2 mg PO DAILY 30 Days Qty: 30 Label Comments: trazodone 100 mg tablet 300 mg PO QHS 30 Days Qty: 90 Label Comments: insulin glargine [Lantus Solostar U-100 Insulin] 100 unit/mL (3 mL) insulin pen 12 unit SC QHS topiramate 100 mg tablet 100 mg PO BID Label Comments: 1 tablet every morning melatonin-pyridoxine (vit B6) [Melatonin (with B6)] 1 EACH tablet 2 ea PO QHS amitriptyline 25 MG tablet 25 mg PO QHS omeprazole 20 MG capsule 20 mg PO DAILY pravastatin 40 MG tablet 40 mg PO DAILY fluphenazine HCl 1 MG tablet 1 mg PO QHS tapentadol 75 MG tablet 75 mg PO TID cariprazine 3 MG capsule 3 mg PO QHS guaifenesin 600 MG tablet extended release 12hr 600 mg PO TID magnesium oxide 400 MG tablet 400 mg PO DAILY Label Comments: TAKE 1 TABLET BY MOUTH EVERY DAY hydrocortisone 2.5 % cream with perineal applicator 1 applic NC QHS PRN (Reason: hemorrhoids) Qty: 30 0RF Primary Care Provider: Vivian Meyer Referrals: Bethanie Trevizo MD [Med Staff - Active Staff] - As soon as possible Vivian Meyer MD [Primary Care Provider] - As soon as possible Activity Restrictions/Additional Instructions: Call and follow-up with your pain management doctor that discussed with them having your meds adjusted. Disposition Disposition: Home, Self Care
[2022-06-06] MEDS: Ketorolac 30 MG/ML Syringe IM (03:12)
== END 2022-06-06 04:35 | disposition home or self-care (01) ==
PROVIDERS: Emergency Provider Emergency Medicine; PCP Internal Medicine; Visit Provider Emergency Medicine
DX: M79.7 Fibromyalgia (principal); F20.0 Paranoid schizophrenia; J44.9 Chronic obstructive pulmonary disease, unspecified; E66.01 Morbid (severe) obesity due to excess calories; E10.9 Type 1 diabetes mellitus without complications; Z79.4 Long term (current) use of insulin; G89.4 Chronic pain syndrome; I10 Essential (primary) hypertension; F41.9 Anxiety disorder, unspecified; E78.5 Hyperlipidemia, unspecified; Z68.33 Body mass index [BMI] 33.0-33.9, adult; Z79.84 Long term (current) use of oral hypoglycemic drugs; Z79.899 Other long term (current) drug therapy; Z87.891 Personal history of nicotine dependence
CPT/HCPCS: 96372; 99285

== ENCOUNTER → 2022-06-29 | Outpatient (CLI) | payer MEDICAID, SELFPAY ==
[2022-06-29 12:57] LABS: Amphetamine Urine VISTA NEGATIVE (<1000 ng/mL); Barbiturate Urine VISTA NEGATIVE (< 200 ng/mL); Benzodiazepine Urine VISTA NEGATIVE (< 200 ng/mL); Cocaine Urine VISTA NEGATIVE (< 300 ng/mL); Ecstacy Urine VISTA NEGATIVE (< 500 ng/mL); Methadone Urine VISTA NEGATIVE (< 300 ng/mL); PCP Urine VISTA NEGATIVE (< 25 ng/mL); THC Urine VISTA POSITIVE (< 50 ng/mL); Vista UDS pH Range 6
== END | disposition home or self-care (01) ==
PROVIDERS: PCP Internal Medicine; Referring Provider Anesthesiology Pain Medicine; Visit Provider Anesthesiology Pain Medicine
DX: F11.20 Opioid dependence, uncomplicated (principal)
CPT/HCPCS: 80307

== ENCOUNTER 2022-11-13 13:25 | Emergency (ER) | payer MEDICAID, SELFPAY ==
[2022-11-13 13:25] VITALS: BP 129/54; PULSE 70; RESP 16; TEMP 36.5; O2SAT 97
--- NOTE | 2022-11-13 13:55 | RAD_ITS ---
EXAM: XR LEFT HIP WITH PELVIS WHEN PERFORMED, 2 OR 3 VIEWS CLINICAL INDICATION: Trauma TECHNIQUE: Two or three views of the left hip with pelvis when performed. COMPARISON: No relevant prior studies available. FINDINGS: BONES/JOINTS: Unremarkable. No displaced fracture. No destructive or sclerotic lesions. Note that overlapping bowel shadows may however obscure fine detail. Sacroiliac joint is unremarkable. No widening of the pubic symphysis. The articular structures are unremarkable. SOFT TISSUES: Unremarkable. No soft tissue swelling or gas. RAD/HIP, UNI W/ Pelvis 2-3 Views IMPRESSION: No evidence of displaced pelvic or hip fracture. Electronically Signed: Schuyler Brown MD at 14:16 EDT ,
--- NOTE | 2022-11-13 13:58 | EX.ED.DYSGE1 ---
HPI History of Present Illness Chief Complaint: Sore Throat Informant: patient and spouse/S.O. Narrative Narrative: Patient presents with a sore left hip and a sore throat. Patient states that she was walking the bathroom the other morning. It was dark. She was not paying attention. She missed stepped and fell backwards into a wall and then slid down the wall landing on her left buttock/hip area. It has been sore ever since. She saw chiropractor 2 days ago but it is still sore. Of note she is already on Nucynta and gabapentin for chronic arthritic pains but not pain specifically related to the hip. She never hit her head. No headache. She is not on blood thinners. Patient also has a complaint of a sore throat. This has been going on a few days. Its not unilateral. She is able to eat and drink. No fevers or chills. No coughing. No bleeding. No epistaxis. No nasal drainage. No facial pain. Her primary reason for coming here is the sore hip but she mention the sore throat to have it evaluated also. [facility] Medical History Anxiety Anxiety and depression Asthma Bradycardia Colon cancer COPD (chronic obstructive pulmonary disease) Depression Diabetes Former smoker GERD (gastroesophageal reflux disease) Hyperlipidemia Hypertension Migraines Obesity (BMI 30.0-34.9) Paranoid schizophrenia Schizophrenia Secondary pulmonary arterial hypertension Tracheitis Type I diabetes mellitus Home Medications topiramate 100 mg tablet 100 mg PO BID 03/01/17 [History Last Taken 12/06/18 09:00] hydrocortisone 2.5 % topical cream 1 applic topical DAILY 30 days ##30 10/31/17 [History Last Taken Unknown] insulin glargine 100 unit/mL (3 mL) subcutaneous pen (Lantus Solostar U-100 Insulin) 12 unit subcut QHS 10/31/17 [History Last Taken Unknown] thiothixene 2 mg capsule 2 mg PO DAILY 30 days ##30 10/31/17 [History Last Taken 12/04/17 05:30] trazodone 100 mg tablet 300 mg PO QHS 30 days ##90 10/31/17 [History Last Taken Unknown] glimepiride 4 mg tablet 4 mg PO DAILY 30 days ##30 11/01/17 [History Last Taken Unknown] amitriptyline 25 mg tablet 25 mg PO QHS 11/28/17 [History Last Taken Unknown] melatonin 5 mg-pyridoxine (vitamin B6) 1 mg tablet (Melatonin (with B6)) 2 ea PO QHS 11/28/17 [History Last Taken Unknown] omeprazole 20 mg capsule,delayed release 20 mg PO DAILY 12/04/17 [History Last Taken 12/06/18 09:00] cariprazine 3 mg capsule 3 mg PO QHS mental status 12/04/18 [History Last Taken Unknown] fluphenazine HCl 1 mg tablet 1 mg PO QHS 12/04/18 [History Last Taken Unknown] guaifenesin 600 mg tablet, extended release 12 hr 600 mg PO TID 12/04/18 [History Last Taken 12/06/18 09:00] pravastatin 40 mg tablet 40 mg PO DAILY 12/04/18 [History Last Taken Unknown] tapentadol 75 mg tablet 75 mg PO TID pain 12/04/18 [History Last Taken 12/06/18 09:00] magnesium oxide 400 mg (241.3 mg magnesium) tablet 400 mg PO DAILY 04/16/19 [History Last Taken Unknown] hydrocortisone 2.5 % topical cream with perineal applicator 1 applic MT QHS PRN hemorrhoids #30 grams 05/17/21 [Rx Last Taken Unknown] Allergy/AdvReac Type Severity Reaction Status Date / Time azithromycin Allergy Rash Verified 11/13/22 13:28 Cephalosporins Allergy Rash Verified 11/13/22 13:28 mahoney [cherries] Allergy Angioedema Verified 11/13/22 13:28 codeine Allergy Rash Verified 11/13/22 13:28 diclofenac [Diclofenac] Allergy Rash Verified 11/13/22 13:28 hydrocodone bitartrate Allergy Rash Verified 11/13/22 13:28 [From Vicodin] hydromorphone HCl Allergy Rash Verified 11/13/22 13:28 [From Dilaudid] lemon Allergy Angioedema Verified 11/13/22 13:28 Penicillins Allergy Anaphylaxis Verified 11/13/22 13:28 Sulfa (Sulfonamide Allergy Rash Verified 11/13/22 13:28 Antibiotics) pear AdvReac NEEDS Verified 11/13/22 13:28 FOLLOW-UP soap AdvReac NEEDS Verified 11/13/22 13:28 FOLLOW-UP Family History Father Heart disease Other Thyroid disorder Surgical History Colostomy in place History of appendectomy History of colectomy History of partial colectomy Presence of cardiac pacemaker (09/28/16) Tracheostomy in place Social History household members: spouse Smoking Status: Former smoker quit date: 08/27/10 pack-years: 45 substance use type: does not use and marijuana ROS ROS ED Constitutional Constitutional ED: Denies chills, fever(s), subjective or sweats Eyes Eyes: Denies change in vision ENT ENT ED: Reports sore throat; Denies ear pain or rhinorrhea Cardiovascular Cardiovascular: Denies chest pain or palpitations Respiratory/Chest Respiratory/Chest: Denies cough or dyspnea Gastrointestinal Gastrointestinal: Denies abdominal pain, nausea or vomiting Genitourinary Genitourinary ED: Denies dysuria or hematuria Musculoskeletal Musculoskeletal: Reports arthralgias and other Details: See history of present illness. ; Denies back pain, myalgias or neck pain Integumentary Denies Abrasions or rash Neurologic Neurologic: Denies headache(s), paresthesias or weakness Hematologic/Lymphatic Hematologic/Lymphatic: Denies easy bleeding or easy bruising Allergic/Immunologic Allergic/Immunologic ED: Denies urticaria EXAM Physical Exam Narrative Exam Narrative: Patient is awake alert sitting comfortably in bed. No acute distress. She actually looks a little bit sleepy. HEENT shows no external trauma. No facial tenderness. Tympanic membranes are clear. No sign of notable erythema. Her voice sounds normal to me and her . I see no exudate. I see no thrush. Neck is supple. No lymphadenopathy. No JVD. Lungs are clear bilaterally. Saturations are normal at 97% on room air showing no hypoxia. Heart is regular. There is no murmur gallop or rub that I hear. Abdomen is obese but otherwise benign. No tenderness. There is no cervical thoracic or lumbar area tenderness. No tenderness in the sacrum. Extremity: She does have a little bit of tenderness in the buttock posterior to the greater trochanter area. But I am not seeing any bruising in that area at this point. Her leg is not shortened. Is not rotated. No tenderness lower down in the legs. Const Vital Signs: 11/13/22 13:25 Temperature 97.7 F L Temperature Source Temporal Pulse Rate 70 Respiratory Rate 16 Blood Pressure 129/54 H Blood Pressure Mean 79 Pulse Ox 97 Oxygen Delivery Method Room Air MDM MDM MDM Narrative Medical decision making narrative: Interpretation of the patient's three-view x-ray of the left hip shows no acute process. Final reading is no evidence of displaced pelvic or hip fracture. Patient's rapid strep is negative. I discussed options with the patient. She states she is just very sore in her buttock. There is no sign of bruising. There is no sign of fracture. I explained that she is beyond the [facility] and Nucynta as an outpatient. I cannot prescribe further controlled substances. I will give her dose of medicine here. Although Dilaudid is listed as a rash she states she can have that without a problem. She is allergic to hydrocodone, oxycodone morphine codeine and most nonsteroidals. She swears Dilaudid is the one medicine that she can take that does not cause a rash. I think her sore throat is likely viral. I do not think these 2 issues are related. Radiography Diagnostic Testing: Clinical Impression(s) from Imaging Studies Hip/Pelvis X-Ray 11/13/22 13:55 IMPRESSION: No evidence of displaced pelvic or hip fracture. Electronically Signed: Schuyler Brown MD at 14:16 EDT Reading Location ID and State: [facility] / [place] , Service support , Discharge Plan Triage Chief Complaint: Sore Throat ED Provider: Han Hooks Dx/Rx/DC Orders Clinical Impression: Fall at home, Acute sore throat, Contusion of hip, left Instructions: ED Hip Contusion Prescriptions: No Action glimepiride 4 mg tablet 4 mg PO DAILY 30 Days Qty: 30 Patient Comments: hydrocortisone 2.5 % cream 1 applic TOPICAL DAILY 30 Days Qty: 30 Patient Comments: thiothixene 2 mg capsule 2 mg PO DAILY 30 Days Qty: 30 Patient Comments: trazodone 100 mg tablet 300 mg PO QHS 30 Days Qty: 90 Patient Comments: insulin glargine [Lantus Solostar U-100 Insulin] 100 unit/mL (3 mL) insulin pen 12 unit SC QHS topiramate 100 mg tablet 100 mg PO BID Patient Comments: 1 tablet every morning melatonin-pyridoxine (vit B6) [Melatonin (with B6)] 1 EACH tablet 2 ea PO QHS amitriptyline 25 MG tablet 25 mg PO QHS omeprazole 20 MG capsule 20 mg PO DAILY pravastatin 40 MG tablet 40 mg PO DAILY fluphenazine HCl 1 MG tablet 1 mg PO QHS tapentadol 75 MG tablet 75 mg PO TID cariprazine 3 MG capsule 3 mg PO QHS guaifenesin 600 MG tablet extended release 12hr 600 mg PO TID magnesium oxide 400 MG tablet 400 mg PO DAILY Patient Comments: TAKE 1 TABLET BY MOUTH EVERY DAY hydrocortisone 2.5 % cream with perineal applicator 1 applic MT QHS PRN (Reason: hemorrhoids) Qty: 30 0RF Primary Care Provider: Vivian Meyer Referrals: Vivian Meyer MD [Primary Care Provider] - 3-5 Days Activity Restrictions/Additional Instructions: Follow-up with Dr. Trevizo for further pain management. Disposition Disposition: Home, Self Care
[2022-11-13] MEDS: HYDROmorphone 0.5 MG/0.5 ML SYRINGE IM (14:55)
[2022-11-13 15:12] VITALS: BP 134/69; PULSE 72; RESP 15; O2SAT 98
== END 2022-11-13 15:13 | disposition home or self-care (01) ==
PROVIDERS: Emergency Provider Emergency Medicine; PCP Internal Medicine; Visit Provider Emergency Medicine
DX: J02.9 Acute pharyngitis, unspecified (principal); S70.02XA Contusion of left hip, initial encounter; Z87.891 Personal history of nicotine dependence; Z95.0 Presence of cardiac pacemaker; W19.XXXA Unspecified fall, initial encounter
CPT/HCPCS: 73502; 87880; 99284

== ENCOUNTER 2023-04-08 17:39 | Emergency (ER) | payer MEDICAID, SELFPAY ==
[2023-04-08] VITALS (31 sets, daily range): BP systolic 100–157; BP diastolic 42–116; PULSE 58–104; RESP 0–27; TEMP 36.8; O2SAT 91–97; BMI 30.1
--- NOTE | 2023-04-08 18:00 | ED.VIS.CHEST ---
HPI History of Present Illness Chief Complaint: Chest Pain Informant: patient Narrative Narrative: Patient states she has been having intermittent sharp sometimes pleuritic left-sided chest discomfort for the past 3 days. When it is there he can last for couple hours. Today she did not have any symptoms until about an hour ago when she was walking in a store. It is still there. Makes her little short of breath because it hurts to breathe. No palpitations or syncope/near syncope. No recent edema in her legs. She has had a cough for about a month that is occasionally productive of clear sputum but no blood. No history of DVT or PE. No anticoagulants. Takes no aspirin or other antiplatelet medications. She has a pacemaker but no stents in her heart, she does not know specifics about her medical history. [facility] Medical History Anxiety Anxiety and depression Asthma Bradycardia Colon cancer COPD (chronic obstructive pulmonary disease) Depression Diabetes Former smoker GERD (gastroesophageal reflux disease) Hyperlipidemia Hypertension Migraines Obesity (BMI 30.0-34.9) Paranoid schizophrenia Schizophrenia Secondary pulmonary arterial hypertension Tracheitis Type I diabetes mellitus Home Medications topiramate 100 mg tablet 100 mg PO BID 03/01/17 [History Last Taken 12/06/18 09:00] hydrocortisone 2.5 % topical cream 1 applic topical DAILY 30 days ##30 10/31/17 [History Last Taken Unknown] insulin glargine 100 unit/mL (3 mL) subcutaneous pen (Lantus Solostar U-100 Insulin) 12 unit subcut QHS 10/31/17 [History Last Taken Unknown] thiothixene 2 mg capsule 2 mg PO DAILY 30 days ##30 10/31/17 [History Last Taken 12/04/17 05:30] trazodone 100 mg tablet 300 mg PO QHS 30 days ##90 10/31/17 [History Last Taken Unknown] glimepiride 4 mg tablet 4 mg PO DAILY 30 days ##30 11/01/17 [History Last Taken Unknown] amitriptyline 25 mg tablet 25 mg PO QHS 11/28/17 [History Last Taken Unknown] melatonin 5 mg-pyridoxine (vitamin B6) 1 mg tablet (Melatonin (with B6)) 2 ea PO QHS 11/28/17 [History Last Taken Unknown] omeprazole 20 mg capsule,delayed release 20 mg PO DAILY 10/01/18 [History Last Taken 12/06/18 09:00] cariprazine 3 mg capsule 3 mg PO QHS mental status 12/04/18 [History Last Taken Unknown] fluphenazine HCl 1 mg tablet 1 mg PO QHS 12/04/18 [History Last Taken Unknown] guaifenesin 600 mg tablet, extended release 12 hr 600 mg PO TID 12/04/18 [History Last Taken 12/06/18 09:00] pravastatin 40 mg tablet 40 mg PO DAILY 12/04/18 [History Last Taken Unknown] tapentadol 75 mg tablet 75 mg PO TID pain 12/04/18 [History Last Taken 12/06/18 09:00] magnesium oxide 400 mg (241.3 mg magnesium) tablet 400 mg PO DAILY 04/16/19 [History Last Taken Unknown] hydrocortisone 2.5 % topical cream with perineal applicator 1 applic [place] QHS PRN hemorrhoids #30 grams 05/17/21 [Rx Last Taken Unknown] hyoscyamine sulfate 0.125 mg sublingual tablet 0.25 mg (2 x 0.125 mg) PO Q6H PRN epigastric discomfort #12 tabs 04/08/23 [Rx Last Taken Unknown] Allergy/AdvReac Type Severity Reaction Status Date / Time azithromycin Allergy Rash Verified 04/08/23 17:39 Cephalosporins Allergy Rash Verified 04/08/23 17:39 mahoney [cherries] Allergy Angioedema Verified 04/08/23 17:39 codeine Allergy Rash Verified 04/08/23 17:39 diclofenac [Diclofenac] Allergy Rash Verified 04/08/23 17:39 hydrocodone bitartrate Allergy Rash Verified 04/08/23 17:39 [From Vicodin] hydromorphone HCl Allergy Rash Verified 04/08/23 17:39 [From Dilaudid] lemon Allergy Angioedema Verified 04/08/23 17:39 Penicillins Allergy Anaphylaxis Verified 04/08/23 17:39 Sulfa (Sulfonamide Allergy Rash Verified 04/08/23 17:39 Antibiotics) pear AdvReac NEEDS Verified 04/08/23 17:39 FOLLOW-UP soap AdvReac NEEDS Verified 04/08/23 17:39 FOLLOW-UP Family History Father Heart disease Other Thyroid disorder Surgical History Colostomy in place History of appendectomy History of colectomy History of partial colectomy Presence of cardiac pacemaker (09/28/16) Tracheostomy in place Social History household members: spouse Smoking Status: Former smoker quit date: 08/27/10 pack-years: 45 substance use type: does not use and marijuana ROS ROS ED Constitutional Constitutional ED: Denies chills or fever(s) Eyes Eyes: Denies change in vision or diplopia ENT ENT ED: Denies rhinorrhea or sore throat Cardiovascular Cardiovascular: Reports as per HPI and chest pain; Denies leg edema or palpitations Respiratory/Chest Respiratory/Chest: Reports cough and dyspnea Gastrointestinal Gastrointestinal: Denies abdominal pain, diarrhea, nausea or vomiting Genitourinary Genitourinary ED: Denies dysuria or hematuria Musculoskeletal Musculoskeletal: Denies back pain or neck pain Integumentary Denies abscess or rash Neurologic Neurologic: Denies headache(s), paresthesias or weakness Psychiatric Psychiatric: Denies anxiety or suicidal thoughts EXAM Physical Exam Const Vital Signs: 04/08/23 17:40 04/08/23 17:47 04/08/23 18:17 Temperature 98.2 F Temperature Source Oral Pulse Rate 58 L Respiratory Rate 16 Respiratory Pattern Normal Blood Pressure 122/51 H Blood Pressure Mean 74 Pulse Ox 97 Oxygen Delivery Method Room Air Room Air 04/08/23 18:58 04/08/23 19:00 04/08/23 19:10 Temperature Temperature Source Pulse Rate 65 Respiratory Rate 0 L 20 H Respiratory Pattern Blood Pressure 138/44 H Blood Pressure Mean 68 Pulse Ox Oxygen Delivery Method 04/08/23 19:15 04/08/23 19:20 04/08/23 19:30 Temperature Temperature Source Pulse Rate 65 97 92 Respiratory Rate 20 H 21 H 19 H Respiratory Pattern Blood Pressure 122/67 H Blood Pressure Mean 80 Pulse Ox 97 96 Oxygen Delivery Method Room Air 04/08/23 19:40 04/08/23 19:45 04/08/23 19:50 Temperature Temperature Source Pulse Rate 85 61 104 H Respiratory Rate 18 21 H 19 H Respiratory Pattern Blood Pressure 141/68 H Blood Pressure Mean 87 Pulse Ox Oxygen Delivery Method 04/08/23 20:00 04/08/23 20:10 04/08/23 20:15 Temperature Temperature Source Pulse Rate 66 96 95 Respiratory Rate 23 H 20 H 20 H Respiratory Pattern Blood Pressure 126/74 H 130/74 H Blood Pressure Mean 90 92 Pulse Ox Oxygen Delivery Method Room Air 04/08/23 20:20 04/08/23 20:30 04/08/23 20:40 Temperature Temperature Source Pulse Rate 89 87 90 Respiratory Rate 18 22 H 22 H Respiratory Pattern Blood Pressure 123/76 H Blood Pressure Mean 92 Pulse Ox Oxygen Delivery Method 04/08/23 20:45 04/08/23 20:50 04/08/23 21:08 Temperature Temperature Source Pulse Rate 89 92 Respiratory Rate 25 H 20 H Respiratory Pattern Blood Pressure 133/116 H Blood Pressure Mean 121 Pulse Ox 94 Oxygen Delivery Method Room Air 04/08/23 21:10 04/08/23 21:15 04/08/23 21:20 Temperature Temperature Source Pulse Rate 98 Respiratory Rate 15 Respiratory Pattern Blood Pressure 157/76 H Blood Pressure Mean 99 Pulse Ox 94 Oxygen Delivery Method 04/08/23 21:30 04/08/23 21:40 Temperature Temperature Source Pulse Rate 97 92 Respiratory Rate 26 H 21 H Respiratory Pattern Blood Pressure 121/85 H Blood Pressure Mean 96 Pulse Ox 93 94 Oxygen Delivery Method Room Air Positive well nourished, well developed and obese General Appearance ED: well developed and NAD Nutritional Appearance: obese HEENT Reports moist mucous membranes normocephalic and atraumatic Eyes PERRL and EOMs intact bilaterally Neck full ROM, supple and no JVD Resp normal respiratory effort and clear to auscultation bilaterally Cardio regular rate, regular rhythm and no murmurs GI non-tender and non-distended Auscultation: normoactive bowel sounds Palpation: soft Back/Spine no CVA tenderness General Back: other FROM Extremity normal to inspection General Extremety ED: Negative for edema, pulses abnormal or tenderness General Extremity: Negative for edema or pulses abnormal Neuro oriented x3, CN's II-XII intact bilaterally and no sensory deficits noted Sensorium / Orientation: awake and alert Motor Exam: strength 5/5 throughout Psych Psych Narrative: Flat affect Skin no rashes or lesions noted and no wounds Heart Score History: Slightly/Non-Suspicious ECG: Normal Age: >45 - <65 years Risk Factors: 1 or 2 Risk Factors Score: 2 MDM MDM MDM Narrative Medical decision making narrative: Patient was initially given Mylanta but it did not make her pain go away although it seemed to improve a little. She was then given fentanyl while she was waiting for labs to return because she was asking for more pain medication. She is mild leukocytosis but no sign of a pneumonia on 1 view chest x-ray my interpretation. EKG similar to baseline, no acute injury pattern troponin 6. Repeated it 2 hours later, it is 6 again for a delta of 0. Her D-dimer is normal, ruling out pulmonary embolus. She does not appear to have a widened mediastinum on a chest x-ray to suggest an aortic dissection here. I gave her hyoscyamine she said that really helped but she still has some mild pain. I am giving her prescription for that to use as needed if she has pain that persist longer than a couple days she should follow-up with her doctor sooner than later, she should do that regardless. She is comfortable with that plan. Lab Data Attestation: I reviewed the patient's lab results. Labs: Laboratory Results - last 24 hr 04/08/23 04/08/23 04/08/23 19:10 19:35 21:15 WBC 13.9 H RBC 3.33 L Hgb 8.6 L Hct 29.6 L MCV 88.9 MCH 25.8 L MCHC 29.1 L RDW Std Deviation 56.2 H RDW Coeff of Gali 17.4 H Plt Count 335 MPV 8.4 Immature Gran % (Auto) 0.400 Neut % (Auto) 88.3 H Lymph % (Auto) 5.3 L [place] % (Auto) 5.8 Eos % (Auto) 0.1 Baso % (Auto) 0.1 Absolute Neuts (auto) 12.3 H Absolute Lymphs (auto) 0.74 L Nucleated RBC % 0 D-Dimer Quant (PE/DVT) < 0.27 L Sodium 128 L Potassium 4.2 Chloride 105 Carbon Dioxide 17.0 L Anion Gap 6 BUN 9 Creatinine 1.16 H Estim Creat Clear Calc 51.88 Est GFR (MDRD) Af Amer 60 Est GFR (MDRD) Non-Af 50 L BUN/Creatinine Ratio 7.8 L Glucose 331 H Calcium 8.4 L Troponin I High Sens 6 6 Radiography Diagnostic Testing: Clinical Impression(s) from Imaging Studies Chest X-Ray 04/08/23 18:38 IMPRESSION: 1. Cardiomegaly, intracardiac pacer is noted. No evidence of congestive failure. 2. Shallow inspiration with crowding of bronchovascular markings, no focal infiltrate consolidation. Electronically Signed: Jaylen Hart MD at 19:02 EST , Rhythm Strip Rhythm Strip: Sinus Rhythm Rate: 60 Ectopy: None EKG Initial EKG: Attestation: I personally reviewed and interpreted this EKG as follows: Interpretation: Sinus Rhythm, No Acute Injury Pattern and RBBB Prior EKG tracings: available for review Prior: Unchanged Discharge Plan Triage Chief Complaint: Chest Pain ED Provider: Sean Craig Dx/Rx/DC Orders Clinical Impression: Chest pain, unspecified Instructions: ED Chest Pain, Noncardiac Prescriptions: New hyoscyamine sulfate 0.125 mg tablet, sublingual 0.25 mg PO Q6H PRN (Reason: epigastric discomfort) Qty: 12 0RF No Action glimepiride 4 mg tablet 4 mg PO DAILY 30 Days Qty: 30 Patient Comments: hydrocortisone 2.5 % cream 1 applic TOPICAL DAILY 30 Days Qty: 30 Patient Comments: thiothixene 2 mg capsule 2 mg PO DAILY 30 Days Qty: 30 Patient Comments: trazodone 100 mg tablet 300 mg PO QHS 30 Days Qty: 90 Patient Comments: insulin glargine [Lantus Solostar U-100 Insulin] 100 unit/mL (3 mL) insulin pen 12 unit [place] QHS topiramate 100 mg tablet 100 mg PO BID Patient Comments: 1 tablet every morning melatonin-pyridoxine (vit B6) [Melatonin (with B6)] 1 EACH tablet 2 ea PO QHS amitriptyline 25 MG tablet 25 mg PO QHS omeprazole 20 MG capsule 20 mg PO DAILY pravastatin 40 MG tablet 40 mg PO DAILY fluphenazine HCl 1 MG tablet 1 mg PO QHS tapentadol 75 MG tablet 75 mg PO TID cariprazine 3 MG capsule 3 mg PO QHS guaifenesin 600 MG tablet extended release 12hr 600 mg PO TID magnesium oxide 400 MG tablet 400 mg PO DAILY Patient Comments: TAKE 1 TABLET BY MOUTH EVERY DAY hydrocortisone 2.5 % cream with perineal applicator 1 applic [place] QHS PRN (Reason: hemorrhoids) Qty: 30 0RF Primary Care Provider: Vivian Meyer Referrals: Vivian Meyer MD [Primary Care Provider] - As soon as possible Disposition Disposition: Home, Self Care
--- OUTSIDE RECORDS SUMMARY | 2023-04-08 18:15 | XMS RPT_ITS | CCD ---
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 Name Role Phone Tiff Pearson MD Primary Care Provider ELOISE PEDERSEN DO Admitting Unavailable ELOISE PEDERSEN DO Attending Unavailable ELOISE PEDERSEN DO Primary Care Unavailable TIFF PEARSON MD Referring Unavailable TIFF PEARSON MD Consulting Unavailable PROVIDER, UNKNOWN Consulting Unavailable RAMONITA, DR CHRISTEL Bryant Admitting Unavaila william SHIPMAN, DR CHRISTEL Bryant Attending Unavaila ble RAMONITA, DR CHRISTEL Bryant Primary Care Unavaila TIFF Rutherford MD Consulting Unavailable TIFF PEARSON MD Referring Unavailable PROVIDER, UNKNOWN Consulting Unavailable Quiana Lara RPh Unavailable Fredo RN, Fernanda Unavailable Unavailable Fredo RN, Fernanda Unavailable Unavailable Tiff Pearson MD Primary Care Provider Tiff Pearson MD Primary Care Provider MICHEL TIFF D Primary Care Unavailable SUZANNA ESCALANTE Attending Unavailable TALAMPAS, TIFF D Primary Care Unavailable TALAMPAS, TIFF D Primary Care Unavailable TALAMPAS, TIFF D Attending Unavailable MAGALIEAMPMELISSA, TIFF D Primary Care Unavailable TALAMPAS, TIFF D Primary Care Unavailable SHAWN VERONICA Attending Unavailable TALAMPMELISSA, TIFF D Primary Care Unavailable TALAMPAS, TIFF D Primary Care Unavailable LISA TINOCO Referring Unavailable TALAMPAS, TIFF D Primary Care Unavailable TALAMPAS, TIFF D Attending Unavailable TALAMPAS, TIFF D Primary Care Unavailable TALAMPMELISSA, TIFF D Attending Unavailable TALAMPAS, TIFF D Primary Care Unavailable TALAMPAS, TIFF D Primary Care Unavailable LISA TINOCO Referring Unavailable TESTRAKE, SUZANNA Referring Unavailable TESTRAKE, SUZANNA Attending Unavailable TALAMPAS, TIFF D Primary Care Unavailable TALAMPAS, TIFF D Primary Care Unavailable TESTRAKE, SUZANNA Referring Unavailable TESTRAKE, SUZANNA Attending Unavailable TALAMPAS, TIFF D Primary Care Unavailable TALAMPAS, TIFF D Primary Care Unavailable TALAMPAS, TIFF D Primary Care Unavailable TALAMPAS, TIFF D Referring Unavailable SHAWN VERONICA Attending Unavailable TALAMPAS, TIFF D Primary Care Unavailable TESTRAKE, SUZANNA Attending Unavailable TALAMPAS, TIFF D Primary Care Unavailable TALAMPAS, TIFF D Primary Care Unavailable TALAMPAS, TIFF D Primary Care Unavailable NASIMA HUNTER Referring Unavailable TALAMPAS, TIFF D Primary Care Unavailable SHAWN VERONICA Attending Unavailable TALAMPAS, TIFF D Primary Care Unavailable Allergies Allergy Classification Reported Allergen(s) Allergy Type Date of Onset Reaction(s) Facility (20 sources) Acetaminophen / HYDROcodone; Translations: [HYDROCODONE-ACETA MINOPHEN] Drug Allergy 05-22-[address] [facility] Work Phone: (20 sources) Acetaminophen / oxyCODONE; Translations: [OXYCODONE-ACETAMI NOPHEN] Drug Allergy 08-14-[address] [facility] (20 sources) atorvastatin; Translations: [ATORVASTATIN CALCIUM] Drug Allergy 05-08-[address] [facility] Work Phone: (20 sources) Azithromycin; Translations: [AZITHROMYCIN] Drug Allergy 03-24-[address] [facility] Work Phone: (20 sources) Cephalosporins (Antibiotic); Translations: [CEPHALOSPORINS] Propensity to adverse reactions 04-03-[address] [facility] (20 sources) Ciprofloxacin; Translations: [CIPROFLOXACIN] Drug Allergy 09-12-[address] [facility] Work Phone: (20 sources) Codeine; Translations: [CODEINE] Drug Allergy 04-03-[address] [facility] (20 sources) Diclofenac; Translations: [DICLOFENAC] Drug Allergy 08-28-[address] [facility] (20 sources) HYDROmorphone; Translations: [HYDROMORPHONE (BULK)] Drug Allergy 06-10-[address] [facility] (20 sources) Morphinan opioid; Translations: [OPIOIDS - MORPHINE ANALOGUES] Propensity to adverse reactions 08-28-[address] [facility] (20 sources) Penicillins; Translations: [PENICILLINS] Drug Allergy 04-03-[address] [facility] (20 sources) pregabalin; Translations: [PREGABALIN] Drug Allergy 07-05-[address] [facility] Work Phone: (8 sources) Cherries [Other] Propensity to adverse reactions 04-03-[address] [facility] (8 sources) Jennyfer [Other] Propensity to adverse reactions 04-03-[address] [facility] (8 sources) Pears [Other] Propensity to adverse reactions 10-09-[address] [facility] (20 sources) Soap; Translations: [SOAP] Propensity to adverse reactions 05-31-[address] [facility] Work Phone: (1 source) Acetaminophen / HYDROcodone Drug Allergy [facility] (1 source) Aspirin Drug Allergy [facility] (1 source) Cephalexin Drug Allergy [facility] (1 source) Codeine Drug Allergy [facility] (1 source) Morphine Drug Allergy [facility] (1 source) Penicillins Drug allergy (disorder) [facility] (20 sources) goss allergenic extract; Translations: [GOSS] Drug Allergy 08-02-19 Other: See Comments [facility] (20 sources) Lemon extract; Translations: [LEMON] Drug Allergy 08-02-19 Other: See Comments [facility] (20 sources) Pears; Translations: [PEARS] Drug Allergy 08-02-[address] [facility] (20 sources) Cephalosporins (Antibiotic) Propensity to adverse reactions 04-03-[address] [facility] (20 sources) Penicillins Drug Allergy 04-03-[address] [facility] (20 sources) Sulfonamides (Antibiotic); Translations: [SULFA (SULFONAMIDE ANTIBIOTICS)] Drug Allergy 12-05-[address] [facility] Medications Current Medications Medication Drug Class(es) Dates Sig (Normalized) Sig (Original) cephalexin 500 mg oral capsule (5 sources) Cephalosporin Antibacterial Start: 08-05-2021 End: 08-13-2021 take 1 capsule by mouth four times daily cephALEXin (KEFLEX) 500 mg capsule Take 1 capsule by mouth four times daily for 7 days. 28 capsule 0 08/05/2021 08/13/2021 Active Completed/Discontinued Medications Medication Drug Class(es) Dates Sig (Normalized) Sig (Original) Adhesive Tape ([employer]) 2 X 10 -yard tape (20 sources) Start: 07-24-2017 Adhesive Tape ([employer]) 2 X 10 -yard tape Use for dressings for healing tracheostomy site. 1 Each 1 07/24/2017 Suspended Problems Active Problems Problem Classification Problem Date Documented Da te Episodic/Chronic Acquired foot deformities (1 source) Hammer toe; Translations: [Other hammer toe(s) (acquired), left foot] Chronic Allergic reactions (10 sources) Contact dermatitis caused by adhesive bandage; Translations: [Allergic contact dermatitis due to adhesives] Onset: 2 Episodic Anal and rectal conditions (4 sources) Anal cellulitis; Translations: [Anal abscess] Onset: 2 Episodic Asthma (20 sources) Asthma; Translations: [Unspecified asthma, uncomplicated] 03-01-2021 Chronic Cancer of colon (1 source) Personal history of other malignant neoplasm of large intestine; Translations: [Personal history of other malignant neoplasm of large intestine] Onset: 2 Episodic Chronic obstructive pulmonary disease and bronchiectasis (20 sources) Chronic obstructive lung disease; Translations: [Chronic obstructive pulmonary disease, unspecified] 01-29-2019 Chronic Conduction disorders (20 sources) Complete atrioventricular block; Translations: [Atrioventricular block, complete] Onset: 7 09-29-2016 Chronic Diabetes mellitus with complications (20 sources) Peripheral neuropathy due to type 2 diabetes mellitus; Translations: [Type 2 diabetes mellitus with diabetic polyneuropathy] Onset: 1 06-14-2020 Chronic Diseases of mouth; excluding dental (1 source) Oral lesion; Translations: [Other lesions of oral mucosa] Episodic Disorders of lipid metabolism (20 sources) Hyperlipidemia; Translations: [Hyperlipidemia, unspecified] Onset: 9 12-16-2014 Chronic Genitourinary symptoms and ill-defined conditions (3 sources) Personal history of urinary (tract) infections; Translations: [Scalding pain on urination ] Onset: 2 Episodic Inflammation; infection of eye (except that caused by tuberculosis or sexually transmitteddisease) (20 sources) Endogenous endophthalmitis; 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] Onset: 2 08-02-2021 Chronic Inflammatory diseases of female pelvic organs (1 source) Bacterial vaginosis; Translations: [Acute vaginitis] 11-16-2022 Episodic Mycoses (4 sources) Onychomycosis; Translations: [Tinea unguium] Episodic Other aftercare (2 sources) Other fdc (current) drug therapy; Translations: [Other fdc (current) drug therapy] Onset: 2 Episodic Other connective tissue disease (4 sources) Pain of toe of right foot; Translations: [Pain in right toe(s)] Episodic Other connective tissue disease (4 sources) Pain of toe of left foot; Translations: [Pain in left toe(s)] Episodic Other diseases of veins and lymphatics (1 source) Vascular insufficiency; Translations: [Venous insufficiency (chronic) (peripheral)] Episodic Other eye disorders (2 sources) Hypopyon ulcer; Translations: [Corneal ulcer with hypopyon, right eye] Episodic Other gastrointestinal disorders (20 sources) Ileostomy present; Translations: [Ileostomy status] Onset: 7 09-29-2016 Chronic Other gastrointestinal disorders (3 sources) Diarrhea of presumed infectious origin; Translations: [Diarrhea, unspecified] Episodic Other lower respiratory disease (6 sources) Cough; Translations: [Cough] Episodic Other lower respiratory disease (2 sources) Wheezing; Translations: [Wheezing] 11-01-2022 Episodic Other nervous system disorders (1 source) Other chronic pain; Translations: [Other chronic pain] Onset: 2 Chronic Other non-traumatic joint disorders (1 source) Acute ankle pain; Translations: [Pain in right ankle and joints of right foot] Episodic Other non-traumatic joint disorders (1 source) Hip pain; Translations: [Pain in left hip] 11-16-2022 Episodic Other nutritional; endocrine; and metabolic disorders (20 sources) Hypomagnesemia; Translations: [Hypomagnesemia] Onset: 6 09-29-2016 Chronic Other nutritional; endocrine; and metabolic disorders (20 sources) Hypoalbuminemia; Translations: [Other disorders of plasma-protein metabolism, not elsewhere classified] Onset: 7 09-29-2016 Chronic Other nutritional; endocrine; and metabolic disorders (20 sources) Hypoproteinemia; Translations: [Other disorders of glycoprotein metabolism] Onset: 7 09-29-2016 Chronic Other nutritional; endocrine; and metabolic disorders (20 sources) Obesity; Translations: [Other obesity due to excess calories] Onset: 7 11-08-2016 Chronic Other nutritional; endocrine; and metabolic disorders (20 sources) Obese class II; Translations: [Obesity, unspecified] Onset: 8 02-01-2018 Chronic Other nutritional; endocrine; and metabolic disorders (20 sources) Obesity caused by energy imbalance; Translations: [Other obesity due to excess calories] Onset: 7 11-08-2016 Chronic Other screening for suspected conditions (not mental disorders or infectious disease) (1 source) Patient encounter status; Translations: [Encounter for screening mammogram for malignant neoplasm of breast] Episodic Other skin disorders (1 source) Eruption; Translations: [Rash and other nonspecific skin eruption] Episodic Other upper respiratory disease (20 sources) Finding of respiratory device; Translations: [Encounter for attention to tracheostomy] Onset: 6 09-15-2016 Chronic Other upper respiratory infections (1 source) Chronic sinusitis; Translations: [Chronic sinusitis, unspecified] Chronic Other upper respiratory infections (3 sources) Sore throat symptom; Translations: [Acute pharyngitis, unspecified] 10-07-2022 Episodic Poisoning by nonmedicinal substances (3 sources) Toxic effect of carbon monoxide from other source, undetermined, initial encounter; Translations: [Toxic effect of carbon monoxide from other source, undetermined, initial encounter] Onset: 2 Episodic Residual codes; unclassified (20 sources) Sleep apnea; Translations: [Sleep apnea, unspecified] Onset: 9 11-25-2008 Chronic Retinal detachments; defects; vascular occlusion; and retinopathy (20 sources) Age related macular degeneration; Translations: [Unspecified macular degeneration] Onset: 8 12-18-2007 Chronic Schizophrenia and other psychotic disorders (20 sources) Schizophrenia; Translations: [Other specified types of schizophrenia] Onset: 4 05-02-2008 Chronic Skin and subcutaneous tissue infections (3 sources) Paronychia of finger of left hand; Translations: [Cellulitis of left finger] Onset: 3 01-08-2023 Episodic Unclassified (20 sources) Type 2 diabetes mellitus without complication; Translations: [Diabetes mellitus type 2, uncontrolled, without complications] Onset: 8 03-01-2021 Unclassified (1 source) Subacute cough; Translations: [Subacute cough] Onset: 3 Unclassified (1 source) Acute cough; Translations: [Acute cough] Onset: 3 Viral infection (1 source) Viral disease; Translations: [Viral infection, unspecified] 01-09-2023 Episodic Past or Other Problems Problem Classification Problem Date Documented Da te Episodic/Chronic Abdominal hernia (20 sources) Hernia of anterior abdominal wall; Translations: [Ventral hernia without obstruction or gangrene] Onset: 10-06-2011 09-15-2016 Episodic Abdominal pain (1 source) Right lower quadrant pain; Translations: [Groin pain, right] Onset: 06-28-2022 Episodic Complication of device; implant or graft (20 sources) Mechanical complication of [place]; Translations: [Breakdown (mechanical) of infusion catheter, initial encounter] Onset: 04-22-2015 04-22-2015 Episodic Complications of surgical procedures or medical care (20 sources) Small intestine anastomotic leak; Translations: [Other postprocedural complications and disorders of digestive system] Onset: 03-06-2015 03-01-2021 Episodic Inflammation; infection of eye (except that caused by tuberculosis or sexually transmitteddisease) (20 sources) Conjunctivitis; Translations: [Unspecified conjunctivitis] Onset: 08-01-2021 08-02-2021 Episodic Nutritional deficiencies (20 sources) Magnesium deficiency; Translations: [Magnesium deficiency] Onset: 06-14-2020 06-14-2020 Episodic Other gastrointestinal disorders (20 sources) Disorder of abdomen; Translations: [Peritoneal adhesions (postprocedural) (postinfection)] Onset: 09-15-2016 09-15-2016 Episodic Other gastrointestinal disorders (20 sources) Enterocutaneous fistula; 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] Onset: 09-20-2016 09-20-2016 Episodic Other lower respiratory disease (20 sources) H/O: respiratory disease; Translations: [Personal history of other diseases of the respiratory system] Onset: 09-15-2016 09-15-2016 Episodic Other lower respiratory disease (1 source) Wheezing; Translations: [Wheezing] Onset: 11-01-2022 Episodic Other non-traumatic joint disorders (1 source) Other instability, right hip; Translations: [Hip instability, right] Onset: 06-28-2022 Episodic Other skin disorders (20 sources) Fistula; Translations: [Other specified disorders of the skin and subcutaneous tissue] Onset: 04-01-2015 04-01-2015 Episodic Substance-related disorders (20 sources) Continuous opioid dependence; Translations: [Opioid use, unspecified, uncomplicated] Onset: 09-15-2016 09-15-2016 Episodic Results Test Name Value Interpretation Reference Range Facil ity Vital Signs Date Time Vital Sign Value Performing Clinician Faci lity 02-13-2023 15:50-0500 Body temperature 97.2 [degF] Krislyn Aberegg PA Work Phone: [facility] 02-13-2023 15:50-0500 Body weight 86.18 kg Krislyn Aberegg PA Work Phone: [facility] 02-13-2023 15:50-0500 Diastolic blood pressure 82 mm[Hg] Krislyn Aberegg PA Work Phone: [facility] 02-13-2023 15:50-0500 Heart rate 72 /min Krislyn Aberegg PA Work Phone: [facility] 02-13-2023 15:50-0500 Respiratory rate 16 /min Krislyn Aberegg PA Work Phone: [facility] 02-13-2023 15:50-0500 SaO2% (BldA) [Mass fraction] 97 % Krislyn Aberegg PA Work Phone: [facility] 02-13-2023 15:50-0500 Systolic blood pressure 132 mm[Hg] Krislyn Aberegg PA Work Phone: [facility] 02-08-2023 13:11-0500 Body temperature 99.5 [degF] Shawn Yann KNOCKOUT MAN.MEDICAL RECORDS CUSTODIAN Work Phone: [facility] 02-08-2023 13:11-0500 Body weight 83.46 kg Shawn Yann KNOCKOUT MAN.MEDICAL RECORDS CUSTODIAN Work Phone: [facility] 02-08-2023 13:11-0500 Diastolic blood pressure 72 mm[Hg] Shawn Yann KNOCKOUT MAN.MEDICAL RECORDS CUSTODIAN Work Phone: [facility] 02-08-2023 13:11-0500 Heart rate 79 /min Shawn Yann KNOCKOUT MAN.MEDICAL RECORDS CUSTODIAN Work Phone: [facility] 02-08-2023 13:11-0500 SaO2% (BldA) [Mass fraction] 95 % Shawn Yann KNOCKOUT MAN.MEDICAL RECORDS CUSTODIAN Work Phone: [facility] 02-08-2023 13:11-0500 Systolic blood pressure 104 mm[Hg] Shawn Yann KNOCKOUT MAN.MEDICAL RECORDS CUSTODIAN Work Phone: [facility] 01-12-2023 13:31-0500 Body temperature 98.1 [degF] Annmarie Jonathan KNOCKOUT MAN.MEDICAL RECORDS CUSTODIAN Work Phone: [facility] 01-12-2023 13:31-0500 Body weight 87.09 kg Annmarie Jonathan KNOCKOUT MAN.MEDICAL RECORDS CUSTODIAN Work Phone: [facility] 01-12-2023 13:31-0500 Diastolic blood pressure 61 mm[Hg] Annmarie Jonathan KNOCKOUT MAN.MEDICAL RECORDS CUSTODIAN Work Phone: [facility] 01-12-2023 13:31-0500 Heart rate 82 /min Annmarie Jonathan KNOCKOUT MAN.MEDICAL RECORDS CUSTODIAN Work Phone: [facility] 01-12-2023 13:31-0500 Respiratory rate 20 /min Annmarie Jonathan KNOCKOUT MAN.MEDICAL RECORDS CUSTODIAN Work Phone: [facility] 01-12-2023 13:31-0500 SaO2% (BldA) [Mass fraction] 95 % Annmarie Jonathan KNOCKOUT MAN.MEDICAL RECORDS CUSTODIAN Work Phone: [facility] 01-12-2023 13:31-0500 Systolic blood pressure 119 mm[Hg] Annmarie Castillo KNOCKOUT MAN.MEDICAL RECORDS CUSTODIAN Work Phone: [facility] 01-09-2023 15:14-0500 Body temperature 97.5 [degF] [facility]OUT [facility].MEDICAL RECORDS CUSTODIAN Work Phone: [facility] 01-09-2023 15:14-0500 Body weight 87.54 [facility] K[facility]OUT MAN.MEDICAL RECORDS CUSTODIAN Work Phone: [facility] 01-09-2023 15:14-0500 Diastolic blood pressure 60 mm[Hg] [facility] KNOCKOUT MAN.MEDICAL RECORDS CUSTODIAN Work Phone: [facility] 01-09-2023 15:14-0500 Heart rate 76 /min [facility] KNOCKOUT MAN.MEDICAL RECORDS CUSTODIAN Work Phone: [facility] 01-09-2023 15:14-0500 Respiratory rate 16 /min [facility] KN[facility]OUT MAN.MEDICAL RECORDS CUSTODIAN Work Phone: [facility] 01-09-2023 15:14-0500 SaO2% (BldA) [Mass fraction] 98 % [facility] KNOCKOUT MAN.MEDICAL RECORDS CUSTODIAN Work Phone: [facility] 01-09-2023 15:14-0500 Systolic blood pressure 132 mm[Hg] [facility] KNOCKOUT MAN.MEDICAL RECORDS CUSTODIAN Work Phone: [facility] 01-08-2023 13:08-0500 Body temperature 97.7 [degF] Lisa Athy PA-C Work Phone: [facility] 01-08-2023 13:08-0500 Body weight 88.54 kg Lisa Athy PA-C Work Phone: [facility] 01-08-2023 13:08-0500 Diastolic blood pressure 85 mm[Hg] Lisa Athy PA-C Work Phone: [facility] 01-08-2023 13:08-0500 Heart rate 75 /min Lisa Athy PA-C Work Phone: [facility] 01-08-2023 13:08-0500 Respiratory rate 18 /min Lisa Athy PA-C Work Phone: [facility] 01-08-2023 13:08-0500 SaO2% (BldA) [Mass fraction] 94 % Lisa Athy PA-C Work Phone: [facility] 01-08-2023 13:08-0500 Systolic blood pressure 140 mm[Hg] Lisa Athy PA-C Work Phone: [facility] 11-16-2022 15:11-0400 Body weight 86.64 kg Shawn Yann KNOCKOUT MAN.MEDICAL RECORDS CUSTODIAN Work Phone: [facility] 11-16-2022 15:11-0400 Diastolic blood pressure 50 mm[Hg] Shawn Yann KNOCKOUT MAN.MEDICAL RECORDS CUSTODIAN Work Phone: [facility] 11-16-2022 15:11-0400 Heart rate 71 /min Shawn Yann KNOCKOUT MAN.MEDICAL RECORDS CUSTODIAN Work Phone: [facility] 11-16-2022 15:11-0400 SaO2% (BldA) [Mass fraction] 97 % Shawn Yann KNOCKOUT MAN.MEDICAL RECORDS CUSTODIAN Work Phone: [facility] 11-16-2022 15:11-0400 Systolic blood pressure 100 mm[Hg] Shawn Yann KNOCKOUT MAN.MEDICAL RECORDS CUSTODIAN Work Phone: [facility] 11-01-2022 11:47-0400 Body temperature 98.4 [degF] Nasima Bogner PA-C Work Phone: [facility] 11-01-2022 11:47-0400 Body weight 88.54 kg Nasima Bogner PA-C Work Phone: [facility] 11-01-2022 11:47-0400 Diastolic blood pressure 80 mm[Hg] Nasima Bogner PA-C Work Phone: [facility] 11-01-2022 11:47-0400 Heart rate 75 /min Nasima Bogner PA-C Work Phone: [facility] 11-01-2022 11:47-0400 Respiratory rate 18 /min Nasima Bogner PA-C Work Phone: [facility] 11-01-2022 11:47-0400 SaO2% (BldA) [Mass fraction] 93 % Nasima Bogner PA-C Work Phone: [facility] 11-01-2022 11:47-0400 Systolic blood pressure 122 mm[Hg] Nasima Bogner PA-C Work Phone: [facility] 10-07-2022 11:32-0400 Body temperature 98.1 [degF] Anthony Lizarraga MD Work Phone: [facility] 10-07-2022 11:32-0400 Body weight 88.91 kg Anthony Lizarraga MD Work Phone: [facility] 10-07-2022 11:32-0400 Diastolic blood pressure 76 mm[Hg] Anthony Lizarraga MD Work Phone: [facility] 10-07-2022 11:32-0400 Heart rate 90 /min Anthony Lizarraga MD Work Phone: [facility] 10-07-2022 11:32-0400 Respiratory rate 18 /min Anthony Lizarraga MD Work Phone: [facility] 10-07-2022 11:32-0400 SaO2% (BldA) [Mass fraction] 95 % Anthony Lizarraga MD Work Phone: [facility] 10-07-2022 11:32-0400 Systolic blood pressure 118 mm[Hg] Anthony Lizarraga MD Work Phone: [facility] 06-23-2022 15:52-0400 Body temperature 98.8 [degF] Steve Kenny APRN.MEDICAL RECORDS CUSTODIAN Work Phone: [facility] 06-23-2022 15:52-0400 Body weight 88.36 kg Steve Kenny APRN.MEDICAL RECORDS CUSTODIAN Work Phone: [facility] 06-23-2022 15:52-0400 Diastolic blood pressure 72 mm[Hg] Steve Kenny KNOCKOUT MAN.MEDICAL RECORDS CUSTODIAN Work Phone: [facility] 06-23-2022 15:52-0400 Heart rate 84 /min Steve Kenny KNOCKOUT MAN.MEDICAL RECORDS CUSTODIAN Work Phone: [facility] 06-23-2022 15:52-0400 Respiratory rate 16 /min Steve Kenny KNOCKOUT MAN.MEDICAL RECORDS CUSTODIAN Work Phone: [facility] [facility] 06-23-2022 15:52-0400 SaO2% (BldA) [Mass fraction] 95 % Steve Kenny KNOCKOUT MAN.MEDICAL RECORDS CUSTODIAN Work Phone: [facility] 06-23-2022 15:52-0400 Systolic blood pressure 132 mm[Hg] Steve Kenny KNOCKOUT MAN.MEDICAL RECORDS CUSTODIAN Work Phone: [facility] 04-30-2022 12:34-0500 Body temperature 99.5 [degF] Lisa Athy PA-C Work Phone: [facility] 04-30-2022 12:34-0500 Body weight 86.27 kg Lisa Athy PA-C Work Phone: [facility] 04-30-2022 12:34-0500 Diastolic blood pressure 82 mm[Hg] Lisa Athy PA-C Work Phone: [facility] 04-30-2022 12:34-0500 Heart rate 84 /min Lisa Athy PA-C Work Phone: [facility] 04-30-2022 12:34-0500 Respiratory rate 20 /min Lisa Athy PA-C Work Phone: [facility] 04-30-2022 12:34-0500 SaO2% (BldA) [Mass fraction] 96 % Lisa Athy PA-C Work Phone: [facility] 04-30-2022 12:34-0500 Systolic blood pressure 128 mm[Hg] Lisa Athy PA-C Work Phone: [facility] 01-06-2022 16:03-0400 Body temperature 98.1 [degF] Cathy Lawler VIRIDIANA.MEDICAL RECORDS CUSTODIAN Work Phone: [facility] 01-06-2022 16:03-0400 Body weight 79.38 kg Cathy Lawler VIRIDIANA.MEDICAL RECORDS CUSTODIAN Work Phone: [facility] 01-06-2022 16:03-0400 Diastolic blood pressure 78 mm[Hg] Cathy Bucky KEMP.MEDICAL RECORDS CUSTODIAN Work Phone: [facility] 01-06-2022 16:03-0400 Heart rate 74 /min Cathymagdy Lawler APRN.MEDICAL RECORDS CUSTODIAN Work Phone: [facility] 01-06-2022 16:03-0400 Respiratory rate 16 /min Cathy Lawler VIRIDIANA.MEDICAL RECORDS CUSTODIAN Work Phone: [facility] 01-06-2022 16:03-0400 SaO2% (BldA) [Mass fraction] 97 % Cathymagdy Lawler APRN.MEDICAL RECORDS CUSTODIAN Work Phone: [facility] 01-06-2022 16:03-0400 Systolic blood pressure 134 mm[Hg] Cathy Lawler VIRIDIANA.MEDICAL RECORDS CUSTODIAN Work Phone: [facility] 08-09-2021 13:14-0400 Body temperature 98.1 [degF] Nasima Bogner PA-C Work Phone: [facility] 08-09-2021 13:14-0400 Body weight 79.83 kg Nasima Bogner PA-C Work Phone: [facility] 08-09-2021 13:14-0400 Diastolic blood pressure 74 mm[Hg] Nasima Bogner PA-C Work Phone: [facility] 08-09-2021 13:14-0400 Heart rate 87 /min Nasima Bogner PA-C Work Phone: [facility] 08-09-2021 13:14-0400 Respiratory rate 20 /min Nasima Bogner PA-C Work Phone: [facility] 08-09-2021 13:14-0400 SaO2% (BldA) [Mass fraction] 93 % Nasima Hunter PA-C Work Phone: [facility] 08-09-2021 13:14 Systolic blood pressure 122 mm[Hg] Nasima Hunter PA-C Work Phone: [facility] Encounters Encounter Date Encounter Type Care Provider Facility Start: 03-31-2023 End: 03-31-2023 ambulatory SUZANNA ESCALANTE Facility: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 Work Phone: Start: 01-09-2023 COVID & INFLUENZA A/ B & RSV NAAT, ROUTINE Arvind Mcleod KNOCKOUT MAN.MEDICAL RECORDS CUSTODIAN Work Phone: Start: 01-09-2023 Iadna respiratry pro be & rev trnscr 3-5 targets Arvind Mcleod KNOCKOUT MAN.MEDICAL RECORDS CUSTODIAN Work Phone: Start: 01-09-2023 Sars-cov-2 detection by dna/rna Arvind Mcleod KNOCKOUT MAN.MEDICAL RECORDS CUSTODIAN Work Phone: Start: 01-08-2023 Cul bact xcpt urine blood/stool aerobic isol Lisa Maria De Jesus Tinoco PA-C Work Phone: Start: 06-23-2022 Urnls dip stick/tabl et rgnt auto w/o microscopy Cathy Lawler KNOCKOUT MAN.MEDICAL RECORDS CUSTODIAN Work Phone: Start: 08-06-2021 Xtrnl ocular photog w/i&r docmt medical progre Marisol Fry MD Work Phone: Start: 08-03-2021 Ophthalmic ultrasoun d dx b-scan w/wo a-scan Marisol Fry MD Work Phone: Start: 01-24-2018 Adult depression scr eening assessment Artem Hunter MD Work Phone: Start: 11-20-2014 Mammography Artem devi MD Work Phone: Start: 03-06-1999 Colonoscopy Artem devi MD Work Phone: Plan of Treatment Date Care Activity Detail Author Start: 03-27-2024 Annual PCP Team Hand Striper robel Disease Visit Annual PCP Team Chronic Disease Visit [facility] Start: 03-10-2024 Glaucoma screening Dilated Retinal E xam [facility] Start: 02-09-2024 Annual PCP Team Hand Striper robel Disease Visit Annual PCP Team Chronic Disease Visit [facility] Start: 12-23-2023 3 comp foot exam completed Diabetic Foot Exam [facility] Start: 12-23-2023 Diabetic foot examination Diabetic Foot Exam [facility] Start: 11-17-2023 Annual PCP Team Hand Striper robel Disease Visit Annual PCP Team Chronic Disease Visit [facility] Start: 06-29-2023 ANNUAL PCP TEAM SUPERVISOR CELLARS ROBEL DISEASE VISIT ANNUAL PCP TEAM CHRONIC DISEASE VISIT [facility] Start: 06-08-2023 ANNUAL PCP TEAM SUPERVISOR CELLARS ROBEL DISEASE VISIT ANNUAL PCP TEAM CHRONIC DISEASE VISIT [facility] Start: 06-08-2023 BP CONTROLLED (<130/80) BP CON TROLLED (<130/80) [facility] Start: 03-06-2023 Depression Assessment Depression Ass essment [facility] Start: 11-16-2022 End: 01-16-2023 Bacteria identified in Throat by Culture [facility] Work Phone: Immunizations Immunization Date Immunization Notes Care Provider Fa yobanity 12-22-2020 influenza, injectabl e, quadrivalent, contains preservative Artem Hunter MD Work Phone: [facility] 12-22-2020 influenza virus vacc ine, unspecified formulation Shawn Veronica APRN.CNP Work Phone: [facility] 04-17-2020 influenza, injectabl e, quadrivalent, contains preservative Artem Hunter MD Work Phone: [facility] 12-07-2018 influenza, injectabl e, quadrivalent, contains preservative Artem Hunter MD Work Phone: [facility] 01-05-2018 influenza, injectabl e, quadrivalent, contains preservative Artem Hunter MD Work Phone: [facility] 12-15-2015 influenza, injectabl e, quadrivalent, contains preservative Artem Hunter MD Work Phone: [facility] 12-17-2014 influenza, injectabl e, quadrivalent, contains preservative Artem Hunter MD Work Phone: [facility] 12-13-2013 influenza, seasonal, injectable Artem Hunter MD Work Phone: [facility] 11-26-2012 influenza virus vacc ine, unspecified formulation Artem Hunter MD Work Phone: [facility] 08-06-2012 tetanus toxoid, redu xavier diphtheria toxoid, and acellular pertussis vaccine, adsorbed Artem Hunter MD Work Phone: [facility] Work Phone: 01-13-2012 influenza virus vacc ine, unspecified formulation Artem Hunter MD Work Phone: [facility] 09-15-2010 pneumococcal polysaccharide vaccine, 23 valent Artem Hunter MD Work Phone: [facility] 03-06-2010 pneumococcal polysaccharide vaccine, 23 valent Artem Hunter MD Work Phone: [facility] 03-06-2010 pneumococcal vaccine , unspecified formulation Tiff Pearson MD Work Phone: [facility] 11-25-2008 influenza virus vacc ine, unspecified formulation Artem Hunter MD Work Phone: [facility] 03-06-2007 pneumococcal polysaccharide vaccine, 23 valent Artem Hunter MD Work Phone: [facility] 03-06-2007 pneumococcal vaccine , unspecified formulation Tiff Pearson MD Work Phone: [facility] 01-05-2004 influenza virus vacc ine, unspecified formulation Artme Hunter MD Work Phone: [facility] 12-05-2003 tetanus and diphther ia toxoids, adsorbed, preservative free, for adult use (2 Lf of tetanus toxoid and 2 Lf of diphtheria toxoid) Artem Hunter MD Work Phone: [facility] Payers Date Payer Category Payer Private Health Insurance [id number] 2022 Private Health Insurance [id number] 2020 Medicaid [facility] MEDICAID [facility] [employer] MEDICAID [id number] 2020-Present [phone] [address] [place] [address] Medicaid [id number] 2020 Medicaid [id number] 1958 Unknown [id number] 1958 Unknown [id number] Social History Date Type Detail Facility Start: 09-14-2010 End: 04-30-2022 Tobacco smoking status NHIS Ex-smoker [facility] Start: 1965 End: 08-27-2010 History of tobacco use Current smoker [facility] Start: 1965 End: 08-27-2010 History of tobacco use Cigarette Smoker [facility] Start: 09-14-2010 End: 09-21-2022 Cigarettes smoked current (pack per day) - Reported 2 [facility] Work Phone: Start: 09-14-2010 End: 01-06-2022 Tobacco use and exposure Smokeless tobacco non-user [facility] Start: 05-19-2021 End: 03-31-2023 Alcohol intake Current non-drinker of alcohol (finding) [facility] Start: 1960 Sex Assigned At Not on file [facility] Start: 05-21-2021 End: 01-06-2022 Exposure to SARS-CoV-2 (event) Not sure [facility] Start: 08-03-2021 History SDOH Financial 5 [facility] Start: 08-03-2021 History SDOH Food Worry 1 [facility] Start: 08-03-2021 History SDOH Transpo rt Med 2 [facility] Start: 04-30-2022 Tobacco use and exposure User of smokeless tobacco [facility] Start: 04-30-2022 Tobacco Comment Medical [facility] Start: 08-03-2021 End: 09-21-[address] [facility] Work Phone: How hard is it for y ou to pay for the very basics like food, housing, medical care, and heating Not hard at all [facility] Work Phone: (I/We) worried wheth er (my/our) food would run out before (I/we) got money to buy more. Never true [facility] Work Phone: In the past 12 month s, was there a time when you were not able to pay the mortgage or rent on time? No [facility] Work Phone: Medical Equipment Procedure Code Equipment Code Equipment Origin al Text Equipment Identifier Dates Tube 76mm 6.4mm 10.8mm Lp Cuf - [id number] Start: 03-12-2015 Tube Shiley 10.8 mm 15mm 6.4mm 6 Green 76mm Tracheostomy Cuffless Inner - [id number] Start: 04-22-2015 Start: 07-24-2017 End: 11-23-2022 Goals Date Patient Goal Desired Activity /State Personal health goal Personal health goal Clinical Notes 07-01-2015 to 04-02-2023 Telephone Encounter - Tiff Pearson MD - 04/02/2023 8:23 PM ESTTelephone Encounter - Destiny Veloz RN - 03/31/2023 4:52 PM Orestes Alonzo PA - 02/13/2023 4:11 PM EST Note Date & Type Note Facility 04-02-2023 Miscellaneous Notes There is another telephone encounter about this. See that one too Pt called in and was asking for the results of her pain panel and tox panel. I told her it looked like they were both negative, but I would have Dr Pearson look at them as well. 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 documented in this encounter [facility] 02-13-2023 History of Presen t illness Narrative This note was created using eVestment. Subjective Christopher Hobson is a 62 year old female. HPI 62-year-old female presents for cough x 1 month since getting COVID. She did take Paxlovid. She states she is coughing up some phlegm. She has history of asthma. She has been using her inhalers at home. No increase in shortness of breath. No chest pain. Patient did have COVID 1 month ago and has continued with cough since then. She denies any fevers. She does occasionally get some chills. No congestion. No vomiting or diarrhea. No other complaints. PAST MEDICAL HISTORY Diagnosis Date Acute anaphylaxis 09/15/2016 Acute peptic ulcer, unspecified site, without mention of hemorrhage, perforation, or obstruction 1999 Asthma Bowel disease Colon polyps Bowel obstruction (HCC) 02/24/2015 Presented to hospital [...] drain, and TPN on transfer to [facility] Chronic obstructive pulmonary disease (COPD) ([facility]) 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 02/05/2010 Diabetes (HCC) 2000 On insulin 2015 Dyslipidemia Encephalopathy in sepsis 02/28/2015 CT head and EEG done to confirm Endogenous endophthalmitis Hematoma 06/17/2016 Hematuria, unspecified 04/09/2008 UA with blood in 2-09: need to repeat as cloudy with protein as well Hypotension 02/25/2015 Hypotensive despite fluid resuscitation, remains on pressors. Secondary to E.coli bactremia -- continue norepinephrine and vasopressin to maintain MAP 65 Lunate fracture, closed 11/22/2012 MALIGNANT NEOPLASM COLON NOS(aka COLON) 10/09/2003 Ostomy in LLQ since surgical intervention in 2004 per pt Reviewed eval with Dr. 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 Diabetes on metformin Pain in limb 02/05/2010 Paranoid schizophrenia, chronic condition ([facility]) 1985 Peptic ulcer, unspecified site, unspecified as acute or chronic, without mention of hemorrhage, perforation, or obstruction 10/11/2004 Personal history of colonic polyps 2000 Physical deconditioning 03/14/2015 Due to prolonged ICU stay -- PT/OT consulted -- lift OOB today with lift team Post-op pain 02/25/2015 Fentanyl PRN Postoperative anemia due to acute blood loss 02/25/2015 Hgb 8.8 today, no active bleeding Last transfused 03/14 -- follow daily CBC and coags S/P colostomy ([facility]) SBO (small bowel obstruction) ([facility]) 09/11/2016 Skin lesion 03/09/2015 Skin sloughing on LEs with blisters, indeterminate purple lesions on back -> now improving Per Dermatology consult: linear erosions are most likely irritant contact dermatitis or pressure induced erosions. In addition there are small edema bullae on the abdominal wall Both require gentle wound care and emollients such as aquaphor or petroleum jelly -- monitor Tracheostomy in place ([facility]) Placed 2015 after prolonged respiratory failure, unable to liberate from vent. 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 PAST SURGICAL HISTORY Procedure Laterality Date ANESTH,VAGINAL DELIVERY 1977,1979,1985, 1986 w/ episiotomies APPENDECTOMY DILATION & CURETTAGE DX&/THER NONOBSTETRIC 1978 Dilation & curettage INDUCED DILATION AND CURETTAGE LIG/TRNSXJ FLP TUBE ABDL/VAG APPR UNI/BI Tubal ligation NEUROPLASTY &/TRANSPOS MEDIAN NRV CARPAL TUNNE 2006 Carpal tunnel decomp right NEUROPLASTY &/TRANSPOS MEDIAN NRV CARPAL TUNNE Carpal tunnel decomp left PAST SURGICAL HISTORY OF 2004 Abdominal surgeries for hernia repairs PAST SURGICAL HISTORY OF 2008 Ileostomy PAST SURGICAL HISTORY OF 09/12/2016 Underwent ex lap, takedown of prior ostomy, RONEY and creation of new end ileostomy on 09/12/16 for parastomal hernia with closed loop hernia PAST SURGICAL HISTORY OF 09/28/2016 Permanent Pacemaker Placement for complete heart block REDUCE BOWEL OBSTRUCTION Late February 2015 acute bowel obstruction. SB resection. REVJ COLOSTOMY COMP RCNSTJ IN-DEPTH SPX 2000 3-4 surgeries TONSILLECTOMY PRIMARY/SECONDARY AGE 10/> TRACHEOSTOMY HX 03/12/2015 protracted critical stay, failure to wean after bowel obtruction ALLERGIES Goss, Lemon, Pears, Cephalosporins, Ciprofloxacin, Codeine, Diclofenac, Dilaudid [Hydromorphone (Bulk)], Lipitor [Atorvastatin Calcium], Lyrica [Pregabalin], Opioids - Morphine Analogues, Penicillins, Percocet [Oxycodone-Acetaminophen], Soap, Sulfa (Sulfonamide Antibiotics), Vicodin [Hydrocodone-Acetaminophen], and Zithromax [Azithromycin] MEDICATIONS doxycycline (VIBRA-TABS) 100 mg tablet Take 1 tablet by mouth two times a day for 14 days. nystatin (MYCOSTATIN) powder Apply 1 application to affected area four times daily. melatonin 10 mg tab Take 1 tablet by mouth at bedtime as needed for insomnia. pravastatin (PRAVACHOL) 40 mg tablet Take 1 tablet by mouth once daily. [facility] 1. Convatec Flanges Ref# [id number] 10 to a box, 3 boxes 2. Allkare Protective Barrier Wipes Ref # [id number] 1 box = 50 wipes, 3 boxes 3. Convatec Adhesive Glue Ref # [id number] 2 oz tube, 3 tubes 4. Convatec Stoma Adhesive Powder Ref # [id number] 1 oz bottle, 3 bottles 5. Convatec Stoma Bags Ref # [id number] 10 in a box, 3 boxes benzonatate (TESSALON PERLE) 100 mg capsule Take 2 capsules by mouth three times a day as needed. fluticasone-salmeterol (ADVAIR DISKUS) 100-50 mcg/dose inhaler Inhale 1 Puff as instructed two times a day. Rinse mouth out after use with water. omeprazole (PRILOSEC) 20 mg capsule TAKE ONE CAPSULE BY MOUTH EVERY DAY 30 MINUTES BEFORE breakfast NUCYNTA 50 mg three times a day. gabapentin (NEURONTIN) 300 mg capsule blood sugar diagnostic (BLOOD GLUCOSE TEST) test strip Test blood sugar(s) 4 times daily and as needed as directed. Dx: Type 2 DM - Uncontrolled . Insulin: Yes ketoconazole (NIZORAL) 2 % cream Apply 1 application to affected area once daily. as needed hydrocortisone 2.5 % cream Apply 1 application to affected area twice daily as needed. Location: neck (reaction to tape adhesive) May also use for poison tania. Use up to 14 days per episode of rash. triamcinolone acetonide (KENALOG) 0.1 % cream Apply 1 application to affected area three times daily. Apply sparingly to area for rash/itching till rash resolves. For contact dermatitis Lancets lancets Test blood sugar(s) 1 times daily and as needed. Dx: Type 2 DM - Uncontrolled Insulin: Yes alcohol swabs (SURE-PREP ALCHOLOL PREP PADS) Test blood sugars 4 x's daily. Dx: E11. Insulin: Yes insulin glargine (LANTUS SOLOSTAR U-100 INSULIN) 100 unit/mL (3 mL) Inject 18 Units subcutaneously daily at bedtime AND 2 Units daily at bedtime. Adjust as directed (2 units to prime pen needle. miconazole (CADENCE ANTIFUNGAL) 2 % cream Apply 1 application to affected area twice daily. To perirectal and buttocks area clotrimazole (LOTRIMIN) 1 % cream Apply to affected area twice daily. guaiFENesin (MUCINEX) 600 mg 12 hr tablet Take 2 tablets by mouth twice daily. INGREZZA 80 mg capsule Take 1 tablet by mouth once daily. glimepiride (AMARYL) 4 mg tablet Take 1 tablet by mouth daily with breakfast. Patient may take an extra half pill once a day for blood sugars over 200. diclofenac (VOLTAREN ARTHRITIS PAIN) 1 % topical gel Apply 2 g to affected area four times daily. magnesium oxide (MAG-OX) 400 mg (241.3 mg magnesium) tablet Take 1 tablet by mouth once daily. fluticasone (FLONASE) 50 mcg/actuation nasal spray Use 2 Sprays in each nostril once daily. Rinse mouth after use. ipratropium-albuterol (DUONEB) 0.5 mg-3 mg(2.5 mg base)/3 mL nebu Inhale 3 mL as instructed four times daily as needed (wheezing). Use over 5-15minutes per nebulizer. insulin needles, DISPOSABLE, (PEN NEEDLE) 31 gauge x 5/16 Use one needle per dose (Lantus and Humalog). 5 per day. Nebulizer and Compressor For Neb 1 Each as needed (Use as directed for treatment of asthma). Nebulizer Accessories [facility] Ne[place] new nebulizer mask, hose and supplies. (J45.20) Intermittent asthma without complication prednisoLONE acetate (PRED FORTE) 1 % ophthalmic suspension Use 1 Drop in the right eye four times daily. blood sugar diagnostic (TRUE METRIX GLUCOSE TEST STRIP) test strip Check blood sugar 4 times daily. DX: E11.65. Insulin : yes vancomycin 25 mg/mL ophthalmic drops ([facility]) Use 1 Drop in the right eye every 2 hours. cefTAZidime ophthalmic solution 2.5% (25 mg/mL) (IP-CPD) Use 1 Drop in the right eye every 4 hours while awake. albuterol HFA (PROVENTIL HFA, VENTOLIN HFA) 90 mcg/actuation inhaler Inhale 2 Puffs as instructed every 4 hours as needed. Blood-Glucose Meter (TRUE METRIX GLUCOSE METER) Testing one time daily and as needed DX E11.65 Insulin YES Blood-Glucose Meter (ONETOUCH VERIO METER) Test blood sugar 4 times daily. Dx: Type 2 DM. Uncontrolled E11.65. Insulin: yes. blood sugar diagnostic (ONETOUCH VERIO TEST STRIPS) test strip Test blood sugar 4 times daily. Dx: Type 2 DM. Uncontrolled E11.65. Insulin: yes Zinc Oxide 40 % oint Apply to affected area as needed. Ostomy Supplies (ADHESIVE REMOVER WIPES) swab All Care brand. Use as directed fluPHENAZine (PROLIXIN) 1 mg tablet Take 3 mg by mouth once daily. blood sugar diagnostic (BLOOD GLUCOSE TEST) test strip Test blood sugar(s) 1 times daily and as needed. Dx: Type 2 DM - Uncontrolled E11.65 Insulin: Yes Nebulizer Accessories [facility] [place] Needs new nebulizer mask, hose and supplies. (J45.20) Intermittent asthma without complication phenazopyridine (PYRIDIUM) 100 mg tablet Take 1 tablet by mouth three times daily as needed. Nebulizer New (not refurbished) NEBULIZER FOR HOME USE with Duoneb 4 x a day. DX: J45.909, Z87.09. Lifetime supplies of mask/tubing, patient has tracheostomy. tapentadol (NUCYNTA) 75 mg tab Take 50 mg by mouth three times daily. Taking 1 three times a day per Dr Trevizo. blood sugar diagnostic (FREESTYLE INSULINX) test strip Test blood sugar(s) 4 times daily and as needed. Dx: Type 2 DM - Uncontrolled E11.65 Insulin: Yes Adhesive Tape (DUR[employer]ORE [employer]GICAL) 2 X 10 -yard tape Use for dressings for healing tracheostomy site. traZODone (DESYREL) 100 mg tablet Take 3 tablets by mouth daily at bedtime. ([facility]) topiramate (TOPAMAX) 100 mg tablet Take 1 tablet by mouth once daily. Per psychiatrist (Patient taking differently: Take 300 mg by mouth daily at bedtime. Per psychiatrist) VRAYLAR 3 mg cap Take 3 mg by mouth daily at bedtime. white petrolatum-mineral oil (EUCERIN) cream Apply 1 application to affected area as needed for Dry Skin (all dry skin areas). Lidocaine-Hydrocortisone Ac 3-0.5 % crea by RECTAL route twice daily for 14 days. FAMILY HISTORY Problem Relation Age of Onset other (Pneumonia) Mother Heart Father Thyroid Daughter Thyroid Daughter Asthma No Family History Cancer No Family History No lung cancer. COPD No Family History Social History Tobacco Use Smoking status: Former Packs/day: 2.00 Years: 45.00 Additional pack years: 0.00 Total pack years: 90.00 Types: Cigarettes Start date: 1965 Quit date: 08/27/2010 Years since quittin.4 Smokeless tobacco: Current Tobacco comments: Medical Vaping Use Vaping Use: Never used Substance Use Topics Alcohol use: No Drug use: Not Currently Types: Marijuana Comment: Cocaine abuse, quit before 1999. Medical Marijuana Review of Systems Constitutional: Positive for chills. Negative for fever. HENT: Negative for congestion, ear pain and sore throat. Respiratory: Positive for cough. Negative for shortness of breath. Cardiovascular: Negative for chest pain. Gastrointestinal: Negative for diarrhea and vomiting. Objective BP 132/82 Pulse 72 Temp 36.2 C (97.2 F) Resp 16 Wt 86.2 kg (190 lb) SpO2 97% BMI 30.67 kg/m Physical Exam Vitals and nursing note reviewed. Constitutional: General: She is not in acute distress. Appearance: Normal appearance. She is not toxic-appearing. HENT: Right Ear: Tympanic membrane and ear canal normal. Left Ear: Tympanic membrane and ear canal normal. Nose: Nose normal. Mouth/Throat: Mouth: Mucous membranes are moist. Pharynx: No oropharyngeal exudate or posterior oropharyngeal erythema. Eyes: Conjunctiva/sclera: Conjunctivae normal. Cardiovascular: Rate and Rhythm: Normal rate and regular rhythm. Pulmonary: Effort: Pulmonary effort is normal. Breath sounds: Normal breath sounds. No wheezing, rhonchi or rales. Neurological: Mental Status: She is alert. Assessment and Plan ASSESSMENT/PLAN: 1. Subacute cough - ICD9: 786.2, ICD10: R05.2 -Cough x 1 month since having COVID. Will get CXR to rule out post COVID-pneumonia. Lungs clear on exam. No wheezing. Pulse ox normal. - XR CHEST 2V FRONTAL/LAT -Chest x-ray reveals no acute abnormality. -Suspect lingering cough from COVID. -Continue inhalers and cough suppressants at home. -Follow-up with PCP if no improvement. Diagnosis and treatment plan were discussed and questions were answered to the patient's satisfaction. Pt acknowledged understanding of concepts and follow up plan. Specific signs and symptoms that would indicate the need for higher level of care were discussed in detail warranting prompt ER evaluation. PEG Dyer documented in this encounter [facility] 02-10-2023 Miscellaneous Notes Faxed. Zenaida Donnelly Ma Form signed, please fax back. Thank you! Type of letter/form/fax request - ostomy supply order form Form received from fax on 1 floor and placed on MD desk (Shawn Veronica's) for completion. Completed form needs to be faxed to [facility]. Route to CT when form completed for processing documented in this encounter [facility] 02-08-2023 Instructions Shawn Veronica APRN.CNP - 02/08/2023 1:30 PM EST Hold magnesium while on the antibiotic. documented in this encounter [facility] 02-08-2023 History of Presen t illness Narrative SUBJECTIVE Christopher Hobson is a 62 year old female here today for acute concern. Chief Complaint Patient presents with: Rectal Problem: on right cheek and very sore has been treated with Butt Paste HPI Christopher Hobson is a 62 year old female. Here today acutely for concerns of a lump on her butt cheek area. Onset was about 3 weeks ago. Sore. Putting cream on this. Located near her rectum. Her medications were reviewed today and her list is now up to date. Medications Current Outpatient Medications Medication Sig melatonin 10 mg tab Take 1 tablet by mouth at bedtime as needed for insomnia. pravastatin (PRAVACHOL) 40 mg tablet Take 1 tablet by mouth once daily. benzonatate (TESSALON PERLE) 100 mg capsule Take 2 capsules by mouth three times a day as needed. fluticasone-salmeterol (ADVAIR DISKUS) 100-50 mcg/dose inhaler Inhale 1 Puff as instructed two times a day. Rinse mouth out after use with water. omeprazole (PRILOSEC) 20 mg capsule TAKE ONE CAPSULE BY MOUTH EVERY DAY 30 MINUTES BEFORE breakfast gabapentin (NEURONTIN) 300 mg capsule ketoconazole (NIZORAL) 2 % cream Apply 1 application to affected area once daily. as needed hydrocortisone 2.5 % cream Apply 1 application to affected area twice daily as needed. Location: neck (reaction to tape adhesive) May also use for poison tania. Use up to 14 days per episode of rash. triamcinolone acetonide (KENALOG) 0.1 % cream Apply 1 application to affected area three times daily. Apply sparingly to area for rash/itching till rash resolves. For contact dermatitis insulin glargine (LANTUS SOLOSTAR U-100 INSULIN) 100 unit/mL (3 mL) Inject 18 Units subcutaneously daily at bedtime AND 2 Units daily at bedtime. Adjust as directed (2 units to prime pen needle. miconazole (CADENCE ANTIFUNGAL) 2 % cream Apply 1 application to affected area twice daily. To perirectal and buttocks area clotrimazole (LOTRIMIN) 1 % cream Apply to affected area twice daily. guaiFENesin (MUCINEX) 600 mg 12 hr tablet Take 2 tablets by mouth twice daily. INGREZZA 80 mg capsule Take 1 tablet by mouth once daily. glimepiride (AMARYL) 4 mg tablet Take 1 tablet by mouth daily with breakfast. Patient may take an extra half pill once a day for blood sugars over 200. magnesium oxide (MAG-OX) 400 mg (241.3 mg magnesium) tablet Take 1 tablet by mouth once daily. fluticasone (FLONASE) 50 mcg/actuation nasal spray Use 2 Sprays in each nostril once daily. Rinse mouth after use. ipratropium-albuterol (DUONEB) 0.5 mg-3 mg(2.5 mg base)/3 mL nebu Inhale 3 mL as instructed four times daily as needed (wheezing). Use over 5-15minutes per nebulizer. albuterol HFA (PROVENTIL HFA, VENTOLIN HFA) 90 mcg/actuation inhaler Inhale 2 Puffs as instructed every 4 hours as needed. Zinc Oxide 40 % oint Apply to affected area as needed. fluPHENAZine (PROLIXIN) 1 mg tablet Take 3 mg by mouth once daily. tapentadol (NUCYNTA) 75 mg tab Take 50 mg by mouth three times daily. Taking 1 three times a day per Dr Trevizo. traZODone (DESYREL) 100 mg tablet Take 3 tablets by mouth daily at bedtime. ([facility]) topiramate (TOPAMAX) 100 mg tablet Take 1 tablet by mouth once daily. Per psychiatrist (Patient taking differently: Take 300 mg by mouth daily at bedtime. Per psychiatrist) VRAYLAR 3 mg cap Take 3 mg by mouth daily at bedtime. white petrolatum-mineral oil (EUCERIN) cream Apply 1 application to affected area as needed for Dry Skin (all dry skin areas). doxycycline (VIBRA-TABS) 100 mg tablet Take 1 tablet by mouth two times a day for 14 days. nystatin (MYCOSTATIN) powder Apply 1 application to affected area four times daily. Ostomy Supplies [facility] [place] 1. Convatec Flanges Ref# [id number] 10 to a box, 3 boxes 2. Allkare Protective Barrier Wipes Ref # [id number] 1 box = 50 wipes, 3 boxes 3. Convatec Adhesive Glue Ref # [id number] 2 oz tube, 3 tubes 4. Convate Stoma Adhesive Powder Ref # [id number] 1 oz bottle, 3 bottles 5. Convate Stoma Bags Ref # [id number] 10 in a box, 3 boxes NUCYNTA 50 mg three times a day. (Patient not taking: Reported on 02/08/2023) blood sugar diagnostic (BLOOD GLUCOSE TEST) test strip Test blood sugar(s) 4 times daily and as needed as directed. Dx: Type 2 DM - Uncontrolled E11.65 Insulin: Yes Lancets lancets Test blood sugar(s) 1 times daily and as needed. Dx: Type 2 DM - Uncontrolled E11.65 Insulin: Yes alcohol swabs (SURE-PREP ALCHOLOL PREP PADS) Test blood sugars 4 x's daily. Dx: E11.65 Insulin: Yes diclofenac (VOLTAREN ARTHRITIS PAIN) 1 % topical gel Apply 2 g to affected area four times daily. (Patient not taking: Reported on 02/08/2023) insulin needles, DISPOSABLE, (PEN NEEDLE) 31 gauge x 07/19 Use one needle per dose (Lantus and Humalog). 5 per day. Nebulizer and Compressor For Neb 1 Each as needed (Use as directed for treatment of asthma). Nebulizer Accessories [facility] [place] Needs new nebulizer mask, hose and supplies. (J45.20) Intermittent asthma without complication prednisoLONE acetate (PRED FORTE) 1 % ophthalmic suspension Use 1 Drop in the right eye four times daily. (Patient not taking: Reported on 02/08/2023) blood sugar diagnostic (TRUE METRIX GLUCOSE TEST STRIP) test strip Check blood sugar 4 times daily. DX: E11.65. Insulin : yes vancomycin 25 mg/mL ophthalmic drops ([facility]) Use 1 Drop in the right eye every 2 hours. (Patient not taking: Reported on 02/08/2023) cefTAZidime ophthalmic solution 2.5% (25 mg/mL) (IP-CPD) Use 1 Drop in the right eye every 4 hours while awake. (Patient not taking: Reported on 02/08/2023) Blood-Glucose Meter (TRUE METRIX GLUCOSE METER) Testing one time daily and as needed DX E11.65 Insulin YES Lidocaine-Hydrocortisone Ac 3-0.5 % crea by RECTAL route twice daily for 14 days. Blood-Glucose Meter (ONETOUCH VERIO METER) Test blood sugar 4 times daily. Dx: Type 2 DM. Uncontrolled E11.65. Insulin: yes. blood sugar diagnostic (ONETOUCH VERIO TEST STRIPS) test strip Test blood sugar 4 times daily. Dx: Type 2 DM. Uncontrolled E11.. Insulin: yes Ostomy Supplies (ADHESIVE REMOVER WIPES) swab All Care brand. Use as directed blood sugar diagnostic (BLOOD GLUCOSE TEST) test strip Test blood sugar(s) 1 times daily and as needed. Dx: Type 2 DM - Uncontrolled Insulin: Yes Nebulizer Accessories [facility] [place] Needs new nebulizer mask, hose and supplies. (J45.20) Intermittent asthma without complication phenazopyridine (PYRIDIUM) 100 mg tablet Take 1 tablet by mouth three times daily as needed. (Patient not taking: Reported on 02/08/2023) Nebulizer New (not refurbished) NEBULIZER FOR HOME USE with Duoneb 4 x a day. DX: J45.909, Z87.09. Lifetime supplies of mask/tubing, patient has tracheostomy. blood sugar diagnostic (FREESTYLE INSULINX) test strip Test blood sugar(s) 4 times daily and as needed. Dx: Type 2 DM - Uncontrolled . Insulin: Yes Adhesive Tape (DURAPORE SURGICAL) 2 X 10 -yard tape Use for dressings for healing tracheostomy site. No current facility-administered medications for this visit. ALLERGIES Allergen Reactions Goss Other: See Comments Tongue blisters Lemon Other: See Comments Tongue blisters. Pears Unknown Cephalosporins itching Ciprofloxacin Anaphylaxis It was used with flagyl at the same time so uknown which is the cause Codeine rash swelling Diclofenac rash Dilaudid [Hydromorp* Itching Lipitor [Atorvastat* Itching Lyrica [Pregabalin] Swelling Opioids - Morphine * rash Penicillins Anaphylaxis ?anaphylaxis, patient tolerates zosyn Percocet [Oxycodone* Itching Soap Sulfa (Sulfonamide * Rash Vicodin [Hydrocodon* Rash Zithromax [Azithrom* Rash ACTIVE PROBLEM LIST Asthma (D priority) Comment: No wheezing on exam -- continue scheduled Duonebs Diabetes Mellitus Type 2, Uncontrolled, Without Complications - 12/18/2007 (G priority) Comment: Type 2 DM, uncontrolled at baseline -- lantus 10 units QD -- Continue TPN with 100 units of insulin in bag -- Continue SSI 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 Magnesium Deficiency - 06/14/2020 Comment: Replacement discussed. Continue Chronic Obstructive Pulmonary Disease (Copd) ([facility]) Obesity, Class II, Bmi 35-39.9 - 02/01/2018 Class 1 Obesity Due to Excess Calories With Serious Comorbidity and Body Mass Index (Bmi) of 33.0 to 33.9 in Adult - 11/08/2016 Complete Heart Block (Hcc) - 09/29/2016 Cardiac Pacemaker in Situ - 09/29/2016 Right Bundle Branch Block - 09/29/2016 Hypoalbuminemia - 09/29/2016 Hypoproteinemia ([facility]) - 09/29/2016 Enterocutaneous Fistula - 09/20/2016 Abdominal Adhesions - 09/15/2016 Chronic, Continuous Use of Opioids - 09/15/2016 History of Tracheal Stenosis - 09/15/[address] ([facility]) - 09/14/2016 Hypomagnesemia - 08/27/2015 Scruggs Catheter Dysfunction ([facility]) - 04/22/2015 Tracheostomy Care ([facility]) - 04/22/2015 Fistula - 04/01/2015 Small Intestinal Anastomotic Leak - 03/06/2015 Comment: Now controlled fistula. Pouched. Ventral Hernia - 10/06/2011 Sleep Apnea - 11/25/2008 Comment: Declines testing for cost issues Hyperlipidemia - 05/07/2008 Comment: LDL 121, HDL 52, TG 240 in 05-12: rec Pravastatin 20 mg TG 482, HDL 44 in 08-12 LDL 122, HDL 51, TG 286 in 11-12: likely NC as same level prior to rec in 05-12 with Pravastatin Macular Degeneration (Senile) of Retina, Unspecified - 12/18/2007 Comment: Sees Dr. Guy as needed as of 12-11 Other Specified Types of Schizophrenia - 10/09/2003 Comment: Not seeing a Psychiatrist for cost issues as of 12-11 Will fill Abilify until 08-12 as pt has appt with psychiatry Social History Tobacco Use Smoking status: Former Packs/day: 2.00 Years: 45.00 Additional pack years: 0.00 Total pack years: 90.00 Types: Cigarettes Start date: 1965 Quit date: 08/27/2010 Years since quittin.4 Smokeless tobacco: Current Tobacco comments: Medical Vaping Use Vaping Use: Never used Substance Use Topics Alcohol use: No Drug use: Not Currently Types: Marijuana Comment: Cocaine abuse, quit before 1999. Medical Marijuana Review of Systems Constitutional: Negative. Respiratory: Negative. Cardiovascular: Negative. OBJECTIVE BP 104/72 Pulse 79 Temp (Src) 99.5 (Temporal) Wt 184 lb (83.5kg) SpO2 95% Physical Exam Vitals and nursing note reviewed. Constitutional: General: She is awake. She is not in acute distress. Appearance: Normal appearance. She is well-developed and well-groomed. She is not ill-appearing, toxic-appearing or diaphoretic. HENT: Head: Normocephalic. Right Ear: External ear normal. Left Ear: External ear normal. Nose: Nose normal. Eyes: General: Vision grossly intact. Conjunctiva/sclera: Conjunctivae normal. Pupils: Pupils are equal, round, and reactive to light. Neck: Vascular: No JVD. Trachea: Trachea normal. Pulmonary: Effort: No accessory muscle usage or prolonged expiration. Genitourinary: Comments: Rectum with copious amount of purulent drainage, unable to make a clear visualization of the area. Skin: General: Skin is warm and dry. Capillary Refill: Capillary refill takes less than 2 seconds. Neurological: General: No focal deficit present. Mental Status: She is alert and oriented to person, place, and time. Mental status is at baseline. Psychiatric: Attention and Perception: Attention and perception normal. Mood and Affect: Mood and affect normal. Speech: Speech normal. Behavior: Behavior normal. Behavior is cooperative. Thought Content: Thought content normal. Cognition and Memory: Cognition and memory normal. Judgment: Judgment normal. ASSESSMENT/PLAN: 1. Abscess - ICD9: 682.9, ICD10: L02.91 - Begin treatment with doxy, keep area clean and dry as much as possible - Follow up with general surgery - DOXYCYCLINE HYCLATE 100 MG TABLET Portions of this note have been entered by ancillary staff. I have reviewed and when necessary edited, so that they are an adequate record of my encounter with this patient Please note that parts of this document were created using voice recognition software and therefore may contain grammatical errors. Patient verbalizes understanding of instructions from today's visit and in agreement with treatment plan. Questions answered. Agrees to call the office if questions, concerns of issues with acute symptoms not improving or if they worsen. See diagnoses and orders for additional plan(s). Allergies and medications were reviewed, list was updated, and refills given if needed. Past medical, surgical, social, and family history reviewed and updated as appropriate. Encouraged proper diet & exercise as well as compliance with taking medications. Age-appropriate health preventative measures were discussed. Return if symptoms worsen or fail to improve, for Keep next scheduled appointment.. Shawn Veronica APRN-DAVIDE documented in this encounter [facility] 02-03-2023 Miscellaneous Notes Date of last office: 11/16/2022 Date of next office visit: 03/31/2023 Requested Prescriptions Pending Prescriptions Disp Refills melatonin 10 mg tab 30 tablet 3 Sig: Take 1 tablet by mouth at bedtime as needed for insomnia. pravastatin (PRAVACHOL) 40 mg tablet 90 tablet 3 Sig: Take 1 tablet by mouth once daily. Please advise. Thank you. Quiana Jett RN. documented in this encounter [facility] 01-25-2023 Miscellaneous Notes Scripts [place] [facility] I printed scripts for this, please send to the DME provider and see if okay with how we ordered. Spoke with patient and her . For patient's ostomy supplies she is needing the following: Convatec Flanges Ref# [id number] 10 to a box and requesting 3 boxes Allkare Protective Barrier Wipes Ref # [id number] 1 box = 50 wipes Convatec Adhesive Glue Ref # [id number] 2 oz tube Convatec Stoma Adhesive Powder Ref # [id number] 1 oz bottle Convatec Stoma Bags Ref # [id number] 10 in a box Updated office note has been faxed to [facility]. Will leave encounter open until able to talk with patient in regards to ostomy supplies. I did update her most recent office note with this info, also I placed an order for ostomy supplies but I am not sure what specifics [facility] needs. Was able to reach patient at mobil number and she states that the skin condition around her Ileostomy is red and rash like and does itch at times. She did ask that we take over ordering her ostomy supplies and requested that the quantity of supplies be increased. Did explain to patient that we can write orders and increase the quantity but that insurance may dictate how many they will pay for/provide. Is provider willing to write for ostomy supplies? Patient states she is changing the phalang every 2-3 days and sometimes daily as they do not seem to be sticking as well. Patient did confirm they are washing around the Ileostomy with Dial antibacterial soap. being sure to let dry prior to applying the skin prep/barrier. Then are letting the skin prep dry prior to applying the phalang. Dr. Pearson did suggest Ivory Soap and did encourage patient to switch to Ivory soap if phalang continues not to stick. [address] [place] [address] sent a fax requesting documentation for insurance purposes asking: Type of Ostomy and was able to find that on the problem list as an Ileostomy Condition of skin surrounding the Ostomy Message left for patient to return call. Please inquire to the skin condition around her Ileostomy. Once addressed forward telephone encounter to Shawn Veronica. documented in this encounter [facility] 01-17-2023 Miscellaneous Notes Printed positive COVID results and faxed to Dr. Trevizo's office as pt requested. Pt needs written proofe sent over to her pain management provider stating she tested positive for COVID. They do not believe her and feel she is not wanting to come to her appointment for no reason. Dr. Trevizo, Fax is [phone] documented in this encounter [facility] 01-12-2023 Note HNO ID: [id number] Author: Annmarie Castillo APRN.MEDICAL RECORDS CUSTODIAN Service: ? Author Type: Nurse Practitioner Type: Progress Notes Filed: 01/12/2023 2:21 PM Note Text: Subjective The history is provided by the patient. No power generation turbine room operator was used. HPI Christopher Hobson is a 62 year old female who presents today for CC of sinus congestion, runny nose. The patient is not a good historian, so difficult to follow time line. Patient was seen here on 01/09, tested for covid, that was negative, she return on Wednesday 01/10 and had a paronychia drained and placed on doxycycline, which has improved, but in the past 5 days states her uri syptoms have worsened. BP 119/61 Pulse 82 Temp 36.7 ?C (98.1 ?F) Resp 20 Wt 87.1 kg (192 lb) SpO2 95% BMI 30.99 kg/m? Social History Tobacco Use Smoking status: Former Packs/day: 2.00 Years: 45.00 Additional pack years: 0.00 Total pack years: 90.00 Types: Cigarettes Start date: 1965 Quit date: 08/27/2010 Years since quittin.3 Smokeless tobacco: Current Tobacco comments: Medical Vaping Use Vaping Use: Never used Substance Use Topics Alcohol use: No Drug use: Not Currently Types: Marijuana Comment: Cocaine abuse, quit before 1999. Medical Marijuana PAST MEDICAL HISTORY Diagnosis Date Acute anaphylaxis 09/15/2016 Acute peptic ulcer, unspecified site, without mention of hemorrhage, perforation, or obstruction 1999 Asthma Bowel disease Colon polyps Bowel obstruction (HCC) 02/24/2015 Presented to hospital [...] drain, and TPN on transfer to LTACH Chronic obstructive pulmonary disease (COPD) ([facility]) 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 02/05/2010 Diabetes ([facility]) 1999 On insulin 2015 Dyslipidemia Encephalopathy in sepsis 02/28/2015 CT head and EEG done to confirm Endogenous endophthalmitis Hematoma 06/17/2016 Hematuria, unspecified 04/09/2008 UA with blood in 2-09: need to repeat as cloudy with protein as well Hypotension 02/25/2015 Hypotensive despite fluid resuscitation, remains on pressors. Secondary to E.coli bactremia -- continue norepinephrine and vasopressin to maintain MAP 65 Lunate fracture, closed 11/22/2012 MALIGNANT NEOPLASM COLON NOS(aka COLON) 10/09/2003 Ostomy in LLQ since surgical intervention in 2004 per pt Reviewed eval with Dr. 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/1999 Diabetes on metformin Pain in limb 02/05/2010 Paranoid schizophrenia, chronic condition ([facility]) 1985 Peptic ulcer, unspecified site, unspecified as acute or chronic, without mention of hemorrhage, perforation, or obstruction 10/11/2004 Personal history of colonic polyps 2000 Physical deconditioning 03/14/2015 Due to prolonged ICU stay -- PT/OT consulted -- lift OOB today with lift team Post-op pain 02/25/2015 Fentanyl PRN Postoperative anemia due to acute blood loss 02/25/2015 Hgb 8.8 today, no active bleeding Last transfused 03/14 -- follow daily CBC and coags S/P colostomy ([facility]) SBO (small bowel obstruction) ([facility]) 09/11/2016 Skin lesion 03/09/2015 Skin sloughing on LEs with blisters, indeterminate purple lesions on back -> now improving Per Dermatology consult: linear erosions are most likely irritant contact dermatitis or pressure induced erosions. In addition there are small edema bullae on the abdominal wall Both require gentle wound care and emollients such as aquaphor or petroleum jelly -- monitor Tracheostomy in place ([facility]) Placed 2015 after prolonged respiratory failure, unable to liberate from vent. Unspecified migraine 1998 Ventral hernia with bowel obstruction 09/10/2016 Added automatically from request for surgery [id number] VRE bacteremia 09/29/2016 I have confirmed and edited as necessary, the [facility] Review of Systems Constitutional: Negative for chills, fever and malaise/fatigue. HENT: Positive for congestion and sinus pain. Negative for ear pain and sore throat. Respiratory: Positive for cough and wheezing. Negative for sputum production and shortness of breath. Cardiovascular: Nega (more content not included)... [facility] 01-12-2023 History of Presen t illness Narrative Subjective The history is provided by the patient. No power generation turbine room operator was used. HPI Christopher Hobson is a 62 year old female who presents today for CC of sinus congestion, runny nose. The patient is not a good historian, so difficult to follow time line. Patient was seen here on 01/09, tested for covid, that was negative, she return on Wednesday 01/10 and had a paronychia drained and placed on doxycycline, which has improved, but in the past 5 days states her uri syptoms have worsened. BP 119/61 Pulse 82 Temp 36.7 C (98.1 F) Resp 20 Wt 87.1 kg (192 lb) SpO2 95% BMI 30.99 kg/m Social History Tobacco Use Smoking status: Former Packs/day: 2.00 Years: 45.00 Additional pack years: 0.00 Total pack years: 90.00 Types: Cigarettes Start date: 1965 Quit date: 08/27/2010 Years since quittin.3 Smokeless tobacco: Current Tobacco comments: Medical Vaping Use Vaping Use: Never used Substance Use Topics Alcohol use: No Drug use: Not Currently Types: Marijuana Comment: Cocaine abuse, quit before 1999. 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 Secondary to E.coli bactremia -- continue norepinephrine and vasopressin to maintain MAP 65 Lunate fracture, closed 11/22/2012 MALIGNANT NEOPLASM COLON NOS(aka COLON) 10/09/2003 Ostomy in LLQ since surgical intervention in 2004 per pt Reviewed eval with Dr. 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 Diabetes on metformin Pain in limb 02/05/2010 Paranoid schizophrenia, chronic condition ([facility]) 1985 Peptic ulcer, unspecified site, unspecified as acute or chronic, without mention of hemorrhage, perforation, or obstruction 10/11/2004 Personal history of colonic polyps 2000 Physical deconditioning 03/14/2015 Due to prolonged ICU stay -- PT/OT consulted -- lift OOB today with lift team Post-op pain 02/25/2015 Fentanyl PRN Postoperative anemia due to acute blood loss 02/25/2015 Hgb 8.8 today, no active bleeding Last transfused 03/14 -- follow daily CBC and coags S/P colostomy ([facility]) SBO (small bowel obstruction) ([facility]) 09/11/2016 Skin lesion 03/09/2015 Skin sloughing on LEs with blisters, indeterminate purple lesions on back -> now improving Per Dermatology consult: linear erosions are most likely irritant contact dermatitis or pressure induced erosions. In addition there are small edema bullae on the abdominal wall Both require gentle wound care and emollients such as aquaphor or petroleum jelly -- monitor Tracheostomy in place ([facility]) Placed 2015 after prolonged respiratory failure, unable to liberate from vent. Unspecified migraine 1998 Ventral hernia with bowel obstruction 09/10/2016 Added automatically from request for surgery [id number] VRE bacteremia 09/29/2016 I have confirmed and edited as necessary, the [facility] Review of Systems Constitutional: Negative for chills, fever and malaise/fatigue. HENT: Positive for congestion and sinus pain. Negative for ear pain and sore throat. Respiratory: Positive for cough and wheezing. Negative for sputum production and shortness of breath. Cardiovascular: Negative for chest pain. Gastrointestinal: Negative for abdominal pain, diarrhea, nausea and vomiting. Musculoskeletal: Negative for myalgias. Neurological: Negative for headaches. Objective Physical Exam Vitals and nursing note reviewed. HENT: Head: Normocephalic and atraumatic. Right Ear: Tympanic membrane, ear canal and external ear normal. Left Ear: Tympanic membrane, ear canal and external ear normal. Nose: Rhinorrhea present. No mucosal edema or congestion. Right Sinus: No maxillary sinus tenderness or frontal sinus tenderness. Left Sinus: No maxillary sinus tenderness or frontal sinus tenderness. Mouth/Throat: Pharynx: Uvula midline. No oropharyngeal exudate or posterior oropharyngeal erythema. Cardiovascular: Rate and Rhythm: Normal rate and regular rhythm. Heart sounds: Normal heart sounds. Pulmonary: Effort: Pulmonary effort is normal. Breath sounds: Normal breath sounds. Lymphadenopathy: Head: Right side of head: No submental, submandibular or tonsillar adenopathy. Left side of head: No submental, submandibular or tonsillar adenopathy. Cervical: No cervical adenopathy. Skin: General: Skin is warm and dry. Neurological: Mental Status: She is alert. Psychiatric: Mood and Affect: Affect normal. ASSESSMENT/PLAN: 1. URI with cough and congestion - ICD9: 465.9, ICD10: J06.9 - Discussed viral etiology and rationale for treatment. - Symptomatic treatment with prn analgesia - Supportive care with fluids and rest Nebulizer every 4 hours Benzonatate mucinex Home isolation Testing ordered Comfort measures discussed - see patient instructions. When to seek higher level of care Notified in 12-24 hours with results, available on mychart - COVID & INFLUENZA A/B & RSV NAAT, ROUTINE Diagnosis and treatment plan were discussed and questions were answered to the patient's satisfaction. Pt acknowledged understanding of concepts and follow up plan. Specific signs and symptoms that would indicate the need for higher level of care were discussed in detail warranting prompt ER evaluation. Annmarie Castillo APRN.MEDICAL RECORDS CUSTODIAN documented in this encounter [facility] 01-10-2023 Miscellaneous Notes Spouse and patient returned call together, and given provider's message below. Yanna Sequeira RN LEFT MESSAGE FOR PATIENT TO CALL BACK /ISABELLA KUMAR COVID-19, influenza A, and influenza B PCR test are negative. Continue supportive therapies as discussed during visit. Follow-up with PCP if symptoms are not improving. Arvind Mcleod APRN.MEDICAL RECORDS CUSTODIAN documented in this encounter [facility] 01-09-2023 Note HNO ID: [id number] Author: Arvind Mcleod APRN.MEDICAL RECORDS CUSTODIAN Service: ? Author Type: Nurse Practitioner Type: Progress Notes Filed: 01/09/2023 3:40 PM Note Text: Subjective HPI Nontoxic-appearing female presents urgent care chief complaint COVID-19 concerns. Duration of symptoms 2 days. Associated symptoms nasal congestion and headache. Presents today for COVID-19 testing. States tested positive for COVID-19 today. His symptoms started before hers. Has not use any OTC medications. Denies any other concerns. Denies any fever body aches chills productive cough chest pain shortness of breath pleuritic pain hemoptysis nausea vomiting abdominal pain change in bowel or bladder habits. Past medical history prescription medication use and allergies reviewed. 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 Secondary to E.coli bactremia -- continue norepinephrine and vasopressin to maintain MAP 65 Lunate fracture, closed 11/22/2012 MALIGNANT NEOPLASM COLON NOS(aka COLON) 10/09/2003 Ostomy in LLQ since surgical intervention in 2004 per pt Reviewed eval with Dr. 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 Diabetes on metformin Pain in limb 02/05/2010 Paranoid schizophrenia, chronic condition ([facility]) 1985 Peptic ulcer, unspecified site, unspecified as acute or chronic, without mention of hemorrhage, perforation, or obstruction 10/11/2004 Personal history of colonic polyps 2000 Physical deconditioning 03/14/2015 Due to prolonged ICU stay -- PT/OT consulted -- lift OOB today with lift team Post-op pain 02/25/2015 Fentanyl PRN Postoperative anemia due to acute blood loss 02/25/2015 Hgb 8.8 today, no active bleeding Last transfused 03/14 -- follow daily CBC and coags S/P colostomy ([facility]) SBO (small bowel obstruction) ([facility]) 09/11/2016 Skin lesion 03/09/2015 Skin sloughing on LEs with blisters, indeterminate purple lesions on back -> now improving Per Dermatology consult: linear erosions are most likely irritant contact dermatitis or pressure induced erosions. In addition there are small edema bullae on the abdominal wall Both require gentle wound care and emollients such as aquaphor or petroleum jelly -- monitor Tracheostomy in place (HCC) Placed 2015 after prolonged respiratory failure, unable to liberate from vent. Unspecified migraine 1998 Ventral hernia with bowel obstruction 09/10/2016 Added automatically from request for surgery [id number] VRE bacteremia 09/29/2016 PAST SURGICAL HISTORY Procedure Laterality Date ANESTH,VAGINAL DELIVERY 1977,1979,1985, 1986 w/ episiotomies APPENDECTOMY DILATION AND CURETTAGE DXAND/THER NONOBSTETRIC 1977 Dilation AND curettage INDUCED DILATION AND CURETTAGE LIG/TRNSXJ FLP TUBE ABDL/VAG APPR UNI/BI Tubal ligation NEUROPLASTY AND/TRANSPOS MEDIAN NRV CARPAL TUNNE 2006 Carpal tunnel decomp right NEUROPLASTY AND/TRANSPOS MEDIAN NRV CARPAL TUNNE Carpal tunnel decomp left PAST SURGICAL HISTORY OF 2004 Abdominal surgeries for hernia repairs PAST SURGICAL HISTORY OF 2008 Ileostomy PAST SURGICAL HISTORY OF 09/12/2016 Underwent ex lap, takedown of prior ostomy, RONEY and creation of new end ileostomy on 09/12/16 for parastomal hernia (more content not included)... [facility] 01-09-2023 Note HNO ID: [id number] Author: Mansi Varela RT(R) Service: Radiology Author Type: Technologist Type: Progress Notes Filed: 01/09/2023 3:21 PM Note Text: Radiology Service Progress Note PATIENT NAME: Christopher Hobson DATE OF SERVICE: January 09, 2023 TIME: 3:06 PM PATIENT IDENTITY VERIFICATION COMPLETED USING TWO (2) IDENTIFIERS: Name and Date of confirmed by patient verbally. FALL SCREENING: Has the patient had 2 falls in the last year or 1 fall with injury or currently using an Ambulatory Assistive Device (Walker, Cane, Wheelchair, Crutches, etc.)? No PATIENT GENDER DATA: Female. status: : No status: NO. PATIENT RELEVANT IMPLANT DATA REVIEWED: Not Applicable RADIOLOGY DEPARTMENT: General X-ray: Exam(s) Completed: Upper Extremity X-Ray(s): Fingers/Thumb, left PERIPHERAL IV DATA: Not applicable SIGNED BY: RT Brittany(R) January 09, 2023 3:06 PM [facility] 01-09-2023 Instructions Arvind Mcleod APRN.MEDICAL RECORDS CUSTODIAN - 01/09/2023 3:22 PM EST How to Manage Common Symptoms Associated with COVID for Adults Fever- Fever is a temperature over 100.4 F and can occur when the body is fighting an infection. To help treat a fever: Drink plenty of fluids and stay well hydrated. Eat small amounts of easy to digest food. Rest. Your body needs rest to recover, but getting up and moving around the house frequently is a good idea. You should try to continue doing your normal daily activities (bathing, toileting, grooming, cooking), though you will probably feel tired, and need to rest often. Avoid any heavy activity or exercise, as this will increase your body temperature. Dress in light clothing and stay covered in a light sheet. Keep the room temperature cool. Take a slightly warm (not cold or cool) bath, or apply damp washcloths to the forehead and wrists. Cough- Cough is a common symptom associated with COVID and can be bothersome. To help treat a cough: Stay well hydrated. Try warm water or tea with lemon and/or honey to help soothe the cough. Use a humidifier to add moisture to the air. Try a product with menthol, like a cough drop or a rub for your chest such as Vicks, which can help reduce cough. Try cough drops. Avoid smoking and other strong odors or perfumes. Try breathing exercises to keep your lungs open and clear. Take a big deep breath through your nose and hold for 5 seconds before slowly releasing. Repeat frequently, while you are awake. Congestion- Runny nose or nasal congestion can occur with COVID. Treatment can help relieve symptoms: Try OTC nasal saline spray, or nasal saline rinse to relieve mucus congestion. Nasal strips can help keep nasal passages open, to increase airflow. Elevating your head with an extra pillow in bed can help reduce congestion. Using a humidifier can increase moisture in the air, and make breathing easier. Sore Throat- Another common symptom with COVID, can be managed at home by: Stay well hydrated. Gargle with salt water - mix teaspoon salt with 1 cup of warm water and gargle. This helps to loosen mucus in the back of the throat and may reduce discomfort. Try ice chips, popsicles or lozenges to soothe the throat. Nausea/Vomiting/Diarrhea- These are common symptoms, and staying hydrated is most important. If you are nauseous or vomiting, start with small sips of water every 10-15 minutes and increase as tolerated. You can try sucking an ice cube too. If tolerating, you can try pedialyte or Gatorade, or flat sprite or navin-anton. Start slowly and increase as you are able to. Instead of meals, try smaller, more frequent snacks. Try eating bland foods like crackers, toast, rice, and applesauce. Avoid spicy, greasy or fried foods and dairy containing foods. Even if you aren't feeling hungry due to lack of smell or taste, it is important to try to take in some food when you are able. After drinking and eating, rest in an upright position for up to two hours as needed to help decrease nauseous feelings. Try closing your eyes, avoid moving and watching TV. Avoid strong odors that can make you feel more nauseated. When to seek emergency medical attention Look for emergency warning signs for COVID-19. If having any of these symptoms, seek emergency medical care immediately: Trouble breathing Persistent pain or pressure in the chest New confusion Inability to wake or stay awake Bluish lips or face *This list is not all possible symptoms. Please call your medical provider for any other symptoms that are severe or concerning to you. documented in this encounter [facility] 01-09-2023 History of Presen t illness Narrative Subjective HPI Nontoxic-appearing female presents urgent care chief complaint COVID-19 concerns. Duration of symptoms 2 days. Associated symptoms nasal congestion and headache. Presents today for COVID-19 testing. States tested positive for COVID-19 today. His symptoms started before hers. Has not use any OTC medications. Denies any other concerns. Denies any fever body aches chills productive cough chest pain shortness of breath pleuritic pain hemoptysis nausea vomiting abdominal pain change in bowel or bladder habits. Past medical history prescription medication use and allergies reviewed. 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 Secondary to E.coli bactremia -- continue norepinephrine and vasopressin to maintain MAP 65 Lunate fracture, closed 11/22/2012 MALIGNANT NEOPLASM COLON NOS(aka COLON) 10/09/2003 Ostomy in LLQ since surgical intervention in 2004 per pt Reviewed eval with Dr. 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 Diabetes on metformin Pain in limb 02/05/2010 Paranoid schizophrenia, chronic condition ([facility]) 1985 Peptic ulcer, unspecified site, unspecified as acute or chronic, without mention of hemorrhage, perforation, or obstruction 10/11/2004 Personal history of colonic polyps 2000 Physical deconditioning 03/14/2015 Due to prolonged ICU stay -- PT/OT consulted -- lift OOB today with lift team Post-op pain 02/25/2015 Fentanyl PRN Postoperative anemia due to acute blood loss 02/25/2015 Hgb 8.8 today, no active bleeding Last transfused 03/14 -- follow daily CBC and coags S/P colostomy ([facility]) SBO (small bowel obstruction) ([facility]) 09/11/2016 Skin lesion 03/09/2015 Skin sloughing on LEs with blisters, indeterminate purple lesions on back -> now improving Per Dermatology consult: linear erosions are most likely irritant contact dermatitis or pressure induced erosions. In addition there are small edema bullae on the abdominal wall Both require gentle wound care and emollients such as aquaphor or petroleum jelly -- monitor Tracheostomy in place ([facility]) Placed 2015 after prolonged respiratory failure, unable to liberate from vent. Unspecified migraine 1998 Ventral hernia with bowel obstruction 09/10/2016 Added automatically from request for surgery [id number] VRE bacteremia 09/29/2016 PAST SURGICAL HISTORY Procedure Laterality Date ANESTH,VAGINAL DELIVERY 1977,1979,1985, 1986 w/ episiotomies APPENDECTOMY DILATION & CURETTAGE DX&/THER NONOBSTETRIC 1977 Dilation & curettage INDUCED DILATION AND CURETTAGE LIG/TRNSXJ FLP TUBE ABDL/VAG APPR UNI/BI Tubal ligation NEUROPLASTY &/TRANSPOS MEDIAN NRV CARPAL TUNNE 2006 Carpal tunnel decomp right NEUROPLASTY &/TRANSPOS MEDIAN NRV CARPAL TUNNE Carpal tunnel decomp left PAST SURGICAL HISTORY OF 2004 Abdominal surgeries for hernia repairs PAST SURGICAL HISTORY OF 2008 Ileostomy PAST SURGICAL HISTORY OF 09/12/2016 Underwent ex lap, takedown of prior ostomy, RONEY and creation of new end ileostomy on 09/12/16 for parastomal hernia with closed loop hernia PAST SURGICAL HISTORY OF 09/28/2016 Permanent Pacemaker Placement for complete heart block REDUCE BOWEL OBSTRUCTION Late February 2015 acute bowel obstruction. SB resection. REVJ COLOSTOMY COMP RCNSTJ IN-DEPTH SPX 2000 3-4 surgeries TONSILLECTOMY PRIMARY/SECONDARY AGE 10/> TRACHEOSTOMY HX 03/12/2015 protracted critical stay, failure to wean after bowel obtruction ALLERGIES Goss, Lemon, Pears, Cephalosporins, Ciprofloxacin, Codeine, Diclofenac, Dilaudid [Hydromorphone (Bulk)], Lipitor [Atorvastatin Calcium], Lyrica [Pregabalin], Opioids - Morphine Analogues, Penicillins, Percocet [Oxycodone-Acetaminophen], Soap, Sulfa (Sulfonamide Antibiotics), Vicodin [Hydrocodone-Acetaminophen], and Zithromax [Azithromycin] MEDICATIONS fluticasone-salmeterol (ADVAIR DISKUS) 100-50 mcg/dose inhaler Inhale 1 Puff as instructed two times a day. Rinse mouth out after use with water. doxycycline (VIBRA-TABS) 100 mg tablet Take 1 tablet by mouth two times a day for 7 days. omeprazole (PRILOSEC) 20 mg capsule TAKE ONE CAPSULE BY MOUTH EVERY DAY 30 MINUTES BEFORE breakfast NUCYNTA 50 mg three times a day. gabapentin (NEURONTIN) 300 mg capsule blood sugar diagnostic (BLOOD GLUCOSE TEST) test strip Test blood sugar(s) 4 times daily and as needed as directed. Dx: Type 2 DM - Uncontrolled Insulin: Yes ketoconazole (NIZORAL) 2 % cream Apply 1 application to affected area once daily. as needed hydrocortisone 2.5 % cream Apply 1 application to affected area twice daily as needed. Location: neck (reaction to tape adhesive) May also use for poison tania. Use up to 14 days per episode of rash. triamcinolone acetonide (KENALOG) 0.1 % cream Apply 1 application to affected area three times daily. Apply sparingly to area for rash/itching till rash resolves. For contact dermatitis Lancets lancets Test blood sugar(s) 1 times daily and as needed. Dx: Type 2 DM - Uncontrolled Insulin: Yes alcohol swabs (SURE-PREP ALCHOLOL PREP PADS) Test blood sugars 4 x's daily. Dx: E11.65 Insulin: Yes insulin glargine (LANTUS SOLOSTAR U-100 INSULIN) 100 unit/mL (3 mL) Inject 18 Units subcutaneously daily at bedtime AND 2 Units daily at bedtime. Adjust as directed (2 units to prime pen needle. miconazole (CADENCE ANTIFUNGAL) 2 % cream Apply 1 application to affected area twice daily. To perirectal and buttocks area clotrimazole (LOTRIMIN) 1 % cream Apply to affected area twice daily. benzonatate (TESSALON PERLES) 100 mg capsule Take 1-2 capsules by mouth three times daily as needed. (Patient not taking: Reported on 11/16/2022) pravastatin (PRAVACHOL) 40 mg tablet Take 1 tablet by mouth once daily. melatonin 10 mg tab Take 1 tablet by mouth at bedtime as needed for for insomnia. guaiFENesin (MUCINEX) 600 mg 12 hr tablet Take 2 tablets by mouth twice daily. INGREZZA 80 mg capsule Take 1 tablet by mouth once daily. glimepiride (AMARYL) 4 mg tablet Take 1 tablet by mouth daily with breakfast. Patient may take an extra half pill once a day for blood sugars over 200. diclofenac (VOLTAREN ARTHRITIS PAIN) 1 % topical gel Apply 2 g to affected area four times daily. magnesium oxide (MAG-OX) 400 mg (241.3 mg magnesium) tablet Take 1 tablet by mouth once daily. fluticasone (FLONASE) 50 mcg/actuation nasal spray Use 2 Sprays in each nostril once daily. Rinse mouth after use. xdznyamfhlYTCWZ-mialdx-obhdypbxv (BMX 1:1:1) 1:1:1 liqd Mix in equal amounts - 1 T every 2hrs as needed for mouth pain, Swish/swallow or expectorate. (8oz) ipratropium-albuterol (DUONEB) 0.5 mg-3 mg(2.5 mg base)/3 mL nebu Inhale 3 mL as instructed four times daily as needed (wheezing). Use over 5-15minutes per nebulizer. insulin needles, DISPOSABLE, (PEN NEEDLE) 31 gauge x 5/16 Use one needle per dose (Lantus and Humalog). 5 per day. Nebulizer and Compressor For Neb 1 Each as needed (Use as directed for treatment of asthma). Nebulizer Accessories [facility] [place] new nebulizer mask, hose and supplies. (J45.20) Intermittent asthma without complication prednisoLONE acetate (PRED FORTE) 1 % ophthalmic suspension Use 1 Drop in the right eye four times daily. (Patient not taking: Reported on 11/16/2022) blood sugar diagnostic (TRUE METRIX GLUCOSE TEST STRIP) test strip Check blood sugar 4 times daily. DX: E11.65. Insulin : yes vancomycin 25 mg/mL ophthalmic drops ([facility]) Use 1 Drop in the right eye every 2 hours. (Patient not taking: Reported on 11/16/2022) cefTAZidime ophthalmic solution 2.5% (25 mg/mL) (IP-CPD) Use 1 Drop in the right eye every 4 hours while awake. (Patient not taking: Reported on 11/16/2022) albuterol HFA (PROVENTIL HFA, VENTOLIN HFA) 90 mcg/actuation inhaler Inhale 2 Puffs as instructed every 4 hours as needed. Blood-Glucose Meter (TRUE METRIX GLUCOSE METER) Testing one time daily and as needed DX E11. Insulin YES Lidocaine-Hydrocortisone Ac 3-0.5 % crea by RECTAL route twice daily for 14 days. Blood-Glucose Meter (ONETOUCH VERIO METER) Test blood sugar 4 times daily. Dx: Type 2 DM. Uncontrolled . Insulin: yes. blood sugar diagnostic (ONETOUCH VERIO TEST STRIPS) test strip Test blood sugar 4 times daily. Dx: Type 2 DM. Uncontrolled . Insulin: yes Zinc Oxide 40 % oint Apply to affected area as needed. Ostomy Supplies (ADHESIVE REMOVER WIPES) swab All Care brand. Use as directed fluPHENAZine (PROLIXIN) 1 mg tablet Take 3 mg by mouth once daily. blood sugar diagnostic (BLOOD GLUCOSE TEST) test strip Test blood sugar(s) 1 times daily and as needed. Dx: Type 2 DM - Uncontrolled Insulin: Yes Nebulizer Accessories [facility] [place] new nebulizer mask, hose and supplies. (J45.20) Intermittent asthma without complication phenazopyridine (PYRIDIUM) 100 mg tablet Take 1 tablet by mouth three times daily as needed. Nebulizer New (not refurbished) NEBULIZER FOR HOME USE with Duoneb 4 x a day. DX: J45.909, Z87.09. Lifetime supplies of mask/tubing, patient has tracheostomy. tapentadol (NUCYNTA) 75 mg tab Take 50 mg by mouth three times daily. Taking 1 three times a day per Dr Trevizo. blood sugar diagnostic (FREESTYLE INSULINX) test strip Test blood sugar(s) 4 times daily and as needed. Dx: Type 2 DM - Uncontrolled Insulin: Yes Adhesive Tape (DURAPORE SURGICAL) 2 X 10 -yard tape Use for dressings for healing tracheostomy site. traZODone (DESYREL) 100 mg tablet Take 3 tablets by mouth daily at bedtime. ([facility]) topiramate (TOPAMAX) 100 mg tablet Take 1 tablet by mouth once daily. Per psychiatrist (Patient taking differently: Take 300 mg by mouth daily at bedtime. Per psychiatrist) VRAYLAR 3 mg cap Take 3 mg by mouth daily at bedtime. white petrolatum-mineral oil (EUCERIN) cream Apply 1 application to affected area as needed for Dry Skin (all dry skin areas). FAMILY HISTORY Problem Relation Age of Onset other (Pneumonia) Mother Heart Father Thyroid Daughter Thyroid Daughter Asthma No Family History Cancer No Family History No lung cancer. COPD No Family History Social History Tobacco Use Smoking status: Former Packs/day: 2.00 Years: 45.00 Additional pack years: 0.00 Total pack years: 90.00 Types: Cigarettes Start date: 1965 Quit date: 08/27/2010 Years since quittin.3 Smokeless tobacco: Current Tobacco comments: Medical Vaping Use Vaping Use: Never used Substance Use Topics Alcohol use: No Drug use: Not Currently Types: Marijuana Comment: Cocaine abuse, quit before 1999. Medical Marijuana BP 132/60 Pulse 76 Temp 36.4 C (97.5 F) Resp 16 Wt 87.5 kg (193 lb) SpO2 98% BMI 31.15 kg/m Review of Systems Constitutional: Negative for chills, fever and malaise/fatigue. HENT: Positive for congestion. Negative for ear discharge, ear pain, sinus pain and sore throat. Eyes: Negative for blurred vision, pain, discharge and redness. Respiratory: Negative for cough, hemoptysis, sputum production, shortness of breath, wheezing and stridor. Cardiovascular: Negative for chest pain. Gastrointestinal: Negative for abdominal pain, diarrhea, nausea and vomiting. Musculoskeletal: Negative for myalgias. Skin: Negative for itching and rash. Neurological: Positive for headaches. Negative for dizziness. Objective Physical Exam Constitutional: General: She is not in acute distress. Appearance: She is not diaphoretic. HENT: Head: Normocephalic. Jaw: No trismus, tenderness, swelling or pain on movement. Nose: Congestion present. Eyes: Conjunctiva/sclera: Conjunctivae normal. Pupils: Pupils are equal, round, and reactive to light. Cardiovascular: Rate and Rhythm: Normal rate and regular rhythm. Heart sounds: Normal heart sounds. Pulmonary: Effort: Pulmonary effort is normal. No tachypnea, accessory muscle usage or respiratory distress. Breath sounds: Normal breath sounds. No stridor. No wheezing, rhonchi or rales. Abdominal: General: There is no distension. Palpations: Abdomen is soft. Tenderness: There is no abdominal tenderness. There is no guarding or rebound. Musculoskeletal: Cervical back: Normal range of motion and neck supple. No edema, erythema, rigidity or tenderness. No pain with movement. Normal range of motion. Lymphadenopathy: Cervical: No cervical adenopathy. Skin: General: Skin is warm and dry. Neurological: Mental Status: She is alert and oriented to person, place, and time. ASSESSMENT/PLAN: 1. Viral illness - ICD9: 079.99, ICD10: B34.9 - COVID & INFLUENZA A/B & RSV NAAT, ROUTINE Patient nontoxic-appearing. Test for COVID-19 do with positive exposure. If positive recommended antiviral therapy. Patient will contact PCP office if COVID-19 positive. Patient was educated on supportive therapies. Patient will follow up with primary care provider as needed. Patient was instructed to immediately proceed to emergency room for any new, worsening, or symptoms lasting longer than anticipated. The patient's clinical presentation is otherwise unremarkable at this time. Based on exam and clinical finding, the patient is stable for discharge. Plan of care was discussed with patient. Patient verbalizes understanding and agrees to plan of care. This note was generated using [employer] software. It may contain errors in wording, punctuation, or spelling. Arvind Mcleod APRN.DAVIDE documented in this encounter [facility] 01-09-2023 Miscellaneous Notes Date of last office: 11/16/2022 Date of next office visit: 03/31/2023 Requested Prescriptions Pending Prescriptions Disp Refills fluticasone-salmeterol (ADVAIR DISKUS) 100-50 mcg/dose inhaler 1 Each 2 Sig: Inhale 1 Puff as instructed two times a day. Rinse mouth out after use with water. Please advise. Thank you. Quiana Jett RN. documented in this encounter [facility] 01-08-2023 Note HNO ID: [id number] Author: Lisa Tinoco PA-C Service: ? Author Type: Physician Pyridine Recovery Operator Type: Progress Notes Filed: 01/08/2023 1:48 PM Note Text: This note was created using Telismar[employer]. Subjective Christopher Hobson is a 62 year old female. HPI Presents with left middle finger pain. She has had pain in the finger for 5 days. She had smashed it in a door, she is not exactly sure what day that was. She has some pus on the side of the finger. She is diabetic. She does not chew her fingernails. Pain had increased so she came in for evaluation. Review of Systems Musculoskeletal: Left third finger pain All other systems reviewed and are negative. 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 Secondary to E.coli bactremia -- continue norepinephrine and vasopressin to maintain MAP 65 Lunate fracture, closed 11/22/2012 MALIGNANT NEOPLASM COLON NOS(aka COLON) 10/09/2003 Ostomy in LLQ since surgical intervention in 2004 per pt Reviewed eval with Dr. 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 Diabetes on metformin Pain in limb 02/05/2010 Paranoid schizophrenia, chronic condition ([facility]) 1985 Peptic ulcer, unspecified site, unspecified as acute or chronic, without mention of hemorrhage, perforation, or obstruction 10/11/2004 Personal history of colonic polyps 2000 Physical deconditioning 03/14/2015 Due to prolonged ICU stay -- PT/OT consulted -- lift OOB today with lift team Post-op pain 02/25/2015 Fentanyl PRN Postoperative anemia due to acute blood loss 02/25/2015 Hgb 8.8 today, no active bleeding Last transfused 03/14 -- follow daily CBC and coags S/P colostomy ([facility]) SBO (small bowel obstruction) ([facility]) 09/11/2016 Skin lesion 03/09/2015 Skin sloughing on LEs with blisters, indeterminate purple lesions on back -> now improving Per Dermatology consult: linear erosions are most likely irritant contact dermatitis or pressure induced erosions. In addition there are small edema bullae on the abdominal wall Both require gentle wound care and emollients such as aquaphor or petroleum jelly -- monitor Tracheostomy in place ([facility]) Placed 2015 after prolonged respiratory failure, unable to liberate from vent. Unspecified migraine 1998 Ventral hernia with bowel obstruction 09/10/2016 Added automatically from request for surgery [id number] VRE bacteremia 09/29/2016 Current Outpatient Medications Medication Sig Dispense Refill doxycycline (VIBRA-TABS) 100 mg tablet Take 1 tablet by mouth two times a day for 7 days. 14 tablet 0 omeprazole (PRILOSEC) 20 mg capsule TAKE ONE CAPSULE BY MOUTH EVERY DAY 30 MINUTES BEFORE breakfast 90 capsule 1 NUCYNTA 50 mg three times a day. gabapentin (NEURONTIN) 300 mg capsule blood sugar diagnostic (BLOOD GLUCOSE TEST) test strip Test blood sugar(s) 4 times daily and as needed as directed. Dx: Type 2 DM - Uncontrolled E11.65 Insulin: Yes 150 Strip 11 ketoconazole (NIZORAL) 2 % cream Apply 1 application to affected area once daily. as needed 30 g 2 hydrocortisone 2.5 % cream Apply 1 application to affected area twice daily as needed. Location: neck (reaction to tape adhesive) May also use for poison tania. Use up to 14 days per episode of rash. 28 g 2 triamcinolone acetonide (KENALOG) 0.1 % cream Apply 1 application to a (more content not included)... [facility] 01-08-2023 History of Presen t illness Narrative Images from the original note were not included. This note was created using [employer]. Subjective Christopher Hobson is a 62 year old female. HPI Presents with left middle finger pain. She has had pain in the finger for 5 days. She had smashed it in a door, she is not exactly sure what day that was. She has some pus on the side of the finger. She is diabetic. She does not chew her fingernails. Pain had increased so she came in for evaluation. Review of Systems Musculoskeletal: Left third finger pain All other systems reviewed and are negative. PAST MEDICAL HISTORY Diagnosis Date Acute anaphylaxis 09/15/2016 Acute peptic ulcer, unspecified site, without mention of hemorrhage, perforation, or obstruction 1999 Asthma Bowel disease Colon polyps Bowel obstruction (HCC) 02/24/2015 Presented to hospital [...] drain, and TPN on transfer to [facility] Chronic obstructive pulmonary disease (COPD) ([facility]) 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 02/05/2010 Diabetes (HCC) 1999 On insulin 2015 Dyslipidemia Encephalopathy in sepsis 02/28/2015 CT head and EEG done to confirm Endogenous endophthalmitis Hematoma 06/17/2016 Hematuria, unspecified 04/09/2008 UA with blood in 04-14: need to repeat as cloudy with protein as well Hypotension 02/25/2015 Hypotensive despite fluid resuscitation, remains on pressors. Secondary to E.coli bactremia -- continue norepinephrine and vasopressin to maintain MAP 65 Lunate fracture, closed 11/22/2012 MALIGNANT NEOPLASM COLON NOS(aka COLON) 10/09/2003 Ostomy in LLQ since surgical intervention in 2004 per pt Reviewed eval with Dr. 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 Diabetes on metformin Pain in limb 02/05/2010 Paranoid schizophrenia, chronic condition ([facility]) 1985 Peptic ulcer, unspecified site, unspecified as acute or chronic, without mention of hemorrhage, perforation, or obstruction 10/11/2004 Personal history of colonic polyps 2000 Physical deconditioning 03/14/2015 Due to prolonged ICU stay -- PT/OT consulted -- lift OOB today with lift team Post-op pain 02/25/2015 Fentanyl PRN Postoperative anemia due to acute blood loss 02/25/2015 Hgb 8.8 today, no active bleeding Last transfused 03/14 -- follow daily CBC and coags S/P colostomy ([facility]) SBO (small bowel obstruction) ([facility]) 09/11/2016 Skin lesion 03/09/2015 Skin sloughing on LEs with blisters, indeterminate purple lesions on back -> now improving Per Dermatology consult: linear erosions are most likely irritant contact dermatitis or pressure induced erosions. In addition there are small edema bullae on the abdominal wall Both require gentle wound care and emollients such as aquaphor or petroleum jelly -- monitor Tracheostomy in place ([facility]) Placed 2015 after prolonged respiratory failure, unable to liberate from vent. Unspecified migraine 1998 Ventral hernia with bowel obstruction 09/10/2016 Added automatically from request for surgery [id number] VRE bacteremia 09/29/2016 Current Outpatient Medications Medication Sig Dispense Refill doxycycline (VIBRA-TABS) 100 mg tablet Take 1 tablet by mouth two times a day for 7 days. 14 tablet 0 omeprazole (PRILOSEC) 20 mg capsule TAKE ONE CAPSULE BY MOUTH EVERY DAY 30 MINUTES BEFORE breakfast 90 capsule 1 NUCYNTA 50 mg three times a day. gabapentin (NEURONTIN) 300 mg capsule blood sugar diagnostic (BLOOD GLUCOSE TEST) test strip Test blood sugar(s) 4 times daily and as needed as directed. Dx: Type 2 DM - Uncontrolled E11. Insulin: Yes 150 Strip 11 ketoconazole (NIZORAL) 2 % cream Apply 1 application to affected area once daily. as needed 30 g 2 hydrocortisone 2.5 % cream Apply 1 application to affected area twice daily as needed. Location: neck (reaction to tape adhesive) May also use for poison tania. Use up to 14 days per episode of rash. 28 g 2 triamcinolone acetonide (KENALOG) 0.1 % cream Apply 1 application to affected area three times daily. Apply sparingly to area for rash/itching till rash resolves. For contact dermatitis 30 g 1 Lancets lancets Test blood sugar(s) 1 times daily and as needed. Dx: Type 2 DM - Uncontrolled Insulin: Yes 100 Each 11 alcohol swabs (SURE-PREP ALCHOLOL PREP PADS) Test blood sugars 4 x's daily. Dx: E11. Insulin: Yes 200 Each 11 insulin glargine (LANTUS SOLOSTAR U-100 INSULIN) 100 unit/mL (3 mL) Inject 18 Units subcutaneously daily at bedtime AND 2 Units daily at bedtime. Adjust as directed (2 units to prime pen needle. 5 Each 4 miconazole (CADENCE ANTIFUNGAL) 2 % cream Apply 1 application to affected area twice daily. To perirectal and buttocks area 42.5 g 11 clotrimazole (LOTRIMIN) 1 % cream Apply to affected area twice daily. 28 g 2 fluticasone-salmeterol (ADVAIR DISKUS) 100-50 mcg/dose inhaler Inhale 1 Puff as instructed twice daily. Rinse mouth out after use with water. 1 Each 2 benzonatate (TESSALON PERLES) 100 mg capsule Take 1-2 capsules by mouth three times daily as needed. (Patient not taking: Reported on 11/16/2022) 30 capsule 0 pravastatin (PRAVACHOL) 40 mg tablet Take 1 tablet by mouth once daily. 90 tablet 3 melatonin 10 mg tab Take 1 tablet by mouth at bedtime as needed for for insomnia. 30 tablet 3 guaiFENesin (MUCINEX) 600 mg 12 hr tablet Take 2 tablets by mouth twice daily. 60 tablet 11 INGREZZA 80 mg capsule Take 1 tablet by mouth once daily. glimepiride (AMARYL) 4 mg tablet Take 1 tablet by mouth daily with breakfast. Patient may take an extra half pill once a day for blood sugars over 200. 45 tablet 11 diclofenac (VOLTAREN ARTHRITIS PAIN) 1 % topical gel Apply 2 g to affected area four times daily. 20 g 0 magnesium oxide (MAG-OX) 400 mg (241.3 mg magnesium) tablet Take 1 tablet by mouth once daily. 30 tablet 11 fluticasone (FLONASE) 50 mcg/actuation nasal spray Use 2 Sprays in each nostril once daily. Rinse mouth after use. 1 Each 0 enfgenovinBBYOQ-prwhdq-xdtpwdlgw (BMX 1:1:1) 1:1:1 liqd Mix in equal amounts - 1 T every 2hrs as needed for mouth pain, Swish/swallow or expectorate. (8oz) 240 mL 0 ipratropium-albuterol (DUONEB) 0.5 mg-3 mg(2.5 mg base)/3 mL nebu Inhale 3 mL as instructed four times daily as needed (wheezing). Use over 5-15minutes per nebulizer. 380 Vial 3 insulin needles, DISPOSABLE, (PEN NEEDLE) 31 gauge x 5/16 Use one needle per dose (Lantus and Humalog). 5 per day. 150 Each 11 Nebulizer and Compressor For Neb 1 Each as needed (Use as directed for treatment of asthma). 1 Each 0 Nebulizer Accessories [facility] [place] new nebulizer mask, hose and supplies. (J45.20) Intermittent asthma without complication 1 Each 0 prednisoLONE acetate (PRED FORTE) 1 % ophthalmic suspension Use 1 Drop in the right eye four times daily. (Patient not taking: Reported on 11/16/2022) 15 mL 0 blood sugar diagnostic (TRUE METRIX GLUCOSE TEST STRIP) test strip Check blood sugar 4 times daily. DX: E11.65. Insulin : yes 150 Each 11 vancomycin 25 mg/mL ophthalmic drops ([facility]) Use 1 Drop in the right eye every 2 hours. (Patient not taking: Reported on 11/16/2022) 15 mL 0 cefTAZidime ophthalmic solution 2.5% (25 mg/mL) (IP-CPD) Use 1 Drop in the right eye every 4 hours while awake. (Patient not taking: Reported on 11/16/2022) 15 mL 0 albuterol HFA (PROVENTIL HFA, VENTOLIN HFA) 90 mcg/actuation inhaler Inhale 2 Puffs as instructed every 4 hours as needed. 18 g 1 Blood-Glucose Meter (TRUE METRIX GLUCOSE METER) Testing one time daily and as needed DX E11.65 Insulin YES 1 Each 0 Lidocaine-Hydrocortisone Ac 3-0.5 % crea by RECTAL route twice daily for 14 days. 28.3 g 1 Blood-Glucose Meter (ONETOUCH VERIO METER) Test blood sugar 4 times daily. Dx: Type 2 DM. Uncontrolled E11.65. Insulin: yes. 1 Each 0 blood sugar diagnostic (ONETOUCH VERIO TEST STRIPS) test strip Test blood sugar 4 times daily. Dx: Type 2 DM. Uncontrolled E11.65. Insulin: yes 150 Strip 11 Zinc Oxide 40 % oint Apply to affected area as needed. 57 g 3 Ostomy Supplies (ADHESIVE REMOVER WIPES) swab All Care brand. Use as directed 100 Each 5 fluPHENAZine (PROLIXIN) 1 mg tablet Take 3 mg by mouth once daily. blood sugar diagnostic (BLOOD GLUCOSE TEST) test strip Test blood sugar(s) 1 times daily and as needed. Dx: Type 2 DM - Uncontrolled E1165 Insulin: Yes 50 Strip 11 Nebulizer Accessories [facility] [place]eds new nebulizer mask, hose and supplies. (J45.20) Intermittent asthma without complication 1 Each 0 phenazopyridine (PYRIDIUM) 100 mg tablet Take 1 tablet by mouth three times daily as needed. 12 tablet 0 Nebulizer New (not refurbished) NEBULIZER FOR HOME USE with Duoneb 4 x a day. DX: J45.909, Z87.09. Lifetime supplies of mask/tubing, patient has tracheostomy. 1 Kit 1 tapentadol (NUCYNTA) 75 mg tab Take 50 mg by mouth three times daily. Taking 1 three times a day per Dr Trevizo. 0 blood sugar diagnostic (FREESTYLE INSULINX) test strip Test blood sugar(s) 4 times daily and as needed. Dx: Type 2 DM - Uncontrolled E11.65 Insulin: Yes 150 Strip 11 Adhesive Tape (DURAPORE SURGICAL) 2 X 10 -yard tape Use for dressings for healing tracheostomy site. 1 Each 1 traZODone (DESYREL) 100 mg tablet Take 3 tablets by mouth daily at bedtime. ([facility]) topiramate (TOPAMAX) 100 mg tablet Take 1 tablet by mouth once daily. Per psychiatrist (Patient taking differently: Take 300 mg by mouth daily at bedtime. Per psychiatrist) VRAYLAR 3 mg cap Take 3 mg by mouth daily at bedtime. white petrolatum-mineral oil (EUCERIN) cream Apply 1 application to affected area as needed for Dry Skin (all dry skin areas). 120 g 1 No current facility-administered medications for this visit. PAST SURGICAL HISTORY Procedure Laterality Date ANESTH,VAGINAL DELIVERY 1977,1979,1985, 1986 w/ episiotomies APPENDECTOMY DILATION & CURETTAGE DX&/THER NONOBSTETRIC 1977 Dilation & curettage INDUCED DILATION AND CURETTAGE LIG/TRNSXJ FLP TUBE ABDL/VAG APPR UNI/BI Tubal ligation NEUROPLASTY &/TRANSPOS MEDIAN NRV CARPAL TUNNE 2006 Carpal tunnel decomp right NEUROPLASTY &/TRANSPOS MEDIAN NRV CARPAL TUNNE Carpal tunnel decomp left PAST SURGICAL HISTORY OF 2004 Abdominal surgeries for hernia repairs PAST SURGICAL HISTORY OF 2008 Ileostomy PAST SURGICAL HISTORY OF 09/12/2016 Underwent ex lap, takedown of prior ostomy, RONEY and creation of new end ileostomy on 09/12/16 for parastomal hernia with closed loop hernia PAST SURGICAL HISTORY OF 09/28/2016 Permanent Pacemaker Placement for complete heart block REDUCE BOWEL OBSTRUCTION Late February 2015 acute bowel obstruction. SB resection. REVJ COLOSTOMY COMP RCNSTJ IN-DEPTH SPX 2000 3-4 surgeries TONSILLECTOMY PRIMARY/SECONDARY AGE 10/> TRACHEOSTOMY HX 03/12/2015 protracted critical stay, failure to wean after bowel obtruction FAMILY HISTORY Problem Relation Age of Onset other (Pneumonia) Mother Heart Father Thyroid Daughter Thyroid Daughter Asthma No Family History Cancer No Family History No lung cancer. COPD No Family History Social History Tobacco Use Smoking status: Former Packs/day: 2.00 Years: 45.00 Additional pack years: 0.00 Total pack years: 90.00 Types: Cigarettes Start date: 1965 Quit date: 08/27/2010 Years since quittin.3 Smokeless tobacco: Current Tobacco comments: Medical Vaping Use Vaping Use: Never used Substance Use Topics Alcohol use: No Drug use: Not Currently Types: Marijuana Comment: Cocaine abuse, quit before 1999. Medical Marijuana Objective BP 140/85 Pulse 75 Temp 36.5 C (97.7 F) Resp 18 Wt 88.5 kg (195 lb 3.2 oz) SpO2 94% BMI 31.51 kg/m Physical Exam Vitals reviewed. Constitutional: Appearance: Normal appearance. HENT: Head: Normocephalic and atraumatic. Musculoskeletal: Hands: Comments: Patient has erythema of the distal phalanx with paronychia present. Fairly large pus pocket adjacent to the nail visualized. No sign of a felon. This was needle drained and moderate purulent discharge expressed. Covered with bandage. Also placed in a finger splint. Skin: General: Skin is warm and dry. Neurological: Mental Status: She is alert. Assessment and Plan ASSESSMENT/PLAN: 1. Paronychia of finger, left - ICD9: 681.02, ICD10: L03.012 I did drain the paronychia here. X-ray is not available today and due to her smashing in the car door I did feel that this was indicated. She will come back tomorrow to have x-ray. If she has a fracture on top of the paronychia I would recommend she see orthopedics. Recommended warm soaks. Doxycycline sent due to multiple allergies. Wound culture also pending. - ABSCESS AND WOUND CULTURE WITH GRAM STAIN - XR DIGIT GENERAL 3V FRONTAL/LAT/OBL LEFT Lisa Tinoco PA-C documented in this encounter [facility] 01-08-2023 Instructions Lisa Tinoco PA-C - 01/08/2023 1:20 PM EST Soak the finger in warm water several times a day. If not improving follow-up with PCP. documented in this encounter [facility] 01-03-2023 Miscellaneous Notes Patient is changing pharmacy. Patient has been identified by name and date of : Yes Patient phones for refill(s): Requested Prescriptions Pending Prescriptions Disp Refills omeprazole (PRILOSEC) 20 mg capsule [Pharmacy Med Name: omeprazole 20 mg capsule,delayed release] 90 capsule 1 Sig: TAKE ONE CAPSULE BY MOUTH EVERY DAY 30 MINUTES BEFORE breakfast Date of last office visit in primary care: 11/16/2022 Date of next office visit in primary care: 03/31/2023 Last 2 Encounter Wt Readings: Date: Wt: 11/16/2022 86.6 kg (191 lb) 11/01/2022 88.5 kg (195 lb 3.2 oz) Previous labs/tests for medication: Not applicable Please advise. Thank you. Jessica Dominguez LPN. documented in this encounter [facility] 12-22-2022 History of Presen t illness Narrative Last saw pcp: 11/16/22 Subjective: Patient presents to clinic c/o painful toenails. They state that the nails are especially painful with shoe gear and pressure. Patient states that nails 1-5 b/l are painful. Patient admits to being diabetic and states that their blood sugar was 400 mg/dL yesterday. No other pedal complaints at this time. Patient states no change in medications or medical history since last visit. Objective: Patient presents to clinic ambulating in [facility] Vasc: DP and PT pulses are palpable bilateral. CFT is less than 5 seconds bilateral. Skin temperature is warm to cool proximal to distal bilateral. There is mild edema or varicosities noted. Neuro: Protective sensation is intact to the foot and toes when tested with the 5.07 SWM bilateral. Vibratory sensation is absent at the hallux IPJ bilateral. The hallux is downgoing bilateral. Derm: Nails 1-5 b/l are painful, discolored-yellow, thick, crumbly, dystrophic and with subungal debris. Skin is of normal turgor, texture and hair growth is present bilateral. There are no hyperkeratosis, ulcerations, scars, verruca or other lesions noted. Ortho: Muscle strength is 5/5 for all pedal groups tested. Ankle joint DF is full with the knee extended with no pain or crepitus noted. 1st MPJ ROM is full bilateral. 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 Nails 1-5 bilateral were debrided in length and thickness. Patient was instructed on the continued importance of diabetic foot care along with proper diet and keeping their blood sugar under control to prevent complications. Patient informed that diet and exercise is necessary for better control of sugars Patient is to RTC in 3-4 months. Suzanna Escalante DPM AMB ROOMING INTAKE FLOWSHEET DATA Some tingling in feet but no pain. documented in this encounter [facility] 12-22-2022 Instructions Suzanna Escalante - 12/22/2022 1:45 PM EDT Diabetes Foot Care Instructions When you have diabetes, proper foot care is very important. Poor foot care may lead to amputation of a foot or leg. As a person with diabetes, you are more vulnerable to foot problems, because diabetes can damage your nerves and reduce blood flow to your feet. Here are some diabetes foot care tips to follow: Wash and Dry Your Feet Daily Use mild soaps Use warm water Pat your skin dry; do not rub. Thoroughly dry your feet. After washing, use lotion on your feet to prevent cracking. Do not put lotion between your toes. Examine Your Feet Each Day Check the tops and bottoms of your feet. Have someone else look at your feet if you cannot see them. Check for dry, cracked skin. Look for blisters, cuts, scratches, or other sores. Check for redness, increased warmth, or tenderness when touching any area of your feet. Check for ingrown toenails, corns, and calluses. If you get a blister or sore from your shoes, do not pop it. Apply a bandage and wear a different pair of shoes. Take Care of Your Toenails Cut toenails after bathing, when they are soft. Cut toenails straight across and smooth with a nail file. Avoid cutting into the corners of toes. Do not cut cuticles. If you have neuropathy (or decreased sensation in your feet) a sports analyst should always cut your toenails. Be Careful When Exercising Walk and exercise in comfortable shoes. Do not exercise when you have open sores on your feet. Protect Your Feet With Shoes and Socks Never go barefoot. Always protect your feet by wearing shoes or hard-soled slippers or footwear. Avoid shoes with high heels and pointed toes. Avoid shoes that expose your toes or heels (such as open-toed shoes or sandals). These types of shoes increase your risk for injury and potential infections. Try on new footwear with the type of socks you usually wear. Do not wear new shoes for more than an hour at a time. Change your socks daily. Look and feel inside your shoes before putting them on to make sure there are no foreign objects or rough areas. Avoid tight socks. Wear natural-fiber socks (cotton, wool, or a cotton-wool blend). Wear special shoes if your health care provider recommends them. Wear shoes/boots that will protect your feet from various weather conditions (cold, moisture, etc.). Make sure your shoes fit properly. If you have neuropathy (nerve damage), you may not notice that your shoes are too tight. Perform the footwear test described below. Footwear Test Use this simple test to see if your shoes fit correctly: Stand on a piece of paper. (Make sure you are standing and not sitting, because your foot changes shape when you stand.) Trace the outline of your foot. Trace the outline of your shoe. Compare the tracings: Is the shoe too narrow? Is your foot crammed into the shoe? The shoe should be at least 1/2 inch longer than your longest toe and as wide as your foot. Proper Shoe Choices The following types of shoes are best for people with diabetes Closed toes and heels Leather uppers without a seam inside At least 1/2 inch extra space at the end of your longest toe Inside of shoe should be soft with no rough areas Outer sole should be made of stiff material Shoes should be at least as wide as your feet Tips for Foot Care in Diabetes Don't wait to treat a minor foot problem if you have diabetes. Follow your health care provider's guidelines and first aid guidelines. Report foot injuries and infections to your health care provider immediately. Check water temperature with your elbow, not your foot. Do not use a heating pad on your feet. Do not cross your legs. Do not self-treat your corns, calluses, or other foot problems. Go to your health care provider or sports analyst to treat these conditions. documented in this encounter [facility] 11-24-2022 Miscellaneous Notes Okayed Patient has been identified by name and date of : Yes Last office visit in this department: 11/16/2022 RX INSTRUCTIONS: Patient aware RX will be sent to pharmacy. No need to notify patient. Patient phones requesting refills as follows: Requested Prescriptions Pending Prescriptions Disp Refills blood sugar diagnostic (BLOOD GLUCOSE TEST) test strip 150 Strip 11 Sig: Test blood sugar(s) 4 times daily and as needed as directed. Dx: Type 2 DM - Uncontrolled E11.65 Insulin: Yes Please review and advise. Shelly Anglin documented in this encounter [facility] 11-18-2022 Miscellaneous Notes Patient calling with request for lab result. Patient denies any new or worsening symptoms of which a provider is not aware: Yes. Pt stated she miss a call regarding lab result. Informed pt that the strep culture can take up to 72 hours and she should call back in the morning. She stated understanding. Conference pt to the appt center to make sooner f/u appt. . documented in this encounter [facility] 11-18-2022 Miscellaneous Notes Last Office Visit: 11/16/2022 Future Office Visit: 12/26/2022 Requested Prescriptions Pending Prescriptions Disp Refills ketoconazole (NIZORAL) 2 % cream 30 g 2 Sig: Apply 1 application to affected area once daily. as needed hydrocortisone 2.5 % cream 28 g 2 Sig: Apply 1 application to affected area twice daily as needed. Location: neck (reaction to tape adhesive) May also use for poison tania. Use up to 14 days per episode of rash. triamcinolone acetonide (KENALOG) 0.1 % cream 30 g 1 Sig: Apply 1 application to affected area three times daily. Apply sparingly to area for rash/itching till rash resolves. For contact dermatitis Lancets lancets 100 Each 11 Sig: Test blood sugar(s) 1 times daily and as needed. Dx: Type 2 DM - Uncontrolled E11.65 Insulin: Yes alcohol swabs (SURE-PREP ALCHOLOL PREP PADS) 200 Each 11 Sig: Test blood sugars 4 x's daily. Dx: E11.65 Insulin: Yes insulin glargine (LANTUS SOLOSTAR U-100 INSULIN) 100 unit/mL (3 mL) 5 Each 4 Sig: Inject 18 Units subcutaneously daily at bedtime AND 2 Units daily at bedtime. Adjust as directed (2 units to prime pen needle. miconazole (CADENCE ANTIFUNGAL) 2 % cream 42.5 g 11 Sig: Apply 1 application to affected area twice daily. To perirectal and buttocks area documented in this encounter [facility] 11-16-2022 Note HNO ID: [id number] Author: Shawn Veronica APRN.MEDICAL RECORDS CUSTODIAN Service: ? Author Type: Nurse Practitioner Type: Progress Notes Filed: 01/10/2023 2:34 PM Note Text: SUBJECTIVE Christopher Hobson is a 62 year old female here today for an ER follow up. Chief Complaint Patient presents with: ER F/U: [facility] ER 11/13/22 from a fall with left hip pain Vaginal Problem: complaints of yellow discharge with a smell and burning with urination HPI Christopher Hobson is a 62 year old female established patient. Presents with concerns of ER follow up. Seen in the ER at [facility] on 11/13/2022. Records available for review in Care Everywhere. She had a fall with subsequent left hip pain. XR of hip without evidence of displaced pelvic or hip fracture. Also seen in ER at the same time for a sore throat. Rapid strep negative. Suspected viral. Hip is still sore, bruising not visible. Feels unsteady. Uncomfortable to put weight on her leg. Not better but not worse, staying the same. No increased swelling. Sees pain management. Appointment this week. Sore throat still off and on. Today she also reports yellow vaginal discharge with odor and burning with urination. Onset a few weeks ago. Burning started after the vaginal pain. No vaginal itching or pain but does have burning. Has had yeast infections in the past but did not feel like this. She does note also having an anal fissure/fistula. Her medications were reviewed today and her list is now up to date. Medications Current Outpatient Medications Medication Sig fluticasone-salmeterol (ADVAIR DISKUS) 100-50 mcg/dose inhaler Inhale 1 Puff as instructed twice daily. Rinse mouth out after use with water. pravastatin (PRAVACHOL) 40 mg tablet Take 1 tablet by mouth once daily. melatonin 10 mg tab Take 1 tablet by mouth at bedtime as needed for for insomnia. guaiFENesin (MUCINEX) 600 mg 12 hr tablet Take 2 tablets by mouth twice daily. INGREZZA 80 mg capsule Take 1 tablet by mouth once daily. triamcinolone acetonide (KENALOG) 0.1 % cream Apply 1 application to affected area three times daily. Apply sparingly to area for rash/itching till rash resolves. For contact dermatitis glimepiride (AMARYL) 4 mg tablet Take 1 tablet by mouth daily with breakfast. Patient may take an extra half pill once a day for blood sugars over 200. diclofenac (VOLTAREN ARTHRITIS PAIN) 1 % topical gel Apply 2 g to affected area four times daily. omeprazole (PRILOSEC) 20 mg capsule Take 1 capsule by mouth daily before breakfast. 1/2 hr before meal. magnesium oxide (MAG-OX) 400 mg (241.3 mg magnesium) tablet Take 1 tablet by mouth once daily. fluticasone (FLONASE) 50 mcg/actuation nasal spray Use 2 Sprays in each nostril once daily. Rinse mouth after use. hydrocortisone 2.5 % cream Apply 1 application to affected area twice daily as needed. Location: neck (reaction to tape adhesive) May also use for poison tania. Use up to 14 days per episode of rash. insulin glargine (LANTUS SOLOSTAR U-100 INSULIN) 100 unit/mL (3 mL) Inject 18 Units subcutaneously daily at bedtime AND 2 Units daily at bedtime. Adjust as directed (2 units to prime pen needle. ipratropium-albuterol (DUONEB) 0.5 mg-3 mg(2.5 mg base)/3 mL nebu Inhale 3 mL as instructed four times daily as needed (wheezing). Use over 5-15minutes per nebulizer. albuterol HFA (PROVENTIL HFA, VENTOLIN HFA) 90 mcg/actuation inhaler Inhale 2 Puffs as instructed every 4 hours as needed. miconazole (CADENCE ANTIFUNGAL) 2 % cream Apply 1 application to affected area twice daily. To perirectal and buttocks area ketoconazole (NIZORAL) 2 % cream Apply 1 application to affected area once daily. as needed fluPHENAZine (PROLIXIN) 1 mg tablet Take 3 mg by mouth once daily. phenazopyridine (PYRIDIUM) 100 mg tablet Take 1 tablet by mouth three times daily as needed. tapentadol (NUCYNTA) 75 mg tab Take 50 mg by mouth three times daily. Taking 1 three times a day per Dr Trevizo. traZODone (DESYREL) 100 mg tablet Take 3 tablets by mouth daily at bedtime. ([facility]) topiramate (TOPAMAX) 100 mg tablet Take 1 tablet by mouth once daily. Per psychiatrist (Patient taking differently: Take 300 mg by mouth daily at bedtime. Per psychiatrist) VRAYLAR 3 mg cap Take 3 mg by mouth daily at bedtime. predniSONE (DELTASONE) 10 mg tablet Take 2 tabs po BID for 2 days then 1 tab po BID for 2 days then 1/2 tab po BID for 2 days then 1/2 tab daily for 2 days then stop metroNIDAZOLE (FLAGYL) 500 mg tablet Take 1 tablet by mouth twice daily for 7 days. clotrimazole (LOTRIMIN) 1 % cream Apply to affected area twice daily. benzonatate (TESSALON PERLES) 100 mg capsule Take 1-2 capsules by mouth three times daily as needed. (Patient not taking: Reported on 11/16/2022) zcznybuxapQRAWT-sqmbkk-pwyayztpf (BMX 1:1:1) 1:1:1 liqd Mix in equal amounts - 1 T every 2hrs as needed for mouth pain, Swish/swallow or expectorate. (8oz) (Patient not taking: Reported (more content not included)... [facility] 11-16-2022 History of Presen t illness Narrative SUBJECTIVE Christopher Hobson is a 62 year old female here today for an ER follow up. Chief Complaint Patient presents with: ER F/U: [facility] ER 11/13/22 from a fall with left hip pain Vaginal Problem: complaints of yellow discharge with a smell and burning with urination HPI Christopher Hobson is a 62 year old female established patient. Presents with concerns of ER follow up. Seen in the ER at [facility] on 11/13/2022. Records available for review in Care Everywhere. She had a fall with subsequent left hip pain. XR of hip without evidence of displaced pelvic or hip fracture. Also seen in ER at the same time for a sore throat. Rapid strep negative. Suspected viral. Hip is still sore, bruising not visible. Feels unsteady. Uncomfortable to put weight on her leg. Not better but not worse, staying the same. No increased swelling. Sees pain management. Appointment this week. Sore throat still off and on. Today she also reports yellow vaginal discharge with odor and burning with urination. Onset a few weeks ago. Burning started after the vaginal pain. No vaginal itching or pain but does have burning. Has had yeast infections in the past but did not feel like this. She does note also having an anal fissure/fistula. Her medications were reviewed today and her list is now up to date. Medications Current Outpatient Medications Medication Sig fluticasone-salmeterol (ADVAIR DISKUS) 100-50 mcg/dose inhaler Inhale 1 Puff as instructed twice daily. Rinse mouth out after use with water. pravastatin (PRAVACHOL) 40 mg tablet Take 1 tablet by mouth once daily. melatonin 10 mg tab Take 1 tablet by mouth at bedtime as needed for for insomnia. guaiFENesin (MUCINEX) 600 mg 12 hr tablet Take 2 tablets by mouth twice daily. INGREZZA 80 mg capsule Take 1 tablet by mouth once daily. triamcinolone acetonide (KENALOG) 0.1 % cream Apply 1 application to affected area three times daily. Apply sparingly to area for rash/itching till rash resolves. For contact dermatitis glimepiride (AMARYL) 4 mg tablet Take 1 tablet by mouth daily with breakfast. Patient may take an extra half pill once a day for blood sugars over 200. diclofenac (VOLTAREN ARTHRITIS PAIN) 1 % topical gel Apply 2 g to affected area four times daily. omeprazole (PRILOSEC) 20 mg capsule Take 1 capsule by mouth daily before breakfast. 1/2 hr before meal. magnesium oxide (MAG-OX) 400 mg (241.3 mg magnesium) tablet Take 1 tablet by mouth once daily. fluticasone (FLONASE) 50 mcg/actuation nasal spray Use 2 Sprays in each nostril once daily. Rinse mouth after use. hydrocortisone 2.5 % cream Apply 1 application to affected area twice daily as needed. Location: neck (reaction to tape adhesive) May also use for poison tania. Use up to 14 days per episode of rash. insulin glargine (LANTUS SOLOSTAR U-100 INSULIN) 100 unit/mL (3 mL) Inject 18 Units subcutaneously daily at bedtime AND 2 Units daily at bedtime. Adjust as directed (2 units to prime pen needle. ipratropium-albuterol (DUONEB) 0.5 mg-3 mg(2.5 mg base)/3 mL nebu Inhale 3 mL as instructed four times daily as needed (wheezing). Use over 5-15minutes per nebulizer. albuterol HFA (PROVENTIL HFA, VENTOLIN HFA) 90 mcg/actuation inhaler Inhale 2 Puffs as instructed every 4 hours as needed. miconazole (CADENCE ANTIFUNGAL) 2 % cream Apply 1 application to affected area twice daily. To perirectal and buttocks area ketoconazole (NIZORAL) 2 % cream Apply 1 application to affected area once daily. as needed fluPHENAZine (PROLIXIN) 1 mg tablet Take 3 mg by mouth once daily. phenazopyridine (PYRIDIUM) 100 mg tablet Take 1 tablet by mouth three times daily as needed. tapentadol (NUCYNTA) 75 mg tab Take 50 mg by mouth three times daily. Taking 1 three times a day per Dr Trevizo. traZODone (DESYREL) 100 mg tablet Take 3 tablets by mouth daily at bedtime. ([facility]) topiramate (TOPAMAX) 100 mg tablet Take 1 tablet by mouth once daily. Per psychiatrist (Patient taking differently: Take 300 mg by mouth daily at bedtime. Per psychiatrist) VRAYLAR 3 mg cap Take 3 mg by mouth daily at bedtime. predniSONE (DELTASONE) 10 mg tablet Take 2 tabs po BID for 2 days then 1 tab po BID for 2 days then 1/2 tab po BID for 2 days then 1/2 tab daily for 2 days then stop metroNIDAZOLE (FLAGYL) 500 mg tablet Take 1 tablet by mouth twice daily for 7 days. clotrimazole (LOTRIMIN) 1 % cream Apply to affected area twice daily. benzonatate (TESSALON PERLES) 100 mg capsule Take 1-2 capsules by mouth three times daily as needed. (Patient not taking: Reported on 11/16/2022) xpmzquegqsGWSZV-foknsm-ozoyodxli (BMX 1:1:1) 1:1:1 liqd Mix in equal amounts - 1 T every 2hrs as needed for mouth pain, Swish/swallow or expectorate. (8oz) (Patient not taking: Reported on 11/16/2022) alcohol swabs (SURE-PREP ALCHOLOL PREP PADS) Test blood sugars 4 x's daily. Dx: E11.65 Insulin: Yes insulin needles, DISPOSABLE, (PEN NEEDLE) 31 gauge x 07/19 Use one needle per dose (Lantus and Humalog). 5 per day. Lancets lancets Test blood sugar(s) 1 times daily and as needed. Dx: Type 2 DM - Uncontrolled E11.65 Insulin: Yes Nebulizer and Compressor For Neb 1 Each as needed (Use as directed for treatment of asthma). Nebulizer [place] [facility] [place] new nebulizer mask, hose and supplies. (J45.20) Intermittent asthma without complication prednisoLONE acetate (PRED FORTE) 1 % ophthalmic suspension Use 1 Drop in the right eye four times daily. (Patient not taking: Reported on 11/16/2022) blood sugar diagnostic (TRUE METRIX GLUCOSE TEST STRIP) test strip Check blood sugar 4 times daily. DX: E11.65. Insulin : yes vancomycin 25 mg/mL ophthalmic drops ([facility]) Use 1 Drop in the right eye every 2 hours. (Patient not taking: Reported on 11/16/2022) cefTAZidime ophthalmic solution 2.5% (25 mg/mL) (IP-CPD) Use 1 Drop in the right eye every 4 hours while awake. (Patient not taking: Reported on 11/16/2022) Blood-Glucose Meter (TRUE METRIX GLUCOSE METER) Testing one time daily and as needed DX E11.65 Insulin YES Lidocaine-Hydrocortisone Ac 3-0.5 % crea by RECTAL route twice daily for 14 days. Blood-Glucose Meter (ONETOUCH VERIO METER) Test blood sugar 4 times daily. Dx: Type 2 DM. Uncontrolled E11.. Insulin: yes. blood sugar diagnostic (ONETOUCH VERIO TEST STRIPS) test strip Test blood sugar 4 times daily. Dx: Type 2 DM. Uncontrolled E11.. Insulin: yes Zinc Oxide 40 % oint Apply to affected area as needed. Ostomy Supplies (ADHESIVE REMOVER WIPES) swab [employer] brand. Use as directed blood sugar diagnostic (BLOOD GLUCOSE TEST) test strip Test blood sugar(s) 1 times daily and as needed. Dx: Type 2 DM - Uncontrolled . Insulin: Yes blood sugar diagnostic (BLOOD GLUCOSE TEST) test strip Test blood sugar(s) 4 times daily and as needed as directed. Dx: Type 2 DM - Uncontrolled E11. Insulin: Yes Nebulizer Accessories [facility] [place] Needs new nebulizer mask, hose and supplies. (J45.20) Intermittent asthma without complication Nebulizer New (not refurbished) NEBULIZER FOR HOME USE with Duoneb 4 x a day. DX: J45.909, Z87.09. Lifetime supplies of mask/tubing, patient has tracheostomy. blood sugar diagnostic (FREESTYLE INSULINX) test strip Test blood sugar(s) 4 times daily and as needed. Dx: Type 2 DM - Uncontrolled E11.65 Insulin: Yes Adhesive Tape ([employer]) 2 X 10 -yard tape Use for dressings for healing tracheostomy site. white petrolatum-mineral oil (EUCERIN) cream Apply 1 application to affected area as needed for Dry Skin (all dry skin areas). No current facility-administered medications for this visit. ALLERGIES Allergen Reactions Goss Other: See Comments Tongue blisters Lemon Other: See Comments Tongue blisters. Pears Unknown Cephalosporins itching Ciprofloxacin Anaphylaxis It was used with flagyl at the same time so uknown which is the cause Codeine rash swelling Diclofenac rash Dilaudid [Hydromorp* Itching Lipitor [Atorvastat* Itching Lyrica [Pregabalin] Swelling Opioids - Morphine * rash Penicillins Anaphylaxis ?anaphylaxis, patient tolerates zosyn Percocet [Oxycodone* Itching Soap Sulfa (Sulfonamide * Rash Vicodin [Hydrocodon* Rash Zithromax [Azithrom* Rash ACTIVE PROBLEM LIST Asthma (D priority) Comment: No wheezing on exam -- continue scheduled Duonebs Diabetes Mellitus Type 2, Uncontrolled, Without Complications - 12/18/2007 (G priority) Comment: Type 2 DM, uncontrolled at baseline -- lantus 10 units QD -- Continue TPN with 100 units of insulin in bag -- Continue SSI 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 Magnesium Deficiency - 06/14/2020 Comment: Replacement discussed. 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 Pouched. Ventral Hernia - 10/06/2011 Sleep Apnea - 11/25/2008 Comment: Declines testing for cost issues Hyperlipidemia - 05/07/2008 Comment: LDL 121, HDL 52, TG 240 in 05-12: rec Pravastatin 20 mg TG 482, HDL 44 in 08-12 LDL 122, HDL 51, TG 286 in 11-12: likely NC as same level prior to rec in 05-12 with Pravastatin Macular Degeneration (Senile) of Retina, Unspecified - 12/18/2007 Comment: Sees Dr. Guy as needed as of 12-11 Other Specified Types of Schizophrenia - 10/09/2003 Comment: Not seeing a Psychiatrist for cost issues as of 12-11 Will fill Abilify until 08-12 as pt has appt with psychiatry Social History Tobacco Use Smoking status: Former Packs/day: 2.00 Years: 45.00 Additional pack years: 0.00 Total pack years: 90.00 Types: Cigarettes Start date: 1965 Quit date: 08/27/2010 Years since quittin.2 Smokeless tobacco: Current Tobacco comments: Medical Vaping Use Vaping Use: Never used Substance Use Topics Alcohol use: No Drug use: Not Currently Types: Marijuana Comment: Cocaine abuse, quit before 1999. Medical Marijuana Review of Systems Respiratory: Negative. Cardiovascular: Negative. Genitourinary: Positive for dysuria and vaginal discharge. Negative for decreased urine volume, genital sores, hematuria, urgency and vaginal bleeding. Musculoskeletal: Positive for arthralgias, gait problem and myalgias. Negative for joint swelling. OBJECTIVE BP 100/50 Pulse 71 Wt 191 lb (86.6kg) SpO2 97% Physical Exam Vitals and nursing note reviewed. Constitutional: General: She is awake. She is not in acute distress. Appearance: Normal appearance. She is well-developed and well-groomed. She is not ill-appearing, toxic-appearing or diaphoretic. HENT: Head: Normocephalic. Right Ear: External ear normal. Left Ear: External ear normal. Nose: Nose normal. Mouth/Throat: Palate: Lesions present. Pharynx: Posterior oropharyngeal erythema present. No pharyngeal swelling or oropharyngeal exudate. Comments: Posterior palate with fine white dots Eyes: General: Vision grossly intact. Conjunctiva/sclera: Conjunctivae normal. Pupils: Pupils are equal, round, and reactive to light. Neck: Vascular: No JVD. Trachea: Trachea normal. Cardiovascular: Rate and Rhythm: Normal rate and regular rhythm. Pulses: Normal pulses. Heart sounds: Normal heart sounds. No murmur heard. Pulmonary: Effort: Pulmonary effort is normal. No accessory muscle usage, prolonged expiration or respiratory distress. Breath sounds: Normal breath sounds. Musculoskeletal: Cervical back: Neck supple. Left hip: Tenderness (around trochanteric bursa and distal to that landmark) present. No deformity, lacerations, bony tenderness or crepitus. Decreased range of motion. Normal strength. Skin: General: Skin is warm and dry. Capillary Refill: Capillary refill takes less than 2 seconds. Neurological: General: No focal deficit present. Mental Status: She is alert and oriented to person, place, and time. Mental status is at baseline. Psychiatric: Attention and Perception: Attention and perception normal. Mood and Affect: Mood and affect normal. Speech: Speech normal. Behavior: Behavior normal. Behavior is cooperative. Thought Content: Thought content normal. Cognition and Memory: Cognition and memory normal. Judgment: Judgment normal. ASSESSMENT/PLAN: 1. Left hip pain - ICD9: 719.45, ICD10: M25.552 (primary diagnosis) Reviewed ER note, no fractures. Suspect she is having some muscle soreness and suspect a trochanteric bursitis. Can try prednisone taper to help improve pain since options are limited. Discuss pain with pain management provider tomorrow. - PREDNISONE 10 MG TABLET 2. Pharyngitis, unspecified etiology - ICD9: 462, ICD10: J02.9 Rapid strep negative in ER but she does have some erythema and dots so we will culture to be sure antibiotics are not needed. - THROAT CULTURE - PREDNISONE 10 MG TABLET 3. BV (bacterial vaginosis) - ICD9: 616.10, 041.9, ICD10: N76.0, B96.89 Her symptoms are definitely consistent with BV, will start flagyl. Opted not to do a pelvic exam and send swabs given her hip pain and concern of getting on the exam table and being able to get in to a position appropriate for pelvic exam. - METRONIDAZOLE 500 MG TABLET 4. Dysuria - ICD9: 788.1, ICD10: R30.0 Suspect this is from irritation secondary to vaginitis. 5. Anal fissure - ICD9: 565.0, ICD10: K60.2 Reviewed general surgery note, this is an anal fissure, not rectovaginal fistula/fissure. Portions of this note have been entered by ancillary staff. I have reviewed and when necessary edited, so that they are an adequate record of my encounter with this patient Please note that parts of this document were created using voice recognition software and therefore may contain grammatical errors. Patient verbalizes understanding of instructions from today's visit and in agreement with treatment plan. Questions answered. Agrees to call the office if questions, concerns of issues with acute symptoms not improving or if they worsen. See diagnoses and orders for additional plan(s). Allergies and medications were reviewed, list was updated, and refills given if needed. Past medical, surgical, social, and family history reviewed and updated as appropriate. Encouraged proper diet & exercise as well as compliance with taking medications. Age-appropriate health preventative measures were discussed. Return if symptoms worsen or fail to improve, for Keep next scheduled appointment.. Shawn Veronica APRN-DAVIDE documented in this encounter [facility] 11-01-2022 Note HNO ID: [id number] Author: Carmen Avitia RT(R) Service: ? Author Type: Front Desk Supervisor Type: Progress Notes Filed: 11/01/2022 12:16 PM Note Text: Radiology Service Progress Note PATIENT NAME: Christopher Hobson DATE OF SERVICE: November 01, 2022 TIME: 12:08 PM PATIENT IDENTITY VERIFICATION COMPLETED USING TWO (2) IDENTIFIERS: Name and Date of confirmed by patient verbally. FALL SCREENING: Has the patient had 2 falls in the last year or 1 fall with injury or currently using an Ambulatory Assistive Device (Walker, Cane, Wheelchair, Crutches, etc.)? No PATIENT GENDER DATA: Female. status: : No status: NO. PATIENT RELEVANT IMPLANT DATA REVIEWED: Yes RADIOLOGY DEPARTMENT: General X-ray: Exam(s) Completed: Chest X-Ray PERIPHERAL IV DATA: Not applicable SIGNED BY: Carmen Avitia, RT(R) November 01, 2022 12:08 PM [facility] 11-01-2022 Note HNO ID: [id number] Author: Nasima Hunter PA-C Service: ? Author Type: Physician Pyridine Recovery Operator Type: Progress Notes Filed: 11/01/2022 3:04 PM Note Text: 11/01/2022 Patient presents with: Cough: Cough, chest congestion and SOB x 1 month SUBJECTIVE: This is a 61 year old PMH COPD and asthma that is here today for Complaint(s) of cough and chest congestion x 1 month. + intermittent SOB and wheezing. was sick with similar symptoms. She does have an albuterol nebulizer at home that she is using 4 x a day daily. Denies fever/chills, vomiting, diarrhea. Not on maintenance inhaler. Previously on Advair, reports she ran out of the medication. Former smoker. No chest pain. 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 Secondary to E.coli bactremia -- continue norepinephrine and vasopressin to maintain MAP 65 Lunate fracture, closed 11/22/2012 MALIGNANT NEOPLASM COLON NOS(aka COLON) 10/09/2003 Ostomy in LLQ since surgical intervention in 2004 per pt Reviewed eval with Dr. 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 Diabetes on metformin Pain in limb 02/05/2010 Paranoid schizophrenia, chronic condition ([facility]) 1985 Peptic ulcer, unspecified site, unspecified as acute or chronic, without mention of hemorrhage, perforation, or obstruction 10/11/2004 Personal history of colonic polyps 2000 Physical deconditioning 03/14/2015 Due to prolonged ICU stay -- PT/OT consulted -- lift OOB today with lift team Post-op pain 02/25/2015 Fentanyl PRN Postoperative anemia due to acute blood loss 02/25/2015 Hgb 8.8 today, no active bleeding Last transfused 03/14 -- follow daily CBC and coags S/P colostomy ([facility]) SBO (small bowel obstruction) ([facility]) 09/11/2016 Skin lesion 03/09/2015 Skin sloughing on LEs with blisters, indeterminate purple lesions on back -> now improving Per Dermatology consult: linear erosions are most likely irritant contact dermatitis or pressure induced erosions. In addition there are small edema bullae on the abdominal wall Both require gentle wound care and emollients such as aquaphor or petroleum jelly -- monitor Tracheostomy in place ([facility]) Placed 2015 after prolonged respiratory failure, unable to liberate from vent. Unspecified migraine 1998 Ventral hernia with bowel obstruction 09/10/2016 Added automatically from request for surgery [id number] VRE bacteremia 09/29/2016 ALLERGIES Goss, Lemon, Pears, Cephalosporins, Ciprofloxacin, Codeine, Diclofenac, Dilaudid [Hydromorphone (Bulk)], Lipitor [Atorvastatin Calcium], Lyrica [Pregabalin], Opioids - Morphine Analogues, Penicillins, Percocet [Oxycodone-Acetaminophen], Soap, Sulfa (Sulfonamide Antibiotics), Vicodin [Hydrocodone-Acetaminophen], and Zithromax [Azithromycin] MEDICATIONS Current Outpatient Medications Medication Sig pravastatin (PRAVACHOL) 40 mg tablet Take 1 tablet by mouth once daily. melatonin 10 mg tab Take 1 tablet by mouth at bedtime as needed for for insomnia. guaiFENesin (MUCINEX) 600 mg 12 hr tablet Take 2 tablets by mouth twice daily. INGREZZA 80 mg capsule Take 1 tablet by mouth once daily. triamcinolone acetonide (KENALOG) 0.1 % cream Apply 1 application to affected area three times daily. Apply sparingly to area for rash/itching till rash resolves. For contact (more content not included)... [facility] 11-01-2022 Nurse Note 2.5 solution aerosol treatment given per provider's orders. Prior to treatment O2 sat is 93. Treatment completed. O2 sat is 92 Tolerated well. Telma Billings LPN documented in this encounter [facility] 11-01-2022 History of Presen t illness Narrative 11/01/2022 Patient presents with: Cough: Cough, chest congestion and SOB x 1 month SUBJECTIVE: This is a 61 year old H COPD and asthma that is here today for Complaint(s) of cough and chest congestion x 1 month. + intermittent SOB and wheezing. was sick with similar symptoms. She does have an albuterol nebulizer at home that she is using 4 x a day daily. Denies fever/chills, vomiting, diarrhea. Not on maintenance inhaler. Previously on Advair, reports she ran out of the medication. Former smoker. No chest pain. 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 Secondary to E.coli bactremia -- continue norepinephrine and vasopressin to maintain MAP 65 Lunate fracture, closed 11/22/2012 MALIGNANT NEOPLASM COLON NOS(aka COLON) 10/09/2003 Ostomy in LLQ since surgical intervention in 2004 per pt Reviewed eval with Dr. 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 Diabetes on metformin Pain in limb 02/05/2010 Paranoid schizophrenia, chronic condition ([facility]) 1985 Peptic ulcer, unspecified site, unspecified as acute or chronic, without mention of hemorrhage, perforation, or obstruction 10/11/2004 Personal history of colonic polyps 2000 Physical deconditioning 03/14/2015 Due to prolonged ICU stay -- PT/OT consulted -- lift OOB today with lift team Post-op pain 02/25/2015 Fentanyl PRN Postoperative anemia due to acute blood loss 02/25/2015 Hgb 8.8 today, no active bleeding Last transfused 03/14 -- follow daily CBC and coags S/P colostomy ([facility]) SBO (small bowel obstruction) ([facility]) 09/11/2016 Skin lesion 03/09/2015 Skin sloughing on LEs with blisters, indeterminate purple lesions on back -> now improving Per Dermatology consult: linear erosions are most likely irritant contact dermatitis or pressure induced erosions. In addition there are small edema bullae on the abdominal wall Both require gentle wound care and emollients such as aquaphor or petroleum jelly -- monitor Tracheostomy in place (HCC) Placed 2015 after prolonged respiratory failure, unable to liberate from vent. Unspecified migraine 1998 Ventral hernia with bowel obstruction 09/10/2016 Added automatically from request for surgery [id number] VRE bacteremia 09/29/2016 ALLERGIES Goss, Lemon, Pears, Cephalosporins, Ciprofloxacin, Codeine, Diclofenac, Dilaudid [Hydromorphone (Bulk)], Lipitor [Atorvastatin Calcium], Lyrica [Pregabalin], Opioids - Morphine Analogues, Penicillins, Percocet [Oxycodone-Acetaminophen], Soap, Sulfa (Sulfonamide Antibiotics), Vicodin [Hydrocodone-Acetaminophen], and Zithromax [Azithromycin] MEDICATIONS Current Outpatient Medications Medication Sig pravastatin (PRAVACHOL) 40 mg tablet Take 1 tablet by mouth once daily. melatonin 10 mg tab Take 1 tablet by mouth at bedtime as needed for for insomnia. guaiFENesin (MUCINEX) 600 mg 12 hr tablet Take 2 tablets by mouth twice daily. INGREZZA 80 mg capsule Take 1 tablet by mouth once daily. triamcinolone acetonide (KENALOG) 0.1 % cream Apply 1 application to affected area three times daily. Apply sparingly to area for rash/itching till rash resolves. For contact dermatitis metroNIDAZOLE (FLAGYL) 500 mg tablet Take 1 tablet by mouth three times daily. May extend course as directed or take for recurrent infection as directed glimepiride (AMARYL) 4 mg tablet Take 1 tablet by mouth daily with breakfast. Patient may take an extra half pill once a day for blood sugars over 200. diclofenac (VOLTAREN ARTHRITIS PAIN) 1 % topical gel Apply 2 g to affected area four times daily. omeprazole (PRILOSEC) 20 mg capsule Take 1 capsule by mouth daily before breakfast. 1/2 hr before meal. magnesium oxide (MAG-OX) 400 mg (241.3 mg magnesium) tablet Take 1 tablet by mouth once daily. fluticasone (FLONASE) 50 mcg/actuation nasal spray Use 2 Sprays in each nostril once daily. Rinse mouth after use. hydrocortisone 2.5 % cream Apply 1 application to affected area twice daily as needed. Location: neck (reaction to tape adhesive) May also use for poison tania. Use up to 14 days per episode of rash. lutttzzewoQGZAK-iyuieq-uuhjltgrc (BMX 1:1:1) 1:1:1 liqd Mix in equal amounts - 1 T every 2hrs as needed for mouth pain, Swish/swallow or expectorate. (8oz) insulin glargine (LANTUS SOLOSTAR U-100 INSULIN) 100 unit/mL (3 mL) Inject 18 Units subcutaneously daily at bedtime AND 2 Units daily at bedtime. Adjust as directed (2 units to prime pen needle. alcohol swabs (SURE-PREP ALCHOLOL PREP PADS) Test blood sugars 4 x's daily. Dx: E11.65 Insulin: Yes ipratropium-albuterol (DUONEB) 0.5 mg-3 mg(2.5 mg base)/3 mL nebu Inhale 3 mL as instructed four times daily as needed (wheezing). Use over 5-15minutes per nebulizer. insulin needles, DISPOSABLE, (PEN NEEDLE) 31 gauge x 5/16 Use one needle per dose (Lantus and Humalog). 5 per day. Lancets lancets Test blood sugar(s) 1 times daily and as needed. Dx: Type 2 DM - Uncontrolled E11.65 Insulin: Yes Nebulizer and Compressor For Neb 1 Each as needed (Use as directed for treatment of asthma). Nebulizer Accessories [facility] [place] new nebulizer mask, hose and supplies. (J45.20) Intermittent asthma without complication prednisoLONE acetate (PRED FORTE) 1 % ophthalmic suspension Use 1 Drop in the right eye four times daily. blood sugar diagnostic (TRUE METRIX GLUCOSE TEST STRIP) test strip Check blood sugar 4 times daily. DX: E11.65. Insulin : yes vancomycin 25 mg/mL ophthalmic drops ([facility]) Use 1 Drop in the right eye every 2 hours. cefTAZidime ophthalmic solution 2.5% (25 mg/mL) (IP-CPD) Use 1 Drop in the right eye every 4 hours while awake. albuterol HFA (PROVENTIL HFA, VENTOLIN HFA) 90 mcg/actuation inhaler Inhale 2 Puffs as instructed every 4 hours as needed. Blood-Glucose Meter (TRUE METRIX GLUCOSE METER) Testing one time daily and as needed DX E11.65 Insulin YES miconazole (CADENCE ANTIFUNGAL) 2 % cream Apply 1 application to affected area twice daily. To perirectal and buttocks area Blood-Glucose Meter (ONETOUCH VERIO METER) Test blood sugar 4 times daily. Dx: Type 2 DM. Uncontrolled E11.. Insulin: yes. blood sugar diagnostic (ONETOUCH VERIO TEST STRIPS) test strip Test blood sugar 4 times daily. Dx: Type 2 DM. Uncontrolled E11.. Insulin: yes Zinc Oxide 40 % oint Apply to affected area as needed. ketoconazole (NIZORAL) 2 % cream Apply 1 application to affected area once daily. as needed Ostomy Supplies (ADHESIVE REMOVER WIPES) swab All Care brand. Use as directed fluPHENAZine (PROLIXIN) 1 mg tablet Take 3 mg by mouth once daily. blood sugar diagnostic (BLOOD GLUCOSE TEST) test strip Test blood sugar(s) 1 times daily and as needed. Dx: Type 2 DM - Uncontrolled Insulin: Yes blood sugar diagnostic (BLOOD GLUCOSE TEST) test strip Test blood sugar(s) 4 times daily and as needed as directed. Dx: Type 2 DM - Uncontrolled . Insulin: Yes Nebulizer Accessories [facility] [place]eds new nebulizer mask, hose and supplies. (J45.20) Intermittent asthma without complication phenazopyridine (PYRIDIUM) 100 mg tablet Take 1 tablet by mouth three times daily as needed. Nebulizer New (not refurbished) NEBULIZER FOR HOME USE with Duoneb 4 x a day. DX: J45.909, Z87.09. Lifetime supplies of mask/tubing, patient has tracheostomy. tapentadol (NUCYNTA) 75 mg tab Take 50 mg by mouth three times daily. Taking 1 three times a day per Dr Trevizo. blood sugar diagnostic (FREESTYLE INSULINX) test strip Test blood sugar(s) 4 times daily and as needed. Dx: Type 2 DM - Uncontrolled E11. Insulin: Yes Adhesive Tape ([employer]) 2 X 10 -yard tape Use for dressings for healing tracheostomy site. traZODone (DESYREL) 100 mg tablet Take 3 tablets by mouth daily at bedtime. ([facility]) topiramate (TOPAMAX) 100 mg tablet Take 1 tablet by mouth once daily. Per psychiatrist (Patient taking differently: Take 300 mg by mouth daily at bedtime. Per psychiatrist) VRAYLAR 3 mg cap Take 3 mg by mouth daily at bedtime. white petrolatum-mineral oil (EUCERIN) cream Apply 1 application to affected area as needed for Dry Skin (all dry skin areas). Lidocaine-Hydrocortisone Ac 3-0.5 % crea by RECTAL route twice daily for 14 days. No current facility-administered medications for this visit. SOCIAL HISTORY Social History Tobacco Use Smoking status: Former Packs/day: 2.00 Years: 45.00 Additional pack years: 0.00 Total pack years: 90.00 Types: Cigarettes Start date: 1965 Quit date: 08/27/2010 Years since quittin.1 Smokeless tobacco: Current Tobacco comments: Medical Vaping Use Vaping Use: Never used Substance Use Topics Alcohol use: No Drug use: Not Currently Types: Marijuana Comment: Cocaine abuse, quit before 1999. Medical Marijuana REVIEW OF SYSTEMS See HPI OBJECTIVE: BP 122/80 Pulse 75 Temp 36.9 C (98.4 F) (Tympanic) Resp 18 Wt 88.5 kg (195 lb 3.2 oz) SpO2 93% BMI 31.51 kg/m APPEARANCE alert, in no acute distress, well-hydrated, well nourished. EYES PERRLA, conjunctiva and sclera normal. EARS External ears normal, canals clear. TMs normal NOSE/SINUS Nares normal. Septum midline. Mucosa normal. No drainage or sinus tenderness. THROAT normal, no erythema NECK Supple, no adenopathy; HEART RRR with normal S1 and S2 LUNG scattered expiratory wheezes, no rhonchi, rales. Equal breath sounds SCOTT. EXTREMITIES no calf pain. Nebulizer-Albuterol treatment in office Pre SpO2: 93% [id number]%, wheezing slightly improved. ASSESSMENT/PLAN: 1. Wheezing - ICD9: 786.07, ICD10: R06.2 (primary diagnosis) - ALBUTEROL SULFATE 2.5 MG/3 ML (0.083 %) SOLUTION FOR NEBULIZATION - XR CHEST 2V FRONTAL/LAT - FLUTICASONE 100 MCG-SALMETEROL 50 MCG/DOSE BLISTR POWDR FOR INHALATION - DOXYCYCLINE HYCLATE 100 MG TABLET 2. Acute cough - ICD9: 786.2, ICD10: R05.1 CXR unremarkable. - ALBUTEROL SULFATE 2.5 MG/3 ML (0.083 %) SOLUTION FOR NEBULIZATION - XR CHEST 2V FRONTAL/LAT - FLUTICASONE 100 MCG-SALMETEROL 50 MCG/DOSE BLISTR POWDR FOR INHALATION - DOXYCYCLINE HYCLATE 100 MG TABLET 3. Chronic obstructive pulmonary disease, unspecified COPD type (HCC) - ICD9: 496, ICD10: J44.9 Advise f/u with pulmonary Has f/u with PCP office in a few weeks. Restart advair. - FLUTICASONE 100 MCG-SALMETEROL 50 MCG/DOSE BLISTR POWDR FOR INHALATION 4. Asthma with COPD with exacerbation (HCC) - ICD9: 493.22, ICD10: J44.1, J45.901 Avoid prednisone with uncontrolled DM. Albuterol and neb treatment at home prn - FLUTICASONE 100 MCG-SALMETEROL 50 MCG/DOSE BLISTR POWDR FOR INHALATION F/u if not improving, sooner if worsening. F/u scheduled next week for recheck. Reviewed red flags and when to seek care sooner. Re The patient indicates understanding of these issues and agrees with the plan. Nasima Hunter PA-C documented in this encounter [facility] 10-24-2022 Miscellaneous Notes Okayed Last Office Visit 06/28/2022 Future Office Visit: 12/26/2022 Requested Prescriptions Pending Prescriptions Disp Refills pravastatin (PRAVACHOL) 40 mg tablet 90 tablet 3 Sig: Take 1 tablet by mouth once daily. melatonin 10 mg tab 30 tablet 3 Sig: Take 1 tablet by mouth at bedtime as needed for for insomnia. documented in this encounter [facility] 10-08-2022 Miscellaneous Notes Left detailed message on a secured voicemail. Jenny Pedraza You tested negative for COVID. If you were tested because you were having symptoms, please monitor these symptoms and for any worrisome symptoms, please call your primary care provider or schedule a visit with [facility]. Annmarie Castillo APRN.CNP documented in this encounter [facility] 10-07-2022 Note HNO ID: [id number] Author: Anthony Lizarraga MD Service: ? Author Type: Physician Type: Progress Notes Filed: 10/07/2022 12:07 PM Note Text: Patient presents with: Sore Throat: Cough x1 day, bodyaches HPI: Feeling sick for 1 day. Her is sick with URI symptoms. She is not feeling too bad yet. Positive symptoms: Cough (throat phlegm), Sore throat, Body Aches, Negative symptoms: Nasal Congestion, Rhinorrhea, Vomiting, Diarrhea, MEDICATIONS: Current Outpatient Medications Medication Sig guaiFENesin (MUCINEX) 600 mg 12 hr tablet Take 2 tablets by mouth twice daily. INGREZZA 80 mg capsule Take 1 tablet by mouth once daily. triamcinolone acetonide (KENALOG) 0.1 % cream Apply 1 application to affected area three times daily. Apply sparingly to area for rash/itching till rash resolves. For contact dermatitis metroNIDAZOLE (FLAGYL) 500 mg tablet Take 1 tablet by mouth three times daily. May extend course as directed or take for recurrent infection as directed glimepiride (AMARYL) 4 mg tablet Take 1 tablet by mouth daily with breakfast. Patient may take an extra half pill once a day for blood sugars over 200. melatonin 10 mg tab Take 1 tablet by mouth at bedtime as needed for for insomnia. diclofenac (VOLTAREN ARTHRITIS PAIN) 1 % topical gel Apply 2 g to affected area four times daily. omeprazole (PRILOSEC) 20 mg capsule Take 1 capsule by mouth daily before breakfast. 1/2 hr before meal. magnesium oxide (MAG-OX) 400 mg (241.3 mg magnesium) tablet Take 1 tablet by mouth once daily. fluticasone (FLONASE) 50 mcg/actuation nasal spray Use 2 Sprays in each nostril once daily. Rinse mouth after use. hydrocortisone 2.5 % cream Apply 1 application to affected area twice daily as needed. Location: neck (reaction to tape adhesive) May also use for poison tania. Use up to 14 days per episode of rash. cvzilunlntBWEJO-eyeryx-yowhjmhcl (BMX 1:1:1) 1:1:1 liqd Mix in equal amounts - 1 T every 2hrs as needed for mouth pain, Swish/swallow or expectorate. (8oz) (Patient not taking: Reported on 06/07/2022) pravastatin (PRAVACHOL) 40 mg tablet Take 1 tablet by mouth once daily. insulin glargine (LANTUS SOLOSTAR U-100 INSULIN) 100 unit/mL (3 mL) Inject 18 Units subcutaneously daily at bedtime AND 2 Units daily at bedtime. Adjust as directed (2 units to prime pen needle. alcohol swabs (SURE-PREP ALCHOLOL PREP PADS) Test blood sugars 4 x's daily. Dx: E11.65 Insulin: Yes ipratropium-albuterol (DUONEB) 0.5 mg-3 mg(2.5 mg base)/3 mL nebu Inhale 3 mL as instructed four times daily as needed (wheezing). Use over 5-15minutes per nebulizer. insulin needles, DISPOSABLE, (PEN NEEDLE) 31 gauge x 5/16 Use one needle per dose (Lantus and Humalog). 5 per day. Lancets lancets Test blood sugar(s) 1 times daily and as needed. Dx: Type 2 DM - Uncontrolled E11.65 Insulin: Yes Nebulizer and Compressor For Neb 1 Each as needed (Use as directed for treatment of asthma). Nebulizer [place] [facility] [place] nebulizer mask, hose and supplies. (J45.20) Intermittent asthma without complication prednisoLONE acetate (PRED FORTE) 1 % ophthalmic suspension Use 1 Drop in the right eye four times daily. (Patient not taking: Reported on 06/07/2022) blood sugar diagnostic (TRUE METRIX GLUCOSE TEST STRIP) test strip Check blood sugar 4 times daily. DX: E11.65. Insulin : yes vancomycin 25 mg/mL ophthalmic drops ([facility]) Use 1 Drop in the right eye every 2 hours. (Patient not taking: Reported on 05/31/2022) cefTAZidime ophthalmic solution 2.5% (25 mg/mL) (IP-CPD) Use 1 Drop in the right eye every 4 hours while awake. (Patient not taking: Reported on 04/30/2022) albuterol HFA (PROVENTIL HFA, VENTOLIN HFA) 90 mcg/actuation inhaler Inhale 2 Puffs as instructed every 4 hours as needed. Blood-Glucose Meter (TRUE METRIX GLUCOSE METER) Testing one time daily and as needed DX E11.65 Insulin YES Lidocaine-Hydrocortisone Ac 3-0.5 % crea by RECTAL route twice daily for 14 days. miconazole (CADENCE ANTIFUNGAL) 2 % cream Apply 1 application to affected area twice daily. To perirectal and buttocks area Blood-Glucose Meter (ONETOUCH VERIO METER) Test blood sugar 4 times daily. Dx: Type 2 DM. Uncontrolled E11.65. Insulin: yes. blood sugar diagnostic (ONETOUCH VERIO TEST STRIPS) test strip Test blood sugar 4 times daily. Dx: Type 2 DM. Uncontrolled E11.65. Insulin: yes Zinc Oxide 40 % oint Apply to affected area as needed. ketoconazole (NIZORAL) 2 % cream Apply 1 application to affected area once daily. as needed Ostomy Supplies (ADHESIVE REMOVER WIPES) swab All Care brand. Use as directed fluPHENAZine (PROLIXIN) 1 mg tablet Take 3 mg by mouth once daily. blood sugar diagnostic (BLOOD GLUCOSE TEST) test strip Test blood sugar(s) 1 times daily and as needed. Dx: Type 2 DM - Uncontrolled E11.65 Insulin: Yes blood sugar diagnostic (BLOOD GLUCOSE TEST) test strip Test blood sugar(s) 4 times daily a (more content not included)... [facility] 10-07-2022 History of Presen t illness Narrative Patient presents with: Sore Throat: Cough x1 day, bodyaches HPI: Feeling sick for 1 day. Her is sick with URI symptoms. She is not feeling too bad yet. Positive symptoms: Cough (throat phlegm), Sore throat, Body Aches, Negative symptoms: Nasal Congestion, Rhinorrhea, Vomiting, Diarrhea, MEDICATIONS: Current Outpatient Medications Medication Sig guaiFENesin (MUCINEX) 600 mg 12 hr tablet Take 2 tablets by mouth twice daily. INGREZZA 80 mg capsule Take 1 tablet by mouth once daily. triamcinolone acetonide (KENALOG) 0.1 % cream Apply 1 application to affected area three times daily. Apply sparingly to area for rash/itching till rash resolves. For contact dermatitis metroNIDAZOLE (FLAGYL) 500 mg tablet Take 1 tablet by mouth three times daily. May extend course as directed or take for recurrent infection as directed glimepiride (AMARYL) 4 mg tablet Take 1 tablet by mouth daily with breakfast. Patient may take an extra half pill once a day for blood sugars over 200. melatonin 10 mg tab Take 1 tablet by mouth at bedtime as needed for for insomnia. diclofenac (VOLTAREN ARTHRITIS PAIN) 1 % topical gel Apply 2 g to affected area four times daily. omeprazole (PRILOSEC) 20 mg capsule Take 1 capsule by mouth daily before breakfast. 1/2 hr before meal. magnesium oxide (MAG-OX) 400 mg (241.3 mg magnesium) tablet Take 1 tablet by mouth once daily. fluticasone (FLONASE) 50 mcg/actuation nasal spray Use 2 Sprays in each nostril once daily. Rinse mouth after use. hydrocortisone 2.5 % cream Apply 1 application to affected area twice daily as needed. Location: neck (reaction to tape adhesive) May also use for poison tania. Use up to 14 days per episode of rash. vfuhfvvqhwVRFRX-wddliu-ljcmcegsi (BMX 1:1:1) 1:1:1 liqd Mix in equal amounts - 1 T every 2hrs as needed for mouth pain, Swish/swallow or expectorate. (8oz) (Patient not taking: Reported on 06/07/2022) pravastatin (PRAVACHOL) 40 mg tablet Take 1 tablet by mouth once daily. insulin glargine (LANTUS SOLOSTAR U-100 INSULIN) 100 unit/mL (3 mL) Inject 18 Units subcutaneously daily at bedtime AND 2 Units daily at bedtime. Adjust as directed (2 units to prime pen needle. alcohol swabs (SURE-PREP ALCHOLOL PREP PADS) Test blood sugars 4 x's daily. Dx: E11.65 Insulin: Yes ipratropium-albuterol (DUONEB) 0.5 mg-3 mg(2.5 mg base)/3 mL nebu Inhale 3 mL as instructed four times daily as needed (wheezing). Use over 5-15minutes per nebulizer. insulin needles, DISPOSABLE, (PEN NEEDLE) 31 gauge x 5/16 Use one needle per dose (Lantus and Humalog). 5 per day. Lancets lancets Test blood sugar(s) 1 times daily and as needed. Dx: Type 2 DM - Uncontrolled E11.65 Insulin: Yes Nebulizer and Compressor For Neb 1 Each as needed (Use as directed for treatment of asthma). Nebulizer Accessories [facility] [place] new nebulizer mask, hose and supplies. (J45.20) Intermittent asthma without complication prednisoLONE acetate (PRED FORTE) 1 % ophthalmic suspension Use 1 Drop in the right eye four times daily. (Patient not taking: Reported on 06/07/2022) blood sugar diagnostic (TRUE METRIX GLUCOSE TEST STRIP) test strip Check blood sugar 4 times daily. DX: E11.65. Insulin : yes vancomycin 25 mg/mL ophthalmic drops ([facility]) Use 1 Drop in the right eye every 2 hours. (Patient not taking: Reported on 05/31/2022) cefTAZidime ophthalmic solution 2.5% (25 mg/mL) (IP-CPD) Use 1 Drop in the right eye every 4 hours while awake. (Patient not taking: Reported on 04/30/2022) albuterol HFA (PROVENTIL HFA, VENTOLIN HFA) 90 mcg/actuation inhaler Inhale 2 Puffs as instructed every 4 hours as needed. Blood-Glucose Meter (TRUE METRIX GLUCOSE METER) Testing one time daily and as needed DX E11.65 Insulin YES Lidocaine-Hydrocortisone Ac 3-0.5 % crea by RECTAL route twice daily for 14 days. miconazole (CADENCE ANTIFUNGAL) 2 % cream Apply 1 application to affected area twice daily. To perirectal and buttocks area Blood-Glucose Meter (ONETOUCH VERIO METER) Test blood sugar 4 times daily. Dx: Type 2 DM. Uncontrolled E11.65. Insulin: yes. blood sugar diagnostic (ONETOUCH VERIO TEST STRIPS) test strip Test blood sugar 4 times daily. Dx: Type 2 DM. Uncontrolled E11.65. Insulin: yes Zinc Oxide 40 % oint Apply to affected area as needed. ketoconazole (NIZORAL) 2 % cream Apply 1 application to affected area once daily. as needed Ostomy Supplies (ADHESIVE REMOVER WIPES) swab All Care brand. Use as directed fluPHENAZine (PROLIXIN) 1 mg tablet Take 3 mg by mouth once daily. blood sugar diagnostic (BLOOD GLUCOSE TEST) test strip Test blood sugar(s) 1 times daily and as needed. Dx: Type 2 DM - Uncontrolled Insulin: Yes blood sugar diagnostic (BLOOD GLUCOSE TEST) test strip Test blood sugar(s) 4 times daily and as needed as directed. Dx: Type 2 DM - Uncontrolled Insulin: Yes Nebulizer Accessories [facility] [place] new nebulizer mask, hose and supplies. (J45.20) Intermittent asthma without complication phenazopyridine (PYRIDIUM) 100 mg tablet Take 1 tablet by mouth three times daily as needed. (Patient not taking: Reported on 06/28/2022) Nebulizer New (not refurbished) NEBULIZER FOR HOME USE with Duoneb 4 x a day. DX: J45.909, Z87.09. Lifetime supplies of mask/tubing, patient has tracheostomy. tapentadol (NUCYNTA) 75 mg tab Take 50 mg by mouth three times daily. Taking 1 three times a day per Dr Trevizo. blood sugar diagnostic (FREESTYLE INSULINX) test strip Test blood sugar(s) 4 times daily and as needed. Dx: Type 2 DM - Uncontrolled Insulin: Yes Adhesive Tape ([employer]) 2 X 10 -yard tape Use for dressings for healing tracheostomy site. traZODone (DESYREL) 100 mg tablet Take 3 tablets by mouth daily at bedtime. ([facility]) topiramate (TOPAMAX) 100 mg tablet Take 1 tablet by mouth once daily. Per psychiatrist (Patient taking differently: Take 300 mg by mouth daily at bedtime. Per psychiatrist) VRAYLAR 3 mg cap Take 3 mg by mouth daily at bedtime. white petrolatum-mineral oil (EUCERIN) cream Apply 1 application to affected area as needed for Dry Skin (all dry skin areas). No current facility-administered medications for this visit. ALLERGIES: ALLERGIES Allergen Reactions Goss Other: See Comments Tongue blisters Lemon Other: See Comments Tongue blisters. Pears Unknown Cephalosporins itching Ciprofloxacin Anaphylaxis It was used with flagyl at the same time so uknown which is the cause Codeine rash swelling Diclofenac rash Dilaudid [Hydromorp* Itching Lipitor [Atorvastat* Itching Lyrica [Pregabalin] Swelling Opioids - Morphine * rash Penicillins Anaphylaxis ?anaphylaxis, patient tolerates zosyn Percocet [Oxycodone* Itching Soap Sulfa (Sulfonamide * Rash Vicodin [Hydrocodon* Rash Zithromax [Azithrom* Rash VITALS: BP 118/76 Pulse 90 Temp 36.7 C (98.1 F) Resp 18 Wt 88.9 kg (196 lb) SpO2 95% BMI 31.64 kg/m PHYSICAL EXAM: GEN: mildly ill appearing. Accompanied by her HEENT: PERRL, EOMI, conjunctiva clear Ears: canals clear. TMs without erythema, bulge, or effusion Sinuses: non-tender frontal sinus, non-tender maxillary sinuses Throat: moist mucous membranes, mild erythema, no exudate Neck: supple, no thyromegaly, no lymphadenopathy HEART: regular rate and rhythm, no murmurs LUNGS: transmitted upper airway sounds, no increased WOB ASSESSMENT/PLAN: 1. Sore throat - ICD9: 462, ICD10: J02.9 - suspect viral URI, differential includes COVID-19. - Discussed supportive care treatment with rest, cold medicine, and analgesia. - Red flags to seek further treatment include chest pain, shortness of breath, and lethargy; in the ER if severe. - 2019 CORONAVIRUS Anthony Lizarraga MD documented in this encounter [facility] 09-21-2022 Note HNO ID: [id number] Author: Suzanna Escalante Service: ? Author Type: Physician Type: Progress Notes Filed: 09/21/2022 2:10 PM Note Text: Last saw pcp: 06/28/22 Subjective: Patient presents to clinic c/o painful toenails. They state that the nails are especially painful with shoe gear and pressure. Patient states that nails 1-5 b/l are painful. Patient admits to being diabetic. No other pedal complaints at this time. Patient states no change in medications or medical history since last visit. Objective: Patient presents to clinic ambulating in [place] Vasc: DP and PT pulses are palpable bilateral. CFT is less than 5 seconds bilateral. Skin temperature is warm to cool proximal to distal bilateral. There is mild edema or varicosities noted. Neuro: Protective sensation is intact to the foot and toes when tested with the 5.07 SWM bilateral. Vibratory sensation is decreased at the hallux IPJ bilateral. The hallux is downgoing bilateral. Derm: Nails 1-5 b/l are painful, discolored-yellow, thick, crumbly, dystrophic and with subungal debris. Skin is of normal turgor, texture and hair growth is present bilateral. There are no hyperkeratosis, ulcerations, scars, verruca or other lesions noted. Ortho: Muscle strength is 5/5 for all pedal groups tested. Ankle joint DF is full with the knee extended with no pain or crepitus noted. 1st MPJ ROM is full bilateral. 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 Nails 1-5 bilateral were debrided in length and thickness. Patient was instructed on the continued importance of diabetic foot care along with proper diet and keeping their blood sugar under control to prevent complications. Patient is to RTC in 3-4 months. Suzanna Escalante DPM [facility] 09-21-2022 Note HNO ID: [id number] Author: Destiny Sandoval RN Service: ? Author Type: Registered Nurse Type: Progress Notes Filed: 09/21/2022 2:10 PM Note Text: AMB ROOMING INTAKE FLOWSHEET DATA Pain Pain Location: Foot-Right Description: Numbness, Tingling Duration Amount of Time: 4 Duration Units: Months Frequency: Continuous Intervention/Comfort measure: Relaxation Patient presents with: Left Foot - Established Patient, Follow Up, Diabetic Foot Check Right Foot - Established Patient, Follow Up, Diabetic Foot Check Patient presents for diabetic foot check. Patient states that her right foot has been tingling for the last few months. [facility] 09-21-2022 Instructions Suzanna Escalante - 09/21/2022 1:39 PM EDT Diabetes Foot Care Instructions When you have diabetes, proper foot care is very important. Poor foot care may lead to amputation of a foot or leg. As a person with diabetes, you are more vulnerable to foot problems, because diabetes can damage your nerves and reduce blood flow to your feet. Here are some diabetes foot care tips to follow: Wash and Dry Your Feet Daily Use mild soaps Use warm water Pat your skin dry; do not rub. Thoroughly dry your feet. After washing, use lotion on your feet to prevent cracking. Do not put lotion between your toes. Examine Your Feet Each Day Check the tops and bottoms of your feet. Have someone else look at your feet if you cannot see them. Check for dry, cracked skin. Look for blisters, cuts, scratches, or other sores. Check for redness, increased warmth, or tenderness when touching any area of your feet. Check for ingrown toenails, corns, and calluses. If you get a blister or sore from your shoes, do not pop it. Apply a bandage and wear a different pair of shoes. Take Care of Your Toenails Cut toenails after bathing, when they are soft. Cut toenails straight across and smooth with a nail file. Avoid cutting into the corners of toes. Do not cut cuticles. If you have neuropathy (or decreased sensation in your feet) a sports analyst should always cut your toenails. Be Careful When Exercising Walk and exercise in comfortable shoes. Do not exercise when you have open sores on your feet. Protect Your Feet With Shoes and Socks Never go barefoot. Always protect your feet by wearing shoes or hard-soled slippers or footwear. Avoid shoes with high heels and pointed toes. Avoid shoes that expose your toes or heels (such as open-toed shoes or sandals). These types of shoes increase your risk for injury and potential infections. Try on new footwear with the type of socks you usually wear. Do not wear new shoes for more than an hour at a time. Change your socks daily. Look and feel inside your shoes before putting them on to make sure there are no foreign objects or rough areas. Avoid tight socks. Wear natural-fiber socks (cotton, wool, or a cotton-wool blend). Wear special shoes if your health care provider recommends them. Wear shoes/boots that will protect your feet from various weather conditions (cold, moisture, etc.). Make sure your shoes fit properly. If you have neuropathy (nerve damage), you may not notice that your shoes are too tight. Perform the footwear test described below. Footwear Test Use this simple test to see if your shoes fit correctly: Stand on a piece of paper. (Make sure you are standing and not sitting, because your foot changes shape when you stand.) Trace the outline of your foot. Trace the outline of your shoe. Compare the tracings: Is the shoe too narrow? Is your foot crammed into the shoe? The shoe should be at least 1/2 inch longer than your longest toe and as wide as your foot. Proper Shoe Choices The following types of shoes are best for people with diabetes Closed toes and heels Leather uppers without a seam inside At least 1/2 inch extra space at the end of your longest toe Inside of shoe should be soft with no rough areas Outer sole should be made of stiff material Shoes should be at least as wide as your feet Tips for Foot Care in Diabetes Don't wait to treat a minor foot problem if you have diabetes. Follow your health care provider's guidelines and first aid guidelines. Report foot injuries and infections to your health care provider immediately. Check water temperature with your elbow, not your foot. Do not use a heating pad on your feet. Do not cross your legs. Do not self-treat your corns, calluses, or other foot problems. Go to your health care provider or sports analyst to treat these conditions. documented in this encounter [facility] 09-21-2022 History of Presen t illness Narrative Last saw pcp: 06/28/22 Subjective: Patient presents to clinic c/o painful toenails. They state that the nails are especially painful with shoe gear and pressure. Patient states that nails 1-5 b/l are painful. Patient admits to being diabetic. No other pedal complaints at this time. Patient states no change in medications or medical history since last visit. Objective: Patient presents to clinic ambulating in [place] Vasc: DP and PT pulses are palpable bilateral. CFT is less than 5 seconds bilateral. Skin temperature is warm to cool proximal to distal bilateral. There is mild edema or varicosities noted. Neuro: Protective sensation is intact to the foot and toes when tested with the 5.07 SWM bilateral. Vibratory sensation is decreased at the hallux IPJ bilateral. The hallux is downgoing bilateral. Derm: Nails 1-5 b/l are painful, discolored-yellow, thick, crumbly, dystrophic and with subungal debris. Skin is of normal turgor, texture and hair growth is present bilateral. There are no hyperkeratosis, ulcerations, scars, verruca or other lesions noted. Ortho: Muscle strength is 5/5 for all pedal groups tested. Ankle joint DF is full with the knee extended with no pain or crepitus noted. 1st MPJ ROM is full bilateral. 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 Nails 1-5 bilateral were debrided in length and thickness. Patient was instructed on the continued importance of diabetic foot care along with proper diet and keeping their blood sugar under control to prevent complications. Patient is to RTC in 3-4 months. Suzanna Escalante DPM AMB ROOMING INTAKE FLOWSHEET DATA Pain Pain Location: Foot-Right Description: Numbness, Tingling Duration Amount of Time: 4 Duration Units: Months Frequency: Continuous Intervention/Comfort measure: Relaxation Patient presents with: Left Foot - Established Patient, Follow Up, Diabetic Foot Check Right Foot - Established Patient, Follow Up, Diabetic Foot Check Patient presents for diabetic foot check. Patient states that her right foot has been tingling for the last few months. documented in this encounter [facility] 08-24-2022 Miscellaneous Notes Spoke with pt and she was at an apt and said to go ahead and book apts and send reminders to her in the mail. If apts do not work she will call in to change them. Mailed. Susan Freitas LPN Needs follow up scheduled--was to get 3 month follow ups scheduled after June appointment with me but nothingin schedule yet. Did see Shawn 06/23. See if she is okay with alternating appointments with Shawn and me. The following approved medication requests have been transmitted electronically. Requested Prescriptions Signed Prescriptions Disp Refills triamcinolone acetonide (KENALOG) 0.1 % cream 30 g 1 Sig: Apply 1 application to affected area three times daily. Apply sparingly to area for rash/itching till rash resolves. For contact dermatitis Authorizing Provider: TIFF PEARSON metroNIDAZOLE (FLAGYL) 500 mg tablet 42 tablet 1 Sig: Take 1 tablet by mouth three times daily. May extend course as directed or take for recurrent infection as directed Authorizing Provider: TIFF PEARSON MD Patient phones requesting refills as follows: Requested Prescriptions Pending Prescriptions Disp Refills triamcinolone acetonide (KENALOG) 0.1 % cream 30 g 1 Sig: Apply 1 application to affected area three times daily. Apply sparingly to area for rash/itching till rash resolves. For contact dermatitis metroNIDAZOLE (FLAGYL) 500 mg tablet 42 tablet 1 Sig: Take 1 tablet by mouth three times daily. May extend course as directed or take for recurrent infection as directed Pt states she uses the kenalog cream for under her breasts, pt sure tis is correct med for breasts. DEISY: 06/28/22 NOV: None scheduled Last Refill: metronidazole 05/27/22 #42 1 refill Kenalog 10/16/20 30g 1 refill Apple Love LPN documented in this encounter [facility] 08-10-2022 Note Patient Outreach (IN [facility]) CHRISTOPHER HOBSON ([id number]) 1960 F CHT Date Time Provider Department 08/10/22 TIFF PEARSON During your visit today, we recorded the following information about you: Allergies As of Date: 08/10/2022 Noted Allergy Reaction GOSS 08/01/2021 14 - Other: See Comments Comments: Tongue blisters LEMON 08/01/2021 14 - Other: See Comments Comments: Tongue blisters. PEARS 08/01/2021 16 - Unknown CEPHALOSPORINS 04/03/2003 Comments: itching CIPROFLOXACIN 09/11/2016 10 - Anaphylaxis Comments: It was used with flagyl at the same time so uknown which is the cause CODEINE 04/03/2003 Comments: rash swelling DICLOFENAC 08/28/2003 Comments: rash DILAUDID (HYDROMORPHONE (BULK)) 06/10/2015 9 - Itching LIPITOR (ATORVASTATIN CALCIUM) 05/07/2018 9 - Itching LYRICA (PREGABALIN) 07/04/2017 7 - Swelling OPIOIDS - MORPHINE ANALOGUES 08/28/2003 Comments: rash PENICILLINS 04/03/2003 10 - Anaphylaxis Comments: ?anaphylaxis, patient tolerates zosyn PERCOCET (OXYCODONE-ACETAMINOPHEN) 005 9 - Itching SOAP 05/30/2006 SULFA (SULFONAMIDE ANTIBIOTICS) 12/04/2018 2 - Rash VICODIN (HYDROCODONE-ACETAMINOPHE*2009 2 - Rash ZITHROMAX (AZITHROMYCIN) 03/24/2016 2 - Rash Date Reviewed: 06/28/2022 Reviewed by: Gwendolyn Lawrence LPN - Fully Assessed Visit Diagnosis:Encounter for screening mammogram for breast cancer [Z12.31] Order(s):URIEL SCREENING [[id number]] Order #: [id number] FUTURE Prescriptions as of 08/15/2022 - glimepiride (AMARYL) 4 mg tablet Take 1 tablet by mouth daily with breakfast. Patient may take an extra half pill once a day for blood sugars over 200. - melatonin 10 mg tab Take 1 tablet by mouth at bedtime as needed for for insomnia. - diclofenac (VOLTAREN ARTHRITIS PAIN) 1 % topical gel Apply 2 g to affected area four times daily. - omeprazole (PRILOSEC) 20 mg capsule Take 1 capsule by mouth daily before breakfast. 1/2 hr before meal. - magnesium oxide (MAG-OX) 400 mg (241.3 mg magnesium) tablet Take 1 tablet by mouth once daily. - metroNIDAZOLE (FLAGYL) 500 mg tablet Take 1 tablet by mouth three times daily. May extend course as directed or take for recurrent infection as directed - fluticasone (FLONASE) 50 mcg/actuation nasal spray Use 2 Sprays in each nostril once daily. Rinse mouth after use. - hydrocortisone 2.5 % cream Apply 1 application to affected area twice daily as needed. Location: neck (reaction to tape adhesive) May also use for poison tania. Use up to 14 days per episode of rash. - guaiFENesin (MUCINEX) 600 mg 12 hr tablet Take 2 tablets by mouth twice daily. - gghwztjnbcGHXCO-osrlch-vtjjiuuak (BMX 1:1:1) 1:1:1 liqd Mix in equal amounts - 1 T every 2hrs as needed for mouth pain, Swish/swallow or expectorate. (8oz) - pravastatin (PRAVACHOL) 40 mg tablet Take 1 tablet by mouth once daily. - insulin glargine (LANTUS SOLOSTAR U-100 INSULIN) 100 unit/mL (3 mL) Inject 18 Units subcutaneously daily at bedtime AND 2 Units daily at bedtime. Adjust as directed (2 units to prime pen needle. - alcohol swabs (SURE-PREP ALCHOLOL PREP PADS) Test blood sugars 4 x's daily. Dx: E11.65 Insulin: Yes - ipratropium-albuterol (DUONEB) 0.5 mg-3 mg(2.5 mg base)/3 mL nebu Inhale 3 mL as instructed four times daily as needed (wheezing). Use over 5-15minutes per nebulizer. - insulin needles, DISPOSABLE, (PEN NEEDLE) 31 gauge x 5/16 Use one needle per dose (Lantus and Humalog). 5 per day. - Lancets lancets Test blood sugar(s) 1 times daily and as needed. Dx: Type 2 DM - Uncontrolled E11.65 Insulin: Yes - Nebulizer and Compressor For Neb 1 Each as needed (Use as directed for treatment of asthma). - Nebulizer Accessories [facility] Needs new nebulizer mask, hose and supplies. (J45.20) Intermittent asthma without complication - prednisoLONE acetate (PRED FORTE) 1 % ophthalmic suspension Use 1 Drop in the right eye four times daily. - blood sugar diagnostic (TRUE METRIX GLUCOSE TEST STRIP) test strip Check blood sugar 4 times daily. DX: E11.65. Insulin : yes - vancomycin 25 mg/mL ophthalmic drops ([facility]) Use 1 Drop in the right eye every 2 hours. - cefTAZidime ophthalmic solution 2.5% (25 mg/mL) (IP-CPD) Use 1 Drop in the right eye every 4 hours while awake. - albuterol HFA (PROVENTIL HFA, VENTOLIN HFA) 90 mcg/actuation inhaler Inhale 2 Puffs as instructed every 4 hours as needed. - Blood-Glucose Meter (TRUE METRIX GLUCOSE METER) Testing one time daily and as needed DX E11.65 Insulin YES - Lidocaine-Hydrocortisone Ac 3-0.5 % crea by RECTAL route twice daily for 14 days. - miconazole (CADENCE ANTIFUNGAL) 2 % cream Apply 1 application to affected area twice daily. To perirectal and buttocks area - triamcinolone acetonide (KENALOG) 0.1 % cream Apply 1 application to affected area three times daily. Apply sparingly to area for rash/itching till r (more content not included)... [facility] 07-20-2022 Miscellaneous Notes 10 mg script sent [facility] pharmacy called to refill melatonin rx for patient. Patient told he her she is taking 10 mg tablets. Rx in Epic says 3 mg. documented in this encounter [facility] 07-06-2022 Miscellaneous Notes Patient reports the office tried to schedule her pain management referral with [facility], reports she was advised to see Dr. Javier in [place]. Gave patient phone number to Dr. Javier, and faxed referral to that office. documented in this encounter [facility] 07-06-2022 Miscellaneous Notes We do not have a Dr Zepeda with our practice [facility] [address] [address] P: [phone] F: [phone] ----- Message from Berta Boone sent at 07/05/2022 4:50 PM EDT ----- Regarding: Medicine l OPEN l New Patient Appointment/Question Subject Line Format: Medicine / [Provider Name] / [Issue] Patient has been identified by name and Date of (Y/N): y Patient: Christopher Hobson Date of : 1960 Provider for this encounter: Tiff Pearson MD Reason for the call/escalation: Patient wanted to get scheduled with pain management but they were interested in scheduling with a Dr. Quintero. They heard he will be a new doctor at the [place] location and wanted to know more information, or to be directed in the right direction to get scheduled Was Patient Referred to [facility]/Seek Emergency Treatment (Y/N): n Did Patient Agree (Y/N): n/a Was An Attempt Made To Transfer The Patient To The Office (Y/N): n Were You Able To Reach Someone At The Office (Y/N): n/a If Yes - Patient Was Transferred To (Caregivers Name): n/a If No - Which [facility] Leadership Test Inspection Engineer Did You Speak With Regarding This Patient: n/a Was an appointment scheduled (Y/N): n Reason patient was requesting visit (RFV/signs and symptoms/diagnosis) : pain management Person calling if other than patient: self Return call to if other than patient: self Best contact number: [phone] Thank you, Berta Boone July 05, 2022 4:50 PM documented in this encounter [facility] 06-29-2022 Miscellaneous Notes Patient's answered call and notified of results. Questions if x-ray was normal why having so much pain. states You guys are the doctors you should be figuring this out. Explain to and while on the phone that it maybe a muscle related issue/pulled muscle and that will not show up on an x-ray. states patient is in no much pain and no one is helping her with the pain and reminded that patient is seeing pain management and did state she seen Dr. Trevizo today and he cut her medicine back but was unable to tell nurse which medication he was talking about. and did agree that the prednisone that Shawn prescribed 06/28/22 is helping with the pain. Did encourage patient to continue with the prednisone and to update office if pain returns after treatment. Please let Christopher know xray of right hip is normal. documented in this encounter [facility] 06-29-2022 Miscellaneous Notes Referral and records faxed as requested. Okay, I placed a referral with her visit from today. No referral to pain management in last year. Gwendolyn, is there a prior referral we can send? Pat from Dr. Quintero's office call regarding message. She can be reached at [phone]. She stated they do treat with oral medications if pt would like to. She was not sure about the specific medication mentioned. Her office indicated it would be best to send the referral and demographics to them along with records from current pain management doctor so the providers there could look at her chart. Fax is [phone] Patient is wanting to switch pain management providers and message left with Dr Quintero's office asking if he treats chronic pain with oral medications such as Nucynta as patient does not want injections. Dr. Clark's office to return call with reply. If not need to check with Dr. Govea's office. documented in this encounter [facility] 06-28-2022 Note HNO ID: [id number] Author: Shawn Veronica APRN.DAVIDE Service: ? Author Type: Nurse Practitioner Type: Progress Notes Filed: 06/28/2022 4:00 PM Note Text: SUBJECTIVE Christopher Hobson is a 61 year old female here today for a check up on her medical problems. Chief Complaint Patient presents with: Recheck: urgent care on 06/23/22 and had x-ray complete today HPI Christopher Hobson is a 61 year old female who presents today for [facility] follow up. She was seen in [facility] on 06/23 with multiple complaints. Had concerns of urinary symptoms, ankle pain, rash and has had additional issues with right groin pain. Previously treated by Tiff Pearson MD with a toradol injection and ordered an xray. Xray done today prior to visit. No results to review at this time. Was seeing Dr. Trevizo but not happy. Wants to transfer to Dr. Quintero. Urine culture was negative for bacterial growth, urine symptoms resolved. Rash on back improving but cream almost out. Issues with back pain, Dr. Trevizo has been adjusting her nucynta. Tried medical marijuana and not helping. Just got her high, too expensive. Back pain not controlled. Wants to see another provider for pain. Her medications were reviewed today and her list is now up to date. Medications Current Outpatient Medications Medication Sig diclofenac (VOLTAREN ARTHRITIS PAIN) 1 % topical gel Apply 2 g to affected area four times daily. omeprazole (PRILOSEC) 20 mg capsule Take 1 capsule by mouth daily before breakfast. 1/2 hr before meal. magnesium oxide (MAG-OX) 400 mg (241.3 mg magnesium) tablet Take 1 tablet by mouth once daily. metroNIDAZOLE (FLAGYL) 500 mg tablet Take 1 tablet by mouth three times daily. May extend course as directed or take for recurrent infection as directed fluticasone (FLONASE) 50 mcg/actuation nasal spray Use 2 Sprays in each nostril once daily. Rinse mouth after use. hydrocortisone 2.5 % cream Apply 1 application to affected area twice daily as needed. Location: neck (reaction to tape adhesive) May also use for poison tania. Use up to 14 days per episode of rash. guaiFENesin (MUCINEX) 600 mg 12 hr tablet Take 2 tablets by mouth twice daily. pravastatin (PRAVACHOL) 40 mg tablet Take 1 tablet by mouth once daily. insulin glargine (LANTUS SOLOSTAR U-100 INSULIN) 100 unit/mL (3 mL) Inject 18 Units subcutaneously daily at bedtime AND 2 Units daily at bedtime. Adjust as directed (2 units to prime pen needle. ipratropium-albuterol (DUONEB) 0.5 mg-3 mg(2.5 mg base)/3 mL nebu Inhale 3 mL as instructed four times daily as needed (wheezing). Use over 5-15minutes per nebulizer. glimepiride (AMARYL) 4 mg tablet Take 1 tablet by mouth daily with breakfast. Patient may take an extra half pill once a day for blood sugars over 200. Lidocaine-Hydrocortisone Ac 3-0.5 % crea by RECTAL route twice daily for 14 days. miconazole (CADENCE ANTIFUNGAL) 2 % cream Apply 1 application to affected area twice daily. To perirectal and buttocks area triamcinolone acetonide (KENALOG) 0.1 % cream Apply 1 application to affected area three times daily. Apply sparingly to area for rash/itching till rash resolves. For contact dermatitis Zinc Oxide 40 % oint Apply to affected area as needed. ketoconazole (NIZORAL) 2 % cream Apply 1 application to affected area once daily. as needed fluPHENAZine (PROLIXIN) 1 mg tablet Take 3 mg by mouth once daily. tapentadol (NUCYNTA) 75 mg tab Take 50 mg by mouth three times daily. Taking 1 three times a day per Dr Trevizo. traZODone (DESYREL) 100 mg tablet Take 3 tablets by mouth daily at bedtime. ([facility]) topiramate (TOPAMAX) 100 mg tablet Take 1 tablet by mouth once daily. Per psychiatrist (Patient taking differently: Take 300 mg by mouth daily at bedtime. Per psychiatrist) melatonin 3 mg Take 2 tablets by mouth daily at bedtime. (Patient taking differently: Take 10 mg by mouth daily at bedtime.) VRAYLAR 3 mg cap Take 3 mg by mouth daily at bedtime. white petrolatum-mineral oil (EUCERIN) cream Apply 1 application to affected area as needed for Dry Skin (all dry skin areas). mupirocin (BACTROBAN) 2 % ointment Apply to affected area three times daily for 10 days. methylPREDNISolone (MEDROL, HARRIS,) 4 mg Dose-Pack Follow dosing instructions, take with food. nwanueqyjrTWGOR-mvsvca-fjdizvjef (BMX 1:1:1) 1:1:1 liqd Mix in equal amounts - 1 T every 2hrs as needed for mouth pain, Swish/swallow or expectorate. (8oz) (Patient not taking: Reported on 06/07/2022) alcohol swabs (SURE-PREP ALCHOLOL PREP PADS) Test blood sugars 4 x's daily. Dx: E11.65 Insulin: Yes insulin needles, DISPOSABLE, (PEN NEEDLE) 31 gauge x 07/19 Use one needle per dose (Lantus and Humalog). 5 per day. Lancets lancets Test blood sugar(s) 1 times daily and as needed. Dx: Type 2 DM - Uncontrolled E11.65 Insulin: Yes Nebulizer and Compressor For Neb 1 Each as needed (Use as directed for treatment of asthma). Nebulizer Accessori (more content not included)... [facility] 06-28-2022 Note HNO ID: [id number] Author: RT Nickie(R) Service: Radiology Author Type: Technologist Type: Progress Notes Filed: 06/28/2022 1:45 PM Note Text: Radiology Service Progress Note PATIENT NAME: Christopher Hobson DATE OF SERVICE: June 28, 2022 TIME: 1:33 PM PATIENT IDENTITY VERIFICATION COMPLETED USING TWO (2) IDENTIFIERS: Name and Date of confirmed by patient verbally. FALL SCREENING: Has the patient had 2 falls in the last year or 1 fall with injury or currently using an Ambulatory Assistive Device (Walker, Cane, Wheelchair, Crutches, etc.)? No PATIENT GENDER DATA: Female. status: : No status: NO. PATIENT RELEVANT IMPLANT DATA REVIEWED: Yes RADIOLOGY DEPARTMENT: General X-ray: Exam(s) Completed: Pelvis X-Ray: Pelvis with Hip Right PERIPHERAL IV DATA: Not applicable SIGNED BY: RT Nickie(R) June 28, 2022 1:33 PM [facility] 06-25-2022 Miscellaneous Notes Pt was notified of the results. Pt verbalized understanding. Velia Ritter MA Please let patient know that her urine culture came back revealing contamination. If she is still having symptoms, follow-up with PCP documented in this encounter [facility] 06-23-2022 Note HNO ID: [id number] Author: Steve Kenny APRN.MEDICAL RECORDS CUSTODIAN Service: ? Author Type: Nurse Practitioner Type: Progress Notes Filed: 06/23/2022 5:09 PM Note Text: Subjective HPI HPI Christopher Hobson is a 61 year old female who presents today for CC of multiple complaints, burning with urination for 2 weeks, ankle pain, rash, back pain, hunger after eating, breathing issues, feeling sick. states saw vaginal/groin rash, patient denies. .Patient presents with: Urinary Problem: Pt reported burning with urination x2 wks, Kay, nausea. 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 Secondary to E.coli bactremia -- continue norepinephrine and vasopressin to maintain MAP 65 Lunate fracture, closed 11/22/2012 MALIGNANT NEOPLASM COLON NOS(aka COLON) 10/09/2003 Ostomy in LLQ since surgical intervention in 2004 per pt Reviewed eval with Dr. 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 Diabetes on metformin Pain in limb 02/05/2010 Paranoid schizophrenia, chronic condition ([facility]) 1985 Peptic ulcer, unspecified site, unspecified as acute or chronic, without mention of hemorrhage, perforation, or obstruction 10/11/2004 Personal history of colonic polyps 2000 Physical deconditioning 03/14/2015 Due to prolonged ICU stay -- PT/OT consulted -- lift OOB today with lift team Post-op pain 02/25/2015 Fentanyl PRN Postoperative anemia due to acute blood loss 02/25/2015 Hgb 8.8 today, no active bleeding Last transfused 03/14 -- follow daily CBC and coags S/P colostomy ([facility]) SBO (small bowel obstruction) ([facility]) 09/11/2016 Skin lesion 03/09/2015 Skin sloughing on LEs with blisters, indeterminate purple lesions on back -> now improving Per Dermatology consult: linear erosions are most likely irritant contact dermatitis or pressure induced erosions. In addition there are small edema bullae on the abdominal wall Both require gentle wound care and emollients such as aquaphor or petroleum jelly -- monitor Tracheostomy in place ([facility]) Placed 2015 after prolonged respiratory failure, unable to liberate from vent. Unspecified migraine 1998 Ventral hernia with bowel obstruction 09/10/2016 Added automatically from request for surgery [id number] VRE bacteremia 09/29/2016 PAST SURGICAL HISTORY Procedure Laterality Date ANESTH,VAGINAL DELIVERY 1977,1979,1985, 1986 w/ episiotomies APPENDECTOMY DILATION AND CURETTAGE DXAND/THER NONOBSTETRIC 1977 Dilation AND curettage INDUCED DILATION AND CURETTAGE LIG/TRNSXJ FLP TUBE ABDL/VAG APPR UNI/BI Tubal ligation NEUROPLASTY AND/TRANSPOS MEDIAN NRV CARPAL TUNNE 2006 Carpal tunnel decomp right NEUROPLASTY AND/TRANSPOS MEDIAN NRV CARPAL TUNNE Carpal tunnel decomp left PAST SURGICAL HISTORY OF 2004 Abdominal surgeries for hernia repairs PAST SURGICAL HISTORY OF 2008 Ileostomy PAST SURGICAL HISTORY OF 09/12/2016 Underwent ex lap, takedown of prior ostomy, RONEY and creation of new end ileostomy on 09/12/16 for parastomal hernia with closed loop hernia PAST SURGICAL HISTORY OF 09/28/2016 Permanent Pacemaker Placement for complete heart block REDUCE BOWEL OBSTRUCTION Late February 2015 acute bowel obstruction. SB resection. REVJ COLOSTOMY COMP RCNSTJ IN-DEPTH SPX 2000 3-4 surgeries TONSILLECTOMY PRIMARY/SECONDARY AGE 10/> (more content not included)... [facility] 06-23-2022 History of Presen t illness Narrative Images from the original note were not included. Subjective HPI HPI Christopher Hobson is a 61 year old female who presents today for CC of multiple complaints, burning with urination for 2 weeks, ankle pain, rash, back pain, hunger after eating, breathing issues, feeling sick. states saw vaginal/groin rash, patient denies. .Patient presents with: Urinary Problem: Pt reported burning with urination x2 wks, Kay, nausea. 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 Secondary to E.coli bactremia -- continue norepinephrine and vasopressin to maintain MAP 65 Lunate fracture, closed 11/22/2012 MALIGNANT NEOPLASM COLON NOS(aka COLON) 10/09/2003 Ostomy in LLQ since surgical intervention in 2004 per pt Reviewed eval with Dr. 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 Diabetes on metformin Pain in limb 02/05/2010 Paranoid schizophrenia, chronic condition ([facility]) 1985 Peptic ulcer, unspecified site, unspecified as acute or chronic, without mention of hemorrhage, perforation, or obstruction 10/11/2004 Personal history of colonic polyps 2000 Physical deconditioning 03/14/2015 Due to prolonged ICU stay -- PT/OT consulted -- lift OOB today with lift team Post-op pain 02/25/2015 Fentanyl PRN Postoperative anemia due to acute blood loss 02/25/2015 Hgb 8.8 today, no active bleeding Last transfused 03/14 -- follow daily CBC and coags S/P colostomy ([facility]) SBO (small bowel obstruction) ([facility]) 09/11/2016 Skin lesion 03/09/2015 Skin sloughing on LEs with blisters, indeterminate purple lesions on back -> now improving Per Dermatology consult: linear erosions are most likely irritant contact dermatitis or pressure induced erosions. In addition there are small edema bullae on the abdominal wall Both require gentle wound care and emollients such as aquaphor or petroleum jelly -- monitor Tracheostomy in place ([facility]) Placed 2015 after prolonged respiratory failure, unable to liberate from vent. Unspecified migraine 1998 Ventral hernia with bowel obstruction 09/10/2016 Added automatically from request for surgery [id number] VRE bacteremia 09/29/2016 PAST SURGICAL HISTORY Procedure Laterality Date ANESTH,VAGINAL DELIVERY 1977,1979,1985, 1986 w/ episiotomies APPENDECTOMY DILATION & CURETTAGE DX&/THER NONOBSTETRIC 1977 Dilation & curettage INDUCED DILATION AND CURETTAGE LIG/TRNSXJ FLP TUBE ABDL/VAG APPR UNI/BI Tubal ligation NEUROPLASTY &/TRANSPOS MEDIAN NRV CARPAL TUNNE 2006 Carpal tunnel decomp right NEUROPLASTY &/TRANSPOS MEDIAN NRV CARPAL TUNNE Carpal tunnel decomp left PAST SURGICAL HISTORY OF 2004 Abdominal surgeries for hernia repairs PAST SURGICAL HISTORY OF 2009 Ileostomy PAST SURGICAL HISTORY OF 09/12/2016 Underwent ex lap, takedown of prior ostomy, RONEY and creation of new end ileostomy on 09/12/16 for parastomal hernia with closed loop hernia PAST SURGICAL HISTORY OF 09/28/2016 Permanent Pacemaker Placement for complete heart block REDUCE BOWEL OBSTRUCTION Late February 2015 acute bowel obstruction. SB resection. REVJ COLOSTOMY COMP RCNSTJ IN-DEPTH SPX 2000 3-4 surgeries TONSILLECTOMY PRIMARY/SECONDARY AGE 10/> TRACHEOSTOMY HX 03/12/2015 protracted critical stay, failure to wean after bowel obtruction ALLERGIES Goss, Lemon, Pears, Cephalosporins, Ciprofloxacin, Codeine, Diclofenac, Dilaudid [Hydromorphone (Bulk)], Lipitor [Atorvastatin Calcium], Lyrica [Pregabalin], Opioids - Morphine Analogues, Penicillins, Percocet [Oxycodone-Acetaminophen], Soap, Sulfa (Sulfonamide Antibiotics), Vicodin [Hydrocodone-Acetaminophen], and Zithromax [Azithromycin] MEDICATIONS omeprazole (PRILOSEC) 20 mg capsule Take 1 capsule by mouth daily before breakfast. 1/2 hr before meal. fluticasone (FLONASE) 50 mcg/actuation nasal spray Use 2 Sprays in each nostril once daily. Rinse mouth after use. hydrocortisone 2.5 % cream Apply 1 application to affected area twice daily as needed. Location: neck (reaction to tape adhesive) May also use for poison tania. Use up to 14 days per episode of rash. guaiFENesin (MUCINEX) 600 mg 12 hr tablet Take 2 tablets by mouth twice daily. pravastatin (PRAVACHOL) 40 mg tablet Take 1 tablet by mouth once daily. insulin glargine (LANTUS SOLOSTAR U-100 INSULIN) 100 unit/mL (3 mL) Inject 18 Units subcutaneously daily at bedtime AND 2 Units daily at bedtime. Adjust as directed (2 units to prime pen needle. alcohol swabs (SURE-PREP ALCHOLOL PREP PADS) Test blood sugars 4 x's daily. Dx: E11.65 Insulin: Yes ipratropium-albuterol (DUONEB) 0.5 mg-3 mg(2.5 mg base)/3 mL nebu Inhale 3 mL as instructed four times daily as needed (wheezing). Use over 5-15minutes per nebulizer. insulin needles, DISPOSABLE, (PEN NEEDLE) 31 gauge x 5/16 Use one needle per dose (Lantus and Humalog). 5 per day. Lancets lancets Test blood sugar(s) 1 times daily and as needed. Dx: Type 2 DM - Uncontrolled Insulin: Yes Nebulizer and Compressor For Neb 1 Each as needed (Use as directed for treatment of asthma). Nebulizer Accessories misc Needs new nebulizer mask, hose and supplies. (J45.20) Intermittent asthma without complication blood sugar diagnostic (TRUE METRIX GLUCOSE TEST STRIP) test strip Check blood sugar 4 times daily. DX: E11.. Insulin : yes albuterol HFA (PROVENTIL HFA, VENTOLIN HFA) 90 mcg/actuation inhaler Inhale 2 Puffs as instructed every 4 hours as needed. Blood-Glucose Meter (TRUE METRIX GLUCOSE METER) Testing one time daily and as needed DX E11. Insulin YES glimepiride (AMARYL) 4 mg tablet Take 1 tablet by mouth daily with breakfast. Patient may take an extra half pill once a day for blood sugars over 200. triamcinolone acetonide (KENALOG) 0.1 % cream Apply 1 application to affected area three times daily. Apply sparingly to area for rash/itching till rash resolves. For contact dermatitis Blood-Glucose Meter (ONETOUCH VERIO METER) Test blood sugar 4 times daily. Dx: Type 2 DM. Uncontrolled . Insulin: yes. blood sugar diagnostic (ONETOUCH VERIO TEST STRIPS) test strip Test blood sugar 4 times daily. Dx: Type 2 DM. Uncontrolled . Insulin: yes Zinc Oxide 40 % oint Apply to affected area as needed. ketoconazole (NIZORAL) 2 % cream Apply 1 application to affected area once daily. as needed Ostomy Supplies (ADHESIVE REMOVER WIPES) swab All Care brand. Use as directed blood sugar diagnostic (BLOOD GLUCOSE TEST) test strip Test blood sugar(s) 1 times daily and as needed. Dx: Type 2 DM - Uncontrolled Insulin: Yes blood sugar diagnostic (BLOOD GLUCOSE TEST) test strip Test blood sugar(s) 4 times daily and as needed as directed. Dx: Type 2 DM - Uncontrolled Insulin: Yes Nebulizer Accessories misc Needs new nebulizer mask, hose and supplies. (J45.20) Intermittent asthma without complication phenazopyridine (PYRIDIUM) 100 mg tablet Take 1 tablet by mouth three times daily as needed. Nebulizer New (not refurbished) NEBULIZER FOR HOME USE with Duoneb 4 x a day. DX: J45.909, Z87.09. Lifetime supplies of mask/tubing, patient has tracheostomy. blood sugar diagnostic (FREESTYLE INSULINX) test strip Test blood sugar(s) 4 times daily and as needed. Dx: Type 2 DM - Uncontrolled E11.65 Insulin: Yes Adhesive Tape (DURAPORE SURGICAL) 2 X 10 -yard tape Use for dressings for healing tracheostomy site. traZODone (DESYREL) 100 mg tablet Take 3 tablets by mouth daily at bedtime. ([facility]) VRAYLAR 3 mg cap Take 3 mg by mouth daily at bedtime. white petrolatum-mineral oil (EUCERIN) cream Apply 1 application to affected area as needed for Dry Skin (all dry skin areas). magnesium oxide (MAG-OX) 400 mg (241.3 mg magnesium) tablet Take 1 tablet by mouth once daily. keTORolac (TORADOL) 10 mg tablet Take 1 tablet by mouth every 6 hours as needed. metroNIDAZOLE (FLAGYL) 500 mg tablet Take 1 tablet by mouth three times daily. May extend course as directed or take for recurrent infection as directed benzonatate (TESSALON PERLES) 100 mg capsule Take 2 capsules by mouth three times daily as needed. (Patient not taking: Reported on 06/23/2022) fgkfyiugurWELED-zoqkya-ptwulnykl (BMX 1:1:1) 1:1:1 liqd Mix in equal amounts - 1 T every 2hrs as needed for mouth pain, Swish/swallow or expectorate. (8oz) (Patient not taking: Reported on 06/07/2022) benzonatate (TESSALON PERLES) 100 mg capsule Take 1-2 capsules by mouth three times daily as needed. (Patient not taking: No sig reported) prednisoLONE acetate (PRED FORTE) 1 % ophthalmic suspension Use 1 Drop in the right eye four times daily. (Patient not taking: Reported on 06/07/2022) vancomycin 25 mg/mL ophthalmic drops ([facility]) Use 1 Drop in the right eye every 2 hours. (Patient not taking: No sig reported) cefTAZidime ophthalmic solution 2.5% (25 mg/mL) (IP-CPD) Use 1 Drop in the right eye every 4 hours while awake. (Patient not taking: No sig reported) Lidocaine-Hydrocortisone Ac 3-0.5 % crea by RECTAL route twice daily for 14 days. miconazole (CADENCE ANTIFUNGAL) 2 % cream Apply 1 application to affected area twice daily. To perirectal and buttocks area fluPHENAZine (PROLIXIN) 1 mg tablet Take 3 mg by mouth once daily. tapentadol (NUCYNTA) 75 mg tab Take 50 mg by mouth three times daily. Taking 1 three times a day per Dr Trevizo. topiramate (TOPAMAX) 100 mg tablet Take 1 tablet by mouth once daily. Per psychiatrist (Patient taking differently: Take 300 mg by mouth daily at bedtime. Per psychiatrist) melatonin 3 mg Take 2 tablets by mouth daily at bedtime. (Patient taking differently: Take 10 mg by mouth daily at bedtime.) FAMILY HISTORY Problem Relation Age of Onset other (Pneumonia) Mother Heart Father Thyroid Daughter Thyroid Daughter Asthma No Family History Cancer No Family History No lung cancer. COPD No Family History Social History Tobacco Use Smoking status: Former Packs/day: 2.00 Years: 45.00 Pack years: 90.00 Types: Cigarettes Start date: 1965 Quit date: 08/27/2010 Years since quittin.8 Smokeless tobacco: Current Tobacco comments: Medical Vaping Use Vaping Use: Never used Substance Use Topics Alcohol use: No Drug use: Not Currently Types: Marijuana Comment: Cocaine abuse, quit before 1999. Medical Marijuana Review of Systems Constitutional: Positive for malaise/fatigue. Negative for chills, fever and weight loss. Respiratory: Negative for cough, shortness of breath and wheezing. Cardiovascular: Negative for chest pain and palpitations. Gastrointestinal: Negative for abdominal pain, blood in stool, constipation, diarrhea, heartburn, melena, nausea and vomiting. Genitourinary: Positive for dysuria and frequency. Negative for flank pain, hematuria and urgency. Musculoskeletal: Negative for myalgias. Objective Blood pressure 132/72, pulse 84, temperature 37.1 C (98.8 F), temperature source Tympanic, resp. rate 16, weight 88.4 kg (194 lb 12.8 oz), SpO2 95 %. Physical Exam Constitutional: General: She is not in acute distress. Appearance: Normal appearance. She is not toxic-appearing. Cardiovascular: Rate and Rhythm: Normal rate and regular rhythm. Heart sounds: Normal heart sounds. Pulmonary: Effort: Pulmonary effort is normal. Breath sounds: Normal breath sounds. Abdominal: General: Bowel sounds are normal. Palpations: Abdomen is soft. Tenderness: There is no abdominal tenderness. There is no right CVA tenderness or left CVA tenderness. Genitourinary: Comments: No rash of groin or external genitalia noted. Musculoskeletal: Feet: Skin: General: Skin is warm and dry. ASSESSMENT/PLAN: 1. Burning with urination - ICD9: 788.1, ICD10: R30.0 (primary diagnosis) acute - UA positive for zahraa esterase - Send urine for culture - no medication ordered, treat per culture - UA DIP, URINE (POC) - URINE CULTURE 2. Acute right ankle pain - ICD9: 719.47, 338.19, ICD10: M25.571 Try diclofenac gel F/u for continued s/s - DICLOFENAC 1 % TOPICAL GEL 3. Rash - ICD9: 782.1, ICD10: R21 Cover with mupirocin F/u for continued s/s. - MUPIROCIN 2 % TOPICAL OINTMENT Steve Kenny APRN.MEDICAL RECORDS CUSTODIAN documented in this encounter [facility] 06-13-2022 Miscellaneous Notes [facility] calling asking for copy of medication list and diagnosis list for patient to be faxed to [phone]. Printed last office visit 06/07/2022 and copy of snap shot and faxed as requested. documented in this encounter [facility] 06-09-2022 Miscellaneous Notes Medication refill requested by Pharmacy Please review and advise. Requested Prescriptions Pending Prescriptions Disp Refills omeprazole (PRILOSEC) 20 mg capsule 90 capsule 3 Sig: Take 1 capsule by mouth daily before breakfast. 1/2 hr before meal. magnesium oxide (MAG-OX) 400 mg (241.3 mg magnesium) tablet 30 tablet 11 Sig: Take 1 tablet by mouth once daily. Last encounter with this provider: 06/07/2022 Next appt: Visit date not found Last 1 Encounter BP Readings: Date: BP: 06/07/2022 120/68 WBC (k/uL) Date Value 08/05/2021 4.60 Hemoglobin (g/dL) Date Value 08/05/2021 9.0 (L) Platelet Count (k/uL) Date Value 08/05/2021 199 Glucose (mg/dL) Date Value 08/05/2021 235 (H) BUN (mg/dL) Date Value 08/05/2021 11 Creatinine (mg/dL) Date Value 08/05/2021 1.08 (H) Sodium (mmol/L) Date Value 08/05/2021 138 Potassium (mmol/L) Date Value 08/05/2021 4.5 Calcium, Total (mg/dL) Date Value 08/05/2021 9.2 Alkaline Phosphatase (U/L) Date Value 06/09/2020 67 Bilirubin, Total (mg/dL) Date Value 06/09/2020 0.3 AST (U/L) Date Value 06/09/2020 13 ALT (U/L) Date Value 06/09/2020 10 Cholesterol, Total (mg/dL) Date Value 06/09/2020 154 Triglyceride (mg/dL) Date Value 06/09/2020 106 TSH (uU/mL) Date Value 06/14/2017 2.980 Darcy Sequeira RN documented in this encounter [facility] 06-07-2022 Note HNO ID: [id number] Author: Tiff Pearson MD Service: ? Author Type: Physician Type: Progress Notes Filed: 07/10/2022 11:28 PM Note Text: This note was created using Telismariter. Subjective Christopher Hobson is a 61 year old female. No chief complaint on file. SUBJECTIVE: Christopher Hobson is a 61 year old year old lady here today for follow up appointment for review of medical conditions: sciatica. Has been to Dr. Trevizo Also to ER 2 times--06/01 and yesterday. Went by squad one time. Toradol shot with relief for 1 day. Given yesterday. Nothing was given first time in ER. Tried medical marijuana through another doctor because cost less to go to other provider. Just made her high. Bought some back in March. States that Dr. Trevizo wanted her to try again. Does not want to go back to Dr. Trevizo. Shots in back and neck--states that just gets numbness but no pain. Noted that Nucynta was dropped from 100 to 50 mg dose of Nucynta twice daily then recently was pushed up to three times a day. States that cannot afford gas to get to PT. States that pain control was adequate for pain when Dr. Trevizo had her on Nucynta 100mg three times daily. He apparently lowered the dose since was on medical marijuana. Seems he does not want to increase dose back up and wants her to keep going to medical marijuana provider. States is tired of the shots. Did get new bed since last saw me, so this has helped. Noted cough and wheezing more lately. Using nebulizer--does help. Needs to use nebulizer 4 times day. Pain shoots to groin area--medial groin crease near privates but not affecting vaginal area. This groin pain is new. Hears cracking sound groin area on right . Has had injections in lower back tailborn area. Right arm is numb and cannot reach above head. Left limited as well. Was given neck injections before. Sees chiropractor. For adjustment. Due for follow up. 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 Secondary to E.coli bactremia -- continue norepinephrine and vasopressin to maintain MAP 65 Lunate fracture, closed 11/22/2012 MALIGNANT NEOPLASM COLON NOS(aka COLON) 10/09/2003 Ostomy in LLQ since surgical intervention in 2004 per pt Reviewed eval with Dr. 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 Diabetes on metformin Pain in limb 02/05/2010 Paranoid schizophrenia, chronic condition ([facility]) 1985 Peptic ulcer, unspecified site, unspecified as acute or chronic, without mention of hemorrhage, perforation, or obstruction 10/11/2004 Personal history of colonic polyps 2000 Physical deconditioning 03/14/2015 Due to prolonged ICU stay -- PT/OT consulted -- lift OOB today with lift team Post-op pain 02/25/2015 Fentanyl PRN Postoperative anemia due to acute blood loss 02/25/2015 Hgb 8.8 today, no active bleeding Last transfused 03/14 -- follow daily CBC and coags S/P colostomy ([facility]) SBO (small bowel obstruction) ([facility]) 09/11/2016 Skin lesion 03/09/2015 Skin sloughing on LEs with blisters, indeterminate purple lesions on back -> now improving Per Dermatology consult: linear erosions are most likely irritant contact dermatitis or pressure induced erosions. In addition there are small edema bullae on the abdominal wall Both require gentle wound care and em (more content not included)... [facility] 06-07-2022 Miscellaneous Notes Agree with her being seen today to decide on treatment plan/next steps. Pts called in and reports Pt is in pain and she went to the ER twice and they did nothing for her. He wanted to know if I could speed up her appointment. I told him that there weren't any earlier appointments that they could make it to and he was not happy. He said the one time in the ER they gave her a shot of something. I told him that provider cannot prescribe pain medication without seeing the Pt. He asked what she could do. I told him they could try Tylenol or Ibuprofen, ice or heat, OTC rubs, or OTC lidocaine patch. They reported that they had most of these and they didn't work, or just more money they would have to spend. Then they said she didn't want to go to Dr Trevizo any more and wanted an order to go to Dr Javier. Pts said Dr Trevizo wanted the Pt to take medical marijuana and the Pt did not want to take it. I told them that they could go over this with the provider when they came in. documented in this encounter [facility] 06-03-2022 Miscellaneous Notes TC to patient who verbalizes understanding. Pt was in car and unable to schedule physical at this time. Pt will call back once she returns home to schedule. PATRICIA Brito LEFT MESSAGE FOR PATIENT TO CALL OFFICE to scheduled an appointment. Not seen since 2020. Needs appointment for follow up--offer to have her see Shawn if not able to find slot that works for them in my schedule. I can pop over and say Hi if needed. Okayed this RX but needs seen The following approved medication requests have been transmitted electronically. Requested Prescriptions Signed Prescriptions Disp Refills metroNIDAZOLE (FLAGYL) 500 mg tablet 42 tablet 1 Sig: Take 1 tablet by mouth three times daily. May extend course as directed or take for recurrent infection as directed Authorizing Provider: TIFF PEARSON MD Last Office Visit: 08/17/2021 Future Office Visit: None Requested Prescriptions Pending Prescriptions Disp Refills metroNIDAZOLE (FLAGYL) 500 mg tablet 42 tablet 1 Sig: Take 1 tablet by mouth three times daily. May extend course as directed or take for recurrent infection as directed Date of Last Labs: 08/05/2021 documented in this encounter [facility] 05-31-2022 Note HNO ID: [id number] Author: Suzanna Escalante Service: ? Author Type: Physician Type: Progress Notes Filed: 05/31/2022 2:52 PM Note Text: Last saw pcp: March 2022 Subjective: Patient presents to clinic c/o painful toenails. They state that the nails are especially painful with shoe gear and pressure. Patient states that nails 1-5 b/l are painful. Patient admits to being diabetic. No other pedal complaints at this time. Patient states no change in medications or medical history since last visit. Objective: Patient presents to clinic ambulating in [facility] Vasc: DP and PT pulses are palpable bilateral. CFT is less than 5 seconds bilateral. Skin temperature is warm to cool proximal to distal bilateral. There is no edema or varicosities noted. Neuro: Protective sensation is intact to the foot and toes when tested with the 5.07 SWM bilateral. Vibratory sensation is decreased at the hallux IPJ bilateral. The hallux is downgoing bilateral. Derm: Nails 1-5 b/l are painful, discolored-yellow, thick, crumbly, dystrophic and with subungal debris. Skin is of normal turgor, texture and hair growth is present bilateral. There are no hyperkeratosis, ulcerations, scars, verruca or other lesions noted. Ortho: Muscle strength is 5/5 for all pedal groups tested. Ankle joint DF is full with the knee extended with no pain or crepitus noted. 1st MPJ ROM is full bilateral. 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 Nails 1-5 bilateral were debrided in length and thickness. Patient was instructed on the continued importance of diabetic foot care along with proper diet and keeping their blood sugar under control to prevent complications. Patient is to RTC in 3-4 months. Suzanna Escalante DPM [facility] 05-31-2022 Note HNO ID: [id number] Author: Destiny Sandoval RN Service: ? Author Type: Registered Nurse Type: Progress Notes Filed: 05/31/2022 2:52 PM Note Text: Patient presents with: Left Foot - Established Patient, Follow Up, Diabetic Foot Care Right Foot - Established Patient, Follow Up, Diabetic Foot Care Patient presents for follow up for nail care. States has some pain but it is mostly at night. [facility] 05-31-2022 History of Presen t illness Narrative Last saw pcp: March 2022 Subjective: Patient presents to clinic c/o painful toenails. They state that the nails are especially painful with shoe gear and pressure. Patient states that nails 1-5 b/l are painful. Patient admits to being diabetic. No other pedal complaints at this time. Patient states no change in medications or medical history since last visit. Objective: Patient presents to clinic ambulating in sneakers Vasc: DP and PT pulses are palpable bilateral. CFT is less than 5 seconds bilateral. Skin temperature is warm to cool proximal to distal bilateral. There is no edema or varicosities noted. Neuro: Protective sensation is intact to the foot and toes when tested with the 5.07 SWM bilateral. Vibratory sensation is decreased at the hallux IPJ bilateral. The hallux is downgoing bilateral. Derm: Nails 1-5 b/l are painful, discolored-yellow, thick, crumbly, dystrophic and with subungal debris. Skin is of normal turgor, texture and hair growth is present bilateral. There are no hyperkeratosis, ulcerations, scars, verruca or other lesions noted. Ortho: Muscle strength is 5/5 for all pedal groups tested. Ankle joint DF is full with the knee extended with no pain or crepitus noted. 1st MPJ ROM is full bilateral. 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 Nails 1-5 bilateral were debrided in length and thickness. Patient was instructed on the continued importance of diabetic foot care along with proper diet and keeping their blood sugar under control to prevent complications. Patient is to RTC in 3-4 months. Suzanna Escalante DPM Patient presents with: Left Foot - Established Patient, Follow Up, Diabetic Foot Care Right Foot - Established Patient, Follow Up, Diabetic Foot Care Patient presents for follow up for nail care. States has some pain but it is mostly at night. documented in this encounter [facility] 05-31-2022 Instructions Suzanna Escalante - 05/31/2022 2:44 PM EDT Diabetes Foot Care Instructions When you have diabetes, proper foot care is very important. Poor foot care may lead to amputation of a foot or leg. As a person with diabetes, you are more vulnerable to foot problems, because diabetes can damage your nerves and reduce blood flow to your feet. Here are some diabetes foot care tips to follow: Wash and Dry Your Feet Daily Use mild soaps Use warm water Pat your skin dry; do not rub. Thoroughly dry your feet. After washing, use lotion on your feet to prevent cracking. Do not put lotion between your toes. Examine Your Feet Each Day Check the tops and bottoms of your feet. Have someone else look at your feet if you cannot see them. Check for dry, cracked skin. Look for blisters, cuts, scratches, or other sores. Check for redness, increased warmth, or tenderness when touching any area of your feet. Check for ingrown toenails, corns, and calluses. If you get a blister or sore from your shoes, do not pop it. Apply a bandage and wear a different pair of shoes. Take Care of Your Toenails Cut toenails after bathing, when they are soft. Cut toenails straight across and smooth with a nail file. Avoid cutting into the corners of toes. Do not cut cuticles. If you have neuropathy (or decreased sensation in your feet) a sports analyst should always cut your toenails. Be Careful When Exercising Walk and exercise in comfortable shoes. Do not exercise when you have open sores on your feet. Protect Your Feet With Shoes and Socks Never go barefoot. Always protect your feet by wearing shoes or hard-soled slippers or footwear. Avoid shoes with high heels and pointed toes. Avoid shoes that expose your toes or heels (such as open-toed shoes or sandals). These types of shoes increase your risk for injury and potential infections. Try on new footwear with the type of socks you usually wear. Do not wear new shoes for more than an hour at a time. Change your socks daily. Look and feel inside your shoes before putting them on to make sure there are no foreign objects or rough areas. Avoid tight socks. Wear natural-fiber socks (cotton, wool, or a cotton-wool blend). Wear special shoes if your health care provider recommends them. Wear shoes/boots that will protect your feet from various weather conditions (cold, moisture, etc.). Make sure your shoes fit properly. If you have neuropathy (nerve damage), you may not notice that your shoes are too tight. Perform the footwear test described below. Footwear Test Use this simple test to see if your shoes fit correctly: Stand on a piece of paper. (Make sure you are standing and not sitting, because your foot changes shape when you stand.) Trace the outline of your foot. Trace the outline of your shoe. Compare the tracings: Is the shoe too narrow? Is your foot crammed into the shoe? The shoe should be at least 1/2 inch longer than your longest toe and as wide as your foot. Proper Shoe Choices The following types of shoes are best for people with diabetes Closed toes and heels Leather uppers without a seam inside At least 1/2 inch extra space at the end of your longest toe Inside of shoe should be soft with no rough areas Outer sole should be made of stiff material Shoes should be at least as wide as your feet Tips for Foot Care in Diabetes Don't wait to treat a minor foot problem if you have diabetes. Follow your health care provider's guidelines and first aid guidelines. Report foot injuries and infections to your health care provider immediately. Check water temperature with your elbow, not your foot. Do not use a heating pad on your feet. Do not cross your legs. Do not self-treat your corns, calluses, or other foot problems. Go to your health care provider or sports analyst to treat these conditions. documented in this encounter [facility] 04-30-2022 Note HNO ID: [id number] Author: Lisa Tinoco PA-C Service: ? Author Type: Physician Pyridine Recovery Operator Type: Progress Notes Filed: 04/30/2022 1:00 PM Note Text: This note was created using LC [email or web address]. Subjective Christopher Hobson is a 61 year old female. HPI Patient presents with the chief complaint of cough and congestion since this morning. She has felt short of breath and wheezy. She has a history of COPD, diabetes, heart block, previous tracheostomy. No temp taken at home. She is 99.5 here. She did not take any fever reducers today. is sick with similar symptoms. Her chest does hurt from coughing. No vomiting or diarrhea. Review of Systems Constitutional: Positive for fatigue. HENT: Positive for congestion and rhinorrhea. Negative for ear pain. Respiratory: Positive for cough, shortness of breath and wheezing. Cardiovascular: Negative. Gastrointestinal: Negative. Genitourinary: Negative. Musculoskeletal: Negative. All other systems reviewed and are negative. 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 Secondary to E.coli bactremia -- continue norepinephrine and vasopressin to maintain MAP 65 Lunate fracture, closed 11/22/2012 MALIGNANT NEOPLASM COLON NOS(aka COLON) 10/09/2003 Ostomy in LLQ since surgical intervention in 2004 per pt Reviewed eval with Dr. 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 Diabetes on metformin Pain in limb 02/05/2010 Paranoid schizophrenia, chronic condition ([facility]) 1985 Peptic ulcer, unspecified site, unspecified as acute or chronic, without mention of hemorrhage, perforation, or obstruction 10/11/2004 Personal history of colonic polyps 2000 Physical deconditioning 03/14/2015 Due to prolonged ICU stay -- PT/OT consulted -- lift OOB today with lift team Post-op pain 02/25/2015 Fentanyl PRN Postoperative anemia due to acute blood loss 02/25/2015 Hgb 8.8 today, no active bleeding Last transfused 03/14 -- follow daily CBC and coags S/P colostomy ([facility]) SBO (small bowel obstruction) ([facility]) 09/11/2016 Skin lesion 03/09/2015 Skin sloughing on LEs with blisters, indeterminate purple lesions on back -> now improving Per Dermatology consult: linear erosions are most likely irritant contact dermatitis or pressure induced erosions. In addition there are small edema bullae on the abdominal wall Both require gentle wound care and emollients such as aquaphor or petroleum jelly -- monitor Tracheostomy in place ([facility]) Placed 2015 after prolonged respiratory failure, unable to liberate from vent. Unspecified migraine 1998 Ventral hernia with bowel obstruction 09/10/2016 Added automatically from request for surgery [id number] VRE bacteremia 09/29/2016 Current Outpatient Medications Medication Sig Dispense Refill guaiFENesin (MUCINEX) 600 mg 12 hr tablet Take 2 tablets by mouth twice daily. 60 tablet 11 pravastatin (PRAVACHOL) 40 mg tablet Take 1 tablet by mouth once daily. 90 tablet 3 insulin glargine (LANTUS SOLOSTAR U-100 INSULIN) 100 unit/mL (3 mL) Inject 18 Units subcutaneously daily at bedtime AND 2 Units daily at bedtime. Adjust as directed (2 units to prime pen needle. 5 Pen 4 alcohol swabs (SURE-PREP ALCHOLOL PREP PADS) Test blood sugars 4 x's daily. Dx: E11.65 Insulin: Yes 200 Each 11 ipratropium-albuterol (DUON (more content not included)... [facility] 04-30-2022 History of Presen t illness Narrative This note was created using Telismariter. Subjective Christopher Hobson is a 61 year old female. HPI Patient presents with the chief complaint of cough and congestion since this morning. She has felt short of breath and wheezy. She has a history of COPD, diabetes, heart block, previous tracheostomy. No temp taken at home. She is 99.5 here. She did not take any fever reducers today. is sick with similar symptoms. Her chest does hurt from coughing. No vomiting or diarrhea. Review of Systems Constitutional: Positive for fatigue. HENT: Positive for congestion and rhinorrhea. Negative for ear pain. Respiratory: Positive for cough, shortness of breath and wheezing. Cardiovascular: Negative. Gastrointestinal: Negative. Genitourinary: Negative. Musculoskeletal: Negative. All other systems reviewed and are negative. 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 Secondary to E.coli bactremia -- continue norepinephrine and vasopressin to maintain MAP 65 Lunate fracture, closed 11/22/2012 MALIGNANT NEOPLASM COLON NOS(aka COLON) 10/09/2003 Ostomy in LLQ since surgical intervention in 2004 per pt Reviewed eval with Dr. 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 Diabetes on metformin Pain in limb 02/05/2010 Paranoid schizophrenia, chronic condition ([facility]) 1985 Peptic ulcer, unspecified site, unspecified as acute or chronic, without mention of hemorrhage, perforation, or obstruction 10/11/2004 Personal history of colonic polyps 2000 Physical deconditioning 03/14/2015 Due to prolonged ICU stay -- PT/OT consulted -- lift OOB today with lift team Post-op pain 02/25/2015 Fentanyl PRN Postoperative anemia due to acute blood loss 02/25/2015 Hgb 8.8 today, no active bleeding Last transfused 03/14 -- follow daily CBC and coags S/P colostomy ([facility]) SBO (small bowel obstruction) ([facility]) 09/11/2016 Skin lesion 03/09/2015 Skin sloughing on LEs with blisters, indeterminate purple lesions on back -> now improving Per Dermatology consult: linear erosions are most likely irritant contact dermatitis or pressure induced erosions. In addition there are small edema bullae on the abdominal wall Both require gentle wound care and emollients such as aquaphor or petroleum jelly -- monitor Tracheostomy in place ([facility]) Placed 2015 after prolonged respiratory failure, unable to liberate from vent. Unspecified migraine 1998 Ventral hernia with bowel obstruction 09/10/2016 Added automatically from request for surgery [id number] VRE bacteremia 09/29/2016 Current Outpatient Medications Medication Sig Dispense Refill guaiFENesin (MUCINEX) 600 mg 12 hr tablet Take 2 tablets by mouth twice daily. 60 tablet 11 pravastatin (PRAVACHOL) 40 mg tablet Take 1 tablet by mouth once daily. 90 tablet 3 insulin glargine (LANTUS SOLOSTAR U-100 INSULIN) 100 unit/mL (3 mL) Inject 18 Units subcutaneously daily at bedtime AND 2 Units daily at bedtime. Adjust as directed (2 units to prime pen needle. 5 Pen 4 alcohol swabs (SURE-PREP ALCHOLOL PREP PADS) Test blood sugars 4 x's daily. Dx: E11.65 Insulin: Yes 200 Each 11 ipratropium-albuterol (DUONEB) 0.5 mg-3 mg(2.5 mg base)/3 mL nebu Inhale 3 mL as instructed four times daily as needed (wheezing). Use over 5-15minutes per nebulizer. 380 Vial 3 insulin needles, DISPOSABLE, (PEN NEEDLE) 31 gauge x 5/16 Use one needle per dose (Lantus and Humalog). 5 per day. 150 Each 11 Lancets lancets Test blood sugar(s) 1 times daily and as needed. Dx: Type 2 DM - Uncontrolled E11.65 Insulin: Yes 100 Each 11 Nebulizer and Compressor For Neb 1 Each as needed (Use as directed for treatment of asthma). 1 Each 0 Nebulizer Accessories [facility] [place] new nebulizer mask, hose and supplies. (J45.20) Intermittent asthma without complication 1 Each 0 prednisoLONE acetate (PRED FORTE) 1 % ophthalmic suspension Use 1 Drop in the right eye four times daily. 15 mL 0 blood sugar diagnostic (TRUE METRIX GLUCOSE TEST STRIP) test strip Check blood sugar 4 times daily. DX: E11.65. Insulin : yes 150 Each 11 albuterol HFA (PROVENTIL HFA, VENTOLIN HFA) 90 mcg/actuation inhaler Inhale 2 Puffs as instructed every 4 hours as needed. 18 g 1 magnesium oxide (MAG-OX) 400 mg (241.3 mg magnesium) tablet Take 1 tablet by mouth once daily. 30 tablet 11 omeprazole (PRILOSEC) 20 mg capsule Take 1 capsule by mouth daily before breakfast. 1/2 hr before meal. 90 capsule 3 glimepiride (AMARYL) 4 mg tablet Take 1 tablet by mouth daily with breakfast. Patient may take an extra half pill once a day for blood sugars over 200. 45 tablet 11 Blood-Glucose Meter (ONETOUCH VERIO METER) Test blood sugar 4 times daily. Dx: Type 2 DM. Uncontrolled E11. Insulin: yes. 1 Each 0 blood sugar diagnostic (ONETOUCH VERIO TEST STRIPS) test strip Test blood sugar 4 times daily. Dx: Type 2 DM. Uncontrolled E11.. Insulin: yes 150 Strip 11 Zinc Oxide 40 % oint Apply to affected area as needed. 57 g 3 Ostomy Supplies (ADHESIVE REMOVER WIPES) swab All Care brand. Use as directed 100 Each 5 fluPHENAZine (PROLIXIN) 1 mg tablet Take 3 mg by mouth once daily. blood sugar diagnostic (BLOOD GLUCOSE TEST) test strip Test blood sugar(s) 1 times daily and as needed. Dx: Type 2 DM - Uncontrolled Insulin: Yes 50 Strip 11 blood sugar diagnostic (BLOOD GLUCOSE TEST) test strip Test blood sugar(s) 4 times daily and as needed as directed. Dx: Type 2 DM - Uncontrolled Insulin: Yes 150 Strip 11 Nebulizer Accessories [facility] [place]eds new nebulizer mask, hose and supplies. (J45.20) Intermittent asthma without complication 1 Each 0 Nebulizer New (not refurbished) NEBULIZER FOR HOME USE with Duoneb 4 x a day. DX: J45.909, Z87.09. Lifetime supplies of mask/tubing, patient has tracheostomy. 1 Kit 1 blood sugar diagnostic (FREESTYLE INSULINX) test strip Test blood sugar(s) 4 times daily and as needed. Dx: Type 2 DM - Uncontrolled E11.65 Insulin: Yes 150 Strip 11 melatonin 3 mg Take 2 tablets by mouth daily at bedtime. (Patient taking differently: Take 10 mg by mouth daily at bedtime.) 0 VRAYLAR 3 mg cap Take 3 mg by mouth daily at bedtime. white petrolatum-mineral oil (EUCERIN) cream Apply 1 application to affected area as needed for Dry Skin (all dry skin areas). 120 g 1 doxycycline (VIBRA-TABS) 100 mg tablet Take 1 tablet by mouth twice daily for 7 days. 14 tablet 0 benzonatate (TESSALON PERLES) 100 mg capsule Take 2 capsules by mouth three times daily as needed. 30 capsule 0 fluticasone (FLONASE) 50 mcg/actuation nasal spray Use 2 Sprays in each nostril once daily. Rinse mouth after use. 1 Each 0 hydrocortisone 2.5 % cream Apply 1 application to affected area twice daily as needed. Location: neck (reaction to tape adhesive) May also use for poison tania. Use up to 14 days per episode of rash. 28 g 2 nnwyimoafgGFADG-pdhfgw-nyzfdasjy (BMX 1:1:1) 1:1:1 liqd Mix in equal amounts - 1 T every 2hrs as needed for mouth pain, Swish/swallow or expectorate. (8oz) 240 mL 0 metroNIDAZOLE (FLAGYL) 500 mg tablet Take 1 tablet by mouth three times daily. May extend course as directed or take for recurrent infection as directed 42 tablet 1 benzonatate (TESSALON PERLES) 100 mg capsule Take 1-2 capsules by mouth three times daily as needed. (Patient not taking: Reported on 04/30/2022) 30 capsule 0 vancomycin 25 mg/mL ophthalmic drops ([facility]) Use 1 Drop in the right eye every 2 hours. 15 mL 0 cefTAZidime ophthalmic solution 2.5% (25 mg/mL) (IP-CPD) Use 1 Drop in the right eye every 4 hours while awake. (Patient not taking: Reported on 04/30/2022) 15 mL 0 Blood-Glucose Meter (TRUE METRIX GLUCOSE METER) Testing one time daily and as needed DX E11.65 Insulin YES 1 Each 0 Lidocaine-Hydrocortisone Ac 3-0.5 % crea by RECTAL route twice daily for 14 days. 28.3 g 1 miconazole (CADENCE ANTIFUNGAL) 2 % cream Apply 1 application to affected area twice daily. To perirectal and buttocks area 42.5 g 11 triamcinolone acetonide (KENALOG) 0.1 % cream Apply 1 application to affected area three times daily. Apply sparingly to area for rash/itching till rash resolves. For contact dermatitis 30 g 1 ketoconazole (NIZORAL) 2 % cream Apply 1 application to affected area once daily. as needed 30 g 2 phenazopyridine (PYRIDIUM) 100 mg tablet Take 1 tablet by mouth three times daily as needed. 12 tablet 0 tapentadol (NUCYNTA) 75 mg tab Taking 1 twice a day per Dr Trevizo. Earliest Fill Date: 01/24/18 0 Adhesive Tape ([facility]) 2 X 10 -yard tape Use for dressings for healing tracheostomy site. 1 Each 1 traZODone (DESYREL) 100 mg tablet Take 3 tablets by mouth daily at bedtime. ([facility]) topiramate (TOPAMAX) 100 mg tablet Take 1 tablet by mouth once daily. Per psychiatrist (Patient taking differently: Take 100 mg by mouth three times daily. Per psychiatrist) No current facility-administered medications for this visit. PAST SURGICAL HISTORY Procedure Laterality Date ANESTH,VAGINAL DELIVERY 1977,1979,1985, 1986 w/ episiotomies APPENDECTOMY DILATION & CURETTAGE DX&/THER NONOBSTETRIC 1977 Dilation & curettage INDUCED DILATION AND CURETTAGE LIG/TRNSXJ FLP TUBE ABDL/VAG APPR UNI/BI Tubal ligation NEUROPLASTY &/TRANSPOS MEDIAN NRV CARPAL TUNNE 2006 Carpal tunnel decomp right NEUROPLASTY &/TRANSPOS MEDIAN NRV CARPAL TUNNE Carpal tunnel decomp left PAST SURGICAL HISTORY OF 2004 Abdominal surgeries for hernia repairs PAST SURGICAL HISTORY OF 2008 Ileostomy PAST SURGICAL HISTORY OF 09/12/2016 Underwent ex lap, takedown of prior ostomy, RONEY and creation of new end ileostomy on 09/12/16 for parastomal hernia with closed loop hernia PAST SURGICAL HISTORY OF 09/28/2016 Permanent Pacemaker Placement for complete heart block REDUCE BOWEL OBSTRUCTION Late February 2015 acute bowel obstruction. SB resection. REVJ COLOSTOMY COMP RCNSTJ IN-DEPTH SPX 2000 3-4 surgeries TONSILLECTOMY PRIMARY/SECONDARY AGE 10/> TRACHEOSTOMY HX 03/12/2015 protracted critical stay, failure to wean after bowel obtruction FAMILY HISTORY Problem Relation Age of Onset other (Pneumonia) Mother Heart Father Thyroid Daughter Thyroid Daughter Asthma No Family History Cancer No Family History No lung cancer. COPD No Family History Social History Tobacco Use Smoking status: Former Packs/day: 2.00 Years: 45.00 Pack years: 90.00 Types: Cigarettes Start date: 1965 Quit date: 08/27/2010 Years since quittin.6 Smokeless tobacco: Current Tobacco comments: Medical Vaping Use Vaping Use: Never used Substance Use Topics Alcohol use: No Drug use: Yes Comment: Cocaine abuse, quit before 1999. Objective BP 128/82 Pulse 84 Temp 37.5 C (99.5 F) (Temporal) Resp 20 Wt 86.3 kg (190 lb 3.2 oz) SpO2 96% BMI 30.70 kg/m Physical Exam Vitals reviewed. Constitutional: Appearance: Normal appearance. HENT: Head: Normocephalic and atraumatic. Right Ear: Tympanic membrane, ear canal and external ear normal. Left Ear: Tympanic membrane, ear canal and external ear normal. Nose: Congestion present. Mouth/Throat: Mouth: Mucous membranes are moist. Pharynx: Oropharynx is clear. Cardiovascular: Rate and Rhythm: Normal rate and regular rhythm. Heart sounds: Normal heart sounds. Pulmonary: Effort: Pulmonary effort is normal. Breath sounds: Normal breath sounds. Musculoskeletal: Cervical back: Neck supple. Skin: General: Skin is warm and dry. Neurological: Mental Status: She is alert. Assessment and Plan ASSESSMENT/PLAN: 1. COPD (chronic obstructive pulmonary disease) with acute bronchitis (HCC) - ICD9: 491.22, ICD10: J44.0, J20.9 Recommended COVID/flu testing, patient and declined. We will treat with Tessalon, use albuterol inhalers/nebulizer at home. Given Flonase for the nasal congestion. Patient and insist on antibiotic despite trying to educate them the 3 hours of symptoms doesn't warrant one. Doxycycline rx as safety net. Lisa Tinoco PA-C documented in this encounter [facility] 04-26-2022 Miscellaneous Notes Patient has been identified by name and date of : Yes, Provider Dr Pearson Date 04/26/22 Time 1235. Patient phones for refill(s): Requested Prescriptions Pending Prescriptions Disp Refills hydrocortisone 2.5 % cream 28 g 2 Sig: Apply 1 application to affected area twice daily as needed. Location: neck (reaction to tape adhesive) May also use for poison tania. Use up to 14 days per episode of rash. guaiFENesin (MUCINEX) 600 mg 12 hr tablet 60 tablet 11 Sig: Take 2 tablets by mouth twice daily. Date of last office visit in primary care: 08/17/21 Future visit: none Last 2 Encounter Wt Readings: Date: Wt: 01/06/2022 79.4 kg (175 lb) 08/09/2021 79.8 kg (176 lb) Previous labs/tests for medication: Blood Pressure: BUN (mg/dL) Date Value 08/05/2021 11 06/09/2020 13 Sodium (mmol/L) Date Value 08/05/2021 138 06/09/2020 134 Last 1 Encounter BP Readings: Date: BP: 01/06/2022 134/78 Liver Function: ALT (U/L) Date Value 06/09/2020 10 AST (U/L) Date Value 06/09/2020 13 Please advise. Thank you. Destiny Veloz RN documented in this encounter [facility] 01-06-2022 Miscellaneous Notes Patient calling to ask about the med she was prescribed at [facility] today. Patient denies any new or worsening symptoms of which a provider is not aware: Yes. Pt states, I was prescribed a medicine for mouth pain. It was sent over to the [facility]'s pharmacy, but their computers are down. We're at the [facility] now, and we need to know the name of the medicine. Informed pt that the med sent over to the [facility] pharmacy today is BMX. Pt talking with Sera Barnes pharmacist while control systems engineer with Nurse radio communications superintendent. Pharmacist stated, we will get the prescription transfer from the [facility] pharmacy. documented in this encounter [facility] 01-06-2022 History of Presen t illness Narrative Images from the original note were not included. Subjective Patient came in with complaints of sores on the roof of her mouth. Patient says its only been there about 3 days. Patient is not sure if she burned it or injured it with food. Patient does not wear any dentures. Patient says she is never had this before. Patient denies any other symptoms with it. The history is provided by the patient. No power generation turbine room operator was used. Review of Systems Constitutional: Negative. Skin: Negative. Objective Physical Exam Constitutional: Appearance: Normal appearance. HENT: Mouth/Throat: Comments: Patient does have several overall areas as indicated above. No signs of infection or drainage at this time. No swelling or erythema noted. No white coating. Pulmonary: Effort: Pulmonary effort is normal. Neurological: Mental Status: She is alert. PAST MEDICAL HISTORY Diagnosis Date Acute anaphylaxis 09/15/2016 Acute peptic ulcer, unspecified site, without mention of hemorrhage, perforation, or obstruction 1999 Asthma Bowel disease Colon polyps Bowel obstruction ([facility]) 02/24/2015 Presented to hospital with obstruction, now [...] drain, and TPN on transfer to [facility] Chronic obstructive pulmonary disease (COPD) ([facility]) 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 02/05/2010 Diabetes ([facility]) 1999 On insulin 2015 Dyslipidemia Encephalopathy in sepsis 02/28/2015 CT head and EEG done to confirm Endogenous endophthalmitis Hematoma 06/17/2016 Hematuria, unspecified 04/09/2008 UA with blood in 04-14: need to repeat as cloudy with protein as well Hypotension 02/25/2015 Hypotensive despite fluid resuscitation, remains on pressors. Secondary to E.coli bactremia -- continue norepinephrine and vasopressin to maintain MAP 65 Lunate fracture, closed 11/22/2012 MALIGNANT NEOPLASM COLON NOS(aka COLON) 10/09/2003 Ostomy in LLQ since surgical intervention in 2004 per pt Reviewed eval with Dr. 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 Diabetes on metformin Pain in limb 02/05/2010 Paranoid schizophrenia, chronic condition ([facility]) 1985 Peptic ulcer, unspecified site, unspecified as acute or chronic, without mention of hemorrhage, perforation, or obstruction 10/11/2004 Personal history of colonic polyps 2000 Physical deconditioning 03/14/2015 Due to prolonged ICU stay -- PT/OT consulted -- lift OOB today with lift team Post-op pain 02/25/2015 Fentanyl PRN Postoperative anemia due to acute blood loss 02/25/2015 Hgb 8.8 today, no active bleeding Last transfused 03/14 -- follow daily CBC and coags S/P colostomy ([facility]) SBO (small bowel obstruction) ([facility]) 09/11/2016 Skin lesion 03/09/2015 Skin sloughing on LEs with blisters, indeterminate purple lesions on back -> now improving Per Dermatology consult: linear erosions are most likely irritant contact dermatitis or pressure induced erosions. In addition there are small edema bullae on the abdominal wall Both require gentle wound care and emollients such as aquaphor or petroleum jelly -- monitor Tracheostomy in place ([facility]) Placed 2015 after prolonged respiratory failure, unable to liberate from vent. Unspecified migraine 1998 Ventral hernia with bowel obstruction 09/10/2016 Added automatically from request for surgery [id number] VRE bacteremia 09/29/2016 PAST SURGICAL HISTORY Procedure Laterality Date ANESTH,VAGINAL DELIVERY 1977,1979,1985, 1986 w/ episiotomies APPENDECTOMY DILATION & CURETTAGE DX&/THER NONOBSTETRIC 1977 Dilation & curettage INDUCED DILATION AND CURETTAGE LIG/TRNSXJ FLP TUBE ABDL/VAG APPR UNI/BI Tubal ligation NEUROPLASTY &/TRANSPOS MEDIAN NRV CARPAL TUNNE 2006 Carpal tunnel decomp right NEUROPLASTY &/TRANSPOS MEDIAN NRV CARPAL TUNNE Carpal tunnel decomp left PAST SURGICAL HISTORY OF 2004 Abdominal surgeries for hernia repairs PAST SURGICAL HISTORY OF 2008 Ileostomy PAST SURGICAL HISTORY OF 09/12/2016 Underwent ex lap, takedown of prior ostomy, RONEY and creation of new end ileostomy on 09/12/16 for parastomal hernia with closed loop hernia PAST SURGICAL HISTORY OF 09/28/2016 Permanent Pacemaker Placement for complete heart block REDUCE BOWEL OBSTRUCTION Late February 2015 acute bowel obstruction. SB resection. REVJ COLOSTOMY COMP RCNSTJ IN-DEPTH SPX 2000 3-4 surgeries TONSILLECTOMY PRIMARY/SECONDARY AGE 10/> TRACHEOSTOMY HX 03/12/2015 protracted critical stay, failure to wean after bowel obtruction ALLERGIES Goss, Lemon, Pears, Cephalosporins, Ciprofloxacin, Codeine, Diclofenac, Dilaudid [Hydromorphone (Bulk)], Lipitor [Atorvastatin Calcium], Lyrica [Pregabalin], Opioids - Morphine Analogues, Penicillins, Percocet [Oxycodone-Acetaminophen], Soap, Vicodin [Hydrocodone-Acetaminophen], and Zithromax [Azithromycin] MEDICATIONS pravastatin (PRAVACHOL) 40 mg tablet Take 1 tablet by mouth once daily. metroNIDAZOLE (FLAGYL) 500 mg tablet Take 1 tablet by mouth three times daily. May extend course as directed or take for recurrent infection as directed insulin glargine (LANTUS SOLOSTAR U-100 INSULIN) 100 unit/mL (3 mL) Inject 18 Units subcutaneously daily at bedtime AND 2 Units daily at bedtime. Adjust as directed (2 units to prime pen needle. alcohol swabs (SURE-PREP ALCHOLOL PREP PADS) Test blood sugars 4 x's daily. Dx: E11.65 Insulin: Yes ipratropium-albuterol (DUONEB) 0.5 mg-3 mg(2.5 mg base)/3 mL nebu Inhale 3 mL as instructed four times daily as needed (wheezing). Use over 5-15minutes per nebulizer. hydrocortisone 2.5 % cream Apply 1 application to affected area twice daily as needed. Location: neck (reaction to tape adhesive) May also use for poison tania. Use up to 14 days per episode of rash. insulin needles, DISPOSABLE, (PEN NEEDLE) 31 gauge x 5/16 Use one needle per dose (Lantus and Humalog). 5 per day. Lancets lancets Test blood sugar(s) 1 times daily and as needed. Dx: Type 2 DM - Uncontrolled E11.65 Insulin: Yes Nebulizer and Compressor For Neb 1 Each as needed (Use as directed for treatment of asthma). Nebulizer [place] [facility] [place] new nebulizer mask, hose and supplies. (J45.20) Intermittent asthma without complication benzonatate (TESSALON PERLES) 100 mg capsule Take 1-2 capsules by mouth three times daily as needed. prednisoLONE acetate (PRED FORTE) 1 % ophthalmic suspension Use 1 Drop in the right eye four times daily. blood sugar diagnostic (TRUE METRIX GLUCOSE TEST STRIP) test strip Check blood sugar 4 times daily. DX: E11.65. Insulin : yes vancomycin 25 mg/mL ophthalmic drops ([facility]) Use 1 Drop in the right eye every 2 hours. cefTAZidime ophthalmic solution 2.5% (25 mg/mL) (IP-CPD) Use 1 Drop in the right eye every 4 hours while awake. albuterol HFA (PROVENTIL HFA, VENTOLIN HFA) 90 mcg/actuation inhaler Inhale 2 Puffs as instructed every 4 hours as needed. magnesium oxide (MAG-OX) 400 mg (241.3 mg magnesium) tablet Take 1 tablet by mouth once daily. Blood-Glucose Meter (TRUE METRIX GLUCOSE METER) Testing one time daily and as needed DX E11.65 Insulin YES omeprazole (PRILOSEC) 20 mg capsule Take 1 capsule by mouth daily before breakfast. 1/2 hr before meal. glimepiride (AMARYL) 4 mg tablet Take 1 tablet by mouth daily with breakfast. Patient may take an extra half pill once a day for blood sugars over 200. miconazole (CADENCE ANTIFUNGAL) 2 % cream Apply 1 application to affected area twice daily. To perirectal and buttocks area guaiFENesin (MUCINEX) 600 mg 12 hr tablet Take 2 tablets by mouth twice daily. triamcinolone acetonide (KENALOG) 0.1 % cream Apply 1 application to affected area three times daily. Apply sparingly to area for rash/itching till rash resolves. For contact dermatitis Blood-Glucose Meter (ONETOUCH VERIO METER) Test blood sugar 4 times daily. Dx: Type 2 DM. Uncontrolled . Insulin: yes. blood sugar diagnostic (ONETOUCH VERIO TEST STRIPS) test strip Test blood sugar 4 times daily. Dx: Type 2 DM. Uncontrolled . Insulin: yes Zinc Oxide 40 % oint Apply to affected area as needed. ketoconazole (NIZORAL) 2 % cream Apply 1 application to affected area once daily. as needed Ostomy Supplies (ADHESIVE REMOVER WIPES) swab All Care brand. Use as directed fluPHENAZine (PROLIXIN) 1 mg tablet Take 3 mg by mouth once daily. blood sugar diagnostic (BLOOD GLUCOSE TEST) test strip Test blood sugar(s) 1 times daily and as needed. Dx: Type 2 DM - Uncontrolled Insulin: Yes blood sugar diagnostic (BLOOD GLUCOSE TEST) test strip Test blood sugar(s) 4 times daily and as needed as directed. Dx: Type 2 DM - Uncontrolled Insulin: Yes Nebulizer Accessories [facility] [place] new nebulizer mask, hose and supplies. (J45.20) Intermittent asthma without complication phenazopyridine (PYRIDIUM) 100 mg tablet Take 1 tablet by mouth three times daily as needed. Nebulizer New (not refurbished) NEBULIZER FOR HOME USE with Duoneb 4 x a day. DX: J45.909, Z87.09. Lifetime supplies of mask/tubing, patient has tracheostomy. tapentadol (NUCYNTA) 75 mg tab Taking 1 twice a day per Dr Trevizo. Earliest Fill Date: 01/24/18 blood sugar diagnostic (FREESTYLE INSULINX) test strip Test blood sugar(s) 4 times daily and as needed. Dx: Type 2 DM - Uncontrolled Insulin: Yes Adhesive Tape ([employer]) 2 X 10 -yard tape Use for dressings for healing tracheostomy site. traZODone (DESYREL) 100 mg tablet Take 3 tablets by mouth daily at bedtime. ([facility]) topiramate (TOPAMAX) 100 mg tablet Take 1 tablet by mouth once daily. Per psychiatrist (Patient taking differently: Take 100 mg by mouth three times daily. Per psychiatrist) melatonin 3 mg Take 2 tablets by mouth daily at bedtime. (Patient taking differently: Take 10 mg by mouth daily at bedtime.) VRAYLAR 3 mg cap Take 3 mg by mouth daily at bedtime. white petrolatum-mineral oil (EUCERIN) cream Apply 1 application to affected area as needed for Dry Skin (all dry skin areas). xmqguvualzONEDQ-nxrfbx-npiulirfh (BMX 1:1:1) 1:1:1 liqd Mix in equal amounts - 1 T every 2hrs as needed for mouth pain, Swish/swallow or expectorate. (8oz) Lidocaine-Hydrocortisone Ac 3-0.5 % crea by RECTAL route twice daily for 14 days. FAMILY HISTORY Problem Relation Age of Onset other (Pneumonia) Mother Heart Father Thyroid Daughter Thyroid Daughter Asthma No Family History Cancer No Family History No lung cancer. COPD No Family History Social History Tobacco Use Smoking status: Former Packs/day: 2.00 Years: 45.00 Pack years: 90.00 Types: Cigarettes Start date: 1965 Quit date: 08/27/2010 Years since quittin.3 Smokeless tobacco: Never Vaping Use Vaping Use: Never used Substance Use Topics Alcohol use: No Drug use: Yes Comment: Cocaine abuse, quit before 1999. ASSESSMENT/PLAN: 1. Mouth sore - ICD9: 528.9, ICD10: K13.79 BMX solution prescribed patient educated about proper use of medication and supportive therapies. Patient will follow-up in about a week if signs and symptoms seem to be getting worse not better. Patient was okay with this care plan. Cathy Lawler APRN.CNP documented in this encounter [facility] 12-28-2021 Miscellaneous Notes Last Appointment: 02/15/2021 Future Appt: None Requested Prescriptions Pending Prescriptions Disp Refills pravastatin (PRAVACHOL) 40 mg tablet 90 tablet 3 Sig: Take 1 tablet by mouth once daily. Previous labs/tests for medication: Cholesterol: HDL Cholesterol (mg/dL) Date Value 06/09/2020 64 LDL Cholesterol (mg/dL) Date Value 06/09/2020 69 ALT (U/L) Date Value 06/09/2020 10 Non HDL Cholesterol (mg/dL) Date Value 06/09/2020 90 Please advise. Thank you. Quiana Jett RN documented in this encounter [facility] 10-28-2021 History of Presen t illness Narrative Last saw Ousmane Smith 08/17/21 Subjective: Patient presents to clinic c/o painful toenails. They state that the nails are especially painful with shoe gear and pressure. Patient states that nails 1-5 b/l are painful. Patient admits to being diabetic. No other pedal complaints at this time. Patient states no change in medications or medical history since last visit. Objective: Patient presents to clinic ambulating in diabetic shoes Vasc: DP and PT pulses are palpable bilateral. CFT is less than 5 seconds bilateral. Skin temperature is warm to cool proximal to distal bilateral. There is mild edema or varicosities noted. Neuro: Protective sensation is intact to the foot and toes when tested with the 5.07 SWM bilateral. Vibratory sensation is decreased at the hallux IPJ bilateral. The hallux is downgoing bilateral. Derm: Nails 1-5 b/l are painful, discolored-yellow, thick, crumbly, dystrophic and with subungal debris. Skin is of normal turgor, texture and hair growth is present bilateral. There are no hyperkeratosis, ulcerations, scars, verruca or other lesions noted. Ortho: Muscle strength is 5/5 for all pedal groups tested. Ankle joint DF is full with the knee extended with no pain or crepitus noted. 1st MPJ ROM is full bilateral. Assessment: (B35.1) Onychomycosis (primary encounter diagnosis) (M79.674) Pain in toe of right foot (M79.675) Pain in toe of left foot (E11.49) Other diabetic neurological complication associated with type 2 diabetes mellitus (HCC) (M20.42) Hammer toe of left jayesh (I87.2) Venous insufficiency Plan: Patient was seen and evaluated. Nails 1-5 bilateral were debrided in length and thickness. Patient was instructed on the continued importance of diabetic foot care along with proper diet and keeping their blood sugar under control to prevent complications. Compression stockings ordered for lower extremity swelling. Patient is to RTC in 3-4 months. Suzanna Escalante DPM AMB ROOMING INTAKE FLOWSHEET DATA Risk Screening Do you have concerns about personal safety or safety in the home?: No Patient presents with: Left Foot - Established Patient, Diabetic Foot Care Right Foot - Established Patient, Diabetic Foot Care documented in this encounter [facility] 10-28-2021 Instructions Suzanna Escalante - 10/28/2021 1:37 PM EDT Diabetes Foot Care Instructions When you have diabetes, proper foot care is very important. Poor foot care may lead to amputation of a foot or leg. As a person with diabetes, you are more vulnerable to foot problems, because diabetes can damage your nerves and reduce blood flow to your feet. Here are some diabetes foot care tips to follow: Wash and Dry Your Feet Daily Use mild soaps Use warm water Pat your skin dry; do not rub. Thoroughly dry your feet. After washing, use lotion on your feet to prevent cracking. Do not put lotion between your toes. Examine Your Feet Each Day Check the tops and bottoms of your feet. Have someone else look at your feet if you cannot see them. Check for dry, cracked skin. Look for blisters, cuts, scratches, or other sores. Check for redness, increased warmth, or tenderness when touching any area of your feet. Check for ingrown toenails, corns, and calluses. If you get a blister or sore from your shoes, do not pop it. Apply a bandage and wear a different pair of shoes. Take Care of Your Toenails Cut toenails after bathing, when they are soft. Cut toenails straight across and smooth with a nail file. Avoid cutting into the corners of toes. Do not cut cuticles. If you have neuropathy (or decreased sensation in your feet) a sports analyst should always cut your toenails. Be Careful When Exercising Walk and exercise in comfortable shoes. Do not exercise when you have open sores on your feet. Protect Your Feet With Shoes and Socks Never go barefoot. Always protect your feet by wearing shoes or hard-soled slippers or footwear. Avoid shoes with high heels and pointed toes. Avoid shoes that expose your toes or heels (such as open-toed shoes or sandals). These types of shoes increase your risk for injury and potential infections. Try on new footwear with the type of socks you usually wear. Do not wear new shoes for more than an hour at a time. Change your socks daily. Look and feel inside your shoes before putting them on to make sure there are no foreign objects or rough areas. Avoid tight socks. Wear natural-fiber socks (cotton, wool, or a cotton-wool blend). Wear special shoes if your health care provider recommends them. Wear shoes/boots that will protect your feet from various weather conditions (cold, moisture, etc.). Make sure your shoes fit properly. If you have neuropathy (nerve damage), you may not notice that your shoes are too tight. Perform the footwear test described below. Footwear Test Use this simple test to see if your shoes fit correctly: Stand on a piece of paper. (Make sure you are standing and not sitting, because your foot changes shape when you stand.) Trace the outline of your foot. Trace the outline of your shoe. Compare the tracings: Is the shoe too narrow? Is your foot crammed into the shoe? The shoe should be at least 1/2 inch longer than your longest toe and as wide as your foot. Proper Shoe Choices The following types of shoes are best for people with diabetes Closed toes and heels Leather uppers without a seam inside At least 1/2 inch extra space at the end of your longest toe Inside of shoe should be soft with no rough areas Outer sole should be made of stiff material Shoes should be at least as wide as your feet Tips for Foot Care in Diabetes Don't wait to treat a minor foot problem if you have diabetes. Follow your health care provider's guidelines and first aid guidelines. Report foot injuries and infections to your health care provider immediately. Check water temperature with your elbow, not your foot. Do not use a heating pad on your feet. Do not cross your legs. Do not self-treat your corns, calluses, or other foot problems. Go to your health care provider or sports analyst to treat these conditions. documented in this encounter [facility] 10-14-2021 Miscellaneous Notes Okayed Patient calling to check on status of request from yesterday. Asking if message can be sent to Rupal Gabriel for possible review. Patient states I have to have that medicine . Please call patient with update. Thank you. Patient calling and reports having anal leakage since yesterday, which she states she has at times and that Dr. Pearson knows about this. She is requesting a refill of her Flagyl which she states is usually ordered for her when she has this issue. Script pended for review. Please update patient. Thank you. documented in this encounter [facility] 10-14-2021 Miscellaneous Notes They had also asked about Flagyl, but it is already pended in another encounter. Patient has been identified by name and date of : Yes Pharmacy phones for refill(s): Requested Prescriptions Pending Prescriptions Disp Refills insulin glargine (LANTUS SOLOSTAR U-100 INSULIN) 100 unit/mL (3 mL) 5 Pen 4 Sig: Inject 18 Units subcutaneously daily at bedtime AND 2 Units daily at bedtime. Adjust as directed (2 units to prime pen needle. alcohol swabs (SURE-PREP ALCHOLOL PREP PADS) 200 Each 11 Sig: Test blood sugars 4 x's daily. Dx: E11.65 Insulin: Yes ipratropium-albuterol (DUONEB) 0.5 mg-3 mg(2.5 mg base)/3 mL nebu 380 Vial 3 Sig: Inhale 3 mL as instructed four times daily as needed (wheezing). Use over 5-15minutes per nebulizer. Date of last office visit in primary care: 08/17/21 Future visit: none Last 2 Encounter Wt Readings: Date: Wt: 08/09/2021 79.8 kg (176 lb) 08/01/2021 81.4 kg (179 lb 7.3 oz) Previous labs/tests for medication: Diabetes: Hemoglobin A1C (%) Date Value 06/09/2020 8.3 11/14/2017 9.2 Hemoglobin A1C (POCT) (%) Date Value 07/27/2018 8.0 Blood Pressure: BUN (mg/dL) Date Value 08/05/2021 11 06/09/2020 13 Sodium (mmol/L) Date Value 08/05/2021 138 06/09/2020 134 Last 1 Encounter BP Readings: Date: BP: 08/09/2021 122/74 Liver Function: ALT (U/L) Date Value 06/09/2020 10 AST (U/L) Date Value 06/09/2020 13 Please advise. Thank you. Destiny Veloz RN documented in this encounter [facility] 09-03-2021 History of Presen t illness Narrative [facility] CD[facility] Enrollment Provider Action/FYI: Call to Pt left a message related to COPD Chronic Disease Management Enrollment. called back, was not available to talk, he will call [facility] for transportation services for Appt and provided phone number for [facility] if needed. Patient referred by: TCM Contact made with patient: No - 2nd attempt to reach patient, left another message: Hi my name is Mansi Rose RN and I am calling from the [facility] on behalf of your PCP, Tiff Pearson MD. We are excited to share with you a new program to help you manage your health. Please call me back at [phone]. I hope you can take the time to speak with me. (Keep encounter open for additional two business days in case patient calls back. Close encounter if no response by end of second business day) Closing: Could not reach the patient after two attempted outreaches. Transformer Builder to retry patient in one week. END OUTREACH Mansi Rose RN September 03, 2021 4:02 PM [facility] Enrollment Provider Action/FYI: Call to Pt left a message related to COPD Chronic Disease Management Enrollment Patient referred by: TCM Contact made with patient: No - Left Message: Hi my name is Mansi Rose RN and I am calling from the [facility] on behalf of your PCP, Tiff Pearson MD. We are excited to share with you a new program to help you manage your health. Please call me back at [phone] between the hours of 8am-5pm Monday-Monday. You will receive another phone call from me within the next two business days. I hope you can take the time to speak with me. (Keep encounter open and attempt 2nd outreach in two business days from today) END OUTREACH Mansi Rose RN September 02, 2021 12:37 PM documented in this encounter [facility] 09-01-2021 History of Presen t illness Narrative TRANSITION CARE MANAGEMENT (TCM) FOLLOW-UP NOTE Provider Action/FYI Chart reviewed. Spoke with patient, denies pain, denies sob, no N/V/D, no fever or chills, states she did not follow-up with ophthalmology appts due to not having a ride-lives in [place]. Gave patient number to eye clinic to schedule appt. Order placed for CDM to follow patient for COPD. Patient identified by name and date of : YES Spoke to patient Summary: Pt discharged from [facility] on 08/05/21. Admitted for: right eye pain and redness PMH: diabetes, COPD, dyslipidemia, complex abdominal surgical history, schizophrenia, GERD Transformer Builder plan for next outreach: No further follow up needed at this time Signature Fernanda Yoo, RN September 01, 2021 documented in this encounter [facility] 08-30-2021 Miscellaneous Notes The following approved medication requests have been transmitted electronically. Signed Prescriptions Disp Refills hydrocortisone 2.5 % cream 28 g 2 Sig: Apply 1 application to affected area twice daily as needed. Location: neck (reaction to tape adhesive) May also use for poison tania. Use up to 14 days per episode of rash. NUBIA: No Authorizing Provider: TIFF PEARSON insulin needles, DISPOSABLE, (PEN NEEDLE) 31 gauge x 5/16 150 Each 11 Sig: Use one needle per dose (Lantus and Humalog). 5 per day. NUBIA: No Authorizing Provider: TIFF PEARSON Lancets lancets 100 Each 11 Sig: Test blood sugar(s) 1 times daily and as needed. Dx: Type 2 DM - Uncontrolled E11.65 Insulin: Yes NUBIA: No Authorizing Provider: TIFF PEARSON MD Patient has been identified by name and date of : Yes Pharmacy phones for refill(s): Pending Prescriptions Disp Refills HYDROCORTISONE 2.5 % TOPICAL CREAM 28 g 2 Sig: Apply 1 application to affected area twice daily as needed. Location: neck (reaction to tape adhesive) May also use for poison tania. NUBIA: No PEN NEEDLE, DIABETIC 31 GAUGE X 5/16 150 Each 11 Sig: Use one needle per dose (Lantus and Humalog). 5 per day. NUBIA: No LANCETS 100 Each 11 Sig: Test blood sugar(s) 1 times daily and as needed. Dx: Type 2 DM - Uncontrolled E11.65 Insulin: Yes NUBIA: No Date of last office visit in primary care: 08/17/21 Future visit: none Last 2 Encounter Wt Readings: Date: Wt: 08/09/2021 79.8 kg (176 lb) 08/01/2021 81.4 kg (179 lb 7.3 oz) Previous labs/tests for medication: Diabetes: Hemoglobin A1C (%) Date Value 06/09/2020 8.3 11/14/2017 9.2 Hemoglobin A1C (POCT) (%) Date Value 07/27/2018 8.0 Blood Pressure: BUN (mg/dL) Date Value 08/05/2021 11 06/09/2020 13 Sodium (mmol/L) Date Value 08/05/2021 138 06/09/2020 134 Last 1 Encounter BP Readings: Date: BP: 08/09/2021 122/74 Liver Function: ALT (U/L) Date Value 06/09/2020 10 AST (U/L) Date Value 06/09/2020 13 Please advise. Thank you. Destiny Veloz RN documented in this encounter [facility] 08-23-2021 History of Presen t illness Narrative TRANSITION CARE MANAGEMENT (TCM) FOLLOW-UP NOTE Provider Action/FYI Chart reviewed. Spoke with patient, denies pain, denies sob, tolerating diet, no dizziness/lightheadedness, no N/V/D, states she feels good. Will continue to follow. Patient identified by name and date of : YES Spoke to patient Summary: Pt discharged from [facility] on 08[facility]. Admitted for: right eye pain and redness PMH: diabetes, COPD, dyslipidemia, complex abdominal surgical history, schizophrenia, GERD Transformer Builder plan for next outreach: Will continue to follow. Signature Tamela Yoo RN, BSN, [facility] Derrick Follower [facility] Hub August 23, 2021 documented in this encounter [facility] 08-18-2021 Miscellaneous Notes Pt notified and voiced understanding. Zenaida Donnelly Ma ----- Message from Ousmane Smith APRN.MEDICAL RECORDS CUSTODIAN sent at 08/17/2021 4:16 PM EDT ----- Please inform the patient that her chest x-ray was normal, no evidence of pneumonia. Ousmane Smith CNP documented in this encounter [facility] 08-17-2021 History of Presen t illness Narrative Telemedicine Visit - Distance Health Virtual Visit Note Patient seen on Telephone platform due to lack of power at facility or power at the patient's residence. Patient stating a tree is in their driveway. Location of patient: [place] Tiff Pearson MD History of Present Illness Christopher Hobson is a 60 year old year old female who presents for follow up. Patient presented to the medical center on 08/09/2021 for 3 days of cough, Sore throat, runny nose. Also had a low grade fever. Had negative flu/covid testing. He was given 7 days of doxycyline and tessalon pearls which concluded yesterday. At this time, the cough is continuing to be present. It is wet/moist. No fevers or chills. She no longer has a headache. No more sore throat. No chest pain, shortness of breath or syncope. Patient does have multiple allergies to antibiotics. 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 Secondary to E.coli bactremia -- continue norepinephrine and vasopressin to maintain MAP 65 Lunate fracture, closed 11/22/2012 MALIGNANT NEOPLASM COLON NOS(aka COLON) 10/09/2003 Ostomy in LLQ since surgical intervention in 2004 per pt Reviewed eval with Dr. 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 Diabetes on metformin Pain in limb 02/05/2010 Paranoid schizophrenia, chronic condition ([facility]) 1985 Peptic ulcer, unspecified site, unspecified as acute or chronic, without mention of hemorrhage, perforation, or obstruction 10/11/2004 Personal history of colonic polyps 2000 Physical deconditioning 03/14/2015 Due to prolonged ICU stay -- PT/OT consulted -- lift OOB today with lift team Post-op pain 02/25/2015 Fentanyl PRN Postoperative anemia due to acute blood loss 02/25/2015 Hgb 8.8 today, no active bleeding Last transfused 03/14 -- follow daily CBC and coags S/P colostomy ([facility]) SBO (small bowel obstruction) ([facility]) 09/11/2016 Skin lesion 03/09/2015 Skin sloughing on LEs with blisters, indeterminate purple lesions on back -> now improving Per Dermatology consult: linear erosions are most likely irritant contact dermatitis or pressure induced erosions. In addition there are small edema bullae on the abdominal wall Both require gentle wound care and emollients such as aquaphor or petroleum jelly -- monitor Tracheostomy in place ([facility]) Placed 2015 after prolonged respiratory failure, unable to liberate from vent. Unspecified migraine 1998 Ventral hernia with bowel obstruction 09/10/2016 Added automatically from request for surgery [id number] VRE bacteremia 09/29/2016 PAST SURGICAL HISTORY Procedure Laterality Date ANESTH,VAGINAL DELIVERY 1977,1979,1985, 1986 w/ episiotomies APPENDECTOMY DILATION & CURETTAGE DX&/THER NONOBSTETRIC 1977 Dilation & curettage INDUCED DILATION AND CURETTAGE LIG/TRNSXJ FLP TUBE ABDL/VAG APPR UNI/BI Tubal ligation NEUROPLASTY &/TRANSPOS MEDIAN NRV CARPAL TUNNE 2006 Carpal tunnel decomp right NEUROPLASTY &/TRANSPOS MEDIAN NRV CARPAL TUNNE Carpal tunnel decomp left PAST SURGICAL HISTORY OF 2004 Abdominal surgeries for hernia repairs PAST SURGICAL HISTORY OF 2008 Ileostomy PAST SURGICAL HISTORY OF 09/12/2016 Underwent ex lap, takedown of prior ostomy, RONEY and creation of new end ileostomy on 09/12/16 for parastomal hernia with closed loop hernia PAST SURGICAL HISTORY OF 09/28/2016 Permanent Pacemaker Placement for complete heart block REDUCE BOWEL OBSTRUCTION Late February 2015 acute bowel obstruction. SB resection. REVJ COLOSTOMY COMP RCNSTJ IN-DEPTH SPX 2000 3-4 surgeries TONSILLECTOMY PRIMARY/SECONDARY AGE 10/> TRACHEOSTOMY HX 03/12/2015 protracted critical stay, failure to wean after bowel obtruction FAMILY HISTORY Problem Relation Age of Onset other (Pneumonia) Mother Heart Father Thyroid Daughter Thyroid Daughter Asthma No Family History Cancer No Family History No lung cancer. COPD No Family History Social History Tobacco Use Smoking status: Former Smoker Packs/day: 2.00 Years: 45.00 Pack years: 90.00 Types: Cigarettes Start date: 1965 Quit date: 08/27/2010 Years since quittin.9 Smokeless tobacco: Never Used Vaping Use Vaping Use: Never used Substance Use Topics Alcohol use: No Drug use: Yes Comment: Cocaine abuse, quit before 1999. Current Outpatient Medications Medication Sig Nebulizer and Compressor For Neb 1 Each as needed (Use as directed for treatment of asthma). Nebul[place] [facility] [place] new nebulizer mask, hose and supplies. (J45.20) Intermittent asthma without complication ipratropium-albuterol (DUONEB) 0.5 mg-3 mg(2.5 mg base)/3 mL nebu Inhale 3 mL as instructed four times daily as needed (wheezing). Use over 5-15minutes per nebulizer. benzonatate (TESSALON PERLES) 100 mg capsule Take 1-2 capsules by mouth three times daily as needed. prednisoLONE acetate (PRED FORTE) 1 % ophthalmic suspension Use 1 Drop in the right eye four times daily. blood sugar diagnostic (TRUE METRIX GLUCOSE TEST STRIP) test strip Check blood sugar 4 times daily. DX: E11.65. Insulin : yes vancomycin 25 mg/mL ophthalmic drops ([facility]) Use 1 Drop in the right eye every 2 hours. cefTAZidime ophthalmic solution 2.5% (25 mg/mL) (IP-CPD) Use 1 Drop in the right eye every 4 hours while awake. hydrocortisone 2.5 % cream Apply 1 application to affected area twice daily as needed. Location: neck (reaction to tape adhesive) May also use for poison tania. albuterol HFA (PROVENTIL HFA, VENTOLIN HFA) 90 mcg/actuation inhaler Inhale 2 Puffs as instructed every 4 hours as needed. magnesium oxide (MAG-OX) 400 mg (241.3 mg magnesium) tablet Take 1 tablet by mouth once daily. Blood-Glucose Meter (TRUE METRIX GLUCOSE METER) Testing one time daily and as needed DX E11.65 Insulin YES omeprazole (PRILOSEC) 20 mg capsule Take 1 capsule by mouth daily before breakfast. 1/2 hr before meal. glimepiride (AMARYL) 4 mg tablet Take 1 tablet by mouth daily with breakfast. Patient may take an extra half pill once a day for blood sugars over 200. Lidocaine-Hydrocortisone Ac 3-0.5 % crea by RECTAL route twice daily for 14 days. miconazole (CADENCE ANTIFUNGAL) 2 % cream Apply 1 application to affected area twice daily. To perirectal and buttocks area guaiFENesin (MUCINEX) 600 mg 12 hr tablet Take 2 tablets by mouth twice daily. pravastatin (PRAVACHOL) 40 mg tablet Take 1 tablet by mouth once daily. insulin glargine (LANTUS SOLOSTAR U-100 INSULIN) 100 unit/mL (3 mL) Inject 18 Units subcutaneously daily at bedtime AND 2 Units daily at bedtime. Adjust as directed (2 units to prime pen needle. triamcinolone acetonide (KENALOG) 0.1 % cream Apply 1 application to affected area three times daily. Apply sparingly to area for rash/itching till rash resolves. For contact dermatitis alcohol swabs (SURE-PREP ALCHOLOL PREP PADS) Test blood sugars 4 x's daily. Dx: E11.65 Insulin: Yes insulin needles, DISPOSABLE, (PEN NEEDLE) 31 gauge x 16 Use one needle per dose (Lantus and Humalog). 5 per day. Blood-Glucose Meter (ONETOUCH VERIO METER) Test blood sugar 4 times daily. Dx: Type 2 DM. Uncontrolled . Insulin: yes. blood sugar diagnostic (ONETOUCH VERIO TEST STRIPS) test strip Test blood sugar 4 times daily. Dx: Type 2 DM. Uncontrolled . Insulin: yes Lancets (ONETOUCH ULTRASOFT LANCETS) lancets Test blood sugar(s) 4 times daily. Dx: Type 2 DM - Uncontrolled , Insulin: Yes Zinc Oxide 40 % oint Apply to affected area as needed. Lancets lancets Test blood sugar(s) 1 times daily and as needed. Dx: Type 2 DM - Uncontrolled Insulin: Yes ketoconazole (NIZORAL) 2 % cream Apply 1 application to affected area once daily. as needed Ostomy Supplies (ADHESIVE REMOVER WIPES) swab All Care brand. Use as directed fluPHENAZine (PROLIXIN) 1 mg tablet Take 3 mg by mouth once daily. blood sugar diagnostic (BLOOD GLUCOSE TEST) test strip Test blood sugar(s) 1 times daily and as needed. Dx: Type 2 DM - Uncontrolled Insulin: Yes blood sugar diagnostic (BLOOD GLUCOSE TEST) test strip Test blood sugar(s) 4 times daily and as needed as directed. Dx: Type 2 DM - Uncontrolled Insulin: Yes Nebulizer Accessories [facility] [place]eds new nebulizer mask, hose and supplies. (J45.20) Intermittent asthma without complication phenazopyridine (PYRIDIUM) 100 mg tablet Take 1 tablet by mouth three times daily as needed. Nebulizer New (not refurbished) NEBULIZER FOR HOME USE with Duoneb 4 x a day. DX: J45.909, Z87.09. Lifetime supplies of mask/tubing, patient has tracheostomy. tapentadol (NUCYNTA) 75 mg tab Taking 1 twice a day per Dr Trevizo. Earliest Fill Date: 01/24/18 blood sugar diagnostic (FREESTYLE INSULINX) test strip Test blood sugar(s) 4 times daily and as needed. Dx: Type 2 DM - Uncontrolled Insulin: Yes Adhesive Tape (DURAPORE SURGICAL) 2 X 10 -yard tape Use for dressings for healing tracheostomy site. traZODone (DESYREL) 100 mg tablet Take 3 tablets by mouth daily at bedtime. ([facility] topiramate (TOPAMAX) 100 mg tablet Take 1 tablet by mouth once daily. Per psychiatrist (Patient taking differently: Take 100 mg by mouth three times daily. Per psychiatrist ) melatonin 3 mg Take 2 tablets by mouth daily at bedtime. (Patient taking differently: Take 10 mg by mouth daily at bedtime. ) VRAYLAR 3 mg cap Take 3 mg by mouth daily at bedtime. white petrolatum-mineral oil (EUCERIN) cream Apply 1 application to affected area as needed for Dry Skin (all dry skin areas). No current facility-administered medications for this visit. ALLERGIES Allergen Reactions Goss Other: See Comments Tongue blisters Lemon Other: See Comments Tongue blisters. Pears Unknown Cephalosporins itching Ciprofloxacin Anaphylaxis It was used with flagyl at the same time so uknown which is the cause Codeine rash swelling Diclofenac rash Dilaudid [Hydromorp* Itching Lipitor [Atorvastat* Itching Lyrica [Pregabalin] Swelling Opioids - Morphine * rash Penicillins Anaphylaxis ?anaphylaxis, patient tolerates zosyn Percocet [Oxycodone* Itching Soap Vicodin [Hydrocodon* Rash Zithromax [Azithrom* Rash Telephone Encounter General appearance: Alert, oriented, pleasant, in NAD :Yes Respiratory: Patient speaking in full sentences. No audibile wheezing. A harsh cough is present. ASSESSMENT/PLAN: 1. Sinobronchitis - ICD9: 473.9, 490, ICD10: J32.9, J40 - Supportive care with plenty of fluids, rest, and analgesia prn. - Extend doxycycline 5 days due to multiple allergies to other respiratory antibiotics. Check chest xray. Push fluids. - DOXYCYCLINE HYCLATE 100 MG TABLET - XR CHEST 2V FRONTAL/LAT PLAN: - Red flags discussed for need for in person care - All questions answered I spent a total of 20 minutes on the date of the service which included preparing to see the patient, completing clinical documentation, obtaining and/or reviewing separately obtained history, counseling and educating the patient/family/caregiver and ordering medications, tests, or procedures. Ousmane Smith APRN.MEDICAL RECORDS CUSTODIAN If you let us know who your primary care provider is, we will send them a notification of today's visit through our electronic medical records system. Since not all providers have access to our notifications, we strongly encourage you to share the following record of today's visit with your primary care provider at your next visit. This will help in providing you the best care. If you do not have an established Primary Care physician and would like to continue care with a [facility] Virtual Primary Care physician, please ask your provider to place a Establish Primary Care order. Use [employer] to manage your care, wherever you are, 26/09, on your mobile device or computer. [employer] connects you to [employer] so you can access all your health information in one place and also schedule and request virtual appointments with primary care providers. documented in this encounter [facility] 08-16-2021 Miscellaneous Notes Order faxed, patient notified Filed order Pt called and states where she was living before ants got into her nebulizer and destroyed it. Requesting a new nebulizer to be sent to [facility]. Pt has the solution and supplies. documented in this encounter [facility] 08-10-2021 Miscellaneous Notes Patient notified of results. Patient verbalizes understanding. Quiana eJtt RN Left message for patient with results.Ariane Asencio LPN Negative for covid and flu please notify thank you documented in this encounter [facility] 08-09-2021 History of Presen t illness Narrative 08/09/2021 Patient presents with: Cough: fever, chills, runnynose, KAY, body aches x3 days SUBJECTIVE: This is a 60 year old that is here today for Complaint(s) of cough and rhinorrhea x 3 days. Having a KAY and body aches associated. Having some SOB and wheezing. PMH asthma and questionable COPD. She has a nebulizer at home, but tells me she cannot use hers because it was ruined by ants crawling into the machine. Denies fever/chills, chest pain, vomiting, diarrhea. She was at [facility] ED for eye infection, states she got sick after being in ER. Treated for eye infection. 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 Secondary to E.coli bactremia -- continue norepinephrine and vasopressin to maintain MAP 65 Lunate fracture, closed 11/22/2012 MALIGNANT NEOPLASM COLON NOS(aka COLON) 10/09/2003 Ostomy in LLQ since surgical intervention in 2004 per pt Reviewed eval with Dr. 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 Diabetes on metformin Pain in limb 02/05/2010 Paranoid schizophrenia, chronic condition ([facility]) 1985 Peptic ulcer, unspecified site, unspecified as acute or chronic, without mention of hemorrhage, perforation, or obstruction 10/11/2004 Personal history of colonic polyps 2000 Physical deconditioning 03/14/2015 Due to prolonged ICU stay -- PT/OT consulted -- lift OOB today with lift team Post-op pain 02/25/2015 Fentanyl PRN Postoperative anemia due to acute blood loss 02/25/2015 Hgb 8.8 today, no active bleeding Last transfused 03/14 -- follow daily CBC and coags S/P colostomy ([facility]) SBO (small bowel obstruction) ([facility]) 09/11/2016 Skin lesion 03/09/2015 Skin sloughing on LEs with blisters, indeterminate purple lesions on back -> now improving Per Dermatology consult: linear erosions are most likely irritant contact dermatitis or pressure induced erosions. In addition there are small edema bullae on the abdominal wall Both require gentle wound care and emollients such as aquaphor or petroleum jelly -- monitor Tracheostomy in place ([facility]) Placed 2015 after prolonged respiratory failure, unable to liberate from vent. Unspecified migraine 1998 Ventral hernia with bowel obstruction 09/10/2016 Added automatically from request for surgery [id number] VRE bacteremia 09/29/2016 ALLERGIES Goss, Lemon, Pears, Cephalosporins, Ciprofloxacin, Codeine, Diclofenac, Dilaudid [Hydromorphone (Bulk)], Lipitor [Atorvastatin Calcium], Lyrica [Pregabalin], Opioids - Morphine Analogues, Penicillins, Percocet [Oxycodone-Acetaminophen], Soap, Vicodin [Hydrocodone-Acetaminophen], and Zithromax [Azithromycin] MEDICATIONS Current Outpatient Medications Medication Sig prednisoLONE acetate (PRED FORTE) 1 % ophthalmic suspension Use 1 Drop in the right eye four times daily. cephALEXin (KEFLEX) 500 mg capsule Take 1 capsule by mouth four times daily for 7 days. (Patient not taking: Reported on 08/06/2021 ) blood sugar diagnostic (TRUE METRIX GLUCOSE TEST STRIP) test strip Check blood sugar 4 times daily. DX: E11.65. Insulin : yes vancomycin 25 mg/mL ophthalmic drops ([facility]) Use 1 Drop in the right eye every 2 hours. cefTAZidime ophthalmic solution 2.5% (25 mg/mL) (IP-CPD) Use 1 Drop in the right eye every 4 hours while awake. hydrocortisone 2.5 % cream Apply 1 application to affected area twice daily as needed. Location: neck (reaction to tape adhesive) May also use for poison tania. albuterol HFA (PROVENTIL HFA, VENTOLIN HFA) 90 mcg/actuation inhaler Inhale 2 Puffs as instructed every 4 hours as needed. Nebulizer and Compressor For Neb 1 Each as needed (Use as directed for treatment of asthma). Nebulizer Accessories [facility] [place]eds new nebulizer mask, hose and supplies. (J45.20) Intermittent asthma without complication magnesium oxide (MAG-OX) 400 mg (241.3 mg magnesium) tablet Take 1 tablet by mouth once daily. Blood-Glucose Meter (TRUE METRIX GLUCOSE METER) Testing one time daily and as needed DX E11.65 Insulin YES omeprazole (PRILOSEC) 20 mg capsule Take 1 capsule by mouth daily before breakfast. 1/2 hr before meal. glimepiride (AMARYL) 4 mg tablet Take 1 tablet by mouth daily with breakfast. Patient may take an extra half pill once a day for blood sugars over 200. Lidocaine-Hydrocortisone Ac 3-0.5 % crea by RECTAL route twice daily for 14 days. miconazole (CADENCE ANTIFUNGAL) 2 % cream Apply 1 application to affected area twice daily. To perirectal and buttocks area guaiFENesin (MUCINEX) 600 mg 12 hr tablet Take 2 tablets by mouth twice daily. pravastatin (PRAVACHOL) 40 mg tablet Take 1 tablet by mouth once daily. insulin glargine (LANTUS SOLOSTAR U-100 INSULIN) 100 unit/mL (3 mL) Inject 18 Units subcutaneously daily at bedtime AND 2 Units daily at bedtime. Adjust as directed (2 units to prime pen needle. triamcinolone acetonide (KENALOG) 0.1 % cream Apply 1 application to affected area three times daily. Apply sparingly to area for rash/itching till rash resolves. For contact dermatitis ipratropium-albuterol (DUONEB) 0.5 mg-3 mg(2.5 mg base)/3 mL nebu Inhale 3 mL as instructed four times daily as needed (wheezing). Use over 5-15minutes per nebulizer. alcohol swabs (SURE-PREP ALCHOLOL PREP PADS) Test blood sugars 4 x's daily. Dx: E11 Insulin: Yes insulin needles, DISPOSABLE, (PEN NEEDLE) 31 gauge x 5/16 Use one needle per dose (Lantus and Humalog). 5 per day. Blood-Glucose Meter (ONETOUCH VERIO METER) Test blood sugar 4 times daily. Dx: Type 2 DM. Uncontrolled . Insulin: yes. blood sugar diagnostic (ONETOUCH VERIO TEST STRIPS) test strip Test blood sugar 4 times daily. Dx: Type 2 DM. Uncontrolled . Insulin: yes Lancets (ONETOUCH ULTRASOFT LANCETS) lancets Test blood sugar(s) 4 times daily. Dx: Type 2 DM - Uncontrolled , Insulin: Yes Zinc Oxide 40 % oint Apply to affected area as needed. Lancets lancets Test blood sugar(s) 1 times daily and as needed. Dx: Type 2 DM - Uncontrolled Insulin: Yes ketoconazole (NIZORAL) 2 % cream Apply 1 application to affected area once daily. as needed Ostomy Supplies (ADHESIVE REMOVER WIPES) swab All Care brand. Use as directed fluPHENAZine (PROLIXIN) 1 mg tablet Take 3 mg by mouth once daily. blood sugar diagnostic (BLOOD GLUCOSE TEST) test strip Test blood sugar(s) 1 times daily and as needed. Dx: Type 2 DM - Uncontrolled Insulin: Yes blood sugar diagnostic (BLOOD GLUCOSE TEST) test strip Test blood sugar(s) 4 times daily and as needed as directed. Dx: Type 2 DM - Uncontrolled Insulin: Yes Nebulizer Accessories [facility] [place]eds new nebulizer mask, hose and supplies. (J45.20) Intermittent asthma without complication phenazopyridine (PYRIDIUM) 100 mg tablet Take 1 tablet by mouth three times daily as needed. Nebulizer New (not refurbished) NEBULIZER FOR HOME USE with Duoneb 4 x a day. DX: J45.909, Z87.09. Lifetime supplies of mask/tubing, patient has tracheostomy. tapentadol (NUCYNTA) 75 mg tab Taking 1 twice a day per Dr Trevizo. Earliest Fill Date: 01/24/18 blood sugar diagnostic (FREESTYLE INSULINX) test strip Test blood sugar(s) 4 times daily and as needed. Dx: Type 2 DM - Uncontrolled E11.65 Insulin: Yes Adhesive Tape (DURAPORE SURGICAL) 2 X 10 -yard tape Use for dressings for healing tracheostomy site. traZODone (DESYREL) 100 mg tablet Take 3 tablets by mouth daily at bedtime. ([facility]) topiramate (TOPAMAX) 100 mg tablet Take 1 tablet by mouth once daily. Per psychiatrist (Patient taking differently: Take 100 mg by mouth three times daily. Per psychiatrist ) melatonin 3 mg Take 2 tablets by mouth daily at bedtime. (Patient taking differently: Take 10 mg by mouth daily at bedtime. ) VRAYLAR 3 mg cap Take 3 mg by mouth daily at bedtime. white petrolatum-mineral oil (EUCERIN) cream Apply 1 application to affected area as needed for Dry Skin (all dry skin areas). No current facility-administered medications for this visit. SOCIAL HISTORY Social History Tobacco Use Smoking status: Former Smoker Packs/day: 2.00 Years: 45.00 Pack years: 90.00 Types: Cigarettes Start date: 1965 Quit date: 08/27/2010 Years since quittin.9 Smokeless tobacco: Never Used Vaping Use Vaping Use: Never used Substance Use Topics Alcohol use: No Drug use: Yes Comment: Cocaine abuse, quit before 1999. REVIEW OF SYSTEMS See HPI OBJECTIVE: BP 122/74 Pulse 87 Temp 36.7 C (98.1 F) Resp 20 Wt 79.8 kg (176 lb) SpO2 93% BMI 28.41 kg/m APPEARANCE alert, in no acute distress, well-hydrated, well nourished. EYES PERRLA, conjunctiva and sclera normal. EARS External ears normal, canals clear TMs normal SCOTT NOSE/SINUS Nares normal. Septum midline. Mucosa normal. No drainage or sinus tenderness. THROAT normal, no erythema NECK Supple, + SCOTT anterior cervical adenopathy HEART RRR with normal S1 and S2, LUNG + SCOTT coarse breath sounds with expiratory wheezes. ASSESSMENT/PLAN: 1. Cough - ICD9: 786.2, ICD10: R05.9 (primary diagnosis) Supportive care with fluids and rest R/o COVID. Patient requesting new Rx for nebulizer and duoneb Rx -sent to pharmacy Suspect viral etiology vs CAP - COVID WITH FLUA+B, ROUTINE - NEBULIZER AND COMPRESSOR - NEBULIZER ACCESSORIES MISC - IPRATROPIUM 0.5 MG-ALBUTEROL 3 MG (2.5 MG BASE)/3 ML NEBULIZATION SOLN - DOXYCYCLINE HYCLATE 100 MG TABLET - BENZONATATE 100 MG CAPSULE F/u in 5-7 days if not improving, sooner if worsening Reviewed red flags and when to seek care sooner in ER 2. Intermittent asthma without complication, unspecified asthma severity - ICD9: 493.90, ICD10: J45.20 As above - NEBULIZER AND COMPRESSOR - NEBULIZER ACCESSORIES MISC - IPRATROPIUM 0.5 MG-ALBUTEROL 3 MG (2.5 MG BASE)/3 ML NEBULIZATION SOLN The patient indicates understanding of these issues and agrees with the plan. Nasima Hunter PA-C 08/09/2021 documented in this encounter [facility] 08-06-2021 History of Presen t illness Narrative Bscan 08/03/21 with only anterior vitritis, no retinal pathology Likely spill over from anterior inflammation and not a true endophthalmitis However pt s/p tap/inject 08/01/21 vancomycin and ceftazidime Per cornea, has a very inflammatory corneal ulcer Culture positive childs susceptible MSSA positive Systemic workup without endogenous source, not systemically ill at this point Vitreal Tap 08/01 without growth Can likely be followed by Cornea at this point Refer back to Retina if does not improve At this point does not require more intravitreal antibiotics. Janee ASSESSMENT/PLAN: 1. 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 I have seen and examined Christopher Hobson. I have discussed the case and the management of this patient's care with the Resident/Fellow, if applicable. I also have reviewed and agree with the assessment and plan as stated above and agree with all of its relevant components. Marisol Fry MD documented in this encounter [facility] [facility] 08-06-2021 History of Presen t illness Narrative TRANSITIONAL CARE MANAGEMENT (TCM) COMMUNITY MONITORING PROGRAM Provider Action/FYI: PMH: diabetes, COPD, dyslipidemia, complex abdominal surgical history, schizophrenia, GERD START keflex 500mg QID for 14 days -START vancomycin eye drops every 2 hours until follow up with ophtho/ID -START ceftazidime eye drops every 4 hours until follow up with ophtho/ID Appts: Ophthalmology 08/05/21-ID 08/09/21-PCP 08/27/21 Spoke with patient, states she just was at her eye doctor appt this morning and on her way home, denies chest pain, no sob, no N/V/D, no dizziness/lightheadedness, no fever/chills, tolerating diet SUMMARY: Pt discharged from [facility] on 08/05/21. Admitted for: right eye pain and redness Contact made with patient: Yes Hi my name is Fernanda Yoo RN and I am calling from the [facility] on behalf of your PCP, Tiff Pearson MD I understand you were recently in the hospital so I am calling to check in with you to ensure you are feeling well now that you're home. May I ask you a few questions related to your hospital stay and well-being? Yes Contact with patient post discharge, spoke to patient. Patient identified by name and . Do you feel your health is BETTER, WORSE, or the SAME since leaving the hospital? Better ACTION TAKEN: Patient indicated symptoms are better or same, no action required. Continue outreach. MEDICATIONS: Many patients have questions or concerns about their medications once they are home. Do you have any questions about taking your medications or which medication you should be on? No Do you need any medication refills at this time, including any of the medications you might take only when needed? No ACTION TAKEN: No action required For RNs or Pharmacy completing outreach ONLY, was a medication review completed? Yes SOCIAL: We would like to make sure you have what you need so that your basics needs are met - including your personal safety, food, housing and medications. Would you like to speak with a social work steam conditioner operator to help give you support for any of these needs? No It can be normal to feel anxious or down during a time like this. Would you like to talk to a mental health professional about how you have been feeling? No ACTION TAKEN: No action taken DISCHARGE INTRUCTIONS: Your discharge instructions / After Visit Summary (AVS) are important in guiding you through the recovery process. Do you have any questions related to your discharge instructions? No Do you have all the necessary equipment and supplies at home? Yes ACTION TAKEN: No action required I would like to help you schedule a hospital follow-up virtual or telephone visit with your PCP. This is a great way for you to connect with your provider to ensure you have safely transitioned home. If you are agreeable, I will send your request to a phys therapist who will contact and assist you with that appointment. This will give you an opportunity to ask any questions or address any concerns you may have with your PCP. Inform the patient that if they have any questions or concerns prior to that appointment, to call their PCP's office right away. ACTION TAKEN: No action required, patient already has an appointment scheduled. Your doctor would like us to remind you of the recommendations regarding the coronavirus (Covid19) outbreak: Avoid public places as much as possible. Avoid close contact (within 6 feet) with others you don t live with, especially if they are sick. Stay home if you are sick. Wash your hands regularly for at least 20 seconds with soap and water. Wear a cloth mask in public places to help reduce community spread. Do not go to your Doctor s office unless instructed to do so. For any non-emergency symptoms, call your Doctor s office to get instructions on how to manage (we might recommend a telephone or virtual visit). For emergency symptoms, proceed to Emergency Department as usual but inform them of cough and fever symptoms CHOLO if present (or call on the way if possible). TCM Home Visit Referral Source of Stratification: [facility] Hospital Admission Status: Discharged Readmission Risk Score: 36 KELY Score: 5 Program referral criteria met: Does not meet referral criteria Patient does not qualify for High Risk TCM Home Visit program due to: Does not meet referral criteria Patient does not quality for High Risk TCM Home Visit Program due to: Does not meet referral criteria Preferred contact number: [phone] Is patient staying somewhere other than the listed home address: No Dialysis Patient: No documented in this encounter [facility] 08-06-2021 History of Presen t illness Narrative ASSESSMENT/PLAN: 1. 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 I have seen and examined Christopher Hobson. I have discussed the case and the management of this patient's care with the Resident/Fellow, if applicable. I also have reviewed and agree with the assessment and plan as stated above and agree with all of its relevant components. Marisol Fry MD documented in this encounter [facility] 08-06-2021 History of Presen t illness Narrative TRANSITION CARE MANAGEMENT (TCM) PHARMACY CONTACT Provider Action/FYI: Medication reconciliation services declined due to patient preference. TCM medication reconciliation incomplete at this time Patient's states patient never received keflex which was documented as being delivered to bedside. A [facility] and the patient had to pay $15 for it and it should have been no copay. Offered to reach out to [facility] outpatient pharmacy cashier to see if anything can be done for them. Sent email today to [facility] Stella manning pharmacy managers and beside delivery managers. Patient and her are frustrated with her stay in the hospital and voiced multiple complaints. Directed them to contact [facility] office and offered to give them number and they declined stating that is a joke . Initial contact with patient post discharge, spoke to patient and spouse, ,. Patient identified by name and . Summary: -Pt discharged from [facility] on 08/05/21. -Follow up appointment on 08/27. -Medication review done: Declined at this time per patient preference -Admitted for right eye pain and redness Patient was contacted by telephone, identified for pharmacist care from discharge call list, and gave consent to manage medications related to transitional care management pursuant to the consult agreement with the [facility]. Patient Concerns: - see blue box above. Medication review declined. History of Present Illness: The following content has been copied and pasted from patient's discharge summary. If discharge summary unavailable, After Visit Summary or last pertinent inpatient notes are copied and pasted. REASON FOR HOSPITALIZATION: right eye pain and redness DIAGNOSIS: Principal Problem: Endogenous endophthalmitis POA: Yes Resolved Problems: * No resolved hospital problems. * OPERATIONS DURING HOSPITALIZATION: None PROCEDURES DURING HOSPITALIZATION: CT Abdomen/Pelvis IMPRESSION: Partial colectomy and small bowel resection with multiple intact anastomoses. Midline ventral wall diastases with a mildly inflamed abdominal small bowel loop. No upstream dilation to suggest bowel obstruction. Left lower quadrant spigelian hernia. Interval resolution of multiple LEFT lower quadrant intra-abdominal fluid collections and LEFT lower quadrant subcutaneous gas seen on prior CT. No organized collection amenable to percutaneous drain on today's CT. No other interval change. HOSPITAL COURSE: Christopher Hobson ( ) is a 60 year old White female with a PMHx of diabetes, COPD, dyslipidemia, complex abdominal surgical history, schizophrenia, GERD who presented to for concerns of right eye swelling, visual loss. She was seen by ophthalmology in the ED, with concern for endogenous vs exogenous endophthalmitis. Systemic workup including, urine culture, blood culture, chest-xray, CT abdomen/pelvis, and echo was unremarkable. Eye culture (corneal scraping) grew >15 colonies staph. The patient was started on empiric antibiotics as well as antibiotic eye drops and had improvement in her eye pain and vision. She will be discharged on a course of PO keflex as well as vancomycin and ceftazidime eye drops. She will follow up with ophthalmology and infectious disease to monitor treatment response. Transitions of Care Critical Issues: -START keflex 500mg QID for 14 days -START vancomycin eye drops every 2 hours until follow up with ophtho/ID -START ceftazidime eye drops every 4 hours until follow up with ophtho/ID LABS AND PROCEDURES PENDING AT DISCHARGE: No pending results. Medication Reconciliation: Legend: Stopped, New, Changed, Added to list Medication List Medication Directions Comments Action/Plan Adhesive Tape (DURAPORE SURGICAL) 2 X 10 -yard tape Use for dressings for healing tracheostomy site. albuterol HFA (PROVENTIL HFA, VENTOLIN HFA) 90 mcg/actuation inhaler Inhale 2 Puffs as instructed every 4 hours as needed. on pharmacy dispense records with recent fill hx alcohol swabs (SURE-PREP ALCHOLOL PREP PADS) Test blood sugars 4 x's daily. Dx: E11.65 Insulin: Yes blood sugar diagnostic (BLOOD GLUCOSE TEST) test strip Test blood sugar(s) 4 times daily and as needed as directed. Dx: Type 2 DM - Uncontrolled E11.65 Insulin: Yes duplicate blood sugar diagnostic (BLOOD GLUCOSE TEST) test strip Test blood sugar(s) 1 times daily and as needed. Dx: Type 2 DM - Uncontrolled Insulin: Yes blood sugar diagnostic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 Coli in blood resistant to cipro, ampicillin, and gent (patient with PCN and cephalosporin allergy) CT 1/2 with enteric leak and stable fluid collections Remains afebrile -- continue aztreonam, flagyl, and vanco (levels and dosing per pharmacy) per ID recommendations x 3 weeks thru 04/03 -- COPAT Completed Acute kidney injury 02/28/2015 03/19/2015 Overview: Resolved once sepsis resolved Metabolic acidosis 02/26/2015 03/19/2015 Acute postoperative respiratory insufficiency 07/19/2016 Overview: History of smoking, COPD, asthma Intubated for Exlap 02/23- 02/25, required re-intubation x 2 more times Now status post Tracheostomy by ENT on Mar. Tolerated trach collar x 24 hrs -- continue scheduled Duonebs -- continue trach collar during days -- rest on vent overnight Electrolyte and fluid disorder 02/24/2015 1 Overview: Checking lytes daily and replacing as needed. Class 2 obesity due to exces s calories with body mass index (BMI) of 38.0 to 38.9 in adult 12/18/2007 11/08/2016 Overview: Complicating ventilation, and recovery from surgical procedure Routine general medical exam ination at a health care facility 11/14/2006 02/25/2013 Overview: Empiric Bactrim in 12-11: culture showed mixed maryanne CXR negative in 05-12 Tobacco use disorder 10/11/2004 11/18/2011 Overview: Declined assistance with smoking cessation at this time for cost issues as of 12-11 PFTs 05-12: NL ratio, TLC in the 80% range, NL BONITA/VA (restriction secondary to weight) Started patches in 07-12 Quit documented as of this encounter (statuses as of 06/15/2021) [facility] History of Past illness Narrative* Problem Noted Date Resolved Date Tracheostomy present 07/01/2015 07/24/2017 Electrolyte imbalance 03/12/2015 07/19/2016 Overview: --Monitor electrolytes daily and replacing as indicated -- replaced K, Mg Hypernatremia 03/12/2015 03/19/2015 Overview: Patient given free water and sodium removed from TPN Hypernatremia 03/09/2015 03/14/2015 Overview: Sodium up to 156 over the weekend, now down to 144 with increasing free water -- No sodium or chloride in current bag Hyperbilirubinemia 03/03/2015 03/08/2015 Overview: Mostly conjugated. CT af abd 02/28 w/ fluid around gall bladder, some sludge but no dilation. Improved today. 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 Coli in blood resistant to cipro, ampicillin, and gent (patient with PCN and cephalosporin allergy) CT 1/2 with enteric leak and stable fluid collections Remains afebrile -- continue aztreonam, flagyl, and vanco (levels and dosing per pharmacy) per ID recommendations x 3 weeks thru 04/03 -- COPAT Completed Acute kidney injury 02/28/2015 03/19/2015 Overview: Resolved once sepsis resolved Metabolic acidosis 02/26/2015 03/19/2015 Acute postoperative respiratory insufficiency 07/19/2016 Overview: History of smoking, COPD, asthma Intubated for Exlap 02/23- 02/25, required re-intubation x 2 more times Now status post Tracheostomy by ENT on Mar. Tolerated trach collar x 24 hrs -- continue scheduled Duonebs -- continue trach collar during days -- rest on vent overnight Electrolyte and fluid disorder 02/24/2015 1 Overview: Checking lytes daily and replacing as needed. Class 2 obesity due to exces s calories with body mass index (BMI) of 38.0 to 38.9 in adult 12/18/2007 11/08/2016 Overview: Complicating ventilation, and recovery from surgical procedure Routine general medical exam ination at a health care facility 11/14/2006 02/25/2013 Overview: Empiric Bactrim in 12-11: culture showed mixed maryanne CXR negative in 05-12 Tobacco use disorder 10/11/2004 11/18/2011 Overview: Declined assistance with smoking cessation at this time for cost issues as of 12-11 PFTs 05-12: NL ratio, TLC in the 80% range, NL BONITA/[place] (restriction secondary to weight) Started patches in 07-12 Quit documented as of this encounter (statuses as of 06/17/2021) [facility] History of Past illness Narrative* Problem Noted Date Resolved Date Tracheostomy present 07/01/2015 07/24/2017 Electrolyte imbalance 03/12/2015 07/19/2016 Overview: --Monitor electrolytes daily and replacing as indicated -- replaced K, Mg Hypernatremia 03/12/2015 03/19/2015 Overview: Patient given free water and sodium removed from TPN Hypernatremia 03/09/2015 03/14/2015 Overview: Sodium up to 156 over the weekend, now down to 144 with increasing free water -- No sodium or chloride in current bag Hyperbilirubinemia 03/03/2015 03/08/2015 Overview: Mostly conjugated. CT af abd 02/28 w/ fluid around gall bladder, some sludge but no dilation. Improved today. 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 Coli in blood resistant to cipro, ampicillin, and gent (patient with PCN and cephalosporin allergy) CT 1/2 with enteric leak and stable fluid collections Remains afebrile -- continue aztreonam, flagyl, and vanco (levels and dosing per pharmacy) per ID recommendations x 3 weeks thru 04/03 -- COPAT Completed Acute kidney injury 02/28/2015 03/19/2015 Overview: Resolved once sepsis resolved Metabolic acidosis 02/26/2015 03/19/2015 Acute postoperative respiratory insufficiency 07/19/2016 Overview: History of smoking, COPD, asthma Intubated for Exlap 02/23- 02/25, required re-intubation x 2 more times Now status post Tracheostomy by ENT on Mar. Tolerated trach collar x 24 hrs -- continue scheduled Duonebs -- continue trach collar during days -- rest on vent overnight Electrolyte and fluid disorder 02/24/2015 1 Overview: Checking lytes daily and replacing as needed. Class 2 obesity due to exces s calories with body mass index (BMI) of 38.0 to 38.9 in adult 12/18/2007 11/08/2016 Overview: Complicating ventilation, and recovery from surgical procedure Routine general medical exam ination at a [facility] facility 11/14/2006 02/25/2013 Overview: Empiric Bactrim in 12-11: culture showed mixed maryanne CXR negative in 05-12 Tobacco use disorder 10/11/2004 11/18/2011 Overview: Declined assistance with smoking cessation at this time for cost issues as of 12-11 PFTs 05-12: NL ratio, TLC in the 80% range, NL BONITA/[place] (restriction secondary to weight) Started patches in 07-12 Quit documented as of this encounter (statuses as of 06/24/2021) [facility] History of Past illness Narrative* Problem Noted Date Resolved Date Tracheostomy present 07/01/2015 07/24/2017 Electrolyte imbalance 03/12/2015 07/19/2016 Overview: --Monitor electrolytes daily and replacing as indicated -- replaced K, Mg Hypernatremia 03/12/2015 03/19/2015 Overview: Patient given free water and sodium removed from TPN Hypernatremia 03/09/2015 03/14/2015 Overview: Sodium up to 156 over the weekend, now down to 144 with increasing free water -- No sodium or chloride in current bag Hyperbilirubinemia 03/03/2015 03/08/2015 Overview: Mostly conjugated. CT af abd 02/28 w/ fluid around gall bladder, some sludge but no dilation. Improved today. 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 Coli in blood resistant to cipro, ampicillin, and gent (patient with PCN and cephalosporin allergy) CT 1/2 with enteric leak and stable fluid collections Remains afebrile -- continue aztreonam, flagyl, and vanco (levels and dosing per pharmacy) per ID recommendations x 3 weeks thru 04/03 -- COPAT Completed Acute kidney injury 02/28/2015 03/19/2015 Overview: Resolved once sepsis resolved Metabolic acidosis 02/26/2015 03/19/2015 Acute postoperative respiratory insufficiency 07/19/2016 Overview: History of smoking, COPD, asthma Intubated for Exlap 02/23- 02/25, required re-intubation x 2 more times Now status post Tracheostomy by ENT on Mar. Tolerated trach collar x 24 hrs -- continue scheduled Duonebs -- continue trach collar during days -- rest on vent overnight Electrolyte and fluid disorder 02/24/2015 1 Overview: Checking lytes daily and replacing as needed. Class 2 obesity due to exces s calories with body mass index (BMI) of 38.0 to 38.9 in adult 12/18/2007 11/08/2016 Overview: Complicating ventilation, and recovery from surgical procedure Routine general medical exam ination at a health care facility 11/14/2006 02/25/2013 Overview: Empiric Bactrim in 12-11: culture showed mixed maryanne CXR negative in 05-12 Tobacco use disorder 10/11/2004 11/18/2011 Overview: Declined assistance with smoking cessation at this time for cost issues as of 12-11 PFTs 05-12: NL ratio, TLC in the 80% range, NL BONITA/[place] (restriction secondary to weight) Started patches in 07-12 Quit documented as of this encounter (statuses as of 06/25/2021) [facility] History of Past illness Narrative* Problem Noted Date Resolved Date Tracheostomy present 07/01/2015 07/24/2017 Electrolyte imbalance 03/12/2015 07/19/2016 Overview: --Monitor electrolytes daily and replacing as indicated -- replaced K, Mg Hypernatremia 03/12/2015 03/19/2015 Overview: Patient given free water and sodium removed from TPN Hypernatremia 03/09/2015 03/14/2015 Overview: Sodium up to 156 over the weekend, now down to 144 with increasing free water -- No sodium or chloride in current bag Hyperbilirubinemia 03/03/2015 03/08/2015 Overview: Mostly conjugated. CT af abd 02/28 w/ fluid around gall bladder, some sludge but no dilation. Improved today. 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 Coli in blood resistant to cipro, ampicillin, and gent (patient with PCN and cephalosporin allergy) CT 1/2 with enteric leak and stable fluid collections Remains afebrile -- continue aztreonam, flagyl, and vanco (levels and dosing per pharmacy) per ID recommendations x 3 weeks thru 04/03 -- COPAT Completed Acute kidney injury 02/28/2015 03/19/2015 Overview: Resolved once sepsis resolved Metabolic acidosis 02/26/2015 03/19/2015 Acute postoperative respiratory insufficiency 07/19/2016 Overview: History of smoking, COPD, asthma Intubated for Exlap 02/23- 02/25, required re-intubation x 2 more times Now status post Tracheostomy by ENT on Mar. Tolerated trach collar x 24 hrs -- continue scheduled Duonebs -- continue trach collar during days -- rest on vent overnight Electrolyte and fluid disorder 02/24/2015 1 Overview: Checking lytes daily and replacing as needed. Class 2 obesity due to exces s calories with body mass index (BMI) of 38.0 to 38.9 in adult 12/18/2007 11/08/2016 Overview: Complicating ventilation, and recovery from surgical procedure Routine general medical exam ination at a health care facility 11/14/2006 02/25/2013 Overview: Empiric Bactrim in 12-11: culture showed mixed maryanne CXR negative in 05-12 Tobacco use disorder 10/11/2004 11/18/2011 Overview: Declined assistance with smoking cessation at this time for cost issues as of 12-11 PFTs 05-12: NL ratio, TLC in the 80% range, NL BONITA/[place] (restriction secondary to weight) Started patches in 07-12 Quit documented as of this encounter (statuses as of 06/25/2021) [facility]04-27-2016 History of Past illness Narrative* Problem Noted Date Resolved Date Tracheostomy present 07/01/2015 07/24/2017 Electrolyte imbalance 03/12/2015 07/19/2016 Overview: --Monitor electrolytes daily and replacing as indicated -- replaced K, Mg Hypernatremia 03/12/2015 03/19/2015 Overview: Patient given free water and sodium removed from TPN Hypernatremia 03/09/2015 03/14/2015 Overview: Sodium up to 156 over the weekend, now down to 144 with increasing free water -- No sodium or chloride in current bag Hyperbilirubinemia 03/03/2015 03/08/2015 Overview: Mostly conjugated. CT af abd 02/28 w/ fluid around gall bladder, some sludge but no dilation. Improved today. 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 Coli in blood resistant to cipro, ampicillin, and gent (patient with PCN and cephalosporin allergy) CT 1/2 with enteric leak and stable fluid collections Remains afebrile -- continue aztreonam, flagyl, and vanco (levels and dosing per pharmacy) per ID recommendations x 3 weeks thru 04/03 -- COPAT Completed Acute kidney injury 02/28/2015 03/19/2015 Overview: Resolved once sepsis resolved Metabolic acidosis 02/26/2015 03/19/2015 Acute postoperative respiratory insufficiency 07/19/2016 Overview: History of smoking, COPD, asthma Intubated for Exlap 02/23- 02/25, required re-intubation x 2 more times Now status post Tracheostomy by ENT on Mar. Tolerated trach collar x 24 hrs -- continue scheduled Duonebs -- continue trach collar during days -- rest on vent overnight Electrolyte and fluid disorder 02/24/2015 1 Overview: Checking lytes daily and replacing as needed. Class 2 obesity due to exces s calories with body mass index (BMI) of 38.0 to 38.9 in adult 12/18/2007 11/08/2016 Overview: Complicating ventilation, and recovery from surgical procedure Routine general medical exam ination at a health care facility 11/14/2006 02/25/2013 Overview: Empiric Bactrim in 12-11: culture showed mixed maryanne CXR negative in 05-12 Tobacco use disorder 10/11/2004 11/18/2011 Overview: Declined assistance with smoking cessation at this time for cost issues as of 12-11 PFTs 05-12: NL ratio, TLC in the 80% range, NL BONITA/[place] (restriction secondary to weight) Started patches in 07-12 Quit documented as of this encounter (statuses as of 07/20/2021) [facility]04-27-2016 History of Past illness Narrative* Problem Noted Date Resolved Date Tracheostomy present 07/01/2015 07/24/2017 Electrolyte imbalance 03/12/2015 07/19/2016 Overview: --Monitor electrolytes daily and replacing as indicated -- replaced K, Mg Hypernatremia 03/12/2015 03/19/2015 Overview: Patient given free water and sodium removed from TPN Hypernatremia 03/09/2015 03/14/2015 Overview: Sodium up to 156 over the weekend, now down to 144 with increasing free water -- No sodium or chloride in current bag Hyperbilirubinemia 03/03/2015 03/08/2015 Overview: Mostly conjugated. CT af abd 02/28 w/ fluid around gall bladder, some sludge but no dilation. Improved today. 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 Coli in blood resistant to cipro, ampicillin, and gent (patient with PCN and cephalosporin allergy) CT 1/2 with enteric leak and stable fluid collections Remains afebrile -- continue aztreonam, flagyl, and vanco (levels and dosing per pharmacy) per ID recommendations x 3 weeks thru 04/03 -- COPAT Completed Acute kidney injury 02/28/2015 03/19/2015 Overview: Resolved once sepsis resolved Metabolic acidosis 02/26/2015 03/19/2015 Acute postoperative respiratory insufficiency 07/19/2016 Overview: History of smoking, COPD, asthma Intubated for Exlap 02/23- 02/25, required re-intubation x 2 more times Now status post Tracheostomy by ENT on Mar. Tolerated trach collar x 24 hrs -- continue scheduled Duonebs -- continue trach collar during days -- rest on vent overnight Electrolyte and fluid disorder 02/24/2015 1 Overview: Checking lytes daily and replacing as needed. Class 2 obesity due to exces s calories with body mass index (BMI) of 38.0 to 38.9 in adult 12/18/2007 11/08/2016 Overview: Complicating ventilation, and recovery from surgical procedure Routine general medical exam ination at a health care facility 11/14/2006 02/25/2013 Overview: Empiric Bactrim in 12-11: culture showed mixed maryanne CXR negative in 05-12 Tobacco use disorder 10/11/2004 11/18/2011 Overview: Declined assistance with smoking cessation at this time for cost issues as of 12-11 PFTs 3-09: NL ratio, TLC in the 80% range, NL BONIAT/[place] (restriction secondary to weight) Started patches in 07-12 Quit documented as of this encounter (statuses as of 08/03/2021) [facility]04-27-2016 History of Past illness Narrative* Problem Noted Date Resolved Date Tracheostomy present 07/01/2015 07/24/2017 Electrolyte imbalance 03/12/2015 07/19/2016 Overview: --Monitor electrolytes daily and replacing as indicated -- replaced K, Mg Hypernatremia 03/12/2015 03/19/2015 Overview: Patient given free water and sodium removed from TPN Hypernatremia 03/09/2015 03/14/2015 Overview: Sodium up to 156 over the weekend, now down to 144 with increasing free water -- No sodium or chloride in current bag Hyperbilirubinemia 03/03/2015 03/08/2015 Overview: Mostly conjugated. CT af abd 02/28 w/ fluid around gall bladder, some sludge but no dilation. Improved today. 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 Coli in blood resistant to cipro, ampicillin, and gent (patient with PCN and cephalosporin allergy) CT 1/2 with enteric leak and stable fluid collections Remains afebrile -- continue aztreonam, flagyl, and vanco (levels and dosing per pharmacy) per ID recommendations x 3 weeks thru 04/03 -- COPAT Completed Acute kidney injury 02/28/2015 03/19/2015 Overview: Resolved once sepsis resolved Metabolic acidosis 02/26/2015 03/19/2015 Acute postoperative respiratory insufficiency 07/19/2016 Overview: History of smoking, COPD, asthma Intubated for Exlap 02/23- 02/25, required re-intubation x 2 more times Now status post Tracheostomy by ENT on Mar. Tolerated trach collar x 24 hrs -- continue scheduled Duonebs -- continue trach collar during days -- rest on vent overnight Electrolyte and fluid disorder 02/24/2015 1 Overview: Checking lytes daily and replacing as needed. Class 2 obesity due to exces s calories with body mass index (BMI) of 38.0 to 38.9 in adult 12/18/2007 11/08/2016 Overview: Complicating ventilation, and recovery from surgical procedure Routine general medical exam ination at a [facility] facility 11/14/2006 02/25/2013 Overview: Empiric Bactrim in 12-11: culture showed mixed maryanne CXR negative in 05-12 Tobacco use disorder 10/11/2004 11/18/2011 Overview: Declined assistance with smoking cessation at this time for cost issues as of 12-11 PFTs 05-12: NL ratio, TLC in the 80% range, NL BONITA/[place] (restriction secondary to weight) Started patches in 07-12 Quit documented as of this encounter (statuses as of 08/04/2021) [facility]04-[facility]2016 History of Past illness Narrative* Problem Noted Date Resolved Date Tracheostomy present 07/01/2015 07/24/2017 Electrolyte imbalance 03/12/2015 07/19/2016 Overview: --Monitor electrolytes daily and replacing as indicated -- replaced K, Mg Hypernatremia 03/12/2015 03/19/2015 Overview: Patient given free water and sodium removed from TPN Hypernatremia 03/09/2015 03/14/2015 Overview: Sodium up to 156 over the weekend, now down to 144 with increasing free water -- No sodium or chloride in current bag Hyperbilirubinemia 03/03/2015 03/08/2015 Overview: Mostly conjugated. CT af abd 02/28 w/ fluid around gall bladder, some sludge but no dilation. Improved today. 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 Coli in blood resistant to cipro, ampicillin, and gent (patient with PCN and cephalosporin allergy) CT 1/2 with enteric leak and stable fluid collections Remains afebrile -- continue aztreonam, flagyl, and vanco (levels and dosing per pharmacy) per ID recommendations x 3 weeks thru 04/03 -- COPAT Completed Acute kidney injury 02/28/2015 03/19/2015 Overview: Resolved once sepsis resolved Metabolic acidosis 02/26/2015 03/19/2015 Acute postoperative respiratory insufficiency 07/19/2016 Overview: History of smoking, COPD, asthma Intubated for Exlap 02/23- 02/25, required re-intubation x 2 more times Now status post Tracheostomy by ENT on Mar. Tolerated trach collar x 24 hrs -- continue scheduled Duonebs -- continue trach collar during days -- rest on vent overnight Electrolyte and fluid disorder 02/24/2015 1 Overview: Checking lytes daily and replacing as needed. Class 2 obesity due to exces s calories with body mass index (BMI) of 38.0 to 38.9 in adult 12/18/2007 11/08/2016 Overview: Complicating ventilation, and recovery from surgical procedure Routine general medical exam ination at a health care facility 11/14/2006 02/25/2013 Overview: Empiric Bactrim in 12-11: culture showed mixed maryanne CXR negative in 05-12 Tobacco use disorder 10/11/2004 11/18/2011 Overview: Declined assistance with smoking cessation at this time for cost issues as of 12-11 PFTs 05-12: NL ratio, TLC in the 80% range, NL BONITA/[place] (restriction secondary to weight) Started patches in 07-12 Quit documented as of this encounter (statuses as of 08/06/2021) [facility]04-[facility]2016 History of Past illness Narrative* Problem Noted Date Resolved Date Tracheostomy present 07/01/2015 07/24/2017 Electrolyte imbalance 03/12/2015 07/19/2016 Overview: --Monitor electrolytes daily and replacing as indicated -- replaced K, Mg Hypernatremia 03/12/2015 03/19/2015 Overview: Patient given free water and sodium removed from TPN Hypernatremia 03/09/2015 03/14/2015 Overview: Sodium up to 156 over the weekend, now down to 144 with increasing free water -- No sodium or chloride in current bag Hyperbilirubinemia 03/03/2015 03/08/2015 Overview: Mostly conjugated. CT af abd 02/28 w/ fluid around gall bladder, some sludge but no dilation. Improved today. 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 Coli in blood resistant to cipro, ampicillin, and gent (patient with PCN and cephalosporin allergy) CT 1/2 with enteric leak and stable fluid collections Remains afebrile -- continue aztreonam, flagyl, and vanco (levels and dosing per pharmacy) per ID recommendations x 3 weeks thru 04/03 -- COPAT Completed Acute kidney injury 02/28/2015 03/19/2015 Overview: Resolved once sepsis resolved Metabolic acidosis 02/26/2015 03/19/2015 Acute postoperative respiratory insufficiency 07/19/2016 Overview: History of smoking, COPD, asthma Intubated for Exlap 02/23- 02/25, required re-intubation x 2 more times Now status post Tracheostomy by ENT on Mar.12 Tolerated trach collar x 24 hrs -- continue scheduled Duonebs -- continue trach collar during days -- rest on vent overnight Electrolyte and fluid disorder 02/24/2015 1 Overview: Checking lytes daily and replacing as needed. Class 2 obesity due to exces s calories with body mass index (BMI) of 38.0 to 38.9 in adult 12/18/2007 11/08/2016 Overview: Complicating ventilation, and recovery from surgical procedure Routine general medical exam ination at a health care facility 11/14/2006 02/25/2013 Overview: Empiric Bactrim in 12-11: culture showed mixed maryanne CXR negative in 05-12 Tobacco use disorder 10/11/2004 11/18/2011 Overview: Declined assistance with smoking cessation at this time for cost issues as of 12-11 PFTs 05-12: NL ratio, TLC in the 80% range, NL BONITA/[place] (restriction secondary to weight) Started patches in 07-12 Quit documented as of this encounter (statuses as of 08/06/2021) [facility]04[facility]2016 History of Past illness Narrative* Problem Noted Date Resolved Date Tracheostomy present 07/01/2015 07/24/2017 Electrolyte imbalance 03/12/2015 07/19/2016 Overview: --Monitor electrolytes daily and replacing as indicated -- replaced K, Mg Hypernatremia 03/12/2015 03/19/2015 Overview: Patient given free water and sodium removed from TPN Hypernatremia 03/09/2015 03/14/2015 Overview: Sodium up to 156 over the weekend, now down to 144 with increasing free water -- No sodium or chloride in current bag Hyperbilirubinemia 03/03/2015 03/08/2015 Overview: Mostly conjugated. CT af abd 02/28 w/ fluid around gall bladder, some sludge but no dilation. Improved today. 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 Coli in blood resistant to cipro, ampicillin, and gent (patient with PCN and cephalosporin allergy) CT 1/2 with enteric leak and stable fluid collections Remains afebrile -- continue aztreonam, flagyl, and vanco (levels and dosing per pharmacy) per ID recommendations x 3 weeks thru 04/03 -- COPAT Completed Acute kidney injury 02/28/2015 03/19/2015 Overview: Resolved once sepsis resolved Metabolic acidosis 02/26/2015 03/19/2015 Acute postoperative respiratory insufficiency 07/19/2016 Overview: History of smoking, COPD, asthma Intubated for Exlap 02/23- 02/25, required re-intubation x 2 more times Now status post Tracheostomy by ENT on Mar. Tolerated trach collar x 24 hrs -- continue scheduled Duonebs -- continue trach collar during days -- rest on vent overnight Electrolyte and fluid disorder 02/24/2015 1 Overview: Checking lytes daily and replacing as needed. Class 2 obesity due to exces s calories with body mass index (BMI) of 38.0 to 38.9 in adult 12/18/2007 11/08/2016 Overview: Complicating ventilation, and recovery from surgical procedure [facility] 11/14/2006 02/25/2013 Overview: Empiric Bactrim in 12-11: culture showed mixed maryanne CXR negative in 05-12 Tobacco use disorder 10/11/2004 11/18/2011 Overview: Declined assistance with smoking cessation at this time for cost issues as of 12-11 PFTs 05-12: NL ratio, TLC in the 80% range, NL BONITA/[place] (restriction secondary to weight) Started patches in 07-12 Quit documented as of this encounter (statuses as of 08/06/2021) [facility]04-[facility]2016 History of Past illness Narrative* Problem Noted Date Resolved Date Tracheostomy present 07/01/2015 07/24/2017 Electrolyte imbalance 03/12/2015 07/19/2016 Overview: --Monitor electrolytes daily and replacing as indicated -- replaced K, Mg Hypernatremia 03/12/2015 03/19/2015 Overview: Patient given free water and sodium removed from TPN Hypernatremia 03/09/2015 03/14/2015 Overview: Sodium up to 156 over the weekend, now down to 144 with increasing free water -- No sodium or chloride in current bag Hyperbilirubinemia 03/03/2015 03/08/2015 Overview: Mostly conjugated. CT af abd 02/28 w/ fluid around gall bladder, some sludge but no dilation. Improved today. 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 Coli in blood resistant to cipro, ampicillin, and gent (patient with PCN and cephalosporin allergy) CT 1/2 with enteric leak and stable fluid collections Remains afebrile -- continue aztreonam, flagyl, and vanco (levels and dosing per pharmacy) per ID recommendations x 3 weeks thru 04/03 -- COPAT Completed Acute kidney injury 02/28/2015 03/19/2015 Overview: Resolved once sepsis resolved Metabolic acidosis 02/26/2015 03/19/2015 Acute postoperative respiratory insufficiency 07/19/2016 Overview: History of smoking, COPD, asthma Intubated for Exlap 02/23- 02/25, required re-intubation x 2 more times Now status post Tracheostomy by ENT on Mar. Tolerated trach collar x 24 hrs -- continue scheduled Duonebs -- continue trach collar during days -- rest on vent overnight Electrolyte and fluid disorder 02/24/2015 1 Overview: Checking lytes daily and replacing as needed. Class 2 obesity due to exces s calories with body mass index (BMI) of 38.0 to 38.9 in adult 12/18/2007 11/08/2016 Overview: Complicating ventilation, and recovery from surgical procedure Routine general medical exam ination at a health care facility 11/14/2006 02/25/2013 Overview: Empiric Bactrim in 12-11: culture showed mixed maryanne CXR negative in 05-12 Tobacco use disorder 10/11/2004 11/18/2011 Overview: Declined assistance with smoking cessation at this time for cost issues as of 12-11 PFTs 05-12: NL ratio, TLC in the 80% range, NL BONITA/[place] (restriction secondary to weight) Started patches in 07-12 Quit documented as of this encounter (statuses as of 08/09/2021) [facility]04[facility] History of Past illness Narrative* Problem Noted Date Resolved Date Tracheostomy present 07/01/2015 07/24/2017 Electrolyte imbalance 03/12/2015 07/19/2016 Overview: --Monitor electrolytes daily and replacing as indicated -- replaced K, Mg Hypernatremia 03/12/2015 03/19/2015 Overview: Patient given free water and sodium removed from TPN Hypernatremia 03/09/2015 03/14/2015 Overview: Sodium up to 156 over the weekend, now down to 144 with increasing free water -- No sodium or chloride in current bag Hyperbilirubinemia 03/03/2015 03/08/2015 Overview: Mostly conjugated. CT af abd 02/28 w/ fluid around gall bladder, some sludge but no dilation. Improved today. 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 Coli in blood resistant to cipro, ampicillin, and gent (patient with PCN and cephalosporin allergy) CT 1/2 with enteric leak and stable fluid collections Remains afebrile -- continue aztreonam, flagyl, and vanco (levels and dosing per pharmacy) per ID recommendations x 3 weeks thru 04/03 -- COPAT Completed Acute kidney injury 02/28/2015 03/19/2015 Overview: Resolved once sepsis resolved Metabolic acidosis 02/26/2015 03/19/2015 Acute postoperative respiratory insufficiency 07/19/2016 Overview: History of smoking, COPD, asthma Intubated for Exlap 02/23- 02/25, required re-intubation x 2 more times Now status post Tracheostomy by ENT on Mar. Tolerated trach collar x 24 hrs -- continue scheduled Duonebs -- continue trach collar during days -- rest on vent overnight Electrolyte and fluid disorder 02/24/2015 1 Overview: Checking lytes daily and replacing as needed. Class 2 obesity due to exces s calories with body mass index (BMI) of 38.0 to 38.9 in adult 12/18/2007 11/08/2016 Overview: Complicating ventilation, and recovery from surgical procedure Routine general medical exam ination at a health care facility 11/14/2006 02/25/2013 Overview: Empiric Bactrim in 12-11: culture showed mixed maryanne CXR negative in 05-12 Tobacco use disorder 10/11/2004 11/18/2011 Overview: Declined assistance with smoking cessation at this time for cost issues as of 12-11 PFTs 05-12: NL ratio, TLC in the 80% range, NL BONITA/[place] (restriction secondary to weight) Started patches in 07-12 Quit documented as of this encounter (statuses as of 08/10/2021) [facility]04[facility] History of Past illness Narrative* Problem Noted Date Resolved Date Tracheostomy present 07/01/2015 07/24/2017 Electrolyte imbalance 03/12/2015 07/19/2016 Overview: --Monitor electrolytes daily and replacing as indicated -- replaced K, Mg Hypernatremia 03/12/2015 03/19/2015 Overview: Patient given free water and sodium removed from TPN Hypernatremia 03/09/2015 03/14/2015 Overview: Sodium up to 156 over the weekend, now down to 144 with increasing free water -- No sodium or chloride in current bag Hyperbilirubinemia 03/03/2015 03/08/2015 Overview: Mostly conjugated. CT af abd 02/28 w/ fluid around gall bladder, some sludge but no dilation. Improved today. 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 Coli in blood resistant to cipro, ampicillin, and gent (patient with PCN and cephalosporin allergy) CT 1/2 with enteric leak and stable fluid collections Remains afebrile -- continue aztreonam, flagyl, and vanco (levels and dosing per pharmacy) per ID recommendations x 3 weeks thru 04/03 -- COPAT Completed Acute kidney injury 02/28/2015 03/19/2015 Overview: Resolved once sepsis resolved Metabolic acidosis 02/26/2015 03/19/2015 Acute postoperative respiratory insufficiency 07/19/2016 Overview: History of smoking, COPD, asthma Intubated for Exlap 02/23- 02/25, required re-intubation x 2 more times Now status post Tracheostomy by ENT on Mar. Tolerated trach collar x 24 hrs -- continue scheduled Duonebs -- continue trach collar during days -- rest on vent overnight Electrolyte and fluid disorder 02/24/2015 1 Overview: Checking lytes daily and replacing as needed. Class 2 obesity due to exces s calories with body mass index (BMI) of 38.0 to 38.9 in adult 12/18/2007 11/08/2016 Overview: Complicating ventilation, and recovery from surgical procedure Routine general medical exam ination at a [facility] facility 11/14/2006 02/25/2013 Overview: Empiric Bactrim in 12-11: culture showed mixed maryanne CXR negative in 05-12 Tobacco use disorder 10/11/2004 11/18/2011 Overview: Declined assistance with smoking cessation at this time for cost issues as of 12-11 PFTs 05-12: NL ratio, TLC in the 80% range, NL BON[place] (restriction secondary to weight) Started patches in 07-12 Quit documented as of this encounter (statuses as of 08/16/2021) [facility]04-27-2016 History of Past illness Narrative* Problem Noted Date Resolved Date Tracheostomy present 07/01/2015 07/24/2017 Electrolyte imbalance 03/12/2015 07/19/2016 Overview: --Monitor electrolytes daily and replacing as indicated -- replaced K, Mg Hypernatremia 03/12/2015 03/19/2015 Overview: Patient given free water and sodium removed from TPN Hypernatremia 03/09/2015 03/14/2015 Overview: Sodium up to 156 over the weekend, now down to 144 with increasing free water -- No sodium or chloride in current bag Hyperbilirubinemia 03/03/2015 03/08/2015 Overview: Mostly conjugated. CT af abd 02/28 w/ fluid around gall bladder, some sludge but no dilation. Improved today. 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 Coli in blood resistant to cipro, ampicillin, and gent (patient with PCN and cephalosporin allergy) CT 03/07 with enteric leak and stable fluid collections Remains afebrile -- continue aztreonam, flagyl, and vanco (levels and dosing per pharmacy) per ID recommendations x 3 weeks thru 04/03 -- COPAT Completed Acute kidney injury 02/28/2015 03/19/2015 Overview: Resolved once sepsis resolved Metabolic acidosis 02/26/2015 03/19/2015 Acute postoperative respiratory insufficiency 07/19/2016 Overview: History of smoking, COPD, asthma Intubated for Exlap 02/23- 02/25, required re-intubation x 2 more times Now status post Tracheostomy by ENT on Mar. Tolerated trach collar x 24 hrs -- continue scheduled Duonebs -- continue trach collar during days -- rest on vent overnight Electrolyte and fluid disorder 02/24/2015 1 Overview: Checking lytes daily and replacing as needed. Class 2 obesity due to exces s calories with body mass index (BMI) of 38.0 to 38.9 in adult 12/18/2007 11/08/2016 Overview: Complicating ventilation, and recovery from surgical procedure Routine general medical exam ination at a [facility] facility 11/14/2006 02/25/2013 Overview: Empiric Bactrim in 12-11: culture showed mixed maryanne CXR negative in 05-12 Tobacco use disorder 10/11/2004 11/18/2011 Overview: Declined assistance with smoking cessation at this time for cost issues as of 12-11 PFTs 05-12: NL ratio, TLC in the 80% range, NL B[place] (restriction secondary to weight) Started patches in 07-12 Quit documented as of this encounter (statuses as of 08/17/2021) [facility]04-27-2016 History of Past illness Narrative* Problem Noted Date Resolved Date Tracheostomy present 07/01/2015 07/24/2017 Electrolyte imbalance 03/12/2015 07/19/2016 Overview: --Monitor electrolytes daily and replacing as indicated -- replaced K, Mg Hypernatremia 03/12/2015 03/19/2015 Overview: Patient given free water and sodium removed from TPN Hypernatremia 03/09/2015 03/14/2015 Overview: Sodium up to 156 over the weekend, now down to 144 with increasing free water -- No sodium or chloride in current bag Hyperbilirubinemia 03/03/2015 03/08/2015 Overview: Mostly conjugated. CT af abd 02/28 w/ fluid around gall bladder, some sludge but no dilation. Improved today. 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 Coli in blood resistant to cipro, ampicillin, and gent (patient with PCN and cephalosporin allergy) CT 1/2 with enteric leak and stable fluid collections Remains afebrile -- continue aztreonam, flagyl, and vanco (levels and dosing per pharmacy) per ID recommendations x 3 weeks thru 04/03 -- COPAT Completed Acute kidney injury 02/28/2015 03/19/2015 Overview: Resolved once sepsis resolved Metabolic acidosis 02/26/2015 03/19/2015 Acute postoperative respiratory insufficiency 07/19/2016 Overview: History of smoking, COPD, asthma Intubated for Exlap 02/23- 02/25, required re-intubation x 2 more times Now status post Tracheostomy by ENT on Mar. Tolerated trach collar x 24 hrs -- continue scheduled Duonebs -- continue trach collar during days -- rest on vent overnight Electrolyte and fluid disorder 02/24/2015 1 Overview: Checking lytes daily and replacing as needed. Class 2 obesity due to exces s calories with body mass index (BMI) of 38.0 to 38.9 in adult 12/18/2007 11/08/2016 Overview: Complicating ventilation, and recovery from surgical procedure Routine general medical exam ination at a health care facility 11/14/2006 02/25/2013 Overview: Empiric Bactrim in 12-11: culture showed mixed maryanne CXR negative in 05-12 Tobacco use disorder 10/11/2004 11/18/2011 Overview: Declined assistance with smoking cessation at this time for cost issues as of 12-11 PFTs 05-12: NL ratio, TLC in the 80% range, NL [place] (restriction secondary to weight) Started patches in 07-12 Quit documented as of this encounter (statuses as of 08/18/2021) [facility]04-27-2016 History of Past illness Narrative* Problem Noted Date Resolved Date Tracheostomy present 07/01/2015 07/24/2017 Electrolyte imbalance 03/12/2015 07/19/2016 Overview: --Monitor electrolytes daily and replacing as indicated -- replaced K, Mg Hypernatremia 03/12/2015 03/19/2015 Overview: Patient given free water and sodium removed from TPN Hypernatremia 03/09/2015 03/14/2015 Overview: Sodium up to 156 over the weekend, now down to 144 with increasing free water -- No sodium or chloride in current bag Hyperbilirubinemia 03/03/2015 03/08/2015 Overview: Mostly conjugated. CT af abd 02/28 w/ fluid around gall bladder, some sludge but no dilation. Improved today. 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 Coli in blood resistant to cipro, ampicillin, and gent (patient with PCN and cephalosporin allergy) CT 1/2 with enteric leak and stable fluid collections Remains afebrile -- continue aztreonam, flagyl, and vanco (levels and dosing per pharmacy) per ID recommendations x 3 weeks thru 04/03 -- COPAT Completed Acute kidney injury 02/28/2015 03/19/2015 Overview: Resolved once sepsis resolved Metabolic acidosis 02/26/2015 03/19/2015 Acute postoperative respiratory insufficiency 07/19/2016 Overview: History of smoking, COPD, asthma Intubated for Exlap 02/23- 02/25, required re-intubation x 2 more times Now status post Tracheostomy by ENT on Mar.12 Tolerated trach collar x 24 hrs -- continue scheduled Duonebs -- continue trach collar during days -- rest on vent overnight Electrolyte and fluid disorder 02/24/2015 1 Overview: Checking lytes daily and replacing as needed. Class 2 obesity due to exces s calories with body mass index (BMI) of 38.0 to 38.9 in adult 12/18/2007 11/08/2016 Overview: Complicating ventilation, and recovery from surgical procedure [facility]/2006 02/25/2013 Overview: Empiric Bactrim in 12-11: culture showed mixed maryanne CXR negative in 05-12 Tobacco use disorder 10/11/2004 11/18/2011 Overview: Declined assistance with smoking cessation at this time for cost issues as of 12-11 PFTs 05-12: NL ratio, TLC in the 80% range, NL [place] (restriction secondary to weight) Started patches in 07-12 Quit documented as of this encounter (statuses as of 08/23/2021) [facility]04-27-2016 History of Past illness Narrative* Problem Noted Date Resolved Date Tracheostomy present 07/01/2015 07/24/2017 Electrolyte imbalance 03/12/2015 07/19/2016 Overview: --Monitor electrolytes daily and replacing as indicated -- replaced K, Mg Hypernatremia 03/12/2015 03/19/2015 Overview: Patient given free water and sodium removed from TPN Hypernatremia 03/09/2015 03/14/2015 Overview: Sodium up to 156 over the weekend, now down to 144 with increasing free water -- No sodium or chloride in current bag Hyperbilirubinemia 03/03/2015 03/08/2015 Overview: Mostly conjugated. CT af abd 02/28 w/ fluid around gall bladder, some sludge but no dilation. Improved today. 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 Coli in blood resistant to cipro, ampicillin, and gent (patient with PCN and cephalosporin allergy) CT 1/2 with enteric leak and stable fluid collections Remains afebrile -- continue aztreonam, flagyl, and vanco (levels and dosing per pharmacy) per ID recommendations x 3 weeks thru 04/03 -- COPAT Completed Acute kidney injury 02/28/2015 03/19/2015 Overview: Resolved once sepsis resolved Metabolic acidosis 02/26/2015 03/19/2015 Acute postoperative respiratory insufficiency 07/19/2016 Overview: History of smoking, COPD, asthma Intubated for Exlap 02/23- 02/25, required re-intubation x 2 more times Now status post Tracheostomy by ENT on Mar. Tolerated trach collar x 24 hrs -- continue scheduled Duonebs -- continue trach collar during days -- rest on vent overnight Electrolyte and fluid disorder 02/24/2015 1 Overview: Checking lytes daily and replacing as needed. Class 2 obesity due to exces s calories with body mass index (BMI) of 38.0 to 38.9 in adult 12/18/2007 11/08/2016 Overview: Complicating ventilation, and recovery from surgical procedure Routine general medical exam ination at a health care facility 11/14/2006 02/25/2013 Overview: Empiric Bactrim in 12-11: culture showed mixed maryanne CXR negative in 05-12 Tobacco use disorder 10/11/2004 11/18/2011 Overview: Declined assistance with smoking cessation at this time for cost issues as of 12-11 PFTs 05-12: NL ratio, TLC in the 80% range, NL B[place] (restriction secondary to weight) Started patches in 07-12 Quit documented as of this encounter (statuses as of 08/30/2021) [facility]04-[facility]2016 History of Past illness Narrative* Problem Noted Date Resolved Date Tracheostomy present 07/01/2015 07/24/2017 Electrolyte imbalance 03/12/2015 07/19/2016 Overview: --Monitor electrolytes daily and replacing as indicated -- replaced K, Mg Hypernatremia 03/12/2015 03/19/2015 Overview: Patient given free water and sodium removed from TPN Hypernatremia 03/09/2015 03/14/2015 Overview: Sodium up to 156 over the weekend, now down to 144 with increasing free water -- No sodium or chloride in current bag Hyperbilirubinemia 03/03/2015 03/08/2015 Overview: Mostly conjugated. CT af abd 02/28 w/ fluid around gall bladder, some sludge but no dilation. Improved today. 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 Coli in blood resistant to cipro, ampicillin, and gent (patient with PCN and cephalosporin allergy) CT 1/2 with enteric leak and stable fluid collections Remains afebrile -- continue aztreonam, flagyl, and vanco (levels and dosing per pharmacy) per ID recommendations x 3 weeks thru 04/03 -- COPAT Completed Acute kidney injury 02/28/2015 03/19/2015 Overview: Resolved once sepsis resolved Metabolic acidosis 02/26/2015 03/19/2015 Acute postoperative respiratory insufficiency 07/19/2016 Overview: History of smoking, COPD, asthma Intubated for Exlap 02/23- 02/25, required re-intubation x 2 more times Now status post Tracheostomy by ENT on Mar. Tolerated trach collar x 24 hrs -- continue scheduled Duonebs -- continue trach collar during days -- rest on vent overnight Electrolyte and fluid disorder 02/24/2015 1 Overview: Checking lytes daily and replacing as needed. Class 2 obesity due to exces s calories with body mass index (BMI) of 38.0 to 38.9 in adult 12/18/2007 11/08/2016 Overview: Complicating ventilation, and recovery from surgical procedure Routine general medical exam ination at a health care facility 11/14/2006 02/25/2013 Overview: Empiric Bactrim in 12-11: culture showed mixed maryanne CXR negative in 05-12 Tobacco use disorder 10/11/2004 11/18/2011 Overview: Declined assistance with smoking cessation at this time for cost issues as of 12-11 PFTs 05-12: NL ratio, TLC in the 80% range, NL B[place] (restriction secondary to weight) Started patches in 07-12 Quit documented as of this encounter (statuses as of 09/01/2021) [facility]04-[facility]2016 History of Past illness Narrative* Problem Noted Date Resolved Date Tracheostomy present 07/01/2015 07/24/2017 Electrolyte imbalance 03/12/2015 07/19/2016 Overview: --Monitor electrolytes daily and replacing as indicated -- replaced K, Mg Hypernatremia 03/12/2015 03/19/2015 Overview: Patient given free water and sodium removed from TPN Hypernatremia 03/09/2015 03/14/2015 Overview: Sodium up to 156 over the weekend, now down to 144 with increasing free water -- No sodium or chloride in current bag Hyperbilirubinemia 03/03/2015 03/08/2015 Overview: Mostly conjugated. CT af abd 02/28 w/ fluid around gall bladder, some sludge but no dilation. Improved today. 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 Coli in blood resistant to cipro, ampicillin, and gent (patient with PCN and cephalosporin allergy) CT 1/2 with enteric leak and stable fluid collections Remains afebrile -- continue aztreonam, flagyl, and vanco (levels and dosing per pharmacy) per ID recommendations x 3 weeks thru 04/03 -- COPAT Completed Acute kidney injury 02/28/2015 03/19/2015 Overview: Resolved once sepsis resolved Metabolic acidosis 02/26/2015 03/19/2015 Acute postoperative respiratory insufficiency 07/19/2016 Overview: History of smoking, COPD, asthma Intubated for Exlap 02/23- 02/25, required re-intubation x 2 more times Now status post Tracheostomy by ENT on Mar. Tolerated trach collar x 24 hrs -- continue scheduled Duonebs -- continue trach collar during days -- rest on vent overnight Electrolyte and fluid disorder 02/24/2015 1 Overview: Checking lytes daily and replacing as needed. Class 2 obesity due to exces s calories with body mass index (BMI) of 38.0 to 38.9 in adult 12/18/2007 11/08/2016 Overview: Complicating ventilation, and recovery from surgical procedure [facility]/14/2006 02/25/2013 Overview: Empiric Bactrim in 12-11: culture showed mixed maryanne CXR negative in 05-12 Tobacco use disorder 10/11/2004 11/18/2011 Overview: Declined assistance with smoking cessation at this time for cost issues as of 12-11 PFTs 05-12: NL ratio, TLC in the 80% range, NL B[place] (restriction secondary to weight) Started patches in 07-12 Quit documented as of this encounter (statuses as of 09/03/2021) [facility]04-[facility]2016 History of Past illness Narrative* Problem Noted Date Resolved Date Tracheostomy present 07/01/2015 07/24/2017 Electrolyte imbalance 03/12/2015 07/19/2016 Overview: --Monitor electrolytes daily and replacing as indicated -- replaced K, Mg Hypernatremia 03/12/2015 03/19/2015 Overview: Patient given free water and sodium removed from TPN Hypernatremia 03/09/2015 03/14/2015 Overview: Sodium up to 156 over the weekend, now down to 144 with increasing free water -- No sodium or chloride in current bag Hyperbilirubinemia 03/03/2015 03/08/2015 Overview: Mostly conjugated. CT af abd 02/28 w/ fluid around gall bladder, some sludge but no dilation. Improved today. 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 Coli in blood resistant to cipro, ampicillin, and gent (patient with PCN and cephalosporin allergy) CT 1/2 with enteric leak and stable fluid collections Remains afebrile -- continue aztreonam, flagyl, and vanco (levels and dosing per pharmacy) per ID recommendations x 3 weeks thru 04/03 -- COPAT Completed Acute kidney injury 02/28/2015 03/19/2015 Overview: Resolved once sepsis resolved Metabolic acidosis 02/26/2015 03/19/2015 Acute postoperative respiratory insufficiency 07/19/2016 Overview: History of smoking, COPD, asthma Intubated for Exlap 02/23- 02/25, required re-intubation x 2 more times Now status post Tracheostomy by ENT on Mar. Tolerated trach collar x 24 hrs -- continue scheduled Duonebs -- continue trach collar during days -- rest on vent overnight Electrolyte and fluid disorder 02/24/2015 1 Overview: Checking lytes daily and replacing as needed. Class 2 obesity due to exces s calories with body mass index (BMI) of 38.0 to 38.9 in adult 12/18/2007 11/08/2016 Overview: Complicating ventilation, and recovery from surgical procedure Routine general medical exam ination at a health care facility 11/14/2006 02/25/2013 Overview: Empiric Bactrim in 12-11: culture showed mixed maryanne CXR negative in 05-12 Tobacco use disorder 10/11/2004 11/18/2011 Overview: Declined assistance with smoking cessation at this time for cost issues as of 12-11 PFTs 05-12: NL ratio, TLC in the 80% range, NL B[place] (restriction secondary to weight) Started patches in 07-12 Quit documented as of this encounter (statuses as of 09/06/2021) [facility]04[facility]2016 History of Past illness Narrative* Problem Noted Date Resolved Date Tracheostomy present 07/01/2015 07/24/2017 Electrolyte imbalance 03/12/2015 07/19/2016 Overview: --Monitor electrolytes daily and replacing as indicated -- replaced K, Mg Hypernatremia 03/12/2015 03/19/2015 Overview: Patient given free water and sodium removed from TPN Hypernatremia 03/09/2015 03/14/2015 Overview: Sodium up to 156 over the weekend, now down to 144 with increasing free water -- No sodium or chloride in current bag Hyperbilirubinemia 03/03/2015 03/08/2015 Overview: Mostly conjugated. CT af abd 02/28 w/ fluid around gall bladder, some sludge but no dilation. Improved today. 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 Coli in blood resistant to cipro, ampicillin, and gent (patient with PCN and cephalosporin allergy) CT 1/2 with enteric leak and stable fluid collections Remains afebrile -- continue aztreonam, flagyl, and vanco (levels and dosing per pharmacy) per ID recommendations x 3 weeks thru 04/03 -- COPAT Completed Acute kidney injury 02/28/2015 03/19/2015 Overview: Resolved once sepsis resolved Metabolic acidosis 02/26/2015 03/19/2015 Acute postoperative respiratory insufficiency 07/19/2016 Overview: History of smoking, COPD, asthma Intubated for Exlap 02/23- 02/25, required re-intubation x 2 more times Now status post Tracheostomy by ENT on Mar.12 Tolerated trach collar x 24 hrs -- continue scheduled Duonebs -- continue trach collar during days -- rest on vent overnight Electrolyte and fluid disorder 02/24/2015 1 Overview: Checking lytes daily and replacing as needed. Class 2 obesity due to exces s calories with body mass index (BMI) of 38.0 to 38.9 in adult 12/18/2007 11/08/2016 Overview: Complicating ventilation, and recovery from surgical procedure [facility]ine [facility] 11/14/2006 02/25/2013 Overview: Empiric Bactrim in 12-11: culture showed mixed maryanne CXR negative in 05-12 Tobacco use disorder 10/11/2004 11/18/2011 Overview: Declined assistance with smoking cessation at this time for cost issues as of 12-11 PFTs 05-12: NL ratio, TLC in the 80% range, NL BONITA/[place] (restriction secondary to weight) Started patches in 07-12 Quit documented as of this encounter (statuses as of 10/14/2021) [facility]04-27-2016 History of Past illness Narrative* Problem Noted Date Resolved Date Tracheostomy present 07/01/2015 07/24/2017 Electrolyte imbalance 03/12/2015 07/19/2016 Overview: --Monitor electrolytes daily and replacing as indicated -- replaced K, Mg Hypernatremia 03/12/2015 03/19/2015 Overview: Patient given free water and sodium removed from TPN Hypernatremia 03/09/2015 03/14/2015 Overview: Sodium up to 156 over the weekend, now down to 144 with increasing free water -- No sodium or chloride in current bag Hyperbilirubinemia 03/03/2015 03/08/2015 Overview: Mostly conjugated. CT af abd 02/28 w/ fluid around gall bladder, some sludge but no dilation. Improved today. 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 Coli in blood resistant to cipro, ampicillin, and gent (patient with PCN and cephalosporin allergy) CT 1/2 with enteric leak and stable fluid collections Remains afebrile -- continue aztreonam, flagyl, and vanco (levels and dosing per pharmacy) per ID recommendations x 3 weeks thru 04/03 -- COPAT Completed Acute kidney injury 02/28/2015 03/19/2015 Overview: Resolved once sepsis resolved Metabolic acidosis 02/26/2015 03/19/2015 Acute postoperative respiratory insufficiency 07/19/2016 Overview: History of smoking, COPD, asthma Intubated for Exlap 02/23- 02/25, required re-intubation x 2 more times Now status post Tracheostomy by ENT on Mar. Tolerated trach collar x 24 hrs -- continue scheduled Duonebs -- continue trach collar during days -- rest on vent overnight Electrolyte and fluid disorder 02/24/2015 1 Overview: Checking lytes daily and replacing as needed. Class 2 obesity due to exces s calories with body mass index (BMI) of 38.0 to 38.9 in adult 12/18/2007 11/08/2016 Overview: Complicating ventilation, and recovery from surgical procedure Routine general medical exam ination at a health care facility 11/14/2006 02/25/2013 Overview: Empiric Bactrim in 12-11: culture showed mixed maryanne CXR negative in 05-12 Tobacco use disorder 10/11/2004 11/18/2011 Overview: Declined assistance with smoking cessation at this time for cost issues as of 12-11 PFTs 05-12: NL ratio, TLC in the 80% range, NL BON[place] (restriction secondary to weight) Started patches in 07-12 Quit documented as of this encounter (statuses as of 10/14/2021) [facility]04-27-2016 History of Past illness Narrative* Problem Noted Date Resolved Date Tracheostomy present 07/01/2015 07/24/2017 Electrolyte imbalance 03/12/2015 07/19/2016 Overview: --Monitor electrolytes daily and replacing as indicated -- replaced K, Mg Hypernatremia 03/12/2015 03/19/2015 Overview: Patient given free water and sodium removed from TPN Hypernatremia 03/09/2015 03/14/2015 Overview: Sodium up to 156 over the weekend, now down to 144 with increasing free water -- No sodium or chloride in current bag Hyperbilirubinemia 03/03/2015 03/08/2015 Overview: Mostly conjugated. CT af abd 02/28 w/ fluid around gall bladder, some sludge but no dilation. Improved today. 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 Coli in blood resistant to cipro, ampicillin, and gent (patient with PCN and cephalosporin allergy) CT 1/2 with enteric leak and stable fluid collections Remains afebrile -- continue aztreonam, flagyl, and vanco (levels and dosing per pharmacy) per ID recommendations x 3 weeks thru 04/03 -- COPAT Completed Acute kidney injury 02/28/2015 03/19/2015 Overview: Resolved once sepsis resolved Metabolic acidosis 02/26/2015 03/19/2015 Acute postoperative respiratory insufficiency 07/19/2016 Overview: History of smoking, COPD, asthma Intubated for Exlap 02/23- 02/25, required re-intubation x 2 more times Now status post Tracheostomy by ENT on Mar. Tolerated trach collar x 24 hrs -- continue scheduled Duonebs -- continue trach collar during days -- rest on vent overnight Electrolyte and fluid disorder 02/24/2015 1 Overview: Checking lytes daily and replacing as needed. Class 2 obesity due to exces s calories with body mass index (BMI) of 38.0 to 38.9 in adult 12/18/2007 11/08/2016 Overview: Complicating ventilation, and recovery from surgical procedure Routine general medical exam ination at a health care facility 11/14/2006 02/25/2013 Overview: Empiric Bactrim in 12-11: culture showed mixed maryanne CXR negative in 05-12 Tobacco use disorder 10/11/2004 11/18/2011 Overview: Declined assistance with smoking cessation at this time for cost issues as of 12-11 PFTs 3-09: NL ratio, TLC in the 80% range, NL B[place] (restriction secondary to weight) Started patches in 07-12 Quit documented as of this encounter (statuses as of 10/28/2021) [facility]04-[facility]2016 History of Past illness Narrative* Problem Noted Date Resolved Date Tracheostomy present 07/01/2015 07/24/2017 Electrolyte imbalance 03/12/2015 07/19/2016 Overview: --Monitor electrolytes daily and replacing as indicated -- replaced K, Mg Hypernatremia 03/12/2015 03/19/2015 Overview: Patient given free water and sodium removed from TPN Hypernatremia 03/09/2015 03/14/2015 Overview: Sodium up to 156 over the weekend, now down to 144 with increasing free water -- No sodium or chloride in current bag Hyperbilirubinemia 03/03/2015 03/08/2015 Overview: Mostly conjugated. CT af abd 02/28 w/ fluid around gall bladder, some sludge but no dilation. Improved today. 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 Coli in blood resistant to cipro, ampicillin, and gent (patient with PCN and cephalosporin allergy) CT 1/2 with enteric leak and stable fluid collections Remains afebrile -- continue aztreonam, flagyl, and vanco (levels and dosing per pharmacy) per ID recommendations x 3 weeks thru 04/03 -- COPAT Completed Acute kidney injury 02/28/2015 03/19/2015 Overview: Resolved once sepsis resolved Metabolic acidosis 02/26/2015 03/19/2015 Acute postoperative respiratory insufficiency 07/19/2016 Overview: History of smoking, COPD, asthma Intubated for Exlap 02/23- 02/25, required re-intubation x 2 more times Now status post Tracheostomy by ENT on Mar. 7th Tolerated trach collar x 24 hrs -- continue scheduled Duonebs -- continue trach collar during days -- rest on vent overnight Electrolyte and fluid disorder 02/24/2015 1 Overview: Checking lytes daily and replacing as needed. Class 2 obesity due to exces s calories with body mass index (BMI) of 38.0 to 38.9 in adult 12/18/2007 11/08/2016 Overview: Complicating ventilation, and recovery from surgical procedure Routine [facility] 11/14/2006 02/25/2013 Overview: Empiric Bactrim in 12-11: culture showed mixed maryanne CXR negative in 05-12 Tobacco use disorder 10/11/2004 11/18/2011 Overview: Declined assistance with smoking cessation at this time for cost issues as of 12-11 PFTs 05-12: NL ratio, TLC in the 80% range, NL [place] (restriction secondary to weight) Started patches in 07-12 Quit documented as of this encounter (statuses as of 12/28/2021) [facility]04-[facility]2016 History of Past illness Narrative* Problem Noted Date Resolved Date Tracheostomy present 07/01/2015 07/24/2017 Electrolyte imbalance 03/12/2015 07/19/2016 Overview: --Monitor electrolytes daily and replacing as indicated -- replaced K, Mg Hypernatremia 03/12/2015 03/19/2015 Overview: Patient given free water and sodium removed from TPN Hypernatremia 03/09/2015 03/14/2015 Overview: Sodium up to 156 over the weekend, now down to 144 with increasing free water -- No sodium or chloride in current bag Hyperbilirubinemia 03/03/2015 03/08/2015 Overview: Mostly conjugated. CT af abd 02/28 w/ fluid around gall bladder, some sludge but no dilation. Improved today. 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 Coli in blood resistant to cipro, ampicillin, and gent (patient with PCN and cephalosporin allergy) CT 1/2 with enteric leak and stable fluid collections Remains afebrile -- continue aztreonam, flagyl, and vanco (levels and dosing per pharmacy) per ID recommendations x 3 weeks thru 04/03 -- COPAT Completed Acute kidney injury 02/28/2015 03/19/2015 Overview: Resolved once sepsis resolved Metabolic acidosis 02/26/2015 03/19/2015 Acute postoperative respiratory insufficiency 07/19/2016 Overview: History of smoking, COPD, asthma Intubated for Exlap 02/23- 02/25, required re-intubation x 2 more times Now status post Tracheostomy by ENT on Mar. Tolerated trach collar x 24 hrs -- continue scheduled Duonebs -- continue trach collar during days -- rest on vent overnight Electrolyte and fluid disorder 02/24/2015 1 Overview: Checking lytes daily and replacing as needed. Class 2 obesity due to exces s calories with body mass index (BMI) of 38.0 to 38.9 in adult 12/18/2007 11/08/2016 Overview: Complicating ventilation, and recovery from surgical procedure Routine general medical exam ination at a health care facility 11/14/2006 02/25/2013 Overview: Empiric Bactrim in 12-11: culture showed mixed maryanne CXR negative in 05-12 Tobacco use disorder 10/11/2004 11/18/2011 Overview: Declined assistance with smoking cessation at this time for cost issues as of 12-11 PFTs 05-12: NL ratio, TLC in the 80% range, NL B[place] (restriction secondary to weight) Started patches in 07-12 Quit documented as of this encounter (statuses as of 01/06/2022) [facility]04-[facility]2016 History of Past illness Narrative* Problem Noted Date Resolved Date Tracheostomy present 07/01/2015 07/24/2017 Electrolyte imbalance 03/12/2015 07/19/2016 Overview: --Monitor electrolytes daily and replacing as indicated -- replaced K, Mg Hypernatremia 03/12/2015 03/19/2015 Overview: Patient given free water and sodium removed from TPN Hypernatremia 03/09/2015 03/14/2015 Overview: Sodium up to 156 over the weekend, now down to 144 with increasing free water -- No sodium or chloride in current bag Hyperbilirubinemia 03/03/2015 03/08/2015 Overview: Mostly conjugated. CT af abd 02/28 w/ fluid around gall bladder, some sludge but no dilation. Improved today. 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 Coli in blood resistant to cipro, ampicillin, and gent (patient with PCN and cephalosporin allergy) CT 1/2 with enteric leak and stable fluid collections Remains afebrile -- continue aztreonam, flagyl, and vanco (levels and dosing per pharmacy) per ID recommendations x 3 weeks thru 04/03 -- COPAT Completed Acute kidney injury 02/28/2015 03/19/2015 Overview: Resolved once sepsis resolved Metabolic acidosis 02/26/2015 03/19/2015 Acute postoperative respiratory insufficiency 07/19/2016 Overview: History of smoking, COPD, asthma Intubated for Exlap 02/23- 02/25, required re-intubation x 2 more times Now status post Tracheostomy by ENT on Mar.12 Tolerated trach collar x 24 hrs -- continue scheduled Duonebs -- continue trach collar during days -- rest on vent overnight Electrolyte and fluid disorder 02/24/2015 1 Overview: Checking lytes daily and replacing as needed. Class 2 obesity due to exces s calories with body mass index (BMI) of 38.0 to 38.9 in adult 12/18/2007 11/08/2016 Overview: Complicating ventilation, and recovery from surgical procedure Routine general medical exam ination at a health care facility 11/14/2006 02/25/2013 Overview: Empiric Bactrim in 12-11: culture showed mixed maryanne CXR negative in 05-12 Tobacco use disorder 10/11/2004 11/18/2011 Overview: Declined assistance with smoking cessation at this time for cost issues as of 12-11 PFTs 05-12: NL ratio, TLC in the 80% range, NL B[place] (restriction secondary to weight) Started patches in 07-12 Quit documented as of this encounter (statuses as of 01/06/2022) [facility]04[facility]2016 History of Past illness Narrative* Problem Noted Date Resolved Date Tracheostomy present 07/01/2015 07/24/2017 Electrolyte imbalance 03/12/2015 07/19/2016 Overview: --Monitor electrolytes daily and replacing as indicated -- replaced K, Mg Hypernatremia 03/12/2015 03/19/2015 Overview: Patient given free water and sodium removed from TPN Hypernatremia 03/09/2015 03/14/2015 Overview: Sodium up to 156 over the weekend, now down to 144 with increasing free water -- No sodium or chloride in current bag Hyperbilirubinemia 03/03/2015 03/08/2015 Overview: Mostly conjugated. CT af abd 02/28 w/ fluid around gall bladder, some sludge but no dilation. Improved today. 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 Coli in blood resistant to cipro, ampicillin, and gent (patient with PCN and cephalosporin allergy) CT 1/2 with enteric leak and stable fluid collections Remains afebrile -- continue aztreonam, flagyl, and vanco (levels and dosing per pharmacy) per ID recommendations x 3 weeks thru 04/03 -- COPAT Completed Acute kidney injury 02/28/2015 03/19/2015 Overview: Resolved once sepsis resolved Metabolic acidosis 02/26/2015 03/19/2015 Acute postoperative respiratory insufficiency 07/19/2016 Overview: History of smoking, COPD, asthma Intubated for Exlap 02/23- 02/25, required re-intubation x 2 more times Now status post Tracheostomy by ENT on Mar. Tolerated trach collar x 24 hrs -- continue scheduled Duonebs -- continue trach collar during days -- rest on vent overnight Electrolyte and fluid disorder 02/24/2015 1 Overview: Checking lytes daily and replacing as needed. Class 2 obesity due to exces s calories with body mass index (BMI) of 38.0 to 38.9 in adult 12/18/2007 11/08/2016 Overview: Complicating ventilation, and recovery from surgical procedure Routine general medical exam ination at a [facility] facility 11/14/2006 02/25/2013 Overview: Empiric Bactrim in 12-11: culture showed mixed maryanne CXR negative in 05-12 Tobacco use disorder 10/11/2004 11/18/2011 Overview: Declined assistance with smoking cessation at this time for cost issues as of 12-11 PFTs 05-12: NL ratio, TLC in the 80% range, NL B[place] (restriction secondary to weight) Started patches in 07-12 Quit documented as of this encounter (statuses as of 04/26/2022) [facility]04[facility]2016 History of Past illness Narrative* Problem Noted Date Resolved Date Tracheostomy present 07/01/2015 07/24/2017 Electrolyte imbalance 03/12/2015 07/19/2016 Overview: --Monitor electrolytes daily and replacing as indicated -- replaced K, Mg Hypernatremia 03/12/2015 03/19/2015 Overview: Patient given free water and sodium removed from TPN Hypernatremia 03/09/2015 03/14/2015 Overview: Sodium up to 156 over the weekend, now down to 144 with increasing free water -- No sodium or chloride in current bag Hyperbilirubinemia 03/03/2015 03/08/2015 Overview: Mostly conjugated. CT af abd 02/28 w/ fluid around gall bladder, some sludge but no dilation. Improved today. 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 Coli in blood resistant to cipro, ampicillin, and gent (patient with PCN and cephalosporin allergy) CT 1/2 with enteric leak and stable fluid collections Remains afebrile -- continue aztreonam, flagyl, and vanco (levels and dosing per pharmacy) per ID recommendations x 3 weeks thru 04/03 -- COPAT Completed Acute kidney injury 02/28/2015 03/19/2015 Overview: Resolved once sepsis resolved Metabolic acidosis 02/26/2015 03/19/2015 Acute postoperative respiratory insufficiency 07/19/2016 Overview: History of smoking, COPD, asthma Intubated for Exlap 02/23- 02/25, required re-intubation x 2 more times Now status post Tracheostomy by ENT on Mar. Tolerated trach collar x 24 hrs -- continue scheduled Duonebs -- continue trach collar during days -- rest on vent overnight Electrolyte and fluid disorder 02/24/2015 1 Overview: Checking lytes daily and replacing as needed. Class 2 obesity due to exces s calories with body mass index (BMI) of 38.0 to 38.9 in adult 12/18/2007 11/08/2016 Overview: Complicating ventilation, and recovery from surgical procedure Routine general medical exam ination at a health care facility 11/14/2006 02/25/2013 Overview: Empiric Bactrim in 12-11: culture showed mixed maryanne CXR negative in 05-12 Tobacco use disorder 10/11/2004 11/18/2011 Overview: Declined assistance with smoking cessation at this time for cost issues as of 12-11 PFTs 05-12: NL ratio, TLC in the 80% range, NL BON[place] (restriction secondary to weight) Started patches in 07-12 Quit documented as of this encounter (statuses as of 04/30/2022) [facility]04[facility] History of Past illness Narrative* Problem Noted Date Resolved Date Tracheostomy present 07/01/2015 07/24/2017 Electrolyte imbalance 03/12/2015 07/19/2016 Overview: --Monitor electrolytes daily and replacing as indicated -- replaced K, Mg Hypernatremia 03/12/2015 03/19/2015 Overview: Patient given free water and sodium removed from TPN Hypernatremia 03/09/2015 03/14/2015 Overview: Sodium up to 156 over the weekend, now down to 144 with increasing free water -- No sodium or chloride in current bag Hyperbilirubinemia 03/03/2015 03/08/2015 Overview: Mostly conjugated. CT af abd 02/28 w/ fluid around gall bladder, some sludge but no dilation. Improved today. 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 Coli in blood resistant to cipro, ampicillin, and gent (patient with PCN and cephalosporin allergy) CT 1/2 with enteric leak and stable fluid collections Remains afebrile -- continue aztreonam, flagyl, and vanco (levels and dosing per pharmacy) per ID recommendations x 3 weeks thru 04/03 -- COPAT Completed Acute kidney injury 02/28/2015 03/19/2015 Overview: Resolved once sepsis resolved Metabolic acidosis 02/26/2015 03/19/2015 Acute postoperative respiratory insufficiency 07/19/2016 Overview: History of smoking, COPD, asthma Intubated for Exlap 02/23- 02/25, required re-intubation x 2 more times Now status post Tracheostomy by ENT on Mar. Tolerated trach collar x 24 hrs -- continue scheduled Duonebs -- continue trach collar during days -- rest on vent overnight Electrolyte and fluid disorder 02/24/2015 1 Overview: Checking lytes daily and replacing as needed. Class 2 obesity due to exces s calories with body mass index (BMI) of 38.0 to 38.9 in adult 12/18/2007 11/08/2016 Overview: Complicating ventilation, and recovery from surgical procedure Routine general medical exam ination at a health care facility 11/14/2006 02/25/2013 Overview: Empiric Bactrim in 12-11: culture showed mixed maryanne CXR negative in 05-12 Tobacco use disorder 10/11/2004 11/18/2011 Overview: Declined assistance with smoking cessation at this time for cost issues as of 12-11 PFTs 05-12: NL ratio, TLC in the 80% range, NL BON[place] (restriction secondary to weight) Started patches in 07-12 Quit documented as of this encounter (statuses as of 05/31/2022) [facility]04[facility] History of Past illness Narrative* Problem Noted Date Resolved Date Tracheostomy present 07/01/2015 07/24/2017 Electrolyte imbalance 03/12/2015 07/19/2016 Overview: --Monitor electrolytes daily and replacing as indicated -- replaced K, Mg Hypernatremia 03/12/2015 03/19/2015 Overview: Patient given free water and sodium removed from TPN Hypernatremia 03/09/2015 03/14/2015 Overview: Sodium up to 156 over the weekend, now down to 144 with increasing free water -- No sodium or chloride in current bag Hyperbilirubinemia 03/03/2015 03/08/2015 Overview: Mostly conjugated. CT af abd 02/28 w/ fluid around gall bladder, some sludge but no dilation. Improved today. 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 Coli in blood resistant to cipro, ampicillin, and gent (patient with PCN and cephalosporin allergy) CT 1/2 with enteric leak and stable fluid collections Remains afebrile -- continue aztreonam, flagyl, and vanco (levels and dosing per pharmacy) per ID recommendations x 3 weeks thru 04/03 -- COPAT Completed Acute kidney injury 02/28/2015 03/19/2015 Overview: Resolved once sepsis resolved Metabolic acidosis 02/26/2015 03/19/2015 Acute postoperative respiratory insufficiency 07/19/2016 Overview: History of smoking, COPD, asthma Intubated for Exlap 02/23- 02/25, required re-intubation x 2 more times Now status post Tracheostomy by ENT on Mar. Tolerated trach collar x 24 hrs -- continue scheduled Duonebs -- continue trach collar during days -- rest on vent overnight Electrolyte and fluid disorder 02/24/2015 1 Overview: Checking lytes daily and replacing as needed. Class 2 obesity due to exces s calories with body mass index (BMI) of 38.0 to 38.9 in adult 12/18/2007 11/08/2016 Overview: Complicating ventilation, and recovery from surgical procedure Routine general medical exam ination at a health care facility 11/14/2006 02/25/2013 Overview: Empiric Bactrim in 12-11: culture showed mixed maryanne CXR negative in 05-12 Tobacco use disorder 10/11/2004 11/18/2011 Overview: Declined assistance with smoking cessation at this time for cost issues as of 12-11 PFTs 05-12: NL ratio, TLC in the 80% range, NL BON[place] (restriction secondary to weight) Started patches in 07-12 Quit documented as of this encounter (statuses as of 06/07/2022) [facility]04-27-2016 History of Past illness Narrative* Problem Noted Date Resolved Date Tracheostomy present 07/01/2015 07/24/2017 Electrolyte imbalance 03/12/2015 07/19/2016 Overview: --Monitor electrolytes daily and replacing as indicated -- replaced K, Mg Hypernatremia 03/12/2015 03/19/2015 Overview: Patient given free water and sodium removed from TPN Hypernatremia 03/09/2015 03/14/2015 Overview: Sodium up to 156 over the weekend, now down to 144 with increasing free water -- No sodium or chloride in current bag Hyperbilirubinemia 03/03/2015 03/08/2015 Overview: Mostly conjugated. CT af abd 02/28 w/ fluid around gall bladder, some sludge but no dilation. Improved today. 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 Coli in blood resistant to cipro, ampicillin, and gent (patient with PCN and cephalosporin allergy) CT 1/2 with enteric leak and stable fluid collections Remains afebrile -- continue aztreonam, flagyl, and vanco (levels and dosing per pharmacy) per ID recommendations x 3 weeks thru 04/03 -- COPAT Completed Acute kidney injury 02/28/2015 03/19/2015 Overview: Resolved once sepsis resolved Metabolic acidosis 02/26/2015 03/19/2015 Acute postoperative respiratory insufficiency 07/19/2016 Overview: History of smoking, COPD, asthma Intubated for Exlap 02/23- 02/25, required re-intubation x 2 more times Now status post Tracheostomy by ENT on Mar. Tolerated trach collar x 24 hrs -- continue scheduled Duonebs -- continue trach collar during days -- rest on vent overnight Electrolyte and fluid disorder 02/24/2015 1 Overview: Checking lytes daily and replacing as needed. Class 2 obesity due to exces s calories with body mass index (BMI) of 38.0 to 38.9 in adult 12/18/2007 11/08/2016 Overview: Complicating ventilation, and recovery from surgical procedure Routine general medical exam ination at a health care facility 11/14/2006 02/25/2013 Overview: Empiric Bactrim in 12-11: culture showed mixed maryanne CXR negative in 05-12 Tobacco use disorder 10/11/2004 11/18/2011 Overview: Declined assistance with smoking cessation at this time for cost issues as of 12-11 PFTs 05-12: NL ratio, TLC in the 80% range, NL B[place] (restriction secondary to weight) Started patches in 07-12 Quit documented as of this encounter (statuses as of 06/08/2022) [facility]04-27-2016 History of Past illness Narrative* Problem Noted Date Resolved Date Tracheostomy present 07/01/2015 07/24/2017 Electrolyte imbalance 03/12/2015 07/19/2016 Overview: --Monitor electrolytes daily and replacing as indicated -- replaced K, Mg Hypernatremia 03/12/2015 03/19/2015 Overview: Patient given free water and sodium removed from TPN Hypernatremia 03/09/2015 03/14/2015 Overview: Sodium up to 156 over the weekend, now down to 144 with increasing free water -- No sodium or chloride in current bag Hyperbilirubinemia 03/03/2015 03/08/2015 Overview: Mostly conjugated. CT af abd 02/28 w/ fluid around gall bladder, some sludge but no dilation. Improved today. 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 Coli in blood resistant to cipro, ampicillin, and gent (patient with PCN and cephalosporin allergy) CT 1/2 with enteric leak and stable fluid collections Remains afebrile -- continue aztreonam, flagyl, and vanco (levels and dosing per pharmacy) per ID recommendations x 3 weeks thru 04/03 -- COPAT Completed Acute kidney injury 02/28/2015 03/19/2015 Overview: Resolved once sepsis resolved Metabolic acidosis 02/26/2015 03/19/2015 Acute postoperative respiratory insufficiency 07/19/2016 Overview: History of smoking, COPD, asthma Intubated for Exlap 02/23- 02/25, required re-intubation x 2 more times Now status post Tracheostomy by ENT on Mar. Tolerated trach collar x 24 hrs -- continue scheduled Duonebs -- continue trach collar during days -- rest on vent overnight Electrolyte and fluid disorder 02/24/2015 1 Overview: Checking lytes daily and replacing as needed. Class 2 obesity due to exces s calories with body mass index (BMI) of 38.0 to 38.9 in adult 12/18/2007 11/08/2016 Overview: Complicating ventilation, and recovery from surgical procedure Routine general medical exam ination at a health care facility 11/14/2006 02/25/2013 Overview: Empiric Bactrim in 12-11: culture showed mixed maryanne CXR negative in 05-12 Tobacco use disorder 10/11/2004 11/18/2011 Overview: Declined assistance with smoking cessation at this time for cost issues as of 12-11 PFTs 05-12: NL ratio, TLC in the 80% range, NL [place] (restriction secondary to weight) Started patches in 07-12 Quit documented as of this encounter (statuses as of 06/10/2022) [facility]04-27[facility]2016 History of Past illness Narrative* Problem Noted Date Resolved Date Tracheostomy present 07/01/2015 07/24/2017 Electrolyte imbalance 03/12/2015 07/19/2016 Overview: --Monitor electrolytes daily and replacing as indicated -- replaced K, Mg Hypernatremia 03/12/2015 03/19/2015 Overview: Patient given free water and sodium removed from TPN Hypernatremia 03/09/2015 03/14/2015 Overview: Sodium up to 156 over the weekend, now down to 144 with increasing free water -- No sodium or chloride in current bag Hyperbilirubinemia 03/03/2015 03/08/2015 Overview: Mostly conjugated. CT af abd 02/28 w/ fluid around gall bladder, some sludge but no dilation. Improved today. 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 Coli in blood resistant to cipro, ampicillin, and gent (patient with PCN and cephalosporin allergy) CT 1/2 with enteric leak and stable fluid collections Remains afebrile -- continue aztreonam, flagyl, and vanco (levels and dosing per pharmacy) per ID recommendations x 3 weeks thru 04/03 -- COPAT Completed Acute kidney injury 02/28/2015 03/19/2015 Overview: Resolved once sepsis resolved Metabolic acidosis 02/26/2015 03/19/2015 Acute postoperative respiratory insufficiency 07/19/2016 Overview: History of smoking, COPD, asthma Intubated for Exlap 02/23- 02/25, required re-intubation x 2 more times Now status post Tracheostomy by ENT on Mar. Tolerated trach collar x 24 hrs -- continue scheduled Duonebs -- continue trach collar during days -- rest on vent overnight Electrolyte and fluid disorder 02/24/2015 1 Overview: Checking lytes daily and replacing as needed. Class 2 obesity due to exces s calories with body mass index (BMI) of 38.0 to 38.9 in adult 12/18/2007 11/08/2016 Overview: Complicating ventilation, and recovery from surgical procedure Routine general medical exam ination at a [facility] facility 11/14/2006 02/25/2013 Overview: Empiric Bactrim in 12-11: culture showed mixed maryanne CXR negative in 05-12 Tobacco use disorder 10/11/2004 11/18/2011 Overview: Declined assistance with smoking cessation at this time for cost issues as of 12-11 PFTs 05-12: NL ratio, TLC in the 80% range, NL [place] (restriction secondary to weight) Started patches in 07-12 Quit documented as of this encounter (statuses as of 06/13/2022) [facility]04-[facility]2016 History of Past illness Narrative* Problem Noted Date Resolved Date Tracheostomy present 07/01/2015 07/24/2017 Electrolyte imbalance 03/12/2015 07/19/2016 Overview: --Monitor electrolytes daily and replacing as indicated -- replaced K, Mg Hypernatremia 03/12/2015 03/19/2015 Overview: Patient given free water and sodium removed from TPN Hypernatremia 03/09/2015 03/14/2015 Overview: Sodium up to 156 over the weekend, now down to 144 with increasing free water -- No sodium or chloride in current bag Hyperbilirubinemia 03/03/2015 03/08/2015 Overview: Mostly conjugated. CT af abd 02/28 w/ fluid around gall bladder, some sludge but no dilation. Improved today. 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 Coli in blood resistant to cipro, ampicillin, and gent (patient with PCN and cephalosporin allergy) CT 1/2 with enteric leak and stable fluid collections Remains afebrile -- continue aztreonam, flagyl, and vanco (levels and dosing per pharmacy) per ID recommendations x 3 weeks thru 04/03 -- COPAT Completed Acute kidney injury 02/28/2015 03/19/2015 Overview: Resolved once sepsis resolved Metabolic acidosis 02/26/2015 03/19/2015 Acute postoperative respiratory insufficiency 07/19/2016 Overview: History of smoking, COPD, asthma Intubated for Exlap 02/23- 02/25, required re-intubation x 2 more times Now status post Tracheostomy by ENT on Mar. Tolerated trach collar x 24 hrs -- continue scheduled Duonebs -- continue trach collar during days -- rest on vent overnight Electrolyte and fluid disorder 02/24/2015 1 Overview: Checking lytes daily and replacing as needed. Class 2 obesity due to exces s calories with body mass index (BMI) of 38.0 to 38.9 in adult 12/18/2007 11/08/2016 Overview: Complicating ventilation, and recovery from surgical procedure Routine general medical exam ination at a health care facility 11/14/2006 02/25/2013 Overview: Empiric Bactrim in 12-11: culture showed mixed maryanne CXR negative in 05-12 Tobacco use disorder 10/11/2004 11/18/2011 Overview: Declined assistance with smoking cessation at this time for cost issues as of 12-11 PFTs 05-12: NL ratio, TLC in the 80% range, NL B[place] (restriction secondary to weight) Started patches in 07-12 Quit documented as of this encounter (statuses as of 06/14/2022) [facility]04-[facility]2016 History of Past illness Narrative* Problem Noted Date Resolved Date Tracheostomy present 07/01/2015 07/24/2017 Electrolyte imbalance 03/12/2015 07/19/2016 Overview: --Monitor electrolytes daily and replacing as indicated -- replaced K, Mg Hypernatremia 03/12/2015 03/19/2015 Overview: Patient given free water and sodium removed from TPN Hypernatremia 03/09/2015 03/14/2015 Overview: Sodium up to 156 over the weekend, now down to 144 with increasing free water -- No sodium or chloride in current bag Hyperbilirubinemia 03/03/2015 03/08/2015 Overview: Mostly conjugated. CT af abd 02/28 w/ fluid around gall bladder, some sludge but no dilation. Improved today. 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 Coli in blood resistant to cipro, ampicillin, and gent (patient with PCN and cephalosporin allergy) CT 1/2 with enteric leak and stable fluid collections Remains afebrile -- continue aztreonam, flagyl, and vanco (levels and dosing per pharmacy) per ID recommendations x 3 weeks thru 04/03 -- COPAT Completed Acute kidney injury 02/28/2015 03/19/2015 Overview: Resolved once sepsis resolved Metabolic acidosis 02/26/2015 03/19/2015 Acute postoperative respiratory insufficiency 07/19/2016 Overview: History of smoking, COPD, asthma Intubated for Exlap 02/23- 02/25, required re-intubation x 2 more times Now status post Tracheostomy by ENT on Mar. Tolerated trach collar x 24 hrs -- continue scheduled Duonebs -- continue trach collar during days -- rest on vent overnight Electrolyte and fluid disorder 02/24/2015 1 Overview: Checking lytes daily and replacing as needed. Class 2 obesity due to exces s calories with body mass index (BMI) of 38.0 to 38.9 in adult 12/18/2007 11/08/2016 Overview: Complicating ventilation, and recovery from surgical procedure Routine general medical exam ination at a health care facility 11/14/2006 02/25/2013 Overview: Empiric Bactrim in 12-11: culture showed mixed maryanne CXR negative in 05-12 Tobacco use disorder 10/11/2004 11/18/2011 Overview: Declined assistance with smoking cessation at this time for cost issues as of 12-11 PFTs 05-12: NL ratio, TLC in the 80% range, NL B[place] (restriction secondary to weight) Started patches in 07-12 Quit documented as of this encounter (statuses as of 06/24/2022) [facility]04-[facility]2016 History of Past illness Narrative* Problem Noted Date Resolved Date Tracheostomy present 07/01/2015 07/24/2017 Electrolyte imbalance 03/12/2015 07/19/2016 Overview: --Monitor electrolytes daily and replacing as indicated -- replaced K, Mg Hypernatremia 03/12/2015 03/19/2015 Overview: Patient given free water and sodium removed from TPN Hypernatremia 03/09/2015 03/14/2015 Overview: Sodium up to 156 over the weekend, now down to 144 with increasing free water -- No sodium or chloride in current bag Hyperbilirubinemia 03/03/2015 03/08/2015 Overview: Mostly conjugated. CT af abd 02/28 w/ fluid around gall bladder, some sludge but no dilation. Improved today. 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 Coli in blood resistant to cipro, ampicillin, and gent (patient with PCN and cephalosporin allergy) CT 1/2 with enteric leak and stable fluid collections Remains afebrile -- continue aztreonam, flagyl, and vanco (levels and dosing per pharmacy) per ID recommendations x 3 weeks thru 04/03 -- COPAT Completed Acute kidney injury 02/28/2015 03/19/2015 Overview: Resolved once sepsis resolved Metabolic acidosis 02/26/2015 03/19/2015 Acute postoperative respiratory insufficiency 07/19/2016 Overview: History of smoking, COPD, asthma Intubated for Exlap 02/23- 02/25, required re-intubation x 2 more times Now status post Tracheostomy by ENT on Mar. Tolerated trach collar x 24 hrs -- continue scheduled Duonebs -- continue trach collar during days -- rest on vent overnight Electrolyte and fluid disorder 02/24/2015 1 Overview: Checking lytes daily and replacing as needed. Class 2 obesity due to exces s calories with body mass index (BMI) of 38.0 to 38.9 in adult 12/18/2007 11/08/2016 Overview: Complicating ventilation, and recovery from surgical procedure Routine general medical exam ination at a health care facility 11/14/2006 02/25/2013 Overview: Empiric Bactrim in 12-11: culture showed mixed maryanne CXR negative in 05-12 Tobacco use disorder 10/11/2004 11/18/2011 Overview: Declined assistance with smoking cessation at this time for cost issues as of 12-11 PFTs 05-12: NL ratio, TLC in the 80% range, NL B[place] (restriction secondary to weight) Started patches in 07-12 Quit documented as of this encounter (statuses as of 06/25/2022) [facility]04-[facility]2016 History of Past illness Narrative* Problem Noted Date Resolved Date Tracheostomy present 07/01/2015 07/24/2017 Electrolyte imbalance 03/12/2015 07/19/2016 Overview: --Monitor electrolytes daily and replacing as indicated -- replaced K, Mg Hypernatremia 03/12/2015 03/19/2015 Overview: Patient given free water and sodium removed from TPN Hypernatremia 03/09/2015 03/14/2015 Overview: Sodium up to 156 over the weekend, now down to 144 with increasing free water -- No sodium or chloride in current bag Hyperbilirubinemia 03/03/2015 03/08/2015 Overview: Mostly conjugated. CT af abd 02/28 w/ fluid around gall bladder, some sludge but no dilation. Improved today. 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 Coli in blood resistant to cipro, ampicillin, and gent (patient with PCN and cephalosporin allergy) CT 1/2 with enteric leak and stable fluid collections Remains afebrile -- continue aztreonam, flagyl, and vanco (levels and dosing per pharmacy) per ID recommendations x 3 weeks thru 04/03 -- COPAT Completed Acute kidney injury 02/28/2015 03/19/2015 Overview: Resolved once sepsis resolved Metabolic acidosis 02/26/2015 03/19/2015 Acute postoperative respiratory insufficiency 07/19/2016 Overview: History of smoking, COPD, asthma Intubated for Exlap 02/23- 02/25, required re-intubation x 2 more times Now status post Tracheostomy by ENT on Mar. Tolerated trach collar x 24 hrs -- continue scheduled Duonebs -- continue trach collar during days -- rest on vent overnight Electrolyte and fluid disorder 02/24/2015 1 Overview: Checking lytes daily and replacing as needed. Class 2 obesity due to exces s calories with body mass index (BMI) of 38.0 to 38.9 in adult 12/18/2007 11/08/2016 Overview: Complicating ventilation, and recovery from surgical procedure Routine general medical exam ination at a health care facility 11/14/2006 02/25/2013 Overview: Empiric Bactrim in 12-11: culture showed mixed maryanne CXR negative in 05-12 Tobacco use disorder 10/11/2004 11/18/2011 Overview: Declined assistance with smoking cessation at this time for cost issues as of 12-11 PFTs 3: NL ratio, TLC in the 80% range, NL B[place] (restriction secondary to weight) Started patches in 07-12 Quit documented as of this encounter (statuses as of 06/29/2022) [facility]04[facility] History of Past illness Narrative* Problem Noted Date Resolved Date Tracheostomy present 07/01/2015 07/24/2017 Electrolyte imbalance 03/12/2015 07/19/2016 Overview: --Monitor electrolytes daily and replacing as indicated -- replaced K, Mg Hypernatremia 03/12/2015 03/19/2015 Overview: Patient given free water and sodium removed from TPN Hypernatremia 03/09/2015 03/14/2015 Overview: Sodium up to 156 over the weekend, now down to 144 with increasing free water -- No sodium or chloride in current bag Hyperbilirubinemia 03/03/2015 03/08/2015 Overview: Mostly conjugated. CT af abd 02/28 w/ fluid around gall bladder, some sludge but no dilation. Improved today. 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 Coli in blood resistant to cipro, ampicillin, and gent (patient with PCN and cephalosporin allergy) CT 1/2 with enteric leak and stable fluid collections Remains afebrile -- continue aztreonam, flagyl, and vanco (levels and dosing per pharmacy) per ID recommendations x 3 weeks thru 04/03 -- COPAT Completed Acute kidney injury 02/28/2015 03/19/2015 Overview: Resolved once sepsis resolved Metabolic acidosis 02/26/2015 03/19/2015 Acute postoperative respiratory insufficiency 07/19/2016 Overview: History of smoking, COPD, asthma Intubated for Exlap 02/23- 02/25, required re-intubation x 2 more times Now status post Tracheostomy by ENT on Mar. Tolerated trach collar x 24 hrs -- continue scheduled Duonebs -- continue trach collar during days -- rest on vent overnight Electrolyte and fluid disorder 02/24/2015 1 Overview: Checking lytes daily and replacing as needed. Class 2 obesity due to exces s calories with body mass index (BMI) of 38.0 to 38.9 in adult 12/18/2007 11/08/2016 Overview: Complicating ventilation, and recovery from surgical procedure Routine [facility] 11/14/2006 02/25/2013 Overview: Empiric Bactrim in 12-11: culture showed mixed maryanne CXR negative in 05-12 Tobacco use disorder 10/11/2004 11/18/2011 Overview: Declined assistance with smoking cessation at this time for cost issues as of 12-11 PFTs 05-12: NL ratio, TLC in the 80% range, NL [place] (restriction secondary to weight) Started patches in 07-12 Quit documented as of this encounter (statuses as of 07/06/2022) [facility]04-27-2016 History of Past illness Narrative* Problem Noted Date Resolved Date Tracheostomy present 07/01/2015 07/24/2017 Electrolyte imbalance 03/12/2015 07/19/2016 Overview: --Monitor electrolytes daily and replacing as indicated -- replaced K, Mg Hypernatremia 03/12/2015 03/19/2015 Overview: Patient given free water and sodium removed from TPN Hypernatremia 03/09/2015 03/14/2015 Overview: Sodium up to 156 over the weekend, now down to 144 with increasing free water -- No sodium or chloride in current bag Hyperbilirubinemia 03/03/2015 03/08/2015 Overview: Mostly conjugated. CT af abd 02/28 w/ fluid around gall bladder, some sludge but no dilation. Improved today. 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 Coli in blood resistant to cipro, ampicillin, and gent (patient with PCN and cephalosporin allergy) CT 1/2 with enteric leak and stable fluid collections Remains afebrile -- continue aztreonam, flagyl, and vanco (levels and dosing per pharmacy) per ID recommendations x 3 weeks thru 04/03 -- COPAT Completed Acute kidney injury 02/28/2015 03/19/2015 Overview: Resolved once sepsis resolved Metabolic acidosis 02/26/2015 03/19/2015 Acute postoperative respiratory insufficiency 07/19/2016 Overview: History of smoking, COPD, asthma Intubated for Exlap 02/23- 02/25, required re-intubation x 2 more times Now status post Tracheostomy by ENT on Mar. Tolerated trach collar x 24 hrs -- continue scheduled Duonebs -- continue trach collar during days -- rest on vent overnight Electrolyte and fluid disorder 02/24/2015 1 Overview: Checking lytes daily and replacing as needed. Class 2 obesity due to exces s calories with body mass index (BMI) of 38.0 to 38.9 in adult 12/18/2007 11/08/2016 Overview: Complicating ventilation, and recovery from surgical procedure Routine general medical exam [facility]ation [facility] 11/14/2006 02/25/2013 Overview: Empiric Bactrim in 12-11: culture showed mixed maryanne CXR negative in 05-12 Tobacco use disorder 10/11/2004 11/18/2011 Overview: Declined assistance with smoking cessation at this time for cost issues as of 12-11 PFTs 05-12: NL ratio, TLC in the 80% range, NL [place] (restriction secondary to weight) Started patches in 07-12 Quit documented as of this encounter (statuses as of 07/20/2022) [facility]04-27-2016 History of Past illness Narrative* Problem Noted Date Resolved Date Tracheostomy present 07/01/2015 07/24/2017 Electrolyte imbalance 03/12/2015 07/19/2016 Overview: --Monitor electrolytes daily and replacing as indicated -- replaced K, Mg Hypernatremia 03/12/2015 03/19/2015 Overview: Patient given free water and sodium removed from TPN Hypernatremia 03/09/2015 03/14/2015 Overview: Sodium up to 156 over the weekend, now down to 144 with increasing free water -- No sodium or chloride in current bag Hyperbilirubinemia 03/03/2015 03/08/2015 Overview: Mostly conjugated. CT af abd 02/28 w/ fluid around gall bladder, some sludge but no dilation. Improved today. 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 Coli in blood resistant to cipro, ampicillin, and gent (patient with PCN and cephalosporin allergy) CT 1/2 with enteric leak and stable fluid collections Remains afebrile -- continue aztreonam, flagyl, and vanco (levels and dosing per pharmacy) per ID recommendations x 3 weeks thru 04/03 -- COPAT Completed Acute kidney injury 02/28/2015 03/19/2015 Overview: Resolved once sepsis resolved Metabolic acidosis 02/26/2015 03/19/2015 Acute postoperative respiratory insufficiency 07/19/2016 Overview: History of smoking, COPD, asthma Intubated for Exlap 02/23- 02/25, required re-intubation x 2 more times Now status post Tracheostomy by ENT on Mar. Tolerated trach collar x 24 hrs -- continue scheduled Duonebs -- continue trach collar during days -- rest on vent overnight Electrolyte and fluid disorder 02/24/2015 1 Overview: Checking lytes daily and replacing as needed. Class 2 obesity due to exces s calories with body mass index (BMI) of 38.0 to 38.9 in adult 12/18/2007 11/08/2016 Overview: Complicating ventilation, and recovery from surgical procedure Routine general medical exam ination at a health care facility 11/14/2006 02/25/2013 Overview: Empiric Bactrim in 12-11: culture showed mixed maryanne CXR negative in 05-12 Tobacco use disorder 10/11/2004 11/18/2011 Overview: Declined assistance with smoking cessation at this time for cost issues as of 12-11 PFTs 05-12: NL ratio, TLC in the 80% range, NL [place] (restriction secondary to weight) Started patches in 07-12 Quit documented as of this encounter (statuses as of 08/25/2022) [facility]04-27[facility]2016 History of Past illness Narrative* Problem Noted Date Diagnosed Date Resolved Date Tracheostomy present 07/01/2015 018 Electrolyte imbalance 03/12/20152016 Overview: --Monitor electrolytes daily and replacing as indicated -- replaced K, Mg Hypernatremia 03/12/2015 03/19/2015 Overview: Patient given free water and sodium removed from TPN Hypernatremia 03/09/2015 03/14/2015 Overview: Sodium up to 156 over the weekend, now down to 144 with increasing free water -- No sodium or chloride in current bag Hyperbilirubinemia 03/03/2015 6 Overview: Mostly conjugated. CT af abd 02/28 w/ fluid around gall bladder, some sludge but no dilation. Improved today. 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 Coli in blood resistant to cipro, ampicillin, and gent (patient with PCN and cephalosporin allergy) CT 1/2 with enteric leak and stable fluid collections Remains afebrile -- continue aztreonam, flagyl, and vanco (levels and dosing per pharmacy) per ID recommendations x 3 weeks thru 04/03 -- COPAT Completed Acute kidney injury 02/28/2015 03/19/19 16 Overview: Resolved once sepsis resolved Metabolic acidosis 02/26/2015 6 Acute postoperative respiratory insufficiency 02/25/20 15 07/19/2016 Overview: History of smoking, COPD, asthma Intubated for Exlap 02/23- 02/25, required re-intubation x 2 more times Now status post Tracheostomy by ENT on Mar. Tolerated trach collar x 24 hrs -- continue scheduled Duonebs -- continue trach collar during days -- rest on vent overnight Electrolyte and fluid disorder 02/24/2015 03/03/2015 Overview: Checking lytes daily and replacing as needed. Class 2 obesity due to exces s calories with body mass index (BMI) of 38.0 to 38.9 in adult 12/18/2007 11/08/2016 Overview: Complicating ventilation, and recovery from surgical procedure Routine general medical exam ination at [facility] 11/14/2006 02/25/2013 Overview: Empiric Bactrim in 12-11: culture showed mixed maryanne CXR negative in 05-12 Tobacco use disorder 10/11/2004 012 Overview: Declined assistance with smoking cessation at this time for cost issues as of 12-11 PFTs 05-12: NL ratio, TLC in the 80% range, NL [place] (restriction secondary to weight) Started patches in 07-12 Quit documented as of this encounter (statuses as of 09/21/2022) [facility]04-[facility]2016 History of Past illness Narrative* Problem Noted Date Diagnosed Date Resolved Date Tracheostomy present 07/01/2015 018 Electrolyte imbalance 03/12/20152016 Overview: --Monitor electrolytes daily and replacing as indicated -- replaced K, Mg Hypernatremia 03/12/2015 03/19/2015 Overview: Patient given free water and sodium removed from TPN Hypernatremia 03/09/2015 03/14/2015 Overview: Sodium up to 156 over the weekend, now down to 144 with increasing free water -- No sodium or chloride in current bag Hyperbilirubinemia 03/03/2015 6 Overview: Mostly conjugated. CT af abd 02/28 w/ fluid around gall bladder, some sludge but no dilation. Improved today. 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 Coli in blood resistant to cipro, ampicillin, and gent (patient with PCN and cephalosporin allergy) CT 1/2 with enteric leak and stable fluid collections Remains afebrile -- continue aztreonam, flagyl, and vanco (levels and dosing per pharmacy) per ID recommendations x 3 weeks thru 04/03 -- COPAT Completed Acute kidney injury 02/28/2015 03/19/19 16 Overview: Resolved once sepsis resolved Metabolic acidosis 02/26/2015 6 Acute postoperative respiratory insufficiency 02/25/20 15 07/19/2016 Overview: History of smoking, COPD, asthma Intubated for Exlap 02/23- 02/25, required re-intubation x 2 more times Now status post Tracheostomy by ENT on Mar. Tolerated trach collar x 24 hrs -- continue scheduled Duonebs -- continue trach collar during days -- rest on vent overnight Electrolyte and fluid disorder 02/24/2015 03/03/2015 Overview: Checking lytes daily and replacing as needed. Class 2 obesity due to exces s calories with body mass index (BMI) of 38.0 to 38.9 in adult 12/18/2007 11/08/2016 Overview: Complicating ventilation, and recovery from surgical procedure Routine general medical exam ination at a health care facility 11/14/2006 02/25/2013 Overview: Empiric Bactrim in 12-11: culture showed mixed maryanne CXR negative in 05-12 Tobacco use disorder 10/11/2004 012 Overview: Declined assistance with smoking cessation at this time for cost issues as of 12-11 PFTs 05-12: NL ratio, TLC in the 80% range, NL [place] (restriction secondary to weight) Started patches in 07-12 Quit documented as of this encounter (statuses as of 10/07/2022) [facility]04[facility] History of Past illness Narrative* Problem Noted Date Diagnosed Date Resolved Date Tracheostomy present 07/01/2015 018 Electrolyte imbalance 03/12/20152016 Overview: --Monitor electrolytes daily and replacing as indicated -- replaced K, Mg Hypernatremia 03/12/2015 03/19/2015 Overview: Patient given free water and sodium removed from TPN Hypernatremia 03/09/2015 03/14/2015 Overview: Sodium up to 156 over the weekend, now down to 144 with increasing free water -- No sodium or chloride in current bag Hyperbilirubinemia 03/03/201503/08/ 6 Overview: Mostly conjugated. CT af abd 02/28 w/ fluid around gall bladder, some sludge but no dilation. Improved today. 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 Coli in blood resistant to cipro, ampicillin, and gent (patient with PCN and cephalosporin allergy) CT 1/2 with enteric leak and stable fluid collections Remains afebrile -- continue aztreonam, flagyl, and vanco (levels and dosing per pharmacy) per ID recommendations x 3 weeks thru 04/03 -- COPAT Completed Acute kidney injury 02/28/2015 03/19/19 16 Overview: Resolved once sepsis resolved Metabolic acidosis 02/26/2015 6 Acute postoperative respiratory insufficiency 02/25/20 15 07/19/2016 Overview: History of smoking, COPD, asthma Intubated for Exlap 02/23- 02/25, required re-intubation x 2 more times Now status post Tracheostomy by ENT on Mar. Tolerated trach collar x 24 hrs -- continue scheduled Duonebs -- continue trach collar during days -- rest on vent overnight Electrolyte and fluid disorder 02/24/2015 03/03/2015 Overview: Checking lytes daily and replacing as needed. Class 2 obesity due to exces s calories with body mass index (BMI) of 38.0 to 38.9 in adult 12/18/2007 11/08/2016 Overview: Complicating ventilation, and recovery from surgical procedure Routine general medical exam ination at a health care facility 11/14/2006 02/25/2013 Overview: Empiric Bactrim in 12-11: culture showed mixed maryanne CXR negative in 05-12 Tobacco use disorder 10/11/2004 012 Overview: Declined assistance with smoking cessation at this time for cost issues as of 12-11 PFTs 05-12: NL ratio, TLC in the 80% range, NL [place] (restriction secondary to weight) Started patches in 07-12 Quit documented as of this encounter (statuses as of 10/08/2022) [facility]04[facility] History of Past illness Narrative* Problem Noted Date Diagnosed Date Resolved Date Tracheostomy present 07/01/2015 018 Electrolyte imbalance 03/12/20152016 Overview: --Monitor electrolytes daily and replacing as indicated -- replaced K, Mg Hypernatremia 03/12/2015 03/19/2015 Overview: Patient given free water and sodium removed from TPN Hypernatremia 03/09/2015 03/14/2015 Overview: Sodium up to 156 over the weekend, now down to 144 with increasing free water -- No sodium or chloride in current bag Hyperbilirubinemia 03/03/2015 6 Overview: Mostly conjugated. CT af abd 02/28 w/ fluid around gall bladder, some sludge but no dilation. Improved today. 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 Coli in blood resistant to cipro, ampicillin, and gent (patient with PCN and cephalosporin allergy) CT 1/2 with enteric leak and stable fluid collections Remains afebrile -- continue aztreonam, flagyl, and vanco (levels and dosing per pharmacy) per ID recommendations x 3 weeks thru 04/03 -- COPAT Completed Acute kidney injury 02/28/2015 03/19/19 16 Overview: Resolved once sepsis resolved Metabolic acidosis 02/26/2015 6 Acute postoperative respiratory insufficiency 02/25/20 15 07/19/2016 Overview: History of smoking, COPD, asthma Intubated for Exlap 02/23- 02/25, required re-intubation x 2 more times Now status post Tracheostomy by ENT on Mar.12 Tolerated trach collar x 24 hrs -- continue scheduled Duonebs -- continue trach collar during days -- rest on vent overnight Electrolyte and fluid disorder 02/24/2015 03/03/2015 Overview: Checking lytes daily and replacing as needed. Class 2 obesity due to exces s calories with body mass index (BMI) of 38.0 to 38.9 in adult 12/18/2007 11/08/2016 Overview: Complicating ventilation, and recovery from surgical procedure Routine general medical exam [facility] 11/14/2006 02/25/2013 Overview: Empiric Bactrim in 12-11: culture showed mixed maryanne CXR negative in 05-12 Tobacco use disorder 10/11/2004 012 Overview: Declined assistance with smoking cessation at this time for cost issues as of 12-11 PFTs 05-12: NL ratio, TLC in the 80% range, NL [place] (restriction secondary to weight) Started patches in 07-12 Quit documented as of this encounter (statuses as of 10/25/2022) [facility]04[facility] History of Past illness Narrative* Problem Noted Date Diagnosed Date Resolved Date Tracheostomy present 07/01/2015 018 Electrolyte imbalance 03/12/20152016 Overview: --Monitor electrolytes daily and replacing as indicated -- replaced K, Mg Hypernatremia 03/12/2015 03/19/2015 Overview: Patient given free water and sodium removed from TPN Hypernatremia 03/09/2015 03/14/2015 Overview: Sodium up to 156 over the weekend, now down to 144 with increasing free water -- No sodium or chloride in current bag Hyperbilirubinemia 03/03/2015 6 Overview: Mostly conjugated. CT af abd 02/28 w/ fluid around gall bladder, some sludge but no dilation. Improved today. 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 Coli in blood resistant to cipro, ampicillin, and gent (patient with PCN and cephalosporin allergy) CT 1/2 with enteric leak and stable fluid collections Remains afebrile -- continue aztreonam, flagyl, and vanco (levels and dosing per pharmacy) per ID recommendations x 3 weeks thru 04/03 -- COPAT Completed Acute kidney injury 02/28/2015 03/19/19 16 Overview: Resolved once sepsis resolved Metabolic acidosis 02/26/2015 6 Acute postoperative respiratory insufficiency 02/25/20 15 07/19/2016 Overview: History of smoking, COPD, asthma Intubated for Exlap 02/23- 02/25, required re-intubation x 2 more times Now status post Tracheostomy by ENT on Mar. Tolerated trach collar x 24 hrs -- continue scheduled Duonebs -- continue trach collar during days -- rest on vent overnight Electrolyte and fluid disorder 02/24/2015 03/03/2015 Overview: Checking lytes daily and replacing as needed. Class 2 obesity due to exces s calories with body mass index (BMI) of 38.0 to 38.9 in adult 12/18/2007 11/08/2016 Overview: Complicating ventilation, and recovery from surgical procedure Routine general medical exam ination at a health care facility 11/14/2006 02/25/2013 Overview: Empiric Bactrim in 12-11: culture showed mixed maryanne CXR negative in 05-12 Tobacco use disorder 10/11/2004 012 Overview: Declined assistance with smoking cessation at this time for cost issues as of 12-11 PFTs 05-12: NL ratio, TLC in the 80% range, NL [place] (restriction secondary to weight) Started patches in 07-12 Quit documented as of this encounter (statuses as of 11/02/2022) [facility]04[facility] History of Past illness Narrative* Problem Noted Date Diagnosed Date Resolved Date Tracheostomy present 07/01/2015 018 Electrolyte imbalance 03/12/20152016 Overview: --Monitor electrolytes daily and replacing as indicated -- replaced K, Mg Hypernatremia 03/12/2015 03/19/2015 Overview: Patient given free water and sodium removed from TPN Hypernatremia 03/09/2015 03/14/2015 Overview: Sodium up to 156 over the weekend, now down to 144 with increasing free water -- No sodium or chloride in current bag Hyperbilirubinemia 03/03/2015 6 Overview: Mostly conjugated. CT af abd 02/28 w/ fluid around gall bladder, some sludge but no dilation. Improved today. 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 Coli in blood resistant to cipro, ampicillin, and gent (patient with PCN and cephalosporin allergy) CT 1/2 with enteric leak and stable fluid collections Remains afebrile -- continue aztreonam, flagyl, and vanco (levels and dosing per pharmacy) per ID recommendations x 3 weeks thru 04/03 -- COPAT Completed Acute kidney injury 02/28/2015 03/19/19 16 Overview: Resolved once sepsis resolved Metabolic acidosis 02/26/2015 6 Acute postoperative respiratory insufficiency 02/25/20 15 07/19/2016 Overview: History of smoking, COPD, asthma Intubated for Exlap 02/23- 02/25, required re-intubation x 2 more times Now status post Tracheostomy by ENT on Mar. Tolerated trach collar x 24 hrs -- continue scheduled Duonebs -- continue trach collar during days -- rest on vent overnight Electrolyte and fluid disorder 02/24/2015 03/03/2015 Overview: Checking lytes daily and replacing as needed. Class 2 obesity due to exces s calories with body mass index (BMI) of 38.0 to 38.9 in adult 12/18/2007 11/08/2016 Overview: Complicating ventilation, and recovery from surgical procedure Routine general medical exam ination at a health care facility 11/14/2006 02/25/2013 Overview: Empiric Bactrim in 12-11: culture showed mixed maryanne CXR negative in 05-12 Tobacco use disorder 10/11/2004 012 Overview: Declined assistance with smoking cessation at this time for cost issues as of 12-11 PFTs 05-12: NL ratio, TLC in the 80% range, NL [place] (restriction secondary to weight) Started patches in 07-12 Quit documented as of this encounter (statuses as of 11/17/2022) [facility] History of Past illness Narrative* Problem Noted Date Diagnosed Date Resolved Date Tracheostomy present 07/01/2015 018 Electrolyte imbalance 03/12/20152016 Overview: --Monitor electrolytes daily and replacing as indicated -- replaced K, Mg Hypernatremia 03/12/2015 03/19/2015 Overview: Patient given free water and sodium removed from TPN Hypernatremia 03/09/2015 03/14/2015 Overview: Sodium up to 156 over the weekend, now down to 144 with increasing free water -- No sodium or chloride in current bag Hyperbilirubinemia 03/03/2015 6 Overview: Mostly conjugated. CT af abd 02/28 w/ fluid around gall bladder, some sludge but no dilation. Improved today. 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 Coli in blood resistant to cipro, ampicillin, and gent (patient with PCN and cephalosporin allergy) CT 1/2 with enteric leak and stable fluid collections Remains afebrile -- continue aztreonam, flagyl, and vanco (levels and dosing per pharmacy) per ID recommendations x 3 weeks thru 04/03 -- COPAT Completed Acute kidney injury 02/28/2015 03/19/19 16 Overview: Resolved once sepsis resolved Metabolic acidosis 02/26/2015 6 Acute postoperative respiratory insufficiency 02/25/20 15 07/19/2016 Overview: History of smoking, COPD, asthma Intubated for Exlap 02/23- 02/25, required re-intubation x 2 more times Now status post Tracheostomy by ENT on Mar. Tolerated trach collar x 24 hrs -- continue scheduled Duonebs -- continue trach collar during days -- rest on vent overnight Electrolyte and fluid disorder 02/24/2015 03/03/2015 Overview: Checking lytes daily and replacing as needed. Class 2 obesity due to exces s calories with body mass index (BMI) of 38.0 to 38.9 in adult 12/18/2007 11/08/2016 Overview: Complicating ventilation, and recovery from surgical procedure [facility] 11/14/2006 02/25/2013 Overview: Empiric Bactrim in 12-11: culture showed mixed maryanne CXR negative in 05-12 Tobacco use disorder 10/11/2004 012 Overview: Declined assistance with smoking cessation at this time for cost issues as of 12-11 PFTs 05-12: NL ratio, TLC in the 80% range, NL [place] (restriction secondary to weight) Started patches in 07-12 Quit documented as of this encounter (statuses as of 11/18/2022) [facility]04-27-2016 History of Past illness Narrative* Problem Noted Date Diagnosed Date Resolved Date Tracheostomy present 07/01/2015 018 Electrolyte imbalance 03/12/20152016 Overview: --Monitor electrolytes daily and replacing as indicated -- replaced K, Mg Hypernatremia 03/12/2015 03/19/2015 Overview: Patient given free water and sodium removed from TPN Hypernatremia 03/09/2015 03/14/2015 Overview: Sodium up to 156 over the weekend, now down to 144 with increasing free water -- No sodium or chloride in current bag Hyperbilirubinemia 03/03/2015 6 Overview: Mostly conjugated. CT af abd 02/28 w/ fluid around gall bladder, some sludge but no dilation. Improved today. 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 Coli in blood resistant to cipro, ampicillin, and gent (patient with PCN and cephalosporin allergy) CT 1/2 with enteric leak and stable fluid collections Remains afebrile -- continue aztreonam, flagyl, and vanco (levels and dosing per pharmacy) per ID recommendations x 3 weeks thru 04/03 -- COPAT Completed Acute kidney injury 02/28/2015 03/19/19 16 Overview: Resolved once sepsis resolved Metabolic acidosis 02/26/2015 6 Acute postoperative respiratory insufficiency 02/25/20 15 07/19/2016 Overview: History of smoking, COPD, asthma Intubated for Exlap 02/23- 02/25, required re-intubation x 2 more times Now status post Tracheostomy by ENT on Mar. Tolerated trach collar x 24 hrs -- continue scheduled Duonebs -- continue trach collar during days -- rest on vent overnight Electrolyte and fluid disorder 02/24/2015 03/03/2015 Overview: Checking lytes daily and replacing as needed. Class 2 obesity due to exces s calories with body mass index (BMI) of 38.0 to 38.9 in adult 12/18/2007 11/08/2016 Overview: Complicating ventilation, and recovery from surgical procedure Routine general medical exam ination at a health care facility 11/14/2006 02/25/2013 Overview: Empiric Bactrim in 12-11: culture showed mixed maryanne CXR negative in 05-12 Tobacco use disorder 10/11/2004 012 Overview: Declined assistance with smoking cessation at this time for cost issues as of 12-11 PFTs 05-12: NL ratio, TLC in the 80% range, NL [place] (restriction secondary to weight) Started patches in 07-12 Quit documented as of this encounter (statuses as of 11/19/2022) [facility]04-27[facility]2016 History of Past illness Narrative* Problem Noted Date Diagnosed Date Resolved Date Tracheostomy present 07/01/2015 018 Electrolyte imbalance 03/12/20152016 Overview: --Monitor electrolytes daily and replacing as indicated -- replaced K, Mg Hypernatremia 03/12/2015 03/19/2015 Overview: Patient given free water and sodium removed from TPN Hypernatremia 03/09/2015 03/14/2015 Overview: Sodium up to 156 over the weekend, now down to 144 with increasing free water -- No sodium or chloride in current bag Hyperbilirubinemia 03/03/2015 6 Overview: Mostly conjugated. CT af abd 02/28 w/ fluid around gall bladder, some sludge but no dilation. Improved today. 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 Coli in blood resistant to cipro, ampicillin, and gent (patient with PCN and cephalosporin allergy) CT 1/2 with enteric leak and stable fluid collections Remains afebrile -- continue aztreonam, flagyl, and vanco (levels and dosing per pharmacy) per ID recommendations x 3 weeks thru 04/03 -- COPAT Completed Acute kidney injury 02/28/2015 03/19/19 16 Overview: Resolved once sepsis resolved Metabolic acidosis 02/26/2015 6 Acute postoperative respiratory insufficiency 02/25/20 15 07/19/2016 Overview: History of smoking, COPD, asthma Intubated for Exlap 02/23- 02/25, required re-intubation x 2 more times Now status post Tracheostomy by ENT on Mar.12 Tolerated trach collar x 24 hrs -- continue scheduled Duonebs -- continue trach collar during days -- rest on vent overnight Electrolyte and fluid disorder 02/24/2015 03/03/2015 Overview: Checking lytes daily and replacing as needed. Class 2 obesity due to exces s calories with body mass index (BMI) of 38.0 to 38.9 in adult 12/18/2007 11/08/2016 Overview: Complicating ventilation, and recovery from surgical procedure Routine general medical exam ination at a health care facility 11/14/2006 02/25/2013 Overview: Empiric Bactrim in 12-11: culture showed mixed maryanne CXR negative in 05-12 Tobacco use disorder 10/11/2004 012 Overview: Declined assistance with smoking cessation at this time for cost issues as of 12-11 PFTs 05-12: NL ratio, TLC in the 80% range, NL [place] (restriction secondary to weight) Started patches in 07-12 Quit documented as of this encounter (statuses as of 11/25/2022) [facility]04-[facility]2016 History of Past illness Narrative* Problem Noted Date Diagnosed Date Resolved Date Tracheostomy present 07/01/2015 018 Electrolyte imbalance 03/12/20152016 Overview: --Monitor electrolytes daily and replacing as indicated -- replaced K, Mg Hypernatremia 03/12/2015 03/19/2015 Overview: Patient given free water and sodium removed from TPN Hypernatremia 03/09/2015 03/14/2015 Overview: Sodium up to 156 over the weekend, now down to 144 with increasing free water -- No sodium or chloride in current bag Hyperbilirubinemia 03/03/2015 6 Overview: Mostly conjugated. CT af abd 02/28 w/ fluid around gall bladder, some sludge but no dilation. Improved today. 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 Coli in blood resistant to cipro, ampicillin, and gent (patient with PCN and cephalosporin allergy) CT 1/2 with enteric leak and stable fluid collections Remains afebrile -- continue aztreonam, flagyl, and vanco (levels and dosing per pharmacy) per ID recommendations x 3 weeks thru 04/03 -- COPAT Completed Acute kidney injury 02/28/2015 03/19/19 16 Overview: Resolved once sepsis resolved Metabolic acidosis 02/26/2015 6 Acute postoperative respiratory insufficiency 02/25/20 15 07/19/2016 Overview: History of smoking, COPD, asthma Intubated for Exlap 02/23- 02/25, required re-intubation x 2 more times Now status post Tracheostomy by ENT on Mar.12 Tolerated trach collar x 24 hrs -- continue scheduled Duonebs -- continue trach collar during days -- rest on vent overnight Electrolyte and fluid disorder 02/24/2015 03/03/2015 Overview: Checking lytes daily and replacing as needed. Class 2 obesity due to exces s calories with body mass index (BMI) of 38.0 to 38.9 in adult 12/18/2007 11/08/2016 Overview: Complicating ventilation, and recovery from surgical procedure Routine general medical exam ination at a [facility] facility 11/14/2006 02/25/2013 Overview: Empiric Bactrim in 12-11: culture showed mixed maryanne CXR negative in 05-12 Tobacco use disorder 10/11/2004 012 Overview: Declined assistance with smoking cessation at this time for cost issues as of 12-11 PFTs 05-12: NL ratio, TLC in the 80% range, NL [place] (restriction secondary to weight) Started patches in 07-12 Quit documented as of this encounter (statuses as of 12/22/2022) [facility]04-[facility]2016 History of Past illness Narrative* Problem Noted Date Diagnosed Date Resolved Date Tracheostomy present 07/01/2015 018 Electrolyte imbalance 03/12/20152016 Overview: --Monitor electrolytes daily and replacing as indicated -- replaced K, Mg Hypernatremia 03/12/2015 03/19/2015 Overview: Patient given free water and sodium removed from TPN Hypernatremia 03/09/2015 03/14/2015 Overview: Sodium up to 156 over the weekend, now down to 144 with increasing free water -- No sodium or chloride in current bag Hyperbilirubinemia 03/03/2015 01/03/201 6 Overview: Mostly conjugated. CT af abd 02/28 w/ fluid around gall bladder, some sludge but no dilation. Improved today. 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 Coli in blood resistant to cipro, ampicillin, and gent (patient with PCN and cephalosporin allergy) CT 1/2 with enteric leak and stable fluid collections Remains afebrile -- continue aztreonam, flagyl, and vanco (levels and dosing per pharmacy) per ID recommendations x 3 weeks thru 04/03 -- COPAT Completed Acute kidney injury 02/28/2015 03/19/19 16 Overview: Resolved once sepsis resolved Metabolic acidosis 02/26/2015 6 Acute postoperative respiratory insufficiency 02/25/20 15 07/19/2016 Overview: History of smoking, COPD, asthma Intubated for Exlap 02/23- 02/25, required re-intubation x 2 more times Now status post Tracheostomy by ENT on Mar. Tolerated trach collar x 24 hrs -- continue scheduled Duonebs -- continue trach collar during days -- rest on vent overnight Electrolyte and fluid disorder 02/24/2015 03/03/2015 Overview: Checking lytes daily and replacing as needed. Class 2 obesity due to exces s calories with body mass index (BMI) of 38.0 to 38.9 in adult 12/18/2007 11/08/2016 Overview: Complicating ventilation, and recovery from surgical procedure Routine general medical exam ination at a health care facility 11/14/2006 02/25/2013 Overview: Empiric Bactrim in 12-11: culture showed mixed maryanne CXR negative in 05-12 Tobacco use disorder 10/11/2004 012 Overview: Declined assistance with smoking cessation at this time for cost issues as of 12-11 PFTs 05-12: NL ratio, TLC in the 80% range, NL [place] (restriction secondary to weight) Started patches in 07-12 Quit documented as of this encounter (statuses as of 01/04/2023) [facility]04-[facility]2016 History of Past illness Narrative* Problem Noted Date Diagnosed Date Resolved Date Tracheostomy present 07/01/2015 018 Electrolyte imbalance 03/12/20152016 Overview: --Monitor electrolytes daily and replacing as indicated -- replaced K, Mg Hypernatremia 03/12/2015 03/19/2015 Overview: Patient given free water and sodium removed from TPN Hypernatremia 03/09/2015 03/14/2015 Overview: Sodium up to 156 over the weekend, now down to 144 with increasing free water -- No sodium or chloride in current bag Hyperbilirubinemia 03/03/2015 01//201 6 Overview: Mostly conjugated. CT af abd 02/28 w/ fluid around gall bladder, some sludge but no dilation. Improved today. 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 Coli in blood resistant to cipro, ampicillin, and gent (patient with PCN and cephalosporin allergy) CT 1/2 with enteric leak and stable fluid collections Remains afebrile -- continue aztreonam, flagyl, and vanco (levels and dosing per pharmacy) per ID recommendations x 3 weeks thru 04/03 -- COPAT Completed Acute kidney injury 02/28/2015 03/19/19 16 Overview: Resolved once sepsis resolved Metabolic acidosis 02/26/2015 6 Acute postoperative respiratory insufficiency 02/25/20 15 07/19/2016 Overview: History of smoking, COPD, asthma Intubated for Exlap 02/23- 02/25, required re-intubation x 2 more times Now status post Tracheostomy by ENT on Mar.12 Tolerated trach collar x 24 hrs -- continue scheduled Duonebs -- continue trach collar during days -- rest on vent overnight Electrolyte and fluid disorder 02/24/2015 03/03/2015 Overview: Checking lytes daily and replacing as needed. Class 2 obesity due to exces s calories with body mass index (BMI) of 38.0 to 38.9 in adult 12/18/2007 11/08/2016 Overview: Complicating ventilation, and recovery from surgical procedure Routine general medical exam ination at a health care facility 11/14/2006 02/25/2013 Overview: Empiric Bactrim in 12-11: culture showed mixed maryanne CXR negative in 05-12 Tobacco use disorder 10/11/2004 012 Overview: Declined assistance with smoking cessation at this time for cost issues as of 12-11 PFTs 05-12: NL ratio, TLC in the 80% range, NL [place] (restriction secondary to weight) Started patches in 07-12 Quit documented as of this encounter (statuses as of 01/09/2023) [facility]04[facility] History of Past illness Narrative* Problem Noted Date Diagnosed Date Resolved Date Tracheostomy present 07/01/2015 018 Electrolyte imbalance 03/12/20152016 Overview: --Monitor electrolytes daily and replacing as indicated -- replaced K, Mg Hypernatremia 03/12/2015 03/19/2015 Overview: Patient given free water and sodium removed from TPN Hypernatremia 03/09/2015 03/14/2015 Overview: Sodium up to 156 over the weekend, now down to 144 with increasing free water -- No sodium or chloride in current bag Hyperbilirubinemia 03/03/2015 6 Overview: Mostly conjugated. CT af abd 02/28 w/ fluid around gall bladder, some sludge but no dilation. Improved today. 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 Coli in blood resistant to cipro, ampicillin, and gent (patient with PCN and cephalosporin allergy) CT 1/2 with enteric leak and stable fluid collections Remains afebrile -- continue aztreonam, flagyl, and vanco (levels and dosing per pharmacy) per ID recommendations x 3 weeks thru 04/03 -- COPAT Completed Acute kidney injury 02/28/2015 03/19/19 16 Overview: Resolved once sepsis resolved Metabolic acidosis 02/26/2015 6 Acute postoperative respiratory insufficiency 02/25/20 15 07/19/2016 Overview: History of smoking, COPD, asthma Intubated for Exlap 02/23- 02/25, required re-intubation x 2 more times Now status post Tracheostomy by ENT on Mar. Tolerated trach collar x 24 hrs -- continue scheduled Duonebs -- continue trach collar during days -- rest on vent overnight Electrolyte and fluid disorder 02/24/2015 03/03/2015 Overview: Checking lytes daily and replacing as needed. Class 2 obesity due to exces s calories with body mass index (BMI) of 38.0 to 38.9 in adult 12/18/2007 11/08/2016 Overview: Complicating ventilation, and recovery from surgical procedure Routine [facility] 11/14/2006 02/25/2013 Overview: Empiric Bactrim in 12-11: culture showed mixed maryanne CXR negative in 05-12 Tobacco use disorder 10/11/2004 012 Overview: Declined assistance with smoking cessation at this time for cost issues as of 12-11 PFTs 05-12: NL ratio, TLC in the 80% range, NL [place] (restriction secondary to weight) Started patches in 07-12 Quit documented as of this encounter (statuses as of 01/10/2023) [facility]04[facility] History of Past illness Narrative* Problem Noted Date Diagnosed Date Resolved Date Tracheostomy present 07/01/2015 018 Electrolyte imbalance 03/12/20152016 Overview: --Monitor electrolytes daily and replacing as indicated -- replaced K, Mg Hypernatremia 03/12/2015 03/19/2015 Overview: Patient given free water and sodium removed from TPN Hypernatremia 03/09/2015 03/14/2015 Overview: Sodium up to 156 over the weekend, now down to 144 with increasing free water -- No sodium or chloride in current bag Hyperbilirubinemia 03/03/2015 6 Overview: Mostly conjugated. CT af abd 02/28 w/ fluid around gall bladder, some sludge but no dilation. Improved today. 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 Coli in blood resistant to cipro, ampicillin, and gent (patient with PCN and cephalosporin allergy) CT 1/2 with enteric leak and stable fluid collections Remains afebrile -- continue aztreonam, flagyl, and vanco (levels and dosing per pharmacy) per ID recommendations x 3 weeks thru 04/03 -- COPAT Completed Acute kidney injury 02/28/2015 03/19/19 16 Overview: Resolved once sepsis resolved Metabolic acidosis 02/26/2015 6 Acute postoperative respiratory insufficiency 02/25/20 15 07/19/2016 Overview: History of smoking, COPD, asthma Intubated for Exlap 02/23- 02/25, required re-intubation x 2 more times Now status post Tracheostomy by ENT on Mar.12 Tolerated trach collar x 24 hrs -- continue scheduled Duonebs -- continue trach collar during days -- rest on vent overnight Electrolyte and fluid disorder 02/24/2015 03/03/2015 Overview: Checking lytes daily and replacing as needed. Class 2 obesity due to exces s calories with body mass index (BMI) of 38.0 to 38.9 in adult 12/18/2007 11/08/2016 Overview: Complicating ventilation, and recovery from surgical procedure Routine [facility] 11/14/2006 02/25/2013 Overview: Empiric Bactrim in 12-11: culture showed mixed maryanne CXR negative in 05-12 Tobacco use disorder 10/11/2004 012 Overview: Declined assistance with smoking cessation at this time for cost issues as of 12-11 PFTs 05-12: NL ratio, TLC in the 80% range, NL [place] (restriction secondary to weight) Started patches in 07-12 Quit documented as of this encounter (statuses as of 01/10/2023) [facility]04[facility] History of Past illness Narrative* Problem Noted Date Diagnosed Date Resolved Date Tracheostomy present 07/01/2015 018 Electrolyte imbalance 03/12/20152016 Overview: --Monitor electrolytes daily and replacing as indicated -- replaced K, Mg Hypernatremia 03/12/2015 03/19/2015 Overview: Patient given free water and sodium removed from TPN Hypernatremia 03/09/2015 03/14/2015 Overview: Sodium up to 156 over the weekend, now down to 144 with increasing free water -- No sodium or chloride in current bag Hyperbilirubinemia 03/03/2015 01//201 6 Overview: Mostly conjugated. CT af abd 02/28 w/ fluid around gall bladder, some sludge but no dilation. Improved today. 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 Coli in blood resistant to cipro, ampicillin, and gent (patient with PCN and cephalosporin allergy) CT 1/2 with enteric leak and stable fluid collections Remains afebrile -- continue aztreonam, flagyl, and vanco (levels and dosing per pharmacy) per ID recommendations x 3 weeks thru 04/03 -- COPAT Completed Acute kidney injury 02/28/2015 03/19/19 16 Overview: Resolved once sepsis resolved Metabolic acidosis 02/26/2015 6 Acute postoperative respiratory insufficiency 02/25/20 15 07/19/2016 Overview: History of smoking, COPD, asthma Intubated for Exlap 02/23- 02/25, required re-intubation x 2 more times Now status post Tracheostomy by ENT on Mar. Tolerated trach collar x 24 hrs -- continue scheduled Duonebs -- continue trach collar during days -- rest on vent overnight Electrolyte and fluid disorder 02/24/2015 03/03/2015 Overview: Checking lytes daily and replacing as needed. Class 2 obesity due to exces s calories with body mass index (BMI) of 38.0 to 38.9 in adult 12/18/2007 11/08/2016 Overview: Complicating ventilation, and recovery from surgical procedure Routine general medical exam ination at a health care facility 11/14/2006 02/25/2013 Overview: Empiric Bactrim in 12-11: culture showed mixed maryanne CXR negative in 05-12 Tobacco use disorder 10/11/2004 012 Overview: Declined assistance with smoking cessation at this time for cost issues as of 12-11 PFTs 05-12: NL ratio, TLC in the 80% range, NL [place] (restriction secondary to weight) Started patches in 07-12 Quit documented as of this encounter (statuses as of 01/11/2023) [facility]04-27-2016 History of Past illness Narrative* Problem Noted Date Diagnosed Date Resolved Date Tracheostomy present 07/01/201507/24/ 018 Electrolyte imbalance 03/12/20152016 Overview: --Monitor electrolytes daily and replacing as indicated -- replaced K, Mg Hypernatremia 03/12/2015 03/19/2015 Overview: Patient given free water and sodium removed from TPN Hypernatremia 03/09/2015 03/14/2015 Overview: Sodium up to 156 over the weekend, now down to 144 with increasing free water -- No sodium or chloride in current bag Hyperbilirubinemia 03/03/2015 6 Overview: Mostly conjugated. CT af abd 02/28 w/ fluid around gall bladder, some sludge but no dilation. Improved today. 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 Coli in blood resistant to cipro, ampicillin, and gent (patient with PCN and cephalosporin allergy) CT 1/2 with enteric leak and stable fluid collections Remains afebrile -- continue aztreonam, flagyl, and vanco (levels and dosing per pharmacy) per ID recommendations x 3 weeks thru 04/03 -- COPAT Completed Acute kidney injury 02/28/2015 03/19/19 16 Overview: Resolved once sepsis resolved Metabolic acidosis 02/26/2015 6 Acute postoperative respiratory insufficiency 02/25/20 15 07/19/2016 Overview: History of smoking, COPD, asthma Intubated for Exlap 02/23- 02/25, required re-intubation x 2 more times Now status post Tracheostomy by ENT on Mar.12 Tolerated trach collar x 24 hrs -- continue scheduled Duonebs -- continue trach collar during days -- rest on vent overnight Electrolyte and fluid disorder 02/24/2015 03/03/2015 Overview: Checking lytes daily and replacing as needed. Class 2 obesity due to exces s calories with body mass index (BMI) of 38.0 to 38.9 in adult 12/18/2007 11/08/2016 Overview: Complicating ventilation, and recovery from surgical procedure Routine general medical exam ination at a [facility] facility 11/14/2006 02/25/2013 Overview: Empiric Bactrim in 12-11: culture showed mixed maryanne CXR negative in 05-12 Tobacco use disorder 10/11/2004 012 Overview: Declined assistance with smoking cessation at this time for cost issues as of 12-11 PFTs 05-12: NL ratio, TLC in the 80% range, NL [place] (restriction secondary to weight) Started patches in 07-12 Quit documented as of this encounter (statuses as of 01/13/2023) [facility]04-27-2016 History of Past illness Narrative* Problem Noted Date Diagnosed Date Resolved Date Tracheostomy present 07/01/2015 018 Electrolyte imbalance 03/12/20152016 Overview: --Monitor electrolytes daily and replacing as indicated -- replaced K, Mg Hypernatremia 03/12/2015 03/19/2015 Overview: Patient given free water and sodium removed from TPN Hypernatremia 03/09/2015 03/14/2015 Overview: Sodium up to 156 over the weekend, now down to 144 with increasing free water -- No sodium or chloride in current bag Hyperbilirubinemia 03/03/2015 6 Overview: Mostly conjugated. CT af abd 02/28 w/ fluid around gall bladder, some sludge but no dilation. Improved today. 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 Coli in blood resistant to cipro, ampicillin, and gent (patient with PCN and cephalosporin allergy) CT 1/2 with enteric leak and stable fluid collections Remains afebrile -- continue aztreonam, flagyl, and vanco (levels and dosing per pharmacy) per ID recommendations x 3 weeks thru 04/03 -- COPAT Completed Acute kidney injury 02/28/2015 03/19/19 16 Overview: Resolved once sepsis resolved Metabolic acidosis 02/26/2015 6 Acute postoperative respiratory insufficiency 02/25/20 15 07/19/2016 Overview: History of smoking, COPD, asthma Intubated for Exlap 02/23- 02/25, required re-intubation x 2 more times Now status post Tracheostomy by ENT on Mar. Tolerated trach collar x 24 hrs -- continue scheduled Duonebs -- continue trach collar during days -- rest on vent overnight Electrolyte and fluid disorder 02/24/2015 03/03/2015 Overview: Checking lytes daily and replacing as needed. Class 2 obesity due to exces s calories with body mass index (BMI) of 38.0 to 38.9 in adult 12/18/2007 11/08/2016 Overview: Complicating ventilation, and recovery from surgical procedure [facility] 11/14/2006 02/25/2013 Overview: Empiric Bactrim in 12-11: culture showed mixed maryanne CXR negative in 05-12 Tobacco use disorder 10/11/2004 012 Overview: Declined assistance with smoking cessation at this time for cost issues as of 12-11 PFTs 05-12: NL ratio, TLC in the 80% range, NL [place] (restriction secondary to weight) Started patches in 07-12 Quit documented as of this encounter (statuses as of 01/18/2023) [facility]04-27-2016 History of Past illness Narrative* Problem Noted Date Diagnosed Date Resolved Date Tracheostomy present 07/01/2015 018 Electrolyte imbalance 03/12/20152016 Overview: --Monitor electrolytes daily and replacing as indicated -- replaced K, Mg Hypernatremia 03/12/2015 03/19/2015 Overview: Patient given free water and sodium removed from TPN Hypernatremia 03/09/2015 03/14/2015 Overview: Sodium up to 156 over the weekend, now down to 144 with increasing free water -- No sodium or chloride in current bag Hyperbilirubinemia 03/03/2015 01/03/201 6 Overview: Mostly conjugated. CT af abd 02/28 w/ fluid around gall bladder, some sludge but no dilation. Improved today. 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 Coli in blood resistant to cipro, ampicillin, and gent (patient with PCN and cephalosporin allergy) CT 1/2 with enteric leak and stable fluid collections Remains afebrile -- continue aztreonam, flagyl, and vanco (levels and dosing per pharmacy) per ID recommendations x 3 weeks thru 04/03 -- COPAT Completed Acute kidney injury 02/28/2015 03/19/19 16 Overview: Resolved once sepsis resolved Metabolic acidosis 02/26/2015 6 Acute postoperative respiratory insufficiency 02/25/20 15 07/19/2016 Overview: History of smoking, COPD, asthma Intubated for Exlap 02/23- 02/25, required re-intubation x 2 more times Now status post Tracheostomy by ENT on Mar. Tolerated trach collar x 24 hrs -- continue scheduled Duonebs -- continue trach collar during days -- rest on vent overnight Electrolyte and fluid disorder 02/24/2015 03/03/2015 Overview: Checking lytes daily and replacing as needed. Class 2 obesity due to exces s calories with body mass index (BMI) of 38.0 to 38.9 in adult 12/18/2007 11/08/2016 Overview: Complicating ventilation, and recovery from surgical procedure Routine general medical exam ination at a health care facility 11/14/2006 02/25/2013 Overview: Empiric Bactrim in 12-11: culture showed mixed maryanne CXR negative in 05-12 Tobacco use disorder 10/11/2004 012 Overview: Declined assistance with smoking cessation at this time for cost issues as of 12-11 PFTs 05-12: NL ratio, TLC in the 80% range, NL [place] (restriction secondary to weight) Started patches in 07-12 Quit documented as of this encounter (statuses as of 01/25/2023) [facility]04-[facility]2016 History of Past illness Narrative* Problem Noted Date Diagnosed Date Resolved Date Tracheostomy present 07/01/201507/24/ 018 Electrolyte imbalance 03/12/20152016 Overview: --Monitor electrolytes daily and replacing as indicated -- replaced K, Mg Hypernatremia 03/12/2015 03/19/2015 Overview: Patient given free water and sodium removed from TPN Hypernatremia 03/09/2015 03/14/2015 Overview: Sodium up to 156 over the weekend, now down to 144 with increasing free water -- No sodium or chloride in current bag Hyperbilirubinemia 03/03/2015 6 Overview: Mostly conjugated. CT af abd 02/28 w/ fluid around gall bladder, some sludge but no dilation. Improved today. 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 Coli in blood resistant to cipro, ampicillin, and gent (patient with PCN and cephalosporin allergy) CT 1/2 with enteric leak and stable fluid collections Remains afebrile -- continue aztreonam, flagyl, and vanco (levels and dosing per pharmacy) per ID recommendations x 3 weeks thru 04/03 -- COPAT Completed Acute kidney injury 02/28/2015 03/19/19 16 Overview: Resolved once sepsis resolved Metabolic acidosis 02/26/2015 6 Acute postoperative respiratory insufficiency 02/25/20 15 07/19/2016 Overview: History of smoking, COPD, asthma Intubated for Exlap 02/23- 02/25, required re-intubation x 2 more times Now status post Tracheostomy by ENT on Mar. Tolerated trach collar x 24 hrs -- continue scheduled Duonebs -- continue trach collar during days -- rest on vent overnight Electrolyte and fluid disorder 02/24/2015 03/03/2015 Overview: Checking lytes daily and replacing as needed. Class 2 obesity due to exces s calories with body mass index (BMI) of 38.0 to 38.9 in adult 12/18/2007 11/08/2016 Overview: Complicating ventilation, and recovery from surgical procedure Routine general medical exam ination at a health care facility 11/14/2006 02/25/2013 Overview: Empiric Bactrim in 12-11: culture showed mixed maryanne CXR negative in 05-12 Tobacco use disorder 10/11/2004 012 Overview: Declined assistance with smoking cessation at this time for cost issues as of 12-11 PFTs 05-12: NL ratio, TLC in the 80% range, NL [place] (restriction secondary to weight) Started patches in 07-12 Quit documented as of this encounter (statuses as of 02/04/2023) [facility]04-[facility]2016 History of Past illness Narrative* Problem Noted Date Diagnosed Date Resolved Date Tracheostomy present 07/01/2015 018 Electrolyte imbalance 03/12/20152016 Overview: --Monitor electrolytes daily and replacing as indicated -- replaced K, Mg Hypernatremia 03/12/2015 03/19/2015 Overview: Patient given free water and sodium removed from TPN Hypernatremia 03/09/2015 03/14/2015 Overview: Sodium up to 156 over the weekend, now down to 144 with increasing free water -- No sodium or chloride in current bag Hyperbilirubinemia 03/03/2015 6 Overview: Mostly conjugated. CT af abd 02/28 w/ fluid around gall bladder, some sludge but no dilation. Improved today. 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 Coli in blood resistant to cipro, ampicillin, and gent (patient with PCN and cephalosporin allergy) CT 1/2 with enteric leak and stable fluid collections Remains afebrile -- continue aztreonam, flagyl, and vanco (levels and dosing per pharmacy) per ID recommendations x 3 weeks thru 04/03 -- COPAT Completed Acute kidney injury 02/28/2015 03/19/19 16 Overview: Resolved once sepsis resolved Metabolic acidosis 02/26/2015 6 Acute postoperative respiratory insufficiency 02/25/20 15 07/19/2016 Overview: History of smoking, COPD, asthma Intubated for Exlap 02/23- 02/25, required re-intubation x 2 more times Now status post Tracheostomy by ENT on Mar. Tolerated trach collar x 24 hrs -- continue scheduled Duonebs -- continue trach collar during days -- rest on vent overnight Electrolyte and fluid disorder 02/24/2015 03/03/2015 Overview: Checking lytes daily and replacing as needed. Class 2 obesity due to exces s calories with body mass index (BMI) of 38.0 to 38.9 in adult 12/18/2007 11/08/2016 Overview: Complicating ventilation, and recovery from surgical procedure Routine [facility] 11/14/2006 02/25/2013 Overview: Empiric Bactrim in 12-11: culture showed mixed maryanne CXR negative in 05-12 Tobacco use disorder 10/11/2004 012 Overview: Declined assistance with smoking cessation at this time for cost issues as of 12-11 PFTs 05-12: NL ratio, TLC in the 80% range, NL [place] (restriction secondary to weight) Started patches in 07-12 Quit documented as of this encounter (statuses as of 02/08/2023) [facility]04-[facility]2016 History of Past illness Narrative* Problem Noted Date Diagnosed Date Resolved Date Tracheostomy present 07/01/2015 018 Electrolyte imbalance 03/12/20152016 Overview: --Monitor electrolytes daily and replacing as indicated -- replaced K, Mg Hypernatremia 03/12/2015 03/19/2015 Overview: Patient given free water and sodium removed from TPN Hypernatremia 03/09/2015 03/14/2015 Overview: Sodium up to 156 over the weekend, now down to 144 with increasing free water -- No sodium or chloride in current bag Hyperbilirubinemia 03/03/201503/08/ 6 Overview: Mostly conjugated. CT af abd 02/28 w/ fluid around gall bladder, some sludge but no dilation. Improved today. 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 Coli in blood resistant to cipro, ampicillin, and gent (patient with PCN and cephalosporin allergy) CT 1/2 with enteric leak and stable fluid collections Remains afebrile -- continue aztreonam, flagyl, and vanco (levels and dosing per pharmacy) per ID recommendations x 3 weeks thru 04/03 -- COPAT Completed Acute kidney injury 02/28/2015 03/19/19 16 Overview: Resolved once sepsis resolved Metabolic acidosis 02/26/2015 6 Acute postoperative respiratory insufficiency 02/25/20 15 07/19/2016 Overview: History of smoking, COPD, asthma Intubated for Exlap 02/23- 02/25, required re-intubation x 2 more times Now status post Tracheostomy by ENT on Mar. Tolerated trach collar x 24 hrs -- continue scheduled Duonebs -- continue trach collar during days -- rest on vent overnight Electrolyte and fluid disorder 02/24/2015 03/03/2015 Overview: Checking lytes daily and replacing as needed. Class 2 obesity due to exces s calories with body mass index (BMI) of 38.0 to 38.9 in adult 12/18/2007 11/08/2016 Overview: Complicating ventilation, and recovery from surgical procedure Routine general medical exam ination at a health care facility 11/14/2006 02/25/2013 Overview: Empiric Bactrim in 12-11: culture showed mixed maryanne CXR negative in 05-12 Tobacco use disorder 10/11/2004 012 Overview: Declined assistance with smoking cessation at this time for cost issues as of 12-11 PFTs 05-12: NL ratio, TLC in the 80% range, NL [place] (restriction secondary to weight) Started patches in 07-12 Quit documented as of this encounter (statuses as of 02/10/2023) [facility]04[facility]2016 History of Past illness Narrative* Problem Noted Date Diagnosed Date Resolved Date Tracheostomy present 07/01/2015 05/21/2 018 Electrolyte imbalance 03/12/20152016 Overview: --Monitor electrolytes daily and replacing as indicated -- replaced K, Mg Hypernatremia 03/12/2015 03/19/2015 Overview: Patient given free water and sodium removed from TPN Hypernatremia 03/09/2015 03/14/2015 Overview: Sodium up to 156 over the weekend, now down to 144 with increasing free water -- No sodium or chloride in current bag Hyperbilirubinemia 03/03/2015 6 Overview: Mostly conjugated. CT af abd 02/28 w/ fluid around gall bladder, some sludge but no dilation. Improved today. 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 Coli in blood resistant to cipro, ampicillin, and gent (patient with PCN and cephalosporin allergy) CT 1/2 with enteric leak and stable fluid collections Remains afebrile -- continue aztreonam, flagyl, and vanco (levels and dosing per pharmacy) per ID recommendations x 3 weeks thru 04/03 -- COPAT Completed Acute kidney injury 02/28/2015 03/19/19 16 Overview: Resolved once sepsis resolved Metabolic acidosis 02/26/2015 6 Acute postoperative respiratory insufficiency 02/25/20 15 07/19/2016 Overview: History of smoking, COPD, asthma Intubated for Exlap 02/23- 12/23, required re-intubation x 2 more times Now status post Tracheostomy by ENT on Mar. Tolerated trach collar x 24 hrs -- continue scheduled Duonebs -- continue trach collar during days -- rest on vent overnight Electrolyte and fluid disorder 02/24/2015 03/03/2015 Overview: Checking lytes daily and replacing as needed. Class 2 obesity due to exces s calories with body mass index (BMI) of 38.0 to 38.9 in adult 12/18/2007 11/08/2016 Overview: Complicating ventilation, and recovery from surgical procedure Routine [facility] 11/14/2006 02/25/2013 Overview: Empiric Bactrim in 12-11: culture showed mixed maryanne CXR negative in 05-12 Tobacco use disorder 10/11/2004 012 Overview: Declined assistance with smoking cessation at this time for cost issues as of 12-11 PFTs 05-12: NL ratio, TLC in the 80% range, NL [place] (restriction secondary to weight) Started patches in 07-12 Quit documented as of this encounter (statuses as of 02/14/2023) [facility]04[facility] History of Past illness Narrative* Problem Noted Date Diagnosed Date Resolved Date Tracheostomy present 07/01/2015 018 Electrolyte imbalance 03/12/20152016 Overview: --Monitor electrolytes daily and replacing as indicated -- replaced K, Mg Hypernatremia 03/12/2015 03/19/2015 Overview: Patient given free water and sodium removed from TPN Hypernatremia 03/09/2015 03/14/2015 Overview: Sodium up to 156 over the weekend, now down to 144 with increasing free water -- No sodium or chloride in current bag Hyperbilirubinemia 03/03/2015 6 Overview: Mostly conjugated. CT af abd 02/28 w/ fluid around gall bladder, some sludge but no dilation. Improved today. 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 Coli in blood resistant to cipro, ampicillin, and gent (patient with PCN and cephalosporin allergy) CT 1/2 with enteric leak and stable fluid collections Remains afebrile -- continue aztreonam, flagyl, and vanco (levels and dosing per pharmacy) per ID recommendations x 3 weeks thru 04/03 -- COPAT Completed Acute kidney injury 02/28/2015 03/19/19 16 Overview: Resolved once sepsis resolved Metabolic acidosis 02/26/2015 6 Acute postoperative respiratory insufficiency 02/25/20 15 07/19/2016 Overview: History of smoking, COPD, asthma Intubated for Exlap 02/23- 02/25, required re-intubation x 2 more times Now status post Tracheostomy by ENT on Mar. Tolerated trach collar x 24 hrs -- continue scheduled Duonebs -- continue trach collar during days -- rest on vent overnight Electrolyte and fluid disorder 02/24/2015 03/03/2015 Overview: Checking lytes daily and replacing as needed. Class 2 obesity due to exces s calories with body mass index (BMI) of 38.0 to 38.9 in adult 12/18/2007 11/08/2016 Overview: Complicating ventilation, and recovery from surgical procedure Routine general medical exam ination at a health care facility 11/14/2006 02/25/2013 Overview: Empiric Bactrim in 12-11: culture showed mixed maryanne CXR negative in 05-12 Tobacco use disorder 10/11/2004 012 Overview: Declined assistance with smoking cessation at this time for cost issues as of 12-11 PFTs 05-12: NL ratio, TLC in the 80% range, NL [place] (restriction secondary to weight) Started patches in 07-12 Quit documented as of this encounter (statuses as of 02/14/2023) [facility]04[facility] History of Past illness Narrative* Problem Noted Date Diagnosed Date Resolved Date Tracheostomy present 07/01/2015 018 Electrolyte imbalance 03/12/20152016 Overview: --Monitor electrolytes daily and replacing as indicated -- replaced K, Mg Hypernatremia 03/12/2015 03/19/2015 Overview: Patient given free water and sodium removed from TPN Hypernatremia 03/09/2015 03/14/2015 Overview: Sodium up to 156 over the weekend, now down to 144 with increasing free water -- No sodium or chloride in current bag Hyperbilirubinemia 03/03/2015 6 Overview: Mostly conjugated. CT af abd 02/28 w/ fluid around gall bladder, some sludge but no dilation. Improved today. 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 Coli in blood resistant to cipro, ampicillin, and gent (patient with PCN and cephalosporin allergy) CT 1/2 with enteric leak and stable fluid collections Remains afebrile -- continue aztreonam, flagyl, and vanco (levels and dosing per pharmacy) per ID recommendations x 3 weeks thru 04/03 -- COPAT Completed Acute kidney injury 02/28/2015 03/19/19 16 Overview: Resolved once sepsis resolved Metabolic acidosis 02/26/2015 6 Acute postoperative respiratory insufficiency 02/25/20 15 07/19/2016 Overview: History of smoking, COPD, asthma Intubated for Exlap 02/23- 02/25, required re-intubation x 2 more times Now status post Tracheostomy by ENT on Mar. Tolerated trach collar x 24 hrs -- continue scheduled Duonebs -- continue trach collar during days -- rest on vent overnight Electrolyte and fluid disorder 02/24/2015 03/03/2015 Overview: Checking lytes daily and replacing as needed. Class 2 obesity due to exces s calories with body mass index (BMI) of 38.0 to 38.9 in adult 12/18/2007 11/08/2016 Overview: Complicating ventilation, and recovery from surgical procedure Routine general medical exam ination at a health care facility 11/14/2006 02/25/2013 Overview: Empiric Bactrim in 12-11: culture showed mixed maryanne CXR negative in 05-12 Tobacco use disorder 10/11/2004 012 Overview: Declined assistance with smoking cessation at this time for cost issues as of 12-11 PFTs 05-12: NL ratio, TLC in the 80% range, NL BONITA/VA (restriction secondary to weight) Started patches in 07-12 Quit documented as of this encounter (statuses as of 04/03/2023) [facility] Anal cellulitis- Primary Abscess of anal and rectal regions Anal fissure documented [facility] this 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 [facility] Diagnosis 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 [facility]* Diagnosis Cough- Primary Intermittent asthma without complication, unspecified asthma severity [facility] Diagnosis Intermittent asthma without complication, unspecified asthma severity- Primary [facility]* Diagnosis Sinobronchitis- Primary Unspecified sinusitis (chronic) [facility] Diagnosis Contact dermatitis due to adhesive bandage [facility] Diagnosis Acute bronchitis with chronic obstructive pulmonary disease (COPD) (HCC)- Primary Obstructive chronic bronchitis with acute bronchitis [facility] Diagnosis Encounter for screening mammogram for breast cancer [facility] Diagnosis Diarrhea of presumed infectious origin [facility] Diagnosis Cough Intermittent asthma without complication, unspecified asthma severity [facility]* Diagnosis Onychomycosis- Primary Dermatophytosis of nail Pain in toe of right foot Pain in limb Pain in toe of left foot Pain in limb Other diabetic neurological complication associated with type 2 diabetes mellitus (HCC) Hammer toe of left foot Venous insufficiency Unspecified venous (peripheral) insufficiency [facility] Diagnosis Hyperlipidemia associated with type 2 diabetes mellitus (HCC) [facility]* Diagnosis Mouth sore- Primary Other and unspecified diseases of the oral soft tissues [facility] Diagnosis COPD (chronic obstructive pulmonary disease) with acute bronchitis (HCC)- Primary Obstructive chronic bronchitis with acute bronchitis [facility] Diagnosis Onychomycosis- Primary Dermatophytosis of nail Pain in toe of right foot Pain in limb Pain in toe of left foot Pain in limb Other diabetic neurological complication associated with type 2 diabetes mellitus (HCC) [facility] Diagnosis Diarrhea of presumed infectious origin [facility] Diagnosis Contact dermatitis due to adhesive bandage [facility] Diagnosis Burning with urination- Primary Dysuria Acute right ankle pain Rash Rash and other nonspecific skin eruption [facility] Diagnosis Allergic contact dermatitis due to adhesives Contact dermatitis and other eczema due to other chemical products Diarrhea of presumed infectious origin [facility] Diagnosis Onychomycosis- Primary Dermatophytosis of nail Pain in toe of right foot Pain in limb Pain in toe of left foot Pain in limb Other diabetic neurological complication associated with type 2 diabetes mellitus (HCC) [facility] Diagnosis Sore throat- Primary Acute pharyngitis [facility] Diagnosis Hyperlipidemia associated with type 2 diabetes mellitus (HCC) [facility] Diagnosis Wheezing- Primary Acute cough Chronic obstructive pulmonary disease, unspecified COPD type (HCC) Asthma with COPD with exacerbation (HCC) Chronic obstructive asthma with exacerbation [facility] Diagnosis Left hip pain- Primary Pain in joint, pelvic region and thigh Pharyngitis, unspecified etiology BV (bacterial vaginosis) Vaginitis and vulvovaginitis, unspecified Dysuria Anal fissure [facility] Diagnosis Contact dermatitis due to adhesive bandage Allergic contact dermatitis due to adhesives Contact dermatitis and other eczema due to other chemical products [facility] Diagnosis Onychomycosis- Primary Dermatophytosis of nail Pain in toe of right foot Pain in limb Pain in toe of left foot Pain in limb Other diabetic neurological complication associated with type 2 diabetes mellitus (HCC) [facility] Diagnosis Paronychia of finger, left- Primary [facility] Diagnosis Wheezing Acute cough Chronic obstructive pulmonary disease, unspecified COPD type (HCC) Asthma with COPD with exacerbation (HCC) Chronic obstructive asthma with exacerbation documented in this encounter [facility]* Diagnosis Viral illness- Primary Unspecified viral infection, in conditions classified elsewhere and of unspecified site documented in this encounter [facility] note* Diagnosis URI with cough and congestion- Primary documented in this encounter [facility] note* Diagnosis Ileostomy in place (HCC)- Primary Ileostomy status documented in this encounter [facility]* Diagnosis Hyperlipidemia associated with type 2 diabetes mellitus (HCC) documented in this encounter [facility] note* Diagnosis Abscess- Primary Cellulitis and abscess of unspecified site documented in this encounter [facility] note* Diagnosis Subacute cough- Primary Cough documented in this encounter [facility] note* Diagnosis Subacute cough Cough documented in this encounter [facility] for referral (narrative)* Diagnostic Procedure Only (Routine) - Pending Review Specialty Diagnoses / Procedures Referred By Shania rendon Referred To Contact [facility] Diagnoses Encounter for screening mammogram for breast cancer Procedures URIEL SCREENING SCREENING MAMMOGRAPHY BI 2-VIEW BREAST INC CAD Tiff Pearson MD [address] [place] [address] [facility] [address] [place] [address] Referral ID Status Reason Start Date Expiration Date Visits Requested Visits Authorized [id number] Pending Review Auto-Generat ed Referral 09/01/2021 10/01/2022 1 1 [facility] for referral (narrative)* Diagnostic Procedure Only (Urgent) - Pending Review Specialty Diagnoses / Procedures Referred By Contac t Referred To Contact [facility] Diagnoses Paronychia of finger, left Procedures XR DIGIT GENERAL 3V FRONTAL/LAT/OBL LEFT RADEX FINGR MINIMUM 2 VIEWS Lisa Tinoco PA-C [address] [place] [address] [place] [id number] Referral ID Status Reason Start Date Expiration Date Visits Requested Visits Authorized [id number] Pending Review Auto-Generat ed Referral 01/08/2023 02/07/[address] [facility] Advance Directives No Advanced Directives Records FoundDocuments on File Type Date Recorded Patient Fur Dry Cleaner Hand Expl anation Advance Directive(s) Advance Directive(s) 09/22/2016 5:28 PM Advance Directive(s) 09/22/2016 5:38 PM Advance Directive(s) 09/20/2016 8:10 PM Advance Directive(s) 09/11/2016 11:22 AM Advance Directive(s) 12/01/2015 10:35 AM Advance Directive(s) 04/20/2006 12:00 AM Documents on File Type Date Recorded Patient Fur Dry Cleaner Hand Expl anation Advance Directive(s) Advance Directive(s) 09/22/2016 5:28 PM Advance Directive(s) 09/22/2016 5:38 PM Advance Directive(s) 09/20/2016 8:10 PM Advance Directive(s) 09/11/2016 11:22 AM Advance Directive(s) 12/01/2015 10:35 AM Advance Directive(s) 04/20/2006 12:00 AM Documents on File Type Date Recorded Patient Fur Dry Cleaner Hand Expl anation Advance Directive(s) Advance Directive(s) 08/01/2021 12:51 PM Advance Directive(s) 09/22/2016 5:28 PM Advance Directive(s) 09/22/2016 5:38 PM Advance Directive(s) 09/20/2016 8:10 PM Advance Directive(s) 09/11/2016 11:22 AM Advance Directive(s) 12/01/2015 10:35 AM Advance Directive(s) 04/20/2006 12:00 AM Latest Code Status on File Code Status Date Activated Date Inactivated Comments Full Code 08/01/2021 8:18 PM Full Code Order Discussed With: Patient Latest Code Status on File Code Status Date Activated Date Inactivated Comments Full Code 08/01/2021 8:18 PM 08/05/2021 9:22 PM Documents on File Type Date Recorded Patient Fur Dry Cleaner Hand Expl anation Advance Directive(s) Advance Directive(s) 08/01/2021 12:51 PM Advance Directive(s) 09/22/2016 5:28 PM Advance Directive(s) 09/22/2016 5:38 PM Advance Directive(s) 09/20/2016 8:10 PM Advance Directive(s) 09/11/2016 11:22 AM Advance Directive(s) 12/01/2015 10:35 AM Advance Directive(s) 04/20/2006 12:00 AM Latest Code Status on File Code Status Date Activated Date Inactivated Comments Full Code 08/01/2021 8:18 PM 08/05/2021 9:22 PM Documents on File Type Date Recorded Patient Fur Dry Cleaner Hand Expl anation Advance Directive(s) 09/22/2016 5:28 PM Advance Directive(s) 09/22/2016 5:38 PM Advance Directive(s) 04/20/2006 Documents on File Type Date Recorded Patient Fur Dry Cleaner Hand Expl anation Advance Directive(s) 09/22/2016 5:38 PM Advance Directive(s) 09/22/2016 5:28 PM Advance Directive(s) 04/20/2006 Latest Code Status on File Code Status Date Activated Date Inactivated Comments Full Code 08/01/2021 8:18 PM 08/05/2021 9:22 PM Question Answer Comments Full Code Order Discussed With: Patient Documents on File Type Date Recorded Patient Fur Dry Cleaner Hand Expl anation Advance Directive(s) 09/22/2016 5:38 PM Advance Directive(s) 09/22/2016 5:28 PM Advance Directive(s) 04/20/2006 Latest Code Status on File Code Status Date Activated Date Inactivated Comments Full Code 08/01/2021 8:18 PM 08/05/2021 9:22 PM Question Answer Comments Full Code Order Discussed With: Patient Reason for Referral Specialty Diagnoses / Procedures Referred By Shania rendon Referred To Contact Rupal Gabriel APRN.HORIZONTAL DRILL OPERATOR [address] [place] [address] Referral ID Status Reason Start Date Expiration Date Visits Re quested Visits Authorized [id number] Closed 1 1 Specialty Diagnoses / Procedures Referred By Shania t Referred To Contact Diagnoses Cough Intermittent asthma without complication, unspecified asthma severity Nasima Hunter PA-C [address] [place] [address] Referral ID Status Reason Start Date Expiration Date Visits Re quested Visits Authorized [id number] Closed 1 1 Summary Purpose Family History No Family History Records FoundNo Family History Records FoundNo Family History Records FoundNo Family History Records Found Medications Administered Section Inactive Administered Medications - up to 3 most recent administrations Medication Order MAR Action Action Date Dose Rate Site tropicamide 1 % 1 Drop (MYDRIACYL) 1 Drop, BOTH EYES, DIRECTED, Starting on Mon08/03/21 at 1530, Until Mon08/04/21 at 0329, Administer for dilation Given 08/03/2021 3:23 PM EDT 1 Drop Inactive Administered Medications - up to 3 most recent administrations Medication Order MAR Action Action Date Dose Rate Site albuterol 2.5 mg /3 mL (0.083 %) 2.5 mg (PROVENTIL) 2.5 mg, INHALATION, ONCE, 1 dose, On Mon11/01/22 at 1230 Given 11/01/2022 12:44 PM EDT 2.5 mg Health Concerns Infection Onset Date Last Indicated Resolved Time COVID-19 Rule-Out 01/09/2023 01/09/2023 01/10/2023 5:07 AM EST Infection Onset Date Last Indicated Resolved Time COVID-19 Rule-Out 01/12/2023 01/12/2023 01/13/2023 12:58 AM EST Infection Onset Date Last Indicated Resolved Time COVID-19 Confirmed 01/12/2023 01/12/2023 Infection Onset Date Last Indicated Resolved Time COVID-19 Rule-Out 01/09/2023 01/09/2023 01/10/2023 5:07 AM EST COVID-19 Rule-Out 01/12/2023 01/12/2023 01/13/2023 12:58 AM EST COVID-19 Confirmed 01/12/2023 01/12/2023 8:51 PM EST Additional Source Comments Source Comments (unrecognize d section and content) In the event this informatio n is protected by the Federal Confidentiality of Alcohol and Drug Abuse Patient Records regulations: The Federal rules restrict any use of the information to criminally investigate or prosecute any alcohol or drug abuse patient.[facility] the event this information is protected by the Federal Confidentiality of Alcohol and Drug Abuse Patient Records regulations: The Federal rules restrict any use of the information to criminally investigate or prosecute any alcohol or drug abuse patient.[facility] the event this information is protected by the Federal Confidentiality of Alcohol and Drug Abuse Patient Records regulations: The Federal rules restrict any use of the information to criminally investigate or prosecute any alcohol or drug abuse patient.[facility] the event this information is protected by the Federal Confidentiality of Alcohol and Drug Abuse Patient Records regulations: The Federal rules restrict any use of the information to criminally investigate or prosecute any alcohol or drug abuse patient.[facility] the event this information is protected by the Federal Confidentiality of Alcohol and Drug Abuse Patient Records regulations: The Federal rules restrict any use of the information to criminally investigate or prosecute any alcohol or drug abuse patient.[facility] the event this information is protected by the Federal Confidentiality of Alcohol and Drug Abuse Patient Records regulations: The Federal rules restrict any use of the information to criminally investigate or prosecute any alcohol or drug abuse patient.[facility] the event this information is protected by the Federal Confidentiality of Alcohol and Drug Abuse Patient Records regulations: The Federal rules restrict any use of the information to criminally investigate or prosecute any alcohol or drug abuse patient.[facility] the event this information is protected by the Federal Confidentiality of Alcohol and Drug Abuse Patient Records regulations: The Federal rules restrict any use of the information to criminally investigate or prosecute any alcohol or drug abuse patient.[facility] the event this information is protected by the Federal Confidentiality of Alcohol and Drug Abuse Patient Records regulations: The Federal rules restrict any use of the information to criminally investigate or prosecute any alcohol or drug abuse patient.[facility] the event this information is protected by the Federal Confidentiality of Alcohol and Drug Abuse Patient Records regulations: The Federal rules restrict any use of the information to criminally investigate or prosecute any alcohol or drug abuse patient.[facility] the event this information is protected by the Federal Confidentiality of Alcohol and Drug Abuse Patient Records regulations: The Federal rules restrict any use of the information to criminally investigate or prosecute any alcohol or drug abuse patient.[facility] the event this information is protected by the Federal Confidentiality of Alcohol and Drug Abuse Patient Records regulations: The Federal rules restrict any use of the information to criminally investigate or prosecute any alcohol or drug abuse patient.[facility] the event this information is protected by the Federal Confidentiality of Alcohol and Drug Abuse Patient Records regulations: The Federal rules restrict any use of the information to criminally investigate or prosecute any alcohol or drug abuse patient.[facility] the event this information is protected by the Federal Confidentiality of Alcohol and Drug Abuse Patient Records regulations: The Federal rules restrict any use of the information to criminally investigate or prosecute any alcohol or drug abuse patient.[facility] the event this information is protected by the Federal Confidentiality of Alcohol and Drug Abuse Patient Records regulations: The Federal rules restrict any use of the information to criminally investigate or prosecute any alcohol or drug abuse patient.[facility] the event this information is protected by the Federal Confidentiality of Alcohol and Drug Abuse Patient Records regulations: The Federal rules restrict any use of the information to criminally investigate or prosecute any alcohol or drug abuse patient.[facility] the event this information is protected by the Federal Confidentiality of Alcohol and Drug Abuse Patient Records regulations: The Federal rules restrict any use of the information to criminally investigate or prosecute any alcohol or drug abuse patient.[facility] the event this information is protected by the Federal Confidentiality of Alcohol and Drug Abuse Patient Records regulations: The Federal rules restrict any use of the information to criminally investigate or prosecute any alcohol or drug abuse patient.[facility] the event this information is protected by the Federal Confidentiality of Alcohol and Drug Abuse Patient Records regulations: The Federal rules restrict any use of the information to criminally investigate or prosecute any alcohol or drug abuse patient.[facility] the event this information is protected by the Federal Confidentiality of Alcohol and Drug Abuse Patient Records regulations: The Federal rules restrict any use of the information to criminally investigate or prosecute any alcohol or drug abuse patient.[facility] the event this information is protected by the Federal Confidentiality of Alcohol and Drug Abuse Patient Records regulations: The Federal rules restrict any use of the information to criminally investigate or prosecute any alcohol or drug abuse patient.[facility] the event this information is protected by the Federal Confidentiality of Alcohol and Drug Abuse Patient Records regulations: The Federal rules restrict any use of the information to criminally investigate or prosecute any alcohol or drug abuse patient.[facility] the event this information is protected by the Federal Confidentiality of Alcohol and Drug Abuse Patient Records regulations: The Federal rules restrict any use of the information to criminally investigate or prosecute any alcohol or drug abuse patient.[facility] the event this information is protected by the Federal Confidentiality of Alcohol and Drug Abuse Patient Records regulations: The Federal rules restrict any use of the information to criminally investigate or prosecute any alcohol or drug abuse patient.[facility] the event this information is protected by the Federal Confidentiality of Alcohol and Drug Abuse Patient Records regulations: The Federal rules restrict any use of the information to criminally investigate or prosecute any alcohol or drug abuse patient.[facility] the event this information is protected by the Federal Confidentiality of Alcohol and Drug Abuse Patient Records regulations: The Federal rules restrict any use of the information to criminally investigate or prosecute any alcohol or drug abuse patient.[facility] the event this information is protected by the Federal Confidentiality of Alcohol and Drug Abuse Patient Records regulations: The Federal rules restrict any use of the information to criminally investigate or prosecute any alcohol or drug abuse patient.[facility] the event this information is protected by the Federal Confidentiality of Alcohol and Drug Abuse Patient Records regulations: The Federal rules restrict any use of the information to criminally investigate or prosecute any alcohol or drug abuse patient.[facility] the event this information is protected by the Federal Confidentiality of Alcohol and Drug Abuse Patient Records regulations: The Federal rules restrict any use of the information to criminally investigate or prosecute any alcohol or drug abuse patient.[facility] the event this information is protected by the Federal Confidentiality of Alcohol and Drug Abuse Patient Records regulations: The Federal rules restrict any use of the information to criminally investigate or prosecute any alcohol or drug abuse patient.[facility] the event this information is protected by the Federal Confidentiality of Alcohol and Drug Abuse Patient Records regulations: The Federal rules restrict any use of the information to criminally investigate or prosecute any alcohol or drug abuse patient.[facility] CampusIn the event this information is protected by the Federal Confidentiality of Alcohol and Drug Abuse Patient Records regulations: The Federal rules restrict any use of the information to criminally investigate or prosecute any alcohol or drug abuse patient.[facility] CampusIn the event this information is protected by the Federal Confidentiality of Alcohol and Drug Abuse Patient Records regulations: The Federal rules restrict any use of the information to criminally investigate or prosecute any alcohol or drug abuse patient.[facility] CampusIn the event this information is protected by the Federal Confidentiality of Alcohol and Drug Abuse Patient Records regulations: The Federal rules restrict any use of the information to criminally investigate or prosecute any alcohol or drug abuse patient.[facility] [place] CampusIn the event this information is protected by the Federal Confidentiality of Alcohol and Drug Abuse Patient Records regulations: The Federal rules restrict any use of the information to criminally investigate or prosecute any alcohol or drug abuse patient.[facility] [place] CampusIn the event this information is protected by the Federal Confidentiality of Alcohol and Drug Abuse Patient Records regulations: The Federal rules restrict any use of the information to criminally investigate or prosecute any alcohol or drug abuse patient.[facility] [place] CampusIn the event this information is protected by the Federal Confidentiality of Alcohol and Drug Abuse Patient Records regulations: The Federal rules restrict any use of the information to criminally investigate or prosecute any alcohol or drug abuse patient.[facility] [place] CampusIn the event this information is protected by the Federal Confidentiality of Alcohol and Drug Abuse Patient Records regulations: The Federal rules restrict any use of the information to criminally investigate or prosecute any alcohol or drug abuse patient.[facility] [place] CampusIn the event this information is protected by the Federal Confidentiality of Alcohol and Drug Abuse Patient Records regulations: The Federal rules restrict any use of the information to criminally investigate or prosecute any alcohol or drug abuse patient.[facility] [place] CampusIn the event this information is protected by the Federal Confidentiality of Alcohol and Drug Abuse Patient Records regulations: The Federal rules restrict any use of the information to criminally investigate or prosecute any alcohol or drug abuse patient.[facility] [place] CampusIn the event this information is protected by the Federal Confidentiality of Alcohol and Drug Abuse Patient Records regulations: The Federal rules restrict any use of the information to criminally investigate or prosecute any alcohol or drug abuse patient.[facility] [place] CampusIn the event this information is protected by the Federal Confidentiality of Alcohol and Drug Abuse Patient Records regulations: The Federal rules restrict any use of the information to criminally investigate or prosecute any alcohol or drug abuse patient.[facility] [place] CampusIn the event this information is protected by the Federal Confidentiality of Alcohol and Drug Abuse Patient Records regulations: The Federal rules restrict any use of the information to criminally investigate or prosecute any alcohol or drug abuse patient.[facility] [place] CampusIn the event this information is protected by the Federal Confidentiality of Alcohol and Drug Abuse Patient Records regulations: The Federal rules restrict any use of the information to criminally investigate or prosecute any alcohol or drug abuse patient.[facility] [place] CampusIn the event this information is protected by the Federal Confidentiality of Alcohol and Drug Abuse Patient Records regulations: The Federal rules restrict any use of the information to criminally investigate or prosecute any alcohol or drug abuse patient.[facility] [place] CampusIn the event this information is protected by the Federal Confidentiality of Alcohol and Drug Abuse Patient Records regulations: The Federal rules restrict any use of the information to criminally investigate or prosecute any alcohol or drug abuse patient.[facility] [place] CampusIn the event this information is protected by the Federal Confidentiality of Alcohol and Drug Abuse Patient Records regulations: The Federal rules restrict any use of the information to criminally investigate or prosecute any alcohol or drug abuse patient.[facility] [place] CampusIn the event this information is protected by the Federal Confidentiality of Alcohol and Drug Abuse Patient Records regulations: The Federal rules restrict any use of the information to criminally investigate or prosecute any alcohol or drug abuse patient.[facility] [place] CampusIn the event this information is protected by the Federal Confidentiality of Alcohol and Drug Abuse Patient Records regulations: The Federal rules restrict any use of the information to criminally investigate or prosecute any alcohol or drug abuse patient.[facility] [place] CampusIn the event this information is protected by the Federal Confidentiality of Alcohol and Drug Abuse Patient Records regulations: The Federal rules restrict any use of the information to criminally investigate or prosecute any alcohol or drug abuse patient.[facility] [place] CampusIn the event this information is protected by the Federal Confidentiality of Alcohol and Drug Abuse Patient Records regulations: The Federal rules restrict any use of the information to criminally investigate or prosecute any alcohol or drug abuse patient.[facility] [place] CampusIn the event this information is protected by the Federal Confidentiality of Alcohol and Drug Abuse Patient Records regulations: The Federal rules restrict any use of the information to criminally investigate or prosecute any alcohol or drug abuse patient.[facility] [place] CampusIn the event this information is protected by the Federal Confidentiality of Alcohol and Drug Abuse Patient Records regulations: The Federal rules restrict any use of the information to criminally investigate or prosecute any alcohol or drug abuse patient.[facility] [place] CampusIn the event this information is protected by the Federal Confidentiality of Alcohol and Drug Abuse Patient Records regulations: The Federal rules restrict any use of the information to criminally investigate or prosecute any alcohol or drug abuse patient.[facility] [place] CampusIn the event this information is protected by the Federal Confidentiality of Alcohol and Drug Abuse Patient Records regulations: The Federal rules restrict any use of the information to criminally investigate or prosecute any alcohol or drug abuse patient.[facility] ClinicIn the event this information is protected by the Federal Confidentiality of Alcohol and Drug Abuse Patient Records regulations: The Federal rules restrict any use of the information to criminally investigate or prosecute any alcohol or drug abuse patient.[facility] [place] CampusIn the event this information is protected by the Federal Confidentiality of Alcohol and Drug Abuse Patient Records regulations: The Federal rules restrict any use of the information to criminally investigate or prosecute any alcohol or drug abuse patient.[facility] [place] CampusIn the event this information is protected by the Federal Confidentiality of Alcohol and Drug Abuse Patient Records regulations: The Federal rules restrict any use of the information to criminally investigate or prosecute any alcohol or drug abuse patient.[facility] [place] CampusIn the event this information is protected by the Federal Confidentiality of Alcohol and Drug Abuse Patient Records regulations: The Federal rules restrict any use of the information to criminally investigate or prosecute any alcohol or drug abuse patient.[facility] [place] CampusIn the event this information is protected by the Federal Confidentiality of Alcohol and Drug Abuse Patient Records regulations: The Federal rules restrict any use of the information to criminally investigate or prosecute any alcohol or drug abuse patient.[facility] [place] CampusIn the event this information is protected by the Federal Confidentiality of Alcohol and Drug Abuse Patient Records regulations: The Federal rules restrict any use of the information to criminally investigate or prosecute any alcohol or drug abuse patient.[facility] [place] CampusIn the event this information is protected by the Federal Confidentiality of Alcohol and Drug Abuse Patient Records regulations: The Federal rules restrict any use of the information to criminally investigate or prosecute any alcohol or drug abuse patient.[facility] [place] CampusIn the event this information is protected by the Federal Confidentiality of Alcohol and Drug Abuse Patient Records regulations: The Federal rules restrict any use of the information to criminally investigate or prosecute any alcohol or drug abuse patient.[facility] [place] CampusIn the event this information is protected by the Federal Confidentiality of Alcohol and Drug Abuse Patient Records regulations: The Federal rules restrict any use of the information to criminally investigate or prosecute any alcohol or drug abuse patient.[facility] [place] CampusIn the event this information is protected by the Federal Confidentiality of Alcohol and Drug Abuse Patient Records regulations: The Federal rules restrict any use of the information to criminally investigate or prosecute any alcohol or drug abuse patient.[facility] [place] CampusIn the event this information is protected by the Federal Confidentiality of Alcohol and Drug Abuse Patient Records regulations: The Federal rules restrict any use of the information to criminally investigate or prosecute any alcohol or drug abuse patient.[facility] [place] CampusIn the event this information is protected by the Federal Confidentiality of Alcohol and Drug Abuse Patient Records regulations: The Federal rules restrict any use of the information to criminally investigate or prosecute any alcohol or drug abuse patient.[facility] [place] CampusIn the event this information is protected by the Federal Confidentiality of Alcohol and Drug Abuse Patient Records regulations: The Federal rules restrict any use of the information to criminally investigate or prosecute any alcohol or drug abuse patient.[facility] [place] CampusIn the event this information is protected by the Federal Confidentiality of Alcohol and Drug Abuse Patient Records regulations: The Federal rules restrict any use of the information to criminally investigate or prosecute any alcohol or drug abuse patient.[facility] [place] CampusIn the event this information is protected by the Federal Confidentiality of Alcohol and Drug Abuse Patient Records regulations: The Federal rules restrict any use of the information to criminally investigate or prosecute any alcohol or drug abuse patient.[facility] [place] [facility] Reason for Visit (unrecogniz ed section and content) Reason Onset Date Comments Refill Request 06/15/2021 Reason Comments Medication Problem Reason Onset Date Comments Refill Request 06/23/2021 Reason Onset Date Comments Refill Request 06/25/2021 Reason Comments FYI-No Action Needed Reason Onset Date Comments Refill Request 07/20/2021 Reason Comments Opened In Error Reason Onset Date Comments Refill Request 08/04/2021 Reason Onset Date Comments Transition Of Care 08/06/2021 TCM initial o utrmanny[facility] from [facility] 08/05/21 Reason Comments Corneal Ulcer Follow Up Reason Onset Date Comments Transition Of Care 08/06/2021 TCM Pharmacis t hospital discharge 08/05 Reason Comments Eye Pain Both Eyes OD Specialty Diagnoses / Procedures Referred By Contac t Referred To Contact HOSP INPATIENT Diagnoses Endophthalmitis Conjunctivitis endophathalmitis, corneal ulcer Procedures NA Hosp [facility] [address] [place] [address] Referral ID Status Reason Start Date Expiration Date Visits Re quested Visits Authorized [id number] 1 Reason Comments Cough fever, chills, runny nose, KAY, body aches x3 days Reason Comments Results Reason Comments requesting a new nebulizer Reason Comments Follow Up Reason Onset Date Comments Transition Of Care 08/23/2021 TCM follow-up Reason Onset Date Comments Refill Request 08/30/2021 Reason Onset Date Comments Transition Of Care 09/01/2021 TCM follow-up Reason Onset Date Comments Community Monitoring Outreach 09/01/2021 [place] bronchitis with COPD Enrollment Reason Onset Date Comments Refill Request 10/13/2021 Reason Onset Date Comments Refill Request 10/14/2021 Reason Comments Established Patient Diabetic Foot Care Reason Onset Date Comments Refill Request 12/28/2021 Reason Comments Mouth Sores Pt reported sores in mouth pain rated 10, unable to eat x3 days. Reason Comments Medication Question Reason Onset Date Comments Refill Request 04/26/2022 Reason Comments Cough Pt reported chest/na wagner congestion, onset AM Reason Comments Established Patient Follow Up Diabetic Foot Care Reason Onset Date Comments Refill Request 05/27/2022 Reason Comments Patient Update Reason Onset Date Comments Refill Request 06/09/2022 Reason Comments Counseling [facility] requesting records Reason Comments Refill Request Reason Comments Urinary Problem Pt reported burning with urination x2 wks, Kay, nausea. Reason Comments Question Reason Comments New Patient Reason Comments Pain Management Referral Reason Comments Rx refill; dosage question Reason Onset Date Comments Refill Request 08/23/2022 Reason Comments Established Patient Follow Up Diabetic Foot Check Reason Comments Sore Throat Cough x1 day, bodyac hes Reason Onset Date Comments Refill Request 10/24/2022 Reason Comments Cough Cough, chest congest ion and SOB x 1 month Reason Comments ER F/U [facility] ER 11/13/22 from a fall with left hip pain Vaginal Problem complaints of yellow discharge with a smell and burning with urination Reason Onset Date Comments Refill Request 11/18/2022 Reason Comments Lab & Test Results Reason Onset Date Comments Refill Request 11/23/2022 Reason Comments Follow Up Nail Care Diabetic Foot Check Reason Comments Finger Pain L hand middle finger pain and infection x5 days, smashed in door Reason Onset Date Comments Refill Request 01/09/2023 Reason Comments Nasal Congestion drainage, headache x 2 days Reason Comments Cough Headache,congestion, ear pain, runny nose, watery nose x3 days Reason Comments Patient Question Reason Onset Date Comments Refill Request 02/03/2023 Reason Comments Rectal Problem on right cheek and v tiffanie sore has been treated with Butt Paste Reason Comments Forms [employer]-order form for ostomy supplies Reason Comments Cough hot/cold flashes x 1 month Care Teams (unrecognized sec tion and content) Test Inspection Engineer Relationship Specialty Start Date End Date Tiff Pearson MD [address], [place] [phone] PCP - General 04/27/09 [facility] Home Care NA 05/28/15 Medical Services NA 05/28/15 [facility] 06/01/15 Test Inspection Engineer Relationship Specialty Start Date End Date Tiff Pearson MD [address], [place] [phone] PCP - General 04/27/09 [facility] Home Care NA 05/28/15 Medical Services NA 05/28/15 [facility] Casemanager NA 06/01/15 Test Inspection Engineer Relationship Specialty Start Date End Date Tiff Pearson MD [address], [place] [id number] PCP - General 04/27/09 [facility] NA 05/28/15 Medical Services NA 05/28/15 [facility] Casemanager NA 06/01/15 Test Inspection Engineer Relationship Specialty Start Date End Date Tiff Pearson MD [address] [place] [address] PCP - General 04/27/09 [facility] NA 05/28/15 Medical Services NA 05/28/15 [facility] Casemanager NA 06/01/15 Test Inspection Engineer Relationship Specialty Start Date End Date Tiff Pearson MD [address] [place] [address] PCP - General 04/27/09 [facility] NA 05/28/15 Medical Services NA 05/28/15 [facility] NA 06/01/15 Test Inspection Engineer Relationship Specialty Start Date End Date Tiff Pearson MD [address] [place] [address] PCP - General 04/27/09 [facility] NA 05/28/15 Medical Services NA 05/28/15 [facility] NA 06/01/15 Test Inspection Engineer Relationship Specialty Start Date End Date Tiff Pearson MD [address] [place], [place] [address] [phone] PCP - General 04/27/09 [facility] NA 05/28/15 Medical Services NA 05/28/15 [facility] Caseman[facility] NA 06/01/15 Test Inspection Engineer Relationship Specialty Start Date End Date Tiff Pearson MD [address], [place] [phone] PCP - General 04/27/09 Quiana Lara, [facility] [address] [place] [address] Transitional Care Pharmacist Pharmacy 08/06/21 09/04/21 Fernanda 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, 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 Derrick Follower 08/05/21 09/02/21 [facility] Home Care NA 05/28/15 Medical Services NA 05/28/15 [facility] 06/01/15 Test Inspection Engineer Relationship Specialty Start Date End Date Tiff Pearson MD [address], [place] [phone] PCP - General 04/27/09 Fernanda Yoo, 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 Derrick Follower 08/05/21 09/02/21 [facility] Home Care NA 05/28/15 Medical Services NA 05/28/15 [facility] 06/01/15 Test Inspection Engineer Relationship Specialty Start Date End Date Tiff Pearson MD [address], [place] [phone] PCP - General 04/27/09 Fernanda Yoo, 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 Derrick Follower 08/05/21 09/02/21 [facility] Home Care NA 05/28/15 Medical Services NA 05/28/15 [facility] NA 06/01/15 Test Inspection Engineer Relationship Specialty Start Date End Date Tiff Pearson MD [address] [place] [address] PCP - General 04/27/09 [facility] Home Care NA 05/28/15 Medical Services NA 05/28/15 [facility] NA 06/01/15 Test Inspection Engineer Relationship Specialty Start Date End Date Tiff Pearson MD [address] [place] [address] PCP - General 04/27/09 Fernanda Yoo, 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 Derrick Follower 08/05/21 09/02/21 [facility] Care NA 05/28/15 Medical Services NA 05/28/15 [facility] NA 06/01/15 Test Inspection Engineer Relationship Specialty Start Date End Date Tiff Pearson MD [address], [place] [id number] PCP - General 04/27/09 Fernanda Yoo, 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 Derrick Follower 08/05/21 09/02/21 [facility] Home Care NA 05/28/15 Medical Services NA 05/28/15 [facility] NA 06/01/15 Test Inspection Engineer Relationship Specialty Start Date End Date Tiff Pearson MD [address], [place] [id number] PCP - General 04/27/09 Fernanda Yoo, 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 Derrick Follower 08/05/21 09/02/21 [facility] Home Care NA 05/28/15 Medical Services NA 05/28/15 [facility] NA 06/01/15 Test Inspection Engineer Relationship Specialty Start Date End Date Tiff Pearson MD [address], [place] [phone] PCP - General 04/27/09 Fernanda Yoo, 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 Derrick Follower 08/05/21 09/02/21 [facility] Home Care NA 05/28/15 Medical Services NA 05/28/15 [facility] NA 06/01/15 Test Inspection Engineer Relationship Specialty Start Date End Date Tiff Pearson MD [address], [place] [phone] PCP - General 04/27/09 Fernanda Yoo, 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 Derrick Follower 08/05/21 09/01/21 [facility] Home Care NA 05/28/15 Medical Services NA 05/28/15 [facility] 06/01/15 Test Inspection Engineer Relationship Specialty Start Date End Date Tiff Pearson MD [address], [place] [phone] PCP - General 04/27/09 Fernanda Yoo, 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 Derrick Follower 08/05/21 09/01/21 [facility] Care NA 05/28/15 Medical Services NA 05/28/15 [facility] NA 06/01/15 Test Inspection Engineer Relationship Specialty Start Date End Date Tiff Pearson MD [address] [place], [place] [phone] PCP - General 04/27/09 Fernanda Yoo, 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 Derrick Follower 08/05/21 09/01/21 [facility] NA 05/28/15 Medical Services NA 05/28/15 [facility] 06/01/15 Test Inspection Engineer Relationship Specialty Start Date End Date Tiff Pearson MD [address], [place] [phone] PCP - General 04/27/09 [facility] Home Care NA 05/28/15 Medical Services NA 05/28/15 [facility] NA 06/01/15 Test Inspection Engineer Relationship Specialty Start Date End Date Tiff Pearson MD [address], [place] [phone] PCP - General 04/27/09 [facility] Home Care NA 05/28/15 Medical Services NA 05/28/15 [facility] 06/01/15 Test Inspection Engineer Relationship Specialty Start Date End Date Tiff Pearson MD [address] [place] [address] PCP - General 04/27/09 [facility] Home Care 05/28/15 Medical Services 05/28/15 [facility] 06/01/15 Test Inspection Engineer Relationship Specialty Start Date End Date Tiff Pearson MD [address] [place] [address] PCP - General 04/27/09 [facility] NA 05/28/15 Medical Services NA 05/28/15 [facility] NA 06/01/15 Test Inspection Engineer Relationship Specialty Start Date End Date Tiff Pearson MD [address] [place] [address] PCP - General 04/27/09 [facility] NA 05/28/15 Medical Services NA 05/28/15 [facility] NA 06/01/15 Test Inspection Engineer Relationship Specialty Start Date End Date Tiff Pearson MD [address] [place], [place] [address] [phone] PCP - General 04/27/09 [facility] NA 05/28/15 Medical Services NA 05/28/15 [facility] NA 06/01/15 Test Inspection Engineer Relationship Specialty Start Date End Date Tiff Pearson MD [address] [place] [address] PCP - General 04/27/09 [facility] NA 05/28/15 Medical Services NA 05/28/15 [facility] NA 06/01/15 Test Inspection Engineer Relationship Specialty Start Date End Date Tiff Pearson MD [address], [place] [phone] PCP - General 04/27/09 [facility] NA 05/28/15 Medical Services 05/28/15 [facility] 06/01/15 Test Inspection Engineer Relationship Specialty Start Date End Date Tiff Pearson MD [address], [place] [address] PCP - General 04/27/09 [facility] NA 05/28/15 Medical Services 05/28/15 [facility] 06/01/15 Test Inspection Engineer Relationship Specialty Start Date End Date Tiff Pearson MD [address], [place] [phone] PCP - General 04/27/09 [facility] NA 05/28/15 Medical Services 05/28/15 [facility] 06/01/15 Test Inspection Engineer Relationship Specialty Start Date End Date Tiff Pearson MD [address], [place] [phone] PCP - General 04/27/09 [facility] NA 05/28/15 Medical Services 05/28/15 [facility] 06/01/15 Test Inspection Engineer Relationship Specialty Start Date End Date Tiff Pearson MD [address], [place] [address] [phone] PCP - General 04/27/09 [facility] NA 05/28/15 Medical Services 05/28/15 [facility] 06/01/15 Test Inspection Engineer Relationship Specialty Start Date End Date Tiff Pearsno MD [address] [place] [address] PCP - General 04/27/09 [facility] NA 05/28/15 Medical Services 05/28/15 [facility] 06/01/15 Test Inspection Engineer Relationship Specialty Start Date End Date Tiff Pearson MD [address] [place], [place] [address] PCP - General 04/27/09 [facility] NA 05/28/15 Medical Services NA 05/28/15 [employer] Cas[employer] NA 06/01/15 Test Inspection Engineer Relationship Specialty Start Date End Date Tiff Pearson MD [address] [place], [place] [address] PCP - General 04/27/09 [facility] NA 05/28/15 Medical Services NA 05/28/15 [employer] 06/01/15 Test Inspection Engineer Relationship Specialty Start Date End Date Tiff Pearson MD [address] [place] [address] PCP - General 04/27/09 [facility] NA 05/28/15 Medical Services 05/28/15 [employer] 06/01/15 Test Inspection Engineer Relationship Specialty Start Date End Date Tiff Pearson MD [address] [place] [address] PCP - General 04/27/09 [facility] NA 05/28/15 Medical Services 05/28/15 [employer] 06/01/15 Test Inspection Engineer Relationship Specialty Start Date End Date Tiff Pearson MD [address] [place], [place] [address] PCP - General 04/27/09 [facility] NA 05/28/15 Medical Services NA 05/28/15 [employer] NA 06/01/15 Test Inspection Engineer Relationship Specialty Start Date End Date Tiff Pearson MD [address] [place], [place] [id number] PCP - General 04/27/09 [facility] NA 05/28/15 Medical Services NA 05/28/15 [employer] 06/01/15 Test Inspection Engineer Relationship Specialty Start Date End Date Tiff Pearson MD [address] [place] [address] PCP - General 04/27/09 [facility] NA 05/28/15 Medical Services NA 05/28/15 [employer] NA 06/01/15 Test Inspection Engineer Relationship Specialty Start Date End Date Tiff Pearson MD [address] [place] [address] PCP - General 04/27/09 [facility] NA 05/28/15 Medical Services NA 05/28/15 [employer] NA 06/01/15 Test Inspection Engineer Relationship Specialty Start Date End Date Tiff Pearson MD [address] [place], [place] [id number] PCP - General 04/27/09 [facility] NA 05/28/15 Medical Services NA 05/28/15 [employer] NA 06/01/15 Test Inspection Engineer Relationship Specialty Start Date End Date Tiff Pearson MD [address] [place], [place] [address] PCP - General 04/27/09 [facility] NA 05/28/15 Medical Services NA 05/28/15 [employer] NA 06/01/15 INFORMATION SOURCE (unrecogn ized section and content) DATE CREATED AUTHOR AUTHOR'S ORGANIZ ATION 07/07/2022 [facility] DATE CREATED AUTHOR AUTHOR'S ORGANIZ ATION 04/03/2023 [facility] DATE CREATED AUTHOR AUTHOR'S ORGANIZ ATION 04/06/2023 [facility] FOR RECORDS PERTAINING TO PATIENTS WHO ARE OR HAVE BEEN ENROLLED IN A CHEMICAL DEPENDENCY/SUBSTANCEABUSE PROGRAM, SOME INFORMATION MAY BE OMITTED. This clinical summary was aggregated from multiple sources. Caution should be exercised in using it in the provision of clinical care. This summary normalizes information from multiple sources, and as a consequence, information in this document may materially change the coding, format and clinical context of patient data. In addition, data may be omitted in some cases. CLINICAL DECISIONS SHOULD BE BASED ON THE PRIMARY CLINICAL RECORDS. [facility] provides no warranty or guarantee of the accuracy or completeness of information in this document.
[2023-04-08] MEDS: Mag Hydrox/Al Hydrox/Simeth 30 ML UDC PO (18:16)
--- NOTE | 2023-04-08 18:38 | RAD_ITS ---
INDICATION: chest pain EXAMINATION/TECHNIQUE: X-RAY - XR Chest 1 View COMPARISON: 01/05/2021 FINDINGS: LIFE-SUPPORT AND LINES: 1. An intracardiac pacer is present. HEART AND VESSELS: [Cardiac silhouette is large. Intracardiac pacer is noted. No evidence of congestive failure. LUNGS AND PLEURAL SPACES: Lungs are clear. No focal infiltrate, consolidation or effusions. No evidence of pneumothorax. Shallow aspiration crowding of bronchovascular markings. MEDIASTINUM AND HILAR REGIONS: No masses adenopathy noted. No areas of calcification. Visualized upper airway is normal in position. BONY ELEMENTS: No acute bony changes noted. RAD/Chest 1 View (Portable) IMPRESSION: 1. Cardiomegaly, intracardiac pacer is noted. No evidence of congestive failure. 2. Shallow inspiration with crowding of bronchovascular markings, no focal infiltrate consolidation. Electronically Signed: Jaylen Hart MD at 19:02 EST ,
--- NOTE | 2023-04-08 18:55 | ED.RN ---
LAB CALLED FOR SECOND TIME ABOUT STRAIGHT STICK ON PATIENT DUE TO UNABLE TO GET BLOOD WORK OFF OF IV AND 3 ATTEMPTS BY MEDIC AND MYSELF.
[2023-04-08 19:37] LABS: Anion Gap 6 (5-15); BUN 9 mg/dL (7-18); BUN/Creat Ratio 7.8 RATIO (10-20); Calcium,Total 8.4 mg/dL (8.5-10.1); Chloride 105 mmol/L (98-107); Creatinine, Serum 1.16 mg/dL (0.55-1.02); EST Glomerular Filtration Rate 50 mL/min (>60); Est Glom Filt Rate - Afr Amer 60 mL/min (>60); Estimated Creatinine Clearance 51.88 ml/min; Glucose 331 mg/dL (74-106); Potassium 4.2 mmol/L (3.5-5.1); Sodium Level 128 mmol/L (136-145); Troponin-I HS (w/2H Reflex) 6 pg/mL (3.0-54.0)
[2023-04-08 19:40] LABS: Absolute Lymphocyte Count 0.74 X10^3/uL (0.83-4.51); Absolute Neutrophil Count 12.3 X10^3/uL (2.0-7.7); Basophil# 0.02 X10^3/uL; Basophil% 0.1 % (0-1); Eosinophil# 0.01 X10^3/uL; Eosinophils% 0.1 % (0-5); Hematocrit 29.6 % (37-47); Hemoglobin 8.6 g/dL (12.0-15.0); Lymphocyte # 0.74 X10^3/ul (0.83-4.51); Lymphocyte % 5.3 % (19-41); Mean Corp Hgb Conc 29.1 g/dL (32-36); Mean Corpuscular Hgb 25.8 pg (27.0-32.0); Mean Corpuscular Volume 88.9 fL (81-99); Mean Platelet Vol. 8.4 fl (6.2-12.0); Monocyte% 5.8 % (0-10); NRBC Flagged by Analyzer 0 % (0-5); Neutrophil # 12.25 X10^3/uL (2.7-7.7); Neutrophil % 88.3 % (47-70); Platelet Count 335 K/mm3 (150-450); RBC Distribution Width CV 17.4 % (11.6-14.6); RBC Distribution Width SD 56.2 fl (35.1-43.9); Red Blood Count 3.33 M/mm3 (4.2-5.4); White Blood Count 13.9 K/mm3 (4.4-11.0)
[2023-04-08 19:55] LABS: D-Dimer Quantitative (DVT/PE) < 0.27 FEU/ug/m (0.27-0.49)
[2023-04-08] MEDS: fentaNYL 100 MCG/2 ML Ampul 50 MCG IV (19:58)
[2023-04-08 21:12] LABS: Reflex Troponin-HS? (from REC) Y
[2023-04-08] MEDS: Hyoscyamine Sulfate 0.125 MG Tablet 0.25 MG SL (21:19)
[2023-04-08 21:47] LABS: Troponin-I HS 6 pg/mL (3.0-54.0)
== END 2023-04-08 22:41 | disposition home or self-care (01) ==
PROVIDERS: Emergency Provider Emergency Medicine; PCP Internal Medicine; Visit Provider Emergency Medicine
DX: R07.9 Chest pain, unspecified (principal); E10.9 Type 1 diabetes mellitus without complications; Z79.4 Long term (current) use of insulin; I10 Essential (primary) hypertension; E66.9 Obesity, unspecified; Z68.30 Body mass index [BMI] 30.0-30.9, adult; Z95.0 Presence of cardiac pacemaker; Z79.84 Long term (current) use of oral hypoglycemic drugs; Z79.899 Other long term (current) drug therapy; Z87.891 Personal history of nicotine dependence
CPT/HCPCS: 71045; 80048; 84484; 85025; 85379; 93005; 96374; 99283; A4216

== ENCOUNTER 2023-05-11 13:26 | Outpatient (RCR) | payer MEDICAID, SELFPAY ==
[2023-05-11 13:58] VITALS: BP 139/56; PULSE 91; RESP 18; TEMP 36.4
--- NOTE | 2023-05-11 16:09 | PCM.WC.HP ---
History of Present Illness Date of Service: 05/11/23 Chief Complaint: Abdominal wound adjacent to ostomy History of Wound: Chen Kern is a very pleasant 62-year-old female who presents to the wound care center today for evaluation and management of an abdominal wound. She is accompanied to her appointment today by her who assists with her wound care. She has a superficial wound on her abdomen adjacent to her ostomy. The wound is underneath the adhesive of her ostomy appliance when this is in place. She reports it has been there for the last 4 weeks or so. It is also contributing to leaking from her ostomy appliance. It has been difficult for them to manage at home as any dressings they have been applying affects the seal of her ostomy. She has been applying nystatin powder to this area but has not noticed any improvement. She denies any redness, focal swelling, drainage from the wound itself. No recent nausea, vomiting, fevers, chills. She also tells us about what she thinks is a perianal wound. She reports this has been ongoing for a very long time and is quite painful. 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 She was recently on a round of antibiotics for this through her PCP. She does have a very extensive surgical history including initially bowel resection and ostomy creation secondary to colon cancer resection and then followed by a series of complications over the years including bowel obstruction, hernias, peptic ulcers requiring further abdominal surgeries. By report, she has very extensive scar tissue which would make any future surgical interventions exceedingly difficult. Her medical history is otherwise significant for COPD, diabetes, paranoid schizophrenia. [facility] Medical History Anxiety Anxiety and depression Asthma Bradycardia Colon cancer COPD (chronic obstructive pulmonary disease) Depression Diabetes Former smoker GERD (gastroesophageal reflux disease) Hyperlipidemia Hypertension Migraines Obesity (BMI 30.0-34.9) Paranoid schizophrenia Schizophrenia Secondary pulmonary arterial hypertension Tracheitis Type I diabetes mellitus Home Medications topiramate 100 mg tablet 100 mg PO BID 03/01/17 [History Last Taken 12/06/18 09:00] hydrocortisone 2.5 % topical cream 1 applic topical DAILY 30 days ##30 10/31/17 [History Last Taken Unknown] insulin glargine 100 unit/mL (3 mL) subcutaneous pen (Lantus Solostar U-100 Insulin) 12 unit subcut QHS 10/31/17 [History Last Taken Unknown] thiothixene 2 mg capsule 2 mg PO DAILY 30 days ##30 10/31/17 [History Last Taken 12/04/17 05:30] trazodone 100 mg tablet 300 mg PO QHS 30 days ##90 10/31/17 [History Last Taken Unknown] glimepiride 4 mg tablet 4 mg PO DAILY 30 days ##30 11/01/17 [History Last Taken Unknown] amitriptyline 25 mg tablet 25 mg PO QHS 11/28/17 [History Last Taken Unknown] melatonin 5 mg-pyridoxine (vitamin B6) 1 mg tablet (Melatonin (with B6)) 2 ea PO QHS 11/28/17 [History Last Taken Unknown] omeprazole 20 mg capsule,delayed release 20 mg PO DAILY 12/04/17 [History Last Taken 12/06/18 09:00] cariprazine 3 mg capsule 3 mg PO QHS mental status 12/04/18 [History Last Taken Unknown] fluphenazine HCl 1 mg tablet 1 mg PO QHS 12/04/18 [History Last Taken Unknown] guaifenesin 600 mg tablet, extended release 12 hr 600 mg PO TID 12/04/18 [History Last Taken 12/06/18 09:00] pravastatin 40 mg tablet 40 mg PO DAILY 12/04/18 [History Last Taken Unknown] tapentadol 75 mg tablet 75 mg PO TID pain 12/04/18 [History Last Taken 12/06/18 09:00] magnesium oxide 400 mg (241.3 mg magnesium) tablet 400 mg PO DAILY 04/16/19 [History Last Taken Unknown] hydrocortisone 2.5 % topical cream with perineal applicator 1 applic MD QHS PRN hemorrhoids #30 grams 05/17/21 [Rx Last Taken Unknown] hyoscyamine sulfate 0.125 mg sublingual tablet 0.25 mg (2 x 0.125 mg) PO Q6H PRN epigastric discomfort #12 tabs 04/08/23 [Rx Last Taken Unknown] Allergy/AdvReac Type Severity Reaction Status Date / Time azithromycin Allergy Rash Verified 04/08/23 17:39 Cephalosporins Allergy Rash Verified 04/08/23 17:39 mahoney [cherries] Allergy Angioedema Verified 04/08/23 17:39 codeine Allergy Rash Verified 04/08/23 17:39 diclofenac [Diclofenac] Allergy Rash Verified 04/08/23 17:39 hydrocodone bitartrate Allergy Rash Verified 04/08/23 17:39 [From Vicodin] hydromorphone HCl Allergy Rash Verified 04/08/23 17:39 [From Dilaudid] lemon Allergy Angioedema Verified 04/08/23 17:39 Penicillins Allergy Anaphylaxis Verified 04/08/23 17:39 Sulfa (Sulfonamide Allergy Rash Verified 04/08/23 17:39 Antibiotics) pear AdvReac NEEDS Verified 04/08/23 17:39 FOLLOW-UP soap AdvReac NEEDS Verified 04/08/23 17:39 FOLLOW-UP Family History Father Heart disease Other Thyroid disorder Surgical History Colostomy in place History of appendectomy History of colectomy History of partial colectomy Presence of cardiac pacemaker (09/28/16) Tracheostomy in place Social History household members: spouse Smoking Status: Never smoker substance use type: does not use and marijuana Vital Signs Vital Signs Vital Signs: 05/11/23 13:58 Temperature 97.6 F L Temperature Source Temporal Pulse Rate 91 Respiratory Rate 18 Blood Pressure 139/56 H Blood Pressure Mean 83 Blood Pressure Source Monitor Blood Pressure Position Semi-Fowlers Blood Pressure Location Left Arm Physical Exam Const alert, oriented x3 and no apparent distress General Appearance: cooperative and comfortable HEENT normocephalic, head/scalp atraumatic, hearing grossly normal bilaterally, external ears normal and external nose normal Eyes EOMs intact bilaterally General Eye: normal appearance of both eyes Neck full ROM General: normal visual inspection Resp normal respiratory effort, normal air movement and No no retractions Effort and Inspection: able to speak in complete sentences; Negative for labored, stridor or audible wheezes Cardio regular rate and regular rhythm Skin Wounds: wounds noted Wound Narrative: She has a small, wound to the upper abdominal wall adjacent to her ostomy. This wound is underneath the ostomy appliance when in place but not directly associated to the ostomy itself. Subcutaneous in depth with tracking at 3:00 and undermining from 12-2. There is no significant slough appreciated. There is no surrounding erythema, warmth, focal swelling. No drainage is appreciated. Did also examine the perianal area. 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 There was surrounding induration but no fluctuance, warmth, significant erythema. There is some skin discoloration but no apparent skin breakdown or wound. Neuro oriented x3, CN's II-XII intact bilaterally, moves all extremities, no focal motor deficits and no sensory deficits noted Speech: speech normal Psych mental status grossly normal Appearance: grossly normal Attitude: calm and engaged Activity / Motor Behavior: appropriate eye contact Speech: normal speech Mood & Affect: euthymic mood Judgement: judgement good Debridement Note Debridement Note Wound debrided: Upper abdominal wound No debridement was completed: No debridement was completed today Post-Debridement Measurements and Additional Note: Post-Debridement Measurements/Treatment - Nurse 1 - General Ulcer Assessment Start: 05/11/23 13:46 Freq: Status: Active Protocol: YOBANY Activity Type Activity Date Activity User E-sign Co-sign Detail Recorded Client Recorded Date Recorded By Document 05/11/23 13:58 RB Desktop 05/11/23 14:01 RB Edit Result 05/11/23 13:58 RB (1) [id number] 05/11/23 14:20 RB (1) Preferred language => [place] Learning Engineer Required => No Able to Read => No Able to Write => No Communication Tools => None Caregiver Communication Skills => No Impairment Impairment Right Hearing Abillity => Normal Left Hearing Abillity => Normal Visual Assistive Devices => Glasses Preferences => Verbal,Written, => Demonstration Barriers to Learning => None Readiness To Learn => Good Willingness to Engage in Self Management => Med Activies Readiness to Engage in Self Management => Med Activities Anxiety Level => Anxious Cooperation => Cooperative Perception => Coherent Interest in Health Problem => Asks Questions Education Importance => Acknowledges Need Does Patient Smoke tobacco or other => No substances Smoking Status => Never smoker Recent Decline in Ability to Perform => Denies Any => Declines Assistive Device With Patient => No 05/11/23 13:58 - Today's Visit Information Type of service Initial Visit Arrival Mode Ambulatory Transfer Assistance None Patient Identification Verified (Name & Yes ) Patient Requires Transmission-Based No Precautions Vital Signs Temperature (97.8 F-99.1 F) 97.6 F L Temperature Source Temporal Pulse Rate (60-100) 91 Pulse Location Monitor Respiratory Rate (12-18) 18 Respiratory rate source Observation Blood Pressure (90/60-120/80) 139/56 H Blood Pressure Mean 83 Source Monitor Position Semi-Fowlers Blood Pressure Location Left Arm History Since Last Visit- (Skip if this is Patient's initial visit) Have you changed medications since your No last visit? Any new allergies or adverse reactions No Had a fall/change in ADL's that may No increase risk of falls Signs or symptoms of abuse and/or No neglect since last visit Have you been in the hospital since your No last visit? Has dressing in place as prescribed Yes Has compression in place as prescribed No Has offloadiing in place as prescribed No Experienced any changes in pain level or No management Pain Scale: 0-10 Numeric Is Patient Pain Free? Yes Communication Assessment Preferred language [place] Learning Engineer Required No Able to Read No Able to Write No Communication Tools None Caregiver Communication Skills No Impairment Impairment Right Hearing Abillity Normal Left Hearing Abillity Normal Visual Assistive Devices Glasses Teaching Assessment Preferences Verbal,Written, Demonstration Barriers to Learning None Readiness To Learn Good Willingness to Engage in Self Management Med Activies Readiness to Engage in Self Management Med Activities Anxiety Level Anxious Cooperation Cooperative Perception Coherent Interest in Health Problem Asks Questions Education Importance Acknowledges Need Does Patient Smoke tobacco or other No substances Smoking Status Never smoker Functional Assessment Recent Decline in Ability to Perform Denies Any Declines Assistive Device With Patient No WC - Nurse 1 - General Ulcer Measurement Start: 05/11/23 13:46 Freq: Status: Active Protocol: Activity Type Activity Date Activity User E-sign Co-sign Detail Recorded Client Recorded Date Recorded By Document 05/11/23 13:58 RB Desktop 05/11/23 14:01 RB 05/11/23 13:58 Wound Center Nurse 1 1. R abd upper quad -Combined with other wound No -Current Size (cm) - Length 0.6 -Current Size (cm) - Width 1.7 -Current Size (cm) - Depth 0.5 -Total Square Cm 1.02 -Photo Taken Yes -Tunneling Yes -Tunneling Position (O'clock) 3 -Tunneling Distance (cm) 1.5 -Undermining/Tunneling No -Circular Undermining No -Exudate Amt Medium -Exudate Type Serosanguineous -Wound Margin Distinct, Outline Attached -Granulation Amt Medium (34-66%) -Granulation Quality [place] -Slough/Fibrin Yes -Necrosis Amt Medium (34-66%) -Necrotic Tissue Type Adherent Slough -Structure Exposed N/A -Texture (Nuvia-wound Skin Appearance) Assessed -Moisture (Nuvia-wound Skin Appearance) Assessed -Color (Nuvia-wound Skin Appearance) Assessed -Temperature (Nuvia-wound Skin No Abnormality Appearance) (Pt Warm) -Tenderness on Palpation (Nuvia-wound No Skin Appearance) -Ulcer Cleansing Wound Cleanser -Foul Odor after Cleansing No -Anesthetic Used 5% Lidocaine Gel WC - Nurse 2 - General Ulcer CM Notes Start: 05/11/23 13:46 Freq: Status: Active Protocol: Activity Type Activity Date Activity User E-sign Co-sign Detail Recorded Client Recorded Date Recorded By Document 05/11/23 14:04 Desktop 05/11/23 14:21 GM 05/11/23 14:04 Wound Center Nurse 2 #3 Perianal -Time 14:19 -Correct Patient Yes -Correct Side, Site, Position Yes -Wound Comment(s) Area is red and sore, there is a fistula that is considered non-operable. Recommend patient follow up with surgeon . 1. R abd upper quad -Time 14:05 -Correct Patient Yes -Correct Side, Site, Position Yes -Wound/Ulcer Outcome Not Healed -Ulcer Cleansing Rinsed/ Irrigated with Saline -Foul Odor after Cleansing No -Wound Comment(s) wound measured and dressed, no debridement Pain Scale: 0-10 Numeric Is Patient Pain Free? Yes - Nurse 3 - General Ulcer D/C NN Start: 05/11/23 13:46 Freq: Status: Active Protocol: Activity Type Activity Date Activity User E-sign Co-sign Detail Recorded Client Recorded Date Recorded By Document 05/11/23 14:24 GM Desktop 05/11/23 14:25 GM 05/11/23 14:24 Wound Care Center Nurse 3 1. R abd upper quad -Ulcer Cleansing Not Cleansed -Foul Odor after Cleansing No -Primary Dressing Applied Aquacel AG 4x4 -Aquacel AG 4x4 1 Pain Scale: 0-10 Numeric Is Patient Pain Free? Yes WC - Visit Discharge Ambulatory Status Ambulatory Transportation Private Auto Accompanied by Medication Reconcilliation completed & Yes provided to patient/care provider Clinical Summary of Care Provided Yes Charges/Coding Visit Charges Office Visits / Consults: [id number] OV L3 New 30min Assessment/Plan Assessment/Plan (1) Non-pressure chronic ulcer of skin of other sites with fat layer exposed: CODE(S): L98.492 - Non-pressure chronic ulcer of skin of other sites with fat layer exposed PLAN: Patient has a chronic wound to her upper abdomen which appears secondary to excess moisture associated with her ostomy. No debridement was performed today. Sera Sanabria (wound and ostomy nurse from the hospital) was also present as she is familiar with Chen. She assisted with patient's dressings and ostomy, her recommendations and help are very much appreciated. Will apply Aquacel Ag to the wound bed and pack in to the tunneling/undermining. Will apply ComFeel Clear over top which will protect the wound from moisture and still allow for a good seal on the ostomy device. Will change dressings when the ostomy is changed, approx every 3 days. Gently cleanse the area and pat to dry prior to dressing changes. Her was present for wound care instructions. There was no wound identified in the perianal area of concern, only the known fistula. Unfortunately, as long as the fistula is present there really is not much to do to improve the discomfort in this area. I do advise the use of a barrier cream such as Desitin, Triad Cream, Calmoseptine, or other to protect the skin from the associated moisture/drainage and try to prevent skin breakdown. It has been a while since she last saw her colorectal surgeon but she reports they did not seem to feel surgical intervention was possible given her extensive prior history. She may consider reaching back out to them now to confirm there are no feasible surgical treatment options or seek a second opinion. Otherwise, continue to pad the area, manage drainage as best as possible, and protect the skin. She will return to the wound center in 2 weeks or sooner as needed. They understand to call if they do not receive supplies or if they have any questions/concerns.
== END 2023-06-04 23:59 | disposition home or self-care (01) ==
LOC: WC 13:26
PROVIDERS: PCP Internal Medicine; Referring Provider Internal Medicine; Visit Provider Physician Assistant
DX: E11.622 Type 2 diabetes mellitus with other skin ulcer (principal); Z93.3 Colostomy status; L98.492 Non-pressure chronic ulcer of skin of other sites with fat layer exposed; J44.9 Chronic obstructive pulmonary disease, unspecified; Z79.4 Long term (current) use of insulin; I10 Essential (primary) hypertension; E78.5 Hyperlipidemia, unspecified; Z85.038 Personal history of other malignant neoplasm of large intestine
CPT/HCPCS: 99213; G0463

== ENCOUNTER 2023-08-27 18:49 | Emergency (ER) | payer MEDICAID, SELFPAY ==
[2023-08-27 18:50] VITALS: BP 158/67; PULSE 87; RESP 16; TEMP 36.3; O2SAT 99; BMI 24.7
--- NOTE | 2023-08-27 19:37 | EDS_ITS ---
HPI <PEG Sarmiento - Last Filed: 08/27/23 21:17> History of Present Illness Chief Complaint: Wound Narrative Narrative: 62-year-old female with past medical history of colostomy status post colon cancer resection, diabetes states she has had a boil on her buttock for at least 3 months. She is a poor informant but states someone prescribed nystatin powder about a month ago. Her PCP is Dr. Renny Vital but she saw another physician in the office 2 days ago who referred her to Dr. Hunter for surgical evaluation next month. She has not been on any antibiotics. She states it feels like the area is enlarging and it is painful to sit. No fever or chills. PFSH <PEG Sarmiento - Last Filed: 08/27/23 21:17> [facility] Medical History Anxiety Anxiety and depression Asthma Bradycardia Colon cancer COPD (chronic obstructive pulmonary disease) Depression Diabetes Former smoker GERD (gastroesophageal reflux disease) Hyperlipidemia Hypertension Migraines Obesity (BMI 30.0-34.9) Paranoid schizophrenia Schizophrenia Secondary pulmonary arterial hypertension Tracheitis Type I diabetes mellitus Home Medications ?Medication ?Instructions ?Recorded ?Last Taken ?Type topiramate 100 mg tablet 100 mg PO BID 03/01/17 12/06/18 09:00 History hydrocortisone 2.5 % topical cream 1 applic topical DAILY 30 days ##30 10/31/17 Unknown History insulin glargine 100 unit/mL (3 12 unit subcut QHS 10/31/17 Unknown History mL) subcutaneous pen (Lantus Solostar U-100 Insulin) thiothixene 2 mg capsule 2 mg PO DAILY 30 days ##30 10/31/17 12/04/17 05:30 History trazodone 100 mg tablet 300 mg PO QHS 30 days ##90 10/31/17 Unknown History glimepiride 4 mg tablet 4 mg PO DAILY 30 days ##30 11/01/17 Unknown History amitriptyline 25 mg tablet 25 mg PO QHS 11/28/17 Unknown History melatonin 5 mg-pyridoxine (vitamin 2 ea PO QHS 11/28/17 Unknown History B6) 1 mg tablet (Melatonin (with B6)) omeprazole 20 mg capsule,delayed 20 mg PO DAILY 12/04/17 12/06/18 09:00 History release cariprazine 3 mg capsule 3 mg PO QHS mental status 12/04/18 Unknown History fluphenazine HCl 1 mg tablet 1 mg PO QHS 12/04/18 Unknown History guaifenesin 600 mg tablet, 600 mg PO TID 12/04/18 12/06/18 09:00 History extended release 12 hr pravastatin 40 mg tablet 40 mg PO DAILY 12/04/18 Unknown History tapentadol 75 mg tablet 75 mg PO TID pain 12/04/18 12/06/18 09:00 History magnesium oxide 400 mg (241.3 mg 400 mg PO DAILY 04/16/19 Unknown History magnesium) tablet hydrocortisone 2.5 % topical cream 1 applic NC QHS PRN hemorrhoids 05/17/21 Unknown Rx with perineal applicator #30 grams hyoscyamine sulfate 0.125 mg 0.25 mg (2 x 0.125 mg) PO Q6H PRN 04/08/23 Unknown Rx sublingual tablet epigastric discomfort #12 tabs clindamycin HCl 300 mg capsule 300 mg PO Q6H 7 days #28 CAPSULES 08/27/23 Unknown Rx (Cleocin HCl) Allergy/AdvReac Type Severity Reaction Status Date / Time azithromycin Allergy Rash Verified 08/27/23 18:53 Cephalosporins Allergy Rash Verified 08/27/23 18:53 mahoney (cherries) Allergy Angioedema Verified 08/27/23 18:53 codeine Allergy Rash Verified 08/27/23 18:53 diclofenac (Diclofenac) Allergy Rash Verified 08/27/23 18:53 hydrocodone bitartrate (From Allergy Rash Verified 08/27/23 18:53 Vicodin) hydromorphone HCl (From Allergy Rash Verified 08/27/23 18:53 Dilaudid) lemon Allergy Angioedema Verified 08/27/23 18:53 Penicillins Allergy Anaphylaxis Verified 08/27/23 18:53 Sulfa (Sulfonamide Allergy Rash Verified 08/27/23 18:53 Antibiotics) pear AdvReac NEEDS Verified 08/27/23 18:53 FOLLOW-UP soap AdvReac NEEDS Verified 08/27/23 18:53 FOLLOW-UP Family History Father Heart disease Other Thyroid disorder Surgical History Colostomy in place History of appendectomy History of colectomy History of partial colectomy Presence of cardiac pacemaker (09/28/16) Tracheostomy in place Social History household members: spouse Smoking Status: Former smoker quit date: 08/27/10 pack-years: 45 substance use type: does not use and marijuana ROS <PEG Sarmiento - Last Filed: 08/27/23 21:17> ROS ED ROS Narrative Constitutional: Negative for fever, chills, malaise. GI: Negative for abdominal pain, nausea, vomiting. Skin: Positive for swelling/abscess. EXAM <PEG Sarmiento - Last Filed: 08/27/23 21:17> Physical Exam Narrative Exam Narrative: CONST: Patient sitting in no acute distress. EYES: Normal inspection. ENT: Normal inspection, moist mucous membranes. NECK: Normal inspection. RESP: No respiratory distress, CTAB. CVS: Regular rate and rhythm, no murmur, no gallop. ABD: Colostomy bag intact. Abdomen soft and nontender, nondistended. Rectum: 3 x 3 cm area of erythema and induration right medial buttock with no extension to the rectum, no fluctuance or crepitus. Back: Normal inspection, no CVA tenderness. SKIN: Color normal, no rash, warm, dry, intact. EXTREMITIES: Normal appearance, no pedal edema. NEURO: Alert and answering questions appropriately. PSYCH: Normal affect. Const Vital Signs: 08/27/23 18:50 08/27/23 20:32 08/27/23 20:43 Temperature 97.3 F L 97.7 F L 98.2 F Temperature Source Temporal Oral Pulse Rate 87 77 78 Respiratory Rate 16 18 18 Blood Pressure 158/67 H 144/75 H Blood Pressure Mean 97 98 Pulse Ox 99 98 Oxygen Delivery Method Room Air Room Air <Dr. Gaetano Doyle MD - Last Filed: 08/27/23 20:45> Physical Exam Const Vital Signs: 08/27/23 18:50 08/27/23 20:32 08/27/23 20:43 Temperature 97.3 F L 97.7 F L 98.2 F Temperature Source Temporal Oral Pulse Rate 87 77 78 Respiratory Rate 16 18 18 Blood Pressure 158/67 H 144/75 H Blood Pressure Mean 97 98 Pulse Ox 99 98 Oxygen Delivery Method Room Air Room Air [facility] <PEG Sarmiento - Last Filed: 08/27/23 21:17> [facility] Narrative Medical decision making narrative: History from: Patient and spouse Differential: Buttock cellulitis, abscess Patient has a small area of erythema and induration on her right buttock. It does not extend to the rectum. She states it has been there for 3 months. She appears well and nontoxic. Vital signs are stable. I injected a small amount of 1% lidocaine with epinephrine and used an 18-gauge needle to aspirate and there is no pus or fluid. I prescribed clindamycin with first dose given here. She has not been any antibiotics in the past for this. She does have nystatin powder as this may also be fungal in nature as there is a little redness around the anus itself which is separate from the indurated area. She is scheduled to see the general surgeon for evaluation. Return precautions discussed. She was discharged in stable condition. I have personally performed a face to face assessment of the patient and have reviewed the ERIN Note. I performed a substantive portion of the visit including all aspects of the following. My serrato findings include: History is [62-year-old female whose had lesions on her left buttock for months. Was seen by [facility] primary care physician referred to one of the general surgeons for possible I&D. Denies fever. Denies any purulent drainage .] Exam is [62-year-old female no acute distress vital signs stable afebrile. HEENT exam unremarkable. Lungs clear. Heart regular rhythm. Abdomen soft. Colostomy bag in place. Buttocks left buttock cheek she is good several square areas of the lesion that is firm and hard. There is no fluctuance. This is either soft tissue infection or fungal infection. Moving all 4 extremities. Nontender no edema. She is awake and alert. ] Medical Decision Making [left buttock either fungal infection versus cellulitis. We asked. There is no pus. She will be placed on clindamycin 4 times a day f or a week. She has a follow-up appointment to see general surgeon to [facility].] Other additions or changes: [None] <Dr. Gaetano Doyle MD - Last Filed: 08/27/23 20:45> MDM MDM Narrative Medical decision making narrative: I have personally performed a face to face assessment of the patient and have reviewed the ERIN Note. I performed a substantive portion of the visit including all aspects of the following. My serrato findings include: History is [62-year-old female whose had lesions on her left buttock for months. Was seen by [facility] primary care physician referred to one of the general surgeons for possible I&D. Denies fever. Denies any purulent drainage.] Exam is [62-year-old female no acute distress vital signs stable afebrile. HEENT exam unremarkable. Lungs clear. Heart regular rhythm. Abdomen soft. Colostomy bag in place. Buttocks left buttock cheek she is good several square areas of the lesion that is firm and hard. There is no fluctuance. This is either soft tissue infection or fungal infection. Moving all 4 extremities. Nontender no edema. She is awake and alert. ] Medical Decision Making [left buttock either fungal infection versus cellulitis. We asked. There is no pus. She will be placed on clindamycin 4 times a day for a week. She has a follow-up appointment to see general surgeon [facility].] Other additions or changes: [None] History & Record Review Discussion w/independent historian: Patient and Family Discharge Plan Triage Chief Complaint: Wound ED Midlevel Provider: aRma Garvin ED Provider: Gaetano Doyle Dx/Rx/DC Orders Clinical Impression: Cellulitis of buttock, right Instructions: Cellulitis Dc Prescriptions: New clindamycin HCl [Cleocin HCl] 300 mg capsule 300 mg PO Q6H 7 Days Qty: 28 0RF No Action glimepiride 4 mg tablet 4 mg PO DAILY 30 Days Qty: 30 Patient Comments: hydrocortisone 2.5 % cream 1 applic TOPICAL DAILY 30 Days Qty: 30 Patient Comments: thiothixene 2 mg capsule 2 mg PO DAILY 30 Days Qty: 30 Patient Comments: trazodone 100 mg tablet 300 mg PO QHS 30 Days Qty: 90 Patient Comments: insulin glargine [Lantus Solostar U-100 Insulin] 100 unit/mL (3 mL) insulin pen 12 unit SC QHS topiramate 100 mg tablet 100 mg PO BID Patient Comments: 1 tablet every morning melatonin-pyridoxine (vit B6) [Melatonin (with B6)] 1 EACH tablet 2 ea PO QHS amitriptyline 25 MG tablet 25 mg PO QHS omeprazole 20 MG capsule 20 mg PO DAILY pravastatin 40 MG tablet 40 mg PO DAILY fluphenazine HCl 1 MG tablet 1 mg PO QHS tapentadol 75 MG tablet 75 mg PO TID cariprazine 3 MG capsule 3 mg PO QHS guaifenesin 600 MG tablet extended release 12hr 600 mg PO TID magnesium oxide 400 MG tablet 400 mg PO DAILY Patient Comments: TAKE 1 TABLET BY MOUTH EVERY DAY hydrocortisone 2.5 % cream with perineal applicator 1 applic NC QHS PRN (Reason: hemorrhoids) Qty: 30 0RF hyoscyamine sulfate 0.125 mg tablet, sublingual 0.25 mg PO Q6H PRN (Reason: epigastric discomfort) Qty: 12 0RF Primary Care Provider: Vivian Meyer Referrals: Vivian Meyer MD [Primary Care Provider] - Activity Restrictions/Additional Instructions: I did needle aspiration of the area on her buttock and there was no pus present. I prescribed antibiotics. Please follow-up with Dr. Hunter as scheduled. If symptoms worsen or you develop a fever or significant increased pain or swelling please be reevaluated sooner. Print Language: [place] Islander Disposition Disposition: Home, Self Care Discharge Date/Time: 08/27/23 21:04
[2023-08-27] MEDS: Clindamycin HCl 150 MG Capsule 300 MG PO (20:31)
[2023-08-27 20:32] VITALS: PULSE 77; RESP 18; TEMP 36.5
[2023-08-27 20:43] VITALS: BP 144/75; PULSE 78; RESP 18; TEMP 36.8; O2SAT 98
== END 2023-08-27 21:04 | disposition home or self-care (01) ==
PROVIDERS: Emergency Provider Emergency Medicine; PCP Internal Medicine; Visit Provider Emergency Medicine
DX: L03.317 Cellulitis of buttock (principal); Z93.3 Colostomy status; F20.9 Schizophrenia, unspecified; J44.9 Chronic obstructive pulmonary disease, unspecified; E11.9 Type 2 diabetes mellitus without complications; Z79.4 Long term (current) use of insulin; Z87.891 Personal history of nicotine dependence; Z85.038 Personal history of other malignant neoplasm of large intestine; E78.5 Hyperlipidemia, unspecified; I10 Essential (primary) hypertension; Z79.84 Long term (current) use of oral hypoglycemic drugs; K21.9 Gastro-esophageal reflux disease without esophagitis; F32.A Depression, unspecified; Z90.49 Acquired absence of other specified parts of digestive tract; Z95.0 Presence of cardiac pacemaker
CPT/HCPCS: 10060; 99282

== ENCOUNTER 2023-11-05 05:22 | Emergency (ER) | payer MEDICARE, MEDICAID, SELFPAY ==
[2023-11-05 05:23] VITALS: BP 119/34; PULSE 96; RESP 16; TEMP 36.5; O2SAT 99; BMI 26.0
--- NOTE | 2023-11-05 05:41 | EX.ED.DYSGE1 ---
HPI History of Present Illness Chief Complaint: Other, Pain/Inj Informant: patient and spouse/S.O. Narrative Narrative: Presents here with spouse for evaluation. Reports unable to sleep for 8 months now. History of schizophrenia, bipolar, depression, multiple personality disorder. She states most recently 2 weeks ago taken off Ambien stating it was not working well. She states she is started on Cymbalta 10 mg of taking for at least 2 weeks. This was [facility] by [facility]. Previously her psychiatrist had had her on Seroquel and trazodone she states those medications were not working either. She states she tried CBD oil help for 1 night. She currently on melatonin reporting taking 2, 10 mg tablets each night. States still not helping. She denies any suicidal homicidal ideations. Prior similar symptoms: Yes PFSH [facility] Medical History Schizophrenia Anxiety Depression Diabetes Former smoker Migraines Secondary pulmonary arterial hypertension Bradycardia Paranoid schizophrenia COPD (chronic obstructive pulmonary disease) Asthma Tracheitis Anxiety and depression GERD (gastroesophageal reflux disease) Colon cancer Obesity (BMI 30.0-34.9) Type I diabetes mellitus Hyperlipidemia Hypertension Home Medications ?Medication ?Instructions ?Recorded ?Last Taken ?Type topiramate 100 mg tablet 100 mg PO BID 03/01/17 12/06/18 09:00 History hydrocortisone 2.5 % topical cream 1 applic topical DAILY 30 days ##30 10/31/17 Unknown History insulin glargine 100 unit/mL (3 12 unit subcut QHS PRN 10/31/17 Unknown History mL) subcutaneous pen (Lantus hyperglycemia Solostar U-100 Insulin) thiothixene 2 mg capsule 2 mg PO DAILY 30 days ##30 10/31/17 12/04/17 05:30 History glimepiride 4 mg tablet 4 mg PO DAILY 30 days ##30 11/01/17 Unknown History amitriptyline 25 mg tablet 25 mg PO QHS 11/28/17 Unknown History melatonin 5 mg-pyridoxine (vitamin 2 ea PO QHS 11/28/17 Unknown History B6) 1 mg tablet (Melatonin (with B6)) omeprazole 20 mg capsule,delayed 20 mg PO DAILY 12/04/17 12/06/18 09:00 History release cariprazine 3 mg capsule 3 mg PO QHS mental status 12/04/18 Unknown History fluphenazine HCl 1 mg tablet 1 mg PO QHS 12/04/18 Unknown History guaifenesin 600 mg tablet, 600 mg PO TID 12/04/18 12/06/18 09:00 History extended release 12 hr pravastatin 40 mg tablet 40 mg PO DAILY 12/04/18 Unknown History tapentadol 75 mg tablet 75 mg PO TID pain 12/04/18 12/06/18 09:00 History magnesium oxide 400 mg (241.3 mg 400 mg PO DAILY 04/16/19 Unknown History magnesium) tablet hydrocortisone 2.5 % topical cream 1 applic [place] QHS PRN hemorrhoids 05/17/21 Unknown Rx with perineal applicator #30 grams hyoscyamine sulfate 0.125 mg 0.25 mg (2 x 0.125 mg) PO Q6H PRN 04/08/23 Unknown Rx sublingual tablet epigastric discomfort #12 tabs trazodone 50 mg tablet 50 mg PO QHS PRN sleep #10 tabs 11/05/23 Unknown Rx Allergy/AdvReac Type Severity Reaction Status Date / Time azithromycin Allergy Rash Verified 11/05/23 05:24 Cephalosporins Allergy Rash Verified 11/05/23 05:24 mahoney (cherries) Allergy Angioedema Verified 11/05/23 05:24 codeine Allergy Rash Verified 11/05/23 05:24 diclofenac (Diclofenac) Allergy Rash Verified 11/05/23 05:24 hydrocodone bitartrate (From Allergy Rash Verified 11/05/23 05:24 Vicodin) hydromorphone HCl (From Allergy Rash Verified 11/05/23 05:24 Dilaudid) lemon Allergy Angioedema Verified 11/05/23 05:24 Penicillins Allergy Anaphylaxis Verified 11/05/23 05:24 Sulfa (Sulfonamide Allergy Rash Verified 11/05/23 05:24 Antibiotics) pear AdvReac NEEDS Verified 11/05/23 05:24 FOLLOW-UP soap AdvReac NEEDS Verified 11/05/23 05:24 FOLLOW-UP Family History Father Heart disease Other Thyroid disorder Surgical History History of partial colectomy History of appendectomy Presence of cardiac pacemaker (09/28/16) History of colectomy Tracheostomy in place Colostomy in place Social History household members: spouse Smoking Status: Former smoker quit date: 08/27/10 pack-years: 45 substance use type: does not use and marijuana ROS ROS ED Constitutional Constitutional ED: Denies chills, fever(s) or sweats Eyes Eyes: Denies change in vision ENT ENT ED: Denies dysphagia or sore throat Cardiovascular Cardiovascular: Denies chest pain, leg edema, palpitations or racing heartbeat Respiratory/Chest Respiratory/Chest: Denies cough, dyspnea or dyspnea on exertion Gastrointestinal Gastrointestinal: Denies abdominal pain, diarrhea, nausea or vomiting Genitourinary Genitourinary ED: Denies dysuria, hematuria or urinary frequency Musculoskeletal Musculoskeletal: Denies back pain, extremity pain or neck pain Integumentary Denies rash or wounds Neurologic Neurologic: Denies headache(s), paresthesias or weakness Psychiatric Psychiatric: Reports other Details: Insomnia ; Denies suicidal ideation or suicidal thoughts EXAM Physical Exam Const Vital Signs: 11/05/23 05:23 11/05/23 05:25 Temperature 97.7 F L Temperature Source Oral Pulse Rate 96 Respiratory Rate 16 Respiratory Effort Normal Blood Pressure 119/34 L Blood Pressure Mean 62 Pulse Ox 99 Oxygen Delivery Method Room Air Positive well nourished and well developed General Appearance ED: well developed and NAD HEENT Reports moist mucous membranes normocephalic and atraumatic Eyes EOMs intact bilaterally and conjunctivae normal General Eye ED: Yes normal appearance of both eyes Neck no lymphadenopathy and supple General: Negative for tenderness Chest Wall Chest: Negative for tenderness Resp normal respiratory effort and normal air movement Effort and Inspection: symmetric chest movement; Negative for respiratory distress Cardio regular rate, regular rhythm and no murmurs Peripheral Pulses: pulses 2+ throughout GI normal to inspection, nondistended, normoactive bowel sounds and non-tender Palpation: Negative for guarding or rebound tenderness present Back/Spine no CVA tenderness and no thoracic nor lumbar tenderness Extremity normal to inspection General Extremety ED: Negative for edema or tenderness General Extremity: Negative for edema Neuro oriented x3 and no sensory deficits noted Sensorium / Orientation: awake and alert Psych Psych Narrative: Denies suicidal homicidal ideations. Cooperative. In appropriate conversations. Skin no rashes or lesions noted and no wounds MDM MDM MDM Narrative Medical decision making narrative: Interventions / MDM: Differential diagnosis: Insomnia, multiple psychiatric disorders Diagnosis considered but do not suspect: No suicidal or homicidal ideations. My EKG interpretation: N/A Imaging independently reviewed and interpreted by myself: N/A External documents reviewed: N/A Test considered but not ordered:N/A ED course: Patient vital signs stable, nontoxic. Patient has history initially appears she stated Ambien slightly work for 2 weeks. States that might be the best medication for her to retry however she then stated she was on it for a year prior to that. She has not been on trazodone or Seroquel for a while. Discussed options are limited currently with her history reporting multiple medication trials with no relief. This time I offered her dose of trazodone in the ED to try to help her symptoms. She agrees. Prescription for a week supply written. I discussed for her to follow-up with her psychiatry team as they can likely best manage her insomnia symptoms. All questions were answered. Re-evaluation: stable Disposition discussed with patient/family/significant other: Patient and significant other Case discussed with consulting clinician: N/A This note was generated with [employer] dictation software. It may contain incorrect words, spelling, and punctuation that were not noted in checking the note before signing. Discharge Plan Triage Chief Complaint: Other, Pain/Inj ED Provider: Vlad Dia Dx/Rx/DC Orders Clinical Impression: Insomnia, History of schizophrenia, History of bipolar disorder, History of depression Instructions: ED Insomnia Prescriptions: New trazodone 50 mg tablet 50 mg PO QHS PRN (Reason: sleep) Qty: 10 0RF No Action glimepiride 4 mg tablet 4 mg PO DAILY 30 Days Qty: 30 Patient Comments: hydrocortisone 2.5 % cream 1 applic TOPICAL DAILY 30 Days Qty: 30 Patient Comments: thiothixene 2 mg capsule 2 mg PO DAILY 30 Days Qty: 30 Patient Comments: insulin glargine [Lantus Solostar U-100 Insulin] 100 unit/mL (3 mL) insulin pen 12 unit SC QHS PRN (Reason: hyperglycemia) Patient Comments: pt states she is on a sliding scale at home topiramate 100 mg tablet 100 mg PO BID Patient Comments: 1 tablet every morning melatonin-pyridoxine (vit B6) [Melatonin (with B6)] 1 EACH tablet 2 ea PO QHS amitriptyline 25 MG tablet 25 mg PO QHS omeprazole 20 MG capsule 20 mg PO DAILY pravastatin 40 MG tablet 40 mg PO DAILY fluphenazine HCl 1 MG tablet 1 mg PO QHS tapentadol 75 MG tablet 75 mg PO TID cariprazine 3 MG capsule 3 mg PO QHS guaifenesin 600 MG tablet extended release 12hr 600 mg PO TID magnesium oxide 400 MG tablet 400 mg PO DAILY Patient Comments: TAKE 1 TABLET BY MOUTH EVERY DAY hydrocortisone 2.5 % cream with perineal applicator 1 applic UT QHS PRN (Reason: hemorrhoids) Qty: 30 0RF hyoscyamine sulfate 0.125 mg tablet, sublingual 0.25 mg PO Q6H PRN (Reason: epigastric discomfort) Qty: 12 0RF Primary Care Provider: Vivian Meyer Referrals: Vivian Meyer MD [Primary Care Provider] - Activity Restrictions/Additional Instructions: Here we willing to try trazodone should help you sleep. Prescription sent to your pharmacy. I would recommend follow-up with your psychiatry team for discussion for continued treatment or changes in your medications. Print Language: [place] Disposition Disposition: Home, Self Care
[2023-11-05] MEDS: traZODone 50 MG Tablet PO (05:56)
== END 2023-11-05 05:57 | disposition home or self-care (01) ==
LOC: ED 05:56
PROVIDERS: Emergency Provider Emergency Medicine; PCP Internal Medicine; Visit Provider Emergency Medicine
DX: G47.00 Insomnia, unspecified (principal); F20.0 Paranoid schizophrenia; F31.9 Bipolar disorder, unspecified; J44.9 Chronic obstructive pulmonary disease, unspecified; E10.9 Type 1 diabetes mellitus without complications; I10 Essential (primary) hypertension; Z79.84 Long term (current) use of oral hypoglycemic drugs; Z79.899 Other long term (current) drug therapy; Z87.891 Personal history of nicotine dependence
CPT/HCPCS: 99282

== ENCOUNTER 2023-11-20 16:31 | Emergency (ER) | payer MEDICARE, MEDICAID, SELFPAY ==
[2023-11-20 16:31] VITALS: BP 136/65; PULSE 61; RESP 22; TEMP 37; O2SAT 93; BMI 28.0
--- NOTE | 2023-11-20 17:15 | EKG12_ITS ---
Test Reason : CP Blood Pressure : / mmHG Vent. Rate : 061 BPM Atrial Rate : 061 BPM P-R Int : 188 ms QRS Dur : 140 ms QT Int : 448 ms P-R-T Axes : 031 022 017 degrees QTc Int : 450 ms Normal sinus rhythm Right bundle branch block Abnormal ECG When compared with ECG of 08-APR-2023 17:39, No significant change was found Confirmed by Lio Harley ([id number]), sports editor MICHAEL MAURER ([id number]) on 11/27/2023 10:54:32 AM Referred By: Confirmed By:Lio Harley
--- NOTE | 2023-11-20 17:18 | EDS_ITS ---
HPI History of Present Illness Chief Complaint: Chest Pain Informant: patient and spouse/S.O. Narrative Narrative: Patient is a 63-year-old female with history of type 1 diabetes mellitus, hypertension, hyperlipidemia, GERD, anxiety, depression, schizophrenia, multiple personality disorder history of pacemaker and prior colon cancer with resection and colostomy presenting with chest pain and insomnia. Patient states that her chest has been killing her for about 24 hours. Its under her left breast. She thinks it is her pacemaker. She states she has a tiny bullet shaped pacemaker in that area. She states it is a new type from [facility]. She tells me its [employer] and she actually had it interrogated today and they said everything was normal with its function. She states this pain has been constant since Monday (2 days ago) and denies any radiation. She describes it as sharp pressure and achy. She knows she has pain when she takes a deep breath. Does not have any change in her symptoms with movement. Denies any swelling of her legs. Denies any difficulty breathing. No she has had a cough for the past month and a half is been productive of some phlegm. Denies associate abdominal pain, nausea, vomiting or change in her colostomy output. Denies a history of DVT or PE. Does have a history of asthma and COPD but denies any acute respiratory symptoms at this time. Tried taking ibuprofen for her symptoms with no relief. Patient also tells me that she has been doing with insomnia and she has not slept in the past 7 to 8 months. She states she does not sleep at all. She is on Belsomra and that was recently increased to 2 pills at night with no help. She states that she is been on multiple indications for her sleep with no improvement. She states she is sleeping 0 hours a night. She states that she has seen a sleep doctor, primary care doctor and a psychiatrist and they cannot figure it out. No other complaints or concerns reported. No acute change in the symptoms today. wonders if her not sleeping is causing her increased stress which is causing her chest pain today. Patient notes about 6 months ago she was seen for similar episode of chest pain. She states she got a medicine that dissolves under her tongue and did help some. She is not sure what it was. [facility] Medical History Schizophrenia Anxiety Depression Diabetes Former smoker Migraines Secondary pulmonary arterial hypertension Bradycardia Paranoid schizophrenia COPD (chronic obstructive pulmonary disease) Asthma Tracheitis Anxiety and depression GERD (gastroesophageal reflux disease) Colon cancer Obesity (BMI 30.0-34.9) Type I diabetes mellitus Hyperlipidemia Hypertension Home Medications ?Medication ?Instructions ?Recorded ?Last Taken ?Type topiramate 100 mg tablet 100 mg PO BID 03/01/17 12/06/18 09:00 History hydrocortisone 2.5 % topical cream 1 applic topical DAILY 30 days ##30 10/31/17 Unknown History insulin glargine 100 unit/mL (3 12 unit subcut QHS PRN 10/31/17 Unknown History mL) subcutaneous pen (Lantus hyperglycemia Solostar U-100 Insulin) glimepiride 4 mg tablet 4 mg PO DAILY 30 days ##30 11/01/17 Unknown History melatonin 5 mg-pyridoxine (vitamin 2 ea PO QHS 11/28/17 Unknown History B6) 1 mg tablet (Melatonin (with B6)) omeprazole 20 mg capsule,delayed 20 mg PO DAILY 12/04/17 12/06/18 09:00 History release cariprazine 3 mg capsule 3 mg PO QHS mental status 12/04/18 Unknown History fluphenazine HCl 1 mg tablet 1 mg PO QHS 12/04/18 Unknown History guaifenesin 600 mg tablet, 600 mg PO TID 12/04/18 12/06/18 09:00 History extended release 12 hr pravastatin 40 mg tablet 40 mg PO DAILY 12/04/18 Unknown History tapentadol 75 mg tablet 75 mg PO TID pain 12/04/18 12/06/18 09:00 History magnesium oxide 400 mg (241.3 mg 400 mg PO DAILY 04/16/19 Unknown History magnesium) tablet hydrocortisone 2.5 % topical cream 1 applic IN QHS PRN hemorrhoids 05/17/21 Unknown Rx with perineal applicator #30 grams hyoscyamine sulfate 0.125 mg 0.25 mg (2 x 0.125 mg) PO Q6H PRN 04/08/23 Unknown Rx sublingual tablet epigastric discomfort #12 tabs trazodone 50 mg tablet 50 mg PO QHS PRN sleep #10 tabs 11/05/23 Unknown Rx hyoscyamine sulfate 0.125 mg 0.125 mg sublingual Q8H PRN 11/20/23 Unknown Rx sublingual tablet (Levsin/SL) dyspepsia #20 tabs suvorexant 10 mg tablet (Belsomra) 20 mg PO DAILY 11/20/23 Unknown History valbenazine 80 mg capsule 80 mg PO DAILY 11/20/23 Unknown History (Ingrezza) Allergy/AdvReac Type Severity Reaction Status Date / Time azithromycin Allergy Rash Verified 11/20/23 16:40 Cephalosporins Allergy Rash Verified 11/20/23 16:40 mahoney (cherries) Allergy Angioedema Verified 11/20/23 16:40 codeine Allergy Rash Verified 11/20/23 16:40 diclofenac (Diclofenac) Allergy Rash Verified 11/20/23 16:40 hydrocodone bitartrate (From Allergy Rash Verified 11/20/23 16:40 Vicodin) hydromorphone HCl (From Allergy Rash Verified 11/20/23 16:40 Dilaudid) lemon Allergy Angioedema Verified 11/20/23 16:40 Penicillins Allergy Anaphylaxis Verified 11/20/23 16:40 Sulfa (Sulfonamide Allergy Rash Verified 11/20/23 16:40 Antibiotics) pear AdvReac NEEDS Verified 11/20/23 16:40 FOLLOW-UP soap AdvReac NEEDS Verified 11/20/23 16:40 FOLLOW-UP Family History Father Heart disease Other Thyroid disorder Surgical History History of partial colectomy History of appendectomy Presence of cardiac pacemaker (09/28/16) History of colectomy Tracheostomy in place Colostomy in place Social History household members: spouse Smoking Status: Former smoker quit date: 08/27/10 pack-years: 45 substance use type: does not use and marijuana ROS ROS ED Constitutional Constitutional ED: Denies chills, fever(s) or sweats Cardiovascular Cardiovascular: Reports chest pain; Denies palpitations or racing heartbeat Respiratory/Chest Respiratory/Chest: Reports cough and sputum; Denies dyspnea Gastrointestinal Gastrointestinal: Denies abdominal pain, constipation, nausea or vomiting Musculoskeletal Musculoskeletal: Denies arthralgias or myalgias Integumentary Denies rash Neurologic Neurologic: Denies paresthesias or weakness Psychiatric Psychiatric: Reports anxiety and other Details: insomnia Hematologic/Lymphatic Hematologic/Lymphatic: Denies easy bleeding or easy bruising EXAM Physical Exam Const Vital Signs: 11/20/23 16:31 11/20/23 16:36 11/20/23 17:14 Temperature 98.6 F Temperature Source Oral Pulse Rate 61 Respiratory Rate 22 H Respiratory Effort Short of Breath Blood Pressure 136/65 H Blood Pressure Mean 88 Pulse Ox 93 Oxygen Delivery Method Room Air Room Air 11/20/23 17:31 11/20/23 18:00 11/20/23 19:00 Temperature Temperature Source Pulse Rate 87 69 70 Respiratory Rate 16 16 16 Respiratory Effort Blood Pressure 135/70 H 109/65 120/67 Blood Pressure Mean 91 79 84 Pulse Ox 98 99 98 Oxygen Delivery Method Room Air Room Air 11/20/23 20:00 Temperature Temperature Source Pulse Rate 71 Respiratory Rate Respiratory Effort Blood Pressure 112/63 Blood Pressure Mean 79 Pulse Ox 98 Oxygen Delivery Method Room Air Positive well nourished and well developed General Appearance ED: well developed and NAD HEENT Reports moist mucous membranes normocephalic and atraumatic Neck supple and no JVD Chest Wall palpation of chest normal Chest Narrative: Mild TTP of the left anterior chest wall at the costalsternal junction. Chest: tenderness Resp normal respiratory effort and clear to auscultation bilaterally Cardio regular rate and regular rhythm GI normal to inspection, nondistended, normoactive bowel sounds and soft to palpation GI Narrative: Colostomy in place Extremity normal to inspection General Extremety ED: Negative for edema General Extremity: Negative for edema Neuro oriented x3 Sensorium / Orientation: awake and alert Motor Exam: Negative for general weakness Psych mental status grossly normal Mood & Affect: depressed; Negative for tearful Skin no rashes or lesions noted Heart Score History: Slightly/Non-Suspicious ECG: Nonspecific Repolarization Age: >/= 65 years Risk Factors: >/= 3 Risk Factors or History of CAD Troponin: </= Normal Limit Score: 5 MDM MDM MDM Narrative Medical decision making narrative: Patient is evaluated for chest pain. She states she had a prior episode of chest pain. I did review this ER note at that time patient's and pain improved with Levsin. Patient does not have improvement of her pain with nitro. Her lab work is largely stable. Her D-dimer is normal and suspicion for pulmonary emboli. Her hemoglobin is actually uptrending at 9.6. CMP at her baseline with some mild hyperglycemia consistent with history of type 1 diabetes mellitus and creatinine of 1.19 which is her baseline. 2 view chest x-ray viewed by myself as well as radiology does not show any acute process. Patient states she had her pacemaker interrogated today so do not think this needs to be performed. Patient spends more time talking to me about her insomnia. I discussed that I do not feel comfortable prescribing her medication for insomnia especially given that she has failed multiple medications and sees a psychiatrist as well as a sleep specialist. She also has a lot of comorbidities I do not feel comfortable prescribing her sedating medications. I did discuss with her and family that there is no obvious cause for her insomnia on her blood work or workup today and that this needs outpatient specialist follow-up. Will give her referral for different psychiatrist since she is not happy at the one she sees. Will give her prescription for Levsin. She can follow-up outpatient for her chest pain at this time I do not think she requires admission for it as she does not have elevation of troponin, acute EKG changes and clinically of a lower suspicion for an acute cardiac process for the cause of her symptoms. Lab Data Attestation: I reviewed the patient's lab results. Labs: Laboratory Results - last 24 hr 11/20/23 16:06 WBC 6.8 RBC 3.41 L Hgb 9.6 L Hct 32.1 L MCV 94.1 MCH 28.2 MCHC 29.9 L RDW Std Deviation 50.1 H RDW Coeff of Gali 14.6 Plt Count 199 MPV 9.8 Immature Gran % (Auto) 0.400 Neut % (Auto) 78.8 H Lymph % (Auto) 15.2 L [place] % (Auto) 4.4 Eos % (Auto) 0.9 Baso % (Auto) 0.3 Absolute Neuts (auto) 5.3 Absolute Lymphs (auto) 1.03 Nucleated RBC % 0 D-Dimer Quant (PE/DVT) 0.44 Sodium 136 Potassium 4.2 Chloride 104 Carbon Dioxide 23.0 Anion Gap 9 BUN 21 H Creatinine 1.19 H Estim Creat Clear Calc 49.96 Est GFR (MDRD) Af Amer 59 L Est GFR (MDRD) Non-Af 48 L BUN/Creatinine Ratio 17.6 Glucose 178 H Calcium 8.7 Total Bilirubin 0.40 Direct Bilirubin 0.14 AST 13 L ALT 18 Alkaline Phosphatase 64 Troponin I High Sens 7 Total Protein 6.8 Albumin 3.0 L Globulin 3.8 Lipase 25 Radiography Diagnostic Testing: Clinical Impression(s) from Imaging Studies Chest X-Ray 11/20/23 17:32 IMPRESSION: No acute cardiac pulmonary pathology Electronically Signed: Arvind Keys MD at 18:10 EDT Reading Location ID and State: [facility] / [place] Tel , Service support , Rhythm Strip Rhythm Strip: Sinus Rhythm Rate: 61 Ectopy: None EKG Initial EKG: Attestation: I personally reviewed and interpreted this EKG as follows: Interpretation: Sinus Rhythm Comments: Normal sinus rhythm rate of 61 bpm Normal axis Right bundle branch block Normal ST segments with nonspecific T wave version in V1 and V2 which could be normal variants No change to prior EKG on 04/08/2023 Prior EKG tracings: available for review Prior: Unchanged Discharge Plan Triage Chief Complaint: Chest Pain ED Provider: Cynthia Schwarz Dx/Rx/DC Orders Clinical Impression: Chest pain, Presence of cardiac pacemaker, Insomnia Instructions: ED Chest Pain, Uncertain Cause, ED Insomnia Prescriptions: New hyoscyamine sulfate [Levsin/SL] 0.125 mg tablet, sublingual 0.125 mg sublingual Q8H PRN (Reason: dyspepsia) Qty: 20 0RF No Action glimepiride 4 mg tablet 4 mg PO DAILY 30 Days Qty: 30 Patient Comments: hydrocortisone 2.5 % cream 1 applic TOPICAL DAILY 30 Days Qty: 30 Patient Comments: insulin glargine [Lantus Solostar U-100 Insulin] 100 unit/mL (3 mL) insulin pen 12 unit SC QHS PRN (Reason: hyperglycemia) Patient Comments: pt states she is on a sliding scale at home topiramate 100 mg tablet 100 mg PO BID Patient Comments: 1 tablet every morning melatonin-pyridoxine (vit B6) [Melatonin (with B6)] 1 EACH tablet 2 ea PO QHS omeprazole 20 MG capsule 20 mg PO DAILY pravastatin 40 MG tablet 40 mg PO DAILY fluphenazine HCl 1 MG tablet 1 mg PO QHS tapentadol 75 MG tablet 75 mg PO TID cariprazine 3 MG capsule 3 mg PO QHS guaifenesin 600 MG tablet extended release 12hr 600 mg PO TID magnesium oxide 400 MG tablet 400 mg PO DAILY Patient Comments: TAKE 1 TABLET BY MOUTH EVERY DAY hydrocortisone 2.5 % cream with perineal applicator 1 applic IN QHS PRN (Reason: hemorrhoids) Qty: 30 0RF hyoscyamine sulfate 0.125 mg tablet, sublingual 0.25 mg PO Q6H PRN (Reason: epigastric discomfort) Qty: 12 0RF trazodone 50 mg tablet 50 mg PO QHS PRN (Reason: sleep) Qty: 10 0RF Belsomra 10 mg tablet 20 mg PO DAILY Ingrezza 80 mg capsule 80 mg PO DAILY Primary Care Provider: Vivian Meyer Referrals: Vivian Meyer MD [Primary Care Provider] - Shin Garner DO [Med Staff - Firestopper Installer] - As soon as possible Activity Restrictions/Additional Instructions: The cause of your chest pain as well as your continued insomnia is not clear. Your workup was very reassuring today. Please continue to follow-up with your specialist. I given you a referral for new psychiatrist to get a second opinion. Hopefully this medication, Levsin, will help with the pain as it did in the past. Print Language: Slovenian Disposition Disposition: Home, Self Care Discharge Date/Time: 11/20/23 21:59
[2023-11-20 17:31] VITALS: BP 135/70; PULSE 87; RESP 16; O2SAT 98
--- NOTE | 2023-11-20 17:32 | RAD_ITS ---
STUDY: X-RAY CHEST REASON FOR EXAM: Female, 63 years old. chest pain TECHNIQUE: PA and lateral COMPARISON: April 08, 2023 FINDINGS: Minor reticulonodular interstitial thickening in the right lower lobe. Lungs are clear of infiltration. There is no demonstrated pleural abnormality. Normal size heart. Normal mediastinum and erick. Normal visualized pulmonary arteries. Normal visualized aortic arch and descending thoracic aorta. Normal visualized thoracic spine. Normal visualized ribs, clavicles, and shoulders. There is no demonstrated abnormality of the visualized soft tissue structures of the upper abdomen. No significant change since prior exam RAD/Chest PA and Lateral IMPRESSION: No acute cardiac pulmonary pathology Electronically Signed: Arvind Keys MD at 18:10 EDT ,
[2023-11-20 17:33] LABS: Absolute Lymphocyte Count 1.03 X10^3/uL (0.83-4.51); Absolute Neutrophil Count 5.3 X10^3/uL (2.0-7.7); Basophil# 0.02 X10^3/uL; Basophil% 0.3 % (0-1); Eosinophil# 0.06 X10^3/uL; Eosinophils% 0.9 % (0-5); Hematocrit 32.1 % (37-47); Hemoglobin 9.6 g/dL (12.0-15.0); Lymphocyte # 1.03 X10^3/ul (0.83-4.51); Lymphocyte % 15.2 % (19-41); Mean Corp Hgb Conc 29.9 g/dL (32-36); Mean Corpuscular Hgb 28.2 pg (27.0-32.0); Mean Corpuscular Volume 94.1 fL (81-99); Mean Platelet Vol. 9.8 fl (6.2-12.0); Monocyte% 4.4 % (0-10); NRBC Flagged by Analyzer 0 % (0-5); Neutrophil # 5.32 X10^3/uL (2.7-7.7); Neutrophil % 78.8 % (47-70); Platelet Count 199 K/mm3 (150-450); RBC Distribution Width CV 14.6 % (11.6-14.6); RBC Distribution Width SD 50.1 fl (35.1-43.9); Red Blood Count 3.41 M/mm3 (4.2-5.4); White Blood Count 6.8 K/mm3 (4.4-11.0)
[2023-11-20 17:46] LABS: D-Dimer Quantitative (DVT/PE) 0.44 FEU/ug/m (0.27-0.49)
[2023-11-20 17:52] LABS: AST(SGOT) 13 U/L (15-37); Alanine Aminotransfer ALT/SGPT 18 U/L (13-56); Alkaline Phosphatase 64 U/L (45-117); Anion Gap 9 (5-15); BUN 21 mg/dL (7-18); BUN/Creat Ratio 17.6 RATIO (10-20); Bilirubin, Direct 0.14 mg/dL (0.00-0.30); Calcium,Total 8.7 mg/dL (8.5-10.1); Chloride 104 mmol/L (98-107); Creatinine, Serum 1.19 mg/dL (0.55-1.02); EST Glomerular Filtration Rate 48 mL/min (>60); Est Glom Filt Rate - Afr Amer 59 mL/min (>60); Estimated Creatinine Clearance 49.96 ml/min; Globulin 3.8 g/dL (2.2-4.2); Glucose 178 mg/dL (74-106); Lipase 25 U/L (13-75); Potassium 4.2 mmol/L (3.5-5.1); Protein, Total 6.8 g/dL (6.4-8.2); Sodium Level 136 mmol/L (136-145); Troponin-I HS 7 pg/mL (3.0-54.0)
[2023-11-20 18:00] VITALS: BP 109/65; PULSE 69; RESP 16; O2SAT 99
[2023-11-20 19:00] VITALS: BP 120/67; PULSE 70; RESP 16; O2SAT 98
[2023-11-20 20:00] VITALS: BP 112/63; PULSE 71; O2SAT 98
--- NOTE | 2023-11-20 20:21 | ED.RN ---
PATIENTS VISITOR IN [place] ASKING IF HE COULD INTERRUPT US. VISITOR STATES WE HAVE BEEN HERE 6 HOURS AND ARE DONE WAITING. THIS RN INFORMS VISITOR THE DOCTOR IS HELD UP WITH A VERY SICK PATIENT AT THIS TIME. VISITOR STATES YOU GUYS HAVE ALREADY TOLD US THIS. WE HAVE BEEN HERE FOR 6 HOURS. RN STATES YOU HAVE BEEN HERE FOR 3 HOURS 44 MINUTES. VISITOR STATES OK WELL MY WHOLE DAY IS SHOT. RN STATES I AM SORRY YOU HAVE BEEN WAITING AWHILE BUT IF YOU WOULD LIKE US TO TAKE OUT THE IV SO YOU CAN LEAVE WE CAN DO THAT. VISITOR STATES NO, WE WANT OUR RESULTS AND WALKS BACK INTO ROOM
--- NOTE | 2023-11-20 20:25 | ED.RN ---
PTS CAME OUT WANTING TO KNOW HOW MUCH LONGER THEY WERE GOING TO HAVE TO WAIT FOR THE DR. THIS NURSE HAS EXPLAINED TO THE PT AND PT PRIOR THAT THE DR IS IN AN EMERGENT CALL AND WILL TEND TO THEM SOON SHE CAN. PT THEN CAME OUT TO NURSES STATION ASKING SAME THING. THIS NURSE AND NURSE FATOU RESTATED DR. OSBORN IS IN AN EMERGENT CALL AND WILL BE WITH THEM SOON POSSIBLE. PT THEN STATED THEY WERE LEAVING. FATOU RN OFFERED TO TAKE OUT PT IV. PT DECLINED, PT SAID THEY WILL WAIT ONE MORE HOUR THEN THEY WILL LEAVE. DR OSBORN NOTIFIED.
[2023-11-20] MEDS: Hyoscyamine Sulfate 0.125 MG Tablet SL (21:56)
== END 2023-11-20 21:59 | disposition home or self-care (01) ==
PROVIDERS: Emergency Provider Emergency Medicine; PCP Internal Medicine; Visit Provider Emergency Medicine
DX: R07.9 Chest pain, unspecified (principal); J44.9 Chronic obstructive pulmonary disease, unspecified; E10.9 Type 1 diabetes mellitus without complications; Z79.4 Long term (current) use of insulin; G47.00 Insomnia, unspecified; F41.9 Anxiety disorder, unspecified; E78.5 Hyperlipidemia, unspecified; I10 Essential (primary) hypertension; Z79.84 Long term (current) use of oral hypoglycemic drugs; Z79.899 Other long term (current) drug therapy; Z95.0 Presence of cardiac pacemaker; Z87.891 Personal history of nicotine dependence
CPT/HCPCS: 71046; 80048; 80076; 83690; 84484; 85025; 85379; 93005; 99285

== ENCOUNTER 2024-11-28 17:56 | Emergency (ER) | payer MEDICARE, MEDICAID, SELFPAY ==
[2024-11-28 17:57] VITALS: BP 165/67; PULSE 63; RESP 18; TEMP 36.4; O2SAT 97; BMI 27.7
--- OUTSIDE RECORDS SUMMARY | 2024-11-28 19:30 | XMS RPT_ITS | CCD ---
Author Organization [facility] Care Team Providers Care Hired Hand Name Role Phone Tiff Pearson MD Primary Care Provider Dr. Tiff Pearson Primary Care Provider Dr. Tiff Pearson Referring Provider Elisabeth Chapman Attending Provider Unavailable Dr. Braden Londono Attending Provider [phone] Braden Londono Referring Provider [phone] Jane Quiana veronica Unavailable Fredo RN, Fernanda Unavailable Unavailable Fredo RN, Fernanda Unavailable Unavailable Tiff Pearson MD Primary Care Provider Dr. Tiff Pearson Primary Care Provider Dr. Tiff Pearson Referring Provider Dr. Braden Londono Attending Provider [phone] Tiff Pearson MD Primary Care Provider Dr. Tiff Pearson Primary Care Provider Dr. Tiff Pearson Referring Provider Dr. Braden Londono Attending Provider [phone] Elisabeth Chapman Attending Provider Unavailable Dr. Tiff Pearson Primary Care Provider Dr. Tiff Pearson Referring Provider PEG Escobar Attending Provider SELF Referring Unavailable FERNANDA ROSENBAUM Attending Unavailable TIFF PEARSON Primary Care Unavailable Dr. Tiff Pearson Primary Care Provider Dr. Tiff Pearson Referring Provider PEG Escobar Attending Provider Dr. Braden Londono Attending Provider PEG Valente Attending Provider PEG Valente Other Provider Tiff Pearson MD Primary Care Provider Fredo RN, Fernanda Unavailable Gabriel CASING IN LINE FEEDER.METAL MOCKUP MAKER, Esteban Unavailable Yann CASING IN LINE FEEDER.BASKET PATCHER, Shawn Unavailable DORYS AWAD DO Admitting Unavailable DORYS AWAD DO Attending Unavailable DORYS AWAD DO Primary Care Unavailable TIFF PEARSON MD Consulting Unavailable TIFF PEARSON MD Referring Unavailable PROVIDER, UNKNOWN Consulting Unavailable CHRISTEL WARNER Admitting Unavailable CHRISTEL WARNER Attending Unavailable CHRISTEL WARNER Primary Care Unavailable TIFF PEARSON MD Consulting Unavailable TIFF PEARSON MD Referring Unavailable PROVIDER, UNKNOWN Consulting Unavailable Yann CASING IN LINE FEEDER.BASKET PATCHER, Shawn Unavailable Yann CASING IN LINE FEEDER.BASKET PATCHER, Shawn Unavailable Gabriel CASING IN LINE FEEDER.METAL MOCKUP MAKER, Esteban Unavailable Dr. Tiff Pearson MD Primary Care Provider Dr. Braden Londono MD Attending Provider Mitch Tiff Matilde Primary Care Unavailable Spring, Braden Attending Unavailable Spring, Braden Attending Unavailable Talampas, Tiff D Primary Care Unavailable SpringBraden johnston Attending Unavailable Fredampomkar, Tiff D Primary Care Unavailable Spring, Braden Attending Unavailable Talampas, Tiff D Primary Care Unavailable Talampas, Tiff D Primary Care Unavailable Vlad Dia Attending Unavailable Talampas, Tiff D Primary Care Unavailable Cynthia Schwarz Attending Unavailable Spring, Braden Attending Unavailable Talampas, Tiff D Primary Care Unavailable SHAWN VERONICA Attending Unavailable TALAMPAS, TIFF D Primary Care Unavailable SUZANNA ESCALANTE Attending Unavailable TALAMPAS, TIFF D Primary Care Unavailable TALAMPAS, TIFF D Primary Care Unavailable GABRIEL, ESTEBAN Attending Unavailable TALAMPAS, TIFF D Primary Care Unavailable TALAMPAS, TIFF D Referring Unavailable TALAMPAS, TIFF D Primary Care Unavailable TALAMPAS, TIFF D Attending Unavailable SELF Referring Unavailable TALAMPAS, TIFF D Primary Care Unavailable GABRIEL, ESTEBAN Attending Unavailable TALAMPAS, TIFF D Primary Care Unavailable TESTSUZANNA COLLIER Attending Unavailable TALAMPAS, TIFF D Primary Care Unavailable GABRIEL, ESTEBAN Referring Unavailable TALAMPAS, TIFF D Primary Care Unavailable GABRIEL, ESTEBAN Attending Unavailable TALAMPAS, TIFF D Primary Care Unavailable Allergies Allergy Classification Reported Allergen(s) Allergy Type Date of Onset Reaction(s) Facility Acetaminophen / HYDROcodone (1 source) Acetaminophen / HYDROcodone Drug Allergy 05-22-19 10 Rash [facility] Work Phone: Acetaminophen / oxyCODONE (1 source) Acetaminophen / oxyCODONE Drug Allergy 08-14-19 05 Itching [facility] Cephalosporins (antibiotic) (1 source) Cephalosporins (Antibiotic) Drug Allergy 04-03-19 04 [facility] goss allergenic extract (1 source) goss allergenic extract Drug Allergy 08-02-19 22 Other: See Comments [facility] Work Phone: HMG-CoA Reductase Inhibitors (statins) (1 source) atorvastatin Drug Allergy 05-08-19 19 Itching [facility] Lemon extract (1 source) Lemon extract Drug Allergy 08-02-19 22 Other: See Comments [facility] Macrolides (antibiotic) (1 source) Azithromycin Drug Allergy 03-24-19 17 Rash [facility] Work Phone: NSAIDs (1 source) Diclofenac Drug Allergy 08-28-19 04 [facility] Opioid Agonists (2 sources) Codeine Drug Allergy 04-03-19 04 Itching [facility] Penicillins (antibiotic) (1 source) Penicillins Drug Allergy 04-03-19 04 Anaphylaxis [facility] pregabalin (1 source) pregabalin Drug Allergy 07-05-19 18 Swelling [facility] Work Phone: Quinolones (antibiotic) (1 source) Ciprofloxacin Drug Allergy 09-12-19 17 Anaphylaxis [facility] Work Phone: Sulfonamides (antibiotic) (1 source) Sulfonamides (Antibiotic) Drug Allergy 12-05-19 19 [facility] (20 sources) Acetaminophen / HYDROcodone; Translations: [HYDROCODONE-ACETA MINOPHEN] Drug Allergy 05-22-19 10 [facility] Work Phone: (20 sources) Acetaminophen / oxyCODONE; Translations: [OXYCODONE-ACETAMI NOPHEN] Drug Allergy 08-14-19 05 Itching [facility] (20 sources) atorvastatin; Translations: [ATORVASTATIN CALCIUM] [facility] All[facility] ([facility]) Azithromycin; Translations: [AZITHROMYCIN] Drug Allergy 03-24-19 17 [facility] Work Phone: (20 sources) Cephalosporins (Antibiotic); Translations: [CEPHALOSPORINS] Propensity to adverse reactions 04-03-19 04 [facility] (20 sources) Ciprofloxacin; Translations: [CIPROFLOXACIN] Drug Allergy 09-12-19 17 [facility] Work Phone: (20 sources) Codeine; Translations: [CODEINE] Drug Allergy 04-03-19 04 [facility] (20 sources) Diclofenac; Translations: [DICLOFENAC] Drug Allergy 08-28-19 04 [facility] (20 sources) HYDROmorphone; Translations: [HYDROMORPHONE (BULK)] Drug Allergy [facility]-10-[facility] Morphinan opioid; Translations: [OPIOIDS - MORPHINE ANALOGUES] Propensity to adverse reactions 08-28-19 04 [facility] (20 sources) Penicillins; Translations: [PENICILLINS] Drug Allergy 04-03-19 04 Anaphylaxis [facility] (20 sources) pregabalin; Translations: [PREGABALIN] Drug Allergy 07-05-19 18 Swelling [facility] Work Phone: (8 sources) Cherries [Other] Propensity to adverse reactions 04-03-19 04 [facility] (8 sources) Jennyfer [Other] Propensity to adverse reactions 04-03-19 04 [facility] (8 sources) Pears [Other] Propensity to adverse reactions 10-09-19 04 [facility] (20 sources) Soap; Translations: [SOAP] Propensity to adverse reactions 05-31-19 07 Unknown, NEEDS FOLLOW-UP [facility] Work Phone: Comment on above: patient states i ca nnot use hand soap. I have to use body soap. (14 sources) HYDROcodone; Translations: [hydrocodone bitartrate] Drug Allergy 06-11-19 [facility] (14 sources) HYDROmorphone; Translations: [hydromorphone HCl] Drug Allergy 06-11-19 [facility] (20 sources) Sulfonamides (Antibiotic); Translations: [SULFA (SULFONAMIDE ANTIBIOTICS)] Allergy to substance 12-05-19 Rash [facility] (5 sources) cherries Allergy to substance 06-11-19 Angioedema [facility] Work Phone: (5 sources) jennyfer Allergy to substance 06-11-19 Angioedema [facility] Work Phone: (20 sources) pears; Translations: [PEARS] Propensity to adverse reactions 06-11-19 Unknown [facility] (20 sources) goss allergenic extract; Translations: [GOSS] Drug Allergy 08-02-19 Other: See Comments [facility] (20 sources) Lemon extract; Translations: [LEMON] Drug Allergy 08-02-19 Other: See Comments [facility] (20 sources) Cephalosporins (Antibiotic) Propensity to adverse reactions 04-03-19 04 [facility] (20 sources) Penicillins Drug Allergy 04-03-19 04 Anaphylaxis [facility] (8 sources) Cephalosporins (Antibiotic) Allergy to substance 03-02-20 Rash [facility] (8 sources) Pear Preparation Drug Allergy 03-02-20 NEEDS FOLLOW-UP [facility] (8 sources) Penicillins Allergy to substance 03-02-20 22 Anaphylaxis [facility] (1 source) Opioids - Morphine Analogues Allergy to substance 03-02-20 [facility] Work Phone: (1 source) Acetaminophen / HYDROcodone Drug Allergy [facility] (1 source) Aspirin Drug Allergy [facility] (1 source) Cephalexin Drug Allergy [facility] (1 source) Codeine Drug Allergy [facility] (1 source) Morphine Drug Allergy [facility] (1 source) Penicillins Drug allergy (disorder) [facility] (15 sources) Penicillins Drug Allergy 04-03-19 Anaphylaxis [facility] (1 source) Azithromycin Drug Allergy 11-20-19 [facility] (1 source) Cephalosporins (Antibiotic) Drug allergy (disorder) 11-20-19 [facility] (1 source) goss allergenic extract Drug Allergy 11-20-19 [facility] (1 source) Codeine Drug Allergy 11-20-19 [facility] (1 source) Diclofenac Drug Allergy 11-20-19 [facility] (1 source) Lemon extract Drug Allergy 11-20-19 [facility] (1 source) Pear Preparation Drug Allergy 11-20-19 [facility] (1 source) Penicillins Drug allergy (disorder) 11-20-19 [facility] (1 source) soap Drug allergy (disorder) 11-20-19 [facility] Medications Current Medications Medication Drug Class(es) Dates Sig (Normalized) Sig (Original) albuterol 0.833 mg/ml / ipratropium bromide 0.167 mg/ml inhalation solution (20 sources) Anticholinergic, beta2-Adrenergic Agonist Start: 09-29-2020 End: 10-07-2024 take 3 mL by inhalation four times daily as needed for wheezing ipratropium-albuter ol (DUONEB) 0.5 mg-3 mg(2.5 mg base)/3 mL nebu Indications: Intermittent asthma without complication, unspecified asthma severity (HCC) Inhale 3 mL as instructed four times a day as needed (wheezing). Use over 5-15minutes per nebulizer. 380 each 3 10/07/2024 Active Start: 10-31-2017 take 1 mL by inhalat ion four times daily Ipratropium-Albuterol Active 3 ML INHALATION 4 TIMES DAILY October 31, 2017 11:09am Comment on above: Inhale 3 mL as instr ucted four times daily as needed (wheezing). Use over 5-15minutes per nebulizer. Blood-Glucose Meter monitoring kit (1 source) Start: 11-08-19 End: 11-08-19 Blood-Glucose Meter monitoring kit Indications: Type 2 diabetes mellitus without complication, with long-term current use of insulin (HCC) Glucose Meter of Choice - Kit - Dx: Type 2 DM - Uncontrolled E11.65 Insulin Yes Insurance covers One Touch or Accucheck 1 Each 11/08/2023 11/08/2023 Active cariprazine 3 mg oral capsule (20 sources) Atypical Antipsychotic Start: 03-03-20 16 End: 11-01-19 take 1 capsule by mouth once daily at bedtime VRAYLAR 3 mg cap Take 3 mg by mouth daily at bedtime. 03/03/2016 Active Comment on above: Take 3 mg by mouth d aily at bedtime. cephalexin 500 mg oral capsule (5 sources) Cephalosporin Antibacterial Start: 08-06-19 End: 08-14-19 take 1 capsule by mouth four times daily cephALEXin (KEFLEX) 500 mg capsule Take 1 capsule by mouth four times daily for 7 days. 28 capsule 0 08/05/2021 08/13/2021 Active Comment on above: Take 1 capsule by [facility] four times daily for 7 days. ciprofloxacin 500 mg oral tablet (2 sources) Quinolone Antimicrobial Start: 06-11-19 take 500 mg by mouth twice daily Ciprofloxacin Hcl Active 500 MG PO TWICE A DAY June 10, 2021 8:39pm clotrimazole 10 mg/ml topical cream (20 sources) Azole Antifungal Start: 11-17-19 23 End: 08-02-19 24 clotrimazole (LOTRIMIN) 1 % cream Apply to affected area two times a day. 28 g 2 08/02/2023 Active Comment on above: Apply to affected ar ea twice daily. doxycycline hyclate 100 mg oral tablet (20 sources) Tetracycline-class Drug Start: 11-13-19 End: 11-20-19 take 1 tablet by mouth twice daily at mealtime doxycycline (VIBRA-TABS) 100 mg tablet Indications: Labial lesion Take 1 tablet by mouth two times a day for 7 days. Take with food 14 tablet 11/12/2024 11/19/2024 Active Start: 02-08-2023 End: 02-22-2023 take 1 tablet by mouth twice daily doxycycline (VIBRA-TABS) 100 mg tablet Indications: Abscess Take 1 tablet by mouth two times a day for 14 days. 28 tablet 0 02/08/2023 02/22/2023 Active Start: 01-08-2023 End: 01-15-2023 take 1 tablet by mouth twice daily doxycycline (VIBRA-TABS) 100 mg tablet Take 1 tablet by mouth two times a day for 7 days. 14 tablet 01/08/2023 01/15/2023 Start: 11-01-2022 End: 11-11-2022 take 1 tablet by mouth twice daily doxycycline (VIBRA-TABS) 100 mg tablet Indications: Wheezing , Acute cough Take 1 tablet by mouth twice daily for 10 days. 20 tablet 0 11/01/2022 11/11/2022 Active Start: 04-30-2022 End: 05-07-2022 take 1 tablet by mouth twice daily doxycycline (VIBRA-TABS) 100 mg tablet Take 1 tablet by mouth twice daily for 7 days. 14 tablet 0 04/30/2022 05/07/2022 Active Start: 08-09-2021 End: 08-22-2021 take 1 tablet by mouth twice daily doxycycline (VIBRA-TABS) 100 mg tablet Indications: Sinobronchitis Take 1 tablet by mouth twice daily for 5 days. 10 tablet 0 08/17/2021 08/22/2021 Active Start: 07-28-2020 take 1 capsule by [facility] twice daily doxycycline hyclate (VIBRAMYCIN) 100 mg capsule Take 1 capsule by mouth twice daily. 14 capsule 0 07/28/2020 Active Start: 05-03-2018 End: 05-13-2018 take 1 capsule by mouth twice daily Doxycycline Monohydrate 100 MG capsule Discontinued 100 mg PO TWICE A DAY 10 May 03, 2018 1:00am May 12, 2018 1:00am May 13, 2018 1:09am Start: 02-25-2017 End: 10-31-2017 take 1 capsule by mouth twice daily Doxycycline Monohydrate 100 MG capsule Discontinued 100 mg PO TWICE A DAY February 25, 2017 1:00am October 31, 2017 10:44am Comment on above: Take 1 capsule by mo ut twice daily. Take 1 tablet by [facility] twice daily for 7 days. Take 1 tablet by [facility] twice daily for 5 days. Take 1 tablet by [facility] twice daily for 10 days. Take 1 tablet by [facility] two times a day for 7 days. Take 1 tablet by [facility] two times a day for 14 days. fluPHENAZine hydrochloride 1 mg oral tablet (20 sources) Phenothiazine Start: 05-06-19 take 3 tablets by mouth once daily fluPHENAZine (PROLIXIN) 1 mg tablet Take 3 mg by mouth once daily. 05/05/2020 Active Start: 12-04-2018 take 1 tablet by [facility] at bedtime Fluphenazine Hcl 1 MG tablet Active 1 mg PO AT BEDTIME December 04, 2018 12:00am Comment on above: Take 3 mg by mouth o nce daily. fluticasone / salmeterol (20 sources) Corticosteroid, beta2-Adrenergic Agonist Start: 07-21-2023 take 1 puff(s) by mouth twice daily fluticasone-salmetero l (ADVAIR DISKUS) 100-50 mcg/dose inhaler Indications: Wheezing , Acute cough , Chronic obstructive pulmonary disease, unspecified COPD type (HCC) , Asthma with COPD with exacerbation (HCC) Inhale 1 Puff as instructed two times a day. Rinse mouth out after use with water. 1 Each 2 07/21/2023 Active Start: 07-21-2023 take 1 puff(s) by [facility] twice daily fluticasone-salmeterol (ADVAIR DISKUS) 100-50 mcg/dose inhaler Indications: Wheezing , Acute cough , Chronic obstructive pulmonary disease, unspecified COPD type (HCC) , Asthma with COPD with exacerbation (HCC) (HCC) Inhale 1 Puff as instructed two times a day. Rinse mouth out after use with water. 1 Each 2 07/21/2023 Active Start: 04-26-2023 End: 07-21-2023 take 1 puff(s) by mouth twice daily fluticasone-salmeterol (ADVAIR DISKUS) 100-50 mcg/dose inhaler Indications: Wheezing , Acute cough , Chronic obstructive pulmonary disease, unspecified COPD type (HCC) , Asthma with COPD with exacerbation (HCC) (HCC) Inhale 1 Puff as instructed two times a day. Rinse mouth out after use with water. 1 Each 2 04/26/2023 07/21/2023 Discontinued Start: 04-26-2023 take 1 puff(s) by mo [facility] twice daily fluticasone-salmeterol (ADVAIR DISKUS) 100-50 mcg/dose inhaler Indications: Wheezing , Acute cough , Chronic obstructive pulmonary disease, unspecified COPD type (HCC) , Asthma with COPD with exacerbation (HCC) (HCC) Inhale 1 Puff as instructed two times a day. Rinse mouth out after use with water. 1 Each 2 04/26/2023 Active Start: 01-09-2023 End: 04-26-2023 take 1 puff(s) by mouth twice daily fluticasone-salmeterol (ADVAIR DISKUS) 100-50 mcg/dose inhaler Indications: Wheezing , Acute cough , Chronic obstructive pulmonary disease, unspecified COPD type (HCC) , Asthma with COPD with exacerbation (HCC) (HCC) Inhale 1 Puff as instructed two times a day. Rinse mouth out after use with water. 1 Each 2 01/09/2023 04/26/2023 Discontinued Start: 01-09-2023 take 1 puff(s) by mo [facility] twice daily fluticasone-salmeterol (ADVAIR DISKUS) 100-50 mcg/dose inhaler Indications: Wheezing , Acute cough , Chronic obstructive pulmonary disease, unspecified COPD type (HCC) , Asthma with COPD with exacerbation (HCC) (HCC) Inhale 1 Puff as instructed two times a day. Rinse mouth out after use with water. 1 Each 2 01/09/2023 Active Start: 01-09-2023 take 1 puff(s) by mo [facility] twice daily fluticasone-salmeterol (ADVAIR DISKUS) 100-50 mcg/dose inhaler Indications: Wheezing , Acute cough , Chronic obstructive pulmonary disease, unspecified COPD type (HCC) , Asthma with COPD with exacerbation (HCC) Inhale 1 Puff as instructed two times a day. Rinse mouth out after use with water. 1 Each 2 01/09/2023 Active Start: 11-01-2022 End: 01-09-2023 take 1 puff(s) by mouth twice daily fluticasone-salmeterol (ADVAIR DISKUS) 100-50 mcg/dose inhaler Indications: Wheezing , Acute cough , Chronic obstructive pulmonary disease, unspecified COPD type (HCC) , Asthma with COPD with exacerbation (HCC) Inhale 1 Puff as instructed twice daily. Rinse mouth out after use with water. 1 Each 2 11/01/2022 01/09/2023 Discontinued Start: 11-01-2022 take 1 puff(s) by mo ut twice daily fluticasone-salmeterol (ADVAIR DISKUS) 100-50 mcg/dose inhaler Indications: Wheezing , Acute cough , Chronic obstructive pulmonary disease, unspecified COPD type (HCC) , Asthma with COPD with exacerbation (HCC) Inhale 1 Puff as instructed twice daily. Rinse mouth out after use with water. 1 Each 2 11/01/2022 Active Start: 03-24-2013 End: 02-22-2015 take 1 puff(s) by inhalation twice daily Fluticasone Propion-Salmeterol (Advair Diskus) 1 PUFF inhaler Discontinued 1 PUFF INHALATION TWICE A DAY March 24, 2013 11:08am February 22, 2015 2:44pm Start: 03-24-2013 End: 02-22-2015 take 1 puff(s) by inhalation twice daily Fluticasone Propion-Salmeterol (Advair Diskus) 1 PUFF inhaler Discontinued 1 NMA INHALATION TWICE A DAY March 24, 2013 1:00am February 22, 2015 2:44pm Start: 03-24-2013 End: 02-22-2015 take 1 puff(s) by inhalation twice daily Fluticasone Propion-Salmeterol (Advair Diskus) 1 PUFF inhaler Discontinued 1 PUFF INHALATION TWICE A DAY March 24, 2013 12:00am February 22, 2015 1:44pm Start: 03-24-2013 End: 02-22-2015 take 1 puff(s) by inhalation twice daily Fluticasone Propion-Salmeterol (Advair Diskus) 1 PUFF inhaler Discontinued 1 PUFF INHALATION TWICE A DAY March 24, 2013 1:00am February 22, 2015 2:44pm Comment on above: Inhale 1 Puff as ins tructed twice daily. Rinse mouth out after use with water. Inhale 1 Puff as ins tructed two times a day. Rinse mouth out after use with water. glimepiride 4 mg oral tablet (20 sources) Sulfonylurea Start: 8 End: 5 take 1 tablet by mouth once daily at breakfast, then take 0.5 tablet by mouth once daily glimepiride (AMARYL) 4 mg tablet Indications: Diabetic peripheral neuropathy associated with type 2 diabetes mellitus (HCC) Take 1 tablet by mouth daily with breakfast. Patient may take an extra half pill once a day for blood sugars over 200. 45 tablet 11 04/23/2024 Active Start: 10-31-2017 End: 10-31-2017 Glimepiride 4 mg tablet Disc ontinued PO 30 October 31, 2017 12:00am October 31, 2017 10:58am Comment on above: Take 1 tablet by beatriz daily with breakfast. Patient may take an extra half pill once a day for blood sugars over 200. 12 hr guaiFENesin 600 mg extended release oral tablet (20 sources) Start: 2 End: 4 take 2 tablets by mouth twice daily guaiFENesin (MUCINEX) 600 mg 12 hr tablet Take 2 tablets by mouth two times a day. 112 tablet 11 01/29/2024 Active Start: 12-04-2018 take 1 tablet by beatriz three times daily Guaifenesin 600 MG tablet extended release 12hr Active 600 mg PO THREE TIMES A DAY December 04, 2018 11:01am Start: 12-04-2018 take 600 mg by mouth three times daily Guaifenesin Active 600 MG PO THREE TIMES A DAY December 04, 2018 11:01am Start: 08-28-2017 End: 12-04-2018 take 1 tablet by mouth twice daily Guaifenesin 600 MG tablet extended release 12hr Discontinued 600 mg PO TWICE A DAY 10 August 28, 2017 12:00am December 04, 2018 11:01am Comment on above: Take 2 tablets by mo [facility] twice daily. hydrocortisone 25 mg/ml topical cream (20 sources) Corticosteroid Start: 05-17-2021 Hydrocortisone 2.5 % cream with perineal applicator Active 1 NMA RC AT BEDTIME as needed for hemorrhoids May 17, 2021 12:00am Start: 03-31-2021 End: 08-02-2023 hydrocortisone 2.5 % cream I ndications: Contact dermatitis due to adhesive bandage Apply 1 application to affected area two times a day as needed. Location: neck (reaction to tape adhesive) May also use for poison tania. Use up to 14 days per episode of rash. 28 g 2 08/02/2023 Active Start: 10-31-2017 Hydrocortisone 2.5 % cream Active 1 NMA TOPICAL DAILY 0 October 31, 2017 12:00am Comment on above: Apply 1 application to affected area twice daily as needed. Location: neck (reaction to tape adhesive) May also use for poison tania. Apply 1 application to affected area twice daily as needed. Location: neck (reaction to tape adhesive) May also use for poison tania. Use up to 14 days per episode of rash. Apply 1 application to affected area two times a day as needed. Location: neck (reaction to tape adhesive) May also use for poison tania. Use up to 14 days per episode of rash. hyoscyamine sulfate 0.125 mg sublingual tablet (20 sources) Start: take 1 tablet under the tongue every eight hours as needed Hyoscyamine Sulfate (Levsin/Sl) 0.125 mg tablet, sublingual Active 0.125 mg SL Q8H as needed for dyspepsia November 20, 2023 12:00am Start: 04-08-2023 take 2 tablets by mo [facility] every six hours as needed Hyoscyamine Sulfate 0.125 mg tablet, sublingual Active 0.25 mg PO EVERY 6 HOURS as needed for epigastric discomfort April 08, 2023 11:29pm Start: 04-08-2023 [facility] Hyoscyamine Sulfate Active 0.25 MG PO EVERY 6 HOURS April 08, 2023 11:29pm Start: 04-08-2023 End: 11-30-2023 take 0.125 mg under the tongue every six hours as needed hyoscyamine sublingual (LEVSIN SL) 0.125 mg Dissolve 1 tablet under the tongue every 6 hours as needed (epigastric discomfort). 60 tablet 1 11/23/2023 Active Comment on above: TAKE 2 TABLETS BY MO [facility] EVERY 6 HOURS NEEDED for epigastric discomfort Dissolve 1 tablet un will the tongue every 6 hours as needed (epigastric discomfort). Dissolve 1 tablet un will the tongue every 6 hours as needed. Dissolve 2 tablets u nder the tongue every 6 hours as needed. 3 ml insulin glargine 100 unt/ml pen injector (20 sources) Insulin Analog Start: 01-29-2024 insulin glargine (LANTUS SOLOSTAR U-100 INSULIN) 100 unit/mL (3 mL) Inject 16 Units subcutaneously every morning AND 2 Units every morning. Adjust as directed (2 units to prime pen needle) or as directed. 01/29/2024 Active Start: 10-14-2021 End: 11-18-2022 insulin glargine (LANTUS JAQUELINE OSTAR U-100 INSULIN) 100 unit/mL (3 mL) Inject 18 Units subcutaneously daily at bedtime AND 2 Units daily at bedtime. Adjust as directed (2 units to prime pen needle. 5 Each 4 11/18/2022 Active Start: 2020 End: 01-29-2024 insulin glargine (LANTUS JAQUELINE OSTAR U-100 INSULIN) 100 unit/mL (3 mL) Inject 18 Units subcutaneously daily at bedtime AND 2 Units daily at bedtime. Adjust as directed (2 units to prime pen needle. 5 Each 4 11/16/2023 01/29/2024 Discontinued Start: 10-31-2017 Insulin Glargi ne (Lantus Solostar U-100 Insulin) 100 unit/mL (3 mL) insulin pen Active 12 U SC AT BEDTIME as needed for hyperglycemia October 31, 2017 12:00am Start: 03-21-2016 End: 10-21-2016 Insulin Glargine (Lantus) 10 0 UNIT/ML Ml Discontinued 15 U SC AT BEDTIME March 21, 2016 1:00am October 21, 2016 1:41pm Comment on above: Inject 18 Units subc utaneously daily at bedtime AND 2 Units daily at bedtime. Adjust as directed (2 units to prime pen needle. isopropyl alcohol 0.7 ml/ml medicated pad (20 sources) Start: 09-17-19 End: 08-02-19 alcohol swabs (SURE-PREP ALCHOLOL PREP PADS) Test blood sugars 4 x's daily. Dx: E11.65 Insulin: Yes 200 Each 08/02/2023 Active Comment on above: Test blood sugars 4 x's daily. Dx: E11.65 Insulin: Yes ketoconazole 20 mg/ml topical cream (20 sources) Azole Antifungal Start: 06-13-19 End: 11-19-19 ketoconazole (NIZORAL) 2 % cream Apply 1 application to affected area once daily. as needed 30 g 2 11/18/2022 Active Comment on above: Apply 1 application to affected area once daily. as needed lidocaine 40 mg/ml topical cream (20 sources) Antiarrhythmic, Amide Local Anesthetic Start: 03-14-19 24 End: 11-13-19 lidocaine (LMX) 4 % cream Apply to affected area four times a day as needed (for painful sore in rectal area as directed). 28 g 1 11/12/2024 Active Comment on above: Apply to affected ar ea four times a day as needed (for painful sore in rectal area as directed). magnesium oxide 400 mg oral tablet (20 sources) Start: 04-16-19 End: 10-26-19 take 1 tablet by mouth once daily at bedtime magnesium oxide (MAG-OX) 400 mg (241.3 mg magnesium) tablet Take 1 tablet by mouth daily at bedtime. 30 tablet 11 10/25/2024 Active Comment on above: Take 1 tablet by beatriz th once daily. melatonin 10 mg oral tablet (20 sources) Start: 07-21-19 End: 08-02-19 24 take 1 tablet by mouth every twenty-four hours as needed melatonin 10 mg tab Take 1 tablet by mouth at bedtime as needed for insomnia. 30 tablet 3 08/02/2023 Active Start: 09-16-2016 End: 07-20-2022 take 2 tablets by mouth once daily at bedtime melatonin 3 mg Take 2 tablets by mouth daily at bedtime. 0 09/16/2016 07/20/2022 Discontinued Comment on above: Take 2 tablets by mo ut daily at bedtime. Take 1 tablet by beatriz th at bedtime as needed for for insomnia. Take 1 tablet by beatriz th at bedtime as needed for insomnia. melatonin 5 mg / vitamin b6 1 mg oral tablet (13 sources) Start: 2017 take 1 tablet by mouth at bedtime Melatonin-Pyridoxine (Vit B6) (Melatonin 5 Mg Tablet) 1 EACH tablet Active 2 NMA PO AT BEDTIME November 28, 2017 12:00am methylPREDNISolone (2 sources) Corticosteroid Start: 2022 End: 2022 methylPREDNISolone (MEDROL, HARRIS,) 4 mg Dose-Pack Indications: Chronic midline low back pain, unspecified whether sciatica present Follow dosing instructions, take with food. 21 tablet 0 06/28/2022 07/04/2022 Active Comment on above: Follow dosing instru ctions, take with food. metroNIDAZOLE 500 mg oral tablet (20 sources) Nitroimidazole Antimicrobial Start: 2024 End: 2024 take 1 tablet by mouth three times daily metroNIDAZOLE (FLAGYL) 500 mg tablet Indications: Fistula Take 1 tablet by mouth three times a day for 14 days. May extend course as directed or take for recurrent infection as directed 42 tablet 1 05/28/2024 06/11/2024 Active Start: 11-16-2022 End: 11-23-2022 take 1 tablet by mouth twice daily metroNIDAZOLE (FLAGYL) 500 mg tablet Indications: BV (bacterial vaginosis) Take 1 tablet by mouth twice daily for 7 days. 14 tablet 0 11/16/2022 11/23/2022 Active Start: 10-14-2021 End: 11-16-2022 take 1 tablet by mouth three times daily metroNIDAZOLE (FLAGYL) 500 mg tablet Indications: Diarrhea of presumed infectious origin Take 1 tablet by mouth three times daily. May extend course as directed or take for recurrent infection as directed 42 tablet 1 05/27/2022 08/23/2022 Discontinued Start: 03-31-2021 take 1 tablet by beatirz th three times daily metroNIDAZOLE (FLAGYL) 500 mg tablet Indications: Diarrhea of presumed infectious origin Take 1 tablet by mouth three times daily. May extend course as directed or take for recurrent infection as directed 42 tablet 1 03/31/2021 Active Start: 12-31-2016 End: 11-01-2017 take 1 tablet by mouth every eight hours Metronidazole 500 MG tablet Discontinued 500 mg PO Q8H 42 December 31, 2016 12:00am November 01, 2017 10:51am Comment on above: Take 1 tablet by beatriz th three times daily. May extend course as directed or take for recurrent infection as directed Take 1 tablet by beatriz th twice daily for 7 days. miconazole nitrate 20 mg/ml topical cream (20 sources) Azole Antifungal Start: 04-24-19 End: 09-15-20 23 miconazole (CADENCE ANTIFUNGAL) 2 % cream Apply 1 application to affected area twice daily. To perirectal and buttocks area 42.5 g 11 11/18/2022 Active Comment on above: Apply 1 application to affected area twice daily. To perirectal and buttocks area molnupiravir (LAGEVRIO, EUA,) 200 mg capsule (2 sources) Start: 01-14-20 End: 01-19-20 take 4 capsules by mouth twice daily molnupiravir (LAGEVRIO, EUA,) 200 mg capsule Take 4 capsules by mouth two times a day for 5 days. 40 capsule 0 01/13/2023 01/18/2023 Active Comment on above: Take 4 capsules by m outh two times a day for 5 days. molnupiravir 200 mg capsule (1 source) Start: 01-14-20 End: 01-19-20 take 4 capsules by mouth twice daily molnupiravir 200 mg capsule Indications: COVID Take 4 capsules by mouth two times a day for 5 days. 40 capsule 0 01/13/2023 01/18/2023 Active Comment on above: Take 4 capsules by m outh two times a day for 5 days. mupirocin 0.02 mg/mg topical ointment (10 sources) RNA Synthetase Inhibitor Antibacterial Start: 11-13-19 End: 11-23-19 mupirocin (BACTROBAN) 2 % ointment Indications: Labial lesion Apply 1 application to affected area two times a day for 10 days. 15 g 1 11/12/2024 11/22/2024 Active Start: 10-02-2023 End: 10-07-2023 mupirocin (BACTROBAN) 2 % oi ntment Apply to affected area three times a day for 5 days. 30 g 0 10/02/2023 10/07/2023 Active Start: 06-28-2022 End: 07-08-2022 mupirocin (BACTROBAN) 2 % oi ntment Indications: Rash Apply to affected area three times daily for 10 days. 30 g 2 06/28/2022 07/08/2022 Active Start: 06-23-2022 End: 07-03-2022 mupirocin (BACTROBAN) 2 % oi ntment Indications: Rash Apply to affected area three times daily for 10 days. 22 g 06/23/2022 06/28/2022 Discontinued Comment on above: Apply to affected ar ea three times daily for 10 days. Nebulizer (20 sources) Start: 01-21-2019 Nebulizer Indications: Uncomplicated asthma, unspecified asthma severity, unspecified whether persistent (HCC) , History of tracheal stenosis New (not refurbished) NEBULIZER FOR HOME USE with Duoneb 4 x a day. DX: J45.909, Z87.09. Lifetime supplies of mask/tubing, patient has tracheostomy. 1 Kit 1 01/21/2019 Active Start: 01-21-2019 Nebulizer Afsaneh cations: Uncomplicated asthma, unspecified asthma severity, unspecified whether persistent , History of tracheal stenosis New (not refurbished) NEBULIZER FOR HOME USE with Duoneb 4 x a day. DX: J45.909, Z87.09. Lifetime supplies of mask/tubing, patient has tracheostomy. 1 Kit 1 01/21/2019 Suspended Start: 01-21-2019 Nebulizer Afsaneh cations: Uncomplicated asthma, unspecified asthma severity, unspecified whether persistent , History of tracheal stenosis New (not refurbished) NEBULIZER FOR HOME USE with Duoneb 4 x a day. DX: J45.909, Z87.09. Lifetime supplies of mask/tubing, patient has tracheostomy. 1 Kit 1 01/21/2019 Active Comment on above: New (not refurbished ) NEBULIZER FOR HOME USE with Duoneb 4 x a day. DX: J45.909, Z87.09. Lifetime supplies of mask/tubing, patient has tracheostomy. Nebulizer Accessories misc (20 sources) Start: 03-15-2024 Nebulizer Accessories misc Indications: Cough , Intermittent asthma without complication, unspecified asthma severity (HCC) Needs new nebulizer mask (mouthpiece), hose and supplies. (J45.20) Intermittent asthma without complication 1 Each 03/15/2024 Active Start: 03-15-2024 Nebulizer Acce ssories misc Indications: Cough , Intermittent asthma without complication, unspecified asthma severity Needs new nebulizer mask (mouthpiece), hose and supplies. (J45.20) Intermittent asthma without complication 1 Each 03/15/2024 Active Start: 08-09-2021 End: 03-14-2024 Nebulizer Accessories misc I ndications: Cough , Intermittent asthma without complication, unspecified asthma severity Needs new nebulizer mask, hose and supplies. (J45.20) Intermittent asthma without complication 1 Each 08/09/2021 03/14/2024 Discontinued Start: 08-09-2021 Nebulizer Acce ssories misc Indications: Cough , Intermittent asthma without complication, unspecified asthma severity Needs new nebulizer mask, hose and supplies. (J45.20) Intermittent asthma without complication 1 Each 08/09/2021 Active Start: 08-09-2021 Nebulizer Acce ssories misc Indications: Cough , Intermittent asthma without complication, unspecified asthma severity Needs new nebulizer mask, hose and supplies. (J45.20) Intermittent asthma without complication 1 Each 0 08/09/2021 Active Start: 06-17-2021 End: 08-09-2021 Nebulizer Accessories misc I ndications: Intermittent asthma without complication, unspecified asthma severity Needs new nebulizer mask, hose and supplies. (J45.20) Intermittent asthma without complication 1 Each 0 06/17/2021 08/09/2021 Discontinued Start: 06-17-2021 Nebulizer Acce ssories misc Indications: Intermittent asthma without complication, unspecified asthma severity Needs new nebulizer mask, hose and supplies. (J45.20) Intermittent asthma without complication 1 Each 0 06/17/2021 Suspended Start: 06-17-2021 Nebulizer Acce ssories misc Indications: Intermittent asthma without complication, unspecified asthma severity Needs new nebulizer mask, hose and supplies. (J45.20) Intermittent asthma without complication 1 Each 0 06/17/2021 Active Start: 11-15-2019 Nebulizer Acce ssories misc Indications: Intermittent asthma without complication, unspecified asthma severity (HCC) Needs new nebulizer mask, hose and supplies. (J45.20) Intermittent asthma without complication 1 Each 11/15/2019 Active Start: 11-15-2019 Nebulizer Acce ssories misc Indications: Intermittent asthma without complication, unspecified asthma severity Needs new nebulizer mask, hose and supplies. (J45.20) Intermittent asthma without complication 1 Each 11/15/2019 Active Start: 11-15-2019 Nebulizer Acce ssories misc Indications: Intermittent asthma without complication, unspecified asthma severity Needs new nebulizer mask, hose and supplies. (J45.20) Intermittent asthma without complication 1 Each 0 11/15/2019 Suspended Start: 11-15-2019 End: 06-17-2021 Nebulizer Accessories [facility] I ndications: Intermittent asthma without complication, unspecified asthma severity Needs new nebulizer mask, hose and supplies. (J45.20) Intermittent asthma without complication 1 Each 0 11/15/2019 06/17/2021 Discontinued Start: 11-15-2019 Nebulizer Acce ssories [facility] Indications: Intermittent asthma without complication, unspecified asthma severity Needs new nebulizer mask, hose and supplies. (J45.20) Intermittent asthma without complication 1 Each 0 11/15/2019 Active Comment on above: Needs new nebulizer mask, hose and supplies. (J45.20) Intermittent asthma without complication Nebulizer and Compressor For Neb (20 sources) Start: 08-09-2021 Nebulizer and Compressor For Neb Indications: Cough , Intermittent asthma without complication, unspecified asthma severity (HCC) 1 Each as needed (Use as directed for treatment of asthma). 1 Each 08/09/2021 Active Start: 08-09-2021 Nebulizer and Compressor For Neb Indications: Cough , Intermittent asthma without complication, unspecified asthma severity 1 Each as needed (Use as directed for treatment of asthma). 1 Each 08/09/2021 Active Start: 08-09-2021 Nebulizer and Compressor For Neb Indications: Cough , Intermittent asthma without complication, unspecified asthma severity 1 Each as needed (Use as directed for treatment of asthma). 1 Each 0 08/09/2021 Active Start: 06-24-2021 End: 08-09-2021 Nebulizer and Compressor For Neb 1 Each as needed (Use as directed for treatment of asthma). 1 Each 0 06/24/2021 08/09/2021 Discontinued Start: 06-24-2021 Nebulizer and Compressor For Neb 1 Each as needed (Use as directed for treatment of asthma). 1 Each 0 06/24/2021 Suspended Start: 06-24-2021 Nebulizer and Compressor For Neb 1 Each as needed (Use as directed for treatment of asthma). 1 Each 0 06/24/2021 Active Start: 06-23-2021 End: 06-24-2021 Nebulizer and Compressor For Neb 1 Each as needed (Use as directed for treatment of asthma). 1 Each 0 06/23/2021 06/24/2021 Discontinued Comment on above: 1 Each as needed (Us e as directed for treatment of asthma). nystatin 100 unt/mg topical powder (20 sources) Polyene Antifungal Start: 07-05-2023 nystatin (MYCOSTATIN) 100,000 unit/mL suspension Take 5 mL by mouth four times daily. 1tsp swish in mouth for several minutes, then swallow (or expectorate) 4 times daily until gone. 200 mL 07/05/2023 Active Start: 03-27-2023 End: 09-30-2024 nystatin (MYCOSTATIN) powder Apply 1 application to affected area four times a day as needed. 60 g 2 09/30/2024 Active Start: 02-08-2023 End: 03-10-2023 nystatin (MYCOSTATIN) powder Apply 1 application to affected area four times daily. 120 g 2 02/08/2023 03/10/2023 Active Comment on above: Apply 1 application to affected area four times daily. Apply 1 application to affected area four times a day as needed. omeprazole 20 mg delayed release oral capsule (20 sources) Proton Pump Inhibitor Start: End: take 1 capsule by mouth once daily omeprazole (PRILOSEC) 20 mg capsule Take 1 capsule by mouth once daily. 90 capsule 3 06/18/2024 Active Start: 10-31-2017 End: 12-01-2017 take 1 capsule by mouth once daily Omeprazole 20 mg capsule,delayed release(DR/EC) Discontinued 20 mg PO DAILY 90 30 0 November 01, 2017 10:49am November 30, 2017 12:00am December 01, 2017 12:08am Start: 10-31-2017 End: 11-01-2017 Omeprazole 20 mg capsule,del ayed release(DR/EC) Discontinued PO 30 30 0 October 31, 2017 12:00am November 01, 2017 10:51am Comment on above: Take 1 capsule by mo ut daily before breakfast. 1/2 hr before meal. TAKE ONE CAPSULE BY MOUTH EVERY DAY 30 MINUTES BEFORE breakfast Take 1 capsule by mo uth once daily. Ostomy Supplies (ADHESIVE REMOVER WIPES) swab (20 sources) Start: 06-12-2020 Ostomy Supplies (ADHESIVE REMOVER WIPES) swab All Care brand. Use as directed 100 Each 5 06/12/2020 Suspended Start: 06-12-2020 Ostomy Supplie s (ADHESIVE REMOVER WIPES) swab All Care brand. Use as directed 100 Each 5 06/12/2020 Active Comment on above: All Care brand. Use as directed Ostomy Supplies misc (20 sources) Start: 01-26-20 23 Ostomy Supplies misc Indications: Ileostomy in place (HCC) 1. Convatec Flanges Ref# [id number] 10 to a box, 3 boxes 2. Allkare Protective Barrier Wipes Ref # [id number] 1 box = 50 wipes, 3 boxes 3. Convatec Adhesive Glue Ref # [id number] 2 oz tube, 3 tubes 4. Convatec Stoma Adhesive Powder Ref # [id number] 1 oz bottle, 3 bottles 5. Convatec Stoma Bags Ref # [id number] 10 in a box, 3 boxes 3 Each 3 01/25/2023 Active Comment on above: 1. Convatec Flanges Ref# [id number] 10 to a box, 3 boxes 2. Allkare Protective Barrier Wipes Ref # [id number] 1 box = 50 wipes, 3 boxes 3. Convatec Adhesive Glue Ref # [id number] 2 oz tube, 3 tubes 4. Convatec Stoma Adhesive Powder Ref # [id number] 1 oz bottle, 3 bottles 5. Convatec Stoma Bags Ref # [id number] 10 in a box, 3 boxes polysaccharide iron complex 150 mg oral capsule (20 sources) Start: 08-11-19 24 End: 06-19-19 25 take 1 capsule by mouth once iron polysaccharide complex (FERREX 150) 150 mg iron capsule Take 1 capsule by mouth every Monday, Monday, and Monday. 36 capsule 3 06/19/2024 Active pravastatin sodium 40 mg oral tablet (20 sources) HMG-CoA Reductase Inhibitor Start: 12-05-19 19 End: 01-29-20 24 take 1 tablet by mouth once daily pravastatin (PRAVACHOL) 40 mg tablet Indications: Hyperlipidemia associated with type 2 diabetes mellitus (HCC) Take 1 tablet by mouth once daily. 90 tablet 3 01/29/2024 Active Comment on above: Take 1 tablet by beatriz once daily. predniSONE 10 mg oral tablet (9 sources) Start: 04-13-19 End: 04-22-19 predniSONE (DELTASONE) 10 mg tablet Indications: Costochondritis Take 4 tabs daily for 3 days, then 2 tabs daily for 3 days, then 1 tab daily for 3 days with food. 21 tablet 0 04/13/2023 04/22/2023 Active Start: 11-16-2022 predniSONE (DE LTASONE) 10 mg tablet Indications: Left hip pain , Pharyngitis, unspecified etiology Take 2 tabs po BID for 2 days then 1 tab po BID for 2 days then 1/2 tab po BID for 2 days then 1/2 tab daily for 2 days then stop 15 tablet 0 11/16/2022 Active Comment on above: Take 2 tabs po BID f or 2 days then 1 tab po BID for 2 days then 1/2 tab po BID for 2 days then 1/2 tab daily for 2 days then stop Take 4 tabs daily fo r 3 days, then 2 tabs daily for 3 days, then 1 tab daily for 3 days with food. ramelteon 8 mg oral tablet (20 sources) Melatonin Receptor Agonist Start: 5 take 1 tablet by mouth once daily at bedtime ramelteon (ROZEREM) 8 mg tablet Take 8 mg by mouth daily at bedtime. 04/17/2024 Active suvorexant 10 mg oral tablet (2 sources) Orexin Receptor Antagonist Start: 4 take 1 tablet by mouth once daily Suvorexant (Belsomra) 10 mg tablet Active 20 mg PO DAILY November 20, 2023 12:00am tapentadol 75 mg oral tablet (20 sources) Opioid Agonist Start: 5 End: 5 take 1 tablet by mouth twice daily as needed tapentadol (NUCYNTA) 75 mg tab Indications: Fibromyalgia , Chronic, continuous use of opioids , Chronic midline low back pain, unspecified whether sciatica present Take 1 tablet by mouth two times a day as needed for up to 28 days. Patient should start on October 28, 2024. 56 tablet 10/28/2024 11/25/2024 Active Start: 07-04-2023 End: 09-21-2024 take 1 tablet by mouth twice daily as needed tapentadol (NUCYNTA) 75 mg tab Indications: Fibromyalgia , Chronic, continuous use of opioids , Chronic midline low back pain, unspecified whether sciatica present Take 1 tablet by mouth two times a day as needed for up to 28 days. Patient should start on August 22, 2024. 56 tablet 08/22/2024 09/21/2024 Discontinued Start: 06-23-2023 End: 06-30-2023 take 1 tablet by mouth twice daily tapentadol (NUCYNTA) 75 mg tab Indications: Chronic, continuous use of opioids Take 1 tablet by mouth two times a day for 7 days. 14 tablet 0 06/23/2023 06/30/2023 Active Start: 05-17-2023 End: 05-31-2023 take 1 tablet by mouth twice daily tapentadol (NUCYNTA) 75 mg tab Indications: Chronic, continuous use of opioids Take 1 tablet by mouth two times a day for 14 days. Do not start before May 17, 2023. 28 tablet 0 05/17/2023 05/29/2023 Discontinued Start: 10-20-2022 End: 03-29-2023 NUCYNTA 50 mg three times a day. 10/20/2022 03/29/2023 Discontinued Start: 01-24-2018 End: 06-21-2023 take 1 tablet by mouth three times daily Tapentadol 75 MG tablet Active 75 mg PO THREE TIMES A DAY December 04, 2018 12:00am pain Start: 01-24-2018 End: 03-29-2023 tapentadol (NUCYNTA) 75 mg t ab Indications: Chronic, continuous use of opioids Take 50 mg by mouth three times daily. Taking 1 three times a day per Basali. 0 01/24/2018 03/29/2023 Discontinued Comment on above: Taking 1 twice a day per Basali. Earliest Fill Date: 01/24/18 50 mg. Taking 1 twic e a day per Dr Basali. Take 50 mg by mouth three times daily. Taking 1 three times a day per Dr Basali. three times a day. Take 1 tablet by beatriz th three times a day for 14 days. Take 1 tablet by beatriz th two times a day for 14 days. Do not start before May 17, 2023. Take 1 tablet by beatriz th two times a day for 7 days. Take 1 tablet by beatriz th three times a day for 16 days. Do not start before June 05, 2023. traZODone hydrochloride 100 mg oral tablet (20 sources) Serotonin Reuptake Inhibitor Start: take 1 tablet by mouth once daily at bedtime traZODone (DESYREL) 100 mg tablet Take 1 tablet by mouth daily at bedtime. 01/18/2024 Active Start: 11-05-2023 End: 01-18-2024 take 1 tablet by mouth once daily at bedtime traZODone (DESYREL) 50 mg tablet Take 1 tablet by mouth daily at bedtime. 30 tablet 3 01/05/2024 01/18/2024 Discontinued Start: 10-31-2017 take 300 mg by mouth at bedtim e Trazodone Active 300 MG PO AT BEDTIME 90 30 October 31, 2017 12:00am Start: 10-21-2016 End: 11-30-2023 take 3 tablets by mouth at bedtime Trazodone 100 mg tablet Discontinued 300 mg PO AT BEDTIME 90 30 0 October 31, 2017 12:00am November 05, 2023 5:28am Comment on above: Take 3 tablets by mo uth daily at bedtime. ([facility] triamcinolone acetonide 1 mg/ml topical cream (20 sources) Corticosteroid Start: 10-17-19 End: 10-01-19 25 triamcinolone acetonide (KENALOG) 0.1 % cream Apply 1 application to affected area three times a day. Apply sparingly to area for rash/itching till rash resolves. For contact dermatitis 30 g 1 09/30/2024 Active Comment on above: Apply 1 application to affected area three times daily. Apply sparingly to area for rash/itching till rash resolves. For contact dermatitis Apply 1 application to affected area three times a day. Apply sparingly to area for rash/itching till rash resolves. For contact dermatitis valbenazine 80 mg oral capsule (20 sources) Start: 09-09-19 take 1 tablet by mouth once daily INGREZZA 80 mg capsule Take 1 tablet by mouth once daily. 09/08/2022 Active Comment on above: Take 1 tablet by beatriz th once daily. white petrolatum-mineral oil (EUCERIN) cream (20 sources) Start: 03-22-19 white petrolatum-mineral oil (EUCERIN) cream Indications: Pruritus Apply 1 application to affected area as needed for Dry Skin (all dry skin areas). 120 g 1 03/22/2016 Suspended Start: 03-22-2016 white petrolat um-mineral oil (EUCERIN) cream Indications: Pruritus Apply 1 application to affected area as needed for Dry Skin (all dry skin areas). 120 g 1 03/22/2016 Active Comment on above: Apply 1 application to affected area as needed for Dry Skin (all dry skin areas). zinc oxide 0.4 mg/mg topical ointment (20 sources) Start: 06-18-2020 Zinc Oxide 40 % oint Indications: Perianal irritation , Perianal candidiasis , Diarrhea of presumed infectious origin Apply to affected area as needed. 57 g 3 06/18/2020 Active Comment on above: Apply to affected ar ea as needed. Completed/Discontinued Medications Medication Drug Class(es) Dates Sig (Normalized) Sig (Original) Adhesive Tape (DURAPORE SURGICAL) 2 X 10 -yard tape (20 sources) Start: 07-24-2017 End: 11-30-2023 Adhesive Tape (DURAPORE SURGICAL) 2 X 10 -yard tape Use for dressings for healing tracheostomy site. 1 Each 1 07/24/2017 11/30/2023 Discontinued Start: 07-24-2017 Adhesive Tape (DURAPORE SURGICAL) 2 X 10 -yard tape Use for dressings for healing tracheostomy site. 1 Each 1 07/24/2017 Suspended Start: 07-24-2017 Adhesive Tape (DURAPORE SURGICAL) 2 X 10 -yard tape Use for dressings for healing tracheostomy site. 1 Each 1 07/24/2017 Active Comment on above: Use for dressings fo r healing tracheostomy site. albuterol 0.83 mg/ml inhalation solution (20 sources) beta2-Adrenergic Agonist Start: 11-01-2022 End: 11-01-2022 albuterol 2.5 mg /3 mL (0.083 %) 2.5 mg (PROVENTIL) Start: 06-12-2020 End: 05-20-2023 take 2 puff(s) by inhalation every four hours as needed albuterol HFA (PROVENTIL HFA, VENTOLIN HFA) 90 mcg/actuation inhaler Inhale 2 Puffs as instructed every 4 hours as needed. 18 g 1 06/25/2021 05/20/2023 Discontinued Comment on above: Inhale 2 Puffs as in structed every 4 hours as needed. amitriptyline hydrochloride 25 mg oral tablet (13 sources) Tricyclic Antidepressant Start: 11-29-19 18 End: 11-20-19 24 take 1 tablet by mouth at bedtime Amitriptyline 25 MG tablet Discontinued 25 mg PO AT BEDTIME November 28, 2017 12:00am November 20, 2023 4:42pm atorvastatin 40 mg oral tablet (20 sources) HMG-CoA Reductase Inhibitor Start: 11-01-19 18 End: 12-01-19 18 take 1 tablet by mouth at bedtime Atorvastatin 40 mg tablet Discontinued 40 mg PO AT BEDTIME 30 30 0 October 31, 2017 10:55am November 29, 2017 12:00am November 30, 2017 12:08am Start: 10-31-2017 End: 10-31-2017 Atorvastatin 40 mg tablet Di scontinued PO 30 30 0 October 31, 2017 12:00am October 31, 2017 11:09am Start: 10-31-2017 End: 10-31-2017 Atorvastatin Discontinued PO 30 30 October 31, 2017 12:00am October 31, 2017 11:09am azithromycin 250 mg oral tablet (13 sources) Macrolide Antimicrobial Start: 03-21-2013 End: 03-24-2013 Azithromycin (Zithromax Z-Harris) 250 MG tablet Discontinued 250 mg PO DIRECTED March 21, 2013 1:00am March 24, 2013 11:06am benzonatate 100 mg oral capsule (20 sources) Non-narcotic Antitussive Start: 01-12-2023 End: 05-28-2024 take 2 capsules by mouth every eight hours as needed benzonatate (TESSALON PERLE) 100 mg capsule Take 2 capsules by mouth three times a day as needed. 30 capsule 03/05/2024 05/28/2024 Discontinued Start: 11-01-2022 End: 01-12-2023 take 100-200 mg by mouth every eight hours as needed benzonatate (TESSALON PERLES) 100 mg capsule Take 1-2 capsules by mouth three times daily as needed. 30 capsule 11/01/2022 01/12/2023 Discontinued (Course of therapy completed) Start: 04-30-2022 End: 06-28-2022 take 2 capsules by mouth every eight hours as needed benzonatate (TESSALON PERLES) 100 mg capsule Take 2 capsules by mouth three times daily as needed. 30 capsule 04/30/2022 06/28/2022 Discontinued Start: 08-09-2021 End: 06-28-2022 take 100-200 mg by mouth every eight hours as needed for cough and cough benzonatate (TESSALON PERLES) 100 mg capsule Indications: Cough Take 1-2 capsules by mouth three times daily as needed. 30 capsule 08/09/2021 06/28/2022 Discontinued Start: 10-31-2017 End: 10-31-2017 Benzonatate 100 mg capsule Discontinued PO 30 5 0 October 31, 2017 12:00am October 31, 2017 10:56am Start: 10-31-2017 End: 10-31-2017 Benzonatate Discontinued PO 30 5 October 31, 2017 12:00am October 31, 2017 10:56am Comment on above: Take 1-2 capsules by mouth three times daily as needed. Take 2 capsules by m outh three times daily as needed. Take 2 capsules by m outh three times a day as needed. Blood-Glucose Meter (ONETOUCH VERIO METER) (20 sources) Start: 07-27-2020 End: 05-20-2023 Blood-Glucose Meter (ONETOUCH VERIO METER) Test blood sugar 4 times daily. Dx: Type 2 DM. Uncontrolled E11.65. Insulin: yes. 1 Each 07/27/2020 05/20/2023 Discontinued Start: 07-27-2020 End: 05-20-2023 Blood-Glucose Meter (ONETOUC H VERIO METER) Test blood sugar 4 times daily. Dx: Type 2 DM. Uncontrolled E11.65. Insulin: yes. 1 Each 0 07/27/2020 05/20/2023 Discontinued Start: 07-27-2020 Blood-Glucose Meter (ONETOUCH VERIO METER) Test blood sugar 4 times daily. Dx: Type 2 DM. Uncontrolled E11.65. Insulin: yes. 1 Each 0 07/27/2020 Suspended Start: 07-27-2020 Blood-Glucose Meter (ONETOUCH VERIO METER) Test blood sugar 4 times daily. Dx: Type 2 DM. Uncontrolled E11.65. Insulin: yes. 1 Each 0 07/27/2020 Active Comment on above: Test blood sugar 4 t imes daily. Dx: Type 2 DM. Uncontrolled E11.65. Insulin: yes. Blood-Glucose Meter (TRUE METRIX GLUCOSE METER) (20 sources) Start: 06-15-2021 End: 05-20-2023 Blood-Glucose Meter (TRUE METRIX GLUCOSE METER) Indications: Diabetic peripheral neuropathy associated with type 2 diabetes mellitus (HCC) Testing one time daily and as needed DX E11.65 Insulin YES 1 Each 06/15/2021 05/20/2023 Discontinued Start: 06-15-2021 End: 05-20-2023 Blood-Glucose Meter (TRUE ME TRIX GLUCOSE METER) Indications: Diabetic peripheral neuropathy associated with type 2 diabetes mellitus (HCC) Testing one time daily and as needed DX E11.65 Insulin YES 1 Each 0 06/15/2021 05/20/2023 Discontinued Start: 06-15-2021 Blood-Glucose Meter (TRUE METRIX GLUCOSE METER) Indications: Diabetic peripheral neuropathy associated with type 2 diabetes mellitus (HCC) Testing one time daily and as needed DX E11.65 Insulin YES 1 Each 0 06/15/2021 Suspended Start: 06-15-2021 Blood-Glucose Meter (TRUE METRIX GLUCOSE METER) Indications: Diabetic peripheral neuropathy associated with type 2 diabetes mellitus (HCC) Testing one time daily and as needed DX E11.65 Insulin YES 1 Each 0 06/15/2021 Active Comment on above: Testing one time paige ly and as needed DX E11.65 Insulin YES cefTAZidime (20 sources) Cephalosporin Antibacterial Start: End: take 1 drop(s) into the eye(s) every four hours cefTAZidime ophthalmic solution 2.5% (25 mg/mL) (IP-CPD) Use 1 Drop in the right eye every 4 hours while awake. 15 mL 08/04/2021 05/20/2023 Discontinued Start: 08-04-2021 End: 05-20-2023 take 1 drop(s) into the eye(s) every four hours cefTAZidime ophthalmic solution 2.5% (25 mg/mL) (IP-CPD) Use 1 Drop in the right eye every 4 hours while awake. 15 mL 0 08/04/2021 05/20/2023 Discontinued Start: 08-04-2021 take 1 drop(s) into the eye(s) every four hours cefTAZidime ophthalmic solution 2.5% (25 mg/mL) (IP-CPD) Use 1 Drop in the right eye every 4 hours while awake. 15 mL 0 08/04/2021 Active Comment on above: Use 1 Drop in the ri ght eye every 4 hours while awake. cetirizine hydrochloride 10 mg oral tablet (20 sources) Histamine-1 Receptor Antagonist Start: 05-20-19 End: 01-29-20 take 1 tablet by mouth every twenty-four hours as needed cetirizine (ZYRTEC) 10 mg tablet Take 1 tablet by mouth at bedtime as needed for cold/allergy symptoms (itching). 30 tablet 11 08/02/2023 01/29/2024 Discontinued Comment on above: Take 1 tablet by beatriz th at bedtime as needed for cold/allergy symptoms (itching). clindamycin 300 mg oral capsule (2 sources) Lincosamide Antibacterial Start: 08-27-19 End: 11-05-19 take 1 capsule by mouth every six hours Clindamycin Hcl (Cleocin Hcl) 300 mg capsule Discontinued 300 mg PO EVERY 6 HOURS 28 7 0 August 27, 2023 12:00am November 05, 2023 5:27am COMPOUNDED PRESCRIPTION (20 sources) Start: 01-18-20 19 COMPOUNDED PRESCRIPTION Indications: Stage 2 moderate COPD by GOLD classification ([facility]) Provide nebulizer kit and nasal cannula supplies. 1 Each 0 01/17/2019 Active Start: 01-17-2019 COMPOUNDED PRE SCRIPTION Indications: Stage 2 moderate COPD by GOLD classification ([facility]) Please provide a nebulizer. 1 Each 0 01/17/2019 Active Start: 03-29-2018 COMPOUNDED PRE SCRIPTION Cancel BiPAP order. 1 Each 0 03/29/2018 Active Start: 03-29-2018 COMPOUNDED PRE SCRIPTION Overnight oximetry on 2 L NC. 1 Each 0 03/29/2018 Active Start: 02-01-2018 COMPOUNDED PRE SCRIPTION Indications: YENY (obstructive sleep apnea) , Obesity, Class II, BMI 35-39.9 Diagnostic Polysomnogram. [facility] 1 Each 0 02/01/2018 Active Start: 01-24-2018 COMPOUNDED PRE SCRIPTION Overnight continuous pulse oximetry on room air. ([facility] supplier) Please do in the next week 1 Each 0 01/24/2018 Active Start: 12-21-2017 COMPOUNDED PRE SCRIPTION Indications: Nocturnal hypoxemia Patient is to wear 2 L supplemental oxygen at night. DME: [facility] ([place]). 1 Each 0 12/21/2017 Active Start: 10-27-2017 COMPOUNDED PRE SCRIPTION Nocturnal oximetry on 2 L. DME: [facility] ([place]) 1 Each 0 10/27/2017 Active Comment on above: Nocturnal oximetry o n 2 L. DME: [facility] ([place]) Patient is to wear 2 L supplemental oxygen at night. DME: [facility] ([place]). Overnight continuous pulse oximetry on room air. ([facility] supplier) Please do in the next week Diagnostic Polysomno gram. [facility] Cancel BiPAP order. Overnight oximetry o n 2 L NC. Provide nebulizer ki t and nasal cannula supplies. Please provide a neb ulizer. dibucaine 0.01 mg/mg topical ointment (2 sources) Standardized Chemical Allergen Start: 05-19-2021 End: 06-02-2021 dibucaine (NUPERCAINAL) 1 % ointment Indications: Hemorrhoids, unspecified hemorrhoid type Apply to affected area three times daily for 14 days. 28 g 0 05/19/2021 06/02/2021 Comment on above: Apply to affected ar ea three times daily for 14 days. diclofenac sodium 0.01 mg/mg topical gel (20 sources) Nonsteroidal Anti-inflammatory Drug Start: 06-23-2022 End: 01-29-2024 diclofenac (VOLTAREN ARTHRITIS PAIN) 1 % topical gel Apply 2 g to affected area four times daily. 20 g 08/02/2023 01/29/2024 Discontinued Comment on above: Apply 2 g to affecte d area four times daily. diphenhydrAMINE-maalox- lidocaine (BMX 1:1:1) 1:1:1 liqd (20 sources) Start: 01-06-2022 End: 02-08-2023 dhudwllahyFVMBW-hahhyo-e idocaine (BMX 1:1:1) 1:1:1 liqd Mix in equal amounts - 1 T every 2hrs as needed for mouth pain, Swish/swallow or expectorate. (8oz) 240 mL 01/06/2022 02/08/2023 Discontinued Start: 01-06-2022 End: 02-08-2023 myajotjrujLNLQI-xipovu-erjgs rosa (BMX 1:1:1) 1:1:1 liqd Mix in equal amounts - 1 T every 2hrs as needed for mouth pain, Swish/swallow or expectorate. (8oz) 240 mL 0 01/06/2022 02/08/2023 Discontinued Start: 01-06-2022 diphenhydrAMIN T-iagwhy-zfjievnxq (BMX 1:1:1) 1:1:1 liqd Mix in equal amounts - 1 T every 2hrs as needed for mouth pain, Swish/swallow or expectorate. (8oz) 240 mL 0 01/06/2022 Active Comment on above: Mix in equal amounts - 1 T every 2hrs as needed for mouth pain, Swish/swallow or expectorate. (8oz) escitalopram 20 mg oral tablet (13 sources) Serotonin Reuptake Inhibitor Start: 03-01-20 End: 11-01-19 take 1 tablet by mouth once daily Escitalopram Oxalate 20 MG tablet Discontinued 20 mg PO DAILY March 01, 2017 1:00am October 31, 2017 10:41am fluticasone propionate 0.05 mg/actuat metered dose nasal spray (20 sources) Corticosteroid Start: 04-30-19 End: 01-29-20 take 2 spray(s) by mouth once daily fluticasone (FLONASE) 50 mcg/actuation nasal spray Use 2 Sprays in each nostril once daily. Rinse mouth after use. 1 Each 04/30/2022 01/29/2024 Discontinued Comment on above: Use 2 Sprays in each nostril once daily. Rinse mouth after use. gabapentin 300 mg oral capsule (20 sources) Anti-epileptic Agent Start: 11-01-19 End: 11-30-19 24 gabapentin (NEURONTIN) 300 mg capsule 10/31/2022 11/30/2023 Discontinued Start: 10-31-2017 End: 10-31-2017 Gabapentin 300 mg capsule Di scontinued PO 60 30 0 October 31, 2017 12:00am October 31, 2017 10:57am Start: 10-31-2017 End: 10-31-2017 Gabapentin Discontinued PO 6 0 October 31, 2017 12:00am October 31, 2017 10:57am 12 hr guaiFENesin 1200 mg / pseudoephedrine hydrochloride 120 mg extended release oral tablet (13 sources) alpha-Adrenergic Agonist Start: 02-25-2017 End: 10-31-2017 Pseudoephedrine-Guaifenesin 1 EACH tablet extended release 12 hr Discontinued 1 NMA PO TWICE A DAY 14 0 February 25, 2017 1:00am October 31, 2017 10:44am Start: 02-25-2017 End: 10-31-2017 Pseudoephedrine-Guaifenesin Discontinued 1 EACH PO TWICE A DAY February 25, 2017 1:00am October 31, 2017 10:44am hydrocortisone acetate 5 mg/ml / lidocaine hydrochloride 30 mg/ml rectal cream (20 sources) Antiarrhythmic, Corticosteroid, Amide Local Anesthetic Start: 05-25-2021 End: 05-20-2023 Lidocaine-Hydrocortisone Ac 3-0.5 % crea by RECTAL route twice daily for 14 days. 28.3 g 1 06/07/2021 05/20/2023 Discontinued Comment on above: by RECTAL route twic e daily for 14 days. ketorolac tromethamine 10 mg oral tablet (7 sources) Nonsteroidal Anti-inflammatory Drug, Cyclooxygenase Inhibitor Start: 06-07-2022 End: 06-28-2022 take 1 tablet by mouth every six hours as needed keTORolac (TORADOL) 10 mg tablet Take 1 tablet by mouth every 6 hours as needed. 20 tablet 06/07/2022 06/28/2022 Discontinued Comment on above: Take 1 tablet by beatriz every 6 hours as needed. mirtazapine 7.5 mg oral tablet (13 sources) Start: 09-22-2023 End: 11-30-2023 Mirtazapine (REMERON) 7.5 mg tablet 09/22/2023 11/30/2023 Discontinued phenazopyridine hydrochloride 100 mg oral tablet (20 sources) Start: 06-24-2019 End: 05-20-2023 take 1 tablet by mouth every eight hours as needed phenazopyridine (PYRIDIUM) 100 mg tablet Take 1 tablet by mouth three times daily as needed. 12 tablet 06/24/2019 05/20/2023 Discontinued Comment on above: Take 1 tablet by beatriz three times daily as needed. prednisoLONE acetate 10 mg/ml ophthalmic suspension (20 sources) Corticosteroid Start: 08-06-2021 End: 05-20-2023 prednisoLONE acetate (PRED FORTE) 1 % ophthalmic suspension Use 1 Drop in the right eye four times daily. 15 mL 08/06/2021 05/20/2023 Discontinued Start: 08-06-2021 prednisoLONE a cetate (PRED FORTE) 1 % ophthalmic suspension Use 1 Drop in the right eye four times daily. 15 mL 0 08/06/2021 Active Comment on above: Use 1 Drop in the ri ght eye four times daily. sodium chloride 0.111 meq/ml nasal spray (8 sources) Start: 02-09-2016 sodium chloride (SALINE MIST) 0.65 % nasal spray Use 1 Alba in the nose as needed for Cold/Allergy Symptoms. Dispense 1 bottle (not 1 ml) 1 mL 11 02/09/2016 Active Comment on above: Use 1 Alba in the n ose as needed for Cold/Allergy Symptoms. Dispense 1 bottle (not 1 ml) sulfamethoxazole 800 mg / trimethoprim 160 mg oral tablet (13 sources) Dihydrofolate Reductase Inhibitor Antibacterial, Sulfonamide Antimicrobial Start: 03-21-2013 End: 03-24-2013 Sulfamethoxazole-Trime thoprim 1 TABLET tablet Discontinued 1 {tbl} PO TWICE A DAY March 21, 2013 1:00am March 24, 2013 11:06am Start: 03-21-2013 End: 03-24-2013 take 1 tablet by mouth twice daily Sulfamethoxazole-Trimethoprim Discontinu ed 1 TABLET PO TWICE A DAY March 21, 2013 1:00am March 24, 2013 11:06am thiothixene 2 mg oral capsule (20 sources) Typical Antipsychotic Start: 09-16-2016 End: 11-20-2023 take 1 capsule by mouth once daily Thiothixene 2 mg capsule Discontinued 2 mg PO DAILY 30 30 0 October 31, 2017 12:00am November 20, 2023 4:43pm Comment on above: Take 1 capsule by mo [facility] daily at bedtime. Per psychiatry, Lorene Dupree, CABLE [employer]ER topiramate 200 mg oral tablet (20 sources) Start: 11-17-2023 End: 07-06-2024 take 1 tablet by mouth once daily topiramate (TOPAMAX) 200 mg tablet Take 200 mg by mouth once daily. 11/17/2023 07/06/2024 Discontinued Start: 03-01-2017 take 1 tablet by beatriz th twice daily topiramate (TOPAMAX) 100 mg tablet Take 100 mg by mouth two times a day. 03/01/2017 Active Start: 09-16-2016 End: 11-30-2023 take 1 tablet by mouth once topiramate (TOPAMAX) 100 m g tablet Take 1 tablet by mouth once daily. Per psychiatrist 09/16/2016 11/30/2023 Discontinued Comment on above: Take 1 tablet by beatriz th once daily. Per psychiatrist traMADol hydrochloride 50 mg oral tablet (7 sources) Opioid Agonist Start: 11-30-19 End: 12-28-19 take 1 tablet by mouth once for pain traMADol (ULTRAM) 50 mg tablet Indications: Chronic midline low back pain, unspecified whether sciatica present , Fibromyalgia Take 1 tablet by mouth every afternoon for 28 days. For breakthrough pain between doses of Nucynta 28 tablet 11/30/2023 12/28/2023 tropicamide 10 mg/ml ophthalmic solution (1 source) Anticholinergic Start: 08-04-19 End: 08-05-19 tropicamide 1 % 1 Drop (MYDRIACYL) vancomycin 25 mg/mL ophthalmic drops ([facility]) (20 sources) Start: 08-05-19 End: 11-30-19 take 1 drop(s) into the eye(s) every two hours vancomycin 25 mg/mL ophthalmic drops ([facility]) Use 1 Drop in the right eye every 2 hours. 15 mL 08/04/2021 11/30/2023 Discontinued Start: 08-04-2021 take 1 drop(s) into the eye(s) every two hours vancomycin 25 mg/mL ophthalmic drops ([facility]) Use 1 Drop in the right eye every 2 hours. 15 mL 08/04/2021 Active Start: 08-04-2021 take 1 drop(s) into the eye(s) every two hours vancomycin 25 mg/mL ophthalmic drops ([facility]) Use 1 Drop in the right eye every 2 hours. 15 mL 0 08/04/2021 Active Comment on above: Use 1 Drop in the ri ght eye every 2 hours. Problems Active Problems Problem Classification Problem Date Documented Da te Episodic/Chronic Abdominal pain (14 sources) Abdominal pain; Translations: [Unspecified abdominal pain] 04-28-2018 Episodic Acquired foot deformities (5 sources) Hammer toe; Translations: [Other hammer toe(s) (acquired), left foot] Onset: 5 Chronic Acquired foot deformities (2 sources) Hallux valgus (acquired), right foot; Translations: [Hallux valgus (acquired)] Onset: 5 11-01-2024 Chronic Allergic reactions (20 sources) Inflammatory dermatosis; Translations: [Dermatitis, unspecified] Episodic Anxiety disorders (13 sources) Mixed anxiety and depressive disorder; Translations: [Other specified anxiety disorders] 12-04-2017 Chronic Asthma (20 sources) Asthma; Translations: [Unspecified asthma, uncomplicated] 03-01-2021 Chronic Blindness and vision defects (13 sources) Visual impairment; Translations: [Unqualified visual loss, right eye, normal vision left eye] Onset: 5 08-09-2021 Chronic Cardiac dysrhythmias (20 sources) Bradycardia; Translations: [Bradycardia, unspecified] Episodic Chronic obstructive pulmonary disease and bronchiectasis (20 sources) Chronic obstructive lung disease; Translations: [Chronic obstructive pulmonary disease, unspecified] Onset: 4 Resolved: 4 01-29-2019 Chronic Chronic ulcer of skin (4 sources) Chronic ulcer of skin; Translations: [Non-pressure chronic ulcer of skin of other sites with fat layer exposed] 05-12-2023 Chronic Conditions associated with dizziness or vertigo (13 sources) Dizziness; Translations: [Dizziness and giddiness] 11-17-2016 Episodic Conduction disorders (20 sources) Complete atrioventricular block; Translations: [Atrioventricular block, complete] Onset: 7 Resolved: 4 09-29-2016 Chronic Comment on above: [employer] Micra [id number] Deficiency and other anemia (2 sources) Microcytic anemia; Translations: [Iron deficiency anemia, unspecified] 08-10-2023 Episodic Deficiency and other anemia (1 source) Iron deficiency anemia; Translations: [Iron deficiency anemia, unspecified] 05-28-2024 Episodic Diabetes mellitus with complications (20 sources) Peripheral neuropathy due to type 2 diabetes mellitus; Translations: [Type 2 diabetes mellitus with diabetic polyneuropathy] Onset: 1 06-14-2020 Chronic Diabetes mellitus without complication (20 sources) Diabetes mellitus; Translations: [Insulin dependent diabetes mellitus] Onset: 4 12-04-2017 Chronic Diseases of mouth; excluding dental (1 source) Oral lesion; Translations: [Other lesions of oral mucosa] Episodic Disorders of lipid metabolism (20 sources) Hyperlipidemia; Translations: [Hyperlipidemia, unspecified] Onset: 9 12-16-2014 Chronic E Codes: Fall (5 sources) Fall in home; Translations: [Unspecified fall, initial encounter] 11-13-2022 Episodic Essential hypertension (13 sources) Hypertensive disorder; Translations: [Essential (primary) hypertension] 06-01-2022 Chronic Genitourinary symptoms and ill-defined conditions (2 sources) Urinary incontinence; Translations: [Unspecified urinary incontinence] Onset: 5 11-12-2024 Chronic Genitourinary symptoms and ill-defined conditions (2 sources) Scalding pain on urination ; Translations: [Dysuria] Episodic Hemorrhoids (13 sources) Thrombosed external hemorrhoids; Translations: [Perianal venous thrombosis] 05-25-2021 Episodic Inflammation; infection of eye (except that caused by tuberculosis or sexually transmitteddisease) (20 sources) Acute endophthalmitis; Translations: [Unspecified purulent endophthalmitis, unspecified eye] Onset: 2 08-02-2021 Chronic Inflammatory diseases of female pelvic organs (1 source) Bacterial vaginosis; Translations: [Acute vaginitis] 11-16-2022 Episodic Mood disorders (7 sources) Depressive disorder; Translations: [Depression] 06-01-2022 Chronic Mycoses (9 sources) Onychomycosis; Translations: [Tinea unguium] Onset: 5 Episodic Noninfectious gastroenteritis (13 sources) Gastroenteritis; Translations: [Noninfective gastroenteritis and colitis, unspecified] 11-08-2018 Episodic Other bone disease and musculoskeletal deformities (1 source) Costal chondritis; Translations: [Chondrocostal junction syndrome [Tietze]] 04-13-2023 Episodic Other connective tissue disease (16 sources) H/O: musculoskeletal disease; Translations: [Personal history of other diseases of the musculoskeletal system and connective tissue] 06-01-2022 Episodic Other connective tissue disease (7 sources) Pain of toe of right foot; Translations: [Pain in right toe(s)] Episodic Other connective tissue disease (7 sources) Pain of toe of left foot; Translations: [Pain in left toe(s)] Episodic Other connective tissue disease (5 sources) Tendinitis of wrist; Translations: [Other enthesopathies, not elsewhere classified] 03-10-2022 Episodic Other connective tissue disease (3 sources) Tendonitis of left wrist; Translations: [Other enthesopathies, not elsewhere classified] 03-10-2022 Episodic Other connective tissue disease (1 source) Pain in right toe(s); Translations: [Pain in toe of right foot] Onset: Episodic Other connective tissue disease (1 source) Pain in left toe(s); Translations: [Pain in toe of left foot] Onset: 5 Episodic Other diseases of veins and lymphatics (1 source) Vascular insufficiency; Translations: [Venous insufficiency (chronic) (peripheral)] Episodic Other eye disorders (11 sources) Corneal ulcer; Translations: [Unspecified corneal ulcer, right eye] 08-09-2021 Episodic Other eye disorders (2 sources) Hypopyon ulcer; Translations: [Corneal ulcer with hypopyon, right eye] Episodic Other female genital disorders (2 sources) Lesion of labia; Translations: [Other specified noninflammatory disorders of vulva and perineum] 11-12-2024 Episodic Other female genital disorders (1 source) Other specified noninflammatory disorders of vulva and perineum; Translations: [Labial lesion] Onset: 5 Episodic Other gastrointestinal disorders (20 sources) Ileostomy present; Translations: [Ileostomy status] Onset: 7 09-29-2016 Chronic Other gastrointestinal disorders (12 sources) H/O: gastrointestinal disease; Translations: [Personal history of other diseases of the digestive system] 06-20-2021 Episodic Other gastrointestinal disorders (3 sources) Diarrhea of presumed infectious origin; Translations: [Diarrhea, unspecified] Episodic Other inflammatory condition of skin (2 sources) Pruritus ani; Translations: [Pruritus ani] 04-30-2023 Episodic Other lower respiratory disease (10 sources) Cough; Translations: [Cough] Episodic Other lower respiratory disease (5 sources) Wheezing; Translations: [Wheezing] 11-01-2022 Episodic Other nervous system disorders (15 sources) Chronic pain; Translations: [Other chronic pain] 11-03-2021 Chronic Other nervous system disorders (7 sources) Chronic pain syndrome; Translations: [Chronic pain syndrome] 06-01-2022 Chronic Other nervous system disorders (1 source) Other chronic pain; Translations: [Chronic midline low back pain, unspecified whether sciatica present] Onset: Chronic Other non-traumatic joint disorders (8 sources) Shoulder pain; Translations: [Pain in left shoulder] 01-13-2021 Episodic Other non-traumatic joint disorders (1 source) Acute ankle pain; Translations: [Pain in right ankle and joints of right foot] Episodic Other non-traumatic joint disorders (5 sources) Pain in left shoulder; Translations: [Acute pain of left shoulder] 01-13-2021 Episodic Other non-traumatic joint disorders (1 source) Hip pain; Translations: [Pain in left hip] 11-16-2022 Episodic Other non-traumatic joint disorders (1 source) Instability of right hip joint; Translations: [Other instability, right hip] 06-28-2022 Episodic Other nutritional; endocrine; and metabolic disorders [...] Chronic Other nutritional; endocrine; and metabolic disorders (13 sources) Obese class I; Translations: [Obesity, unspecified] 12-04-2017 Chronic Other nutritional; endocrine; and metabolic disorders (20 sources) Obesity caused by energy imbalance; Translations: [Other obesity due to excess calories] Onset: 8 Resolved: 7 11-08-2016 Chronic Other nutritional; endocrine; and metabolic disorders (1 source) Other disorders of plasma-protein metabolism, not elsewhere classified; Translations: [Hypoalbuminemia] Onset: 7 Chronic Other screening for suspected conditions (not mental disorders or infectious disease) (19 sources) Patient encounter status; Translations: [Encounter for screening mammogram for malignant neoplasm of breast] Onset: 4 Episodic Other skin disorders (2 sources) Eruption; Translations: [Rash and other nonspecific skin eruption] Episodic Other upper respiratory infections (2 sources) Chronic sinusitis; Translations: [Chronic sinusitis, unspecified] Chronic Other upper respiratory infections (9 sources) Sore throat symptom; Translations: [Acute pharyngitis, unspecified] 10-07-2022 Episodic Pneumonia (except that caused by tuberculosis or sexually transmitted disease) (13 sources) Community acquired pneumonia; Translations: [Pneumonia, unspecified organism] 12-04-2017 Episodic Pulmonary heart disease (13 sources) Pulmonary arterial hypertension; Translations: [Secondary pulmonary arterial hypertension] 12-04-2017 Chronic Residual codes; unclassified (20 sources) Sleep apnea; Translations: [Sleep apnea, unspecified] Onset: 9 11-25-2008 Chronic Residual codes; unclassified (1 source) Persistent insomnia; Translations: [Insomnia, unspecified] 11-30-2023 Episodic Residual codes; unclassified (1 source) Menopause present; Translations: [Asymptomatic menopausal state] 01-29-2024 Episodic Residual codes; unclassified (4 sources) Insomnia; Translations: [Insomnia, unspecified] 11-13-2023 Episodic Retinal detachments; defects; vascular occlusion; and retinopathy (20 sources) Age related macular degeneration; Translations: [Unspecified macular degeneration] Onset: 8 12-18-2007 Chronic Schizophrenia and other psychotic disorders (20 sources) Schizophrenia; Translations: [Other specified types of schizophrenia] Onset: 4 05-02-2008 Chronic Skin and subcutaneous tissue infections (5 sources) Paronychia of finger of left hand; Translations: [Cellulitis of left finger] 01-08-2023 Episodic Superficial injury; contusion (5 sources) Contusion of hip; Translations: [Contusion of left hip, initial encounter] 11-13-2022 Episodic Unclassified (20 sources) Type 2 diabetes mellitus without complication; Translations: [Diabetes mellitus type 2, uncontrolled, without complications] Onset: 8 03-01-2021 Unclassified (1 source) Chronic midline low back pain, unspecified whether sciatica present; Translations: [Chronic midline low back pain, unspecified whether sciatica present] Onset: Urinary tract infections (14 sources) Urinary tract infectious disease; Translations: [Urinary tract infection, site not specified] 06-18-2021 Episodic Viral infection (1 source) Viral disease; Translations: [Viral infection, unspecified] 01-09-2023 Episodic Past or Other Problems Problem Classification Problem Date Documented Da te Episodic/Chronic Abdominal hernia (20 sources) Hernia of anterior abdominal wall; Translations: [Ventral hernia without obstruction or gangrene] Onset: 10-06-2011 09-15-2016 Episodic Acute and unspecified renal failure (20 sources) Acute renal failure syndrome; Translations: [Acute kidney failure, unspecified] Onset: 02-28-2015 Resolved: 03-19-2015 03-01-2021 Episodic Anal and rectal conditions (20 sources) Anal cellulitis; Translations: [Anal abscess] Onset: 10-10-2023 Episodic Complication of device; implant or graft (20 sources) Mechanical complication of [place]; Translations: [Breakdown (mechanical) of infusion catheter, initial encounter] Onset: 04-22-2015 04-22-2015 Episodic Complications of surgical procedures or medical care (20 sources) Small intestine anastomotic leak; Translations: [Other postprocedural complications and disorders of digestive system] Onset: 02-24-2015 Resolved: 07-19-2016 03-01-2021 Episodic Deficiency and other anemia (20 sources) Anemia; Translations: [Anemia, unspecified] Onset: 04-13-2023 04-13-2023 Episodic Deficiency and other anemia (1 source) Iron deficiency anemia, unspecified; Translations: [Microcytic anemia] Onset: 01-10-2024 Episodic Fluid and electrolyte disorders (20 sources) Hyponatremia; Translations: [Hypo-osmolality and hyponatremia] Onset: 02-24-2015 Resolved: 07-19-2016 12-04-2017 Episodic Immunizations and screening for infectious disease (1 source) Encounter for immunization; Translations: [Encounter for immunization] Onset: 01-29-2024 Episodic Inflammation; infection of eye (except that caused by tuberculosis or sexually transmitteddisease) (20 sources) Conjunctivitis; Translations: [Unspecified conjunctivitis] Onset: 08-01-2021 08-02-2021 Episodic Nonspecific chest pain (20 sources) Chest pain; Translations: [Chest pain, unspecified] Onset: 04-18-2024 01-13-2021 Episodic Nutritional deficiencies (20 sources) Magnesium deficiency; Translations: [Magnesium deficiency] Onset: 06-14-2020 06-14-2020 Episodic Other aftercare (1 source) custodial (current) use of insulin; Translations: [Type 2 diabetes mellitus without complication, with long-term current use of insulin (HCC)] Onset: 01-10-2024 Episodic Other connective tissue disease (20 sources) Fibromyalgia; Translations: [Fibromyalgia] Onset: 07-04-2023 05-04-2023 Episodic Other connective tissue disease (1 source) Fibromyalgia; Translations: [Fibromyalgia] Onset: 07-04-2023 Episodic Other gastrointestinal disorders (20 sources) Disorder of abdomen; Translations: [Peritoneal adhesions (postprocedural) (postinfection)] Onset: 09-15-2016 09-15-2016 Episodic Other gastrointestinal disorders (20 sources) Enterocutaneous fistula; 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] Onset: 09-20-2016 09-20-2016 Episodic Other gastrointestinal disorders (20 sources) Fecal soiling co-occurrent and due to fecal incontinence; Translations: [Full incontinence of feces] Onset: 10-10-2023 10-10-2023 Episodic Other lower respiratory disease (20 sources) H/O: respiratory disease; Translations: [Personal history of other diseases of the respiratory system] Onset: 09-15-2016 09-15-2016 Episodic Other nutritional; endocrine; and metabolic disorders (20 sources) Hypoproteinemia; Translations: [Other disorders of glycoprotein metabolism] Onset: 09-29-2016 Resolved: 11-30-2023 09-29-2016 Chronic Other nutritional; endocrine; and metabolic disorders (20 sources) Hyperbilirubinemia; Translations: [Other disorders of bilirubin metabolism] Onset: 03-03-2015 Resolved: 03-08-2015 03-01-2021 Chronic Other skin disorders (20 sources) Fistula; Translations: [Other specified disorders of the skin and subcutaneous tissue] Onset: 04-01-2015 04-01-2015 Episodic Other upper respiratory disease (20 sources) Finding of respiratory device; Translations: [Encounter for attention to tracheostomy] Onset: 04-22-2015 Resolved: 11-30-2023 09-15-2016 Chronic Other upper respiratory disease (20 sources) Tracheostomy present; Translations: [Tracheostomy status] Onset: 07-01-2015 Resolved: 07-24-2017 07-24-2017 Chronic Residual codes; unclassified (20 sources) Altered mental status; Translations: [Altered mental status, unspecified] Onset: 03-02-2015 Resolved: 12-09-2015 03-01-2021 Episodic Residual codes; unclassified (1 source) Insomnia, unspecified; Translations: [Insomnia, unspecified] Onset: 04-18-2024 Episodic Residual codes; unclassified (1 source) Asymptomatic menopausal state; Translations: [Asymptomatic menopause] Onset: 01-29-2024 Episodic Screening and history of mental health and substance abuse codes (8 sources) H/O: manic depressive disorder; Translations: [Personal history of other mental and behavioral disorders] Onset: 01-29-2024 11-13-2023 Episodic Septicemia (except in labor) (20 sources) Septic shock; Translations: [Sepsis due to Escherichia coli [E. coli]] Onset: 02-28-2015 Resolved: 07-19-2016 03-01-2021 Episodic Spondylosis; intervertebral disc disorders; other back problems (20 sources) Chronic low back pain; Translations: [Chronic midline low back pain, unspecified whether sciatica present] Onset: 07-04-2023 07-03-2023 Episodic Substance-related disorders (20 sources) Tobacco user; Translations: [Nicotine dependence, unspecified, uncomplicated] Onset: 10-11-2004 Resolved: 11-18-2011 03-01-2021 Chronic Substance-related disorders (20 sources) Continuous opioid dependence; Translations: [Opioid use, unspecified, uncomplicated] Onset: 09-15-2016 09-15-2016 Episodic Unclassified (1 source) Patient encounter status 05-28-2024 Results Test Name Value Interpretation Reference Range Facility Lipid 1996 panelon 5 Cholesterol [Mass/Vol] 147 mg/dL NINF - 200 mg/dL [facility] Comment on above: <200 mg/dL, Desirabl e 200-239 mg/dL, Borderline high >239 mg/dL, High Cholesterol in HDL [Mass/Vol] 62 mg/dL 39 - PINF mg/dL [facility] Comment on above: 40-59 mg/dL, Accepta ble >59 mg/dL, High: Negative risk factor for coronary heart disease <40 mg/dL, Low: Positive risk factor for coronary heart disease Cholesterol in LDL [Mass/Vol] 70 mg/dL NINF - 100 mg/dL [facility] Comment on above: <100 mg/dL, Optimal 100-129 mg/dL, Near optimal/above optimal 130-159 mg/dL, Borderline high 160-189 mg/dL, High >189 mg/dL, Very high Secondary prevention optimal LDL Cholesterol levels are recommended to be <70 mg/dL LDL cholesterol is calculated using the Doll-NIH equation. Cholesterol in LDL/Cholesterol in HDL [Mass ratio] 1.13 {ratio} NINF - 2.54 [facility] Comment on above: Reference: 1. National Cholesterol Education Program ATP III Guideline At-A-Glance Quick Desk Reference: National Heart, Lung, and Blood [place]. National Institutes of Health. 2001: NIH Publication No. 01-3305. 2. An International Atherosclerosis Society position paper: global recommendations for the management of dyslipidemia: executive summary, Atherosclerosis. 2014: 232(2):410-413. Cholesterol in VLDL [Mass/Vol] 12 mg/dL NINF - 30 mg/dL [facility] Cholesterol non HDL [Mass/Vol] 85 mg/dL NINF - 130 mg/dL [facility] Comment on above: <130 mg/dL, Optimal 130-159 mg/dL, Near optimal/above optimal 160-189 mg/dL, Borderline high 190-219 mg/dL, High >219 mg/dL, Very high Secondary prevention optimal non HDL Cholesterol levels are recommended to be <100 mg/dL Cholesterol.total/Chol esterol in HDL [Mass ratio] 2.37 {ratio} NINF - 5.10 [facility] Fasting Time 18 hrs [facility] Triglyceride [Mass/Vol] 77 mg/dL NINF - 150 mg/dL [facility] Comment on above: <150 mg/dL, Normal 150-199 mg/dL, Borderline high 200-499 mg/dL, High >499 mg/dL, Very high [facility] CHEST 2 VIEWSon 03-15-2024 CHEST [address] [address] Patient: GUTIERREZ OHBSON Phone#: : 1960 Age: 63 Gender: F Pt. Type: ER Account: [id number] Location: [facility] Ordering: CHRISTEL WARNER Exam Date: 03/15/2024/16:44 Family Phys: MORAIMA Charge Code: 999547 Physician: Wright Order #: [id number] Dose#: PROCEDURE: X-RAY CHEST 2 VIEWS COMPARISON: None. INDICATIONS: Cough. FINDINGS: LUNGS: Elevation the right hemidiaphragm. No significant pulmonary parenchymal abnormalities. VASCULATURE: Normal. Unremarkable pulmonary vasculature. CARDIAC: Normal. No cardiac silhouette abnormality or cardiomegaly. MEDIASTINUM: Normal. No visible mass or adenopathy. PLEURA: Normal. No effusion or pleural thickening. BONES: Normal. No fracture or visible bony lesion. OTHER: Electrode is present overlying the anterior thorax. CONCLUSION: 1. There is no evidence of acute pulmonary abnormality. Dictated by: Jenifer Alberts MD on 03/15/2024 at 16:45 Approved by: Jenifer Alberts MD on 03/15/2024 at 16:50 Normal [facility] CORONAVIRUS (SARS) ANTIGEN T ESTon 03-15-2024 EXTERNAL QC DONE? YES Normal [facility] Comment on above: Performed By: #### [id number] #### [address] [address] INTERNAL CONTROL PASS Normal [facility] Comment on above: Performed By: #### [id number] #### [facility],[address] [place] [id number] SARS ANTIGEN Negative Normal NORMAL: NEGATIVE [facility] Comment on above: Performed By: #### [id number] #### [facility],[address] [place] [address] SEND TO ? NO Normal [facility] Comment on above: Result Comment: SARS -CoV-2 THIS TEST IS BEING USED UNDER THE FDA EUA PROCEDURE. THIS ASSAY HAS BEEN VALIDATED AT [facility] FOR USE WITH NASAL AND NASOPHARYNGEAL SWAB SPECIMENS. INTERPRETIVE DATA TEST RESULTS SHOULD ALWAYS BE CONSIDERED IN THE CONTEXT OF CLINICAL OBSERVATIONS AND EPIDEMIOLOGICAL DATA IN MAKING FINAL DIAGNOSIS AND PATIENT MANAGEMENT DECISIONS. PATIENT MANAGEMENT SHOULD FOLLOW CURRENT CDC GUIDELINES. THE FLOR SARS ANTIGEN GUALBERTO DOES NOT DIFFERENTIATE BETWEEN SARS-CoV & SARS-CoV-2. A POSITIVE TEST RESULT INDICATES THE PRESENCE OF SARS-CoV-2 NUCLEOCAPSID PROTEIN ANTIGEN, AND THE PATIENT IS INFECTED WITH THE VIRUS AND PRESUMED TO BE CONTAGIOUS. A NEGATIVE TEST RESULT FOR THIS TEST MEANS THAT SARS-CoV-2 NUCLEOCAPSID PROTEIN ANTIGEN WAS NOT PRESENT IN THE SPECIMEN ABOVE THE LIMIT OF DETECTION. HOWEVER, A NEGATIVE RESULT DOES NOT RULE OUT COVID-19 AND SHOULD NOT BE USED THE SOLE BASIS FOR TREATMENT OR PATIENT MANAGEMENT DECISIONS. A NEGATIVE RESULT DOES NOT EXCLUDE THE POSSIBILITY OF COVID-19. NEGATIVE RESULTS, FROM PATIENTS WITH SYMPTOM ONSET BEYOND FIVE DAYS, SHOULD BE TREATED PRESUMPTIVE AND CONFIRMATION WITH A MOLECULAR ASSAY, IF NECESSARY, FOR PATIENT MANAGEMENT, MAY BE PERFORMED. WHEN DIAGNOSTIC TESTING IS NEGATIVE, THE POSSIBLILTY OF A FALSE NEGATIVE RESULT SHOULD BE CONSIDERED IN THE CONTEXT OF A PATIENT'S RECENT EXPOSURES AND THE PRESENCE OF CLINICAL SIGNS AND SYMPTOMS CONSISTENT WITH COVID-19. THE POSSIBILITY OF A FALSE NEGATIVE RESULT SHOULD ESPECIALLY BE CONSIDERED IF THE PATIENT'S RECENT EXPOSURES OR CLINICAL PRESENTATION INDICATE THAT COVID-19 IS LIKELY, AND DIAGNOSTIC TESTS FOR OTHER CAUSES OF ILLNESS (e.g., OTHER RESPIRATORY ILLNESS) ARE NEGATIVE. IF COVID-19 IS STILL SUSPECTED BASED ON EXPOSURE HISTORY TOGETHER WITH OTHER CLINICAL FINDINGS, RE-TESTING SHOULD BE CONSIDERED BY HEALTHCARE PROVIDERS IN CONSULTATION WITH PUBLIC HEALTH AUTHORITIES. Performed By: #### [id number] #### [facility],[address] [place] [id number] ED MED ADMINISTRATION DETAIL on 03-15-2024 ED MED ADMINISTRATION DETAIL Uniformer Medication Administration Record [address] [place] [address] [id number] 03/15/2024 Patient: GUTIERREZ HOBSON Sex: Female : 1960 Age: 63y MEASUREMENTS: Wt: 79.8 kg, Ht/Naveen: 66.0 in, BMI: 28.41 ALLERGIES: Keflex, Penicillins, cephalexin, morphine, pt is unable to tell me the rest of her allergies Medication Ordered Medication Administration Date/Time of Normal [facility] ED NURSES CLINICAL NOTEon ED NURSES CLINICAL NOTE Nurse Narrative Nurse Clinical Narrative [facility] [address] [place] [address] [id number] 03/15/2024 Patient: GUTIERREZ HOBSON Sex: Female : 1960 Age: 63y Disposition: Discharge to Home Disposition Decision Time: 17:52 03/15/2024 Departure Time: 17:56 03/15/2024 TRIAGE Arrived by private vehicle, and accompanied by family. Triage time: 16:09 03/15/2024. Acuity: LEVEL 4. Chief Complaint: COUGH and COVID-19 test positive (tested 6 days ago). SEPSIS SCREEN: NEGATIVE. SIRS criteria negative. No possible sources of infection. -- 16:14 03/15/24 MILAGROS Velarde R.N. 16:03/15/24. BP: 151/73 MAP: 99. HR: 64. RR: 18. O2 saturation: 99% Temperature: 98.9 F. Pain level now 0/10. -- 16:14 03/15/24 MILAGROS Velarde R.N. Measurements: 16:13 03/15/24 Wt: 79.8 kg, Ht/Naveen: 66.0 in, BMI: 28.41 -- 16:03/15/24 MILAGROS Velarde R.N. Medications: pravastatin 40 mg tablet -- 16:18 03/15/24 MILAGROS Velarde R.N. fluphenazine 1 mg tablet -- 16:18 03/15/24 MILAGROS Velarde R.N. glimepiride 4 mg tablet -- 16:18 03/15/24 MILAGROS Velarde R.N. omeprazole 20 mg capsule,delayed release -- 16:18 03/15/24 MILAGROS Velarde R.N. hydrocortisone 2.5 % topical cream -- 16:18 03/15/24 MILAGROS Velarde R.N. 1 of 4 Nurse Narrative ondansetron 4 mg disintegrating tablet -- 16:18 03/15/24 MILAGROS Velarde R.N. mupirocin 2 % topical ointment -- 16:18 03/15/24 MILAGROS Velarde R.N. Ferrex 150 mg iron capsule -- 16:18 03/15/24 MILAGROS Velarde R.N. topiramate 100 mg tablet -- 16:18 03/15/24 MILAGROS Velarde R.N. magnesium oxide 400 mg (241.3 mg magnesium) tablet -- 16:18 03/15/24 MILAGROS Velarde R.N. trazodone 100 mg tablet -- 16:18 03/15/24 MILAGROS Velarde R.N. mirtazapine 7.5 mg tablet -- 16:18 03/15/24 MILAGROS Velarde R.N. Nyamyc 100,000 unit/gram topical powder -- 16:18 03/15/24 MILAGROS Velarde R.N. ramelteon 8 mg tablet -- 16:18 03/15/24 MILAGROS Velarde R.N. Nucynta 75 mg tablet -- 16:18 03/15/24 MILAGROS Velarde R.N. Lantus Solostar U-100 Insulin 100 unit/mL (3 mL) subcutaneous pen -- 16:18 03/15/24 MILAGROS Velarde R.N. Ingrezza 80 mg capsule -- 16:18 03/15/24 MILAGROS Velarde R.N. Vraylar 3 mg capsule -- 16:18 03/15/24 MILAGROS Velarde R.N. Allergies: Penicillins -- 16:10 03/15/24 MILAGROS Velarde R.N. morphine -- 16:10 03/15/24 MILAGROS Velarde R.N. Keflex -- 16:10 03/15/24 MILAGROS Velarde R.N. cephalexin -- 16:11 03/15/24 MILAGROS Velarde R.N. pt is unable to tell me the rest of her allergies -- 16:11 03/15/24 MILAGROS Velarde R.N. Problems: Asthma -- 16:11 03/15/24 MILAGROS Velarde R.N. COPD - Chronic Obstructive Pulmonary Disease -- 16:11 03/15/24 MILAGROS Velarde R.N. Diabetes Mellitus -- 16:11 03/15/24 MILAGROS Velarde R.N. bowel cancer -- 16:12 03/15/24 MILAGROS Velarde R.N. ADDITIONAL SURGERIES: Colostomy -- 16:12 03/15/24 MILAGROS Velarde R.N. Dilatation Curettage -- 16:12 03/15/24 MILAGROS Velarde R.N. Appendectomy -- 16:12 03/15/24 MILAGROS Velarde R.N. Carpal Tunnel Surgery -- 16:12 03/15/24 MILAGROS Velarde R.N. History 2 of 4 Nurse Narrative 16:03/15/24. SOCIAL HX: Never smoker. Occasional drug use. (marijuana). No alcohol use. ABUSE ASSESSMENT: Abuse denied. SELF HARM ASSESSMENT: Self harm assessment was performed. The patient answered no to the question(s) Do you have thoughts of harming or killing yourself? and Do you have a plan for harming or killing yourself?. FALL RISK ASSESSMENT: Fall risk assessment completed. No risk factors identified. -- 16:14 03/15/24 MILAGROS Velarde R.N. 16:03/15/24. SOCIAL HX: The patient has not traveled outside the [place] Infectious disease exposure: No infectious disease exposure. -- 16:18 03/15/24 MILAGROS Velarde R.N. Interventions 16:03/15/24. Advanced care plan discussed with patient. Patient has advanced directive. -- 16:14 03/15/24 EST Contreras Velarde R.N. PHYSICAL ASSESSMENT 17:09 03/15/24. ( sitting in bed no distress.). GENERAL / NEURO / PSYCH: Alert. Oriented X 4. RESPIRATORY: Respirations not labored. Chest nontender. Breath sounds within normal limits. SKIN: Skin is warm. -- 17:03/15/24 EST Stephanie Morfin R.N. NURSING PROGRESS NOTES 17:03/15/24. Patient identifiers checked. Call light placed in reach. Side rails up. Bed placed in lowest position. Brakes of bed on. -- 17:03/15/24 EST Stephanie Morfin R.N. DISPOSITION / DISCHARGE Departure time: 17:56 03/15/2024. Condition at departure: unchanged. No learning barriers present. Discharge instructions provided and reviewed with the patient. The patient was discharged home and accompanied by welt drawer. The patient left ambulatory and via private vehicle. Family member driving. -- 17:56 03/15/24 EST Shay Soria (more content not included)... Normal [facility] ED ORDER SHEET (CPOE ONLY)on 03-15-2024 ED ORDER SHEET (CPOE ONLY) Order Sheet Order Sheet [address] [place] [address] [id number] 03/15/2024 Patient: GUTIERREZ HOBSNO Sex: Female : 1960 Age: 63y MEASUREMENTS: Wt: 79.8 kg, Ht/Naveen: 66.0 in, BMI: 28.41 ALLERGIES: Keflex, Penicillins, cephalexin, morphine, pt is unable to tell me the rest of her allergies MEDICATION/IV/DRIP/FLUID ORDERS Order Description Priority Entered Acknowledged Completed LAB ORDERS Order Description Priority Entered Acknowledged Collected Completed Rapid COVID (SARS) Stat 16:32 03/15/2024 16:45 03/15/2024 16:50 03/15/2024 ANTIGEN TEST Stat Stephanie Gallo R.N. Jaci Pierce, R.N. DWayneOWayne DIAGNOSTIC STUDY ORDERS Order Description Priority Entered Acknowledged Completed Chest 2V Stat Stat 16:32 03/15/2024 16:45 Christel Warner 03/15/2024 Temo Morfin R.N. Order Comments: 16:32 03/15/2024: Status: Not . Christel Warner D.O. Reason for Study: Cough STAFF ORDERS 1 of 2 Order Sheet Order Description Priority Entered Acknowledged Collected Completed [Electronically signed by Christel Warner D.O. (03/15/2024 18:17 EST)] 2 of 2 Normal [facility] ED PHYSICIAN CLINICAL REPORT on 03-15-2024 ED PHYSICIAN CLINICAL REPORT Narrative Physician Clinical Narrative [facility] [address] [place] [address] [phone] 03/15/2024 [id number] Sex[facility] Female : 1960 Age: 63y Disposition: Discharge to Home Disposition Decision Time: 17:52 03/15/2024 Departure Time: 17:56 03/15/2024 Measurements Wt: 79.8 kg, Ht/Naveen: 66.0 in, BMI: 28.41 Initial Vital Sign Measured Time BP MAP HR RR O2Sat ETCO2 Temp Pain GCS RTS 16:13 03/15/2024 151/73 99 64 18 99% 98.9 F 0 Time Seen: 16:07 03/15/2024. Arrived- By private vehicle. Historian- patient. Independent historian- family. HISTORY OF PRESENT ILLNESS Chief Complaint: covid. (patient stated last weeks he was not feeling well she went to the her doctor's office he was diagnosed with COVID. And since then she has felt better her cough has decreased she denies any chest pain or shortness of breath or vomiting but was 1 the had another COVID test to see if it would be positive and presents to the emergency department. Her has similar symptoms). The patient has had a cough. No sputum production, fever, sweating episodes, wheezing or dyspnea on exertion. No chest pain or discomfort. REVIEW OF SYSTEMS SKIN: No skin rash. : No difficulty with urination. ENDO/HEME/LYMPH: No enlarged lymph nodes. EYES: No eye irritation. THROAT: No sore throat. NOSE: The patient has had a nasal discharge and sinus drainage. GI: No nausea or vomiting. NEUROLOGICAL: No headache. CONSTITUTIONAL: The patient has not had weight loss. 1 of 7 Narrative Status: Not . PAST HISTORY See nurses notes. Asthma bowel cancer COPD - Chronic Obstructive Pulmonary Disease Diabetes Mellitus Surgeries: Appendectomy Carpal Tunnel Surgery Colostomy Dilatation Curettage Medications: Ferrex 150 mg iron capsule fluphenazine 1 mg tablet glimepiride 4 mg tablet hydrocortisone 2.5 % topical cream Ingrezza 80 mg capsule Lantus Solostar U-100 Insulin 100 unit/mL (3 mL) subcutaneous pen magnesium oxide 400 mg (241.3 mg magnesium) tablet mirtazapine 7.5 mg tablet mupirocin 2 % topical ointment Nucynta 75 mg tablet Nyamyc 100,000 unit/gram topical powder omeprazole 20 mg capsule,delayed release ondansetron 4 mg disintegrating tablet pravastatin 40 mg tablet ramelteon 8 mg tablet topiramate 100 mg tablet trazodone 100 mg tablet Vraylar 3 mg capsule Allergies: cephalexin 2 of 7 Narrative Keflex morphine Penicillins pt is unable to tell me the rest of her allergies SOCIAL HISTORY Former smoker. No alcohol use. ADDITIONAL NOTES The nursing notes have been reviewed. PHYSICAL EXAM Appearance: Alert. No acute distress. Eyes: Pupils equal, round and reactive to light. Eyes normal inspection. ENT: Ears normal. Nose normal. Neck: Normal inspection. No jugular venous distention. CVS: Normal heart rate. Heart sounds normal. Respiratory: No respiratory distress. Painless inspiration. Abdomen: Soft and nontender. Back: Normal inspection. Skin: Skin warm and dry. Normal skin color. Normal skin turgor. Extremities: Extremities exhibit normal ROM. No lower extremity edema. Neuro: Oriented X 3. No motor deficit. LABS, X-RAYS, AND EKG Laboratory Tests: CORONAVIRUS (SARS) ANTIGEN TEST Final [place]ISE: 03/15/2024 16:50:00 EST MsgRcvd: 03/15/2024 17:51 EST Lab Test Result Reference Status Received Comments NORMAL: 03/15/2024 SARS ANTIGEN NEGATIVE Final NEGATIVE 17:51 EST 3 of 7 Narrative INTERNAL 03/15/2024 PASS Final CONTROL 17:51 EST EXTERNAL QC 03/15/2024 YES Final DONE? 17:51 EST 4 of 7 Narrative SARS-CoV-2 THIS TEST IS BEING USED UNDER THE FDA EUA PROCEDURE. THIS ASSAY HAS BEEN VALIDATED AT [facility] FOR USE WITH NASAL AND NASOPHARYNGEAL SWAB SPECIMENS. INTERPRETIVE DATA TEST RESULTS SHOULD ALWAYS BE CONSIDERED IN THE CONTEXT OF CLINICAL OBSERVATIONS AND EPIDEMIOLOGICAL DATA IN MAKING FINAL DIAGNOSIS AND PATIENT MANAGEMENT DECISIONS. PATIENT MANAGEMENT SHOULD FOLLOW CURRENT CDC GUIDELINES. THE FLOR SARS 5 of 7 ANTIGEN GUALBERTO DOES NOT Narrative Diagnostic Study Tests: CHEST 2 VIEWS Final EXAM Date: 03/15/2024 16:45:00 EST MsgRcvd: 03/15/2024 16:[address] [address] Patient: GUTIERREZ HOBSON Phone#: : 1960 Age: 63 Gender: F Pt. Type: ER Account: [id number] Location: [facility] Ordering: CHRISTEL WARNER Exam Date: 03/15/2024/16:44 Family Phys: TALAMYSAS Charge Code: [id number] Physician: Wright Order #: [id number] Dose#: PROCEDURE: X-RAY CHEST 2 VIEWS COMPARISON: None. INDICATIONS: Cough. FINDINGS: LUNGS: Elevation the right hemidiaphragm. No signi (more content not included)... Normal [facility] ED SUPER BILLon 03-15-2024 ED SUPER BILL [address] [address] [id number] 03/15/2024 Patient: GUTIERREZ HOBSON Sex: Female : 1960 Age: 63y Item Professional Category Description Facility Code Code Quantity Fee Total Nurse/E/M EMERGENCY 844525 1 $0.00 $0.00 DEPARTMENT VISIT LIMITED/MINOR PROB (32037-26) Grand Total $0.00 Providers Christel Warner D.O. Chief Complaint covid. Principal Diagnosis COVID-19. ICD-10 Codes 1 of 2 [facility] U07.1: COVID-19 2 of 2 Normal [facility] ED VISIT SUMMARYon ED VISIT SUMMARY Visit Overview Visit Overview [address] [address] [id number] 03/15/2024 Patient: GUTIERREZ HOBSON Sex: Female : 1960 Age: 63y 03/15/2024 06:17 PM EST ED Arrival:15:54 03/15/2024 EST Status:not Recent Travel:no Language:eng Adv Directive:Yes Isolation Status: Ethnicity:N Fall Risk:no risk Infectious Disease Exposure:no Measurements:5'6 / 167.6 Self-Harm Status:no risk Sepsis Screen:negative cm 176.0 lb / 79.8 kg Chief Complaint:COUGH, COVID-19 test positive, tested @6 days ago, and (6 days ago) ALLERGIES cephalexin Keflex morphine Penicillins pt is unable to tell me the rest of her allergies HOME MEDICATIONS Ferrex 150 mg iron capsule fluphenazine 1 mg tablet 1 of 4 Visit Overview glimepiride 4 mg tablet hydrocortisone 2.5 % topical cream Ingrezza 80 mg capsule Lantus Solostar U-100 Insulin 100 unit/mL (3 mL) subcutaneous pen magnesium oxide 400 mg (241.3 mg magnesium) tablet mirtazapine 7.5 mg tablet mupirocin 2 % topical ointment Nucynta 75 mg tablet Nyamyc 100,000 unit/gram topical powder omeprazole 20 mg capsule,delayed release ondansetron 4 mg disintegrating tablet pravastatin 40 mg tablet ramelteon 8 mg tablet topiramate 100 mg tablet trazodone 100 mg tablet Vraylar 3 mg capsule PAST MEDICAL HISTORY / PROBLEMS Asthma bowel cancer COPD - Chronic Obstructive Pulmonary Disease Diabetes Mellitus See nurses notes PAST SURGICAL HISTORY Appendectomy Carpal Tunnel Surgery Colostomy Dilatation Curettage SOCIAL HISTORY Smoking status: No Alcohol use: No Drug use: Yes 2 of 4 Visit Overview ED COURSE MEDICATIONS GIVEN IN EMERGENCY DEPARTMENT IV SITE INFORMATION INTAKE OUTPUT REASSESMENT (most recent) 17:09 03/15/24. ( sitting in bed no distress.). GENERAL / NEURO / PSYCH: Alert. Oriented X 4. RESPIRATORY: Respirations not labored. Chest nontender. Breath sounds within normal limits. SKIN: Skin is warm. VITAL SIGNS First Vitals Last Vitals Temp 16:13 03/15/24 98.9 F Temp 16:13 03/15/24 98.9 F BP 16:13 03/15/24 151/73 BP 16:13 03/15/24 151/73 HR 16:13 03/15/24 64 HR 16:13 03/15/24 64 RR 16:13 03/15/24 18 RR 16:13 03/15/24 18 O2 Sat 16:13 03/15/24 99% O2 Sat 16:13 03/15/24 99% Pain 16:13 03/15/24 0 Pain 16:13 03/15/24 0 ETCO2 16:13 03/15/24 ETCO2 16:13 03/15/24 GCS 16:13 03/15/24 GCS 16:13 03/15/24 RTS 16:13 03/15/24 RTS 16:13 03/15/24 PROCEDURES NURSING INTERVENTIONS LABS / STUDIES LABS / STUDIES ORDERED Chest 2V Rapid COVID (SARS) ANTIGEN TEST CLINICAL IMPRESSION 3 of 4 Visit Overview COVID-19 4 of 4 Normal [facility] ED VITALS FLOW SHEETon 03-15 ED VITALS FLOW SHEET Vitals Vital Sign Flow Sheet [address] [address] [id number] 03/15/2024 Patient: GUTIERREZ HOBSON Sex: Female : 1960 Age: 63y Measurements Wt: 79.8 kg, Ht/Naveen: 66.0 in, BMI: 28.41 Measured Time BP MAP HR RR O2Sat ETCO2 Temp Pain GCS RTS 16:13 03/15/2024 151/73 99 64 18 99% 98.9 F 0 1 of 1 Normal [facility] URINE CULTURE [CCL]on 2023 Bacteria identified Cx Nom (U) URCUL See Results Below See Below CULTURE, URINE NORMAL UROGENITAL LILIA <10,000 CFU/ml Normal urogenital lilia SOURCE: Urine (Nonspecific) [address] [address] Jarad Chapa III, M.D. [id number] SEND TO IC NO Normal [facility] Comment on above: Performed By: #### 2 33988 ####[facility],[address] [place] [address] CBC + DIFFon 11-25-2023 Baso # 0.02 x10EE3/UL Normal 0.00 - 0.10 [facility] Comment on above: Performed By: #### 2 65248 ####[facility],[address] [place] [address]555 Basophils/100 WBC (Bld) 0.2 % Normal 0.0 - 2.0 [facility] Comment on above: Performed By: #### 2 28838 ####[facility],[address] [place] [address] CBC + DIFF Normal [facility] Comment on above: Result Comment: CBC- COMPLETE BLOOD COUNT Performed By: #### 2 27210 ####[facility],[address] [place] [address] EO # 0.09 x10EE3/UL Normal 0.00 - 0.50 [facility] Comment on above: Performed By: #### 2 59623 ####[facility],[address] [place] [address] Eosinophils/100 WBC (Bld) 0.8 % Normal 0.0 - 7.0 [facility] Comment on above: Performed By: #### 2 10940 ####[facility],[address] [place], [place] [id number] Erythrocyte distribution width (RBC) [Ratio] 14.2 % Normal 12.0 - 15.6 [facility] Comment on above: Performed By: #### 2 91443 ####[facility],[address] [place] [address] Hematocrit (Bld) [Volume fraction] 37.6 % Normal 34.0 - 46.0 [facility] Comment on above: Performed By: #### 2 42571 ####[facility],[address] [place] [address] Hemoglobin (Bld) [Mass/Vol] 12.4 g/dL Normal 12.0 - 16.0 [facility] Comment on above: Performed By: #### 2 99714 ####[facility],[address] [place] [address] Lymph # 0.77 x10EE3/UL Low 0.80 - 2.80 [facility] Comment on above: Performed By: #### 2 27463 ####[facility],[address] [place], [place] [phone] Lymphocytes/100 WBC (Bld) 7.1 % Low 20.0 - 45.0 [facility] Comment on above: Performed By: #### 2 53121 ####[facility],[address] [place] [address] 31142 MANUAL DIFF N/A Normal [facility] Comment on above: Performed By: #### 2 68963 ####[facility],[address] [place], [place] [phone] MCH (RBC) [Entitic mass] 29 pg Normal 27 - 33 [facility] Comment on above: Performed By: #### 2 13187 ####[facility],[address] [place] [address] MCHC 33 X10 3 Normal 32 - 36 [facility] Comment on above: Performed By: #### 2 45043 ####[facility],[address] [place] [address]30 MCV (RBC) [Entitic vol] 88 fL Normal 80 - 99 [facility] Comment on above: Performed By: #### 2 63533 ####[facility],[address] [place] [address] Turner # 0.47 x10EE3/UL Normal 0.20 - 1.00 [facility] Comment on above: Performed By: #### 2 21254 ####[facility],[address] [place] [address] 51734 MONOS % 4.3 % Normal 0.0 - 10.0 [facility] Comment on above: Performed By: #### 2 43720 ####[facility],[address] [place] [address] 28833 Morphology Prince (Bld) [Interp] N/A Normal [facility] Comment on above: Performed By: #### 2 79530 ####[facility],[address] [place] [address] Neut # 9.53 x10EE3/UL High 1.50 - 7.10 [facility] Comment on above: Performed By: #### 2 80217 ####[facility],[address] [place] [address] Neutrophils/100 WBC (Bld) 87.6 % High 46.0 - 76.0 [facility] Comment on above: Performed By: #### 2 65620 ####[facility],[address] [place] [address]385 PLATELET 329 x10EE3/UL Normal 150 - 450 [facility] Comment on above: Performed By: #### 2 02555 ####[facility],[address] [place] [address] 31633 Platelet mean volume (Bld) [Entitic vol] 7.0 fL Normal 6.6 - 10.5 [facility] Comment on above: Result Comment: AUTO MATED DIFFERENTIAL Performed By: #### 2 49057 ####[facility],[address] [place] [address] 11830 RBC 4.29 x 10EE6/UL Normal 4.10 - 5.30 [facility] Comment on above: Performed By: #### 2 97601 ####[facility],[address] [place] [address] 15931 WBC 10.9 x 10EE3/UL High 4.5 - 10.8 [facility] Comment on above: Performed By: #### 2 48463 ####[facility],[address] [place] [address]67 CMP with eGFRon 11-25-2023 AGE 63 years Normal [facility] Comment on above: Performed By: #### 2 37594 #### [facility],[address] [place] [address] 66912 Albumin [Mass/Vol] 3.8 g/dL Normal 3.4 - 5.0 [facility] Comment on above: Performed By: #### 2 58108 #### [facility],[address] [place] [address]696 Albumin/Globulin [Mass ratio] 0.9 {ratio} Normal 0.9 - 1.6 [facility] Comment on above: Performed By: #### 2 01245 #### [facility],[address] [place] [address] 61040 ALK PHOS 77 U/L Normal 46 - 116 [facility] Comment on above: Performed By: #### 2 94359 #### [facility],[address] [place] [address] 22079 ALT [Catalytic activity/Vol] 21 U/L Normal 16 - 63 [facility] Comment on above: Performed By: #### 2 47037 #### [facility],[address] [place] [address] 41798 Anion gap [Moles/Vol] 18 mmol/L Normal 10 - 20 [facility] Comment on above: Performed By: #### 2 77467 #### [facility],[address] [place] [address] 73689 AST [Catalytic activity/Vol] 19 U/L Normal 13 - 39 [facility] Comment on above: Performed By: #### 2 62354 #### [facility],[address] [place] [address] 98007 B/C RATIO 15 ratio Normal 0 - 30 [facility] Comment on above: Performed By: #### 2 47262 #### [facility],[address] [place] [address] 39145 Bilirubin [Mass/Vol] 0.3 mg/dL Normal 0.2 - 1.0 [facility] Comment on above: Performed By: #### 2 73896 #### [facility],[address] [place] [address]228 Calcium [Mass/Vol] 9.2 mg/dL Normal 8.5 - 10.1 [facility] Comment on above: Performed By: #### 2 14214 #### [facility],[address] [place], [place] [phone] Chloride [Moles/Vol] 92 mmol/L Low 98 - 107 [facility] Comment on above: Performed By: #### 2 50898 #### [facility],[address] [place], [place] [phone] CMP with eGFR Normal [facility] Comment on above: Result Comment: COMP REHENSIVE METABOLIC PANEL Performed By: #### 2 10199 #### [facility],[address] [place], [place] [phone] CO2 [Moles/Vol] 19.5 mmol/L Low 21.0 - 32.0 [facility] Comment on above: Performed By: #### 2 23289 #### [facility],[address] [place] [address] 26776 Creatinine [Mass/Vol] 2.07 mg/dL High 0.55 - 1.02 [facility] Comment on above: Performed By: #### 2 11534 #### [facility],[address] [place] [address] 49090 eGFR 24 ML/MINUTE Low 60 - 999 [facility] Comment on above: Performed By: #### 2 46190 #### [facility],[address] [place] [address] 75010 eGFR(AA) 29 ML/MINUTE Low 60 - 999 [facility] Comment on above: Result Comment: ACCO RDING TO THE NATIONAL KIDNEY DISEASE EDUCATION PROGRAM(NKDE), A NORMAL eGFR IS A VALUE GREATER THAN OR EQUAL TO 60 ML/MIN/1.73 SQ METERS. CHRONIC KIDNEY DISEASE: <60mL/MIN/1.73 SQ METERS KIDNEY FAILURE: <15mL/MIN/1.73 SQ METERS THIS TEST SHOULD ONLY BE USED FOR PATIENTS 18 YEARS OF AGE AND OLDER. Performed By: #### 2 86772 #### [facility],[address] [place] [address] 10512 Globulin (S) [Mass/Vol] 4.3 g/dL High 1.5 - 3.8 [facility] Comment on above: Performed By: #### 2 63550 #### [facility],[address] [place] [address] 03214 Glucose [Mass/Vol] 167 mg/dL High 74 - 106 [facility] Comment on above: Performed By: #### 2 73359 #### [facility],[address] [place] [address] 46200 Potassium [Moles/Vol] 4.6 mmol/L Normal 3.5 - 5.1 [facility] Comment on above: Performed By: #### 2 82949 #### [facility],[address] [place] [address] 39766 Protein [Mass/Vol] 8.1 g/dL Normal 6.4 - 8.2 [facility] Comment on above: Performed By: #### 2 03602 #### [facility],[address] [place] [address] 05440 Sodium [Moles/Vol] 125 mmol/L Low 136 - 145 [facility] Comment on above: Performed By: #### 2 34040 #### [facility],[address] [place] [address] 76075 Urea nitrogen [Mass/Vol] 32 mg/dL High 7 - 18 [facility] Comment on above: Performed By: #### 2 26256 #### [facility],[address] [place] [address] 79133 CORONAVIRUS (SARS) ANTIGEN T ESTon 11-25-2023 EXTERNAL QC DONE? YES Normal [facility] Comment on above: Performed By: #### 2 20336 #### [facility],[address] [place] [address] 75457 INTERNAL CONTROL PASS Normal [facility] Comment on above: Performed By: #### 2 28106 #### [facility],[address] [place] [address],[facility] [address] SARS ANTIGEN Negative Normal NORMAL: NEGATIVE [facility] Comment on above: Performed By: #### 2 18909 #### [facility],[address] [place] [address],[facility] [address] SEND TO IC? NO Normal [facility] Comment on above: Result Comment: SARS -CoV-2 THIS TEST IS BEING USED UNDER THE FDA EUA PROCEDURE. THIS ASSAY HAS BEEN VALIDATED AT [facility] FOR USE WITH NASAL AND NASOPHARYNGEAL SWAB SPECIMENS. INTERPRETIVE DATA TEST RESULTS SHOULD ALWAYS BE CONSIDERED IN THE CONTEXT OF CLINICAL OBSERVATIONS AND EPIDEMIOLOGICAL DATA IN MAKING FINAL DIAGNOSIS AND PATIENT MANAGEMENT DECISIONS. PATIENT MANAGEMENT SHOULD FOLLOW CURRENT CDC GUIDELINES. THE FLOR SARS ANTIGEN GUALBERTO DOES NOT DIFFERENTIATE BETWEEN SARS-CoV & SARS-CoV-2. A POSITIVE TEST RESULT INDICATES THE PRESENCE OF SARS-CoV-2 NUCLEOCAPSID PROTEIN ANTIGEN, AND THE PATIENT IS INFECTED WITH THE VIRUS AND PRESUMED TO BE CONTAGIOUS. A NEGATIVE TEST RESULT FOR THIS TEST MEANS THAT SARS-CoV-2 NUCLEOCAPSID PROTEIN ANTIGEN WAS NOT PRESENT IN THE SPECIMEN ABOVE THE LIMIT OF DETECTION. HOWEVER, A NEGATIVE RESULT DOES NOT RULE OUT COVID-19 AND SHOULD NOT BE USED THE SOLE BASIS FOR TREATMENT OR PATIENT MANAGEMENT DECISIONS. A NEGATIVE RESULT DOES NOT EXCLUDE THE POSSIBILITY OF COVID-19. NEGATIVE RESULTS, FROM PATIENTS WITH SYMPTOM ONSET BEYOND FIVE DAYS, SHOULD BE TREATED PRESUMPTIVE AND CONFIRMATION WITH A MOLECULAR ASSAY, IF NECESSARY, FOR PATIENT MANAGEMENT, MAY BE PERFORMED. WHEN DIAGNOSTIC TESTING IS NEGATIVE, THE POSSIBLILTY OF A FALSE NEGATIVE RESULT SHOULD BE CONSIDERED IN THE CONTEXT OF A PATIENT'S RECENT EXPOSURES AND THE PRESENCE OF CLINICAL SIGNS AND SYMPTOMS CONSISTENT WITH COVID-19. THE POSSIBILITY OF A FALSE NEGATIVE RESULT SHOULD ESPECIALLY BE CONSIDERED IF THE PATIENT'S RECENT EXPOSURES OR CLINICAL PRESENTATION INDICATE THAT COVID-19 IS LIKELY, AND DIAGNOSTIC TESTS FOR OTHER CAUSES OF ILLNESS (e.g., OTHER RESPIRATORY ILLNESS) ARE NEGATIVE. IF COVID-19 IS STILL SUSPECTED BASED ON EXPOSURE HISTORY TOGETHER WITH OTHER CLINICAL FINDINGS, RE-TESTING SHOULD BE CONSIDERED BY HEALTHCARE PROVIDERS IN CONSULTATION WITH PUBLIC HEALTH AUTHORITIES. Performed By: #### 2 05905 #### [place] [address] INFLUENZA VIRUS RAPID A/Bon 11-25-2023 INFLUENZA VIRUS RAPID A/B INFLUENZA A NEGATIVE INFLUENZA B NEGATIVE INTERNAL NEG QC PASS INTERNAL POS QC PASS EXTERNAL QC DONE? YES SEND TO IC? NO A NEGATIVE TEST RESULT DOES NOT EXCLUDE INFECTION WITH INFLUENZA A OR B. THEREFORE, THE RESULTS OBTAINED FROM THIS FLU TEST SHOULD BE USED IN CONJUCTION WITH CLINICAL FINDINGS TO MAKE AN ACCURATE DIAGNOSIS. A POSITIVE RESULT DOES NOT RULE OUT CO-INFECTIONS WITH OTHER PATHOGENS OR IDENTIFY ANY SPECIFIC INFLUENZA A VIRUS SUBTYPE.CO-INFECTION WITH INFLUENZA A AND B IS RARE. IT IS RECOMMENDED THAT DUAL POSITIVE RESULTS BE CONFIRMED BY VIRAL CULTURE OR AN FDA-CLEARED INFLUENZA A AND B MOLECULAR ASSAY. INDIVIDUALS WHO HAVE RECEIVED NASALLY ADMINISTERED INFLUENZA A VACCINE MAY TEST POSITIVE IN COMMERCIALLY AVAILABLE INFLUENZA RAPID DIAGNOSTIC TESTS FOR UP TO THREE DAYS. RESULT CRITICAL? NO Normal [facility] Comment on above: Performed By: #### 2 21338 #### [place] [address] LIPASEon 11-25-2023 Lipase [Catalytic activity/Vol] 22.0 U/L Normal 15.0 - 78.0 [facility] Comment on above: Result Comment: *PLE ASE NOTE THAT RANGES FOR LIPASE HAVE CHANGED OF 03/03/23 DUE TO AN ASSAY UPDATE BY THE COOKING CASING AND DRYING SUPERVISOR.THE NEW ASSAY RANGE IS 6-250 U/L, WITH A REFERENCE RANGE OF 16-77 U/L. Performed By: #### 2 83837 #### [place] [id number] URINALYSISon 11-25-2023 Amorphous 2+ Normal [facility] Comment on above: Performed By: #### 2 59126 #### [address] [address] Bacteria NONE Normal [facility] Comment on above: Performed By: #### 2 34386 #### [address],[place] [address] Bilirubin Ql (U) Negative Normal NORMAL: NEGATIVE [facility] Comment on above: Performed By: #### 2 95814 #### [facility],[address] [place] [address] Casts SEE BELOW Normal [facility] Comment on above: Performed By: #### 2 46392 #### [facility],[address] [place] [address] Clarity (U) clear Normal NORMAL: CLEAR [facility] Comment on above: Performed By: #### 2 40724 #### [facility],[address] [place] [address] Color (U) yellow Normal NORMAL: YELLOW [facility] Comment on above: Performed By: #### 2 84351 #### [facility],[address] [place] [address] Crystals LM Nom (Urine sed) NONE Normal [facility] Comment on above: Performed By: #### 2 15163 #### [facility],[address] [place], [place] [phone] Epi Cells FEW Normal [facility] Comment on above: Performed By: #### 2 89112 #### [facility],[address] [place] [address] 40988 Glucose Ql (U) NORM Normal NORMAL: NORMAL [facility] Comment on above: Performed By: #### 2 97538 #### [facility],[address] [place] [address] 56102 Hemoglobin Ql (U) 25 Abnormal NORMAL: NEGATIVE [facility] Comment on above: Performed By: #### 2 57084 #### [facility],[address] [place] [address] 38550 Hyaline 1-5 Normal NORMAL: NONE [facility] Comment on above: Performed By: #### 2 01167 #### [facility],[address],[place] [address] Ketone Negative Normal NORMAL: NEGATIVE [facility] Comment on above: Performed By: #### 2 63284 #### [facility],[address] [place] [address] 50334 Leukocytes 500 Abnormal NORMAL: NEGATIVE [facility] Comment on above: Performed By: #### 2 29418 #### [facility],[address] [place] [address] 63462 Mucous 1+ Normal [facility] Comment on above: Performed By: #### 2 27685 #### [facility],[address] [place] [address] Nitrite Ql (U) Negative Normal NORMAL: NEGATIVE [facility] Comment on above: Performed By: #### 2 61053 #### [facility],[address] [place] [address] pH (U) 5 [pH] Normal NORMAL: 5.0-8.0 [facility] Comment on above: Performed By: #### 2 23426 #### [facility],[address] [place] [address] 77474 Protein Ql (U) 15 Abnormal NORMAL: NEGATIVE [facility] Comment on above: Performed By: #### 2 [id number] #### [facility],[address] [place] [address] 92881 Rbc 0-5 Normal 0-3/hpf [facility] Comment on above: Performed By: #### 2 [id number] #### [facility],[address] [place] [address] 35625 Sp [place] 1.025 Normal NORMAL: 1.010-1.030 [facility] Comment on above: Performed By: #### 2 [id number] #### [facility],[address] [place] [address] Specimen Type UNSPECIFIED Normal [facility] Comment on above: Performed By: #### 2 59930 #### [facility],[address] [place] [address] Urinalysis dipstick W Reflex Microscopic panel (U) SEE BELOW Normal [facility] Comment on above: Result Comment: MICR OSCOPIC Performed By: #### 2 [id number] #### [facility],[address] [place] [address] Urobilinog NORM Normal NORMAL: NORMAL [facility] Comment on above: Performed By: #### 2 57308 #### [facility],[address] [place] [address] Wbc 6-10 Normal 0-5/hpf [facility] Comment on above: Performed By: #### 2 [id number] #### [facility],[address] [place] [address] Yeast NONE Normal [facility] Comment on above: Performed By: #### 2 68071 #### [facility],[address] [place] [address] 12 Lead EKGon 11-20-2023 12 Lead EKG [facility] Cardiovascular Services [address] [place] [address] 12 Lead EKG 11/20/23 1705 MR#: [id number] Acct: [id number] Name: GUTIERREZ HOBSON ALL Rep #: [id number] : 1960 63 From: Lio Harley MD Attending Dr: Status: DEP ER Ordering Dr: Cynthia Schwarz DO Date: 11/20/23 Location: ED Sex: F C Admitted: Test Reason : CP Blood Pressure : / mmHG Vent. Rate : 061 BPM Atrial Rate : 061 BPM P-R Int : 188 ms QRS Dur : 140 ms QT Int : 448 ms P-R-T Axes : 031 022 017 degrees QTc Int : 450 ms Normal sinus rhythm Right bundle branch block Abnormal ECG When compared with ECG of 08-APR-2023 17:39, No significant change was found Confirmed by Lio Harley ([id number]), editor index MICHAEL MAURER ([id number]) on 11/27/2023 10:54:32 AM Referred By: Confirmed By:Lio Harley 11/27/23 1054 Date Lio Harley MD CC: Dr. Cynthia Schwarz DO; Dr. Tiff Pearson MD Signed Normal [facility] Basic Metabolic Profile (BMP )on 11-20-2023 BUN/CRE 17.6 RATIO Normal 10-20 [facility] Comment on above: Order Comment: 'TROP ' Serial specimen #1, #2 or #3: 1 Performed By: #### L 501.2450, L501.4020, L500.3400, L500.2500 #### [facility] Laboratory [address] [place], [address] CA,Total 8.7 mg/dL Normal 8.5-10.1 [facility] Comment on above: Order Comment: 'TROP ' Serial specimen #1, #2 or #3: 1 Performed By: #### L 501.2450, L501.4020, L500.3400, L500.2500 #### [facility] [address] [place], [address] Chloride [Moles/Vol] 104 mmol/L Normal 98-107 [facility] Comment on above: Order Comment: 'TROP ' Serial specimen #1, #2 or #3: 1 Performed By: #### L 501.2450, L501.4020, L500.3400, L500.2500 #### [facility] [address] [place], [address] CO2 [Moles/Vol] 23.0 mmol/L Normal 21.0-32.0 [facility] Comment on above: Order Comment: 'TROP ' Serial specimen #1, #2 or #3: 1 Performed By: #### L 501.2450, L501.4020, L500.3400, L500.2500 #### [facility] [address] [place], [address] Creatinine [Mass/Vol] 1.19 mg/dL High 0.55-1.02 [facility] Comment on above: Order Comment: 'TROP ' Serial specimen #1, #2 or #3: 1 Result Comment: The validity of the calculated GFR GFRAA in patients over 70 years has not been determined. Clinical correlation is essential. Performed By: #### L 501.2450, L501.4020, L500.3400, L500.2500 #### [facility] [address] [place], [address] ECRCL 49.96 ml/min Normal [facility] Comment on above: Order Comment: 'TROP ' Serial specimen #1, #2 or #3: 1 Performed By: #### L 501.2450, L501.4020, L500.3400, L500.2500 #### [facility] [address] [place], [address] EST GFR - AA 59 mL/min Low >60 [facility] Comment on above: Order Comment: 'TROP ' Serial specimen #1, #2 or #3: 1 Result Comment: Afri can Indonesian GFR Calc Performed By: #### L 501.2450, L501.4020, L500.3400, L500.2500 #### [facility] [address] [place], [address] GAP 9 Normal 5-15 [facility] Comment on above: Order Comment: 'TROP ' Serial specimen #1, #2 or #3: 1 Performed By: #### L 501.2450, L501.4020, L500.3400, L500.2500 #### [facility] [address] [place], [address] GFR/1.73 sq M.predicted among non-blacks MDRD (S/P/Bld) [Vol rate/Area] 48 mL/min/{1.73_m2} Low >60 [facility] Comment on above: Order Comment: 'TROP ' Serial specimen #1, #2 or #3: 1 Result Comment: Non- GFR Calc Performed By: #### L 501.2450, L501.4020, L500.3400, L500.2500 #### [facility] [address] [place], [address] Glucose [Mass/Vol] 178 mg/dL High 74-106 [facility] Comment on above: Order Comment: 'TROP ' Serial specimen #1, #2 or #3: 1 Result Comment: Fast ing Glucose result greater than or equal to 126 mg/dL suggests DIABETES MELLITUS per A.D.A. criteria. Performed By: #### L 501.2450, L501.4020, L500.3400, L500.2500 #### [facility] [address] [place], [address] Potassium [Moles/Vol] 4.2 mmol/L Normal 3.5-5.1 [facility] Comment on above: Order Comment: 'TROP ' Serial specimen #1, #2 or #3: 1 Performed By: #### L 501.2450, L501.4020, L500.3400, L500.2500 #### [facility] [address] [place], [address] Sodium [Moles/Vol] 136 mmol/L Normal 136-145 [facility] Comment on above: Order Comment: 'TROP ' Serial specimen #1, #2 or #3: 1 Performed By: #### L 501.2450, L501.4020, L500.3400, L500.2500 #### [facility] [address] [place], [address] Urea nitrogen [Mass/Vol] 21 mg/dL High 7-18 [facility] Comment on above: Order Comment: 'TROP ' Serial specimen #1, #2 or #3: 1 Performed By: #### L 501.2450, L501.4020, L500.3400, L500.2500 #### [facility] [address] [place], [address] CBC W/Diff, Automatedon 09-1 6-2024 Absolute Lymph 1.03 X10 3/uL Normal 0.83-4.51 [facility] Comment on above: Performed By: #### L 100.0100, L300.8000 #### [facility] [address] [place], [address] Absolute Neut 5.3 X10 3/uL Normal 2.0-7.7 [facility] Comment on above: Performed By: #### L 100.0100, L300.8000 #### [facility] [address] [place], [address] Basophils/100 WBC (Bld) 0.3 % Normal 0-1 [facility] Comment on above: Performed By: #### L 100.0100, L300.8000 #### [facility] [address] [place], [address] Eosinophils/100 WBC (Bld) 0.9 % Normal 0-5 [facility] Comment on above: Performed By: #### L 100.0100, L300.8000 #### [facility] [address] [place], [address] Erythrocyte distribution width (RBC) [Ratio] 14.6 % Normal 11.6-14.6 [facility] Comment on above: Performed By: #### L 100.0100, L300.8000 #### [facility] [address] [place], [address] Hematocrit (Bld) [Volume fraction] 32.1 % Low 37-47 [facility] Comment on above: Performed By: #### L 100.0100, L300.8000 #### [facility] [address] [place], [address] Hemoglobin (Bld) [Mass/Vol] 9.6 g/dL Low 12.0-15.0 [facility] Comment on above: Performed By: #### L 100.0100, L300.8000 #### [facility] [address] [place], [address] IG% 0.400 Normal 0.0-0.9 [facility] Comment on above: Result Comment: IG% - Immature Granulocytes (promyelocytes, myelocytes and metamyelocytes) > 1% indicates that a LEFT SHIFT is Present. Performed By: #### L 100.0100, L300.8000 #### [facility] [address] [place], [address] Lymphocytes/100 WBC (Bld) 15.2 % Low 19-41 [facility] Comment on above: Performed By: #### L 100.0100, L300.8000 #### [facility] [address] [place], [address] MCH (RBC) [Entitic mass] 28.2 pg Normal 27.0-32.0 [facility] Comment on above: Performed By: #### L 100.0100, L300.8000 #### [facility] [address] [place], [address] MCHC (RBC) [Mass/Vol] 29.9 g/dL Low 32-36 [facility] Comment on above: Performed By: #### L 100.0100, L300.8000 #### [facility] [address] [place], [address] MCV (RBC) [Entitic vol] 94.1 fL Normal 81-99 [facility] Comment on above: Performed By: #### L 100.0100, L300.8000 #### [facility] [address] [place], [address] Monocytes/100 WBC (Bld) 4.4 % Normal 0-10 [facility] Comment on above: Performed By: #### L 100.0100, L300.8000 #### [facility] [address] [place], [address] Neutrophils/100 WBC (Bld) 78.8 % High 47-70 [facility] Comment on above: Performed By: #### L 100.0100, L300.8000 #### [facility] [address] [place], [address] Nucleated RBC (Bld) [#/Vol] 0 10*3/uL Normal 0-5 [facility] Comment on above: Performed By: #### L 100.0100, L300.8000 #### [facility] [address] [place], [address] Platelet mean volume (Bld) [Entitic vol] 9.8 fL Normal 6.2-12.0 [facility] Comment on above: Performed By: #### L 100.0100, L300.8000 #### [facility] [address] [place], [address] Platelets (Bld) [#/Vol] 199 10*3/uL Normal 150-450 [facility] Comment on above: Performed By: #### L 100.0100, L300.8000 #### [facility] [address] [place], [address] RBC (Bld) [#/Vol] 3.41 10*6/uL Low 4.2-5.4 [facility] Comment on above: Performed By: #### L 100.0100, L300.8000 #### [facility] [address] [place], [address] RDW SD 50.1 fl High 35.1-43.9 [facility] Comment on above: Performed By: #### L 100.0100, L300.8000 #### [facility] [address] [place], [address] WBC (Bld) [#/Vol] 6.8 10*3/uL Normal 4.4-11.0 [facility] Comment on above: Performed By: #### L 100.0100, L300.8000 #### [facility] [address] [place], [place], [address] Chest PA and Lateralon 11-19 Chest PA and Lateral [facility] Imaging Services [address] [place] [address] Chest PA and Lateral MR#: [id number] Acct: [id number] Name: GUTIERREZ HOBSON Rep #: [id number] : 1960 F 63 From: Arvind Keys MD PCP: Dr. Tiff Pearson MD Status: REG ER Study: Chest PA and Lateral Date of Exam: 11/20/23 Exam# [id number] Ordering Dr: Cynthia Schwarz DO [id number] STUDY: X-RAY CHEST REASON FOR EXAM: Female, 63 years old. chest pain TECHNIQUE: PA and lateral COMPARISON: April 08, 2023 FINDINGS: Minor reticulonodular interstitial thickening in the right lower lobe. Lungs are clear of infiltration. There is no demonstrated pleural abnormality. Normal size heart. Normal mediastinum and erick. Normal visualized pulmonary arteries. Normal visualized aortic arch and descending thoracic aorta. Normal visualized thoracic spine. Normal visualized ribs, clavicles, and shoulders. There is no demonstrated abnormality of the visualized soft tissue structures of the upper abdomen. No significant change since prior exam RAD/Chest PA and Lateral IMPRESSION: No acute cardiac pulmonary pathology Electronically Signed: Arvind Keys MD at 18:10 EDT , CC: Dr. Cynthia Schwarz DO; Dr. 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 Performed By: #### L 100.0100, L300.8000 #### [facility] Laboratory [address] [place], [address] Emergency Department Summary on 11-20-2023 Emergency Department Summary [facility] Medical Records Department [address] [place] [address] Emergency Department Summary 11/20/23 MR#: [id number] Acct: [id number] Name: GUTIERREZ HOBSON Rep #: [id number] : 1960 63 From: Cynthia Schwarz DO PCP: Dr. Tiff Pearson MD Status:DEP ER Location: ED HPI History of Present Illness Chief Complaint: Chest Pain Informant: patient and spouse/S.O. Narrative Narrative: Patient is a 63-year-old female with history of type 1 diabetes mellitus, hypertension, hyperlipidemia, GERD, anxiety, depression, schizophrenia, multiple personality disorder history of pacemaker and prior colon cancer with resection and colostomy presenting with chest pain and insomnia. Patient states that her chest has been killing her for about 24 hours. Its under her left breast. She thinks it is her pacemaker. She states she has a tiny bullet shaped pacemaker in that area. She states it is a new type from [facility]. She tells me its [employer] and she actually had it interrogated today and they said everything was normal with its function. She states this pain has been constant since Monday (2 days ago) and denies any radiation. She describes it as sharp pressure and achy. She knows she has pain when she takes a deep breath. Does not have any change in her symptoms with movement. Denies any swelling of her legs. Denies any difficulty breathing. No she has had a cough for the past month and a half is been productive of some phlegm. Denies associate abdominal pain, nausea, vomiting or change in her colostomy output. Denies a history of DVT or PE. Does have a history of asthma and COPD but denies any acute respiratory symptoms at this time. Tried taking ibuprofen for her symptoms with no relief. Patient also tells me that she has been doing with insomnia and she has not slept in the past 7 to 8 months. She states she does not sleep at all. She is on Belsomra and that was recently increased to 2 pills at night with no help. She states that she is been on multiple indications for her sleep with no improvement. She states she is sleeping 0 hours a night. She states that she has seen a sleep doctor, primary care doctor and a psychiatrist and they cannot figure it out. No other complaints or concerns reported. No acute change in the symptoms today. wonders if her not sleeping is causing her increased stress which is causing her chest pain today. Patient notes about 6 months ago she was seen for similar episode of chest pain. She states she got a medicine that dissolves under her tongue and did help some. She is not sure what it was. [facility] Medical History Schizophrenia Anxiety Depression Diabetes Former smoker Migraines Secondary pulmonary arterial hypertension Bradycardia Paranoid schizophrenia COPD (chronic obstructive pulmonary disease) Asthma Tracheitis Anxiety and depression GERD (gastroesophageal reflux disease) Colon cancer Obesity (BMI 30.0-34.9) Type I diabetes mellitus Hyperlipidemia Hypertension Home Medications ???Medication ???Instructions ???Recorded ???Last Taken ???Type topiramate 100 mg tablet 100 mg PO BID 03/01/17 12/06/18 09:00 History hydrocortisone 2.5 % topical cream 1 applic topical DAILY 30 days ##30 10/31/17 Unknown History insulin glargine 100 unit/mL (3 12 unit subcut QHS PRN 10/31/17 Unknown History mL) subcutaneous pen (Lantus hyperglycemia Solostar U-100 Insulin) glimepiride 4 mg tablet 4 mg PO DAILY 30 days ##30 11/01/17 Unknown History melatonin 5 mg-pyridoxine (vitamin 2 ea PO QHS 11/28/17 Unknown History B6) 1 mg tablet (Melatonin (with B6)) omeprazole 20 mg capsule,delayed 20 mg PO DAILY 12/04/17 12/06/18 09:00 History release cariprazine 3 mg capsule 3 mg PO QHS mental status 12/04/18 Unknown History fluphenazine HCl 1 mg tablet 1 mg PO QHS 12/04/18 Unknown History guaifenesin 600 mg tablet, 600 mg PO TID 12/04/18 12/06/18 09:00 History extended release 12 hr pravastatin 40 mg tablet 40 mg PO DAILY 12/04/18 Unknown History tapentadol 75 mg tablet 75 mg PO TID pain 12/04/18 12/06/18 09:00 History magnesium oxide 400 mg (241.3 mg 400 mg PO DAILY 04/16/19 Unknown History magnesium) tablet hydrocortisone 2.5 % topical cream 1 applic TN QHS PRN hemorrhoids 05/17/21 Unknown Rx with perineal applicator #30 grams hyoscyamine sulfate 0.125 mg 0.25 mg (2 x 0.125 mg) PO Q6H PRN 04/08/23 Unknown Rx sublingual tablet epigastric discomfort #12 tabs trazodone 50 mg tablet 50 mg PO QHS PRN sleep #10 tabs 11/05/23 Unknown Rx hyoscyamine sulfate 0.125 mg 0.125 mg sublingual Q8H PRN 11/20/23 Unknown Rx sublingual tablet (Levsin/SL) dyspepsia #20 tabs suvorexant 10 mg tablet (Belsomra) 20 mg PO DAILY 11/20/23 Unknown History valbenazine 80 m (more content not included)... Normal [facility] L501.4020on 11-20-2023 TROPONIN-I HS 7 pg/mL Normal 3.0-54.0 [facility] Comment on above: Order Comment: 'TROP ' Serial specimen #1, #2 or #3: 1 Result Comment: Jarrett moses Note: New Test Units and Gender Specific Reference Ranges. For more information see Policy Stat Procedure [place] High Sensitivity Troponin (TNIH) and attachments. Performed By: #### L 501.2450, L501.4020, L500.3400, L500.2500 #### [facility] [address] [place], [address] Lipaseon 11-20-2023 Lipase [Catalytic activity/Vol] 25 U/L Normal 13-75 [facility] Comment on above: Order Comment: 'TROP ' Serial specimen #1, #2 or #3: 1 Result Comment: Jarrett moses note: LIPASE revised reference range effective 22. New Lipase methodology. Expected to produce lower values than the previous assay method. NEW Reference Range: 13 - 75 U/L Performed By: #### L 501.2450, L501.4020, L500.3400, L500.2500 #### [facility] [address] [place], [address] Liver Profileon 11-20-2023 Albumin [Mass/Vol] 3.0 g/dL Low 3.2-5.0 [facility] Comment on above: Order Comment: 'TROP ' Serial specimen #1, #2 or #3: 1 Performed By: #### L 501.2450, L501.4020, L500.3400, L500.2500 #### [facility] [address] [place], [address] ALK P 64 U/L Normal 45-117 [facility] Comment on above: Order Comment: 'TROP ' Serial specimen #1, #2 or #3: 1 Performed By: #### L 501.2450, L501.4020, L500.3400, L500.2500 #### [facility] [address] [place], [address] ALT [Catalytic activity/Vol] 18 U/L Normal 13-56 [facility] Comment on above: Order Comment: 'TROP ' Serial specimen #1, #2 or #3: 1 Performed By: #### L 501.2450, L501.4020, L500.3400, L500.2500 #### [facility] [address] [place], [address] AST [Catalytic activity/Vol] 13 U/L Low 15-37 [facility] Comment on above: Order Comment: 'TROP ' Serial specimen #1, #2 or #3: 1 Performed By: #### L 501.2450, L501.4020, L500.3400, L500.2500 #### [facility] [address] [place], [address] Bilirubin [Mass/Vol] 0.40 mg/dL Normal 0.20-1.00 [facility] Comment on above: Order Comment: 'TROP ' Serial specimen #1, #2 or #3: 1 Result Comment: For patients on eltrombopag therapy, use of Dimension [place] TBIL is not recommended. Performed By: #### L 501.2450, L501.4020, L500.3400, L500.2500 #### [facility] [address] [place], [address] Bilirubin.direct [Mass/Vol] 0.14 mg/dL Normal 0.00-0.30 [facility] Comment on above: Order Comment: 'TROP ' Serial specimen #1, #2 or #3: 1 Performed By: #### L 501.2450, L501.4020, L500.3400, L500.2500 #### [facility] [address] [place], [address] Globulin (S) [Mass/Vol] 3.8 g/dL Normal 2.2-4.2 [facility] Comment on above: Order Comment: 'TROP ' Serial specimen #1, #2 or #3: 1 Performed By: #### L 501.2450, L501.4020, L500.3400, L500.2500 #### [facility] [address] [place], [address] T PROT 6.8 g/dL Normal 6.4-8.2 [facility] Comment on above: Order Comment: 'TROP ' Serial specimen #1, #2 or #3: 1 Performed By: #### L 501.2450, L501.4020, L500.3400, L500.2500 #### [facility] [address] [place], [address] Emergency Department Summary on 11-05-2023 Emergency Department Summary [facility] Medical Records Department [address] [place] [address] Emergency Department Summary 11/05/23 MR#: [id number] Acct: [id number] Name: GUTIERREZ HOBSON Rep #: [id number] : 1960 63 From: Vlad Fischer PCP: Dr. Tiff Pearson MD Status:PRE ER Location: ED HPI History of Present Illness Chief Complaint: Other, Pain/Inj Informant: patient and spouse/S.O. Narrative Narrative: Presents here with spouse for evaluation. Reports unable to sleep for 8 months now. History of schizophrenia, bipolar, depression, multiple personality disorder. She states most recently 2 weeks ago taken off Ambien stating it was not working well. She states she is started on Cymbalta 10 mg of taking for at least 2 weeks. This was changed by the [facility]. Previously her psychiatrist had had her on Seroquel and trazodone she states those medications were not working either. She states she tried CBD oil help for 1 night. She currently on melatonin reporting taking 2, 10 mg tablets each night. States still not helping. She denies any suicidal homicidal ideations. Prior similar symptoms: Yes PFSH PFSH Medical History Schizophrenia Anxiety Depression Diabetes Former smoker Migraines Secondary pulmonary arterial hypertension Bradycardia Paranoid schizophrenia COPD (chronic obstructive pulmonary disease) Asthma Tracheitis Anxiety and depression GERD (gastroesophageal reflux disease) Colon cancer Obesity (BMI 30.0-34.9) Type I diabetes mellitus Hyperlipidemia Hypertension Home Medications ???Medication ???Instructions ???Recorded ???Last Taken ???Type topiramate 100 mg tablet 100 mg PO BID 03/01/17 12/06/18 09:00 History hydrocortisone 2.5 % topical cream 1 applic topical DAILY 30 days ##30 10/31/17 Unknown History insulin glargine 100 unit/mL (3 12 unit subcut QHS PRN 10/31/17 Unknown History mL) subcutaneous pen (Lantus hyperglycemia Solostar U-100 Insulin) thiothixene 2 mg capsule 2 mg PO DAILY 30 days ##30 10/31/17 12/04/17 05:30 History glimepiride 4 mg tablet 4 mg PO DAILY 30 days ##30 11/01/17 Unknown History amitriptyline 25 mg tablet 25 mg PO QHS 11/28/17 Unknown History melatonin 5 mg-pyridoxine (vitamin 2 ea PO QHS 11/28/17 Unknown History B6) 1 mg tablet (Melatonin (with B6)) omeprazole 20 mg capsule,delayed 20 mg PO DAILY 12/04/17 12/06/18 09:00 History release cariprazine 3 mg capsule 3 mg PO QHS mental status 12/04/18 Unknown History fluphenazine HCl 1 mg tablet 1 mg PO QHS 12/04/18 Unknown History guaifenesin 600 mg tablet, 600 mg PO TID 12/04/18 12/06/18 09:00 History extended release 12 hr pravastatin 40 mg tablet 40 mg PO DAILY 12/04/18 Unknown History tapentadol 75 mg tablet 75 mg PO TID pain 12/04/18 12/06/18 09:00 History magnesium oxide 400 mg (241.3 mg 400 mg PO DAILY 04/16/19 Unknown History magnesium) tablet hydrocortisone 2.5 % topical cream 1 applic TN QHS PRN hemorrhoids 05/17/21 Unknown Rx with perineal applicator #30 grams hyoscyamine sulfate 0.125 mg 0.25 mg (2 x 0.125 mg) PO Q6H PRN 04/08/23 Unknown Rx sublingual tablet epigastric discomfort #12 tabs trazodone 50 mg tablet 50 mg PO QHS PRN sleep #10 tabs 11/05/23 Unknown Rx Allergy/AdvReac Type Severity Reaction Status Date / Time azithromycin Allergy Rash Verified 11/05/23 05:24 Cephalosporins Allergy Rash Verified 11/05/23 05:24 goss (cherries) Allergy Angioedema Verified 11/05/23 05:24 codeine Allergy Rash Verified 11/05/23 05:24 diclofenac (Diclofenac) Allergy Rash Verified 11/05/23 05:24 hydrocodone bitartrate (From Allergy Rash Verified 11/05/23 05:24 Vicodin) hydromorphone HCl (From Allergy Rash Verified 11/05/23 05:24 Dilaudid) lemon Allergy Angioedema Verified 11/05/23 05:24 Penicillins Allergy Anaphylaxis Verified 11/05/23 05:24 Sulfa (Sulfonamide Allergy Rash Verified 11/05/23 05:24 Antibiotics) pear AdvReac NEEDS Verified 11/05/23 05:24 FOLLOW-UP soap AdvReac NEEDS Verified 11/05/23 05:24 FOLLOW-UP Family History Father Heart disease Other Thyroid disorder Surgical History History of partial colectomy History of appendectomy Presence of cardiac pacemaker (09/28/16) History of colectomy Tracheostomy in place Colostomy in place Social History household members: spouse Smoking Status: Former smoker quit date: 08/27/10 pack-years: 45 substance use type: does not use and marijuana ROS ROS ED Constitutional Constitutional ED: Denies chills, fever(s) or sweats Eyes Eyes: Denies change in vision ENT ENT ED: Denies dysphagia or sore throat C (more content not included)... Normal [facility] CNOVon 05-04-2023 CNOV Office Visit (SPAGWO ) -------- GUTIERREZ HOBSON ([id number]) 1960 F T Date Time Provider Department 05/04/23 2:30 PM FERNANDA ROSENBAUM During your visit today, we recorded the following information about you: Pulse Respiration 68/minute 18/minute Wali Mitchell LPN 05/04/2023 4:43 PM Signed Review of Systems Constitutional: Positive for activity change and chills. Negative for unexpected weight change. Gastrointestinal: Negative for bowel retention or incontinence Genitourinary: Negative for difficulty urinating. Negative for bladder retention or incontinence Musculoskeletal: Positive for arthralgias, back pain, gait problem, joint swelling, myalgias, neck pain and neck stiffness. Neurological: Positive for weakness and headaches. Negative for numbness. Psychiatric/Behavioral: Positive for dysphoric mood and sleep disturbance. Negative for suicidal ideas. The patient is nervous/anxious. Fernanda Rosenbaum APRN.CNP 05/04/2023 4:43 PM Signed [facility] Today's Date: 05/04/2023 Name: Gutierrez Hobson : 1960 Purpose: New Patient Consultation Chief complaint: fibromyalgia Referring Clinician: Self Pertinent Past Medical History: DM 2, HLD, pacemaker, COPD, ileostomy,colon polyps Pertinent Past Surgeries: multiple bowel surgeries History of Present Illness (HPI): 05/04/2023 - Initial HPI (Obtained by Fernanda Rosenbaum CNP). DURATION AND ONSET: The pain complaint has been present for approximately >20. The pain had a gradual onset. The mechanism of injury is unknown. RED FLAG SYMPTOMS: ever having cancer (colon). PAIN DESCRIPTION: Timing: Constant Character: Aching, Burning, Stabbing Primary Location: entire body Radiation: none Exacerbating factors: Everything Relieving factors: Medications Interferes with: physical activity, cooking, household cleaning, and reaching for shelves This appointment started out with the explaining that his is in constant pain. He stated the patient has been taking Nucynta for years to manage her pain. States she was seeing another pain management doctor he was giving it to her until recently when she was kicked out. States that she was discharged for having methamphetamines heroin and LSD in her system. Patient states she did go get her blood tested and urine tested at 2 other clinics and she came back clean but the doctor would not reconsider his discharge. Patient's pain was not discussed until after the opioid discussion was had. Patient states her pain is from fibromyalgia that her pain is an aching in the entire body. She has not been to physical therapy in years. Patient has not been on Lyrica before has been on gabapentin but had a negative reaction. Patient is not currently on a muscle relaxer. There are no recent x-rays of her spine. Patient states she does not want to do injections if they do not help with her pain. Patient is here to see if this practice will start opioid therapy. Current Pain Medications: Neuropathics: NSAIDS: Muscle Relaxants: Topicals: Lidocaine cream. Other Prescription or OTC Pain Medications: Opioids (when applicable): nucynta Greenlight Questionnaire GREENLIGHT Completed Date 05/04/2023 Opioid Risk Tool Opiod Risk Tool Date Completed 05/04/2023 Comments High Risk 10 THOMAS-7 Anxiety Score 0 Completed Date 05/04/2023 PHQ9P Score 0 Completed Date 05/04/2023 Anti-depressants or Mood-Stabilizers: None Anti-Coagulants: None Therapies Attended (Current or Most Recent): No Current Therapies Treatment History: PAIN PROCEDURES: DATE PROCEDURE IMPROVEMENT To date, no interventional pain management procedures performed at this practice. MEDICATIONS Taken TO DATE (for the chief complaint(s)): Neuropathics: Neurontin (Gabapentin) no relief NSAIDS: Voltaren (Diclofenac)No relief Muscle Relaxants: None Topicals: Lidocaine (Gel, Cream or Ointment) No relief Other Prescription or OTC Pain Medications: None Opioids:Nucynta, takes the edge off. Data Reviewed Today: Allergies: ALLERGIES Allergen Reactions Goss Other: See Comments [...] Sulfa (Sulfonamide * Rash Vicodin [Hydrocodon* Rash Zithrom (more content not included)... Normal [facility] CNPNon 05-02-2023 CNPN Telephone (AGSPINE3) -------- GUTIERREZ HOBSON ([id number]) 1960 F CHT Date Time Provider Department 05/02/23 PREBISHFERNANDA AGSPINE3 During your visit today, we recorded the following information about you: Rose Graff 05/02/2023 8:06 AM Signed Patient left a voicemail that she had received a missed call from our office. I have attempted to contact this patient by phone, Left brief message on home voicemail stating that this was just a reminder call for her upcoming appointment on in [place] with Rose Graff Allergies As of Date: 05/02/2023 Noted Allergy Reaction GOSS 08/01/2021 14 - [...] Anaphylaxis Comments: ?anaphylaxis, patient tolerates zosyn PERCOCET (OXYCODONE-ACETAMINOPHEN )08/13/2004 9 - Itching SOAP 05/30/2006 SULFA (SULFONAMIDE ANTIBIOTICS) 12/04/2018 2 - Rash VICODIN (HYDROCODONE-ACETAMINOPH E*05/21/2009 2 - Rash ZITHROMAX (AZITHROMYCIN) 03/24/2016 2 - Rash Date Reviewed: 04/21/2023 Reviewed by: Chelsea Macias LPN - Fully Assessed Reason for Visit: Returning Patient's Call [408] Prescriptions as of 05/02/2023 - tapentadol (NUCYNTA) 75 mg tab Take 1 tablet by mouth three times a day for 14 days. - fluticasone-salmeterol (ADVAIR DISKUS) 100-50 mcg/dose inhaler Inhale 1 Puff as instructed two times a day. Rinse mouth out after use with water. - hyoscyamine sublingual (LEVSIN SL) 0.125 mg Dissolve 1 tablet under the tongue every 6 hours as needed (epigastric discomfort). - magnesium oxide (MAG-OX) 400 mg (241.3 mg magnesium) tablet Take 1 tablet by mouth once daily. - hydrocortisone 2.5 % cream Apply 1 application to affected area two times a day as needed. Location: neck (reaction to tape adhesive) May also use for poison tania. Use up to 14 days per episode of rash. - nystatin (MYCOSTATIN) powder Apply 1 application to affected area four times a day as needed. - lidocaine (LMX) 4 % cream Apply to affected area four times a day as needed (for painful sore in rectal area as directed). - melatonin 10 mg tab Take 1 tablet by mouth at bedtime as needed for insomnia. - pravastatin (PRAVACHOL) 40 mg tablet Take 1 tablet by mouth once daily. - Ostomy Supplies [facility] 1. Convatec Flanges Ref# [id number] 10 to a box, 3 boxes 2. [employer] Protective Barrier Wipes Ref # [id number] 1 box = 50 wipes, 3 boxes 3. Convatec Adhesive Glue Ref # [id number] 2 oz tube, 3 tubes 4. Convatec Stoma Adhesive Powder Ref # [id number] 1 oz bottle, 3 bottles 5. Convatec Stoma Bags Ref # [id number] 10 in a box, 3 boxes - benzonatate (TESSALON PERLE) 100 mg capsule Take 2 capsules by mouth three times a day as needed. - omeprazole (PRILOSEC) 20 mg capsule TAKE ONE CAPSULE BY MOUTH EVERY DAY 30 MINUTES BEFORE breakfast - gabapentin (NEURONTIN) 300 mg capsule - blood sugar diagnostic (BLOOD GLUCOSE TEST) test strip Test blood sugar(s) 4 times daily and as needed as directed. Dx: Type 2 DM - Uncontrolled Insulin: Yes - ketoconazole (NIZORAL) 2 % cream Apply 1 application to affected area once daily. as needed - triamcinolone acetonide (KENALOG) 0.1 % cream Apply 1 application to affected area three times daily. Apply sparingly to area for rash/itching till rash resolves. For contact dermatitis - Lancets lancets Test blood sugar(s) 1 times daily and as needed. Dx: Type 2 DM - Uncontrolled Insulin: Yes - alcohol swabs (SURE-PREP ALCHOLOL PREP PADS) Test blood sugars 4 x's daily. Dx: Insulin: Yes - insulin glargine (LANTUS SOLOSTAR U-100 INSULIN) 100 unit/mL (3 mL) Inject 18 Units subcutaneously daily at bedtime AND 2 Units daily at bedtime. Adjust as directed (2 units to prime pen needle. - miconazole (CADENCE ANTIFUNGAL) 2 % cream Apply 1 application to affected area twice daily. To perirectal and buttocks area - clotrimazole (LOTRIMIN) 1 % cream Apply to affected area twice daily. - guaiFENesin (MUCINEX) 600 mg 12 hr tablet Take 2 tablets by mouth twice daily. - INGREZZA 80 mg capsule Take 1 tablet by mouth once daily. - glimepiride (AMARYL) 4 mg tablet Take 1 tablet by mouth daily with breakfast. Patient may take an extra half pill once a day for blood sugars over 200. - diclofenac (VOLTAREN ARTHRITIS PAIN) 1 % topical g (more content not included)... [facility]) -------- GUTIERREZ HOBSON ([id number]) 1960 F [facility] Date Time Provider Department 04/27[facility]23 [facility] During your visit today, we recorded the following information about you: Prerna Saleh 04/27/2023 11:54 AM Signed ----- Message from Rodger Dunham sent at 04/27/2023 11:13 AM EST ----- Regarding: Spine and Pain / Govea / Sooner Appointment Subject Line Format: Medicine / [Provider Name] / [Issue] Patient: Gutierrez Hobson Date of : 1960 Primary Care Provider: Tiff Pearson MD Patient has been identified by name and Date of (Y/N): Y Patient: Gutierrez Hobson Date of : 1960 Provider for this encounter: Dhruv Govea MD Reason for the call/escalation: Patient couldn't make it to her appointment because she was sick on 04/27/23. Patient doesn't want to sign up for a My Chart for the waitlist and would like to speak with the office about getting in any sooner at the [place] office. Please reach out to patient for assistance. Was Patient Referred to [facility]/Seek Emergency Treatment (Y/N): N Did Patient Agree (Y/N): N/A Was An Attempt Made To Transfer The Patient To The Office (Y/N): N Were You Able To Reach Someone At The Office (Y/N): N/A If Yes - Patient Was Transferred To (Caregivers Name): N/A If No - Which [facility] Leadership Hired Hand Did You Speak With Regarding This Patient: N/A Was an appointment scheduled (Y/N): N Reason patient was requesting visit (RFV/signs and symptoms/diagnosis) : Back and Neck Pain Person calling if other than patient: Self Return call to if other than patient: Self Best contact number: [phone] Thank you, Rodger Dunham April 27, 2023 11:13 AM Gretta Alcaraz 04/27/2023 12:54 PM Signed LVM for patient to return call to reschedule Rose Wynn 04/27/2023 2:57 PM Signed Patient's has called in and left a voicemail because they had received a missed call from our office. I have returned this call and offered to move this patient up to 05/04/23 with Fernanda in [place]. Patient stated what is she supposed to do about her medication. I stated that there is no guarantee that we will prescribe medications that we do mostly injection based pain management. Patient stated that they won't do the injections and are only looking for medications. Patient did agree to take the appointment with Fernanda. Patient also asked if we had received her records from her other pain management. I did look but it does not look like we have received them. Rose Graff Allergies As of Date: 04/27/2023 Noted Allergy Reaction GOSS 08/01/2021 14 - [...] Anaphylaxis Comments: ?anaphylaxis, patient tolerates zosyn PERCOCET (OXYCODONE-ACETAMINOPHEN )08/13/2004 9 - Itching SOAP 05/30/2006 SULFA (SULFONAMIDE ANTIBIOTICS) 12/04/2018 2 - Rash VICODIN (HYDROCODONE-ACETAMINOPH E*05/21/2009 2 - Rash ZITHROMAX (AZITHROMYCIN) 03/24/2016 2 - Rash Date Reviewed: 04/21/2023 Reviewed by: Chelsea Macias LPN - Fully Assessed Reason for Visit: Patient Question [[id number]] Prescriptions as of 04/27/2023 - fluticasone-salmeterol (ADVAIR DISKUS) 100-50 mcg/dose inhaler Inhale 1 Puff as instructed two times a day. Rinse mouth out after use with water. - tapentadol (NUCYNTA) 75 mg tab Take 1 tablet by mouth three times a day for 14 days. - hyoscyamine sublingual (LEVSIN SL) 0.125 mg Dissolve 1 tablet under the tongue every 6 hours as needed (epigastric discomfort). - magnesium oxide (MAG-OX) 400 mg (241.3 mg magnesium) tablet Take 1 tablet by mouth once daily. - hydrocortisone 2.5 % cream Apply 1 application to affected area two times a day as needed. Location: neck (reaction to tape adhesive) May also use for poison tania. Use up to 14 days per episode of rash. - nystatin (MYCOSTATIN) powder Apply 1 application to affected area four times a day as needed. - lidocaine (LMX) 4 % cream Apply to affected area four times a day as needed (for painful sore in rectal area as directed). - melatonin 10 mg tab Take 1 tablet by mouth at bedtime as needed for insomnia. - pravastat (more content not included)... Normal [facility] CNPN Telephone (AGSPINE3) -------- GUTIERREZ HOBSON ([id number]) 1960 F [facility] Date Time Provider Department 04/27/23 [facility] During your visit today, we recorded the following information about you: Ileana Medeiros LPN 04/27/2023 11:06 AM Signed This nurse returned the voicemail for this patient. They did not leave any reason for their call, I noticed that we attempted to call them yesterday as a reminder for today's appointment. When I called the patient it was 10:55 and their appointment was for 11:00 for a new patient. I tried to contact the [place] office to see if we should just re-schedule was not able to locate a phone number. Sent a message through [employer] to inform them that the patient was on their way. Ileana Medeiros LPN Allergies As of Date: 04/27/2023 Noted Allergy Reaction GOSS 08/01/2021 14 - [...] Anaphylaxis Comments: ?anaphylaxis, patient tolerates zosyn PERCOCET (OXYCODONE-ACETAMINOPHEN )08/13/2004 9 - Itching SOAP 05/30/2006 SULFA (SULFONAMIDE ANTIBIOTICS) 12/04/2018 2 - Rash VICODIN (HYDROCODONE-ACETAMINOPH E*05/21/2009 2 - Rash ZITHROMAX (AZITHROMYCIN) 03/24/2016 2 - Rash Date Reviewed: 04/21/2023 Reviewed by: Chelsea Macias LPN - Fully Assessed Reason for Visit: Returning Patient's Call [408] Prescriptions as of 04/27/2023 - fluticasone-salmeterol (ADVAIR DISKUS) 100-50 mcg/dose inhaler Inhale 1 Puff as instructed two times a day. Rinse mouth out after use with water. - tapentadol (NUCYNTA) 75 mg tab Take 1 tablet by mouth three times a day for 14 days. - hyoscyamine sublingual (LEVSIN SL) 0.125 mg Dissolve 1 tablet under the tongue every 6 hours as needed (epigastric discomfort). - magnesium oxide (MAG-OX) 400 mg (241.3 mg magnesium) tablet Take 1 tablet by mouth once daily. - hydrocortisone 2.5 % cream Apply 1 application to affected area two times a day as needed. Location: neck (reaction to tape adhesive) May also use for poison tania. Use up to 14 days per episode of rash. - nystatin (MYCOSTATIN) powder Apply 1 application to affected area four times a day as needed. - lidocaine (LMX) 4 % cream Apply to affected area four times a day as needed (for painful sore in rectal area as directed). - melatonin 10 mg tab Take 1 tablet by mouth at bedtime as needed for insomnia. - pravastatin (PRAVACHOL) 40 mg tablet Take 1 tablet by mouth once daily. - Ostomy Supplies [facility] 1. Convatec Flanges Ref# [id number] 10 to a box, 3 boxes 2. [employer] Protective Barrier Wipes Ref # [id number] 1 box = 50 wipes, 3 boxes 3. Convatec Adhesive Glue Ref # [id number] 2 oz tube, 3 tubes 4. Convatec Stoma Adhesive Powder Ref # [id number] 1 oz bottle, 3 bottles 5. Convatec Stoma Bags Ref # [id number] 10 in a box, 3 boxes - benzonatate (TESSALON PERLE) 100 mg capsule Take 2 capsules by mouth three times a day as needed. - omeprazole (PRILOSEC) 20 mg capsule TAKE ONE CAPSULE BY MOUTH EVERY DAY 30 MINUTES BEFORE breakfast - gabapentin (NEURONTIN) 300 mg capsule - blood sugar diagnostic (BLOOD GLUCOSE TEST) test strip Test blood sugar(s) 4 times daily and as needed as directed. Dx: Type 2 DM - Uncontrolled Insulin: Yes - ketoconazole (NIZORAL) 2 % cream Apply 1 application to affected area once daily. as needed - triamcinolone acetonide (KENALOG) 0.1 % cream Apply 1 application to affected area three times daily. Apply sparingly to area for rash/itching till rash resolves. For contact dermatitis - Lancets lancets Test blood sugar(s) 1 times daily and as needed. Dx: Type 2 DM - Uncontrolled Insulin: Yes - alcohol swabs (SURE-PREP ALCHOLOL PREP PADS) Test blood sugars 4 x's daily. Dx: . Insulin: Yes - insulin glargine (LANTUS SOLOSTAR U-100 INSULIN) 100 unit/mL (3 mL) Inject 18 Units subcutaneously daily at bedtime AND 2 Units daily at bedtime. Adjust as directed (2 units to prime pen needle. - miconazole (CADENCE ANTIFUNGAL) 2 % cream Apply 1 application to affected area twice daily. To perirectal and buttocks area - clotrimazole (LOTRIMIN) 1 % cream Apply to affected area twice daily. - guaiFENesin (MUCINEX) 600 mg 12 hr tablet Take 2 tablets by mouth twice daily. - INGREZZA 80 mg capsule Take 1 tablet by mouth once daily. (more content not included)... Normal [facility] -------- GUTIERREZ HOBSON ([id number]) 1960 F T Date Time Provider Department 04/25/23 DHRUV GOVEA AGSPINE3 During your visit today, we recorded the following information about you: Rose Graff 04/25/2023 8:26 AM Signed Patient left a voicemail that she had received a missed call from our office. I have attempted to contact this patient by phone, Left brief message on home voicemail stating that this was just a reminder call for her upcoming appointment on in [place] with Dr. Govea. Rose Graff Allergies As of Date: 04/25/2023 Noted Allergy Reaction GOSS 08/01/2021 14 - [...] Anaphylaxis Comments: ?anaphylaxis, patient tolerates zosyn PERCOCET (OXYCODONE-ACETAMINOPHEN )08/13/2004 9 - Itching SOAP 05/30/2006 SULFA (SULFONAMIDE ANTIBIOTICS) 12/04/2018 2 - Rash VICODIN (HYDROCODONE-ACETAMINOPH E*05/21/2009 2 - Rash ZITHROMAX (AZITHROMYCIN) 03/24/2016 2 - Rash Date Reviewed: 04/21/2023 Reviewed by: Chelsea Macias LPN - Fully Assessed Reason for Visit: Returning Patient's Call [408] Prescriptions as of 04/25/2023 - tapentadol (NUCYNTA) 75 mg tab Take 1 tablet by mouth three times a day for 14 days. - hyoscyamine sublingual (LEVSIN SL) 0.125 mg Dissolve 1 tablet under the tongue every 6 hours as needed (epigastric discomfort). - magnesium oxide (MAG-OX) 400 mg (241.3 mg magnesium) tablet Take 1 tablet by mouth once daily. - hydrocortisone 2.5 % cream Apply 1 application to affected area two times a day as needed. Location: neck (reaction to tape adhesive) May also use for poison tania. Use up to 14 days per episode of rash. - nystatin (MYCOSTATIN) powder Apply 1 application to affected area four times a day as needed. - lidocaine (LMX) 4 % cream Apply to affected area four times a day as needed (for painful sore in rectal area as directed). - melatonin 10 mg tab Take 1 tablet by mouth at bedtime as needed for insomnia. - pravastatin (PRAVACHOL) 40 mg tablet Take 1 tablet by mouth once daily. - Ostomy Supplies misc 1. Convatec Flanges Ref# [id number] 10 to a box, 3 boxes 2. [employer] Protective Barrier Wipes Ref # [id number] 1 box = 50 wipes, 3 boxes 3. Convatec Adhesive Glue Ref # [id number] 2 oz tube, 3 tubes 4. Convatec Stoma Adhesive Powder Ref # [id number] 1 oz bottle, 3 bottles 5. Convatec Stoma Bags Ref # [id number] 10 in a box, 3 boxes - benzonatate (TESSALON PERLE) 100 mg capsule Take 2 capsules by mouth three times a day as needed. - fluticasone-salmeterol (ADVAIR DISKUS) 100-50 mcg/dose inhaler Inhale 1 Puff as instructed two times a day. Rinse mouth out after use with water. - omeprazole (PRILOSEC) 20 mg capsule TAKE ONE CAPSULE BY MOUTH EVERY DAY 30 MINUTES BEFORE breakfast - gabapentin (NEURONTIN) 300 mg capsule - blood sugar diagnostic (BLOOD GLUCOSE TEST) test strip Test blood sugar(s) 4 times daily and as needed as directed. Dx: Type 2 DM - Uncontrolled E11.65 Insulin: Yes - ketoconazole (NIZORAL) 2 % cream Apply 1 application to affected area once daily. as needed - triamcinolone acetonide (KENALOG) 0.1 % cream Apply 1 application to affected area three times daily. Apply sparingly to area for rash/itching till rash resolves. For contact dermatitis - Lancets lancets Test blood sugar(s) 1 times daily and as needed. Dx: Type 2 DM - Uncontrolled E11.65 Insulin: Yes - alcohol swabs (SURE-PREP ALCHOLOL PREP PADS) Test blood sugars 4 x's daily. Dx: E11.65 Insulin: Yes - insulin glargine (LANTUS SOLOSTAR U-100 INSULIN) 100 unit/mL (3 mL) Inject 18 Units subcutaneously daily at bedtime AND 2 Units daily at bedtime. Adjust as directed (2 units to prime pen needle. - miconazole (CADENCE ANTIFUNGAL) 2 % cream Apply 1 application to affected area twice daily. To perirectal and buttocks area - clotrimazole (LOTRIMIN) 1 % cream Apply to affected area twice daily. - guaiFENesin (MUCINEX) 600 mg 12 hr tablet Take 2 tablets by mouth twice daily. - INGREZZA 80 mg capsule Take 1 tablet by mouth once daily. - glimepiride (AMARYL) 4 mg tablet Take 1 tablet by mouth daily with breakfast. Patient may take an extra half pill once a day for blood sugars over 200. - diclofenac (VOLTAREN ARTHRITIS PAIN) 1 % topical (more content not included)... Normal [facility] Absolute lymphocyte countOrd ered By: Sean Craig on 04-08-2023 Lymphocytes Auto (Unsp spec) [#/Vol] 0.74 10*3/uL 0.83-4.51 [facility] Automated lymphocyte count a s percentage of total leukocytesOrdered By: Sean Craig on 04-08-2023 Lymphocytes/100 WBC Auto (Unsp spec) 5.3 % 19-41 [facility] Basophil percentageOrdered B y: Sean Craig on 04-08-2023 Basophils/100 WBC (Bld) 0.1 % 0-1 [facility] Eosinophils/100 WBC (Bld) 0.1 % 0-5 [facility] Hemoglobin (Bld) [Mass/Vol] 8.6 g/dL 12.0-15.0 [facility] Monocytes/100 WBC (Bld) 5.8 % 0-10 [facility] Neutrophils (Bld) [#/Vol] 12.3 10*3/uL 2.0-7.7 [facility] Neutrophils/100 WBC (Bld) 88.3 % 47-70 [facility] WBC (Bld) [#/Vol] 13.9 10*3/uL 4.4-11.0 [facility] Chloride [Moles/Vol] 105 mmol/L 98-107 [facility] Glucose [Mass/Vol] 331 mg/dL 74-106 [facility] Comment on above: Glucose result great er than or equal to 200 mg/dLsuggests DIABETES MELLITUS per A.D.A. criteria. Potassium [Moles/Vol] 4.2 mmol/L 3.5-5.1 [facility] Sodium [Moles/Vol] 128 mmol/L 136-145 [facility] Determination of erythrocyte mean corpuscular volume (MCV)Ordered By: Sean Craig on 04-08-2023 MCV (RBC) [Entitic vol] 88.9 fL 81-99 [facility] Erythrocyte distribution wid th ratioOrdered By: Sean Craig on 04-08-2023 Erythrocyte distribution width (RBC) [Ratio] 17.4 % 11.6-14.6 [facility] Erythrocyte distribution wid th standard deviationOrdered By: Sean Craig on 04-08-2023 Erythrocyte distribution width (RBC) [Entitic vol] 56.2 fL 35.1-43.9 [facility] Hematocrit Auto (Bld) [Volum e fraction]Ordered By: Sean Craig on 04-08-2023 Hematocrit (Bld) [Volume fraction] 29.6 % 37-47 [facility] Immature granulocytes/100 WB C Auto (Bld)Ordered By: Sean Craig on 04-08-2023 Immature granulocytes/100 WBC (Bld) 0.400 % 0.0-0.9 [facility] Comment on above: IG% - Immature Granu locytes (promyelocytes, myelocytes and metamyelocytes) > 1% indicates that a LEFT SHIFT is Present. Laboratory - Chemistry and C hemistry - challengeOrdered By: Sean Craig on 04-08-2023 CO2 [Moles/Vol] 17.0 mmol/L 21.0-32.0 [facility] Urea nitrogen/Creatinine [Mass ratio] 7.8 mg/mg 10-20 [facility] Laboratory - Hematology and Cell countsOrdered By: Sean Craig on 04-08-2023 MCH (RBC) [Entitic mass] 25.8 pg 27.0-32.0 [facility] MCHC (RBC) [Mass/Vol] 29.1 g/dL 32-36 [facility] Nucleated RBC/100 WBC (Bld) [Ratio] 0 % 0-5 [facility] Platelets (Bld) [#/Vol] 335 10*3/uL 150-450 [facility] No Panel InformationOrdered By: Sean Craig on 04-08-2023 Troponin I High Sensitivity 6 pg/mL 3.0-54.0 [facility] Comment on above: Please Note: New Andree t Units and Gender Specific Reference Ranges. For more information see Policy Stat Procedure [place] High Sensitivity Troponin (TNIH) and attachments. D-Dimer Quantitative (PE/DVT) < 0.27 FEU/ug/m 0.27-0.49 [facility] Comment on above: NORMAL D-Dimer level (<0.50) indicates no DVT or PE. Estimated Creatinine Clearance Calc 51.88 ml/min [facility] Estimated GFR (MDRD) Amer 60 mL/min >60 [facility] Comment on above: GFR Calc Estimated GFR (MDRD) Non-Af Amer 50 mL/min >60 [facility] Comment on above: Non- GFR Calc Platelet mean volume Ethan-Ec ker (Bld) [Entitic vol]Ordered By: Sean Craig on 04-08-2023 Platelet mean volume (Bld) [Entitic vol] 8.4 fL 6.2-12.0 [facility] RBC Auto (Bld) [#/Vol]Ordere d By: Sean Craig on 04-08-2023 RBC (Bld) [#/Vol] 3.33 10*6/uL 4.2-5.4 [facility] Serum or plasma calcium margarita urement (mass/volume)Ordered By: Sean Craig on 04-08-2023 Calcium [Mass/Vol] 8.4 mg/dL 8.5-10.1 [facility] Serum or plasma creatinine m easurement (mass/volume)Ordered By: Sean Craig on 04-08-2023 Creatinine [Mass/Vol] 1.16 mg/dL 0.55-1.02 [facility] Comment on above: The validity of the calculated GFR & GFRAA in patients over 70 years has not been determined. Clinical correlation is essential. Serum or plasma urea nitroge n measurement (mass/volume)Ordered By: Sean Craig on 04-08-2023 Urea nitrogen [Mass/Vol] 9 mg/dL 7-18 [facility] Thin prep Papanicolaou smear with manual screeningOrdered By: Sean Craig on 04-08-2023 Thin prep Papanicolaou smear with manual screening 6 5-15 [facility] PAIN PANEL, UR QUANTon 03-30 2-Mtpvdandni-6,5-Dimet hyl-3,3-Diphenylpyrrol idine (EDDP) Confirm (U) [Mass/Vol] <6 ng/mL [facility] 6-Monoacetylmorphine (6-URIEL) (U) [Mass/Vol] <5 ng/mL [facility] Amphetamine Confirm (U) [Mass/Vol] <5 ng/mL [facility] Benzoylecgonine Confirm (U) [Mass/Vol] <24 ng/mL [facility] Buprenorphine (U) [Mass/Vol] <20 ng/mL [facility] Cannabinoids Confirm (U) [Mass/Vol] <16 ng/mL [facility] Codeine Confirm (U) [Mass/Vol] <11 ng/mL [facility] Dihydrocodeine Confirm (U) [Mass/Vol] <5 ng/mL [facility] fentaNYL Confirm (U) [Mass/Vol] <6 ng/mL [facility] HYDROcodone Confirm (U) [Mass/Vol] <8 ng/mL [facility] HYDROmorphone Confirm (U) [Mass/Vol] <5 ng/mL [facility] Methadone Confirm (U) [Mass/Vol] <16 ng/mL [facility] Methamphetamine Confirm (U) [Mass/Vol] <8 ng/mL [facility] Morphine Confirm (U) [Mass/Vol] <10 ng/mL [facility] Norbuprenorphine (U) [Mass/Vol] <20 ng/mL [facility] Norfentanyl Confirm (U) [Mass/Vol] <6 ng/mL [facility] Nortramadol (U) [Mass/Vol] <20 ng/mL [facility] Note,Ur Pain Childs [facility] oxyCODONE Confirm (U) [Mass/Vol] <10 ng/mL [facility] oxyMORphone Confirm (U) [Mass/Vol] <5 ng/mL [facility] traMADol Confirm (U) [Mass/Vol] <25 ng/mL [facility] SPECIMEN VALIDITY, URINEon 0 03-30-2023 Specimen Validity Chromate <50 mg/L [facility] Specimen Validity Creatinine 107.1 mg/dL 20.0 - 300.0 mg/dL [facility] Specimen Validity Nitrites <500 mg/L [facility] Specimen Validity Oxidants 153 mg/L <200 mg/L [facility] Specimen Validity PH 5.3 4.5 - 8.0 [facility] Specimen Validity Quality Specimen quality results within acceptable limits [facility] Specimen Validity Specific [place] 1.009 1.003 - 1.035 [facility] CNPBarbara 03-29-2023 PING Telephone (AGSPINE3) -------- GUTIERREZ HOBSON ([id number]) 1960 F CHT Date Time Provider Department 03/29/23 DHRUV GOVEA AGSPINE3 During your visit today, we recorded the following information about you: Prerna Saleh 03/29/2023 3:13 PM Signed ----- Message from Berta oBone sent at 03/29/2023 2:05 PM EST ----- Regarding: Spine OPEN New Patient Spine OPEN New Patient Patient: Gutierrez Hobson Date of : 1960 Primary Care Provider: Tiff Pearson MD Patient has been identified by name and Date of (Y/N): y Patient: Gutierrez Hobson Date of : 1960 Provider for this encounter: Tiff Pearson MD Reason for the call/escalation: Patient called to schedule a new patient appointment but she wanted to know if there was any way she could get in sooner at the [place] location with a doctor. Was Patient Referred to [facility]/Seek Emergency Treatment (Y/N): n Did Patient Agree (Y/N): n/a Was An Attempt Made To Transfer The Patient To The Office (Y/N): n Were You Able To Reach Someone At The Office (Y/N): n/a If Yes - Patient Was Transferred To (Caregivers Name): n/a If No - Which [facility] Leadership Hired Hand Did You Speak With Regarding This Patient: n/a Was an appointment scheduled (Y/N): y Reason patient was requesting visit (RFV/signs and symptoms/diagnosis) : new patient/back and neck pain Person calling if other than patient: self Return call to if other than patient: self or Best contact number: [phone] Thank you, Berta Boone March 29, 2023 2:05 PM Arley Koroma 03/30/2023 3:41 PM Signed Talked to patient and advised she has been placed on the cancellation Max Allergies As of Date: 03/29/2023 Noted Allergy Reaction GOSS 08/01/2021 14 - [...] Anaphylaxis Comments: ?anaphylaxis, patient tolerates zosyn PERCOCET (OXYCODONE-ACETAMINOPHEN )08/13/2004 9 - Itching SOAP 05/30/2006 SULFA (SULFONAMIDE ANTIBIOTICS) 12/04/2018 2 - Rash VICODIN (HYDROCODONE-ACETAMINOPH E*05/21/2009 2 - Rash ZITHROMAX (AZITHROMYCIN) 03/24/2016 2 - Rash Date Reviewed: 03/27/2023 Reviewed by: Viviana Morillo LPN - Fully Assessed Reason for Visit: Returning Patient's Call [408] Prescriptions as of 04/05/2023 - tapentadol (NUCYNTA) 75 mg tab Take 1 tablet by mouth three times a day for 14 days. - hydrocortisone 2.5 % cream Apply 1 application to affected area two times a day as needed. Location: neck (reaction to tape adhesive) May also use for poison tania. Use up to 14 days per episode of rash. - nystatin (MYCOSTATIN) powder Apply 1 application to affected area four times a day as needed. - lidocaine (LMX) 4 % cream Apply to affected area four times a day as needed (for painful sore in rectal area as directed). - melatonin 10 mg tab Take 1 tablet by mouth at bedtime as needed for insomnia. - pravastatin (PRAVACHOL) 40 mg tablet Take 1 tablet by mouth once daily. - Ostomy Supplies misc 1. Convatec Flanges Ref# [id number] 10 to a box, 3 boxes 2. Allkare Protective Barrier Wipes Ref # [id number] 1 box = 50 wipes, 3 boxes 3. Convatec Adhesive Glue Ref # [id number] 2 oz tube, 3 tubes 4. Convatec Stoma Adhesive Powder Ref # [id number] 1 oz bottle, 3 bottles 5. Convatec Stoma Bags Ref # [id number] 10 in a box, 3 boxes - benzonatate (TESSALON PERLE) 100 mg capsule Take 2 capsules by mouth three times a day as needed. - fluticasone-salmeterol (ADVAIR DISKUS) 100-50 mcg/dose inhaler Inhale 1 Puff as instructed two times a day. Rinse mouth out after use with water. - omeprazole (PRILOSEC) 20 mg capsule TAKE ONE CAPSULE BY MOUTH EVERY DAY 30 MINUTES BEFORE breakfast - gabapentin (NEURONTIN) 300 mg capsule - blood sugar diagnostic (BLOOD GLUCOSE TEST) test strip Test blood sugar(s) 4 times daily and as needed as directed. Dx: Type 2 DM - Uncontrolled E11.65 Insulin: Yes - ketoconazole (NIZORAL) 2 % cream Apply 1 application to affected area once daily. as needed - triamcinolone acetonide (KENALOG) 0.1 % cream Apply 1 application to affected area three times daily. Apply sparingly to area for rash/itching till rash resolves. For (more content not included)... Normal [facility] TOX SCREEN ROUT URon 024 Amphetamines Confirm (U) [Mass/Vol] Negative Negative [facility] Barbiturates Urine Negative Negative [facility] Benzodiazepines Urine Negative Negative [facility] Cannabinoids Screen Ql (U) Negative Negative [facility] Cocaine Ql (U) Negative Negative [facility] Ethanol (U) [Mass/Vol] <11 mg/dL [facility] Opiates Screen Ql (U) Negative Negative [facility] oxyCODONE cutoff Screen (U) [Mass/Vol] Negative Negative [facility] Phencyclidine Ql (U) Negative Negative [facility] No Panel Informationon 02-13 [facility] COVID & INFLUENZA A/B & RSV NAAT, ROUTINEon 01-13-2023 FLUAV RNA MANUELA+probe Ql (Unsp spec) Not detected Not Detected [facility] FLUBV RNA MANUELA+probe Ql (Unsp spec) Not detected Not Detected [facility] RSV A RNA MANUELA+probe Ql (Unsp spec) Not detected Not Detected [facility] SARS-CoV-2 (COVID-19) RNA MANUELA+probe Ql (Resp) Detected Abnormal See comment [facility] COVID NAAT, UPPER RESPIRATOR Y, ROUTINEon 01-10-2023 SARS-CoV-2 (COVID-19) RNA MANUELA+probe Ql (Resp) Not detected See comment [facility] ROUTINE FLU A/B + RSVon FLUAV RNA MANUELA+probe Ql (Unsp spec) Not detected Not Detected [facility] FLUBV RNA MANUELA+probe Ql (Unsp spec) Not detected Not Detected [facility] RSV A RNA MANUELA+probe Ql (Unsp spec) Not detected Not Detected [facility] XR Finger - left AP and Late ral and obliqueon 01-09-2023 IMPRESSION: No fracture or other acute bone or joint abnormalities. General Production Worker: GRISELDA Transcribe Date/Time: Jan 09 2023 3:26P Dictated by : TANIKA RYDER MD This examination was interpreted and the report reviewed and electronically signed by: TANIKA RYDER MD on Jan 09 2023 3:29PM [facility] DIVISION OF RADIOLOGY * * *Final Report* * * DATE OF EXAM: Jan 09 2023 3:21PM WOX [id number] - XR DIGIT 3V FRONTAL/LAT/OBL LT / PROCEDURE REASON: Paronychia of finger, left * * * * Physician Interpretation * * * * LEFT 3RD FINGER, 3 VIEWS, 01/09/2023 HISTORY: Blunt trauma to the left middle finger several weeks ago. Paronychia. Pain. COMPARISON: None TECHNIQUE: AP, lateral, and oblique views of the left third finger RESULTS: The bones are intact and normally aligned. No bone lesions are seen. There are minimal degenerative changes in the proximal and distal interphalangeal joints. There are no periarticular erosions. There are no soft tissue calcifications or radiopaque foreign bodies. DIVISION OF RADIOLOGY Provider, Vijay Gaming - 01/09/2023 * * *Final Report* * * DATE OF EXAM: Jan 09 2023 3:21PM WOX [id number] - XR DIGIT 3V FRONTAL/LAT/OBL LT / PROCEDURE REASON: Paronychia of finger, left * * * * Physician Interpretation * * * * LEFT 3RD FINGER, 3 VIEWS, 01/09/2023 HISTORY: Blunt trauma to the left middle finger several weeks ago. Paronychia. Pain. COMPARISON: None TECHNIQUE: AP, lateral, and oblique views of the left third finger RESULTS: The bones are intact and normally aligned. No bone lesions are seen. There are minimal degenerative changes in the proximal and distal interphalangeal joints. There are no periarticular erosions. There are no soft tissue calcifications or radiopaque foreign bodies. IMPRESSION IMPRESSION: No fracture or other acute bone or joint abnormalities. General Production Worker: GRISELDA Transcribe Date/Time: Jan 09 2023 3:26P Dictated by : TANIKA RYDER MD This examination was interpreted and the report reviewed and electronically signed by: TANIKA RYDER MD on Jan 09 2023 3:29PM EST [facility] Radiology Study observation (narrative) [facility] XR Finger - left AP and Late ral and obliqueOrdered By: Ccf Provider on 01-09-2023 [facility] XR CHEST 2V FRONTAL/LATon [facility] XR Chest PA and Lateralon IMPRESSION: No acute radiographic abnormality. General Production Worker: GRISELDA Transcribe Date/Time: Nov 01 2022 12:44P Dictated by : MARIA C BAILEY MD This examination was interpreted and the report reviewed and electronically signed by: MARIA C BAILEY MD on Nov 01 2022 12:45PM [facility] DIVISION OF RADIOLOGY * * *Final Report* * * DATE OF EXAM: Nov 01 2022 12:16PM WOX [id number] - XR CHEST 2V FRONTAL/LAT / PROCEDURE REASON: multiple diagnoses * * * * Physician Interpretation * * * * EXAMINATION: CHEST RADIOGRAPH (2 VIEW FRONTAL & LATERAL) CLINICAL HISTORY: Wheezing Acute cough MQ: XC2_6 EXAM DATE/TIME: 11/01/2022 12:16 PM COMPARISON: 08/17/2021 RESULT: Lines, tubes, and devices: None. Lungs and pleura: No consolidation. No lung mass. No pleural effusion. No pneumothorax. Cardiomediastinal silhouette: Normal cardiomediastinal silhouette. Bones and soft tissues: Unremarkable. DIVISION OF RADIOLOGY Provider, Vijay Gaming - 11/01/2022 * * *Final Report* * * DATE OF EXAM: Nov 01 2022 12:16PM WOX [id number] - XR CHEST 2V FRONTAL/LAT / PROCEDURE REASON: multiple diagnoses * * * * Physician Interpretation * * * * EXAMINATION: CHEST RADIOGRAPH (2 VIEW FRONTAL & LATERAL) CLINICAL HISTORY: Wheezing Acute cough MQ: XC2_6 EXAM DATE/TIME: 11/01/2022 12:16 PM COMPARISON: 08/17/2021 RESULT: Lines, tubes, and devices: None. Lungs and pleura: No consolidation. No lung mass. No pleural effusion. No pneumothorax. Cardiomediastinal silhouette: Normal cardiomediastinal silhouette. Bones and soft tissues: Unremarkable. IMPRESSION IMPRESSION: No acute radiographic abnormality. General Production Worker: PSCB Transcribe Date/Time: Nov 01 2022 12:44P Dictated by : MARIA C BAILEY MD This examination was interpreted and the report reviewed and electronically signed by: MARIA C BAILEY MD on Nov 01 2022 12:45PM EST [facility] Radiology Study observation (narrative) [facility] XR Chest PA and LateralOrder ed By: Ccf Provider on 11-01-2022 [facility] GUTIERREZ HOBSON ([id number]) 1960 F CHT Date Time Provider Department 07/06/22 DHRUV GOVEA [facility] During your visit today, we recorded the following information about you: Prerna Saleh 07/06/2022 8:33 AM Signed ----- Message from Berta Boone sent at 07/05/2022 4:50 PM EDT ----- Regarding: Medicine l OPEN l New Patient Appointment/Question Subject Line Format: Medicine / [Provider Name] / [Issue] Patient has been identified by name and Date of (Y/N): y Patient: Gutierrez Hobson Date of : 1960 Provider for this encounter: Tiff Pearson MD Reason for the call/escalation: Patient wanted to get scheduled with pain management but they were interested in scheduling with a Dr. Quintero. They heard he will be a new doctor at the [facility] and wanted to know more information, or to be directed in the right direction to get scheduled Was Patient Referred to [facility]/Seek Emergency Treatment (Y/N): n Did Patient Agree (Y/N): n/a Was An Attempt Made To Transfer The Patient To The Office (Y/N): n Were You Able To Reach Someone At The Office (Y/N): n/a If Yes - Patient Was Transferred To (Caregivers Name): n/a If No - Which [facility] Leadership Hired Hand Did You Speak With Regarding This Patient: n/a Was an appointment scheduled (Y/N): n Reason patient was requesting visit (RFV/signs and symptoms/diagnosis) : pain management Person calling if other than patient: self Return call to if other than patient: self Best contact number: [phone] Thank you, Berta Boone July 05, 2022 4:50 PM Prernaflavia Saleh 07/06/2022 8:36 AM Signed We do not have a Dr Zepeda with our practice [facility] [facility] [place] [address] [place] [address] P: [phone] F: [phone] Allergies As of Date: 07/06/2022 Noted Allergy Reaction GOSS 08/01/2021 14 - [...] Anaphylaxis Comments: ?anaphylaxis, patient tolerates zosyn PERCOCET (OXYCODONE-ACETAMINOPHEN )08/13/2004 9 - Itching SOAP 05/30/2006 SULFA (SULFONAMIDE ANTIBIOTICS) 12/04/2018 2 - Rash VICODIN (HYDROCODONE-ACETAMINOPH E*05/21/2009 2 - Rash ZITHROMAX (AZITHROMYCIN) 03/24/2016 2 - Rash Date Reviewed: 06/28/2022 Reviewed by: Gwendolyn Lawrence LPN - Fully Assessed Reason for Visit: New Patient [172] Prescriptions as of 07/06/2022 - mupirocin (BACTROBAN) 2 % ointment Apply to affected area three times daily for 10 days. - diclofenac (VOLTAREN ARTHRITIS PAIN) 1 % [...] 2 tablets by mouth twice daily. - ephctywpjwUGFXZ-aqieua-z idocaine (BMX 1:1:1) 1:1:1 liqd Mix in equal [...] Use one needle per dose (Lantus and Humalog) (more content not included)... Normal [facility] Laboratory - Drug toxicology Ordered By: Dr. Trevizo on 06-29-2022 Amphetamines Ql (U) Negative <1000 ng/mL [facility] Benzodiazepines Ql (U) Negative < 200 ng/mL [facility] Cannabinoids Screen Ql (U) Positive < 50 ng/mL [facility] Cocaine Ql (U) Negative < 300 ng/mL [facility] Opiates Ql (U) Negative < 300 ng/mL [facility] No Panel InformationOrdered By: Dr. Trevizo on 06-29-2022 MDMA (Ecstasy) Screen Negative < 500 ng/mL [facility] Urine Barbiturates Screen Negative < 200 ng/mL [facility] Urine Drug Screen Comment [facility] Comment on above: CONFIRMATORY TESTING FOR ALL POSITIVE URINE DRUG SCREENRESULTS WILL ONLY BE SENT OUT UPON PHYSICIAN ORDER. VISTA Urine Drug Screen methods provide only preliminaryanalytical test results. A more specific alternate chemicalmethod must be used in order to obtain a confirmedanalytical result. Gas chromatography/mass spectrometery(GC/MS) is the preferred confirmatory method. Clinicalconsideration and professional judgement should be appliedto any drug of abuse test result, particularly whenpreliminary positive results are used. URINE TCA TESTING MUST BE ORDERED SEPARATELY. USE TESTMNEMONIC: [facility] Urine Methadone Screen Negative < 300 ng/mL [facility] Urine phencyclidine (PCP) de tectionOrdered By: Dr. Trevizo on 06-29-2022 Phencyclidine Ql (U) Negative < 25 ng/mL [facility] XR Pelvis and Hip - right AP and Lateral frogon 06-29-2022 IMPRESSION: No acute osseous abnormality. General Production Worker: PSCB Transcribe Date/Time: Jun 29 2022 11:52A Dictated by : UMESH CAMPOS DO This examination was interpreted and the report reviewed and electronically signed by: UMESH CAMPOS DO on Jun 29 2022 11:55AM [facility] DIVISION OF RADIOLOGY * * *Final Report* * * DATE OF EXAM: Jun 28 2022 1:44PM WOX [id number] - XR HIP 3V PELV+ AP/LAT RT / PROCEDURE REASON: multiple diagnoses * * * * Physician Interpretation * * * * EXAMINATION: XR HIP 3V PELV+ AP/LAT RT PATIENT/TECHNOLOGIST PROVIDED HISTORY: Chronic posterior right hip pain increasing over time. CLINICAL INFORMATION: 61 years old Female with Groin pain, right Hip instability, right TECHNIQUE: XR HIP 3V PELV+ AP/LAT RT Laterality: RIGHT Number of different views (projections): 3 COMPARISON: Radiographs 05/19/2011 RESULT: Hip joint spaces are maintained. Sacroiliac joints are symmetric and maintained. Minimal degenerative change at the pubic symphysis. No fracture. Bowel anastomotic sutures in the pelvis and RIGHT lower quadrant. Left lower quadrant ostomy. DIVISION OF RADIOLOGY [facility] * * *Final Report* * * DATE OF EXAM: Jun 28 2022 1:44PM WOX [id number] - XR HIP 3V PELV+ AP/LAT RT / PROCEDURE REASON: multiple diagnoses * * * * Physician Interpretation * * * * EXAMINATION: XR HIP 3V PELV+ AP/LAT RT PATIENT/TECHNOLOGIST PROVIDED HISTORY: Chronic posterior right hip pain increasing over time. CLINICAL INFORMATION: 61 years old Female with Groin pain, right Hip instability, right TECHNIQUE: XR HIP 3V PELV+ AP/LAT RT Laterality: RIGHT Number of different views (projections): 3 COMPARISON: Radiographs 05/19/2011 RESULT: Hip joint spaces are maintained. Sacroiliac joints are symmetric and maintained. Minimal degenerative change at the pubic symphysis. No fracture. Bowel anastomotic sutures in the pelvis and RIGHT lower quadrant. Left lower quadrant ostomy. IMPRESSION IMPRESSION: No acute osseous abnormality. General Production Worker: [email or web address] Transcribe Date/Time: Jun 29 2022 11:52A Dictated by : UMESH CAMPOS DO This examination was interpreted and the report reviewed and electronically signed by: UMESH CAMPOS DO on Jun 29 2022 11:55AM EST [facility] XR Pelvis and Hip - right AP and Lateral frogOrdered By: Ccf Provider on 06-29-2022 [facility] XR Pelvis and Hip - right AP and Lateral frogon 06-28-2022 Radiology Study observation (narrative) [facility] UA DIP, URINE (POC)on 2022 BILIRUBIN UA (POCT) Small Abnormal Negative [facility] CLARITY UA (POCT) Slightly Cloudy Cl [facility] COLOR UA (POCT) Other [facility] GLUCOSE UA (POCT) Negative Negative mg/dL [facility] HEMOGLOBIN/BLOOD UA (POCT) Negative Negative [facility] KETONE UA (POCT) Negative Negative mg/dL [facility] LEUKOCYTES UA (POCT) Trace Abnormal Negative [facility] NITRITE UA (POCT) Negative Negative [facility] PH UA (POCT) 5.5 4.5 - 8.0 [facility] Protein Ql (U) Negative Negative mg/dL [facility] SPECIFIC GRAVITY UA (POCT) 1.015 1.005 - 1.030 [facility] UROBILINOGEN UA (POCT) 0.2 E.U./dL Ana l E.U./dL [facility] Absolute lymphocyte countOrd ered By: Dr. Nunez on 06-01-2022 Lymphocytes Auto (Unsp spec) [#/Vol] 1.05 10*3/uL 0.83-4.51 [facility] Basophil percentageOrdered B y: Dr. Nunez on 06-01-2022 Basophils/100 WBC (Bld) 0.3 % 0-1 [facility] Chloride [Moles/Vol] 106 mmol/L 98-107 [facility] Eosinophils/100 WBC (Bld) 0.9 % 0-5 [facility] Glucose [Mass/Vol] 243 mg/dL 74-106 [facility] Comment on above: Glucose result great er than or equal to 200 mg/dLsuggests DIABETES MELLITUS per A.D.A. criteria. Neutrophils (Bld) [#/Vol] 5.7 10*3/uL 2.0-7.7 [facility] Neutrophils/100 WBC (Bld) 76.9 % 47-70 [facility] Potassium [Moles/Vol] 5.9 mmol/L 3.5-5.1 [facility] Comment on above: Moderate Hemolysis, Result may be falsely increased. Sodium [Moles/Vol] 131 mmol/L 136-145 [facility] WBC (Bld) [#/Vol] 7.4 10*3/uL 4.4-11.0 [facility] Blood erythrocytes count (nu mber/volume)Ordered By: Dr. Nunez on 06-01-2022 RBC (Bld) [#/Vol] 4.58 10*6/uL 4.2-5.4 [facility] Blood hemoglobin measurement (mass/volume)Ordered By: Dr. Nunez on 06-01-2022 Hemoglobin (Bld) [Mass/Vol] 12.6 g/dL 12.0-15.0 [facility] Blood lymphocytes/100 leukoc ytesOrdered By: Dr. Nunez on 06-01-2022 Lymphocytes/100 WBC (Bld) 14.2 % 19-41 [facility] Blood monocytes/100 leukocyt esOrdered By: Dr. Nunez on 06-01-2022 Monocytes/100 WBC (Bld) 7.2 % 0-10 [facility] Blood platelet mean volumeOr dered By: Dr. Nunez on 06-01-2022 Platelet mean volume (Bld) [Entitic vol] 10.3 fL 6.2-12.0 [facility] Determination of erythrocyte mean corpuscular volume (MCV)Ordered By: Dr. Nunez on 06-01-2022 MCV (RBC) [Entitic vol] 94.1 fL 81-99 [facility] Hematocrit Auto (Bld) [Volum e fraction]Ordered By: Dr. Nunez on 06-01-2022 Hematocrit (Bld) [Volume fraction] 43.1 % 37-47 [facility] Laboratory - Chemistry and C hemistry - challengeOrdered By: Dr. Nunez on 06-01-2022 CO2 [Moles/Vol] 22.0 mmol/L 21.0-32.0 [facility] Urea nitrogen/Creatinine [Mass ratio] 12.8 mg/mg 10-20 [facility] Laboratory - Hematology and Cell countsOrdered By: Dr. Nunez on 06-01-2022 Erythrocyte distribution width (RBC) [Entitic vol] 47.3 fL 35.1-43.9 [facility] Erythrocyte distribution width (RBC) [Ratio] 13.7 % 11.6-14.6 [facility] Immature granulocytes/100 WBC (Bld) 0.500 % 0.0-0.9 [facility] Comment on above: IG% - Immature Granu locytes (promyelocytes, myelocytes and metamyelocytes) > 1% indicates that a LEFT SHIFT is Present. MCH (RBC) [Entitic mass] 27.5 pg 27.0-32.0 [facility] Nucleated RBC/100 WBC (Bld) [Ratio] 0 % 0-5 [facility] MCHC Auto (RBC) [Mass/Vol]Or dered By: Dr. Nunez on 06-01-2022 MCHC (RBC) [Mass/Vol] 29.2 g/dL 32-36 [facility] No Panel InformationOrdered By: Dr. Nunez on 06-01-2022 Estimated Creatinine Clearance Calc 47.54 ml/min [facility] Estimated GFR (MDRD) Amer 65 mL/min >60 [facility] Comment on above: GFR Calc Estimated GFR (MDRD) Non-Af Amer 54 mL/min >60 [facility] Comment on above: Non- GFR Calc Thyroid Stimulating Hormone (TSH) 2.37 uIU/mL 0.358-3.74 [facility] Platelets bldOrdered By: Dr. Nunez on 06-01-2022 Platelets (Bld) [#/Vol] 124 10*3/uL 150-450 [facility] Serum or plasma calcium margarita urement (mass/volume)Ordered By: Dr. Nunez on 06-01-2022 Calcium [Mass/Vol] 8.8 mg/dL 8.5-10.1 [facility] Serum or plasma creatinine m easurement (mass/volume)Ordered By: Dr. Nunez on 06-01-2022 Creatinine [Mass/Vol] 1.09 mg/dL 0.55-1.02 [facility] Comment on above: The validity of the calculated GFR & GFRAA in patients over 70 years has not been determined. Clinical correlation is essential. Serum or plasma urea nitroge n measurement (mass/volume)Ordered By: Dr. Nunez on 06-01-2022 Urea nitrogen [Mass/Vol] 14 mg/dL 7 [facility] Thin prep Papanicolaou smear with manual screeningOrdered By: Dr. Nunez on 06-01-2022 Thin prep Papanicolaou smear with manual screening 3 07-18 [facility] Laboratory - Drug toxicology on 11-18-2021 Amphetamines Ql (U) Negative <1000 ng/mL [facility] Work Phone: [phone] Benzodiazepines Ql (U) Negative < 200 ng/mL [facility] Work Phone: [phone] Cannabinoids Screen Ql (U) Negative < 50 ng/mL [facility] Work Phone: [phone] Cocaine Ql (U) Negative < 300 ng/mL [facility] Work Phone: [phone] Opiates Ql (U) Negative < 300 ng/mL [facility] Work Phone: No Panel Informationon 11-18 MDMA (Ecstasy) Screen Negative < 500 ng/mL [facility] Work Phone: Miscellaneous Test See comment [facility] Work Phone: [phone] Comment on above: TEST RESULT LIMITSTa pentadol, Urine Tapentadol Positive [id number] Tapentadol Conf, [place], [place] >[address] ng/mL Fdqouq=[id number] detected; this finding is consistent with use of medication Nucynta, or generic formulations. TESTING PERFORMED AT [facility]. ORIGINAL REPORT ON FILE IN LAB CONTAINS ADDITIONAL TEST SITE INFORMATION. Urine Barbiturates Screen Negative < 200 ng/mL [facility] Work Phone: Urine Drug Screen Comment [facility] Work Phone: Comment on above: CONFIRMATORY TESTING FOR ALL POSITIVE URINE DRUG SCREENRESULTS WILL ONLY BE SENT OUT UPON PHYSICIAN ORDER. VISTA Urine Drug Screen methods provide only preliminaryanalytical test results. A more specific alternate chemicalmethod must be used in order to obtain a confirmedanalytical result. Gas chromatography/mass spectrometery(GC/MS) is the preferred confirmatory method. Clinicalconsideration and professional judgement should be appliedto any drug of abuse test result, particularly whenpreliminary positive results are used. URINE TCA TESTING MUST BE ORDERED SEPARATELY. USE TESTMNEMONIC: [facility] Urine Methadone Screen Negative < 300 ng/mL [facility] Work Phone: Urine phencyclidine (PCP) de tectionon 11-18-2021 Phencyclidine Ql (U) Negative < 25 ng/mL [facility] Work Phone: XR CHEST 2V FRONTAL/LATon [facility] XR Chest PA and Lateralon IMPRESSION: No significant acute radiographic abnormality. General Production Worker: [email or web address] Transcribe Date/Time: Aug 17 2021 3:02P Dictated by : SHIRA AGUIAR MD This examination was interpreted and the report reviewed and electronically signed by: SHIRA AGUIAR MD on Aug 17 2021 3:03PM EST [id number]_U SE_DIVISION OF RADIOLOGY * * *Final Report* * * DATE OF EXAM: Aug 17 2021 3:00PM WOX 5291 - XR CHEST 2V FRONTAL/LAT / PROCEDURE REASON: multiple diagnoses * * * * Physician Interpretation * * * * EXAMINATION: CHEST RADIOGRAPH (2 VIEW FRONTAL & LATERAL) CLINICAL HISTORY: Sinobronchitis MQ: XC2_6 EXAM DATE/TIME: 08/17/2021 3:00 PM COMPARISON: Chest x-ray dated August 02, 2021 RESULT: Lines, tubes, and devices: Electronic device again projects over the cardiac shadow. Lungs and pleura: Stable mild linear atelectasis versus scarring at the right base. No consolidation. No lung mass. No pleural effusion. No pneumothorax. Cardiomediastinal silhouette: Stable cardiomediastinal silhouette. Bones and soft tissues: Degenerative changes are present within the thoracic spine. [id number] SE_DIVISION OF RADIOLOGY Provider, [facility] - 08/17/2021 * * *Final Report* * * DATE OF EXAM: Aug 17 2021 3:00PM WOX 5291 - XR CHEST 2V FRONTAL/LAT / PROCEDURE REASON: multiple diagnoses * * * * Physician Interpretation * * * * EXAMINATION: CHEST RADIOGRAPH (2 VIEW FRONTAL & LATERAL) CLINICAL HISTORY: Sinobronchitis MQ: XC2_6 EXAM DATE/TIME: 08/17/2021 3:00 PM COMPARISON: Chest x-ray dated August 02, 2021 RESULT: Lines, tubes, and devices: Electronic device again projects over the cardiac shadow. Lungs and pleura: Stable mild linear atelectasis versus scarring at the right base. No consolidation. No lung mass. No pleural effusion. No pneumothorax. Cardiomediastinal silhouette: Stable cardiomediastinal silhouette. Bones and soft tissues: Degenerative changes are present within the thoracic spine. IMPRESSION IMPRESSION: No significant acute radiographic abnormality. General Production Worker: PSCB Transcribe Date/Time: Aug 17 2021 3:02P Dictated by : SHIRA AGUIAR MD This examination was interpreted and the report reviewed and electronically signed by: SHIRA AGUIAR MD on Aug 17 2021 3:03PM EST [facility] Radiology Study observation (narrative) [facility] XR Chest PA and LateralOrder ed By: Ccf Provider on 08-17-2021 [facility] Absolute lymphocyte counton 08-01-2021 Lymphocytes Auto (Unsp spec) [#/Vol] 0.96 10*3/uL 0.83-4.51 [facility] Work Phone: Basophil percentageon 2021 Basophils/100 WBC (Bld) 0.2 % 0-1 [facility] Work Phone: Chloride [Moles/Vol] 108 mmol/L 98-107 [facility] Work Phone: Eosinophils/100 WBC (Bld) 0.6 % 0-5 [facility] Work Phone: Glucose [Mass/Vol] 305 mg/dL 74-106 [facility] Work Phone: Comment on above: Glucose result great er than or equal to 200 mg/dLsuggests DIABETES MELLITUS per A.D.A. criteria. Neutrophils (Bld) [#/Vol] 7.4 10*3/uL 2.0-7.7 [facility] Work Phone: Neutrophils/100 WBC (Bld) 84.0 % 47-70 [facility] Work Phone: Potassium [Moles/Vol] 3.9 mmol/L 3.5-5.1 [facility] Work Phone: Sodium [Moles/Vol] 138 mmol/L 136-145 [facility] Work Phone: WBC (Bld) [#/Vol] 8.9 10*3/uL 4.4-11.0 [facility] Work Phone: Blood erythrocytes count (nu mber/volume)on 08-01-2021 RBC (Bld) [#/Vol] 3.59 10*6/uL 4.2-5.4 [facility] Work Phone: Blood hemoglobin measurement (mass/volume)on 08-01-2021 Hemoglobin (Bld) [Mass/Vol] 9.6 g/dL 12.0-15.0 [facility] Work Phone: Blood lymphocytes/100 leukoc yteson 08-01-2021 Lymphocytes/100 WBC (Bld) 10.8 % 19-41 [facility] Work Phone: Blood monocytes/100 leukocyt eson 08-01-2021 Monocytes/100 WBC (Bld) 4.2 % 0-10 [facility] Work Phone: [phone] Blood platelet mean volumeon 08-01-2021 Platelet mean volume (Bld) [Entitic vol] 9.3 fL 6.2-12.0 [facility] Work Phone: [phone] Determination of erythrocyte mean corpuscular volume (MCV)on 08-01-2021 MCV (RBC) [Entitic vol] 90.3 fL 81-99 [facility] Work Phone: [phone] Erythrocyte sedimentation ra sowmya 08-01-2021 ESR (Bld) [Velocity] 72 mm/h 0-30 [facility] Work Phone: [phone] Hematocrit Auto (Bld) [Volum e fraction]on 08-01-2021 Hematocrit (Bld) [Volume fraction] 32.4 % 37-47 [facility] Work Phone: [phone] Laboratory - Chemistry and C hemistry - challengeon 08-01-2021 CO2 [Moles/Vol] 24.0 mmol/L 21.0-32.0 [facility] Work Phone: [phone] Urea nitrogen/Creatinine [Mass ratio] 10.3 mg/mg 10-20 [facility] Work Phone: [phone] Laboratory - Hematology and Cell countson 08-01-2021 Erythrocyte distribution width (RBC) [Entitic vol] 53.2 fL 35.1-43.9 [facility] Work Phone: [phone] Erythrocyte distribution width (RBC) [Ratio] 16.0 % 11.6-14.6 [facility] Work Phone: [phone] Immature granulocytes/100 WBC (Bld) 0.200 % 0.0-0.9 [facility] Work Phone: Comment on above: IG% - Immature Granu locytes (promyelocytes, myelocytes and metamyelocytes) > 1% indicates that a LEFT SHIFT is Present. MCH (RBC) [Entitic mass] 26.7 pg 27.0-32.0 [facility] Work Phone: [phone] Nucleated RBC/100 WBC (Bld) [Ratio] 0 % 0-5 [facility] Work Phone: [phone] MCHC Auto (RBC) [Mass/Vol]on 08-01-2021 MCHC (RBC) [Mass/Vol] 29.6 g/dL 32-36 [facility] Work Phone: [phone] No Panel Informationon 08-01 Estimated Creatinine Clearance Calc 51.03 ml/min [facility] Work Phone: [phone] Estimated GFR (MDRD) Amer 67 mL/min >60 [facility] Work Phone: [phone] Comment on above: GFR Calc Estimated GFR (MDRD) Non-Af Amer 55 mL/min >60 [facility] Work Phone: [phone] Comment on above: Non- GFR Calc Platelets bldon 08-01-2021 Platelets (Bld) [#/Vol] 245 10*3/uL 150-450 [facility] Work Phone: [phone] Serum or plasma C reactive p rotein measurement (mass/volume)on 08-01-2021 CRP [Mass/Vol] 22.50 mg/L 0.0-3.0 [facility] Work Phone: Comment on above: C-Reactive Protein ( CRP) provides useful information for thediagnosis, therapy and monitoring of inflammatory processesand associated diseases. For the evaluation of Relative Riskfor Cardiovascular Disease, a High Sensitivity CRP (HSCRP)should be ordered. Serum or plasma calcium margarita urement (mass/volume)on 08-01-2021 Calcium [Mass/Vol] 8.6 mg/dL 8.5-10.1 [facility] Work Phone: [phone] Serum or plasma creatinine m easurement (mass/volume)on 08-01-2021 Creatinine [Mass/Vol] 1.07 mg/dL 0.55-1.02 [facility] Work Phone: [phone] Comment on above: The validity of the calculated GFR & GFRAA in patients over 70 years has not been determined. Clinical correlation is essential. Serum or plasma urea nitroge n measurement (mass/volume)on 08-01-2021 Urea nitrogen [Mass/Vol] 11 mg/dL 7-18 [facility] Work Phone: Thin prep Papanicolaou smear with manual screeningon 08-01-2021 Thin prep Papanicolaou smear with manual screening 6 5-15 [facility] Work Phone: Absolute lymphocyte counton 06-10-2021 Lymphocytes Auto (Unsp spec) [#/Vol] 0.98 10*3/uL 0.83-4.51 [facility] Work Phone: Basophil percentageon 2021 Basophil percentage >100 SEEN /hpf [facility] Work Phone: Basophils/100 WBC (Bld) 0.5 % 0-1 [facility] Work Phone: Chloride [Moles/Vol] 106 mmol/L 98-107 [facility] Work Phone: Eosinophils/100 WBC (Bld) 0.5 % 0-5 [facility] Work Phone: Glucose [Mass/Vol] 274 mg/dL 74-106 [facility] Work Phone: Comment on above: Glucose result great er than or equal to 200 mg/dLsuggests DIABETES MELLITUS per A.D.A. criteria. Lactate [Moles/Vol] 1.1 mmol/L 0.4-2.0 [facility] Work Phone: Neutrophils (Bld) [#/Vol] 5.0 10*3/uL 2.0-7.7 [facility] Work Phone: Neutrophils/100 WBC (Bld) 76.2 % 47-70 [facility] Work Phone: Potassium [Moles/Vol] 4.0 mmol/L 3.5-5.1 [facility] Work Phone: Sodium [Moles/Vol] 134 mmol/L 136-145 [facility] Work Phone: WBC (Bld) [#/Vol] 6.6 10*3/uL 4.4-11.0 [facility] Work Phone: Bilirubin Test strip Ql (U)o n 06-10-2021 Bilirubin Ql (U) Negative Negative [facility] Work Phone: Blood erythrocytes count (nu mber/volume)on 06-10-2021 RBC (Bld) [#/Vol] 3.61 10*6/uL 4.2-5.4 [facility] Work Phone: Blood hemoglobin measurement (mass/volume)on 06-10-2021 Hemoglobin (Bld) [Mass/Vol] 9.3 g/dL 12.0-15.0 [facility] Work Phone: Blood lymphocytes/100 leukoc yteson 06-10-2021 Lymphocytes/100 WBC (Bld) 14.9 % 19-41 [facility] Work Phone: Blood monocytes/100 leukocyt eson 06-10-2021 Monocytes/100 WBC (Bld) 7.6 % 0-10 [facility] Work Phone: Blood platelet mean volumeon 06-10-2021 Platelet mean volume (Bld) [Entitic vol] 9.0 fL 6.2-12.0 [facility] Work Phone: Determination of erythrocyte mean corpuscular volume (MCV)on 06-10-2021 MCV (RBC) [Entitic vol] 86.4 fL 81-99 [facility] Work Phone: Hematocrit Auto (Bld) [Volum e fraction]on 06-10-2021 Hematocrit (Bld) [Volume fraction] 31.2 % 37-47 [facility] Work Phone: Ketones Test strip Ql (U)on 06-10-2021 Ketones Ql (U) Negative Negative [facility] Work Phone: Laboratory - Chemistry and C hemistry - challengeon 06-10-2021 CO2 [Moles/Vol] 21.0 mmol/L 21.0-32.0 [facility] Work Phone: [phone] Urea nitrogen/Creatinine [Mass ratio] 11.7 mg/mg 10-20 [facility] Work Phone: [phone] Laboratory - Hematology and Cell countson 06-10-2021 Erythrocyte distribution width (RBC) [Entitic vol] 51.9 fL 35.1-43.9 [facility] Work Phone: [phone] Erythrocyte distribution width (RBC) [Ratio] 16.5 % 11.6-14.6 [facility] Work Phone: [phone] Immature granulocytes/100 WBC (Bld) 0.300 % 0.0-0.9 [facility] Work Phone: [phone] Comment on above: IG% - Immature Granu locytes (promyelocytes, myelocytes and metamyelocytes) > 1% indicates that a LEFT SHIFT is Present. MCH (RBC) [Entitic mass] 25.8 pg 27.0-32.0 [facility] Work Phone: [phone] Nucleated RBC/100 WBC (Bld) [Ratio] 0 % 0-5 [facility] Work Phone: [phone] MCHC Auto (RBC) [Mass/Vol]on 06-10-2021 MCHC (RBC) [Mass/Vol] 29.8 g/dL 32-36 [facility] Work Phone: [phone] Mucus LM Ql (Urine sed)on Mucus Ql (Urine sed) 0 SEEN /hpf [facility] Work Phone: [phone] Nitrite Test strip Ql (U)on 06-10-2021 Nitrite Ql (U) Negative Negative [facility] Work Phone: [phone] No Panel Informationon 06-10 Estimated Creatinine Clearance Calc 42.66 ml/min [facility] Work Phone: [phone] Estimated GFR (MDRD) Amer 54 mL/min >60 [facility] Work Phone: [phone] Comment on above: GFR Calc Estimated GFR (MDRD) Non-Af Amer 45 mL/min >60 [facility] Work Phone: Comment on above: Non- GFR Calc Platelets bldon 06-10-2021 Platelets (Bld) [#/Vol] 359 10*3/uL 150-450 [facility] Work Phone: Protein Test strip Ql (U)on 06-10-2021 Protein Ql (U) 30 mg/dl Negative [facility] Work Phone: [phone] Serum or plasma calcium margarita urement (mass/volume)on 06-10-2021 Calcium [Mass/Vol] 8.2 mg/dL 8.5-10.1 [facility] Work Phone: Serum or plasma creatinine m easurement (mass/volume)on 06-10-2021 Creatinine [Mass/Vol] 1.28 mg/dL 0.55-1.02 [facility] Work Phone: Comment on above: The validity of the calculated GFR & GFRAA in patients over 70 years has not been determined. Clinical correlation is essential. Serum or plasma urea nitroge n measurement (mass/volume)on 06-10-2021 Urea nitrogen [Mass/Vol] 15 mg/dL 7-18 [facility] Work Phone: Squamous epithelial cells de tection in urine sediment by light microscopyon 06-10-2021 Epithelial cells.squamous LM Ql (Urine sed) 0-5 SEEN /hpf [facility] Work Phone: Thin prep Papanicolaou smear with manual screeningon 06-10-2021 Thin prep Papanicolaou smear with manual screening 7 5-15 [facility] Work Phone: [phone] Urine blood detectionon 04-0 RBC Ql (U) 25 /ul Negative [facility] Work Phone: [phone] RBC Ql (U) 0-5 SEEN /hpf [facility] Work Phone: [phone] Urine clarityon 06-10-2021 Clarity (U) Sl. Cloudy Clear [facility] Work Phone: Urine color determinationon 06-10-2021 Color (U) Yellow Yellow [facility] Work Phone: [phone] Urine glucose detectionon Glucose Ql (U) Normal mg/dl Normal [facility] Work Phone: Urine leukocyte esterase det ection by dipstickon 06-10-2021 Leukocyte esterase Test strip Ql (U) 500 /ul Negative [facility] Work Phone: Urine pHon 06-10-2021 pH (U) 5.0 [pH] [facility] Work Phone: Urine sediment bacteria coun t by microscopy (number/high power field)on 06-10-2021 Bacteria LM.HPF (Urine sed) [#/Area] 1 /[HPF] None Seen [facility] Work Phone: Urine specific gravity measu rementon 06-10-2021 Specific gravity (U) [Rel density] 1.010 [facility] Work Phone: Urobilinogen Auto test strip Ql (U)on 06-10-2021 Urobilinogen Ql (U) Normal mg/dl Normal [facility] Work Phone: Laboratory - Drug toxicology on 03-09-2021 Amphetamines Ql (U) Negative [facility] Work Phone: Benzodiazepines Ql (U) Negative [facility] Work Phone: Cannabinoids Screen Ql (U) Negative [facility] Work Phone: Cocaine Ql (U) Negative [facility] Work Phone: Opiates Ql (U) Negative [facility] Work Phone: No Panel Informationon 03-09 Miscellaneous Test See comment [facility] Work Phone: Comment on above: [id number] 6+OXYCODONE-B UND (ng/mL) DRUG RESULT SCREEN CUTOFF____ Amphetamines,Urine Negative ng/mL 1000 Amphetamine test includes Amphetamine and Methamphetamine.Barbiturates Negative ng/mL 200Benzodiazepines Negative ng/mL 200Cannabinoid Negative ng/mL 20Cocaine (Metab) Negative ng/mL 300Opiates Negative ng/mL 300 Opiates test includes Codeine, Morphine, Hydromorphone, Hydrocodone. Oxycodone/Oxymorphone,Urine Negative ng/mL 300 Test includes Oxydodone and Oxymorphone. TESTING PERFORMED AT [facility]. ORIGINAL REPORT ON FILE IN LAB CONTAINS ADDITIONAL TEST SITE INFORMATION. Urine Barbiturates Screen Negative [facility] Work Phone: Urine Drug Screen Comment [facility] Work Phone: Comment on above: CONFIRMATORY TESTING FOR ALL POSITIVE URINE DRUG SCREENRESULTS WILL ONLY BE SENT OUT UPON PHYSICIAN ORDER. VISTA Urine Drug Screen methods provide only preliminaryanalytical test results. A more specific alternate chemicalmethod must be used in order to obtain a confirmedanalytical result. Gas chromatography/mass spectrometery(GC/MS) is the preferred confirmatory method. Clinicalconsideration and professional judgement should be appliedto any drug of abuse test result, particularly whenpreliminary positive results are used. URINE TCA TESTING MUST BE ORDERED SEPARATELY. USE TESTMNEMONIC: [facility] Urine Methadone Screen Negative [facility] Work Phone: Urine Methamphetamine-MDMA Screen Positive [facility] Work Phone: Urine phencyclidine (PCP) de tectionon 03-09-2021 Phencyclidine Ql (U) Negative [facility] Work Phone: No Panel Information [facility] Vital Signs Date Time Vital Sign Value Performing Clinician Faci litfrancisco 11-12-2024 12:12-0400 Body mass index (BMI) [Ratio] 27.47 kg/m2 Esteban Gabriel APRN.[employer] Work Phone: [facility] 11-12-2024 12:12-0400 Body weight 77.2 kg Esteban Gabriel CASING IN LINE FEEDER.[employer] Work Phone: [facility] 11-12-2024 12:12-0400 Diastolic blood pressure 60 mm[Hg] Esteban Gabriel [employer]ING IN [employer] FEEDER.[employer] Work Phone: [facility] 11-12-2024 12:12-0400 Heart rate 65 /min Esteban Gabriel [employer]ING IN [employer] FEEDER.[employer] Work Phone: [facility] 11-12-2024 12:12-0400 Respiratory rate 16 /min Esteban Gabriel [employer]ING IN LINE FEEDER.[employer] Work Phone: [facility] 11-12-2024 12:12-0400 Systolic blood pressure 132 mm[Hg] Esteban Gabriel [employer]ING IN [employer] FEEDER.[employer] Work Phone: [facility] 09-30-2024 13:20-0400 Body mass index (BMI) [Ratio] 28.15 kg/m2 Esteban Gabriel [employer]ING IN [employer] FEEDER.[employer] Work Phone: [facility] 09-30-2024 13:20-0400 Body weight 79.1 kg Esteban Gabriel [employer]ING IN [employer] FEEDER.[employer] Work Phone: [facility] 09-30-2024 13:20-0400 Diastolic blood pressure 84 mm[Hg] Esteban Gabriel [employer]ING IN LINE FEEDER.[employer] Work Phone: [facility] 09-30-2024 13:20-0400 Heart rate 68 /min Esteban Gabriel [employer]ING IN [employer] FEEDER.[employer] Work Phone: [facility] 09-30-2024 13:20-0400 Respiratory rate 14 /min Esteban Gabriel [employer]ING IN [employer] FEEDER.[employer] Work Phone: [facility] 09-30-2024 13:20-0400 SaO2% (BldA) [Mass fraction] 98 % Esteban Gabriel [employer]ING IN [employer] FEEDER.[employer] Work Phone: [facility] 09-30-2024 13:20-0400 Systolic blood pressure 132 mm[Hg] Esteban Gabriel [employer]ING IN LINE FEEDER.[employer] Work Phone: [facility] 05-28-2024 14:44-0400 Body mass index (BMI) [Ratio] 27.97 kg/m2 Shawn Yann CASING IN LINE FEEDER.BASKET PATCHER Work Phone: [facility] 05-28-2024 14:44-0400 Body weight 78.6 kg Shawn Yann [employer]ING IN [employer] FEEDER.BASKET PATCHER Work Phone: [facility] 05-28-2024 14:44-0400 Diastolic blood pressure 52 mm[Hg] Shawn Yann [employer]ING IN [employer] FEEDER.BASKET PATCHER Work Phone: [facility] 05-28-2024 14:44-0400 Heart rate 56 /min Shawn Yann [employer]ING IN LINE FEEDER.BASKET PATCHER Work Phone: [facility] 05-28-2024 14:44-0400 SaO2% (BldA) [Mass fraction] 97 % Shawn Yann [employer]ING IN LINE FEEDER.BASKET PATCHER Work Phone: [facility] 05-28-2024 14:44-0400 Systolic blood pressure 124 mm[Hg] Shawn Yann [employer]ING IN [employer] FEEDER.BASKET PATCHER Work Phone: [facility] 03-05-2024 14:11-0500 Body mass index (BMI) [Ratio] 29.04 kg/m2 Anthony Lizarraga MD Work Phone: [facility] 03-05-2024 [id number] Body temperature 98.2 [degF] Anthony Lizarraga MD Work Phone: [facility] 03-05-2024 [id number] Body weight 81.6 kg Anthony Lizarraga MD Work Phone: [facility] 03-05-2024 14:11-0500 Diastolic blood pressure 74 mm[Hg] Anthony Lizarraga MD Work Phone: [facility] 03-05-2024 14:11-0500 Heart rate 68 /min Anthony Lizarraga MD Work Phone: [facility] 03-05-2024 14:11-0500 Respiratory rate 18 /min Anthony Lizarraga MD Work Phone: [facility] 03-05-2024 14:11-0500 SaO2% (BldA) [Mass fraction] 97 % Anthony Lizarraga MD Work Phone: [facility] 03-05-2024 14:11-0500 Systolic blood pressure 128 mm[Hg] Anthony Lizarraga MD Work Phone: [facility] 01-29-2024 13:12-0500 Body mass index (BMI) [Ratio] 27.86 kg/m2 Esteban Gabriel [employer]ING IN [employer] FEEDER.[employer] Work Phone: [facility] 01-29-2024 13:12-0500 Body weight 78.3 kg Esteban Gabriel [employer]ING IN [employer] FEEDER.[employer] Work Phone: [facility] 01-29-2024 13:12-0500 Diastolic blood pressure 57 mm[Hg] Esteban Gabriel [employer]ING IN [employer] FEEDER.[employer] Work Phone: [facility] 01-29-2024 13:12-0500 Heart rate 57 /min Esteban Gabriel [employer]ING IN LINE FEEDER.[employer] Work Phone: [facility] 01-29-2024 13:12-0500 Respiratory rate 16 /min Esteban Gabriel CASING IN LINE FEEDER.[employer]KER Work Phone: [facility] 01-29-2024 13:12-0500 Systolic blood pressure 107 mm[Hg] Esteban Gabriel [employer]ING IN LINE FEEDER.[employer] Work Phone: [facility] 11-30-2023 18:27-0400 Diastolic blood pressure 60 mm[Hg] Tiff Pearson MD Work Phone: [facility] 11-30-2023 18:27-0400 Systolic blood pressure 124 mm[Hg] Tiff Pearson MD Work Phone: [facility] 11-30-2023 16:31-0400 Body mass index (BMI) [Ratio] 26.08 kg/m2 Tiff Pearson MD Work Phone: [facility] 11-30-2023 16:31-0400 Body temperature 98.2 [degF] Tiff Pearson MD Work Phone: [facility] 11-30-2023 16:31-0400 Body weight 73.3 kg Tiff Pearson MD Work Phone: [facility] 11-30-2023 16:31-0400 Heart rate 60 /min Tiff Pearson MD Work Phone: [facility] 11-30-2023 16:31-0400 Respiratory rate 16 /min Tiff Pearson MD Work Phone: [facility] 11-30-2023 16:31-0400 SaO2% (BldA) [Mass fraction] 98 % Tiff Pearson MD Work Phone: [facility] 10-02-2023 13:28-0400 Body mass index (BMI) [Ratio] 25.76 kg/m2 Arvind Shani [employer]ING IN [employer]EDER.BASKET PATCHER Work Phone: [facility] 10-02-2023 13:28-0400 Body temperature 98.1 [degF] Arvind Dennislefidencio [employer]ING IN [employer] FEEDER.BASKET PATCHER Work Phone: [facility] 10-02-2023 13:28-0400 Body weight 72.4 kg Arvinddaniela Mcleod [employer]ING IN [employer] FEEDER.BASKET PATCHER Work Phone: [facility] 10-02-2023 13:28-0400 Diastolic blood pressure 70 mm[Hg] Arvind Dennislefidencio [employer]ING IN [employer] FEEDER.BASKET PATCHER Work Phone: [facility] 10-02-2023 13:28-0400 Heart rate 76 /min Arvind Pendcaron [employer]ING IN LINE FEEDER.BASKET PATCHER Work Phone: [facility] 10-02-2023 13:28-0400 Respiratory rate 16 /min Arvind Pendlefidencio [employer]ING IN LINE FEEDER.BASKET PATCHER Work Phone: [facility] 10-02-2023 13:28-0400 SaO2% (BldA) [Mass fraction] 99 % Arvind Mcleod CASING IN LINE FEEDER.BASKET PATCHER Work Phone: [facility] 10-02-2023 13:28-0400 Systolic blood pressure 120 mm[Hg] Arvind Pendlebury [employer]ING IN [employer] FEEDER.BASKET PATCHER Work Phone: [facility] 08-02-2023 13:32-0400 Body mass index (BMI) [Ratio] 26.15 kg/m2 Shawn Yann [employer]ING IN [employer] FEEDER.BASKET PATCHER Work Phone: [facility] 08-02-2023 13:32-0400 Body weight 73.48 kg Shawn Yann [employer]ING IN [employer] FEEDER.BASKET PATCHER Work Phone: [facility] 08-02-2023 13:32-0400 Diastolic blood pressure 60 mm[Hg] Shawn Yann [employer]ING IN [employer] FEEDER.BASKET PATCHER Work Phone: [facility] 08-02-2023 13:32-0400 Heart rate 78 /min Shawn Yann [employer]ING IN [employer] FEEDER.BASKET PATCHER Work Phone: [facility] 08-02-2023 13:32-0400 SaO2% (BldA) [Mass fraction] 95 % Shawn Yann [employer]ING IN LINE FEEDER.BASKET PATCHER Work Phone: [facility] 08-02-2023 13:32-0400 Systolic blood pressure 110 mm[Hg] Shawn Yann [employer]ING IN LINE FEEDER.BASKET PATCHER Work Phone: [facility] 07-03-2023 13:32-0400 Body mass index (BMI) [Ratio] 26.63 kg/m2 Shawn Yann [employer]ING IN [employer] FE[employer]ER.BASKET PATCHER Work Phone: [facility] 07-03-2023 13:32-0400 Body weight 74.84 kg Shawn Yann [employer]ING IN [employer] FEEDER.BASKET PATCHER Work Phone: [facility] 07-03-2023 13:32-0400 Diastolic blood pressure 54 mm[Hg] Shawn Yann [employer]ING IN LINE FEEDER.BASKET PATCHER Work Phone: [facility] 07-03-2023 13:32-0400 Heart rate 83 /min Shawn Yann [employer]ING IN LINE FEEDER.BASKET PATCHER Work Phone: [facility] 07-03-2023 13:32-0400 SaO2% (BldA) [Mass fraction] 94 % Shawn Yann CASING IN LINE FEEDER.BASKET PATCHER Work Phone: [facility] 07-03-2023 13:32-0400 Systolic blood pressure 92 mm[Hg] Shawn Yann CASING IN LINE FEEDER.BASKET PATCHER Work Phone: [facility] 05-20-2023 11:05-0400 Body mass index (BMI) [Ratio] 28.17 kg/m2 Tiff Pearson MD Work Phone: [facility] 05-20-2023 11:05-0400 Body weight 79.15 kg Tiff Pearson MD Work Phone: [facility] 05-20-2023 11:05-0400 Diastolic blood pressure 66 mm[Hg] Tiff Pearson MD Work Phone: [facility] 05-20-2023 11:05-0400 Heart rate 94 /min Tiff Pearson MD Work Phone: [facility] 05-20-2023 11:05-0400 Respiratory rate 18 /min Tiff Pearson MD Work Phone: [facility] 05-20-2023 11:05-0400 SaO2% (BldA) [Mass fraction] 96 % Tiff Pearson MD Work Phone: [facility] 05-20-2023 11:05-0400 Systolic blood pressure 114 mm[Hg] Tiff Pearson MD Work Phone: [facility] 05-11-2023 13:58-0500 Body temperature 97.6 [degF] Dr. Tiff Pearson Work Phone: [facility] 05-11-2023 13:58-0500 Diastolic blood pressure 56 mm[Hg] Dr. Tiff Pearson Work Phone: [facility] 05-11-2023 13:58-0500 Heart rate 91 /min Dr. Tiff Pearson Work Phone: [facility] 05-11-2023 13:58-0500 Respiratory rate 18 /min Dr. Tiff Pearson Work Phone: [facility] 05-11-2023 13:58-0500 Systolic blood pressure 139 mm[Hg] Dr. Tiff Pearson Work Phone: [facility] 05-04-2023 14:17-0500 Heart rate 68 /min Fernanda Prebish CASING IN [employer] FE[employer]ER.BASKET PATCHER Work Phone: [facility] 05-04-2023 14:17-0500 Respiratory rate 18 /min Fernanda Prebish [employer]ING IN [employer] FE[employer]ER.BASKET PATCHER Work Phone: [facility] 05-04-2023 14:17-0500 SaO2% (BldA) [Mass fraction] 97 % Fernanda Prebish [employer]ING IN [employer] FEEDER.BASKET PATCHER Work Phone: [facility] 04-13-2023 17:23-0500 Body temperature 98.4 [degF] Vasyl Flores MD Work Phone: [facility] 04-13-2023 17:23-0500 Body weight 81.33 kg Vasyl Flores MD Work Phone: [facility] 04-13-2023 17:23-0500 Diastolic blood pressure 58 mm[Hg] Vasyl Flores MD Work Phone: [facility] 04-13-2023 17:23-0500 Heart rate 89 /min Vasyl Flores MD Work Phone: [facility] 04-13-2023 17:23-0500 Respiratory rate 20 /min Vasyl Flores MD Work Phone: [facility] 04-13-2023 17:23-0500 SaO2% (BldA) [Mass fraction] 93 % Vasyl Flores MD Work Phone: [facility] 04-13-2023 17:23-0500 Systolic blood pressure 95 mm[Hg] Vasyl Flores MD Work Phone: [facility] 04-08-2023 22:30-0500 Diastolic blood pressure 80 mm[Hg] Dr. Tiff Pearson Work Phone: [facility] 04-08-2023 22:30-0500 Heart rate 96 /min Dr. Tiff Pearson Work Phone: [facility] 04-08-2023 22:30-0500 Respiratory rate 27 /min Dr. Tiff Pearson Work Phone: [facility] 04-08-2023 22:30-0500 Systolic blood pressure 100 mm[Hg] Dr. Tiff Pearson Work Phone: [facility] 04-08-2023 22:20-0500 SaO2% (BldA) [Mass fraction] 93 % Dr. Tiff Pearson Work Phone: [facility] 04-08-2023 17:40-0500 Body height 165.[address] Tiff Pearson Work Phone: [phone] [place] [address] 04-08-2023 17:40-0500 Body mass index (BMI) [Ratio] 30.1 kg/m2 Dr. Tiff Pearson Work Phone: [facility] 04-08-2023 17:40-0500 Body temperature 98.2 [degF] Dr. Tiff Pearson Work Phone: [facility] 04-08-2023 17:40-0500 Body weight 82.[address] Tiff Pearson Work Phone: [facility] 03-27-2023 15:21-0500 Body temperature 98.4 [degF] Tiff Pearson MD Work Phone: [facility] 03-27-2023 15:21-0500 Body weight 79.83 kg Tiff Pearson MD Work Phone: [facility] 03-27-2023 15:21-0500 Diastolic blood pressure 75 mm[Hg] Tiff Pearson MD Work Phone: [facility] 03-27-2023 15:21-0500 Heart rate 91 /min Tiff Pearson MD Work Phone: [facility] 03-27-2023 15:21-0500 Respiratory rate 18 /min Tiff Pearson MD Work Phone: [facility] 03-27-2023 15:21-0500 SaO2% (BldA) [Mass fraction] 99 % Tiff Pearson MD Work Phone: [facility] 03-27-2023 15:21-0500 Systolic blood pressure 117 mm[Hg] Tiff Pearson MD Work Phone: [facility] 02-13-2023 15:50-0500 Body temperature 97.2 [degF] Krislyn Aberegg PA Work Phone: [facility] 02-13-2023 15:50-0500 Body weight 86.18 kg Krislyn Aberegg PA Work Phone: [facility] 02-13-2023 15:50-0500 Diastolic blood pressure 82 mm[Hg] Krislyn Aberegg PA Work Phone: [facility] 02-13-2023 15:50-0500 Heart rate 72 /min Krislyn Aberegg PA Work Phone: [facility] 02-13-2023 15:50-0500 Respiratory rate 16 /min Krislyn Aberegg PA Work Phone: [facility] 02-13-2023 15:50-0500 SaO2% (BldA) [Mass fraction] 97 % Krislyn Aberegg PA Work Phone: [facility] 02-13-2023 15:50-0500 Systolic blood pressure 132 mm[Hg] Krislyn Aberegg PA Work Phone: [facility] 02-08-2023 13:11-0500 Body temperature 99.5 [degF] Shawn Yann [employer]ING [employer]ER.BASKET PATCHER Work Phone: [facility] 02-08-2023 13:11-0500 Body weight 83.46 kg Shawn Yann [employer]ING IN [employer] FE[employer]ER.BASKET PATCHER Work Phone: [facility] 02-08-2023 13:11-0500 Diastolic blood pressure 72 mm[Hg] Shawn Yann [employer]ING IN [employer] FEEDER.BASKET PATCHER Work Phone: [facility] 02-08-2023 13:11-0500 Heart rate 79 /min Shawn Yann [employer]ING IN [employer] FEEDER.BASKET PATCHER Work Phone: [facility] 02-08-2023 13:11-0500 SaO2% (BldA) [Mass fraction] 95 % Shawn Yann [employer]ING IN [employer] FE[employer]ER.BASKET PATCHER Work Phone: [facility] 02-08-2023 13:11-0500 Systolic blood pressure 104 mm[Hg] Shawn Yann [employer]ING IN LINE FEEDER.BASKET PATCHER Work Phone: [facility] 01-12-2023 13:31-0500 Body temperature 98.1 [degF] Annmarie Jonathan CASING IN LINE FEEDER.BASKET PATCHER Work Phone: [facility] 01-12-2023 13:31-0500 Body weight 87.09 kg Annmarie Jonathan [employer]ING IN [employer] FEEDER.BASKET PATCHER Work Phone: [facility] 01-12-2023 13:31-0500 Diastolic blood pressure 61 mm[Hg] Annmarie Jonathan [employer]ING IN LINE FEEDER.BASKET PATCHER Work Phone: [facility] 01-12-2023 13:31-0500 Heart rate 82 /min Annmarie Jonathan [employer]ING IN LINE FEEDER.BASKET PATCHER Work Phone: [facility] 01-12-2023 13:31-0500 Respiratory rate 20 /min Annmarie Jonathan [employer]ING IN LINE FEEDER.BASKET PATCHER Work Phone: [facility] 01-12-2023 13:31-0500 SaO2% (BldA) [Mass fraction] 95 % Annmarie Jonathan CASING IN LINE FEEDER.BASKET PATCHER Work Phone: [facility] 01-12-2023 13:31-0500 Systolic blood pressure 119 mm[Hg] Annmarie Jonathan CASING IN LINE FEEDER.BASKET PATCHER Work Phone: [facility] 01-09-2023 15:14-0500 Body temperature 97.5 [degF] Arvind Mcleod CASING IN LINE FEEDER.BASKET PATCHER Work Phone: [facility] 01-09-2023 15:14-0500 Body weight 87.54 kg Arvind Mcleod CASING IN LINE FEEDER.BASKET PATCHER Work Phone: [facility] 01-09-2023 15:14-0500 Diastolic blood pressure 60 mm[Hg] [facility] LINE FEEDER.BASKET PATCHER Work Phone: [facility] 01-09-2023 15:14-0500 Heart rate 76 /min [facility] CASING IN LINE FEEDER.BASKET PATCHER Work Phone: [facility] 01-09-2023 15:14-0500 Respiratory rate 16 /min [facility] IN LINE FEEDER.BASKET PATCHER Work Phone: [facility] 01-09-2023 15:14-0500 SaO2% (BldA) [Mass fraction] 98 % [facility] CAS[employer] IN LINE FEEDER.BASKET PATCHER Work Phone: [facility] 01-09-2023 15:14-0500 Systolic blood pressure 132 mm[Hg] Avrind Pendlebury CASING IN LINE FEEDER.BASKET PATCHER Work Phone: [facility] 01-08-2023 13:08-0500 Body temperature 97.7 [degF] Jacklyn Athy PA-C Work Phone: [facility] 01-08-2023 13:08-0500 Body weight 88.54 kg Jacklyn Athy PA-C Work Phone: [facility] 01-08-2023 13:08-0500 Diastolic blood pressure 85 mm[Hg] Jacklyn Athy PA-C Work Phone: [facility] 01-08-2023 13:08-0500 Heart rate 75 /min Jacklyn Athy PA-C Work Phone: [facility] 01-08-2023 13:08-0500 Respiratory rate 18 /min Jacklyn Athy PA-C Work Phone: [facility] 01-08-2023 13:08-0500 SaO2% (BldA) [Mass fraction] 94 % Jacklyn Athy PA-C Work Phone: [facility] 01-08-2023 13:08-0500 Systolic blood pressure 140 mm[Hg] Jacklyn Athy PA-C Work Phone: [facility] 11-16-2022 15:11-0400 Body weight 86.64 kg Shawn Yann [employer]ING IN [employer]ER.BASKET PATCHER Work Phone: [facility] 11-16-2022 15:11-0400 Diastolic blood pressure 50 mm[Hg] Shawn Yann [employer]ING IN [employer] FEEDER.BASKET PATCHER Work Phone: [facility] 11-16-2022 15:11-0400 Heart rate 71 /min Shawn Yann [employer]ING IN LINE FEEDER.BASKET PATCHER Work Phone: [facility] 11-16-2022 15:11-0400 SaO2% (BldA) [Mass fraction] 97 % Shawn Yann [employer]ING IN LINE FEEDER.BASKET PATCHER Work Phone: [facility] 11-16-2022 15:11-0400 Systolic blood pressure 100 mm[Hg] Shawn Yann [employer]ING IN LINE FEEDER.BASKET PATCHER Work Phone: [facility] 11-13-2022 15:12-0400 Diastolic blood pressure 69 mm[Hg] [facility] 11-13-2022 15:12-0400 Heart rate 72 /min [facility] 11-13-2022 15:12-0400 Respiratory rate 15 /min [facility] 11-13-2022 15:12-0400 SaO2% (BldA) [Mass fraction] 98 % [facility] 11-13-2022 15:12-0400 Systolic blood pressure 134 mm[Hg] [facility] 11-13-2022 13:25-0400 Body height 167.64 cm [facility] 11-13-2022 13:25-0400 Body temperature 97.7 [degF] [facility] 11-01-2022 11:47-0400 Body temperature 98.4 [degF] Christina Bogner PA-C Work Phone: [facility] 11-01-2022 11:47-0400 Body weight 88.54 kg Christina Bogner PA-C Work Phone: [facility] 11-01-2022 11:47-0400 Diastolic blood pressure 80 mm[Hg] Christina Bogner PA-C Work Phone: [facility] 11-01-2022 11:47-0400 Heart rate 75 /min Christina Bogner PA-C Work Phone: [facility] 11-01-2022 11:47-0400 Respiratory rate 18 /min Christina Bogner PA-C Work Phone: [facility] 11-01-2022 11:47-0400 SaO2% (BldA) [Mass fraction] 93 % Christina Bogner PA-C Work Phone: [facility] 11-01-2022 11:47-0400 Systolic blood pressure 122 mm[Hg] Christina Bogner PA-C Work Phone: [facility] 10-07-2022 11:32-0400 Body temperature 98.1 [degF] Anthony Lizarraga MD Work Phone: [facility] 10-07-2022 11:32-0400 Body weight 88.91 kg Anthony Lizarraga MD Work Phone: [facility] 10-07-2022 11:32-0400 Diastolic blood pressure 76 mm[Hg] Anthony Lizarraga MD Work Phone: [facility] 10-07-2022 11:32-0400 Heart rate 90 /min Anthony Lizarraga MD Work Phone: [facility] 10-07-2022 11:32-0400 Respiratory rate 18 /min Anthony Lizarraga MD Work Phone: [facility] 10-07-2022 11:32-0400 SaO2% (BldA) [Mass fraction] 95 % Anthony Lizarraga MD Work Phone: [facility] 10-07-2022 11:32-0400 Systolic blood pressure 118 mm[Hg] Anthony Lizarraga MD Work Phone: [facility] 06-23-2022 15:52-0400 Body temperature 98.8 [degF] Steve Kenny APRN.CNP Work Phone: [facility] 06-23-2022 15:52-0400 Body weight 88.36 kg Steve Efraín [employer].BASKET PATCHER Work Phone: [facility] 06-23-2022 15:52-0400 Diastolic blood pressure 72 mm[Hg] Steve Kenny [employer]ING IN LINE FEEDER.BASKET PATCHER Work Phone: [facility] 06-23-2022 15:52-0400 Heart rate 84 /min Steve Kenny [employer]ING IN LINE FEEDER.BASKET PATCHER Work Phone: [facility] 06-23-2022 15:52-0400 Respiratory rate 16 /min Steve Kenny [employer]ING IN LINE FEEDER.BASKET PATCHER Work Phone: [facility] 06-23-2022 15:52-0400 SaO2% (BldA) [Mass fraction] 95 % Steve Kenny APRN.BASKET PATCHER Work Phone: [facility] 06-23-2022 15:52-0400 Systolic blood pressure 132 mm[Hg] Steve Kenny APRN.BASKET PATCHER Work Phone: [facility] 06-06-2022 02:48-0400 Body height 167.[address] Tiff Pearson Work Phone: [facility] 06-06-2022 02:48-0400 Body mass index (BMI) [Ratio] 33 kg/m2 Dr. Tiff Pearson Work Phone: [facility] 06-06-2022 02:48-0400 Body temperature 97.5 [degF] Dr. Tiff Pearson Work Phone: [facility] 06-06-2022 02:48-0400 Body weight 92.[address] Tiff Pearson Work Phone: [facility] 06-06-2022 02:48-0400 Diastolic blood pressure 56 mm[Hg] Dr. Tiff Pearson Work Phone: [facility] 06-06-2022 02:48-0400 Heart rate 77 /min [facility]. Tiff Pearson [facility] [facility] 06-06-2022 02:48-0400 Respiratory rate 19 /min Dr. Tiff Pearson Work Phone: [facility] 06-06-2022 02:48-0400 SaO2% (BldA) [Mass fraction] 94 % Dr. Tiff Pearson Work Phone: [facility] 06-06-2022 02:48-0400 Systolic blood pressure 144 mm[Hg] Dr. Tiff Pearson Work Phone: 1(279)779-852961 [place] [address] 06-01-2022 15:50-0400 Body height 165.[address] Tiff Pearson Work Phone: 3(268)566-575838 [place] [address] 06-01-2022 15:50-0400 Body mass index (BMI) [Ratio] 33.4 kg/m2 Dr. Tiff Pearson Work Phone: 1(022)236-277138 [place] [address] 06-01-2022 15:50-0400 Body temperature 98 [degF] Dr. Tiff Pearson Work Phone: 7(747)367-556338 [place] [address] 06-01-2022 15:50-0400 Body weight 91.[address] Tiff Pearson Work Phone: 4(167)664-118438 [place] [address] 06-01-2022 15:50-0400 Diastolic blood pressure 71 mm[Hg] Dr. Tiff Pearson Work Phone: 7(300)896-771638 [place] [address] 06-01-2022 15:50-0400 Heart rate 99 /min Dr. Tiff Pearson Work Phone: 3(773)624-035961 [place] [address] 06-01-2022 15:50-0400 Respiratory rate 18 /min Dr. Tiff Pearson Work Phone: 2(951)949-506661 [place] [address] 06-01-2022 15:50-0400 SaO2% (BldA) [Mass fraction] 77 % Dr. Tiff Pearson Work Phone: 1(669)351-908161 [place] [address] 06-01-2022 15:50-0400 Systolic blood pressure 159 mm[Hg] Dr. Tiff Pearson Work Phone: 8(118)220-771161 [place] [address] 04-30-2022 12:34-0500 Body temperature 99.5 [degF] Jacklyn Athy PA-C Work Phone: [facility] 04-30-2022 12:34-0500 Body weight 86.27 kg Jacklyn Athy PA-C Work Phone: [facility] 04-30-2022 12:34-0500 Diastolic blood pressure 82 mm[Hg] Jacklyn Athy PA-C Work Phone: [facility] 04-30-2022 12:34-0500 Heart rate 84 /min Jacklyn Athy PA-C Work Phone: [facility] 04-30-2022 12:34-0500 Respiratory rate 20 /min Jacklyn Athy PA-C Work Phone: [facility] 04-30-2022 12:34-0500 SaO2% (BldA) [Mass fraction] 96 % Jacklyn Athy PA-C Work Phone: [facility] 04-30-2022 12:34-0500 Systolic blood pressure 128 mm[Hg] Jacklyn Athy PA-C Work Phone: [facility] 03-02-2022 17:17-0500 Body height 165.[address] Tiff Pearson Work Phone: [facility] Work Phone: 03-02-2022 17:17-0500 Body mass index (BMI) [Ratio] 30.4 kg/m2 Dr. Tiff Pearson Work Phone: [facility] 03-02-2022 17:17-0500 Body temperature 97.6 [degF] Dr. Tiff Pearson Work Phone: [facility] 03-02-2022 17:17-0500 Body weight 82.[address] Tiff Pearson Work Phone: [facility] 03-02-2022 17:17-0500 Diastolic blood pressure 56 mm[Hg] Dr. Tiff Pearson Work Phone: [facility] 03-02-2022 17:17-0500 Heart rate 68 /min Dr. Tiff Pearson Work Phone: [facility] 03-02-2022 17:17-0500 Respiratory rate 16 /min Dr. Tiff Pearson Work Phone: [facility] 03-02-2022 17:17-0500 SaO2% (BldA) [Mass fraction] 98 % Dr. Tiff Pearson Work Phone: [facility] 03-02-2022 17:17-0500 Systolic blood pressure 132 mm[Hg] Dr. Tiff Pearson Work Phone: [facility] 01-06-2022 16:03-0400 Body temperature 98.1 [degF] Cathy Lawler APRN.BASKET PATCHER Work Phone: [facility] 01-06-2022 16:03-0400 Body weight 79.38 kg Cathy Lawler APRN.BASKET PATCHER Work Phone: [facility] 01-06-2022 16:03-0400 Diastolic blood pressure 78 mm[Hg] Cathy Lawler APRN.BASKET PATCHER Work Phone: [facility] 01-06-2022 16:03-0400 Heart rate 74 /min Cathy Lawler APRN.BASKET PATCHER Work Phone: [facility] 01-06-2022 16:03-0400 Respiratory rate 16 /min Cathy Lawler APRN.BASKET PATCHER Work Phone: [facility] 01-06-2022 16:03-0400 SaO2% (BldA) [Mass fraction] 97 % Cathy Lawler APRN.BASKET PATCHER Work Phone: [facility] 01-06-2022 16:03-0400 Systolic blood pressure 134 mm[Hg] Cathy Lawler APRN.BASKET PATCHER Work Phone: [facility] 10-26-2021 04:09-0400 Respiratory rate 18 /min [facility] Work Phone: 10-26-2021 02:49-0400 Body height 167.64 cm [facility] Work Phone: 10-26-2021 02:49-0400 Body mass index (BMI) [Ratio] 28.2 kg/m2 [facility] Work Phone: 10-26-2021 02:49-0400 Body temperature 97.8 [degF] [facility] Work Phone: 10-26-2021 02:49-0400 Body weight 79.3 kg [facility] Work Phone: 10-26-2021 02:49-0400 Diastolic blood pressure 89 mm[Hg] [facility] Work Phone: 10-26-2021 02:49-0400 Heart rate 85 /min [facility] Work Phone: 10-26-2021 02:49-0400 SaO2% (BldA) [Mass fraction] 96 % [facility] Work Phone: 10-26-2021 02:49-0400 Systolic blood pressure 153 mm[Hg] [facility] Work Phone: 08-09-2021 13:14-0400 Body temperature 98.1 [degF] Christina Bogner PA-C Work Phone: [facility] 08-09-2021 13:14-0400 Body weight 79.83 kg Christina Bogner PA-C Work Phone: [facility] 08-09-2021 13:14-0400 Diastolic blood pressure 74 mm[Hg] Christina Bogner PA-C Work Phone: [facility] 08-09-2021 13:14-0400 Heart rate 87 /min Christina Bogner PA-C Work Phone: [facility] 08-09-2021 13:14-0400 Respiratory rate 20 /min Christina Bogner PA-C Work Phone: [facility] 08-09-2021 13:14-0400 SaO2% (BldA) [Mass fraction] 93 % Christina Jensen PA-C Work Phone: [facility] 08-09-2021 13:14-0400 Systolic blood pressure 122 mm[Hg] Christina Jensen PA-C Work Phone: [facility] 08-01-2021 10:38-0400 Diastolic blood pressure 47 mm[Hg] Dr. Tiff Pearson Work Phone: [facility] Work Phone: 08-01-2021 10:38-0400 Heart rate 78 /min Dr. Tiff Pearson Work Phone: [facility] Work Phone: 08-01-2021 10:38-0400 Respiratory rate 16 /min Dr. Tiff Pearson Work Phone: [facility] Work Phone: 08-01-2021 10:38-0400 SaO2% (BldA) [Mass fraction] 95 % Dr. Tiff Pearson Work Phone: [facility] Work Phone: 08-01-2021 10:38-0400 Systolic blood pressure 146 mm[Hg] Dr. Tiff Pearson Work Phone: [facility] Work Phone: 08-01-2021 09:55-0400 Body temperature 97.5 [degF] Dr. Tiff Pearson Work Phone: [facility] Work Phone: 08-01-2021 05:10-0400 Body height 167.[address] Tiff Pearson Work Phone: [facility] Work Phone: 08-01-2021 05:10-0400 Body mass index (BMI) [Ratio] 29.2 kg/m2 Dr. Tiff Pearson Work Phone: [facility] Work Phone: 08-01-2021 05:10-0400 Body weight 82.[address] Tiff Pearson Work Phone: [facility] Work Phone: 06-12-2021 14:32-0400 Heart rate 97 /min Dr. Tiff Pearson Work Phone: [facility] Work Phone: 06-12-2021 14:32-0400 Respiratory rate 17 /min Dr. Tiff Pearson Work Phone: [facility] Work Phone: 06-12-2021 14:32-0400 SaO2% (BldA) [Mass fraction] 95 % Dr. Tiff Pearson Work Phone: [facility] Work Phone: 06-12-2021 12:58-0400 Body height 167.[address] Tiff Pearson Work Phone: [facility] Work Phone: 06-12-2021 12:58-0400 Body mass index (BMI) [Ratio] 29.7 kg/m2 Dr. Tiff Pearson Work Phone: [facility] Work Phone: 06-12-2021 12:58-0400 Body temperature 97.5 [degF] Dr. Tiff Pearson Work Phone: [facility] Work Phone: 06-12-2021 12:58-0400 Body weight 83.[address] Tiff Pearson Work Phone: [facility] Work Phone: 06-12-2021 12:58-0400 Diastolic blood pressure 61 mm[Hg] Dr. Tiff Pearson Work Phone: [facility] Work Phone: 06-12-2021 12:58-0400 Systolic blood pressure 114 mm[Hg] Dr. Tiff Pearson Work Phone: [facility] Work Phone: 06-10-2021 20:17-0400 Diastolic blood pressure 65 mm[Hg] Dr. Tiff Pearson Work Phone: [facility] Work Phone: 06-10-2021 20:17-0400 Systolic blood pressure 151 mm[Hg] Dr. Tiff Pearson Work Phone: [facility] Work Phone: 06-10-2021 17:20-0400 Body height 167.[address] Tiff Pearson Work Phone: [facility] Work Phone: 06-10-2021 17:20-0400 Body mass index (BMI) [Ratio] 32.3 kg/m2 Dr. Tiff Pearson Work Phone: [facility] Work Phone: 06-10-2021 17:20-0400 Body temperature 97.3 [degF] Dr. Tiff Pearson Work Phone: [facility] Work Phone: 06-10-2021 17:20-0400 Body weight 90.[address] Tiff Pearson Work Phone: [facility] Work Phone: 06-10-2021 17:20-0400 Heart rate 100 /min Dr. Tiff Pearson Work Phone: [facility] Work Phone: 06-10-2021 17:20-0400 Respiratory rate 18 /min Dr. Tiff Pearson Work Phone: [facility] Work Phone: 06-10-2021 17:20-0400 SaO2% (BldA) [Mass fraction] 98 % Dr. Tiff Pearson Work Phone: [facility] Work Phone: 05-17-2021 02:19-0400 Heart rate 78 /min Dr. Tiff Pearson Work Phone: [facility] Work Phone: 05-17-2021 02:19-0400 Respiratory rate 18 /min Dr. Tiff Pearson Work Phone: [facility] Work Phone: 05-17-2021 02:19-0400 SaO2% (BldA) [Mass fraction] 98 % Dr. Tiff Pearson Work Phone: [facility] Work Phone: 05-16-2021 23:19-0400 Body mass index (BMI) [Ratio] 34.7 kg/m2 Dr. Tiff Pearson Work Phone: [facility] Work Phone: 05-16-2021 23:19-0400 Body temperature 98 [degF] Dr. Tiff Pearson Work Phone: [facility] Work Phone: 05-16-2021 23:19-0400 Body weight 97.[address] Tiff Pearson Work Phone: [facility] Work Phone: 05-16-2021 23:19-0400 Diastolic blood pressure 61 mm[Hg] Dr. Tiff Pearson Work Phone: [facility] Work Phone: 05-16-2021 23:19-0400 Systolic blood pressure 151 mm[Hg] Dr. Tiff Pearson Work Phone: [facility] Work Phone: Encounters Encounter Date Encounter Type Care Provider Facility Start: 11-12-2024 End: 11-12-2024 Office outpatient visit 15 minutes Esteban Gabriel APRN.CNS Work Phone: [facility] [place] Comment on above: Labial lesion (Prima ry Dx); Urinary incontinence, unspecified type Start: 11-12-2024 End: 11-12-2024 ambulatory [facility] Facility:[facility] Start: 11-11-2024 End: 11-11-2024 ambulatory Tiff Pearson MD Work Phone: [facility] [place] Comment on above: Vaginal Problem Start: 11-01-2024 End: 11-01-2024 Patient encounter procedure Suzanna Boris Work Phone: Podiatry Comment on above: Onychomycosis (Prima ry Dx); Pain in toe of right foot; Pain in toe of left foot; Other diabetic neurological complication associated with type 2 diabetes mellitus (HCC); Hallux valgus of left foot; Hallux valgus of right foot Start: 11-01-2024 End: 11-01-2024 ambulatory SUZANNA ESCALANTE Facility:[facility] Start: 10-25-2024 End: 10-25-2024 Refill Tiff Pearson MD Work Phone: [facility] [place] Comment on above: Refill Request Start: 10-14-2024 End: 10-14-2024 Telephone encounter Tiff Pearson MD Work Phone: [facility] [place] Comment on above: Patient Question Start: 10-07-2024 End: 10-07-2024 Refill Tiff Pearson MD Work Phone: [facility] [place] Comment on above: Refill Request Start: 10-03-2024 End: 10-03-2024 Telephone encounter Tiff Pearson MD Work Phone: [facility] [place] Comment on above: Results Start: 09-30-2024 End: 09-30-2024 ambulatory [facility] Facility:[facility] Start: 09-30-2024 End: 09-30-2024 Office outpatient visit 25 minutes Esteban Diops [employer]ING IN LINE FEEDER.METAL MOCKUP MAKER Work Phone: [facility] [place] Comment on above: Diabetic peripheral neuropathy associated with type 2 diabetes mellitus (HCC) (Primary Dx); Fibromyalgia; Chronic, continuous use of opioids; Chronic midline low back pain, unspecified whether sciatica present; Encounter for immunization; Screening for diabetic retinopathy; Encounter for screening for lung cancer; Visual impairment Start: 09-30-2024 End: 09-30-2024 ambulatory [facility] Facility:[facility] Start: 09-30-2024 End: 09-30-[address] Tiff Pearson MD Work Phone: [facility] Start: 09-30-2024 End: 09-30-[address] Braden Londono MD -[facility] Work Phone: Start: 09-27-2024 End: 09-27-2024 Telephone encounter Tiff Pearson MD Work Phone: [facility] [place] Comment on above: Patient Update Start: 09-17-2024 End: 09-27-2024 Telephone encounter Tiff Pearson MD Work Phone: [facility] [place] Comment on above: Medication Problem Start: 09-13-2024 End: 09-13-[address] Tiff Pearson MD Work Phone: [facility] Start: 09-13-2024 End: 09-13-[address] Braden Londono MD [facility] Work Phone: Start: 08-06-2024 End: 08-07-2024 Refill Tiff Pearson MD Work Phone: [facility] [place] Comment on above: Refill Request Start: 07-04-2024 End: 07-19-2024 Refill Tiff Pearson MD Work Phone: [facility] [place] Comment on above: Refill Request Patient Question Start: 06-26-2024 End: 06-26-2024 ambulatory Braden Londono [place] Start: 06-26-2024 End: 06-26-[address] Braden Londono MD -[facility] Work Phone: Start: 06-18-2024 End: 06-18-2024 Refill Tiff Pearson MD Work Phone: [facility] [place] Comment on above: Refill Request Start: 06-06-2024 End: 06-07-2024 Telephone encounter Tiff Pearson MD Work Phone: [facility] [place] Comment on above: Medication Problem Start: 05-30-2024 End: 05-30-2024 Refill Tiff Pearson MD Work Phone: [facility] [place] Comment on above: Refill Request Start: 05-28-2024 End: 05-28-2024 ambulatory SHAWN VERONICA Facility:[facility] Start: 05-28-2024 End: 05-28-2024 Patient encounter procedure Shawn Veronica APRN.BASKET PATCHER Work Phone: [facility] [place] Comment on above: Fibromyalgia (Primar y Dx); Chronic midline low back pain, unspecified whether sciatica present; Chronic, continuous use of opioids; Fistula; Chronic obstructive pulmonary disease, unspecified COPD type ([facility]); Diabetic peripheral neuropathy associated with type 2 diabetes mellitus ([facility]); Type 2 diabetes mellitus without complication, with long-term current use of insulin ([facility]); Iron deficiency anemia, unspecified iron deficiency anemia type; Encounter for therapeutic drug monitoring; Encounter for screening mammogram for breast cancer Start: 05-17-2024 End: 05-21-2024 Refill Tiff Pearson MD Work Phone: [facility] [place] Comment on above: Refill Request Start: 04-29-2024 End: 04-29-2024 ambulatory SUZANNA ESCALANTE Facility:[facility] Start: 04-29-2024 End: 04-29-2024 Patient encounter procedure Suzanna Escalante Work Phone: Podiatry Comment on above: Onychomycosis (Prima ry Dx); Pain in toe of right foot; Pain in toe of left foot; Other diabetic neurological complication associated with type 2 diabetes mellitus (HCC); Hallux valgus of left foot Start: 04-29-2024 End: 04-29-2024 Telephone encounter Tiff Pearson MD Work Phone: [facility] [place] Comment on above: Orders Start: 04-23-2024 End: 04-23-2024 Refill Esteban Gabriel APRN.CNS Work Phone: [facility] [place] Comment on above: Refill Request Start: 04-22-2024 End: 04-22-2024 Telephone encounter Tiff Pearson MD Work Phone: [facility] [place] Comment on above: Nebulizer / supplies problem Start: 04-19-2024 End: 04-22-2024 Refill Tiff Pearson MD Work Phone: [facility] [place] Comment on above: Refill Request Start: 04-17-2024 End: 04-19-2024 Telephone encounter Tiff Pearson MD Work Phone: [facility] [place] Comment on above: Orders Start: 03-27-2024 End: 04-01-2024 Telephone encounter Tiff Pearson MD Work Phone: [facility] [place] Comment on above: Fax for nebulizer josé pplies Start: 03-23-2024 End: 03-23-2024 ambulatory [facility] [place] Start: 03-21-2024 End: 03-25-2024 Refill Tiff Pearson MD Work Phone: [facility] [place] Comment on above: Refill Request Start: 03-15-2024 End: 03-15-2024 Emergency department patient visit CHRISTEL WARNER [facility] Start: 03-14-2024 End: 03-15-2024 Telephone encounter Tiff Pearson MD Work Phone: [facility] [place] Comment on above: Orders Start: 03-06-2024 End: 03-06-2024 ambulatory Cammie Perea RN NURSE DATE NIGHT SITTER Comment on above: Lab & Test Results Start: 03-06-2024 End: 03-06-2024 Telephone encounter Annmarie Castillo APRN.BASKET PATCHER Work Phone: [facility] Start: 03-05-2024 End: 03-05-2024 ambulatory TIFF PEARSON Facility:[facility] Start: 03-05-2024 End: 03-05-2024 Office outpatient visit 15 minutes Anthony Lizarraga MD Work Phone: [facility] Comment on above: URI, acute (Primary Dx) Start: 02-21-2024 End: 02-22-2024 Telephone encounter Tiff Pearson MD Work Phone: [facility] [place] Comment on above: Orders Start: 01-29-2024 End: 01-29-2024 Office outpatient visit 25 minutes Esteban Gabriel APRNWayneMETAL MOCKUP MAKER Work Phone: [facility] [place] Comment on above: Diabetic peripheral neuropathy associated with type 2 diabetes mellitus (HCC) (Primary Dx); Screening for depression; Encounter for screening examination for other mental health and behavioral disorders; Chronic obstructive pulmonary disease, unspecified COPD type (HCC); Encounter for screening for lung cancer; Screening for osteoporosis; Asymptomatic menopause; Hyperlipidemia associated with type 2 diabetes mellitus (HCC) (HCC); Fibromyalgia; Chronic, continuous use of opioids; Chronic midline low back pain, unspecified whether sciatica present; Encounter for immunization Start: 01-29-2024 End: 01-30-2024 Refill Tiff Pearson MD Work Phone: [facility] [place] Comment on above: Refill Request Start: 01-26-2024 End: 01-29-2024 Refill Tiff Pearson MD Work Phone: [facility] [place] Comment on above: Refill Request Start: 01-18-2024 End: 01-29-2024 Telephone encounter Tiff Pearson MD Work Phone: [facility] [place] Comment on above: Patient Question Start: 01-10-2024 End: 01-10-2024 ambulatory TIFF PEARSON Facility:[facility] Start: 01-08-2024 End: 01-08-2024 Telephone encounter Tiff Pearson MD Work Phone: [facility] [place] Comment on above: Patient Question Refill Request Start: 01-05-2024 End: 01-08-2024 Refill Tiff Pearson MD Work Phone: [facility] Comment on above: Refill Request Start: 01-04-2024 End: 01-04-2024 Refill Tiff Pearson MD Work Phone: [facility] [place] Comment on above: Refill Request Start: 12-29-2023 End: 12-29-2023 Refill Esteban Gabriel APRN.METAL MOCKUP MAKER Work Phone: [facility] [place] Comment on above: Refill Request Start: 12-25-2023 End: 12-25-2023 Refill Tiff Pearson MD Work Phone: [facility] [place] Comment on above: Refill Request Start: 12-21-2023 End: 01-03-2024 Telephone encounter Tiff Pearson MD Work Phone: [facility] [place] Start: 12-18-2023 End: 12-19-2023 Telephone encounter Tiff Pearson MD Work Phone: [facility] [place] Comment on above: Medication Request Start: 12-14-2023 End: 12-14-2023 Refill Tiff Pearson MD Work Phone: [facility] [place] Comment on above: Refill Request Start: 12-01-2023 End: 12-03-2023 Telephone encounter Tiff Pearson MD Work Phone: [facility] [place] Comment on above: FYI-No Action Needed Start: 11-30-2023 End: 11-30-2023 Office outpatient visit 40 minutes Tiff Pearson MD Work Phone: [facility] [place] Comment on above: Persistent disorder of initiating or maintaining sleep (Primary Dx); Type 2 diabetes mellitus without complication, with long-term current use of insulin (HCC); Chronic midline low back pain, unspecified whether sciatica present; Hyponatremia; Fibromyalgia; Chronic, continuous use of opioids; Ileostomy in place (HCC); Fecal soiling due to fecal incontinence; Acute cystitis without hematuria Start: 11-30-2023 End: 11-30-2023 Refill Tiff Pearson MD Work Phone: [facility] [place] Comment on above: Refill Request Start: 11-25-2023 End: 11-25-2023 Emergency department patient visit DORYS ORTIZ DELMI [facility] Start: 11-20-2023 End: 11-20-2023 Emergency department patient visit Tiff Pearson Facility:[facility] Start: 11-20-2023 End: 11-29-2023 Refill Tiff Pearson MD Work Phone: [facility] [place] Comment on above: Refill Request Start: 11-16-2023 End: 11-17-2023 Refill Tiff Pearson MD Work Phone: [facility] [place] Comment on above: Refill Request script for xl pull u ps Start: 11-14-2023 End: 11-14-2023 Telephone encounter Tiff Pearson MD Work Phone: [facility] [place] Start: 11-09-2023 End: 11-09-2023 Telephone encounter Tiff Pearson MD Work Phone: [facility] [place] Comment on above: Nucynta PA with new insurance Start: 11-09-2023 End: 11-09-2023 Patient encounter procedure Suzanna Escalante Work Phone: Podiatry Comment on above: Onychomycosis (Prima ry Dx); Pain in toe of right foot; Pain in toe of left foot; Other diabetic neurological complication associated with type 2 diabetes mellitus (HCC); Hallux valgus of left foot Start: 11-07-2023 End: 11-08-2023 Telephone encounter Tiff Pearson MD Work Phone: [facility] [place] Comment on above: patient insurance ch anged this month now needs another gluc Start: 11-05-2023 End: 11-05-2023 Emergency department patient visit Tiff Pearson Facility:[facility] Start: 11-03-2023 End: 11-24-2023 Refill Tiff Pearson MD Work Phone: [facility] [place] Comment on above: Refill Request Start: 10-12-2023 Telephone encounter Tiff kiser MD Work Phone: [facility] [place] Comment on above: Insurance Authorizat ion Start: 10-06-2023 Refill Tiff neely MD Work Phone: [facility] [place] Comment on above: Refill Request Start: 10-02-2023 End: 10-02-2023 Office outpatient visit 15 minutes Arvind Mcleod APRN.BASKET PATCHER Work Phone: [facility] Comment on above: Rash (Primary Dx) Start: 09-13-2023 Refill Tiff neely MD Work Phone: [facility] [place] Comment on above: Refill Request Start: 08-25-2023 End: 08-25-2023 Patient encounter procedure Vasyl Flores MD Work Phone: [facility] [place] Comment on above: Perianal abscess (Pr imary Dx); Anal fissure; Diabetic peripheral neuropathy associated with type 2 diabetes mellitus (HCC) Start: 08-24-2023 End: 08-24-2023 ambulatory Nurse Intm/Famp Triage [facility] Work Phone: Nurse Phone Triage Comment on above: Sore on left butt ch uriah Start: 08-07-2023 Telephone encounter Tiff kiser MD Work Phone: [facility] [place] Comment on above: Results Start: 08-03-2023 Refill Tiff neely MD Work Phone: Internal Medicine [place] Comment on above: Refill Request Order for supplies Start: 08-02-2023 End: 08-02-2023 Patient encounter procedure Shawn Veronica APRN.BASKET PATCHER Work Phone: Internal Medicine [place] Comment on above: Chronic midline low back pain, unspecified whether sciatica present (Primary Dx); Chronic, continuous use of opioids; Fibromyalgia; Encounter for long-term current use of medication; Contact dermatitis due to adhesive bandage; Intermittent asthma without complication, unspecified asthma severity; Perianal irritation; Perianal candidiasis Start: 08-01-2023 Telephone encounter Tiff kiser MD Work Phone: Internal Medicine [place] Start: 07-21-2023 Refill Tiff neely MD Work Phone: Internal Medicine [place] Comment on above: Refill Request Start: 07-20-2023 Refill Tiff neely MD Work Phone: Internal Medicine [place] Comment on above: Refill Request; Futu re Appointment Start: 07-12-2023 ambulatory Tiff neely MD Work Phone: Internal Medicine [facility] [place] Start: 07-10-2023 Refill Tiff neely MD Work Phone: Family Medicine [place] Comment on above: Refill Request Start: 07-06-2023 ambulatory No Pcp CASING IN LINE FEEDER Jaquelin [facility] [place] Start: 07-06-2023 Patient encounter procedure No Pcp CASING IN LINE FEEDER Jaquelin [facility] [place] Start: 07-05-2023 Telephone encounter Tiff kiser MD Work Phone: Internal Medicine [place] Comment on above: Mouth/Lip Problem Start: 07-03-2023 End: 07-03-2023 Patient encounter procedure Shawn Veronica CASING IN LINE FEEDER.BASKET PATCHER Work Phone: Internal Medicine [place] Comment on above: Chronic, continuous use of opioids (Primary Dx); Chronic midline low back pain, unspecified whether sciatica present; Fibromyalgia Refill Request Start: 06-29-2023 Telephone encounter Tiff kiser MD Work Phone: Internal Medicine [place] Comment on above: Medication Request Start: 06-23-2023 Refill Tiff neely MD Work Phone: Internal Medicine [place] Comment on above: Refill Request Start: 06-21-2023 Refill Tiff neely MD Work Phone: Internal Medicine [place] Comment on above: Refill Request Start: 05-23-2023 Refill Tiff neely MD Work Phone: Family Medicine [place] Comment on above: Refill Request Forms ([employer]) Start: 05-20-2023 End: 05-20-2023 Office outpatient visit 25 minutes Tiff Pearson MD Work Phone: Internal Medicine [place] Comment on above: Contact dermatitis d ue to adhesive bandage (Primary Dx); Diabetic peripheral neuropathy associated with type 2 diabetes mellitus (HCC); Chronic, continuous use of opioids; Mixed hyperlipidemia; Encounter for long-term current use of medication Start: 05-16-2023 Telephone encounter Tiff kiser MD Work Phone: Family Medicine [place] Comment on above: Medication Problem Start: 05-11-2023 Non-patient / Non-visit Dr. Sommer Pearson Work Phone: [facility] Start: 05-11-2023 End: 06-04-[address] Tiff Pearson Work Phone: [facility] Work Phone: Start: 05-11-2023 End: 06-04-[address] [facility] Work Phone: Start: 05-05-2023 Telephone encounter Tiff kiser MD Work Phone: Internal Medicine [place] Comment on above: Pain management cons ult Start: 05-05-2023 End: 05-05-[address] Tiff Pearson Work Phone: [facility] Work Phone: Start: 05-04-2023 End: 05-04-2023 ambulatory SELF Facility:[facility] Start: 05-04-2023 End: 05-04-2023 Office outpatient new 45 minutes Fernanda Rosenbaum APRN.CNP Work Phone: [facility] Comment on above: Fibromyalgia (Primar y Dx) Start: 05-03-2023 Telephone encounter Tiff kiser MD Work Phone: Internal Medicine [place] Comment on above: Patient Question Start: 04-27-2023 Telephone encounter Dhruv Govea MD Work Phone: [facility] [place] Comment on above: Returning Patient's Call Patient Question Start: 04-26-2023 Refill Tiff neely MD Work Phone: Internal Medicine [place] Comment on above: Refill Request Start: 04-25-2023 Telephone encounter Dhruv Govea MD Work Phone: [facility] [place] Comment on above: Returning Patient's Call Start: 04-19-2023 ambulatory [facility] [place] Comment on above: Population Health Na vigation Outreach (Mail) Start: 04-17-2023 Telephone encounter Tiff kiser MD Work Phone: Internal Medicine [place] Comment on above: no pain medication u rine test not back yet Refill Request Start: 04-13-2023 End: 04-13-2023 Patient encounter procedure Vasyl Flores MD Work Phone: Internal Medicine [place] Comment on above: Costochondritis (Kely elizabeth Dx); Anemia, unspecified type; Diabetic peripheral neuropathy associated with type 2 diabetes mellitus (HCC) Start: 04-13-2023 Telephone encounter Tiff kiser MD Work Phone: Internal Medicine [place] Comment on above: Patient Update; Lorena ent Request Start: 04-12-2023 Refill Tiff neely MD Work Phone: Internal Medicine [place] Comment on above: Refill Request Start: 04-08-2023 End: 04-08-2023 Emergency department patient visit Dr. Tiff Pearson Work Phone: [facility] Work Phone: Start: 03-31-2023 Telephone encounter Tiff kiser MD Work Phone: Internal Medicine [place] Comment on above: Results Start: 03-29-2023 Telephone encounter Tiff kiser MD Work Phone: Internal Medicine [place] Comment on above: Results Start: 03-27-2023 End: 03-27-2023 Office outpatient visit 25 minutes Tiff Pearson MD Work Phone: Internal Medicine [place] Comment on above: Perianal irritation (Primary Dx); Contact dermatitis due to adhesive bandage; Chronic, continuous use of opioids; Perianal fistula; Encounter for long-term current use of medication Start: 03-23-2023 End: 03-23-[address] Tiff Pearson Work Phone: [facility] Work Phone: Start: 02-13-2023 End: 02-13-2023 Subsequent hospital visit by physician Mikel [facility] [place] Work Phone: Radiology Comment on above: Subacute cough [R05. 2] Start: 02-13-2023 End: 02-13-2023 Patient encounter procedure Orestes RUVALCABA Work Phone: [facility] Comment on above: Subacute cough (Prim lucio Dx) Start: 02-10-2023 Telephone encounter Tiff kiser MD Work Phone: Internal Medicine [place] Comment on above: Forms ([employer]-orde r form for ostomy supplies) Start: 02-08-2023 End: 02-08-2023 Patient encounter procedure Shawn Veronica APRN.BASKET PATCHER Work Phone: Internal Medicine [place] Comment on above: Abscess (Primary Dx) Start: 02-03-2023 Refill Tiff neely MD Work Phone: Internal Medicine [place] Comment on above: Refill Request Start: 01-17-2023 Telephone encounter Tiff kiser MD Work Phone: Internal Medicine [place] Comment on above: Patient Question Start: 01-12-2023 End: 01-12-2023 Patient encounter procedure Annmarie Castillo APRN.BASKET PATCHER Work Phone: [facility] Comment on above: URI with cough and c ongestion (Primary Dx) Start: 01-10-2023 Telephone encounter Arvind suresh APRN.BASKET PATCHER Work Phone: [facility] Comment on above: Results Start: 01-09-2023 End: 01-09-2023 Office outpatient visit 15 minutes Arvind Mcleod APRN.BASKET PATCHER Work Phone: [facility] Comment on above: Viral illness (Prima ry Dx) Start: 01-09-2023 End: 01-09-2023 Refill Tiff Pearson MD Work Phone: Internal Medicine [place] Comment on above: Refill Request Paronychia of finger , left [L03.012] Start: 01-08-2023 End: 01-08-2023 Patient encounter procedure Jacklyn Freitas PA-C Work Phone: [facility] Comment on above: Paronychia of finger , left (Primary Dx) Start: 01-04-2023 Telephone encounter Tiff kiser MD Work Phone: Internal Medicine [place] Comment on above: Question Start: 01-03-2023 Refill Shawn Veronica APRN.BASKET PATCHER Work Phone: Internal Medicine [place] Comment on above: Refill Request Start: 12-22-2022 End: 12-22-2022 Patient encounter procedure Suzanna Escalante Work Phone: Podiatry Comment on above: Onychomycosis (Prima ry Dx); Pain in toe of right foot; Pain in toe of left foot; Other diabetic neurological complication associated with type 2 diabetes mellitus (HCC) Start: 11-23-2022 Refill Tiff neely MD Work Phone: Internal Medicine [place] Comment on above: Refill Request Start: 11-18-2022 Refill Tiff neely MD Work Phone: Internal Medicine [place] Comment on above: Refill Request Lab & Test Results Start: 11-16-2022 End: 11-16-2022 Patient encounter procedure Shawn Veronica APRN.BASKET PATCHER Work Phone: Internal Medicine [place] Comment on above: Left hip pain (Prima ry Dx); Pharyngitis, unspecified etiology; BV (bacterial vaginosis); Dysuria; Anal fissure Start: 11-13-2022 End: 11-13-2022 Emergency department patient visit [facility] Work Phone: Start: 11-01-2022 End: 11-01-2022 Subsequent hospital visit by physician [facility] Work Phone: Radiology Comment on above: Wheezing [R06.2] Start: 11-01-2022 End: 11-01-2022 Office outpatient visit 25 minutes Christina Jensen PA-C Work Phone: [facility] Comment on above: Wheezing (Primary Dx ); Acute cough; Chronic obstructive pulmonary disease, unspecified COPD type (HCC); Asthma with COPD with exacerbation (HCC) Start: 10-24-2022 Refill Tiff neely MD Work Phone: Internal Medicine [place] Comment on above: Refill Request Start: 10-08-2022 Telephone encounter Annmarie Castillo APRN.CNP Work Phone: [facility] Comment on above: Results Start: 10-07-2022 End: 10-07-2022 Patient encounter procedure Anthony Lizarraga MD Work Phone: [facility] Comment on above: Sore throat (Primary Dx) Start: 09-21-2022 End: 09-21-2022 Patient encounter procedure Suzanna Escalante Work Phone: Podiatry Comment on above: Onychomycosis (Prima ry Dx); Pain in toe of right foot; Pain in toe of left foot; Other diabetic neurological complication associated with type 2 diabetes mellitus (HCC) Start: 08-23-2022 Refill Tiff neely MD Work Phone: Family Medicine [place] Comment on above: Refill Request Start: 07-20-2022 Telephone encounter Tiff kiser MD Work Phone: Internal Medicine [place] Comment on above: Rx refill; dosage qu estion Start: 07-06-2022 Telephone encounter Dhruv Govea MD Work Phone: [facility] [place] Comment on above: New Patient Pain Management Refe rral Start: 06-29-2022 Telephone encounter Shawn Cleav er CASING IN LINE FEEDER.BASKET PATCHER Work Phone: Internal Medicine [place] Comment on above: Results Start: 06-29-2022 End: 06-29-[address] Tiff Pearson Work Phone: [facility] Work Phone: Start: 06-29-2022 End: 06-29-[address] Tiff Pearson Work Phone: [facility] Start: 06-28-2022 Telephone encounter Tiff kiser MD Work Phone: Internal Medicine [place] Comment on above: Question Start: 06-28-2022 End: 06-28-2022 Subsequent hospital visit by physician Xr [facility] [place] Work Phone: Radiology Comment on above: Groin pain, right [R 10.31] Start: 06-25-2022 Telephone encounter Orestes RUVALCABA Work Phone: [facility] Comment on above: Results Start: 06-23-2022 End: 06-23-2022 Patient encounter procedure Setve Efraín CASING IN LINE FEEDER.BASKET PATCHER Work Phone: [facility] Comment on above: Burning with urinati on (Primary Dx); Acute right ankle pain; Rash Start: 06-13-2022 Telephone encounter Tiff kiser MD Work Phone: Internal Medicine [place] Comment on above: Counseling Center re questing records Start: 06-11-2022 Refill Shawn Veronica CASING IN LINE FEEDER.BASKET PATCHER Work Phone: Internal Medicine [place] Comment on above: Refill Request Start: 06-09-2022 Refill Tiff neely MD Work Phone: Internal Medicine [place] Comment on above: Refill Request Start: 06-07-2022 Telephone encounter Tiff kiser MD Work Phone: Internal Medicine [place] Comment on above: Patient Update Start: 06-06-2022 End: 06-06-2022 Emergency department patient visit Dr. Tiff Pearson Work Phone: [facility] Start: 06-01-2022 End: 06-01-2022 Emergency department patient visit Dr. Tiff Pearson Work Phone: [facility] Start: 05-31-2022 End: 05-31-2022 Patient encounter procedure Suzanna Escalante Work Phone: Podiatry Comment on above: Onychomycosis (Prima ry Dx); Pain in toe of right foot; Pain in toe of left foot; Other diabetic neurological complication associated with type 2 diabetes mellitus (HCC) Start: 05-27-2022 Refill Tiff neely MD Work Phone: Internal Medicine [place] Comment on above: Refill Request Start: 04-30-2022 End: 04-30-2022 Patient encounter procedure Jacklyn Freitas PA-C Work Phone: [facility] Comment on above: COPD (chronic obstru ctive pulmonary disease) with acute bronchitis (HCC) (Primary Dx) Start: 04-26-2022 Refill Tiff neely MD Work Phone: Internal Medicine [place] Comment on above: Refill Request Start: 03-30-2022 End: 03-30-[address] Tiff Pearson Work Phone: [facility] Start: 03-29-2022 End: 03-29-2022 Non-patient / Non-visit Dr. Tiff Pearson Work Phone: [facility] Start: 03-02-2022 End: 03-02-2022 Emergency department patient visit Dr. Tiff Pearson Work Phone: [facility] Start: 01-06-2022 End: 01-06-2022 Patient encounter procedure Cathy Lawler APRN.CNP Work Phone: [facility] Comment on above: Mouth sore (Primary Dx) Start: 01-06-2022 ambulatory Sohan Parrish RN NURSE DATE NIGHT SITTER Comment on above: Medication Question Start: 12-30-2021 End: 12-30-[address] Tiff Pearson Work Phone: [facility] Start: 12-28-2021 Refill Tiff neely MD Work Phone: Internal Medicine [place] Comment on above: Refill Request Start: 11-18-2021 End: 11-18-[address] Tiff Pearson Work Phone: [facility] Start: 10-28-2021 End: 10-28-2021 Patient encounter procedure Suzanna Boris Work Phone: Podiatry Comment on above: Onychomycosis (Prima ry Dx); Pain in toe of right foot; Pain in toe of left foot; Other diabetic neurological complication associated with type 2 diabetes mellitus (HCC); Hammer toe of left foot; Venous insufficiency Start: 10-26-2021 End: 10-26-2021 Emergency department patient visit [facility] Start: 10-14-2021 Refill Tiff neely MD Work Phone: Internal Medicine [place] Comment on above: Refill Request Start: 10-13-2021 Refill Tiff neely MD Work Phone: Internal Medicine [place] Comment on above: Refill Request Start: 09-01-2021 ambulatory Fernanda Yoo RN IND [facility] Comment on above: Community Monitoring Outreach (Acute bronchitis with COPD Enrollment ) Start: 09-01-2021 Follow-up encounter Fernanda Yoo RN [employer] Comment on above: Transition Of Care ( TCM follow-up) Start: 08-30-2021 Refill Tiff neely MD Work Phone: Internal Medicine [place] Comment on above: Refill Request Start: 08-23-2021 ambulatory Fernanda Yoo RN IND [employer] Start: 08-23-2021 Follow-up encounter Fernanda Yoo RN [employer]ological [employer] Comment on above: Transition Of Care ( TCM follow-up) Start: 08-18-2021 Telephone encounter Ousmane membreno APRN.BASKET PATCHER Work Phone: Family [facility] [place] Comment on above: Results Start: 08-17-2021 End: 08-17-2021 Subsequent hospital visit by physician Xr [facility] [place] Work Phone: Radiology Comment on above: Sinobronchitis [J32. 9, J40] Start: 08-17-2021 End: 08-17-2021 ambulatory Ousmane Smith VIRIDIANA.BASKET PATCHER Work Phone: Family [facility] [place] Comment on above: Sinobronchitis (Prim lucio Dx) Start: 08-17-2021 End: 08-17-2021 Telemedicine consultation with patient Ousmane Smith VIRIDIANA.BASKET PATCHER Work Phone: [facility] [place] Start: 08-14-2021 Telephone encounter Tiff kiser MD Work Phone: Internal Medicine [place] Comment on above: requesting a new neb ulizer Start: 08-10-2021 Telephone encounter Cathy Lawler APRN.BASKET PATCHER Work Phone: [facility] Comment on above: Results Start: 08-09-2021 End: 08-09-2021 Office outpatient visit 15 minutes Christina Jensen PA-C Work Phone: [facility] Comment on above: Cough (Primary Dx); Intermittent asthma without complication, unspecified asthma severity Start: 08-08-2021 End: 08-08-2021 Emergency department patient visit Dr. 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); Endogenous endophthalmitis Transition Of Care ( [facility] Pharmacist hospital discharge 08/05) Start: 08-04-2021 Refill Tiff neely MD Work Phone: Internal Medicine [place] Comment on above: Refill Request Start: 08-03-2021 End: 08-03-2021 Patient encounter procedure Lisbeth Coulter MD Work Phone: Ophthalmology Comment on above: 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 Start: 07-20-2021 Refill Tiff neely MD Work Phone: Family Medicine [place] Comment on above: Refill Request Start: 06-25-2021 Refill Tiff neely MD Work Phone: Internal Medicine [place] Comment on above: Refill Request FYI-No Action Needed Start: 06-23-2021 Telephone encounter Tiff kiser MD Work Phone: Internal [facility] Comment on above: Refill Request Start: 06-15-2021 Refill Tiff neely MD Work Phone: Internal [facility] Comment on above: Refill Request Start: 06-12-2021 End: 06-12-2021 Emergency department patient [facility]iff [facility] Start: 06-10-2021 End: 06-10-2021 Emergency department patient [facility]iff [facility] Start: 06-07-2021 Telephone encounter Artem hernandez MD Work Phone: General Surgery Comment on above: Patient Question (re ctal bleeding) Start: 06-02-2021 End: 06-02-[address] Tiff Pearson Work Phone: [facility] Start: 05-31-2021 End: 05-31-2021 Patient encounter procedure Artem Hunter MD Work Phone: General Surgery Comment on above: Anal cellulitis (Kely elizabeth Dx); Anal fissure Start: 05-27-2021 Telephone encounter Tiff kiser MD Work Phone: Internal Medicine [place] Comment on above: Medication Problem Start: 05-16-2021 End: 05-17-2021 Emergency department patient visit Dr. Tiff Pearson Work Phone: [facility] Start: 03-09-2021 End: 03-09-[address] Tiff Pearson Work Phone: [facility] Start: 10-31-[address] Harry Pearson Work Phone: [facility] Start: 11-14-2006 End: 02-25-2013 Patient encounter status Tiff Pearson MD Work Phone: [facility] Procedures Date Procedure Procedure Detail Performing Clinician Start: 01-29-2024 Adult depression scr eening assessment Tiff Pearson MD Work Phone: Start: 11-25-2023 Urinalysis DORYS Pretty Comment on above: Result Comment: URIN ALYSIS Performed By: #### [id number] #### [facility],[address] [place] [address] Start: 04-08-2023 Plain chest X-ray Dr. Harry Pearson Work Phone: Start: 03-27-2023 Drug tst prsmv instr mnt chem analyzers pr date Tiff Pearson MD Work Phone: Start: 03-27-2023 PAIN PANEL, UR QUANT Li enriqueta Pearson MD Work Phone: Start: 03-27-2023 SPECIMEN VALIDITY, URINE Tiff Pearson MD Work Phone: Start: 02-13-2023 Radiologic exam ches t 2 views Orestes Warren PA Work Phone: Start: 01-12-2023 COVID & INFLUENZA A/ B & RSV NAAT, ROUTINE Annmarie Castillo CASING IN LINE FEEDER.[facility] Work Phone: Start: 01-09-2023 COVID & INFLUENZA A/ B & RSV NAAT, ROUTINE Arvind Shani CASING IN LINE FEEDER.[facility] Work Phone: Start: 01-09-2023 Iadna respiratry pro be & rev trnscr 3-5 targets Arvind Dennisfidencio CASING IN LINE FEEDER.BASKET PATCHER Work Phone: Start: 01-09-2023 Sars-cov-2 detection by dna/rna [facility] LINE FEEDER.BASKET PATCHER Work Phone: Start: 01-09-2023 Radex fingr minimum 2 views Jacklyn Freitas PA-C Work Phone: Start: 01-08-2023 Cul bact xcpt urine blood/stool aerobic isol Jacklyn Freitas PA-C Work Phone: Start: 11-13-2022 Plain x-ray of pelvi s and lower extremity Start: 11-01-2022 Radiologic exam ches t 2 views Christina Jensen PA-C Work Phone: Start: 06-28-2022 Radex hip unilateral with pelvis 2-3 views Tiff Pearson MD Work Phone: Start: 06-23-2022 Urnls dip stick/tabl et rgnt auto w/o microscopy Cathy Lawler CASING IN LINE FEEDER.BASKET PATCHER Work Phone: Start: 03-02-2022 Plain x-ray of hand Dr. Tiff Pearson Work Phone: Start: 08-17-2021 Radiologic exam ches t 2 views Ousmane Smith CASING IN LINE FEEDER.BASKET PATCHER Work Phone: Start: 08-06-2021 Xtrnl ocular photog w/i&r docmt medical progre Marisol Fry MD Work Phone: Start: 08-03-2021 Ophthalmic ultrasoun d dx b-scan w/wo a-scan Marisol Fry MD Work Phone: Start: 06-10-2021 Computed tomography of abdomen and pelvis with intravenous contrast Dr. Tiff Pearson Work Phone: Start: 01-24-2018 Adult depression scr eening assessment Artem Hunter MD Work Phone: Start: 11-20-2014 Mammography Artem devi MD Work Phone: Start: 03-06-1999 Colonoscopy Artem devi MD Work Phone: Plan of Treatment Date Care Activity Detail Author Start: 11-12-2025 Annual PCP Team Straight Line Press Setter akash Disease Visit Annual PCP Team Chronic Disease Visit [facility] Start: 11-01-2025 Diabetic foot examination Diabetic Foot Exam [facility] Start: 09-30-2025 Annual PCP Team Straight Line Press Setter akash Disease Visit Annual PCP Team Chronic Disease Visit [facility] Start: 09-30-2025 Hepatitis B screening Urine Al bumin:Creatinine Ratio [facility] Start: 09-30-2025 Hepatitis B surface antibody level LDL Cholesterol [facility] Start: 05-28-2025 Annual PCP Team Straight Line Press Setter akash Disease Visit Annual PCP Team Chronic Disease Visit [facility] Start: 04-02-2025 Hemoglobin A1c measurement HbA1C [facility] Start: 02-12-2025 End: 02-12-2025 Patient encounter procedure 02/12/2025 2:40 PM EST Office Visit Internal Medicine [place] [address] [place], [place] [id number] Tiff Pearson MD [address] [place], [place] [id number] 3 month medication follow up Internal Medicine [place] Comment on above: 3 month medication f ollow up Start: 02-06-2025 End: 02-06-2025 Patient encounter procedure 02/06/2025 1:30 PM EST Office Visit Podiatry [address] [place], [place] [id number] Suzanna Escalante [address] [place], [place] [id number] 3 month follow up nail care Podiatry Comment on above: 3 month follow up na il care Start: 01-28-2025 Anxiety Screening Anxiety Screening [facility] Start: 01-28-2025 Depression Screening Depression Scre ening [facility] Start: 12-31-2024 End: 12-31-2024 Patient encounter procedure Mammogram Comment on above: Encounter for screen ing mammogram for breast cancer [Z12.31] Medicare Start: 11-29-2024 Annual PCP Team Straight Line Press Setter akash Disease Visit Annual PCP Team Chronic Disease Visit [facility] Start: 11-12-2024 End: 11-12-2024 Patient encounter procedure 11/12/2024 12:00 PM EDT Office Visit Internal Medicine Dariel [address] [place] [address] Esteban Gabriel APRN.METAL MOCKUP MAKER [address] [place] [address] Vaginal Sore; see Nurse Triage Internal Medicine [facility] Comment on above: Vaginal Sore; see Nu rse Triage Start: 2024 Influenza vaccination Influenza Vacc ine (#1) [facility] Start: 11-01-2024 End: 11-01-2024 Patient encounter procedure 11/01/2024 2:40 PM EDT Office Visit Podiatry [address] [place] [address] Suzanna Escalante [address] [place] [address] 3 month follow up Podiatry Comment on above: 3 month follow up Start: 10-30-2024 End: 10-30-2024 Patient encounter procedure 10/30/2024 1:00 PM EDT Office Visit Internal Medicine Mittie [address] [place] [address] Shawn Veronica APRN.BASKET PATCHER [address] [place] [address] 3 month medication follow up Internal Medicine Mittie Comment on above: 3 month medication f ollow up Start: 10-28-2024 End: 10-28-2024 Patient encounter procedure 10/28/2024 1:00 PM EDT Office Visit Pulmonary Medicine [address] [place] [address] Mendy Sargent APRN.BASKET PATCHER [address] [place] [address] Encounter for screening for lung cancer [Z12.2] Pulmonary Medicine Comment on above: Encounter for screen ing for lung cancer [Z12.2] Start: 09-30-2024 End: 12-30-2024 Hemoglobin A1c in Blood [facility] Comment on above: Expected: 09/30/2024 , Expires: 12/30/2024 Start: 09-30-2024 End: 12-30-2024 Microalbumin/Creatinine [Mass Ratio] in Urine [facility] Work Phone: Comment on above: Expected: 09/30/2024 , Expires: 12/30/2024 Start: 09-30-2024 End: 09-30-2024 Patient encounter procedure 09/30/2024 1:20 PM EDT Office Visit Internal Medicine Mittie [address] [place] [address] Esteban Gabriel APRN.METAL MOCKUP MAKER [address] [place] [address] 3 month medication follow up Internal Medicine Dariel Comment on above: 3 month medication f ollow up Start: 08-24-2024 Annual PCP Team Straight Line Press Setter akash Disease Visit Annual PCP Team Chronic Disease Visit [facility] Start: 08-07-2024 End: 08-07-2024 Patient encounter procedure 08/07/2024 1:20 PM EDT Office Visit Internal Medicine Mittie [address] [place] [address] Shawn Veronica APRN.BASKET PATCHER [address] [place], [place] [address] 3 month follow up Internal Medicine Dariel Comment on above: 3 month follow up Start: 08-01-2024 Annual PCP Team Straight Line Press Setter akash Disease Visit Annual PCP Team Chronic Disease Visit [facility] Start: 08-01-2024 Hepatitis B surface antibody level LDL Cholesterol [facility] Start: 07-30-2024 End: 07-30-2024 Patient encounter procedure Podiatry Comment on above: 3 month follow up Start: 07-23-2024 End: 07-23-2024 Patient encounter procedure 07/23/2024 2:00 PM EDT Office Visit Internal Medicine Mitt[facility] [address] [place] [address] Esteban Gabriel APRN.METAL MOCKUP MAKER [address] [place] [address] 3 month f/u Internal Medicine Dariel Comment on above: 3 month f/u Start: 07-09-2024 Hemoglobin A1c measurement HbA1C [facility] Start: 07-02-2024 Annual PCP Team Straight Line Press Setter akash Disease Visit Annual PCP Team Chronic Disease Visit [facility] Start: 05-31-2024 End: 05-31-2024 Patient encounter procedure 05/31/2024 1:40 PM EDT Office Visit Podiatry [address] [place] [address] Suzanna Escalante [address] [address] 3 month follow up Podiatry Comment on above: 3 month follow up Start: 05-28-2024 End: 05-28-2024 Patient encounter procedure 05/28/2024 3:00 PM EDT Office Visit Internal Medicine Dariel [address] [place] [address] Shawn Veronica APRN.BASKET PATCHER [address] [place] [address] 3 month follow up Internal Medicine Mittie Comment on above: 3 month follow up Start: 05-28-2024 End: 08-27-2024 Alpha 1 antitrypsin [Mass/volume] in Serum or Plasma [id number] Lab Routine Chronic obstructive pulmonary disease, unspecified COPD type (HCC) Expected: 05/28/2024, Expires: 08/27/2024 [facility] Comment on above: Expected: 05/28/2024 , Expires: 08/27/2024 Start: 05-28-2024 End: 08-27-2024 CBC W Auto Differential panel - Blood COMPLETE BLOOD COUNT AND DIFFERENTIAL Lab Routine Encounter for therapeutic drug monitoring Expected: 05/28/2024, Expires: 08/27/2024 [facility] Comment on above: Expected: 05/28/2024 , Expires: 08/27/2024 Start: 05-28-2024 End: 08-27-2024 Comprehensive metabolic 2000 panel - Serum or Plasma COMPREHENSIVE METABOLIC PANEL Lab Routine Encounter for therapeutic drug monitoring Expected: 05/28/2024, Expires: 08/27/2024 [facility] Comment on above: Expected: 05/28/2024 , Expires: 08/27/2024 Start: 05-28-2024 End: 08-27-2024 Ferritin [Mass/volume] in Serum or Plasma FERRITIN Lab Routine Iron deficiency anemia, unspecified iron deficiency anemia type Expected: 05/28/2024, Expires: 08/27/2024 [facility] Comment on above: Expected: 05/28/2024 , Expires: 08/27/2024 Start: 05-28-2024 End: 08-27-2024 Hemoglobin A1c in Blood HEMOGLOBIN A1C Lab Routine Type 2 diabetes mellitus without complication, with long-term current use of insulin (HCC) Expected: 05/28/2024, Expires: 08/27/2024 [facility] Comment on above: Expected: 05/28/2024 , Expires: 08/27/2024 Start: 05-28-2024 End: 08-27-2024 Iron and Iron binding capacity panel - Serum or Plasma IRON AND TIBC Lab Routine Iron deficiency anemia, unspecified iron deficiency anemia type Expected: 05/28/2024, Expires: 08/27/2024 [facility] Comment on above: Expected: 05/28/2024 , Expires: 08/27/2024 Start: 05-28-2024 End: 08-27-2024 Microalbumin/Creatinine [Mass Ratio] in Urine ALBUMIN/CREATININE RATIO, URINE Lab Routine Diabetic peripheral neuropathy associated with type 2 diabetes mellitus (HCC) Type 2 diabetes mellitus without complication, with long-term current use of insulin (HCC) Expected: 05/28/2024, Expires: 08/27/2024 [facility] Comment on above: Expected: 05/28/2024 , Expires: 08/27/2024 Start: 05-28-2024 End: 08-27-2024 TOXICOLOGY SCREEN, ROUTINE URINE TOXICOLOGY SCREEN, ROUTINE URINE Lab Routine Chronic, continuous use of opioids Encounter for therapeutic drug monitoring Expected: 05/28/2024, Expires: 08/27/2024 [facility] Comment on above: Expected: 05/28/2024 , Expires: 08/27/2024 Start: 05-19-2024 Annual PCP Team Straight Line Press Setter akash Disease Visit Annual PCP Team Chronic Disease Visit [facility] Start: 05-01-2024 End: 05-01-2024 Patient encounter procedure 05/01/2024 2:20 PM EST Office Visit Internal Medicine Dariel [address] [place] [address] Tiff Pearson MD [address] [place] [address] 3 month f/u Internal Medicine Mittie Comment on above: 3 month f/u Start: 04-30-2024 End: 07-30-2024 Alpha 1 antitrypsin [Mass/volume] in Serum or Plasma [id number] Lab Routine Chronic obstructive pulmonary disease, unspecified COPD type (HCC) Expected: 04/30/2024 (Approximate), Expires: 07/30/2024 [facility] Comment on above: Expected: 04/30/2024 (Approximate), Expires: 07/30/2024 Start: 04-29-2024 End: 04-29-2024 Patient encounter procedure 04/29/2024 2:15 PM EST Office Visit Podiatry [address] [place] [address] Suzanna Escalante [address] [id number] 3 month follow up Podiatry Comment on above: 3 month follow up Start: 04-13-2024 Annual PCP Team Straight Line Press Setter akash Disease Visit Annual PCP Team Chronic Disease Visit [facility] Start: 04-04-2024 End: 04-04-2024 Patient encounter procedure 04/04/2024 2:15 PM EST Appointment Radiology [address] [place] [address] Screening for osteoporosis [Z13.820]; Asymptomatic menopause [Z78.0] Radiology Comment on above: Screening for osteop orosis [Z13.820]; Asymptomatic menopause [Z78.0] Start: 03-27-2024 Annual PCP Team Straight Line Press Setter akash Disease Visit Annual PCP Team Chronic Disease Visit [facility] Start: 03-10-2024 Glaucoma screening Dilated Retinal E xam [facility] Start: 03-06-2024 Advance Directive Discussion Advance Directive Discussion [facility] Start: 03-06-2024 Medicare Advantage Annual Wellness Visit Medicare Advantage Annual Wellness Visit [facility] Start: 02-09-2024 Annual PCP Team Straight Line Press Setter akash Disease Visit Annual PCP Team Chronic Disease Visit [facility] Start: 02-02-2024 Hemoglobin A1c measurement HbA1C [facility] Start: 01-29-2024 End: 04-29-2024 Microalbumin/Creatinine [Mass Ratio] in Urine ALBUMIN/CREATININE RATIO, URINE Lab Routine Diabetic peripheral neuropathy associated with type 2 diabetes mellitus (HCC) Expected: 01/29/2024, Expires: 04/29/2024 [facility] Work Phone: Comment on above: Expected: 01/29/2024 , Expires: 04/29/2024 Start: 01-10-2024 End: 01-10-2024 Patient encounter procedure 01/10/2024 1:40 PM EST Office Visit Internal Medicine [address] [id number] Shawn Veronica APRN.BASKET PATCHER [address] [place] [address] med follow up Internal Medicine Mittie Comment on above: med follow up Start: 01-01-2024 End: 02-09-2024 CBC panel - Blood by Automated count COMPLETE BLOOD COUNT Lab Routine Microcytic anemia Expected: 01/01/2024 (Approximate), Expires: 02/09/2024 [facility] Comment on above: Expected: 01/01/2024 (Approximate), Expires: 02/09/2024 Start: 01-01-2024 End: 02-09-2024 Comprehensive metabolic 2000 panel - Serum or Plasma COMPREHENSIVE METABOLIC PANEL Lab Routine Hypoalbuminemia Type 2 diabetes mellitus without complication, with long-term current use of insulin (HCC) Expected: 01/01/2024 (Approximate), Expires: 02/09/2024 [facility] Comment on above: Expected: 01/01/2024 (Approximate), Expires: 02/09/2024 Start: 01-01-2024 End: 02-09-2024 Ferritin [Mass/volume] in Serum or Plasma FERRITIN Lab Routine Microcytic anemia Expected: 01/01/2024 (Approximate), Expires: 02/09/2024 [facility] Comment on above: Expected: 01/01/2024 (Approximate), Expires: 02/09/2024 Start: 01-01-2024 End: 02-09-2024 Iron and Iron binding capacity panel - Serum or Plasma IRON AND TIBC Lab Routine Microcytic anemia Expected: 01/01/2024 (Approximate), Expires: 02/09/2024 [facility] Work Phone: Comment on above: Expected: 01/01/2024 (Approximate), Expires: 02/09/2024 Start: 12-23-2023 3 comp foot exam completed Diabetic Foot Exam [facility] Start: 12-23-2023 Diabetic foot examination Diabetic Foot Exam [facility] Start: 12-08-2023 End: 12-08-2023 Patient encounter procedure 12/08/2023 3:20 PM EDT Office Visit Internal Medicine Mittie [address] [place] [address] Tiff Pearson MD [address] [place] [address] med refill wanted for controlled meds Internal Medicine Dariel Comment on above: med refill wanted fo r controlled meds Start: 11-30-2023 End: 02-29-2024 Hemoglobin A1c in Blood HEMOGLOBIN A1C Lab Routine Type 2 diabetes mellitus without complication, with long-term current use of insulin (HCC) Expected: 11/30/2023, Expires: 02/29/2024 [facility] Work Phone: Comment on above: Expected: 11/30/2023 , Expires: 02/29/2024 Start: 11-30-2023 End: 11-30-2023 Patient encounter procedure 11/30/2023 1:20 PM EDT Office Visit Internal Medicine Mittie [address] [facility] [place] [address] Tiff Pearson MD [address] [facility] [place] [address] 3 month follow up (ER follow up) Internal Medicine Dariel Comment on above: 3 month follow up (E R follow up) Start: 11-17-2023 Annual PCP Team Straight Line Press Setter akash Disease Visit Annual PCP Team Chronic Disease Visit [facility] Start: 11-17-2023 End: 11-17-2023 Patient encounter procedure 11/17/2023 1:20 PM EDT Office Visit Podiatry [address] [place], [place] [phone] Suzanna Escalante [address] [place] [address] 3 month follow up Podiatry Comment on above: 3 month follow up Start: 11-10-2023 End: 02-09-2024 CBC panel - Blood by Automated count COMPLETE BLOOD COUNT Lab Routine Microcytic anemia Expected: 11/10/2023 (Approximate), Expires: 02/09/2024 [facility] Comment on above: Expected: 11/10/2023 (Approximate), Expires: 02/09/2024 Start: 11-10-2023 End: 02-09-2024 Comprehensive metabolic 2000 panel - Serum or Plasma COMPREHENSIVE METABOLIC PANEL Lab Routine Hypoalbuminemia Type 2 diabetes mellitus without complication, with long-term current use of insulin (HCC) Expected: 11/10/2023 (Approximate), Expires: 02/09/2024 [facility] Comment on above: Expected: 11/10/2023 (Approximate), Expires: 02/09/2024 Start: 11-10-2023 End: 02-09-2024 Ferritin [Mass/volume] in Serum or Plasma FERRITIN Lab Routine Microcytic anemia Expected: 11/10/2023 (Approximate), Expires: 02/09/2024 [facility] Comment on above: Expected: 11/10/2023 (Approximate), Expires: 02/09/2024 Start: 11-10-2023 End: 02-09-2024 Iron and Iron binding capacity panel - Serum or Plasma IRON AND TIBC Lab Routine Microcytic anemia Expected: 11/10/2023 (Approximate), Expires: 02/09/2024 [facility] Work Phone: Comment on above: Expected: 11/10/2023 (Approximate), Expires: 02/09/2024 Start: 11-09-2023 End: 11-09-2023 Patient encounter procedure 11/09/2023 11:30 AM EDT Office Visit Podiatry [address] [place], [place] [phone] Suzanna Escalante [address] [facility] [place], [place] [id number] 3 month follow up Podiatry Comment on above: 3 month follow up Start: 11-05-2023 Advance Directive Discussion Advance Directive Discussion [facility] Start: 11-05-2023 Covid-19 Vaccine ( season) Covid-19 Vaccine ( season) [facility] Start: 11-05-2023 Covid-19 Vaccine ( season) Covid-19 Vaccine ( season) [facility] Start: 11-05-2023 Influenza vaccination [facility] Start: 11-05-2023 Screening for osteoporosis Bone Density Screening [facility] Start: 10-09-2023 End: 10-09-2023 Patient encounter procedure 10/09/2023 1:00 PM EDT Office Visit Internal Medicine Mittie [address] [place], [place] [phone] Shawn Veronica APRN.BASKET PATCHER [address] [place], [place] [id number] med refill wanted for controlled meds Internal Medicine Mittie Comment on above: med refill wanted fo r controlled meds Start: 09-18-2023 End: 09-18-2023 Patient encounter procedure 09/18/2023 1:30 PM EDT Office Visit General Surgery [address] [place], [place] [phone] Sabina Hernandez MD [address] [place] [address] Perianal abscess [K61.0]; Anal fissure [K60.2] General Surgery Comment on above: Perianal abscess [K6 1.0]; Anal fissure [K60.2] Start: 08-28-2023 End: 08-28-2023 Patient encounter procedure Internal Medicine Mittie Comment on above: med refill wanted fo r controlled meds Start: 08-25-2023 End: 08-25-2023 Patient encounter procedure 08/25/2023 2:40 PM EDT Office Visit Internal Medicine [facility] [address] [place], [place] [id number] Vasyl Flores MD [address] [place], [place] [address] sore on left buttock-see triage note-refuses to see Anika Gabriel Internal Medicine [facility] Comment on above: sore on left buttock -see triage note-refuses to see Anika Gabriel Start: 08-02-2023 End: 08-02-2023 Patient encounter procedure 08/02/2023 1:40 PM EDT Office Visit Internal [facility] [address] [place] [address] Shawn Veronica APRN.BASKET PATCHER [address] [place], [place] [phone] med refill wanted for controlled meds Internal Medicine Mittie Comment on above: med refill wanted fo r controlled meds Start: 07-07-2023 End: 07-07-2023 Patient encounter procedure 07/07/2023 2:00 PM EDT Office Visit Podiatry [address] [place], [place] [phone] Suzanna Escalante [address] [place], [place] [address] 3 month follow up for nailcare Podiatry Comment on above: 3 month follow up fo r nailcare Start: 07-03-2023 End: 07-03-2023 Patient encounter procedure 07/03/2023 2:20 PM EDT Office Visit Internal Medicine Mittie [address] [place], [place] [phone] Shawn Veronica APRN.BASKET PATCHER [address] [place], [place] [address] med refill wanted for controlled meds Internal Medicine Mittie Comment on above: med refill wanted fo r controlled meds Start: 07-03-2023 End: 07-03-2023 Patient encounter procedure 07/03/2023 11:20 AM EDT Office Visit Internal Medicine Mittie [address] [place], [place] [id number] Shawn Veronica APRN.BASKET PATCHER [address] [place], [place] [phone] med follow up Internal Medicine Mittie Comment on above: med follow up Start: 06-29-2023 ANNUAL PCP TEAM PET SUPPLIES SALESPERSON AKASH DISEASE VISIT ANNUAL PCP TEAM CHRONIC DISEASE VISIT [facility] Start: 06-08-2023 ANNUAL PCP TEAM PET SUPPLIES SALESPERSON AKASH DISEASE VISIT ANNUAL PCP TEAM CHRONIC DISEASE VISIT [facility] Start: 06-08-2023 BP CONTROLLED (<130/80) BP CONTROLLE D (<130/80) [facility] Start: 05-20-2023 End: 08-19-2023 ALBUMIN/CREAT RATIO RND UR ALBUMIN/CREAT RATIO RND UR Lab Routine Diabetic peripheral neuropathy associated with type 2 diabetes mellitus (HCC) Expected: 05/20/2023, Expires: 08/19/2023 [facility] Comment on above: Expected: 05/20/2023 , Expires: 08/19/2023 Start: 05-20-2023 End: 08-19-2023 CBC panel - Blood by Automated count CBC Lab Routine Diabetic peripheral neuropathy associated with type 2 diabetes mellitus (HCC) Encounter for long-term current use of medication Expected: 05/20/2023, Expires: 08/19/2023 [facility] Comment on above: Expected: 05/20/2023 , Expires: 08/19/2023 Start: 05-20-2023 End: 08-19-2023 Comprehensive metabolic 2000 panel - Serum or Plasma COMP METABOLIC PANEL Lab Routine Diabetic peripheral neuropathy associated with type 2 diabetes mellitus (HCC) Encounter for long-term current use of medication Expected: 05/20/2023, Expires: 08/19/2023 [facility] Comment on above: Expected: 05/20/2023 , Expires: 08/19/2023 Start: 05-20-2023 End: 08-19-2023 Hemoglobin A1c in Blood HGB A1C Lab Routine Diabetic peripheral neuropathy associated with type 2 diabetes mellitus (HCC) Encounter for long-term current use of medication Expected: 05/20/2023, Expires: 08/19/2023 [facility] Work Phone: Comment on above: Expected: 05/20/2023 , Expires: 08/19/2023 Start: 05-20-2023 End: 08-19-2023 Lipid 1996 panel - Serum or Plasma LIPID PANEL BASIC Lab Routine Diabetic peripheral neuropathy associated with type 2 diabetes mellitus (HCC) Encounter for long-term current use of medication Mixed hyperlipidemia Expected: 05/20/2023, Expires: 08/19/2023 [facility] Comment on above: Expected: 05/20/2023 , Expires: 08/19/2023 Start: 04-08-2023 End: 04-08-2023 [facility] Start: 04-08-2023 [facility] Start: 04-04-2023 End: 07-04-2023 TAPENTADOL QUANT, URINE TAPENTADOL QUANT, URINE Lab Routine Chronic, continuous use of opioids Encounter for long-term current use of medication Expected: 04/04/2023, Expires: 07/04/2023 [facility] Work Phone: Comment on above: Expected: 04/04/2023 , Expires: 07/04/2023 Start: 03-06-2023 Depression Assessment Depression Ass essment [facility] Start: 11-16-2022 End: 01-16-2023 Bacteria identified in Throat by Culture [facility] Work Phone: Comment on above: Expected: 11/16/2022 , Expires: 01/16/2023 Start: 11-13-2022 Streptococcus pyogen es antigen assay Group A Streptococcus Rapid Screen [facility] Start: 11-12-2022 Glaucoma screening Dilated Retinal E xam [facility] Start: 11-12-2022 Hepatitis C antibody , confirmatory test DILATED RETINAL EXAM [facility] Start: 2022 Covid-19 Vaccine () Covid-19 Vaccine () [facility] Start: 2022 Influenza vaccination [facility] Start: 09-06-2022 Hemoglobin A1c measurement HbA1C [facility] Start: 09-06-2022 Hemoglobin A1c/Hemoglobin.total in Blood HBA1C [facility] Start: 08-17-2022 ANNUAL PCP TEAM PET SUPPLIES SALESPERSON AKASH DISEASE VISIT ANNUAL PCP TEAM CHRONIC DISEASE VISIT [facility] Start: 08-09-2022 BP CONTROLLED (<130/80) BP CONTROLLE D (<130/80) [facility] Start: 08-06-2022 Urine microalbumin profile [facility] Start: 08-03-2022 Hepatitis C antibody , confirmatory test DILATED RETINAL EXAM [facility] Start: 08-01-2022 Hepatitis C antibody , confirmatory test DILATED RETINAL EXAM [facility] Start: 06-29-2022 Procedure [facility] Start: 06-01-2022 Referral to service [facility] Start: 05-25-2022 BP CONTROLLED (<130/80) BP CONTROLLE D (<130/80) [facility] Start: 05-19-2022 ANNUAL PCP TEAM PET SUPPLIES SALESPERSON AKASH DISEASE VISIT ANNUAL PCP TEAM CHRONIC DISEASE VISIT [facility] Start: 04-28-2022 3 comp foot exam completed DIABETIC FOOT EXAM [facility] Start: 03-06-2022 DEPRESSION ASSESSMENT DEPRESSION ASS ESSMENT [facility] Start: 02-15-2022 SHINGRIX VACCINE (1 of 2) SHINGRIX VACCINE (1 of 2) [facility] Comment on above: Postponed from 11/04 (Declined at this time) Start: 2021 Influenza vaccination INFLUENZA (#1) [facility] Start: 09-17-2021 Hepatitis C antibody , confirmatory test DILATED RETINAL EXAM [facility] Start: 06-09-2021 Hepatitis B screening URINE AL BUMIN:CREATININE RATIO [facility] Start: 06-09-2021 Hepatitis B surface antibody level LDL CHOLESTEROL [facility] Start: 05-16-2021 Incision thrombosed hemorrhoid external INCISE EXTERNAL HEMORRHOID [facility] Work Phone: Start: 03-06-2021 DEPRESSION ASSESSMENT DEPRESSION ASS ESSMENT [facility] Start: 02-02-2021 COVID-19 VACCINE (3 - Booster for Moderna series) COVID-19 VACCINE (3 - Booster for Moderna series) [facility] Start: 10-28-2020 COVID-19 VACCINE (3 - Booster for Moderna series) COVID-19 VACCINE (3 - Booster for Moderna series) [facility] Start: 10-28-2020 COVID-19 VACCINE (3 - Moderna series) COVID-19 VACCINE (3 - Moderna series) [facility] Start: 09-08-2020 Hemoglobin A1c/Hemoglobin.total in Blood HBA1C [facility] Start: 01-24-2019 Adult depression screening assessment DEPRESSION SCREENING [facility] Start: 11-15-2018 Screening for malign ant neoplasm of breast Mammogram Screening [facility] Start: 2018 Hepatitis B Vaccine (1 of 3 - Risk 3-dose series) Hepatitis B Vaccine (1 of 3 - Risk 3-dose series) [facility] Start: 2018 RSV Vaccine (1 - 1-d ose 60+ series) RSV Vaccine (1 - 1-dose 60+ series) [facility] Start: 2018 RSV Vaccine (1 - Ris k 60-74 years 1-dose series) RSV Vaccine (1 - Risk 60-74 years 1-dose series) [facility] Start: 12-05-2016 HPV TESTING HPV TESTING [facility] Start: 12-05-2016 PAP TESTING PAP TESTING [facility] Start: 12-05-2016 Screening for malign ant neoplasm of cervix [facility] Start: 11-21-2015 Mammography [facility] Start: 11-21-2015 Screening for malign ant neoplasm of breast Mammogram Screening [facility] Start: 2013 Influenza vaccination LUNG CANCER SC REENING [facility] Start: 09-16-2011 PNEUMOCOCCAL (2 - PCV) PNEUMOCOCCAL (2 - PCV) [facility] Start: 09-16-2011 Pneumococcal vaccination [facility] Start: 09-16-2011 Pneumococcal Vaccine : 65+ (2 of 2 - PCV) Pneumococcal Vaccine: 65+ (2 of 2 - PCV) [facility] Start: 2008 Influenza vaccination L[facility]G [facility] Start: 2008 Screening for malign ant neoplasm of lung Lung Cancer Screening [facility] Start: 2008 SHINGRIX VACCINE (1 of 2) SHINGRIX VACCINE (1 of 2) [facility] Start: 11-05-2003 Colonoscopy COLONOSCOPY [facility] Start: 11-05-[address] COLONOGRAPHY [facility] Start: 11-05-2003 FECAL OCCULT BLOOD FECAL OCCULT BLOO D [facility] Start: 11-05-2003 Screening for malign ant neoplasm of colon [facility] Start: 11-05-2003 SIGMOIDOSCOPY SIGMOIDOSCOPY [facility] Start: 1988 Zoledronic acid therapy ALPHA- 1 ANTITRYPSIN DEFICIENCY SCREENING [facility] Start: 1976 Anxiety Screening Anxiety Screening [facility] Start: 1976 BP CONTROLLED (<130/80) BP CONTROLLE D (<130/80) [facility] Start: 1976 Depression Screening Depression Scre ening [facility] Start: 1976 HEPATITIS C SCREENING HEPATITIS C [facility] Start: 1976 HIV SCREENING HIV SCREENING [facility] Bacteria identified in Urine by Culture URINE CULTURE Microbiology Routine Burning with urination 06/23/2022 4:[address] [facility] Work Phone: Bacteria identified in Wound by Culture ABSCESS AND WOUND CULTURE WITH GRAM STAIN Microbiology Routine Paronychia of finger, left 01/08/2023 1:[address] [facility] Work Phone: End: 02-27-2025 BD DXA TRABECULAR BONE SCORE (TBS) BD DXA TRABECULAR BONE SCORE (TBS) Radiology Routine Screening for osteoporosis Asymptomatic menopause 1 Occurrences starting 01/29/2024 until 02/27/2025 [facility] Comment on above: 1 Occurrences starti ng 01/29/2024 until 02/27/2025 COVID & INFLUENZA A/ B & RSV PCR, ROUTINE COVID & INFLUENZA A/B & RSV PCR, ROUTINE Microbiology Routine URI, acute Ordered: 03/05/2024 [facility] Work Phone: Comment on above: Ordered: 03/05/2024 End: 06-27-2025 DBT Breast - bilateral screening URIEL SCREENING W WILLIAM Radiology Routine Encounter for screening mammogram for breast cancer 1 Occurrences starting 05/28/2024 until 06/27/2025 [facility] Work Phone: Comment on above: 1 Occurrences starti ng 05/28/2024 until 06/27/2025 End: 02-27-2025 DXA Skeletal system.axial Views for bone density DXA-AXIAL SKELETON Radiology Routine Screening for osteoporosis Asymptomatic menopause 1 Occurrences starting 01/29/2024 until 02/27/2025 [facility] Comment on above: 1 Occurrences starti ng 01/29/2024 until 02/27/2025 Influenza virus A an d B RNA and SARS-CoV-2 (COVID-19) N gene panel - Respiratory specimen by MANUELA with probe detection COVID WITH FLUA+B, ROUTINE Microbiology Routine Cough 08/09/2021 2:[address] [facility] Work Phone: End: 08-10-2024 MG Breast Screening URIEL SCREENING Radiology Routine Encounter for screening mammogram for breast cancer 1 Occurrences starting 07/12/2023 until 08/10/2024 [facility] Work Phone: Comment on above: 1 Occurrences starti ng 07/12/2023 until 08/10/2024 Patient Education [facility] Work Phone: Patient referral [facility] Work Phone: SARS-CoV-2 (COVID-19 ) RNA [Presence] in Respiratory specimen by MANUELA with probe detection 2019 CORONAVIRUS Microbiology Routine Sore throat 10/07/2022 11:[address] [facility] Work Phone: End: 10-01-2022 Screening mammography bi 2-view breast inc cad URIEL SCREENING Radiology Routine Encounter for screening mammogram for breast cancer 1 Occurrences starting 09/01/2021 until 10/01/2022 [facility] Work Phone: Comment on above: 1 Occurrences starti ng 09/01/2021 until 10/01/2022 End: 02-07-2024 XR DIGIT GENERAL 3V FRONTAL/LAT/OBL LEFT XR DIGIT GENERAL 3V FRONTAL/LAT/OBL LEFT Radiology STAT Paronychia of finger, left 1 Occurrences starting 01/08/2023 until 02/07/2024 [facility] Work Phone: Comment on above: 1 Occurrences starti ng 01/08/2023 until 02/07/2024 [facility] Immunizations Immunization Date Immunization Notes Care Provider [facility] 01-29-2024 pneumococcal conjuga te (PCV20) vaccine, 20 valent (PREVNAR 20) Esteban Gabriel APRN.METAL MOCKUP MAKER Work Phone: [facility] 01-29-2024 pneumococcal Conjuga te, unspecified formulation Esteban Gabriel APRN.METAL MOCKUP MAKER Work Phone: [facility] 01-04-2024 influenza, high dose seasonal, preservative-free Shawn Veronica CASING IN LINE FEEDER.BASKET PATCHER Work Phone: [facility] 01-04-2024 influenza virus vacc ine, unspecified formulation Tiff Pearson MD Work Phone: [facility] 12-22-2020 influenza, injectabl e, quadrivalent, contains preservative Artem Hunter MD Work Phone: [facility] 12-22-2020 influenza virus vacc ine, unspecified formulation Shawn Veronica CASING IN LINE FEEDER.BASKET PATCHER Work Phone: [facility] 04-17-2020 influenza, injectabl e, quadrivalent, contains preservative Artem Hunter MD Work Phone: [facility] 12-07-2018 influenza, injectabl e, quadrivalent, contains preservative Artem Hunter MD Work Phone: [facility] 01-05-2018 influenza, injectabl e, quadrivalent, contains preservative Artem Huntre MD Work Phone: [facility] 12-15-2015 influenza, injectabl e, quadrivalent, contains preservative Artem Hunter MD Work Phone: [facility] 12-17-2014 influenza, injectabl e, quadrivalent, contains preservative Artem Hunter MD Work Phone: [facility] 12-13-2013 influenza, seasonal, injectable Artem Hunter MD Work Phone: [facility] 12-04-[address] Tiff Pearson Work Phone: [facility] 12-24-[address] Tiff Pearson Work Phone: [facility] 11-26-2012 influenza virus vacc ine, unspecified formulation Artem Hunter MD Work Phone: [facility] 08-06-2012 tetanus toxoid, redu xavier diphtheria toxoid, and acellular pertussis vaccine, adsorbed Artem Hunter MD Work Phone: [facility] Work Phone: 01-13-2012 influenza virus vacc ine, unspecified formulation Artem Hunter MD Work Phone: [facility] 09-15-2010 pneumococcal polysaccharide vaccine, 23 valent Artem Hunter MD Work Phone: [facility] 03-06-2010 pneumococcal polysaccharide vaccine, 23 valent Artem Hunter MD Work Phone: [facility] 03-06-[address] Cielo Pearson Work Phone: [facility] Work Phone: 03-06-2010 pneumococcal vaccine , unspecified formulation Dr. Tiff Pearson Work Phone: [facility] 11-25-2008 influenza virus vacc ine, unspecified formulation Artem Hunter MD Work Phone: [facility] 03-06-2007 pneumococcal polysaccharide vaccine, 23 valent Artem Hunter MD Work Phone: [facility] 03-06-[address] Cielo Pearson Work Phone: [facility] Work Phone: 03-06-2007 pneumococcal vaccine , unspecified formulation Dr. Tiff Pearson Work Phone: [facility] 01-05-2004 influenza virus vacc ine, unspecified formulation Artem Hunter MD Work Phone: [facility] 12-05-2003 tetanus and diphther ia toxoids, adsorbed, preservative free, for adult use (2 Lf of tetanus toxoid and 2 Lf of diphtheria toxoid) Artem Hunter MD Work Phone: [facility] Payers Date Payer Category Payer Medicare (Managed Care) [facility] [id number] 2023 Medicare [id number] 2023 Self-pay [id number] 2020 Medicaid [facility] MEDICAID [facility] [employer] MEDICAID [id number] 2020-Present [phone] [address] [place] [address] Medicaid [id number] 2020 Medicaid [id number] 2016 Medicaid [id number] 2012 Unknown [id number] 1958 Unknown [id number] 1958 Unknown [id number] Unknown [id number] Unknown [id number] Unknown [id number] Unknown [id number] Unknown [id number] Unknown [id number] Unknown [id number] Unknown [id number] Social History Date Type Detail Facility Start: 09-14-2010 End: 11-30-2023 Tobacco smoking status NHIS Ex-smoker [facility] Start: 1965 End: 08-27-2010 History of tobacco use Current smoker [facility] Start: 1965 End: 08-27-2010 History of tobacco use Cigarette Smoker [facility] Start: 09-14-2010 End: 09-21-2022 Cigarettes smoked current (pack per day) - Reported 2 [facility] Work Phone: Start: 09-14-2010 End: 12-15-2015 Tobacco use and exposure Smokeless tobacco non-user [facility] Start: 05-19-2021 End: 11-12-2024 Alcohol intake Current non-drinker of alcohol (finding) [facility] Start: 1960 Sex Assigned At Not on file [facility] Start: 05-21-2021 End: 01-06-2022 Exposure to SARS-CoV-2 (event) Not sure [facility] Start: 06-10-2021 End: 05-11-2023 Tobacco smoking status NHIS Unknown if ever smoked [facility] Start: 04-16-2019 Cigarettes [facility] Start: 1960 Sex Assigned At Female [facility] Start: 08-03-2021 History SDOH Financial 5 [facility] Start: 08-03-2021 History SDOH Food Worry 1 [facility] Start: 08-03-2021 History SDOH Transpo rt Med 2 [facility] Start: 04-30-2022 End: 11-30-2023 Tobacco use and exposure User of smokeless tobacco [facility] Start: 04-30-2022 Tobacco Comment [facility] Start: 08-03-2021 End: 09-21-2022 Tobacco use panel [facility] Work Phone: Start: 02-05-2012 How hard is it for y ou to pay for the very basics like food, housing, medical care, and heating Not hard at all [facility] Work Phone: (I/We) worried madhu er (my/our) food would run out before (I/we) got money to buy more. Never true [facility] Work Phone: In the past 12 month s, was there a time when you were not able to pay the mortgage or rent on time? No [facility] Work Phone: Start: 10-21-2016 None [facility] Start: 10-21-2016 Spouse/ Signif icant Other [facility] Medical Equipment Procedure Code Equipment Code Equipment Origin al Text Equipment Identifier Dates Tube 76mm 6.4mm 10.8mm Lp Cuf - [id number] Start: 03-12-2015 Tube Shiley 10.8 mm 15mm 6.4mm 6 Green 76mm Tracheostomy Cuffless Inner - [id number] Start: 04-22-2015 [id number], [id number], [id number], [id number], [id number], [id number], [id number], [id number], [id number], [id number], [id number], [id number], [id number], [id number] Start: 07-24-2017 End: 01-04-2024 Comment on above: Test blood sugar(s) 4 times daily and as needed as directed. Dx: Type 2 DM - Uncontrolled E11.65 Insulin: Yes Test blood sugar(s) 1 times daily and as needed. Dx: Type 2 DM - Uncontrolled E11.65 Insulin: Yes Test blood sugar(s) 4 times daily and as needed. Dx: Type 2 DM - Uncontrolled E11.65 Insulin: Yes Test blood sugar 4 t imes daily. Dx: Type 2 DM. Uncontrolled E11.65. Insulin: yes Use one needle per d ose (Lantus and Humalog). 5 per day. Test blood sugar(s) 4 times daily. Dx: Type 2 DM - Uncontrolled E11.65 , Insulin: Yes Check blood sugar 4 times daily. DX: E11.65. Insulin : yes Medtronic Micra Transcatheter Pacemaker FDA Start: 09-28-2016 Medtronic Micra Transcatheter Pacemaker FDA Start: 09-28-2016 Medtronic Micra Transcatheter Pacemaker FDA Start: 09-28-2016 Medtronic Micra Transcatheter Pacemaker FDA Start: 09-28-2016 Medtronic Micra Transcatheter Pacemaker FDA Start: 09-28-2016 Medtronic Micra Transcatheter Pacemaker FDA Start: 09-28-2016 Medtronic Micra Transcatheter Pacemaker FDA Start: 09-28-2016 Medtronic Micra Transcatheter Pacemaker FDA Start: 09-28-2016 Medtronic Micra Transcatheter Pacemaker FDA Start: 09-28-2016 Medtronic Micra Transcatheter Pacemaker FDA Start: 09-28-2016 Medtronic Micra Transcatheter Pacemaker FDA Start: 09-28-2016 [id number] Micra Vr [id number] Start: 09-28-2016 Medtronic Micra Transcatheter Pacemaker FDA Start: 09-28-2016 Medtronic Micra Transcatheter Pacemaker FDA Start: 09-28-2016 Goals Date Patient Goal Desired Activity /State Personal health goal Personal health goal Functional Status Date Assessment Result Facility 09-29-2016 Are you deaf, or do you have serious difficulty hearing No 09/29/2016 3:19 PM Collin Mayen RN No [facility] 09-29-2016 Are you blind, or do you have serious difficulty seeing, even when wearing glasses No 09/29/2016 3:19 PM Collin Mayen RN No [facility] 09-29-2016 Do you have serious difficulty walking or climbing stairs No 09/29/2016 3:19 PM Collin Mayen RN No [facility] 09-29-2016 Do you have difficul ty dressing or bathing Yes 09/29/2016 3:19 PM Collin Mayen RN Yes [facility] 09-29-2016 Because of a physica l, mental, or emotional condition, do you have difficulty doing errands alone such as visiting a physician's office or shopping Yes 09/29/2016 3:19 PM Collin Mayen RN Yes [facility] Mental Status Date Assessment Result Facility 04-08-2023 Cognitive function Voice/Name [facility] Work Phone: 11-13-2022 Cognitive function Level Of Cons ciousness Awake;Alert;Appropriate;Fol lows Commands [facility] Work Phone: 06-06-2022 Cognitive function Level Of Cons ciousness Awake;Alert;Appropriate;Fol lows Commands [facility] Work Phone: 06-01-2022 Cognitive function Level Of Cons ciousness Awake;Alert;Appropriate [facility] Work Phone: 10-26-2021 Cognitive function Level Of Cons ciousness Awake;Alert;Appropriate [facility] Work Phone: 06-12-2021 Cognitive function Level Of Cons ciousness Awake;Alert;Appropriate;Fol lows Commands [facility] Work Phone: 09-29-2016 Because of a physica l, mental, or emotional condition, do you have serious difficulty concentrating, remembering, or making decisions No 09/29/2016 3:19 PM EDT Collin Oshea, HARLEY No [facility] Clinical Notes 07-01-2015 to 11-12-2024 Esteban Gabriel APRN.METAL MOCKUP MAKER - 11/12/2024 12:12 PM EDTTelephone Encounter - Quiana Jett RN - 11/11/2024 10:28 AM EDTTelephone Encounter - Quiana Jett RN - 11/11/2024 10:28 AM EDT Note Date & Type Note Facility 11-12-2024 History of Presen t illness Narrative Images from the original note were not included. SUBJECTIVE: Lung Cancer Screening Never done Shingrix Vaccine(1 of 2) Never done RSV Vaccine(1 - Risk 60-74 years 1-dose series) Never done Mammogram Screening due on 11/15/2018 DTaP,Tdap,Td Vaccine(2 - Td or Tdap) due on 08/06/2022 Bone Density Screening Never done Medicare Advantage Annual Wellness Visit Never done Dilated Retinal Exam due on 03/10/2024 Influenza Vaccine(1) due on 2024 HPI Gutierrez Hobson is a 64 year old female. 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 Vaginal Sore: - Gutierrez Hobson has an external sore described as resembling a blister, present for 4 days. - Described as painful and burning. - No previous history of similar sores. - No known trauma or injury. - Gutierrez wears Pull-ups due to urinary incontinence; believes irritation from Pull-ups may have contributed. - Applying Neosporin to the area with some relief. - Gutierrez denies urinary tract symptoms, including burning, urgency, or frequency. 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 ROS Genitourinary: (+) vulvar blister, (+) vulvar pain, (+) vulvar burning, (+) urinary incontinence, (-) dysuria, (-) urinary urgency, (-) urinary frequency Objective BP 132/60 Pulse 65 Resp 16 Wt 77.2 kg (170 lb 3.1 oz) BMI 27.47 kg/m Physical Exam Vitals and nursing note reviewed. Exam conducted with a decorator mannequin present. Constitutional: Appearance: Normal appearance. HENT: Head: Normocephalic and atraumatic. Eyes: Conjunctiva/sclera: Conjunctivae normal. Cardiovascular: Rate and Rhythm: Normal rate. Genitourinary: Comments: Posterolateral lesion approximately 1/4 inch in diameter, yellow drainage no induration or warmth Skin: General: Skin is warm and dry. Neurological: General: No focal deficit present. Mental Status: She is alert and oriented to person, place, and time. ALLERGIES Allergen Reactions Goss Other: See Comments [...] Rash Vicodin [Hydrocodon* Rash Zithromax [Azithrom* Rash magnesium oxide (MAG-OX) 400 mg (241.3 mg magnesium) tablet Take 1 tablet by mouth daily at bedtime. ipratropium-albuterol (DUONEB) 0.5 mg-3 mg(2.5 mg base)/3 mL nebu Inhale 3 mL as instructed four times a day as needed (wheezing). Use over 5-15minutes per nebulizer. nystatin (MYCOSTATIN) powder Apply 1 application to affected area four times a day as needed. triamcinolone acetonide (KENALOG) 0.1 % cream Apply 1 application to affected area three times a day. Apply sparingly to area for rash/itching till rash resolves. For contact dermatitis [START ON 11/25/2024] tapentadol (NUCYNTA) 75 mg tab Take 1 tablet by mouth two times a day as needed for up to 28 days. Patient should start on November 25, 2024. tapentadol (NUCYNTA) 75 mg tab Take 1 tablet by mouth two times a day as needed for up to 28 days. Patient should start on October 28, 2024. iron polysaccharide complex (FERREX 150) 150 mg iron capsule Take 1 capsule by mouth every Monday, Monday, and Monday. omeprazole (PRILOSEC) 20 mg capsule Take 1 capsule by mouth once daily. ramelteon (ROZEREM) 8 mg tablet Take 8 mg by mouth daily at bedtime. glimepiride (AMARYL) 4 mg tablet Take 1 tablet by mouth daily with breakfast. Patient may take an extra half pill once a day for blood sugars over 200. Nebulizer Accessories [facility] Needs new nebulizer mask (mouthpiece), hose and supplies. (J45.20) Intermittent asthma without complication pravastatin (PRAVACHOL) 40 mg tablet Take 1 tablet by mouth once daily. insulin glargine (LANTUS SOLOSTAR U-100 INSULIN) 100 unit/mL (3 mL) Inject 16 Units subcutaneously every morning AND 2 Units every morning. Adjust as directed (2 units to prime pen needle) or as directed. guaiFENesin (MUCINEX) 600 mg 12 hr tablet Take 2 tablets by mouth two times a day. traZODone (DESYREL) 100 mg tablet Take 1 tablet by mouth daily at bedtime. insulin needles, DISPOSABLE, (PEN NEEDLE) 31 gauge x 5/16 Use one needle per dose (Lantus and Humalog). 5 per day. topiramate (TOPAMAX) 100 mg tablet Take 100 mg by mouth two times a day. hyoscyamine sublingual (LEVSIN SL) 0.125 mg Dissolve 1 tablet under the tongue every 6 hours as needed (epigastric discomfort). blood sugar diagnostic (BLOOD GLUCOSE TEST) test strip Test blood sugar(s) 4 times daily. Dx: Type 2 DM - Uncontrolled Insulin: Yes Insurance covers One Touch or Accucheck melatonin 10 mg tab Take 1 tablet by mouth at bedtime as needed for insomnia. hydrocortisone 2.5 % cream Apply 1 application to affected area two times a day as needed. Location: neck (reaction to tape adhesive) May also use for poison tania. Use up to 14 days per episode of rash. alcohol swabs (SURE-PREP ALCHOLOL PREP PADS) Test blood sugars 4 x's daily. Dx: Insulin: Yes clotrimazole (LOTRIMIN) 1 % cream Apply to affected area two times a day. fluticasone-salmeterol (ADVAIR DISKUS) 100-50 mcg/dose inhaler Inhale 1 Puff as instructed two times a day. Rinse mouth out after use with water. nystatin (MYCOSTATIN) 100,000 unit/mL suspension Take 5 mL by mouth four times daily. 1tsp swish in mouth for several minutes, then swallow (or expectorate) 4 times daily until gone. Ostomy Supplies [facility] 1. Convatec Flanges Ref# [id number] 10 to a box, 3 boxes 2. Allkare Protective Barrier Wipes Ref # [id number] 1 box = 50 wipes, 3 boxes 3. Convatec Adhesive Glue Ref # [id number] 2 oz tube, 3 tubes 4. Convatec Stoma Adhesive Powder Ref # [id number] 1 oz bottle, 3 bottles 5. Convatec Stoma Bags Ref # [id number] 10 in a box, 3 boxes blood sugar diagnostic (BLOOD GLUCOSE TEST) test strip Test blood sugar(s) 4 times daily and as needed as directed. Dx: Type 2 DM - Uncontrolled Insulin: Yes ketoconazole (NIZORAL) 2 % cream Apply 1 application to affected area once daily. as needed Lancets lancets Test blood sugar(s) 1 times daily and as needed. Dx: Type 2 DM - Uncontrolled Insulin: Yes miconazole (CADENCE ANTIFUNGAL) 2 % cream Apply 1 application to affected area twice daily. To perirectal and buttocks area INGREZZA 80 mg capsule Take 1 tablet by mouth once daily. Nebulizer and Compressor For Neb 1 Each as needed (Use as directed for treatment of asthma). Zinc Oxide 40 % oint Apply to affected area as needed. Ostomy Supplies (ADHESIVE REMOVER WIPES) swab All Care brand. Use as directed fluPHENAZine (PROLIXIN) 1 mg tablet Take 3 mg by mouth once daily. Nebulizer Accessories [facility] Needs new nebulizer mask, hose and supplies. (J45.20) Intermittent asthma without complication Nebulizer New (not refurbished) NEBULIZER FOR HOME USE with Duoneb 4 x a day. DX: J45.909, Z87.09. Lifetime supplies of mask/tubing, patient has tracheostomy. blood sugar diagnostic (FREESTYLE INSULINX) test strip Test blood sugar(s) 4 times daily and as needed. Dx: Type 2 DM - Uncontrolled E11.65 Insulin: Yes VRAYLAR 3 mg cap Take 3 mg by mouth daily at bedtime. white petrolatum-mineral oil (EUCERIN) cream Apply 1 application to affected area as needed for Dry Skin (all dry skin areas). lidocaine (LMX) 4 % cream Apply to affected area four times a day as needed (for painful sore in rectal area as directed). mupirocin (BACTROBAN) 2 % ointment Apply 1 application to affected area two times a day for 10 days. doxycycline (VIBRA-TABS) 100 mg tablet Take 1 tablet by mouth two times a day for 7 days. 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 02/05/2010 Diabetes ([facility]) 1999 On insulin 2015 Dyslipidemia Encephalopathy in sepsis 02/28/2015 CT head and EEG done to confirm Endogenous endophthalmitis Fecal soiling due to fecal incontinence 10/10/2023 Hematoma 06/17/2016 Hematuria, unspecified 04/09/2008 UA with [...] through the rectal area Mild protein-calorie malnutrition ([facility]) 03/09/2015 Secondary to small bowel obstruction requiring surgical intervention, 2 anastomosis sites, with continued enteric leak and stool from incision -- NPO for enteric leak -- Nutrition via parenteral route with daily adjustment of lytes On total parenteral nutrition (TPN) 04/22/2015 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[facility]) 04/1999 Diabetes on metformin Pain in limb 02/05/2010 Paranoid schizophrenia, chronic condition ([facility]) 1985 Peptic ulcer, unspecified site, unspecified as [...] 03/14 -- follow daily CBC and coags 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 Unspecified migraine 1999 Ventral hernia with bowel obstruction 09/10/2016 Added automatically from request for surgery [id number] VRE bacteremia 09/29/2016 Social History Tobacco Use Smoking status: Former Current packs/day: 0.00 Average packs/day: 2.0 packs/day for 45.0 years (90.0 ttl pk-yrs) Types: Cigarettes Start date: 1965 Quit date: 08/27/2010 Years since quittin.2 Smokeless tobacco: Current Tobacco comments: Medical Vaping Use Vaping status: Never Used Substance Use Topics Alcohol use: No Drug use: Not Currently Types: Marijuana Comment: Cocaine abuse, quit before 1999. Medical Marijuana Latest Ref Rng 01/10/2024 Protein, Total 6.3 - 8.0 g/dL 6.7 Albumin 3.9 - 4.9 g/dL 3.9 Calcium 8.5 - 10.2 mg/dL 8.5 Bilirubin, Total 0.2 - 1.3 mg/dL <0.2 (L) Alkaline Phosphatase 34 - 123 U/L 70 AST 13 - 35 U/L 18 ALT 7 - 38 U/L 13 Glucose 74 - 99 mg/dL 256 (H) BUN 7 - 21 mg/dL 32 (H) Creatinine 0.58 - 0.96 mg/dL 1.18 (H) Sodium 136 - 144 mmol/L 138 Potassium 3.7 - 5.1 mmol/L 4.4 Chloride 98 - 107 mmol/L 106 CO2 22 - 30 mmol/L 21 (L) Anion Gap 8 - 15 mmol/L 11 eGFR >=60 mL/min/1.73m 51 (L) WBC 3.70 - 11.00 k/uL 5.94 RBC 3.90 - 5.20 m/uL 3.66 (L) Hemoglobin 11.5 - 15.5 g/dL 10.3 (L) Hematocrit 36.0 - 46.0 % 35.4 (L) MCV 80.0 - 100.0 fL 96.7 MCH 26.0 - 34.0 pg 28.1 MCHC 30.5 - 36.0 g/dL 29.1 (L) RDW-CV 11.5 - 15.0 % 14.1 Platelet Count 150 - 400 k/uL 179 MPV 9.0 - 12.7 fL 10.4 Absolute nRBC <0.01 k/uL <0.01 Iron 41 - 186 ug/dL 26 (L) TIBC 232 - 386 ug/dL 374 Transferrin Saturation 15.0 - 57.0 % 7.0 (L) Hemoglobin A1C 4.3 - 5.6 % 6.4 (H) Estimated Average Glucose mg/dL 137 Ferritin 14.7 - 205.1 ng/mL 13.7 (L) 1. Labial lesion (N90.89) 2. Urinary incontinence, unspecified type (R32) - Acute labial lesion present for 4 days, described as a painful, burning blister; exam consistent with localized skin infection, likely secondary to friction and exposure to incontinence. - Start doxycycline. - Start Bactroban ointment. - Advised daily washing of the area, soaking in a tub if possible, applying Bactroban ointment, and using Vaseline over the ointment to protect the area from incontinence - If not improved, will refer to gynecology. Esteban Gabriel APRN.MARY Medical Decision Making: Problems: Low: Acute, uncomplicated illness or injury Risk: Moderate: Drug management Medical Decision Making Level: 3 - Low documented in this encounter [facility] 11-11-2024 Telephone encounter Note Reason for Conversation Vaginal Problem Background Patient calls and states that she has boil on her vagina. Patient states that it has been there 3-4 days. Patient states that it is very painful and is asking what she can do for this. Advised patient that it needs to be evaluated. Patient voiced understanding. Disposition SEE HCP (OR PCP TRIAGE) WITHIN 4 HOURS- Patient scheduled to see Esteban Gabriel tomorrow 11/12/2024. Offered sooner appointment. Patient declines because she has a different appointment today. Reason for Disposition [1] SEVERE pain AND [2] not improved 2 hours after pain medicine 1. SYMPTOM: Sore on Lip of Vagina 2. LOCATION: Outside Right side vagina 3. ONSET: 3-4 days 4. PAIN: 5. ITCHING: Denies itching 6. CAUSE: Denies 7. OTHER SYMPTOMS: Rivero when she urinates No Additional Information on file. Protocols Used Vaginal [id number] [facility] 11-11-2024 Miscellaneous Notes Reason for Conversation Vaginal Problem Background Patient calls and states that she has boil on her vagina. Patient states that it has been there 3-4 days. Patient states that it is very painful and is asking what she can do for this. Advised patient that it needs to be evaluated. Patient voiced understanding. Disposition SEE HCP (OR PCP TRIAGE) WITHIN 4 HOURS- Patient scheduled to see Esteban Gabriel tomorrow 11/12/2024. Offered sooner appointment. Patient declines because she has a different appointment today. Reason for Disposition [1] SEVERE pain AND [2] not improved 2 hours after pain medicine 1. SYMPTOM: Sore on Lip of Vagina 2. LOCATION: Outside Right side vagina 3. ONSET: 3-4 days 4. PAIN: 5. ITCHING: Denies itching 6. CAUSE: Denies 7. OTHER SYMPTOMS: Rivero when she urinates No Additional Information on file. Protocols Used Vaginal [id number] documented in this encounter [facility] 11-01-2024 History of Presen t illness Narrative Last saw pcp; 09/30/24 Subjective: Patient presents to clinic c/o painful toenails. They state that the nails are especially painful with shoe gear and pressure. Patient states that nails 1-5 b/l are painful. Patient admits to being diabetic. Had order for diabetic shoes but lost the order. Is requesting new order for diabetic shoes. No other pedal complaints at this time. Patient states no change in medications or medical history since last visit. Objective: Patient presents to clinic ambulating in diabetic shoe Vasc: DP and PT pulses are papable bilateral. CFT is less than 5 seconds bilateral. Skin temperature is warm to cool proximal to distal bilateral. There is moderate edema or varicosities noted. Neuro: Protective sensation is decreased to the [...] pedal groups tested. Ankle joint DF is decreased with the knee extended with no pain or crepitus noted. 1st MPJ ROM is decreased bilateral. Subtle bunion deformity is present to b/l feet Assessment: (B35.1) Onychomycosis (primary encounter diagnosis) (M79.674) Pain in toe of right foot (M79.675) Pain in toe of left foot (E11.49) Other diabetic neurological complication associated with type 2 diabetes mellitus (HCC) (M20.12) Hallux valgus of left foot (M20.11) Hallux valgus of right foot Plan: Patient was seen and evaluated. Nails 1-5 bilateral were debrided in length and thickness. Patient was instructed on the continued importance of diabetic foot care along with proper diet and keeping their blood sugar under control to prevent complications. I stressed the importance of avoiding barefoot walking, wearing good shoes and inspection of feet. Discussed subtle bunion of b/l feet. Recommend wider shoes. Diabetic shoes were ordered. Patient will benefit from diabetic shoes given history of neuropathy and bunion deformity. Patient is to RTC in 3-4 months. Suzanna Escalante DPM documented in this encounter [facility] 11-01-2024 Instructions Suzanna Escalante - 11/01/2024 2:32 PM EDT Diabetes Foot Care Instructions When [...] (or decreased sensation in your feet) a reverse engineer should always cut your toenails. Be Careful [...] Go to your health care provider or reverse engineer to treat these conditions. documented in this encounter [facility] 10-25-2024 Telephone encounter Note Prescription Refill Information The patient has been identified by name and date of : Yes Caregiver verified no other encounters exist for this prescription request: Yes Caregiver confirmed with patient/requestor that no other refills are due, in the near future, with this provider at this time: Yes The last office visit in the department: 09-30-24 Does the patient have a future office visit with this provider/department: Yes Requested Prescriptions Pending Prescriptions Disp Refills magnesium oxide (MAG-OX) 400 mg (241.3 mg magnesium) tablet 30 tablet 11 Sig: Take 1 tablet by mouth daily at bedtime. Pari Garcia October 25, 2024 8:49 AM [facility] 10-25-2024 Miscellaneous Notes Prescription Refill Information The patient has been identified by name and date of : Yes Caregiver verified no other encounters exist for this prescription request: Yes Caregiver confirmed with patient/requestor that no other refills are due, in the near future, with this provider at this time: Yes The last office visit in the department: 09-30-24 Does the patient have a future office visit with this provider/department: Yes Requested Prescriptions Pending Prescriptions Disp Refills magnesium oxide (MAG-OX) 400 mg (241.3 mg magnesium) tablet 30 tablet 11 Sig: Take 1 tablet by mouth daily at bedtime. Pari Garcia October 25, 2024 8:49 AM documented in this encounter [facility] 10-14-2024 Telephone encounter Note Pt called in and was wanting to get her Kenalog cream reordered. I let her know that Esteban Gabriel CABLE REELER reordered it the last time she was seen, and that she just needs to dejon the pharmacy. Michael Veloz RN [facility] 10-14-2024 Miscellaneous Notes Pt called in and was wanting to get her Kenalog cream reordered. I let her know that Esteban Gabriel CABLE REELER reordered it the last time she was seen, and that she just needs to dejon the pharmacy. Michael Veloz RN documented in this encounter [facility] 10-07-2024 Telephone encounter Note The following approved medication requests have been transmitted electronically. Requested Prescriptions Pending Prescriptions Disp Refills ipratropium-albuterol (DUONEB) 0.5 mg-3 mg(2.5 mg base)/3 mL nebu 380 each 3 Sig: Inhale 3 mL as instructed four times a day as needed (wheezing). Use over 5-15minutes per nebulizer. Tiff Pearson MD [facility] 10-07-2024 Miscellaneous Notes The following approved medication requests have been transmitted electronically. Requested Prescriptions Pending Prescriptions Disp Refills ipratropium-albuterol (DUONEB) 0.5 mg-3 mg(2.5 mg base)/3 mL nebu 380 each 3 Sig: Inhale 3 mL as instructed four times a day as needed (wheezing). Use over 5-15minutes per nebulizer. Tiff Pearson MD Pt reports she is out of this medication. The patient has been identified by name and date of : Yes Caregiver verified no other encounters exist for this prescription request: Yes Caregiver confirmed with patient/requestor that no other refills are due, in the near future, with this provider at this time: Yes The last office visit in the department: 09/30/2024 Does the patient have a future office visit with this provider/department: Yes 12/31/2024 Requested Prescriptions Pending Prescriptions Disp Refills ipratropium-albuterol (DUONEB) 0.5 mg-3 mg(2.5 mg base)/3 mL nebu 380 each 3 Sig: Inhale 3 mL as instructed four times a day as needed (wheezing). Use over 5-15minutes per nebulizer. Cameron Daley RN October 07, 2024 1:13 PM documented in this encounter [facility] 10-07-2024 Telephone encounter Note Pt reports she is out of this medication. The patient has been identified by name and date of : Yes Caregiver verified no other encounters exist for this prescription request: Yes Caregiver confirmed with patient/requestor that no other refills are due, in the near future, with this provider at this time: Yes The last office visit in the department: 09/30/2024 Does the patient have a future office visit with this provider/department: Yes 12/31/2024 Requested Prescriptions Pending Prescriptions Disp Refills ipratropium-albuterol (DUONEB) 0.5 mg-3 mg(2.5 mg base)/3 mL nebu 380 each 3 Sig: Inhale 3 mL as instructed four times a day as needed (wheezing). Use over 5-15minutes per nebulizer. Cameron Daley RN October 07, 2024 1:13 PM [facility] 10-03-2024 Telephone encounter Note Patient notified of results and provider's instructions. Patient verbalizes understanding. Lolis Treadwell LPN [facility] 10-03-2024 Miscellaneous Notes Patient notified of results and provider's instructions. Patient verbalizes understanding. Lolis Treadwell LPN Please let her know: Albumin / creatinine is improving. A1c is increased to 7.4%. Cholesterol is in acceptable range. documented in this encounter [facility] 10-03-2024 Telephone encounter Note Please let her know: Albumin / creatinine is improving. A1c is increased to 7.4%. Cholesterol is in acceptable range. [facility] 09-30-2024 Instructions Esteban Gabriel APRN.MARY - 09/30/2024 1:43 PM EDT Return to clinic in 3 months Schedule mammogram and BMD and lung cancer screening in the next few months documented in this encounter [facility] 09-30-2024 History of Presen t illness Narrative SUBJECTIVE: Lung Cancer Screening Never done Shingrix Vaccine(1 of 2) Never done RSV Vaccine(1 - Risk 60-74 years 1-dose series) Never done Mammogram Screening due on 11/15/2018 Urine Albumin:Creatinine Ratio due on 06/09/2021 DTaP,Tdap,Td Vaccine(2 - Td or Tdap) due on 08/06/2022 Bone Density Screening Never done Diabetic Foot Exam due on 12/23/2023 Medicare Advantage Annual Wellness Visit Never done Dilated Retinal Exam due on 03/10/2024 HbA1C due on 07/09/2024 LDL Cholesterol due on 08/01/2024 HPI Gutierrez Hobson is a 63 year old female. 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 Reports generalized pain of fibromyalgia. Notes medication has been helpful. Does not make her sleepy. Notes can not see local pain management doctors. Notes right knee pain tht is chronic No change in ileostomy output. YENY, insomnia; Seeing Dr Ortiz for sleep. DIABETES MELLITUS: Without report of excessive thirst or increased frequency of urination, chest pain or dyspnea , numbness, tingling or pain in extremities, new or unusual visual symptoms, low sugar/hypoglycemic reactions, weight loss/gain, lightheadedness/dizziness, and bowel changes/loose stools. . Patient's last HgA1C was Hemoglobin A1C (%) Date Value 01/10/2024 6.4 08/02/2023 6.3 06/09/2020 8.3 11/14/2017 9.2 Hemoglobin A1C (POCT) (%) Date Value 06/07/2022 8.1 07/27/2018 8.0 ) HTN: Without report of headache, chest pain, palpitations, dyspnea, peripheral edema, orthopnea, fatigue, and PND Last 14 Encounter BP Readings: Date: BP: 09/30/2024 132/84 05/28/2024 124/52 03/05/2024 128/74 01/29/2024 107/57 11/30/2023 124/60 10/02/2023 120/70 08/02/2023 110/60 07/03/2023 92/54 05/20/2023 114/66 04/13/2023 95/58 03/27/2023 117/75 03/14/2023 104/70 02/13/2023 132/82 02/08/2023 104/72 Hyperlipidemia. Ms. Hobson reports doing well on current therapy. Her most recent lipid panels are: Cholesterol, Total (mg/dL) Date Value 08/02/2023 131 06/09/2020 154 07/25/2018 202 HDL Cholesterol (mg/dL) Date Value 08/02/2023 56 06/09/2020 64 07/25/2018 61 LDL Cholesterol, Calculated (mg/dL) Date Value 08/02/2023 54 06/09/2020 69 07/25/2018 62 Triglyceride (mg/dL) Date Value 08/02/2023 104 06/09/2020 106 07/25/2018 396 Anemic, taking iron 3 days per week. Review of Systems Constitutional: Negative. Musculoskeletal: Positive for arthralgias and myalgias. Objective BP 132/84 Pulse 68 Resp 14 Wt 79.1 kg (174 lb 6.1 oz) SpO2 98% BMI 28.15 kg/m Physical Exam Vitals and nursing note reviewed. Constitutional: Appearance: Normal appearance. HENT: Head: Normocephalic and atraumatic. Eyes: Conjunctiva/sclera: Conjunctivae normal. Cardiovascular: Rate and Rhythm: Normal rate. Skin: General: Skin is warm and dry. Neurological: General: No focal deficit present. Mental Status: She is alert and oriented to person, place, and time. ALLERGIES Allergen Reactions Goss Other: See Comments [...] Rash Vicodin [Hydrocodon* Rash Zithromax [Azithrom* Rash iron polysaccharide complex (FERREX 150) 150 mg iron capsule Take 1 capsule by mouth every Monday, Monday, and Monday. omeprazole (PRILOSEC) 20 mg capsule Take 1 capsule by mouth once daily. ramelteon (ROZEREM) 8 mg tablet Take 8 mg by mouth daily at bedtime. glimepiride (AMARYL) 4 mg tablet Take 1 tablet by mouth daily with breakfast. Patient may take an extra half pill once a day for blood sugars over 200. pravastatin (PRAVACHOL) 40 mg tablet Take 1 tablet by mouth once daily. insulin glargine (LANTUS SOLOSTAR U-100 INSULIN) 100 unit/mL (3 mL) Inject 16 Units subcutaneously every morning AND 2 Units every morning. Adjust as directed (2 units to prime pen needle) or as directed. guaiFENesin (MUCINEX) 600 mg 12 hr tablet Take 2 tablets by mouth two times a day. traZODone (DESYREL) 100 mg tablet Take 1 tablet by mouth daily at bedtime. insulin needles, DISPOSABLE, (PEN NEEDLE) 31 gauge x 5/16 Use one needle per dose (Lantus and Humalog). 5 per day. magnesium oxide (MAG-OX) 400 mg (241.3 mg magnesium) tablet Take 1 tablet by mouth daily at bedtime. topiramate (TOPAMAX) 100 mg tablet Take 100 mg by mouth two times a day. hyoscyamine sublingual (LEVSIN SL) 0.125 mg Dissolve 1 tablet under the tongue every 6 hours as needed (epigastric discomfort). blood sugar diagnostic (BLOOD GLUCOSE TEST) test strip Test blood sugar(s) 4 times daily. Dx: Type 2 DM - Uncontrolled Insulin: Yes Insurance covers One Touch or Accucheck melatonin 10 mg tab Take 1 tablet by mouth at bedtime as needed for insomnia. hydrocortisone 2.5 % cream Apply 1 application to affected area two times a day as needed. Location: neck (reaction to tape adhesive) May also use for poison tania. Use up to 14 days per episode of rash. alcohol swabs (SURE-PREP ALCHOLOL PREP PADS) Test blood sugars 4 x's daily. Dx: Insulin: Yes clotrimazole (LOTRIMIN) 1 % cream Apply to affected area two times a day. ipratropium-albuterol (DUONEB) 0.5 mg-3 mg(2.5 mg base)/3 mL nebu Inhale 3 mL as instructed four times a day as needed (wheezing). Use over 5-15minutes per nebulizer. fluticasone-salmeterol (ADVAIR DISKUS) 100-50 mcg/dose inhaler Inhale 1 Puff as instructed two times a day. Rinse mouth out after use with water. lidocaine (LMX) 4 % cream Apply to affected area four times a day as needed (for painful sore in rectal area as directed). blood sugar diagnostic (BLOOD GLUCOSE TEST) test strip Test blood sugar(s) 4 times daily and as needed as directed. Dx: Type 2 DM - Uncontrolled Insulin: Yes ketoconazole (NIZORAL) 2 % cream Apply 1 application to affected area once daily. as needed Lancets lancets Test blood sugar(s) 1 times daily and as needed. Dx: Type 2 DM - Uncontrolled Insulin: Yes miconazole (CADENCE ANTIFUNGAL) 2 % cream Apply 1 application to affected area twice daily. To perirectal and buttocks area INGREZZA 80 mg capsule Take 1 tablet by mouth once daily. Zinc Oxide 40 % oint Apply to affected area as needed. blood sugar diagnostic (FREESTYLE INSULINX) test strip Test blood sugar(s) 4 times daily and as needed. Dx: Type 2 DM - Uncontrolled Insulin: Yes VRAYLAR 3 mg cap Take 3 mg by mouth daily at bedtime. white petrolatum-mineral oil (EUCERIN) cream Apply 1 application to affected area as needed for Dry Skin (all dry skin areas). nystatin (MYCOSTATIN) powder Apply 1 application to affected area four times a day as needed. triamcinolone acetonide (KENALOG) 0.1 % cream Apply 1 application to affected area three times a day. Apply sparingly to area for rash/itching till rash resolves. For contact dermatitis [START ON 11/25/2024] tapentadol (NUCYNTA) 75 mg tab Take 1 tablet by mouth two times a day as needed for up to 28 days. Patient should start on November 25, 2024. [START ON 10/28/2024] tapentadol (NUCYNTA) 75 mg tab Take 1 tablet by mouth two times a day as needed for up to 28 days. Patient should start on October 28, 2024. tapentadol (NUCYNTA) 75 mg tab Take 1 tablet by mouth two times a day as needed for up to 28 days. tapentadol (NUCYNTA) 75 mg tab Take 1 tablet by mouth two times a day as needed for up to 3 days. Nebulizer Accessories [facility] Needs new nebulizer mask (mouthpiece), hose and supplies. (J45.20) Intermittent asthma without complication nystatin (MYCOSTATIN) 100,000 unit/mL suspension Take 5 mL by mouth four times daily. 1tsp swish in mouth for several minutes, then swallow (or expectorate) 4 times daily until gone. (Patient not taking: Reported on 04/29/2024) Ostomy Supplies [facility] 1. Convate Flanges Ref# [id number] 10 to a box, 3 boxes 2. [employer]kare Protective Barrier Wipes Ref # [id number] 1 box = 50 wipes, 3 boxes 3. Convate Adhesive Glue Ref # [id number] 2 oz tube, 3 tubes 4. Convate Stoma Adhesive Powder Ref # [id number] 1 oz bottle, 3 bottles 5. Convate Stoma Bags Ref # [id number] 10 in a box, 3 boxes Nebulizer and Compressor For Neb 1 Each as needed (Use as directed for treatment of asthma). Ostomy Supplies (ADHESIVE REMOVER WIPES) swab All [facility] brand. Use as directed fluPHENAZine (PROLIXIN) 1 mg tablet Take 3 mg by mouth once daily. Nebulizer Accessories misc Needs new nebulizer mask, hose and supplies. (J45.20) Intermittent asthma without complication Nebulizer New (not refurbished) NEBULIZER FOR HOME USE with Duoneb 4 x a day. DX: J45.909, Z87.09. Lifetime supplies of mask/tubing, patient has tracheostomy. 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 02/05/2010 Diabetes ([facility]) 1999 On insulin 2015 Dyslipidemia Encephalopathy in sepsis 02/28/2015 CT head and EEG done to confirm Endogenous endophthalmitis Fecal soiling due to fecal incontinence 10/10/2023 Hematoma 06/17/2016 Hematuria, unspecified 04/09/2008 UA with [...] 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[facility]) 04/1999 Diabetes on metformin Pain in limb 02/05/2010 Paranoid schizophrenia, chronic condition ([facility]) 1985 Peptic ulcer, unspecified site, unspecified as [...] 03/14 -- follow daily CBC and coags 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 In addition there are small edema bullae on the abdominal wall Both require gentle wound care and emollients such as aquaphor or petroleum jelly -- monitor Tracheostomy in place ([facility]) Placed 2015 after prolonged respiratory failure, unable to liberate from vent. 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 Medical Marijuana Latest Ref Rng 01/10/2024 Protein, Total 6.3 - 8.0 g/dL 6.7 Albumin 3.9 - 4.9 g/dL 3.9 Calcium 8.5 - 10.2 mg/dL 8.5 Bilirubin, Total 0.2 - 1.3 mg/dL <0.2 (L) Alkaline Phosphatase 34 - 123 U/L 70 AST 13 - 35 U/L 18 ALT 7 - 38 U/L 13 Glucose 74 - 99 mg/dL 256 (H) BUN 7 - 21 mg/dL 32 (H) Creatinine 0.58 - 0.96 mg/dL 1.18 (H) Sodium 136 - 144 mmol/L 138 Potassium 3.7 - 5.1 mmol/L 4.4 Chloride 98 - 107 mmol/L 106 CO2 22 - 30 mmol/L 21 (L) Anion Gap 8 - 15 mmol/L 11 eGFR >=60 mL/min/1.73m 51 (L) WBC 3.70 - 11.00 k/uL 5.94 RBC 3.90 - 5.20 m/uL 3.66 (L) Hemoglobin 11.5 - 15.5 g/dL 10.3 (L) Hematocrit 36.0 - 46.0 % 35.4 (L) MCV 80.0 - 100.0 fL 96.7 MCH 26.0 - 34.0 pg 28.1 MCHC 30.5 - 36.0 g/dL 29.1 (L) RDW-CV 11.5 - 15.0 % 14.1 Platelet Count 150 - 400 k/uL 179 MPV 9.0 - 12.7 fL 10.4 Absolute nRBC <0.01 k/uL <0.01 Iron 41 - 186 ug/dL 26 (L) TIBC 232 - 386 ug/dL 374 Transferrin Saturation 15.0 - 57.0 % 7.0 (L) Hemoglobin A1C 4.3 - 5.6 % 6.4 (H) Estimated Average Glucose mg/dL 137 Ferritin 14.7 - 205.1 ng/mL 13.7 (L) 1. Diabetic peripheral neuropathy associated with type 2 diabetes mellitus (HCC) (E11.42) - No current numbness, tingling, or sores on feet. 2. Fibromyalgia (M79.7) Stable on current treatment, continue unchanged. 3. Chronic, continuous use of opioids (F11.90) 4. Chronic midline low back pain, unspecified whether sciatica present (M54.50) - Continue current opioid regimen. - Provided 3 months of refills. - Follow-up in 3 months. 6. Screening for diabetic retinopathy (Z13.5) 7. Visual impairment (H54.7) - Patient is currently under the care of [facility] for visual impairment. 8. Encounter for screening for lung cancer (Z12.2) - History of smoking; discussed benefits of early detection. - Ordered low-dose CT scan for lung cancer screening. - Patient educated on the purpose of screening and advised to complete within the year. Schedule mammogram BMD, cancer screening sometime this year. 3 mo follow up visit Tiff Pearson MD or Esteban Gabriel APRN.CNS AWV+ chronic pain refill Esteban Gabriel APRN.CNS Medical Decision Making: Problems: Moderate: 2+ stable chronic illnesses Data: Unique test(s) ordered: 3+ Risk: Moderate: Drug management Medical Decision Making Level: 4 - Moderate documented in this encounter [facility] 09-27-2024 Telephone encounter Note Noted patient's concerns/complaints about the automated calls. Also about reminders regarding need for follow up. They were not meant to be threats but a warning that if she does not follow [facility] protocols, we primary care providers have to comply with the protocol and wean patients off their controlled medications. I hope staff tries to convey the message this way. She can discuss with Esteban and/or me about this as needed. [facility] 09-27-2024 Miscellaneous Notes Noted patient's concerns/complaints about the automated calls. Also about reminders regarding need for follow up. They were not meant to be threats but a warning that if she does not follow [facility] protocols, we primary care providers have to comply with the protocol and wean patients off their controlled medications. I hope staff tries to convey the message this way. She can discuss with Esteban and/or me about this as needed. Patient calls to report that she doesn't need a call from [facility] every 5 minutes to notify her of her appt on the and she doesn't need to be threatened that if she doesn't come she won't receive anymore of her Nycnta. Patient reports this is harassment and she doesn't have to put up with it. Asked patient what number is she receiving these calls from and she reports its automated and a nurse calling her but was not able to give any numbers of where the call was coming from at this time or names. Notified management of patient's concern. Rama Burroughs RN documented in this encounter [facility] 09-27-2024 Telephone encounter Note Patient calls to report that she doesn't need a call from [facility] every 5 minutes to notify her of her appt on the and she doesn't need to be threatened that if she doesn't come she won't receive anymore of her Nycnta. Patient reports this is harassment and she doesn't have to put up with it. Asked patient what number is she receiving these calls from and she reports its automated and a nurse calling her but was not able to give any numbers of where the call was coming from at this time or names. Notified management of patient's concern. Rama Burroughs RN [facility] 09-27-2024 Telephone encounter Note Pt. informed [facility] Work Phone: 09-27-2024 Miscellaneous Notes Pt. informed Not sure what patient means about being shorted on meds. If they mean just enough meds to get to next appointment, that is because of missed appointments and need to be seen every 3 months. They had appointment for 3 month FU with Shawn in August and listed as NoShow on that date, then was not rescheduled. There were 2 attempts at calling patient to reschedule the appointment. At this time, would they prefer to wait till Monday to get 28 day RX as usual or a short term supply for the next 3 days to get to Monday appointment with Esteban? I sent the RX so they may fill it if they want instead of waiting till Monday . The following approved medication requests have been transmitted electronically. Requested Prescriptions Signed Prescriptions Disp Refills tapentadol (NUCYNTA) 75 mg tab 6 tablet 0 Sig: Take 1 tablet by mouth two times a day as needed for up to 3 days. Authorizing Provider: TIFF PEARSON MD Pt's called and is notified of providers message. He states they are trying to make it for 3 month appointment, but states providers office is shorting Pt medication and not scheduling her with Dr Pearson and making her appointment longer than 3 months. Pt has an appointment with Esteban Gabriel on 09/30/24. Pt's reports his still wants to be on the medication. Michael Veloz, RN Noted that patient has not called back in response to call below or to check on RX refill request. RX not sent yet. Wonder if decided to stop med at this point since not wanting to come in for appointments? By now, patient has been off Nucynta for about 5 to 6 days. Attempted to call no answer Vm is full. The appointment with Shawn needs rescheduled for 2 reasons: 1) Told needs seen every 3 months to get refills on Nycynta. 2) Shawn will be going to endocrinology after October plus will be out of the office last half of October. Will give 1 weeks worth of med to get her to appointment this week sometime though if she can be seen Monday, would be able to give RX for 28 days. Call patient Jonn AM. See message below. Last refill declined in August, but not due until 09/19 for follow up. Pt is currently scheduled with Shawn on 10/30/24. Clare Haley MA Adrian is calling Tiff Pearson MD today with concern regarding Medication Problem Pharmacy states they reached the patient and her on 09-09-24 and let them know the medication would not be able to be ordered until she had an appointment. They are checking to see if the provider's office has heard from her and if they are willing to prescribed her Nyucynta Patient has been identified by name and birthdate. Duration of symptoms: N/A Person calling: [facility]: [facility] patient at: at home [phone] (home) [phone] (cell) Was an appointment scheduled: No Closing statement: Lyndsey Garcia documented in this encounter [facility] 09-27-2024 Telephone encounter Note Not sure what patient means about being shorted on meds. If they mean just enough meds to get to next appointment, that is because of missed appointments and need to be seen every 3 months. They had appointment for 3 month FU with Shawn in August and listed as NoShow on that date, then was not rescheduled. There were 2 attempts at calling patient to reschedule the appointment. At this time, would they prefer to wait till Monday to get 28 day RX as usual or a short term supply for the next 3 days to get to Monday appointment with Esteban? I sent the RX so they may fill it if they want instead of waiting till Monday . The following approved medication requests have been transmitted electronically. Requested Prescriptions Signed Prescriptions Disp Refills tapentadol (NUCYNTA) 75 mg tab 6 tablet 0 Sig: Take 1 tablet by mouth two times a day as needed for up to 3 days. Authorizing Provider: TIFF PEARSON MD [facility] 09-26-2024 Telephone encounter Note Pt's called and is notified of providers message. He states they are trying to make it for 3 month appointment, but states providers office is shorting Pt medication and not scheduling her with Dr Pearson and making her appointment longer than 3 months. Pt has an appointment with Esteban Gabriel on 09/30/24. Pt's reports his still wants to be on the medication. Michael Veloz RN [facility] 09-26-2024 Telephone encounter Note Noted that patient has not called back in response to call below or to check on RX refill request. RX not sent yet. Wonder if decided to stop med at this point since not wanting to come in for appointments? By now, patient has been off Nucynta for about 5 to 6 days. [facility] 09-23-2024 Telephone encounter Note Attempted to call no answer Vm is full. [facility] 09-21-2024 Telephone encounter Note The appointment with Shawn needs rescheduled for 2 reasons: 1) Told needs seen every 3 months to get refills on Nycynta. 2) Shawn will be going to endocrinology after October plus will be out of the office last half of October. Will give 1 weeks worth of med to get her to appointment this week sometime though if she can be seen Monday, would be able to give RX for 28 days. Call patient Monday AM. [facility] 09-17-2024 Telephone encounter Note See message below. Last refill declined in August, but not due until 09/19 for follow up. Pt is currently scheduled with Shawn on 10/30/24. Clare Haley MA [facility] 09-17-2024 Telephone encounter Note Adrian is calling Tiff Pearson MD today with concern regarding Medication Problem Pharmacy states they reached the patient and her on 09-09-24 and let them know the medication would not be able to be ordered until she had an appointment. They are checking to see if the provider's office has heard from her and if they are willing to prescribed her Nyucynta Patient has been identified by name and birthdate. Duration of symptoms: N/A Person calling: pharmacy: [facility] Call patient at: at home [phone] (home) [phone] (cell) Was an appointment scheduled: No Closing statement: Lyndsey Garcia [facility] Work Phone: 08-07-2024 Telephone encounter Note The following approved medication requests have been transmitted electronically. Requested Prescriptions Signed Prescriptions Disp Refills tapentadol (NUCYNTA) 75 mg tab 56 tablet 0 Sig: Take 1 tablet by mouth two times a day as needed for up to 28 days. Patient should start on August 22, 2024. Authorizing Provider: TIFF PEARSON MD [facility] 08-07-2024 Miscellaneous Notes The following approved medication requests have been transmitted electronically. Requested Prescriptions Signed Prescriptions Disp Refills tapentadol (NUCYNTA) 75 mg tab 56 tablet 0 Sig: Take 1 tablet by mouth two times a day as needed for up to 28 days. Patient should start on August 22, 2024. Authorizing Provider: TIFF PEARSON MD Not due for refill until 08/22/24. Can wait for return. Prescription Refill Information The patient has been identified by name and date of : Yes Caregiver verified no other encounters exist for this prescription request: Yes Caregiver confirmed with patient/requestor that no other refills are due, in the near future, with this provider at this time: Yes The last office visit in the department: 05-29-23 Does the patient have a future office visit with this provider/department: Yes Requested Prescriptions Pending Prescriptions Disp Refills tapentadol (NUCYNTA) 75 mg tab 56 tablet 0 Sig: Take 1 tablet by mouth two times a day as needed for up to 28 days. Pari Garcia August 06, 2024 9:20 AM documented in this encounter [facility] 08-06-2024 Telephone encounter Note Not due for refill until 08/22/24. Can wait for return. [facility] 08-06-2024 Telephone encounter Note Prescription Refill Information The patient has been identified by name and date of : Yes Caregiver verified no other encounters exist for this prescription request: Yes Caregiver confirmed with patient/requestor that no other refills are due, in the near future, with this provider at this time: Yes The last office visit in the department: 05-29-23 Does the patient have a future office visit with this provider/department: Yes Requested Prescriptions Pending Prescriptions Disp Refills tapentadol (NUCYNTA) 75 mg tab 56 tablet 0 Sig: Take 1 tablet by mouth two times a day as needed for up to 28 days. Pari Garcia August 06, 2024 9:20 AM [facility] 07-19-2024 Telephone encounter Note PATIENT and NOTIFIED OF SAME. States has tried pain management and due to a previously pain management issues feels is not getting any one willing to see her. States doesn't have funds to come to physical therapy as often as they recommended. [facility] 07-19-2024 Miscellaneous Notes PATIENT and NOTIFIED OF SAME. States has tried pain management and due to a previously pain management issues feels is not getting any one willing to see her. States doesn't have funds to come to physical therapy as often as they recommended. Called pt again with same response. No answer and the mail box is full. Phoned pt - recording states mailbox is full. Please try again later. I cannot prescribe anything stronger than current dose of Nucynta--she would need to see pain management for them to prescribe something stronger. Can refer to pain management to also see if other medication or treatment options are available to treat the source of her pain. Can also offer to refer to physical therapy to see if able to try things like deep ultrasound as well as give her exercises that might help with muscle pain, etc. PATIENT NOTIFIED OF SAME. Patient states that the Nucynta is not effective. Is asking if there is something stronger that she can take. Patient states that she can not get off the couch. 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 Attempted to reach patient with no answer and unable to leave a message due to mailbox is full. Lyrica is on her medication intolerance list--swelling is listed as the adverse effect The adverse reaction was added in 2018. Pt phoned to ask pcp if she can take lyrica if she is taking nucynta. Reports she has friends who take lyrica for back pain and they tell her it works really good. Pt aware pcp is out of office this week and will wait for reply. documented in this encounter [facility] 07-17-2024 Telephone encounter Note Called pt again with same response. No answer and the mail box is full. [facility] 07-12-2024 Telephone encounter Note Phoned pt - recording states mailbox is full. Please try again later. [facility] 07-12-2024 Telephone encounter Note I cannot prescribe anything stronger than current dose of Nucynta--she would need to see pain management for them to prescribe something stronger. Can refer to pain management to also see if other medication or treatment options are available to treat the source of her pain. Can also offer to refer to physical therapy to see if able to try things like deep ultrasound as well as give her exercises that might help with muscle pain, etc. [facility] 07-10-2024 Telephone encounter Note PATIENT NOTIFIED OF SAME. Patient states that the Nucynta is not effective. Is asking if there is something stronger that she can take. Patient states that she can not get off the couch. 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 [facility] 07-08-2024 Telephone encounter Note Attempted to reach patient with no answer and unable to leave a message due to mailbox is full. [facility] 07-08-2024 Telephone encounter Note The following prescriptions have been approved: Requested Prescriptions Signed Prescriptions Disp Refills tapentadol (NUCYNTA) 75 mg tab 56 tablet 0 Sig: Take 1 tablet by mouth two times a day as needed for up to 28 days. Patient should start on July 25, 2024. Authorizing Provider: TIFF PEARSON LPN [facility] 07-08-2024 Miscellaneous Notes The following prescriptions have been approved: Requested Prescriptions Signed Prescriptions Disp Refills tapentadol (NUCYNTA) 75 mg tab 56 tablet 0 Sig: Take 1 tablet by mouth two times a day as needed for up to 28 days. Patient should start on July 25, 2024. Authorizing Provider: TIFF PEARSON LPN The patient has been identified by name and date of : Yes Caregiver verified no other encounters exist for this prescription request: Yes Caregiver confirmed with patient/requestor that no other refills are due, in the near future, with this provider at this time: Yes The last office visit in the department: 05/28/2024 Does the patient have a future office visit with this provider/department: Yes 08/07/2024 Requested Prescriptions Pending Prescriptions Disp Refills tapentadol (NUCYNTA) 75 mg tab 56 tablet 0 Sig: Take 1 tablet by mouth two times a day as needed for up to 28 days. Quiana Jett RN July 04, 2024 4:12 PM documented in this encounter [facility] 07-06-2024 Telephone encounter Note Errol is on her medication intolerance list--swelling is listed as the adverse effect The adverse reaction was added in 2018. [facility] 07-04-2024 Telephone encounter Note The patient has been identified by name and date of : Yes Caregiver verified no other encounters exist for this prescription request: Yes Caregiver confirmed with patient/requestor that no other refills are due, in the near future, with this provider at this time: Yes The last office visit in the department: 05/28/2024 Does the patient have a future office visit with this provider/department: Yes 08/07/2024 Requested Prescriptions Pending Prescriptions Disp Refills tapentadol (NUCYNTA) 75 mg tab 56 tablet 0 Sig: Take 1 tablet by mouth two times a day as needed for up to 28 days. Quiana Jett RN July 04, 2024 4:12 PM [facility] 07-04-2024 Telephone encounter Note Pt phoned to ask pcp if she can take lyrica if she is taking nucynta. Reports she has friends who take lyrica for back pain and they tell her it works really good. Pt aware pcp is out of office this week and will wait for reply. [facility] 06-18-2024 Telephone encounter Note Prescription Refill Information The patient has been identified by name and date of : Yes Caregiver verified no other encounters exist for this prescription request: Yes Caregiver confirmed with patient/requestor that no other refills are due, in the near future, with this provider at this time: Yes The last office visit in the department: 05-28-24 Does the patient have a future office visit with this provider/department: Yes Requested Prescriptions Pending Prescriptions Disp Refills iron polysaccharide complex (FERREX 150) 150 mg iron capsule 36 capsule 3 Sig: Take 1 capsule by mouth every Monday, Monday, and Monday. omeprazole (PRILOSEC) 20 mg capsule 90 capsule 3 Sig: Take 1 capsule by mouth once daily. Pari Garcia June 18, 2024 9:04 AM [facility] 06-18-2024 Miscellaneous Notes Prescription Refill Information The patient has been identified by name and date of : Yes Caregiver verified no other encounters exist for this prescription request: Yes Caregiver confirmed with patient/requestor that no other refills are due, in the near future, with this provider at this time: Yes The last office visit in the department: 05-28-24 Does the patient have a future office visit with this provider/department: Yes Requested Prescriptions Pending Prescriptions Disp Refills iron polysaccharide complex (FERREX 150) 150 mg iron capsule 36 capsule 3 Sig: Take 1 capsule by mouth every Monday, Monday, and Monday. omeprazole (PRILOSEC) 20 mg capsule 90 capsule 3 Sig: Take 1 capsule by mouth once daily. Pari Garcia June 18, 2024 9:04 AM documented in this encounter [facility] 06-06-2024 Telephone encounter Note Patient was seen for follow up. Refills will be given. Sent RX for next month The following approved medication requests have been transmitted electronically. Requested Prescriptions Signed Prescriptions Disp Refills tapentadol (NUCYNTA) 75 mg tab 56 tablet 0 Sig: Take 1 tablet by mouth two times a day as needed for up to 28 days. Patient should start on June 27, 2024. Authorizing Provider: TIFF PEARSON MD [facility] 06-06-2024 Miscellaneous Notes Patient was seen for follow up. Refills will be given. Sent RX for next month The following approved medication requests have been transmitted electronically. Requested Prescriptions Signed Prescriptions Disp Refills tapentadol (NUCYNTA) 75 mg tab 56 tablet 0 Sig: Take 1 tablet by mouth two times a day as needed for up to 28 days. Patient should start on June 27, 2024. Authorizing Provider: TIFF PEARSON MD Gutierrez is a patient of Tiff Pearson MD [employer] called to ask if the prescription below is only going to be for 28 days and then no longer prescribed. Requesting a return call. Disp Refills Start End tapentadol (NUCYNTA) 75 mg tab 56 tablet 0 05/30/2024 06/27/2024 Sig: Take 1 tablet by mouth two times a day as needed for up to 28 days. Sent to pharmacy as: tapentadol (NUCYNTA) 75 mg tab Class: Normal Earliest Fill Date: 05/30/2024 Route: ORAL Order: [id number] E-Prescribing Status: Receipt confirmed by pharmacy (05/30/2024 3:02 PM EDT) No prior authorization was found for this prescription. Found prior authorization for another prescription for the same medication: Approved Patient has been identified by name and birthdate. Was an appointment scheduled: No Closing statement: Results or non-symptom based questions: Thank you for calling [facility], your call will be returned within the next business day. Selene Roberts Pss documented in this encounter [facility] 06-06-2024 Telephone encounter Note Gutierrez is a patient of Tiff Pearson MD [employer] called to ask if the prescription below is only going to be for 28 days and then no longer prescribed. Requesting a return call. Disp Refills Start End tapentadol (NUCYNTA) 75 mg tab 56 tablet 0 05/30/2024 06/27/2024 Sig: Take 1 tablet by mouth two times a day as needed for up to 28 days. Sent to pharmacy as: tapentadol (NUCYNTA) 75 mg tab Class: Normal Earliest Fill Date: 05/30/2024 Route: ORAL Order: [id number] E-Prescribing Status: Receipt confirmed by pharmacy (05/30/2024 3:02 PM EDT) No prior authorization was found for this prescription. Found prior authorization for another prescription for the same medication: Approved Patient has been identified by name and birthdate. Was an appointment scheduled: No Closing statement: Results or non-symptom based questions: Thank you for calling [facility], your call will be returned within the next business day. Selene Roberts Pss [facility] 05-30-2024 Telephone encounter Note Saw Shawn this past week. Will okay RX for 28 day script The following approved medication requests have been transmitted electronically. Requested Prescriptions Signed Prescriptions Disp Refills tapentadol (NUCYNTA) 75 mg tab 56 tablet 0 Sig: Take 1 tablet by mouth two times a day as needed for up to 28 days. Authorizing Provider: TIFF PEARSON MD [facility] 05-30-2024 Miscellaneous Notes Saw Shawn this past week. Will okay RX for 28 day script The following approved medication requests have been transmitted electronically. Requested Prescriptions Signed Prescriptions Disp Refills tapentadol (NUCYNTA) 75 mg tab 56 tablet 0 Sig: Take 1 tablet by mouth two times a day as needed for up to 28 days. Authorizing Provider: TIFF PEARSON MD Prescription Refill Information The patient has been identified by name and date of : Yes Caregiver verified no other encounters exist for this prescription request: Yes Caregiver confirmed with patient/requestor that no other refills are due, in the near future, with this provider at this time: Yes The last office visit in the department: 01-29-24 Does the patient have a future office visit with this provider/department: Yes Requested Prescriptions Pending Prescriptions Disp Refills tapentadol (NUCYNTA) 75 mg tab 28 tablet 0 Sig: Take 1 tablet by mouth two times a day as needed for up to 14 days. Pari Garcia May 30, 2024 10:51 AM documented in this encounter [facility] 05-30-2024 Telephone encounter Note Prescription Refill Information The patient has been identified by name and date of : Yes Caregiver verified no other encounters exist for this prescription request: Yes Caregiver confirmed with patient/requestor that no other refills are due, in the near future, with this provider at this time: Yes The last office visit in the department: 01-29-24 Does the patient have a future office visit with this provider/department: Yes Requested Prescriptions Pending Prescriptions Disp Refills tapentadol (NUCYNTA) 75 mg tab 28 tablet 0 Sig: Take 1 tablet by mouth two times a day as needed for up to 14 days. Pari Garcia May 30, 2024 10:51 AM [facility] 05-28-2024 History of Presen t illness Narrative SUBJECTIVE Gutierrez Hobson is a 63 year old female here today for a check up on her medical problems. Chief Complaint Patient presents with: F/U 3 Month HPI Gutierrez Hobson is a 63 year old female. She is an established patient of Tiff Pearson MD. Here today accompanied by her . In regards to medications currently taken for pain management, the patient is tolerating these medications well. No side effects, she reports that the medications improve her quality of life and ability to function, makes things manageable. She denies misuse, abuse or diversion of medications. Overall her pain is unchanged than the last visit. Does not feel it is as well controlled as what it could be. More leaking from the rectum/fistula. Previously given flagyl when this occurred and it helped. Coming up due for labs. Her medications were reviewed today and her list is now up to date. Medications Current Outpatient Medications Medication Sig tapentadol (NUCYNTA) 75 mg tab Take 1 tablet by mouth two times a day as needed for up to 14 days. Patient should start on May 23, 2024. ramelteon (ROZEREM) 8 mg tablet Take 8 mg by mouth daily at bedtime. glimepiride (AMARYL) 4 mg tablet Take 1 tablet by mouth daily with breakfast. Patient may take an extra half pill once a day for blood sugars over 200. nystatin (MYCOSTATIN) powder Apply 1 application to affected area four times a day as needed. pravastatin (PRAVACHOL) 40 mg tablet Take 1 tablet by mouth once daily. insulin glargine (LANTUS SOLOSTAR U-100 INSULIN) 100 unit/mL (3 mL) Inject 16 Units subcutaneously every morning AND 2 Units every morning. Adjust as directed (2 units to prime pen needle) or as directed. guaiFENesin (MUCINEX) 600 mg 12 hr tablet Take 2 tablets by mouth two times a day. traZODone (DESYREL) 100 mg tablet Take 1 tablet by mouth daily at bedtime. magnesium oxide (MAG-OX) 400 mg (241.3 mg magnesium) tablet Take 1 tablet by mouth daily at bedtime. topiramate (TOPAMAX) 100 mg tablet Take 100 mg by mouth two times a day. hyoscyamine sublingual (LEVSIN SL) 0.125 mg Dissolve 1 tablet under the tongue every 6 hours as needed (epigastric discomfort). iron polysaccharide complex (FERREX 150) 150 mg iron capsule Take 1 capsule by mouth every Monday, Monday, and Monday. melatonin 10 mg tab Take 1 tablet by mouth at bedtime as needed for insomnia. hydrocortisone 2.5 % cream Apply 1 application to affected area two times a day as needed. Location: neck (reaction to tape adhesive) May also use for poison tania. Use up to 14 days per episode of rash. clotrimazole (LOTRIMIN) 1 % cream Apply to affected area two times a day. ipratropium-albuterol (DUONEB) 0.5 mg-3 mg(2.5 mg base)/3 mL nebu Inhale 3 mL as instructed four times a day as needed (wheezing). Use over 5-15minutes per nebulizer. fluticasone-salmeterol (ADVAIR DISKUS) 100-50 mcg/dose inhaler Inhale 1 Puff as instructed two times a day. Rinse mouth out after use with water. omeprazole (PRILOSEC) 20 mg capsule Take 1 capsule by mouth once daily. lidocaine (LMX) 4 % cream Apply to affected area four times a day as needed (for painful sore in rectal area as directed). ketoconazole (NIZORAL) 2 % cream Apply 1 application to affected area once daily. as needed miconazole (CADENCE ANTIFUNGAL) 2 % cream Apply 1 application to affected area twice daily. To perirectal and buttocks area INGREZZA 80 mg capsule Take 1 tablet by mouth once daily. Zinc Oxide 40 % oint Apply to affected area as needed. fluPHENAZine (PROLIXIN) 1 mg tablet Take 3 mg by mouth once daily. VRAYLAR 3 mg cap Take 3 mg by mouth daily at bedtime. white petrolatum-mineral oil (EUCERIN) cream Apply 1 application to affected area as needed for Dry Skin (all dry skin areas). triamcinolone acetonide (KENALOG) 0.1 % cream Apply 1 application to affected area three times a day. Apply sparingly to area for rash/itching till rash resolves. For contact dermatitis metroNIDAZOLE (FLAGYL) 500 mg tablet Take 1 tablet by mouth three times a day for 14 days. May extend course as directed or take for recurrent infection as directed Nebulizer Accessories [facility] Needs new nebulizer mask (mouthpiece), hose and supplies. (J45.20) Intermittent asthma without complication insulin needles, DISPOSABLE, (PEN NEEDLE) 31 gauge x 5/16 Use one needle per dose (Lantus and Humalog). 5 per day. topiramate (TOPAMAX) 200 mg tablet Take 200 mg by mouth once daily. (Patient not taking: Reported on 04/29/2024) blood sugar diagnostic (BLOOD GLUCOSE TEST) test strip Test blood sugar(s) 4 times daily. Dx: Type 2 DM - Uncontrolled Insulin: Yes Insurance covers One Touch or Accucheck alcohol swabs (SURE-PREP ALCHOLOL PREP PADS) Test blood sugars 4 x's daily. Dx: Insulin: Yes nystatin (MYCOSTATIN) 100,000 unit/mL suspension Take 5 mL by mouth four times daily. 1tsp swish in mouth for several minutes, then swallow (or expectorate) 4 times daily until gone. (Patient not taking: Reported on 04/29/2024) Ostomy Supplies [facility] Ref# [id number] 10 to a box, 3 boxes 2. [facility] Prote[facility] Wipes Ref # [id number] 1 box = 50 wipes, 3 boxes 3. [facility] Adhesive Glue Ref # [id number] 2 oz tube, 3 tubes 4. [facility] Stoma Adhesive Powder Ref # [id number] 1 oz bottle, 3 bottles 5. [facility] Stoma Bags Ref # [id number] 10 in a box, 3 boxes blood sugar diagnostic (BLOOD GLUCOSE TEST) test strip Test blood sugar(s) 4 times daily and as needed as directed. Dx: Type 2 DM - Uncontrolled Insulin: Yes Lancets lancets Test blood sugar(s) 1 times daily and as needed. Dx: Type 2 DM - Uncontrolled Insulin: Yes Nebulizer and Compressor For Neb 1 Each as needed (Use as directed for treatment of asthma). Ostomy Supplies (ADHESIVE REMOVER WIPES) swab [employer] brand. Use as directed Nebulizer Accessories [facility] Needs new nebulizer mask, hose and supplies. (J45.20) Intermittent asthma without complication Nebulizer New (not refurbished) NEBULIZER FOR HOME USE with Duoneb 4 x a day. DX: J45.909, Z87.09. Lifetime supplies of mask/tubing, patient has tracheostomy. blood sugar diagnostic (FREESTYLE INSULINX) test strip Test blood sugar(s) 4 times daily and as needed. Dx: Type 2 DM - Uncontrolled E11.65 Insulin: Yes No current facility-administered medications for this visit. 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 Magnesium Deficiency - 06/14/2020 Comment: Replacement discussed. 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 Medical Marijuana Review of Systems Respiratory: Negative. Cardiovascular: Negative. Musculoskeletal: Positive for arthralgias, back pain and myalgias. OBJECTIVE BP 124/52 Pulse 56 Wt 173 lb 4.5 oz (78.6kg) SpO2 97% Physical Exam Vitals and nursing [...] memory normal. Judgment: Judgment normal. ASSESSMENT/PLAN: 1. Fibromyalgia - ICD9: 729.1, ICD10: M79.7 (primary diagnosis) Desires to continue on Nucynta. 2. Chronic midline low back pain, unspecified whether sciatica present - ICD9: 724.2, 338.29, ICD10: M54.50, G89.29 See above. 3. Chronic, continuous use of opioids - ICD9: 305.51, ICD10: F11.90 See above. - TOXICOLOGY SCREEN, ROUTINE URINE 4. Fistula - ICD9: 686.9, ICD10: L98.8 - METRONIDAZOLE 500 MG TABLET 5. Chronic obstructive pulmonary disease, unspecified COPD type (HCC) - ICD9: 496, ICD10: J44.9 - [id number] 6. Diabetic peripheral neuropathy associated with type 2 diabetes mellitus (HCC) - ICD9: 250.60, 357.2, ICD10: E11.42 - Control undetermined, due for labs - Continue current medications - ALBUMIN/CREATININE RATIO, URINE 7. Type 2 diabetes mellitus without complication, with long-term current use of insulin (HCC) - ICD9: 250.00, V58.67, ICD10: E11.9, Z79.4 - Control undetermined, due for labs - Continue current medications - HEMOGLOBIN A1C - ALBUMIN/CREATININE RATIO, URINE 8. Iron deficiency anemia, unspecified iron deficiency anemia type - ICD9: 280.9, ICD10: D50.9 - IRON AND TIBC - FERRITIN 9. Encounter for therapeutic drug monitoring - ICD9: V58.83, ICD10: Z51.81 - COMPLETE BLOOD COUNT AND DIFFERENTIAL - COMPREHENSIVE METABOLIC PANEL - TOXICOLOGY SCREEN, ROUTINE URINE 10. Encounter for screening mammogram for breast cancer - ICD9: V76.12, ICD10: Z12.31 - URIEL SCREENING W WILLIAM Portions of this note have been entered [...] Age-appropriate health preventative measures were discussed. Return in about 3 months (around 08/28/2024) for Follow up on chronic conditions and medications.. PAULETTE Louis documented in this encounter [facility] 05-21-2024 Telephone encounter Note Pt notified. Appt scheduled 05/28/24 Zenaida Donnelly MA [facility] 05-21-2024 Miscellaneous Notes Pt notified. Appt scheduled 05/28/24 Zenaida Donnelly MA Attempted to reach patient at home number with no answer and unable to leave a message due to mailbox is full. Patient needs to reschedule April appointment that was missed or will need to wean off Nucynta if cannot be seen every 3 months per [facility] protocol. Was told in April that needed to keep the appointment--not sure if was not able to come in due to weather or health issues since was listed as No Show on the schedule. Can give 14 day supply at a time till is seen then can give 28 day supply. If does not come in for follow up in the next month , will taper off Nucynta. per protocol. The following approved medication requests have been transmitted electronically. Requested Prescriptions Signed Prescriptions Disp Refills tapentadol (NUCYNTA) 75 mg tab 28 tablet 0 Sig: Take 1 tablet by mouth two times a day as needed for up to 14 days. Patient should start on May 23, 2024. Authorizing Provider: TIFF PEARSON MD I will work into schedule or she can see Esteban any time in the next week or so. . The patient has been identified by name and date of : Yes, pharmacy Caregiver verified no other encounters exist for this prescription request: Yes Caregiver confirmed with patient/requestor that no other refills are due, in the near future, with this provider at this time: Yes The last office visit in the department: 01/29/2024 Does the patient have a future office visit with this provider/department: Yes 07/23/2024 Requested Prescriptions Pending Prescriptions Disp Refills tapentadol (NUCYNTA) 75 mg tab 56 tablet 0 Sig: Take 1 tablet by mouth two times a day as needed for up to 28 days. Carmenza Vasquez LPN May 17, 2024 9:20 AM documented in this encounter [facility] 05-20-2024 Telephone encounter Note Attempted to reach patient at home number with no answer and unable to leave a message due to mailbox is full. [facility] 05-17-2024 Telephone encounter Note Patient needs to reschedule April appointment that was missed or will need to wean off Nucynta if cannot be seen every 3 months per [facility] protocol. Was told in April that needed to keep the appointment--not sure if was not able to come in due to weather or health issues since was listed as No Show on the schedule. Can give 14 day supply at a time till is seen then can give 28 day supply. If does not come in for follow up in the next month , will taper off Nucynta. per protocol. The following approved medication requests have been transmitted electronically. Requested Prescriptions Signed Prescriptions Disp Refills tapentadol (NUCYNTA) 75 mg tab 28 tablet 0 Sig: Take 1 tablet by mouth two times a day as needed for up to 14 days. Patient should start on May 23, 2024. Authorizing Provider: TIFF PEARSON MD I will work into schedule or she can see Esteban any time in the next week or so. . T [facility] 05-17-2024 Telephone encounter Note The patient has been identified by name and date of : Yes, pharmacy Caregiver verified no other encounters exist for this prescription request: Yes Caregiver confirmed with patient/requestor that no other refills are due, in the near future, with this provider at this time: Yes The last office visit in the department: 01/29/2024 Does the patient have a future office visit with this provider/department: Yes 07/23/2024 Requested Prescriptions Pending Prescriptions Disp Refills tapentadol (NUCYNTA) 75 mg tab 56 tablet 0 Sig: Take 1 tablet by mouth two times a day as needed for up to 28 days. Carmenza Vasquez LPN May 17, 2024 9:20 AM [facility] 04-29-2024 Telephone encounter Note Patient calls and states that [facility] cannot give her another nebulizer unless doctor says that previous nebulizer machine is broken. Patient has appointment with provider on 05/01/2024. Advised patient to talk about nebulizer being broken at appointment that way it can be charted by PCP and [facility] Patient voices understanding. Quinaa Jett RN [facility] 04-29-2024 Miscellaneous Notes Patient calls and states that [facility] cannot give her another nebulizer unless doctor says that previous nebulizer machine is broken. Patient has appointment with provider on 05/01/2024. Advised patient to talk about nebulizer being broken at appointment that way it can be charted by PCP and then faxed to [facility]. Patient voices understanding. Quiana Jett RN documented in this encounter [facility] 04-29-2024 History of Presen t illness Narrative Last saw pcp: 01/29/24 Subjective: Patient presents to clinic c/o painful toenails. They state that the nails are especially painful with shoe gear and pressure. Patient states that nails 1-5 b/l are painful. Patient admits to being diabetic. Requesting order for diabetic shoe. No other pedal complaints at this time. Patient states no change in medications or medical history since last visit. Objective: Patient presents to clinic ambulating in diabetic shoe Vasc: DP and PT pulses are palpable [...] pedal groups tested. Ankle joint DF is decreased with the knee extended with no pain or crepitus noted. 1st MPJ ROM is decreased bilateral. Small bunion of left foot Assessment: (B35.1) Onychomycosis (primary encounter diagnosis) (M79.674) Pain in toe of right foot (M79.675) Pain in toe of left foot (E11.49) Other diabetic neurological complication associated with type 2 diabetes mellitus (HCC) (M20.12) Hallux valgus of left foot Plan: Patient was seen and evaluated. Nails 1-5 bilateral were debrided in length and thickness. Patient was instructed on the continued importance of diabetic foot care along with proper diet and keeping their blood sugar under control to prevent complications. I stressed the importance of avoiding barefoot walking, wearing good shoes and inspection of feet. I discussed how this patient suffers from neuropathy and that it is important that she monitor for any open wounds. If she develops any issues, she is to contact our office immediately and we will have them seen. Because of diabetes and neuropathy in presence of having a bunion, I do feel that a diabetic shoe is necessary. For this reason, diabetic shoes were ordered Patient is to RTC in 3-4 months. Suzanna Escalante DPM Patient presents with: Left Foot - Established Patient, Follow Up, Diabetic Foot Care Right Foot - Established Patient, Follow Up, Diabetic Foot Care Patient presents for follow up diabetic nail care. DEISY 11/09/23 documented in this encounter [facility] 04-29-2024 Instructions Suzanna Escalante - 04/29/2024 2:32 PM EST Diabetes Foot Care Instructions When you have [...] (or decreased sensation in your feet) a reverse engineer should always cut your toenails. Be Careful [...] Go to your health care provider or reverse engineer to treat these conditions. documented in this encounter [facility] 04-23-2024 Telephone encounter Note The patient has been identified by name and date of : Yes, pharmacy Caregiver verified no other encounters exist for this prescription request: Yes Caregiver confirmed with patient/requestor that no other refills are due, in the near future, with this provider at this time: Yes The last office visit in the department: 01/29/2024 Does the patient have a future office visit with this provider/department: Yes 05/01/2024 Requested Prescriptions Pending Prescriptions Disp Refills glimepiride (AMARYL) 4 mg tablet 45 tablet 11 Sig: Take 1 tablet by mouth daily with breakfast. Patient may take an extra half pill once a day for blood sugars over 200. Carmenza Vasquez LPN April 23, 2024 11:40 AM [facility] 04-23-2024 Miscellaneous Notes The patient has been identified by name and date of : Yes, pharmacy Caregiver verified no other encounters exist for this prescription request: Yes Caregiver confirmed with patient/requestor that no other refills are due, in the near future, with this provider at this time: Yes The last office visit in the department: 01/29/2024 Does the patient have a future office visit with this provider/department: Yes 05/01/2024 Requested Prescriptions Pending Prescriptions Disp Refills glimepiride (AMARYL) 4 mg tablet 45 tablet 11 Sig: Take 1 tablet by mouth daily with breakfast. Patient may take an extra half pill once a day for blood sugars over 200. Carmenza Vasqeuz LPN April 23, 2024 11:40 AM documented in this encounter [facility] 04-22-2024 Telephone encounter Note Verified appt. Rama Burroughs RN [facility] 04-22-2024 Miscellaneous Notes Verified appt. Rama Burroughs RN Remind her that she zapata a April follow up appointment--needs to keep appointment in order to be able to keep refilling this med The following approved medication requests have been transmitted electronically. Requested Prescriptions Signed Prescriptions Disp Refills tapentadol (NUCYNTA) 75 mg tab 56 tablet 0 Sig: Take 1 tablet by mouth two times a day as needed for up to 28 days. Patient should start on April 25, 2024. Authorizing Provider: TIFF PEARSON MD The patient has been identified by name and date of : Yes Caregiver verified no other encounters exist for this prescription request: Yes Caregiver confirmed with patient/requestor that no other refills are due, in the near future, with this provider at this time: Yes The last office visit in the department: 01/29/2024 Does the patient have a future office visit with this provider/department: 05/01/2024 Requested Prescriptions Pending Prescriptions Disp Refills tapentadol (NUCYNTA) 75 mg tab 56 tablet 0 Sig: Take 1 tablet by mouth two times a day as needed for up to 28 days. Rama Burroughs RN April 19, 2024 8:18 AM documented in this encounter [facility] 04-22-2024 Telephone encounter Note Radha Buck calls back and requests orders be sent to [facility]. Radha reports that [facility] is in network but has an exclusion for the nebulizer unit and supplies. Faxed orders and demographics to [facility] as requested. Call placed to patient and notified. Rama Burroughs RN [facility] 04-22-2024 Miscellaneous Notes Radha Buck calls back and requests orders be sent to [facility] in [facility]. Radha reports that [facility] is in network but has an exclusion for the nebulizer unit and supplies. Faxed orders and demographics to [facility] as requested. Call placed to patient and notified. Rama Burroughs RN Radha Buck called and they do cover nebulizer and supplies. She is going to check to see if [facility] is in network and if not will call back if order needs sent to another DME company. Patient and phoned in stating [facility] is not sending the nebulizer with supplies. This nurse phoned [facility] at [phone], and was informed they received the Rx 3 days ago, and the primary and secondary insurance both informed them a nebulizer and supplies is not covered. Reports it is excluded under patient's plan. Reports a prior auth would not get the nebulizer and supplies covered because these are excluded. reports patient is suppose to be getting 4 breathing treatments a day. Asking what can they do. Please advise patient. [phone] documented in this encounter [facility] 04-22-2024 Telephone encounter Note Radha from [facility] called and they do cover nebulizer and supplies. She is going to check to see if [facility] is in network and if not will call back if order needs sent to another [employer] company. [facility] 04-22-2024 Telephone encounter Note Patient and phoned in stating [facility] is not sending the nebulizer with supplies. This nurse phoned [facility] at [phone], and was informed they received the Rx 3 days ago, and the primary and secondary insurance both informed them a nebulizer and supplies is not covered. Reports it is excluded under patient's plan. Reports a prior auth would not get the nebulizer and supplies covered because these are excluded. reports patient is suppose to be getting 4 breathing treatments a day. Asking what can they do. Please advise patient. [phone] [facility] 04-20-2024 Telephone encounter Note Remind her that she zapata a April follow up appointment--needs to keep appointment in order to be able to keep refilling this med The following approved medication requests have been transmitted electronically. Requested Prescriptions Signed Prescriptions Disp Refills tapentadol (NUCYNTA) 75 mg tab 56 tablet 0 Sig: Take 1 tablet by mouth two times a day as needed for up to 28 days. Patient should start on April 25, 2024. Authorizing Provider: TIFF PEARSON MD [facility] 04-19-2024 Telephone encounter Note Order faxed to [facility] [phone] . [facility] 04-19-2024 Miscellaneous Notes Order faxed to [facility] [phone] . Patient calls to report that the nebulizer supplies that she received do not fit her current nebulizer unit. [facility] sent her 4 different kinds and none of them will work for her machine. Patient reports that she contacted [facility] and she was told to call her physician and request an order for a new nebulizer unit and then they could send her a machine compatible with supplies. Pended order with diagnosis from previous orders in 2019. Patient requests this be sent high priority as she has not been able to do her nebulizer treatments for almost 3 weeks. Please review and advise. Rama Burroughs RN documented in this encounter [facility] 04-19-2024 Telephone encounter Note The patient has been identified by name and date of : Yes Caregiver verified no other encounters exist for this prescription request: Yes Caregiver confirmed with patient/requestor that no other refills are due, in the near future, with this provider at this time: Yes The last office visit in the department: 01/29/2024 Does the patient have a future office visit with this provider/department: 05/01/2024 Requested Prescriptions Pending Prescriptions Disp Refills tapentadol (NUCYNTA) 75 mg tab 56 tablet 0 Sig: Take 1 tablet by mouth two times a day as needed for up to 28 days. Rama Bruroughs RN April 19, 2024 8:18 AM [facility] 04-17-2024 Telephone encounter Note Patient calls to report that the nebulizer supplies that she received do not fit her current nebulizer unit. [facility] sent her 4 different kinds and none of them will work for her machine. [facility] and she was told to call her physician and request an order for a new nebulizer unit and then they could send her a machine compatible with supplies. Pended order with diagnosis from previous orders in 2019. Patient requests this be sent high priority as she has not been able to do her nebulizer treatments for almost 3 weeks. Please review and advise. Rama Burroughs RN [facility] 04-01-2024 Telephone encounter Note Spoke with Titi at [facility] and the faxes and any requested information has been received back to be able to fill/ship and bill for ostomy and nebulizer supplies. Viviana Morillo LPN [facility] 04-01-2024 Miscellaneous Notes Spoke with Titi at [facility] and the faxes and any requested information has been received back to be able to fill/ship and bill for ostomy and nebulizer supplies. Viviana Morillo LPN Selin from [facility] calling to see if Dr. Pearson' office received by fax a detailed written order from them for pt's Nebulizer accessories. Selin states they received an order from Dr. Pearson' office on 03/15/24 but they cannot accept that order. [facility] is going to refax the detailed written order again at this time. She is hoping for provider to get his filled out as soon as possible so they can get the supplies to the patient. documented in this encounter [facility] 03-27-2024 Telephone encounter Note [facility] calling to see if Dr. Pearson' office received by fax a detailed written order from them for pt's Nebulizer accessories. Selin states they received an order from Dr. Pearson' office on 03/15/24 but they cannot accept that order. Selin is going to refax the detailed written order again at this time. She is hoping for provider to get his filled out as soon as possible so they can get the supplies to the patient. [facility] 03-22-2024 Telephone encounter Note The following approved medication requests have been transmitted electronically. Requested Prescriptions Signed Prescriptions Disp Refills tapentadol (NUCYNTA) 75 mg tab 56 tablet 0 Sig: Take 1 tablet by mouth two times a day as needed for up to 28 days. Patient should start on March 28, 2024. Authorizing Provider: TIFF PEARSON MD [facility] 03-22-2024 Miscellaneous Notes The following approved medication requests have been transmitted electronically. Requested Prescriptions Signed Prescriptions Disp Refills tapentadol (NUCYNTA) 75 mg tab 56 tablet 0 Sig: Take 1 tablet by mouth two times a day as needed for up to 28 days. Patient should start on March 28, 2024. Authorizing Provider: TIFF PEARSON MD The patient has been identified by name and date of : Yes Caregiver verified no other encounters exist for this prescription request: Yes Caregiver confirmed with patient/requestor that no other refills are due, in the near future, with this provider at this time: Yes The last office visit in the department: 01/29/2024 Does the patient have a future office visit with this provider/department: Yes 05/01/2024 Requested Prescriptions Pending Prescriptions Disp Refills tapentadol (NUCYNTA) 75 mg tab 56 tablet 0 Sig: Take 1 tablet by mouth two times a day as needed for up to 28 days. Monique Dunn RN March 21, 2024 4:34 PM documented in this encounter [facility] 03-21-2024 Telephone encounter Note The patient has been identified by name and date of : Yes Caregiver verified no other encounters exist for this prescription request: Yes Caregiver confirmed with patient/requestor that no other refills are due, in the near future, with this provider at this time: Yes The last office visit in the department: 01/29/2024 Does the patient have a future office visit with this provider/department: Yes 05/01/2024 Requested Prescriptions Pending Prescriptions Disp Refills tapentadol (NUCYNTA) 75 mg tab 56 tablet 0 Sig: Take 1 tablet by mouth two times a day as needed for up to 28 days. Monique Dunn RN March 21, 2024 4:34 PM [facility] 03-15-2024 Note Discharge Instructio ns Discharge Summary [facility] [address] [place] [address] [phone] 03/15/2024 Patient: GUTIERREZ HOBSON Sex: Female : 1960 Age: 63y Thank you for visiting [facility]. You have been evaluated today by Christel Warner D.O. for the following condition(s): Principal Diagnosis COVID-19. INSTRUCTIONS Prescription Medications: tessalon: Take 1 tablet by mouth every six to eight hours for 5 days, dispense 20 tablet. Refills 0. Pharmacy: [facility] [id number] [place] [address]. Follow-up: Follow up with your doctor in four days. Call for an appointment. Reason for referral: follow up Dr. Allen is next week. Return if any problems or concerns. You have been given the following additional information: Coronavirus Disease 2019 (COVID-19): Overview Patient Signature 1 of 8 Discharge Instructions Facility 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 Specialist Date/Time General Instructions with [facility] [address] [address] [phone] 03/15/2024 Patient: GUTIERREZ HOBSON Sex: Female : 1960 Age: 63y Thank you for visiting [facility]. You have been evaluated today by Christel Warner D.O. for the following condition(s): Principal Diagnosis COVID-19. INSTRUCTIONS Prescription Medications: tessalon: Take 1 tablet by mouth every six to eight hours for 5 days, dispense 20 tablet. Refills 0. Pharmacy: [facility] [id number] [place] [address]. Follow-up: Follow up with your doctor in four days. Call for an appointment. Reason for referral: follow up Dr. Allen is next week. Return if any problems or concerns. ADDITIONAL INFORMATION 2 of 8 Discharge Instructions Coronavirus Disease 2019 (COVID-19): Overview Coronavirus disease 2019 (COVID-19) is an illness that infects the lungs. It's caused by a type of coronavirus. The virus is called SARS-CoV-2. There are many types of coronaviruses. They are a common cause of colds and bronchitis. They can cause a lung infection called pneumonia. Symptoms can range from mild to severe. Some people have no symptoms. These types of viruses are also found in some animals. Viruses change (mutate) all the time. The changes lead to different forms of a virus. These are called variants. COVID-19 variants may spread more easily from person to person. They may cause milder symptoms. Or they may cause more severe symptoms. The virus spreads and infects people easily. It can infect a person more easily if they are not immune to it. The virus most often spreads through droplets of fluid that a person coughs or sneezes into the air. In some cases, you can get it from touching a surface with the virus on it and then touching your eyes, nose, or mouth. To help prevent spreading the infection, wash your hands often, or use an alcohol-based hand director ehs. To learn more For the latest from the [facility]: Go to the [facility] website Call [phone] ([phone]) 3 of 8 Discharge Instructions What are the symptoms of COVID-19? Some people have no symptoms. Some have mild symptoms. Others may have severe symptoms. This varies from person to person. Symptoms may start 2 to 14 days after contact with the virus. They can include: Fever Chills Coughing Trouble breathing or feeling short of breath Sore throat Stuffy or runny nose Headache Body aches Tiredness Nausea, vomiting, diarrhea, or belly pain New loss of sense of smell or taste Check your symptoms with the CDC's Coronavirus Self-Director [employer]. What are possible complications of COVID-19? The virus can cause an infection in the lungs. This is called pneumonia. This can lead to in some cases. Experts are still learning more about COVID-19 problems. Problems may include: Low blood pressure Kidney failure Inflammation of the brain or heart Rashes Some people are at higher risk for problems. This includes: Older adults People with heart or lung disease People with diabetes or kidney disease People with health conditions that limit the immune system People who take medicines that limit the immune system 4 of 8 Discharge Instructions Rarely, a child may have a severe complication. This is called multisystem inflammatory syndrome in children (MIS-C). MIS-C seems to be like Kawasaki disease. This is a rare illness. It causes swelling of blood vessels and body organs. MIS can also happen in adults. But this is less common. How is COVID-19 diagnosed? Your healthcare provider will ask: What symptoms you have Where you live If you've traveled recently If you've had contact with sick people If y (more content not included)... [facility] 03-15-2024 Telephone encounter Note Prescription faxed to [facility] at the number below as requested [facility] 03-15-2024 Miscellaneous Notes Prescription faxed to [facility] at the number below as requested OK, please process Patient calls to request an order for nebulizer tubing with the mouthpiece be sent to [facility]. Current order has . Print prescription pended per request to go to [employer]. Fax number is [phone] Rama Burroughs RN documented in this encounter [facility] 03-15-2024 Telephone encounter Note OK, please process [facility] 03-14-2024 Telephone encounter Note Patient calls to request an order for nebulizer tubing with the mouthpiece be sent to [facility]. Current order has . Print prescription pended per request to go to [facility] [employer] [facility]. Fax number is [phone] Rama Burroughs RN [facility] 03-06-2024 Telephone encounter Note Patient returning call regarding Covid test result. Provider message read to patient stating positive result. (See below) Patient states understanding. Patient denies any new or worsening symptoms of which a provider is not aware:Yes . Secure voice mail - You were positive for Covid. Continue comfort measures as discussed at visit. Follow up with PCP as needed. Annmarie Castillo APRN.CNP [facility] 03-06-2024 Miscellaneous Notes Patient returning call regarding Covid test result. Provider message read to patient stating positive result. (See below) Patient states understanding. Patient denies any new or worsening symptoms of which a provider is not aware:Yes . Secure voice mail - You were positive for Covid. Continue comfort measures as discussed at visit. Follow up with PCP as needed. Annmarie Castillo APRN.CNP documented in this encounter [facility] 03-06-2024 Telephone encounter Note Secure voice mail - You were positive for covid. Continue comfort measures as discussed at visit. Follow up with PCP as needed. Annmarie Castillo APRN.CNP [facility] Work Phone: 03-06-2024 Miscellaneous Notes Secure voice mail - You were positive for covid. Continue comfort measures as discussed at visit. Follow up with PCP as needed. Annmarie Castillo APRN.CNP documented in this encounter [facility] 03-05-2024 History of Presen t illness Narrative Patient presents with: Nasal Congestion: drainage, cough, headache x 3-4 days HPI: Feeling sick for 4 days Positive symptoms: Cough, Nasal Congestion, Rhinorrhea, Post nasal drainage, Headache, chills, body aches, sore throat Negative symptoms: Shortness of breath, Chest pain, Fever, Nausea, Vomiting, Diarrhea, OTC: Ibuprofen, Tylenol 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 02/05/2010 Diabetes ([facility]) 1999 On insulin 2015 Dyslipidemia Encephalopathy in sepsis 02/28/2015 CT head and EEG done to confirm Endogenous endophthalmitis Fecal soiling due to fecal incontinence 10/10/2023 Hematoma 06/17/2016 Hematuria, unspecified 04/09/2008 UA with [...] in limb 02/05/2010 Paranoid schizophrenia, chronic condition ([facility]) 1985 Peptic ulcer, unspecified site, unspecified as [...] 03/14 -- follow daily CBC and coags 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 In addition there are small edema bullae on the abdominal wall Both require gentle wound care and emollients such as aquaphor or petroleum jelly -- monitor Tracheostomy in place ([facility]) Placed 2015 after prolonged respiratory failure, unable to liberate from vent. Unspecified migraine 1998 Ventral hernia with bowel obstruction 09/10/2016 Added automatically from request for surgery [id number] VRE bacteremia 09/29/2016 MEDICATIONS: Current Outpatient Medications Medication Sig nystatin (MYCOSTATIN) powder Apply 1 application to affected area four times a day as needed. pravastatin (PRAVACHOL) 40 mg tablet Take 1 tablet by mouth once daily. insulin glargine (LANTUS SOLOSTAR U-100 INSULIN) 100 unit/mL (3 mL) Inject 16 Units subcutaneously every morning AND 2 Units every morning. Adjust as directed (2 units to prime pen needle) or as directed. tapentadol (NUCYNTA) 75 mg tab Take 1 tablet by mouth two times a day as needed for up to 28 days. Patient should start on February 29, 2024. guaiFENesin (MUCINEX) 600 mg 12 hr tablet Take 2 tablets by mouth two times a day. traZODone (DESYREL) 100 mg tablet Take 1 tablet by mouth daily at bedtime. insulin needles, DISPOSABLE, (PEN NEEDLE) 31 gauge x 5/16 Use one needle per dose (Lantus and Humalog). 5 per day. magnesium oxide (MAG-OX) 400 mg (241.3 mg magnesium) tablet Take 1 tablet by mouth daily at bedtime. topiramate (TOPAMAX) 100 mg tablet Take 100 mg by mouth two times a day. topiramate (TOPAMAX) 200 mg tablet Take 200 mg by mouth once daily. hyoscyamine sublingual (LEVSIN SL) 0.125 mg Dissolve 1 tablet under the tongue every 6 hours as needed (epigastric discomfort). blood sugar diagnostic (BLOOD GLUCOSE TEST) test strip Test blood sugar(s) 4 times daily. Dx: Type 2 DM - Uncontrolled E11.65 Insulin: Yes Insurance covers One Touch or Accucheck iron polysaccharide complex (FERREX 150) 150 mg iron capsule Take 1 capsule by mouth every Monday, Monday, and Monday. (Patient taking differently: Take 150 mg by mouth two times a week.) melatonin 10 mg tab Take 1 tablet by mouth at bedtime as needed for insomnia. hydrocortisone 2.5 % cream Apply 1 application to affected area two times a day as needed. Location: neck (reaction to tape adhesive) May also use for poison tania. Use up to 14 days per episode of rash. alcohol swabs (SURE-PREP ALCHOLOL PREP PADS) Test blood sugars 4 x's daily. Dx: E11.65 Insulin: Yes clotrimazole (LOTRIMIN) 1 % cream Apply to affected area two times a day. ipratropium-albuterol (DUONEB) 0.5 mg-3 mg(2.5 mg base)/3 mL nebu Inhale 3 mL as instructed four times a day as needed (wheezing). Use over 5-15minutes per nebulizer. fluticasone-salmeterol (ADVAIR DISKUS) 100-50 mcg/dose inhaler Inhale 1 Puff as instructed two times a day. Rinse mouth out after use with water. nystatin (MYCOSTATIN) 100,000 unit/mL suspension Take 5 mL by mouth four times daily. 1tsp swish in mouth for several minutes, then swallow (or expectorate) 4 times daily until gone. omeprazole (PRILOSEC) 20 mg capsule Take 1 capsule by mouth once daily. triamcinolone acetonide (KENALOG) 0.1 % cream Apply 1 application to affected area three times a day. Apply sparingly to area for rash/itching till rash resolves. For contact dermatitis glimepiride (AMARYL) 4 mg tablet Take 1 tablet by mouth daily with breakfast. Patient may take an extra half pill once a day for blood sugars over 200. lidocaine (LMX) 4 % cream Apply to affected area four times a day as needed (for painful sore in rectal area as directed). Ostomy Supplies [facility] 1. Convatec Flanges Ref# [id number] 10 to a box, 3 boxes 2. [facility] Protective Barrier Wipes Ref # [id number] 1 box = 50 wipes, 3 boxes 3. [employer]vate Adhesive Glue Ref # [id number] 2 oz tube, 3 tubes 4. [employer] Stoma Adhesive Powder Ref # [id number] 1 oz bottle, 3 bottles 5. [employer] Stoma Bags Ref # [id number] 10 in a box, 3 boxes blood sugar diagnostic (BLOOD GLUCOSE TEST) test strip Test blood sugar(s) 4 times daily and as needed as directed. Dx: Type 2 DM - Uncontrolled E11.65 Insulin: Yes ketoconazole (NIZORAL) 2 % cream Apply 1 application to affected area once daily. as needed Lancets lancets Test blood sugar(s) 1 times daily and as needed. Dx: Type 2 DM - Uncontrolled E11. Insulin: Yes miconazole (CADENCE ANTIFUNGAL) 2 % cream Apply 1 application to affected area twice daily. To perirectal and buttocks area INGREZZA 80 mg capsule Take 1 tablet by mouth once daily. Nebulizer and Compressor For Neb 1 Each as needed (Use as directed for treatment of asthma). Nebulizer Accessories [facility] Needs new nebulizer mask, hose and supplies. (J45.20) Intermittent asthma without complication Zinc Oxide 40 % oint Apply to affected area as needed. Ostomy Supplies (ADHESIVE REMOVER WIPES) swab [employer] brand. Use as directed fluPHENAZine (PROLIXIN) 1 mg tablet Take 3 mg by mouth once daily. Nebulizer Accessories [facility] Needs new nebulizer mask, hose and supplies. (J45.20) Intermittent asthma without complication Nebulizer New (not refurbished) NEBULIZER FOR HOME USE with Duoneb 4 x a day. DX: J45.909, Z87.09. Lifetime supplies of mask/tubing, patient has tracheostomy. blood sugar diagnostic (FREESTYLE INSULINX) test strip Test blood sugar(s) 4 times daily and as needed. Dx: Type 2 DM - Uncontrolled E11.65 Insulin: Yes VRAYLAR 3 mg cap Take 3 mg by mouth daily at bedtime. white petrolatum-mineral oil (EUCERIN) cream Apply 1 application to affected area as needed for Dry Skin (all dry skin areas). benzonatate (TESSALON PERLE) 100 mg capsule Take 2 capsules by mouth three times a day as needed. (Patient not taking: Reported on 03/05/2024) No current facility-administered medications for this visit. [...] [Hydrocodon* Rash Zithromax [Azithrom* Rash VITALS: BP 128/74 Pulse 68 Temp 36.8 C (98.2 F) Resp 18 Wt 81.6 kg (179 lb 14.3 oz) SpO2 97% BMI 29.04 kg/m PHYSICAL EXAM: GEN: mildly ill appearing HEENT: PERRL, EOMI, conjunctiva clear Ears: canals clear. TMs without erythema, bulge, or effusion Sinuses: non-tender frontal sinus, non-tender maxillary sinuses Throat: moist mucous membranes, mild erythema, no exudate Neck: supple, no thyromegaly, no lymphadenopathy HEART: regular rate, regular rhythm, no murmurs LUNGS: initial wheezes, clear to auscultation after deep breaths, no increased WOB ASSESSMENT/PLAN: 1. URI, acute - ICD9: 465.9, ICD10: J06.9 - COVID & INFLUENZA A/B & RSV PCR, ROUTINE - suspect viral URI - Discussed supportive care treatment with rest, cold medicine, and analgesia. Follow up with worsening cough, worsening shortness of breath, increasing chest pain, or late onset fever. Anthony Lizarraga MD documented in this encounter [facility] 02-22-2024 Telephone encounter Note Completed and faxed back to the number on the form. [facility] 02-22-2024 Miscellaneous Notes Completed and faxed back to the number on the form. Sanaz with [employer] calls to ask if provider's office received incontinence supply orders/forms last week. Sanaz to re-fax to [phone] incase not received previously. Rama Burroughs RN documented in this encounter [facility] 02-21-2024 Telephone encounter Note Sanaz with [employer] calls to ask if provider's office received incontinence supply orders/forms last week. Sanaz to re-fax to [phone] incase not received previously. Rama Burroughs RN [facility] 01-29-2024 Telephone encounter Note The following approved medication requests have been transmitted electronically. Requested Prescriptions Signed Prescriptions Disp Refills guaiFENesin (MUCINEX) 600 mg 12 hr tablet 112 tablet 11 Sig: Take 2 tablets by mouth two times a day. Authorizing Provider: TIFF PEARSON MD [facility] 01-29-2024 Miscellaneous Notes The following approved medication requests have been transmitted electronically. Requested Prescriptions Signed Prescriptions Disp Refills guaiFENesin (MUCINEX) 600 mg 12 hr tablet 112 tablet 11 Sig: Take 2 tablets by mouth two times a day. Authorizing Provider: TALTIFF KISER MD The patient has been identified by name and date of : Yes Caregiver verified no other encounters exist for this prescription request: Yes Caregiver confirmed with patient/requestor that no other refills are due, in the near future, with this provider at this time: Yes The last office visit in the department: 01/29/2024 Does the patient have a future office visit with this provider/department: Yes 05/01/2024 Requested Prescriptions Pending Prescriptions Disp Refills guaiFENesin (MUCINEX) 600 mg 12 hr tablet 112 tablet 11 Sig: Take 2 tablets by mouth two times a day. Susan Freitas LPN January 29, 2024 4:57 PM documented in this encounter [facility] 01-29-2024 Telephone encounter Note The patient has been identified by name and date of : Yes Caregiver verified no other encounters exist for this prescription request: Yes Caregiver confirmed with patient/requestor that no other refills are due, in the near future, with this provider at this time: Yes The last office visit in the department: 01/29/2024 Does the patient have a future office visit with this provider/department: Yes 05/01/2024 Requested Prescriptions Pending Prescriptions Disp Refills guaiFENesin (MUCINEX) 600 mg 12 hr tablet 112 tablet 11 Sig: Take 2 tablets by mouth two times a day. Susan Freitas LPN January 29, 2024 4:57 PM [facility] 01-29-2024 Telephone encounter Note Pt was seen in office today. Zenaida Donnelly MA [facility] 01-29-2024 Miscellaneous Notes Pt was seen in office today. Zenaida Donnelly MA Message left for pt to call back For message below. Pt called in earlier today and was advised on the trazodone. Zenaida Donnelly MA Not sure why RX was pended for 21 days but switched to 28 and dated for 28 days from last RX. This will be the last 28 day RX I can send if not seen by 02/28 per [facility] policy. After that date, will need to taper the dose from 75 mg to 50 mg twice daily with RX for 2 weeks, then 50 mg once daily for 2 weeks then stop med if not seen for follow up See other encounter about trazodone RX. Does not look like was addressed yet. The following approved medication requests have been transmitted electronically. Requested Prescriptions Signed Prescriptions Disp Refills tapentadol (NUCYNTA) 75 mg tab 56 tablet 0 Sig: Take 1 tablet by mouth two times a day for 28 days. Patient should start on February 01, 2024. Authorizing Provider: TIFF PEARSON MD The patient has been identified by name and date of : Yes Pharmacy Caregiver verified no other encounters exist for this prescription request: Yes Caregiver confirmed with patient/requestor that no other refills are due, in the near future, with this provider at this time: Yes The last office visit in the department: 11/30/2023 Does the patient have a future office visit with this provider/department: no no future appt scheduled Requested Prescriptions Pending Prescriptions Disp Refills tapentadol (NUCYNTA) 75 mg tab 42 tablet 0 Sig: Take 1 tablet by mouth two times a day for 21 days. Carmenza Vasquez LPN January 26, 2024 9:07 AM documented in this encounter [facility] 01-29-2024 History of Presen t illness Narrative SUBJECTIVE: Depression Screening Never done Anxiety Screening Never done Alpha-1 Antitrypsin Deficiency Screening Never done Lung Cancer Screening Never done Shingrix Vaccine(1 of 2) Never done Pneumococcal Vaccine: 65+(2 of 2 - PCV) due on 09/16/2011 RSV Vaccine(1 - Risk 60-74 years 1-dose series) Never done Mammogram Screening due on 11/15/2018 Urine Albumin:Creatinine Ratio due on 06/09/2021 DTaP,Tdap,Td Vaccine(2 - Td or Tdap) due on 08/06/2022 Bone Density Screening Never done Advance Directive Discussion Never done Covid-19 Vaccine( season) due on 11/05/2023 Diabetic Foot Exam due on 12/23/2023 HPI Gutierrez Hobson is a 63 year old female. 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 Reports generalized pain of fibromyalgia. Notes has been helpful. Does not make her sleepy. Notes can not see local pain management doctors.No change in ileostomy output. YENY, insomnia; Seeing Dr Ortiz for sleep. Notes currently taking rameleon 8mg for sleep, not helping much. DIABETES MELLITUS: Without report of excessive thirst or increased frequency of urination, chest pain or dyspnea , numbness, tingling or pain in extremities, new or unusual visual symptoms, low sugar/hypoglycemic reactions, weight loss/gain, lightheadedness/dizziness, and bowel changes/loose stools. . Patient's last HgA1C was Hemoglobin A1C (%) Date Value 01/10/2024 6.4 08/02/2023 6.3 06/09/2020 8.3 11/14/2017 9.2 Hemoglobin A1C (POCT) (%) Date Value 06/07/2022 8.1 07/27/2018 8.0 ) HTN: Without report of headache, chest pain, palpitations, dyspnea, peripheral edema, orthopnea, fatigue, and PND Last 14 Encounter BP Readings: Date: BP: 01/29/2024 107/57 11/30/2023 124/60 10/02/2023 120/70 08/02/2023 110/60 07/03/2023 92/54 05/20/2023 114/66 04/13/2023 95/58 03/27/2023 117/75 03/14/2023 104/70 02/13/2023 132/82 02/08/2023 104/72 01/12/2023 119/61 01/09/2023 132/60 01/08/2023 140/85 Hyperlipidemia. Ms. Hobson reports doing well on current therapy. Her most recent lipid panels are: Cholesterol, Total (mg/dL) Date Value 08/02/2023 131 06/09/2020 154 07/25/2018 202 HDL Cholesterol (mg/dL) Date Value 08/02/2023 56 06/09/2020 64 07/25/2018 61 LDL Cholesterol (mg/dL) Date Value 08/02/2023 54 06/09/2020 69 07/25/2018 62 Triglyceride (mg/dL) Date Value 08/02/2023 104 06/09/2020 106 07/25/2018 396 Anemic, taking iron 3 days per week. Review of Systems Constitutional: Negative. Musculoskeletal: Positive for arthralgias and myalgias. Objective BP 107/57 Pulse (!) 57 Resp 16 Wt 78.3 kg (172 lb 9.9 oz) BMI 27.86 kg/m Physical Exam Vitals and nursing note reviewed. Constitutional: Appearance: Normal appearance. HENT: Head: Normocephalic and atraumatic. Eyes: Conjunctiva/sclera: Conjunctivae normal. Cardiovascular: Rate and Rhythm: Normal rate. Skin: General: Skin is warm and dry. Neurological: General: No focal deficit present. Mental Status: She is alert and oriented to person, place, and time. ALLERGIES Allergen Reactions Goss Other: See Comments [...] Rash Vicodin [Hydrocodon* Rash Zithromax [Azithrom* Rash [START ON 02/01/2024] tapentadol (NUCYNTA) 75 mg tab Take 1 tablet by mouth two times a day for 28 days. Patient should start on February 01, 2024. traZODone (DESYREL) 100 mg tablet Take 1 tablet by mouth daily at bedtime. insulin needles, DISPOSABLE, (PEN NEEDLE) 31 gauge x 5/16 Use one needle per dose (Lantus and Humalog). 5 per day. magnesium oxide (MAG-OX) 400 mg (241.3 mg magnesium) tablet Take 1 tablet by mouth daily at bedtime. topiramate (TOPAMAX) 100 mg tablet Take 100 mg by mouth two times a day. topiramate (TOPAMAX) 200 mg tablet Take 200 mg by mouth once daily. hyoscyamine sublingual (LEVSIN SL) 0.125 mg Dissolve 1 tablet under the tongue every 6 hours as needed (epigastric discomfort). insulin glargine (LANTUS SOLOSTAR U-100 INSULIN) 100 unit/mL (3 mL) Inject 18 Units subcutaneously daily at bedtime AND 2 Units daily at bedtime. Adjust as directed (2 units to prime pen needle. (Patient taking differently: Inject 12 to 6 units at bedtime) blood sugar diagnostic (BLOOD GLUCOSE TEST) test strip Test blood sugar(s) 4 times daily. Dx: Type 2 DM - Uncontrolled E11.65 Insulin: Yes Insurance covers One Touch or Accucheck iron polysaccharide complex (FERREX 150) 150 mg iron capsule Take 1 capsule by mouth every Monday, Monday, and Monday. (Patient taking differently: Take 150 mg by mouth two times a week.) melatonin 10 mg tab Take 1 tablet by mouth at bedtime as needed for insomnia. hydrocortisone 2.5 % cream Apply 1 application to affected area two times a day as needed. Location: neck (reaction to tape adhesive) May also use for poison tania. Use up to 14 days per episode of rash. alcohol swabs (SURE-PREP ALCHOLOL PREP PADS) Test blood sugars 4 x's daily. Dx: E11.65 Insulin: Yes cetirizine (ZYRTEC) 10 mg tablet Take 1 tablet by mouth at bedtime as needed for cold/allergy symptoms (itching). clotrimazole (LOTRIMIN) 1 % cream Apply to affected area two times a day. diclofenac (VOLTAREN ARTHRITIS PAIN) 1 % topical gel Apply 2 g to affected area four times daily. guaiFENesin (MUCINEX) 600 mg 12 hr tablet Take 2 tablets by mouth two times a day. ipratropium-albuterol (DUONEB) 0.5 mg-3 mg(2.5 mg base)/3 mL nebu Inhale 3 mL as instructed four times a day as needed (wheezing). Use over 5-15minutes per nebulizer. nystatin (MYCOSTATIN) powder Apply 1 application to affected area four times a day as needed. fluticasone-salmeterol (ADVAIR DISKUS) 100-50 mcg/dose inhaler Inhale 1 Puff as instructed two times a day. Rinse mouth out after use with water. nystatin (MYCOSTATIN) 100,000 unit/mL suspension Take 5 mL by mouth four times daily. 1tsp swish in mouth for several minutes, then swallow (or expectorate) 4 times daily until gone. omeprazole (PRILOSEC) 20 mg capsule Take 1 capsule by mouth once daily. triamcinolone acetonide (KENALOG) 0.1 % cream Apply 1 application to affected area three times a day. Apply sparingly to area for rash/itching till rash resolves. For contact dermatitis glimepiride (AMARYL) 4 mg tablet Take 1 tablet by mouth daily with breakfast. Patient may take an extra half pill once a day for blood sugars over 200. lidocaine (LMX) 4 % cream Apply to affected area four times a day as needed (for painful sore in rectal area as directed). pravastatin (PRAVACHOL) 40 mg tablet Take 1 tablet by mouth once daily. Ostomy Supplies [facility] 1. Convatec Flanges Ref# [id number] 10 to a box, 3 boxes 2. [facility] Protective Barrier Wipes Ref # [id number] 1 box = 50 wipes, 3 boxes 3. Convatec Adhesive Glue Ref # [id number] 2 oz tube, 3 tubes 4. [employer]vate[employer] Stoma Adhesive Powder Ref # [id number] 1 oz bottle, 3 bottles 5. Convatec Stoma Bags Ref # [id number] 10 in a box, 3 boxes benzonatate (TESSALON PERLE) 100 mg capsule Take 2 capsules by mouth three times a day as needed. blood sugar diagnostic (BLOOD GLUCOSE TEST) test strip Test blood sugar(s) 4 times daily and as needed as directed. Dx: Type 2 DM - Uncontrolled E11.65 Insulin: Yes ketoconazole (NIZORAL) 2 % cream Apply 1 application to affected area once daily. as needed Lancets lancets Test blood sugar(s) 1 times daily and as needed. Dx: Type 2 DM - Uncontrolled E11.65 Insulin: Yes miconazole (CADENCE ANTIFUNGAL) 2 % cream Apply 1 application to affected area twice daily. To perirectal and buttocks area INGREZZA 80 mg capsule Take 1 tablet by mouth once daily. fluticasone (FLONASE) 50 mcg/actuation nasal spray Use 2 Sprays in each nostril once daily. Rinse mouth after use. Nebulizer and Compressor For Neb 1 Each as needed (Use as directed for treatment of asthma). Nebulizer Accessories [facility] Needs new nebulizer mask, hose and supplies. (J45.20) Intermittent asthma without complication Zinc Oxide 40 % oint Apply to affected area as needed. Ostomy Supplies (ADHESIVE REMOVER WIPES) swab [employer] brand. Use as directed fluPHENAZine (PROLIXIN) 1 mg tablet Take 3 mg by mouth once daily. Nebulizer Accessories [facility] Needs new nebulizer mask, hose and supplies. (J45.20) Intermittent asthma without complication Nebulizer New (not refurbished) NEBULIZER FOR HOME USE with Duoneb 4 x a day. DX: J45.909, Z87.09. Lifetime supplies of mask/tubing, patient has tracheostomy. blood sugar diagnostic (FREESTYLE INSULINX) test strip Test blood sugar(s) 4 times daily and as needed. Dx: Type 2 DM - Uncontrolled E11.65 Insulin: Yes VRAYLAR 3 mg cap Take 3 mg by mouth daily at bedtime. white petrolatum-mineral oil (EUCERIN) cream Apply 1 application to affected area as needed for Dry Skin (all dry skin areas). 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 02/05/2010 Diabetes ([facility]) 2000 On insulin 2015 Dyslipidemia Encephalopathy in sepsis 02/28/2015 CT head and EEG done to confirm Endogenous endophthalmitis Fecal soiling due to fecal incontinence 10/10/2023 Hematoma 06/17/2016 Hematuria, unspecified 04/09/2008 UA with [...] in limb 02/05/2010 Paranoid schizophrenia, chronic condition ([facility]) 1985 Peptic ulcer, unspecified site, unspecified as [...] 03/14 -- follow daily CBC and coags 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 In addition there are small edema bullae on the abdominal wall Both require gentle wound care and emollients such as aquaphor or petroleum jelly -- monitor Tracheostomy in place ([facility]) Placed 2015 after prolonged respiratory failure, unable to liberate from vent. 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 Medical Marijuana Latest Ref Rng 01/10/2024 Protein, Total 6.3 - 8.0 g/dL 6.7 Albumin 3.9 - 4.9 g/dL 3.9 Calcium 8.5 - 10.2 mg/dL 8.5 Bilirubin, Total 0.2 - 1.3 mg/dL <0.2 (L) Alkaline Phosphatase 34 - 123 U/L 70 AST 13 - 35 U/L 18 ALT 7 - 38 U/L 13 Glucose 74 - 99 mg/dL 256 (H) BUN 7 - 21 mg/dL 32 (H) Creatinine 0.58 - 0.96 mg/dL 1.18 (H) Sodium 136 - 144 mmol/L 138 Potassium 3.7 - 5.1 mmol/L 4.4 Chloride 98 - 107 mmol/L 106 CO2 22 - 30 mmol/L 21 (L) Anion Gap 8 - 15 mmol/L 11 eGFR >=60 mL/min/1.73m 51 (L) WBC 3.70 - 11.00 k/uL 5.94 RBC 3.90 - 5.20 m/uL 3.66 (L) Hemoglobin 11.5 - 15.5 g/dL 10.3 (L) Hematocrit 36.0 - 46.0 % 35.4 (L) MCV 80.0 - 100.0 fL 96.7 MCH 26.0 - 34.0 pg 28.1 MCHC 30.5 - 36.0 g/dL 29.1 (L) RDW-CV 11.5 - 15.0 % 14.1 Platelet Count 150 - 400 k/uL 179 MPV 9.0 - 12.7 fL 10.4 Absolute nRBC <0.01 k/uL <0.01 Iron 41 - 186 ug/dL 26 (L) TIBC 232 - 386 ug/dL 374 Transferrin Saturation 15.0 - 57.0 % 7.0 (L) Hemoglobin A1C 4.3 - 5.6 % 6.4 (H) Estimated Average Glucose mg/dL 137 Ferritin 14.7 - 205.1 ng/mL 13.7 (L) ASSESSMENT/PLAN: 1. . Diabetic peripheral neuropathy associated with type 2 diabetes mellitus (HCC) - ICD9: 250.60, 357.2, ICD10: E11.42 (primary diagnosis) - Controlled - Continue current medications - ALBUMIN/CREATININE RATIO, URINE 3. Screening for depression - ICD9: V79.0, ICD10: Z13.31 - DEPRESSION SCREENING 4. Encounter for screening examination for other mental health and behavioral disorders - ICD9: V79.8, ICD10: Z13.39 - ANXIETY SCREENING 5. Chronic obstructive pulmonary disease, unspecified COPD type (HCC) - ICD9: 496, ICD10: J44.9 - [id number] 6. Encounter for screening for lung cancer - ICD9: V76.0, ICD10: Z12.2 declines at this time, notes financial constraints, declines SW or financial referrl - CONSULT LUNG CANCER SCREENING [facility]INIC 7. Screening for osteoporosis - ICD9: V82.81, ICD10: Z13.820 8. Asymptomatic menopause - ICD9: V49.81, ICD10: Z78.0 - DXA-AXIAL SKELETON - BD DXA TRABECULAR BONE SCORE (TBS) 9. Hyperlipidemia associated with type 2 diabetes mellitus (HCC) (HCC) - ICD9: 250.80, 272.4, ICD10: E11.69, E78.5 Recommend a plant based diet such as Mediterranean diet with plenty of vegetables, fruits,whole grains, fish, chicken, turkey or plant proteins and routine exercise such as walking Continue current treatment unchanged, continue to monitor - PRAVASTATIN 40 MG TABLET 10. Fibromyalgia - ICD9: 729.1, ICD10: M79.7 11. Chronic, continuous use of opioids - ICD9: 305.51, ICD10: F11.90 12. Chronic midline low back pain, unspecified whether sciatica present - ICD9: 724.2, 338.29, ICD10: M54.50, G89.29 Taking Nucynta, reports effective without AEs noted. Keep 3 mo follow up visit MD Esteban Mcqueen APRN.[employer] Medical Decision Making: Problems: Moderate: 2+ stable chronic illnesses Risk: Moderate: Drug management Medical Decision Making Level: 4 - Moderate documented in this encounter [facility] 01-29-2024 Telephone encounter Note Message left for pt to call back For message below. Pt called in earlier today and was advised on the trazodone. Zenaida Donnelly MA [facility] 01-29-2024 Telephone encounter Note Pt called in. Message below given. Pt scheduled her 3 month follow up for today 01-29-24. Susan Freitas LPN [facility] 01-29-2024 Miscellaneous Notes Pt called in. Message below given. Pt scheduled her 3 month follow up for today 01-29-24. Susan Freitas LPN LEFT MESSAGE FOR PATIENT TO CALL OFFICE. Please be sure to schedule an appointment for patient. Patient is on several medication that should be managed by whoever is taking over for Arjun Roche. Looks like Adore Tavera APRN,BASKET PATCHER has filled some of her meds that Arjun Roche had been prescribing. I do not prescribe several of the meds he had prescribed, like fluphenazine. She should continue follow up with someone there to manage all those meds: Fluphenazine, Vraylar, trazodone. Other issue is that has not been seen since November and no follow up been made yet, no that is another reason not able to make med adjustments and give RX refills at this time. 3 No Shows since November, so will need to taper off pain med if not seen within 3 months lf last appointment per [facility] Protocol. Patient's returning call with patient speaking in background also. To re summarize, patient reports she has not been sleeping well and asking if Trazodone can be increased to 150 mg. Trazadone was ordered by Arjun Roche PA-C at [facility] and pt states he is no longer there. Patient asking if Dr. Pearson would consider increasing the trazadone for her. Also, per last OV note 11/30/23, patient was recommended to Follow-up with Dr. Deng for further management if current adjustments do not improve sleep.. Patient states she does not plan to do that. Reports he's a joke. Pt aware that PCP is out this week and message would be reviewed by PCP next week. Pt and agreeable and voice understanding. Darcy Sequeira RN No answer. Left message for patient to call office and ask to speak to a nurse regarding medication increase request This has been prescribed by Arjun Roche, she may want to check with him for an increased dose Patient calling to ask if Trazodone be increased to 150 mg? She says she is not sleeping well. She says she has trouble falling asleep then when she does she wakes up a few hours later (3 AM) and can't fall back to sleep. Loree Montiel RN documented in this encounter [facility] 01-29-2024 Telephone encounter Note LEFT MESSAGE FOR PATIENT TO CALL OFFICE. Please be sure to schedule an appointment for patient. [facility] 01-26-2024 Telephone encounter Note Not sure why RX was pended for 21 days but switched to 28 and dated for 28 days from last RX. This will be the last 28 day RX I can send if not seen by 02/28 per [facility] policy. After that date, will need to taper the dose from 75 mg to 50 mg twice daily with RX for 2 weeks, then 50 mg once daily for 2 weeks then stop med if not seen for follow up See other encounter about trazodone RX. Does not look like was addressed yet. The following approved medication requests have been transmitted electronically. Requested Prescriptions Signed Prescriptions Disp Refills tapentadol (NUCYNTA) 75 mg tab 56 tablet 0 Sig: Take 1 tablet by mouth two times a day for 28 days. Patient should start on February 01, 2024. Authorizing Provider: TIFF PEARSON MD [facility] 01-26-2024 Telephone encounter Note The patient has been identified by name and date of : Yes Pharmacy Caregiver verified no other encounters exist for this prescription request: Yes Caregiver confirmed with patient/requestor that no other refills are due, in the near future, with this provider at this time: Yes The last office visit in the department: 11/30/2023 Does the patient have a future office visit with this provider/department: no no future appt scheduled Requested Prescriptions Pending Prescriptions Disp Refills tapentadol (NUCYNTA) 75 mg tab 42 tablet 0 Sig: Take 1 tablet by mouth two times a day for 21 days. Carmenza Vasquez LPN January 26, 2024 9:07 AM [facility] 01-26-2024 Telephone encounter Note Patient is on several medication that should be managed by whoever is taking over for Arjun Melchor. Looks like Adore Tavera APRN,BASKET PATCHER has filled some of her meds that Arjun Roche had been prescribing. I do not prescribe several of the meds he had prescribed, like fluphenazine. She should continue follow up with someone there to manage all those meds: Fluphenazine, Vraylar, trazodone. Other issue is that has not been seen since November and no follow up been made yet, no that is another reason not able to make med adjustments and give RX refills at this time. 3 No Shows since November, so will need to taper off pain med if not seen within 3 months lf last appointment per [facility] Protocol. [facility] 01-19-2024 Telephone encounter Note Patient's returning call with patient speaking in background also. To re summarize, patient reports she has not been sleeping well and asking if Trazodone can be increased to 150 mg. Trazadone was ordered by Arjun Roche PA-C at [facility] and pt states he is no longer there. Patient asking if Dr. Pearson would consider increasing the trazadone for her. Also, per last OV note 11/30/23, patient was recommended to Follow-up with Dr. Deng for further management if current adjustments do not improve sleep.. Patient states she does not plan to do that. Reports he's a joke. Pt aware that PCP is out this week and message would be reviewed by PCP next week. Pt and agreeable and voice understanding. Darcy Sequeira RN [facility] 01-19-2024 Telephone encounter Note No answer. Left message for patient to call office and ask to speak to a nurse regarding medication increase request [facility] 01-18-2024 Telephone encounter Note This has been prescribed by Arjun Roche, she may want to check with him for an increased dose [facility] 01-18-2024 Telephone encounter Note Patient calling to ask if Trazodone be increased to 150 mg? She says she is not sleeping well. She says she has trouble falling asleep then when she does she wakes up a few hours later (3 AM) and can't fall back to sleep. Loree Montiel, RN [facility] 01-08-2024 Telephone encounter Note Noted. Tiff Pearson MD [facility] 01-08-2024 Miscellaneous Notes Noted. Tiff Pearson MD Patient updated of provider's message below. Patient states to discontinue the tramadol. States it doesn't help her. 40 min appt made with Shawn Veronica CNP for this Monday. Pt missed her December follow up. Darcy Sequeira RN 1) Nothing else to prescribe since on Nucynta 2) Can discontinue tramadol if not doing anything for her--can discontinue off med list and cancel refill request (see other encounter). Verify whether wants to continue tramadol. 3) Needs follow up reschedule. She missed the December follow up. Needs seen for at least every 2 to 3 months in order to continue filling the Nucynta so needs seen by February 25. Message printed to bring to PCP attention. Viviana Morillo LPN Pt calls requesting something in place of tramadol states does nothing. Asking if something different could be called to [facility] today . They do not have much gas and are coming into [place] today. documented in this encounter [facility] 01-08-2024 Telephone encounter Note Discontinued per patient request [facility] 01-08-2024 Miscellaneous Notes Discontinued per patient request See other encounter--check if wants to discontinue since not doing anything for her. Nothing else I can replace this with given on Nucynta and avoiding too high of opiate prescription per day as discussed at prior appointments. Prescription Refill Information The patient has been identified by name and date of : Yes Caregiver verified no other encounters exist for this prescription request: Yes Caregiver confirmed with patient/requestor that no other refills are due, in the near future, with this provider at this time: Yes The last office visit in the department: 11/30/23 Does the patient have a future office visit with this provider/department: No Requested Prescriptions Pending Prescriptions Disp Refills traMADol (ULTRAM) 50 mg tablet 28 tablet 0 Sig: Take 1 tablet by mouth every afternoon for 28 days. For breakthrough pain between doses of Nucynta Nay Strange LPN January 08, 2024 11:48 AM documented in this encounter [facility] 01-08-2024 Telephone encounter Note Patient updated of provider's message below. Patient states to discontinue the tramadol. States it doesn't help her. 40 min appt made with Shawn Veronica CNP for this Monday. Pt missed her December follow up. Darcy Sequeira RN [facility] 01-08-2024 Telephone encounter Note See other encounter--check if wants to discontinue since not doing anything for her. Nothing else I can replace this with given on Nucynta and avoiding too high of opiate prescription per day as discussed at prior appointments. [facility] 01-08-2024 Telephone encounter Note 1) Nothing else to prescribe since on Nucynta 2) Can discontinue tramadol if not doing anything for her--can discontinue off med list and cancel refill request (see other encounter). Verify whether wants to continue tramadol. 3) Needs follow up reschedule. She missed the December follow up. Needs seen for at least every 2 to 3 months in order to continue filling the Nucynta so needs seen by February 25. [facility] 01-08-2024 Telephone encounter Note Message printed to bring to PCP attention. Viviana Morillo LPN [facility] 01-08-2024 Telephone encounter Note Pt calls requesting something in place of tramadol states does nothing. Asking if something different could be called to [facility] today . They do not have much gas and are coming into [place] today. [facility] 01-08-2024 Telephone encounter Note Prescription Refill Information The patient has been identified by name and date of : Yes Caregiver verified no other encounters exist for this prescription request: Yes Caregiver confirmed with patient/requestor that no other refills are due, in the near future, with this provider at this time: Yes The last office visit in the department: 11/30/23 Does the patient have a future office visit with this provider/department: No Requested Prescriptions Pending Prescriptions Disp Refills traMADol (ULTRAM) 50 mg tablet 28 tablet 0 Sig: Take 1 tablet by mouth every afternoon for 28 days. For breakthrough pain between doses of Nucynta Nay Strange LPN January 08, 2024 11:48 AM [facility] 01-05-2024 Telephone encounter Note If Nucynta was filled 10/3 for 28 days, needs RX now. Sent to last till gets pill pack from [facility] 01/25. Notes wanted filled at [facility] since [facility] is closed now. Trazodone filled 12/21 should last till January pill pack delivery (given 28 days worth of med). Noted wants filled at [facility]. Put note on the RX that may fill when due so [facility] can determine whether they will fill this now or have to wait till when should be due after filling 12/21 The following approved medication requests have been transmitted electronically. Requested Prescriptions Signed Prescriptions Disp Refills traZODone (DESYREL) 50 mg tablet 30 tablet 3 Sig: Take 1 tablet by mouth daily at bedtime. Authorizing Provider: TIFF PEARSON tapentadol (NUCYNTA) 75 mg tab 42 tablet 0 Sig: Take 1 tablet by mouth two times a day for 21 days. Authorizing Provider: TIFF PEARSON MD [facility] 01-05-2024 Miscellaneous Notes If Nucynta was filled 12/06 for 28 days, needs RX now. Sent to last till gets pill pack from [facility] 01/25. Notes wanted filled at [facility] since [facility] is closed now. Trazodone filled 12/21 should last till January pill pack delivery (given 28 days worth of med). Noted wants filled at [facility]. Put note on the RX that may fill when due so [facility] can determine whether they will fill this now or have to wait till when should be due after filling 12/21 The following approved medication requests have been transmitted electronically. Requested Prescriptions Signed Prescriptions Disp Refills traZODone (DESYREL) 50 mg tablet 30 tablet 3 Sig: Take 1 tablet by mouth daily at bedtime. Authorizing Provider: TIFF PEARSON tapentadol (NUCYNTA) 75 mg tab 42 tablet 0 Sig: Take 1 tablet by mouth two times a day for 21 days. Authorizing Provider: TIFF PEARSON MD Left message on voicemail for pt to call office. Patient should have a punchpack for the nucynta that was started on 12/07/23 From [facility] pharmacy. Trazadone was filled for 30 tabs with 3 refills on 12/17/24. Should have remaining medication if taking as ordered. Patient had missed last appointment which was to assess medication use. .mew Spoke with [facility] and [facility] pharmacy concerning medications. Will discuss with PCP. Viviana Morillo LPN Patients calling again and asking for this to be sent this afternoon because they do not like driving at night. Please advise. Pt phoned to change pharmacy to [facility], since [facility] is not open on the weekend. Reports she is out of trazodone, and only has enough nucynta for 2 days. Prescription Refill Information patient has 2 days left of medication The patient has been identified by name and date of : Yes Caregiver verified no other encounters exist for this prescription request: Yes Caregiver confirmed with patient/requestor that no other refills are due, in the near future, with this provider at this time: Yes The last office visit in the department: 11/30/23 Does the patient have a future office visit with this provider/department: No Requested Prescriptions Pending Prescriptions Disp Refills tapentadol (NUCYNTA) 75 mg tab 56 tablet 0 Sig: Take 1 tablet by mouth two times a day for 28 days. traZODone (DESYREL) 50 mg tablet 30 tablet 3 Sig: Take 1 tablet by mouth daily at bedtime. Penny Pinon RN January 05, 2024 11:43 AM documented in this encounter [facility] 01-05-2024 Telephone encounter Note Left message on voicemail for pt to call office. Patient should have a punchpack for the nucynta that was started on 12/07/23 From [facility] pharmacy. Trazadone was filled for 30 tabs with 3 refills on 12/17/24. Should have remaining medication if taking as ordered. Patient had missed last appointment which was to assess medication use. .mew [facility] 01-05-2024 Telephone encounter Note Spoke with [facility] and [facility] pharmacy concerning medications. Will discuss with PCP. Viviana Morillo LPN [facility] 01-05-2024 Telephone encounter Note Patients calling again and asking for this to be sent this afternoon because they do not like driving at night. Please advise. [facility] 01-05-2024 Telephone encounter Note Pt phoned to change pharmacy to [facility], since [facility] is not open on the weekend. Reports she is out of trazodone, and only has enough nucynta for 2 days. T [facility] 01-05-2024 Telephone encounter Note Prescription Refill Information patient has 2 days left of medication The patient has been identified by name and date of : Yes Caregiver verified no other encounters exist for this prescription request: Yes Caregiver confirmed with patient/requestor that no other refills are due, in the near future, with this provider at this time: Yes The last office visit in the department: 11/30/23 Does the patient have a future office visit with this provider/department: No Requested Prescriptions Pending Prescriptions Disp Refills tapentadol (NUCYNTA) 75 mg tab 56 tablet 0 Sig: Take 1 tablet by mouth two times a day for 28 days. traZODone (DESYREL) 50 mg tablet 30 tablet 3 Sig: Take 1 tablet by mouth daily at bedtime. Penny Pinon RN January 05, 2024 11:43 AM [facility] 01-04-2024 Telephone encounter Note The following approved medication requests have been transmitted electronically. Requested Prescriptions Pending Prescriptions Disp Refills insulin needles, DISPOSABLE, (PEN NEEDLE) 31 gauge x 5/16 150 Each 11 Sig: Use one needle per dose (Lantus and Humalog). 5 per day. Tiff Pearson MD T [facility] 01-04-2024 Miscellaneous Notes The following approved medication requests have been transmitted electronically. Requested Prescriptions Pending Prescriptions Disp Refills insulin needles, DISPOSABLE, (PEN NEEDLE) 31 gauge x 5/16 150 Each 11 Sig: Use one needle per dose (Lantus and Humalog). 5 per day. Tiff Pearson MD Patient has been identified by name and date of : Yes, Pharmacy phones for refill(s): Requested Prescriptions Pending Prescriptions Disp Refills insulin needles, DISPOSABLE, (PEN NEEDLE) 31 gauge x 5/16 150 Each 11 Sig: Use one needle per dose (Lantus and Humalog). 5 per day. Date of last office visit in primary care: 11/30/2023 Date of next office visit in primary care: Visit date not found Please advise. Thank you. Malka Jj. documented in this encounter [facility] 01-04-2024 Telephone encounter Note Patient has been identified by name and date of : Yes, Pharmacy phones for refill(s): Requested Prescriptions Pending Prescriptions Disp Refills insulin needles, DISPOSABLE, (PEN NEEDLE) 31 gauge x 5/16 150 Each 11 Sig: Use one needle per dose (Lantus and Humalog). 5 per day. Date of last office visit in primary care: 11/30/2023 Date of next office visit in primary care: Visit date not found Please advise. Thank you. Malka Jj. [facility] 01-03-2024 Telephone encounter Note Pts called and is notified of providers message and instructions. He voices understanding. Michael Veloz RN [facility] 01-03-2024 Miscellaneous Notes Pts called and is notified of providers message and instructions. He voices understanding. Michael Veloz RN Phoned pt at home number and also on mobile phone number. Voicemail is not available on both numbers. No answer at each number. She may get labs anytime now. Order is good for the next couple months. Up to her when she wants to get labs. Pt and called and is notified of providers results and instructions. They voice understanding. They deny any overt bleeding. No blood in urine, denies any blood in stool, black tarry stools, or filling the toilet with bright red blood when having a bowel movement, and denies vomiting up coffee ground emesis. Pts states she hasn't refused the infusions, she would get them if needed. I told them them since there is no overt bleeding provider said to get labs drawn in a month. Did not know if provider would want her to come in early for labs if she was wanting infusions. Please call and advise if wanting Pt to come in earlier than a month. Michael Veloz RN May take the iron tablets they have 1 on Monday, Monday and Fridays. Needs labs done to see whether does have anemia severe enough to consider transfusion but last labs done at [facility] 11/25/23 showed normal Hg 12.4 and hematocrit 37.6. If has had problems with significant bleeding to cause anemia warranting blood transfusion, needs to get labs done [facility] or go to ER. If not having overt bleeding, and if does not want to pursue iron infusions even if a candidate and prefers pills, okay to get labs after a month to see how blood counts are doing. checking on reply. Asking provider to call him at [phone] Patient calling again, asking for a return call today. Copy of TE printed for PCP to address. Viviana Morillo LPN Pt calls states she has low iron and Ldt has her on Ferrex 150 mg . Her states may need iron transfusion. They do not want that so he bought a bunch of iron tablets and is calling to see if she could take these also. They are 125 mg of vitamin c and 65 mg of iron. Please advise documented in this encounter [facility] 01-01-2024 Telephone encounter Note Phoned pt at home number and also on mobile phone number. Voicemail is not available on both numbers. No answer at each number. [facility] 01-01-2024 Telephone encounter Note She may get labs anytime now. Order is good for the next couple months. Up to her when she wants to get labs. [facility] 12-29-2023 Telephone encounter Note needs a follow up appt [facility] 12-29-2023 Miscellaneous Notes needs a follow up appt The patient has been identified by name and date of : Yes Pharmacy Caregiver verified no other encounters exist for this prescription request: Yes Caregiver confirmed with patient/requestor that no other refills are due, in the near future, with this provider at this time: Yes The last office visit in the department: 11/30/2023 Does the patient have a future office visit with this provider/department: Yes Visit date not found Requested Prescriptions Pending Prescriptions Disp Refills tapentadol (NUCYNTA) 75 mg tab 56 tablet 0 Sig: Take 1 tablet by mouth two times a day for 28 days. Carmenza Vasquez LPN December 29, 2023 10:00 AM documented in this encounter [facility] 12-29-2023 Telephone encounter Note The patient has been identified by name and date of : Yes Pharmacy Caregiver verified no other encounters exist for this prescription request: Yes Caregiver confirmed with patient/requestor that no other refills are due, in the near future, with this provider at this time: Yes The last office visit in the department: 11/30/2023 Does the patient have a future office visit with this provider/department: Yes Visit date not found Requested Prescriptions Pending Prescriptions Disp Refills tapentadol (NUCYNTA) 75 mg tab 56 tablet 0 Sig: Take 1 tablet by mouth two times a day for 28 days. Carmenza Vasquez LPN December 29, 2023 10:00 AM [facility] 12-25-2023 Telephone encounter Note The patient has been identified by name and date of : Yes Caregiver verified no other encounters exist for this prescription request: Yes Caregiver confirmed with patient/requestor that no other refills are due, in the near future, with this provider at this time: Yes The last office visit in the department: 11/30/2023 Does the patient have a future office visit with this provider/department: Yes Visit date not found Requested Prescriptions Pending Prescriptions Disp Refills insulin needles, DISPOSABLE, (PEN NEEDLE) 31 gauge x 5/16 150 Each 11 Sig: Use one needle per dose (Lantus and Humalog). 5 per day. Loree Montiel RN December 25, 2023 1:28 PM [facility] 12-25-2023 Miscellaneous Notes The patient has been identified by name and date of : Yes Caregiver verified no other encounters exist for this prescription request: Yes Caregiver confirmed with patient/requestor that no other refills are due, in the near future, with this provider at this time: Yes The last office visit in the department: 11/30/2023 Does the patient have a future office visit with this provider/department: Yes Visit date not found Requested Prescriptions Pending Prescriptions Disp Refills insulin needles, DISPOSABLE, (PEN NEEDLE) 31 gauge x 5/16 150 Each 11 Sig: Use one needle per dose (Lantus and Humalog). 5 per day. Loree Montiel RN December 25, 2023 1:28 PM documented in this encounter [facility] 12-23-2023 Telephone encounter Note Pt and called and is notified of providers results and instructions. They voice understanding. They deny any overt bleeding. No blood in urine, denies any blood in stool, black tarry stools, or filling the toilet with bright red blood when having a bowel movement, and denies vomiting up coffee ground emesis. Pts states she hasn't refused the infusions, she would get them if needed. I told them them since there is no overt bleeding provider said to get labs drawn in a month. Did not know if provider would want her to come in early for labs if she was wanting infusions. Please call and advise if wanting Pt to come in earlier than a month. Michael Veloz RN [facility] 12-22-2023 Telephone encounter Note May take the iron tablets they have 1 on Monday, Monday and Fridays. Needs labs done to see whether does have anemia severe enough to consider transfusion but last labs done at [facility] 11/25/23 showed normal Hg 12.4 and hematocrit 37.6. If has had problems with significant bleeding to cause anemia warranting blood transfusion, needs to get labs done [facility] or go to ER. If not having overt bleeding, and if does not want to pursue iron infusions even if a candidate and prefers pills, okay to get labs after a month to see how blood counts are doing. [facility] 12-22-2023 Telephone encounter Note checking on reply. Asking provider to call him at [phone] [facility] 12-22-2023 Telephone encounter Note Patient calling again, asking for a return call today. [facility] 12-22-2023 Telephone encounter Note Copy of TE printed for PCP to address. Viviana Morillo LPN [facility] 12-21-2023 Telephone encounter Note Pt calls states she has low iron and Ldt has her on Ferrex 150 mg . Her states may need iron transfusion. They do not want that so he bought a bunch of iron tablets and is calling to see if she could take these also. They are 125 mg of vitamin c and 65 mg of iron. Please advise [facility] 12-19-2023 Telephone encounter Note aware of refill given. [facility] 12-19-2023 Miscellaneous Notes aware of refill given. The following approved medication requests have been transmitted electronically. Requested Prescriptions Signed Prescriptions Disp Refills traZODone (DESYREL) 50 mg tablet 30 tablet 3 Sig: Take 1 tablet by mouth daily at bedtime. Authorizing Provider: TIFF PEARSON MD Okay to continue on med as was prescribed as noted below Patient calling with on the phone line also, she was asking for a rx for Trazodone 50 mg one at bedtime to be sent to [facility]. She said she was in the [facility] ER few weeks ago could not sleep and was given short rx for the medication. Pending rx if wanted, needs completed. Please advise documented in this encounter [facility] 12-18-2023 Telephone encounter Note The following approved medication requests have been transmitted electronically. Requested Prescriptions Signed Prescriptions Disp Refills traZODone (DESYREL) 50 mg tablet 30 tablet 3 Sig: Take 1 tablet by mouth daily at bedtime. Authorizing Provider: TIFF PEARSON MD Okay to continue on med as was prescribed as noted below [facility] 12-18-2023 Telephone encounter Note Patient calling with on the phone line also, she was asking for a rx for Trazodone 50 mg one at bedtime to be sent to [facility]. She said she was in the [facility] ER few weeks ago could not sleep and was given short rx for the medication. Pending rx if wanted, needs completed. Please advise [facility] 12-14-2023 Telephone encounter Note Checked with the pharmacy and prescription came in a quantity of 150 but they can only get a box of 100 so after this next refill she will need new prescription [facility] 12-14-2023 Miscellaneous Notes Checked with the pharmacy and prescription came in a quantity of 150 but they can only get a box of 100 so after this next refill she will need new prescription Prescription Refill Information The patient has been identified by name and date of : Yes Caregiver verified no other encounters exist for this prescription request: Yes Caregiver confirmed with patient/requestor that no other refills are due, in the near future, with this provider at this time: Yes The last office visit in the department: 11/30/23 Does the patient have a future office visit with this provider/department: Yes Requested Prescriptions Pending Prescriptions Disp Refills insulin needles, DISPOSABLE, (PEN NEEDLE) 31 gauge x 5/16 150 Each 11 Sig: Use one needle per dose (Lantus and Humalog). 5 per day. Izzy Garcia December 14, 2023 9:26 AM documented in this encounter [facility] 12-14-2023 Telephone encounter Note Prescription Refill Information The patient has been identified by name and date of : Yes Caregiver verified no other encounters exist for this prescription request: Yes Caregiver confirmed with patient/requestor that no other refills are due, in the near future, with this provider at this time: Yes The last office visit in the department: 11/30/23 Does the patient have a future office visit with this provider/department: Yes Requested Prescriptions Pending Prescriptions Disp Refills insulin needles, DISPOSABLE, (PEN NEEDLE) 31 gauge x 5/16 150 Each 11 Sig: Use one needle per dose (Lantus and Humalog). 5 per day. Izzy Jones [facility] December 14, 2023 9:26 AM [facility] Work Phone: 12-03-2023 Telephone encounter Note Updated med list [facility] 12-03-2023 Miscellaneous Notes Updated med list Patient called and states that she does take the Iron supplement 2 times a week. At her appointment her reported that she was not taking it and he was incorrect. documented in this encounter [facility] 12-01-2023 Telephone encounter Note Patient called and states that she does take the Iron supplement 2 times a week. At her appointment her reported that she was not taking it and he was incorrect. [facility] 11-30-2023 Instructions Tiff Pearson MD - 11/30/2023 6:34 PM EDT -Would see if Arjun Roche would adjust your medications to see if moving them back to bedtime would help: Prolixin and Vraylar. I moved the prescription for magnesium milly kto bedtime too Discuss with your doctor the possibility of switching from Belsomra to Trazodone if it previously helped with your sleep. - Continue taking Topamax for chronic pain and mood stabilization. - Try Tramadol 50 mg in the afternoon to see if it helps with your pain. - Administer 12 units of Lantus at bedtime, making adjustments based on morning blood sugar levels. If morning levels are high (e.g., 190), consider administering 16 units. - Increase salt intake to help improve low sodium levels. Consider using broths or electrolyte solutions instead of plain water to maintain hydration without further lowering sodium levels. - Increase protein intake through sources such as meat, cheese, eggs, and beef jerky. - Lab orders for a metabolic panel, blood count, ferritin, and iron have been placed to monitor your electrolytes and check for anemia. If iron levels are too low, consider iron infusions. - Continue using topical medications for localized pain relief, even if the relief is temporary. - Keep up with physical activities, such as walking your dog, to help manage fibromyalgia pain. - Return for a follow-up appointment next week to review lab results and discuss any adjustments needed based on your progress. documented in this encounter [facility] 11-30-2023 History of Presen t illness Narrative This note was created using Zenph. Subjective Gutierrez Hobson is a 63 year old female. Patient presents with: F/U 3 Month: [facility] 11/20/23: chest pain & insomnia & [facility] 11/25/23: insomnia, UTI & low sodium SUBJECTIVE: Gutierrez Hobson is a 63 year old year old lady here today for 3 month follow up appointment for review of medical conditions. The patient is a 63-year-old female with a history of insomnia, fibromyalgia, and diabetes mellitus, presenting for evaluation of multiple symptoms including sleep disturbances, chronic pain, and recent laboratory abnormalities. She is accompanied by her , who is providing additional history. The patient reports worsening insomnia since several of her medications were switched from evening to morning administration. She is currently taking Belsomra for sleep, prescribed by Dr. Ortiz, but questions its efficacy. She previously found trazodone effective when all medications were taken at bedtime but states it was stopped since it stopped working ( thought it was working though). Current medications include Vraylar and Prolixin, which were previously taken at bedtime but have been moved to morning doses. She also takes Topamax 100 mg BID and 200 mg once daily for mood stabilization and chronic pain management. The patient also reports chronic pain secondary to fibromyalgia and back issues. She is currently on Nucynta 75 mg BID and has been prescribed tramadol 50 mg for midday use. She uses a topical green salve for back pain, which provides temporary relief. She engages in regular physical activity, including walking her dog, to manage fibromyalgia symptoms. The patient has a history of diabetes mellitus and is currently on Lantus, administered once daily at bedtime. She typically takes 12 units, but increases to 16 units if her blood glucose levels are high in the evening. She reports recent episodes of hypoglycemia with blood glucose levels around 120 mg/dL at night. The patient has been experiencing anorexia, which may be related to hyponatremia. She is making dietary adjustments to increase sodium intake, including consuming ramen noodles and beef jerky. She is also focusing on increasing protein intake, as her albumin level was 2.93 g/dL in July. Recent laboratory results from 11/25/2022 show a sodium level of 125 mmol/L, creatinine of 2.07 mg/dL, BUN of 32 mg/dL, and blood glucose of 160 mg/dL. Urinalysis showed leukocytes at 500/ microL, and she was treated for a UTI, which has since resolved. 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 Fecal soiling due to fecal incontinence 10/10/2023 Hematoma 06/17/2016 Hematuria, unspecified 04/09/2008 UA with [...] in limb 02/05/2010 Paranoid schizophrenia, chronic condition ([facility]) 1985 Peptic ulcer, unspecified site, unspecified as [...] 03/14 -- follow daily CBC and coags 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 In addition there are small edema bullae on the abdominal wall Both require gentle wound care and emollients such as aquaphor or petroleum jelly -- monitor Tracheostomy in place ([facility]) Placed 2015 after prolonged respiratory failure, unable to liberate from vent. 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 topiramate (TOPAMAX) 200 mg tablet Take 200 mg by mouth once daily. hyoscyamine sublingual (LEVSIN SL) 0.125 mg Dissolve 1 tablet under the tongue every 6 hours as needed (epigastric discomfort). insulin glargine (LANTUS SOLOSTAR U-100 INSULIN) 100 unit/mL (3 mL) Inject 18 Units subcutaneously daily at bedtime AND 2 Units daily at bedtime. Adjust as directed (2 units to prime pen needle. (Patient taking differently: Inject 12 to 6 units at bedtime) blood sugar diagnostic (BLOOD GLUCOSE TEST) test strip Test blood sugar(s) 4 times daily. Dx: Type 2 DM - Uncontrolled E11.65 Insulin: Yes Insurance covers One Touch or Accucheck tapentadol (NUCYNTA) 75 mg tab Take 1 tablet by mouth two times a day for 28 days. Patient should start on November 09, 2023. iron polysaccharide complex (FERREX 150) 150 mg iron capsule Take 1 capsule by mouth every Monday, Monday, and Monday. melatonin 10 mg tab Take 1 tablet by mouth at bedtime as needed for insomnia. hydrocortisone 2.5 % cream Apply 1 application to affected area two times a day as needed. Location: neck (reaction to tape adhesive) May also use for poison tania. Use up to 14 days per episode of rash. alcohol swabs (SURE-PREP ALCHOLOL PREP PADS) Test blood sugars 4 x's daily. Dx: E11.65 Insulin: Yes cetirizine (ZYRTEC) 10 mg tablet Take 1 tablet by mouth at bedtime as needed for cold/allergy symptoms (itching). clotrimazole (LOTRIMIN) 1 % cream Apply to affected area two times a day. diclofenac (VOLTAREN ARTHRITIS PAIN) 1 % topical gel Apply 2 g to affected area four times daily. guaiFENesin (MUCINEX) 600 mg 12 hr tablet Take 2 tablets by mouth two times a day. ipratropium-albuterol (DUONEB) 0.5 mg-3 mg(2.5 mg base)/3 mL nebu Inhale 3 mL as instructed four times a day as needed (wheezing). Use over 5-15minutes per nebulizer. nystatin (MYCOSTATIN) powder Apply 1 application to affected area four times a day as needed. fluticasone-salmeterol (ADVAIR DISKUS) 100-50 mcg/dose inhaler Inhale 1 Puff as instructed two times a day. Rinse mouth out after use with water. nystatin (MYCOSTATIN) 100,000 unit/mL suspension Take 5 mL by mouth four times daily. 1tsp swish in mouth for several minutes, then swallow (or expectorate) 4 times daily until gone. omeprazole (PRILOSEC) 20 mg capsule Take 1 capsule by mouth once daily. insulin needles, DISPOSABLE, (PEN NEEDLE) 31 gauge x 5/16 Use one needle per dose (Lantus and Humalog). 5 per day. glimepiride (AMARYL) 4 mg tablet Take 1 tablet by mouth daily with breakfast. Patient may take an extra half pill once a day for blood sugars over 200. lidocaine (LMX) 4 % cream Apply to affected area four times a day as needed (for painful sore in rectal area as directed). pravastatin (PRAVACHOL) 40 mg tablet Take 1 tablet by mouth once daily. Ostomy Supplies [facility] 1. Convate Flanges Ref# [id number] 10 to a box, 3 boxes 2. [facility] Protective Barrier Wipes Ref # [id number] 1 box = 50 wipes, 3 boxes 3. [facility] Ref # [id number] 2 oz tube, 3 tubes 4. [facility] Stoma Adhesive Powder Ref # [id number] 1 oz bottle, 3 bottles 5. Convate Stoma Bags Ref # [id number] 10 in a box, 3 boxes benzonatate (TESSALON PERLE) 100 mg capsule Take 2 capsules by mouth three times a day as needed. blood sugar diagnostic (BLOOD GLUCOSE TEST) test strip Test blood sugar(s) 4 times daily and as needed as directed. Dx: Type 2 DM - Uncontrolled E11.65 Insulin: Yes ketoconazole (NIZORAL) 2 % cream Apply 1 application to affected area once daily. as needed Lancets lancets Test blood sugar(s) 1 times daily and as needed. Dx: Type 2 DM - Uncontrolled E11.65 Insulin: Yes miconazole (CADENCE ANTIFUNGAL) 2 % cream Apply 1 application to affected area twice daily. To perirectal and buttocks area INGREZZA 80 mg capsule Take 1 tablet by mouth once daily. fluticasone (FLONASE) 50 mcg/actuation nasal spray Use 2 Sprays in each nostril once daily. Rinse mouth after use. Nebulizer and Compressor For Neb 1 Each as needed (Use as directed for treatment of asthma). Nebulizer Accessories [facility] Needs new nebulizer mask, hose and supplies. (J45.20) Intermittent asthma without complication Zinc Oxide 40 % oint Apply to affected area as needed. Ostomy Supplies (ADHESIVE REMOVER WIPES) swab [employer] brand. Use as directed fluPHENAZine (PROLIXIN) 1 mg tablet Take 3 mg by mouth once daily. Nebulizer Accessories [facility] Needs new nebulizer mask, hose and supplies. (J45.20) Intermittent asthma without complication Nebulizer New (not refurbished) NEBULIZER FOR HOME USE with Duoneb 4 x a day. DX: J45.909, Z87.09. Lifetime supplies of mask/tubing, patient has tracheostomy. blood sugar diagnostic (FREESTYLE INSULINX) test strip Test blood sugar(s) 4 times daily and as needed. Dx: Type 2 DM - Uncontrolled E11.65 Insulin: Yes VRAYLAR 3 mg cap Take 3 mg by mouth daily at bedtime. white petrolatum-mineral oil (EUCERIN) cream Apply 1 application to affected area as needed for Dry Skin (all dry skin areas). magnesium oxide (MAG-OX) 400 mg (241.3 mg magnesium) tablet Take 1 tablet by mouth daily at bedtime. triamcinolone acetonide (KENALOG) 0.1 % cream Apply 1 application to affected area three times a day. Apply sparingly to area for rash/itching till rash resolves. For contact dermatitis No current facility-administered medications for this visit. Review of Systems Objective BP 145/81 Pulse 60 Temp 36.8 C (98.2 F) (Temporal) Resp 16 Wt 73.3 kg (161 lb 9.6 oz) SpO2 98% BMI 26.08 kg/m Last 5 Encounter Wt Readings: Date: Wt: 11/30/2023 73.3 kg (161 lb 9.6 oz) 10/02/2023 72.4 kg (159 lb 9.8 oz) 08/02/2023 73.5 kg (162 lb) 07/03/2023 74.8 kg (165 lb) 05/20/2023 79.2 kg (174 lb 8 oz) No waist measurement recorded Estimated body mass index is 26.08 kg/m as calculated from the following: Height as of 08/01/21: 167.6 cm (5' 6). Weight as of this encounter: 73.3 kg (161 lb 9.6 oz). Last 5 Encounter BP Readings: Date: BP: 11/30/2023 145/81 10/02/2023 120/70 08/02/2023 110/60 07/03/2023 92/54 05/20/2023 114/66 11/30/23 1631 11/30/23 1827 BP: 145/81 124/60 Pulse: 60 Resp: 16 Temp: 36.8 C (98.2 F) TempSrc: Temporal SpO2: 98% Weight: 73.3 kg (161 lb 9.6 oz) Physical Exam Constitutional: Appearance: Normal appearance. HENT: Head: Normocephalic. Eyes: Conjunctiva/sclera: Conjunctivae normal. Cardiovascular: Rate and Rhythm: Normal rate and regular rhythm. Heart sounds: Normal heart sounds. Pulmonary: Effort: Pulmonary effort is normal. Breath sounds: Normal breath sounds. Musculoskeletal: Right lower leg: No edema. Left lower leg: No edema. Skin: General: Skin is warm and dry. Neurological: General: No focal deficit present. Mental Status: She is alert and oriented to person, place, and time. Psychiatric: Attention and Perception: Attention and perception normal. Mood and Affect: Affect normal. Mood is depressed. Speech: Speech normal. Behavior: Behavior normal. Thought Content: Thought content normal. Judgment: Judgment normal. Assessment and Plan # Persistent disorder of initiating or maintaining sleep (G47.00) - Sleep disturbances potentially related to timing of medication administration. - Discussed with patient the importance of moving certain medications back to bedtime to improve sleep quality. - Medications to be taken at bedtime include magnesium, Vraylar, and Prolixin. - Patient to discuss with Arjun Roche PA-C, about adjusting medication timings and potential use of Trazodone. - Follow-up with Dr. Deng for further management if current adjustments do not improve sleep. # Type 2 diabetes mellitus without complication, with long-term current use of insulin (HCC) (E11.9) - Current regimen includes Lantus 12 units at bedtime. - Advised patient to monitor morning blood glucose levels and adjust Lantus dose based on these readings. - Ordered Hemoglobin A1c to assess glycemic control. # Chronic midline low back pain, unspecified whether sciatica present (M54.50) # Fibromyalgia (M79.7) - Current pain management includes Nucynta 75 mg BID. - Initiated Tramadol 50 mg in the afternoon to provide additional pain relief. - Discussed non-pharmacological interventions for fibromyalgia, including increased physical activity. - Patient to continue using topical analgesics as needed. # Hyponatremia (E87.1) - Recent labs from [place] on November 25 showed sodium level at 125 mEq/L, indicating hyponatremia. - Advised patient to increase dietary sodium intake and consume electrolyte-rich fluids such as Gatorade. - Ordered repeat metabolic panel to monitor sodium levels. # Chronic, continuous use of opioids (F11.90) - Current opioid use includes Nucynta 75 mg BID. - Discussed risks of chronic opioid use and importance of adhering to prescribed dosages. - Exploring alternative pain management strategies to reduce reliance on opioids. # Ileostomy in place (HCC) (Z93.2) - Ileostomy supplies are adequate and being used appropriately. # Fecal soiling due to fecal incontinence (R15.9) - Incontinence supplies are being utilized effectively. # Acute cystitis without hematuria (N30.00) - Recent UTI treated at [facility]; symptoms have resolved. - Encouraged patient to maintain adequate hydration to prevent future infections. Discussed at length issues with pain management and her medications. Reviewed limit of MMED to be prescribed by primary care providers and goal to control pain better with other means as noted above instead of higher daily dose of opiates. Hoping improving sleep will help with pain control. Further evaluation and treatment as indicated. I spent a total of at least 60 minutes on the date of the service which included [id number] patient care, completing clinical documentation, obtaining and/or reviewing separately obtained history, performing a medically appropriate examination, counseling and educating the patient/family/caregiver, ordering medications, tests, or procedures, communicating results to the patient/family/caregiver, and care coordination (not separately reported). Tiff Pearson MD documented in this encounter [facility] 11-30-2023 Telephone encounter Note Called pt and appt with pcp arranged for later this afternoon. [facility] 11-30-2023 Miscellaneous Notes Called pt and appt with pcp arranged for later this afternoon. Patient needed to come in for appointment today in order to continue getting refills for Nucynta--they were told several times that she needs routine follow up at least every 3 months in order for us to be able to continue filling this medication She can come later today even though she missed her 1:20 appointment. If she does not come in today, will need to start tapering her off Nucy[facility]ta [facility]. The patient has been identified by name and date of : Yes Caregiver verified no other encounters exist for this prescription request: Yes Caregiver confirmed with patient/requestor that no other refills are due, in the near future, with this provider at this time: Yes The last office visit in the department: 08/25/2023 Does the patient have a future office visit with this provider/department: 11/30/2023 Requested Prescriptions Pending Prescriptions Disp Refills tapentadol (NUCYNTA) 75 mg tab 56 tablet 0 Sig: Take 1 tablet by mouth two times a day for 28 days. Patient should start on December 08, 2023. Current prescription ends 12/07/2023. Rama Burroughs RN November 30, 2023 10:52 AM documented in this encounter [facility] 11-30-2023 Telephone encounter Note Patient needed to come in for appointment today in order to continue getting refills for Nucynta--they were told several times that she needs routine follow up at least every 3 months in order for us to be able to continue filling this medication She can come later today even though she missed her 1:20 appointment. If she does not come in today, will need to start tapering her off Nucynta per [facility]. [facility] 11-30-2023 Telephone encounter Note The patient has been identified by name and date of : Yes Caregiver verified no other encounters exist for this prescription request: Yes Caregiver confirmed with patient/requestor that no other refills are due, in the near future, with this provider at this time: Yes The last office visit in the department: 08/25/2023 Does the patient have a future office visit with this provider/department: 11/30/2023 Requested Prescriptions Pending Prescriptions Disp Refills tapentadol (NUCYNTA) 75 mg tab 56 tablet 0 Sig: Take 1 tablet by mouth two times a day for 28 days. Patient should start on December 08, 2023. Current prescription ends 12/07/2023. Rama Burroughs RN November 30, 2023 10:52 AM [facility] 11-29-2023 Telephone encounter Note Patient has appointment with Dr. Pearson tomorrow 11/30/2023. Dr. Pearson plans on discussing this at appointment. [facility] 11-29-2023 Miscellaneous Notes Patient has appointment with Dr. Pearson tomorrow 11/30/2023. Dr. Pearson plans on discussing this at appointment. Left a message for pt to call the office and ask to speak to a nurse. Susan Freitas LPN Not sure what Third medication is referring to but wonder if meant 3rd dose of Nucynta since patient's asking about going back on Nucynta but she is still on it. Last RX 11/08. Will discuss at appointment next week (as they were told below), but the answer will be no since that is a higher dose than what we are to prescribe in primary care--should see pain management if were to be taking that high a dose. She should still keep working with sleep medicine to improve sleep issues. Will need to discuss at appointment since not sure what the plan was with sleep medicine. No sleep medicine notes in Epic found. Patient scheduled 11/29 with PCP. Patient's on the phone with concerns that patient has been unable to sleep well for the past 8 months. States that she wakes up crying due to the pain, which is keeping him awake as well. States that they seen the sleep specialist and is states they took away the third medication Pts spouse asking if patient can go back on Nucynta. Advised Foreign this can be discussed at OV next week. Asking what to do in the mean time for sleep. Looks like patient went to ER on 11/19 and was given RX for Levsin there according to ER summary on Care Everywhere, but I do not see the med on Dispense report yet. There might be a delay in updating. See whether patient still needs this RX Also, she is due for 3 juan jose follow up after seeing Dr. Flores 08/24 since missed 2 month follow up with Shawn in October. but appointment not till December--see if needs/wants to move up appointment (there is a slot this and several slots next ). Also--get ER summary and labs (hard to read everything on Care Everywhere) The patient has been identified by name and date of : Yes Caregiver verified no other encounters exist for this prescription request: Yes Caregiver confirmed with patient/requestor that no other refills are due, in the near future, with this provider at this time: Yes The last office visit in the department: 08/25/2023 Does the patient have a future office visit with this provider/department: Yes 12/08/2023 Requested Prescriptions Pending Prescriptions Disp Refills hyoscyamine sublingual (LEVSIN SL) 0.125 mg 60 tablet 1 Sig: Dissolve 1 tablet under the tongue every 6 hours as needed (epigastric discomfort). Quiana Jett RN November 20, 2023 12:54 PM documented in this encounter [facility] 11-27-2023 Telephone encounter Note Left a message for pt to call the office and ask to speak to a nurse. Susan Freitas LPN [facility] 11-24-2023 Telephone encounter Note Patient is scheduled 11/30/23 [facility] 11-24-2023 Miscellaneous Notes Patient is scheduled 11/30/23 Appointment needs to be sooner than 12/07 since refill will not last till then plus she has to be seen at least every 3 months or cannot continue to refill medication. She cannot get a full RX of this medication if misses her follow up and will need to taper off this medication if she is not able to follow up at least every 3 months consistently per [facility] protocol for managing controlled medications. The following approved medication requests have been transmitted electronically. Requested Prescriptions Signed Prescriptions Disp Refills tapentadol (NUCYNTA) 75 mg tab 56 tablet 0 Sig: Take 1 tablet by mouth two times a day for 28 days. Patient should start on November 09, 2023. Authorizing Provider: TIFF PEARSON MD I will be opening up a Monday and some in November if cannot find a slot that works for her The patient has been identified by name and date of : Yes Caregiver verified no other encounters exist for this prescription request: Yes Caregiver confirmed with patient/requestor that no other refills are due, in the near future, with this provider at this time: Yes The last office visit in the department: 08/25/2023 Does the patient have a future office visit with this provider/department: Yes 12/08/2023 Requested Prescriptions Pending Prescriptions Disp Refills tapentadol (NUCYNTA) 75 mg tab 56 tablet 0 Sig: Take 1 tablet by mouth two times a day for 28 days. Cameron Daley RN November 03, 2023 2:19 PM documented in this encounter [facility] 11-23-2023 Telephone encounter Note Not sure what Third medication is referring to but wonder if meant 3rd dose of Nucynta since patient's asking about going back on Nucynta but she is still on it. Last RX 11/08. Will discuss at appointment next week (as they were told below), but the answer will be no since that is a higher dose than what we are to prescribe in primary care--should see pain management if were to be taking that high a dose. She should still keep working with sleep medicine to improve sleep issues. Will need to discuss at appointment since not sure what the plan was with sleep medicine. No sleep medicine notes in [facility] found. [facility] 11-21-2023 Telephone encounter Note Patient scheduled 11/29 with PCP. Patient's on the phone with concerns that patient has been unable to sleep well for the past 8 months. States that she wakes up crying due to the pain, which is keeping him awake as well. States that they seen the sleep specialist and is states they took away the third medication Pts spouse asking if patient can go back on Nucynta. Advised Foreign this can be discussed at OV next week. Asking what to do in the mean time for sleep. [facility] 11-21-2023 Telephone encounter Note Looks like patient went to ER on 11/19 and was given RX for Levsin there according to ER summary on Care Everywhere, but I do not see the med on Dispense report yet. There might be a delay in updating. See whether patient still needs this RX Also, she is due for 3 jaun jose follow up after seeing Dr. Flores 08/24 since missed 2 month follow up with Shawn in October. but appointment not till December--see if needs/wants to move up appointment (there is a slot this and several slots next ). Also--get ER summary and labs (hard to read everything on Care Everywhere) T [facility] 11-20-2023 Telephone encounter Note The patient has been identified by name and date of : Yes Caregiver verified no other encounters exist for this prescription request: Yes Caregiver confirmed with patient/requestor that no other refills are due, in the near future, with this provider at this time: Yes The last office visit in the department: 08/25/2023 Does the patient have a future office visit with this provider/department: Yes 12/08/2023 Requested Prescriptions Pending Prescriptions Disp Refills hyoscyamine sublingual (LEVSIN SL) 0.125 mg 60 tablet 1 Sig: Dissolve 1 tablet under the tongue every 6 hours as needed (epigastric discomfort). Quiana Jett RN November 20, 2023 12:54 PM [facility] 11-17-2023 Telephone encounter Note Signed and faxed, patient aware. Viviana Morillo LPN [facility] 11-17-2023 Miscellaneous Notes Signed and faxed, patient aware. Viviana Morillo LPN Fax filled out and ready to be signed by Provider. Viviana Morillo LPN Fax received, waiting for PCP to review/sign. Jessica Dominguez LPN Pt's calls states [facility] has told them they have reached out numerous time for a script for pt's xl Pull ups. Pt is needing these and can not seem to get the script sent to [facility]. Please advise. documented in this encounter [facility] 11-17-2023 Telephone encounter Note Fax filled out and ready to be signed by Provider. Viviana Morillo LPN [facility] 11-16-2023 Telephone encounter Note The following approved medication requests have been transmitted electronically. Requested Prescriptions Pending Prescriptions Disp Refills insulin glargine (LANTUS SOLOSTAR U-100 INSULIN) 100 unit/mL (3 mL) 5 Each 4 Sig: Inject 18 Units subcutaneously daily at bedtime AND 2 Units daily at bedtime. Adjust as directed (2 units to prime pen needle. Tiff Pearson MD [facility] 11-16-2023 Miscellaneous Notes The following approved medication requests have been transmitted electronically. Requested Prescriptions Pending Prescriptions Disp Refills insulin glargine (LANTUS SOLOSTAR U-100 INSULIN) 100 unit/mL (3 mL) 5 Each 4 Sig: Inject 18 Units subcutaneously daily at bedtime AND 2 Units daily at bedtime. Adjust as directed (2 units to prime pen needle. Tiff Pearson MD Patient has been identified by name and date of : Yes Pharmacy phones for refill(s): Requested Prescriptions Pending Prescriptions Disp Refills insulin glargine (LANTUS SOLOSTAR U-100 INSULIN) 100 unit/mL (3 mL) 5 Each 4 Sig: Inject 18 Units subcutaneously daily at bedtime AND 2 Units daily at bedtime. Adjust as directed (2 units to prime pen needle. Date of last office visit in primary care: 08/25/2023 Date of next office visit in primary care: 12/08/2023 Please advise. Thank you. Jessica Dominguez LPN. documented in this encounter [facility] 11-16-2023 Telephone encounter Note Patient has been identified by name and date of : Yes Pharmacy phones for refill(s): Requested Prescriptions Pending Prescriptions Disp Refills insulin glargine (LANTUS SOLOSTAR U-100 INSULIN) 100 unit/mL (3 mL) 5 Each 4 Sig: Inject 18 Units subcutaneously daily at bedtime AND 2 Units daily at bedtime. Adjust as directed (2 units to prime pen needle. Date of last office visit in primary care: 08/25/2023 Date of next office visit in primary care: 12/08/2023 Please advise. Thank you. Jessica Dominguez LPN. [facility] 11-16-2023 Telephone encounter Note Fax received, waiting for PCP to review/sign. Jessica Dominguez LPN [facility] 11-16-2023 Telephone encounter Note Pt's calls states [facility] has told them they have reached out numerous time for a script for pt's xl Pull ups. Pt is needing these and can not seem to get the script sent to [facility]. Please advise. [facility] 11-14-2023 Telephone encounter Note Noted [facility] 11-14-2023 Miscellaneous Notes Noted Hilary with [facility] calls to let provider know that patients health assessment has been completed and her POC is uploaded to the providers portal for review. Nothing further needed. Closing TE. Rama Burroughs RN documented in this encounter [facility] 11-14-2023 Telephone encounter Note Hilary with [facility] calls to let provider know that patients health assessment has been completed and her POC is uploaded to the providers portal for review. Nothing further needed. Closing TE. Rama Burroughs, HARLEY [facility] 11-09-2023 Instructions Suzanna Escalante - 11/09/2023 11:34 AM EDT Diabetes Foot Care Instructions When you [...] (or decreased sensation in your feet) a reverse engineer should always cut your toenails. Be Careful [...] Go to your health care provider or reverse engineer to treat these conditions. documented in this encounter [facility] 11-09-2023 History of Presen t illness Narrative Last saw pcp: 10/02/23 Subjective: Patient presents to clinic c/o painful toenails. They state that the nails are especially painful with shoe gear and pressure. Patient states that nails 1-5 b/l are painful. Patient admits to being diabetic. No other pedal complaints at this time. Patient states no change in medications or medical history since last visit. Objective: Patient presents to clinic ambulating in [facility] Vasc: DP and PT pulses are [...] noted. 1st MPJ ROM is full bilateral. Bunion is noted to left foot Assessment: (B35.1) Onychomycosis (primary encounter diagnosis) (M79.674) Pain in toe of right foot (M79.675) Pain in toe of left foot (E11.49) Other diabetic neurological complication associated with type 2 diabetes mellitus (HCC) (M20.12) Hallux valgus of left foot Plan: Patient was seen and evaluated. Nails 1-5 bilateral were debrided in length and thickness. Patient was instructed on the continued importance of diabetic foot care along with proper diet and keeping their blood sugar under control to prevent complications. Discussed the importance of avoiding barefoot walking, wearing good shoes and inspection of feet daily Diabetic shoes ordered. Pateint will benefit given history of diabetes and small bunion. Patient is to RTC in 3-4 months. Suzanna Escalante DPM AMB ROOMING INTAKE FLOWSHEET DATA Patient presents with: Left Foot - Established Patient, Diabetic Foot Care Right Foot - Established Patient, Diabetic Foot Care Emely Shah LPN documented in this encounter [facility] 11-09-2023 Telephone encounter Note Images from the original note were not included. Prior authorization approved Payer: [employer] Note from payer: PEG Case: [id number], Status: Approved, Coverage Starts on: 11/05/2023 12:00:00 AM, Coverage Ends on: 11/08/2024 12:00:00 AM. Approval Details Authorization number: [id number] Authorized from November 05, 2023 to November 08, 2024 Electronic appeal: Not supported View History Notes Time User Attachment Attachment received from payer. 11/09/2023 8:46 AM [facility], Rx Priorauth In Document Medication Being Authorized tapentadol (NUCYNTA) 75 mg tab Take 1 tablet by mouth two times a day for 28 days. Patient should start on November 09, 2023. Dispense: 56 tablet Refills: 0 Start: 11/09/2023 End: 12/07/2023 Class: Normal Diagnoses: Chronic, continuous use of opioids; Fibromyalgia; Chronic midline low back pain, unspecified whether sciatica present This order has been released to its destination. To be filled at: [place] [address] [address] - [phone] Pharmacy notified. [facility] 11-09-2023 Miscellaneous Notes Images from the original note were not included. Prior authorization approved Payer: Cielo Note from payer: PEG Case: [id number], Status: Approved, Coverage Starts on: 11/05/2023 12:00:00 AM, Coverage Ends on: 11/08/2024 12:00:00 AM. Approval Details Authorization number: [id number] Authorized from November 05, 2023 to November 08, 2024 Electronic appeal: Not supported View History Notes Time User Attachment Attachment received from payer. 11/09/2023 8:46 AM [facility], Rx Priorauth In Document Medication Being Authorized tapentadol (NUCYNTA) 75 mg tab Take 1 tablet by mouth two times a day for 28 days. Patient should start on November 09, 2023. Dispense: 56 tablet Refills: 0 Start: 11/09/2023 End: 12/07/2023 Class: Normal Diagnoses: Chronic, continuous use of opioids; Fibromyalgia; Chronic midline low back pain, unspecified whether sciatica present This order has been released to its destination. To be filled at: [facility] [place] [address] [address] - [phone] Pharmacy notified. Electronic PA requested. Completed. Prior Authorization Documentation Prior authorization requested for the following medication: Medication: Nucynta Provider: [facility] reports patient has a new insurance that starts in Nov 2023. Insurance Company Name: [employer] Phone number: [phone] Patient ID number: [id number] Pharmacy Name: [facility] Telephone number: [phone] documented in this encounter [facility] 11-09-2023 Telephone encounter Note Electronic PA requested. Completed. [facility] 11-09-2023 Telephone encounter Note Prior Authorization Documentation Prior authorization requested for the following medication: Medication: Nucynta [facility] patient has a new insurance that starts in Nov 2023. Insurance Company Name: [employer] Phone number: [phone] Patient ID number: [id number] Pharmacy Name: [facility] Telephone number: [phone] [facility] 11-08-2023 Telephone encounter Note New script sent [facility] 11-08-2023 Miscellaneous Notes New script sent Melani from [facility] calling patient insurance changed this month to [place]. Not updated in our computer. Now needs another glucose meter, strips etc. Requesting either One Touch or Accucheck, not specified which type. Pending rx for generic with both so patient can decide. Please advise The patient has been identified by name and date of : Yes Pharmacy Caregiver verified no other encounters exist for this prescription request: Yes Caregiver confirmed with patient/requestor that no other refills are due, in the near future, with this provider at this time: Yes The last office visit in the department: 08/25/2023 Does the patient have a future office visit with this provider/department: Yes 12/08/2023 Requested Prescriptions Pending Prescriptions Disp Refills Blood-Glucose Meter monitoring kit 1 Each 0 Sig: Glucose Meter of Choice - Kit - Dx: Type 2 DM - Uncontrolled E11.65 Insulin Yes Insurance covers One Touch or Accucheck blood sugar diagnostic (BLOOD GLUCOSE TEST) test strip 150 Strip 11 Sig: Test blood sugar(s) 4 times daily. Dx: Type 2 DM - Uncontrolled E11.65 Insulin: Yes Insurance covers One Touch or Accucheck Carmenza Vasquez LPN November 07, 2023 2:35 PM documented in this encounter [facility] 11-07-2023 Telephone encounter Note Melani from [facility] calling patient insurance changed this month to [place]. Not updated in our computer. Now needs another glucose meter, strips etc. Requesting either One Touch or Accucheck, not specified which type. Pending rx for generic with both so patient can decide. Please advise The patient has been identified by name and date of : Yes Pharmacy Caregiver verified no other encounters exist for this prescription request: Yes Caregiver confirmed with patient/requestor that no other refills are due, in the near future, with this provider at this time: Yes The last office visit in the department: 08/25/2023 Does the patient have a future office visit with this provider/department: Yes 12/08/2023 Requested Prescriptions Pending Prescriptions Disp Refills Blood-Glucose Meter monitoring kit 1 Each 0 Sig: Glucose Meter of Choice - Kit - Dx: Type 2 DM - Uncontrolled E11.65 Insulin Yes Insurance covers One Touch or Accucheck blood sugar diagnostic (BLOOD GLUCOSE TEST) test strip 150 Strip 11 Sig: Test blood sugar(s) 4 times daily. Dx: Type 2 DM - Uncontrolled E11.65 Insulin: Yes Insurance covers One Touch or Accucheck Carmenza Vasquez LPN November 07, 2023 2:35 PM [facility] 11-03-2023 Telephone encounter Note Appointment needs to be sooner than 12/07 since refill will not last till then plus she has to be seen at least every 3 months or cannot continue to refill medication. She cannot get a full RX of this medication if misses her follow up and will need to taper off this medication if she is not able to follow up at least every 3 months consistently per [facility] protocol for managing controlled medications. The following approved medication requests have been transmitted electronically. Requested Prescriptions Signed Prescriptions Disp Refills tapentadol (NUCYNTA) 75 mg tab 56 tablet 0 Sig: Take 1 tablet by mouth two times a day for 28 days. Patient should start on November 09, 2023. Authorizing Provider: TIFF PEARSON MD I will be opening up a Monday and some in November if cannot find a slot that works for her T [facility] 11-03-2023 Telephone encounter Note The patient has been identified by name and date of : Yes Caregiver verified no other encounters exist for this prescription request: Yes Caregiver confirmed with patient/requestor that no other refills are due, in the near future, with this provider at this time: Yes The last office visit in the department: 08/25/2023 Does the patient have a future office visit with this provider/department: Yes 12/08/2023 Requested Prescriptions Pending Prescriptions Disp Refills tapentadol (NUCYNTA) 75 mg tab 56 tablet 0 Sig: Take 1 tablet by mouth two times a day for 28 days. Cameron Daley RN November 03, 2023 2:19 PM [facility] 10-12-2023 Telephone encounter Note Fax rec'd from [facility] this PA was approved until 03/05/24. This info was faxed to the pharmacy. gutierrez hobson (Serrato: [id number]) PA Need Help? Call us at Outcome [facility] Case: [id number], Status: Approved, Coverage Starts on: 10/05/2023 12:00:00 AM, Coverage Ends on: 03/05/2024 12:00:00 AM. Questions? Contact . Authorization Expiration Date: 03/04/2024 Drug Nucynta 75MG tablets ePA cloud logo Form itravel Electronic PA Form [facility] 10-12-2023 Miscellaneous Notes Fax rec'd from [facility] this PA was approved until 03/05/24. This info was faxed to the pharmacy. gutierrez hobson (Serrato: [id number]) PA Need Help? Call us at Outcome Approved today by itravel [place] 2017 PA Case: [id number], Status: Approved, Coverage Starts on: 10/05/2023 12:00:00 AM, Coverage Ends on: 03/05/2024 12:00:00 AM. Questions? Contact . Authorization Expiration Date: 03/04/2024 Drug Nucynta 75MG tablets ePA cloud logo Form [employer] Electronic PA Form Pharmacy says ID number is [id number]. PA completed via covermymeds and asked for urgent review as this refill is due today. gutierrez pettyntire (Serrato: [id number]) - [id number] Nucynta 75MG tablets status: PA Request Created: October 12, 2023 Sent: October 12, 2023 Trying to get PA completed for nucytna. Pharmacy is trying to get correct info from pt. The covermymeds PA ID number pharmacy entered the response we get says it's not correct. documented in this encounter [facility] 10-12-2023 Telephone encounter Note Pharmacy says ID number is [id number]. PA completed via covermymeds and asked for urgent review as this refill is due today. gutierrez hobson (Serrato: [id number]) - [id number] Nucynta 75MG tablets status: PA Request Created: October 12, 2023 Sent: October 12, 2023 [facility] 10-12-2023 Telephone encounter Note Trying to get PA completed for nucytna. Pharmacy is trying to get correct info from pt. The covermymeds PA ID number pharmacy entered the response we get says it's not correct. [facility] 10-11-2023 Telephone encounter Note Patient aware forms faxed to DME. Viviana Morillo LPN [facility] 10-11-2023 Miscellaneous Notes Patient aware forms faxed to DME. Viviana Morillo LPN Forms received and PCP to address. Viviana Morillo LPN Still have not received the forms from the [employer]. Viviana Morillo LPN See Telephone encounter dated 08/07/2023. Viviana Morillo LPN Pt calling and she is in need of more pull ups.. Pt reports using up to to 10 or more per day. Pt is having watery and yellow in color mucous with a foul odor. This is coming out vaginally. They are requesting 30 packages of 14 each to last them for 1 month. Nelda with [facility] was on the phone with Spouse when Gutierrez called the office and they put the phone so Arturo;fay could talk to me. They are sending out 15 packages of 14 today and she is faxing over an order to get 15 more packages sent to them but they need there form completed and signed with the reason pt is in need of the 30 packages of 14 per month. When they received this back they will get the rest shipped out to them. Then next month they will starting sending out the 30 packages at the same time. PH: [phone] FAX: [phone] Watching for form. Susan Freitas LPN Has this been completed? Spoke to [employer] regarding patients request to get 30 packs instead of 20. [employer] updated the order form to 30 packs and will be faxing order #[id number] to office for providers signature and once its signed and faxed back they will ship out an a extra pack of 10 to patient. Do we need an order form from DME supplier company? How many was dispensed? Adult diapers size XL, [employer] medical supplies, needs another 10 pack added on to current rx. Patient stated that she has some coming in today, but will be 10 short. She will need a 30 in the future. Unable to find adult diapers on her med list Please review and advise Lia Valdez LPN documented in this encounter [facility] 10-10-2023 Telephone encounter Note Forms received and PCP to address. Viviana Morillo LPN [facility] 10-06-2023 Telephone encounter Note Patient has been identified by name and date of : Pharmacy phones for refill(s): Requested Prescriptions Pending Prescriptions Disp Refills tapentadol (NUCYNTA) 75 mg tab 56 tablet 0 Sig: Take 1 tablet by mouth two times a day for 28 days. Date of last office visit in primary care: 05/19/2021 Date of next office visit in primary care: Visit date not found Please advise. Thank you. Sera Ruiz LPN. [facility] 10-06-2023 Miscellaneous Notes Patient has been identified by name and date of : Pharmacy phones for refill(s): Requested Prescriptions Pending Prescriptions Disp Refills tapentadol (NUCYNTA) 75 mg tab 56 tablet 0 Sig: Take 1 tablet by mouth two times a day for 28 days. Date of last office visit in primary care: 05/19/2021 Date of next office visit in primary care: Visit date not found Please advise. Thank you. Sera Ruiz LPN. documented in this encounter [facility] 10-02-2023 History of Presen t illness Narrative Images from the original note were not included. Subjective HPI Nontoxic-appearing female presents urgent care chief complaint itching. Has some areas of excoriation on her back this has been there for couple months. Slight area of discomfort. Presents today for evaluation. Denies any fever body aches chills productive cough chest pain shortness of breath pleuritic pain hemoptysis nausea vomiting abdominal pain change in bowel or bladder habits. Past medical history prescription medication use and allergies reviewed. 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 02/05/2010 Diabetes ([facility]) 1999 On insulin 2015 Dyslipidemia Encephalopathy in [...] in limb 02/05/2010 Paranoid schizophrenia, chronic condition ([facility]) 1985 Peptic ulcer, unspecified site, unspecified as [...] follow daily CBC and coags S/P colostomy ([facility]) SBO (small bowel obstruction) ([facility]) 09/11/2016 Skin lesion 03/09/2015 Skin sloughing on [...] 09/10/2016 Added automatically from request for surgery [id number] 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 Do not start before September 14, 2023. iron polysaccharide complex (FERREX 150) 150 mg iron capsule Take 1 capsule by mouth every Monday, Monday, and Monday. melatonin 10 mg tab Take 1 tablet by mouth at bedtime as needed for insomnia. hydrocortisone 2.5 % cream Apply 1 application to affected area two times a day as needed. Location: neck (reaction to tape adhesive) May also use for poison tania. Use up to 14 days per episode of rash. cetirizine (ZYRTEC) 10 mg tablet Take 1 tablet by mouth at bedtime as needed for cold/allergy symptoms (itching). clotrimazole (LOTRIMIN) 1 % cream Apply to affected area two times a day. diclofenac (VOLTAREN ARTHRITIS PAIN) 1 % topical gel Apply 2 g to affected area four times daily. guaiFENesin (MUCINEX) 600 mg 12 hr tablet Take 2 tablets by mouth two times a day. hyoscyamine sublingual (LEVSIN SL) 0.125 mg Dissolve 2 tablets under the tongue every 6 hours as needed. ipratropium-albuterol (DUONEB) 0.5 mg-3 mg(2.5 mg base)/3 mL nebu Inhale 3 mL as instructed four times a day as needed (wheezing). Use over 5-15minutes per nebulizer. nystatin (MYCOSTATIN) powder Apply 1 application to affected area four times a day as needed. fluticasone-salmeterol (ADVAIR DISKUS) 100-50 mcg/dose inhaler Inhale 1 Puff as instructed two times a day. Rinse mouth out after use with water. nystatin (MYCOSTATIN) 100,000 unit/mL suspension Take 5 mL by mouth four times daily. 1tsp swish in mouth for several minutes, then swallow (or expectorate) 4 times daily until gone. omeprazole (PRILOSEC) 20 mg capsule Take 1 capsule by mouth once daily. insulin needles, DISPOSABLE, (PEN NEEDLE) 31 gauge x 5/16 Use one needle per dose (Lantus and Humalog). 5 per day. triamcinolone acetonide (KENALOG) 0.1 % cream Apply 1 application to affected area three times a day. Apply sparingly to area for rash/itching till rash resolves. For contact dermatitis glimepiride (AMARYL) 4 mg tablet Take 1 tablet by mouth daily with breakfast. Patient may take an extra half pill once a day for blood sugars over 200. hyoscyamine sublingual (LEVSIN SL) 0.125 mg Dissolve 1 tablet under the tongue every 6 hours as needed (epigastric discomfort). magnesium oxide (MAG-OX) 400 mg (241.3 mg magnesium) tablet Take 1 tablet by mouth once daily. lidocaine (LMX) 4 % cream Apply to affected area four times a day as needed (for painful sore in rectal area as directed). pravastatin (PRAVACHOL) 40 mg tablet Take 1 tablet by mouth once daily. Ostomy Supplies [facility]. [facility] Ref# [id number] 10 to a box, 3 boxes 2. [facility] Protective Barrier Wipes Ref # [id number] 1 box = 50 wipes, 3 boxes 3. [facility] Adhesive Glue Ref # [id number] 2 oz tube, 3 tubes 4. [facility] Stoma Adhesive Powder Ref # [id number] 1 oz bottle, 3 bottles 5. [facility] Stoma Bags Ref # [id number] 10 in a box, 3 boxes gabapentin (NEURONTIN) 300 mg capsule ketoconazole (NIZORAL) 2 % cream Apply 1 application to affected area once daily. as needed Lancets lancets Test blood sugar(s) 1 times daily and as needed. Dx: Type 2 DM - Uncontrolled E11.65 Insulin: Yes insulin glargine (LANTUS SOLOSTAR U-100 INSULIN) 100 unit/mL (3 mL) Inject 18 Units subcutaneously daily at bedtime AND 2 Units daily at bedtime. Adjust as directed (2 units to prime pen needle. miconazole (CADENCE ANTIFUNGAL) 2 % cream Apply 1 application to affected area twice daily. To perirectal and buttocks area INGREZZA 80 mg capsule Take 1 tablet by mouth once daily. fluticasone (FLONASE) 50 mcg/actuation nasal spray Use 2 Sprays in each nostril once daily. Rinse mouth after use. Nebulizer and Compressor For Neb 1 Each as needed (Use as directed for treatment of asthma). Nebulizer Accessories [facility] Needs new nebulizer mask, hose and supplies. (J45.20) Intermittent asthma without complication Zinc Oxide 40 % oint Apply to affected area as needed. Ostomy Supplies (ADHESIVE REMOVER WIPES) swab All Care brand. Use as directed fluPHENAZine (PROLIXIN) 1 mg tablet Take 3 mg by mouth once daily. Nebulizer Accessories [facility] Needs new nebulizer mask, hose and supplies. (J45.20) Intermittent asthma without complication Nebulizer New (not refurbished) NEBULIZER FOR HOME USE with Duoneb 4 x a day. DX: J45.909, Z87.09. Lifetime supplies of mask/tubing, patient has tracheostomy. blood sugar diagnostic (FREESTYLE INSULINX) test strip Test blood sugar(s) 4 times daily and as needed. Dx: Type 2 DM - Uncontrolled E11.65 Insulin: Yes VRAYLAR 3 mg cap Take 3 mg by mouth daily at bedtime. white petrolatum-mineral oil (EUCERIN) cream Apply 1 application to affected area as needed for Dry Skin (all dry skin areas). alcohol swabs (SURE-PREP ALCHOLOL PREP PADS) Test blood sugars 4 x's daily. Dx: E11.65 Insulin: Yes (Patient not taking: Reported on 10/02/2023) benzonatate (TESSALON PERLE) 100 mg capsule Take 2 capsules by mouth three times a day as needed. (Patient not taking: Reported on 10/02/2023) blood sugar diagnostic (BLOOD GLUCOSE TEST) test strip Test blood sugar(s) 4 times daily and as needed as directed. Dx: Type 2 DM - Uncontrolled E11.65 Insulin: Yes (Patient not taking: Reported on 10/02/2023) vancomycin 25 mg/mL ophthalmic drops ([facility]) Use 1 Drop in the right eye every 2 hours. (Patient not taking: Reported on 08/02/2023) Adhesive Tape (DURAPORE SURGICAL) 2 X 10 -yard tape Use for dressings for healing tracheostomy site. (Patient not taking: Reported on 10/02/2023) traZODone (DESYREL) 100 mg tablet Take 3 tablets by mouth daily at bedtime. ([facility]) (Patient not taking: Reported on 08/02/2023) topiramate (TOPAMAX) 100 mg tablet Take 1 tablet by mouth once daily. Per psychiatrist (Patient not taking: Reported on 08/02/2023) FAMILY HISTORY Problem Relation Age of Onset [...] abuse, quit before 1999. Medical Marijuana BP 120/70 Pulse 76 Temp 36.7 C (98.1 F) Resp 16 Wt 72.4 kg (159 lb 9.8 oz) SpO2 99% BMI 25.76 kg/m Review of Systems Constitutional: Negative for chills, fever and malaise/fatigue. HENT: Negative for congestion, ear discharge, ear pain, sinus pain and sore throat. Eyes: Negative for blurred vision, pain, discharge and redness. Respiratory: Negative for cough, hemoptysis, sputum production, shortness of breath, wheezing and stridor. Cardiovascular: Negative for chest pain. Gastrointestinal: Negative for abdominal pain, diarrhea, nausea and vomiting. Musculoskeletal: Negative for myalgias. Skin: Positive for itching. Negative for rash. Neurological: Negative for dizziness and headaches. Objective Physical Exam Constitutional: General: She is not in acute distress. Appearance: She is not toxic-appearing. HENT: Head: Normocephalic. Nose: Nose normal. Eyes: Pupils: Pupils are equal, round, and reactive to light. Cardiovascular: Rate and Rhythm: Normal rate. Pulmonary: Effort: Pulmonary effort is normal. No respiratory distress. Musculoskeletal: Cervical back: Normal range of motion. Skin: General: Skin is warm and dry. Comments: Multiple areas of excoriation noted. Scabbing noted. No drainage. No evidence of infection. Neurological: General: No focal deficit present. Mental Status: She is alert. ASSESSMENT/PLAN: 1. Rash - ICD9: 782.1, ICD10: R21 Diagnosed with rash. Use mupirocin on areas of excoriation. Instructed on the use of moisturizing lotions. Follow-up with PCP 3 to 5 days symptoms do not improve. Patient was educated on supportive therapies. Patient was instructed to immediately proceed to emergency room for any new, worsening, or symptoms lasting longer than anticipated. The patient's clinical presentation is otherwise unremarkable at this time. Based on exam and clinical finding, the patient is stable for discharge. Plan of care was discussed with patient. Patient verbalizes understanding and agrees to plan of care. This note was generated using [employer] software. It may contain errors in wording, punctuation, or spelling. Arvind Mcleod APRN.DAVIDE documented in this encounter [facility] 09-13-2023 Telephone encounter Note The following approved medication requests have been transmitted electronically. Requested Prescriptions Signed Prescriptions Disp Refills tapentadol (NUCYNTA) 75 mg tab 56 tablet 0 Sig: Take 1 tablet by mouth two times a day for 28 days. Do not start before September 14, 2023. Authorizing Provider: TIFF PEARSON MD [facility] 09-13-2023 Miscellaneous Notes The following approved medication requests have been transmitted electronically. Requested Prescriptions Signed Prescriptions Disp Refills tapentadol (NUCYNTA) 75 mg tab 56 tablet 0 Sig: Take 1 tablet by mouth two times a day for 28 days. Do not start before September 14, 2023. Authorizing Provider: TIFF PEARSON MD The patient has been identified by name and date of : Yes Caregiver verified no other encounters exist for this prescription request: Yes Caregiver confirmed with patient/requestor that no other refills are due, in the near future, with this provider at this time: Yes The last office visit in the department: 08/25/2023 Does the patient have a future office visit with this provider/department: Yes 10/09/2023 Requested Prescriptions Pending Prescriptions Disp Refills tapentadol (NUCYNTA) 75 mg tab 56 tablet 0 Sig: Take 1 tablet by mouth two times a day for 28 days. [facility] reports patient is out of medication today. Cameron Daley RN September 13, 2023 11:49 AM documented in this encounter [facility] 09-13-2023 Telephone encounter Note The patient has been identified by name and date of : Yes Caregiver verified no other encounters exist for this prescription request: Yes Caregiver confirmed with patient/requestor that no other refills are due, in the near future, with this provider at this time: Yes The last office visit in the department: 08/25/2023 Does the patient have a future office visit with this provider/department: Yes 10/09/2023 Requested Prescriptions Pending Prescriptions Disp Refills tapentadol (NUCYNTA) 75 mg tab 56 tablet 0 Sig: Take 1 tablet by mouth two times a day for 28 days. [facility] reports patient is out of medication today. Cameron Daley RN September 13, 2023 11:49 AM [facility] 09-12-2023 Telephone encounter Note Still have not received the forms from the [employer]. Viviana Morillo LPN [facility] 09-12-2023 Telephone encounter Note See Telephone encounter dated 08/07/2023. Viviana Morillo LPN [facility] 09-11-2023 Telephone encounter Note Pt calling and she is in need of more pull ups.. Pt reports using up to to 10 or more per day. Pt is having watery and yellow in color mucous with a foul odor. This is coming out vaginally. They are requesting 30 packages of 14 each to last them for 1 month. Nelda with [employer] was on the phone with Spouse when Gutierrez called the office and they put the phone so Arturo;fay could talk to me. They are sending out 15 packages of 14 today and she is faxing over an order to get 15 more packages sent to them but they need there form completed and signed with the reason pt is in need of the 30 packages of 14 per month. When they received this back they will get the rest shipped out to them. Then next month they will starting sending out the 30 packages at the same time. PH: [phone] FAX: [phone] Watching for form. Susan Freitas LPN [facility] 08-25-2023 History of Presen t illness Narrative This note was created using Zenph. Subjective Patient presents with: Acute Visit: Sore on left buttocks getting worse Gutierrez Hobson is a 62 year old female here with spouse. She's had a chronic sore of the left buttock for a few years that flared up 2 months ago, was more tender, and was draining more. She had incontinence of stool She had evaluations for this in the past and was told she was too complicated. She was diabetic and this was now better controlled. Review of Systems Constitutional: Negative for chills, diaphoresis and fever. Gastrointestinal: Positive for rectal pain. Negative for abdominal pain, nausea and vomiting. 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 Hypoalbuminemia Hypoproteinemia ([facility]) Class 1 Obesity Due to Excess Calories With Serious Comorbidity and Body Mass Index (Bmi) of 33.0 to 33.9 in Adult Obesity, Class II, Bmi 35-39.9 Chronic Obstructive Pulmonary Disease (Copd) (Hcc) Diabetic Peripheral Neuropathy Associated With Type 2 Diabetes Mellitus (Hcc) Magnesium Deficiency Conjunctivitis Endogenous Endophthalmitis Anemia Fibromyalgia Chronic Midline Low Back Pain Social History Tobacco Use Smoking status: Former Packs/day: 2.00 Years: 45.00 Additional pack years: 0.00 Total pack years: 90.00 Types: Cigarettes Start date: 1965 Quit date: 08/27/2010 Years since quittin.0 Smokeless tobacco: Current Tobacco comments: Medical Vaping Use Vaping Use: Never used Substance Use Topics Alcohol use: No Drug use: Not Currently Types: Marijuana Comment: Cocaine abuse, quit before 1999. Medical Marijuana Current Outpatient Medications Medication Sig iron polysaccharide complex (FERREX 150) 150 mg iron capsule Take 1 capsule by mouth every Monday, Monday, and Monday. tapentadol (NUCYNTA) 75 mg tab Take 1 tablet by mouth two times a day for 28 days. Do not start before August 17, 2023. melatonin 10 mg tab Take 1 tablet by mouth at bedtime as needed for insomnia. hydrocortisone 2.5 % cream Apply 1 application to affected area two times a day as needed. Location: neck (reaction to tape adhesive) May also use for poison tania. Use up to 14 days per episode of rash. alcohol swabs (SURE-PREP ALCHOLOL PREP PADS) Test blood sugars 4 x's daily. Dx: E11.65 Insulin: Yes cetirizine (ZYRTEC) 10 mg tablet Take 1 tablet by mouth at bedtime as needed for cold/allergy symptoms (itching). clotrimazole (LOTRIMIN) 1 % cream Apply to affected area two times a day. diclofenac (VOLTAREN ARTHRITIS PAIN) 1 % topical gel Apply 2 g to affected area four times daily. guaiFENesin (MUCINEX) 600 mg 12 hr tablet Take 2 tablets by mouth two times a day. hyoscyamine sublingual (LEVSIN SL) 0.125 mg Dissolve 2 tablets under the tongue every 6 hours as needed. ipratropium-albuterol (DUONEB) 0.5 mg-3 mg(2.5 mg base)/3 mL nebu Inhale 3 mL as instructed four times a day as needed (wheezing). Use over 5-15minutes per nebulizer. nystatin (MYCOSTATIN) powder Apply 1 application to affected area four times a day as needed. fluticasone-salmeterol (ADVAIR DISKUS) 100-50 mcg/dose inhaler Inhale 1 Puff as instructed two times a day. Rinse mouth out after use with water. nystatin (MYCOSTATIN) 100,000 unit/mL suspension Take 5 mL by mouth four times daily. 1tsp swish in mouth for several minutes, then swallow (or expectorate) 4 times daily until gone. omeprazole (PRILOSEC) 20 mg capsule Take 1 capsule by mouth once daily. insulin needles, DISPOSABLE, (PEN NEEDLE) 31 gauge x /16 Use one needle per dose (Lantus and Humalog). 5 per day. triamcinolone acetonide (KENALOG) 0.1 % cream Apply 1 application to affected area three times a day. Apply sparingly to area for rash/itching till rash resolves. For contact dermatitis glimepiride (AMARYL) 4 mg tablet Take 1 tablet by mouth daily with breakfast. Patient may take an extra half pill once a day for blood sugars over 200. hyoscyamine sublingual (LEVSIN SL) 0.125 mg Dissolve 1 tablet under the tongue every 6 hours as needed (epigastric discomfort). magnesium oxide (MAG-OX) 400 mg (241.3 mg magnesium) tablet Take 1 tablet by mouth once daily. lidocaine (LMX) 4 % cream Apply to affected area four times a day as needed (for painful sore in rectal area as directed). pravastatin (PRAVACHOL) 40 mg tablet Take 1 tablet by mouth once daily. Ostomy Supplies [facility] 1. Convate Flanges Ref# [id number] 10 to a box, 3 boxes 2. Allkare Protective Barrier Wipes Ref # [id number] 1 box = 50 wipes, 3 boxes 3. Convate Adhesive Glue Ref # [id number] 2 oz tube, 3 tubes 4. Convate Stoma Adhesive Powder Ref # [id number] 1 oz bottle, 3 bottles 5. Convate Stoma Bags Ref # [id number] 10 in a box, 3 boxes benzonatate (TESSALON PERLE) 100 mg capsule Take 2 capsules by mouth three times a day as needed. gabapentin (NEURONTIN) 300 mg capsule blood sugar diagnostic (BLOOD GLUCOSE TEST) test strip Test blood sugar(s) 4 times daily and as needed as directed. Dx: Type 2 DM - Uncontrolled E11.65 Insulin: Yes ketoconazole (NIZORAL) 2 % cream Apply 1 application to affected area once daily. as needed Lancets lancets Test blood sugar(s) 1 times daily and as needed. Dx: Type 2 DM - Uncontrolled Insulin: Yes insulin glargine (LANTUS SOLOSTAR U-100 INSULIN) 100 unit/mL (3 mL) Inject 18 Units subcutaneously daily at bedtime AND 2 Units daily at bedtime. Adjust as directed (2 units to prime pen needle. miconazole (CADENCE ANTIFUNGAL) 2 % cream Apply 1 application to affected area twice daily. To perirectal and buttocks area INGREZZA 80 mg capsule Take 1 tablet by mouth once daily. fluticasone (FLONASE) 50 mcg/actuation nasal spray Use 2 Sprays in each nostril once daily. Rinse mouth after use. Nebulizer and Compressor For Neb 1 Each as needed (Use as directed for treatment of asthma). Nebulizer Accessories [facility] Needs new nebulizer mask, hose and supplies. (J45.20) Intermittent asthma without complication Zinc Oxide 40 % oint Apply to affected area as needed. Ostomy Supplies (ADHESIVE REMOVER WIPES) swab All Care brand. Use as directed fluPHENAZine (PROLIXIN) 1 mg tablet Take 3 mg by mouth once daily. Nebulizer Accessories [facility] Needs new nebulizer mask, hose and supplies. [...] Use for dressings for healing tracheostomy site. VRAYLAR 3 mg cap Take 3 mg by mouth daily at bedtime. white petrolatum-mineral oil (EUCERIN) cream Apply 1 application to affected area as needed for Dry Skin (all dry skin areas). vancomycin 25 mg/mL ophthalmic drops ([facility]) Use 1 Drop in the right eye every 2 hours. (Patient not taking: Reported on 08/02/2023) traZODone (DESYREL) 100 mg tablet Take 3 tablets by mouth daily at bedtime. ([facility]) (Patient not taking: Reported on 08/02/2023) topiramate (TOPAMAX) 100 mg tablet Take 1 tablet by mouth once daily. Per psychiatrist (Patient not taking: Reported on 08/02/2023) No current facility-administered medications for this visit. Objective BP (P) 102/64 (BP Site: Left Arm, BP Position: Sitting, BP Cuff Size: Large Adult) Pulse (P) 78 Temp (P) 36.9 C (98.5 F) (Temporal) Resp (P) 16 Wt (P) 71.7 kg (158 lb) BMI (P) 25.50 kg/m Physical Exam Constitutional: General: She is not in acute distress. Appearance: She is not toxic-appearing. Pulmonary: Effort: Pulmonary effort is normal. Genitourinary: Adnexa: Left: Tenderness and fullness present. No mass. Comments: Purulent drainage oozing from fistulas or fissures, left side. Neurological: Mental Status: She is alert. Latest Ref Rng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 Needs new nebulizer mask, hose and supplies. 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 Magnesium Deficiency - 06/14/2020 Comment: Replacement discussed. Continue Chronic Obstructive Pulmonary Disease (Copd) ([facility]) Obesity, Class II, Bmi 35-39.9 - 02/01/2018 Class 1 Obesity Due to Excess Calories With Serious Comorbidity and Body Mass Index (Bmi) of 33.0 to 33.9 in Adult - 11/08/2016 Complete Heart Block ([facility]) - 09/29/2016 Cardiac Pacemaker in Situ - 09/29/2016 Right Bundle Branch Block - 09/29/2016 Hypoalbuminemia - 09/29/2016 Hypoproteinemia ([facility]) - 09/29/2016 Enterocutaneous Fistula - 09/20/2016 Abdominal Adhesions - 09/15/2016 Chronic, Continuous Use of Opioids - 09/15/2016 History of Tracheal Stenosis - 09/15/[address] ([facility]) - 09/14/2016 Hypomagnesemia - 08/27/2015 Scruggs Catheter Dysfunction ([facility]) - 04/22/2015 Tracheostomy Care ([facility]) - 04/22/2015 Fistula - 04/01/2015 Small Intestinal [...] Review of Systems Respiratory: Negative. Cardiovascular: Negative. Musculoskeletal: Positive for arthralgias and myalgias. OBJECTIVE BP 92/54 Pulse 83 Wt 165 lb (74.8kg) SpO2 94% Physical Exam Vitals and nursing note reviewed. [...] No JVD. Trachea: Trachea normal. Pulmonary: Effort: Pulmonary effort is normal. No accessory muscle usage, prolonged expiration or respiratory distress. Musculoskeletal: Cervical back: Neck supple. Skin: General: [...] memory normal. Judgment: Judgment normal. ASSESSMENT/PLAN: 1. Chronic, continuous use of opioids - ICD9: 305.51, ICD10: F11.90 (primary diagnosis) We discussed her chronic pain and chronic use of opioids in depth. She is upset the dose was reduced from TID to BID but we discussed that TID is a very high amount of medication with a very high MMED and that she needed to be seen with a pain specialist in order for medication to continue to be prescribed at that dose. She verbalized understanding. I stressed she needs to schedule with pain management, given the contact info for 3 area providers and we can send her consult order to all of them if needed. We will see about getting her a x1 week refill of the BID dose since PCP is out of the office this week and then we can discuss with PCP when she is back Monday on if she wants to continue the BID dosing. WE will schedule Gutierrez for a 4 week follow up with me and then in another 4-6 weeks with PCP to follow up on pain. I also stressed to her that she needs to keep appointments in order to get this medication routinely as she has had a few no shows recently and she verbalized understanding of that too. - CONSULT TO PAIN MGT 2. Chronic midline low back pain, unspecified whether sciatica present - ICD9: 724.2, 338.29, ICD10: M54.50, G89.29 - CONSULT TO PAIN MGT 3. Fibromyalgia - ICD9: 729.1, ICD10: M79.7 - CONSULT TO PAIN MGT Portions of this note have been entered [...] Age-appropriate health preventative measures were discussed. Return in about 4 weeks (around 07/31/2023) for recheck on pain. PAULETTE Louis documented in this encounter [facility] 06-30-2023 Telephone encounter Note Appointment made for Monday with Shawn. patient verfied that she is willing to wait til Monday to be seen regarding controlled meds refills. PATIENT declined all appointments for today to be seen. Lia Valdez LPN [facility] Work Phone: 06-30-2023 Miscellaneous Notes Appointment made for Monday with Shawn. patient verfied that she is willing to wait til Monday to be seen regarding controlled meds refills. PATIENT declined all appointments for today to be seen. Lia Valdez LPN Please call back and let her know we cannot address this medication without her being seen. She really should be seen within the PCP triad since this is in regard to controlled substance use. We have limited appointment times open today. I looked at schedules, see if she can make it in for one of the openings on Esteban's schedule since she has appointments later in the morning. Patient calling to states she missed her appointment with Shawn Veronica on 06/20/23. Pt has appt with Shawn on Monday07/03/23. Patient calling to state she has a day and a half left of her Nucynta medication and asking if provider would reorder it for her? Pt states she takes this medication for her fibromyalgia and it is effective. Patient also asking if the medication can be increased to three times daily? Please call patient with update. [phone]. Thank you. documented in this encounter [facility] 06-30-2023 Telephone encounter Note Please call back and let her know we cannot address this medication without her being seen. She really should be seen within the PCP triad since this is in regard to controlled substance use. We have limited appointment times open today. I looked at schedules, see if she can make it in for one of the openings on Esteban's schedule since she has appointments later in the morning. [facility] 06-29-2023 Telephone encounter Note Patient calling to states she missed her appointment with Shawn Veronica on 06/20/23. Pt has appt with Shawn on Monday07/03/23. Patient calling to state she has a day and a half left of her Nucynta medication and asking if provider would reorder it for her? Pt states she takes this medication for her fibromyalgia and it is effective. Patient also asking if the medication can be increased to three times daily? Please call patient with update. [phone]. Thank you. [facility] 06-23-2023 Miscellaneous Notes Noted, agree this needs discussed with her appointment. Patient's calls and is very unhappy that patient's medication was decreased to BID. Tried to explain reasoning not understanding. Patient was crying in background due to being upset. gave phone to patient, explained to patient why she needs to set up appointment to be prescribed medication. Patient understanding and set up appointment with Shawn on 06/28/2023. Patient states that she is in a lot of pain and does not think twice a day will help. Explained to the patient that she needs to talk to Shawn about that at appointment. Patient understanding of this. FYI: Patient's brother in law had and per patient and was on 06/20/2023. Patient very upset at brother in laws . Quiana Jett RN Patient missed appointment with Shawn. RX had been written to last till her appointment plus a day (in other words till would need refill 06/20). Noted this request came from pharmacy instead of patient. She would need to follow up with us routinely per [facility] protocol for us to be able to fill this prescription, especially since dose was higher than 80MMED while waiting to be seen by pain management. She would have run out of medication by now if taking TID. I lowered the dose to 1 twice daily with a 1 week prescription so would be back down to 60MMED. I will be out of town, so follow up needs to be with Shawn. See if they have been able to make an appointment with pain management The following approved medication requests have been transmitted electronically. Requested Prescriptions Signed Prescriptions Disp Refills tapentadol (NUCYNTA) 75 mg tab 14 tablet 0 Sig: Take 1 tablet by mouth two times a day for 7 days. Authorizing Provider: TIFF PEARSON MD Patient has been identified by name and date of : yes Pharmacy phones for refill(s): Requested Prescriptions Pending Prescriptions Disp Refills tapentadol (NUCYNTA) 75 mg tab 48 tablet 0 Sig: Take 1 tablet by mouth three times a day for 16 days. Date of last office visit in primary care: 05/20/2023 - correct Date of next office visit in primary care: Visit date not found - correct [facility] is calling to request. Please advise. Thank you. Selene Garcia. documented in this encounter [facility] 06-23-2023 Miscellaneous Notes Patient has been identified by name and date of : Yes Pharmacy phones for refill(s): Requested Prescriptions Pending Prescriptions Disp Refills omeprazole (PRILOSEC) 20 mg capsule 90 capsule 3 Sig: Take 1 capsule by mouth once daily. Date of last office visit in primary care: 05/20/2023 Date of next office visit in primary care: Visit date not found Please advise. Thank you. Selene Garcia. documented in this encounter [facility] 05-23-2023 Miscellaneous Notes Faxed back to information below. Clare Haley Ma Signed Type of form: [place], Written Order Form received via fax When form is completed, Fax form to [phone] Form has been forwarded to Physician Desk: Dr. Mitch Haley Ma documented in this encounter [facility] 05-23-2023 Miscellaneous Notes Tried to call both patient and to let them know rx was sent. Left messages on both secure vm's. Nay Strange LPN ok Pt is at the pharmacy and advised there's no refills for pen needles. Asking if this can be done now so they do not have to drive back to pharmacy. Patient has been identified by name and date of : Yes - Mitch Patient phones for refill(s): Requested Prescriptions Pending Prescriptions Disp Refills insulin needles, DISPOSABLE, (PEN NEEDLE) 31 gauge x 5/16 150 Each 11 Sig: Use one needle per dose (Lantus and Humalog). 5 per day. Date of last office visit in primary care: 05/20/2023 Date of next office visit in primary care: 06/20/23 Please advise. Thank you. Nay Strange LPN. documented in this encounter [facility] 05-20-2023 Instructions Tiff Pearson MD - 05/20/2023 11:38 AM EDT Cerave itch relief. Aveeno. Need lotion or cream that will help dry skin to help with itching. Consider Coconut oil. TIPS FOR A BETTER NIGHT OF SLEEP BEFORE GETTING INTO BED: -Establish a regular routine for bedtime. -Create a positive sleep environment. -Relax before getting into bed. -Avoid alcohol, smoking, caffeine for at least a few hours before bedtime. -Do not go to bed unless you are sleepy. WHILE IN BED: -Turn your clock around (or cover it) and use your alarm if needed. - If you can't fall asleep in 20 minutes (based on your internal sense of time), get out of bed and do something relaxing or boring (reading, listening to music, etc). Return to bed only when sleepy. -Use your bed only for sleep and sex. IN THE MORNING AND DURING THE DAYTIME: -Wake up at the same time every morning, even on weekends. -Avoid naps during the day. -Avoid caffeinated beverages and food in the evening. -Exercise regularly but not within 4 hours of bedtime. Sleep Hygiene and Good Sleep Habits Establish a regular routine that includes going to bed and getting up at the same time every day, even on weekends. Maintaining a consistent sleep-wake cycle is the serrato to better health overall. Get an adequate amount of sleep every night. Determine the amount of sleep you need by keeping track of how long you sleep without using an alarm clock for a week. Maintain this personal sleep requirement. Go to bed when you are sleepy. If you have difficulty falling asleep or wake up shortly after going to sleep, leave the bedroom and read quietly or do some other relaxing activity. Avoid bright lights as this can cue your wake cycle. Develop sleep rituals before going to bed. Do the same things in the same order before going to bed to cue your body to slow down and relax. Avoid stress and worries at bedtime. Address tomorrow's activities, concerns, or distractions earlier in the day. Certain activities, such as listening to soft music, reading, or taking a warm bath, can help you wind down. Use your bed for sleeping and sex only. Often, doing other activities in bed like watching TV, paying bills, or working only serve to initiate worries and concerns. Let your mind associate the bed with sleeping, relaxing, and pleasure. Avoid heavy meals late in the evening; similarly, avoid going to bed hungry. A light snack, especially dairy foods, can help you sleep. Reduce your intake of caffeine and nicotine 4-6 hours before going to sleep. Stimulants interfere with your ability to fall asleep and progress into deep sleep. 200mg caffeine (a large [employer] coffee) taken at 8 AM will impair the sleep architecture that night. Avoid alcohol 4-6 hours before bedtime. As a depressant that slows brain activity, alcohol may initially make you tired, but you will end up having fragmented sleep. In addition, being tired intensifies the effects of alcohol. Alcohol also aggravates snoring and sleep apnea particularly in men. Exercise regularly. Regular exercise, even for 20 minutes, 3 times a week, promotes deep sleep. Don't nap for more than 30 minutes or after 3 PM. Avoiding naps all together will ensure that you are tired at night. Longer naps disrupt the body's ability to stay asleep. Maintain a dark, quiet room to sleep in at a temperature with which you are comfortable. Use sleeping aids conservatively, and avoid using them for more than one or two nights per month. Avoid sleeping pills altogether if you have obstructive sleep apnea because it can be a deadly combination. documented in this encounter [facility] 05-20-2023 History of Presen t illness Narrative This note was created using [employer]. Subjective Gutierrez Hobson is a 62 year old female. Patient presents with: Recheck: Medication follow up; Nucynta, does not want to lower dose SUBJECTIVE: Gutierrez Hobson is a 62 year old year old lady here today for follow up appointment for review of medical conditions. Still waiting for follow up appointment with pain management. Already scheduled. Will see them next week. Noted afraid to lower dose to 50mg. Reviewed that pain not great but better than with prior meds given. Insomnia with trouble sleeping. 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 02/05/2010 Diabetes ([facility]) 1999 On insulin 2015 Dyslipidemia Encephalopathy in [...] in limb 02/05/2010 Paranoid schizophrenia, chronic condition ([facility]) 1985 Peptic ulcer, unspecified site, unspecified as [...] follow daily CBC and coags S/P colostomy ([facility]) SBO (small bowel obstruction) ([facility]) 09/11/2016 Skin lesion 03/09/2015 Skin sloughing on LEs with blisters, indeterminate purple lesions on back -> now improving Per Dermatology consult: linear erosions are most likely irritant contact dermatitis or pressure induced erosions. In addition there are small edema bullae on the abdominal wall Both require gentle wound care and emollients such as aquaphor or petroleum jelly -- monitor Tracheostomy in place ([facility]) Placed 2015 after prolonged respiratory failure, unable to liberate from vent. 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 Do not start before May 17, 2023. hyoscyamine sublingual (LEVSIN SL) 0.125 mg Dissolve 2 tablets under the tongue every 6 hours as needed. fluticasone-salmeterol (ADVAIR DISKUS) 100-50 mcg/dose inhaler Inhale 1 Puff as instructed two times a day. Rinse mouth out after use with water. hyoscyamine sublingual (LEVSIN SL) 0.125 mg Dissolve 1 tablet under the tongue every 6 hours as needed (epigastric discomfort). magnesium oxide (MAG-OX) 400 mg (241.3 mg magnesium) tablet Take 1 tablet by mouth once daily. hydrocortisone 2.5 % cream Apply 1 application to affected area two times a day as needed. Location: neck (reaction to tape adhesive) May also use for poison tania. Use up to 14 days per episode of rash. nystatin (MYCOSTATIN) powder Apply 1 application to affected area four times a day as needed. lidocaine (LMX) 4 % cream Apply to affected area four times a day as needed (for painful sore in rectal area as directed). melatonin 10 mg tab Take 1 tablet by mouth at bedtime as needed for insomnia. pravastatin (PRAVACHOL) 40 mg tablet Take 1 tablet by mouth once daily. Ostomy Supplies [facility] 1. Convatec Flanges Ref# [id number] 10 to a box, 3 boxes 2. Allkare Protective Barrier Wipes Ref # [id number] 1 box = 50 wipes, 3 boxes 3. Convate Adhesive Glue Ref # [id number] 2 oz tube, 3 tubes 4. Convatec Stoma Adhesive Powder Ref # [id number] 1 oz bottle, 3 bottles 5. Convatec Stoma Bags Ref # [id number] 10 in a box, 3 boxes benzonatate (TESSALON PERLE) 100 mg capsule Take 2 capsules by mouth three times a day as needed. omeprazole (PRILOSEC) 20 mg capsule TAKE ONE CAPSULE BY MOUTH EVERY DAY 30 MINUTES BEFORE breakfast gabapentin (NEURONTIN) 300 mg capsule blood sugar diagnostic (BLOOD GLUCOSE TEST) test strip Test blood sugar(s) 4 times daily and as needed as directed. Dx: Type 2 DM - Uncontrolled E11.65 Insulin: Yes ketoconazole (NIZORAL) 2 % cream Apply 1 application to affected area once daily. as needed triamcinolone acetonide (KENALOG) 0.1 % cream Apply [...] g to affected area four times daily. fluticasone (FLONASE) 50 mcg/actuation nasal spray [...] directed for treatment of asthma). Nebulizer Accessories [facility] Needs new nebulizer mask, hose and supplies. [...] - Uncontrolled E11.65 Insulin: Yes [facility] new nebulizer mask, hose and supplies. [...] No current facility-administered medications for this visit. Review of Systems Objective BP 114/66 Pulse 94 Resp 18 Wt 79.2 kg (174 lb 8 oz) SpO2 96% BMI 28.17 kg/m Physical Exam Constitutional: Appearance: Normal appearance. HENT: Head: Normocephalic. Eyes: Conjunctiva/sclera: Conjunctivae normal. Cardiovascular: Rate and Rhythm: Normal rate and regular rhythm. Heart sounds: Normal heart sounds. Pulmonary: Effort: Pulmonary effort is normal. Breath sounds: Normal breath sounds. Musculoskeletal: Right lower leg: No edema. Left lower leg: No edema. Skin: General: Skin is warm and dry. Neurological: General: No focal deficit present. Mental Status: She is alert and oriented to person, place, and time. Psychiatric: Mood and Affect: Mood normal. Behavior: Behavior normal. Thought Content: Thought content normal. Judgment: Judgment normal. Back: scratching and has crusts scattered on upper back mostly on left side and upper arms. Assessment and Plan Encounter Diagnosis ICD-10-CM 1. Contact dermatitis due to adhesive bandage L23.1 triamcinolone acetonide (KENALOG) 0.1 % cream hydrocortisone 2.5 % cream Avoiding adhesives that trigger contact dermatitis. Treat with topical steroid as needed 2. Diabetic peripheral neuropathy associated with type 2 diabetes mellitus (HCC) E11.42 glimepiride (AMARYL) 4 mg tablet HGB A1C COMP METABOLIC PANEL CBC LIPID PANEL BASIC ALBUMIN/CREAT RATIO RND UR Continue present med management 3. Chronic, continuous use of opioids F11.90 Discussed need to follow with pain management if they believe she needs to stay on high dose opiates>80MMED 4. Mixed hyperlipidemia E78.2 LIPID PANEL BASIC Continue present management 5. Encounter for long-term current use of medication Z79.899 HGB A1C COMP METABOLIC PANEL CBC LIPID PANEL BASIC Above issues addressed with patient. Patient involved in shared decision making for management of medical issues. History and medications reviewed. Epic updated as needed Refills and/or prescriptions taken care of and meds adjusted as indicated after reviewed history, exam and labs. Health Maintenance reviewed. Updated record and/or ordered tests as recorded. Encouraged on efforts at healthy diet and regular exercise and adequate sleep. Tiff Pearson MD documented in this encounter [facility] 05-17-2023 Miscellaneous Notes phoned in to check on refill. Notified rx was sent to pharmacy. Looks like patient has titrated down the dose since has lasted past Monday. Lowered dose to twice daily for this 14 day RX so will last till pain management appointment and a few days after while pain management does their evaluation and decides whether they would continue prescribing the medication. The following approved medication requests have been transmitted electronically. Requested Prescriptions Signed Prescriptions Disp Refills tapentadol (NUCYNTA) 75 mg tab 28 tablet 0 Sig: Take 1 tablet by mouth two times a day for 14 days. Do not start before May 17, 2023. Authorizing Provider: TIFF PEARSON MD Spoke to pt and her in regards to TE 05/05/23. Pt and advised of pcp message in TE. reports that they are trying to get an appt with Dr. Ross , pain management. Order was faxed to Dr. Ross's office @ [phone]. Pt reports she is still trying to get Dr. Trevizo's office to send pt's records to Dr. Ross. Pt reports that she has enough tabs of Nucynta 75 mg for today and two tabs for tomorrow. Pt is asking if provider can send rx to pharmacy for this. Pt has an appt with pcp 05/19 to discuss transition of medication dose. Please review and advise. Patient has been identified by name and date of : Yes Requested Prescriptions Pending Prescriptions Disp Refills tapentadol (NUCYNTA) 75 mg tab 42 tablet 0 Sig: Take 1 tablet by mouth three times a day for 14 days. RX INSTRUCTIONS: Call pt with provider message. Nay Strange LPN documented in this encounter [facility] 05-12-2023 History and physi dejon note Note Date/Time May 11, 2023 4:09pm [facility] [address] [place] [id number] H&P Exam - Wound Care 05/11/23 1609 MR#: [id number] Acct: [id number] Name: GUTIERREZ HOBSON ALL Rep #:[id number] : 1960 62 From: Vianey RUVALCABA PCP: Dr. Tiff Pearson MD Status:RE G RCR Location: History of Present Illness Date of Service: 05/11/23 Chief Complaint: Abdominal wound adjacent to ostomy History of Wound: Gutierrez Kern is a very pleasant 62-year-old female who presents to the wound care center today for evaluation and management of an abdominal wound. She is accompanied to her appointment today by her whoassists with her wound care. She has a superficial wound on her abdomen adjacent to her ostomy. The wound is underneath the adhesive of her ostomy appliance when this is in place. She reports it has been there for the last 4 weeks or so. It is also contributing to leaking from her ostomy appliance. It has been difficult for them to manage at home as any dressings they have been applying affects the seal of her ostomy. She has been applying nystatin powder to this area but has not noticed any improvement. She denies any redness, focalswelling, drainage from the wound itself. No recent nausea, vomiting, fevers, chills. She also tells us about what she thinks is a perianal wound. She reports this has been ongoing for a very long time and is quite painful. 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 She was recently on a round of antibiotics for this through her PCP. She does have a very extensive surgical history including initially bowel resection and ostomy creation secondary to colon cancer resection and then followed by a series of complications over the years including bowel obstruction, hernias, peptic ulcers requiring further abdominal surgeries. By report, she has very extensive scar tissue which would make any future surgical interventions exceedingly difficult. Her medical history is otherwise significant for COPD, diabetes, paranoid schizophrenia. [facility] Medical History Anxiety Anxiety and depression Asthma Bradycardia Colon cancer COPD (chronic obstructive pulmonary disease) Depression Diabetes Former smoker GERD (gastroesophageal reflux disease) Hyperlipidemia Hypertension Migraines Obesity (BMI 30.0-34.9) Paranoid schizophrenia Schizophrenia Secondary pulmonary arterial hypertension Tracheitis Type I diabetes mellitus Home Medications topiramate 100 mg tablet 100 mg PO BID 03/01/17 [History Last Taken 12/06/18 09:00] hydrocortisone 2.5 % topical cream 1 applic topical DAILY 30 days ##30 10/31/17 [History Last Taken Unknown] insulin glargine 100 unit/mL (3 mL) subcutaneous pen (Lantus Solostar U-100 Insulin) 12 unit subcut QHS 10/31/17 [History Last Taken Unknown] thiothixene 2 mg capsule 2 mg PO DAILY 30 days ##30 10/31/17 [History Last Taken 12/04/17 05:30] trazodone 100 mg tablet 300 mg PO QHS 30 days ##90 10/31/17 [History Last Taken Unknown] glimepiride 4 mg tablet 4 mg PO DAILY 30 days ##30 11/01/17 [History Last Taken Unknown] amitriptyline 25 mg tablet 25 mg PO QHS 11/28/17 [History Last Taken Unknown] melatonin 5 mg-pyridoxine (vitamin B6) 1 mg tablet (Melatonin (with B6)) 2 ea POQHS 11/28/17 [History Last Taken Unknown] omeprazole 20 mg capsule,delayed release 20 mg PO DAILY 12/04/17 [History Last Taken 12/06/18 09:00] cariprazine 3 mg capsule 3 mg PO QHS mental status 12/04/18 [History Last Taken Unknown] fluphenazine HCl 1 mg tablet 1 mg PO QHS 12/04/18 [History Last Taken Unknown] guaifenesin 600 mg tablet, extended release 12 hr 600 mg PO TID 12/04/18 [History Last Taken 12/06/18 09:00] pravastatin 40 mg tablet 40 mg PO DAILY 12/04/18 [History Last Taken Unknown] tapentadol 75 mg tablet 75 mg PO TID pain 12/04/18 [History Last Taken 12/06/18 09:00] magnesium oxide 400 mg (241.3 mg magnesium) tablet 400 mg PO DAILY 04/16/19 [History Last Taken Unknown] hydrocortisone 2.5 % topical cream with perineal applicator 1 applic TN QHS PRN hemorrhoids #30 grams 05/17/21 [Rx Last Taken Unknown] hyoscyamine sulfate 0.125 mg sublingual tablet 0.25 mg (2 x 0.125 mg) PO Q6H PRNepigastric discomfort #12 tabs 04/08/23 [Rx Last Taken Unknown] Allergy/AdvReac Type Severity Reaction Status Date / Time azithromycin Allergy Rash Verified 04/08/23 17:39 Cephalosporins Allergy Rash Verified 04/08/23 17:39 goss [cherries] Allergy Angioedema Verified 04/08/23 17:39 codeine Allergy Rash Verified 04/08/23 17:39 diclofenac [Diclofenac] Allergy Rash Verified 04/08/23 17:39 hydrocodone bitartrate Allergy Rash Verified 04/08/23 17:39 [From Vicodin] hydromorphone HCl Allergy Rash Verified 04/08/23 17:39 [From Dilaudid] lemon Allergy Angioedema Verified 04/08/23 17:39 Penicillins Allergy Anaphylaxis Verified 04/08/23 17:39 Sulfa (Sulfonamide Allergy Rash Verified 04/08/23 17:39 Antibiotics) pear AdvReac NEEDS Verified 04/08/23 17:39 FOLLOW-UP soap AdvReac NEEDS Verified 04/08/23 17:39 FOLLOW-UP Family History Father Heart disease Other Thyroid disorder Surgical History Colostomy in place History of appendectomy History of colectomy History of partial colectomy Presence of cardiac pacemaker (09/28/16) Tracheostomy in place Social History household members: spouse Smoking Status: Never smoker substance use type: does not use and marijuana Vital Signs Vital Signs Vital Signs: 05/11/23 13:58 Temperature 97.6 F L Temperature Source Temporal Pulse Rate 91 Respiratory Rate 18 Blood Pressure 139/56 H Blood Pressure Mean 83 Blood Pressure Source Monitor Blood Pressure Position Semi-Fowlers Blood Pressure Location Left Arm Physical Exam Const alert, oriented x3 and no apparent distress General Appearance: cooperative and comfortable HEENT normocephalic, head/scalp atraumatic, hearing grossly normal bilaterally, external ears normal and external nose normal Eyes EOMs intact bilaterally General Eye: normal appearance of both eyes Neck full ROM General: normal visual inspection Resp normal respiratory effort, normal air movement and No no retractions Effort and Inspection: able to speak in complete sentences; Negative for labored, stridor or audible wheezes Cardio regular rate and regular rhythm Skin Wounds: wounds noted Wound Narrative: She has a small, wound to the upper abdominal wall adjacent to her ostomy. Thiswound is underneath the ostomy appliance when in place but not directly associated to the ostomy itself. Subcutaneous in depth with tracking at 3:00 and undermining from 12-2. There is no significant slough appreciated. There is no surrounding erythema, warmth, focal swelling. No drainage is appreciated. Did also examine the perianal area. 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 There was surrounding induration but no fluctuance, warmth, significant erythema. There is some skin discoloration but no apparent skin breakdown or wound. Neuro oriented x3, CN's II-XII intact bilaterally, moves all extremities, no focal motor deficits and no sensory deficits noted Speech: speech normal Psych mental status grossly normal Appearance: grossly normal Attitude: calm and engaged Activity / Motor Behavior: appropriate eye contact Speech: normal speech Mood & Affect: euthymic mood Judgement: judgement good Debridement Note Debridement Note Wound debrided: Upper abdominal wound No debridement was completed: No debridement was completed today Post-Debridement Measurements and Additional Note: Post-Debridement Measurements/Treatment - Nurse 1 - General Ulcer Assessment Start: 05/11/23 13:46 Freq: Status: Active Protocol: YOBANY Activity Type Activity Date Activity User E-sign Co-sign Detail Recorded Client Recorded Date Recorded By Document 05/11/23 13:58 RB Desktop 05/11/23 14:01 RB Edit Result 05/11/23 13:58 RB (1) [id number] 05/11/23 14:20 RB (1) Preferred language => [place] [employer] Analyst Required => No Able to Read => No Able to Write => No Communication Tools => None Caregiver Communication Skills => No Impairment Impairment Right Hearing Abillity => Normal Left Hearing Abillity => Normal Visual Assistive Devices => Glasses Preferences => Verbal,Written, => Demonstration Barriers to Learning => None Readiness To Learn => Good Willingness to Engage in Self Management => Med Activies Readiness to Engage in Self Management => Med Activities Anxiety Level => Anxious Cooperation => Cooperative Perception => Coherent Interest in Health Problem => Asks Questions Education Importance => Acknowledges Need Does Patient Smoke tobacco or other => No substances Smoking Status => Never smoker Recent Decline in Ability to Perform => Denies Any => Declines Assistive Device With Patient => No 05/11/23 13:58 - Today's Visit Information Type of service Initial Visit Arrival Mode Ambulatory Transfer Assistance None Patient Identification Verified (Name & Yes ) Patient Requires Transmission-Based No Precautions Vital Signs Temperature (97.8 F-99.1 F) 97.6 F L Temperature Source Temporal Pulse Rate (60-100) 91 Pulse Location Monitor Respiratory Rate (12-18) 18 Respiratory rate source Observation Blood Pressure (90/60-120/80) 139/56 H Blood Pressure Mean 83 Source Monitor Position Semi-Fowlers Blood Pressure Location Left Arm History Since Last Visit- (Skip if this is Patient's initial visit) Have you changed medications since your No last visit? Any new allergies or adverse reactions No Had a fall/change in ADL's that may No increase risk of falls Signs or symptoms of abuse and/or No neglect since last visit Have you been in the hospital since your No last visit? Has dressing in place as prescribed Yes Has compression in place as prescribed No Has offloadiing in place as prescribed No Experienced any changes in pain level or No management Pain Scale: 0-10 Numeric Is Patient Pain Free? Yes Communication Assessment Preferred language Central African Concrete Analyst Required No Able to Read No Able to Write No Communication Tools None Caregiver Communication Skills No Impairment Impairment Right Hearing Abillity Normal Left Hearing Abillity Normal Visual Assistive Devices Glasses Teaching Assessment Preferences Verbal,Written, Demonstration Barriers to Learning None Readiness To Learn Good Willingness to Engage in Self Management Med Activies Readiness to Engage in Self Management Med Activities Anxiety Level Anxious Cooperation Cooperative Perception Coherent Interest in Health Problem Asks Questions Education Importance Acknowledges Need Does Patient Smoke tobacco or other No substances Smoking Status Never smoker Functional Assessment Recent Decline in Ability to Perform Denies Any Declines Assistive Device With Patient No WC - Nurse 1 - General Ulcer Measurement Start: 05/11/23 13:46 Freq: Status: Active Protocol: Activity Type Activity Date Activity User E-sign Co-sign Detail Recorded Client Recorded Date Recorded By Document 05/11/23 13:58 Desktop 05/11/23 14:01 05/11/23 13:58 Wound Center Nurse 1 1. R abd upper quad -Combined with other wound No -Current Size (cm) - Length 0.6 -Current Size (cm) - Width 1.7 -Current Size (cm) - Depth 0.5 -Total Square Cm 1.02 -Photo Taken Yes -Tunneling Yes -Tunneling Position (O'clock) 3 -Tunneling Distance (cm) 1.5 -Undermining/Tunneling No -Circular Undermining No -Exudate Amt Medium -Exudate Type Serosanguineous -Wound Margin Distinct, Outline Attached -Granulation Amt Medium (34-66%) -Granulation Quality Arley -Slough/Fibrin Yes -Necrosis Amt Medium (34-66%) -Necrotic Tissue Type Adherent Slough -Structure Exposed N/A -Texture (Nuvia-wound Skin Appearance) Assessed -Moisture (Nuvia-wound Skin Appearance) Assessed -Color (Nuvia-wound Skin Appearance) Assessed -Temperature (Nuvia-wound Skin No Abnormality Appearance) (Pt Warm) -Tenderness on Palpation (Nuvia-wound No Skin Appearance) -Ulcer Cleansing Wound Cleanser -Foul Odor after Cleansing No -Anesthetic Used 5% Lidocaine Gel WC - Nurse 2 - General Ulcer CM Notes Start: 05/11/23 13:46 Freq: Status: Active Protocol: Activity Type Activity Date Activity User E-sign Co-sign Detail Recorded Client Recorded Date Recorded By Document 05/11/23 14:04 GM Desktop 05/11/23 14:21 05/11/23 14:04 Wound Center Nurse 2 #3 Perianal -Time 14:19 -Correct Patient Yes -Correct Side, Site, Position Yes -Wound Comment(s) Area is red and sore, there is a fistula that is considered non-operable. Recommend patient follow up with surgeon . 1. R abd upper quad -Time 14:05 -Correct Patient Yes -Correct Side, Site, Position Yes -Wound/Ulcer Outcome Not Healed -Ulcer Cleansing Rinsed/ Irrigated with Saline -Foul Odor after Cleansing No -Wound Comment(s) wound measured and dressed, no debridement Pain Scale: 0-10 Numeric Is Patient Pain Free? Yes - Nurse 3 - General Ulcer D/C NN Start: 05/11/23 13:46 Freq: Status: Active Protocol: Activity Type Activity Date Activity User E-sign Co-sign Detail Recorded Client Recorded Date Recorded By Document 05/11/23 14:24 GM Desktop 05/11/23 14:25 GM 05/11/23 14:24 Wound Care Center Nurse 3 1. R abd upper quad -Ulcer Cleansing Not Cleansed -Foul Odor after Cleansing No -Primary Dressing Applied Aquacel AG 4x4 -Aquacel AG 4x4 1 Pain Scale: 0-10 Numeric Is Patient Pain Free? Yes WC - Visit Discharge Ambulatory Status Ambulatory Transportation Private Auto Accompanied by Medication Reconcilliation completed & Yes provided to patient/care provider Clinical Summary of Care Provided Yes Charges/Coding Visit Charges Office Visits / Consults: 86360 OV L3 New 30min Assessment/Plan Assessment/Plan (1) Non-pressure chronic ulcer of skin of other sites with fat layer exposed: CODE(S): L98.492 - Non-pressure chronic ulcer of skin of other sites with fat layer exposed PLAN: Patient has a chronic wound to her upper abdomen which appears secondary to excess moisture associated with her ostomy. No debridement was performed today. Sera Sanabria (wound and ostomy nurse from the hospital) was also present as she is familiar with Gutierrez. She assisted with patient's dressings and ostomy, her recommendations and help are very much appreciated. Will apply Aquacel Ag to the wound bed and pack in to the tunneling/undermining.Will apply ComFeel Clear over top which will protect the wound from moisture andstill allow for a good seal on the ostomy device. Will change dressings when theostomy is changed, approx every 3 days. Gently cleanse the area and pat to dry prior to dressing changes. Her was present for wound care instructions. There was no wound identified in the perianal area of concern, only the known fistula. Unfortunately, as long as the fistula is present there really is not much to do to improve the discomfort in this area. I do advise the use of a barrier cream such as Desitin, Triad Cream, Calmoseptine, or other to protect the skin from the associated moisture/drainage and try to prevent skin breakdown. It has been a while since she last saw her colorectal surgeon but shereports they did not seem to feel surgical intervention was possible given her extensive prior history. She may consider reaching back out to them now to confirm there are no feasible surgical treatment options or seek a second opinion. Otherwise, continue to pad the area, manage drainage as best as possible, and protect the skin. She will return to the wound center in 2 weeks or sooner as needed. They understand to call if they do not receive supplies or if they have any questions/concerns. 05/12/23 6770 <Electronically signed by Vianey RUVALCABA> Cosigner Signature (if applicable): CC: ~ Signed [facility] Work Phone: 1(124) 319-441603-01-2024 Miscellaneous Notes* Addendum Note - Tiff Pearson MD - 05/05/2023 4:12 PM ESTAddended by: TIFF PEARSON on: 05/05/2023 04:12 PM Modules accepted: Orders * Telephone Encounter - Tiff Pearson MD - 05/05/2023 4:05 PM EST 1) Consult order filed. 2) Verify if they need to have records sent from Dr. Trevizo to Dr. Ross (not sure of legal issues). Send if allowed 3) Noted that diagnosis for chronic pain meds they gave when saw Fernanda JulissashelliDAVIDE, was fibromyalgia, so would let them know that it would not be unusual for pain management to question why she is olga opiate. Verify if other pain is treated with Nucynta so can add to to pain management consult order. All over body pain is not a specific diagnosis or a reason for opiates. I would recommend titrating the dose down from 75 mg three times daily to either 75 mg twice daily or 50 mg three times daily since I am not able to continue her current dose which is equivalent to 90mg morphine per day [facility]. Can discuss at an appointment this month unless able to see pain management soon to take over the current dose. * Telephone Encounter - Rama Burroughs RN - 05/05/2023 2:54 PM EST Patient returns call with fax number to Dr. Ross ([phone]). Reviewed OV notes from 05/04/2023, patient is not pleased with that providers recommendation and wants another pain management referral sent to Dr. Ross. took phone from patient and asked when to expect referral to be sent to Dr. Ross and asked if documentation from Dr. Trevizo would also be sent. Rama Burroughs RN * Telephone Encounter - Esteban Gabriel APRN.CNS - 05/05/2023 2:35 PM EST See office note Dr Govea [facility] pain management , notes she was discharged from previous pain management. Noted high risk patient per opioid screen. Offered alternate care for pain and left follow up to patient. * Telephone Encounter - Cameron Daley RN - 05/05/2023 2:13 PM EST Pt asking pcp to please a new consult for her to see pain management, Dr. Ross, in [place]. Pt will call back with the fax number. Patient reports she was seeing Dr. Trevizo but he doesn't want to see her anymore. [facility] NoteHNO ID: [id number] Author: FERNANDA ROSENBAUM APRN.DAVIDE Service: ? Author Type: Nurse Practitioner Type: Progress Notes Filed: 05/04/2023 16:43 Note Text: [facility] Today's Date: 05/04/2023 Name: Gutierrez Hobson : 1960 Purpose: New Patient Consultation Chief complaint: fibromyalgia Referring Clinician: Self Pertinent Past Medical History: DM 2, HLD, pacemaker, COPD, ileostomy,colon polyps Pertinent Past Surgeries: multiple bowel surgeries History of Present Illness (HPI): 05/04/2023 - Initial HPI (Obtained by Fernanda Rosenbaum CNP). DURATION AND ONSET: The pain complaint has been present for approximately >20. The pain had a gradual onset. The mechanism of injury is unknown. RED FLAG SYMPTOMS: ever having cancer (colon). PAIN DESCRIPTION: Timing: Constant Character: Aching, Burning, Stabbing Primary Location: entire body Radiation: none Exacerbating factors: Everything Relieving factors: Medications Interferes with: physical activity, cooking, household cleaning, and reaching for shelves This appointment started out with the explaining that his is in constant pain. He stated the patient has been taking Nucynta for years to manage her pain. States she was seeing another pain management doctor he was giving it to her until recently when she was kicked out. States that she was discharged for having methamphetamines heroin and LSD in her system. Patient states she did go get her blood tested and urine tested at 2 other clinics and she came back clean but the doctor would not reconsider his discharge. Patient's pain was not discussed until after the opioid discussion was had. Patient states her pain is from fibromyalgia that her pain is an aching in the entire body. She has not been to physical therapy in years. Patient has not been on Lyrica before has been on gabapentin but had a negative reaction. Patient is not currently on a muscle relaxer. There are no recent x-rays of her spine. Patient states she does not want to do injections if they do not help with her pain. Patient is here to see if this practice will start opioid therapy. Current Pain Medications: Neuropathics: NSAIDS: Muscle Relaxants: Topicals: Lidocaine cream. Other Prescription or OTC Pain Medications: Opioids (when applicable): nucynta Greenlight Questionnaire GREENLIGHT Completed Date 05/04/2023 Opioid Risk Tool Opiod Risk Tool Date Completed 05/04/2023 Comments High Risk 10 THOMAS-7 Anxiety Score 0 Completed Date 05/04/2023 PHQ9P Score 0 Completed Date 05/04/2023 Anti-depressants or Mood-Stabilizers: None Anti-Coagulants: None Therapies Attended (Current or Most Recent): No Current Therapies Treatment History: PAIN PROCEDURES: DATE PROCEDURE IMPROVEMENT To date, no interventional pain management procedures performed at this practice. MEDICATIONS Taken TO DATE (for the chief complaint(s)): Neuropathics: Neurontin (Gabapentin) no relief NSAIDS: Voltaren (Diclofenac)No relief Muscle Relaxants: None Topicals: Lidocaine (Gel, Cream or Ointment) No relief Other Prescription or OTC Pain Medications: None Opioids:Nucynta, takes the edge off. Data Reviewed Today: Allergies: ALLERGIES Allergen Reactions Goss Other: See Comments [...] Rash Vicodin [Hydrocodon* Rash Zithromax [Azithrom* Rash Social History Tobacco Use Smoking status: Former Packs/day: 2.00 Years: 45.00 Additional pack years: 0.00 Total pack years: 90.00 Types: Cigarettes Start date: 1965 Quit date: 08/27/2010 Years since quittin.6 Smokeless tobacco: Current Tobacco comments: Medical Vaping Use Vaping Use: Never used Substance Use Topics Alcohol use: No Drug use: Not Currently Types: Marijuana Comment: Cocaine abuse, quit before 1999. Medical Marijuana INTAKE PAIN ASSESSMENT 04/13/2023 05/04/2023 Are you having pain associated with your visit today? Yes, Provider notified Yes, Provider notified Pain Scales Verbal (Numeric Rating or Visual Analog Scale) Verbal (Numeric Rating or Visual Analog Scale) Pain Level - 10 Pain Location Chest Back-Lower Description - Aching;Radiating;Stabbing;Sharp;Dull Duration Amount of Time - - Duration U (more content not included)...[facility]02-29-2024 NoteHNO ID: [id number] Author: WALI MITCHELL LPN Service: ? Author Type: LICENSED NURSE Type: Progress Notes Filed: 05/04/2023 16:43 Note Text: Review of Systems Constitutional: Positive for activity change and chills. Negative for unexpected weight change. Gastrointestinal: Negative for bowel retention or incontinence Genitourinary: Negative for difficulty urinating. Negative for bladder retention or incontinence Musculoskeletal: Positive for arthralgias, back pain, gait problem, joint swelling, myalgias, neck pain and neck stiffness. Neurological: Positive for weakness and headaches. Negative for numbness. Psychiatric/Behavioral: Positive for dysphoric mood and sleep disturbance. Negative for suicidal ideas. The patient is nervous/anxious.[facility]02-29-[facility] History of Present illness Narrative* Fernanda Rosenbaum APRN.DAVIDE - 05/04/2023 2:30 PM EST Images from the original note were not included. [facility] Today's Date: 05/04/2023 Name: Gutierrez Hobson : 1960 Purpose: New Patient Consultation Chief complaint: fibromyalgia Referring Clinician: Self Pertinent Past Medical History: DM 2, HLD, pacemaker, COPD, ileostomy,colon polyps Pertinent Past Surgeries: multiple bowel surgeries History of Present Illness (HPI): 05/04/2023 - Initial HPI (Obtained by Fernanda Rosenbaum CNP). DURATION AND ONSET: The pain complaint has been present for approximately >20. The pain had a gradual onset. The mechanism of injury is unknown. RED FLAG SYMPTOMS: ever having cancer (colon). PAIN DESCRIPTION: Timing: Constant Character: Aching, Burning, Stabbing Primary Location: entire body Radiation: none Exacerbating factors: Everything Relieving factors: Medications Interferes with: physical activity, cooking, household cleaning, and reaching for shelves This appointment started out with the explaining that his is in constant pain. He stated the patient has been taking Nucynta for years to manage her pain. States she was seeing another pain management doctor he was giving it to her until recently when she was kicked out. States that she was discharged for having methamphetamines heroin and LSD in her system. Patient states she did goget her blood tested and urine tested at 2 other clinics and she came back clean but the doctor would not reconsider his discharge. Patient's pain was not discussed until after the opioid discussion was had. Patient states her painis from fibromyalgia that her pain is an aching in the entire body. She has not been to physical therapy in years. Patient has not been on Lyrica before has been on gabapentin but had a negative reaction. Patient is not currently on a muscle relaxer. There are no recent x-rays of her spine. Patientstates she does not want to do injections if they do not help with her pain. Patient is here to seeif this practice will start opioid therapy. Current Pain Medications: Neuropathics: NSAIDS: Muscle Relaxants: Topicals: Lidocaine cream. Other Prescription or OTC Pain Medications: Opioids (when applicable): nucynta Greenlight Questionnaire GREENLIGHT Completed Date 05/04/2023 Opioid Risk Tool Opiod Risk Tool Date Completed 05/04/2023 Comments High Risk 10 THOMAS-7 Anxiety Score 0 Completed Date 05/04/2023 PHQ9P Score 0 Completed Date 05/04/2023 Anti-depressants or Mood-Stabilizers: None Anti-Coagulants: None Therapies Attended (Current or Most Recent): No Current Therapies Treatment History: PAIN PROCEDURES: DATE PROCEDURE IMPROVEMENT To date, no interventional pain management procedures performed at this practice. MEDICATIONS Taken TO DATE (for the chief complaint(s)): Neuropathics: Neurontin (Gabapentin) no relief NSAIDS: Voltaren (Diclofenac)No relief Muscle Relaxants: None Topicals: Lidocaine (Gel, Cream or Ointment) No relief Other Prescription or OTC Pain Medications: None Opioids:Nucynta, takes the edge off. Data Reviewed Today: Allergies: ALLERGIES Allergen Reactions Goss Other: See Comments [...] Rash Vicodin [Hydrocodon* Rash Zithromax [Azithrom* Rash Social History Tobacco Use Smoking status: Former Packs/day: 2.00 Years: 45.00 Additional pack years: 0.00 Total pack years: 90.00 Types: Cigarettes Start date: 1965 Quit date: 08/27/2010 Years since quittin.6 Smokeless tobacco: Current Tobacco comments: Medical Vaping Use Vaping Use: Never used Substance Use Topics Alcohol use: No Drug use: Not Currently Types: Marijuana Comment: Cocaine abuse, quit before 1999. Medical Marijuana INTAKE PAIN ASSESSMENT 04/13/2023 05/04/2023 Are you having pain associated with your visit today? Yes, Provider notified Yes, Provider notified Pain Scales Verbal (Numeric Rating or Visual Analog Scale) Verbal (Numeric Rating or Visual Analog Scale) Pain Level - 10 Pain Location Chest Back-Lower Description - Aching;Radiating;Stabbing;Sharp;Dull Duration Amount of Time - - Duration Units - Years Frequency - Continuous Intervention/Comfort measure - Medication;Reposition;Relaxation Comments - - Pain Assessment - - Compliance: PDMP website checked and validated on 05/04/2023 by Fernanda Rosenbaum APRN.BASKET PATCHER All prescriptions have been APPROPRIATELY filled. No suspicious activity was identified. [facility] 05/04/2023 Questionnaire GREENLIGHT Completed Date 05/04/2023 Questionnaire Opiod Risk Tool Completed Date 05/04/2023 Comments High Risk 10 (All drug screens are appropriate unless indicated otherwise) Risk Assessment: THOMAS-7: THOMAS - 7 SCORES 05/04/2023 THOMAS-7 Score 0 (0-4) minimal anxiety, (5-9) mild anxiety, (10-14) moderate anxiety, (15-21) severe anxiety PHQ-9: PHQ-9 01/24/2018 05/04/2023 Score 15 0 (0-4) minimal depression, (5-9) mild depression, (10-14) moderate depression, (15-19) moderately severe depression, (20-27) severe depression Greenlight Questionnaire GREENLIGHT Completed Date 05/04/2023 Opioid Risk Tool Opiod Risk Tool Date Completed 05/04/2023 Comments High Risk 10 THOMAS-7 Anxiety Score 0 Completed Date 05/04/2023 PHQ9P Score 0 Completed Date 05/04/2023 Diagnostic Studies: Relevant Imaging: MRI Spine Report No resulted procedures found. Electrodiagnostic Study (EMG): None Recent Labs: Creatinine Date Value Ref Range Status 08/05/2021 1.08 (H) 0.58 - 0.96 mg/dL Final eGFR Date Value Ref Range Status 07/20/2004 115 Final Glucose, Point of Care Date Value Ref Range Status 08/05/2021 296 (A) 74 - 99 mg/dL Final Comment: Location:[facility], [address] [place] [address], [facility] The Accu-Chek Inform II glucose meter has not been approved for testing on patients receiving intensive medical intervention or therapy and results from this point of care glucose test should not be used for patient management decisions in these cases. Inaccurate results may also occur from other interfering factors, such as N-acetylcysteine (blood concentrations of greater than 5mg/dL), galactose, extremes of hematocrit (<10 or >65), or high doses of ascorbic acid (vitamin C) greater than 3mg/dL. Consider alternate testing mechanisms (e.g. core lab, blood gas instrument) in the above situations. Current Medications, Past Medical History, Past Surgical History, Family History, Social History and Review of Systems: On today's date, noted above, I have confirmed and edited as necessary, the PFSH and ROS obtained by others. Physical Exam: 05/04/23 1417 Pulse: 68 Resp: 18 SpO2: 97% Physical Exam Vitals reviewed. Constitutional: General: She is not in acute distress. Appearance: She is not ill-appearing. HENT: Head: Normocephalic and atraumatic. Eyes: Conjunctiva/sclera: Conjunctivae normal. Cardiovascular: Pulses: Normal pulses. Pulmonary: Effort: Pulmonary effort is normal. No respiratory distress. Musculoskeletal: Cervical back: Tenderness present. Pain with movement present. Decreased range of motion. Thoracic back: Spasms and tenderness present. Decreased range of motion. Lumbar back: Spasms, tenderness and bony tenderness present. Decreased range of motion. Comments: Trigger points were palpated. With positive and negative results. Positive Justus sign. Skin: General: Skin is warm and dry. Neurological: Mental Status: She is alert and oriented to person, place, and time. Gait: Gait abnormal (antalgic with a cane). Deep Tendon Reflexes: Reflex Scores: Patellar reflexes are 1+ on the right side and 1+ on the left side. Psychiatric: Mood and Affect: Mood and affect normal. Behavior: Behavior normal. Behavior is cooperative. IMPRESSION: 62 year old female presents with complaint(s) of Allover body pain from fibromyalgia. Patient is here requesting opioid therapy. Patient was explained when she made the appointment that this would not. Provided at her first visit patient and was very upset with this acknowledgment. After assessment and doing reviews of patient's history and conditions, and this practitioner's opinion opioid therapy would not be appropriate for us to start. Patient has been discharged from a past pain management and per the opioid screening she is a high risk patient. Discussed other options with the patient on how to manage her pain other than opioid therapy. Including physical therapy potentially starting Lyrica, potentially starting a muscle relaxer. It was explained to the patient that adjunct medications and exercises a more appropriate manner in managing fi bromyalgia. Patient's was very upset about this. Patient's stating that his 's pain will be out of control without his of her medication. Patient was more calm with what was told to her but her was very upset. I left her coming back to this practice up to her. If she decides that she wants to go a 9 opioid method to manage her pain from fibromyalgia we will be happy to take care of her. Patient stated understanding, patient's was upset. Diagnoses: (M79.7) Fibromyalgia (primary encounter diagnosis) PLAN: Gutierrez Hobson would benefit from the following to reach personal goals for decreasing pain, improving function and work participation, and/or improving quality of life: Medications: No Changes - Continue Current Medications Interventional Procedures: None Studies: None Functional Zoroastrianism: NONE Referrals: No additional considerations at present Follow-up: If patient decides to follow in on opioid method in managing her fibromyalgia pain. Depending on response to the above plan, consider: TBD Compliance and Clinic Policies Reviewed and/or Discussed Today: None Attribution: In addition to reviewing the information noted above, some elements copied from my most recent clinical note(s), including the physical exam (completed in entirety today), and the impression and plan sections, have been updated where appropriate. All reflect current medical decision making from today's date. Fernanda Rosenbaum APRN.DAVIDE [facility] * Wali Mitchell LPN - 05/04/2023 2:13 PM EST Review of Systems Constitutional: Positive for activity change and chills. Negative for unexpected weight change. Gastrointestinal: Negative for bowel retention or incontinence Genitourinary: Negative for difficulty urinating. Negative for bladder retention or incontinence Musculoskeletal: Positive for arthralgias, back pain, gait problem, joint swelling, myalgias, neck pain and neck stiffness. Neurological: Positive for weakness and headaches. Negative for numbness. Psychiatric/Behavioral: Positive for dysphoric mood and sleep disturbance. Negative for suicidal ideas. The patient is nervous/anxious. documented in this encounterK[facility]-29-2024 Miscellaneous Notes* Telephone Encounter - Loree Montiel RN - 05/04/2023 1:24 PM EST Spoke with patient's . Given message from provider's office. He verbalizes understanding. Loree Montiel RN * Telephone Encounter - Tiff Pearson MD - 05/04/2023 2:14 AM EST Level was appropriate and consistent with patient taking Nucynta * Telephone Encounter - Quiana Jett RN - 05/03/2023 4:19 PM EST Patient's calling and notified of below. asking about urine test that was done on 04/12/2022. Please review and advise, Quiana Jett RN * Telephone Encounter - Darcy Sequeira RN - 05/03/2023 3:53 PM EST Attempted to call patient with medication update below. Message left to call PCP office and ask fora nurse for update below. Also please offer to assist patient with scheduling an appt with Dr. Pearson (or other triad member), as advised below. Darcy Sequeira RN * Telephone Encounter - Tiff Pearson MD - 05/03/2023 1:22 PM EST Below noted. Had been on RX to take 2 at a time before Sent new RX The following approved medication requests have been transmitted electronically. Requested Prescriptions Signed Prescriptions Disp Refills hyoscyamine sublingual (LEVSIN SL) 0.125 mg 60 tablet 1 Sig: Dissolve 2 tablets under the tongue every 6 hours as needed. Authorizing Provider: TIFF PEARSON MD Patient missed April appointment with me. Will need rescheduled, especially if still having to help with prescribing pain med while waiting to see pain management. * Telephone Encounter - Darcy Sequeira RN - 05/03/2023 10:58 AM EST Patient's Foreign calling with patient in background. states patient's current prescription directions for her hyoscyamine states for patient to take one tablet every 6 hours PRN. states her last prescription for this medication stated she could take two tablets every 6 hours PRN. reports one tablet does not work for patient and she needs to take two every 6 hours PRN. Asking if this is ok? Please advise spouse or patient. Thank you. documented in this encounterK[facility]02-22-2024 Miscellaneous Notes* Telephone Encounter - Rose Graff - 04/27/2023 2:50 PM EST Patient's has called in and left a voicemail because they had received a missed call from our office. I have returned this call and offered to move this patient up to 05/04/23 with Fernanda in [place]. Patient stated what is she supposed to do about her medication. I stated that there is no guarantee that we will prescribe medications that we do mostly injection based pain management. Patient stated that they won't do the injections and are only looking for medications. Patient did agree to take the appointment with Fernanda. Patient also asked if we had received her records from her other pain management. I did look but it does not look like we have received them. Rose Graff * Telephone Encounter - Gretta Alcaraz - 04/27/2023 12:54 PM EST LVM for patient to return call to reschedbhupinder Alcaraz * Telephone Encounter - Prerna Saleh - 04/27/2023 11:54 AM EST ----- Message from Rodger Dunham sent at 04/27/2023 11:13 AM EST ----- Regarding: Spine and Pain / Govea / John Appointment Subject Line Format: Medicine / [Provider Name] / [Issue] Patient: Gutierrez Hobson Date of : 1960 Primary Care Provider: Tiff Pearson MD Patient has been identified by name and Date of (Y/N): Y Patient: Gutierrez Hobson Date of : 1960 Provider for this encounter: Dhruv Govea MD Reason for the call/escalation: Patient couldn't make it to her appointment because she was sick on04/27/23. Patient doesn't want to sign up for a My Chart for the waitlist and would like to speak with the office about getting in any sooner at the [place] office. Please reach out to patient for assistance. Was Patient Referred to [facility]/Seek Emergency Treatment (Y/N): N Did Patient Agree (Y/N): N/A Was An Attempt Made To Transfer The Patient To The Office (Y/N): N Were You Able To Reach Someone At The Office (Y/N): N/A If Yes - Patient Was Transferred To (Caregivers Name): N/A If No - Which [facility] Leadership Hired Hand Did You Speak With Regarding This Patient: N/A Was an appointment scheduled (Y/N): N Reason patient was requesting visit (RFV/signs and symptoms/diagnosis) : Back and Neck Pain Person calling if other than patient: Self Return call to if other than patient: Self Best contact number: [phone] Thank you, Rodger Dunham April 27, 2023 11:13 AM documented in this encounterK[facility]02-22-2024 Miscellaneous Notes* Telephone Encounter - Ileana Medeiros LPN - 04/27/2023 11:02 AM EST This nurse returned the voicemail for this patient. They did not leave any reason for their call, Inoticed that we attempted to call them yesterday as a reminder for today's appointment. When I called the patient it was 10:55 and their appointment was for 11:00 for a new patient. I tried to contact the [place] office to see if we should just re-schedule was not able to locate a phone number. Sent a message through [employer] to inform them that the patient was on their way. Ileana Medeiros LPN documented in this encounterK[facility]02-21-2024 Miscellaneous Notes* Telephone Encounter - Izzy Acharya MA - 04/26/2023 10:47 AM EST .Patient has been identified by name and date of : Yes Patient phones for refill(s): Requested Prescriptions Pending Prescriptions Disp Refills fluticasone-salmeterol (ADVAIR DISKUS) 100-50 mcg/dose inhaler 1 Each 2 Sig: Inhale 1 Puff as instructed two times a day. Rinse mouth out after use with water. Date of last office visit in primary care: 04/13/2023 Date of next office visit in primary care: 04/26/2023 Please advise. Thank you. Izzy Acharya MA. * Telephone Encounter - Izzy Yancey - 04/26/2023 9:11 AM EST Patient has been identified by name and date of : Yes Requested Prescriptions Pending Prescriptions Disp Refills fluticasone-salmeterol (ADVAIR DISKUS) 100-50 mcg/dose inhaler 1 Each 2 Sig: Inhale 1 Puff as instructed two times a day. Rinse mouth out after use with water. RX INSTRUCTIONS: Pharmacy initiated this request. No need to notify patient. Izzy Jones Pss documented in this encounterK[facility]02-20-2024 Miscellaneous Notes* Telephone Encounter - Rose Graff - 04/25/2023 8:25 AM EST Patient left a voicemail that she had received a missed call from our office. I have attempted to contact this patient by phone, Left brief message on home voicemail stating that this was just a reminder call for her upcoming appointment on in [place] with Dr. Govea. Rose Graff documented in this encounterK[facility]02-14-2024 History of Present illness Narrative* Gaaythri Quintero - 04/19/2023 8:59 AM EST POPULATION HEALTH NAVIGATION OUTREACH Action/FYI Letter received and sent to be mailed Outreach Outcome/Action Letter mailed Navigation Signature: Gayathri Quintero April 19, 2023 8:59 AM documented in this encounterKet[facility]02-14-2024 Miscellaneous Notes* Telephone Encounter - Sachin Ortega Ma - 04/19/2023 8:48 AM EST Detailed message left on [place] voicemail. * Telephone Encounter - Linda Platt LPN - 04/17/2023 1:30 PM EST Left message for patients to return call to office. * Telephone Encounter - Tiff Pearson MD - 04/17/2023 1:25 PM EST The following approved medication requests have been transmitted electronically. Requested Prescriptions Signed Prescriptions Disp Refills hyoscyamine sublingual (LEVSIN SL) 0.125 mg 60 tablet 1 Sig: Dissolve 1 tablet under the tongue every 6 hours as needed (epigastric discomfort). Authorizing Provider: TIFF PEARSON MD * Telephone Encounter - Carmenza Vasquez LPN - 04/17/2023 1:02 PM EST Her Foreign calling asking for refill has none left. She is in bed. Aware sending to PCP. * Telephone Encounter - Izzy Acharya MA - 04/17/2023 11:33 AM EST Pt was dispensed a 2 day supply on 04/09/23 at [facility] ER. Per ER note, patient to follow up with PCP if pain becomes persistent. ER note printed and given to PCP to review. Izzy Acharya MA * Telephone Encounter - Kendra Mejia LPN - 04/17/2023 10:54 AM EST Patient has not been seen by pulmonology since 2019, over 5 years ago. Will forward request to PCP for consideration. Kendra Mejia LPN * Telephone Encounter - Kadi Samaniego RN - 04/17/2023 10:42 AM EST Patient's spouse called in stating the patient is out of her medication: Hyoscyamine 0.125mg tablet ([id number]) He said this is to help her lung pain and that it has been helping a lot. States Lyndsey Craig prescribed it. Unable to find this medication in her medication list. Please send this prescription to [facility] in [place]. Thank you. documented in this encounterK[facility]02-12-2024 Miscellaneous Notes* Telephone Encounter - Darcy Sequeira RN - 04/17/2023 2:03 PM EST Patient and returned call together and provider's message reviewed below. Yanna Sequeira RN * Telephone Encounter - Loree Montiel RN - 04/17/2023 1:22 PM EST Spoke with patient's . Given message from provider's office. He verbalizes understanding. Loree Montiel RN * Telephone Encounter - Tiff Pearson MD - 04/17/2023 1:19 PM EST Below noted Nucynta level still pending The following approved medication requests have been transmitted electronically. Requested Prescriptions Signed Prescriptions Disp Refills tapentadol (NUCYNTA) 75 mg tab 42 tablet 0 Sig: Take 1 tablet by mouth three times a day for 14 days. Authorizing Provider: TIFF PEARSON MD * Telephone Encounter - Carmenza Vasquez LPN - 04/17/2023 8:45 AM EST Patient Foreign calling has no medication for pain (Nucynta) still waiting for urine test to come back. He said she has not had any pills for few days now. He said she can not go cold turkey without any medication. Patient asking to have rx sent to [facility] [facility] so she can get some today please. Please advise documented in this encounterK[facility]02-08-2024 Miscellaneous Notes* Telephone Encounter - Loree Montiel RN - 04/13/2023 6:25 PM EST Patient seen in [facility] today @ 4:20 PM as scheduled. Loree Montiel RN * Telephone Encounter - Lyndsey Hull - 04/13/2023 3:56 PM EST Please Note: pts spouse called at 3:50 to see if there was a sooner appt than her current 4:20. He states he wondered if someone had canceled so they could take their spot. They will be checking in soon for visit. He did not want to take her to the ER because they had this appt and he said they arejust going to say that we need to follow up with pt. * Telephone Encounter - Esteban Gabriel APRN.CNS - 04/13/2023 12:17 PM EST Noted, agree should be seen at ER for any severe or concerning symptoms. Not clear on what URI symptoms or GERD symptoms she may be having. She should follow recommendations from her recent emergency department visit. Until she is seen. Please obtain records for today's visit with Dr Flores if she does come here. * Telephone Encounter - Rama Burroughs RN - 04/13/2023 11:48 AM EST Spouse (Foreign) calls to report that they contacted [facility] and were told that patient has a cold and should be seen by provider today and Foreign reports that this should have been caughtsooner. Foreign reports that patient continues to have severe chest pain and SOB. Reviewed below with spouseand that severe chest pain should be evaluated at the ED. Patient continues to refuse. Foreign also requesting refill of Nucynta. Reports patient has 9 left. Notified Foreign urine for tapentadol is still in process. Rama Burroughs RN * Telephone Encounter - Apple Love LPN - 04/13/2023 11:39 AM EST Apple from [facility] called & stated pt has called their office saying they think the problem is with pt's pacemaker. Apple states they would be happy to see pt however they do not think pt's symptoms are cardiac related. States she has had her pacemaker checked with them. Pt's troponinlevel was 6 in ER. EKG unchanged. Apple states pt's drug screen showed + for ecstacy however pt is taking topamax which can cause a false positive. She also tested + for marijuana. Apple Love LPN * Telephone Encounter - Darcy Sequeira RN - 04/13/2023 11:05 AM EST Patient calling with complaint of severe chest pain and severe shortness of breath. Pain radiates into neck, back and shoulders. is with patient. ER advised multiple times during this call and patient declining to go. States she was just at [facility] ER on 04/08 and all tests were good. She states she will not go back to the ER. Reports her chest pain is the same as when she went to ER on 04/08-that it is no different and no worse. Pt states [facility] instructed her to make appt with [place] [facility] which she has not done so yet. Spouse voices concerns that pt's sx's are related to a problem withpt's pacemaker. Again ER was advised during call and pt declined. Pt believes her sx's are related to GERD. Reports when at ER they ordered her Hyoscysmine Sulfate and this improved her sx's. Reports she completed this medication a couple days ago and ever since then her sx's have returned. Patient and spouse adamant about requesting a provider order more of thismedication as soon as possible for patient. This nurse advised that patient needs ER F/U to discussrecent ER visit and to evaluate patient. Pt and spouse express their frustration, they would like more Hyoscysmine ordered now. Pt requesting to see a provider today, as soon as possible. Offered ER F/U appt with Dr. Flores at 4:20pm today, if provider agreeable. This nurse informed patient that if she comes to appt with severe chest pain, that she may be directed immediately to ER. Patient voiced understanding and wishes to proceed with appt despite risks. Will send this message to Esteban HERNANDEZ and Dr. Flores for review. Please call patient if provider has other recommendation. Thank you. documented in this encounterK[facility]02-08-2024 History of Present illness Narrative* Vasyl Flores MD - 04/13/2023 5:39 PM EST This note was created using [employer]. Subjective Patient presents with: ER F/U: [facility] 04/08/23 chest pain 04/08/23 Gutierrez Hobson is a 62 year old female here with her spouse for chest pain. Chest pain was anterior, burning, severe, aggravated by movement and deep breathing, coughing which was productive. Symptoms started 1 week ago. She was evaluated in the ER 04/08/23 and cardiac work up was negative. Chronicanemia was noted and mild leukocytosis. CXR was negative. GI cocktail was equivocal but hyoscyaminehelped. was asking for a refill. [facility] and sent here, as CHF was not likely. Review of Systems Constitutional: Negative for chills, diaphoresis and fever. HENT: Negative for congestion and sore throat. Respiratory: Positive for cough and chest tightness. Negative for shortness of breath and wheezing. Cardiovascular: Positive for chest pain. Negative for palpitations and leg swelling. Gastrointestinal: Negative for abdominal pain, nausea and vomiting. ACTIVE PROBLEM LIST Other Specified Types of Schizophrenia Macular Degeneration (Senile) of Retina, Unspecified Diabetes Mellitus Type 2, Uncontrolled, Without Complications Hyperlipidemia Sleep Apnea Asthma Ventral Hernia Small Intestinal Anastomotic Leak Fistula Scruggs Catheter Dysfunction ([facility]) Tracheostomy Care ([facility]) Hypomagnesemia Ileostomy in Place ([facility]) Abdominal Adhesions Chronic, Continuous Use of Opioids History of Tracheal Stenosis Enterocutaneous Fistula Complete Heart Block ([facility]) Cardiac Pacemaker in Situ Right Bundle Branch Block Hypoalbuminemia Hypoproteinemia ([facility]) Class 1 Obesity Due to Excess Calories With Serious Comorbidity and Body Mass Index (Bmi) of 33.0 to 33.9 in Adult Obesity, Class II, Bmi 35-39.9 Chronic Obstructive Pulmonary Disease (Copd) ([facility]) Diabetic Peripheral Neuropathy Associated With Type 2 Diabetes Mellitus ([facility]) 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 Medical Marijuana Current Outpatient Medications Medication Sig magnesium oxide (MAG-OX) 400 mg (241.3 mg magnesium) tablet Take 1 tablet by mouth once daily. hydrocortisone 2.5 % cream Apply 1 application to affected area two times a day as needed. Location: neck (reaction to tape adhesive) May also use for poison tania. Use up to 14 days per episode of rash. nystatin (MYCOSTATIN) powder Apply 1 application to affected area four times a day as needed. lidocaine (LMX) 4 % cream Apply to affected area four times a day as needed (for painful sore in rectal area as directed). melatonin 10 mg tab Take 1 tablet by mouth at bedtime as needed for insomnia. pravastatin (PRAVACHOL) 40 mg tablet Take 1 tablet by mouth once daily. Ostomy Supplies [facility] 1. Convatec Flanges Ref# [id number] 10 to a box, 3 boxes 2. [employer] Protective Barrier Wipes Ref # [id number] 1 box = 50 wipes, 3 boxes 3. [employer]vatec Adhesive Glue Ref # [id number] 2 oz tube, 3 tubes 4. [employer]vatec Stoma Adhesive Powder Ref # [id number] 1 oz bottle, 3 bottles 5. Convate Stoma Bags Ref # [id number] 10 in a box, 3 boxes benzonatate [...] BEFORE breakfast gabapentin (NEURONTIN) 300 mg capsule blood sugar diagnostic (BLOOD GLUCOSE TEST) test strip Test blood sugar(s) 4 times daily and as needed as directed. Dx: Type 2 DM - Uncontrolled E11.65 Insulin: Yes ketoconazole (NIZORAL) 2 % cream Apply 1 application to affected area once daily. as needed triamcinolone acetonide (KENALOG) 0.1 % cream Apply 1 application to affected area three times daily. Apply sparingly to area for rash/itching till rash resolves. For contact dermatitis Lancets lancets Test blood sugar(s) 1 times daily and as needed. Dx: Type 2 DM - Uncontrolled E11. Insulin: Yes alcohol swabs (SURE-PREP ALCHOLOL PREP [...] g to affected area four times daily. fluticasone (FLONASE) 50 mcg/actuation nasal spray [...] directed for treatment of asthma). Nebulizer Accessories [facility] Needs new nebulizer mask, hose and supplies. (J45.20) Intermittent asthma without complication prednisoLONE acetate (PRED FORTE) 1 % ophthalmic suspension Use 1 Drop in the right eye four times daily. blood sugar diagnostic (TRUE METRIX GLUCOSE TEST STRIP) test strip Check blood sugar 4 times daily.DX: E11.65. Insulin : yes vancomycin 25 mg/mL [...] - Uncontrolled E11.65 Insulin: Yes Nebulizer Accessories [facility] Needs new nebulizer mask, hose and supplies. [...] application to affected area as needed for DrySkin (all dry skin areas). Lidocaine-Hydrocortisone Ac 3-0.5 % crea by RECTAL route twice daily for 14 days. topiramate (TOPAMAX) 100 mg tablet Take 1 tablet by mouth once daily. Per psychiatrist (Patient taking differently: Take 300 mg by mouth daily at bedtime. Per psychiatrist) No current facility-administered medications for this visit. Objective BP 95/58 Pulse 89 Temp 36.9 C (98.4 F) (Right Tympanic) Resp 20 Wt 81.3 kg (179 lb 4.8 oz) SpO2 93% BMI 28.94 kg/m Physical Exam Constitutional: General: She is not in acute distress. Appearance: She is ill-appearing. She is not diaphoretic. HENT: Head: Atraumatic. Eyes: Conjunctiva/sclera: Conjunctivae normal. Cardiovascular: Rate and Rhythm: Normal rate and regular rhythm. Heart sounds: No murmur heard. No gallop. Pulmonary: Effort: No respiratory distress. Breath sounds: No wheezing, rhonchi or rales. Chest: Chest wall: Tenderness present. No deformity or crepitus. Comments: Palpation reproducing pain. Abdominal: Tenderness: There is no abdominal tenderness. Musculoskeletal: Cervical back: No tenderness. Right lower leg: No edema. Left lower leg: No edema. Neurological: General: No focal deficit present. Psychiatric: Attention and Perception: Perception normal. Mood and Affect: Affect is flat. Speech: Speech normal. Behavior: Behavior is withdrawn. ER reports cardiology facsimile reviewed. Assessment and Plan 1. Costochondritis - ICD9: 733.6, ICD10: M94.0 (primary diagnosis) Shared Medical Decision Making was done: Medication: prednisone. Benefits: Medication may help inflammation of chest wall in the short term. Risks: Possible side effects were discussed including hyperglycemia. Possible interactions: n/a. Warnings: worsening diabetes mellitus. Options: NSAID. Duration: short term. - PREDNISONE 10 MG TABLET 2. Anemia, unspecified type - ICD9: 285.9, ICD10: D64.9 Chronic. 3. Diabetic peripheral neuropathy associated with type 2 diabetes mellitus (HCC) - ICD9: 250.60, 357.2, ICD10: E11.42 - Worsening control - reported labile blood sugars. He held LANTUS if her glucose was running low, and gave extra glimepiride if glucose >200. - I recommended he not hold Lantus, but glimepiride if glucose is low. Vasyl Flores MD documented in this encounterKettering [facility]02-07-2024 Miscellaneous Notes* Telephone Encounter - Susan Freitas LPN - 04/12/2023 1:42 PM EST Patient has been identified by name and date of : Yes, Provider Dr. Pearson Date 04/12/23 Time 1:43 pm Pharmacy phones for refill(s): Requested Prescriptions Pending Prescriptions Disp Refills magnesium oxide (MAG-OX) 400 mg (241.3 mg magnesium) tablet 30 tablet 11 Sig: Take 1 tablet by mouth once daily. Date of last office visit in primary care: 03/27/2023 Date of next office visit in primary care: 04/26/2023 Thank you. Susan Freitas LPN. documented in this encounterKettering [facility]02-05-2024 Miscellaneous Notes* Telephone Encounter - Rama Burroughs RN - 04/10/2023 12:09 PM EST Call placed to patient and notified that order was in for urine test. Patient verbalizes understanding and will come in. Didn't want to schedule lab appt. Rama Burroughs RN * Telephone Encounter - Esteban Gabriel APRN.CNS - 04/07/2023 5:05 PM EST This was ordered by PCP, patient can complete * Telephone Encounter - Izzy Acharya MA - 04/05/2023 3:46 PM EST Order pended. Izzy Acharya MA * Telephone Encounter - Tiff Pearson MD - 04/04/2023 5:25 PM EST Can check urine test that is specific for Nucynta. Ask lab if our tox screen and pain panel can detect Nucynta * Telephone Encounter - Quiana Jett RN - 04/03/2023 1:18 PM EST Patient and patient's calls back and states that patient has never stopped medication. Patient and have no clue as to why patient would have tested negative for medication since she has been taking the medication. Quiana Jett RN * Telephone Encounter - Izzy Acharya MA - 04/03/2023 11:40 AM EST Spoke with patient and patient's . Do not believe that they understood my question when I asked them prior to most recent RX written by Dr. Pearson when last dose of tapentadol was (prior to submitting urine screen). Patient's stated that she has always been taking them 3x a day. Patient's questioning why if results negative this is necessary. Explained that in this case, we would want a positive result reflecting that she is taking the tapentadol. Patient's and patient still not understanding the question. Will see if another nurse can call and is able to explain. Izzy Acharya MA * Telephone Encounter - Tiff Pearson MD - 04/02/2023 8:11 PM EST Tox screens were negative for everything, including opiates. No illicit drugs found At appointment, she reported that she was not taking Nucynta at that time (03/27)--could have run out of medication before lab was done. Verify when had taken last dose prior to 03/27 appointment. Could be reason was negative on tox screen. * Telephone Encounter - Quiana Jett RN - 03/31/2023 12:28 PM EST Patient and patient's calls and notified of below. Patient and voices understanding. Patient and asking about results from tox screen/pain panel Quiana Jett RN * Telephone Encounter - Cameron Daley RN - 03/30/2023 8:43 AM EST Left vm for pt to return call to nurse for provider's message. * Telephone Encounter - Tiff Pearson MD - 03/29/2023 7:03 PM EST Lab still in process from 03/27 Last filled Nucynta 02/21. PDMP website checked and validated. All prescriptions have been APPROPRIATELY filled. No suspiciousactivity was identified. 03/29/2023 by Tiff Pearson MD Since Dr. Trevizo just dropped patient from his practice according to patient and and no plans to taper med or transition to non-opiate was given due to 's response to tox screen results such that patient and not allowed to return to his office, will continue prescribing till sees Dr. Govea and he determine how to treat her pain. I cannot prescribe penitentiary her Nucynta since the MMED is 90. I have not prescribed this medication before, so because if this, and since the MMED is over 80 andthe tox screen is still pending, I can give 2 weeks supply at a time during this transition period.They should call a few days before the RX is due to make sure next RX at [facility] by the time needs filled--they could call the Monday prior to when needs RX. Sorry for the inconvenience. The following approved medication requests have been transmitted electronically. Requested Prescriptions Signed Prescriptions Disp Refills tapentadol (NUCYNTA) 75 mg tab 42 tablet 0 Sig: Take 1 tablet by mouth three times a day for 14 days. Authorizing Provider: TIFF PEARSON MD * Telephone Encounter - Rama Burroughs RN - 03/29/2023 2:17 PM EST Spouse (Foreign) calls with patient to ask about the results of urine testing. Notified that some results are still pending. Spouse requesting a message be sent to Dr. Pearson to request Nucynta 75 mg three times daily be sent to [facility] until patient is seen by Dr. Govea on 04/27/2023. Patient reports that she has one Nucynta left and then will be completely out. Rama Burroughs RN documented [facility] Discharge summary Author Sean Craig [facility] April 08, 2023 10:30pm Note Date/Time April 08, 2023 6 :02pm [facility] Medical Records Department [address] [place] [address] Emergency Department Summary 04/08/23 MR#: [id number] Acct: [id number] Name: GUTIERREZ HOBSON Rep #:[id number] : [id number] 62 From: Sean Craig MD PCP: Dr. Tiff Pearson MD Status:RE G ER Location: ED HPI History of Present Illness Chief Complaint: Chest Pain Informant: patient Narrative Narrative: Patient states she has been having intermittent sharp sometimes pleuritic left- sided chest discomfort for the past 3 days. When it is there he can last for couple hours. Today she did not have any symptoms until about an hour ago when she was walking in a store. It is still there. Makes her little short of breath because it hurts to breathe. No palpitations or syncope/near syncope. No recent edema in her legs. She has had a cough for about a month that is occasionally productive of clear sputum but no blood. No history of DVT or PE. No anticoagulants. Takes no aspirin or other antiplatelet medications. She hasa pacemaker but no stents in her heart, she does not know specifics about her medical history. [facility] Medical History Anxiety Anxiety and depression Asthma Bradycardia Colon cancer COPD (chronic obstructive pulmonary disease) Depression Diabetes Former smoker GERD (gastroesophageal reflux disease) Hyperlipidemia Hypertension Migraines Obesity (BMI 30.0-34.9) Paranoid schizophrenia Schizophrenia Secondary pulmonary arterial hypertension Tracheitis Type I diabetes mellitus Home Medications topiramate 100 mg tablet 100 mg PO BID 03/01/17 [History Last Taken 12/06/18 09:00] hydrocortisone 2.5 % topical cream 1 applic topical DAILY 30 days ##30 10/31/17 [History Last Taken Unknown] insulin glargine 100 unit/mL (3 mL) subcutaneous pen (Lantus Solostar U-100 Insulin) 12 unit subcut QHS 10/31/17 [History Last Taken Unknown] thiothixene 2 mg capsule 2 mg PO DAILY 30 days ##30 10/31/17 [History Last Taken 12/04/17 05:30] trazodone 100 mg tablet 300 mg PO QHS 30 days ##90 10/31/17 [History Last Taken Unknown] glimepiride 4 mg tablet 4 mg PO DAILY 30 days ##30 11/01/17 [History Last Taken Unknown] amitriptyline 25 mg tablet 25 mg PO QHS 11/28/17 [History Last Taken Unknown] melatonin 5 mg-pyridoxine (vitamin B6) 1 mg tablet (Melatonin (with B6)) 2 ea POQHS 11/28/17 [History Last Taken Unknown] omeprazole 20 mg capsule,delayed release 20 mg PO DAILY 12/04/17 [History Last Taken 12/06/18 09:00] cariprazine 3 mg capsule 3 mg PO QHS mental status 12/04/18 [History Last Taken Unknown] fluphenazine HCl 1 mg tablet 1 mg PO QHS 12/04/18 [History Last Taken Unknown] guaifenesin 600 mg tablet, extended release 12 hr 600 mg PO TID 12/04/18 [History Last Taken 12/06/18 09:00] pravastatin 40 mg tablet 40 mg PO DAILY 12/04/18 [History Last Taken Unknown] tapentadol 75 mg tablet 75 mg PO TID pain 12/04/18 [History Last Taken 12/06/18 09:00] magnesium oxide 400 mg (241.3 mg magnesium) tablet 400 mg PO DAILY 04/16/19 [History Last Taken Unknown] hydrocortisone 2.5 % topical cream with perineal applicator 1 applic TN QHS PRN hemorrhoids #30 grams 05/17/21 [Rx Last Taken Unknown] hyoscyamine sulfate 0.125 mg sublingual tablet 0.25 mg (2 x 0.125 mg) PO Q6H PRNepigastric discomfort #12 tabs 04/08/23 [Rx Last Taken Unknown] Allergy/AdvReac Type Severity Reaction Status Date / Time azithromycin Allergy Rash Verified 04/08/23 17:39 Cephalosporins Allergy Rash Verified 04/08/23 17:39 goss [cherries] Allergy Angioedema Verified 04/08/23 17:39 codeine Allergy Rash Verified 04/08/23 17:39 diclofenac [Diclofenac] Allergy Rash Verified 04/08/23 17:39 hydrocodone bitartrate Allergy Rash Verified 04/08/23 17:39 [From Vicodin] hydromorphone HCl Allergy Rash Verified 04/08/23 17:39 [From Dilaudid] lemon Allergy Angioedema Verified 04/08/23 17:39 Penicillins Allergy Anaphylaxis Verified 04/08/23 17:39 Sulfa (Sulfonamide Allergy Rash Verified 04/08/23 17:39 Antibiotics) pear AdvReac NEEDS Verified 04/08/23 17:39 FOLLOW-UP soap AdvReac NEEDS Verified 04/08/23 17:39 FOLLOW-UP Family History Father Heart disease Other Thyroid disorder Surgical History Colostomy in place History of appendectomy History of colectomy History of partial colectomy Presence of cardiac pacemaker (09/28/16) Tracheostomy in place Social History household members: spouse Smoking Status: Former smoker quit date: 08/27/10 pack-years: 45 substance use type: does not use and marijuana ROS ROS ED Constitutional Constitutional ED: Denies chills or fever(s) Eyes Eyes: Denies change in vision or diplopia ENT ENT ED: Denies rhinorrhea or sore throat Cardiovascular Cardiovascular: Reports as per HPI and chest pain; Denies leg edema or palpitations Respiratory/Chest Respiratory/Chest: Reports cough and dyspnea Gastrointestinal Gastrointestinal: Denies abdominal pain, diarrhea, nausea or vomiting Genitourinary Genitourinary ED: Denies dysuria or hematuria Musculoskeletal Musculoskeletal: Denies back pain or neck pain Integumentary Denies abscess or rash Neurologic Neurologic: Denies headache(s), paresthesias or weakness Psychiatric Psychiatric: Denies anxiety or suicidal thoughts EXAM Physical Exam Const Vital Signs: 04/08/23 17:40 04/08/23 17:47 04/08/23 18:17 Temperature 98.2 F Temperature Source Oral Pulse Rate 58 L Respiratory Rate 16 Respiratory Pattern Normal Blood Pressure 122/51 H Blood Pressure Mean 74 Pulse Ox 97 Oxygen Delivery Method Room Air Room Air 04/08/23 18:58 04/08/23 19:00 04/08/23 19:10 Temperature Temperature Source Pulse Rate 65 Respiratory Rate 0 L 20 H Respiratory Pattern Blood Pressure 138/44 H Blood Pressure Mean 68 Pulse Ox Oxygen Delivery Method 04/08/23 19:15 04/08/23 19:20 04/08/23 19:30 Temperature Temperature Source Pulse Rate 65 97 92 Respiratory Rate 20 H 21 H 19 H Respiratory Pattern Blood Pressure 122/67 H Blood Pressure Mean 80 Pulse Ox 97 96 Oxygen Delivery Method Room Air 04/08/23 19:40 04/08/23 19:45 04/08/23 19:50 Temperature Temperature Source Pulse Rate 85 61 104 H Respiratory Rate 18 21 H 19 H Respiratory Pattern Blood Pressure 141/68 H Blood Pressure Mean 87 Pulse Ox Oxygen Delivery Method 04/08/23 20:00 04/08/23 20:10 04/08/23 20:15 Temperature Temperature Source Pulse Rate 66 96 95 Respiratory Rate 23 H 20 H 20 H Respiratory Pattern Blood Pressure 126/74 H 130/74 H Blood Pressure Mean 90 92 Pulse Ox Oxygen Delivery Method Room Air 04/08/23 20:20 04/08/23 20:30 04/08/23 20:40 Temperature Temperature Source Pulse Rate 89 87 90 Respiratory Rate 18 22 H 22 H Respiratory Pattern Blood Pressure 123/76 H Blood Pressure Mean 92 Pulse Ox Oxygen Delivery Method 04/08/23 20:45 04/08/23 20:50 04/08/23 21:08 Temperature Temperature Source Pulse Rate 89 92 Respiratory Rate 25 H 20 H Respiratory Pattern Blood Pressure 133/116 H Blood Pressure Mean 121 Pulse Ox 94 Oxygen Delivery Method Room Air 04/08/23 21:10 04/08/23 21:15 04/08/23 21:20 Temperature Temperature Source Pulse Rate 98 Respiratory Rate 15 Respiratory Pattern Blood Pressure 157/76 H Blood Pressure Mean 99 Pulse Ox 94 Oxygen Delivery Method 04/08/23 21:30 04/08/23 21:40 Temperature Temperature Source Pulse Rate 97 92 Respiratory Rate 26 H 21 H Respiratory Pattern Blood Pressure 121/85 H Blood Pressure Mean 96 Pulse Ox 93 94 Oxygen Delivery Method Room Air Positive well nourished, well developed and obese General Appearance ED: well developed and NAD Nutritional Appearance: obese HEENT Reports moist mucous membranes normocephalic and atraumatic Eyes PERRL and EOMs intact bilaterally Neck full ROM, supple and no JVD Resp normal respiratory effort and clear to auscultation bilaterally Cardio regular rate, regular rhythm and no murmurs GI non-tender and non-distended Auscultation: normoactive bowel sounds Palpation: soft Back/Spine no CVA tenderness General Back: other FROM Extremity normal to inspection General Extremety ED: Negative for edema, pulses abnormal or tenderness General Extremity: Negative for edema or pulses abnormal Neuro oriented x3, CN's II-XII intact bilaterally and no sensory deficits noted Sensorium / Orientation: awake and alert Motor Exam: strength 5/5 throughout Psych Psych Narrative: Flat affect Skin no rashes or lesions noted and no wounds Heart Score History: Slightly/Non-Suspicious ECG: Normal Age: >45 - <65 years Risk Factors: 1 or 2 Risk Factors Score: 2 MDM MDM MDM Narrative Medical decision making narrative: Patient was initially given Mylanta but it did not make her pain go away although it seemed to improve a little. She was then given fentanyl while she was waiting for labs to return because she was asking for more pain medication. She is mild leukocytosis but no sign of a pneumonia on 1 view chest x-ray my interpretation. EKG similar to baseline, no acute injury pattern troponin 6. Repeated it 2 hours later, it is 6 again for a delta of 0. Her D-dimer is normal, ruling out pulmonary embolus. She does not appear to have a widened mediastinum on a chest x-ray to suggest an aortic dissection here. I gave her hyoscyamine she said that really helped but she still has some mild pain. I am giving her prescription for that to use as needed if she has pain that persist longer than a couple days she should follow-up with her doctor sooner than later, she should do that regardless. She is comfortable with that plan. Lab Data Attestation: I reviewed the patient's lab results. Labs: Laboratory Results - last 24 hr 04/08/23 04/08/23 04/08/23 19:10 19:35 21:15 WBC 13.9 H RBC 3.33 L Hgb 8.6 L Hct 29.6 L MCV 88.9 MCH 25.8 L MCHC 29.1 L RDW Std Deviation 56.2 H RDW Coeff of Gali 17.4 H Plt Count 335 MPV 8.4 Immature Gran % (Auto) 0.400 Neut % (Auto) 88.3 H Lymph % (Auto) 5.3 L Turner % (Auto) 5.8 Eos % (Auto) 0.1 Baso % (Auto) 0.1 Absolute Neuts (auto) 12.3 H Absolute Lymphs (auto) 0.74 L Nucleated RBC % 0 D-Dimer Quant (PE/DVT) < 0.27 L Sodium 128 L Potassium 4.2 Chloride 105 Carbon Dioxide 17.0 L Anion Gap 6 BUN 9 Creatinine 1.16 H Estim Creat Clear Calc 51.88 Est GFR (MDRD) Af Amer 60 Est GFR (MDRD) Non-Af 50 L BUN/Creatinine Ratio 7.8 L Glucose 331 H Calcium 8.4 L Troponin I High Sens 6 6 Radiography Diagnostic Testing: Clinical Impression(s) from Imaging Studies Chest X-Ray 04/08/23 18:38 IMPRESSION: 1. Cardiomegaly, intracardiac pacer is noted. No evidence of congestive failure. 2. Shallow inspiration with crowding of bronchovascular markings, no focal infiltrate consolidation. Electronically Signed: Jaylen Hart MD at 19:02 EST , Rhythm Strip Rhythm Strip: Sinus Rhythm Rate: 60 Ectopy: None EKG Initial EKG: Attestation: I personally reviewed and interpreted this EKG as follows: Interpretation: Sinus Rhythm, No Acute Injury Pattern and RBBB Prior EKG tracings: available for review Prior: Unchanged Discharge Plan Triage Chief Complaint: Chest Pain ED Provider: Sean Craig Dx/Rx/DC Orders Clinical Impression: Chest pain, unspecified Instructions: ED Chest Pain, Noncardiac Prescriptions: New hyoscyamine sulfate 0.125 mg tablet, sublingual 0.25 mg PO Q6H PRN (Reason: epigastric discomfort) Qty: 12 0RF No Action glimepiride 4 mg tablet 4 mg PO DAILY 30 Days Qty: 30 Patient Comments: hydrocortisone 2.5 % cream 1 applic TOPICAL DAILY 30 Days Qty: 30 Patient Comments: thiothixene 2 mg capsule 2 mg PO DAILY 30 Days Qty: 30 Patient Comments: trazodone 100 mg tablet 300 mg PO QHS 30 Days Qty: 90 Patient Comments: insulin glargine [Lantus Solostar U-100 Insulin] 100 unit/mL (3 mL) insulin pen 12 unit SC QHS topiramate 100 mg tablet 100 mg PO BID Patient Comments: 1 tablet every morning melatonin-pyridoxine (vit B6) [Melatonin (with B6)] 1 EACH tablet 2 ea PO QHS amitriptyline 25 MG tablet 25 mg PO QHS omeprazole 20 MG capsule 20 mg PO DAILY pravastatin 40 MG tablet 40 mg PO DAILY fluphenazine HCl 1 MG tablet 1 mg PO QHS tapentadol 75 MG tablet 75 mg PO TID cariprazine 3 MG capsule 3 mg PO QHS guaifenesin 600 MG tablet extended release 12hr 600 mg PO TID magnesium oxide 400 MG tablet 400 mg PO DAILY Patient Comments: TAKE 1 TABLET BY MOUTH EVERY DAY hydrocortisone 2.5 % cream with perineal applicator 1 applic TN QHS PRN (Reason: hemorrhoids) Qty: 30 0RF Primary Care Provider: Tiff Pearson Referrals: Tiff Pearson MD [Primary Care Provider] - As soon as possible Disposition Disposition: Home, Self Care What to do if you have Problems For any increased pain, shortness of breath, bleeding, nausea or vomiting, chestpain, or any unexpected problems, contact your Primary Care Provider. Call [facility] ([phone]) or report to the closest Emergency Room. Call 911 if necessary. 04/08/232229 <Electronically signed by Sean Craig MD> Cosigner Signature (if applicable): CC: Dr. Tiff Pearson MD ~ Signed [facility] Work Phone: [phone]) 659-242101-28-2024 Miscellaneous Notes* Telephone Encounter - Tiff Pearson MD - 04/02/2023 8:23 PM EST There is another telephone encounter about this. See that one too * Telephone Encounter - Michael Veloz RN - 03/31/2023 4:52 PM EST Pt called in and was asking for the results of her pain panel and tox panel. I told her it looked like they were both negative, but I would have Dr Pearson look at them as well. 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 [facility] History of Present illness Narrative* Tiff Pearson MD - 03/27/2023 3:27 PM EST This note was created using iLyngoriter. Subjective Gutierrez Hobson is a 62 year old female. Patient presents with: F/U 3 Month SUBJECTIVE: Gutierrez Hobson is a 62 year old year old lady here today for 3 month follow up appointment for review of medical conditions. States that Dr. Trevizo discharged her from his practice due to positive screening drug test that was done in his office--positive for opiate (appropriate) and Buprenoprhine (not on) MTD and PCP. She states that there was another urine in the bathroom that was not marked and wonders if that mixed up with hers. Noted no confirmatory test was done--just the screening test. [facility] to [facility] and did a tox screen there and was negative for PCP but was positive only for BDZ. Noted that disrespect and tox screen were reasons that was let go from practice. States that she declined epidural injection. States made her numb from waist down. Did not help forthe pain. No OTC supplements not on list except melatonin at bedtime. Wound care center appt next week Nonstick pads help. Silk tape okay. PAST MEDICAL HISTORY Diagnosis Date Acute anaphylaxis 09/15/2016 Acute peptic ulcer, unspecified site, without mention of hemorrhage, perforation, or obstruction 1999 Asthma Bowel disease Colon polyps Bowel obstruction (HCC) 02/24/2015 Presented to hospital with obstruction, now status post exploratory laparotomy on Feb 23, 2015 withresection of small bowel, and ventral hernia repair, left with fascia open but skin closed History of multiple abdominal surgeries making case very difficult, now with 2 anastamosis sites, unable to close fascia Enteric contents from midline incision 03/06/2015 CT abd 03/[address] abd 03/11unchanged, persistent but stable enteric leak -- continue medical management of leak with antibiotics, NPO, drain, and TPN on transfer to [facility] Chronic obstructive pulmonary disease (COPD) ([facility]) 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 [...] in limb 02/05/2010 Paranoid schizophrenia, chronic condition ([facility]) 1985 Peptic ulcer, unspecified site, unspecified as [...] follow daily CBC and coags S/P colostomy ([facility]) SBO (small bowel obstruction) ([facility]) 09/11/2016 Skin lesion 03/09/2015 Skin sloughing on LEs with blisters, indeterminate purple lesions on back -> now improving Per Dermatology consult: linear erosions are most likely irritant contact dermatitis or pressure inducederosions. In addition there are small edema bullae on the abdominal wall Both require gentle wound care and emollients such as aquaphor or petroleum jelly -- monitor Tracheostomy in place ([facility]) Placed 2015 after prolonged respiratory failure, unable to liberate from vent. Unspecified migraine 1998 Ventral hernia with bowel obstruction 09/10/2016 Added automatically from request for surgery [id number] VRE bacteremia 09/29/2016 Current Outpatient Medications Medication Sig lidocaine (LMX) 4 % cream Apply to affected area four times a day as needed (for painful sore in rectal area as directed). melatonin 10 mg tab Take 1 tablet by mouth at bedtime as needed for insomnia. pravastatin (PRAVACHOL) 40 mg tablet Take 1 tablet by mouth once daily. Ostomy Supplies [facility] 1. Convatec Flanges Ref# [id number] 10 to a box, 3 boxes 2. Allkare Protective Barrier Wipes Ref # [id number] 1 box = 50 wipes, 3 boxes 3. Convatec Adhesive Glue Ref # [id number] 2 oz tube, 3 tubes 4. Convatec Stoma Adhesive Powder Ref # [id number] 1 oz bottle, 3 bottles 5. Convatec Stoma Bags Ref # [id number] 10 in a box, 3 boxes fluticasone-salmeterol (ADVAIR DISKUS) 100-50 mcg/dose inhaler Inhale 1 Puff as instructed two times a day. Rinse mouth out after use with water. omeprazole (PRILOSEC) 20 mg capsule TAKE ONE CAPSULE BY MOUTH EVERY DAY 30 MINUTES BEFORE breakfast ketoconazole (NIZORAL) 2 % cream Apply 1 [...] directed for treatment of asthma). Nebulizer Accessories [facility] Needs new nebulizer mask, hose and supplies. (J45.20) Intermittent asthma without complication prednisoLONE acetate (PRED FORTE) 1 % ophthalmic suspension Use 1 Drop in the right eye four times daily. blood sugar diagnostic (TRUE METRIX GLUCOSE TEST STRIP) test strip Check blood sugar 4 times daily.DX: E11.65. Insulin : yes cefTAZidime ophthalmic solution 2.5% (25 mg/mL) (IP-CPD) [...] - Uncontrolled E11.65 Insulin: Yes Nebulizer Accessories [facility] Needs new nebulizer mask, hose and supplies. [...] application to affected area as needed for DrySkin (all dry skin areas). benzonatate (TESSALON PERLE) 100 mg capsule Take 2 capsules by mouth three times a day as needed. (Patient not taking: Reported on 03/27/2023) NUCYNTA 50 mg three times a day. (Patient not taking: Reported on 03/27/2023) gabapentin (NEURONTIN) 300 mg capsule (Patient not taking: Reported on 03/27/2023) blood sugar diagnostic (BLOOD GLUCOSE TEST) test strip Test blood sugar(s) 4 times daily and as needed as directed. Dx: Type 2 DM - Uncontrolled E11.65 Insulin: Yes fluticasone (FLONASE) 50 mcg/actuation nasal spray Use 2 Sprays in each nostril once daily. Rinse mouth after use. (Patient not taking: Reported on 03/27/2023) vancomycin 25 mg/mL ophthalmic drops ([facility]) Use 1 Drop in the right eye every 2 hours. (Patient not taking: Reported on 03/14/2023) Lidocaine-Hydrocortisone Ac 3-0.5 % crea by RECTAL route twice daily for 14 days. phenazopyridine (PYRIDIUM) 100 mg tablet Take 1 tablet by mouth three times daily as needed. (Patient not taking: Reported on 03/14/2023) tapentadol (NUCYNTA) 75 mg tab Take 50 mg by mouth three times daily. Taking 1 three times a day per Dr Trevizo. (Patient not taking: Reported on 03/27/2023) topiramate (TOPAMAX) 100 mg tablet Take 1 tablet by mouth once daily. Per psychiatrist (Patient taking differently: Take 300 mg by mouth daily at bedtime. Per psychiatrist) No current facility-administered medications for this visit. Review of Systems Objective BP 117/75 Pulse 91 Temp 36.9 C (98.4 F) Resp 18 Wt 79.8 kg (176 lb) SpO2 99% BMI 28.41 kg/m Last 5 Encounter Wt Readings: Date: Wt: 03/27/2023 79.8 kg (176 lb) 03/14/2023 81.6 kg (180 lb) 02/13/2023 86.2 kg (190 lb) 02/08/2023 83.5 kg (184 lb) 01/12/2023 87.1 kg (192 lb) No waist measurement recorded Estimated body mass index is 28.41 kg/m as calculated from the following: Height as of 08/01/21: 167.6 cm (5' 6). Weight as of this encounter: 79.8 kg (176 lb). Last 5 Encounter BP Readings: Date: BP: 03/27/2023 117/75 03/14/2023 104/70 02/13/2023 132/82 02/08/2023 104/72 01/12/2023 119/61 Physical Exam Constitutional: Appearance: Normal appearance. She is obese. HENT: Head: Normocephalic. Eyes: Conjunctiva/sclera: Conjunctivae normal. Cardiovascular: Rate and Rhythm: Normal rate and regular rhythm. Heart sounds: Normal heart sounds. Pulmonary: Effort: Pulmonary effort is normal. Breath sounds: Normal breath sounds. Skin: General: Skin is warm and dry. Neurological: General: No focal deficit present. Mental Status: She is alert and oriented to person, place, and time. Psychiatric: Mood and Affect: Mood normal. Behavior: Behavior normal. Thought Content: Thought content normal. Judgment: Judgment normal. Checked rectal area. Not red an weepy like was at last appointment. Reviewed tox screen reports from [facility] (copies they brought) Assessment and Plan Encounter Diagnosis ICD-10-CM 1. Perianal irritation L29.0 Much improved. Continue keeping area dry and avoid sitting or laying in same position for too long.Topicals to protect skin as ordered before 2. Contact dermatitis due to adhesive bandage L23.1 hydrocortisone 2.5 % cream Avoiding adhesives that trigger contact dermatitis. Treat with topical steroid as needed 3. Chronic, continuous use of opioids F11.[address] Trevizo had let her go from his practice as noted in HPI. Reviewed issue with tox screen but no confirmatory test done.See new pain mgmt doctor 4. 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 Continue monitoring for need to treat for infection or irritation related to fistula drainage. 5. Encounter for long-term current use of medication Z79.899 TOX SCREEN ROUT UR PAIN PANEL, UR QUANT CANCELED: PAIN PANEL, UR QUANT Tox screens ordered and will do confirmatory tests as indicated. Potential for false positive and false negative tests discussed. Did relationship counselor both of them about need to manage behavior especially when they feel they are wrongly accused of wrongdoing. I spent a total of 32 minutes on the date of the service which included aknf-og-gutw patient care, completing clinical documentation, obtaining and/or reviewing separately obtained history, performing a medically appropriate examination, counseling and educating the patient/family/caregiver, ordering medications, tests, or procedures, independently interpreting results (not separately reported), and communicating results to the patient/family/caregiver. documented in this encounterK[facility]12-11-2023 History of Present illness Narrative* Orestes Warren PA - 02/13/2023 4:11 PM EST This note was created using NoteWriter. Subjective Gutierrez Hobson is a 62 year old female. HPI 62-year-old female presents for cough x 1 month since getting COVID. She did take Paxlovid. Shestates she is coughing up some phlegm. 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 02/05/2010 Diabetes ([facility]) 1999 On insulin 2015 Dyslipidemia Encephalopathy in [...] in limb 02/05/2010 Paranoid schizophrenia, chronic condition ([facility]) 1985 Peptic ulcer, unspecified site, unspecified as [...] follow daily CBC and coags S/P colostomy ([facility]) SBO (small bowel obstruction) ([facility]) 09/11/2016 Skin lesion 03/09/2015 Skin sloughing on LEs with blisters, indeterminate purple lesions on back -> now improving Per Dermatology consult: linear erosions are most likely irritant contact dermatitis or pressure inducederosions. In addition there are small edema bullae on the abdominal wall Both require gentle wound care and emollients such as aquaphor or petroleum jelly -- monitor Tracheostomy in place ([facility]) Placed 2015 after prolonged respiratory failure, unable to liberate from vent. 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 nystatin (MYCOSTATIN) powder Apply 1 application to affected area four times daily. melatonin 10 mg tab Take 1 tablet by mouth at bedtime as needed for insomnia. pravastatin (PRAVACHOL) 40 mg tablet Take 1 tablet by mouth once daily. Ostomy Supplies [facility] 1. Convate Flanges Ref# [id number] 10 to a box, 3 boxes 2. [facility] Protective Barrier Wipes Ref # [id number] 1 box = 50 wipes, 3 boxes 3. [facility] Ref # [id number] 2 oz tube, 3 tubes 4. [facility] Stoma Adhesive Powder Ref # [id number] 1 oz bottle, 3 bottles 5. [employer]vate Stoma Bags Ref # [id number] 10 in a box, 3 boxes benzonatate [...] 2 DM - Uncontrolled E11.65 Insulin: Yes ketoconazole (NIZORAL) 2 % cream [...] directed for treatment of asthma). Nebulizer Accessories [facility] Needs new nebulizer mask, hose and supplies. (J45.20) Intermittent asthma without complication prednisoLONE acetate (PRED FORTE) 1 % ophthalmic suspension Use 1 Drop in the right eye four times daily. blood sugar diagnostic (TRUE METRIX GLUCOSE TEST STRIP) test strip Check blood sugar 4 times daily.DX: E11.65. Insulin : yes vancomycin 25 mg/mL [...] and as needed DX E11. Insulin YES Blood-Glucose Meter (ONETOUCH VERIO METER) Test blood sugar 4 times daily. Dx: Type 2 DM. Uncontrolled .. Insulin: yes. blood sugar diagnostic (ONETOUCH VERIO TEST STRIPS) test strip Test blood sugar 4 times daily. Dx: Type 2 DM. Uncontrolled .. Insulin: yes Zinc Oxide 40 % oint [...] DM - Uncontrolled Insulin: Yes Nebulizer Accessories [facility] Needs new nebulizer mask, hose and supplies. [...] application to affected area as needed for DrySkin (all dry skin areas). Lidocaine-Hydrocortisone Ac 3-0.5 [...] Will get CXR to rule out post COVID- pneumonia. Lungs clear on exam. No wheezing. Pulse [...] ER evaluation. PEG Dyer documented in this encounterK[facility]12-08-2023 Miscellaneous Notes* Telephone Encounter - Zenaida Donnelly Ma - 02/10/2023 9:17 AM EST Faxed. Zenaida Donnelly Ma * Telephone Encounter - Shawn Veronica APRN.CNP - 02/10/2023 9:11 AM EST Form signed, please fax back. Thank you! * Telephone Encounter - Zenaida Donnelly Ma - 02/10/2023 8:20 AM EST Type of letter/form/fax request - ostomy supply order form Form received from fax on 1 floor and placed on MD desk (Shawn Veronica's) for completion. Completed form needs to be faxed to [facility]. Route to [place] when form completed for processing documented in this encounterK[facility]12-06-2023 Instructions* Patient Instructions* Shawn Veronica APRN.CNP - 02/08/2023 1:30 PM EST Hold magnesium while on the antibiotic. documented in this encounterKet[facility]12-06-2023 History of Present illness Narrative* Shawn Veronica APRN.CNP - 02/08/2023 1:15 PM EST SUBJECTIVE Gutierrez Hobson is a 62 year old female here today for acute concern. Chief Complaint Patient presents with: Rectal Problem: on right cheek and very sore has been treated with Butt Paste HPI Gutierrez Hobson is a 62 year old female. [...] application to affected area as needed for DrySkin (all dry skin areas). doxycycline (VIBRA-TABS) 100 mg tablet Take 1 tablet by mouth two times a day for 14 days. nystatin (MYCOSTATIN) powder Apply 1 application to affected area four times daily. Ostomy Supplies [facility] 1. [facility] Fl[facility] Ref# [id number] 10 to a box, 3 boxes 2. [employer] Protective Barrier Wipes Ref # [id number] 1 box = 50 wipes, 3 boxes 3. Convate Adhesive Glue Ref # [id number] 2 oz tube, 3 tubes 4. [facility] Stoma Adhesive Powder Ref # [id number] 1 oz bottle, 3 bottles 5. [facility] St[facility] Bags Ref # [id number] 10 in a box, 3 boxes NUCYNTA [...] directed for treatment of asthma). Nebulizer Accessories [facility] Needs new nebulizer mask, hose and supplies. (J45.20) Intermittent asthma without complication prednisoLONE acetate (PRED FORTE) 1 % ophthalmic suspension Use 1 Drop in the right eye four times daily. (Patient not taking: Reported on 02/08/2023) blood sugar diagnostic (TRUE METRIX GLUCOSE TEST STRIP) test strip Check blood sugar 4 times daily.DX: E11.65. Insulin : yes vancomycin 25 mg/mL [...] Type 2 DM. Uncontrolled . Insulin: yes Ostomy Supplies (ADHESIVE REMOVER WIPES) swab [employer]. Use as directed blood sugar diagnostic (BLOOD GLUCOSE TEST) test strip Test blood sugar(s) 1 times daily and as needed. Dx: Type 2 DM - Uncontrolled Insulin: Yes Nebulizer Accessories [facility] Needs new nebulizer mask, hose and supplies. [...] discussed. Continue Chronic Obstructive Pulmonary Disease (Copd) ([facility]) Obesity, Class II, Bmi 35-39.9 - 02/01/2018 Class 1 Obesity Due to Excess Calories With Serious Comorbidity and Body Mass Index (Bmi) of 33.0 to 33.9 in Adult - 11/08/2016 Complete Heart Block ([facility]) - 09/29/2016 Cardiac Pacemaker in Situ - 09/29/2016 Right Bundle Branch Block - 09/29/2016 Hypoalbuminemia - 09/29/2016 Hypoproteinemia ([facility]) - 09/29/2016 Enterocutaneous Fistula - 09/20/2016 Abdominal Adhesions - 09/15/2016 Chronic, Continuous Use of Opioids - 09/15/2016 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 Pouched. Ventral Hernia - 10/06/2011 Sleep Apnea - 11/25/2008 Comment: Declines testing for cost issues Hyperlipidemia - 05/07/2008 Comment: LDL 121, HDL 52, TG 240 in -: rec Pravastatin 20 mg TG 482, HDL 44 in 08-12 LDL 122, HDL 51, TG 286 in 9-09: likely NC as same level prior to [...] from today's visit and in agreement with treatmentplan. Questions answered. Agrees to call the office [...] as well as compliance with taking medications. Age- appropriate health preventative measures were discussed. Return if symptoms worsen or fail to improve, for Keep next scheduled appointment.. Shawn Veronica APRN-BASKET PATCHER documented in this encounterK[facility]12-01-2023 Miscellaneous Notes* Telephone Encounter - Quiana Jett RN - 02/03/2023 4:46 PM EST Date of last office: 11/16/2022 Date of next office visit: 03/31/2023 Requested Prescriptions Pending Prescriptions Disp Refills melatonin 10 mg tab 30 tablet 3 Sig: Take 1 tablet by mouth at bedtime as needed for insomnia. pravastatin (PRAVACHOL) 40 mg tablet 90 tablet 3 Sig: Take 1 tablet by mouth once daily. Please advise. Thank you. Quiana Jett RN. documented in this encounterK[facility]11-22-2023 Miscellaneous Notes* Telephone Encounter - Gwendolyn Lawrence LPN - 01/25/2023 3:32 PM EST Scripts faxed to [facility]. * Telephone Encounter - Shawn Veronica APRN.CNP - 01/25/2023 12:50 PM EST I printed scripts for this, please send to the DME provider and see if okay with how we ordered. * Telephone Encounter - Gwendolyn Lawrence LPN - 01/25/2023 10:55 AM EST Spoke with patient and her . For patient's ostomy supplies she is needing the following: Convatec Flanges Ref# [id number] 10 to a box and requesting 3 boxes [facility] Protective Barrier Wipes Ref # [id number] 1 box = 50 wipes [employer] Adhesive Glue Ref # [id number] 2 oz tube [employer] Stoma Adhesive Powder Ref # [id number] 1 oz bottle [employer] Stoma Bags Ref # [id number] 10 in a box * Telephone Encounter - Gwendolyn Lawrence LPN - 01/10/2023 3:05 PM EST Updated office note has been faxed to [facility]. Will leave encounter open until able to talk with patient in regards to ostomy supplies. * Telephone Encounter - Shawn Veronica APRN.CNP - 01/10/2023 2:34 PM EST I did update her most recent office note with this info, also I placed an order for ostomy suppliesbut I am not sure what specifics [facility] needs. * Telephone Encounter - Gwendolyn Lawrence LPN - 01/10/2023 12:21 PM EST Was able to reach patient at [facility] [...] soap if phalang continues not to stick. * Telephone Encounter - Gwendolyn Lawrence LPN - 01/04/2023 10:50 AM EDT [address] [place] [address] sent a fax requesting documentation for insurance purposes asking: Type of Ostomy and was able to find that on the problem list as an Ileostomy Condition of skin surrounding the Ostomy Message left for patient to return call. Please inquire to the skin condition around her Ileostomy. Once addressed forward telephone encounter to Shawn Veronica. documented in this encounterKet[facility]11-14-2023 Miscellaneous Notes* Telephone Encounter - Monique Dunn RN - 01/17/2023 3:54 PM EST Printed positive COVID results and faxed to Dr. Trevizo's office as pt requested. * Telephone Encounter - Lyndsey Hull - 01/17/2023 3:07 PM EST Pt needs written proofe sent over to her pain management provider stating she tested positive for COVID. They do not believe her and feel she is not wanting to come to her appointment for no reason. Dr. Trevizo, Fax is [phone] documented in this encounterKettering [facility]11-09-2023 History of Present illness Narrative* Annmarie Castillo APRN.BASKET PATCHER - 01/12/2023 1:37 PM EST Subjective The history is provided by the patient. No historical interpreter was used. HPI Gutierrez Hobson is a 62 year old female who presents today for CC of sinus congestion, runny nose. The patient is not a good historian, so difficult to follow time line. Patient was seen here on01/09, tested for covid, that was negative, she return on Wednesday 01/10 and had a paronychia drainedand placed on doxycycline, which has improved, but [...] post exploratory laparotomy on Feb 23, 2015 withresection of small bowel, and ventral hernia repair, left with fascia open but skin closed History of multiple abdominal surgeries making case very difficult, now with 2 anastamosis sites, unable to close fascia Enteric contents from midline incision 03/06/2015 CT abd 1/ with enteric leak CT abd 03/11unchanged, persistent but stable enteric leak -- continue medical management of leak with antibiotics, NPO, drain, and TPN on [facility] Chronic obstructive pulmonary disease (COPD) ([facility]) 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 02/05/2010 Diabetes ([facility]) 1999 On insulin 2015 Dyslipidemia Encephalopathy in [...] in limb 02/05/2010 Paranoid schizophrenia, chronic condition ([facility]) 1985 Peptic ulcer, unspecified site, unspecified as [...] follow daily CBC and coags S/P colostomy ([facility]) SBO (small bowel obstruction) ([facility]) 09/11/2016 Skin lesion 03/09/2015 Skin sloughing on LEs with blisters, indeterminate purple lesions on back -> now improving Per Dermatology consult: linear erosions are most likely irritant contact dermatitis or pressure inducederosions. In addition there are small edema bullae on the abdominal wall Both require gentle wound care and emollients such as aquaphor or petroleum jelly -- monitor Tracheostomy in place ([facility]) Placed 2016 after prolonged respiratory failure, unable to liberate from vent. 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 Annmarie Castillo APRN.DAVIDE documented in this encounterKettering [facility]11-07-2023 Miscellaneous Notes* Telephone Encounter - Darcy Sequeira RN - 01/10/2023 9:03 AM EST Spouse and patient returned call together, and given provider's message below. Yanna Sequeira RN * Telephone Encounter - Nay Strange LPN - 01/10/2023 8:51 AM EST LEFT MESSAGE FOR PATIENT TO CALL BACK /ISABELLA KUMAR * Telephone Encounter - Arvind Mcleod APRN.CNP - 01/10/2023 7:47 AM EST COVID-19, influenza A, and influenza B PCR test are negative. Continue supportive therapies as discussed during visit. Follow-up with PCP if symptoms are not improving. Arvind Mcleod APRN.CNP documented in this encounterKettering [facility]11-06-2023 Instructions* Patient Instructions* Arvind Mcleod APRN.CNP - 01/09/2023 3:22 PM EST How to Manage Common Symptoms Associated with COVID for Adults Fever- Fever is a temperature over 100.4 F and can occur when the body is fighting an infection. Tohelp treat a fever: Drink plenty of fluids [...] your chest such as Vicks, which can helpreduce cough. Try cough drops. Avoid smoking and other strong odors or perfumes. Try breathing exercises to keep your lungs open and clear. Take a big deep breath through your noseand hold for 5 seconds before slowly releasing. [...] of water every 10-15 minutes and increase astolerated. You can try sucking an ice cube [...] or concerning to you. documented in this encounterKettering [facility]11-06-2023 History of Present illness Narrative* Arvind Mcleod APRN.CNP - 01/09/2023 3:20 PM EST Subjective HPI Nontoxic-appearing female presents urgent care chief complaint COVID-19 concerns. Duration of symptoms 2 days. Associated symptoms nasal congestion and headache. Presents today for COVID-19 testing. States tested positive for COVID-19 today. His symptoms started before hers. Has not use anyOTC medications. Denies any other concerns. Denies any fever body aches chills productive cough chest pain shortness of breath pleuritic pain hemoptysis nausea vomiting abdominal pain change in bowelor bladder habits. Past medical history prescription medication [...] post exploratory laparotomy on Feb 23, 2015 withresection of small bowel, and ventral hernia repair, left with fascia open but skin closed History of multiple abdominal surgeries making case very difficult, now with 2 anastamosis sites, unable to close fascia Enteric contents from midline incision 03/06/2015 CT abd [address] abd 03/11unchanged, persistent but stable enteric leak -- continue medical management of leak with antibiotics, NPO, drain, and TPN on [facility] Chronic obstructive pulmonary disease (COPD) ([facility]) 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 02/05/2010 Diabetes ([facility]) 2000 On insulin 2015 Dyslipidemia Encephalopathy in [...] in limb 02/05/2010 Paranoid schizophrenia, chronic condition ([facility]) 1985 Peptic ulcer, unspecified site, unspecified as [...] follow daily CBC and coags S/P colostomy ([facility]) SBO (small bowel obstruction) ([facility]) 09/11/2016 Skin lesion 03/09/2015 Skin sloughing on LEs with blisters, indeterminate purple lesions on back -> now improving Per Dermatology consult: linear erosions are most likely irritant contact dermatitis or pressure inducederosions. In addition there are small edema bullae on the abdominal wall Both require gentle wound care and emollients such as aquaphor or petroleum jelly -- monitor Tracheostomy in place ([facility]) Placed 2015 after prolonged respiratory failure, unable to liberate from vent. Unspecified migraine 1998 Ventral hernia with bowel obstruction 09/10/2016 Added automatically from request for surgery [id number] VRE bacteremia 09/29/2016 PAST SURGICAL HISTORY Procedure [...] [Atorvastatin Calcium], Lyrica [Pregabalin], Opioids - Morphine Analogues,Penicillins, Percocet [Oxycodone-Acetaminophen], Soap, Sulfa (Sulfonamide Antibiotics), Vicodin [Hyd rocodone-Acetaminophen], and Zithromax [Azithromycin] MEDICATIONS fluticasone-salmeterol (ADVAIR DISKUS) [...] nostril once daily. Rinse mouth after use. tflkyrzbejVCYBP-rzupgj-ipncyethb (BMX 1:1:1) 1:1:1 liqd Mix in equal [...] directed for treatment of asthma). Nebulizer Accessories [facility] Needs new nebulizer mask, hose and supplies. (J45.20) Intermittent asthma without complication prednisoLONE acetate (PRED FORTE) 1 % ophthalmic suspension Use 1 Drop in the right eye four times daily. (Patient not taking: Reported on 11/16/2022) blood sugar diagnostic (TRUE METRIX GLUCOSE TEST STRIP) test strip Check blood sugar 4 times daily.DX: E11.65. Insulin : yes vancomycin 25 mg/mL [...] DM - Uncontrolled Insulin: Yes Nebulizer Accessories [facility] Needs new nebulizer mask, hose and supplies. [...] application to affected area as needed for DrySkin (all dry skin areas). FAMILY HISTORY Problem [...] primary care provider as needed. Patient was instructedto immediately proceed to emergency room for any new, worsening, or symptoms lasting longer than anticipated. The patient's clinical presentation is otherwise unremarkable at this time. Based on examand clinical finding, the patient is stable for discharge. Plan of care was discussed with patient.Patient verbalizes understanding and agrees to plan of care. This note was generated using [employer] software. It may contain errors in wording, punctuation, or spelling. Arvind Mcleod APRN.BASKET PATCHER documented in this encounterKettering [facility]11-06-2023 History of Present illness Narrative* Mansi Varela RT(R) - 01/09/2023 3:10 PM EST Radiology Service Progress Note PATIENT NAME: Gutierrez Hobson DATE OF SERVICE: January 09, 2023 TIME: 3:06 PM PATIENT IDENTITY VERIFICATION COMPLETED USING TWO (2) IDENTIFIERS: Name and Date of confirmedby patient verbally. FALL SCREENING: Has the patient had 2 falls in the last year or 1 fall with injury or currently using an Ambulatory Assistive Device (Walker, Cane, Wheelchair, Crutches, etc.)? No PATIENT GENDER DATA: Female. status: : No status: NO. PATIENT RELEVANT IMPLANT DATA REVIEWED: Not Applicable RADIOLOGY DEPARTMENT: General X-ray: Exam(s) Completed: Upper Extremity X- Ray(s): Fingers/Thumb, left PERIPHERAL IV DATA: Not applicable SIGNED BY: RT Brittany(R) January 09, 2023 3:06 PM documented in this encounterKettering [facility]11-06-2023 Miscellaneous Notes* Telephone Encounter - Quiana Jett RN - 01/09/2023 10:16 AM EST Date of last office: 11/16/2022 Date of next office visit: 03/31/2023 Requested Prescriptions Pending Prescriptions Disp Refills fluticasone-salmeterol (ADVAIR DISKUS) 100-50 mcg/dose inhaler 1 Each 2 Sig: Inhale 1 Puff as instructed two times a day. Rinse mouth out after use with water. Please advise. Thank you. Quiana Jett RN. documented in this encounterKettering [facility]11-05-2023 History of Present illness Narrative* Jacklyn Freitas PA-C - 01/08/2023 1:46 PM EST Images from the original note were not included. This note was created using Zenph. Subjective Gutierrez Hobson is a 62 year old female. 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 02/05/2010 Diabetes ([facility]) 1999 On insulin 2015 Dyslipidemia Encephalopathy in [...] through the rectal area Mild protein-calorie malnutrition ([facility]) 03/09/2015 Secondary to small bowel obstruction requiring surgical intervention, 2 anastomosis sites, with continued enteric leak and stool from incision -- NPO for enteric leak -- Nutrition via parenteral route with daily adjustment of lytes On total parenteral nutrition (TPN) 04/22/2015 Other specified disorders of pancreatic internal secretion 04/1999 Diabetes on metformin Pain in limb 02/05/2010 Paranoid schizophrenia, chronic condition ([facility]) 1985 Peptic ulcer, unspecified site, unspecified as [...] follow daily CBC and coags S/P colostomy ([facility]) SBO (small bowel obstruction) ([facility]) 09/11/2016 Skin lesion 03/09/2015 Skin sloughing on LEs with blisters, indeterminate purple lesions on back -> now improving Per Dermatology consult: linear erosions are most likely irritant contact dermatitis or pressure inducederosions. In addition there are small edema bullae on the abdominal wall Both require gentle wound care and emollients such as aquaphor or petroleum jelly -- monitor Tracheostomy in place (HCC) Placed 2016 after prolonged respiratory failure, unable to liberate from vent. Unspecified migraine 1999 Ventral hernia with bowel obstruction 09/10/2016 Added automatically from request for surgery [id number] VRE bacteremia 09/29/2016 Current Outpatient Medications Medication Sig Dispense Refill doxycycline (VIBRA-TABS) 100 mg tablet Take 1 tablet by mouth two times a day for 7 days. 14 tablet0 omeprazole (PRILOSEC) 20 mg capsule TAKE ONE CAPSULE BY MOUTH EVERY DAY 30 MINUTES BEFORE wnqsmnkof22 capsule 1 NUCYNTA 50 mg three times [...] Uncontrolled E11.65 Insulin: Yes 100 Each 11 alcohol swabs (SURE-PREP ALCHOLOL PREP PADS) Test blood sugars 4 x's daily. Dx: E11.65 Insulin: Xom241 Each 11 insulin glargine (LANTUS SOLOSTAR U-100 [...] Rinse mouth after use. 1 Each 0 vslfbbhupjRREVK-ixdjzx-jpjwifhvw (BMX 1:1:1) 1:1:1 liqd Mix in equal [...] as directed for treatment of asthma). 1 Each0 Nebulizer Accessories [facility] Needs new nebulizer mask, hose and supplies. (J45.20) Intermittent asthma without complication 1 Each 0 prednisoLONE acetate (PRED FORTE) 1 % ophthalmic suspension Use 1 Drop in the right eye four times daily. (Patient not taking: Reported on 11/16/2022) 15 mL 0 blood sugar diagnostic (TRUE METRIX GLUCOSE TEST STRIP) test strip Check blood sugar 4 times daily.DX: E11.65. Insulin : yes 150 Each 11 [...] swab All Care brand. Use as directed Each 5 fluPHENAZine (PROLIXIN) 1 mg tablet Take 3 mg by mouth once daily. blood sugar diagnostic (BLOOD GLUCOSE TEST) test strip Test blood sugar(s) 1 times daily and as needed. Dx: Type 2 DM - Uncontrolled E11.65 Insulin: Yes 50 Strip 11 Nebulizer Accessories [facility] Needs new nebulizer mask, hose and supplies. [...] application to affected area as needed for DrySkin (all dry skin areas). 120 g 1 [...] kg (195 lb 3.2 oz) SpO2 94% BMI31.51 kg/m Physical Exam Vitals reviewed. Constitutional: Appearance: [...] - XR DIGIT GENERAL 3V FRONTAL/LAT/OBL LEFT Jacklyn Freitas PA-C documented in this encounterK[facility]-05-2023 Instructions* Patient Instructions* Jacklyn Freitas PA-C - 01/08/2023 1:20 PM EST Soak the finger in warm water several times a day. If not improving follow-up with PCP. documented in this encounterK[facility]10-31-2023 Miscellaneous Notes* Telephone Encounter - Jessica Dominguez LPN - 01/03/2023 2:25 PM EDT Patient is changing pharmacy. Patient has been [...] you. Jessica Dominguez LPN. documented in this encounterK[facility]10-19-2023 History of Present illness Narrative* Suzanna Escalante - 12/22/2022 1:45 PM EDT Last saw pcp: 11/16/22 Subjective: Patient presents [...] Objective: Patient presents to clinic ambulating in [facility] Vasc: DP and PT pulses are palpable bilateral. CFT is less than 5 seconds bilateral. Skin temperature is warm to cool proximal to distal bilateral. There is mild edema or varicosities noted. Neuro: Protective sensation is intact to the foot and toes when tested with the 5.07 SWM bilateral.Vibratory sensation is absent at the hallux IPJ [...] RTC in 3-4 months. Suzanna Escalante DPM * Susan Forbes - 12/22/2022 1:29 PM EDT AMB ROOMING INTAKE FLOWSHEET DATA Some tingling in feet but no pain. documented in this encounterKet[facility]10-19-2023 Instructions* Patient Instructions* Suzanna Escalante - 12/22/2022 1:45 PM EDT [...] it. Apply a bandage and wear a differentpair of shoes. Take Care of Your Toenails Cut toenails after bathing, when they are soft. Cut toenails straight across and smooth with a nail file. Avoid cutting into the corners of toes. Do not cut cuticles. If you have neuropathy (or decreased sensation in your feet) a reverse engineer should always cut your toenails. Be Careful [...] make sure there are no foreign objects orrough areas. Avoid tight socks. Wear natural-fiber socks [...] Go to your health care provider or reverse engineer to treat these conditions. documented in this encounterK[facility]09-21-2023 Miscellaneous Notes* Telephone Encounter - Tiff Pearson MD - 11/24/2022 3:04 PM EDT Okayed * Telephone Encounter - Shelly Anglin - 11/23/2022 3:34 PM EDT Patient has been identified by name and [...] and advise. Shelly Anglin documented in this encounterKet[facility]09-15-2023 Miscellaneous Notes* Telephone Encounter - Yris Nick RN - 11/18/2022 6:54 PM EDT Patient calling with request for lab result. [...] sooner f/u appt. . documented in this encounterKet[facility]09-15-2023 Miscellaneous Notes* Telephone Encounter - Quiana Jett RN - 11/18/2022 11:41 AM EDT Last Office Visit: 11/16/2022 Future Office Visit: [...] perirectal and buttocks area documented in this encounterKet[facility]09-13-2023 History of Present illness Narrative* Shawn Veronica APRN.BASKET PATCHER - 11/16/2022 3:09 PM EDT SUBJECTIVE Gutierrez Hobson is a 62 year old female here today for an ER follow up. Chief Complaint Patient presents with: ER F/U: [facility] ER 11/13/22 from a fall with left hip pain Vaginal Problem: complaints of yellow discharge with a smell and burning with urination HPI Gutierrez Hobson is a 62 year old female established patient. Presents with concerns of ER follow up. Seen in the ER at [facility] on 11/13/2022. Records available for review [...] She does note also having an anal fi ssure/fistula. Her medications were reviewed today and her [...] 1 tab po BID for 2 days then1/2 tab po BID for 2 days then 1/2 tab daily for 2 days then stop metroNIDAZOLE (FLAGYL) 500 mg tablet Take 1 tablet by mouth twice daily for 7 days. clotrimazole (LOTRIMIN) 1 % cream Apply to affected area twice daily. benzonatate (TESSALON PERLES) 100 mg capsule Take 1-2 capsules by mouth three times daily as needed. (Patient not taking: Reported on 11/16/2022) moznsmernnWZHDR-izgqzv-yzspjqalq (BMX 1:1:1) 1:1:1 liqd Mix in equal [...] directed for treatment of asthma). Nebulizer Accessories [facility] Needs new nebulizer mask, hose and supplies. (J45.20) Intermittent asthma without complication prednisoLONE acetate (PRED FORTE) 1 % ophthalmic suspension Use 1 Drop in the right eye four times daily. (Patient not taking: Reported on 11/16/2022) blood sugar diagnostic (TRUE METRIX GLUCOSE TEST STRIP) test strip Check blood sugar 4 times daily.DX: E11.65. Insulin : yes vancomycin 25 mg/mL [...] - Uncontrolled E11.65 Insulin: Yes Nebulizer Accessories [facility] Needs new nebulizer mask, hose and supplies. [...] application to affected area as needed for DrySkin (all dry skin areas). No current facility-administered [...] discussed. Continue Chronic Obstructive Pulmonary Disease (Copd) ([facility]) Obesity, Class II, Bmi 35-39.9 - 02/01/2018 Class 1 Obesity Due to Excess Calories With Serious Comorbidity and Body Mass Index (Bmi) of 33.0 to 33.9 in Adult - 11/08/2016 Complete Heart Block (Hcc) - 09/29/2016 Cardiac Pacemaker in Situ - 09/29/2016 Right Bundle Branch Block - 09/29/2016 Hypoalbuminemia - 09/29/2016 Hypoproteinemia ([facility]) - 09/29/2016 Enterocutaneous Fistula - 09/20/2016 Abdominal Adhesions - 09/15/2016 Chronic, Continuous Use of Opioids - 09/15/2016 History of Tracheal Stenosis - 09/15/[address] ([facility]) - 09/14/2016 Hypomagnesemia - 08/27/2015 Scruggs Catheter Dysfunction ([facility]) - 04/22/2015 Tracheostomy Care ([facility]) - 04/22/2015 Fistula - 04/01/2015 Small Intestinal [...] and distal to that landmark) present. No deformity,lacerations, bony tenderness or crepitus. Decreased range of [...] table and being able to get in toa position appropriate for pelvic exam. - METRONIDAZOLE [...] from today's visit and in agreement with treatmentplan. Questions answered. Agrees to call the office [...] as well as compliance with taking medications. Age- appropriate health preventative measures were discussed. Return if symptoms worsen or fail to improve, for Keep next scheduled appointment.. Shawn Veronica APRN-DAVIDE documented in this encounterK[facility]09-10-2023 Discharge summary Author Han Hooks [facility] November 13, 2022 2:32pm Note Date/Time November 13, 2022 2:01pm [facility] Medical Records Department [address] [place] [address] Emergency Department Summary 11/13/22 MR#: [id number] Acct: [id number] Name: GUTIERERZ HOBSON ALL Rep #:[id number] : 1960 62 From: Han Hooks MD PCP: Dr. Tiff Pearson MD Status:RE G ER Location: ED HPI History of Present Illness Chief Complaint: Sore Throat Informant: patient and spouse/S.O. Narrative Narrative: Patient presents with a sore left hip and a sore throat. Patient states that she was walking the bathroom the other morning. It was dark. She was not paying attention. She missed stepped and fell backwards intoa wall and then slid down the wall landing on her left buttock/hip area. It hasbeen sore ever since. She saw chiropractor 2 days ago but it is still sore. Ofnote she is already on Nucynta and gabapentin for chronic arthritic pains but not pain specifically related to the hip. She never hit her head. No headache. She is not on blood thinners. Patient also has a complaint of a sore throat. This has been going on a few days. Its not unilateral. She is able to eat and drink. No fevers or chills. No coughing. No bleeding. No epistaxis. No nasal drainage. No facial pain. Her primary reason for coming here is the sore hip but she mention the sore throat to have it evaluated also. [facility] Medical History Anxiety Anxiety and depression Asthma Bradycardia Colon cancer COPD (chronic obstructive pulmonary disease) Depression Diabetes Former smoker GERD (gastroesophageal reflux disease) Hyperlipidemia Hypertension Migraines Obesity (BMI 30.0-34.9) Paranoid schizophrenia Schizophrenia Secondary pulmonary arterial hypertension Tracheitis Type I diabetes mellitus Home Medications topiramate 100 mg tablet 100 mg PO BID 03/01/17 [History Last Taken 12/06/18 09:00] hydrocortisone 2.5 % topical cream 1 applic topical DAILY 30 days ##30 10/31/17 [History Last Taken Unknown] insulin glargine 100 unit/mL (3 mL) subcutaneous pen (Lantus Solostar U-100 Insulin) 12 unit subcut QHS 10/31/17 [History Last Taken Unknown] thiothixene 2 mg capsule 2 mg PO DAILY 30 days ##30 10/31/17 [History Last Taken 12/04/17 05:30] trazodone 100 mg tablet 300 mg PO QHS 30 days ##90 10/31/17 [History Last Taken Unknown] glimepiride 4 mg tablet 4 mg PO DAILY 30 days ##30 11/01/17 [History Last Taken Unknown] amitriptyline 25 mg tablet 25 mg PO QHS 11/28/17 [History Last Taken Unknown] melatonin 5 mg-pyridoxine (vitamin B6) 1 mg tablet (Melatonin (with B6)) 2 ea POQHS 11/28/17 [History Last Taken Unknown] omeprazole 20 mg capsule,delayed release 20 mg PO DAILY 12/04/17 [History Last Taken 12/06/18 09:00] cariprazine 3 mg capsule 3 mg PO QHS mental status 12/04/18 [History Last Taken Unknown] fluphenazine HCl 1 mg tablet 1 mg PO QHS 12/04/18 [History Last Taken Unknown] guaifenesin 600 mg tablet, extended release 12 hr 600 mg PO TID 12/04/18 [History Last Taken 12/06/18 09:00] pravastatin 40 mg tablet 40 mg PO DAILY 12/04/18 [History Last Taken Unknown] tapentadol 75 mg tablet 75 mg PO TID pain 12/04/18 [History Last Taken 12/06/18 09:00] magnesium oxide 400 mg (241.3 mg magnesium) tablet 400 mg PO DAILY 04/16/19 [History Last Taken Unknown] hydrocortisone 2.5 % topical cream with perineal applicator 1 applic TN QHS PRN hemorrhoids #30 grams 05/17/21 [Rx Last Taken Unknown] Allergy/AdvReac Type Severity Reaction Status Date / Time azithromycin Allergy Rash Verified 11/13/22 13:28 Cephalosporins Allergy Rash Verified 11/13/22 13:28 goss [cherries] Allergy Angioedema Verified 11/13/22 13:28 codeine Allergy Rash Verified 11/13/22 13:28 diclofenac [Diclofenac] Allergy Rash Verified 11/13/22 13:28 hydrocodone bitartrate Allergy Rash Verified 11/13/22 13:28 [From Vicodin] hydromorphone HCl Allergy Rash Verified 11/13/22 13:28 [From Dilaudid] lemon Allergy Angioedema Verified 11/13/22 13:28 Penicillins Allergy Anaphylaxis Verified 11/13/22 13:28 Sulfa (Sulfonamide Allergy Rash Verified 11/13/22 13:28 Antibiotics) pear AdvReac NEEDS Verified 11/13/22 13:28 FOLLOW-UP soap AdvReac NEEDS Verified 11/13/22 13:28 FOLLOW-UP Family History Father Heart disease Other Thyroid disorder Surgical History Colostomy in place History of appendectomy History of colectomy History of partial colectomy Presence of cardiac pacemaker (09/28/16) Tracheostomy in place Social History household members: spouse Smoking Status: Former smoker quit date: 08/27/10 pack-years: 45 substance use type: does not use and marijuana ROS ROS ED Constitutional Constitutional ED: Denies chills, fever(s), subjective or sweats Eyes Eyes: Denies change in vision ENT ENT ED: Reports sore throat; Denies ear pain or rhinorrhea Cardiovascular Cardiovascular: Denies chest pain or palpitations Respiratory/Chest Respiratory/Chest: Denies cough or dyspnea Gastrointestinal Gastrointestinal: Denies abdominal pain, nausea or vomiting Genitourinary Genitourinary ED: Denies dysuria or hematuria Musculoskeletal Musculoskeletal: Reports arthralgias and other Details: See history of present illness. ; Denies back pain, myalgias or neck pain Integumentary Denies Abrasions or rash Neurologic Neurologic: Denies headache(s), paresthesias or weakness Hematologic/Lymphatic Hematologic/Lymphatic: Denies easy bleeding or easy bruising Allergic/Immunologic Allergic/Immunologic ED: Denies urticaria EXAM Physical Exam Narrative Exam Narrative: Patient is awake alert sitting comfortably in bed. No acute distress. She actually looks a little bit sleepy. HEENT shows no external trauma. No facial tenderness. Tympanic membranes are clear. No sign of notable erythema. Her voice sounds normal to me and her . I see no exudate. I see no thrush. Neck is supple. No lymphadenopathy. No JVD. Lungs are clear bilaterally. Saturations are normal at 97% on room air showing no hypoxia. Heart is regular. There is no murmur gallop or rub that I hear. Abdomen is obese but otherwise benign. No tenderness. There is no cervical thoracic or lumbar area tenderness. No tenderness in the sacrum. Extremity: She does have a little bit of tenderness in the buttock posterior to the greater trochanter area. But I am not seeing any bruising in that area at this point. Her leg is not shortened. Is not rotated. No tenderness lower down in the legs. Const Vital Signs: 11/13/22 13:25 Temperature 97.7 F L Temperature Source Temporal Pulse Rate 70 Respiratory Rate 16 Blood Pressure 129/54 H Blood Pressure Mean 79 Pulse Ox 97 Oxygen Delivery Method Room Air MDM MDM MDM Narrative Medical decision making narrative: Interpretation of the patient's three-view x-ray of the left hip shows no acute process. Final reading is no evidence of displaced pelvic or hip fracture. Patient's rapid strep is negative. I discussed options with the patient. She states she is just very sore in her buttock. There is no sign of bruising. There is no sign of fracture. I explained that she is beyond the Wesley and Nucynta as an outpatient. I cannot prescribe further controlled substances. I will give her dose of medicine here. Although Dilaudid is listed as a rash she states she can have that without a problem. She is allergic to hydrocodone, oxycodone morphine codeine and most nonsteroidals. She swears Dilaudid is the one medicine that she can take that does not cause a rash. I think her sore throat is likely viral. I do not think these 2 issues are related. Radiography Diagnostic Testing: Clinical Impression(s) from Imaging Studies Hip/Pelvis X-Ray 11/13/22 13:55 IMPRESSION: No evidence of displaced pelvic or hip fracture. Electronically Signed: Schuyler Brown MD at 14:16 EDT Reading Location ID and State: [facility] / [place] , Service support , Discharge Plan Triage Chief Complaint: Sore Throat ED Provider: Han Hooks Dx/Rx/DC Orders Clinical Impression: Fall at home, Acute sore throat, Contusion of hip, left Instructions: ED Hip Contusion Prescriptions: No Action glimepiride 4 mg tablet 4 mg PO DAILY 30 Days Qty: 30 Patient Comments: hydrocortisone 2.5 % cream 1 applic TOPICAL DAILY 30 Days Qty: 30 Patient Comments: thiothixene 2 mg capsule 2 mg PO DAILY 30 Days Qty: 30 Patient Comments: trazodone 100 mg tablet 300 mg PO QHS 30 Days Qty: 90 Patient Comments: insulin glargine [Lantus Solostar U-100 Insulin] 100 unit/mL (3 mL) insulin pen 12 unit SC QHS topiramate 100 mg tablet 100 mg PO BID Patient Comments: 1 tablet every morning melatonin-pyridoxine (vit B6) [Melatonin (with B6)] 1 EACH tablet 2 ea PO QHS amitriptyline 25 MG tablet 25 mg PO QHS omeprazole 20 MG capsule 20 mg PO DAILY pravastatin 40 MG tablet 40 mg PO DAILY fluphenazine HCl 1 MG tablet 1 mg PO QHS tapentadol 75 MG tablet 75 mg PO TID cariprazine 3 MG capsule 3 mg PO QHS guaifenesin 600 MG tablet extended release 12hr 600 mg PO TID magnesium oxide 400 MG tablet 400 mg PO DAILY Patient Comments: TAKE 1 TABLET BY MOUTH EVERY DAY hydrocortisone 2.5 % cream with perineal applicator 1 applic TN QHS PRN (Reason: hemorrhoids) Qty: 30 0RF Primary Care Provider: Tiff Pearson Referrals: Tiff Pearson MD [Primary Care Provider] - 3-5 Days Activity Restrictions/Additional Instructions: Follow-up with Dr. Trevizo for further pain management. Disposition Disposition: Home, Self Care What to do if you have Problems For any increased pain, shortness of breath, bleeding, nausea or vomiting, chestpain, or any unexpected problems, contact your Primary Care Provider. Call [facility] ([phone]) or report to the closest Emergency Room. Call 911 if necessary. 11/13/22 1432 <Electronically signed by Han Hooks MD> Cosigner Signature (if applicable): CC: Dr. Tiff Pearson MD ~ Signed [facility] Work Phone: [phone] Nurse Note* Telma Billings LPN - 11/01/2022 12:47 PM EDT 2.5 solution aerosol treatment given per provider's orders. Prior to treatment O2 sat is 93. Treatment completed. O2 sat is 92 Tolerated well. Telma Billings LPN documented in this encounterK[facility]08-29-2023 History of Present illness Narrative* Christina Jensen PA-C - 11/01/2022 11:56 AM EDT 11/01/2022 Patient presents with: Cough: Cough, chest 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 02/05/2010 Diabetes ([facility]) 1999 On insulin 2015 Dyslipidemia Encephalopathy in [...] in limb 02/05/2010 Paranoid schizophrenia, chronic condition ([facility]) 1985 Peptic ulcer, unspecified site, unspecified as [...] follow daily CBC and coags S/P colostomy ([facility]) SBO (small bowel obstruction) ([facility]) 09/11/2016 Skin lesion 03/09/2015 Skin sloughing on LEs with blisters, indeterminate purple lesions on back -> now improving Per Dermatology consult: linear erosions are most likely irritant contact dermatitis or pressure inducederosions. In addition there are small edema bullae on the abdominal wall Both require gentle wound care and emollients such as aquaphor or petroleum jelly -- monitor Tracheostomy in place ([facility]) Placed 2015 after prolonged respiratory failure, unable to liberate from vent. Unspecified migraine 1998 Ventral hernia with bowel obstruction 09/10/2016 Added automatically from request for surgery [id number] VRE bacteremia 09/29/2016 ALLERGIES Goss, Lemon, Pears, Cephalosporins, Ciprofloxacin, Codeine, Diclofenac, Dilaudid [Hydromorphone (Bulk)], Lipitor [Atorvastatin Calcium], Lyrica [Pregabalin], Opioids - Morphine Analogues,Penicillins, Percocet [Oxycodone-Acetaminophen], Soap, Sulfa (Sulfonamide Antibiotics), Vicodin [Hyd rocodone-Acetaminophen], and Zithromax [Azithromycin] MEDICATIONS Current Outpatient Medications [...] mouth three times daily. May extend course asdirected or take for recurrent infection as directed [...] to 14 days per episode of rash. syrhlhbzysPFJQL-zmcnbj-ruhsczvlp (BMX 1:1:1) 1:1:1 liqd Mix in equal [...] directed for treatment of asthma). Nebulizer Accessories [facility] Needs new nebulizer mask, hose and supplies. (J45.20) Intermittent asthma without complication prednisoLONE acetate (PRED FORTE) 1 % ophthalmic suspension Use 1 Drop in the right eye four times daily. blood sugar diagnostic (TRUE METRIX GLUCOSE TEST STRIP) test strip Check blood sugar 4 times daily.DX: E11.65. Insulin : yes vancomycin 25 mg/mL [...] and as needed DX E11. Insulin YES miconazole (CADENCE ANTIFUNGAL) 2 % cream Apply 1 application to affected area twice daily. To perirectal and buttocks area Blood-Glucose Meter (ONETOUCH VERIO METER) Test blood sugar 4 times daily. Dx: Type 2 DM. Uncontrolled . Insulin: yes. blood sugar diagnostic (ONETOUCH VERIO TEST STRIPS) test strip Test blood sugar 4 times daily. Dx: Type 2 DM. Uncontrolled .. Insulin: yes Zinc Oxide 40 % oint [...] - Uncontrolled E11.65 Insulin: Yes Nebulizer Accessories [facility] Needs new nebulizer mask, hose and supplies. [...] application to affected area as needed for DrySkin (all dry skin areas). Lidocaine-Hydrocortisone Ac 3-0.5 [...] Nebulizer-Albuterol treatment in office Pre SpO2: 93% [id number]%, wheezing slightly improved. ASSESSMENT/PLAN: 1. Wheezing - [...] these issues and agrees with the plan. Christina Jensen PA-C documented in this encounterK[facility]08-21-2023 Miscellaneous Notes* Telephone Encounter - Tiff Pearson MD - 10/24/2022 7:20 PM EDT Okayed * Telephone Encounter - Quiana Jett RN - 10/24/2022 1:35 PM EDT Last Office Visit 06/28/2022 Future Office Visit: 12/26/2022 Requested Prescriptions Pending Prescriptions Disp Refills pravastatin (PRAVACHOL) 40 mg tablet 90 tablet 3 Sig: Take 1 tablet by mouth once daily. melatonin 10 mg tab 30 tablet 3 Sig: Take 1 tablet by mouth at bedtime as needed for for insomnia. documented in this encounterKet[facility]08-05-2023 Miscellaneous Notes* Telephone Encounter - Jenny Pedraza - 10/08/2022 9:22 AM EDT Left detailed message on a secured voicemail. Jenny Pedraza * Telephone Encounter - Annmarie Castillo APRN.CNP - 10/08/2022 8:08 AM EDT You tested negative for COVID. If you were tested because you were having symptoms, please monitor these symptoms and for any worrisome symptoms, please call your primary care provider or schedule a visit with [facility]. Annmarie Castillo APRN.CNP documented in this encounterKettering [facility]08-04-2023 History of Present illness Narrative* Anthony Lizarraga MD - 10/07/2022 11:38 AM EDT Patient presents with: Sore Throat: Cough x1 [...] mouth three times daily. May extend course asdirected or take for recurrent infection as directed [...] to 14 days per episode of rash. pzufkzhaeuACRES-kugdme-boitnkibb (BMX 1:1:1) 1:1:1 liqd Mix in equal [...] directed for treatment of asthma). Nebulizer Accessories [facility] Needs new nebulizer mask, hose and supplies. (J45.20) Intermittent asthma without complication prednisoLONE acetate (PRED FORTE) 1 % ophthalmic suspension Use 1 Drop in the right eye four times daily. (Patient not taking: Reported on 06/07/2022) blood sugar diagnostic (TRUE METRIX GLUCOSE TEST STRIP) test strip Check blood sugar 4 times daily.DX: E11.65. Insulin : yes vancomycin 25 mg/mL [...] DM - Uncontrolled Insulin: Yes Nebulizer Accessories [facility] Needs new nebulizer mask, hose and supplies. [...] application to affected area as needed for DrySkin (all dry skin areas). No current facility-administered [...] pain, shortness of breath, and lethargy; in theER if severe. - 2019 CORONAVIRUS Anthony Lizarraga MD documented in this encounterK[facility]07-19-2023 Instructions* Patient Instructions* Suzanna Escalante - 09/21/2022 1:39 PM EDT [...] it. Apply a bandage and wear a differentpair of shoes. Take Care of Your Toenails Cut toenails after bathing, when they are soft. Cut toenails straight across and smooth with a nail file. Avoid cutting into the corners of toes. Do not cut cuticles. If you have neuropathy (or decreased sensation in your feet) a reverse engineer should always cut your toenails. Be Careful [...] make sure there are no foreign objects orrough areas. Avoid tight socks. Wear natural-fiber socks [...] Go to your health care provider or reverse engineer to treat these conditions. documented in this encounterK[facility]07-19-2023 History of Present illness Narrative* Suzanna Escalante - 09/21/2022 1:38 PM EDT Last saw pcp: 06/28/22 Subjective: Patient presents [...] Objective: Patient presents to clinic ambulating in [place] Vasc: DP and PT pulses are palpable bilateral. CFT is less than 5 seconds bilateral. Skin temperature is warm to cool proximal to distal bilateral. There is mild edema or varicosities noted. Neuro: Protective sensation is intact to the foot and toes when tested with the 5.07 SWM bilateral.Vibratory sensation is decreased at the hallux IPJ [...] RTC in 3-4 months. Suzanna Escalante DPM * Michael Sandoval RN - 09/21/2022 1:18 PM EDT AMB ROOMING INTAKE FLOWSHEET DATA Pain Pain [...] the last few months. documented in this encounterKet[facility]06-21-2023 Miscellaneous Notes* Telephone Encounter - Susan Freitas LPN - 08/24/2022 3:01 PM EDT Spoke with pt and she was at an apt and said to go ahead and book apts and send reminders to her inthe mail. If apts do not work she will call in to change them. Mailed. Susan Freitas LPN * Telephone Encounter - Tiff Pearson MD - 08/24/2022 1:12 PM EDT Needs follow up scheduled--was to get 3 month follow ups scheduled after June appointment with me but nothingin schedule yet. Did see Shawn 06/23. See if she is okay with alternating appointments withShawn and me. The following approved medication requests [...] as directed Authorizing Provider: TIFF PEARSON MD * Telephone Encounter - Apple Love LPN - 08/23/2022 3:47 PM EDT Patient phones requesting refills as follows: Requested [...] refill Apple Love LPN documented in this encounterK[facility]05-17-2023 Miscellaneous Notes* Telephone Encounter - Shawn Veronica APRN.DAVIDE - 07/20/2022 12:42 PM EDT 10 mg script sent * Telephone Encounter - Sera Garcia - 07/20/2022 9:05 AM EDT [facility] pharmacy called to refill melatonin rx for patient. Patient told he her she is taking 10 mgtablets. Rx in Epic says 3 mg. documented in this encounterK[facility]05-03-2023 Miscellaneous Notes* Telephone Encounter - Cameron Daley RN - 07/06/2022 10:47 AM EDT Patient reports the office tried to schedule her pain management referral with [facility], reports she was advised to see Dr. Javier in [place]. Gave patient phone number to Dr. Javier, and faxed referral to that office. documented in this encounterK[facility]05-03-2023 Miscellaneous Notes* Telephone Encounter - Prerna Saleh - 07/06/2022 8:36 AM EDT We do not have a Dr Zepeda with our practice Prerna Saleh [employer] [facility] [address] [place] [address] P: [phone] F: [phone] * Telephone Encounter - Prerna Saleh - 07/06/2022 8:33 AM EDT ----- Message from Berta Boone sent at 07/05/2022 4:50 PM EDT ----- Regarding: Medicine l OPEN l New Patient Appointment/Question Subject Line Format: Medicine / [Provider Name] / [Issue] Patient has been identified by name and Date of (Y/N): y Patient: Gutierrez Hobson Date of : 1960 Provider for this encounter: Tiff Pearson MD Reason for the call/escalation: Patient wanted to get scheduled with pain management but they were interested in scheduling with a Dr. Quintero. They heard he will be a new doctor at the [facility] and wanted to know more information, or to be directed in the right direction to get scheduled Was Patient Referred to [facility]/Seek Emergency Treatment (Y/N): n Did Patient Agree (Y/N): n/a Was An Attempt Made To Transfer The Patient To The Office (Y/N): n Were You Able To Reach Someone At The Office (Y/N): n/a If Yes - Patient Was Transferred To (Caregivers Name): n/a If No - Which [facility] Leadership Hired Hand Did You Speak With Regarding This Patient: n/a Was an appointment scheduled (Y/N): n Reason patient was requesting visit (RFV/signs and symptoms/diagnosis) : pain management Person calling if other than patient: self Return call to if other than patient: self Best contact number: [phone] Thank you, Berta Boone July 05, 2022 4:50 PM documented in this encounterKet[facility]04-26-2023 Miscellaneous Notes* Telephone Encounter - Gwendolyn Lawrence LPN - 06/29/2022 12:51 PM EDT Patient's answered call and notified of results. Questions if x-ray was normal why having so much pain. states You guys are the doctors youshould be figuring this out. Explain to and [...] update office if pain returns after treatment. * Telephone Encounter - Shawn Veronica APRN.CNP - 06/29/2022 12:12 PM EDT Please let Gutierrez know xray of right hip is normal. documented in this encounterKettering [facility]04-26-2023 Miscellaneous Notes* Telephone Encounter - Gwendolyn Lawrence LPN - 06/29/2022 10:14 AM EDT Referral and records faxed as requested. * Telephone Encounter - Shawn Veronica APRN.CNP - 06/28/2022 4:00 PM EDT Okay, I placed a referral with her visit from today. * Telephone Encounter - Gwendolyn Lawrence LPN - 06/28/2022 3:43 PM EDT No referral to pain management in last year. * Telephone Encounter - Shawn Veronica APRN.CNP - 06/28/2022 3:21 PM EDT Gwendolyn, is there a prior referral we can send? * Telephone Encounter - Lyndsey Hull - 06/28/2022 2:32 PM EDT Pat from Dr. Quintero's office call regarding message. She can be reached at [phone]. She stated they do treat with oral medications if pt would like to. She was not sure about the specific medication mentioned. Her office indicated it would be best to send the referral and demographics to them along with records from current pain management doctor so the providers there could look at [facility]. Fax is [phone] * Telephone Encounter - Gwendolyn Lawrence LPN - 06/28/2022 2:14 PM EDT Patient is wanting to switch pain management providers and message left with Dr Quintero's office asking if he treats chronic pain with oral medications such as Nucynta as patient does not want injections. Dr. Clark's office to return call with reply. If not need to check with Dr. Govea's office. documented in this encounterKettering [facility]04-25-2023 History of Present illness Narrative* Alessandra Avilez RT(R) - 06/28/2022 1:30 PM EDT Radiology Service Progress Note PATIENT NAME: Gutierrez Hobson DATE OF SERVICE: June 28, 2022 TIME: 1:33 PM PATIENT IDENTITY VERIFICATION COMPLETED USING TWO (2) IDENTIFIERS: Name and Date of confirmedby patient verbally. FALL SCREENING: Has the patient [...] RT Nickie(R) June 28, 2022 1:33 PM documented in this encounterK[facility]04-22-2023 Miscellaneous Notes* Telephone Encounter - Velia Ritter MA - 06/25/2022 8:28 AM EDT Pt was notified of the results. Pt verbalized understanding. Velia Ritter MA * Telephone Encounter - PEG Dyer - 06/25/2022 8:14 AM EDT Please let patient know that her urine culture came back revealing contamination. If she is still having symptoms, follow-up with PCP documented in this encounterKettering [facility]04-20-2023 History of Present illness Narrative* Steve Kenny APRN.DAVIDE - 06/23/2022 4:20 PM EDT Images from the original note were not included. Subjective HPI HPI Gutierrez Hobson is a 61 year old female who presents today for CC of multiple complaints, burning with urination for 2 weeks, ankle pain, rash, back pain, hunger after eating, breathing issues, feeling sick. states saw vaginal/groin rash, patient denies. .Patient presents with: Urinary Problem: Pt reported burning with urination x2 wks, [place], nausea. PAST MEDICAL HISTORY Diagnosis Date Acute anaphylaxis 09/15/2016 Acute peptic ulcer, unspecified site, without mention of hemorrhage, perforation, or obstruction 1999 Asthma Bowel disease Colon polyps Bowel obstruction (HCC) 02/24/2015 Presented to hospital with obstruction, now status post exploratory laparotomy on Feb 23, 2015 withresection of small bowel, and ventral hernia repair, left with fascia open but skin closed History of multiple abdominal surgeries making case very difficult, now with 2 anastamosis sites, unable to close fascia Enteric contents from midline incision 03/06/2015 CT abd 03/[address] abd 03/11unchanged, persistent but stable enteric leak -- continue medical management of leak with antibiotics, NPO, drain, and TPN on transfer to [facility] Chronic obstructive pulmonary disease (COPD) ([facility]) 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 02/05/2010 Diabetes ([facility]) 1999 On insulin 2015 Dyslipidemia Encephalopathy in [...] in limb 02/05/2010 Paranoid schizophrenia, chronic condition ([facility]) 1985 Peptic ulcer, unspecified site, unspecified as [...] follow daily CBC and coags S/P colostomy ([facility]) SBO (small bowel obstruction) ([facility]) 09/11/2016 Skin lesion 03/09/2015 Skin sloughing on LEs with blisters, indeterminate purple lesions on back -> now improving Per Dermatology consult: linear erosions are most likely irritant contact dermatitis or pressure inducederosions. In addition there are small edema bullae on the abdominal wall Both require gentle wound care and emollients such as aquaphor or petroleum jelly -- monitor Tracheostomy in place ([facility]) Placed 2015 after prolonged respiratory failure, unable to liberate from vent. 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 Nebulizer Accessories [facility] Needs new nebulizer mask, hose and supplies. (J45.20) Intermittent asthma without complication blood sugar diagnostic (TRUE METRIX GLUCOSE TEST STRIP) test strip Check blood sugar 4 times daily.DX: E11.65. Insulin : yes albuterol HFA (PROVENTIL HFA, VENTOLIN HFA) 90 mcg/actuation inhaler Inhale 2 Puffs as instructed every 4 hours as needed. Blood-Glucose Meter (TRUE METRIX GLUCOSE METER) Testing one time daily and as needed DX E11.65 Insulin YES glimepiride (AMARYL) 4 mg tablet [...] times daily. Dx: Type 2 DM. Uncontrolled .. Insulin: yes. blood sugar diagnostic (ONETOUCH VERIO TEST STRIPS) test strip Test blood sugar 4 times daily. Dx: Type 2 DM. Uncontrolled .. Insulin: yes Zinc Oxide 40 % oint [...] DM - Uncontrolled Insulin: Yes Nebulizer Accessories [facility] Needs new nebulizer mask, hose and supplies. [...] application to affected area as needed for DrySkin (all dry skin areas). magnesium oxide (MAG-OX) 400 mg (241.3 mg magnesium) tablet Take 1 tablet by mouth once daily. keTORolac (TORADOL) 10 mg tablet Take 1 tablet by mouth every 6 hours as needed. metroNIDAZOLE (FLAGYL) 500 mg tablet Take 1 tablet by mouth three times daily. May extend course asdirected or take for recurrent infection as directed benzonatate (TESSALON PERLES) 100 mg capsule Take 2 capsules by mouth three times daily as needed. (Patient not taking: Reported on 06/23/2022) qltnwieielSYPTR-fequab-mxalymgqw (BMX 1:1:1) 1:1:1 liqd Mix in equal [...] bedtime. (Patient taking differently: Take 10 mg bymouth daily at bedtime.) FAMILY HISTORY Problem Relation [...] MUPIROCIN 2 % TOPICAL OINTMENT Steve Kenny APRN.BASKET PATCHER documented in this encounterK[facility]04-10-2023 Miscellaneous Notes* Telephone Encounter - Carmenza Vasquez LPN - 06/13/2022 10:00 AM EDT [facility] calling asking for copy of medication list and diagnosis list for patient to be faxed to [phone]. Printed last office visit 06/07/2022 and copy of snap shot and faxed as requested. documented in this encounterKettering [facility]04-06-2023 Miscellaneous Notes* Telephone Encounter - Darcy Sequeira RN - 06/09/2022 4:15 PM EDT Medication refill requested by Pharmacy Please review [...] 2.980 Darcy Sequeira RN documented in this encounterKettering [facility]04-04-2023 Miscellaneous Notes* Telephone Encounter - Shawn Veronica APRN.CNP - 06/07/2022 1:51 PM EDT Agree with her being seen today to decide on treatment plan/next steps. * Telephone Encounter - Michael Veloz RN - 06/07/2022 10:57 AM EDT Pts called in and reports Pt is [...] had most of these and they didn't work,or just more money they would have to [...] when they came in. documented in this encounterKettering [facility]03-31-2023 Miscellaneous Notes* Telephone Encounter - PATRICIA Brito - 06/03/2022 2:24 PM EDT TC to patient who verbalizes understanding. Pt was in car and unable to schedule physical at this time. Pt will call back once she returns home to schedule. PATRICIA Brito * Telephone Encounter - Gwendolyn Lawrence LPN - 05/31/2022 3:11 PM EDT LEFT MESSAGE FOR PATIENT TO CALL OFFICE to scheduled an appointment. * Telephone Encounter - Tiff Pearson MD - 05/27/2022 8:23 PM EDT Not seen since 2020. Needs appointment for follow up--offer to have her see Shawn if not able to find slot that works forthem in my schedule. I can pop over [...] as directed Authorizing Provider: TIFF PEARSON MD * Telephone Encounter - Quiana Jett RN - 05/27/2022 4:16 PM EDT Last Office Visit: 08/17/2021 Future Office Visit: None Requested Prescriptions Pending Prescriptions Disp Refills metroNIDAZOLE (FLAGYL) 500 mg tablet 42 tablet 1 Sig: Take 1 tablet by mouth three times daily. May extend course as directed or take for recurrent infection as directed Date of Last Labs: 08/05/2021 documented in this encounterKettering [facility]03-29-[address] Nunez [facility] June 01, 2022 5:36pm Note Date/Time June 01, 2022 4:4 4pm [facility] Medical Records Department [address] [place] [address] Emergency Department Summary 06/01/22 MR#: [id number] Acct: [id number] Name: GUTIERREZ HOBSON Rep #:[id number] : 1960 61 From: Jas Nunez MD PCP: Dr. Tiff Pearson MD Status:RE G ER Location: ED HPI History of Present Illness Chief Complaint: Other, Pain/Inj Detail of Chief Complaint: Pain preventing me from sleeping and I need fentanyl Informant: patient, spouse/S.O. and other (Spoke with Dr. Paz since she justleft his office.) Onset/Context/Timing Onset: Days (4 days) Context: Sudden Onset Timing: Continuous Quality: Patient states he has not slept in 4 days because of pain. Location: Generalized total body Current Severity: Severe Maximum Severity: Severe Worsened by: Nothing specific Relieved by: Nothing Associated Symptoms Associated Symptoms: Change in appetite as well as sleep. There is a differenceregarding may Narrative Narrative: Patient is a 61-year-old woman. She has history of fibromyalgia, secondary pulmonary hypertension, type 1 diabetes, hyperlipidemia and hypertension who presented from Dr. Trevizo's office requesting fentanyl because she has not sleptfor the past 4 days. I informed the patient that fentanyl is not used for sleep.. The states she has received fentanyl in the past when she is come to the emergency department. I question if she was given fentanyl for sleep and his response was she has received fentanyl last time she was here. I informed patient and her that fentanyl is not used for sleep and that she would not receive fentanyl. His response was that does not seem to be fair. I informed it is a pain medicine. And the patient informing that she is notsleeping because she is in pain. I informed her that is why she sees Dr. Castro was this addressed with Dr. Feldman since she came from his office. Their response was no. Patient denies depression. Patient denies being sad. She states there has been a change in her appetite. She states she is not eating. states she eats everything. They both agree that she is not sleeping. They both states she has not slept in 4 days. Patient has no constitutional, ocular, visual, auditory, cardiac, respiratory, GI or neurologic symptoms. Since they presented from Dr. Paz's office he was contacted. He informed methat did ask unusual questions during her office visit. He does see herfor chronic pain. Prior similar symptoms: Yes Recent Illness/Hospitalization: No PFSH PFSH Medical History Anxiety Anxiety and depression Asthma Bradycardia Colon cancer COPD (chronic obstructive pulmonary disease) Depression Diabetes Former smoker GERD (gastroesophageal reflux disease) Hyperlipidemia Hypertension Migraines Obesity (BMI 30.0-34.9) Paranoid schizophrenia Schizophrenia Secondary pulmonary arterial hypertension Tracheitis Type I diabetes mellitus Home Medications topiramate 100 mg tablet 100 mg PO BID 03/01/17 [History Last Taken 12/06/18 09:00] hydrocortisone 2.5 % topical cream 1 applic topical DAILY 30 days ##30 10/31/17 [History Last Taken Unknown] insulin glargine 100 unit/mL (3 mL) subcutaneous pen (Lantus Solostar U-100 Insulin) 12 unit subcut QHS 10/31/17 [History Last Taken Unknown] thiothixene 2 mg capsule 2 mg PO DAILY 30 days ##30 10/31/17 [History Last Taken 12/04/17 05:30] trazodone 100 mg tablet 300 mg PO QHS 30 days ##90 10/31/17 [History Last Taken Unknown] glimepiride 4 mg tablet 4 mg PO DAILY 30 days ##30 11/01/17 [History Last Taken Unknown] amitriptyline 25 mg tablet 25 mg PO QHS 11/28/17 [History Last Taken Unknown] melatonin 5 mg-pyridoxine (vitamin B6) 1 mg tablet (Melatonin (with B6)) 2 ea POQHS 11/28/17 [History Last Taken Unknown] omeprazole 20 mg capsule,delayed release 20 mg PO DAILY 12/04/17 [History Last Taken 12/06/18 09:00] cariprazine 3 mg capsule 3 mg PO QHS mental status 12/04/18 [History Last Taken Unknown] fluphenazine HCl 1 mg tablet 1 mg PO QHS 12/04/18 [History Last Taken Unknown] guaifenesin 600 mg tablet, extended release 12 hr 600 mg PO TID 12/04/18 [History Last Taken 12/06/18 09:00] pravastatin 40 mg tablet 40 mg PO DAILY 12/04/18 [History Last Taken Unknown] tapentadol 75 mg tablet 75 mg PO TID pain 12/04/18 [History Last Taken 12/06/18 09:00] magnesium oxide 400 mg (241.3 mg magnesium) tablet 400 mg PO DAILY 04/16/19 [History Last Taken Unknown] hydrocortisone 2.5 % topical cream with perineal applicator 1 applic TN QHS PRN hemorrhoids #30 grams 05/17/21 [Rx Last Taken Unknown] Allergy/AdvReac Type Severity Reaction Status Date / Time azithromycin Allergy Rash Verified 06/01/22 15:53 Cephalosporins Allergy Rash Verified 06/01/22 15:53 goss [cherries] Allergy Angioedema Verified 06/01/22 15:53 codeine Allergy Rash Verified 06/01/22 15:53 diclofenac [Diclofenac] Allergy Rash Verified 06/01/22 15:53 hydrocodone bitartrate Allergy Rash Verified 06/01/22 15:53 [From Vicodin] hydromorphone HCl Allergy Rash Verified 06/01/22 15:53 [From Dilaudid] lemon Allergy Angioedema Verified 06/01/22 15:53 Penicillins Allergy Anaphylaxis Verified 06/01/22 15:53 Sulfa (Sulfonamide Allergy Rash Verified 06/01/22 15:53 Antibiotics) pear AdvReac NEEDS Verified 06/01/22 15:53 FOLLOW-UP soap AdvReac NEEDS Verified 06/01/22 15:53 FOLLOW-UP Family History Father Heart disease Other Thyroid disorder Surgical History Colostomy in place History of appendectomy History of colectomy History of partial colectomy Presence of cardiac pacemaker (09/28/16) Tracheostomy in place Social History (Updated 06/01/22 @ 16:[address] Jas Nunez MD) household members: spouse Smoking Status: Former smoker quit date: 08/27/10 pack-years: 45 substance use type: does not use and marijuana ROS ROS ED Constitutional Constitutional ED: Denies chills, fever(s), subjective or sweats Eyes Eyes: Denies blurry vision, change in vision or diplopia ENT ENT ED: Denies ear pain, rhinorrhea or sore throat Cardiovascular Cardiovascular: Denies chest pain or palpitations Respiratory/Chest Respiratory/Chest: Denies cough, dyspnea or dyspnea on exertion Gastrointestinal Gastrointestinal: Denies abdominal pain, nausea or vomiting Genitourinary Genitourinary ED: Denies dysuria, hematuria or urinary frequency Musculoskeletal Musculoskeletal: Denies arthralgias, back pain, myalgias or neck pain Integumentary Reports rash; Denies Abrasions Neurologic Neurologic: Denies headache(s), paresthesias or weakness Psychiatric Psychiatric: Denies anxiety or depression Endocrine Endocrinology: Reports cold intolerance and heat intolerance Hematologic/Lymphatic Hematologic/Lymphatic: Reports systems reviewed and no addt'l complaints, exceptas documented EXAM Physical Exam Const Vital Signs: 06/01/22 15:50 06/01/22 16:30 Temperature 98 F Temperature Source Temporal Pulse Rate 99 Respiratory Rate 18 Respiratory Effort Normal Respiratory Pattern Normal Blood Pressure 159/71 H Blood Pressure Mean 100 Pulse Ox 77 Oxygen Delivery Method Room Air Positive well nourished, well developed, obese and unkempt General Appearance ED: unkempt, well developed and NAD; Negative for cyanotic ordiaphoretic Nutritional Appearance: obese HEENT Reports moist mucous membranes HEENT Narrative: Atraumatic normocephalic. Ears normal. Posterior pharynx normal. Eyes PERRL and EOMs intact bilaterally Neck no lymphadenopathy, supple and no JVD Chest Wall inspection of chest normal and palpation of chest normal Resp normal respiratory effort and clear to auscultation bilaterally Cardio regular rate, regular rhythm, S1 normal heart sound, S2 normal heart sound and no murmurs GI normal to inspection, nondistended, normoactive bowel sounds Extremity normal to inspection Neuro oriented x3, CN's II-XII intact bilaterally and no sensory deficits noted Sensorium / Orientation: alert Psych Appearance: unkempt Mood & Affect: depressed Skin Skin Narrative: There is a correlation. 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 MDM MDM MDM Narrative Medical decision making narrative: We will assess if patient has hypothyroidism. Suspect patient's chronic pain isrelated to affective disorder, depression. History & Record Review Discussion w/independent historian: Patient Additional record(s) reviewed:: Prior ED visit and Prior labs Lab Data Attestation: I reviewed the patient's lab results. Lab results narrative: CBC is unremarkable. Basic metabolic panel is marked for sodium of 131. Potassium is 5.9. Creatinine is 1.09. With a GFR of 54. Glucose is elevated 243 with a CO2 and anion gap. Comment noted regarding elevated potassium. There was moderate hemolysis. Therefore no further testing is warranted. TSH is normal. Labs: Laboratory Results - last 24 hr 06/01/22 06/01/22 16:30 16:30 WBC 7.4 RBC 4.58 Hgb 12.6 Hct 43.1 MCV 94.1 MCH 27.5 MCHC 29.2 L RDW Std Deviation 47.3 H RDW Coeff of Gali 13.7 Plt Count 124 L MPV 10.3 Immature Gran % (Auto) 0.500 Neut % (Auto) 76.9 H Lymph % (Auto) 14.2 L Turner % (Auto) 7.2 Eos % (Auto) 0.9 Baso % (Auto) 0.3 Absolute Neuts (auto) 5.7 Absolute Lymphs (auto) 1.05 Nucleated RBC % 0 Sodium 131 L Potassium 5.9 H Chloride 106 Carbon Dioxide 22.0 Anion Gap 3 L BUN 14 Creatinine 1.09 H Estim Creat Clear Calc 47.54 Est GFR (MDRD) Af Amer 65 Est GFR (MDRD) Non-Af 54 L BUN/Creatinine Ratio 12.8 Glucose 243 H Calcium 8.8 TSH 2.37 Management Discussion w/another healthcare provider: silo worker/Case management (Talked with patient regarding her chronic pain and depression and care plan for administration of opiates. Case management informed me that she does not wish to talk to her regarding any affective disorder. I have been told by several nurses that wants to leave because the pharmacy her pre) Discharge Plan Triage Chief Complaint: Other, Pain/Inj ED Provider: Jas Nunez Dx/Rx/DC Orders Clinical Impression: Chronic pain disorder, Hypertension, History of fibromyalgia, Type 1 diabetes mellitus with hyperglycemia, Depression Instructions: Managing Chronic Pain Prescriptions: No Action glimepiride 4 mg tablet 4 mg PO DAILY 30 Days Qty: 30 Label Comments: hydrocortisone 2.5 % cream 1 applic TOPICAL DAILY 30 Days Qty: 30 Label Comments: thiothixene 2 mg capsule 2 mg PO DAILY 30 Days Qty: 30 Label Comments: trazodone 100 mg tablet 300 mg PO QHS 30 Days Qty: 90 Label Comments: insulin glargine [Lantus Solostar U-100 Insulin] 100 unit/mL (3 mL) insulin pen 12 unit SC QHS topiramate 100 mg tablet 100 mg PO BID Label Comments: 1 tablet every morning melatonin-pyridoxine (vit B6) [Melatonin (with B6)] 1 EACH tablet 2 ea PO QHS amitriptyline 25 MG tablet 25 mg PO QHS omeprazole 20 MG capsule 20 mg PO DAILY pravastatin 40 MG tablet 40 mg PO DAILY fluphenazine HCl 1 MG tablet 1 mg PO QHS tapentadol 75 MG tablet 75 mg PO TID cariprazine 3 MG capsule 3 mg PO QHS guaifenesin 600 MG tablet extended release 12hr 600 mg PO TID magnesium oxide 400 MG tablet 400 mg PO DAILY Label Comments: TAKE 1 TABLET BY MOUTH EVERY DAY hydrocortisone 2.5 % cream with perineal applicator 1 applic TN QHS PRN (Reason: hemorrhoids) Qty: 30 0RF Primary Care Provider: Tiff Pearson Referrals: Tiff Pearson MD [Primary Care Provider] - 3-5 Days Disposition Disposition: Home, Self Care What to do if you have Problems For any increased pain, shortness of breath, bleeding, nausea or vomiting, chestpain, or any unexpected problems, contact your Primary Care Provider. Call [facility] ([phone]) or report to the closest Emergency Room. Call 911 if necessary. 06/01/22 5927 <Electronically signed by Jas Nunez MD> Cosigner Signature (if applicable): CC: Dr. Tiff Pearson MD ~ Signed [facility] Work Phone: [phone]) 788-531003-28-2023 History of Present illness Narrative* Suzanna Escalante - 05/31/2022 2:44 PM EDT Last saw pcp: March 2022 Subjective: Patient [...] Objective: Patient presents to clinic ambulating in eaker Vasc: DP and PT pulses are palpable bilateral. CFT is less than 5 seconds bilateral. Skin temperature is warm to cool proximal to distal bilateral. There is no edema or varicosities noted. Neuro: Protective sensation is intact to the foot and toes when tested with the 5.07 SWM bilateral.Vibratory sensation is decreased at the hallux IPJ [...] RTC in 3-4 months. Suzanna Escalante DPM * Michael Sandoval RN - 05/31/2022 2:30 PM EDT Patient presents with: Left Foot - Established Patient, Follow Up, Diabetic Foot Care Right Foot - Established Patient, Follow Up, Diabetic Foot Care Patient presents for follow up for nail care. States has some pain but it is mostly at night. documented in this encounterK[facility]03-28-2023 Instructions* Patient Instructions* Suzanna Boris - 05/31/2022 2:44 PM EDT Diabetes Foot [...] it. Apply a bandage and wear a differentpair of shoes. Take Care of Your Toenails Cut toenails after bathing, when they are soft. Cut toenails straight across and smooth with a nail file. Avoid cutting into the corners of toes. Do not cut cuticles. If you have neuropathy (or decreased sensation in your feet) a reverse engineer should always cut your toenails. Be Careful [...] make sure there are no foreign objects orrough areas. Avoid tight socks. Wear natural-fiber socks [...] Go to your health care provider or reverse engineer to treat these conditions. documented in this encounterK[facility]02-25-2023 History of Present illness Narrative* Jacklyn Freitas PA-C - 04/30/2022 12:57 PM EST This note was created using iLyngoriter. Subjective Gutierrez Hobson is a 61 year old female. HPI Patient presents with the chief complaint of cough and congestion since this morning. She has felt short of breath and wheezy. She has a history of COPD, diabetes, heart block, previous tracheostomy.No temp taken at home. She is 99.5 here. She did not take any fever reducers today. is sickwith similar symptoms. Her chest does hurt from [...] Asthma Bowel disease Colon polyps Bowel obstruction ([facility]) 02/24/2015 Presented to hospital with obstruction, now status post exploratory laparotomy on Feb 23, 2015 withresection of small bowel, and ventral hernia repair, left with fascia open but skin closed History of multiple abdominal surgeries making case very difficult, now with 2 anastamosis sites, unable to close fascia Enteric contents from midline incision 03/06/2015 CT abd 03/[address] abd 03/11unchanged, persistent but stable enteric leak -- continue medical management of leak with antibiotics, NPO, drain, and TPN on transfer to [facility] Chronic obstructive pulmonary disease (COPD) ([facility]) 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 02/05/2010 Diabetes ([facility]) 1999 On insulin 2015 Dyslipidemia Encephalopathy in [...] in limb 02/05/2010 Paranoid schizophrenia, chronic condition ([facility]) 1985 Peptic ulcer, unspecified site, unspecified as [...] follow daily CBC and coags S/P colostomy ([facility]) SBO (small bowel obstruction) ([facility]) 09/11/2016 Skin lesion 03/09/2015 Skin sloughing on LEs with blisters, indeterminate purple lesions on back -> now improving Per Dermatology consult: linear erosions are most likely irritant contact dermatitis or pressure inducederosions. In addition there are small edema bullae on the abdominal wall Both require gentle wound care and emollients such as aquaphor or petroleum jelly -- monitor Tracheostomy in place ([facility]) Placed 2015 after prolonged respiratory failure, unable to liberate from vent. 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 Dx: E11.65 Insulin: [id number] Each 11 ipratropium-albuterol (DUONEB) 0.5 mg-3 mg(2.5 [...] as directed for treatment of asthma). 1 Each0 Nebulizer Accessories [facility] Needs new nebulizer mask, hose and supplies. (J45.20) Intermittent asthma without complication 1 Each 0 prednisoLONE acetate (PRED FORTE) 1 % ophthalmic suspension Use 1 Drop in the right eye four times daily. 15 mL 0 blood sugar diagnostic (TRUE METRIX GLUCOSE TEST STRIP) test strip Check blood sugar 4 times daily.DX: E11.65. Insulin : yes 150 Each 11 [...] over 200. 45 tablet 11 Blood-Glucose Meter (Windation VERIO METER) Test blood sugar 4 times daily. Dx: Type 2 DM. Uncontrolled . Insulin: yes. 1 Each 0 blood sugar diagnostic (ONETOUCH VERIO TEST STRIPS) test strip Test blood sugar 4 times daily. Dx: Type 2 DM. Uncontrolled . Insulin: yes 150 Strip 11 Zinc Oxide 40 % oint Apply to affected area as needed. 57 g 3 Ostomy Supplies (ADHESIVE REMOVER WIPES) swab All Care brand. Use as directed Each 5 fluPHENAZine (PROLIXIN) 1 mg tablet [...] Insulin: Yes 150 Strip 11 Nebulizer Accessories [facility] Needs new nebulizer mask, hose and supplies. [...] - Uncontrolled Insulin: Yes 150 Strip 11 melatonin 3 mg Take 2 tablets by mouth daily at bedtime. (Patient taking differently: Take 10 mg bymouth daily at bedtime.) 0 VRAYLAR 3 mg cap Take 3 mg by mouth daily at bedtime. white petrolatum-mineral oil (EUCERIN) cream Apply 1 application to affected area as needed for DrySkin (all dry skin areas). 120 g 1 [...] per episode of rash. 28 g 2 ipcdeceefbBROBM-mraddv-ldjrjvjje (BMX 1:1:1) 1:1:1 liqd Mix in equal amounts - 1 T every 2hrs as needed for mouth pain, Swish/swallow or expectorate. (8oz) 240 mL 0 metroNIDAZOLE (FLAGYL) 500 mg tablet Take 1 tablet by mouth three times daily. May extend course asdirected or take for recurrent infection as directed [...] warrant one. Doxycycline rx as safety net. Jacklyn Freitas PA-C documented in this encounterK[facility]02-21-2023 Miscellaneous Notes* Telephone Encounter - Michael Veloz RN - 04/26/2022 12:35 PM EST Patient has been identified by name and [...] Value 06/09/2020 13 Please advise. Thank you. Michael Veloz RN documented in this encounterK[facility]11-03-2022 Miscellaneous Notes* Telephone Encounter - Sohan Parrish RN - 01/06/2022 5:15 PM EDT Patient calling to ask about the med she was prescribed at [facility] today. Patient denies any new or worsening symptoms of which a provider is not aware: Yes. Pt states, I was prescribed a medicine for mouth pain. It was sent over to the [facility] pharmacy, but their computers are down. We're at the [facility] now, and we need to know the name of the medicine. Informed pt that the med sent over to the [facility] pharmacy today is BMX. Pt talking with [facility] pharmacist while parlor chaperone with Nurse Evens. Pharmacist stated, we will get the prescription transfer from the [facility] pharmacy. documented in this encounterKet[facility]11-03-2022 History of Present illness Narrative* Cathy Lawler APRN.DAVIDE - 01/06/2022 4:17 PM EDT Images from the original note were not included. Subjective Patient came in with complaints of sores on the roof of her mouth. Patient says its only been thereabout 3 days. Patient is not sure if she burned it or injured it with food. Patient does not wear any dentures. Patient says she is never had this before. Patient denies any other symptoms with it. The history is provided by the patient. No historical interpreter was used. Review of Systems Constitutional: Negative. 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 02/05/2010 Diabetes ([facility]) 1999 On insulin 2015 Dyslipidemia Encephalopathy in [...] in limb 02/05/2010 Paranoid schizophrenia, chronic condition ([facility]) 1985 Peptic ulcer, unspecified site, unspecified as [...] follow daily CBC and coags S/P colostomy ([facility]) SBO (small bowel obstruction) ([facility]) 09/11/2016 Skin lesion 03/09/2015 Skin sloughing on LEs with blisters, indeterminate purple lesions on back -> now improving Per Dermatology consult: linear erosions are most likely irritant contact dermatitis or pressure inducederosions. In addition there are small edema bullae on the abdominal wall Both require gentle wound care and emollients such as aquaphor or petroleum jelly -- monitor Tracheostomy in place ([facility]) Placed 2015 after prolonged respiratory failure, unable to liberate from vent. 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 metroNIDAZOLE (FLAGYL) 500 mg tablet Take 1 tablet by mouth three times daily. May extend course asdirected or take for recurrent infection as directed [...] directed for treatment of asthma). Nebulizer Accessories [facility] Needs new nebulizer mask, hose and supplies. (J45.20) Intermittent asthma without complication benzonatate (TESSALON PERLES) 100 mg capsule Take 1-2 capsules by mouth three times daily as needed. prednisoLONE acetate (PRED FORTE) 1 % ophthalmic suspension Use 1 Drop in the right eye four times daily. blood sugar diagnostic (TRUE METRIX GLUCOSE TEST STRIP) test strip Check blood sugar 4 times daily.DX: E11.65. Insulin : yes vancomycin 25 mg/mL [...] - Uncontrolled E11.65 Insulin: Yes [facility] nebul[facility] mask, hose and supplies. [...] bedtime. (Patient taking differently: Take 10 mg bymouth daily at bedtime.) VRAYLAR 3 mg cap Take 3 mg by mouth daily at bedtime. white petrolatum-mineral oil (EUCERIN) cream Apply 1 application to affected area as needed for DrySkin (all dry skin areas). mqrwuxilbcBHEWH-pwwmbo-slacsrdbv (BMX 1:1:1) 1:1:1 liqd Mix in equal [...] Patient was okay with this care plan. aCthy Lawler APRN.DAVIDE documented in this encounterKet[facility]10-25-2022 Miscellaneous Notes* Telephone Encounter - Quiana Jett RN - 12/28/2021 9:24 AM EDT Last Appointment: 02/15/2021 Future Appt: None Requested [...] you. Quiana Jett RN documented in this encounterKet[facility]08-25-2022 History of Present illness Narrative* Suzanna Halldamian - 10/28/2021 1:37 PM EDT Last saw Ousmane Smith 08/17/21 Subjective: Patient [...] toes when tested with the 5.07 SWM bilateral.Vibratory sensation is decreased at the hallux IPJ [...] diabetic foot care along with proper diet andkeeping their blood sugar under control to prevent complications. Compression stockings ordered for lower extremity swelling. Patient is to RTC in 3-4 months. Suzanna Escalante DPM * Samaria Ruano RN - 10/28/2021 1:33 PM EDT AMB ROOMING INTAKE FLOWSHEET DATA Risk Screening Do you have concerns about personal safety or safety in the home?: No Patient presents with: Left Foot - Established Patient, Diabetic Foot Care Right Foot - Established Patient, Diabetic Foot Care documented in this encounterKet[facility]08-25-2022 Instructions* Patient Instructions* Suzanna Escalante - 10/28/2021 1:37 PM EDT [...] it. Apply a bandage and wear a differentpair of shoes. Take Care of Your Toenails Cut toenails after bathing, when they are soft. Cut toenails straight across and smooth with a nail file. Avoid cutting into the corners of toes. Do not cut cuticles. If you have neuropathy (or decreased sensation in your feet) a reverse engineer should always cut your toenails. Be Careful [...] make sure there are no foreign objects orrough areas. Avoid tight socks. Wear natural-fiber socks [...] Go to your health care provider or reverse engineer to treat these conditions. documented in this encounterK[facility]08-11-2022 Miscellaneous Notes* Telephone Encounter - Tiff Pearson MD - 10/14/2021 10:48 AM EDT Okayed * Telephone Encounter - Darcy Sequeira RN - 10/14/2021 9:36 AM EDT Patient calling to check on status of request from yesterday. Asking if message can be sent to Esteban Gabriel for possible review. Patient states I have to have that medicine. Please call patient with update. Thank you. * Telephone Encounter - Darcy Sequeira RN - 10/13/2021 2:28 PM EDT Patient calling and reports having anal leakage since yesterday, which she states she has at times and that Dr. Pearson knows about this. She is requesting a refill of her Flagyl which she states isusually ordered for her when she has this issue. Script pended for review. Please update patient. Thank you. documented in this encounterKet[facility]08-11-2022 Miscellaneous Notes* Telephone Encounter - Michael Veloz RN - 10/14/2021 10:00 AM EDT They had also asked about Flagyl, but [...] Value 06/09/2020 13 Please advise. Thank you. Michael Veloz RN documented in this encounterKettering [facility]07-01-2022 History of Present illness Narrative* Milton Nazario RN - 09/03/2021 4:02 PM EDT [facility] Enrollment Provider Action/FYI: Call to Pt left a message related to COPD Chronic Disease Management Enrollment. called back, was not available to talk, he will call [facility] for transportation services for Appt and provided phone number for [facility] if needed. Patient referred by: TCM Contact made with patient: No - 2nd attempt to reach patient, left another message: Hi my name is Mansi Rose RN and I am calling [facility] the [facility] on behalf of your PCP, Tiff Pearson MD. We are excited to share with you a new program to help you manage your health. Please call me back at [phone]. I hope you can take the time to speak with me. (Keep encounter open for additional two business days in case patient calls back. Close encounter if no response by end of ) Closing: Could not reach the patient after two attempted outreaches. Millinery Blocker to retry patient in one week. END OUTREACH Mansi Rose RN September 03, 2021 4:02 PM * Milton Nazario RN - 09/01/2021 3:44 PM EDT [facility] Enrollment Provider Action/FYI: Call to Pt left a message related to COPD Chronic Disease Management Enrollment Patient referred by: TCM Contact made with patient: No - Left Message: Hi my name is Mansi Rose RN and I am calling [facility] the [facility] on behalf of your PCP, Tiff Pearson MD. We are excited to share with you a new program to help you manage your health. Please call me back at [phone] between the hours of 8am-5pm Monday-Monday. You will receive another phone call from me within the next two days. I hope you can take the time to speak with me. (Keep encounter open and attempt 2nd outreach in two business days from today) END OUTREACH Mansi Rose RN September 02, 2021 12:37 PM documented in this encounterKettering [facility]06-29-2022 History of Present illness Narrative* Fernanda Yoo RN - 09/01/2021 1:50 PM EDT TRANSITION CARE MANAGEMENT (TCM) FOLLOW-UP NOTE Provider Action/FYI Chart reviewed. Spoke with patient, denies pain, denies sob, no N/V/D, no fever or chills, states she did not follow-up with ophthalmology appts due to not having a ride-lives in [place]. Gave patient number to eye clinic to schedule appt. Order placed for CDM to follow patient for COPD. Patient identified by name and date of : YES Spoke to patient Summary: Pt discharged from [facility] on 08/05/21. Admitted for: right eye pain and redness PMH: diabetes, COPD, dyslipidemia, complex abdominal surgical history, schizophrenia, GERD Millinery Blocker plan for next outreach: No further follow up needed at this time Signature Fernanda Yoo RN September 01, 2021 documented in this encounterKet[facility]06-27-2022 Miscellaneous Notes* Telephone Encounter - Tiff Pearson MD - 08/30/2021 1:02 PM EDT The following approved medication requests have been [...] NUBIA: No Authorizing Provider: TIFF PEARSON MD * Telephone Encounter - Michael Veloz RN - 08/30/2021 9:24 AM EDT Patient has been identified by name and [...] Value 06/09/2020 13 Please advise. Thank you. Michael Veloz RN documented in this encounterKettering [facility]06-20-2022 History of Present illness Narrative* Fernanda Yoo RN - 08/23/2021 2:37 PM EDT TRANSITION CARE MANAGEMENT (TCM) FOLLOW-UP NOTE Provider Action/FYI Chart reviewed. Spoke with patient, denies pain, denies sob, tolerating diet, no dizziness/lightheadedness, no N/V/D, states she feels good. Will continue to follow. Patient identified by name and date of : YES Spoke to patient Summary: Pt discharged from [facility] on 08/05/21. Admitted for: right eye pain and redness PMH: diabetes, COPD, dyslipidemia, complex abdominal surgical history, schizophrenia, GERD Millinery Blocker plan for next outreach: Will continue to follow. Signature Tamela Yoo RN, BSN, CCM, MHA Primary Care Instrument Panel Assembler [facility] August 23, 2021 documented in this encounterKettering [facility]06-15-2022 Miscellaneous Notes* Telephone Encounter - Zenaida Donnelly Ma - 08/18/2021 1:20 PM EDT Pt notified and voiced understanding. Zenaida Donnelly Ma * Telephone Encounter - Zenaida Donnelly Ma - 08/18/2021 1:16 PM EDT ----- Message from Ousmane Smith APRN.CNP sent at 08/17/2021 4:16 PM EDT ----- Please inform the patient that her chest x-ray was normal, no evidence of pneumonia. Ousmane Smith CNP documented in this encounterKettering Health [facility]06-14-2022 History of Present illness Narrative* Ousmane Smith APRN.CNP - 08/17/2021 2:00 PM EDT Telemedicine Visit - Distance Health Virtual Visit Note Patient seen on Telephone platform due to lack of power at facility or power at the patient's residence. Patient stating a tree is in their driveway. Location of patient: [place] Tiff Pearson MD History of Present Illness Gutierrez Hobson is a 60 year old year old female who presents for follow up. Patient presented to [facility] on 08/09/2021 for 3 days of cough, [...] No more sore throat. No chest pain, shortnessof breath or syncope. Patient does have multiple allergies to antibiotics. PAST MEDICAL HISTORY Diagnosis Date Acute anaphylaxis 09/15/2016 Acute peptic ulcer, unspecified site, without mention of hemorrhage, perforation, or obstruction 1999 Asthma Bowel disease Colon polyps Bowel obstruction ([facility]) 02/24/2015 Presented to hospital with obstruction, now status post exploratory laparotomy on Feb 23, 2015 withresection of small bowel, and ventral hernia repair, left with fascia open but skin closed History of multiple abdominal surgeries making case very difficult, now with 2 anastamosis sites, unable to close fascia Enteric contents from midline incision 03/06/2015 CT abd 03/[address] abd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 in this encounterKettering Health [facility]03-28-2022 Instructions* Patient Instructions* Carol Raines - 05/31/2021 2:42 PM EDT The following instructions are important for you related to your office visit today with the [facility]. Please return for follow up in the office in 2 Weeks. If you note any additional difficulties, questions, or concerns, you should contact our office immediately @ [phone] and ask to be transferred to the General Surgery department. [facility]* Diagnosis Onset Date Resolution Status Bradycardia chronic Presence of cardiac pacemaker September 28, 2016 [facility] Work Phone: [phone]) 309-711004-27-2016 History of Past illness Narrative* Problem Noted [...] Empiric Bactrim in 12-11: culture showed mixed lilia CXR negative in 05-12 Tobacco use disorder 10/11/2004 11/18/2011 Overview: Declined assistance with smoking cessation at this time for cost issues as of 12-11 PFTs 05-12: NL ratio, TLC in the 80% range, NL BONITA/VA (restriction secondary to weight) Started patches in 07-12 Quit documented as of this encounter (statuses as of 06/07/2021) [facility] History of Past illness Narrative* Problem Noted [...] [facility] 02/25/2013 Overview: Empiric Bactrim in 12-11: culture showed mixed lilia CXR negative in 05-12 Tobacco use disorder 10/11/2004 11/18/2011 Overview: Declined assistance with smoking cessation at this time for cost issues as of 12-11 PFTs 05-12: NL ratio, TLC in the 80% range, NL BONITA/VA (restriction secondary to weight) Started patches in 07-12 Quit documented as of this encounter (statuses as of 06/08/2021) [facility] History of Past illness Narrative* Problem Noted [...] Empiric Bactrim in 12-11: culture showed mixed lilia CXR negative in 05-12 Tobacco use disorder 10/11/2004 11/18/2011 Overview: Declined assistance with smoking cessation at this time for cost issues as of 12-11 PFTs 05-12: NL ratio, TLC in the 80% range, NL BONITA/VA (restriction secondary to weight) Started patches in 07-12 Quit documented as of this encounter (statuses as of 06/15/2021) [facility] History of Past illness Narrative* Problem Noted [...] Empiric Bactrim in 12-11: culture showed mixed lilia CXR negative in 05-12 Tobacco use disorder 10/11/2004 11/18/2011 Overview: Declined assistance with smoking cessation at this time for cost issues as of 12-11 PFTs 05-12: NL ratio, TLC in the 80% range, NL BONITA/VA (restriction secondary to weight) Started patches in 07-12 Quit documented as of this encounter (statuses as of 06/17/2021) [facility] of Past illness Narrative* Problem Noted [...] Empiric Bactrim in 12-11: culture showed mixed lilia CXR negative in 05-12 Tobacco use disorder 10/11/2004 11/18/2011 Overview: Declined assistance with smoking cessation at this time for cost issues as of 12-11 PFTs 05-12: NL ratio, TLC in the 80% range, NL BONITA/VA (restriction secondary to weight) Started patches in 07-12 Quit documented as of this encounter (statuses as of 06/24/2021) [facility] of Past illness Narrative* Problem Noted [...] Empiric Bactrim in 12-11: culture showed mixed lilia CXR negative in 05-12 Tobacco use disorder 10/11/2004 11/18/2011 Overview: Declined assistance with smoking cessation at this time for cost issues as of 12-11 PFTs 3-09: NL ratio, TLC in the 80% range, NL BONITA/VA (restriction secondary to weight) Started patches in 07-12 Quit documented as of this encounter (statuses as of 06/25/2021) [facility] of Past illness Narrative* Problem Noted [...] Routine general medical exam ination at a [facility] facility 11/14/2006 02/25/2013 Overview: Empiric Bactrim in 12-11: culture showed mixed lilia CXR negative in 05-12 Tobacco use disorder 10/11/2004 11/18/2011 Overview: Declined assistance with smoking cessation at this time for cost issues as of 12-11 PFTs 05-12: NL ratio, TLC in the 80% range, NL BONITA/VA (restriction secondary to weight) Started patches in 07-12 Quit documented as of this encounter (statuses as of 06/25/2021) [facility] of Past illness Narrative* Problem Noted [...] Empiric Bactrim in 12-11: culture showed mixed lilia CXR negative in 05-12 Tobacco use disorder 10/11/2004 11/18/2011 Overview: Declined assistance with smoking cessation at this time for cost issues as of 12-11 PFTs 05-12: NL ratio, TLC in the 80% range, NL BONITA/VA (restriction secondary to weight) Started patches in 07-12 Quit documented as of this encounter (statuses as of 07/20/2021) [facility] of Past illness Narrative* Problem Noted [...] Empiric Bactrim in 12-11: culture showed mixed lilia CXR negative in 05-12 Tobacco use disorder 10/11/2004 11/18/2011 Overview: Declined assistance with smoking cessation at this time for cost issues as of 12-11 PFTs 05-12: NL ratio, TLC in the 80% range, NL BONITA/VA (restriction secondary to weight) Started patches in 5-09 Quit documented as of this encounter (statuses as of 08/03/2021) [facility] of [facility] illness Narrative* Problem Noted [...] Empiric Bactrim in 12-11: culture showed mixed lilia CXR negative in 05-12 Tobacco use disorder 10/11/2004 11/18/2011 Overview: Declined assistance with smoking cessation at this time for cost issues as of 12-11 PFTs 05-12: NL ratio, TLC in the 80% range, NL BONITA/VA (restriction secondary to weight) Started patches in 07-12 Quit documented as of this encounter (statuses as of 08/04/2021) [facility] of [facility] illness Narrative* Problem Noted [...] Empiric Bactrim in 12-11: culture showed mixed lilia CXR negative in 05-12 Tobacco use disorder 10/11/2004 11/18/2011 Overview: Declined assistance with smoking cessation at this time for cost issues as of 12-11 PFTs 05-12: NL ratio, TLC in the 80% range, NL BONITA/VA (restriction secondary to weight) Started patches in 07-12 Quit documented as of this encounter (statuses as of 08/06/2021) [facility] of [facility] illness Narrative* Problem Noted [...] Empiric Bactrim in 12-11: culture showed mixed lilia CXR negative in 05-12 Tobacco use disorder 10/11/2004 11/18/2011 Overview: Declined assistance with smoking cessation at this time for cost issues as of 12-11 PFTs 05-12: NL ratio, TLC in the 80% range, NL BONITA/VA (restriction secondary to weight) Started patches in 07-12 Quit documented as of this encounter (statuses as of 08/06/2021) [facility] of Past illness Narrative* Problem Noted [...] [facility]2006 02/25/2013 Overview: Empiric Bactrim in 12-11: culture showed mixed lilia CXR negative in 05-12 Tobacco use disorder 10/11/2004 11/18/2011 Overview: Declined assistance with smoking cessation at this time for cost issues as of 12-11 PFTs 05-12: NL ratio, TLC in the 80% range, NL BONITA/VA (restriction secondary to weight) Started patches in 07-12 Quit documented as of this encounter (statuses as of 08/06/2021) [facility] of [facility] illness Narrative* Problem Noted [...] [facility]ine [facility] 11/14/2006 02/25/2013 Overview: Empiric Bactrim in 12-11: culture showed mixed lilia CXR negative in 05-12 Tobacco use disorder 10/11/2004 11/18/2011 Overview: Declined assistance with smoking cessation at this time for cost issues as of 12-11 PFTs 05-12: NL ratio, TLC in the 80% range, NL BONITA/VA (restriction secondary to weight) Started patches in 07-12 Quit documented as of this encounter (statuses as of 08/09/2021) [facility] of [facility] illness Narrative* Problem Noted [...] Empiric Bactrim in 12-11: culture showed mixed lilia CXR negative in 05-12 Tobacco use disorder 10/11/2004 11/18/2011 Overview: Declined assistance with smoking cessation at this time for cost issues as of 12-11 PFTs 05-12: NL ratio, TLC in the 80% range, NL BONITA/VA (restriction secondary to weight) Started patches in 07-12 Quit documented as of this encounter (statuses as of 08/10/2021) [facility] of [facility] illness Narrative* Problem Noted [...] Empiric Bactrim in 12-11: culture showed mixed lilia CXR negative in 05-12 Tobacco use disorder 10/11/2004 11/18/2011 Overview: Declined assistance with smoking cessation at this time for cost issues as of 12-11 PFTs 05-12: NL ratio, TLC in the 80% range, NL BONITA/VA (restriction secondary to weight) Started patches in 07-12 Quit documented as of this encounter (statuses as of 08/16/2021) [facility] of Past illness Narrative* Problem Noted [...] Empiric Bactrim in 12-11: culture showed mixed lilia CXR negative in 05-12 Tobacco use disorder 10/11/2004 11/18/2011 Overview: Declined assistance with smoking cessation at this time for cost issues as of 12-11 PFTs 05-12: NL ratio, TLC in the 80% range, NL BONITA/VA (restriction secondary to weight) Started patches in 07-12 Quit documented as of this encounter (statuses as of 08/17/2021) [facility] of [facility] illness Narrative* Problem Noted [...] Empiric Bactrim in 12-11: culture showed mixed lilia CXR negative in 05-12 Tobacco use disorder 10/11/2004 11/18/2011 Overview: Declined assistance with smoking cessation at this time for cost issues as of 12-11 PFTs 05-12: NL ratio, TLC in the 80% range, NL BONITA/VA (restriction secondary to weight) Started patches in 07-12 Quit documented as of this encounter (statuses as of 08/18/2021) [facility] of Past illness Narrative* Problem Noted [...] [facility]ine [facility]/2006 02/25/2013 Overview: Empiric Bactrim in 12-11: culture showed mixed lilia CXR negative in 05-12 Tobacco use disorder 10/11/2004 11/18/2011 Overview: Declined assistance with smoking cessation at this time for cost issues as of 12-11 PFTs 05-12: NL ratio, TLC in the 80% range, NL BONITA/VA (restriction secondary to weight) Started patches in 07-12 Quit documented as of this encounter (statuses as of 08/23/2021) [facility] of [facility] Narrative* Problem Noted [...] Empiric Bactrim in 12-11: culture showed mixed lilia CXR negative in 05-12 Tobacco use disorder 10/11/2004 11/18/2011 Overview: Declined assistance with smoking cessation at this time for cost issues as of 12-11 PFTs 05-12: NL ratio, TLC in the 80% range, NL BONITA/VA (restriction secondary to weight) Started patches in 07-12 Quit documented as of this encounter (statuses as of 08/30/2021) [facility] of Past illness Narrative* Problem Noted [...] per ID recommendations x 3 weeks thru 1/29 -- COPAT Completed Acute kidney injury 02/28/2015 [...] Empiric Bactrim in 12-11: culture showed mixed lilia CXR negative in 05-12 Tobacco use disorder 10/11/2004 11/18/2011 Overview: Declined assistance with smoking cessation at this time for cost issues as of 12-11 PFTs 05-12: NL ratio, TLC in the 80% range, NL BONITA/VA (restriction secondary to weight) Started patches in 07-12 Quit documented as of this encounter (statuses as of 09/01/2021) [facility] of [facility] illness Narrative* Problem Noted [...] Empiric Bactrim in 12-11: culture showed mixed lilia CXR negative in 05-12 Tobacco use disorder 10/11/2004 11/18/2011 Overview: Declined assistance with smoking cessation at this time for cost issues as of 12-11 PFTs 05-12: NL ratio, TLC in the 80% range, NL BONITA/VA (restriction secondary to weight) Started patches in 07-12 Quit documented as of this encounter (statuses as of 09/03/2021) [facility] of Past illness Narrative* Problem Noted [...] Empiric Bactrim in 12-11: culture showed mixed lilia CXR negative in 05-12 Tobacco use disorder 10/11/2004 11/18/2011 Overview: Declined assistance with smoking cessation at this time for cost issues as of 10-08 PFTs 3-09: NL ratio, TLC in the 80% range, NL BONITA/VA (restriction secondary to weight) Started patches in 07-12 Quit documented as of this encounter (statuses as of 09/06/2021) [facility] of Past illness Narrative* Problem Noted [...] Routine general medical exam ination at a the [facility] facility 11/14/2006 02/25/2013 Overview: Empiric Bactrim in 12-11: culture showed mixed lilia CXR negative in 05-12 Tobacco use disorder 10/11/2004 11/18/2011 Overview: Declined assistance with smoking cessation at this time for cost issues as of 12-11 PFTs 05-12: NL ratio, TLC in the 80% range, NL BONITA/VA (restriction secondary to weight) Started patches in 07-12 Quit documented as of this encounter (statuses as of 10/14/2021) [facility] of Past illness Narrative* Problem Noted [...] Empiric Bactrim in 12-11: culture showed mixed lilia CXR negative in 05-12 Tobacco use disorder 10/11/2004 11/18/2011 Overview: Declined assistance with smoking cessation at this time for cost issues as of 12-11 PFTs 05-12: NL ratio, TLC in the 80% range, NL BONITA/VA (restriction secondary to weight) Started patches in 07-12 Quit documented as of this encounter (statuses as of 10/14/2021) [facility] of Past illness Narrative* Problem Noted [...] Empiric Bactrim in 12-11: culture showed mixed lilia CXR negative in 05-12 Tobacco use disorder 10/11/2004 11/18/2011 Overview: Declined assistance with smoking cessation at this time for cost issues as of 12-11 PFTs 05-12: NL ratio, TLC in the 80% range, NL BONITA/VA (restriction secondary to weight) Started patches in 5-09 Quit documented as of this encounter (statuses as of 10/28/2021) [facility] of [facility] illness Narrative* Problem Noted [...] Routine general medical exam ination at a [facility] 11/14/2006 02/25/2013 Overview: Empiric Bactrim in 12-11: culture showed mixed lilia CXR negative in 05-12 Tobacco use disorder 10/11/2004 11/18/2011 Overview: Declined assistance with smoking cessation at this time for cost issues as of 12-11 PFTs 05-12: NL ratio, TLC in the 80% range, NL BONITA/VA (restriction secondary to weight) Started patches in 07-12 Quit documented as of this encounter (statuses as of 12/28/2021) [facility] Narrative* Problem Noted [...] Empiric Bactrim in 12-11: culture showed mixed lilia CXR negative in 05-12 Tobacco use disorder 10/11/2004 11/18/2011 Overview: Declined assistance with smoking cessation at this time for cost issues as of 12-11 PFTs 05-12: NL ratio, TLC in the 80% range, NL BONITA/VA (restriction secondary to weight) Started patches in 07-12 Quit documented as of this encounter (statuses as of 01/06/2022) [facility] of [facility] illness Narrative* Problem Noted [...] Empiric Bactrim in 12-11: culture showed mixed lilia CXR negative in 05-12 Tobacco use disorder 10/11/2004 11/18/2011 Overview: Declined assistance with smoking cessation at this time for cost issues as of 12-11 PFTs 05-12: NL ratio, TLC in the 80% range, NL BONITA/VA (restriction secondary to weight) Started patches in 07-12 Quit documented as of this encounter (statuses as of 01/06/2022) [facility] of Past illness Narrative* Problem Noted [...] Routine general medical exam ination at a [facility] facility 11/14/2006 02/25/2013 Overview: Empiric Bactrim in 12-11: culture showed mixed lilia CXR negative in 05-12 Tobacco use disorder 10/11/2004 11/18/2011 Overview: Declined assistance with smoking cessation at this time for cost issues as of 12-11 PFTs 05-12: NL ratio, TLC in the 80% range, NL BONITA/VA (restriction secondary to weight) Started patches in 07-12 Quit documented as of this encounter (statuses as of 04/26/2022) [facility] illness Narrative* Problem Noted [...] Routine general medical exam ination at a [facility] 11/14/2006 02/25/2013 Overview: Empiric Bactrim in 12-11: culture showed mixed lilia CXR negative in 05-12 Tobacco use disorder 10/11/2004 11/18/2011 Overview: Declined assistance with smoking cessation at this time for cost issues as of 12-11 PFTs 05-12: NL ratio, TLC in the 80% range, NL BONITA/VA (restriction secondary to weight) Started patches in 07-12 Quit documented as of this encounter (statuses as of 04/30/2022) [facility] of Past illness Narrative* Problem Noted [...] Empiric Bactrim in 12-11: culture showed mixed lilia CXR negative in 05-12 Tobacco use disorder 10/11/2004 11/18/2011 Overview: Declined assistance with smoking cessation at this time for cost issues as of 12-11 PFTs 05-12: NL ratio, TLC in the 80% range, NL BONITA/VA (restriction secondary to weight) Started patches in 07-12 Quit documented as of this encounter (statuses as of 05/31/2022) [facility] of Past illness Narrative* Problem Noted [...] Routine [facility] 11/14/2006 02/25/2013 Overview: Empiric Bactrim in 12-11: culture showed mixed lilia CXR negative in 05-12 Tobacco use disorder 10/11/2004 11/18/2011 Overview: Declined assistance with smoking cessation at this time for cost issues as of 12-11 PFTs 05-12: NL ratio, TLC in the 80% range, NL BONITA/VA (restriction secondary to weight) Started patches in 07-12 Quit documented as of this encounter (statuses as of 06/07/2022) [facility] of Past illness Narrative* Problem Noted [...] Empiric Bactrim in 12-11: culture showed mixed lilia CXR negative in 05-12 Tobacco use disorder 10/11/2004 11/18/2011 Overview: Declined assistance with smoking cessation at this time for cost issues as of 12-11 PFTs 05-12: NL ratio, TLC in the 80% range, NL BONITA/VA (restriction secondary to weight) Started patches in 07-12 Quit documented as of this encounter (statuses as of 06/08/2022) [facility] of Past illness Narrative* Problem Noted [...] Empiric Bactrim in 12-11: culture showed mixed lilia CXR negative in 05-12 Tobacco use disorder 10/11/2004 11/18/2011 Overview: Declined assistance with smoking cessation at this time for cost issues as of 12-11 PFTs 05-12: NL ratio, TLC in the 80% range, NL BONITA/VA (restriction secondary to weight) Started patches in 07-12 Quit documented as of this encounter (statuses as of 06/10/2022) [facility] Narrative* Problem Noted [...] Empiric Bactrim in 12-11: culture showed mixed lilia CXR negative in 05-12 Tobacco use disorder 10/11/2004 11/18/2011 Overview: Declined assistance with smoking cessation at this time for cost issues as of 12-11 PFTs 05-12: NL ratio, TLC in the 80% range, NL BONITA/VA (restriction secondary to weight) Started patches in 07-12 Quit documented as of this encounter (statuses as of 06/13/2022) [facility] Narrative* Problem Noted [...] Empiric Bactrim in 12-11: culture showed mixed lilia CXR negative in 05-12 Tobacco use disorder 10/11/2004 11/18/2011 Overview: Declined assistance with smoking cessation at this time for cost issues as of 12-11 PFTs 05-12: NL ratio, TLC in the 80% range, NL BONITA/VA (restriction secondary to weight) Started patches in 07-12 Quit documented as of this encounter (statuses as of 06/14/2022) [facility] of Past illness Narrative* Problem Noted [...] Routine general medical exam ination at a [facility] 11/14/2006 02/25/2013 Overview: Empiric Bactrim in 12-11: culture showed mixed lilia CXR negative in 05-12 Tobacco use disorder 10/11/2004 11/18/2011 Overview: Declined assistance with smoking cessation at this time for cost issues as of 12-11 PFTs 05-12: NL ratio, TLC in the 80% range, NL BONITA/VA (restriction secondary to weight) Started patches in 07-12 Quit documented as of this encounter (statuses as of 06/24/2022) [facility] of Past illness Narrative* Problem Noted [...] Empiric Bactrim in 12-11: culture showed mixed lilia CXR negative in 05-12 Tobacco use disorder 10/11/2004 11/18/2011 Overview: Declined assistance with smoking cessation at this time for cost issues as of 12-11 PFTs 05-12: NL ratio, TLC in the 80% range, NL BONITA/VA (restriction secondary to weight) Started patches in 07-12 Quit documented as of this encounter (statuses as of 06/25/2022) [facility] History of Past illness Narrative* Problem Noted [...] Empiric Bactrim in 12-11: culture showed mixed lilia CXR negative in 05-12 Tobacco use disorder 10/11/2004 11/18/2011 Overview: Declined assistance with smoking cessation at this time for cost issues as of 12-11 PFTs 05-12: NL ratio, TLC in the 80% range, NL BONITA/VA (restriction secondary to weight) Started patches in 07-12 Quit documented as of this encounter (statuses as of 06/29/2022) [facility] of Past illness Narrative* Problem Noted [...] Routine general medical exam ination at a [facility] 11/14/2006 02/25/2013 Overview: Empiric Bactrim in 12-11: culture showed mixed lilia CXR negative in 05-12 Tobacco use disorder 10/11/2004 11/18/2011 Overview: Declined assistance with smoking cessation at this time for cost issues as of 12-11 PFTs 05-12: NL ratio, TLC in the 80% range, NL BONITA/VA (restriction secondary to weight) Started patches in 07-12 Quit documented as of this encounter (statuses as of 07/06/2022) [facility] of Past illness Narrative* Problem Noted [...] Empiric Bactrim in 12-11: culture showed mixed lilia CXR negative in 05-12 Tobacco use disorder 10/11/2004 11/18/2011 Overview: Declined assistance with smoking cessation at this time for cost issues as of 12-11 PFTs 05-12: NL ratio, TLC in the 80% range, NL BONITA/VA (restriction secondary to weight) Started patches in 07-12 Quit documented as of this encounter (statuses as of 07/20/2022) [facility] History of Past illness Narrative* Problem Noted [...] Empiric Bactrim in 12-11: culture showed mixed lilia CXR negative in 05-12 Tobacco use disorder 10/11/2004 11/18/2011 Overview: Declined assistance with smoking cessation at this time for cost issues as of 12-11 PFTs 05-12: NL ratio, TLC in the 80% range, NL BONITA/VA (restriction secondary to weight) Started patches in 07-12 Quit documented as of this encounter (statuses as of 08/25/2022) [facility] History of Past illness Narrative* Problem Noted [...] Routine [facility] 11/14/2006 02/25/2013 Overview: Empiric Bactrim in 12-11: culture showed mixed lilia CXR negative in 05-12 Tobacco use disorder 10/11/2004 012 Overview: Declined assistance with smoking cessation at this time for cost issues as of 12-11 PFTs 05-12: NL ratio, TLC in the 80% range, NL BONITA/VA (restriction secondary to weight) Started patches in 07-12 Quit documented as of this encounter (statuses as of 09/21/2022) [facility] of Past illness Narrative* Problem Noted [...] Empiric Bactrim in 12-11: culture showed mixed lilia CXR negative in 05-12 Tobacco use disorder 10/11/2004 012 Overview: Declined assistance with smoking cessation at this time for cost issues as of 12-11 PFTs 05-12: NL ratio, TLC in the 80% range, NL BONITA/VA (restriction secondary to weight) Started patches in 07-12 Quit documented as of this encounter (statuses as of 10/07/2022) [facility] History of Past illness Narrative* Problem Noted [...] Empiric Bactrim in 12-11: culture showed mixed lilia CXR negative in 05-12 Tobacco use disorder 10/11/2004 012 Overview: Declined assistance with smoking cessation at this time for cost issues as of 12-11 PFTs 05-12: NL ratio, TLC in the 80% range, NL BONITA/VA (restriction secondary to weight) Started patches in 07-12 Quit documented as of this encounter (statuses as of 10/08/2022) [facility]2016 History of Past illness Narrative* Problem Noted [...] Routine general medical exam ination at a the [facility] facility 11/14/2006 02/25/2013 Overview: Empiric Bactrim in 12-11: culture showed mixed lilia CXR negative in 05-12 Tobacco use disorder 10/11/2004 012 Overview: Declined assistance with smoking cessation at this time for cost issues as of 12-11 PFTs 05-12: NL ratio, TLC in the 80% range, NL BONITA/VA (restriction secondary to weight) Started patches in 07-12 Quit documented as of this encounter (statuses as of 10/25/2022) [facility]2016 History of Past illness Narrative* Problem Noted [...] Empiric Bactrim in 12-11: culture showed mixed lilia CXR negative in 05-12 Tobacco use disorder 10/11/2004 012 Overview: Declined assistance with smoking cessation at this time for cost issues as of 12-11 PFTs 05-12: NL ratio, TLC in the 80% range, NL BONITA/VA (restriction secondary to weight) Started patches in 07-12 Quit documented as of this encounter (statuses as of 11/02/2022) [facility]2016 History of Past illness Narrative* Problem Noted [...] Empiric Bactrim in 12-11: culture showed mixed lilia CXR negative in 05-12 Tobacco use disorder 10/11/2004 012 Overview: Declined assistance with smoking cessation at this time for cost issues as of 12-11 PFTs 05-12: NL ratio, TLC in the 80% range, NL BONITA/VA (restriction secondary to weight) Started patches in 07-12 Quit documented as of this encounter (statuses as of 11/17/2022) [facility]2016 History of Past illness Narrative* Problem Noted [...] Routine general medical exam ination at a [facility] facility 11/14/2006 02/25/2013 Overview: Empiric Bactrim in 12-11: culture showed mixed lilia CXR negative in 05-12 Tobacco use disorder 10/11/2004 012 Overview: Declined assistance with smoking cessation at this time for cost issues as of 12-11 PFTs 05-12: NL ratio, TLC in the 80% range, NL BONITA/VA (restriction secondary to weight) Started patches in 07-12 Quit documented as of this encounter (statuses as of 11/18/2022) [facility]2016 History of Past illness Narrative* Problem Noted [...] Routine general medical exam ination at a the [facility] facility 11/14/2006 02/25/2013 Overview: Empiric Bactrim in 12-11: culture showed mixed lilia CXR negative in 05-12 Tobacco use disorder 10/11/2004 012 Overview: Declined assistance with smoking cessation at this time for cost issues as of 12-11 PFTs 05-12: NL ratio, TLC in the 80% range, NL BNOITA/VA (restriction secondary to weight) Started patches in 07-12 Quit documented as of this encounter (statuses as of 11/19/2022) [facility]2016 History of Past illness Narrative* Problem Noted [...] Empiric Bactrim in 12-11: culture showed mixed lilia CXR negative in 05-12 Tobacco use disorder 10/11/2004 012 Overview: Declined assistance with smoking cessation at this time for cost issues as of 12-11 PFTs 05-12: NL ratio, TLC in the 80% range, NL BONITA/VA (restriction secondary to weight) Started patches in 07-12 Quit documented as of this encounter (statuses as of 11/25/2022) [facility]2016 History of Past illness Narrative* Problem Noted [...] Empiric Bactrim in 12-11: culture showed mixed lilia CXR negative in 05-12 Tobacco use disorder 10/11/2004 012 Overview: Declined assistance with smoking cessation at this time for cost issues as of 12-11 PFTs 05-12: NL ratio, TLC in the 80% range, NL BONITA/VA (restriction secondary to weight) Started patches in 07-12 Quit documented as of this encounter (statuses as of 12/22/2022) [facility]2016 History of Past illness Narrative* Problem Noted [...] Empiric Bactrim in 12-11: culture showed mixed lilia CXR negative in 05-12 Tobacco use disorder 10/11/2004 012 Overview: Declined assistance with smoking cessation at this time for cost issues as of 12-11 PFTs 05-12: NL ratio, TLC in the 80% range, NL BONITA/VA (restriction secondary to weight) Started patches in 07-12 Quit documented as of this encounter (statuses as of 01/04/2023) [facility]2016 History of Past illness Narrative* Problem Noted [...] Empiric Bactrim in 12-11: culture showed mixed lilia CXR negative in 05-12 Tobacco use disorder 10/11/2004 012 Overview: Declined assistance with smoking cessation at this time for cost issues as of 12-11 PFTs 05-12: NL ratio, TLC in the 80% range, NL BONITA/VA (restriction secondary to weight) Started patches in 07-12 Quit documented as of this encounter (statuses as of 01/09/2023) [facility]2016 History of Past illness Narrative* Problem Noted [...] Routine general medical exam ination at a the [facility] 11/14/2006 02/25/2013 Overview: Empiric Bactrim in 12-11: culture showed mixed lilia CXR negative in 05-12 Tobacco use disorder 10/11/2004 012 Overview: Declined assistance with smoking cessation at this time for cost issues as of 12-11 PFTs 05-12: NL ratio, TLC in the 80% range, NL BONITA/VA (restriction secondary to weight) Started patches in 07-12 Quit documented as of this encounter (statuses as of 01/10/2023) [facility]2016 History of Past illness Narrative* Problem Noted [...] Empiric Bactrim in 12-11: culture showed mixed lilia CXR negative in 05-12 Tobacco use disorder 10/11/2004 012 Overview: Declined assistance with smoking cessation at this time for cost issues as of 12-11 PFTs 05-12: NL ratio, TLC in the 80% range, NL BONITA/VA (restriction secondary to weight) Started patches in 07-12 Quit documented as of this encounter (statuses as of 01/10/2023) [facility]2016 History of Past illness Narrative* Problem Noted [...] Empiric Bactrim in 12-11: culture showed mixed lilia CXR negative in 05-12 Tobacco use disorder 10/11/2004 012 Overview: Declined assistance with smoking cessation at this time for cost issues as of 12-11 PFTs 05-12: NL ratio, TLC in the 80% range, NL BONITA/VA (restriction secondary to weight) Started patches in 07-12 Quit documented as of this encounter (statuses as of 01/11/2023) [facility]2016 History of Past illness Narrative* Problem Noted [...] Empiric Bactrim in 12-11: culture showed mixed lilia CXR negative in 05-12 Tobacco use disorder 10/11/2004 012 Overview: Declined assistance with smoking cessation at this time for cost issues as of 12-11 PFTs 05-12: NL ratio, TLC in the 80% range, NL BONITA/VA (restriction secondary to weight) Started patches in 07-12 Quit documented as of this encounter (statuses as of 01/13/2023) [facility]2016 History of Past illness Narrative* Problem Noted [...] Routine general medical exam ination at a the [facility] 11/14/2006 02/25/2013 Overview: Empiric Bactrim in 12-11: culture showed mixed lilia CXR negative in 05-12 Tobacco use disorder 10/11/2004 012 Overview: Declined assistance with smoking cessation at this time for cost issues as of 12-11 PFTs 05-12: NL ratio, TLC in the 80% range, NL BONITA/VA (restriction secondary to weight) Started patches in 07-12 Quit documented as of this encounter (statuses as of 01/18/2023) [facility]2016 History of Past illness Narrative* Problem Noted [...] (patient with PCN and cephalosporin allergy) CT 2 with enteric leak and stable fluid collections [...] Empiric Bactrim in 12-11: culture showed mixed lilia CXR negative in 05-12 Tobacco use disorder 10/11/2004 012 Overview: Declined assistance with smoking cessation at this time for cost issues as of 12-11 PFTs 05-12: NL ratio, TLC in the 80% range, NL BONITA/VA (restriction secondary to weight) Started patches in 07-12 Quit documented as of this encounter (statuses as of 01/25/2023) [facility]2016 History of Past illness Narrative* Problem Noted [...] Routine general medical exam [facility]ation at a [facility] 11/14/2006 02/25/2013 Overview: Empiric Bactrim in 12-11: culture showed mixed lilia CXR negative in 05-12 Tobacco use disorder 10/11/2004 012 Overview: Declined assistance with smoking cessation at this time for cost issues as of 12-11 PFTs 05-12: NL ratio, TLC in the 80% range, NL BONITA/VA (restriction secondary to weight) Started patches in 07-12 Quit documented as of this encounter (statuses as of 02/04/2023) [facility]2016 History of Past illness Narrative* Problem Noted [...] Empiric Bactrim in 12-11: culture showed mixed lilia CXR negative in 05-12 Tobacco use disorder 10/11/2004 012 Overview: Declined assistance with smoking cessation at this time for cost issues as of 12-11 PFTs 05-12: NL ratio, TLC in the 80% range, NL BONITA/VA (restriction secondary to weight) Started patches in 07-12 Quit documented as of this encounter (statuses as of 02/08/2023) [facility]2016 History of Past illness Narrative* Problem Noted [...] Empiric Bactrim in 12-11: culture showed mixed lilia CXR negative in 05-12 Tobacco use disorder 10/11/2004 012 Overview: Declined assistance with smoking cessation at this time for cost issues as of 12-11 PFTs 05-12: NL ratio, TLC in the 80% range, NL BONITA/VA (restriction secondary to weight) Started patches in 07-12 Quit documented as of this encounter (statuses as of 02/10/2023) [facility]2016 History of Past illness Narrative* Problem Noted [...] Routine general medical exam ination at a [facility] 11/14/2006 02/25/2013 Overview: Empiric Bactrim in 12-11: culture showed mixed lilia CXR negative in 05-12 Tobacco use disorder 10/11/2004 012 Overview: Declined assistance with smoking cessation at this time for cost issues as of 12-11 PFTs 05-12: NL ratio, TLC in the 80% range, NL BONITA/VA (restriction secondary to weight) Started patches in 07-12 Quit documented as of this encounter (statuses as of 02/14/2023) [facility]2016 History of Past illness Narrative* Problem Noted [...] Empiric Bactrim in 12-11: culture showed mixed lilia CXR negative in 05-12 Tobacco use disorder 10/11/2004 012 Overview: Declined assistance with smoking cessation at this time for cost issues as of 12-11 PFTs 05-12: NL ratio, TLC in the 80% range, NL BONITA/VA (restriction secondary to weight) Started patches in 07-12 Quit documented as of this encounter (statuses as of 02/14/2023) [facility]2016 History of Past illness Narrative* Problem Noted [...] Empiric Bactrim in 12-11: culture showed mixed lilia CXR negative in 05-12 Tobacco use disorder 10/11/2004 012 Overview: Declined assistance with smoking cessation at this time for cost issues as of 12-11 PFTs 05-12: NL ratio, TLC in the 80% range, NL BONITA/VA (restriction secondary to weight) Started patches in 07-12 Quit documented as of this encounter (statuses as of 04/03/2023) [facility]2016 History of Past illness Narrative* Problem Noted [...] Routine general medical exam [facility]ation at a [facility] 11/14/2006 02/25/2013 Overview: Empiric Bactrim in 12-11: culture showed mixed lilia CXR negative in 05-12 Tobacco use disorder 10/11/2004 012 Overview: Declined assistance with smoking cessation at this time for cost issues as of 12-11 PFTs 05-12: NL ratio, TLC in the 80% range, NL BONITA/VA (restriction secondary to weight) Started patches in 07-12 Quit documented as of this encounter (statuses as of 04/10/2023) [facility]2016 History of Past illness Narrative* Problem Noted [...] Empiric Bactrim in 12-11: culture showed mixed lilia CXR negative in 05-12 Tobacco use disorder 10/11/2004 012 Overview: Declined assistance with smoking cessation at this time for cost issues as of 12-11 PFTs 05-12: NL ratio, TLC in the 80% range, NL BONITA/VA (restriction secondary to weight) Started patches in 07-12 Quit documented as of this encounter (statuses as of 04/13/2023) [facility]2016 History of Past illness Narrative* Problem Noted [...] Empiric Bactrim in 12-11: culture showed mixed lilia CXR negative in 05-12 Tobacco use disorder 10/11/2004 012 Overview: Declined assistance with smoking cessation at this time for cost issues as of 12-11 PFTs 05-12: NL ratio, TLC in the 80% range, NL BONITA/VA (restriction secondary to weight) Started patches in 07-12 Quit documented as of this encounter (statuses as of 04/14/2023) [facility]2016 History of Past illness Narrative* Problem Noted [...] Empiric Bactrim in 12-11: culture showed mixed lilia CXR negative in 05-12 Tobacco use disorder 10/11/2004 012 Overview: Declined assistance with smoking cessation at this time for cost issues as of 12-11 PFTs 05-12: NL ratio, TLC in the 80% range, NL BONITA/VA (restriction secondary to weight) Started patches in 07-12 Quit documented as of this encounter (statuses as of 04/14/2023) [facility]2016 History of Past illness Narrative* Problem Noted [...] Empiric Bactrim in 12-11: culture showed mixed lilia CXR negative in 05-12 Tobacco use disorder 10/11/2004 012 Overview: Declined assistance with smoking cessation at this time for cost issues as of 12-11 PFTs 05-12: NL ratio, TLC in the 80% range, NL BONITA/VA (restriction secondary to weight) Started patches in 07-12 Quit documented as of this encounter (statuses as of 04/17/2023) [facility]2016 History of Past illness Narrative* Problem Noted [...] Empiric Bactrim in 12-11: culture showed mixed lilia CXR negative in 05-12 Tobacco use disorder 10/11/2004 012 Overview: Declined assistance with smoking cessation at this time for cost issues as of 12-11 PFTs 05-12: NL ratio, TLC in the 80% range, NL BONITA/VA (restriction secondary to weight) Started patches in 07-12 Quit documented as of this encounter (statuses as of 04/19/2023) [facility]2016 History of Past illness Narrative* Problem Noted [...] Empiric Bactrim in 12-11: culture showed mixed lilia CXR negative in 05-12 Tobacco use disorder 10/11/2004 012 Overview: Declined assistance with smoking cessation at this time for cost issues as of 12-11 PFTs 05-12: NL ratio, TLC in the 80% range, NL BONITA/VA (restriction secondary to weight) Started patches in 07-12 Quit documented as of this encounter (statuses as of 04/25/2023) [facility]2016 History of Past illness Narrative* Problem Noted [...] Empiric Bactrim in 12-11: culture showed mixed lilia CXR negative in 05-12 Tobacco use disorder 10/11/2004 012 Overview: Declined assistance with smoking cessation at this time for cost issues as of 12-11 PFTs 05-12: NL ratio, TLC in the 80% range, NL BONITA/VA (restriction secondary to weight) Started patches in 07-12 Quit documented as of this encounter (statuses as of 04/26/2023) [facility]2016 History of Past illness Narrative* Problem Noted [...] Routine general medical exam ination at a the [facility] facility 11/14/2006 02/25/2013 Overview: Empiric Bactrim in 12-11: culture showed mixed lilia CXR negative in 05-12 Tobacco use disorder 10/11/2004 012 Overview: Declined assistance with smoking cessation at this time for cost issues as of 12-11 PFTs 05-12: NL ratio, TLC in the 80% range, NL BONITA/VA (restriction secondary to weight) Started patches in 07-12 Quit documented as of this encounter (statuses as of 04/27/2023) [facility]2016 History of Past illness Narrative* Problem Noted [...] Empiric Bactrim in 12-11: culture showed mixed lilia CXR negative in 05-12 Tobacco use disorder 10/11/2004 012 Overview: Declined assistance with smoking cessation at this time for cost issues as of 12-11 PFTs 05-12: NL ratio, TLC in the 80% range, NL BONITA/VA (restriction secondary to weight) Started patches in 07-12 Quit documented as of this encounter (statuses as of 05/01/2023) [facility]2016 History of Past illness Narrative* Problem Noted [...] Empiric Bactrim in 12-11: culture showed mixed lilia CXR negative in 05-12 Tobacco use disorder 10/11/2004 012 Overview: Declined assistance with smoking cessation at this time for cost issues as of 12-11 PFTs 3-: NL ratio, TLC in the 80% range, NL BONITA/VA (restriction secondary to weight) Started patches in 07-12 Quit documented as of this encounter (statuses as of 05/04/2023) [facility]2016 History of Past illness Narrative* Problem Noted [...] Routine general medical exam ination at a [facility] 11/14/2006 02/25/2013 Overview: Empiric Bactrim in 12-11: culture showed mixed lilia CXR negative in 05-12 Tobacco use disorder 10/11/2004 012 Overview: Declined assistance with smoking cessation at this time for cost issues as of 12-11 PFTs 05-12: NL ratio, TLC in the 80% range, NL BONITA/VA (restriction secondary to weight) Started patches in 07-12 Quit documented as of this encounter (statuses as of 05/05/2023) [facility] History of Past illness Narrative* Problem Noted [...] Empiric Bactrim in 12-11: culture showed mixed lilia CXR negative in 05-12 Tobacco use disorder 10/11/2004 012 Overview: Declined assistance with smoking cessation at this time for cost issues as of 12-11 PFTs 05-12: NL ratio, TLC in the 80% range, NL BONITA/VA (restriction secondary to weight) Started patches in 07-12 Quit documented as of this encounter (statuses as of 05/05/2023) [facility] History of Past illness Narrative* Problem Noted [...] Empiric Bactrim in 12-11: culture showed mixed lilia CXR negative in 05-12 Tobacco use disorder 10/11/2004 012 Overview: Declined assistance with smoking cessation at this time for cost issues as of 10-08 PFTs 3-09: NL ratio, TLC in the 80% range, NL BONITA/VA (restriction secondary to weight) Started patches in 07-12 Quit documented as of this encounter (statuses as of 05/17/2023) [facility] History of Past illness Narrative* Problem Noted [...] Routine general medical exam [facility]ation at a [facility] 11/14/2006 02/25/2013 Overview: Empiric Bactrim in 12-11: culture showed mixed lilia CXR negative in 05-12 Tobacco use disorder 10/11/2004 012 Overview: Declined assistance with smoking cessation at this time for cost issues as of 12-11 PFTs 05-12: NL ratio, TLC in the 80% range, NL BONITA/VA (restriction secondary to weight) Started patches in 07-12 Quit documented as of this encounter (statuses as of 05/23/2023) [facility] History of Past illness Narrative* Problem Noted [...] Empiric Bactrim in 12-11: culture showed mixed lilia CXR negative in 05-12 Tobacco use disorder 10/11/2004 012 Overview: Declined assistance with smoking cessation at this time for cost issues as of 12-11 PFTs 05-12: NL ratio, TLC in the 80% range, NL BONITA/VA (restriction secondary to weight) Started patches in 07-12 Quit documented as of this encounter (statuses as of 05/24/2023) [facility] History of Past illness Narrative* Problem Noted [...] Empiric Bactrim in 12-11: culture showed mixed lilia CXR negative in 05-12 Tobacco use disorder 10/11/2004 012 Overview: Declined assistance with smoking cessation at this time for cost issues as of 12-11 PFTs 05-12: NL ratio, TLC in the 80% range, NL BONITA/VA (restriction secondary to weight) Started patches in 07-12 Quit documented as of this encounter (statuses as of 06/23/2023) [facility] History of Past illness Narrative* Problem Noted [...] Routine general medical exam ination at a [facility] 11/14/2006 02/25/2013 Overview: Empiric Bactrim in 12-11: culture showed mixed lilia CXR negative in 05-12 Tobacco use disorder 10/11/2004 012 Overview: Declined assistance with smoking cessation at this time for cost issues as of 12-11 PFTs 05-12: NL ratio, TLC in the 80% range, NL BONITA/VA (restriction secondary to weight) Started patches in 07-12 Quit documented as of this encounter (statuses as of 06/23/2023) [facility] Anal cellulitis- Primary Abscess of anal and rectal regions Anal fissure [facility] Diagnosis Diabetic peripheral neuropathy associated with type 2 diabetes mellitus (HCC)- Primary Type II or unspecified type diabetes mellitus with neurological manifestations, not stated as uncontrolled [facility] Diagnosis Intermittent asthma without complication, unspecified asthma severity- Primary [facility] Diagnosis Contact dermatitis due to adhesive bandage [facility] Diagnosis 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 [facility] Diagnosis 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 [facility] Diagnosis Cough- Primary Intermittent asthma without complication, unspecified asthma severity [facility] Diagnosis Intermittent asthma without complication, unspecified asthma severity- Primary [facility] Diagnosis Sinobronchitis- Primary Unspecified sinusitis (chronic) [facility] Diagnosis Contact dermatitis due to adhesive bandage [facility] Diagnosis Acute bronchitis with chronic obstructive pulmonary disease (COPD) (HCC)- Primary Obstructive chronic bronchitis with acute bronchitis [facility] Diagnosis Encounter for screening mammogram for breast cancer [facility] Diagnosis Diarrhea of presumed infectious origin [facility] Diagnosis Cough Intermittent asthma without complication, unspecified asthma severity [facility] noteNo assessment information availableWCleveland Clinic Work Phone: Evaluation note* Diagnosis Onychomycosis- Primary Dermatophytosis of nail Pain in toe of right foot Pain in limb Pain in toe of left foot Pain in limb Other diabetic neurological complication associated with type 2 diabetes mellitus (HCC) Hammer toe of left foot Venous insufficiency Unspecified venous (peripheral) insufficiency [facility] Diagnosis Hyperlipidemia associated with type 2 diabetes mellitus (HCC) [facility] Diagnosis Mouth sore- Primary Other and unspecified diseases of the oral soft tissues [facility] Diagnosis COPD (chronic obstructive pulmonary disease) with acute bronchitis (HCC)- Primary Obstructive chronic bronchitis with acute bronchitis [facility] note* Diagnosis Onychomycosis- Primary Dermatophytosis of nail Pain in toe of right foot Pain in limb Pain in toe of left foot Pain in limb Other diabetic neurological complication associated with type 2 diabetes mellitus (HCC[facility] Diagnosis Diarrhea of presumed infectious origin [...] complication associated with type 2 diabetes mellitus ([facility]) [facility] Diagnosis Sore throat- Primary [facility] ph[facility]itis [facility] Diagnosis Hyperlipidemia associated with type 2 diabetes mellitus (HCC) [facility] Diagnosis Wheezing- Primary Acute cough Chronic obstructive pulmonary disease, unspecified COPD type (HCC) Asthma with COPD with exacerbation (HCC) Chronic obstructive asthma with exacerbation [facility] Diagnosis Left hip pain- Primary Pain in joint, pelvic region and thigh Pharyngitis, unspecified etiology BV (bacterial vaginosis) Vaginitis and vulvovaginitis, unspecified Dysuria Anal fissure [facility] Diagnosis Contact dermatitis due to adhesive bandage Allergic contact dermatitis due to adhesives Contact dermatitis and other eczema due to other chemical products [facility] Diagnosis Onychomycosis- Primary Dermatophytosis of nail Pain in toe of right foot Pain in limb Pain in toe of left foot Pain in limb Other diabetic neurological complication associated with type 2 diabetes mellitus (HCC) [facility]* Diagnosis Paronychia of finger, left- Primary [facility] Diagnosis Wheezing Acute cough Chronic obstructive pulmonary disease, unspecified COPD type (HCC) Asthma with COPD with exacerbation (HCC) Chronic obstructive asthma with exacerbation [facility] Diagnosis Viral illness- Primary Unspecified viral infection, in conditions classified elsewhere and of unspecified site [facility] Diagnosis URI with cough and congestion- Primary [facility]* Diagnosis Ileostomy in place (HCC)- Primary [facility]le[facility] status [facility] Diagnosis Hyperlipidemia associated with type 2 diabetes mellitus ([facility]) [facility]* Diagnosis Abscess- Primary Cellulitis and abscess of unspecified site [facility]* Diagnosis Subacute cough- Primary Cough [facility]* Diagnosis Subacute cough Cough [facility]* Diagnosis Encounter for long-term current use of medication- Primary Chronic, continuous use of opioids Opioid type dependence, continuous [facility]* Diagnosis Costochondritis- Primary Tietze's disease Anemia, unspecified type Diabetic peripheral neuropathy associated with type 2 diabetes mellitus ([facility]) Type II or unspecified type diabetes mellitus with neurological manifestations, not stated as uncontrolled [facility]* Diagnosis Chronic, continuous use of opioids Opioid type dependence, continuous [facility]* Diagnosis Wheezing Acute cough Chronic obstructive pulmonary disease, unspecified COPD type ([facility]) Asthma with COPD with exacerbation ([facility]) ([facility]) Chronic obstructive asthma with exacerbation documented in this encounter [facility] note* Diagnosis Perianal irritation- Primary Pruritus ani Contact dermatitis due to adhesive bandage Chronic, continuous use of opioids Opioid type dependence, continuous Perianal fistula Anal fistula Encounter for long-term current use of medication [facility]* Diagnosis Fibromyalgia- Primary Mylagia and myositis, unspecified [facility]* Diagnosis Fibromyalgia- Primary Mylagia and myositis, unspecified Chronic, continuous use of opioids Opioid type dependence, continuous [facility]* Diagnosis Chronic, continuous use of opioids Opioid type dependence, continuous [facility] Diagnosis Onset Date Resolution Status Non-pressure chronic ulcer o f skin of other sites with fat layer exposed chronic [facility] Work Phone: Evaluation note* Diagnosis Chronic, continuous use of opioids Opioid type dependence, continuous [facility]* Diagnosis Contact dermatitis due to adhesive bandage- Primary Diabetic peripheral neuropathy associated with type 2 diabetes mellitus (HCC) Type II or unspecified type diabetes mellitus with neurological manifestations, not stated as uncontrolled Chronic, continuous use of opioids Opioid type dependence, continuous Mixed hyperlipidemia Encounter for long-term current use of medication documented in this encounter [facility] note* Diagnosis Chronic, continuous use of opioids- Primary Opioid type dependence, continuous Chronic midline low back pain, unspecified whether sciatica present Fibromyalgia Mylagia and myositis, unspecified documented in this encounter [facility] note* Diagnosis Fibromyalgia- Primary Mylagia and myositis, unspecified Chronic, continuous use of opioids Opioid type dependence, continuous Chronic midline low back pain, unspecified whether sciatica present documented in this encounter [facility] note* Diagnosis Chronic, continuous use of opioids Opioid type dependence, continuous Fibromyalgia Mylagia and myositis, unspecified Chronic midline low back pain, unspecified whether sciatica present documented in this encounter [facility] note* Diagnosis Encounter for screening mammogram for breast cancer documented in this encounter [facility] note* Diagnosis Wheezing Acute cough Chronic obstructive pulmonary disease, unspecified COPD type ([facility]) Asthma with COPD with exacerbation ([facility]) ([facility]) Chronic obstructive asthma with exacerbation documented in this encounter [facility] note* Diagnosis Chronic, continuous use of opioids Opioid type dependence, continuous Fibromyalgia Mylagia and myositis, unspecified Chronic midline low back pain, unspecified whether sciatica present documented in this encounter [facility] note* Diagnosis Chronic midline low back pain, unspecified whether sciatica present- Primary Chronic, continuous use of opioids Opioid type dependence, continuous Fibromyalgia Mylagia and myositis, unspecified Encounter for long-term current use of medication Contact dermatitis due to adhesive bandage Intermittent asthma without complication, unspecified asthma severity Perianal irritation Pruritus ani Perianal candidiasis Other candidiasis of other specified sites documented in this encounter [facility] note* Diagnosis Chronic, continuous use of opioids Opioid type dependence, continuous Fibromyalgia Mylagia and myositis, unspecified Chronic midline low back pain, unspecified whether sciatica present documented in this encounter [facility] note* Diagnosis Microcytic anemia- Primary Iron deficiency anemia, unspecified Hypoalbuminemia Other disorders of plasma protein metabolism Type 2 diabetes mellitus without complication, with long-term current use of insulin ([facility]) documented in this encounter [facility] note* Diagnosis Perianal abscess- Primary Abscess of anal and rectal regions Anal fissure Diabetic peripheral neuropathy associated with type 2 diabetes mellitus (HCC) Type II or unspecified type diabetes mellitus with neurological manifestations, not stated as uncontrolled [facility] Diagnosis Chronic, continuous use of opioids Opioid type dependence, continuous Fibromyalgia Mylagia and myositis, unspecified Chronic midline low back pain, unspecified whether sciatica present [facility]* Diagnosis Rash- Primary Rash and other nonspecific skin eruption [facility]* Diagnosis Chronic, continuous use of opioids Opioid type dependence, continuous Fibromyalgia Mylagia and myositis, unspecified Chronic midline low back pain, unspecified whether sciatica present [facility]* Diagnosis DM w/o Complication Type II, Uncontrolled- Primary Type II or unspecified type diabetes mellitus without mention of complication, uncontrolled Other and unspecified hyperlipidemia Asthma Unspecified asthma Other screening mammogram MALIGNANT NEOPLASM COLON NOS(aka COLON) Malignant neoplasm of colon, unspecified site Rash Rash and other nonspecific skin eruption Type 2 diabetes mellitus without complication, with long-term current use of insulin (HCC)- Primary [facility]* Diagnosis DM w/o Complication Type II, Uncontrolled- Primary Type II or unspecified type diabetes mellitus without mention of complication, uncontrolled Other and unspecified hyperlipidemia Asthma Unspecified asthma Other screening mammogram MALIGNANT NEOPLASM COLON NOS(aka COLON) Malignant neoplasm of colon, unspecified site Rash Rash and other nonspecific skin eruption Onychomycosis- Primary Dermatophytosis of nail Pain in toe of right foot Pain in limb Pain in toe of left foot Pain in limb Other diabetic neurological complication associated with type 2 diabetes mellitus (HCC) Hallux valgus of left foot [facility]* Diagnosis DM w/o Complication Type II, Uncontrolled- Primary Type II or unspecified type diabetes mellitus without mention of complication, uncontrolled Other and unspecified hyperlipidemia Asthma Unspecified asthma Other screening mammogram MALIGNANT NEOPLASM COLON NOS(aka COLON) Malignant neoplasm of colon, unspecified site Rash Rash and other nonspecific skin eruption Paronychia of finger, left [facility]* Diagnosis DM w/o Complication Type II, Uncontrolled- Primary Type II or unspecified type diabetes mellitus without mention of complication, uncontrolled Other and unspecified hyperlipidemia Asthma Unspecified asthma Other screening mammogram MALIGNANT NEOPLASM COLON NOS(aka COLON) Malignant neoplasm of colon, unspecified site Rash Rash and other nonspecific skin eruption Wheezing Acute cough documented in this encounter [facility] note* Diagnosis DM w/o Complication Type II, Uncontrolled- Primary Type II or unspecified type diabetes mellitus without mention of complication, uncontrolled Other and unspecified hyperlipidemia Asthma Unspecified asthma Other screening mammogram MALIGNANT NEOPLASM COLON NOS(aka COLON) Malignant neoplasm of colon, unspecified site Rash Rash and other nonspecific skin eruption Chronic, continuous use of opioids Opioid type dependence, continuous Fibromyalgia Mylagia and myositis, unspecified Chronic midline low back pain, unspecified whether sciatica present documented in this encounter [facility] note* Diagnosis DM w/o Complication Type II, Uncontrolled- Primary Type II or unspecified type diabetes mellitus without mention of complication, uncontrolled Other and unspecified hyperlipidemia Asthma Unspecified asthma Other screening mammogram MALIGNANT NEOPLASM COLON NOS(aka COLON) Malignant neoplasm of colon, unspecified site Rash Rash and other nonspecific skin eruption Groin pain, right Hip instability, right documented in this encounter [facility] note* Diagnosis DM w/o Complication Type II, Uncontrolled- Primary Type II or unspecified type diabetes mellitus without mention of complication, uncontrolled Other and unspecified hyperlipidemia Asthma Unspecified asthma Other screening mammogram MALIGNANT NEOPLASM COLON NOS(aka COLON) Malignant neoplasm of colon, unspecified site Rash Rash and other nonspecific skin eruption Chronic, continuous use of opioids Opioid type dependence, continuous Fibromyalgia Mylagia and myositis, unspecified Chronic midline low back pain, unspecified whether sciatica present documented in this encounter [facility] note* Diagnosis DM w/o Complication Type II, Uncontrolled- Primary Type II or unspecified type diabetes mellitus without mention of complication, uncontrolled Other and unspecified hyperlipidemia Asthma Unspecified asthma Other screening mammogram MALIGNANT NEOPLASM COLON NOS(aka COLON) Malignant neoplasm of colon, unspecified site Rash Rash and other nonspecific skin eruption Sinobronchitis Unspecified sinusitis (chronic) documented in this encounter [facility] note* Diagnosis DM w/o Complication Type II, Uncontrolled- Primary Type II or unspecified type diabetes mellitus without mention of complication, uncontrolled Other and unspecified hyperlipidemia Asthma Unspecified asthma Other screening mammogram MALIGNANT NEOPLASM COLON NOS(aka COLON) Malignant neoplasm of colon, unspecified site Rash Rash and other nonspecific skin eruption Persistent disorder of initiating or maintaining sleep- Primary Type 2 diabetes mellitus without complication, with long-term current use of insulin (HCC) Chronic midline low back pain, unspecified whether sciatica present Hyponatremia Hyposmolality and/or hyponatremia Fibromyalgia Mylagia and myositis, unspecified Chronic, continuous use of opioids Opioid type dependence, continuous Ileostomy in place (HCC) Ileostomy status Fecal soiling due to fecal incontinence Acute cystitis without hematuria Acute cystitis [facility]* Diagnosis DM w/o Complication Type II, Uncontrolled- Primary Type II or unspecified type diabetes mellitus without mention of complication, uncontrolled Other and unspecified hyperlipidemia Asthma Unspecified asthma Other screening mammogram MALIGNANT NEOPLASM COLON NOS(aka COLON) Malignant neoplasm of colon, unspecified site Rash Rash and other nonspecific skin eruption Fibromyalgia Mylagia and myositis, unspecified Chronic, continuous use of opioids Opioid type dependence, continuous Chronic midline low back pain, unspecified whether sciatica present [facility]* Diagnosis DM w/o Complication Type II, Uncontrolled- Primary Type II or unspecified type diabetes mellitus without mention of complication, uncontrolled Other and unspecified hyperlipidemia Asthma Unspecified asthma Other screening mammogram MALIGNANT NEOPLASM COLON NOS(aka COLON) Malignant neoplasm of colon, unspecified site Rash Rash and other nonspecific skin eruption Microcytic anemia Iron deficiency anemia, unspecified Hypoalbuminemia Other disorders of plasma protein metabolism Type 2 diabetes mellitus without complication, with long-term current use of insulin ([facility]) [facility]* Diagnosis DM w/o Complication Type II, Uncontrolled- Primary Type II or unspecified type diabetes mellitus without mention of complication, uncontrolled Other and unspecified hyperlipidemia Asthma Unspecified asthma Other screening mammogram MALIGNANT NEOPLASM COLON NOS(aka COLON) Malignant neoplasm of colon, unspecified site Rash Rash and other nonspecific skin eruption Fibromyalgia Mylagia and myositis, unspecified Chronic, continuous use of opioids Opioid type dependence, continuous Chronic midline low back pain, unspecified whether sciatica present [facility]* Diagnosis DM w/o Complication Type II, Uncontrolled- Primary Type II or unspecified type diabetes mellitus without mention of complication, uncontrolled Other and unspecified hyperlipidemia Asthma Unspecified asthma Other screening mammogram MALIGNANT NEOPLASM COLON NOS(aka COLON) Malignant neoplasm of colon, unspecified site Rash Rash and other nonspecific skin eruption Chronic midline low back pain, unspecified whether sciatica present Fibromyalgia Mylagia and myositis, unspecified [facility]* Diagnosis DM w/o Complication Type II, Uncontrolled- Primary Type II or unspecified type diabetes mellitus without mention of complication, uncontrolled Other and unspecified hyperlipidemia Asthma Unspecified asthma Other screening mammogram MALIGNANT NEOPLASM COLON NOS(aka COLON) Malignant neoplasm of colon, unspecified site Rash Rash and other nonspecific skin eruption Diabetic peripheral neuropathy associated with type 2 diabetes mellitus (HCC)- Primary Type II or unspecified type diabetes mellitus with neurological manifestations, not stated as uncontrolled Screening for depression Encounter for screening examination for other mental health and behavioral disorders Chronic obstructive pulmonary disease, unspecified COPD type (HCC) Encounter for screening for lung cancer Screening for osteoporosis Special screening for osteoporosis Asymptomatic menopause Hyperlipidemia associated with type 2 diabetes mellitus (HCC) (HCC) Fibromyalgia Mylagia and myositis, unspecified Chronic, continuous use of opioids Opioid type dependence, continuous Chronic midline low back pain, unspecified whether sciatica present Encounter for immunization Need for other specified prophylactic vaccination against single bacterial disease [facility]* Diagnosis DM w/o Complication Type II, Uncontrolled- Primary Type II or unspecified type diabetes mellitus without mention of complication, uncontrolled Other and unspecified hyperlipidemia Asthma Unspecified asthma Other screening mammogram MALIGNANT NEOPLASM COLON NOS(aka COLON) Malignant neoplasm of colon, unspecified site Rash Rash and other nonspecific skin eruption Fibromyalgia Mylagia and myositis, unspecified Chronic, continuous use of opioids Opioid type dependence, continuous Chronic midline low back pain, unspecified whether sciatica present [facility] Diagnosis DM w/o Complication Type II, Uncontrolled- Primary Type II or unspecified type diabetes mellitus without mention of complication, uncontrolled Other and unspecified hyperlipidemia Asthma Unspecified asthma Other screening mammogram MALIGNANT NEOPLASM COLON NOS(aka COLON) Malignant neoplasm of colon, unspecified site Rash Rash and other nonspecific skin eruption URI, acute- Primary Acute upper respiratory infections of unspecified site [facility] Diagnosis DM w/o Complication Type II, Uncontrolled- Primary Type II or unspecified type diabetes mellitus without mention of complication, uncontrolled Other and unspecified hyperlipidemia Asthma Unspecified asthma Other screening mammogram MALIGNANT NEOPLASM COLON NOS(aka COLON) Malignant neoplasm of colon, unspecified site Rash Rash and other nonspecific skin eruption Cough Intermittent asthma without complication, unspecified asthma severity [facility]* Diagnosis DM w/o Complication Type II, Uncontrolled- Primary Type II or unspecified type diabetes mellitus without mention of complication, uncontrolled Other and unspecified hyperlipidemia Asthma Unspecified asthma Other screening mammogram MALIGNANT NEOPLASM COLON NOS(aka COLON) Malignant neoplasm of colon, unspecified site Rash Rash and other nonspecific skin eruption Fibromyalgia Mylagia and myositis, unspecified Chronic, continuous use of opioids Opioid type dependence, continuous Chronic midline low back pain, unspecified whether sciatica present [facility]* Diagnosis DM w/o Complication Type II, Uncontrolled- Primary Type II or unspecified type diabetes mellitus without mention of complication, uncontrolled Other and unspecified hyperlipidemia Asthma Unspecified asthma Other screening mammogram MALIGNANT NEOPLASM COLON NOS(aka COLON) Malignant neoplasm of colon, unspecified site Rash Rash and other nonspecific skin eruption Uncomplicated asthma, unspecified asthma severity, unspecified whether persistent- Primary Personal history of other diseases of the respiratory system [facility]* Diagnosis DM w/o Complication Type II, Uncontrolled- Primary Type II or unspecified type diabetes mellitus without mention of complication, uncontrolled Other and unspecified hyperlipidemia Asthma Unspecified asthma Other screening mammogram MALIGNANT NEOPLASM COLON NOS(aka COLON) Malignant neoplasm of colon, unspecified site Rash Rash and other nonspecific skin eruption Fibromyalgia Mylagia and myositis, unspecified Chronic, continuous use of opioids Opioid type dependence, continuous Chronic midline low back pain, unspecified whether sciatica present [facility]* Diagnosis DM w/o Complication Type II, Uncontrolled- Primary Type II or unspecified type diabetes mellitus without mention of complication, uncontrolled Other and unspecified hyperlipidemia Asthma Unspecified asthma Other screening mammogram MALIGNANT NEOPLASM COLON NOS(aka COLON) Malignant neoplasm of colon, unspecified site Rash Rash and other nonspecific skin eruption Diabetic peripheral neuropathy associated with type 2 diabetes mellitus (HCC) Type II or unspecified type diabetes mellitus with neurological manifestations, not stated as uncontrolled [facility] Diagnosis DM w/o Complication Type II, Uncontrolled- Primary Type II or unspecified type diabetes mellitus without mention of complication, uncontrolled Other and unspecified hyperlipidemia Asthma Unspecified asthma Other screening mammogram MALIGNANT NEOPLASM COLON NOS(aka COLON) Malignant neoplasm of colon, unspecified site Rash Rash and other nonspecific skin eruption Onychomycosis- Primary Dermatophytosis of nail Pain in toe of right foot Pain in limb Pain in toe of left foot Pain in limb Other diabetic neurological complication associated with type 2 diabetes mellitus (HCC) Hallux valgus of left foot documented in this encounter [facility] note* Diagnosis DM w/o Complication Type II, Uncontrolled- Primary Type II or unspecified type diabetes mellitus without mention of complication, uncontrolled Other and unspecified hyperlipidemia Asthma Unspecified asthma Other screening mammogram MALIGNANT NEOPLASM COLON NOS(aka COLON) Malignant neoplasm of colon, unspecified site Rash Rash and other nonspecific skin eruption Fibromyalgia Mylagia and myositis, unspecified Chronic, continuous use of opioids Opioid type dependence, continuous Chronic midline low back pain, unspecified whether sciatica present documented in this encounter [facility] note* Diagnosis DM w/o Complication Type II, Uncontrolled- Primary Type II or unspecified type diabetes mellitus without mention of complication, uncontrolled Other and unspecified hyperlipidemia Asthma Unspecified asthma Other screening mammogram MALIGNANT NEOPLASM COLON NOS(aka COLON) Malignant neoplasm of colon, unspecified site Rash Rash and other nonspecific skin eruption Fibromyalgia- Primary Mylagia and myositis, unspecified Chronic midline low back pain, unspecified whether sciatica present Chronic, continuous use of opioids Opioid type dependence, continuous Fistula Unspecified local infection of skin and subcutaneous tissue Chronic obstructive pulmonary disease, unspecified COPD type (HCC) Diabetic peripheral neuropathy associated with type 2 diabetes mellitus (HCC) Type II or unspecified type diabetes mellitus with neurological manifestations, not stated as uncontrolled Type 2 diabetes mellitus without complication, with long-term current use of insulin (HCC) Iron deficiency anemia, unspecified iron deficiency anemia type Encounter for therapeutic drug monitoring Encounter for screening mammogram for breast cancer documented in this encounter [facility] note* Diagnosis DM w/o Complication Type II, Uncontrolled- Primary Type II or unspecified type diabetes mellitus without mention of complication, uncontrolled Other and unspecified hyperlipidemia Asthma Unspecified asthma Other screening mammogram MALIGNANT NEOPLASM COLON NOS(aka COLON) Malignant neoplasm of colon, unspecified site Rash Rash and other nonspecific skin eruption Fibromyalgia Mylagia and myositis, unspecified Chronic, continuous use of opioids Opioid type dependence, continuous Chronic midline low back pain, unspecified whether sciatica present documented in this encounter [facility] note* Diagnosis DM w/o Complication Type II, Uncontrolled- Primary Type II or unspecified type diabetes mellitus without mention of complication, uncontrolled Other and unspecified hyperlipidemia Asthma (HCC) Unspecified asthma Other screening mammogram MALIGNANT NEOPLASM COLON NOS(aka COLON) Malignant neoplasm of colon, unspecified site Rash Rash and other nonspecific skin eruption Fibromyalgia Mylagia and myositis, unspecified Chronic, continuous use of opioids Opioid type dependence, continuous Chronic midline low back pain, unspecified whether sciatica present [facility] Diagnosis DM w/o Complication Type II, Uncontrolled- Primary Type II or unspecified type diabetes mellitus without mention of complication, uncontrolled Other and unspecified hyperlipidemia Asthma (HCC) Unspecified asthma Other screening mammogram MALIGNANT NEOPLASM COLON NOS(aka COLON) Malignant neoplasm of colon, unspecified site Rash Rash and other nonspecific skin eruption Fibromyalgia Mylagia and myositis, unspecified Chronic, continuous use of opioids Opioid type dependence, continuous Chronic midline low back pain, unspecified whether sciatica present [facility]* Diagnosis DM w/o Complication Type II, Uncontrolled- Primary Type II or unspecified type diabetes mellitus without mention of complication, uncontrolled Other and unspecified hyperlipidemia Asthma (HCC) Unspecified asthma Other screening mammogram MALIGNANT NEOPLASM COLON NOS(aka COLON) Malignant neoplasm of colon, unspecified site Rash Rash and other nonspecific skin eruption Fibromyalgia Mylagia and myositis, unspecified Chronic, continuous use of opioids Opioid type dependence, continuous Chronic midline low back pain, unspecified whether sciatica present [facility] Diagnosis DM w/o Complication Type II, Uncontrolled- Primary Type II or unspecified type diabetes mellitus without mention of complication, uncontrolled Other and unspecified hyperlipidemia Asthma (HCC) Unspecified asthma Other screening mammogram MALIGNANT NEOPLASM COLON NOS(aka COLON) Malignant neoplasm of colon, unspecified site Rash Rash and other nonspecific skin eruption Fibromyalgia Mylagia and myositis, unspecified Chronic, continuous use of opioids Opioid type dependence, continuous Chronic midline low back pain, unspecified whether sciatica present [facility]* Diagnosis DM w/o Complication Type II, Uncontrolled- Primary Type II or unspecified type diabetes mellitus without mention of complication, uncontrolled Other and unspecified hyperlipidemia Asthma (HCC) Unspecified asthma Other screening mammogram MALIGNANT NEOPLASM COLON NOS(aka COLON) Malignant neoplasm of colon, unspecified site Rash Rash and other nonspecific skin eruption Diabetic peripheral neuropathy associated with type 2 diabetes mellitus (HCC)- Primary Type II or unspecified type diabetes mellitus with neurological manifestations, not stated as uncontrolled Fibromyalgia Mylagia and myositis, unspecified Chronic, continuous use of opioids Opioid type dependence, continuous Chronic midline low back pain, unspecified whether sciatica present Encounter for immunization Need for other specified prophylactic vaccination against single bacterial disease Screening for diabetic retinopathy Screening for other eye conditions Encounter for screening for lung cancer Visual impairment Unspecified visual loss [facility]* Diagnosis DM w/o Complication Type II, Uncontrolled- Primary Type II or unspecified type diabetes mellitus without mention of complication, uncontrolled Other and unspecified hyperlipidemia Asthma (HCC) Unspecified asthma Other screening mammogram MALIGNANT NEOPLASM COLON NOS(aka COLON) Malignant neoplasm of colon, unspecified site Rash Rash and other nonspecific skin eruption Intermittent asthma without complication, unspecified asthma severity (HCC) documented in this encounter [facility] note* Diagnosis DM w/o Complication Type II, Uncontrolled- Primary Type II or unspecified type diabetes mellitus without mention of complication, uncontrolled Other and unspecified hyperlipidemia Asthma (HCC) Unspecified asthma Other screening mammogram MALIGNANT NEOPLASM COLON NOS(aka COLON) Malignant neoplasm of colon, unspecified site Rash Rash and other nonspecific skin eruption Onychomycosis- Primary Dermatophytosis of nail Pain in toe of right foot Pain in limb Pain in toe of left foot Pain in limb Other diabetic neurological complication associated with type 2 diabetes mellitus (HCC) Hallux valgus of left foot Hallux valgus of right foot documented in this encounter [facility] note* Diagnosis DM w/o Complication Type II, Uncontrolled- Primary Type II or unspecified type diabetes mellitus without mention of complication, uncontrolled Other and unspecified hyperlipidemia Asthma (HCC) Unspecified asthma Other screening mammogram MALIGNANT NEOPLASM COLON NOS(aka COLON) Malignant neoplasm of colon, unspecified site Rash Rash and other nonspecific skin eruption Labial lesion- Primary Other specified noninflammatory disorder of vulva and perineum Urinary incontinence, unspecified type [facility] Phone[facility] Discharge instructions Additional Instructions Follow-up with Dr. Trevizo for further pain management.[facility] Work Phone: [facility] for referral (narrative)* Diagnostic Procedure Only (Routine) - Pending Review Specialty Diagnoses / Procedures Referred By Shania rendon Referred To Contact BR IMAGING Diagnoses Encounter for screening mammogram for breast cancer Procedures URIEL SCREENING SCREENING MAMMOGRAPHY BI 2-VIEW BREAST INC Tiff Garcia MD [address] [place] [address] [facility] [address] [place] [address] Referral ID Status Reason Start Date Expiration Date Visits Requested Visits Authorized [id number] Pending Review Auto-Generat ed Referral 09/01/2021 10/01/2022 1 1 [facility] for referral (narrative)* Diagnostic Procedure Only (Urgent) - Pending Review Specialty Diagnoses / Procedures Referred By Shania rendon Referred To Contact XR IMAGING Diagnoses Paronychia of finger, left Procedures XR DIGIT GENERAL 3V FRONTAL/LAT/OBL LEFT RADEX FINGR MINIMUM 2 VIEWS Jacklyn Freitas PA-C [address] [place] [address] Xr Imaging [facility] Referral ID Status Reason Start Date Expiration Date Visits Requested Visits Authorized [id number] Pending Review Auto-Generat ed Referral 01/08/2023 02/07/2024 1 1 [facility] for referral (narrative)* Diagnostic Procedure Only (Routine) - Pending Review Specialty Diagnoses / Procedures Referred By Shania rendon Referred To Contact BR IMAGING Diagnoses Encounter for screening mammogram for breast cancer Procedures URIEL SCREENING SCREENING MAMMOGRAPHY BI 2-VIEW BREAST INC Tiff Garcia MD [address] [place] [address] [facility] [address] [place] [address] Referral ID Status Reason Start Date Expiration Date Visits Requested Visits Authorized [id number] Pending Review Auto-Generat ed Referral 07/12/2023 08/10/2024 1 1 [facility] for referral (narrative)* Diagnostic Procedure Only (Urgent) - Closed Specialty Diagnoses / Procedures Referred By Contac t Referred To Contact XR IMAGING Diagnoses Paronychia of finger, left Procedures XR DIGIT GENERAL 3V FRONTAL/LAT/OBL LEFT RADEX FINGR MINIMUM 2 VIEWS Jacklyn Freitas PA-C [address] [place] [address] [place] [address] Referral ID Status Reason Start Date Expiration Date V isits Requested Visits Authorized [id number] Closed Auto-Generate d Referral 01/08/2023 02/07/2024 1 1 [facility] for referral (narrative)* Diagnostic Procedure Only (Routine) - Closed Specialty Diagnoses / Procedures Referred By Contac t Referred To Contact XR IMAGING Diagnoses Groin pain, right Hip instability, right Procedures XR HIP GENERAL 3V PELV/AP/LAT RIGHT RADEX HIP UNILATERAL WITH PELVIS 2-3 VIEWS Tiff Pearson MD [address] [place] [address] [place] [address] Referral ID Status Reason Start Date Expiration Date V isits Requested Visits Authorized [id number] Closed Auto-Generate d Referral 06/07/2022 07/07/2023 1 1 [facility] for referral (narrative)* Diagnostic Procedure Only (Routine) - Authorized Specialty Diagnoses / Procedures Referred By Contac t Referred To Contact XR IMAGING Diagnoses Screening for osteoporosis Asymptomatic menopause Procedures DXA-AXIAL SKELETON DXA BONE DENSITY STUDY / SITES AXIAL Esteban Chicas APRN.METAL MOCKUP MAKER [address] [place] [address] [place] [address] Referral ID Status Reason Start Date Expiration Date Visits Requested Visits Authorized [id number] Authorized Auto-Generat ed Referral 02/27/2025 1 1 [facility] for referral (narrative)No reason for referral information [facility] Work Phone: Reason for visit Narrative* Diagnostic Procedure Only (Urgent) - Closed Specialty Diagnoses / Procedures Referred By Contac t Referred To Contact XR IMAGING Diagnoses Paronychia of finger, left Procedures XR DIGIT GENERAL 3V FRONTAL/LAT/OBL LEFT RADEX FINGR MINIMUM 2 VIEWS Jacklyn Freitas, PAAliyahC [address] [place] [address] [place] [address] Referral ID Status Reason Start Date Expiration Date V isits Requested Visits Authorized [id number] Closed Auto-Generate d Referral 01/08/2023 02/07/2024 1 1 [facility] for visit Narrative* Diagnostic Procedure Only (Routine) - Closed Specialty Diagnoses / Procedures Referred By Contac t Referred To Contact XR IMAGING Diagnoses Groin pain, right Hip instability, right Procedures XR HIP GENERAL 3V PELV/AP/LAT RIGHT RADEX HIP UNILATERAL WITH PELVIS 2-3 VIEWS Tiff Pearson MD [address] [place] [address] [place] [address] Referral ID Status Reason Start Date Expiration Date V isits Requested Visits Authorized [id number] Closed Auto-Generate d Referral 06/07/2022 07/07/2023 1 1 [facility] Advance Directives No Advanced Directives Records FoundDocuments on File Type Date Recorded 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 Advance Directive(s) Advance Directive(s) 09/22/2016 5:28 PM Advance Directive(s) 09/22/2016 5:38 PM Advance Directive(s) 09/20/2016 8:10 PM Advance Directive(s) 09/11/2016 11:22 AM Advance Directive(s) 12/01/2015 10:35 AM Advance Directive(s) 04/20/2006 12:00 AM Advance Directive Response Recorded Date/ Time Name of Medical Power of Roadway Engineer Foreign Luis Angel () May 16, 2021 11:19pm Advance Directives No March 21, 2016 11:37pm Living Will Yes June 10, 2021 6:06pm Power of Roadway Engineer No June 10 6:06pm Advance Directive Response Recorded Date/ Time Name of Medical Power of Roadway Engineer Foreign Hobson () May 16, 2021 11:19pm Advance Directives No March 21, 2016 11:37pm Living Will Yes June 12, 2021 1:11pm Power of Roadway Engineer Yes June 12 1:11pm Documents on File Type Date Recorded 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 Advance Directive(s) Advance Directive(s) 09/22/2016 5:28 PM Advance Directive(s) 09/22/2016 5:38 PM Advance Directive(s) 09/20/2016 8:10 PM Advance Directive(s) 09/11/2016 11:22 AM Advance Directive(s) 12/01/2015 10:35 AM Advance Directive(s) 04/20/2006 12:00 AM Advance Directive Response Recorded Date/ Time Name of Medical Power of Roadway Engineer Foreign Hobson () May 16, 2021 11:19pm Name of Medical Power of Roadway Engineer foreign hobson June 12, 2021 1:11pm Advance Directives No March 21, 2016 11:37pm Living Will Yes August 01, 2021 5 :16am Power of Roadway Engineer Yes August 01, 2021 5:16am Documents on File Type Date Recorded 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 Advance Directive(s) Advance Directive(s) 08/01/2021 [...] Documents on File Type Date Recorded 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 Advance Directive(s) Advance Directive(s) 08/01/2021 [...] Documents on File Type Date Recorded 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 Advance Directive(s) 09/22/2016 5:28 PM Advance Directive(s) 09/22/2016 5:38 PM Advance Directive(s) 04/20/2006 Advance Directive Response Recorded Date/ Time Name of Medical Power of Roadway Engineer edward veronica usband August 01, 2021 5:16am Advance Directives No March 21, 2016 11:37pm Living Will No October 26 2:52am Power of Roadway Engineer No October 26, 022 2:52am Advance Directive Response Recorded Date/ Time Advance Directives No March 21, 2016 10:37pm Living Will No March 02, 022 7:20pm Power of Roadway Engineer No March 02, 2022 7:20pm Advance Directive Response Recorded Date/ Time Name of Medical Power of Roadway Engineer June 01, 2022 4:30pm Advance Directives No March 21, 2016 11:37pm Living Will Yes June 01, 2022 4:30pm Power of Roadway Engineer Yes June 01 4:30pm Advance Directive Response Recorded Date/ Time Name of Medical Power of Roadway Engineer June 01, 2022 4:30pm Advance Directives No March 21, 2016 11:37pm Living Will No June 06, 2022 2:51am Power of Roadway Engineer No June 06 2:51am Documents on File Type Date Recorded 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 Advance Directive(s) 09/22/2016 5:38 PM Advance Directive(s) 09/22/2016 5:28 PM Advance Directive(s) 04/20/2006 Latest Code Status on File Code Status Date Activated Date Inactivated Comments Full Code 08/01/2021 8:18 PM 08/05/2021 9:22 PM Question Answer Comments Full Code Order Discussed With: Patient Advance Directive Response Recorded Date/ Time Advance Directives No March 21, 2016 11:37pm Living Will No November 13, 2022 1:53pm Power of Roadway Engineer No November 1:53pm Documents on File Type Date Recorded 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 Advance Directive(s) 09/22/2016 5:38 PM Advance Directive(s) 09/22/2016 5:28 PM Advance Directive(s) 04/20/2006 Latest Code Status on File Code Status Date Activated Date Inactivated Comments Full Code 08/01/2021 8:18 PM 08/05/2021 9:22 PM Question Answer Comments Full Code Order Discussed With: Patient Advance Directive Response Recorded Date/ Time Name of Medical Power of Roadway Engineer FOREIGN PETTYTERESAPREM Annette April 08, 2023 5:47pm Advance Directives No March 21, 2016 10:37pm Living Will No April 08 5:47pm Power of Roadway Engineer Yes April 08, 2023 5:47pm Date Activated Date Inactivated Comments 08/01/2021 8:18 PM 08/05/2021 9:22 PM Question Answer Comments Full Code Order Discussed With: Patient Advance Directive Response Recorded Date/ Time Name of Medical Power of Roadway Engineer FOREIGN PETTYTERESAPREM Annette April 08, 2023 6:47pm Advance Directives No March 21, 2016 11:37pm Living Will No April 08 6:47pm Power of Roadway Engineer Yes April 08, 2023 6:47pm Date Activated Date Inactivated Comments 08/01/2021 8:18 PM 08/05/2021 9:22 PM Question Answer Comments Full Code Order Discussed With: Patient Advance Directive Response Recorded Date/ Time Advance Directives No March 21, 2016 11:37pm Chief Complaint and Reason for Visit Chief Complaint rectal pain remote Micra VR f/u anal fissure Reason for Visit Bradycardia Presence of cardiac pacemaker Chief Complaint rectal pain remote Micra VR f/u anal fissure RECTAL PAIN Reason for Visit Bradycardia Presence of cardiac pacemaker Chief Complaint rectal pain remote Micra VR f/u anal fissure RECTAL PAIN eye Reason for Visit Bradycardia Presence of cardiac pacemaker Chief Complaint rectal pain remote Micra VR f/u anal fissure RECTAL PAIN eye SORE THROAT Reason for Visit Bradycardia Presence of cardiac pacemaker Chief Complaint eye SORE THROAT chronic pain Chief Complaint remote PPM f/u left hand Reason for Visit Bradycardia Presence of cardiac pacemaker Chief Complaint left hand remote PPM f/u remote PPM f/u PAIN ALL OVER Reason for Visit Bradycardia Presence of cardiac pacemaker Chief Complaint remote PPM f/u remote PPM f/u PAIN ALL OVER pain Reason for Visit Bradycardia Presence of cardiac pacemaker Chief Complaint SORE THROAT Chief Complaint RANDOM DRUG SCREEN chest pain Chief Complaint RANDOM DRUG SCREEN chest pain Pacer Check Remote wound wound Reason for Visit Non-pressure chronic ulcer of skin of other sites with fat layer exposed Chief Complaint Admit Date Pacer Check Remote June 26, 2024 10: 08am Pacer Check Remote September 13, 2024 9:31 am Pacer Check Remote September 30, 2024 9:29 am Family History No Family History Records Found Relationship Condition Age at Onset Recorded Date/T opal Not Specified Disorder of thyroid Unknown father Cardiac disease Unknown Reason for Referral Specialty Diagnoses / Procedures Referred By Contac t Referred To Contact Esteban Gabriel, CASING IN LINE FEEDER.METAL MOCKUP MAKER [address] [place] [address] Referral ID Status Reason Start Date Expiration Date Visits Re quested Visits Authorized [id number] Closed 1 1 Specialty Diagnoses / Procedures Referred By Contac t Referred To Contact Diagnoses Cough Intermittent asthma without complication, unspecified asthma severity Christina Jensen PA-C [address] [place] [address] Referral ID Status Reason Start Date Expiration Date Visits Re quested Visits Authorized [id number] Closed 1 1 Specialty Diagnoses / Procedures Referred By Contac t Referred To Contact Diagnoses Wheezing Acute cough Chronic obstructive pulmonary disease, unspecified COPD type (HCC) Asthma with COPD with exacerbation (HCC) (HCC) Sheila Mustafa, CASING IN LINE FEEDER.BASKET PATCHER [address] [place] [address] Referral ID Status Reason Start Date Expiration Date V isits Requested Visits Authorized [id number] Pending Review 1 1 Specialty Diagnoses / Procedures Referred By Contac t Referred To Contact Pain Management Diagnoses Chronic, continuous use of opioids Fibromyalgia Procedures CONSULT TO PAIN MGT Tiff Pearson MD [address] [place] [id number] Christiano Ross V [address] [place] [address] Referral ID Status Reason Start Date Expiration Date Visits Requested Visits Authorized [id number] Ref Not Required PCP Requested Referral 05/05/2023 05/04/2024 1 1 Specialty Diagnoses / Procedures Referred By Contac t Referred To Contact Pain Management Diagnoses Chronic, continuous use of opioids Fibromyalgia Chronic midline low back pain, unspecified whether sciatica present Procedures CONSULT TO PAIN MGT OFFICE/OUTPATIENT [facility] 60 MINUTES Shawn Veronica APRN.BASKET PATCHER [address] [place] [address] Referral ID Status Reason Start Date Expiration Date Visits Requested Visits Authorized [id number] Authorized PCP Requested Referral 07/03/2023 07/02/2024 1 1 Specialty Diagnoses / Procedures Referred By Contac t Referred To Contact Diagnoses Wheezing Acute cough Chronic obstructive pulmonary disease, unspecified COPD type (HCC) Asthma with COPD with exacerbation (HCC) (HCC) Esteban Gabriel, CASING IN LINE FEEDER.METAL MOCKUP MAKER [address] [place] [address] Referral ID Status Reason Start Date Expiration Date V isits Requested Visits Authorized [id number] Pending Review 1 1 Specialty Diagnoses / Procedures Referred By Contac t Referred To Contact General Surgery Diagnoses Perianal abscess Anal fissure Procedures CONSULT TO GENERAL SURGERY OFFICE/OUTPATIENT [facility] 60 MINUTES Vasyl Flores MD [address] [place] [id number] Referral ID Status Reason Start Date Expiration Date Visits Requested Visits Authorized [id number] Authorized PCP Requested Referral 08/25/2023 08/24/2024 1 1 Specialty Diagnoses / Procedures Referred By Contac t Referred To Contact Diagnoses Chronic, continuous use of opioids Fibromyalgia Chronic midline low back pain, unspecified whether sciatica present Tiff Pearson MD [address] [place] [id number] Referral ID Status Reason Start Date Expiration Date V isits Requested Visits Authorized [id number] Authorized 11/05/2023 11/08/2024 1 1 Medications Administered Section Inactive Administered Medications - [...] Given 11/01/2022 12:44 PM EDT 2.5 mg Summary Purpose Health Concerns Infection Onset Date Last Indicated [...] or prosecute any alcohol or drug abuse patient.[facility] the event this information is protected by the Federal Confidentiality of Alcohol and Drug Abuse Patient Records regulations: The Federal rules restrict any use of the information to criminally investigate or prosecute any alcohol or drug abuse patient.[facility] the event this information is protected by the Federal Confidentiality of Alcohol and Drug Abuse Patient Records regulations: The Federal rules restrict any use of the information to criminally investigate or prosecute any alcohol or drug abuse patient.[facility] the event this information is protected by the Federal Confidentiality of Alcohol and Drug Abuse Patient Records regulations: The Federal rules restrict any use of the information to criminally investigate or prosecute any alcohol or drug abuse patient.[facility] the event this information is protected by the Federal Confidentiality of Alcohol and Drug Abuse Patient Records regulations: The Federal rules restrict any use of the information to criminally investigate or prosecute any alcohol or drug abuse patient.[facility] the event this information is protected by the Federal Confidentiality of Alcohol and Drug Abuse Patient Records regulations: The Federal rules restrict any use of the information to criminally investigate or prosecute any alcohol or drug abuse patient.[facility]In the event this information is protected by the Federal Confidentiality of Alcohol and Drug Abuse Patient Records regulations: The Federal rules restrict any use of the information to criminally investigate or prosecute any alcohol or drug abuse patient.[facility]In the event this information is protected by the Federal Confidentiality of Alcohol and Drug Abuse Patient Records regulations: The Federal rules restrict any use of the information to criminally investigate or prosecute any alcohol or drug abuse patient.[facility]In the event this information is protected by the Federal Confidentiality of Alcohol and Drug Abuse Patient Records regulations: The Federal rules restrict any use of the information to criminally investigate or prosecute any alcohol or drug abuse patient.[facility]In the event this information is protected by the Federal Confidentiality of Alcohol and Drug Abuse Patient Records regulations: The Federal rules restrict any use of the information to criminally investigate or prosecute any alcohol or drug abuse patient.[facility]In the event this information is protected by the Federal Confidentiality of Alcohol and Drug Abuse Patient Records regulations: The Federal rules restrict any use of the information to criminally investigate or prosecute any alcohol or drug abuse patient.[facility]In the event this information is protected by the Federal Confidentiality of Alcohol and Drug Abuse Patient Records regulations: The Federal rules restrict any use of the information to criminally investigate or prosecute any alcohol or drug abuse patient.[facility]In the event this information is protected by the Federal Confidentiality of Alcohol and Drug Abuse Patient Records regulations: The Federal rules restrict any use of the information to criminally investigate or prosecute any alcohol or drug abuse patient.[facility]In the event this information is protected by the Federal Confidentiality of Alcohol and Drug Abuse Patient Records regulations: The Federal rules restrict any use of the information to criminally investigate or prosecute any alcohol or drug abuse patient.[facility]In the event this information is protected by the Federal Confidentiality of Alcohol and Drug Abuse Patient Records regulations: The Federal rules restrict any use of the information to criminally investigate or prosecute any alcohol or drug abuse patient.[facility] SpringfieldIn the event this information is protected by [...] or prosecute any alcohol or drug abuse patient.[facility]In the event this information is protected by the Federal Confidentiality of Alcohol and Drug Abuse Patient Records regulations: The Federal rules restrict any use of the information to criminally investigate or prosecute any alcohol or drug abuse patient.[facility]In the event this information is protected by the Federal Confidentiality of Alcohol and Drug Abuse Patient Records regulations: The Federal rules restrict any use of the information to criminally investigate or prosecute any alcohol or drug abuse patient.[facility]In the event this information is protected by the Federal Confidentiality of Alcohol and Drug Abuse Patient Records regulations: The Federal rules restrict any use of the information to criminally investigate or prosecute any alcohol or drug abuse patient.[facility]In the event this information is protected by the Federal Confidentiality of Alcohol and Drug Abuse Patient Records regulations: The Federal rules restrict any use of the information to criminally investigate or prosecute any alcohol or drug abuse patient.[facility]In the event this information is protected by the Federal Confidentiality of Alcohol and Drug Abuse Patient Records regulations: The Federal rules restrict any use of the information to criminally investigate or prosecute any alcohol or drug abuse patient.[facility]In the event this information is protected by the Federal Confidentiality of Alcohol and Drug Abuse Patient Records regulations: The Federal rules restrict any use of the information to criminally investigate or prosecute any alcohol or drug abuse patient.[facility]In the event this information is protected by the Federal Confidentiality of Alcohol and Drug Abuse Patient Records regulations: The Federal rules restrict any use of the information to criminally investigate or prosecute any alcohol or drug abuse patient.[facility]In the event this information is protected by the Federal Confidentiality of Alcohol and Drug Abuse Patient Records regulations: The Federal rules restrict any use of the information to criminally investigate or prosecute any alcohol or drug abuse patient.[facility]In the event this information is protected by the Federal Confidentiality of Alcohol and Drug Abuse Patient Records regulations: The Federal rules restrict any use of the information to criminally investigate or prosecute any alcohol or drug abuse patient.[facility]In the event this information is protected by the Federal Confidentiality of Alcohol and Drug Abuse Patient Records regulations: The Federal rules restrict any use of the information to criminally investigate or prosecute any alcohol or drug abuse patient.[facility]In the event this information is protected by the Federal Confidentiality of Alcohol and Drug Abuse Patient Records regulations: The Federal rules restrict any use of the information to criminally investigate or prosecute any alcohol or drug abuse patient.[facility]In the event this information is protected by the Federal Confidentiality of Alcohol and Drug Abuse Patient Records regulations: The Federal rules restrict any use of the information to criminally investigate or prosecute any alcohol or drug abuse patient.[facility]In the event this information is protected by the Federal Confidentiality of Alcohol and Drug Abuse Patient Records regulations: The Federal rules restrict any use of the information to criminally investigate or prosecute any alcohol or drug abuse patient.[facility]In the event this information is protected by the Federal Confidentiality of Alcohol and Drug Abuse Patient Records regulations: The Federal rules restrict any use of the information to criminally investigate or prosecute any alcohol or drug abuse patient.[facility]In the event this information is protected by the Federal Confidentiality of Alcohol and Drug Abuse Patient Records regulations: The Federal rules restrict any use of the information to criminally investigate or prosecute any alcohol or drug abuse patient.[facility]In the event this information is protected by the Federal Confidentiality of Alcohol and Drug Abuse Patient Records regulations: The Federal rules restrict any use of the information to criminally investigate or prosecute any alcohol or drug abuse patient.[facility]In the event this information is protected by the Federal Confidentiality of Alcohol and Drug Abuse Patient Records regulations: The Federal rules restrict any use of the information to criminally investigate or prosecute any alcohol or drug abuse patient.[facility]In the event this information is protected by the Federal Confidentiality of Alcohol and Drug Abuse Patient Records regulations: The Federal rules restrict any use of the information to criminally investigate or prosecute any alcohol or drug abuse patient.[facility]In the event this information is protected by the Federal Confidentiality of Alcohol and Drug Abuse Patient Records regulations: The Federal rules restrict any use of the information to criminally investigate or prosecute any alcohol or drug abuse patient.[facility]In the event this information is protected by the Federal Confidentiality of Alcohol and Drug Abuse Patient Records regulations: The Federal rules restrict any use of the information to criminally investigate or prosecute any alcohol or drug abuse patient.[facility]In the event this information is protected by the Federal Confidentiality of Alcohol and Drug Abuse Patient Records regulations: The Federal rules restrict any use of the information to criminally investigate or prosecute any alcohol or drug abuse patient.[facility]In the event this information is protected by the Federal Confidentiality of Alcohol and Drug Abuse Patient Records regulations: The Federal rules restrict any use of the information to criminally investigate or prosecute any alcohol or drug abuse patient.[facility]In the event this information is protected by the Federal Confidentiality of Alcohol and Drug Abuse Patient Records regulations: The Federal rules restrict any use of the information to criminally investigate or prosecute any alcohol or drug abuse patient.[facility]In the event this information is protected by the Federal Confidentiality of Alcohol and Drug Abuse Patient Records regulations: The Federal rules restrict any use of the information to criminally investigate or prosecute any alcohol or drug abuse patient.[facility]In the event this information is protected by the Federal Confidentiality of Alcohol and Drug Abuse Patient Records regulations: The Federal rules restrict any use of the information to criminally investigate or prosecute any alcohol or drug abuse patient.[facility]In the event this information is protected by the Federal Confidentiality of Alcohol and Drug Abuse Patient Records regulations: The Federal rules restrict any use of the information to criminally investigate or prosecute any alcohol or drug abuse patient.[facility]In the event this information is protected by the Federal Confidentiality of Alcohol and Drug Abuse Patient Records regulations: The Federal rules restrict any use of the information to criminally investigate or prosecute any alcohol or drug abuse patient.[facility]In the event this information is protected by the Federal Confidentiality of Alcohol and Drug Abuse Patient Records regulations: The Federal rules restrict any use of the information to criminally investigate or prosecute any alcohol or drug abuse patient.[facility]In the event this information is protected by the Federal Confidentiality of Alcohol and Drug Abuse Patient Records regulations: The Federal rules restrict any use of the information to criminally investigate or prosecute any alcohol or drug abuse patient.[facility]In the event this information is protected by the Federal Confidentiality of Alcohol and Drug Abuse Patient Records regulations: The Federal rules restrict any use of the information to criminally investigate or prosecute any alcohol or drug abuse patient.[facility]In the event this information is protected by the Federal Confidentiality of Alcohol and Drug Abuse Patient Records regulations: The Federal rules restrict any use of the information to criminally investigate or prosecute any alcohol or drug abuse patient.[facility]In the event this information is protected by the Federal Confidentiality of Alcohol and Drug Abuse Patient Records regulations: The Federal rules restrict any use of the information to criminally investigate or prosecute any alcohol or drug abuse patient.[facility]In the event this information is protected by the Federal Confidentiality of Alcohol and Drug Abuse Patient Records regulations: The Federal rules restrict any use of the information to criminally investigate or prosecute any alcohol or drug abuse patient.[facility]In the event this information is protected by the Federal Confidentiality of Alcohol and Drug Abuse Patient Records regulations: The Federal rules restrict any use of the information to criminally investigate or prosecute any alcohol or drug abuse patient.[facility]In the event this information is protected by the Federal Confidentiality of Alcohol and Drug Abuse Patient Records regulations: The Federal rules restrict any use of the information to criminally investigate or prosecute any alcohol or drug abuse patient.[facility]In the event this information is protected by the Federal Confidentiality of Alcohol and Drug Abuse Patient Records regulations: The Federal rules restrict any use of the information to criminally investigate or prosecute any alcohol or drug abuse patient.[facility]In the event this information is protected by the Federal Confidentiality of Alcohol and Drug Abuse Patient Records regulations: The Federal rules restrict any use of the information to criminally investigate or prosecute any alcohol or drug abuse patient.[facility]In the event this information is protected by the Federal Confidentiality of Alcohol and Drug Abuse Patient Records regulations: The Federal rules restrict any use of the information to criminally investigate or prosecute any alcohol or drug abuse patient.[facility]In the event this information is protected by the Federal Confidentiality of Alcohol and Drug Abuse Patient Records regulations: The Federal rules restrict any use of the information to criminally investigate or prosecute any alcohol or drug abuse patient.[facility]In the event this information is protected by the Federal Confidentiality of Alcohol and Drug Abuse Patient Records regulations: The Federal rules restrict any use of the information to criminally investigate or prosecute any alcohol or drug abuse patient.[facility]In the event this information is protected by the Federal Confidentiality of Alcohol and Drug Abuse Patient Records regulations: The Federal rules restrict any use of the information to criminally investigate or prosecute any alcohol or drug abuse patient.[facility]In the event this information is protected by the Federal Confidentiality of Alcohol and Drug Abuse Patient Records regulations: The Federal rules restrict any use of the information to criminally investigate or prosecute any alcohol or drug abuse patient.[facility]In the event this information is protected by the Federal Confidentiality of Alcohol and Drug Abuse Patient Records regulations: The Federal rules restrict any use of the information to criminally investigate or prosecute any alcohol or drug abuse patient.[facility]In the event this information is protected by the Federal Confidentiality of Alcohol and Drug Abuse Patient Records regulations: The Federal rules restrict any use of the information to criminally investigate or prosecute any alcohol or drug abuse patient.[facility]In the event this information is protected by the Federal Confidentiality of Alcohol and Drug Abuse Patient Records regulations: The Federal rules restrict any use of the information to criminally investigate or prosecute any alcohol or drug abuse patient.[facility]In the event this information is protected by the Federal Confidentiality of Alcohol and Drug Abuse Patient Records regulations: The Federal rules restrict any use of the information to criminally investigate or prosecute any alcohol or drug abuse patient.[facility]In the event this information is protected by the Federal Confidentiality of Alcohol and Drug Abuse Patient Records regulations: The Federal rules restrict any use of the information to criminally investigate or prosecute any alcohol or drug abuse patient.[facility]In the event this information is protected by the Federal Confidentiality of Alcohol and Drug Abuse Patient Records regulations: The Federal rules restrict any use of the information to criminally investigate or prosecute any alcohol or drug abuse patient.[facility]In the event this information is protected by [...] or prosecute any alcohol or drug abuse patient.[facility]In the event this information is protected by the Federal Confidentiality of Alcohol and Drug Abuse Patient Records regulations: The Federal rules restrict any use of the information to criminally investigate or prosecute any alcohol or drug abuse patient.[facility]In the event this information is protected by the Federal Confidentiality of Alcohol and Drug Abuse Patient Records regulations: The Federal rules restrict any use of the information to criminally investigate or prosecute any alcohol or drug abuse patient.[facility]In the event this information is protected by the Federal Confidentiality of Alcohol and Drug Abuse Patient Records regulations: The Federal rules restrict any use of the information to criminally investigate or prosecute any alcohol or drug abuse patient.[facility]In the event this information is protected by the Federal Confidentiality of Alcohol and Drug Abuse Patient Records regulations: The Federal rules restrict any use of the information to criminally investigate or prosecute any alcohol or drug abuse patient.[facility]In the event this information is protected by the Federal Confidentiality of Alcohol and Drug Abuse Patient Records regulations: The Federal rules restrict any use of the information to criminally investigate or prosecute any alcohol or drug abuse patient.[facility]In the event this information is protected by the Federal Confidentiality of Alcohol and Drug Abuse Patient Records regulations: The Federal rules restrict any use of the information to criminally investigate or prosecute any alcohol or drug abuse patient.[facility]In the event this information is protected by the Federal Confidentiality of Alcohol and Drug Abuse Patient Records regulations: The Federal rules restrict any use of the information to criminally investigate or prosecute any alcohol or drug abuse patient.[facility]In the event this information is protected by the Federal Confidentiality of Alcohol and Drug Abuse Patient Records regulations: The Federal rules restrict any use of the information to criminally investigate or prosecute any alcohol or drug abuse patient.[facility]In the event this information is protected by the Federal Confidentiality of Alcohol and Drug Abuse Patient Records regulations: The Federal rules restrict any use of the information to criminally investigate or prosecute any alcohol or drug abuse patient.[facility]In the event this information is protected by the Federal Confidentiality of Alcohol and Drug Abuse Patient Records regulations: The Federal rules restrict any use of the information to criminally investigate or prosecute any alcohol or drug abuse patient.[facility]In the event this information is protected by the Federal Confidentiality of Alcohol and Drug Abuse Patient Records regulations: The Federal rules restrict any use of the information to criminally investigate or prosecute any alcohol or drug abuse patient.[facility]In the event this information is protected by the Federal Confidentiality of Alcohol and Drug Abuse Patient Records regulations: The Federal rules restrict any use of the information to criminally investigate or prosecute any alcohol or drug abuse patient.[facility]In the event this information is protected by the Federal Confidentiality of Alcohol and Drug Abuse Patient Records regulations: The Federal rules restrict any use of the information to criminally investigate or prosecute any alcohol or drug abuse patient.[facility]In the event this information is protected by the Federal Confidentiality of Alcohol and Drug Abuse Patient Records regulations: The Federal rules restrict any use of the information to criminally investigate or prosecute any alcohol or drug abuse patient.[facility]In the event this information is protected by the Federal Confidentiality of Alcohol and Drug Abuse Patient Records regulations: The Federal rules restrict any use of the information to criminally investigate or prosecute any alcohol or drug abuse patient.[facility]In the event this information is protected by the Federal Confidentiality of Alcohol and Drug Abuse Patient Records regulations: The Federal rules restrict any use of the information to criminally investigate or prosecute any alcohol or drug abuse patient.[facility]In the event this information is protected by the Federal Confidentiality of Alcohol and Drug Abuse Patient Records regulations: The Federal rules restrict any use of the information to criminally investigate or prosecute any alcohol or drug abuse patient.[facility]In the event this information is protected by the Federal Confidentiality of Alcohol and Drug Abuse Patient Records regulations: The Federal rules restrict any use of the information to criminally investigate or prosecute any alcohol or drug abuse patient.[facility]In the event this information is protected by the Federal Confidentiality of Alcohol and Drug Abuse Patient Records regulations: The Federal rules restrict any use of the information to criminally investigate or prosecute any alcohol or drug abuse patient.[facility]In the event this information is protected by the Federal Confidentiality of Alcohol and Drug Abuse Patient Records regulations: The Federal rules restrict any use of the information to criminally investigate or prosecute any alcohol or drug abuse patient.[facility]In the event this information is protected by the Federal Confidentiality of Alcohol and Drug Abuse Patient Records regulations: The Federal rules restrict any use of the information to criminally investigate or prosecute any alcohol or drug abuse patient.[facility]In the event this information is protected by the Federal Confidentiality of Alcohol and Drug Abuse Patient Records regulations: The Federal rules restrict any use of the information to criminally investigate or prosecute any alcohol or drug abuse patient.[facility]In the event this information is protected by the Federal Confidentiality of Alcohol and Drug Abuse Patient Records regulations: The Federal rules restrict any use of the information to criminally investigate or prosecute any alcohol or drug abuse patient.[facility]In the event this information is protected by the Federal Confidentiality of Alcohol and Drug Abuse Patient Records regulations: The Federal rules restrict any use of the information to criminally investigate or prosecute any alcohol or drug abuse patient.[facility]In the event this information is protected by the Federal Confidentiality of Alcohol and Drug Abuse Patient Records regulations: The Federal rules restrict any use of the information to criminally investigate or prosecute any alcohol or drug abuse patient.[facility]In the event this information is protected by the Federal Confidentiality of Alcohol and Drug Abuse Patient Records regulations: The Federal rules restrict any use of the information to criminally investigate or prosecute any alcohol or drug abuse patient.[facility]In the event this information is protected by the Federal Confidentiality of Alcohol and Drug Abuse Patient Records regulations: The Federal rules restrict any use of the information to criminally investigate or prosecute any alcohol or drug abuse patient.[facility]In the event this information is protected by the Federal Confidentiality of Alcohol and Drug Abuse Patient Records regulations: The Federal rules restrict any use of the information to criminally investigate or prosecute any alcohol or drug abuse patient.[facility] SpringfieldIn the event this information is protected by the Federal Confidentiality of Alcohol and Drug Abuse Patient Records regulations: The Federal rules restrict any use of the information to criminally investigate or prosecute any alcohol or drug abuse patient.[facility] SpringfieldIn the event this information is protected by the Federal Confidentiality of Alcohol and Drug Abuse Patient Records regulations: The Federal rules restrict any use of the information to criminally investigate or prosecute any alcohol or drug abuse patient.[facility] SpringfieldIn the event this information is protected by the Federal Confidentiality of Alcohol and Drug Abuse Patient Records regulations: The Federal rules restrict any use of the information to criminally investigate or prosecute any alcohol or drug abuse patient.[facility] SpringfieldIn the event this information is protected by the Federal Confidentiality of Alcohol and Drug Abuse Patient Records regulations: The Federal rules restrict any use of the information to criminally investigate or prosecute any alcohol or drug abuse patient.[facility] SpringfieldIn the event this information is protected by the Federal Confidentiality of Alcohol and Drug Abuse Patient Records regulations: The Federal rules restrict any use of the information to criminally investigate or prosecute any alcohol or drug abuse patient.[facility] SpringfieldIn the event this information is protected by the Federal Confidentiality of Alcohol and Drug Abuse Patient Records regulations: The Federal rules restrict any use of the information to criminally investigate or prosecute any alcohol or drug abuse patient.[facility] SpringfieldIn the event this information is protected by the Federal Confidentiality of Alcohol and Drug Abuse Patient Records regulations: The Federal rules restrict any use of the information to criminally investigate or prosecute any alcohol or drug abuse patient.[facility] SpringfieldIn the event this information is protected by the Federal Confidentiality of Alcohol and Drug Abuse Patient Records regulations: The Federal rules restrict any use of the information to criminally investigate or prosecute any alcohol or drug abuse patient.[facility] SpringfieldIn the event this information is protected by the Federal Confidentiality of Alcohol and Drug Abuse Patient Records regulations: The Federal rules restrict any use of the information to criminally investigate or prosecute any alcohol or drug abuse patient.[facility] SpringfieldIn the event this information is protected by the Federal Confidentiality of Alcohol and Drug Abuse Patient Records regulations: The Federal rules restrict any use of the information to criminally investigate or prosecute any alcohol or drug abuse patient.[facility] SpringfieldIn the event this information is protected by the Federal Confidentiality of Alcohol and Drug Abuse Patient Records regulations: The Federal rules restrict any use of the information to criminally investigate or prosecute any alcohol or drug abuse patient.[facility] SpringfieldIn the event this information is protected by the Federal Confidentiality of Alcohol and Drug Abuse Patient Records regulations: The Federal rules restrict any use of the information to criminally investigate or prosecute any alcohol or drug abuse patient.[facility] SpringfieldIn the event this information is protected by the Federal Confidentiality of Alcohol and Drug Abuse Patient Records regulations: The Federal rules restrict any use of the information to criminally investigate or prosecute any alcohol or drug abuse patient.[facility] SpringfieldIn the event this information is protected by the Federal Confidentiality of Alcohol and Drug Abuse Patient Records regulations: The Federal rules restrict any use of the information to criminally investigate or prosecute any alcohol or drug abuse patient.[facility] SpringfieldIn the event this information is protected by the Federal Confidentiality of Alcohol and Drug Abuse Patient Records regulations: The Federal rules restrict any use of the information to criminally investigate or prosecute any alcohol or drug abuse patient.[facility] SpringfieldIn the event this information is protected by the Federal Confidentiality of Alcohol and Drug Abuse Patient Records regulations: The Federal rules restrict any use of the information to criminally investigate or prosecute any alcohol or drug abuse patient.[facility] SpringfieldIn the event this information is protected by the Federal Confidentiality of Alcohol and Drug Abuse Patient Records regulations: The Federal rules restrict any use of the information to criminally investigate or prosecute any alcohol or drug abuse patient.[facility] SpringfieldIn the event this information is protected by the Federal Confidentiality of Alcohol and Drug Abuse Patient Records regulations: The Federal rules restrict any use of the information to criminally investigate or prosecute any alcohol or drug abuse patient.[facility]In the event this information is protected by the Federal Confidentiality of Alcohol and Drug Abuse Patient Records regulations: The Federal rules restrict any use of the information to criminally investigate or prosecute any alcohol or drug abuse patient.[facility]In the event this information is protected by the Federal Confidentiality of Alcohol and Drug Abuse Patient Records regulations: The Federal rules restrict any use of the information to criminally investigate or prosecute any alcohol or drug abuse patient.[facility] SpringfieldIn the event this information is protected by [...] or prosecute any alcohol or drug abuse patient.[facility] SpringfieldIn the event this information is protected by the Federal Confidentiality of Alcohol and Drug Abuse Patient Records regulations: The Federal rules restrict any use of the information to criminally investigate or prosecute any alcohol or drug abuse patient.[facility]In the event this information is protected by the Federal Confidentiality of Alcohol and Drug Abuse Patient Records regulations: The Federal rules restrict any use of the information to criminally investigate or prosecute any alcohol or drug abuse patient.[facility] SpringfieldIn the event this information is protected by the Federal Confidentiality of Alcohol and Drug Abuse Patient Records regulations: The Federal rules restrict any use of the information to criminally investigate or prosecute any alcohol or drug abuse patient.[facility]In the event this information is protected by the Federal Confidentiality of Alcohol and Drug Abuse Patient Records regulations: The Federal rules restrict any use of the information to criminally investigate or prosecute any alcohol or drug abuse patient.[facility] SpringfieldIn the event this information is protected by the Federal Confidentiality of Alcohol and Drug Abuse Patient Records regulations: The Federal rules restrict any use of the information to criminally investigate or prosecute any alcohol or drug abuse patient.[facility] SpringfieldIn the event this information is protected by the Federal Confidentiality of Alcohol and Drug Abuse Patient Records regulations: The Federal rules restrict any use of the information to criminally investigate or prosecute any alcohol or drug abuse patient.[facility] SpringfieldIn the event this information is protected by the Federal Confidentiality of Alcohol and Drug Abuse Patient Records regulations: The Federal rules restrict any use of the information to criminally investigate or prosecute any alcohol or drug abuse patient.[facility] SpringfieldIn the event this information is protected by the Federal Confidentiality of Alcohol and Drug Abuse Patient Records regulations: The Federal rules restrict any use of the information to criminally investigate or prosecute any alcohol or drug abuse patient.[facility]In the event this information is protected by the Federal Confidentiality of Alcohol and Drug Abuse Patient Records regulations: The Federal rules restrict any use of the information to criminally investigate or prosecute any alcohol or drug abuse patient.[facility] SpringfieldIn the event this information is protected by the Federal Confidentiality of Alcohol and Drug Abuse Patient Records regulations: The Federal rules restrict any use of the information to criminally investigate or prosecute any alcohol or drug abuse patient.[facility]In the event this information is protected by the Federal Confidentiality of Alcohol and Drug Abuse Patient Records regulations: The Federal rules restrict any use of the information to criminally investigate or prosecute any alcohol or drug abuse patient.[facility]In the event this information is protected by the Federal Confidentiality of Alcohol and Drug Abuse Patient Records regulations: The Federal rules restrict any use of the information to criminally investigate or prosecute any alcohol or drug abuse patient.[facility] SpringfieldIn the event this information is protected by the Federal Confidentiality of Alcohol and Drug Abuse Patient Records regulations: The Federal rules restrict any use of the information to criminally investigate or prosecute any alcohol or drug abuse patient.[facility]In the event this information is protected by the Federal Confidentiality of Alcohol and Drug Abuse Patient Records regulations: The Federal rules restrict any use of the information to criminally investigate or prosecute any alcohol or drug abuse patient.[facility]In the event this information is protected by the Federal Confidentiality of Alcohol and Drug Abuse Patient Records regulations: The Federal rules restrict any use of the information to criminally investigate or prosecute any alcohol or drug abuse patient.[facility] SpringfieldIn the event this information is protected by the Federal Confidentiality of Alcohol and Drug Abuse Patient Records regulations: The Federal rules restrict any use of the information to criminally investigate or prosecute any alcohol or drug abuse patient.[facility]In the event this information is protected by the Federal Confidentiality of Alcohol and Drug Abuse Patient Records regulations: The Federal rules restrict any use of the information to criminally investigate or prosecute any alcohol or drug abuse patient.[facility]In the event this information is protected by the Federal Confidentiality of Alcohol and Drug Abuse Patient Records regulations: The Federal rules restrict any use of the information to criminally investigate or prosecute any alcohol or drug abuse patient.[facility] SpringfieldIn the event this information is protected by the Federal Confidentiality of Alcohol and Drug Abuse Patient Records regulations: The Federal rules restrict any use of the information to criminally investigate or prosecute any alcohol or drug abuse patient.[facility]In the event this information is protected by the Federal Confidentiality of Alcohol and Drug Abuse Patient Records regulations: The Federal rules restrict any use of the information to criminally investigate or prosecute any alcohol or drug abuse patient.[facility]In the event this information is protected by the Federal Confidentiality of Alcohol and Drug Abuse Patient Records regulations: The Federal rules restrict any use of the information to criminally investigate or prosecute any alcohol or drug abuse patient.[facility]In the event this information is protected by the Federal Confidentiality of Alcohol and Drug Abuse Patient Records regulations: The Federal rules restrict any use of the information to criminally investigate or prosecute any alcohol or drug abuse patient.[facility]In the event this information is protected by the Federal Confidentiality of Alcohol and Drug Abuse Patient Records regulations: The Federal rules restrict any use of the information to criminally investigate or prosecute any alcohol or drug abuse patient.[facility]In the event this information is protected by the Federal Confidentiality of Alcohol and Drug Abuse Patient Records regulations: The Federal rules restrict any use of the information to criminally investigate or prosecute any alcohol or drug abuse patient.[facility]In the event this information is protected by the Federal Confidentiality of Alcohol and Drug Abuse Patient Records regulations: The Federal rules restrict any use of the information to criminally investigate or prosecute any alcohol or drug abuse patient.[facility]In the event this information is protected by the Federal Confidentiality of Alcohol and Drug Abuse Patient Records regulations: The Federal rules restrict any use of the information to criminally investigate or prosecute any alcohol or drug abuse patient.[facility]In the event this information is protected by the Federal Confidentiality of Alcohol and Drug Abuse Patient Records regulations: The Federal rules restrict any use of the information to criminally investigate or prosecute any alcohol or drug abuse patient.[facility]In the event this information is protected by the Federal Confidentiality of Alcohol and Drug Abuse Patient Records regulations: The Federal rules restrict any use of the information to criminally investigate or prosecute any alcohol or drug abuse patient.[facility]In the event this information is protected by the Federal Confidentiality of Alcohol and Drug Abuse Patient Records regulations: The Federal rules restrict any use of the information to criminally investigate or prosecute any alcohol or drug abuse patient.[facility]In the event this information is protected by the Federal Confidentiality of Alcohol and Drug Abuse Patient Records regulations: The Federal rules restrict any use of the information to criminally investigate or prosecute any alcohol or drug abuse patient.[facility]In the event this information is protected by the Federal Confidentiality of Alcohol and Drug Abuse Patient Records regulations: The Federal rules restrict any use of the information to criminally investigate or prosecute any alcohol or drug abuse patient.[facility]In the event this information is protected by the Federal Confidentiality of Alcohol and Drug Abuse Patient Records regulations: The Federal rules restrict any use of the information to criminally investigate or prosecute any alcohol or drug abuse patient.[facility]In the event this information is protected by the Federal Confidentiality of Alcohol and Drug Abuse Patient Records regulations: The Federal rules restrict any use of the information to criminally investigate or prosecute any alcohol or drug abuse patient.[facility]In the event this information is protected by the Federal Confidentiality of Alcohol and Drug Abuse Patient Records regulations: The Federal rules restrict any use of the information to criminally investigate or prosecute any alcohol or drug abuse patient.[facility]In the event this information is protected by the Federal Confidentiality of Alcohol and Drug Abuse Patient Records regulations: The Federal rules restrict any use of the information to criminally investigate or prosecute any alcohol or drug abuse patient.[facility]In the event this information is protected by the Federal Confidentiality of Alcohol and Drug Abuse Patient Records regulations: The Federal rules restrict any use of the information to criminally investigate or prosecute any alcohol or drug abuse patient.[facility]In the event this information is protected by the Federal Confidentiality of Alcohol and Drug Abuse Patient Records regulations: The Federal rules restrict any use of the information to criminally investigate or prosecute any alcohol or drug abuse patient.[facility]In the event this information is protected by the Federal Confidentiality of Alcohol and Drug Abuse Patient Records regulations: The Federal rules restrict any use of the information to criminally investigate or prosecute any alcohol or drug abuse patient.[facility]In the event this information is protected by the Federal Confidentiality of Alcohol and Drug Abuse Patient Records regulations: The Federal rules restrict any use of the information to criminally investigate or prosecute any alcohol or drug abuse patient.[facility]In the event this information is protected by the Federal Confidentiality of Alcohol and Drug Abuse Patient Records regulations: The Federal rules restrict any use of the information to criminally investigate or prosecute any alcohol or drug abuse patient.[facility]In the event this information is protected by the Federal Confidentiality of Alcohol and Drug Abuse Patient Records regulations: The Federal rules restrict any use of the information to criminally investigate or prosecute any alcohol or drug abuse patient.[facility]In the event this information is protected by the Federal Confidentiality of Alcohol and Drug Abuse Patient Records regulations: The Federal rules restrict any use of the information to criminally investigate or prosecute any alcohol or drug abuse patient.[facility]In the event this information is protected by the Federal Confidentiality of Alcohol and Drug Abuse Patient Records regulations: The Federal rules restrict any use of the information to criminally investigate or prosecute any alcohol or drug abuse patient.[facility]In the event this information is protected by the Federal Confidentiality of Alcohol and Drug Abuse Patient Records regulations: The Federal rules restrict any use of the information to criminally investigate or prosecute any alcohol or drug abuse patient.[facility]In the event this information is protected by the Federal Confidentiality of Alcohol and Drug Abuse Patient Records regulations: The Federal rules restrict any use of the information to criminally investigate or prosecute any alcohol or drug abuse patient.[facility]In the event this information is protected by the Federal Confidentiality of Alcohol and Drug Abuse Patient Records regulations: The Federal rules restrict any use of the information to criminally investigate or prosecute any alcohol or drug abuse patient.[facility]In the event this information is protected by the Federal Confidentiality of Alcohol and Drug Abuse Patient Records regulations: The Federal rules restrict any use of the information to criminally investigate or prosecute any alcohol or drug abuse patient.[facility]In the event this information is protected by the Federal Confidentiality of Alcohol and Drug Abuse Patient Records regulations: The Federal rules restrict any use of the information to criminally investigate or prosecute any alcohol or drug abuse patient.[facility] SpringfieldIn the event this information is protected by [...] or prosecute any alcohol or drug abuse patient.[facility]In the event this information is protected by the Federal Confidentiality of Alcohol and Drug Abuse Patient Records regulations: The Federal rules restrict any use of the information to criminally investigate or prosecute any alcohol or drug abuse patient.[facility]In the event this information is protected by the Federal Confidentiality of Alcohol and Drug Abuse Patient Records regulations: The Federal rules restrict any use of the information to criminally investigate or prosecute any alcohol or drug abuse patient.[facility]In the event this information is protected by the Federal Confidentiality of Alcohol and Drug Abuse Patient Records regulations: The Federal rules restrict any use of the information to criminally investigate or prosecute any alcohol or drug abuse patient.[facility] Reason for Visit (unrecogniz ed section and content) Reason Comments Patient Question rectal bleeding Reason Onset Date Comments Refill Request 06/15/2021 Reason Comments Medication Problem Reason Onset Date Comments Refill Request 06/23/2021 Reason Onset Date Comments Refill Request 06/25/2021 Reason Comments FYI-No Action Needed Reason Onset Date Comments Refill Request 07/20/2021 Reason Comments Opened In Error Reason Onset Date Comments Refill Request 08/04/2021 Reason Onset Date Comments Transition Of Care 08/06/2021 TCM initial o utreach-dc'd from [facility] [place] 08/05/21 Reason Comments Corneal Ulcer Follow Up Reason Onset Date Comments Transition Of Care 08/06/2021 TCM Pharmacis t hospital discharge 08/05 Reason Comments Eye Pain Both Eyes OD Specialty Diagnoses / Procedures Referred By Contac t Referred To Contact HOSP INPATIENT Diagnoses Endophthalmitis Conjunctivitis endophathalmitis, corneal ulcer Procedures NA [facility] [id number] [id number] Referral ID Status Reason Start Date Expiration Date Visits Re quested Visits Authorized [id number] 1 Reason Comments Cough fever, chills, runny nose, ZAPATA, body aches x3 days Reason Comments Results Reason Comments requesting a new nebulizer Reason Comments Follow Up Reason Onset Date Comments Transition Of Care 08/23/2021 TCM follow-up Reason Onset Date Comments Refill Request 08/30/2021 Reason Onset Date Comments Transition Of Care 09/01/2021 TCM follow-up Reason Onset Date Comments Community Monitoring Outreach 09/01/2021 [facility] [place] bronchitis with COPD Enrollment Reason Onset Date [...] Pt reported burning with urination x2 wks, Zapata, nausea. Reason Comments Question Reason Comments New [...] x 1 month Reason Comments ER F/U [facility] ER 11/13/22 from a fall with [...] Comments Cough hot/cold flashes x 1 month Reason Onset Date Comments Refill Request 04/12/2023 Reason Comments Patient Update Patient Request Reason Comments ER F/U [facility] 04/08/23 chest ashley n 04/08/23 Reason Comments no pain medication urine test not back y et Reason Onset Date Comments Refill Request 04/17/2023 Reason Onset Date Comments Population Health Navigation Outreach 04/19/2023 Mail Reason Comments Returning Patient's Call Reason Onset Date Comments Refill Request 04/26/2023 Reason Comments F/U 3 Month Reason Comments New Patient FIbromyalgia Back Pain Lower-right worse th an left Neck Pain Right side worse gabriela n left Reason Comments Pain management consult Reason Onset Date Comments Refill Request 05/23/2023 Reason Comments Forms [facility] Reason Onset Date Comments Refill Request 06/21/2023 Reason Onset Date Comments Refill Request 06/23/2023 Reason Comments Recheck Medication follow up ; Nucynta, does not want to lower dose Reason Comments Medication Request Reason Comments Medication Follow-up Reason Onset Date Comments Refill Request 07/03/2023 Reason Comments Mouth/Lip Problem Reason Onset Date Comments Refill Request 07/10/2023 Reason Onset Date Comments Refill Request 07/21/2023 Reason Onset Date Comments Refill Request 07/20/2023 Future Appointment 07/20/2023 Reason Comments Medication Follow-up Reason Onset Date Comments Refill Request 08/03/2023 Reason Comments Sore on left butt check Reason Comments Acute Visit Sore on left buttock s getting worse Reason Onset Date Comments Refill Request 09/13/2023 Reason Comments Derm Problem open sores on back x couple months, itching Reason Onset Date Comments Refill Request 10/06/2023 Reason Comments Order for supplies Reason Comments Insurance Authorization Reason Comments patient insurance changed this month now needs another gluc Reason Comments Nucynta PA with new insurance Reason Onset Date Comments Refill Request 11/16/2023 Reason Comments script for xl pull ups Reason Onset Date Comments Refill Request 11/03/2023 Reason Onset Date Comments Refill Request 11/20/2023 Reason Onset Date Comments Refill Request 11/30/2023 Reason Comments F/U 3 Month [facility] 11/20/23: ches t pain & insomnia & César Pomerene 11/25/23: insomnia, UTI & low sodium Reason Onset Date Comments Refill Request 12/14/2023 Reason Onset Date Comments Refill Request 12/25/2023 Reason Onset Date Comments Refill Request 12/29/2023 Reason Onset Date Comments Refill Request 01/04/2024 Reason Onset Date Comments Refill Request 01/05/2024 Reason Onset Date Comments Refill Request 01/08/2024 Reason Comments F/U 3 Month Reason Onset Date Comments Refill Request 01/26/2024 Reason Onset Date Comments Refill Request 01/29/2024 Reason Comments Orders Reason Comments Nasal Congestion drainage, cough, hea dache x 3-4 days Reason Onset Date Comments Refill Request 03/21/2024 Reason Comments Fax for nebulizer supplies Reason Comments Nebulizer / supplies problem Reason Onset Date Comments Refill Request 04/19/2024 Reason Onset Date Comments Refill Request 04/23/2024 Reason Onset Date Comments Refill Request 05/17/2024 Reason Onset Date Comments Refill Request 05/30/2024 Reason Onset Date Comments Refill Request 06/18/2024 Reason Onset Date Comments Refill Request 07/04/2024 Reason Onset Date Comments Refill Request 08/06/2024 Reason Onset Date Comments Refill Request 10/07/2024 Reason Onset Date Comments Refill Request 10/25/2024 Reason Comments Follow Up Diabetic Foot Check Diabetic Foot Care Reason Comments Vaginal Problem Reason Comments Vaginal Problem Vagina sore (boil) Care Teams (unrecognized sec tion and content) Hired Hand Relationship Specialty Start Date End Date Tiff Pearson MD [address] [place], [place] [id number] PCP - General 04/27/09 [facility] Home Care NA 05/28/15 Medical Services NA 05/28/15 [facility] Casemanager NA 06/01/15 Hired Hand Relationship Specialty Start Date End Date Tiff Pearson MD [address] [place], [place] [id number] PCP - General 04/27/09 [facility] Home [facility] NA 05/28/15 Medical Services NA 05/28/15 [employer] Casemanager NA 06/01/15 Hired Hand Relationship Specialty Start Date End Date Tiff Pearson MD [address] [place], [place] [id number] PCP - General 04/27/09 [facility] Home Care NA 05/28/15 Medical Services NA 05/28/15 [employer] Casemanager NA 06/01/15 Hired Hand Relationship Specialty Start Date End Date Tiff Pearson MD [address] [place], [place] [id number] PCP - General 04/27/09 [facility] Home Care NA 05/28/15 Medical Services NA 05/28/15 [employer] Casemanager NA 06/01/15 Hired Hand Relationship Specialty Start Date End Date Tiff Pearson MD [address] [place], [place] 744332 [phone] PCP - General 04/27/09 [facility] Home Care NA 05/28/15 Medical Services NA 05/28/15 [employer] Casemanager NA 06/01/15 Hired Hand Relationship Specialty Start Date End Date Tiff Pearson MD [address] [place] [address] PCP - General 04/27/09 [facility] Home Care NA 05/28/15 Medical Services NA 05/28/15 [employer] Casemanager NA 06/01/15 Hired Hand Relationship Specialty Start Date End Date Tiff Pearson MD [address] [place] [address] PCP - General 04/27/09 [facility] Home [facility] NA 05/28/15 Medical Services NA 05/28/15 [employer] Casemanager NA 06/01/15 Hired Hand Relationship Specialty Start Date End Date Tiff Pearson MD [address] [place] [address] PCP - General 04/27/09 [facility] Home Care NA 05/28/15 Medical Services NA 05/28/15 [employer] Casemanager 06/01/15 Hired Hand Relationship Specialty Start Date End Date Tiff Pearson MD [address] [place] [address] PCP - General 04/27/09 Quiana Lara, [facility] [address] [place] [address] Transitional Care Pharmacist Pharmacy 08/06/21 09/04/21 Fernanda Yoo, senior windows engineer Instrument Panel Assembler 08/05/21 09/02/21 [facility] Home Care NA 05/28/15 Medical Services NA 05/28/15 [employer] Casemanager 06/01/15 Hired Hand Relationship Specialty Start Date End Date Tiff Pearson MD [address] [place], [place] [address] PCP - General 04/27/09 Fernanda Yoo, senior windows engineer Instrument Panel Assembler 08/05/21 09/02/21 [facility] Home Care NA 05/28/15 Medical Services NA 05/28/15 [employer] Casemanager 06/01/15 Hired Hand Relationship Specialty Start Date End Date Tiff Pearson MD [address] [place], [place] [id number] PCP - General 04/27/09 Fernanda Yoo, senior windows engineer Instrument Panel Assembler 08/05/21 09/02/21 [facility] Home Care NA 05/28/15 Medical Services NA 05/28/15 [employer] Casemanager NA 06/01/15 Hired Hand Relationship Specialty Start Date End Date Tiff Pearson MD [address] [place], [place] [id number] PCP - General 04/27/09 [facility] Home Care NA 05/28/15 Medical Services NA 05/28/15 [employer] Casemanager NA 06/01/15 Hired Hand Relationship Specialty Start Date End Date Tiff Pearson MD [address] [place], [place] [id number] PCP - General 04/27/09 Fernanda Yoo, senior windows engineer Instrument Panel Assembler 08/05/21 09/02/21 [facility] Home Care NA 05/28/15 Medical Services NA 05/28/15 [facility] Casemanager NA 06/01/15 Hired Hand Relationship Specialty Start Date End Date Tiff Pearson MD [address] [place], [place] [id number] PCP - General 04/27/09 Fernanda Yoo, senior windows engineer Instrument Panel Assembler 08/05/21 09/02/21 [facility] Home Care NA 05/28/15 Medical Services NA 05/28/15 [facility] Cas[facility] NA 06/01/15 Hired Hand Relationship Specialty Start Date End Date Tiff Pearson MD [address] [place], [place] [id number] PCP - General 04/27/09 Fernanda Yoo, senior windows engineer Instrument Panel Assembler 08/05/21 09/02/21 [facility] Home Care NA 05/28/15 Medical Services NA 05/28/15 [employer] Casemanager NA 06/01/15 Hired Hand Relationship Specialty Start Date End Date Tiff Pearson MD [address] [place], [place] [address]231 PCP - General 04/27/09 Fernanda Yoo, senior windows engineer Instrument Panel Assembler 08/05/21 09/02/21 [facility] Home Care NA 05/28/15 Medical Services NA 05/28/15 [employer] Casemanager NA 06/01/15 Hired Hand Relationship Specialty Start Date End Date Tiff Pearson MD [address] [place], [place] [id number] PCP - General 04/27/09 Fernanda Yoo, senior windows engineer Instrument Panel Assembler 08/05/21 09/01/21 [facility] Home Care NA 05/28/15 Medical Services NA 05/28/15 [employer] Casemanager NA 06/01/15 Hired Hand Relationship Specialty Start Date End Date Tiff Pearson MD [address] [place], [place] [id number] PCP - General 04/27/09 Fernanda Yoo, senior windows engineer Instrument Panel Assembler 08/05/21 09/01/21 [facility] Home Care NA 05/28/15 Medical Services NA 05/28/15 [employer] Casemanager NA 06/01/15 Hired Hand Relationship Specialty Start Date End Date Tiff Pearson MD [address] [place], [place] [id number] [phone] PCP - General 04/27/09 Fernanda Yoo, senior windows engineer Instrument Panel Assembler 08/05/21 09/01/21 [facility] Home Care NA 05/28/15 Medical Services NA 05/28/15 [employer] Casemanager NA 06/01/15 Hired Hand Relationship Specialty Start Date End Date Tiff Pearson MD [address] [place], [place] 163588 [phone] PCP - General 04/27/09 [facility] Home Care NA 05/28/15 Medical Services NA 05/28/15 [employer] Casemanager NA 06/01/15 Hired Hand Relationship Specialty Start Date End Date Tiff Pearson MD [address] [place], [place] 290803 [phone] PCP - General 04/27/09 [facility] Home Care NA 05/28/15 Medical Services NA 05/28/15 [employer] Casemanager NA 06/01/15 Hired Hand Relationship Specialty Start Date End Date Tiff Pearson MD [address] [place], [place] 234855 [phone] PCP - General 04/27/09 [facility] Home Care NA 05/28/15 Medical Services NA 05/28/15 [employer] Casemanager NA 06/01/15 Hired Hand Relationship Specialty Start Date End Date Tiff Pearson MD [address] [place], [place] [id number] [phone] PCP - General 04/27/09 [facility] Home Care NA 05/28/15 Medical Services NA 05/28/15 [employer] Casemanager NA 06/01/15 Hired Hand Relationship Specialty Start Date End Date Tiff Pearson MD [address] [place], [place] [address]8521 PCP - General 04/27/09 [facility] Home Care NA 05/28/15 Medical Services NA 05/28/15 [employer] Casemanager NA 06/01/15 Team Status: Active Member Role Status Dates Dr. Tiff Pearson MD Family Provider Active Dr. Tiff Pearson MD Primary Care Provider Active Team Status: Inactive Member Role Status Dates Dr. Tiff Pearson MD Primary Care Provider, Referr ing Provider Active Elisabeth Chapman Attending Provider Active Team Status: Active Member Role Status Dates Dr. Tiff Pearson MD Primary Care Provider, Referr ing Provider Active Dr. Braden Londono MD Attending Provider Active Team Status: Inactive Member Role Status Dates Dr. Tiff Pearson MD Primary Care Provider Active Dr. Joseph Ramesh DO Attending Provider, Emergency P srikanth Active Team Status: Inactive Member Role Status Dates Dr. Tiff Pearson MD Primary Care Provider Active Dr. Jas Nunez MD Emergency Provider Active Hired Hand Relationship Specialty Start Date End Date Tiff Pearson MD [address] [place], [place] [id number] PCP - General 04/27/09 [facility] Home Care NA 05/28/15 Medical Services NA 05/28/15 [employer] Casemanager NA 06/01/15 Hired Hand Relationship Specialty Start Date End Date Tiff Pearson MD [address] [place], [place] [address]38491 PCP - General 04/27/09 [facility] Home Care NA 05/28/15 Medical Services NA 05/28/15 [facility] Casemanager NA 06/01/15 Hired Hand Relationship Specialty Start Date End Date Tiff Pearson MD [address] [place], [place] 287001 PCP - General 04/27/09 [facility] Home Care NA 05/28/15 Medical Services NA 05/28/15 [employer] Casemanager NA 06/01/15 Team Status: Inactive Member Role Status Dates Dr. Tiff Pearson MD Primary Care Provider Active Dr. Jas Nunez MD Attending Provider, Emergency Provi will Active Team Status: Inactive Member Role Status Dates Dr. Tiff Pearson MD Primary Care Provider Active Dr. Gaetano Doyle MD Attending Provider, Emergency Pro vider Active Team Status: Inactive Member Role Status Dates Dr. Tiff Pearson MD Primary Care Provider Active Dr. Bethanie Trevizo MD Attending Provider, Referring Pr ovider Active Hired Hand Relationship Specialty Start Date End Date Tiff Pearson MD [address] [place], [place] [phone] PCP - General 04/27/09 [facility] Home Care NA 05/28/15 Medical Services NA 05/28/15 [facility] Casemanager NA 06/01/15 Hired Hand Relationship Specialty Start Date End Date Tiff Pearson MD [address] [place], [place] [phone] PCP - General 04/27/09 [facility] Home Care NA 05/28/15 Medical Services NA 05/28/15 [employer] Casemanager NA 06/01/15 Hired Hand Relationship Specialty Start Date End Date Tiff Pearson MD [address] [place], [place] [address] PCP - General 04/27/09 [facility] Home Care NA 05/28/15 Medical Services NA 05/28/15 [employer] Casemanager NA 06/01/15 Hired Hand Relationship Specialty Start Date End Date Tiff Pearson MD [address] [place], [place] [address] PCP - General 04/27/09 [facility] Home Care NA 05/28/15 Medical Services NA 05/28/15 [employer] Casemanager NA 06/01/15 Hired Hand Relationship Specialty Start Date End Date Tiff Pearson MD [address] [place], [place] 24[address]81 PCP - General 04/27/09 [facility] Home [facility] NA 05/28/15 Medical Services NA 05/28/15 [employer] Casemanager NA 06/01/15 Hired Hand Relationship Specialty Start Date End Date Tiff Pearson MD [address] [place] [address] PCP - General 04/27/09 [facility] Home [facility] NA 05/28/15 Medical Services NA 05/28/15 [facility] Casemanager NA 06/01/15 Team Status: Inactive Member Role Status Dates Dr. Tiff Pearson MD Primary Care Provider Active Dr. Han Hooks MD Emergency Provider Active Hired Hand Relationship Specialty Start Date End Date Tiff Pearson MD [address] [place] [address] PCP - General 04/27/09 [facility] Home [facility] NA 05/28/15 Medical Services NA 05/28/15 [facility] Casemanager 06/01/15 Hired Hand Relationship Specialty Start Date End Date Tiff Pearson MD [address] [place] [address] PCP - General 04/27/09 [facility] Home [facility] NA 05/28/15 Medical Services NA 05/28/15 [facility] Casemanager 06/01/15 Hired Hand Relationship Specialty Start Date End Date Tiff Pearson MD [address] [place] [address] PCP - General 04/27/09 [facility] Home [facility] NA 05/28/15 Medical Services NA 05/28/15 [employer] Casemanager NA 06/01/15 Hired Hand Relationship Specialty Start Date End Date Tiff Pearson MD [address] [place] [address] PCP - General 04/27/09 [facility] Home Care 05/28/15 Medical Services NA 05/28/15 [facility] Casemanager 06/01/15 Hired Hand Relationship Specialty Start Date End Date Tiff Pearson MD [address] [place] [address] PCP - General 04/27/09 [facility] Home [facility] NA 05/28/15 Medical Services 05/28/15 [facility] Casemanager 06/01/15 Hired Hand Relationship Specialty Start Date End Date Tiff Pearson MD [address] [place] [address] PCP - General 04/27/09 [facility] Home Care 05/28/15 Medical Services 05/28/15 [employer] Casemanager 06/01/15 Hired Hand Relationship Specialty Start Date End Date Tiff Pearson MD [address] [place] [address] PCP - General 04/27/09 [facility] Home [facility] 05/28/15 Medical Services 05/28/15 [employer] Casemanager NA 06/01/15 Hired Hand Relationship Specialty Start Date End Date Tiff Pearson MD [address] [place] [address] PCP - General 04/27/09 [facility] Home [facility] NA 05/28/15 Medical Services NA 05/28/15 [facility] Casemanager NA 06/01/15 Hired Hand Relationship Specialty Start Date End Date Tiff Pearson MD [address] [place], [place] [address] PCP - General 04/27/09 [facility] Home [facility] NA 05/28/15 Medical Services NA 05/28/15 [facility] Casemanager NA 06/01/15 Team Status: Inactive Member Role Status Dates Dr. Tiff Pearson MD Primary Care Provider, Referr ing Provider Active Jamar RUVALCABA, PA Attending Provider Active Team Status: Inactive Member Role Status Dates Dr. Tiff Pearson MD Primary Care Provider Active Dr. Sean Craig MD Emergency Provider Active Hired Hand Relationship Specialty Start Date End Date Tiff Pearson MD [address] [place], [place] [address]41 PCP - General 04/27/09 [facility] Home [facility] NA 05/28/15 Medical Services NA 05/28/15 [facility] 06[facility] Hired Hand Relationship Specialty Start Date End Date Tiff Pearson MD [address] [place], [place] 89[address] PCP - General 04/27/09 [facility] Home Care NA 05/28/15 Medical Services NA 05/28/15 [facility] Casemanager 06/01/15 Hired Hand Relationship Specialty Start Date End Date Tiff Pearson MD [address] [place] [address] PCP - General 04/27/09 [facility] Home [facility] NA 05/28/15 Medical Services NA 05/28/15 [facility] Casemanager 06/01/15 Hired Hand Relationship Specialty Start Date End Date Tiff Pearson MD [address] [place] [address] PCP - General 04/27/09 [facility] Home [facility] NA 05/28/15 Medical Services NA 05/28/15 [facility] Casemanager 06/01/15 Hired Hand Relationship Specialty Start Date End Date Tiff Pearson MD [address] [place] [address] PCP - General 04/27/09 [facility] Home [facility] NA 05/28/15 Medical Services NA 05/28/15 [facility] Casemanager NA 06/01/15 Hired Hand Relationship Specialty Start Date End Date Tiff Pearson MD [address] [place] [address] PCP - General 04/27/09 [facility] Home [facility] NA 05/28/15 Medical Services NA 05/28/15 [facility] Casemanager NA 06/01/15 Hired Hand Relationship Specialty Start Date End Date Tiff Pearson MD [address] [place], [place] 375041 PCP - General 04/27/09 [facility] Home [facility] NA 05/28/15 Medical Services NA 05/28/15 [facility] Cas[facility] NA 06/01/15 Team Status: Active Member Role Status Dates Dr. Tiff Pearson MD Primary Care Provider, Referr ing Provider Active PEG Sy Attending Provider, Other Provider A ctive Team Status: Inactive Member Role Status Dates Dr. Tiff Pearson MD Primary Care Provider Active Dr. Braden Londono MD Attending Provider Active Team Status: Inactive Member Role Status Dates Dr. Tiff Pearson MD Primary Care Provider, Referr ing Provider Active PEG Sy Attending Provider Active Team Status: Inactive Member Role Status Dates Dr. Tiff Pearson MD Primary Care Provider Active Dr. Sean Craig MD Attending Provider, Emergency Provider Active Hired Hand Relationship Specialty Start Date End Date Tiff Pearson MD [address] [place], [place] [address] PCP - General 04/27/09 [facility] Home Care NA 05/28/15 Medical Services NA 05/28/15 [facility] Casemanager NA 06/01/15 Hired Hand Relationship Specialty Start Date End Date Tiff Pearson MD [address] [place], [place] [address] PCP - General 04/27/09 [facility] Home [facility] NA 05/28/15 Medical Services NA 05/28/15 [facility] Casemanager NA 06/01/15 Hired Hand Relationship Specialty Start Date End Date Tiff Pearson MD [address] [place], [place] 269731 PCP - General 04/27/09 [facility] Home Care NA 05/28/15 Medical Services NA 05/28/15 [facility] Casemanager NA 06/01/15 Hired Hand Relationship Specialty Start Date End Date Tfif Pearson MD [address] [place] [address] PCP - General 04/27/09 [facility] Home Care NA 05/28/15 Medical Services NA 05/28/15 [facility] Casemanager NA 06/01/15 Hired Hand Relationship Specialty Start Date End Date Tiff Pearson MD [address] [place], [place] [address]171 PCP - General 04/27/09 [facility] Home Care NA 05/28/15 Medical Services NA 05/28/15 [facility] Casemanager NA 06/01/15 Hired Hand Relationship Specialty Start Date End Date Tiff Pearson MD [address] [place] [address] PCP - General 04/27/09 [facility] Home [facility] NA 05/28/15 Medical Services NA 05/28/15 [facility] Cas[facility]ager NA 06/01/15 Hired Hand Relationship Specialty Start Date End Date Tiff Pearson MD [address] [place], [place] 139321 PCP - General 04/27/09 [facility] Home Care NA 05/28/15 Medical Services NA 05/28/15 [facility] Casemanager NA 06/01/15 Hired Hand Relationship Specialty Start Date End Date Tiff Pearson MD [address] [place] [address] PCP - General 04/27/09 [facility] Home Care NA 05/28/15 Medical Services NA 05/28/15 [facility] Casemanager NA 06/01/15 Hired Hand Relationship Specialty Start Date End Date Tiff Pearson MD [address] [place], [place] [address] PCP - General 04/27/09 [facility] Home Care NA 05/28/15 Medical Services NA 05/28/15 [facility] Casemanager NA 06/01/15 Hired Hand Relationship Specialty Start Date End Date Tiff Pearson MD [address] [place] [address] PCP - General 04/27/09 [facility] Home [facility] NA 05/28/15 Medical Services NA 05/28/15 [facility] Casemanager NA 06/01/15 Hired Hand Relationship Specialty Start Date End Date Tiff Pearson MD [address] [place], [place] 254771 PCP - General 04/27/09 [facility] Home Care NA 05/28/15 Medical Services NA 05/28/15 [facility] Casemanager NA 06/01/15 Hired Hand Relationship Specialty Start Date End Date Tiff Pearson MD [address] [place] [address] PCP - General 04/27/09 [facility] Home Care NA 05/28/15 Medical Services NA 05/28/15 [facility] Casemanager NA 06/01/15 Hired Hand Relationship Specialty Start Date End Date Tiff Pearson MD [address] [place], [place] 451451 PCP - General 04/27/09 [facility] Home Care NA 05/28/15 Medical Services NA 05/28/15 [facility] Casemanager NA 06/01/15 Hired Hand Relationship Specialty Start Date End Date Tiff Pearson MD [address] [place] [address] PCP - General 04/27/09 [facility] Home [facility] NA 05/28/15 Medical Services NA 05/28/15 [facility] Cas[facility] NA 06/01/15 Hired Hand Relationship Specialty Start Date End Date Tiff Pearson MD [address] [place] [address] PCP - General 04/27/09 [facility] Home Care NA 05/28/15 Medical Services NA 05/28/15 [facility] Casemanager NA 06/01/15 Hired Hand Relationship Specialty Start Date End Date Tiff Pearson MD [address] [place] [address] PCP - General 04/27/09 [facility] Home Care NA 05/28/15 Medical Services NA 05/28/15 [facility] Casemanager NA 06/01/15 Hired Hand Relationship Specialty Start Date End Date Tiff Pearson MD [address] [place] [address] PCP - General 04/27/09 Fernanda Yoo, RN [address] [id number] Primary Care Instrument Panel Assembler 08/05/21 09/01/21 [facility] Home Care NA 05/28/15 Medical Services NA 05/28/15 [facility] Cas[facility] NA 06/01/15 Hired Hand Relationship Specialty Start Date End Date Tiff Pearson MD [address] [place], [place] [address]111 PCP - General 04/27/09 [facility] Home Care NA 05/28/15 Medical Services NA 05/28/15 [facility] Casemanager NA 06/01/15 Hired Hand Relationship Specialty Start Date End Date Tiff Pearson MD [address] [place], [place] 7[address]61 PCP - General 04/27/09 [facility] Home Care NA 05/28/15 Medical Services NA 05/28/15 [facility] Casemanager NA 06/01/15 Hired Hand Relationship Specialty Start Date End Date Tiff Pearson MD [address] [place], [place] [id number] PCP - General 04/27/09 [facility] Home Care NA 05/28/15 Medical Services NA 05/28/15 [facility] 06/01/15 Hired Hand Relationship Specialty Start Date End Date Tiff Pearson MD [address] [place] [address] PCP - General 04/27/09 Esteban Gabriel APRN.METAL MOCKUP MAKER [address] [place] [address] [facility] 02/12/24 Shawn Veronica CASING IN LINE FEEDER.BASKET PATCHER [address] [place] [address] [facility] 02/12/24 [facility] Home Care NA 05/28/15 Medical Services NA 05/28/15 Mian Ren NA 06/01/15 Hired Hand Relationship Specialty Start Date End Date Tiff Pearson MD [address] [place] [address] PCP - General 04/27/09 Esteban Gabriel APRN.METAL MOCKUP MAKER [address] [place] [address] [facility] 02/12/24 Shawn Veronica APRN.BASKET PATCHER [address] [place] [id number] [facility] 02/12/24 [facility] Home Care 05/28/15 Medical Services NA 05/28/15 Mian Ren NA 06/01/15 Hired Hand Relationship Specialty Start Date End Date Tiff Pearson MD [address] [place] [address] PCP - General 04/27/09 Esteban Gabriel CASING IN LINE FEEDER.METAL MOCKUP MAKER [address] [place] [address] [facility] 02/12/24 Shawn Veronica CASING IN LINE FEEDER.BASKET PATCHER [address] [place], [place] [address]38331 [phone] [facility] 02/12/24 [facility] Home Care NA 05/28/15 Medical Services NA 05/28/15 Mian Ren NA 06/01/15 Hired Hand Relationship Specialty Start Date End Date Tiff Pearson MD [address] [place] [address] PCP - General 04/27/09 Esteban Gabriel, CASING IN LINE FEEDER.METAL MOCKUP MAKER [address] [place] [address] [facility] 02/12/24 Shawn Veronica, CASING IN LINE FEEDER.BASKET PATCHER [address] [place] [address] [facility] 02/12/24 [facility] Home Care NA 05/28/15 Medical Services NA 05/28/15 Main [facility] NA 06/01/15 Hired Hand Relationship Specialty Start Date End Date Tiff Pearson MD [address] [place] [address] PCP - General 04/27/09 Esteban Gabriel, CASING IN LINE FEEDER.METAL MOCKUP MAKER [address] [place] [address] [facility] 02/12/24 Shawn Veronica, CASING IN LINE FEEDER.BASKET PATCHER [address] [place] [address] [facility] 02/12/24 [facility] Home Care NA 05/28/15 Medical Services NA 05/28/15 Mian Ren 06/01/15 Hired Hand Relationship Specialty Start Date End Date Tiff Pearson MD [address] [place], [place] [address] PCP - General 04/27/09 Esteban Gabriel, CASING IN LINE FEEDER.METAL MOCKUP MAKER [address] [place] [address] [facility] 02/12/24 Shawn Veronica CASING IN LINE FEEDER.BASKET PATCHER [address] [place] [address] [facility] 02/12/24 [facility] Home Care NA 05/28/15 Medical Services NA 05/28/15 Mian Ren 06/01/15 Hired Hand Relationship Specialty Start Date End Date Tiff Pearson MD [address] [place] [address] PCP - General 04/27/09 Esteban Gabriel, CASING IN LINE FEEDER.METAL MOCKUP MAKER [address] [place] [address] [facility] 02/12/24 Shawn Veronica CASING IN LINE FEEDER.BASKET PATCHER [address] [place] [address] [facility] 02/12/24 [facility] Home Care NA 05/28/15 Medical Services NA 05/28/15 [facility] NA 06/01/15 Hired Hand Relationship Specialty Start Date End Date Tiff Pearson MD [address] [place] [address] PCP - General 04/27/09 Esteban Gabriel, CASING IN LINE FEEDER.METAL MOCKUP MAKER [address] [place] [address] [facility] 02/12/24 Shawn Veronica CASING IN LINE FEEDER.BASKET PATCHER [address] [place] [address] [facility] 02/12/24 [facility] Home Care NA 05/28/15 Medical Services NA 05/28/15 [facility] NA 06/01/15 Hired Hand Relationship Specialty Start Date End Date Tiff Pearson MD [address] [place] [address] PCP - General 04/27/09 Esteban Gabriel, CASING IN LINE FEEDER.METAL MOCKUP MAKER [address] [place] [address] [facility] 02/12/24 Shawn Veronica CASING IN LINE FEEDER.BASKET PATCHER [address] [place] [address] [facility] 02/12/24 [facility] Home Care NA 05/28/15 Medical Services NA 05/28/15 [facility] NA 06/01/15 Hired Hand Relationship Specialty Start Date End Date Tiff Pearson MD [address] [place] [address] PCP - General 04/27/09 Esteban Gabriel, CASING IN LINE FEEDER.METAL MOCKUP MAKER [address] [place] [address] [facility] 02/12/24 Shawn Veronica CASING IN LINE FEEDER.BASKET PATCHER [address] [place], [place] [address] [facility] 02/12/24 [facility] Home Care NA 05/28/15 Medical Services NA 05/28/15 [facility] Hired Hand Relationship Specialty Start Date End Date Tiff Pearson MD [address] [place] [address] PCP - General 04/27/09 Esteban Gabriel, CASING IN LINE FEEDER.METAL MOCKUP MAKER [address] [place] [address] [facility] 02/12/24 Shawn Veronica CASING IN LINE FEEDER.BASKET PATCHER [address] [place] [address] [facility] 02/12/24 [facility] NA 05/28/15 Medical Services NA 05/28/15 [facility] 06/01/15 Hired Hand Relationship Specialty Start Date End Date Tiff Pearson MD [address] [place] [address] PCP - General 04/27/09 Esteban Gabriel, CASING IN LINE FEEDER.METAL MOCKUP MAKER [address] [place] [address] [facility] 02/12/24 Shawn Veronica, CASING IN LINE FEEDER.BASKET PATCHER [address] [place] [address] [facility] 05/28/24 [facility] Home [facility] NA 05/28/15 Medical Services NA 05/28/15 [facility] NA 06/01/15 Hired Hand Relationship Specialty Start Date End Date Tiff Pearson MD [address] [place] [address] PCP - General 04/27/09 Esteban Gabriel, CASING IN LINE FEEDER.METAL MOCKUP MAKER [address] [place] [address] [facility] 02/12/24 Shawn Veronica, CASING IN LINE FEEDER.BASKET PATCHER [address] [place] [address] [facility] 05/28/24 [facility] Home [facility] NA 05/28/15 Medical Services NA 05/28/15 [facility] NA 06/01/15 Hired Hand Relationship Specialty Start Date End Date Tiff Pearson MD [address] [place] [address] PCP - General 04/27/09 Esteban Gabirel APRN.METAL MOCKUP MAKER [address] [place] [address] [facility] 02/12/24 Shawn Veronica CASING IN LINE FEEDER.BASKET PATCHER [address] [place] [address] [facility] 05/28/24 [facility] Home [facility] NA 05/28/15 Medical Services NA 05/28/15 [facility] NA 06/01/15 Hired Hand Relationship Specialty Start Date End Date Tiff Pearson MD [address] [place] [address] PCP - General 04/27/09 Esteban Gabriel CASING IN LINE FEEDER.METAL MOCKUP MAKER [address] [place] [address] [facility] 02/12/24 Shawn Veronica CASING IN LINE FEEDER.BASKET PATCHER [address] [place] [address] [facility] 05/28/24 [facility] Home [facility] NA 05/28/15 Medical Services NA 05/28/15 [facility] NA 06/01/15 Hired Hand Relationship Specialty Start Date End Date Tiff Pearson MD [address] [place] [address] PCP - General 04/27/09 Esteban Gabriel, CASING IN LINE FEEDER.METAL MOCKUP MAKER [address] [place] [address] [facility] 02/12/24 Shawn Veronica, CASING IN LINE FEEDER.BASKET PATCHER [address] [place] [address] [facility] 05/28/24 [facility] Home Care NA 05/28/15 Medical Services NA 05/28/15 [facility] 06/01/15 Hired Hand Relationship Specialty Start Date End Date Tiff Pearson MD [address] [place] [address] PCP - General 04/27/09 Shawn Veronica, CASING IN LINE FEEDER.BASKET PATCHER [address] [place] [address] [facility] 05/28/24 Esteban Gabriel, CASING IN LINE FEEDER.METAL MOCKUP MAKER [address] [place] [address] [facility] 07/24/24 [facility] Home Care NA 05/28/15 Medical Services NA 05/28/15 Lukastan Martinezmanager NA 06/01/15 Hired Hand Relationship Specialty Start Date End Date Tiff Pearson MD [address] [place] [address] PCP - General 04/27/09 Shawn Veronica APRN.BASKET PATCHER [address] [place] [address] [facility] 05/28/24 Esteban Gabriel, VIRIDIANA.METAL MOCKUP MAKER [address] [place] [address] [facility] 07/24/24 [facility] Home Care NA 05/28/15 Medical Services NA 05/28/15 [facility] 06/01/15 Hired Hand Relationship Specialty Start Date End Date Tiff Pearson MD [address] [place] [address] PCP - General 04/27/09 Shawn Veronica CASING IN LINE FEEDER.BASKET PATCHER [address] [place] [address] [facility] 05/28/24 Esteban Gabriel, CASING IN LINE FEEDER.METAL MOCKUP MAKER [address] [place] [address] [facility] 07/24/24 [facility] Home Care NA 05/28/15 Medical Services NA 05/28/15 [facility] 06/01/15 Hired Hand Relationship Specialty Start Date End Date Tiff Pearson MD [address] [place] [address] PCP - General 04/27/09 Shawn Veronica APRN.BASKET PATCHER [address] [place] [address] [facility] 05/28/24 Estebna Gabriel APRN.METAL MOCKUP MAKER [address] [place] [address] [facility] 07/24/24 [facility] Home Care NA 05/28/15 Medical Services NA 05/28/15 [facility] 06/01/15 Hired Hand Relationship Specialty Start Date End Date Tiff Pearson MD [address] [place] [address] PCP - General 04/27/09 Shawn Veronica CASING IN LINE FEEDER.BASKET PATCHER [address] [place] [address] [facility] 05/28/24 Esteban Gabriel, CASING IN LINE FEEDER.METAL MOCKUP MAKER [address] [place] [address] [facility] 07/24/24 [facility] Home Care NA 05/28/15 Medical Services NA 05/28/15 [facility] NA 06/01/15 Hired Hand Relationship Specialty Start Date End Date Tiff Pearson MD [address] [place] [address] PCP - General 04/27/09 Shawn Veronica APRN.BASKET PATCHER [address] [place] [address] [facility] 05/28/24 Esteban Gabriel, CASING IN LINE FEEDER.METAL MOCKUP MAKER [address] [place], [place] [address] [facility] 07/24/24 [facility] NA 05/28/15 Medical Services NA 05/28/15 [facility] NA 06/01/15 Team Status: Active Member Role/Relationship Status Dates Dr. Tiff Pearson MD Family Provider Active Dr. Tiff Pearson MD Primary Care Provider Active Team Status: Inactive Member Role/Relationship Status Dates Dr. Tiff Pearson MD Primary Care Provider Active Start: June 26, 2024 End: June 26, 2024 Dr. Braden Londono MD Attending Provider Active S tart: June 26, 2024 End: June 26, 2024 Team Status: Inactive Member Role/Relationship Status Dates Dr. Tiff Pearson MD Primary Care Provider Active Start: September 13, 2024 End: September 13, 2024 Dr. Braden Londono MD Attending Provider Active S tart: September 13, 2024 End: September 13, 2024 Team Status: Inactive Member Role/Relationship Status Dates Dr. Tiff Pearson MD Primary Care Provider Active Start: September 30, 2024 End: September 30, 2024 Dr. Braden Londono MD Attending Provider Active S tart: September 30, 2024 End: September 30, 2024 Hired Hand Relationship Specialty Start Date End Date Tiff Pearson MD [address] [place], [place] [id number] PCP - General 04/27/09 Shawn Veronica CASING IN LINE FEEDER.BASKET PATCHER [address] [place], [place] [id number] [facility] 05/28/24 Esteban Gabriel, CASING IN LINE FEEDER.METAL MOCKUP MAKER [address] [place] [address] [facility] 07/24/24 [facility] Home Care NA 05/28/15 Medical Services NA 05/28/15 [facility] NA 06/01/15 Hired Hand Relationship Specialty Start Date End Date Tiff Pearson MD [address] [place] [address] PCP - General 04/27/09 Shawn Veronica APRN.BASKET PATCHER [address] [place] [address] [facility] 05/28/24 Esteban Gabriel APRN.METAL MOCKUP MAKER [address] [place] [address] [facility] 07/24/24 [facility] Home Care NA 05/28/15 Medical Services NA 05/28/15 [facility] NA 06/01/15 Hired Hand Relationship Specialty Start Date End Date Tiff Pearson MD [address] [place] [address] PCP - General 04/27/09 Shawn Veronica APRN.BASKET PATCHER [address] [place] [address] [facility] 05/28/24 Esteban Gabriel APRN.METAL MOCKUP MAKER [address] [facility] [place] [address] [facility] 07/24/24 [facility] Home Care NA 05/28/15 Medical Services NA 05/28/15 Mian Ren NA 06/01/15 Goals (unrecognized section and content) Goals may be documented in a n alternate sectionGoals may be documented in an alternate sectionGoals may be documented in an alternate sectionGoals may be documented in an alternate sectionGoals may be documented in an alternate sectionGoals may be documented in an alternate sectionGoals may be documented in an alternate sectionGoals may be documented in an alternate sectionGoals may be documented in an alternate sectionGoals may be documented in an alternate sectionGoals may be documented in an alternate sectionGoals may be documented in an alternate sectionGoals may be documented in an alternate section INFORMATION SOURCE (unrecogn ized section and content) DATE CREATED AUTHOR 07/07/2022 [facility] DATE CREATED AUTHOR AUTHOR'S ORGANIZ ATION 05/05/2023 [facility] DATE CREATED AUTHOR AUTHOR'S ORGANIZ ATION 03/20/2024 [facility] DATE CREATED AUTHOR AUTHOR'S ORGANIZ ATION 10/18/2024 [facility] DATE CREATED AUTHOR AUTHOR'S ORGANIZ ATION 11/14/2024 [facility] FOR RECORDS PERTAINING TO PATIENTS WHO [...] BE BASED ON THE PRIMARY CLINICAL RECORDS. [facility] [address] [facility]. provides no warranty or guarantee of the accuracy or completeness of information in this document.
--- NOTE | 2024-11-28 19:47 | CT_ITS ---
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 CONTRAST: 90 VOLUME: Isovue 370 mL One or more dose reduction techniques were used (e.g., Automated exposure control, adjustment of the mA and/or kV according to patient size, use of iterative reconstruction technique. RADIATION DOSE SUMMARY: CTDlvol: 34 mGy DLP: 938 1. mGycm COMPARISON: 06/10/2021 FINDINGS: There is an ostomy in the left abdomen and there is a wound medial to that with a loop of abnormal colon with a thickened wall that is adjacent to the wound. I do not see definitive direct CT evidence of a fistula but on image 63 of 123, there is loss of the fat planes between the colon in the anterior abdominal wall and if there are clinical findings of drainage, this could be the location of the fistula. Liver, adrenal glands are unremarkable. Probable old calcified hematoma in the spleen. No renal mass or hydronephrosis. No pancreatic mass or inflammation. Negative for small bowel obstruction. Markedly thickened wall of the rectosigmoid and sigmoid colon with significant robust inflammation of the adjacent fat concerning for a rather severe mount of colitis. Bladder unremarkable. 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 There is no free air. CT/Abdomen/Pelvis W IV Cont ONLY IMPRESSION: Ostomy on the right. Abnormally thickened wall of the sigmoid colon adjacent t o the abdominal wall could be the source of the fistula although this is not proven. Robust abnormal thickening and inflammati on surrounding the sigmoid colon in the pelvis concerning for severe colitis Reading [facility]
[2024-11-28 21:07] LABS: Hematocrit 32.3 % (37-47); Hemoglobin 9.8 g/dL (12.0-15.0); Immature Granulocytes Count 0.040 X10^3/uL (0.0-0.0); Mean Corp Hgb Conc 30.3 g/dL (32-36); Mean Corpuscular Volume 87.8 fL (81-99); Mean Platelet Vol. 10.4 fl (6.2-12.0); NRBC Flagged by Analyzer 0 % (0-5); Platelet Count 217 K/mm3 (150-450); RBC Distribution Width CV 15.4 % (11.6-14.6); RBC Distribution Width SD 49.1 fl (35.1-43.9); Red Blood Count 3.68 M/mm3 (4.2-5.4); White Blood Count 6.3 K/mm3 (4.4-11.0)
[2024-11-28 21:23] LABS: AST(SGOT) 12 U/L (<=31); Alanine Aminotransfer ALT/SGPT 7 U/L (<=34); Albumin, Serum 3.7 g/dL (3.4-4.8); Alkaline Phosphatase 72 U/L (35-104); Anion Gap 12 (5-15); BUN 22 mg/dL (4-19); BUN/Creat Ratio 15.2 RATIO (10-20); Calcium,Total 9.3 mg/dL (7.6-11.0); Carbon Dioxide 22.5 mmol/L (21.0-32.0); Chloride 102 mmol/L (98-108); Estimated Creatinine Clearance 40.24 ml/min (50-250); Globulin 3.8 g/dL (2.2-4.2); Glucose 104 mg/dL (70-99); Potassium 4.0 mmol/L (3.3-5.1)
[2024-11-28 22:00] VITALS: BP 121/88; PULSE 75; RESP 18; O2SAT 96
[2024-11-28 23:56] VITALS: BP 157/59; PULSE 61; RESP 18; TEMP 36.6; O2SAT 99
--- NOTE | 2024-11-29 01:25 | EDS_ITS ---
HPI History of Present Illness Chief Complaint: Wound Check Narrative Narrative: Patient is a 64-year-old female presenting to the emergency department for an abdominal wound. Patient has a past medical history of ostomy placement, hypertension, pacemaker placement, obesity, diabetes. Patient's is at bedside. The states that the wound appeared about 2 weeks ago and it is just not healed since then which is why they are here today. They state that she has had a fistula in the same spot before and this is what they were concerned about. She denies any fever, chills, nausea, vomiting, abdominal pain. States that she feels well otherwise. Is having normal ostomy output. [facility] Medical History Schizophrenia Anxiety Depression Diabetes Former smoker Migraines Secondary pulmonary arterial hypertension Bradycardia Paranoid schizophrenia COPD (chronic obstructive pulmonary disease) Asthma Tracheitis Anxiety and depression GERD (gastroesophageal reflux disease) Colon cancer Obesity (BMI 30.0-34.9) Type I diabetes mellitus Hyperlipidemia Hypertension Home Medications ?Medication ?Instructions ?Recorded ?Last Taken ?Type topiramate 100 mg tablet 100 mg PO BID 03/01/1712/06 09:00 History hydrocortisone 2.5 % topical cream 1 applic topical DA JOLIE 30 days ##30 10/31/17 Unknown History insulin glargine 100 unit/mL (3 12 unit subcut QHS PRN 10/31/17 Unknown History mL) subcutaneous pen (Lantus hyperglycemia Solostar U-100 Insulin) glimepiride 4 mg tablet 4 mg PO DAILY 30 days ##30 0 11/01/17 Unknown History melatonin 5 mg-pyridoxine (vitamin 2 ea PO QHS 8 Unknown History B6) 1 mg tablet (Melatonin (with B6)) omeprazole 20 mg capsule,delayed 20 mg PO DAILY 12/06/18 09:00 History release cariprazine 3 mg capsule 3 mg PO QHS mental status Unknown History fluphenazine HCl 1 mg tablet 1 mg PO QHS 12/04/18 Unkn own History guaifenesin 600 mg tablet, 600 mg PO TID 12/04/18 10/0 05/22 09:00 History extended release 12 hr pravastatin 40 mg tablet 40 mg PO DAILY 12/04/18 Unkn own History tapentadol 75 mg tablet 75 mg PO TID pain 12/04/18 1 09:00 History magnesium oxide 400 mg (241.3 mg 400 mg PO DAILY 04/16 Unknown History magnesium) tablet hydrocortisone 2.5 % topical cream 1 applic MS QHS PRN hemorrhoids 05/17/21 Unknown Rx with perineal applicator #30 grams hyoscyamine sulfate 0.125 mg 0.25 mg (2 x 0.125 mg) PO Q6H PRN 04/08/23 Unknown Rx sublingual tablet epigastric discomfort #12 ta bs trazodone 50 mg tablet 50 mg PO QHS PRN sleep #10 t abs 11/05/23 Unknown Rx hyoscyamine sulfate 0.125 mg 0.125 mg sublingual Q8H P RN 11/20/23 Unknown Rx sublingual tablet (Levsin/SL) dyspepsia #20 tabs suvorexant 10 mg tablet (Belsomra) 20 mg PO DAILY 11/04 08/27 Unknown History valbenazine 80 mg capsule 80 mg PO DAILY 11/20/23 Unkn own History (Ingrezza) ciprofloxacin HCl 500 mg tablet 500 mg PO BID 10 days #20 tabs 11/28/24 Unknown Rx (Cipro) metronidazole 500 mg tablet 500 mg PO BID 10 days #20 tabs 11/28/24 Unknown Rx Allergy/AdvReac Type Severity Reaction Status Date / Time azithromycin Allergy Rash Verified 11/28/24 17:56 Cephalosporins Allergy Rash Verified 11/28/24 17:56 mahoney (cherries) Allergy Angioedema Verified 11/28/24 17:56 codeine Allergy Rash Verified 11/28/24 17:56 diclofenac (Diclofenac) Allergy Rash Verified 11/28/24 17:56 hydrocodone bitartrate (From Allergy Rash Verified 11/28/24 17:56 Vicodin) hydromorphone HCl (From Allergy Rash Verified 11/28/24 17:56 Dilaudid) lemon Allergy Angioedema Verified 11/28/24 17:56 Penicillins Allergy Anaphylaxis Verified 11/28/24 17:56 Sulfa (Sulfonamide Allergy Rash Verified 11/28/24 17:56 Antibiotics) pear AdvReac NEEDS Verified 11/28/24 17:56 FOLLOW-UP soap AdvReac NEEDS Verified 11/28/24 17:56 FOLLOW-UP Family History Father Heart disease Other Thyroid disorder Surgical History History of partial colectomy History of appendectomy Presence of cardiac pacemaker (09/28/16) History of colectomy Tracheostomy in place Colostomy in place Social History household members: spouse Smoking Status: Former smoker quit date: 08/27/10 pack-years: 45 substance use type: does not use and marijuana ROS ROS ED ROS Narrative See HPI EXAM Physical Exam Narrative Exam Narrative: Vital signs: Reviewed General: Alert and oriented. No acute distress HEENT: Head is normocephalic and atraumatic, sinuses nontender, pupils equal round and reactive. Nares are patent. Oropharynx and throat exams normal. Neck: Supple without lymphadenopathy nontender Cardiovascular: Regular rate and rhythm, no murmurs. No rubs or gallops. Normal S1 and S2 Respiratory: Clear to auscultation bilaterally. No wheezes, rales, rhonchi Abdominal: Soft and nontender to palpation. There is a left-sided ostomy with brown stool. Medially to the ostomy there is a erythematous wound that is draining purulent fluid. There is foul smell. The skin around the wound has no erythema, fluctuance, warmth. It is nontender to palpation. Normal bowel sounds. No guarding or rebound. Extremities: No tenderness. No bruising. Normal range of motion. Normal sensation. Skin: No rash or redness. Neurological: Cranial nerves II through XII are grossly intact. Normal strength and sensation. Normal cerebellar function The rest of the physical exam is unremarkable Const Vital Signs: 11/28/24 17:57 11/28/24 22:00 11/28/24 23:56 Temperature 97.5 F L 98 F Temperature Source Temporal Pulse Rate 63 75 61 Respiratory Rate 18 18 18 Blood Pressure 165/67 H 121/88 H 157/59 H Blood Pressure Mean 99 99 91 Pulse Ox 97 96 99 Oxygen Delivery Method Room Air Room Air MDM MDM MDM Narrative Medical decision making narrative: Patient is a 64-year-old female presenting to the emergency department for a wound check. Patient was seen and examined. Vitals are stable. Patient resting bed comfortably no acute distress. Given the patient's history of a fistula and physical exam findings CT of the abdomen pelvis was ordered to rule out any underlying abscess or fistula formation. CBC with no leukocytosis and chronic anemia of 9.8. CMP with baseline kidney dysfunction otherwise no significant abnormalities. CT of the abdomen and pelvis showsOstomy on the right. Abnormally thickened wall of the sigmoid colon adjacent to the abdominal wall could be the source of the fistula although this is not proven. Robust abnormal thickening and inflammation surrounding the sigmoid colon in the pelvis concerning for severe colitis. Patient was given ciprofloxacin and Flagyl due to allergy of anaphylaxis to penicillins. Given the possible fistula formation noted on CT I discussed with on-call general surgeon, Dr. Ruiz. He agrees that outpatient management with antibiotics and referral to the patient's past general surgeon or wound care is appropriate. Patient's vitals have been stable the entire time she has been here, she appears well and has no significant leukocytosis. I think it is appropriate for the patient to be discharged home on antibiotics for outpatient treatment of her colitis and possible fistula formation. She was sent prescriptions for antibiotics to her pharmacy instructed to take them. She was given wound care follow-up. I recommended that she either follow-up with wound care or her prior surgeon. She was instructed to return to the ED with any abdominal pain, worsening redness or drainage from the site, fevers, chills, nausea, vomiting or generally feeling unwell. Patient discharged from the Emergency Department. I do not feel that the patient's evaluation reveals any acute reason for admission at this time. I instructed them to either follow-up with their primary care physician or promptly return to the Emergency Department for reevaluation should symptoms worsen or new symptoms develop. I explained what symptoms would indicate the need to return to the emergency department. Shared decision making was used. The patient voiced understanding of the treatment plan and is agreeable with it. Clinical impression Colitis Possible fistula Chronic anemia History & Record Review Discussion w/independent historian: Patient and Significant other Lab Data Attestation: I reviewed the patient's lab results. Labs: Laboratory Results - last 24 hr 11/28/24 20:49 WBC 6.3 RBC 3.68 L Hgb 9.8 L Hct 32.3 L MCV 87.8 MCH 26.6 L MCHC 30.3 L RDW Std Deviation 49.1 H RDW Coeff of Gali 15.4 H Plt Count 217 MPV 10.4 Immature Gran % (Auto) 0.600 Neut % (Auto) 65.7 Lymph % (Auto) 21.6 Hemphill % (Auto) 9.4 Eos % (Auto) 2.2 Baso % (Auto) 0.5 Absolute Neuts (auto) 4.1 Absolute Lymphs (auto) 1.36 Nucleated RBC % 0 Sodium 136 Potassium 4.0 Chloride 102 Carbon Dioxide 22.5 Anion Gap 12 BUN 22 H Creatinine 1.45 H Estim Creat Clear Calc 40.24 L Est GFR (MDRD) Non-Af 40 L BUN/Creatinine Ratio 15.2 Glucose 104 H Calcium 9.3 Total Bilirubin 0.24 AST 12 ALT 7 Alkaline Phosphatase 72 Total Protein 7.6 Albumin 3.7 Globulin 3.8 Albumin/Globulin Ratio 1.0 Radiography Diagnostic Testing: Clinical Impression(s) from Imaging Studies Abdomen/Pelvis CT 11/28/24 19:47 IMPRESSION: Ostomy on the right. Abnormally thickened wall of the sigmoid colon adjacent to the abdominal wall could be the source of the fistula although this is not proven. Robust abnormal thickening and inflammation surrounding the sigmoid colon in the pelvis concerning for severe colitis [facility] Discharge Plan Triage Chief Complaint: Wound Check ED Provider: Mounika Dawkins Dx/Rx/DC Orders Clinical Impression: Colitis, Fistula Instructions: Colitis, ED Wound Check (Infection) Prescriptions: New ciprofloxacin HCl [Cipro] 500 mg tablet 500 mg PO BID 10 Days Qty: 20 0RF metronidazole 500 mg tablet 500 mg PO BID 10 Days Qty: 20 0RF No Action glimepiride 4 mg tablet 4 mg PO DAILY 30 Days Qty: 30 Patient Comments: hydrocortisone 2.5 % cream 1 applic TOPICAL DAILY 30 Days Qty: 30 Patient Comments: insulin glargine [Lantus Solostar U-100 Insulin] 100 unit/mL (3 mL) insulin pen 12 unit SC QHS PRN (Reason: hyperglycemia) Patient Comments: pt states she is on a sliding scale at home topiramate 100 mg tablet 100 mg PO BID Patient Comments: 1 tablet every morning melatonin-pyridoxine (vit B6) [Melatonin (with B6)] 1 EACH tablet 2 ea PO QHS omeprazole 20 MG capsule 20 mg PO DAILY pravastatin 40 MG tablet 40 mg PO DAILY fluphenazine HCl 1 MG tablet 1 mg PO QHS tapentadol 75 MG tablet 75 mg PO TID cariprazine 3 MG capsule 3 mg PO QHS guaifenesin 600 MG tablet extended release 12hr 600 mg PO TID magnesium oxide 400 MG tablet 400 mg PO DAILY Patient Comments: TAKE 1 TABLET BY MOUTH EVERY DAY hydrocortisone 2.5 % cream with perineal applicator 1 applic MS QHS PRN (Reason: hemorrhoids) Qty: 30 0RF hyoscyamine sulfate 0.125 mg tablet, sublingual 0.25 mg PO Q6H PRN (Reason: epigastric discomfort) Qty: 12 0RF trazodone 50 mg tablet 50 mg PO QHS PRN (Reason: sleep) Qty: 10 0RF Belsomra 10 mg tablet 20 mg PO DAILY Ingrezza 80 mg capsule 80 mg PO DAILY hyoscyamine sulfate [Levsin/SL] 0.125 mg tablet, sublingual 0.125 mg sublingual Q8H PRN (Reason: dyspepsia) Qty: 20 0RF Primary Care Provider: Vivian Meyer Referrals: Vivian Meyer MD [Primary Care Provider, Internal Medicine] [facility],[place] [facility] [Non-Staff, Wound Care] - 1 Day Activity Restrictions/Additional Instructions: Take the 2 antibiotics as prescribed. Follow-up with the wound care center or your prior surgeon as soon as possible for further management. Your evaluation in the Emergency Department did not reveal any acute reason for admission. However, I want to emphasize that you may be early in the course of a disease process or illness even if it is not present. For this reason you should follow- up within 24 hours for reevaluation with either your primary care physician or if necessary back here in the Emergency Department. You should return to the Emergency Department immediately if your symptoms worsen or new symptoms develop. Print Language: Spanish Disposition Disposition: Home, Self Care Discharge Date/Time: 11/28/24 23:59
== END 2024-11-28 23:59 | disposition home or self-care (01) ==
PROVIDERS: Emergency Provider Student in an Organized Health Care Education/Training Program; PCP Internal Medicine; Visit Provider Student in an Organized Health Care Education/Training Program
DX: K52.9 Noninfective gastroenteritis and colitis, unspecified (principal); J44.9 Chronic obstructive pulmonary disease, unspecified; E10.9 Type 1 diabetes mellitus without complications; D64.9 Anemia, unspecified; K63.2 Fistula of intestine; Z87.891 Personal history of nicotine dependence; Z95.0 Presence of cardiac pacemaker
CPT/HCPCS: 74177; 80053; 85025; 99284; Q9967; A4216

== ENCOUNTER 2024-12-02 14:14 | Outpatient (RCR) | payer MEDICARE, MEDICAID, SELFPAY ==
[2024-12-02 14:30] VITALS: BP 134/75; PULSE 69; RESP 15; TEMP 36.1
--- NOTE | 2024-12-04 08:32 | PCM.WC.HP ---
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 The issue began a couple of years ago when she developed a fistula following a bowel perforation that required an ostomy. Initially, the fistula healed, but it has recently recurred, causing significant discharge and requiring frequent dressing changes. The patient has a history of bowel perforation due to a surgical error during a procedure for colon polyps, which necessitated the creation of an ostomy. The ostomy has been managed at home with guidance from a wound care nurse, but the current fistula has complicated the management. The patient reports that the discharge from the fistula is malodorous and significant, requiring changes of dressings multiple times a day. She has been advised against further surgery due to high risk, and there is a concern about electrolyte imbalances due to the output from the fistula. Patient reports low output from the fistula ROS: - Gastrointestinal: Reports significant malodorous discharge from the fistula. Denies nausea or vomiting. - General: Reports feeling unwell without specific systemic symptoms. Of note patient was recently in the emergency department and worked up for the fistula and this is why she was sent to our office (she was cleared by the ED to go home). Attestation: Documentation on this patient encounter was supported using ambient scribe technology/ voice AI technology. The patient consented to recording for the purpose of documenting the encounter. Provider reviewed content of the generated note prior to signature. [facility] Medical History Schizophrenia Anxiety Depression Diabetes Former smoker Migraines Secondary pulmonary arterial hypertension Bradycardia Paranoid schizophrenia COPD (chronic obstructive pulmonary disease) Asthma Tracheitis Anxiety and depression GERD (gastroesophageal reflux disease) Colon cancer Obesity (BMI 30.0-34.9) Type I diabetes mellitus Hyperlipidemia Hypertension Home Medications ?Medication ?Instructions ?Recorded ?Last Taken ?Type topiramate 100 mg tablet 100 mg PO BID 03/01/17 12/06/18 09:00 History hydrocortisone 2.5 % topical cream 1 applic topical DAILY 30 days ##30 10/31/17 Unknown History insulin glargine 100 unit/mL (3 12 unit subcut QHS PRN 10/31/17 Unknown History mL) subcutaneous pen (Lantus hyperglycemia Solostar U-100 Insulin) glimepiride 4 mg tablet 4 mg PO DAILY 30 days ##30 11/01/17 Unknown History melatonin 5 mg-pyridoxine (vitamin 2 ea PO QHS 11/28/17 Unknown History B6) 1 mg tablet (Melatonin (with B6)) omeprazole 20 mg capsule,delayed 20 mg PO DAILY 12/04/17 12/06/18 09:00 History release cariprazine 3 mg capsule 3 mg PO QHS mental status 12/04/18 Unknown History fluphenazine HCl 1 mg tablet 1 mg PO QHS 12/04/18 Unknown History guaifenesin 600 mg tablet, 600 mg PO TID 12/04/18 12/06/18 09:00 History extended release 12 hr pravastatin 40 mg tablet 40 mg PO DAILY 12/04/18 Unknown History tapentadol 75 mg tablet 75 mg PO TID pain 12/04/18 12/06/18 09:00 History magnesium oxide 400 mg (241.3 mg 400 mg PO DAILY 04/16/19 Unknown History magnesium) tablet hydrocortisone 2.5 % topical cream 1 applic MI QHS PRN hemorrhoids 05/17/21 Unknown Rx with perineal applicator #30 grams hyoscyamine sulfate 0.125 mg 0.25 mg (2 x 0.125 mg) PO Q6H PRN 04/08/23 Unknown Rx sublingual tablet epigastric discomfort #12 tabs trazodone 50 mg tablet 50 mg PO QHS PRN sleep #10 tabs 11/05/23 Unknown Rx hyoscyamine sulfate 0.125 mg 0.125 mg sublingual Q8H PRN 11/20/23 Unknown Rx sublingual tablet (Levsin/SL) dyspepsia #20 tabs suvorexant 10 mg tablet (Belsomra) 20 mg PO DAILY 11/20/23 Unknown History valbenazine 80 mg capsule 80 mg PO DAILY 11/20/23 Unknown History (Ingrezza) ciprofloxacin HCl 500 mg tablet 500 mg PO BID 10 days #20 tabs 11/28/24 Unknown Rx (Cipro) metronidazole 500 mg tablet 500 mg PO BID 10 days #20 tabs 11/28/24 Unknown Rx ramelteon 8 mg tablet 8 mg PO QHS 12/02/24 Unknown History Allergy/AdvReac Type Severity Reaction Status Date / Time azithromycin Allergy Rash Verified 11/28/24 17:56 Cephalosporins Allergy Rash Verified 11/28/24 17:56 mahoney (cherries) Allergy Angioedema Verified 11/28/24 17:56 codeine Allergy Rash Verified 11/28/24 17:56 diclofenac (Diclofenac) Allergy Rash Verified 11/28/24 17:56 hydrocodone bitartrate (From Allergy Rash Verified 11/28/24 17:56 Vicodin) hydromorphone HCl (From Allergy Rash Verified 11/28/24 17:56 Dilaudid) lemon Allergy Angioedema Verified 11/28/24 17:56 Penicillins Allergy Anaphylaxis Verified 11/28/24 17:56 Sulfa (Sulfonamide Allergy Rash Verified 11/28/24 17:56 Antibiotics) pear AdvReac NEEDS Verified 11/28/24 17:56 FOLLOW-UP soap AdvReac NEEDS Verified 11/28/24 17:56 FOLLOW-UP Family History Father Heart disease Other Thyroid disorder Surgical History History of partial colectomy History of appendectomy Presence of cardiac pacemaker (09/28/16) History of colectomy Tracheostomy in place Colostomy in place Social History household members: spouse Smoking Status: Former smoker quit date: 08/27/10 pack-years: 45 substance use type: does not use and marijuana Physical Exam Narrative No specific palpable hernias but a central bulging There is an ostomy on the left side of the abdomen with a cutaneous fistula in the midline epigastric region There is minimal output from the fistula Charges/Coding Visit Charges Office Visits / Consults: 17315 OV L3 New 30min Assessment/Plan Assessment/Plan (1) Fistula: CODE(S): L98.8 - Other specified disorders of the skin and subcutaneous tissue PLAN: Assessment and Plan 64-year-old female with a history of bowel perforation presenting with an enterocutaneous fistula. The fistula has recurred, producing significant discharge and posing a risk for electrolyte imbalance. Surgical intervention is not recommended by previous general surgery consult due to high risk, necessitating conservative management and monitoring of electrolyte levels. 1. Enterocutaneous Fistula My plan is to refer the patient to a general surgeon for management of the fistula and potential electrolyte abnormalities associated with an enterocutaneous fistula. The patient should be monitored for electrolyte imbalances, and appropriate electrolyte replacement should be considered. Regular follow-up with a general surgeon is recommended to assess the fistula and manage any complications. We are placing an urgent referral to general surgery Counseled the patient and her extensively about my concerns and their need for follow-up immediately with her PCP and the general surgery consultation. They were in agreement PLAN: Plan - Monitor the fistula for any changes in discharge or signs of infection. - Follow up with your general surgeon as scheduled to ensure proper management of the fistula. - Maintain hydration and consider electrolyte replacement as advised by your healthcare provider.
--- NOTE | 2024-12-04 14:56 | WC ---
PHOTO-ABD 12/02/24
== END 2024-12-03 23:59 | disposition home or self-care (01) ==
LOC: WC 14:14
PROVIDERS: PCP Internal Medicine; Referring Provider Internal Medicine; Visit Provider Surgery Plastic and Reconstructive Surgery
DX: K63.2 Fistula of intestine (principal); J44.9 Chronic obstructive pulmonary disease, unspecified; E10.9 Type 1 diabetes mellitus without complications; Z79.4 Long term (current) use of insulin; L98.9 Disorder of the skin and subcutaneous tissue, unspecified; K21.9 Gastro-esophageal reflux disease without esophagitis; Z87.891 Personal history of nicotine dependence; E78.5 Hyperlipidemia, unspecified; I10 Essential (primary) hypertension; Z79.84 Long term (current) use of oral hypoglycemic drugs; Z79.899 Other long term (current) drug therapy
CPT/HCPCS: 99214; G0463